=== PATIENT | male | born 1945 | race Caucasian/White ===

== ENCOUNTER → 2016-04-23 | Outpatient (CLI) | payer MEDICARE, BC | END | disposition home or self-care (01) | LOC: LABWHC1 08:52 | PROVIDERS: ATTEND Internal Medicine | DX: N40.1 Benign prostatic hyperplasia with lower urinary tract symptoms (principal) | CPT/HCPCS: 36415; 84153 ==

== ENCOUNTER 2016-05-01 11:22 | Day surgery (SDC) | payer MEDICARE, BC ==
[2016-04-30 10:16] VITALS: BMI 32.3
[~2016-05-01 11:22] MED LIST: LACTATED RINGERS 1,000 ML IV SCH
[2016-05-01 12:32] VITALS: TEMP 98
[2016-05-01] MEDS ORDERED: LIDOCAINE 1% 20 ML VIAL (10MG/ML) FOR IV START INTRADERMA ONE (12:32)
[2016-05-01] MEDS ORDERED: LACTATED RINGERS 1,000 ML IV ONE (12:32)
[2016-05-01 12:38] LABS: Glucose,Whole Blood 140 mg/dL (75-99)
[2016-05-01] MEDS ORDERED: MIDAZOLAM 2 MG/2 ML VIAL ONE (13:20)
[2016-05-01] MEDS ORDERED: fentaNYL (PF) 50 MCG/ML 2 ML AMP ONE (13:20)
[2016-05-01] MEDS ORDERED: TRIAMCINOLONE ACETONIDE 40 MG/ML 1 ML VIAL ONE (13:20)
--- NOTE | 2016-05-01 13:35 | P.PCN ---
Date of Procedure: 05/01/16 Procedure(s) Performed: PREOPERATIVE DIAGNOSIS : 1- Lumbar spondylosis with Facet Arthropathy without myelopathy . 2- Lumber degenerative disc disease POSTOPERATIVE DIAGNOSIS: 1- Lumbar spondylosis with Facet Arthropathy without myelopathy . 2- Lumber degenerative disc disease PROCEDURE: Diagnostic Right L3 -4 , L4 -5 , and L5-S1 medial branch block under fluoroscopy #1 ANESTHESIA: Local with 1% lidocaine; IV sedation with Versed 2 mg and Fentanyl 50 mcg. EBL: Minimal COMPLICATION: None. IV FLUIDS: 100 mL of normal saline. PROCEDURE INDICATION: Chronic low back pain secondary to Facet arthropathy unresponsive to conservative treatment. PROCEDURE DESCRIPTION: the patient was seen and identified in the preop holding area , risks and benefits and possible complications of the procedure and alternative were discussed with the patient, and the patient agreed to proceed with the procedure and signed the consent IV was started and vital signs monitored during the procedure and fluoroscopy was used to maximize the benefit and accuracy of the needle placement, and sedation was given to decrease patient anxiety, patient was taken to the procedure room and placed in prone position vital signs monitored in the back prepped with chlorhexidine X3 then under strict sterile technique using a right oblique fluoroscopy ,the junction of the transverse process and the superior articulating process of the right L3- 4 , L4- 5, and L5-S1 vertebra which corresponding to the fluoroscopy image of the eye of the Donavon dog on the block side for the medial branches and subsequently , after local infiltration of skin and subcu tissuies with lidocaine 1% one mL at each level ,then 22- gauge Quincke-type needles , 3 needle was used , each one of them placed at the junction of the base of the transverse process and the superior articular process at the appropriate level, and the needle was advanced until the periosteum contacted, needle placement confirmed with AP oblique and lateral view and after appropriate needle placement confirmed, and after negative aspiration for heme and CSF and there was no paresthesia 1-1/2 mL of Marcaine 0.5% mixed with 40 mg Kenalog , then half mL injected at each level after negative aspiration, the needle subsequently removed . At the end of the procedure and the needles removed and a bandage applied after the skin was cleaned the cleaning solution patient taken to recovery room in stable condition and monitors in the recovery room for 20-30 minutes and discharged home in stable condition after discharge criteria met and patient will follow up with the pain clinic in 2-4 weeks
[2016-05-01] MEDS ORDERED: IV FLUID CONTINUATION 1,000 ML IV ONE (13:44)
[2016-05-01 13:47] VITALS: RESP 16
[2016-05-01 13:59] VITALS: BP 123/75; PULSE 57
[2016-05-01 14:08] LABS: Glucose,Whole Blood 133 mg/dL (75-99)
--- NOTE | 2016-05-01 14:12 | FL ---
EXAMINATION TYPE: FL guided pain mgmt statistic DATE OF EXAM: 05/01/2016 1:38 PM COMPARISON: NONE HISTORY: Back pain Fluoroscopy support supplied to the referring clinician. See dictated report from anesthesia, 3 seco nds fluoroscopy time, 2 intraoperative C-arm images document the procedure
== END 2016-05-01 14:25 | disposition home or self-care (01) ==
LOC: ORPAIN 11:22
PROVIDERS: ATTEND Specialist
DX: G89.29 Other chronic pain (principal); M46.86 Other specified inflammatory spondylopathies, lumbar region; M47.816 Spondylosis without myelopathy or radiculopathy, lumbar region; M51.36 Other intervertebral disc degeneration, lumbar region
CPT/HCPCS: 64493; 64494; 64495; J2250; J3301; J3010

== ENCOUNTER → 2016-05-07 | Outpatient (CLI) | payer MEDICARE, BC ==
[2016-05-07 08:57] LABS: ALT 39 U/L (21-72); AST 19 U/L (17-59); Alkaline Phosphatase 66 U/L (38-126); Anion Gap 12 mmol/L; Blood Urea Nitrogen 21 mg/dL (9-20); Calcium 9.5 mg/dL (8.4-10.2); Carbon Dioxide 27 mmol/L (22-30); Chloride 102 mmol/L (98-107); Cholesterol 147 mg/dL (<200); Creatine Kinase 97 U/L (55-170); Glucose 140 mg/dL (74-99); HDL Cholesterol 49 mg/dL (40-60); Non-African American GFR(MDRD) >60 (>60 ml/min/1.73 sqM); Potassium 4.8 mmol/L (3.5-5.1); Sodium 141 mmol/L (137-145); Total Bilirubin 1.1 mg/dL (0.2-1.3); Total Protein 7.4 g/dL (6.3-8.2); Triglycerides 161 mg/dL (<150)
[2016-05-07 09:28] LABS: Hepatitis B Core IgM Index 0.04
[2016-05-07 09:40] LABS: Hepatitis C Virus IgG Index 0.01
[2016-05-07 09:43] LABS: Basophils % (A) 0 %; CH 30.7; Eosinophils % (A) 0 %; HCT 50.3 % (39.0-53.0); HGB 16.1 gm/dL (13.0-17.5); Luc # (Auto) 0.15; Luc % (Auto) 2; Lymphocytes # (A) 2.6 k/uL (1.0-4.8); Lymphocytes % (A) 26 %; MCHC 32.1 g/dL (31.0-37.0); MCV 93.5 fL (80.0-100.0); Mean Platelet Volume 9.9; Monocytes # (A) 0.7 k/uL (0-1.0); Monocytes % (A) 7 %; Neutrophils # (A) 6.5 k/uL (1.3-7.7); Neutrophils % (A) 65 %; RBC 5.38 m/uL (4.30-5.90); RDW 13.8 % (11.5-15.5); WBC (Perox) 10.43
[2016-05-07 09:51] LABS: Hepatitis B Surface Antibody Negative (Negative); Hepatitis C Virus IgG Ab Negative (Negative)
[2016-05-07 10:08] LABS: Manual Review Performed; RBC Morphology Normal
[2016-05-07 10:56] LABS: Hemoglobin A1C 7.1 % (4.2-6.1)
[2016-05-08 17:15] LABS: LOG HIV Copies/mL <1.60 (<1.60)
== END | disposition home or self-care (01) ==
LOC: LABWHC1 07:31
PROVIDERS: ATTEND Internal Medicine
DX: I10 Essential (primary) hypertension (principal); E78.00 Pure hypercholesterolemia, unspecified; E11.9 Type 2 diabetes mellitus without complications; K75.9 Inflammatory liver disease, unspecified
CPT/HCPCS: 36415; 80053; 80061; 82550; 83036; 84443; 85025; 86704; 86705; 86706; 86708; 86803; 87536

== ENCOUNTER → 2016-05-14 | Outpatient (CLI) | payer MEDICARE, BC ==
[2016-05-14 10:07] LABS: Blood Urea Nitrogen 31 mg/dL (9-20); Non-African American GFR(MDRD) >60 (>60 ml/min/1.73 sqM)
--- NOTE | 2016-05-14 12:20 | CT ---
EXAMINATION TYPE: CT pelvis w con DATE OF EXAM: 05/14/2016 12:01 PM COMPARISON: CT right hip 11/14/2012 HISTORY: Patient complains of elevated PSA. CT DLP: 1044.5 mGycm Automated exposure control for dose reduction was used. CONTRAST: Performed with IV Contrast, patient injected with 100 mL of Omnipaque 300. FINDINGS: There is a mesenteric fat containing periumbilical hernia present. No loops of bowel are involved. Co rtical renal cysts are in the mid portions of the bilateral kidneys. This cannot be well evaluated on the left and a simple cyst cannot be confirmed. On the right this measures 1.7 cm and 11 Hounsfield units. Vascular calcifications within the aorta. Inferior vena cava is normal. External iliac common femoral arteries appear normal. Vascular calcification is present. Fat-containing inguinal hernias are prese nt, larger on the right. Small lymph nodes in the right inguinal region. There is diverticular change within the sigmoid colon. Small bowel loops distended with oral contrast appear normal. The appendix is not clearly identified. Urinary bladder is unremarkable. Prostate is prominent and contains scattered calcification. This may have enlarged from the right hip CT of 11/14/2012. Tiny bone island may be within the posterior left acetabulum. Tiny bone islands in the lateral right shoulder ramus there is a 1.0 cm sclerotic area within the medial right ischial ramus. Facet degenera tive changes are present. IMPRESSION: 1. ENLARGED PROSTATE WITH SCATTERED CALCIFICATION. 2. A FEW SMALL BONE ISLANDS. SCLEROTIC METASTASIS WITHIN THE RIGHT ILIUM AT SACROILIAC JOINT IS NOT E XCLUDED
--- NOTE | 2016-05-14 14:57 | NM ---
EXAMINATION TYPE: NM bone scan whole body DATE OF EXAM: 05/14/2016 2:32 PM COMPARISON: CT pelvis same date, MR lumbar spine 23 January 2016 HISTORY: Prostate carcinoma Delayed whole-body scanning was performed following the injection of 27.49 mCi Tc 99m MDP. Images ac quired 4.5 hours post injection. FINDINGS: There is uptake present in the cervical spine, bilateral shoulders, lumbar spine, ankles, feet, knees , wrists, hands, right hip and elbows which is likely degenerative. Soft tissue uptake is normal. Pos terior rib uptake at the 8th through 10th ribs on the left is likely due to old fractures, correlate. There is a spinal curvature as noted on the patient's lumbar MRI. IMPRESSION: Degenerative changes. Old trauma.
== END | disposition home or self-care (01) ==
LOC: RADCTMAIN 09:18
PROVIDERS: ATTEND Urology
DX: C61 Malignant neoplasm of prostate (principal); M89.8X9 Other specified disorders of bone, unspecified site
CPT/HCPCS: 82565; 84520; 72193; 36415; 78306; A9503; Q9967

== ENCOUNTER 2016-05-21 06:55 | Day surgery (SDC) | payer MEDICARE, BC ==
[2016-05-20 12:07] VITALS: BMI 30.9
[2016-05-21] MEDS ORDERED: LACTATED RINGERS 1,000 ML IV SCH (07:00)
[2016-05-21 07:32] VITALS: RESP 18; TEMP 98.4
[2016-05-21 07:43] LABS: Glucose,Whole Blood 128 mg/dL (75-99)
[2016-05-21] MEDS ORDERED: MIDAZOLAM 2 MG/2 ML VIAL ONE (08:03)
[2016-05-21] MEDS ORDERED: TRIAMCINOLONE ACETONIDE 40 MG/ML 1 ML VIAL ONE (08:03)
[2016-05-21] MEDS ORDERED: BUPIVACAINE (PF) 0.5% 30 ML VIAL ONE (08:03)
--- NOTE | 2016-05-21 08:23 | P.PCN ---
Date of Procedure: 05/21/16 Procedure(s) Performed: PREOPERATIVE DIAGNOSIS : 1- Lumbar spondylosis with Facet Arthropathy without myelopathy . 2- Lumber degenerative disc disease POSTOPERATIVE DIAGNOSIS: 1- Lumbar spondylosis with Facet Arthropathy without myelopathy . 2- Lumber degenerative disc disease PROCEDURE: Diagnostic right side L3 -4 , L4 -5 , and L5-S1 medial branch block under fluoroscopy ANESTHESIA: Local with 1% lidocaine; IV sedation with Versed 2 mg and Fentanyl 50 mcg. EBL: Minimal COMPLICATION: None. IV FLUIDS: 100 mL of normal saline. PROCEDURE INDICATION: Chronic low back pain secondary to Facet arthropathy unresponsive to conservative treatment. PROCEDURE DESCRIPTION: the patient was seen and identified in the preop holding area , risks and benefits and possible complications of the procedure and alternative were discussed with the patient, and the patient agreed to proceed with the procedure and signed the consent IV was started and vital signs monitored during the procedure and fluoroscopy was used to maximize the benefit and accuracy of the needle placement, and sedation was given to decrease patient anxiety, patient was taken to the procedure room and placed in prone position vital signs monitored in the back prepped with chlorhexidine X3 then under strict sterile technique using a right oblique fluoroscopy ,the junction of the transverse process and the superior articulating process of the right L3- 4 , L4- 5, and L5-S1 vertebra which corresponding to the fluoroscopy image of the eye of the Donavon dog on the block side for the medial branches and subsequently , after local infiltration of skin and subcu tissuies with lidocaine 1% one mL at each level ,then 22- gauge Quincke-type needles , 3 needle was used , each one of them placed at the junction of the base of the transverse process and the superior articular process at the appropriate level, and the needle was advanced until the periosteum contacted, needle placement confirmed with AP oblique and lateral view and after appropriate needle placement confirmed, and after negative aspiration for heme and CSF and there was no paresthesia 1-1/2 mL of Marcaine 0.5% mixed with 40 mg Kenalog , then half mL injected at each level after negative aspiration the needle subsequently removed intact At the end of the procedure and the needles removed and a bandage applied after the skin was cleaned the cleaning solution patient taken to recovery room in stable condition and monitors in the recovery room for 20-30 minutes and discharged home in stable condition after discharge criteria met and patient will follow up with the pain clinic in 2-4 weeks
[2016-05-21] MEDS ORDERED: IV FLUID CONTINUATION 1,000 ML IV ONE (08:28)
[2016-05-21 08:46] VITALS: BP 118/75; PULSE 60
--- NOTE | 2016-05-21 08:47 | FL ---
EXAMINATION TYPE: FL guided pain mgmt statistic DATE OF EXAM: 05/21/2016 8:35 AM HISTORY: Flouroscopy time 3 seconds of fluoroscopy provided. IMPRESSION: 1. Fluoroscopy time.
== END 2016-05-21 09:10 | disposition home or self-care (01) ==
LOC: ORPAIN 06:55
PROVIDERS: ATTEND Specialist
DX: M47.816 Spondylosis without myelopathy or radiculopathy, lumbar region (principal); M46.96 Unspecified inflammatory spondylopathy, lumbar region; M51.36 Other intervertebral disc degeneration, lumbar region; G89.29 Other chronic pain
CPT/HCPCS: 64493; 64494; 64495; J2250; J3301

== ENCOUNTER 2016-06-15 08:01 | Day surgery (SDC) | payer MEDICARE, BC ==
[2016-06-12 10:40] VITALS: BMI 29.7
[2016-06-15 09:24] VITALS: RESP 16; TEMP 97.9
[2016-06-15 09:35] LABS: Glucose,Whole Blood 115 mg/dL (75-99)
[2016-06-15] MEDS ORDERED: LIDOCAINE 1% 20 ML VIAL (10MG/ML) FOR IV START INTRADERMA ONE (09:36)
[2016-06-15] MEDS ORDERED: fentaNYL (PF) 50 MCG/ML 2 ML AMP ONE (09:41)
[2016-06-15] MEDS ORDERED: TRIAMCINOLONE ACETONIDE 40 MG/ML 1 ML VIAL ONE (09:41)
[2016-06-15] MEDS ORDERED: MIDAZOLAM 2 MG/2 ML VIAL ONE (09:41)
--- NOTE | 2016-06-15 10:09 | P.PCN ---
Date of Procedure: 06/15/16 Surgeon: Chris Pavon Pathology: none sent Condition: stable Disposition: PACU Description of Procedure: PREOPERATIVE DIAGNOSIS: Lumbar spondylosis without myelopathy and facet arthropathy POSTOPERATIVE DIAGNOSIS: Lumbar spondylosis without myelopathy and facet arthropathy PROCEDURES: Right Radiofrequency thermocoagulation, L3, L4, and L5 medial branch , with fluoroscopic guidance. ANESTHESIA: 1% lidocaine plain; Conscious sedation with versed/fentanyl EBL: Minimal PROCEDURE INDICATION: The patient with low back pain secondary to lumbar arthropathy who had more than 50% relief of pain with previous diagnostic lumbar medial branch block with bupivacaine. Patient presents for RFA today; no use of blood thinners. PROCEDURE DESCRIPTION / TECHNIQUE: The patient was seen and identified in the preoperative area. Risks, benefits, complications, and alternatives were discussed with the patient (including but not limited to incomplete pain relief , bleeding, infection, nerve damage, and allergies to medications), the patient agreed to proceed with the procedure and signed the consent after all questions were answered. Patient was taken to the OR and time out was completed to verify proper patient , position, laterality of pain, and allergies. Pt was placed in the prone position. IV was started. Vital signs remained stable throughout the procedure. A pillow was placed under the patients chest to decrease lordosis. The lumbosacral area was prepped and draped in the usual sterile fashion. Vital signs were closely monitored during the procedure. Conscious sedation was used during the procedure to decrease patients anxiety. Using AP and then oblique fluoroscopy, the eye of the Donavon dog corresponding to the connection between the superior and transverse articular processes of right L4, L5 and top of the sacrum were identified, marked, and localized with 1% lidocaine. Subsequently, a 20 gauge, 100-mm radiofrequency cannula with a 10-mm active tip was advanced guided by fluoroscopy to each of the eyes of the Donavon dog at right L3, L4, and L5 medial branches. Each site then underwent sensory testing at 50 Hz and 0 to 1 volt and motor testing at 2 Hz and 0 to 3 volt with local stimulation, but no radicular symptoms down the legs. Thereafter the right L3, L4, and L5 medial branch sites underwent radiofrequency thermocoagulation at 80 degrees Celsius for 90 seconds after injecting 0.5 ml of PF lidocaine 1%. After thermocoagulation, 1 ml of the block solution containing Kenalog 40 mg and 2 mL of preservative-free normal saline was injected at the right L3, L4, and L5 medial branch levels after negative aspiration of CSF and blood and with no paresthesias. Cannulas were retracted while injecting lidocaine 1% until the needles were removed. At the end of the procedure, the skin was cleansed and bandages were applied. COMPLICATIONS: No acute complications. DISPOSITION / PLANS: The patient was placed in a supine position and transferred to the recovery area in a stable condition for observation and was discharged from the recovery room after meeting discharge criteria. Home discharge instructions given to the patient by the staff. The patient was reexamined prior to discharge. The patient will schedule a follow up in the clinic in 2-4 weeks.
[2016-06-15] MEDS ORDERED: IV FLUID CONTINUATION 1,000 ML IV ONE (10:11)
[2016-06-15 10:33] VITALS: BP 118/72; PULSE 61
--- NOTE | 2016-06-15 12:00 | FL ---
Fluoroscopy HISTORY: Pain 23 seconds fluoroscopy time supplied to the referring clinician. 4 intraoperative C-arm images docum ent the procedure. See dictated report from anesthesia.
== END 2016-06-15 10:44 | disposition home or self-care (01) ==
LOC: ORPAIN 08:01
PROVIDERS: ATTEND Anesthesiology
DX: M47.816 Spondylosis without myelopathy or radiculopathy, lumbar region (principal); M46.96 Unspecified inflammatory spondylopathy, lumbar region
CPT/HCPCS: 64635; 64636; 99152; J2250; J3301; J3010

== ENCOUNTER 2016-07-05 09:47 | Emergency (ER) | payer MEDICARE, BC ==
[2016-07-05] MEDS ORDERED: ONDANSETRON 4 MG/2 ML VIAL IVP STA (10:20)
[2016-07-05] MEDS ORDERED: MORPHINE SULFATE 2 MG/ML SYRINGE IVP ONE (10:20)
[2016-07-05] MEDS ORDERED: RX INFO: IV CONTRAST WAS GIVEN 1 EACH MISC MISCELLANE PRN (10:20)
[2016-07-05] MEDS ORDERED: DIPH,PERTUS(ACELL)TETVAC-LF 0.5 ML VIAL IM ONE (10:20)
--- NOTE | 2016-07-05 10:28 | ED ---
Trauma HPI - General Chief Complaint: Extremity Injury, Upper Stated Complaint: RT SIDE RIB PAIN FROM FALL HITTING TV STAND Source: patient Mode of arrival: ambulatory Limitations: no limitations - History of Present Illness Initial Comments: Patient is a pleasant 70-year-old male who presents for evaluation after a fall from a 2 foot stepladder. Past medical history as below. Patient stated that he was replacing a light fixture. He walked up a step stool with a leg fracture in his hand he looked up he became dizzy and fell backwards striking a TV table and landing on a carpeted surface. There is a small abrasion to the right face next to his eye. There was no loss of consciousness. After the fall he had pain to his right chest. He is able to get up after resting briefly and was ambulatory after. He states that it is hard to breathe secondary to the pain to the right chest. He is not on an aspirin or blood thinner. He denies fever, chills, headaches, changes in vision, URI symptoms, cough, nausea, vomiting, diarrhea, abdominal pain, pain or burning with urination. - Related Data Home Medications Medication Instructions Recorded Confirmed HYDROcodone/APAP 10-325MG [[place] 10 mg PO Q6H PRN 08/28/13 07/05/16 10-325] Multivitamin/Iron/Folic Acid 1 tab PO DAILY 08/28/13 07/05/16 [Centrum Complete Multivit Tab] Atorvastatin Calcium [Lipitor] 40 mg PO QAM 11/01/14 07/05/16 Naproxen Sodium [Aleve] 220 mg PO BID PRN 08/12/15 07/05/16 amLODIPine BESYLATE/BENAZEPRIL 1 tab PO DAILY 10/29/15 07/05/16 [Lotrel 5-20 mg Capsule] Bisoprolol Fumarate 10 mg PO DAILY 11/26/15 07/05/16 sitaGLIPtin PHOS/metFORMIN HCL 1 tab PO DAILY 11/26/15 07/05/16 [Janumet 50-500 mg Tablet] Previous Rx's Medication Instructions Recorded Cephalexin [Keflex] 500 mg PO Q12HR 7 Days 07/05/16 Docusate [Colace] 100 mg PO DAILY 10 Days 07/05/16 HYDROcodone/APAP 5-325MG [[place] 1 - 2 tab PO Q6HR PRN #20 tab 07/05/16 5-325] Allergies Allergy/AdvReac Type Severity Reaction Status Date / Time No Known Allergies Allergy Verified 07/05/16 11:34 Review of Systems ROS Statement: Those systems with pertinent positive or pertinent negative responses have been documented in the HPI. ROS Other: All systems not noted in ROS Statement are negative. Past Medical History Past Medical History: Coronary Artery Disease (CAD), Diabetes Mellitus, GERD/ Reflux, Hyperlipidemia, Hypertension, Osteoarthritis (OA), Prostate Disorder Additional Past Medical History / Comment(s): 5 Herniated disc in neck causing headaches & numbness in arm- NOW LOWER BACK PAIN- NUMBNESS FROM LT ANKLE DOWN. hx 4 fx ribs History of Any Multi-Drug Resistant Organisms: None Reported Past Surgical History: Heart Catheterization With Stent, Orthopedic Surgery, Prostate Surgery Additional Past Surgical History / Comment(s): PROSTATE BX., LT. KNEE ARTHROSCOPY X 2, CERVICAL FUSION, COLONOSCOPY. ÁNGEL. CATARTACTS, Past Anesthesia/Blood Transfusion Reactions: No Reported Reaction Date of Last Stent Placement:: 1999 Past Psychological History: Anxiety, Depression Smoking Status: Former smoker Past Alcohol Use History: None Reported Additional Past Alcohol Use History / Comment(s): QUIT SMOKING 1984, "light smoker" Past Drug Use History: None Reported - Past Family History Mother Family Medical History: Cancer Additional Family Medical History / Comment(s): UTERINE General Exam Limitations: no limitations General appearance: alert, in no apparent distress, other (No acute distress.) Head exam: Present: normocephalic, other (Abrasion to the lateral right eye.) Eye exam: Present: normal appearance, PERRL, EOMI. Absent: scleral icterus, conjunctival injection, periorbital swelling ENT exam: Present: normal exam, mucous membranes moist Neck exam: Present: normal inspection, other (No midline tenderness. Cleared C- spine clinically. Removed from c-collar.). Absent: tenderness, meningismus, lymphadenopathy Respiratory exam: Present: normal lung sounds bilaterally, other (Clear breath sounds bilaterally. He has pain with palpation on the right rib cage. No conversational dyspnea. No hypoxia.). Absent: respiratory distress, wheezes, rales, rhonchi, stridor Cardiovascular Exam: Present: regular rate, normal rhythm, normal heart sounds, other (Normal S1 and S2. Distal pulses intact.). Absent: systolic murmur, diastolic murmur, rubs, gallop, clicks GI/Abdominal exam: Present: soft, tenderness, normal bowel sounds, other ( Patient has some generalized tenderness to palpation of his abdomen. He states that it is not painful and he refers to his right chest when I palpate his abdomen. There is no peritoneal signs.). Absent: distended, guarding, rebound , rigid Extremities exam: Present: normal inspection, full ROM, normal capillary refill. Absent: tenderness, pedal edema, joint swelling, calf tenderness Back exam: Present: normal inspection, tenderness, other (There is pain with palpation T4 to T11. No significant pain with palpation of the cervical spine of the lumbar spine.) Neurological exam: Present: alert, oriented X3, CN II-XII intact, other ( Cranial nerves II through XII grossly intact without focal neurological deficits. Mentation is appropriate. Alert and oriented 3. GCS 15. Moves all 4 extremities.) Psychiatric exam: Present: normal affect, normal mood Skin exam: Present: warm, dry, intact, normal color, other (There is a linear laceration to his right upper back. Roughly 4-5 cm in length.). Absent: rash Course Vital Signs 07/05/16 07/05/16 07/05/16 09:54 12:25 13:14 Temperature 97.4 F L 97.4 F L 97.9 F Pulse Rate 77 64 65 Respiratory 24 16 18 Rate Blood Pressure 164/95 127/74 128/76 O2 Sat by Pulse 95 95 97 Oximetry 07/05/16 15:35 Temperature 97.3 F L Pulse Rate 73 Respiratory 18 Rate Blood Pressure 141/75 O2 Sat by Pulse 96 Oximetry Medical Decision Making - Medical Decision Making Patient resents for evaluation after mechanical fall from a 2 foot stepladder. No aspirins or thinners. No loss of consciousness or neurological deficits at this time. Concern for trauma to the chest. We'll order CT brain and cervical spine. We'll also order CT chest abdomen and pelvis with recon to the thoracic spine. Trauma labs with EKG and urinalysis. Morphine. Zofran. Tdap. 1038: Reviewed EKG. Normal sinus rhythm without ST changes. Heart rate 70. OR 170. QRS 82. QTc 425. No ST changes. 1108: Reviewed initial labs. Within normal limits. No elevated liver enzymes. Awaiting CT imaging. 1321: Delay in getting images sent. Reviewed images myself. Awaiting final reading by radiologist. 1402: Radiologist reviewed CT cervical spine and CT brain. No acute fracture dislocation of the cervical spine. No bleed in the brain. 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 Awaiting for CT reads of the chest abdomen and pelvis with recon's of the thoracic spine. 1445: Reviewed rest of CT imaging. There appears to be a questionable nondisplaced right 11th rib fracture. No other acute injury noted. Discussed all findings with the patient. Thoroughly irrigated his superficial laceration/ skin abrasion. Repaired with Steri-Strips and Dermabond as it was not deep. Tolerated well. Discussed that he has a single rib fracture on the right in the area of trauma. Stable for discharge home with pain medications. We'll alternate [place] and Motrin. We'll also provide an incentive spirometer with teaching prior to discharge. Will use 10 times an hour. We'll also provide a stool softener. We'll also discharge with a short course of Keflex for the laceration. Patient has follow-up with his primary care physician tomorrow. Because of which, feel comfortable letting the patient go home as he has close reevaluation within 24 hours. Discussed signs and symptoms of cellulitis and severe infection. Will return immediately if he develops any. Also discussed rest at length rib fracture care and the importance of preventing atelectasis/ pneumonia with incentive spirometry. Patient voiced understanding. 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 It was noted on previous CT imaging as well. Encouraged to discuss with his primary care physician tomorrow with possible outpatient evaluation by neurosurgery if they feel it is appropriate. Patient was able to repeat the plan. Comfortable with discharge home and will go see his primary care physician at his regular scheduled appointment tomorrow. All questions answered. - Lab Data Result diagrams: 07/05/16 10:30 07/05/16 10:30 Lab Results 07/05/16 07/05/16 07/05/16 Range/Units 10:30 10:30 10:30 WBC 7.9 (3.8-10.6) k/uL RBC 5.35 (4.30-5.90) m/uL Hgb 16.2 (13.0-17.5) gm/dL Hct 49.2 (39.0-53.0) % MCV 92.0 (80.0-100.0) fL MCH 30.3 (25.0-35.0) pg MCHC 32.9 (31.0-37.0) g/dL RDW 14.2 (11.5-15.5) % Plt Count 280 D (150-450) k/uL Neutrophils % 68 % Lymphocytes % 24 % Monocytes % 6 % Eosinophils % 0 % Basophils % 0 % Neutrophils # 5.4 (1.3-7.7) k/uL Lymphocytes # 1.9 (1.0-4.8) k/uL Monocytes # 0.4 (0-1.0) k/uL Eosinophils # 0.0 (0-0.7) k/uL Basophils # 0.0 (0-0.2) k/uL Sodium 141 (137-145) mmol/L Potassium 4.7 (3.5-5.1) mmol/L Chloride 102 (98-107) mmol/L Carbon Dioxide 25 (22-30) mmol/L Anion Gap 14 mmol/L BUN 19 (9-20) mg/dL Creatinine 0.93 (0.66-1.25) mg/dL Est GFR (MDRD) Af Amer >60 (>60 ml/min/1.73 sqM) Est GFR (MDRD) Non-Af >60 (>60 ml/min/1.73 sqM) Glucose 200 H (74-99) mg/dL Calcium 9.8 (8.4-10.2) mg/dL Total Bilirubin 0.9 (0.2-1.3) mg/dL AST 23 (17-59) U/L ALT 48 (21-72) U/L Alkaline Phosphatase 72 (38-126) U/L Troponin I <0.012 (0.000-0.034) ng/mL Total Protein 7.5 (6.3-8.2) g/dL Albumin 4.4 (3.5-5.0) g/dL Urine Color Urine Appearance (Clear) Urine pH (5.0-8.0) Ur Specific [place] (1.001-1.035) Urine Protein (Negative) Urine Glucose (UA) (Negative) Urine Ketones (Negative) Urine Blood (Negative) Urine Nitrite (Negative) Urine Bilirubin (Negative) Urine Urobilinogen (<2.0) mg/dL Ur Leukocyte Esterase (Negative) Urine RBC (0-5) /hpf Urine WBC (0-5) /hpf Ur Squamous Epith Cells (0-4) /hpf Urine Bacteria (None) /hpf Hyaline Casts (0-2) /lpf Urine Mucus (None) /hpf 07/05/16 Range/Units 11:52 WBC (3.8-10.6) k/uL RBC (4.30-5.90) m/uL Hgb (13.0-17.5) gm/dL Hct (39.0-53.0) % MCV (80.0-100.0) fL MCH (25.0-35.0) pg MCHC (31.0-37.0) g/dL RDW (11.5-15.5) % Plt Count (150-450) k/uL Neutrophils % % Lymphocytes % % Monocytes % % Eosinophils % % Basophils % % Neutrophils # (1.3-7.7) k/uL Lymphocytes # (1.0-4.8) k/uL Monocytes # (0-1.0) k/uL Eosinophils # (0-0.7) k/uL Basophils # (0-0.2) k/uL Sodium (137-145) mmol/L Potassium (3.5-5.1) mmol/L Chloride (98-107) mmol/L Carbon Dioxide (22-30) mmol/L Anion Gap mmol/L BUN (9-20) mg/dL Creatinine (0.66-1.25) mg/dL Est GFR (MDRD) Af Amer (>60 ml/min/1.73 sqM) Est GFR (MDRD) Non-Af (>60 ml/min/1.73 sqM) Glucose (74-99) mg/dL Calcium (8.4-10.2) mg/dL Total Bilirubin (0.2-1.3) mg/dL AST (17-59) U/L ALT (21-72) U/L Alkaline Phosphatase (38-126) U/L Troponin I (0.000-0.034) ng/mL Total Protein (6.3-8.2) g/dL Albumin (3.5-5.0) g/dL Urine Color Yellow Urine Appearance Cloudy (Clear) Urine pH 5.0 (5.0-8.0) Ur Specific [place] 1.022 (1.001-1.035) Urine Protein 1+ H (Negative) Urine Glucose (UA) Trace H (Negative) Urine Ketones Negative (Negative) Urine Blood Negative (Negative) Urine Nitrite Negative (Negative) Urine Bilirubin Negative (Negative) Urine Urobilinogen <2.0 (<2.0) mg/dL Ur Leukocyte Esterase Negative (Negative) Urine RBC 1 (0-5) /hpf Urine WBC 4 (0-5) /hpf Ur Squamous Epith Cells <1 (0-4) /hpf Urine Bacteria Rare H (None) /hpf Hyaline Casts 29 H (0-2) /lpf Urine Mucus Few H (None) /hpf Disposition Clinical Impression: Rib fracture, Fall, Laceration, Abrasion Disposition: HOME SELF-CARE Condition: Good Instructions: Abrasion (ED), Skin Adhesive Care (ED), Rib Fracture (ED) Prescriptions: Cephalexin [Keflex] 500 mg PO Q12HR 7 Days Docusate [Colace] 100 mg PO DAILY 10 Days HYDROcodone/APAP 5-325MG [[place] 5-325] 1 - 2 tab PO Q6HR PRN #20 tab PRN Reason: Pain Referrals: German Astudillo MD [Primary Care Provider] - 1-2 days
[2016-07-05 10:49] LABS: Basophils % (A) 0 %; CH 31.1; Eosinophils % (A) 0 %; HCT 49.2 % (39.0-53.0); HGB 16.2 gm/dL (13.0-17.5); Luc # (Auto) 0.11; Luc % (Auto) 1; Lymphocytes # (A) 1.9 k/uL (1.0-4.8); Lymphocytes % (A) 24 %; MCH 30.3 pg (25.0-35.0); MCHC 32.9 g/dL (31.0-37.0); Mean Platelet Volume 7.2; Monocytes # (A) 0.4 k/uL (0-1.0); Monocytes % (A) 6 %; Neutrophils # (A) 5.4 k/uL (1.3-7.7); Neutrophils % (A) 68 %; RBC 5.35 m/uL (4.30-5.90); RDW 14.2 % (11.5-15.5); WBC 7.9 k/uL (3.8-10.6); WBC (Perox) 7.73
[2016-07-05 10:59] LABS: ALT 48 U/L (21-72); AST 23 U/L (17-59); Alkaline Phosphatase 72 U/L (38-126); Anion Gap 14 mmol/L; Blood Urea Nitrogen 19 mg/dL (9-20); Calcium 9.8 mg/dL (8.4-10.2); Carbon Dioxide 25 mmol/L (22-30); Chloride 102 mmol/L (98-107); Glucose 200 mg/dL (74-99); Non-African American GFR(MDRD) >60 (>60 ml/min/1.73 sqM); Potassium 4.7 mmol/L (3.5-5.1); Sodium 141 mmol/L (137-145); Total Bilirubin 0.9 mg/dL (0.2-1.3); Total Protein 7.5 g/dL (6.3-8.2)
--- NOTE | 2016-07-05 11:22 | XR ---
EXAMINATION TYPE: XR chest 1V portable DATE OF EXAM: 07/05/2016 10:48 AM COMPARISON: Prior chest x-ray 19 September 2013 HISTORY: Pain, trauma TECHNIQUE: Single frontal view of the chest is obtained. FINDINGS: Lung volumes are low. Patchy basilar density is present. No evident pneumothorax. Heart si ze may be accentuated by technique. IMPRESSION: Exam is limited technically. Expiratory rotated exam. Probable basilar atelectasis, foll ow-up PA and lateral chest x-ray as indicated.
[2016-07-05 12:20] LABS: Appearance,Urine Cloudy (Clear); Bacteria,Urine Rare /hpf; Bilirubin,Urine Negative (Negative); Glucose,Urine (UA) Trace (Negative); Ketones,Urine Negative (Negative); Leukocyte Esterase,Urine Negative (Negative); Mucus,Urine Few /hpf; Nitrite,Urine Negative (Negative); Particle Count 10451; Protein,Urine 1+ (Negative); RBC,Urine 1 /hpf (0-5); Specific Gravity,Urine 1.022 (1.001-1.035); Squamous Epithelial Cell,Urine <1 /hpf (0-4); UA Billing (MACRO vs. MICRO) MICRO; Urobilinogen,Urine <2.0 mg/dL (<2.0); WBC,Urine 4 /hpf (0-5)
[2016-07-05] MEDS ORDERED: MORPHINE SULFATE 4 MG/ML SYRINGE IVP STA (12:41)
[2016-07-05 13:16] VITALS: RESP 18
--- NOTE | 2016-07-05 13:44 | CT ---
EXAMINATION TYPE: CT brain cspine wo con DATE OF EXAM: 07/05/2016 1:18 PM COMPARISON: Prior head CT 26 July 2014 and prior MR cervical spine 31 Aug 2014 HISTORY: Fall from 2 feet. right sided rib pain CT DLP: 4518 mGycm Automated exposure control for dose reduction was used. TECHNIQUE: CT scan of the head and cervical spine are performed without contrast. FINDINGS: There is no acute intracranial hemorrhage, mass effect, or midline shift identified. The ventricles and sulci are within normal limits in size. Cerebral vascular calcifications are present. Some hyperintensity along the right frontal deep white matter may represent vascular malformation, similar appearance on prior exam. The globes are intact and the visualized sinuses are clear. Cervical spine is visualized in its entirety from C1 through upper thoracic levels and demonstrates s table alignment without evidence of acute fracture or dislocation. Status post fusion of the C5 and C 6 vertebral bodies are again noted. Prevertebral soft tissue appears within normal limits. Spondylos is is present at multiple levels, there is associated loss of disc height especially C3-4, C6-7 and C 7-T1 The C1-C2 articulation is unremarkable. Multilevel foraminal encroachment. No significant centra l canal stenosis. IMPRESSION: 1. There is no acute fracture or dislocation evident in the cervical spine. 2. No acute intracranial hemorrhage, mass effect, or midline shift is seen. Possible vascular malform ation right frontal lobe.
--- NOTE | 2016-07-05 13:58 | CT ---
EXAMINATION TYPE: CT ChestAbdPelvis w con DATE OF EXAM: 07/05/2016 1:19 PM COMPARISON: Prior CT pelvis 14 May 2016 HISTORY: Fall from 2 feet. Right sided rib pain CT DLP: 4518 mGycm Automated exposure control for dose reduction was used. CONTRAST: CT scan of the chest, abdomen and pelvis is performed without Oral Contrast and with IV Contrast, pat ient injected with 100 ml mL of Omnipaque 300. FINDINGS: LUNGS: The lungs are grossly clear, there is no concerning parenchymal mass or nodule identified. T here is no pleural effusion or pneumothorax seen. The tracheobronchial tree is patent. MEDIASTINUM: There are no greater than 1 cm hilar or mediastinal lymph nodes. No pericardial effusi on is seen. There are coronary artery calcifications. AORTA: No significant abnormality is seen. OTHER: No additional significant abnormality is seen. LIVER/GB: Liver shows low attenuation likely due to fatty infiltration. Gallbladder is absent. PANCREAS: No significant abnormality is seen. SPLEEN: No significant abnormality is seen. ADRENALS: No significant abnormality is seen. KIDNEYS: Cortical cysts are present bilaterally with no hydronephrosis. REPRODUCTIVE ORGANS: Prostate is enlarged and shows associated calcification. BOWEL: No significant abnormality is seen. FREE AIR: No Free Air visible. ASCITES: None seen. RETROPERITONEAL ADENOPATHY: No retroperitoneal adenopathy is seen. LYMPH NODES: No greater than 1 cm abdominal or pelvic lymph nodes are appreciated. URINARY BLADDER: Wall thickening is likely due to chronic outlet obstruction. PELVIC ADENOPATHY: None visualized. OSSEOUS STRUCTURES: No significant abnormality is seen. Old left-sided rib fractures seen posteriorl y on the left, at the 11th rib posteriorly on the left, there may be a small focus of cortical disrup tion. IMPRESSION: Suspect the fractures on the left posteriorly are old, correlate for point tenderness pos terior left 11th rib, no abnormal fluid collection, or evidence of solid organ injury in the thorax, abdomen, or pelvis.
--- NOTE | 2016-07-05 14:08 | CT ---
EXAMINATION TYPE: CT thoracic spine wo con DATE OF EXAM: 07/05/2016 1:25 PM COMPARISON: CT chest abdomen pelvis same date HISTORY: Fall from 2 feet. Right sided rib pain CT DLP: 4518 mGycm Automated exposure control for dose reduction was used. Helical acquisition obtained through the thoracic spine. Coronal and sagittal reconstructions FINDINGS: Thoracic vertebral bodies show preserved height and alignment. There is multilevel spondylosis. Disc spaces are maintained. Multilevel facet arthropathy changes present. Cortical irregularity at the pos terior 11 rib on the left is thought to be well-corticated, difficult to exclude a nondisplaced fract ure however, old rib fractures present in the ninth 10th and eighth ribs posteriorly on the left. IMPRESSION: DEGENERATIVE DISC DISEASE. DIFFICULT TO EXCLUDE A POSTERIOR LEFT 11TH RIB FRACTURE
[2016-07-05] MEDS ORDERED: TOPICAL SKIN ADHESIVE 1 EACH AMP TOPICAL ONE (14:20)
[2016-07-05] MEDS ORDERED: HYDROcodone/APAP 5-325MG 1 EACH TAB PO STA (14:43)
[2016-07-05 15:37] VITALS: BP 141/75; PULSE 73; TEMP 97.3
== END 2016-07-05 15:37 | disposition home or self-care (01) ==
LOC: EC 09:47
DX: S22.31XA Fracture of one rib, right side, initial encounter for closed fracture (principal); S21.211A Laceration without foreign body of right back wall of thorax without penetration into thoracic cavity, initial encounter; E78.5 Hyperlipidemia, unspecified; I25.10 Atherosclerotic heart disease of native coronary artery without angina pectoris; E11.9 Type 2 diabetes mellitus without complications; I10 Essential (primary) hypertension; M19.90 Unspecified osteoarthritis, unspecified site; Z23 Encounter for immunization; Z87.891 Personal history of nicotine dependence; Z79.899 Other long term (current) drug therapy; Z79.84 Long term (current) use of oral hypoglycemic drugs; Z95.5 Presence of coronary angioplasty implant and graft; W11.XXXA Fall on and from ladder, initial encounter; Y93.89 Activity, other specified
CPT/HCPCS: 99284 ×2; 12002 ×2; 96374 ×2; 96375 ×2; 96376 ×2; 90471 ×2; 36415; 93005; 80053; 84484; 85025; 81001; 71010; 72128; 72125; 70450; 71260; 74177; 90715; J2270 ×2; J2405; Q9967

== ENCOUNTER → 2016-07-20 | Outpatient (CLI) | payer MEDICARE, BC ==
[2016-07-20 14:45] VITALS: BP 125/75; PULSE 74; RESP 16; TEMP 98
--- NOTE | 2016-07-20 20:00 | P.PN ---
Subjective This is follow-up visit for this patient with a history of severe and chronic low back pain secondary to lumbar degenerative disc disease lumbar facet arthropathy, we have done radiofrequency ablation of the median branch lumbar area, in May 2016 Patient reported that in 07/05/2016, he fell at home and he had rib fracture, and currently is complaining of severe chest wall pain The pain mostly on the right side(mid back area), is not detected to the upper or lower extremity, he denies any motor or sensory deficit The pain increases with any torso movement, and he is currently on pain medication Lindsay 10/325 every 6 hours, and naproxen 220 BID Patient denies any side effects of the medication, denies excessive drowsiness or sleepiness, denies suicidal ideation, and reports that the current pain medication is NOT helping To control the pain and improve activity of daily living Physical Examinations : 1-Constitutiona : Cooperative , not in acute distress . 2-HEENT : nech ; supple , no Lymphadenopathy , no Thyromegaly , normal thyroid size . eyes : no ptosis , no icterus, no photophobia . ENT : normal of hearing , normal oropharynx , no Thrush . 3- Respiratory : Chest clear to auscultations Bilaterally , no wheezing , no Rhonchi . 4- Cardiovascular : regular rate and rhythem , S1 , S2 , no S3 , no S4. 5- Gastrointestinal : abdomen soft no tenderness , bowel sounds positive all four quadrents , no organomegally . 6- Genitourinary : Defferred . 7- neurologic : Cranial nerve II to XII intact , no focal neurological deffecit . 8-psychatric : alert , oriented X 3 , appropriate affect , intact judgment and insight . 9-Lymphatic : no Lymphadenopathy . 10- musculoskeltal : exams of the cervical spine = motor strength normal bilateral upper extremities facet loading test cervical area positive. Exam of the thoracic spine and the chest wall = mid back right side skin laceration, and the healing process Mild erythema of the skin laceration area , no discharge , and there is severe tenderness in the posterior aspect of the thoracic spine On the right rib cage , exams of the Lumber spine = motor strength lower extremities ,thigh and legs .5/5 deep tendon reflexes : normal Knee Jerk , normal ankle Jerk . lumber facet Loading Test positive Assessment and plan = - Chronic low back pain secondary to lumbar degenerative disc disease , lumbar spondylosis with facet arthropathy without myelopathy , Status post radiofrequency ablation of the medial branch lumbar area ( RIGHT ) Currently is complaining of mid back pain which is musculoskeletal in nature, secondary to rib fracture, patient had CT Scan , and CT Of the chest, and it showed RIB fracture, and thoracic spine degeneration Recommend, discontinue naproxen, start patient on Mobic 7.5 mg twice a day, continue Lindsay 10/325 every 6 hours Start patient on lidocaine cream 4% 30 g to be applied twice a day to the mid back area (location of the rib fracture) The patient will follow up with the pain clinic in 4 weeks Objective - Vital Signs Vital signs: Vital Signs Temp 98.0 F 07/20/16 14:35 Pulse 74 07/20/16 14:35 Resp 16 07/20/16 14:35 BP 125/75 07/20/16 14:35 Pulse Ox 94 L 07/20/16 14:35 Intake & Output 07/20/16 07/20/16 07/21/16 06:59 18:59 06:59 Weight 105.233 kg
== END | disposition home or self-care (01) ==
LOC: PNWHC3 13:29
PROVIDERS: ATTEND Specialist
DX: M51.36 Other intervertebral disc degeneration, lumbar region (principal); M47.816 Spondylosis without myelopathy or radiculopathy, lumbar region; M46.96 Unspecified inflammatory spondylopathy, lumbar region; S22.39XA Fracture of one rib, unspecified side, initial encounter for closed fracture; W18.30XA Fall on same level, unspecified, initial encounter; Y93.9 Activity, unspecified; Y92.009 Unspecified place in unspecified non-institutional (private) residence as the place of occurrence of the external cause; Z79.899 Other long term (current) drug therapy
CPT/HCPCS: 99211

== ENCOUNTER → 2016-09-22 | Outpatient (CLI) | payer MEDICARE, BC ==
[2016-09-22 14:27] VITALS: BP 124/77; PULSE 63; RESP 16; TEMP 98.1
--- NOTE | 2016-09-22 14:51 | P.PN ---
Subjective This is all visit for this 71 years old male with a chronic history of severe low back pain secondary to lumbar degenerative disc disease and lumbar spondylosis, she used to have severe low back pain mainly on the right side, and we did diagnostic medial branch block lumbar area L3 to S1, and it was positive then later on we did radiofrequency ablation of the medial branch lumbar area, double floss ago he fell on his back, and he fractured one of his right ribs, and he reported that since that time he started complaining of severe low back pain on the left side, he denies any fever or night sweats he denies any motor or sensory deficit in his currently taking pain medication Union 10/325 every 6 hours, he denies any side effect of the medication he denies and excessive drowsiness or sleepiness, he denies any motor or sensory deficits and no change in the bowel movement or urination Objective - Vital Signs Vital signs: Vital Signs Temp 98.1 F 09/22/16 14:19 Pulse 63 09/22/16 14:19 Resp 16 09/22/16 14:19 BP 124/77 09/22/16 14:19 Pulse Ox 94 L 09/22/16 14:19 Intake & Output 09/21/16 09/22/16 09/22/16 18:59 06:59 18:59 Weight 108.862 kg - Exam Physical Examinations : 1-Constitutiona : Cooperative , not in acute distress . 2-HEENT : nech ; supple , no Lymphadenopathy , normal thyroid size . eyes : no ptosis , no icterus, no photophobia . ENT : normal of hearing , normal oropharynx , no Thrush . 3- Respiratory : Chest clear to auscultations Bilaterally , no wheezing , no Rhonchi . 4- Cardiovascular : regular rate and rhythem , S1 , S2 , no S3 , no S4. 5- Gastrointestinal : abdomen soft no tenderness , bowel sounds positive all four quadrents , no organomegally . 6- Genitourinary : Defferred . 7- neurologic : Cranial nerve II to XII intact , no focal neurological deffecit . 8-psychatric : alert , oriented X 3 , appropriate affect , intact judgment and insight . 9-Lymphatic : no Lymphadenopathy . 10- musculoskeltal : , Lumber spine = normal moter stegnth lower extremities ,thigh and legs .5/5 deep tendon reflexes : normal Knee Jerk , normal ankle Jerk . positive lumber facet Loading Test strait leg raising test positive at 30 degree , RT ,LT , Fabere test positive RT and positive LT . Assessment and Plan Plan: Assessment and plan = - Chronic low back pain secondary to lumbar degenerative disc disease , lumbar spondylosis with facet arthropathy without myelopathy , With done diagnostic medial branch block right side lumbar area and it was positive we did radiofrequency ablation of the medial branch lumbar area right side - diagnoses, prognosis, and treatment options including but not limited to physical therapy, surgical interventions, interventional therapies and medication management including narcotics and adjuvant medication were discussed with the patient and all questions answered to the patient's satisfaction. -medication refile = Union [id number] prescription from his primary care -procedure= scheduled patient to have diagnostic medial branch block lumbar area at L3-4/L4 5/L5-S1 on the left side x2 benefits possibly do the radiofrequency ablation medial branch lumbar area left side Time with Patient: Less than 30
== END ==
LOC: PNWHC3 13:35
PROVIDERS: ATTEND Specialist
DX: M51.36 Other intervertebral disc degeneration, lumbar region (principal); M47.816 Spondylosis without myelopathy or radiculopathy, lumbar region; M46.86 Other specified inflammatory spondylopathies, lumbar region; G89.29 Other chronic pain; Z79.891 Long term (current) use of opiate analgesic
CPT/HCPCS: 99211

== ENCOUNTER → 2016-10-13 | Outpatient (CLI) | payer MEDICARE, BC ==
[2016-10-13 13:31] VITALS: BP 143/86; PULSE 63; RESP 18; TEMP 98
--- NOTE | 2016-10-13 13:48 | P.PN ---
Progress Note - Text Patient returns for followup for chronic back pain with radiation to bilateral hips. Dr. Boudreaux recommended that the patient undergo left sided medial branch blocks but his insurance will not cover these procedures to be done until May 2017. Patient continues on [place] and Aleve medications from PCP for pain with good relief. Patient denies adverse drug effects from medications. Today, pt denies new-onset weakness, bowel/bladder incontinence, or any other signs or symptoms of cauda equina syndrome. There are no signs of acute intoxication, and no indications of medication diversion or overuse. In addition to above, 13-point review of systems is also negative for chest pain , shortness of breath, changes in vision, changes in hearing, new onset weakness , abdominal pain, diarrhea, extreme fatigue, malaise, fever, skin changes, homicidal or suicidal ideation, or bowel or bladder incontinence. Vital Signs: Reviewed in EMR Gen: WDWN, AAOx3, NAD HEENT: NCAT, EOMI, hearing grossly normal Pulm: resp unlabored Abd: soft, NT, ND Neck: supple, trachea midline ROM in flexion lumbar spine: reduced ROM in extension lumbar spine: reduced Lumbar paravertebral tenderness: + Facet loading: ++ bilateral SI joint tenderness: + L > R Shilo's test: + L > R side Straight leg raise: neg bilateral Neuro: CN II-XII grossly intact, muscle strength lower extremities PRESERVED Imaging: Reviewed in EMR Assessment: 1. lumbar spondylosis without myelopathy 2. sacroiliitis 3. chronic pain syndrome Plan: 1. Explanation: Opioid and psychological risk scores were reviewed. Diagnoses , prognoses, and multiple treatment options including but not limited to physical therapy, interventional therapies, adjuvant medical therapies, narcotic medication therapies, and surgery were discussed with the patient and all questions were answered to the patient's satisfaction. 2. Opioid agreement: no narcotics prescribed today 3. Counseling: The patient was counseled extensively on SMOKING CESSATION, BODY MASS INDEX, EXERCISE. Specifically, the patient was instructed regarding the importance of smoking cessation, obesity, and exercise in the context of both chronic pain and overall health. 4. Procedures: bilateral SIJ injection 5. Consultations: None 6. Investigations: None 7. Medications: none prescribed 8. Disposition: f/u for procedure as scheduled PQRS measures: 1-Patient's medications are documented in the chart. 2-Tobacco use is negative, counseling given 3-Patient has not had a pneumococcal vaccine. 4-Advanced care planning discussed, patient unable to give. 5-Opioid contract signed with the patient. 6-Pain positive, follow-up visit or procedure scheduled 7-Patient's blood pressure measured and documented, and patient will follow up with the primary care due to hypertension. 8-Patient's weight was measured, and body mass index ABOVE the normal limits, and counseling was done. Patient instructed to follow up with PCP. 9-Patient WAS NOT identified as an unhealthy alcohol user.
== END ==
LOC: PNWHC3 13:14
PROVIDERS: ATTEND Anesthesiology
DX: M47.816 Spondylosis without myelopathy or radiculopathy, lumbar region (principal); M46.1 Sacroiliitis, not elsewhere classified; G89.4 Chronic pain syndrome; Z79.891 Long term (current) use of opiate analgesic
CPT/HCPCS: 99211

== ENCOUNTER 2016-10-26 08:30 | Day surgery (SDC) | payer MEDICARE, BC ==
[2016-10-22 11:04] VITALS: BMI 30.9
[2016-10-26] MEDS ORDERED: LIDOCAINE 1% 20 ML VIAL (10MG/ML) FOR IV START INTRADERMA ONE (09:29)
[2016-10-26 09:30] LABS: Glucose,Whole Blood 139 mg/dL (75-99)
[2016-10-26] MEDS ORDERED: LACTATED RINGERS 1,000 ML IV ONE (09:31)
[2016-10-26 09:34] VITALS: RESP 16; TEMP 98.1
[2016-10-26] MEDS ORDERED: fentaNYL (PF) 50 MCG/ML 2 ML AMP ONE (09:40)
[2016-10-26] MEDS ORDERED: MIDAZOLAM 2 MG/2 ML VIAL ONE (09:40)
[2016-10-26] MEDS ORDERED: IOHEXOL 180 MG/ML 1 ML ML ONE (09:40)
[2016-10-26] MEDS ORDERED: BUPIVACAINE (PF) 0.5% 30 ML VIAL ONE (09:40)
[2016-10-26] MEDS ORDERED: TRIAMCINOLONE ACETONIDE 40 MG/ML 1 ML VIAL ONE (09:40)
[2016-10-26] MEDS ORDERED: IV FLUID CONTINUATION 1,000 ML IV ONE (10:00)
[2016-10-26 10:17] VITALS: BP 124/78; PULSE 56
--- NOTE | 2016-10-26 10:46 | FL ---
Fluoroscopy HISTORY: Pain 9 seconds fluoroscopy time supplied to the referring clinician. 4 intraoperative C-arm images docume nt the procedure. See dictated report from anesthesia.
--- NOTE | 2016-10-27 09:49 | P.PCN ---
Date of Procedure: 10/26/16 Preoperative Diagnosis: Postoperative Diagnosis: Procedure(s) Performed: Implants: Surgeon: Chris Pavon Pathology: none sent Condition: stable Disposition: PACU Indications for Procedure: Operative Findings: Description of Procedure: PREOPERATIVE DIAGNOSIS: 1-Bilateral sacroiliitis. 2 Lumbar DDD POSTOPERATIVE DIAGNOSIS:. 1-Bilateral sacroiliitis. 2 Lumbar DDD PROCEDURES: Bilateral Sacroiliac joint steroid injection with fluoroscopic guidance ANESTHESIA: Local with 1% lidocaine; conscious sedation EBL: Minimal. PROCEDURE INDICATIONS: This patient with a history of low back pain secondary to sacroiliitis and lumbar DDD unresponsive to conservative management. PROCEDURE DESCRIPTION: The patient was seen and identified in the preoperative area. Risks, benefits, complications, and alternatives were discussed with the patient (including but not limited to incomplete pain relief, bleeding, infection, nerve damage, and allergies to medications), the patient agreed to proceed with the procedure and signed the consent after all questions were answered. Patient was taken to the OR and time out was completed to verify proper patient , position, laterality of pain, and allergies. Pt was placed in the prone position and a pillow was placed under the abdomen to reduce lumbar lordosis. The lumbosacral area was prepped and draped in the usual sterile fashion. Critical pause was taken. Vital signs were closely monitored during the procedure. The fluoroscopic camera was placed in contralateral oblique view and right sacroiliiac joint lower pole was identified. After local infiltration with 1% lidocaine 2 ml, Subsequently, a 22-gauge 3.5 inch spinal needle was introduced into the posteroinferior aspect of the right sacroiliac joint under direct fluoroscopic visualization. Subsequently, 3 ml of a solution of a total of 6 ml solution containing total 4 mL of 0.5% preservative-free bupivacaine mixed with 40 mg of Kenalog was injected after negative aspiration for CSF, blood, and air and negative for paresthesia. The entire procedure was repeated on the left side as above. Needle was withdrawn intact. Skin was cleansed, and bandages were applied. COMPLICATIONS: None. COMMENTS: DISPOSITION / PLANS: The patient was placed in a supine position and transferred to the recovery area in a stable condition for observation and was discharged from the recovery room after meeting discharge criteria. Home discharge instructions given to the patient by the staff. The patient was reexamined prior to discharge and there were no issues. The patient will schedule a follow up procedure in 2-4 weeks.
== END 2016-10-26 10:31 | disposition home or self-care (01) ==
LOC: ORPAIN 08:30
PROVIDERS: ATTEND Anesthesiology
DX: G89.4 Chronic pain syndrome (principal); M51.36 Other intervertebral disc degeneration, lumbar region; M46.1 Sacroiliitis, not elsewhere classified
CPT/HCPCS: J2250; J3301; Q9965; J3010; G0260; 99152

== ENCOUNTER 2016-11-17 07:19 | Day surgery (SDC) | payer MEDICARE, BC ==
[2016-11-12 08:42] VITALS: BMI 30.3
[~2016-11-17 07:19] MED LIST changes: +LACTATED RINGERS 1,000 ML IV ONE; -LACTATED RINGERS 1,000 ML IV SCH
[2016-11-17 07:58] VITALS: TEMP 98.2
[2016-11-17] MEDS ORDERED: LIDOCAINE 1% 20 ML VIAL (10MG/ML) FOR IV START SQ ONE (08:09)
[2016-11-17 08:32] LABS: Glucose,Whole Blood 170 mg/dL (75-99)
--- NOTE | 2016-11-17 08:43 | P.PCN ---
Date of Procedure: 11/17/16 Preoperative Diagnosis: Bilateral sacroiliitis Postoperative Diagnosis: Same as above Procedure(s) Performed: Bilateral sacroiliac joint steroid injection under fluoroscopic guidance Implants: Anesthesia: other (Moderate conscious sedation with IV fentanyl and Versed) Surgeon: Brenda Washington Pathology: none sent Condition: stable Disposition: PACU Indications for Procedure: Operative Findings: Description of Procedure: The patient was seen in the preop holding area consent was obtained and was brought into the procedure room and placed in prone position. Skin was prepped with ChloraPrep Prep and draped in a sterile manner. Lidocaine 1% was used to numb the skin up at the target points that were chosen as follows: The right sacroiliac joint was done first, the AP view of fluoroscopy was used to identify the sacroiliac joint and then the C-arm was tilted to the left oblique position to superimpose the anterior and posterior joint lines on each other and the target point was at the inferior one third of this unified joint line. I used 22-gauge 3-1/2 inch Quincke spinal needle for this procedure and after getting into the sacroiliac joint then injected 20 mg of Kenalog plus 2.5 MLS of Marcaine 0.5%. The left side was done in the same manner and the total dose of steroids given during this procedure was 40 mg of Kenalog.
--- NOTE | 2016-11-17 08:54 | FL ---
Fluoroscopy HISTORY: Pain 9 seconds fluoroscopy time supplied to the referring clinician. 2 intraoperative C-arm images docume nt the procedure. See dictated report from anesthesia.
[2016-11-17 08:57] VITALS: RESP 18
[2016-11-17 09:18] VITALS: BP 134/80; PULSE 67
[2016-11-17] MEDS ORDERED: IV FLUID CONTINUATION 1,000 ML IV ONE (09:19)
== END 2016-11-17 09:30 | disposition home or self-care (01) ==
LOC: ORPAIN 07:19
PROVIDERS: ATTEND Anesthesiology
DX: M46.1 Sacroiliitis, not elsewhere classified (principal); I25.10 Atherosclerotic heart disease of native coronary artery without angina pectoris; I10 Essential (primary) hypertension; E11.9 Type 2 diabetes mellitus without complications
CPT/HCPCS: J2250; J3010; G0260; 99152; 99153

== ENCOUNTER → 2016-11-27 | Outpatient (CLI) | payer MEDICARE, BC ==
[2016-11-27 10:55] LABS: Basophils % (A) 0 %; CH 31.6; CHCM 33.9; Eosinophils % (A) 0 %; HCT 48.9 % (39.0-53.0); HDW 2.61; HGB 15.8 gm/dL (13.0-17.5); Luc % (Auto) 1; Lymphocytes # (A) 2.1 k/uL (1.0-4.8); Lymphocytes % (A) 26 %; MCH 30.2 pg (25.0-35.0); MCHC 32.3 g/dL (31.0-37.0); MCV 93.5 fL (80.0-100.0); Mean Platelet Volume 7.1; Monocytes # (A) 0.5 k/uL (0-1.0); Monocytes % (A) 6 %; Neutrophils # (A) 5.3 k/uL (1.3-7.7); Neutrophils % (A) 66 %; RBC 5.23 m/uL (4.30-5.90); RDW 14.2 % (11.5-15.5); WBC (Perox) 7.95
[2016-11-27 11:04] LABS: ALT 58 U/L (21-72); AST 21 U/L (17-59); Alkaline Phosphatase 66 U/L (38-126); Anion Gap 9 mmol/L; Blood Urea Nitrogen 19 mg/dL (9-20); Calcium 9.6 mg/dL (8.4-10.2); Carbon Dioxide 27 mmol/L (22-30); Chloride 103 mmol/L (98-107); Glucose 124 mg/dL (74-99); Non-African American GFR(MDRD) >60 (>60 ml/min/1.73 sqM); Potassium 4.8 mmol/L (3.5-5.1); Sodium 139 mmol/L (137-145); Total Bilirubin 0.8 mg/dL (0.2-1.3); Total Protein 6.7 g/dL (6.3-8.2)
--- NOTE | 2016-11-27 13:13 | CT ---
EXAMINATION TYPE: CT abdomen pelvis w con DATE OF EXAM: 11/27/2016 COMPARISON: 07/05/2016 and 11/14/2012 lumbar spine HISTORY: 71-year-old male prostate CA TECHNIQUE: Contiguous axial scanning of the abdomen and pelvis following administration of 100 ml Omn ipaque 300 IV contrast. Delayed images through the kidneys and coronal/sagittal reconstructions perf ormed. CT DLP: 1925.6 mGycm Automated exposure control for dose reduction was used. FINDINGS: The heart is upper limits of normal in size without pericardial effusion. Coronary vessel calcificati ons are present and are marker for coronary disease. Lung bases are clear without pleural effusion. No focal liver lesion or biliary ductal dilatation. Portal venous system is patent. Cystic area along the gallbladder fossa could represent a collapsed gallbladder. Adrenal glands, spleen, and pancreas show no gross abnormality. 1.6 cm cyst lateral upper pole right kidney. Subcentimeter hypodensity lateral lower pole right kidne y too small for CT characterization but stable most likely a cyst. 1.8 cm cyst anterior upper pole left kidney. Moderate atherosclerotic calcifications within the abdominal aorta without aneurysm. No dilated small bowel, free fluid, or free air. Small fatty umbilical hernia. There is mild overall stool burden without pericolonic inflammatory change. No mesenteric or retroperitoneal lymphadenopathy. Prostate gland mildly enlarged at 4.6 cm with some central calcifications. There is a 1 cm nodular fo cus of enhancement in the left paramedian peripheral zone which may represent the patient's prostate cancer. Mild circumferential bladder wall thickening could reflect cystitis or chronic bladder wall h ypertrophy. No abnormal fluid collection in the pelvis or pelvic lymphadenopathy. Fat-containing right inguinal hernia. Bones: Mild degenerative changes at the hips. A sclerotic focus within the medial right iliac bone is unchanged from 11/14/2012 compatible with a benign bone island. Hypertrophic facet arthropathy in the lumbar spine with Baastrup's disease and multilevel degenerative disc disease. There is a subacute t o chronic fracture deformity of the right posterior 11th rib additional old posterior left-sided rib fractures. No osseous destructive process. IMPRESSION: 1. MILD PROSTATOMEGALY (4.6 CM WIDE). A 1 CM NODULAR FOCUS OF ENHANCEMENT IN THE LEFT PARAMEDIAN SAM PHERAL ZONE MAY REPRESENT THE PATIENT'S PROSTATE CANCER. 2. NO SUSPICIOUS LYMPHADENOPATHY OR OTHER TARGET LESIONS IDENTIFIED FOR PURPOSES OF RECIST CRITERIA. 3. SCLEROTIC FOCUS IN THE MEDIAL RIGHT ILIAC BONE WAS PRESENT ON 2012 COMPATIBLE WITH A BENIGN BONE I SLAND. 4. MILD CIRCUMFERENTIAL BLADDER WALL THICKENING COULD REPRESENT CYSTITIS OR CHRONIC BLADDER WALL HYPE RTROPHY. FAT-CONTAINING RIGHT INGUINAL HERNIA.
--- NOTE | 2016-11-27 15:54 | NM ---
EXAMINATION TYPE: NM bone scan whole body DATE OF EXAM: 11/27/2016 COMPARISON: CT 07/05/2016, 11/27/2016 and bone scan 05/14/2016 HISTORY: Prostate carcinoma Delayed whole-body scanning was performed following the injection of 27.3 mCi Tc 99m MDP. Images acq uired 3.25 hours post injection. FINDINGS: Focal uptake in the posterior right 11th rib corresponds to rib fracture. Uptake at the costovertebra l angle of the 10th rib corresponds to osteoarthritic change possibly secondary to prior trauma. [place] lar changes at the costovertebral angle on the ninth rib on the right to lesser extent. Soft tissue u ptake is normal. Uptake at the sternoclavicular joint greater on the left likely is degenerative. Upt shivam in the lumbar spine may be due to degenerative disc disease, scoliosis. Uptake at the acetabulum on the right may be due to osteoarthritic change. Sternoclavicular joint on the left shows uptake and is likely due to osteoarthritic change. Bilateral shoulder uptake is likely degenerative. Cervical s pine uptake may be due to degenerative change as is the uptake in the left knee. Old left-sided poste rior rib fractures are also noted. IMPRESSION: No convincing evidence of metastatic disease. Interval rib fracture posteriorly in the right 11th rib , additional findings above
== END | disposition home or self-care (01) ==
LOC: RADNMMAIN 10:19
PROVIDERS: ATTEND Radiology Radiation Oncology
DX: N40.2 Nodular prostate without lower urinary tract symptoms (principal); N40.0 Benign prostatic hyperplasia without lower urinary tract symptoms; K40.90 Unilateral inguinal hernia, without obstruction or gangrene, not specified as recurrent; N32.89 Other specified disorders of bladder; S22.31XA Fracture of one rib, right side, initial encounter for closed fracture
CPT/HCPCS: 84153; 80053; 85025; 74177; 36415; 78306; A9503; Q9967

== ENCOUNTER 2016-12-16 09:04 | Day surgery (SDC) | payer MEDICARE, BC ==
[2016-12-07 11:33] VITALS: BMI 29.7
[~2016-12-16 09:04] MED LIST changes: -LACTATED RINGERS 1,000 ML IV ONE; +LACTATED RINGERS 1,000 ML IV SCH
[2016-12-16 09:20] VITALS: TEMP 98.5
[2016-12-16] MEDS ORDERED: LIDOCAINE 1% 20 ML VIAL (10MG/ML) FOR IV START INTRADERMA ONE (09:26)
[2016-12-16 09:41] LABS: Glucose,Whole Blood 133 mg/dL (75-99)
--- NOTE | 2016-12-16 10:51 | P.PCN ---
Date of Procedure: 12/16/16 Preoperative Diagnosis: Postoperative Diagnosis: Procedure(s) Performed: Implants: Indications for Procedure: Operative Findings: Description of Procedure: Preoperative Diagnosis: Left sacroiliac joint dysfunction Postoperative Diagnosis: Same as above Procedure(s) Performed: Left L5 the dorsal ramus RF and S1 S2 and S3 lateral branch RF under fluoroscopic guidance Implants: Anesthesia: other (IV conscious sedation with Versed and fentanyl) Surgeon: Brenda Washington Pathology: none sent Condition: stable Disposition: PACU Description of Procedure: The patient had more pain relief on the left side after bilateral sacroiliac joint steroid injection that's why I'm doing the RF on the left side today he does complain of pain that goes to the right groin and to the knee level on the right side and that's why I'm going to reevaluate him in the office in a few weeks because he might need another lumbar epidural steroid injection in the right paramedian approach for his right leg pain and I'm going to hold off on the right sacroiliac RFA for now. The patient was seen and identified in the preoperative area. Risks, benefits, complications, and alternatives were discussed with the patient. The patient agreed to proceed with the procedure and signed the consent. Vital signs were checked before and after the procedure and they remained stable. The patient was placed in the prone position on the procedure table and a pillow was placed under the abdomen to reduce lumbar lordosis. The lumbosacral area was prepped and draped in the usual sterile fashion. Critical pause was taken. L5 Dorsal Ramus RF: Using left oblique fluoroscopy, the junction of the transverse process and the superior articular process of the left S1 vertebra, which correspond to the fluoroscopic image of the "eye of the [place] dog" was identified. Subsequently, a 10-cm 18-gauge radiofrequency cannula with a 10-mm active tip was advanced under fluoroscopic guidance until contact was made with periosteum. At this level, the Sensory testing of the L5 dorsal ramus was performed at 50 Hz and 0 to 1 volt with production of concordant pain starting at 0.5 volt. Motor stimulation was done at 2 Hz with stimulation of mulitifidus muscle contration at 1.5 volts. No radicular symptoms or paresthesias were produced during the testing. Subsequently, the L5 dorsal ramus was subjected to a radiofrequency ablation at a mode of 90 seconds at 80 degrees Celsius after negative motor and sensory testing and after injecting 0.5 ml of preservative free Bupivacaine.. S1, S2, and S3 Lateral Branch RF: The lateral margins of the left S1, S2, and S3 foramina were identified using AP fluoroscopy. Under fluoroscopic guidance, three 10-cm 18-gauge radiofrequency cannula with a 10-mm active tip were inserted at 8-10 mm peripheral to the posterior S1 foramen, at various locations using clock-face coordinates. The center of the clock was registered at the lateral margin of the foramen. The 6:30, 9:00, and 11:30 oclock positions were used. At this level, the sensory testing of the S1 lateral branch was performed at 50 Hz and 0 to 1 volt at the three levels with production of concordant pain starting at 0.5 volt. Motor stimulation was done at 2 Hz. No radicular symptoms or paresthesias were produced during the testing. Subsequently, the S1 lateral branch was subjected to a radiofrequency ablation at a mode of 90 seconds at 80 degrees Celsius at the 3 levels after negative motor and sensory testing and after injecting 0.5 ml of preservative free Bupivacaine 0.5%. The same procedure was performed at the level of the S2 foramen. For the S3 foramen, only the 6:30 and 9:00 oclock positions were used. Sensory and motor testing followed by radiofrequency ablation were performed as described for the S1 and S2 foramina. Patient tolerated procedure well.
--- NOTE | 2016-12-16 10:59 | FL ---
EXAMINATION TYPE: FL guided pain mgmt statistic DATE OF EXAM: 12/16/2016 HISTORY: Flouroscopy time 17 seconds of fluoroscopy provided. IMPRESSION: 1. Fluoroscopy time.
[2016-12-16] MEDS ORDERED: IV FLUID CONTINUATION 1,000 ML IV ONE (11:01)
[2016-12-16 11:03] VITALS: BP 121/74
[2016-12-16 11:27] VITALS: PULSE 69; RESP 16
== END 2016-12-16 11:31 | disposition home or self-care (01) ==
LOC: ORPAIN 09:04
PROVIDERS: ATTEND Anesthesiology
DX: M53.3 Sacrococcygeal disorders, not elsewhere classified (principal); E11.9 Type 2 diabetes mellitus without complications
CPT/HCPCS: 99152; 99153; 64640 ×3; 64635; J2250; J3010

== ENCOUNTER 2016-12-17 10:29 | Inpatient (IN) | payer MEDICARE, BC ==
--- NOTE | 2016-12-17 11:18 | ED ---
General Adult HPI - General Chief complaint: Psychiatric Symptoms Stated complaint: mental health Time Seen by Provider: 12/17/16 10:56 Source: patient, family, RN notes reviewed, old records reviewed Mode of arrival: ambulatory Limitations: no limitations - History of Present Illness Initial comments: This is a 71-year-old middle ear fibrillation psychiatric disease, suicidal thoughts. Patient apparently told friend allegedly told her that he wanted to kill himself. Patient's friend did make patient to docile, patient here in Hospital denies wanted to counseled, the states he is not need to be here. Patient denies drug or alcohol abuse. No prior medical admissions for psychiatric evaluation here - Related Data Home Medications Medication Instructions Recorded Confirmed HYDROcodone/APAP 10-325MG [[place] 1 tab PO Q6H PRN 08/28/13 12/17/16 10-325] Multivitamin/Iron/Folic Acid 1 tab PO DAILY 08/28/13 12/17/16 [Centrum Complete Multivit Tab] Atorvastatin Calcium [Lipitor] 40 mg PO QAM 11/01/14 12/17/16 amLODIPine BESYLATE/BENAZEPRIL 1 tab PO QAM 10/29/15 12/17/16 [Lotrel 5-20 mg Capsule] Bisoprolol Fumarate [Zebeta] 10 mg PO DAILY 11/26/15 12/17/16 Bicalutamide [Casodex] 50 mg PO DAILY 12/07/16 12/17/16 sitaGLIPtin PHOS/metFORMIN HCL 1 tab PO DAILY 12/07/16 12/17/16 [Janumet 50-1,000 mg Tablet] Allergies Allergy/AdvReac Type Severity Reaction Status Date / Time No Known Allergies Allergy Verified 12/17/16 11:02 Review of Systems ROS Statement: Those systems with pertinent positive or pertinent negative responses have been documented in the HPI. ROS Other: All systems not noted in ROS Statement are negative. Past Medical History Past Medical History: Coronary Artery Disease (CAD), Cancer, Diabetes Mellitus, GERD/Reflux, Hyperlipidemia, Hypertension, Osteoarthritis (OA), Prostate Disorder Additional Past Medical History / Comment(s): 5 Herniated discs in neck causing headaches & numbness in arm and right lower back pain and right leg pain. Hx 4 fx ribs, current Prostate Cancer, no treatment yet. History of Any Multi-Drug Resistant Organisms: None Reported Past Surgical History: Heart Catheterization With Stent, Orthopedic Surgery, Prostate Surgery Additional Past Surgical History / Comment(s): PROSTATE BX., LT. KNEE ARTHROSCOPY X 2, CERVICAL FUSIONS, COLONOSCOPY, ÁNGEL. CATARTACTS.Pain Procedures Past Anesthesia/Blood Transfusion Reactions: No Reported Reaction Date of Last Stent Placement:: 1999 Past Psychological History: Anxiety, Depression Smoking Status: Former smoker Past Alcohol Use History: None Reported Past Drug Use History: None Reported - Past Family History Mother Family Medical History: Cancer Additional Family Medical History / Comment(s): UTERINE General Exam Limitations: no limitations General appearance: alert, in no apparent distress Head exam: Present: atraumatic, normocephalic, normal inspection Eye exam: Present: normal appearance, PERRL, EOMI. Absent: scleral icterus, conjunctival injection, periorbital swelling ENT exam: Present: normal exam, mucous membranes moist Neck exam: Present: normal inspection. Absent: tenderness, meningismus, lymphadenopathy Respiratory exam: Present: normal lung sounds bilaterally. Absent: respiratory distress, wheezes, rales, rhonchi, stridor Cardiovascular Exam: Present: regular rate, normal rhythm, normal heart sounds. Absent: systolic murmur, diastolic murmur, rubs, gallop, clicks GI/Abdominal exam: Present: soft, normal bowel sounds. Absent: distended, tenderness, guarding, rebound, rigid Extremities exam: Present: normal inspection, full ROM, normal capillary refill. Absent: tenderness, pedal edema, joint swelling, calf tenderness Back exam: Present: normal inspection Neurological exam: Present: alert, oriented X3, CN II-XII intact Psychiatric exam: Present: normal affect, normal mood Skin exam: Present: warm, dry, intact, normal color. Absent: rash Course Vital Signs 12/17/16 12/17/16 10:37 12:59 Temperature 98.3 F 97.0 F L Pulse Rate 66 63 Respiratory 18 20 Rate Blood Pressure 141/83 136/78 O2 Sat by Pulse 97 95 Oximetry - Reevaluation(s) Reevaluation #1: 12/17/16 13:09 Medically clear for psychiatric evaluation Medical Decision Making - Medical Decision Making 71 male seen and evaluated by mental health, patient will be admitted for psychiatric evaluation and treatment - Lab Data Result diagrams: 12/17/16 12:50 12/17/16 12:50 Lab Results 08/12/17/16 12/17/16 Range/Units 12:50 12:50 13:45 WBC 7.0 (3.8-10.6) k/uL RBC 4.74 (4.30-5.90) m/uL Hgb 14.4 (13.0-17.5) gm/dL Hct 42.9 (39.0-53.0) % MCV 90.6 (80.0-100.0) fL MCH 30.4 (25.0-35.0) pg MCHC 33.6 (31.0-37.0) g/dL RDW 14.0 (11.5-15.5) % Plt Count 237 (150-450) k/uL Neutrophils % 68 % Lymphocytes % 25 % Monocytes % 5 % Eosinophils % 0 % Basophils % 0 % Neutrophils # 4.8 (1.3-7.7) k/uL Lymphocytes # 1.8 (1.0-4.8) k/uL Monocytes # 0.4 (0-1.0) k/uL Eosinophils # 0.0 (0-0.7) k/uL Basophils # 0.0 (0-0.2) k/uL Sodium 137 (137-145) mmol/L Potassium 4.6 (3.5-5.1) mmol/L Chloride 101 (98-107) mmol/L Carbon Dioxide 26 (22-30) mmol/L Anion Gap 10 mmol/L BUN 17 (9-20) mg/dL Creatinine 0.90 (0.66-1.25) mg/dL Est GFR (MDRD) Af Amer >60 (>60 ml/min/1.73 sqM) Est GFR (MDRD) Non-Af >60 (>60 ml/min/1.73 sqM) Glucose 195 H (74-99) mg/dL Calcium 8.9 (8.4-10.2) mg/dL Phosphorus 3.6 (2.5-4.5) mg/dL Magnesium 1.5 L (1.6-2.3) mg/dL Total Bilirubin 1.2 (0.2-1.3) mg/dL AST 26 (17-59) U/L ALT 44 (21-72) U/L Alkaline Phosphatase 68 (38-126) U/L Total Protein 6.5 (6.3-8.2) g/dL Albumin 3.9 (3.5-5.0) g/dL Urine Color Yellow Urine Appearance Clear (Clear) Urine pH 5.5 (5.0-8.0) Ur Specific [place] 1.019 (1.001-1.035) Urine Protein Trace H (Negative) Urine Glucose (UA) 1+ H (Negative) Urine Ketones Negative (Negative) Urine Blood Negative (Negative) Urine Nitrite Negative (Negative) Urine Bilirubin Negative (Negative) Urine Urobilinogen <2.0 (<2.0) mg/dL Ur Leukocyte Esterase Negative (Negative) Salicylates <1.0 mg/dL Urine Opiates Screen Detected H (NotDetected) Ur Oxycodone Screen Not Detected (NotDetected) Urine Methadone Screen Not Detected (NotDetected) Ur Propoxyphene Screen Not Detected (NotDetected) Acetaminophen <10.0 ug/mL Ur Barbiturates Screen Not Detected (NotDetected) U Tricyclic Antidepress Not Detected (NotDetected) Ur Phencyclidine Scrn Not Detected (NotDetected) Ur Amphetamines Screen Not Detected (NotDetected) U Methamphetamines Scrn Not Detected (NotDetected) U Benzodiazepines Scrn Not Detected (NotDetected) Urine Cocaine Screen Not Detected (NotDetected) U Marijuana (THC) Screen Not Detected (NotDetected) Serum Alcohol <10 mg/dL Disposition Clinical Impression: Acute anxiety, Depression, Suicidal ideation Disposition: TRANSFER TO PSYCH HOSP/UNIT Condition: Fair Referrals: German Astudillo MD [Primary Care Provider] - 1-2 days
[2016-12-17 13:08] LABS: Basophils % (A) 0 %; CHCM 35.5; Eosinophils % (A) 0 %; HCT 42.9 % (39.0-53.0); HDW 2.67; HGB 14.4 gm/dL (13.0-17.5); Luc # (Auto) 0.09; Luc % (Auto) 1; Lymphocytes # (A) 1.8 k/uL (1.0-4.8); Lymphocytes % (A) 25 %; MCH 30.4 pg (25.0-35.0); MCHC 33.6 g/dL (31.0-37.0); MCV 90.6 fL (80.0-100.0); Mean Platelet Volume 7.2; Monocytes # (A) 0.4 k/uL (0-1.0); Monocytes % (A) 5 %; Neutrophils # (A) 4.8 k/uL (1.3-7.7); Neutrophils % (A) 68 %; RBC 4.74 m/uL (4.30-5.90); WBC (Perox) 6.55
[2016-12-17 13:22] LABS: ALT 44 U/L (21-72); AST 26 U/L (17-59); Acetaminophen <10.0 ug/mL; Alcohol <10 mg/dL; Alkaline Phosphatase 68 U/L (38-126); Anion Gap 10 mmol/L; Blood Urea Nitrogen 17 mg/dL (9-20); Calcium 8.9 mg/dL (8.4-10.2); Carbon Dioxide 26 mmol/L (22-30); Chloride 101 mmol/L (98-107); Glucose 195 mg/dL (74-99); Magnesium 1.5 mg/dL (1.6-2.3); Non-African American GFR(MDRD) >60 (>60 ml/min/1.73 sqM); Phosphorous 3.6 mg/dL (2.5-4.5); Potassium 4.6 mmol/L (3.5-5.1); Salicylate <1.0 mg/dL; Sodium 137 mmol/L (137-145); Total Bilirubin 1.2 mg/dL (0.2-1.3); Total Protein 6.5 g/dL (6.3-8.2)
[2016-12-17 14:19] LABS: Appearance,Urine Clear (Clear); Bilirubin,Urine Negative (Negative); Glucose,Urine (UA) 1+ (Negative); Ketones,Urine Negative (Negative); Leukocyte Esterase,Urine Negative (Negative); Nitrite,Urine Negative (Negative); PH, Urine 5.5 (5.0-8.0); Protein,Urine Trace (Negative); Specific Gravity,Urine 1.019 (1.001-1.035); UA Billing (MACRO vs. MICRO) CHEM; Urobilinogen,Urine <2.0 mg/dL (<2.0)
[2016-12-17] MEDS ORDERED: MAGNESIUM HYDROXIDE 2,400 MG/10 ML CUP PO PRN (15:15)
[2016-12-17] MEDS ORDERED: MAG HYDROX/AL HYDROX/SIMETH 30 ML CUP PO PRN (15:15)
[2016-12-17] MEDS ORDERED: ACETAMINOPHEN TAB 325 MG TAB PO PRN (15:15)
[2016-12-17] MEDS ORDERED: HYDROcodone/APAP 5-325MG 1 EACH TAB PO PRN (15:17)
[2016-12-17 19:09] LABS: Glucose,Whole Blood 192 mg/dL (75-99)
[2016-12-18 06:22] LABS: Glucose,Whole Blood 104 mg/dL (75-99)
[2016-12-18 07:05] VITALS: TEMP 97.9
[2016-12-18] MEDS ORDERED: LISINOPRIL 20 MG TAB PO SCH (09:00)
[2016-12-18] MEDS ORDERED: amLODIPine 5 MG TAB PO SCH (09:00)
[2016-12-18] MEDS ORDERED: ATORVASTATIN 40 MG TAB PO SCH (09:00)
[2016-12-18] MEDS ORDERED: metFORMIN 500 MG TAB PO SCH (09:00)
[2016-12-18] MEDS ORDERED: BICALUTAMIDE 50 MG TAB PO SCH (09:00)
[2016-12-18] MEDS ORDERED: BISOPROLOL 5 MG TAB PO SCH (09:00)
[2016-12-18] MEDS ORDERED: LINAGLIPTIN 5 MG TABLET PO SCH (09:00)
[2016-12-18 09:24] VITALS: BMI 29.7
[2016-12-18 10:15] VITALS: BP 165/89; PULSE 91; RESP 18
--- NOTE | 2016-12-18 10:59 | XR ---
EXAMINATION TYPE: XR shoulder complete LT DATE OF EXAM: 12/18/2016 COMPARISON: NONE HISTORY: Pain TECHNIQUE: Three views are submitted. FINDINGS: The osseous structures are intact. There is no acute fracture or dislocation. AC joint is narrowed w ith hypertrophic change. IMPRESSION: 1. AC joint arthropathy correlate for chronic rotator cuff disease.
[2016-12-18] MEDS ORDERED: MULTIVITAMINS, THERA 1 EACH TAB PO SCH (12:00)
[2016-12-18 12:20] LABS: Glucose,Whole Blood 106 mg/dL (75-99)
--- NOTE | 2016-12-18 12:29 | P.HP ---
Psychiatric H&P - . H&P Date: 12/18/16 History & Physical: Allergies Allergy/AdvReac Type Severity Reaction Status Date / Time No Known Allergies Allergy Verified 12/18/16 05:18 Vital Signs Temp 97.9 F 12/18/16 07:05 Pulse 91 12/18/16 10:14 Resp 18 12/18/16 10:14 BP 165/89 12/18/16 10:14 Pulse Ox 98 12/17/16 15:49 Intake & Output 12/17/16 12/18/16 12/18/16 18:59 06:59 18:59 Weight 102.058 kg 102.058 kg Laboratory Last Values WBC 7.0 k/uL (3.8-10.6) 12/17/16 12:50 RBC 4.74 m/uL (4.30-5.90) 12/17/16 12:50 Hgb 14.4 gm/dL (13.0-17.5) 12/17/16 12:50 Hct 42.9 % (39.0-53.0) 12/17/16 12:50 MCV 90.6 fL (80.0-100.0) 12/17/16 12:50 MCH 30.4 pg (25.0-35.0) 12/17/16 12:50 MCHC 33.6 g/dL (31.0-37.0) 12/17/16 12:50 RDW 14.0 % (11.5-15.5) 12/17/16 12:50 Plt Count 237 k/uL (150-450) 12/17/16 12:50 Neutrophils % 68 % 12/17/16 12:50 Lymphocytes % 25 % 12/17/16 12:50 Monocytes % 5 % 12/17/16 12:50 Eosinophils % 0 % 12/17/16 12:50 Basophils % 0 % 12/17/16 12:50 Neutrophils # 4.8 k/uL (1.3-7.7) 12/17/16 12:50 Lymphocytes # 1.8 k/uL (1.0-4.8) 12/17/16 12:50 Monocytes # 0.4 k/uL (0-1.0) 12/17/16 12:50 Eosinophils # 0.0 k/uL (0-0.7) 12/17/16 12:50 Basophils # 0.0 k/uL (0-0.2) 12/17/16 12:50 Sodium 137 mmol/L (137-145) 12/17/16 12:50 Potassium 4.6 mmol/L (3.5-5.1) 12/17/16 12:50 Chloride 101 mmol/L (98-107) 12/17/16 12:50 Carbon Dioxide 26 mmol/L (22-30) 12/17/16 12:50 Anion Gap 10 mmol/L 12/17/16 12:50 BUN 17 mg/dL (9-20) 12/17/16 12:50 Creatinine 0.90 mg/dL (0.66-1.25) 12/17/16 12:50 Est GFR (MDRD) Af Amer >60 (>60 ml/min/1.73 sqM) 12/17/16 12:50 Est GFR (MDRD) Non-Af >60 (>60 ml/min/1.73 sqM) 12/17/16 12:50 Glucose 195 mg/dL (74-99) H 12/17/16 12:50 POC Glucose (mg/dL) 104 mg/dL (75-99) H 12/18/16 06:21 POC Glu District Manager ID Jennifer Awad 12/18/16 06:21 Calcium 8.9 mg/dL (8.4-10.2) 12/17/16 12:50 Phosphorus 3.6 mg/dL (2.5-4.5) 12/17/16 12:50 Magnesium 1.5 mg/dL (1.6-2.3) L 12/17/16 12:50 Total Bilirubin 1.2 mg/dL (0.2-1.3) 12/17/16 12:50 AST 26 U/L (17-59) 12/17/16 12:50 ALT 44 U/L (21-72) 12/17/16 12:50 Alkaline Phosphatase 68 U/L (38-126) 12/17/16 12:50 Total Protein 6.5 g/dL (6.3-8.2) 12/17/16 12:50 Albumin 3.9 g/dL (3.5-5.0) 12/17/16 12:50 Urine Color Yellow 12/17/16 13:45 Urine Appearance Clear (Clear) 12/17/16 13:45 Urine pH 5.5 (5.0-8.0) 12/17/16 13:45 Ur Specific [place] 1.019 (1.001-1.035) 12/17/16 13:45 Urine Protein Trace (Negative) H 12/17/16 13:45 Urine Glucose (UA) 1+ (Negative) H 12/17/16 13:45 Urine Ketones Negative (Negative) 12/17/16 13:45 Urine Blood Negative (Negative) 12/17/16 13:45 Urine Nitrite Negative (Negative) 12/17/16 13:45 Urine Bilirubin Negative (Negative) 12/17/16 13:45 Urine Urobilinogen <2.0 mg/dL (<2.0) 12/17/16 13:45 Ur Leukocyte Esterase Negative (Negative) 12/17/16 13:45 Salicylates <1.0 mg/dL 12/17/16 12:50 Urine Opiates Screen Detected (NotDetected) H 12/17/16 13:45 Ur Oxycodone Screen Not Detected (NotDetected) 12/17/16 13:45 Urine Methadone Screen Not Detected (NotDetected) 12/17/16 13:45 Ur Propoxyphene Screen Not Detected (NotDetected) 12/17/16 13:45 Acetaminophen <10.0 ug/mL 12/17/16 12:50 Ur Barbiturates Screen Not Detected (NotDetected) 12/17/16 13:45 U Tricyclic Antidepress Not Detected (NotDetected) 12/17/16 13:45 Ur Phencyclidine Scrn Not Detected (NotDetected) 12/17/16 13:45 Ur Amphetamines Screen Not Detected (NotDetected) 12/17/16 13:45 U Methamphetamines Scrn Not Detected (NotDetected) 12/17/16 13:45 U Benzodiazepines Scrn Not Detected (NotDetected) 12/17/16 13:45 Urine Cocaine Screen Not Detected (NotDetected) 12/17/16 13:45 U Marijuana (THC) Screen Not Detected (NotDetected) 12/17/16 13:45 Serum Alcohol <10 mg/dL 12/17/16 12:50 12/18/16 12:14 Identification: Patient is a 71-year-old male who was brought to the hospital on a petition from a friend who had been living with the patient for the last 2 years. This friend said that she was moving out and the patient made a suicidal threat. History of Present Illness: Patient states the last 2 years he has had a 29-year -old female living with him and she is now moving out and he threatened to kill himself because he wanted to see if she would stay. Patient states that over the last 4 years he has had different young women living with him because he is lonely, he reports this is not a sexual relationship. He states that he was closest to this young woman who is been with him for 2 years. 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 He did agree that he had been sending texts to her that were mean , that he did threaten to kill himself, stating he would use drugs or turn on his car in the garage. He states he had no intention to act on these threats and was doing them to get her attention and make her feel sorry for him and then stay with him. Patient states that he has never made any suicide attempts in the past and has never had any suicidal ideation in the past with intent to act. Patient states that since his divorce in 1997 he has been living alone and has not been happy. He states that his daughter 4 years ago and over the last 4 years he has been increasingly lonely. He states he finds women who are depressed and have no place to live and they stay with him and states that he is no longer going to get so attached anyone in the future. He is unable to tell me how he found the first woman that lived with him but states that they' ll knew each other and made referrals to him. He states most of them were in long term and had been released and had no place to live have lost their children. Patient is not able to endorse any symptoms of mateusz currently or in the future and no current or prior symptoms of psychosis. Patient states that he is not feeling depressed, denies any difficulty with his sleep, denies a decrease in motivation or interest to do things, no crying spells and he is not feeling hopeless or helpless. Patient states that he has not been as active recently due to having back problems which he described as herniated disks and is receiving injections of steroids his last was to do an ablation however he said he is having some other difficulties after that most recent injection. Patient is also to start radiation therapy on the of this month for prostate cancer. Past Psychiatric History:Patient states that he has never been admitted to an inpatient psychiatric unit before, has no prior outpatient psychiatric treatment and has never been placed on psychotropic medications for any reason in the past. Patient denies any prior history of suicide attempts.] Past Medical/Surgical History:Patient has a history of prostate cancer that was for suspected in 2011 but was not biopsied until 2014. Patient has high blood pressure, hyperlipidemia, diabetes mellitus and in 1999 a cardiac stent was placed rated patient states that he has fractured his ribs on 2 occasions and is status post left knee arthroscope and has a history of herniated disks.] Home Medications Medication Instructions Recorded Confirmed HYDROcodone/APAP 10-325MG [[place] 1 tab PO Q6H PRN 08/28/13 12/18/16 10-325] Multivitamin/Iron/Folic Acid 1 tab PO DAILY 08/28/13 12/18/16 [Centrum Complete Multivit Tab] Atorvastatin Calcium [Lipitor] 40 mg PO QAM 11/01/14 12/18/16 amLODIPine BESYLATE/BENAZEPRIL 1 tab PO QAM 10/29/15 12/18/16 [Lotrel 5-20 mg Capsule] Bisoprolol Fumarate [Zebeta] 10 mg PO DAILY 11/26/15 12/18/16 Bicalutamide [Casodex] 50 mg PO DAILY 12/07/16 12/18/16 sitaGLIPtin PHOS/metFORMIN HCL 1 tab PO DAILY 12/07/16 12/18/16 [Janumet 50-1,000 mg Tablet] Family History: Patient denies any family history of psychiatric disorders, states his mother abused alcohol and reports no completed suicides in the family. Social History: Patient states he was born and raised in [place] and his father at the age of 49 and his mother at the age of 81. He has one brother. 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 He was the first time for 16 years and has a son and daughter from that marriage and was , that ex- is . He was the second time for 8 years and he has one daughter from that marriage. Patient's daughter from his first marriage at the age of 39 after being treated for pneumonia and a collapsed lung, her is also from an overdose on drugs. He is to younger grandsons are in the care of his granddaughter who is 21 years of age. Patient states he has little contact with them. He has a 24-year-old daughter from his second marriage who he has also little contact with. Patient reports he has no social contacts from work and only has one male friend. Patient states he used to exercise quite frequently but really currently due to back pain has just been sitting at home watching television all day. 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 He denies any prior abuse. Substance Use History: Patient states that he has not used any alcohol since 1984 and prior to that was using. Patient denies any current or prior drug use history and states that he has not smoked cigarettes since 1984 Legal History: Patient denies any legal problems. Mental Status:Appearance/Attitude: Patient is appropriately dressed, makes good eye contact and is cooperative. Behavior: Patient does not display any psychomotor agitation or retardation. Speech/Language: Patient's speech is spontaneous and of normal volume and rhythm and he is coherent. Thought Process: Patient is goal-directed and there is no evidence of any circumstantial or tangential thought and no loose associations or flight of ideas. Thought Content: Patient does not report any auditory or visual hallucinations no delusions or paranoid ideation were elicited. Patient states that he is lonely and dislikes living alone and was upset when his roommate of 2 years reported she was leaving. Patient reports no sleep or appetite disturbance. Suicidal/Homicidal Ideation: Patient denies any current suicidal or homicidal ideation and states that he made the threats to commit suicide because he wanted his postal supervisor to stay with him. Sensorium/Cognition: Patient is alert and oriented to person, place, and time and his memory is grossly intact. Mood/Affect: Patient's mood is euthymic and his affect is appropriate. Insight/Judgement: Patient's insight and judgment are fair. Intellectual Functioning: Patient's intellectual functioning appears average. Strength/Weaknesses: Patient has financial stability, place to live/poor coping skills Assessment: Patient is a 71-year-old male who dislikes living alone and has for the last 4 years had different young women living with him who had no place to live and were trying to get their lives together. His most recent roommate has been there for 2 years and when she reported that she was moving out the patient became upset and threatened suicide to see if she would stay with him. He now reports that that was selfish and stupid idea and he had no intent to act on his threats. Patient has no prior history of any psychiatric treatment and does not endorse any symptoms of depression, mateusz, psychosis in the past. Admission Diagnoses: Adjustment disorder, unspecified Plan: Patient signed a voluntary admission, there is no evidence of a major depressive disorder, psychotic process or manic symptoms and the patient is reporting no suicidal ideation and that states that he had no intent to act on the threats that he made was only making them to have his roommate stay with him. Patient does not require inpatient psychiatric treatment and so will be discharged today but will be referred for outpatient counseling to improve his coping skills. Patient and I had a long discussion regarding his taking young women into live with him, and I recommended that he discontinue this and if he needs to keep himself occupied to look at volunteer positions in the community.
--- NOTE | 2016-12-18 12:35 | P.DS ---
Providers Date of admission: 12/17/16 15:09 Expected date of discharge: 12/18/16 Attending physician: Violeta Parsons MD Consults: 12/17/16 15:15 Consult Physician Routine Consulting Provider: German Astudillo Consult Reason/Comments: follow up H & P Do you want consulting provider notified?: Yes Primary care physician: German Astudillo Hospital Course: Discharge Diagnoses: Adjustment disorder, unspecified. Hospital Course: Patient is a 71y/o male who was brought to the hospital on a petition that stated he had made suicidal threats. Patient states the last 2 years he has had a 29-year-old female living with him and she is now moving out and he threatened to kill himself because he wanted to see if she would stay. Patient states that over the last 4 years he has had different young women living with him because he is lonely, he reports this is not a sexual relationship. He states that he was closest to this young woman who is been with him for 2 years. He states that he has to have a resource protection specialist in the home someone that he can go out to eat with and talk to. He did agree that he had been sending texts to her that were mean, that he did threaten to kill himself, stating he would use drugs or turn on his car in the garage. He states he had no intention to act on these threats and was doing them to get her attention and make her feel sorry for him and then stay with him. Patient states that he has never made any suicide attempts in the past and has never had any suicidal ideation in the past with intent to act. Patient states that since his divorce in 1997 he has been living alone and has not been happy. He states that his daughter 4 years ago and over the last 4 years he has been increasingly lonely. He states he finds women who are depressed and have no place to live and they stay with him and states that he is no longer going to get so attached anyone in the future. He is unable to tell me how he found the first woman that lived with him but states that they'll knew each other and made referrals to him. He states most of them were in nursing home and had been released and had no place to live have lost their children. Patient is not able to endorse any symptoms of mateusz currently or in the future and no current or prior symptoms of psychosis. Patient states that he is not feeling depressed, denies any difficulty with his sleep, denies a decrease in motivation or interest to do things, no crying spells and he is not feeling hopeless or helpless. Patient states that he has not been as active recently due to having back problems which he described as herniated disks and is receiving injections of steroids his last was to do an ablation however he said he is having some other difficulties after that most recent injection. Patient is also to start radiation therapy on the of this month for prostate cancer. Discharge Mental Status:Appearance/Attitude: Patient is appropriately dressed, makes good eye contact and is cooperative. Behavior: Patient does not display any psychomotor agitation or retardation. Speech/Language: Patient's speech is spontaneous and of normal volume and rhythm and he is coherent. Thought Process: Patient is goal-directed and there is no evidence of any circumstantial or tangential thought and no loose associations or flight of ideas. Thought Content: Patient does not report any auditory or visual hallucinations no delusions or paranoid ideation were elicited. Patient states that he is lonely and dislikes living alone and was upset when his roommate of 2 years reported she was leaving. Patient reports no sleep or appetite disturbance. Suicidal/Homicidal Ideation: Patient denies any current suicidal or homicidal ideation and states that he made the threats to commit suicide because he wanted his resource protection specialist to stay with him. Sensorium/Cognition: Patient is alert and oriented to person, place, and time and his memory is grossly intact. Mood/Affect: Patient's mood is euthymic and his affect is appropriate. Insight/Judgement: Patient's insight and judgment are fair. Laboratory Last Values WBC 7.0 k/uL (3.8-10.6) 12/17/16 12:50 RBC 4.74 m/uL (4.30-5.90) 12/17/16 12:50 Hgb 14.4 gm/dL (13.0-17.5) 12/17/16 12:50 Hct 42.9 % (39.0-53.0) 12/17/16 12:50 MCV 90.6 fL (80.0-100.0) 12/17/16 12:50 MCH 30.4 pg (25.0-35.0) 12/17/16 12:50 MCHC 33.6 g/dL (31.0-37.0) 12/17/16 12:50 RDW 14.0 % (11.5-15.5) 12/17/16 12:50 Plt Count 237 k/uL (150-450) 12/17/16 12:50 Neutrophils % 68 % 12/17/16 12:50 Lymphocytes % 25 % 12/17/16 12:50 Monocytes % 5 % 12/17/16 12:50 Eosinophils % 0 % 12/17/16 12:50 Basophils % 0 % 12/17/16 12:50 Neutrophils # 4.8 k/uL (1.3-7.7) 12/17/16 12:50 Lymphocytes # 1.8 k/uL (1.0-4.8) 12/17/16 12:50 Monocytes # 0.4 k/uL (0-1.0) 12/17/16 12:50 Eosinophils # 0.0 k/uL (0-0.7) 12/17/16 12:50 Basophils # 0.0 k/uL (0-0.2) 12/17/16 12:50 Sodium 137 mmol/L (137-145) 12/17/16 12:50 Potassium 4.6 mmol/L (3.5-5.1) 12/17/16 12:50 Chloride 101 mmol/L (98-107) 12/17/16 12:50 Carbon Dioxide 26 mmol/L (22-30) 12/17/16 12:50 Anion Gap 10 mmol/L 12/17/16 12:50 BUN 17 mg/dL (9-20) 12/17/16 12:50 Creatinine 0.90 mg/dL (0.66-1.25) 12/17/16 12:50 Est GFR (MDRD) Af Amer >60 (>60 ml/min/1.73 sqM) 12/17/16 12:50 Est GFR (MDRD) Non-Af >60 (>60 ml/min/1.73 sqM) 12/17/16 12:50 Glucose 195 mg/dL (74-99) H 12/17/16 12:50 POC Glucose (mg/dL) 106 mg/dL (75-99) H 12/18/16 12:17 POC Glu [place] Nurse Rosina Lubin 12/18/16 12:17 Calcium 8.9 mg/dL (8.4-10.2) 12/17/16 12:50 Phosphorus 3.6 mg/dL (2.5-4.5) 12/17/16 12:50 Magnesium 1.5 mg/dL (1.6-2.3) L 12/17/16 12:50 Total Bilirubin 1.2 mg/dL (0.2-1.3) 12/17/16 12:50 AST 26 U/L (17-59) 12/17/16 12:50 ALT 44 U/L (21-72) 12/17/16 12:50 Alkaline Phosphatase 68 U/L (38-126) 12/17/16 12:50 Total Protein 6.5 g/dL (6.3-8.2) 12/17/16 12:50 Albumin 3.9 g/dL (3.5-5.0) 12/17/16 12:50 Urine Color Yellow 12/17/16 13:45 Urine Appearance Clear (Clear) 12/17/16 13:45 Urine pH 5.5 (5.0-8.0) 12/17/16 13:45 Ur Specific [place] 1.019 (1.001-1.035) 12/17/16 13:45 Urine Protein Trace (Negative) H 12/17/16 13:45 Urine Glucose (UA) 1+ (Negative) H 12/17/16 13:45 Urine Ketones Negative (Negative) 12/17/16 13:45 Urine Blood Negative (Negative) 12/17/16 13:45 Urine Nitrite Negative (Negative) 12/17/16 13:45 Urine Bilirubin Negative (Negative) 12/17/16 13:45 Urine Urobilinogen <2.0 mg/dL (<2.0) 12/17/16 13:45 Ur Leukocyte Esterase Negative (Negative) 12/17/16 13:45 Salicylates <1.0 mg/dL 12/17/16 12:50 Urine Opiates Screen Detected (NotDetected) H 12/17/16 13:45 Ur Oxycodone Screen Not Detected (NotDetected) 12/17/16 13:45 Urine Methadone Screen Not Detected (NotDetected) 12/17/16 13:45 Ur Propoxyphene Screen Not Detected (NotDetected) 12/17/16 13:45 Acetaminophen <10.0 ug/mL 12/17/16 12:50 Ur Barbiturates Screen Not Detected (NotDetected) 12/17/16 13:45 U Tricyclic Antidepress Not Detected (NotDetected) 12/17/16 13:45 Ur Phencyclidine Scrn Not Detected (NotDetected) 12/17/16 13:45 Ur Amphetamines Screen Not Detected (NotDetected) 12/17/16 13:45 U Methamphetamines Scrn Not Detected (NotDetected) 12/17/16 13:45 U Benzodiazepines Scrn Not Detected (NotDetected) 12/17/16 13:45 Urine Cocaine Screen Not Detected (NotDetected) 12/17/16 13:45 U Marijuana (THC) Screen Not Detected (NotDetected) 12/17/16 13:45 Serum Alcohol <10 mg/dL 12/17/16 12:50 Risk Assessment: Patient's risk for suicide is low due to no past history of suicidal ideation, attempts, no prior psychiatric history and no drug or alcohol use Discharge Plan: Patient will be discharged today and return to live at his home. Patient was not begun on any psychotropic medication and he will continue on his medications for his medical problems. Patient was referred for outpatient counseling to improve his coping skills. I advised the patient against continuing to have young women living with him, recommended he consider volunteer work to occupy his time and he voiced looking for a part-time job. Patient Condition at Discharge: Stable Plan - Discharge Summary New Discharge Prescriptions: Continue Multivitamin/Iron/Folic Acid [Centrum Complete Multivit Tab] 1 tab PO DAILY HYDROcodone/APAP 10-325MG [[place] 10-325] 1 tab PO Q6H PRN PRN Reason: Pain Atorvastatin Calcium [Lipitor] 40 mg PO QAM amLODIPine BESYLATE/BENAZEPRIL [Lotrel 5-20 mg Capsule] 1 tab PO QAM Bisoprolol Fumarate [Zebeta] 10 mg PO DAILY Bicalutamide [Casodex] 50 mg PO DAILY sitaGLIPtin PHOS/metFORMIN HCL [Janumet 50-1,000 mg Tablet] 1 tab PO DAILY Discharge Medication List HYDROcodone/APAP 10-325MG [[place] 10-325] 1 tab PO Q6H PRN 08/28/13 [History] Multivitamin/Iron/Folic Acid [Centrum Complete Multivit Tab] 1 tab PO DAILY 04/01 [History] Atorvastatin Calcium [Lipitor] 40 mg PO QAM 11/01/14 [History] amLODIPine BESYLATE/BENAZEPRIL [Lotrel 5-20 mg Capsule] 1 tab PO QAM 10/29/15 [ History] Bisoprolol Fumarate [Zebeta] 10 mg PO DAILY 11/26/15 [History] Bicalutamide [Casodex] 50 mg PO DAILY 12/07/16 [History] sitaGLIPtin PHOS/metFORMIN HCL [Janumet 50-1,000 mg Tablet] 1 tab PO DAILY 12/07 [History] Follow up Appointment(s)/Referral(s): [facility] [Outside] - 12/25/16 10:00 am (w/ Rigo Galvan. Patient needs to arrive at 9:45am for paperwork) German Astudillo MD [Primary Care Provider] - 1 Week Discharge Disposition: HOME SELF-CARE
[2016-12-18 14:21] LABS: Hemoglobin A1C 7.8 % (4.2-6.1)
--- NOTE | 2016-12-18 14:29 | P.MDCNMH ---
History of Present Illness H&P Date: 12/18/16 This is a 71-year-old male patient of Dr. Astudillo with past medical history of coronary artery disease status post cardiac stent and CABG, diabetes mellitus type 2, hyperlipidemia, hypertension, osteoarthritis, prostate cancer status post biopsy with plan to start radiation treatment, chronic pain in the cervical spine and lumbar spine status post multiple procedures. Patient states that his oldest daughter 4 years ago with history of muscular dystrophy and from pneumonia and he has not gotten over her . He states he has had a 29-year-old girl living with him as a relocation specialist for the past 2 years which she thinks of her acid daughter. She told him yesterday that she was going to move out to move in with her girlfriend. He states he told her that he was going to hurt himself so that she would never leave. She then brought him into [facility] emergency center for evaluation and was subsequently admitted to the psychiatric unit. Patient has been evaluated by psychiatry with plan for discharge later today and follow up with outpatient counseling. Patient is complaining of left shoulder pain since he had his last pain procedure done. X-ray revealed before meals joint arthropathy correlate for chronic rotator cuff disease. Review of Systems All systems: negative Constitutional: Denies chills, Denies fatigue, Denies fever, Denies malaise, Denies sweats, Denies weight loss Eyes: denies blurred vision, denies pain Ears, nose, mouth and throat: Denies dental pain, Denies headache, Denies mouth pain, Denies sore throat, Denies vertigo Cardiovascular: Denies chest pain, Denies decreased exercise tolerance, Denies dyspnea on exertion, Denies edema, Denies leg edema, Denies lightheadedness, Denies shortness of breath, Denies syncope Respiratory: Denies cough, Denies cough with sputum, Denies dyspnea, Denies excessive sputum, Denies hemoptysis, Denies home oxygen Gastrointestinal: Denies abdominal pain, Denies diarrhea, Denies nausea, Denies vomiting Musculoskeletal: Denies myalgias Integumentary: Denies pruritus, Denies rash, Denies wounds Neurological: Denies balance difficulties, Denies change in mentation, Denies confusion, Denies gait dysfunction, Denies head injury, Denies lack of coordination, Denies loss of vision, Denies memory loss, Denies numbness, Denies weakness Psychiatric: Reports depression, Denies anxiety, Denies confusion, Denies hopelessness, Denies irritability, Denies suicidal ideation Endocrine: Denies fatigue, Denies weight change Past Medical History Past Medical History: Coronary Artery Disease (CAD), Cancer, Diabetes Mellitus, GERD/Reflux, Hyperlipidemia, Hypertension, Osteoarthritis (OA), Prostate Disorder Additional Past Medical History / Comment(s): 5 Herniated discs in neck causing headaches & numbness in arm and right lower back pain and right leg pain. Hx 4 fx ribs, current Prostate Cancer, no treatment yet-due to start radiation tx on 01-07-17 History of Any Multi-Drug Resistant Organisms: None Reported Past Surgical History: Heart Catheterization With Stent, Orthopedic Surgery, Prostate Surgery Additional Past Surgical History / Comment(s): PROSTATE BX., LT. KNEE ARTHROSCOPY X 2, CERVICAL FUSIONS, COLONOSCOPY/polypectomy-benign, ÁNGEL. CATARTACTS.Pain Procedures, rt radio frequency procedures. Past Anesthesia/Blood Transfusion Reactions: No Reported Reaction Additional Past Anesthesia/Blood Transfusion Reaction / Comment(s): does'nt like enclosed tight spaces Date of Last Stent Placement:: 1999 Smoking Status: Former smoker Additional Past Alcohol Use History / Comment(s): Patient smoked minimally and quit in 1984. He does have history of alcohol abuse and quit in 1984. No marijuana or street drug use. - Past Family History Mother Family Medical History: Cancer Additional Family Medical History / Comment(s): Mother at age 81 from uterine cancer with metastatic disease. Father Additional Family Medical History / Comment(s): Father at age 49 from coronary artery disease. Brother(s) Additional Family Medical History / Comment(s): Patient has one brother with history of smoking and no other major medical problems. Patient does not have any sisters. Daughter(s) Additional Family Medical History / Comment(s): Patient has one daughter with history of muscular dystrophy and of pneumonia. He has 1 adult daughter with no major medical problems. Patient has one son with no major medical problems. Medications and Allergies Home Medications Medication Instructions Recorded Confirmed Type HYDROcodone/APAP 10-325MG [[place] 1 tab PO Q6H PRN 08/28/13 12/18/16 History 10-325] Multivitamin/Iron/Folic Acid 1 tab PO DAILY 08/28/13 12/18/16 History [Centrum Complete Multivit Tab] Atorvastatin Calcium [Lipitor] 40 mg PO QAM 11/01/14 12/18/16 History amLODIPine BESYLATE/BENAZEPRIL 1 tab PO QAM 10/29/15 12/18/16 History [Lotrel 5-20 mg Capsule] Bisoprolol Fumarate [Zebeta] 10 mg PO DAILY 11/26/15 12/18/16 History Bicalutamide [Casodex] 50 mg PO DAILY 12/07/16 12/18/16 History sitaGLIPtin PHOS/metFORMIN HCL 1 tab PO DAILY 12/07/16 12/18/16 History [Janumet 50-1,000 mg Tablet] Allergies Allergy/AdvReac Type Severity Reaction Status Date / Time No Known Allergies Allergy Verified 12/18/16 05:18 Physical Exam Vitals: Vital Signs Temp Pulse Pulse Resp BP BP Pulse Ox 12/18/16 07:05 97.9 F 61 16 155/79 12/17/16 15:49 97 F L 72 15 165/84 98 12/17/16 12:59 97.0 F L 63 20 136/78 95 12/17/16 10:37 98.3 F 66 18 141/83 97 Intake and Output 12/17/16 12/18/16 12/18/16 22:59 06:59 14:59 Other: Weight 102.058 kg Patient Weight 12/19/16 06:59 Weight 102.058 kg Gen: This is a 71-year-old male. He is cooperative and appears to be in no acute distress. HEENT: Head is atraumatic, normocephalic. Pupils equal, round. Sclerae is anicteric. NECK: Supple. No JVD. No lymphadenopathy. No thyromegaly. LUNGS: Clear to auscultation. No wheezes or rhonchi. No intercostal retractions. HEART: Regular rate and rhythm. No murmur. ABDOMEN: Soft. Bowel sounds are present. No masses. No tenderness. EXTREMITIES: No pedal edema. No calf tenderness. NEUROLOGICAL: Patient is awake, alert and oriented x3. Cranial nerves 2 through 12 are grossly intact. Cranial Nerve Examination - Cranial Nerves Cranial Nerve II- Optic: Intact Cranial Nerve III- Oculomotor: Intact Cranial Nerve IV- Trochlear: Intact Cranial Nerve V- Trigeminal: Intact Cranial Nerve - Abducens: Intact Cranial Nerve VII- Facial: Intact Cranial Nerve VIII- Auditory: Intact Cranial Nerve IX- Glossopharyngeal: Intact Cranial Nerve X- Vagus: Intact Cranial Nerve XI- Accessory: Intact Cranial Nerve XII- Hypoglossal: Intact Results CBC & Chem 7: 12/17/16 12:50 12/17/16 12:50 Labs: Abnormal Lab Results - Last 24 Hours (Table) 12/17/16 12/17/16 12/17/16 Range/Units 12:50 13:45 19:08 Glucose 195 H (74-99) mg/dL POC Glucose (mg/dL) 192 H (75-99) mg/dL Magnesium 1.5 L (1.6-2.3) mg/dL Urine Protein Trace H (Negative) Urine Glucose (UA) 1+ H (Negative) Urine Opiates Screen Detected H (NotDetected) 12/18/16 Range/Units 06:21 Glucose (74-99) mg/dL POC Glucose (mg/dL) 104 H (75-99) mg/dL Magnesium (1.6-2.3) mg/dL Urine Protein (Negative) Urine Glucose (UA) (Negative) Urine Opiates Screen (NotDetected) Assessment and Plan Plan: 1. Depression recurrent. Patient admitted to the mental health unit. Continue current plan per psychiatrist. 2. Diabetes mellitus type 2. Continue Janumet [id number] milligrams 1 daily. 3. Hyperlipidemia. Continue Lipitor. 4. Hypertension. Continue Lotrel 5-20 milligrams daily and [place] 10 mg daily. 5. Prostate cancer. Continue Casodex 50 mg daily 6. Shoulder pain secondary to chronic rotator cuff disease. Impression and plan of care have been directed as dictated by the signing physician. Padma Monsalve nurse practitioner acting as scribe for signing physician.
== END 2016-12-18 13:47 | disposition home or self-care (01) | DRG 882 ==
LOC: EC 10:29 → 3MHU 15:09
PROVIDERS: ADMIT Psychiatry & Neurology Psychiatry; ATTEND Psychiatry & Neurology Psychiatry
DX: F43.22 Adjustment disorder with anxiety (principal); C61 Malignant neoplasm of prostate; R45.851 Suicidal ideations; I10 Essential (primary) hypertension; E11.9 Type 2 diabetes mellitus without complications; E78.5 Hyperlipidemia, unspecified; I25.10 Atherosclerotic heart disease of native coronary artery without angina pectoris; K21.9 Gastro-esophageal reflux disease without esophagitis; Z79.899 Other long term (current) drug therapy; Z87.891 Personal history of nicotine dependence; Z95.5 Presence of coronary angioplasty implant and graft
CPT/HCPCS: 36415; 80053; 80306; 80320; 81003; 83036; 83520; 83735; 84100; 85025; 99285

== ENCOUNTER → 2017-01-08 | Outpatient (CLI) | payer MEDICARE, BC ==
[2017-01-08 08:51] LABS: Basophils % (A) 0 %; CH 30.8; Eosinophils % (A) 0 %; HCT 44.5 % (39.0-53.0); HDW 2.68; HGB 14.5 gm/dL (13.0-17.5); Luc # (Auto) 0.13; Luc % (Auto) 2; Lymphocytes # (A) 2.5 k/uL (1.0-4.8); Lymphocytes % (A) 31 %; MCH 30.6 pg (25.0-35.0); MCHC 32.6 g/dL (31.0-37.0); MCV 93.8 fL (80.0-100.0); Mean Platelet Volume 7.4; Monocytes # (A) 0.6 k/uL (0-1.0); Monocytes % (A) 7 %; Neutrophils # (A) 5.1 k/uL (1.3-7.7); Neutrophils % (A) 61 %; RBC 4.74 m/uL (4.30-5.90); RDW 13.4 % (11.5-15.5); WBC 8.3 k/uL (3.8-10.6); WBC (Perox) 8.67
[2017-01-08 13:07] LABS: ALT 39 U/L (21-72); AST 22 U/L (17-59); Alkaline Phosphatase 77 U/L (38-126); Anion Gap 12 mmol/L; Blood Urea Nitrogen 17 mg/dL (9-20); Calcium 9.2 mg/dL (8.4-10.2); Carbon Dioxide 24 mmol/L (22-30); Chloride 103 mmol/L (98-107); Glucose 123 mg/dL (74-99); Non-African American GFR(MDRD) >60 (>60 ml/min/1.73 sqM); Potassium 4.4 mmol/L (3.5-5.1); Sodium 139 mmol/L (137-145); Total Bilirubin 0.9 mg/dL (0.2-1.3); Total Protein 6.9 g/dL (6.3-8.2)
[2017-01-08 18:05] LABS: Prostate Specific Antigen 0.13 ng/mL (0.00-4.00)
== END | disposition home or self-care (01) ==
LOC: LABWHC1 07:58
PROVIDERS: ATTEND Radiology Radiation Oncology
DX: C61 Malignant neoplasm of prostate (principal)
CPT/HCPCS: 36415; 80053; 84153; 85025

== ENCOUNTER → 2017-01-14 | Outpatient (CLI) | payer MEDICARE, BC ==
[2017-01-14 12:54] VITALS: BP 122/72; PULSE 69; RESP 18
--- NOTE | 2017-01-14 15:39 | P.PN ---
Subjective This is follow-up visit for this patient with a history of severe and chronic low back pain secondary to lumbar degenerative disc diseases , lumbar spondylosis with facet arthropathy, and sacroiliitis , we have done interventional pain management injection,,electroencephalogram demonstrating injection patient get good pain relief and recently we have done radiofrequency ablation of the left side sacroiliac joint, he reported that his left side improved significantly, currently is complaining of severe low back pain on the right side 1-[place] 10/325 every 6 hours and he is getting prescription from his primary care Patient denies any side effects of the medication, denies excessive drowsiness or sleepiness, denies suicidal ideation, and reports that the current pain medication is NOT helping To control the pain and improve activity of daily living Patient denies any motor or sensory deficit , patient denies any fever or night sweats, denies any change in the bowel movements or urination Physical Examinations : 1-Constitutiona : Cooperative , not in acute distress . 2-HEENT : nech ; supple , no Lymphadenopathy , no Thyromegaly , normal thyroid size . eyes : no ptosis , no icterus, no photophobia . ENT : normal of hearing , normal oropharynx , no Thrush . 3- Respiratory : Chest clear to auscultations Bilaterally , no wheezing , no Rhonchi . 4- Cardiovascular : regular rate and rhythem , S1 , S2 , no S3 , no S4. 5- Gastrointestinal : abdomen soft no tenderness , bowel sounds positive all four quadrents , no organomegally . 6- Genitourinary : Defferred . 7- neurologic : Cranial nerve II to XII intact , no focal neurological deffecit . 8-psychatric : alert , oriented X 3 , appropriate affect , intact judgment and insight . 9-Lymphatic : no Lymphadenopathy . 10- musculoskeltal : . exams of the Lumber spine = motor strength lower extremities ,thigh and legs .5/5 deep tendon reflexes : normal Knee Jerk , normal ankle Jerk . lumber facet Loading Test positive strait leg raising test positive at 30 degree , RT ,LT , Fabere test positive RT and positive LT . Range of motion: Range of motion in flexion of the lumbar spine 30 degrees Range of motion range of motion of extension of the lumbar spine 10 Sever tenderness over the Sacroiliac joint on the Right Assessment and plan = Chronic low back pain secondary to lumbar degenerative disc disease , lumbar spondylosis with facet arthropathy without myelopathy ,and sacroiliitis status post radiofrequency ablation of the sacroiliac joint on the left side - diagnoses, prognosis, and treatment options including but not limited to physical therapy, surgical interventions, interventional therapies , and medication management including narcotics and adjuvant medication were discussed with the patient and all the questions answered patient will be scheduled around the radiofrequency ablation of the sacroiliac joint on the right side Objective - Vital Signs Vital signs: Vital Signs Temp Pulse 69 01/14/17 12:46 Resp 18 01/14/17 12:46 BP 122/72 01/14/17 12:46 Pulse Ox 96 01/14/17 12:46 Intake & Output 01/13/17 01/14/17 01/14/17 18:59 06:59 18:59 Weight 99.337 kg
== END | disposition home or self-care (01) ==
LOC: PNWHC3 12:26
PROVIDERS: ATTEND Specialist
DX: M51.36 Other intervertebral disc degeneration, lumbar region (principal); M47.816 Spondylosis without myelopathy or radiculopathy, lumbar region; M46.86 Other specified inflammatory spondylopathies, lumbar region; M46.1 Sacroiliitis, not elsewhere classified
CPT/HCPCS: 99211

== ENCOUNTER 2017-01-20 18:26 | Inpatient (IN) | payer MEDICARE, BC ==
[2017-01-20] MEDS ORDERED: SODIUM CHLORIDE 0.9% 1,000 ML IV STA (19:00)
[2017-01-20] MEDS ORDERED: SODIUM CHLORIDE 0.9% 500 ML IV STA (19:00)
[2017-01-20 19:10] LABS: Basophils % (A) 0 %; CHCM 33.8; Eosinophils % (A) 1 %; HCT 39.7 % (39.0-53.0); HDW 2.71; HGB 13.6 gm/dL (13.0-17.5); Luc # (Auto) 0.07; Luc % (Auto) 1; Lymphocytes # (A) 1.3 k/uL (1.0-4.8); Lymphocytes % (A) 24 %; MCH 31.6 pg (25.0-35.0); MCHC 34.4 g/dL (31.0-37.0); Monocytes # (A) 0.3 k/uL (0-1.0); Monocytes % (A) 6 %; Neutrophils # (A) 3.8 k/uL (1.3-7.7); Neutrophils % (A) 69 %; RBC 4.32 m/uL (4.30-5.90); RDW 13.4 % (11.5-15.5); WBC 5.5 k/uL (3.8-10.6); WBC (Perox) 5.51
[2017-01-20] MEDS ORDERED: DILTIAZEM 125 MG in SODIUM CHLORIDE 0.9% 100 ML IV ONE (19:14)
[2017-01-20 19:19] LABS: AST 23 U/L (17-59); Alkaline Phosphatase 63 U/L (38-126); Anion Gap 10 mmol/L; Blood Urea Nitrogen 15 mg/dL (9-20); Calcium 9.1 mg/dL (8.4-10.2); Carbon Dioxide 22 mmol/L (22-30); Chloride 102 mmol/L (98-107); Glucose 276 mg/dL (74-99); Magnesium 1.4 mg/dL (1.6-2.3); Non-African American GFR(MDRD) >60 (>60 ml/min/1.73 sqM); Potassium 4.4 mmol/L (3.5-5.1); Sodium 134 mmol/L (137-145); Total Bilirubin 0.5 mg/dL (0.2-1.3); Total Protein 6.3 g/dL (6.3-8.2)
[2017-01-20 19:24] LABS: ALT 36 U/L (21-72)
[2017-01-20 19:30] LABS: Creatine Kinase 76 U/L (55-170)
--- NOTE | 2017-01-20 19:35 | XR ---
EXAMINATION TYPE: XR chest 2V DATE OF EXAM: 01/20/2017 COMPARISON: 07/05/2016 HISTORY: Shortness of breath TECHNIQUE: Frontal and lateral views of the chest are obtained. FINDINGS: Scattered senescent parenchymal changes noted. Hyperinflation compatible with COPD. No evidence for infiltrate. No evidence for atelectasis. Heart size is stable. Mediastinal structures are stable and grossly unremarkable. No evidence for hilar prominence. Degenerative changes dorsal spine. IMPRESSION: 1. No evidence for acute pulmonary disease.
[2017-01-20 19:39] LABS: Partial Thromboplastin Time 23.5 sec (22.0-30.0); Prothrombin Time 10.2 sec (9.0-12.0)
--- NOTE | 2017-01-20 19:42 | ED ---
General Adult HPI - General Chief complaint: Arrhythmia/Palpitations Stated complaint: Elevated Heart beat Source: patient, RN notes reviewed, old records reviewed Mode of arrival: EMS Limitations: no limitations - History of Present Illness Initial comments: 71-year-old male presents for evaluation of palpitations, lightheadedness, and shortness of breath. Patient has past medical history of hypertension, diabetes , CAD. According to the patient he does not have a past medical history of atrial fibrillation. Patient denies chest pain. Patient states he checked his blood pressure and heart rate at home, and found a elevated heart rate 140-150. This was associated with his symptoms of palpitations and shortness of breath. Patient is currently being treated for prostate cancer, receives radiation therapy. No nausea vomiting or diarrhea. No fever. Patient does state he has been eating well over the past 24-48 hours. - Related Data Home Medications Medication Instructions Recorded Confirmed HYDROcodone/APAP 10-325MG [[place] 1 tab PO TID PRN 08/28/13 01/20/17 10-325] Multivitamin/Iron/Folic Acid 1 tab PO DAILY 08/28/13 01/20/17 [Centrum Complete Multivit Tab] Atorvastatin Calcium [Lipitor] 40 mg PO QAM 11/01/14 01/20/17 amLODIPine BESYLATE/BENAZEPRIL 1 tab PO QAM 10/29/15 01/20/17 [Lotrel 5-20 mg Capsule] Bisoprolol Fumarate [Zebeta] 10 mg PO DAILY 11/26/15 01/20/17 Bicalutamide [Casodex] 50 mg PO DAILY 12/07/16 01/20/17 Allergies Allergy/AdvReac Type Severity Reaction Status Date / Time No Known Allergies Allergy Verified 01/20/17 19:21 Review of Systems ROS Statement: Those systems with pertinent positive or pertinent negative responses have been documented in the HPI. ROS Other: All systems not noted in ROS Statement are negative. Past Medical History Past Medical History: Coronary Artery Disease (CAD), Cancer, Diabetes Mellitus, GERD/Reflux, Hyperlipidemia, Hypertension, Osteoarthritis (OA), Prostate Disorder Additional Past Medical History / Comment(s): 5 Herniated discs in neck causing headaches & numbness in arm and right lower back pain and right leg pain. Hx 4 fx ribs, current Prostate Cancer, no treatment yet-due to start radiation tx on 9-21-17 History of Any Multi-Drug Resistant Organisms: None Reported Past Surgical History: Heart Catheterization With Stent, Orthopedic Surgery, Prostate Surgery Additional Past Surgical History / Comment(s): PROSTATE BX., LT. KNEE ARTHROSCOPY X 2, CERVICAL FUSIONS, COLONOSCOPY/polypectomy-benign, ÁNGEL. CATARTACTS.Pain Procedures, rt radio frequency procedures. Past Anesthesia/Blood Transfusion Reactions: No Reported Reaction Additional Past Anesthesia/Blood Transfusion Reaction / Comment(s): does'nt like enclosed tight spaces Date of Last Stent Placement:: 1999 Past Psychological History: Anxiety, Depression Smoking Status: Former smoker Past Alcohol Use History: None Reported Past Drug Use History: None Reported - Past Family History Father Additional Family Medical History / Comment(s): Father at age 49 from coronary artery disease. Brother(s) Additional Family Medical History / Comment(s): Patient has one brother with history of smoking and no other major medical problems. Patient does not have any sisters. Daughter(s) Additional Family Medical History / Comment(s): Patient has one daughter with history of muscular dystrophy and of pneumonia. He has 1 adult daughter with no major medical problems. Patient has one son with no major medical problems. Mother Family Medical History: Cancer Additional Family Medical History / Comment(s): Mother at age 81 from uterine cancer with metastatic disease. General Exam Limitations: no limitations General appearance: alert, in no apparent distress Head exam: Present: atraumatic, normocephalic Eye exam: Present: normal appearance, PERRL ENT exam: Present: normal exam, mucous membranes dry Neck exam: Present: normal inspection. Absent: tenderness, meningismus Respiratory exam: Present: normal lung sounds bilaterally. Absent: respiratory distress Cardiovascular Exam: Present: tachycardia, irregular rhythm GI/Abdominal exam: Present: soft. Absent: distended, tenderness Rectal exam: Present: normal inspection, normal rectal tone. Absent: black stool, bloody stool Extremities exam: Present: normal inspection, normal capillary refill. Absent: pedal edema Back exam: Present: normal inspection Neurological exam: Present: alert, oriented X3, CN II-XII intact. Absent: motor sensory deficit Psychiatric exam: Present: normal affect, normal mood Skin exam: Present: warm, dry, intact. Absent: cyanosis, diaphoretic Course Vital Signs 01/20/17 01/20/17 01/20/17 18:28 19:14 19:20 Temperature 98 F Pulse Rate 139 H 120 H Pulse Rate [ 131 H Crystallographer ] Respiratory 20 17 Rate Blood Pressure 144/86 141/70 O2 Sat by Pulse 97 94 L Oximetry 01/20/17 01/20/17 20:06 21:01 Temperature 98.4 F Pulse Rate 132 H 88 Pulse Rate [ Crystallographer ] Respiratory 18 16 Rate Blood Pressure 136/81 130/77 O2 Sat by Pulse 98 98 Oximetry EKG Findings - EKG Comments: EKG Findings:: EKG obtained at 1842, A. fib with RVR, rate of 135, QRS duration 86, QTC 468, no ST segment elevation. EKG obtained at 8 normal sinus rhythm , ventricular rate 89, VT interval 186, QRS duration 70, QTC 435, there is no ST segment elevation or depression Medical Decision Making - Medical Decision Making 71-year-old male presenting with palpitations shortness breath and lightheadedness. Patient is found to be in A. fib with a heart rate 135-150. Laboratory studies are obtained, stable hemoglobin, magnesium is low at 1.4 and is replaced per troponin is negative. Hemoccult and rectal exam is negative for blood. Patient is started on Cardizem and heparin infusion. He will be admitted for telemetry and cardiology evaluation. On reevaluation patient is symptom-free. Diagnosis: Atrial fibrillation with RVR, hypomagnesemia - Lab Data Result diagrams: 01/20/17 18:55 01/20/17 18:55 Lab Results 01/20/17 01/20/17 01/20/17 Range/Units 18:55 18:55 18:55 WBC 5.5 (3.8-10.6) k/uL RBC 4.32 (4.30-5.90) m/uL Hgb 13.6 (13.0-17.5) gm/dL Hct 39.7 (39.0-53.0) % MCV 92.0 (80.0-100.0) fL MCH 31.6 (25.0-35.0) pg MCHC 34.4 (31.0-37.0) g/dL RDW 13.4 (11.5-15.5) % Plt Count 261 (150-450) k/uL Neutrophils % 69 % Lymphocytes % 24 % Monocytes % 6 % Eosinophils % 1 % Basophils % 0 % Neutrophils # 3.8 (1.3-7.7) k/uL Lymphocytes # 1.3 (1.0-4.8) k/uL Monocytes # 0.3 (0-1.0) k/uL Eosinophils # 0.0 (0-0.7) k/uL Basophils # 0.0 (0-0.2) k/uL PT (9.0-12.0) sec INR (<1.2) APTT (22.0-30.0) sec Sodium 134 L (137-145) mmol/L Potassium 4.4 (3.5-5.1) mmol/L Chloride 102 (98-107) mmol/L Carbon Dioxide 22 (22-30) mmol/L Anion Gap 10 mmol/L BUN 15 (9-20) mg/dL Creatinine 0.84 (0.66-1.25) mg/dL Est GFR (MDRD) Af Amer >60 (>60 ml/min/1.73 sqM) Est GFR (MDRD) Non-Af >60 (>60 ml/min/1.73 sqM) Glucose 276 H (74-99) mg/dL Calcium 9.1 (8.4-10.2) mg/dL Magnesium 1.4 L (1.6-2.3) mg/dL Total Bilirubin 0.5 (0.2-1.3) mg/dL AST 23 (17-59) U/L ALT 36 (21-72) U/L Alkaline Phosphatase 63 (38-126) U/L Total Creatine Kinase 76 (55-170) U/L CK-MB (CK-2) 0.9 (0.0-2.4) ng/mL CK-MB (CK-2) Rel Index 1.2 Troponin I <0.012 (0.000-0.034) ng/mL Total Protein 6.3 (6.3-8.2) g/dL Albumin 3.7 (3.5-5.0) g/dL TSH 0.678 (0.465-4.680) mIU/L Stool Occult Blood (Negative) 01/20/17 01/20/17 Range/Units 18:55 20:00 WBC (3.8-10.6) k/uL RBC (4.30-5.90) m/uL Hgb (13.0-17.5) gm/dL Hct (39.0-53.0) % MCV (80.0-100.0) fL MCH (25.0-35.0) pg MCHC (31.0-37.0) g/dL RDW (11.5-15.5) % Plt Count (150-450) k/uL Neutrophils % % Lymphocytes % % Monocytes % % Eosinophils % % Basophils % % Neutrophils # (1.3-7.7) k/uL Lymphocytes # (1.0-4.8) k/uL Monocytes # (0-1.0) k/uL Eosinophils # (0-0.7) k/uL Basophils # (0-0.2) k/uL PT 10.2 (9.0-12.0) sec INR 1.0 (<1.2) APTT 23.5 (22.0-30.0) sec Sodium (137-145) mmol/L Potassium (3.5-5.1) mmol/L Chloride (98-107) mmol/L Carbon Dioxide (22-30) mmol/L Anion Gap mmol/L BUN (9-20) mg/dL Creatinine (0.66-1.25) mg/dL Est GFR (MDRD) Af Amer (>60 ml/min/1.73 sqM) Est GFR (MDRD) Non-Af (>60 ml/min/1.73 sqM) Glucose (74-99) mg/dL Calcium (8.4-10.2) mg/dL Magnesium (1.6-2.3) mg/dL Total Bilirubin (0.2-1.3) mg/dL AST (17-59) U/L ALT (21-72) U/L Alkaline Phosphatase (38-126) U/L Total Creatine Kinase (55-170) U/L CK-MB (CK-2) (0.0-2.4) ng/mL CK-MB (CK-2) Rel Index Troponin I (0.000-0.034) ng/mL Total Protein (6.3-8.2) g/dL Albumin (3.5-5.0) g/dL TSH (0.465-4.680) mIU/L Stool Occult Blood Negative (Negative) Critical Care Time Critical Care Time: Yes Total Critical Care Time: 35 Disposition Clinical Impression: Atrial fibrillation, Atrial fibrillation with RVR Disposition: ADMITTED IP TO THIS [facility] Condition: Stable Referrals: German Astudillo MD [Primary Care Provider] - 1-2 days Decision to Admit Reason: Admit from EC Decision Date: 01/20/17 Decision Time: 21:15
[2017-01-20 19:43] LABS: Creatine Kinase MB 0.9 ng/mL (0.0-2.4); Troponin I <0.012 ng/mL (0.000-0.034)
[2017-01-20] MEDS ORDERED: HEPARIN SODIUM,PORCINE 5,000 UNIT/ML 1 ML VIAL IV ONE (20:58)
[2017-01-20] MEDS ORDERED: HEPARIN SODIUM,PORCINE 5,000 UNIT/ML 1 ML VIAL IV PRN (20:58)
[2017-01-20] MEDS ORDERED: HEPARIN SODIUM,PORCINE/D5W PMX 25,000 UNIT in DEXTROSE/WATER 1 500ML.BAG IV SCH (21:00)
[2017-01-20] MEDS ORDERED: ONDANSETRON 4 MG/2 ML VIAL IVP PRN (21:39)
[2017-01-20] MEDS ORDERED: NALOXONE 0.4 MG/ML 1 ML VIAL IV PRN (21:39)
[2017-01-20] MEDS ORDERED: ACETAMINOPHEN TAB 325 MG TAB PO PRN (21:39)
[2017-01-20] MEDS ORDERED: MAGNESIUM SULFATE-D5W PMX 1 GM in DEXTROSE/WATER 1 100ML.BAG IVPB ONE (22:00)
[2017-01-20] MEDS ORDERED: HYDROcodone/APAP 10-325MG 1 EACH TAB PO PRN (22:00)
[2017-01-20 23:13] VITALS: BMI 29.7
[2017-01-21 01:18] LABS: Creatine Kinase 66 U/L (55-170)
[2017-01-21 01:31] LABS: Creatine Kinase MB 0.9 ng/mL (0.0-2.4); Troponin I <0.012 ng/mL (0.000-0.034)
[2017-01-21 06:28] LABS: Glucose,Whole Blood 130 mg/dL (75-99)
[2017-01-21 06:46] LABS: Basophils % (A) 0 %; CH 30.8; CHCM 33.2; Eosinophils % (A) 0 %; HCT 39.1 % (39.0-53.0); HDW 2.65; Luc # (Auto) 0.08; Luc % (Auto) 1; Lymphocytes # (A) 1.4 k/uL (1.0-4.8); Lymphocytes % (A) 23 %; MCH 31.1 pg (25.0-35.0); MCHC 33.3 g/dL (31.0-37.0); MCV 93.4 fL (80.0-100.0); Mean Platelet Volume 7.6; Monocytes # (A) 0.4 k/uL (0-1.0); Monocytes % (A) 6 %; Neutrophils # (A) 4.4 k/uL (1.3-7.7); Neutrophils % (A) 69 %; RBC 4.19 m/uL (4.30-5.90); RDW 13.4 % (11.5-15.5); WBC 6.4 k/uL (3.8-10.6); WBC (Perox) 6.74
[2017-01-21 06:53] LABS: ALT 44 U/L (21-72); AST 22 U/L (17-59); Alkaline Phosphatase 64 U/L (38-126); Anion Gap 9 mmol/L; Blood Urea Nitrogen 13 mg/dL (9-20); Calcium 9.3 mg/dL (8.4-10.2); Carbon Dioxide 24 mmol/L (22-30); Chloride 103 mmol/L (98-107); Glucose 128 mg/dL (74-99); Magnesium 1.5 mg/dL (1.6-2.3); Non-African American GFR(MDRD) >60 (>60 ml/min/1.73 sqM); Potassium 4.2 mmol/L (3.5-5.1); Sodium 136 mmol/L (137-145); Total Bilirubin 0.7 mg/dL (0.2-1.3); Total Protein 5.8 g/dL (6.3-8.2)
[2017-01-21 07:21] LABS: Creatine Kinase 64 U/L (55-170)
[2017-01-21 07:33] LABS: Troponin I <0.012 ng/mL (0.000-0.034)
[2017-01-21] MEDS ORDERED: ATORVASTATIN 40 MG TAB PO SCH (09:00)
[2017-01-21] MEDS ORDERED: LISINOPRIL 20 MG TAB PO SCH (09:00)
[2017-01-21] MEDS ORDERED: BISOPROLOL 5 MG TAB PO SCH (09:00)
[2017-01-21] MEDS ORDERED: ASPIRIN 81 MG PO SCH (09:00)
[2017-01-21] MEDS ORDERED: amLODIPine 5 MG TAB PO SCH (09:00)
--- NOTE | 2017-01-21 09:35 | CONS ---
CONSULTATION Mr. Berkowitz is a 71-year-old male with a known history of coronary artery disease, history of hypertension, hyperlipidemia and diabetes mellitus, who presented with symptoms of palpitation who was noted to be in atrial fibrillation on presentation. The patient has a known history of CAD, has underwent stenting of his mid right coronary artery in 2000, has underwent repeat cardiac catheterization the same year subsequent to the procedure and there was no significant progression of disease. He was last seen in our office over a year ago. He has not been compliant with his followup on a regular basis. Recently, he has been undergoing radiation therapy for his prostate cancer and yesterday was feeling tired, went home and he felt palpitation in the chest. Because of that, he came into the emergency room and was noted to be in atrial fibrillation. He denies any significant chest pain. His breathing was stable. He has no dizziness or syncope. No clear PND, orthopnea, or peripheral edema. According to him, he has been active without significant symptoms and he has lost weight. His coronary risk factors are remarkable for hypertension, hyperlipidemia, diabetes mellitus and a family history of premature coronary disease. He is a non smoker. MEDICATION: His medications at home included amlodipine benazepril 5/20 mg daily, Zebeta 10 mg daily, Casodex and Lipitor 40 mg daily. REVIEW OF SYSTEMS: RESPIRATORY SYSTEM: He has no recent wheezing. No cough. No history of documented obstructive lung disease. GI SYSTEM: No recent GI bleeding. No peptic ulcer disease. SYSTEM: He has prostate cancer, but no recent hematuria. NERVOUS SYSTEM: No history of stroke or seizure. PHYSICAL EXAMINATION: A 71-year-old male, alert, oriented, in no apparent distress. Blood pressure 133/70 with the heart rate in the 80s. HEAD: Normocephalic. EYES: Sclerae anicteric. NECK: Good upstroke. No bruit. No jugular venous distention. LUNGS: Clear to auscultation. HEART: Regular rate and rhythm. S1, S2. No S3. No rub or gallop appreciated. ABDOMEN: Soft, nontender. Positive bowel sounds. No organomegaly. EXTREMITIES: No edema. Intact distal pulses. LAB DATA: Lab data revealed a troponin less than 0.012 for 2 samples. BUN and creatinine 13 and 0.7. Potassium 4.2. Hemoglobin of 13. The initial EKG revealed atrial fibrillation with rapid ventricular response. Subsequently he converted to sinus mechanism with no acute ST-segment changes. Chest x-ray shows no acute infiltrate. IMPRESSION: 1. Paroxysmal atrial fibrillation of new onset. The patient has no prior documented history of atrial fibrillation. There is no evidence of associated ischemic event. 2. History of coronary artery disease. 3. History of hypertension. 4. History of hyperlipidemia. 5. Diet-controlled diabetes mellitus. 6. History of prostate cancer. RECOMMENDATION: From the cardiac standpoint, I will stop his IV heparin, IV Cardizem. Will resume his oral beta ted. I will add to his regimen, Xarelto, I will check his thyroid function test and an echocardiogram. If he remains stable, then he should be able to be discharged home and followed as an outpatient. Thank you for this consult. We will follow with you. ALEXSANDRA / IJN: [id number] /
--- NOTE | 2017-01-21 10:15 | ECHOF ---
Referral Reason:cad MEASUREMENTS -------- HEIGHT: 180.3 cm WEIGHT: 102.1 kg BP: 133/70 IVSd: 1.2 cm (0.6 - 1.1) LVIDd: 3.6 cm (3.9 - 5.3) LVPWd: 1.4 cm (0.6 - 1.1) IVSs: 1.5 cm LVIDs: 1.0 cm LVPWs: 1.9 cm Ao Diam: 3.5 cm (2.0 - 3.7) AV Cusp: 2.6 cm (1.5 - 2.6) LA Diam: 4.0 cm (2.7 - 3.8) MV EXCURSION: 17.354 mm (> 18.000) MV EF SLOPE: 71 mm/s (70 - 150) EPSS: 0.3 cm MV E Tobias: 0.64 m/s MV DecT: 211 ms MV A Tobias: 0.90 m/s MV E/A Ratio: 0.71 RAP: 5.00 mmHg RVSP: 26.27 mmHg FINDINGS -------- Sinus rhythm. This was a technically good study. The left ventricular size is normal. There is mild concentric left ventricular hypertrophy. Overall left ventricular systolic function is normal with, an EF between 55 - 60 %. The right ventricle is normal in size and function. The left atrium is normal in size. The right atrium is normal in size. The aortic valve is trileaflet, and appears structurally normal. No aortic stenosis or regurgitation. There is trace mitral regurgitation. Trace tricuspid regurgitation present. The right ventricular systolic pressure, as measured by Doppler, is 26.27mmHg. Pulmonic valve appears structurally normal. The aortic root size is normal. The pericardium is normal. CONCLUSIONS -------- 1. Sinus rhythm. 2. There is trace mitral regurgitation. 3. Trace tricuspid regurgitation present. 4. The right ventricular systolic pressure, as measured by Doppler, is 26.27mmHg. 5. Pulmonic valve appears structurally normal. 6. The aortic root size is normal. 7. The pericardium is normal. 8. This was a technically good study. 9. The left ventricular size is normal. 10. There is mild concentric left ventricular hypertrophy. 11. Overall left ventricular systolic function is normal with, an EF between 55 - 60 %. 12. The right ventricle is normal in size and function. 13. The left atrium is normal in size. 14. The right atrium is normal in size. 15. The aortic valve is trileaflet, and appears structurally normal. No aortic stenosis or regurgitation. [employer]: Rachel Blount RDCS
[2017-01-21 11:33] LABS: Glucose,Whole Blood 209 mg/dL (75-99)
--- NOTE | 2017-01-21 12:02 | P.HPIM ---
History of Present Illness H&P Date: 01/21/17 (this document was also both as an H&P and discharge summary) Chief Complaint: palpitations This document was also both has H&P and discharge summary as patient was discharged on evaluation This is a 71-year-old male patient of Dr. Astudillo with past medical history of coronary artery disease status post cardiac stent and CABG, diabetes mellitus type 2, hyperlipidemia, hypertension, osteoarthritis, prostate cancer status post biopsy on chemo/ radiation completed treatment , chronic pain in the cervical spine and lumbar spine status post multiple procedures who was last admitted in 12/18 for depression. Patient lost his oldest daughter 4 years ago with history of muscular dystrophy and from pneumonia and he has not gotten over her . 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 Patient was brought in yesterday with complaints of shortness of breath associated with palpitations that started right after his radiation treatment. Patient has underwent 3 days of radiation and feels dizzy and fatigued after the treatment. At 12 PM yesterday he felt dizzy, fatigued but also had shortness of breath associated with palpitation which got worse. Patient checked his heart rate at home which was between 135-150 and stated that his blood pressure was low. He called his nurse at the radiation office who asked patient to call EMS. In the ED patient had a heart rate of 139, with blood pressure 144/86 saturating well on room air. EKG was obtained which suggested A. fib with RVR with no ST or T-wave changes. Later in the evening, patient was out of atrial fibrillation and was back in sinus rhythm. Labs obtained including CBC, troponin, BNP was unremarkable except for sodium of 134 and a glucose of 276. Patient was admitted for evaluation by cardiology. On my evaluation this morning, patient was symptom-free was sitting at the bedside, comfortable. Patient was started back on his home medication and IV heparin and IV Cardizem was discontinued. Patient would be started on xarelto - 20 mg daily for anticoagulation for atrial fibrillation. Thyroid function test was done which was normal. Patient underwent echocardiogram which was normal with no valvular or wall abnormality with EF 55-60%. Patient would be discharged to home today. Review of Systems Constitutional: Denies chills, Denies fever, endorses lethargy, endorses poor appetite, Denies weakness, endorses weight loss 30 pound since start of the chemo and radiation Eyes: denies decreased vision, denies diplopia, denies discharge, denies pain Ears: deny: decreased hearing Ears, nose, mouth and throat: Denies dental pain, Denies headache, Denies nasal discharge, Denies nose pain Cardiovascular: Denies chest pain, Denies decreased exercise tolerance, Denies edema, Denies high blood pressure, Denies irregular heart beat, Denies palpitations, Denies paroxysmal nocturnal dyspnea, Denies rapid heart beat, Denies shortness of breath Respiratory: Denies congestion, Denies cough, Denies cough with sputum, Denies dyspnea, Denies home oxygen, Denies wheezing Gastrointestinal: Denies abdominal pain, Denies change in bowel habits, Denies coffee ground emesis, Denies early satiety, Denies excessive gas, Denies heartburn, Denies hematemesis, Denies hematochezia, Denies loss of appetite, Denies nausea, Denies vomiting Genitourinary: Denies dysuria, Denies flank pain, Denies kidney stones, Denies menorrhagia, Denies urgency, Denies urinary frequency Musculoskeletal: Denies gait dysfunction, Denies limitation of motion, Denies morning stiffness, Denies muscle cramps Integumentary: Denies rash, Denies wounds, Denies brittle nails, Denies change in hair/nails, Denies darkening of skin Neurological: Denies balance difficulties, Denies change in speech, Denies double vision, Denies gait dysfunction, Denies loss of vision, Denies motor disturbance, Denies numbness, Denies paralysis, Denies paresthesias, Denies seizures Psychiatric: Denies anxiety, Denies depression Endocrine: Denies excessive sweating, Denies excessive thirst, Denies high blood sugars, Denies palpitations Hematologic/Lymphatic: Denies easy bruising, Denies lymphadenopathy Past Medical History Past Medical History: Coronary Artery Disease (CAD), Cancer, Diabetes Mellitus, GERD/Reflux, Hyperlipidemia, Hypertension, Osteoarthritis (OA), Prostate Disorder Additional Past Medical History / Comment(s): 5 Herniated discs in neck causing headaches & numbness in arm and right lower back pain and right leg pain. Hx 4 fx ribs, current Prostate Cancer- radiation. 01/20/17 was third treatment. Goes 5 days a week (wednesday-wednesday) for radiation. Will need a total of [address] Moraes. History of Any Multi-Drug Resistant Organisms: None Reported Past Surgical History: Heart Catheterization With Stent, Orthopedic Surgery, Prostate Surgery Additional Past Surgical History / Comment(s): PROSTATE BX., LT. KNEE ARTHROSCOPY X 2, CERVICAL FUSIONS, COLONOSCOPY/polypectomy-benign, ÁNGEL. CATARTACTS.Pain Procedures ( sees Dr. Langley for pain management), rt radio frequency procedures. Past Anesthesia/Blood Transfusion Reactions: No Reported Reaction Additional Past Anesthesia/Blood Transfusion Reaction / Comment(s): does'nt like enclosed tight spaces Date of Last Stent Placement:: 1999 Past Psychological History: Anxiety, Depression Additional Psychological History / Comment(s): at time of this admit pt denies feeling depressed or wanting to harm self. pt's 29 year old room mate moved out. he stated "he told her that he wanted to kill himself". pt stated i only said that to get her not to leave" ( On december 18 was admitted to mental health) Smoking Status: Former smoker Past Alcohol Use History: None Reported Additional Past Alcohol Use History / Comment(s): Patient smoked minimally and quit in 1984. He does have history of alcohol abuse and quit in 1984. No marijuana or street drug use. Past Drug Use History: None Reported - Past Family History Father Additional Family Medical History / Comment(s): Father at age 49 from coronary artery disease. Brother(s) Additional Family Medical History / Comment(s): Patient has one brother with history of smoking and no other major medical problems. Patient does not have any sisters. Daughter(s) Additional Family Medical History / Comment(s): Patient has one daughter with history of muscular dystrophy and of pneumonia. He has 1 adult daughter with no major medical problems. Patient has one son with no major medical problems. Mother Family Medical History: Cancer Additional Family Medical History / Comment(s): Mother at age 81 from uterine cancer with metastatic disease. Medications and Allergies Home Medications Medication Instructions Recorded Confirmed Type HYDROcodone/APAP 10-325MG [[place] 1 tab PO TID PRN 08/28/13 01/20/17 History 10-325] Multivitamin/Iron/Folic Acid 1 tab PO DAILY 08/28/13 01/20/17 History [Centrum Complete Multivit Tab] Atorvastatin Calcium [Lipitor] 40 mg PO QAM 11/01/14 01/20/17 History amLODIPine BESYLATE/BENAZEPRIL 1 tab PO QAM 10/29/15 01/20/17 History [Lotrel 5-20 mg Capsule] Bisoprolol Fumarate [Zebeta] 10 mg PO DAILY 11/26/15 01/20/17 History Bicalutamide [Casodex] 50 mg PO DAILY 12/07/16 01/20/17 History Rivaroxaban [Xarelto] 20 mg PO DAILY #30 tab 01/21/17 Rx Allergies Allergy/AdvReac Type Severity Reaction Status Date / Time No Known Allergies Allergy Verified 01/20/17 19:21 Physical Exam Vitals: Vital Signs Temp Pulse Pulse Resp BP BP Pulse Ox 01/21/17 08:00 97.1 F L 81 16 133/70 96 01/21/17 04:00 97.0 F L 80 16 140/80 96 01/21/17 00:00 97.2 F L 96 18 150/74 98 01/20/17 21:54 97.2 F L 96 18 150/74 98 01/20/17 21:49 90 16 139/95 96 01/20/17 21:01 98.4 F 88 16 130/77 98 01/20/17 20:06 132 H 18 136/81 98 01/20/17 19:20 131 H 01/20/17 19:14 120 H 17 141/70 94 L 01/20/17 18:28 98 F 139 H 20 144/86 97 Intake and Output 01/20/17 01/21/17 01/21/17 22:59 06:59 14:59 Intake Total 599.95 893.282 Balance 599.95 893.282 Intake: Amount of Fluid Infused ( 500 ml) Intake, IV Titration 99.95 893.282 Amount Diltiazem 125 mg In 5 40 Sodium Chloride 0.9% 100 ml @ 5 MG/HR 5 mls/hr IV .Q24H ONE Rx#:[id number] Heparin Sodium,Porcine/ 19.95 153.282 D5w Pmx 25,000 unit In Dextrose/Water 1 500ml. bag @ 10 UNITS/KG/HR 19. 95 mls/hr IV .Q24H [facility] Rx #:[id number] Magnesium Sulfate-D5w Pmx 100 1 gm In Dextrose/Water 1 100ml.bag @ 100 mls/hr IVPB ONCE ONE Rx#: [id number] Sodium Chloride 0.9% 1, 75 600 000 ml @ 75 mls/hr IV . [id number] STA Rx#:[id number] Other: Voiding Method Toilet Weight 102.4 kg 102.4 kg - Constitutional General appearance: cooperative, no acute distress, obese - EENT Eyes: anicteric sclerae, PERRLA, normal appearance ENT: hearing grossly normal - Neck Neck: no lymphadenopathy, normal ROM, no other, no rigidity, no stridor, no thyromegaly - Respiratory Respiratory: bilateral: CTA, negative: diminished, dullness, rales, rhonchi - Cardiovascular Rhythm: regular Heart sounds: normal: S1, S2 Abnormal Heart Sounds: no systolic murmur, no diastolic murmur, no rub, no S3 Gallop, no S4 Gallop, no click, no other - Gastrointestinal General gastrointestinal: normal bowel sounds, soft - Integumentary Integumentary: no rash - Neurologic Neurologic: CNII-XII intact - Musculoskeletal Musculoskeletal: gait normal, strength equal bilaterally - Psychiatric Psychiatric: A&O x's 3, appropriate affect Results CBC & Chem 7: 01/21/17 06:14 01/21/17 06:14 Labs: Abnormal Lab Results - Last 24 Hours (Table) 01/20/17 01/21/17 01/21/17 Range/Units 18:55 06:14 06:14 RBC 4.19 L (4.30-5.90) m/uL Sodium 134 L 136 L (137-145) mmol/L Glucose 276 H 128 H (74-99) mg/dL POC Glucose (mg/dL) (75-99) mg/dL Magnesium 1.4 L 1.5 L (1.6-2.3) mg/dL Total Protein 5.8 L (6.3-8.2) g/dL Albumin 3.3 L (3.5-5.0) g/dL 01/21/17 Range/Units 06:27 RBC (4.30-5.90) m/uL Sodium (137-145) mmol/L Glucose (74-99) mg/dL POC Glucose (mg/dL) 130 H (75-99) mg/dL Magnesium (1.6-2.3) mg/dL Total Protein (6.3-8.2) g/dL Albumin (3.5-5.0) g/dL Thrombosis Risk Factor Assmnt - DVT/VTE Prophylaxis DVT/VTE Prophylaxis: Pharmacologic Prophylaxis ordered - Choose All That Apply Any of the Below Risk Factors Present?: Yes Each Factor Represents 1 point: Obesity (BMI >25) Other Risk Factors: Yes Each Risk Factor Represents 2 Points: Age 61-74 years Thrombosis Risk Factor Assessment Total Risk Factor Score: 3 Thrombosis Risk Factor Assessment Level: Moderate Risk Assessment and Plan Plan: 1. Paroxysmal Atrial fibrillation with RVR-Gordon Vasc 3. Continue home Lotrel 5/20 mg daily and Patel 10 mg for rate control. Currently in sinus rhythm. Xarelto for anticoagulation. Echo ordered within normal limits, normal valvular or wall abnormality seen. Cardiology follow-up as outpatient 2. Diabetes mellitus type 2. Continue Janumet 50- 1000 milligrams 1 daily. 3. Hyperlipidemia. Continue Lipitor. 4. Hypertension. Continue Lotrel 5-20 milligrams daily and Patel 10 mg daily. 5. Prostate cancer on radiation. Continue Casodex 50 mg daily 6. Shoulder pain secondary to chronic rotator cuff disease. 7. Hypomagnesemia - repleted per protocol 8. Dizziness - likely secondary to dehydration, patient advised to increase oral intake 9. DVT prophylaxis- on Xarelto, aspirin discontinued 10. Discharge home today
[2017-01-21 13:33] VITALS: BP 135/78; PULSE 74; RESP 18; TEMP 97
[2017-01-21] MEDS ORDERED: RIVAROXABAN 10 MG TAB PO SCH (17:30)
== END 2017-01-21 14:01 | disposition home or self-care (01) | DRG 310 ==
LOC: EC 18:26 → 6SEL 21:42
PROVIDERS: ADMIT Internal Medicine Geriatric Medicine; ATTEND Internal Medicine Geriatric Medicine
DX: I48.0 Paroxysmal atrial fibrillation (principal); C61 Malignant neoplasm of prostate; E11.9 Type 2 diabetes mellitus without complications; E83.42 Hypomagnesemia; E86.0 Dehydration; F32.9 Major depressive disorder, single episode, unspecified; I10 Essential (primary) hypertension; E78.5 Hyperlipidemia, unspecified; F41.9 Anxiety disorder, unspecified; I25.10 Atherosclerotic heart disease of native coronary artery without angina pectoris; K21.9 Gastro-esophageal reflux disease without esophagitis; G89.29 Other chronic pain; M19.90 Unspecified osteoarthritis, unspecified site; R42 Dizziness and giddiness; M25.519 Pain in unspecified shoulder; Z79.899 Other long term (current) drug therapy; Z95.5 Presence of coronary angioplasty implant and graft; Z91.19 Patient's noncompliance with other medical treatment and regimen; Z87.891 Personal history of nicotine dependence; Z98.1 Arthrodesis status; Z82.49 Family history of ischemic heart disease and other diseases of the circulatory system
CPT/HCPCS: 36415; 71020; 77385; 80053; 82272; 82550; 82553; 83735; 84443; 84484; 85025; 85610; 85730; 93005; 93306; 96365; 96366; 96376; 99291

== ENCOUNTER 2017-01-27 21:52 | Emergency (ER) | payer MEDICARE, BC ==
[2017-01-27] MEDS ORDERED: SODIUM CHLORIDE 0.9% 1,000 ML IV STA (22:23)
[2017-01-27] MEDS ORDERED: DILTIAZEM 5 MG/ML 5 ML VIAL IVP STA (22:23)
[2017-01-27] MEDS ORDERED: DILTIAZEM 125 MG in SODIUM CHLORIDE 0.9% 100 ML IV ONE (22:23)
[2017-01-27 22:39] LABS: Basophils % (A) 0 %; CH 32.6; CHCM 35.4; Eosinophils % (A) 0 %; HCT 39.8 % (39.0-53.0); HDW 2.59; HGB 13.4 gm/dL (13.0-17.5); Luc % (Auto) 2; Lymphocytes # (A) 1.3 k/uL (1.0-4.8); Lymphocytes % (A) 27 %; MCH 31.1 pg (25.0-35.0); MCHC 33.7 g/dL (31.0-37.0); MCV 92.4 fL (80.0-100.0); Mean Platelet Volume 7.7; Monocytes # (A) 0.4 k/uL (0-1.0); Monocytes % (A) 9 %; Neutrophils % (A) 62 %; RDW 14.4 % (11.5-15.5); WBC 4.8 k/uL (3.8-10.6); WBC (Perox) 4.98
[2017-01-27 22:47] LABS: INR 1.1 (<1.2); Partial Thromboplastin Time 27.6 sec (22.0-30.0); Prothrombin Time 11.2 sec (9.0-12.0)
--- NOTE | 2017-01-27 22:50 | XR ---
EXAMINATION TYPE: XR chest 2V DATE OF EXAM: 01/27/2017 COMPARISON: 01/20/2017 HISTORY: Weakness TECHNIQUE: Frontal and lateral views of the chest are obtained. FINDINGS: Heart and mediastinum are normal. Lungs are clear. Diaphragm is normal. Bony thorax is int act. There are chest leads. IMPRESSION: Normal chest. No change.
[2017-01-27 22:52] LABS: ALT 36 U/L (21-72); AST 23 U/L (17-59); Alkaline Phosphatase 69 U/L (38-126); Anion Gap 12 mmol/L; Blood Urea Nitrogen 22 mg/dL (9-20); Calcium 8.9 mg/dL (8.4-10.2); Carbon Dioxide 20 mmol/L (22-30); Chloride 102 mmol/L (98-107); Glucose 180 mg/dL (74-99); Magnesium 1.4 mg/dL (1.6-2.3); Non-African American GFR(MDRD) >60 (>60 ml/min/1.73 sqM); Phosphorus 3.9 mg/dL (2.5-4.5); Potassium 4.5 mmol/L (3.5-5.1); Sodium 134 mmol/L (137-145); Total Bilirubin 0.5 mg/dL (0.2-1.3); Total Protein 6.8 g/dL (6.3-8.2)
[2017-01-27 23:02] LABS: Creatine Kinase 66 U/L (55-170)
[2017-01-27 23:14] LABS: Creatine Kinase MB 0.8 ng/mL (0.0-2.4); Troponin I <0.012 ng/mL (0.000-0.034)
--- NOTE | 2017-01-27 23:58 | ED ---
General Adult HPI - General Chief complaint: Shortness of Breath Stated complaint: Chest Pain Time Seen by Provider: 01/27/17 22:23 Source: patient, family, RN notes reviewed, old records reviewed Mode of arrival: ambulatory Limitations: no limitations - History of Present Illness Initial comments: This is a 71-year-old male to the ER for evaluation. This patient presents for evaluation regarding elevated heart rate shortness of breath. Patient has significant medical history for heart disease and stents, recent diagnosis of atrial for ablation with RVR. He is taking Xarelto as directed. Patient denies being started on any new rate control medications but is unsure of any other medication changes that were made. Patient states he has occasional chest pain but is without definite this time no fevers or cough congestion or recent change in diet. No nausea vomiting or diarrhea. No fevers. - Related Data Home Medications Medication Instructions Recorded Confirmed HYDROcodone/APAP 10-325MG [[place] 1 tab PO TID PRN 08/28/13 01/27/17 10-325] Atorvastatin Calcium [Lipitor] 40 mg PO QAM 11/01/14 01/27/17 amLODIPine BESYLATE/BENAZEPRIL 1 tab PO QAM 10/29/15 01/27/17 [Lotrel 5-20 mg Capsule] Bisoprolol Fumarate [Zebeta] 10 mg PO QAM 11/26/15 01/27/17 Bicalutamide [Casodex] 50 mg PO QAM 12/07/16 01/27/17 Multivitamins, Thera [Multivitamin 1 tab PO QAM 01/27/17 01/27/17 (formulary)] Rivaroxaban [Xarelto] 20 mg PO QAM 01/27/17 01/27/17 Allergies Allergy/AdvReac Type Severity Reaction Status Date / Time No Known Allergies Allergy Verified 01/27/17 22:22 Review of Systems ROS Statement: Those systems with pertinent positive or pertinent negative responses have been documented in the HPI. ROS Other: All systems not noted in ROS Statement are negative. Past Medical History Past Medical History: Coronary Artery Disease (CAD), Cancer, Diabetes Mellitus, GERD/Reflux, Hyperlipidemia, Hypertension, Osteoarthritis (OA), Prostate Disorder Additional Past Medical History / Comment(s): 5 Herniated discs in neck causing headaches & numbness in arm and right lower back pain and right leg pain. Hx 4 fx ribs, current Prostate Cancer- radiation. 01/20/17 was third treatment. Goes 5 days a week (wednesday-wednesday) for radiation. Will need a total of [address] Moraes. History of Any Multi-Drug Resistant Organisms: None Reported Past Surgical History: Heart Catheterization With Stent, Orthopedic Surgery, Prostate Surgery Additional Past Surgical History / Comment(s): PROSTATE BX., LT. KNEE ARTHROSCOPY X 2, CERVICAL FUSIONS, COLONOSCOPY/polypectomy-benign, ÁNGEL. CATARTACTS.Pain Procedures ( sees Dr. Langley for pain management), rt radio frequency procedures. Past Anesthesia/Blood Transfusion Reactions: No Reported Reaction Additional Past Anesthesia/Blood Transfusion Reaction / Comment(s): does'nt like enclosed tight spaces Date of Last Stent Placement:: 1999 Past Psychological History: Anxiety, Depression Smoking Status: Former smoker Past Alcohol Use History: None Reported Past Drug Use History: None Reported - Past Family History Father Additional Family Medical History / Comment(s): Father at age 49 from coronary artery disease. Brother(s) Additional Family Medical History / Comment(s): Patient has one brother with history of smoking and no other major medical problems. Patient does not have any sisters. Daughter(s) Additional Family Medical History / Comment(s): Patient has one daughter with history of muscular dystrophy and of pneumonia. He has 1 adult daughter with no major medical problems. Patient has one son with no major medical problems. Mother Family Medical History: Cancer Additional Family Medical History / Comment(s): Mother at age 81 from uterine cancer with metastatic disease. General Exam Limitations: no limitations General appearance: alert, in no apparent distress Head exam: Present: atraumatic, normocephalic, normal inspection Eye exam: Present: normal appearance, PERRL, EOMI. Absent: scleral icterus, conjunctival injection, periorbital swelling ENT exam: Present: normal exam, mucous membranes moist Neck exam: Present: normal inspection. Absent: tenderness, meningismus, lymphadenopathy Respiratory exam: Present: normal lung sounds bilaterally. Absent: respiratory distress, wheezes, rales, rhonchi, stridor Cardiovascular Exam: Present: tachycardia, irregular rhythm, normal heart sounds. Absent: systolic murmur, diastolic murmur, rubs, gallop, clicks GI/Abdominal exam: Present: soft, normal bowel sounds. Absent: distended, tenderness, guarding, rebound, rigid Extremities exam: Present: normal inspection, full ROM, normal capillary refill. Absent: tenderness, pedal edema, joint swelling, calf tenderness Back exam: Present: normal inspection Neurological exam: Present: alert, oriented X3, CN II-XII intact Psychiatric exam: Present: normal affect, normal mood Skin exam: Present: warm, dry, intact, normal color. Absent: rash Course Vital Signs 01/27/17 01/27/17 01/27/17 21:58 22:24 22:33 Temperature 98.9 F Pulse Rate 145 H 141 H 127 H Respiratory 18 16 Rate Blood Pressure 133/79 126/82 O2 Sat by Pulse 97 98 97 Oximetry 01/27/17 01/27/17 01/27/17 22:35 22:36 22:59 Temperature Pulse Rate 117 H 104 H 97 Respiratory 18 18 16 Rate Blood Pressure 108/73 126/84 O2 Sat by Pulse 96 95 98 Oximetry 01/27/17 01/28/17 01/28/17 23:52 00:18 00:20 Temperature Pulse Rate 89 86 85 Respiratory 18 18 17 Rate Blood Pressure 107/72 136/82 130/80 O2 Sat by Pulse 97 98 99 Oximetry 01/28/17 00:22 Temperature Pulse Rate 79 Respiratory Rate Blood Pressure 124/79 O2 Sat by Pulse 98 Oximetry - Reevaluation(s) Reevaluation #1: 01/28/17 00:10 Patient has adequate heart rate control after given Cardizem EKG Findings - EKG Comments: EKG Findings:: EKG shows A. fib with RVR rate 133, QRS 86, QTC 482 Medical Decision Making - Medical Decision Making 71 male ER for evaluation regarding elevated heart rate shortness of breath and found to be in atrial fibrillation with RVR, patient has created an adequate heart rate control at this time. No shortness of breath, patient is taking anticoagulation - Lab Data Result diagrams: 01/27/17 22:28 01/27/17 22:28 Lab Results 01/27/17 01/27/17 01/27/17 Range/Units 22:28 22:28 22:28 WBC 4.8 (3.8-10.6) k/uL RBC 4.30 (4.30-5.90) m/uL Hgb 13.4 (13.0-17.5) gm/dL Hct 39.8 (39.0-53.0) % MCV 92.4 (80.0-100.0) fL MCH 31.1 (25.0-35.0) pg MCHC 33.7 (31.0-37.0) g/dL RDW 14.4 (11.5-15.5) % Plt Count 240 (150-450) k/uL Neutrophils % 62 % Lymphocytes % 27 % Monocytes % 9 % Eosinophils % 0 % Basophils % 0 % Neutrophils # 3.0 (1.3-7.7) k/uL Lymphocytes # 1.3 (1.0-4.8) k/uL Monocytes # 0.4 (0-1.0) k/uL Eosinophils # 0.0 (0-0.7) k/uL Basophils # 0.0 (0-0.2) k/uL PT (9.0-12.0) sec INR (<1.2) APTT (22.0-30.0) sec Sodium 134 L (137-145) mmol/L Potassium 4.5 (3.5-5.1) mmol/L Chloride 102 (98-107) mmol/L Carbon Dioxide 20 L (22-30) mmol/L Anion Gap 12 mmol/L BUN 22 H (9-20) mg/dL Creatinine 0.84 (0.66-1.25) mg/dL Est GFR (MDRD) Af Amer >60 (>60 ml/min/1.73 sqM) Est GFR (MDRD) Non-Af >60 (>60 ml/min/1.73 sqM) Glucose 180 H (74-99) mg/dL Calcium 8.9 (8.4-10.2) mg/dL Phosphorus 3.9 (2.5-4.5) mg/dL Magnesium 1.4 L (1.6-2.3) mg/dL Total Bilirubin 0.5 (0.2-1.3) mg/dL AST 23 (17-59) U/L ALT 36 (21-72) U/L Alkaline Phosphatase 69 (38-126) U/L Total Creatine Kinase 66 (55-170) U/L CK-MB (CK-2) 0.8 (0.0-2.4) ng/mL CK-MB (CK-2) Rel Index 1.2 Troponin I <0.012 (0.000-0.034) ng/mL NT-Pro-B Natriuret Pep pg/mL Total Protein 6.8 (6.3-8.2) g/dL Albumin 4.1 (3.5-5.0) g/dL 01/27/17 01/27/17 Range/Units 22:28 22:28 WBC (3.8-10.6) k/uL RBC (4.30-5.90) m/uL Hgb (13.0-17.5) gm/dL Hct (39.0-53.0) % MCV (80.0-100.0) fL MCH (25.0-35.0) pg MCHC (31.0-37.0) g/dL RDW (11.5-15.5) % Plt Count (150-450) k/uL Neutrophils % % Lymphocytes % % Monocytes % % Eosinophils % % Basophils % % Neutrophils # (1.3-7.7) k/uL Lymphocytes # (1.0-4.8) k/uL Monocytes # (0-1.0) k/uL Eosinophils # (0-0.7) k/uL Basophils # (0-0.2) k/uL PT 11.2 (9.0-12.0) sec INR 1.1 (<1.2) APTT 27.6 (22.0-30.0) sec Sodium (137-145) mmol/L Potassium (3.5-5.1) mmol/L Chloride (98-107) mmol/L Carbon Dioxide (22-30) mmol/L Anion Gap mmol/L BUN (9-20) mg/dL Creatinine (0.66-1.25) mg/dL Est GFR (MDRD) Af Amer (>60 ml/min/1.73 sqM) Est GFR (MDRD) Non-Af (>60 ml/min/1.73 sqM) Glucose (74-99) mg/dL Calcium (8.4-10.2) mg/dL Phosphorus (2.5-4.5) mg/dL Magnesium (1.6-2.3) mg/dL Total Bilirubin (0.2-1.3) mg/dL AST (17-59) U/L ALT (21-72) U/L Alkaline Phosphatase (38-126) U/L Total Creatine Kinase (55-170) U/L CK-MB (CK-2) (0.0-2.4) ng/mL CK-MB (CK-2) Rel Index Troponin I (0.000-0.034) ng/mL NT-Pro-B Natriuret Pep 94 pg/mL Total Protein (6.3-8.2) g/dL Albumin (3.5-5.0) g/dL - Radiology Data Radiology results: report reviewed (Chest x-ray is negative for acute disease), image reviewed Disposition Clinical Impression: Atrial fibrillation, Atrial fibrillation with RVR Disposition: HOME SELF-CARE Instructions: Atrial Fibrillation (ED) Referrals: German Astudillo MD [Primary Care Provider] - 1-2 days
[2017-01-28] MEDS ORDERED: METOPROLOL TARTRATE 5 MG/5 ML VIAL IVP STA (00:11)
[2017-01-28 00:22] VITALS: PULSE 79
[2017-01-28] MEDS ORDERED: MAGNESIUM OXIDE 400 MG TAB PO STA (00:33)
[2017-01-28 00:57] VITALS: BP 108/77; RESP 18; TEMP 97.2
== END 2017-01-28 00:56 | disposition home or self-care (01) ==
LOC: EC 21:52
DX: I48.91 Unspecified atrial fibrillation (principal); R07.9 Chest pain, unspecified; R06.02 Shortness of breath; I25.10 Atherosclerotic heart disease of native coronary artery without angina pectoris; E11.9 Type 2 diabetes mellitus without complications; K21.9 Gastro-esophageal reflux disease without esophagitis; E78.5 Hyperlipidemia, unspecified; I10 Essential (primary) hypertension; M19.90 Unspecified osteoarthritis, unspecified site; F32.9 Major depressive disorder, single episode, unspecified; F41.9 Anxiety disorder, unspecified; Z87.891 Personal history of nicotine dependence; Z79.01 Long term (current) use of anticoagulants; Z79.899 Other long term (current) drug therapy; Z85.46 Personal history of malignant neoplasm of prostate; Z95.818 Presence of other cardiac implants and grafts
CPT/HCPCS: 36415; 71020; 80053; 82550; 82553; 83735; 83880; 84100; 84484; 85025; 85610; 85730; 93005; 96365; 96366; 96375; 96376; 99285

== ENCOUNTER → 2017-02-18 | Outpatient (CLI) | payer MEDICARE, BC ==
[2017-02-18 11:51] VITALS: BP 168/83; PULSE 75; RESP 18
--- NOTE | 2017-02-18 13:10 | P.PN ---
Subjective Progress Note Date: 02/18/17 This is a follow-up visit for this 71 years old male with a history of chronic severe low back pain diagnosed with lumbar spondylosis and sacroiliitis, we have done sacroiliac joint steroid injection in the past patient gets good pain relief and we have done radiofrequency ablation of the left sacroiliac joint, and he is scheduled to have the radiofrequency on the right sacroiliac joint, recently patient developed atrial fibrillation and he is currently on XARALTO , and his kids taking the [place] 10/325 every 6 hours for pain, given the prescription from his primary care he denies any side effects of the medication he denies any excessive drowsiness or sleepiness, denies any change in the bowel movement or urination he denies any fever or night sweats. Objective - Vital Signs Vital signs: Vital Signs Temp Pulse 75 02/18/17 11:45 Resp 18 02/18/17 11:45 BP 168/83 02/18/17 11:45 Pulse Ox 98 02/18/17 11:45 Intake & Output 02/17/17 02/18/17 02/18/17 18:59 06:59 18:59 Weight 99.79 kg - Exam Physical Examinations : 1-Constitutiona : Cooperative , not in acute distress . 2-HEENT : nech ; supple , no Lymphadenopathy , normal thyroid size . eyes : no ptosis , no icterus, no photophobia . ENT : normal of hearing , normal oropharynx , no Thrush . 3- Respiratory : Chest clear to auscultations Bilaterally , no wheezing , no Rhonchi . 4- Cardiovascular : irregular rate and rhythem , S1 , S2 , no S3 , no S4. 5- Gastrointestinal : abdomen soft no tenderness , bowel sounds positive all four quadrents , no organomegally . 6- Genitourinary : Defferred . 7- neurologic : Cranial nerve II to XII intact , no focal neurological deffecit . 8-psychatric : alert , oriented X 3 , appropriate affect , intact judgment and insight . 9-Lymphatic : no Lymphadenopathy . 10- musculoskeltal : , Lumber spine = normal moter stegnth lower extremities ,thigh and legs .5/5 deep tendon reflexes : normal Knee Jerk , normal ankle Jerk . positive lumber facet Loading Test strait leg raising test positive at 30 degree , RT ,LT , Fabere test positive RT and positive LT . Sever tenderness over the Sacroiliac joint on the Right , Assessment and Plan Plan: Assessment and plan= chronic low back pain secondary to lumbar degenerative disc disease , lumbar spondylosis with lumbar facet arthropathy and sacroiliitis Patient had good result after the radiofrequency ablation of the left sacroiliac joint, and he will be good candidate to have the radiofrequency ablation of the right sacroiliac joint He has to stop his visit for 3 days before the procedure, Medication managements= patient getting prescription refills from his primary care Interventional pain management= radiofrequency ablation of the right sacroiliac joint (radiofrequency ablation of the right side and the result from his L5-S1 and the radiofrequency , Time with Patient: Less than 30
== END | disposition home or self-care (01) ==
LOC: PNWHC3 10:42
PROVIDERS: ATTEND Specialist
DX: M51.36 Other intervertebral disc degeneration, lumbar region (principal); M47.816 Spondylosis without myelopathy or radiculopathy, lumbar region; M46.1 Sacroiliitis, not elsewhere classified
CPT/HCPCS: 99211

== ENCOUNTER 2017-04-13 10:34 | Emergency (ER) | payer MEDICARE, BC ==
--- NOTE | 2017-04-13 10:59 | ED ---
General Adult HPI - General Chief complaint: Back Pain/Injury Stated complaint: Back pain Time Seen by Provider: 04/13/17 10:49 Source: patient, RN notes reviewed Mode of arrival: ambulatory Limitations: no limitations - History of Present Illness Initial comments: 71-year-old male presents to the emergency Department chief complaint of right- sided back pain that radiates on the right leg. Patient has a history of this back pain in the past. He states he has an MRI but many years ago. He used to get injections in his back but due to the fact that he is on blood thinners they would like to these before. Patient states he sees pediatric he has not bled for the pain. He states that he just wants to know what's causing the pain doesn't want to have to take pain medications every day. Patient denies any new falls traumas or injuries. Patient has a loss by bladder function with this or any saddle anesthesia. Patient was concerned due to his continued pain and discomforts so he thought that he should be seen.Patient denies any recent fever, chills, shortness of breath, chest pain, abdominal pain, nausea vomiting , numbness or tingling, dysuria or hematuria, constipation or diarrhea, headaches or visual changes, or any other current symptoms. - Related Data Home Medications Medication Instructions Recorded Confirmed HYDROcodone/APAP 10-325MG [[place] 1 tab PO TID PRN 08/28/13 04/13/17 10-325] Atorvastatin Calcium [Lipitor] 40 mg PO QAM 11/01/14 04/13/17 Bisoprolol Fumarate [Zebeta] 10 mg PO DAILY 11/26/15 04/13/17 Bicalutamide [Casodex] 50 mg PO HS 12/07/16 04/13/17 Rivaroxaban [Xarelto] 20 mg PO DAILY 01/27/17 04/13/17 Losartan [Cozaar] 50 mg PO HS 03/21/17 04/13/17 Tamsulosin HCl [Flomax] 0.4 mg PO DAILY 03/21/17 04/13/17 Allergies Allergy/AdvReac Type Severity Reaction Status Date / Time No Known Allergies Allergy Verified 04/13/17 10:50 Review of Systems ROS Statement: Those systems with pertinent positive or pertinent negative responses have been documented in the HPI. ROS Other: All systems not noted in ROS Statement are negative. Past Medical History Past Medical History: Coronary Artery Disease (CAD), Cancer, Diabetes Mellitus, GERD/Reflux, Hyperlipidemia, Hypertension, Osteoarthritis (OA), Prostate Disorder Additional Past Medical History / Comment(s): 5 Herniated discs in neck causing headaches & numbness in arm and right lower back pain and right leg pain. Hx 4 fx ribs, current Prostate Cancer- radiation. 01/20/17 was third treatment. Goes 5 days a week (wednesday-wednesday) for radiation. Will need a total of [address] Moraes. History of Any Multi-Drug Resistant Organisms: None Reported Past Surgical History: Heart Catheterization With Stent, Orthopedic Surgery, Prostate Surgery Additional Past Surgical History / Comment(s): PROSTATE BX., LT. KNEE ARTHROSCOPY X 2, CERVICAL FUSIONS, COLONOSCOPY/polypectomy-benign, ÁNGEL. CATARTACTS.Pain Procedures ( sees Dr. Langley for pain management), rt radio frequency procedures. Past Anesthesia/Blood Transfusion Reactions: No Reported Reaction Additional Past Anesthesia/Blood Transfusion Reaction / Comment(s): does'nt like enclosed tight spaces Date of Last Stent Placement:: 1999 Past Psychological History: Anxiety, Depression Smoking Status: Former smoker Past Alcohol Use History: None Reported Past Drug Use History: None Reported - Past Family History Father Additional Family Medical History / Comment(s): Father at age 49 from coronary artery disease. Brother(s) Additional Family Medical History / Comment(s): Patient has one brother with history of smoking and no other major medical problems. Patient does not have any sisters. Daughter(s) Additional Family Medical History / Comment(s): Patient has one daughter with history of muscular dystrophy and of pneumonia. He has 1 adult daughter with no major medical problems. Patient has one son with no major medical problems. Mother Family Medical History: Cancer Additional Family Medical History / Comment(s): Mother at age 81 from uterine cancer with metastatic disease. General Exam - General Exam Comments Initial Comments: General: The patient is awake and alert, in no distress, and does not appear acutely ill. Eye: Pupils are equal, round and reactive to light, extra-ocular movements are intact; there is normal conjunctiva bilaterally. No signs of icterus. Ears, nose, mouth and throat: There are moist mucous membranes and no oral lesions. Neck: The neck is supple, there is no tenderness. Cardiovascular: There is a regular rate and rhythm. No murmur, rub or gallop is appreciated. Respiratory: Lungs are clear to auscultation, respirations are non-labored, breath sounds are equal. No wheezes, stridor, rales, or rhonchi. Gastrointestinal: Soft, non-distended, non-tender abdomen without masses or organomegaly noted. There is no rebound or guarding present. No CVA tenderness. Bowel sounds are unremarkable. Back: There is no tenderness to palpation in the midline. There is no obvious deformity. No rashes noted. Positive straight leg raise on the right Musculoskeletal: Normal ROM, no tenderness, There is no pedal edema. There is no calf tenderness or swelling. Sensation intact. Pulses equal bilaterally 2+. Neurological: CN II-XII intact, There are no obvious motor or sensory deficits. Coordination appears grossly intact. Speech is normal. Skin: Skin is warm and dry and no rashes or lesions are noted. Psychiatric: Cooperative, appropriate mood & affect, normal judgment. Limitations: no limitations Course Vital Signs 04/13/17 10:41 Temperature 98.5 F Pulse Rate 84 Respiratory 20 Rate Blood Pressure 109/78 O2 Sat by Pulse 98 Oximetry Medical Decision Making - Medical Decision Making 71-year-old male presents for back pain. Patient does suffer from chronic back pain he states is just flared up at this time. At this time patient's CAT scan is reviewed. Patient does appear to have an extensive arthritis extensive chronic changes in the back. We discussed this is most likely contributing to his back pain. We discussed following up with a neurosurgeon we will give him neurology on-call. We discussed also following up with his back doctor and using his pain medications as prescribed. At this time the patient will be discharged home. All his questions have been answered. He is in agreement plan. - Radiology Data Radiology results: report reviewed, image reviewed Disposition Clinical Impression: Acute exacerbation of chronic low back pain Disposition: HOME SELF-CARE Condition: Stable Instructions: Chronic Back Pain (ED) Additional Instructions: Please use medication as discussed. Please follow up with family doctor if symptoms have not improved over the next two days. Please return to the emergency room if your symptoms increase or worsen or for any other concerns. Referrals: German Astudillo MD [Primary Care Provider] - 1-2 days Jadiel Wolff MD [STAFF PHYSICIAN] - 1-2 days Time of Disposition: 12:15
--- NOTE | 2017-04-13 12:00 | CT ---
EXAMINATION TYPE: CT lumbar spine wo con DATE OF EXAM: 04/13/2017 COMPARISON: MRI 01/23/2016 HISTORY: 71-year-old male complains of low back pain with radiation down the right leg TECHNIQUE: Contiguous axial scanning of the lumbar spine without IV contrast. Coronal and sagittal re constructions performed. CT DLP: 975 mGycm Automated exposure control for dose reduction was used. FINDINGS: There is a degenerated levoconvex curvature of the lumbar spine. Moderate multilevel degenerative dis c disease with disc space narrowing and altered discs. Vacuum phenomenon is present from T10 down thr ough L2 levels. There is vascular disease with degenerative thinning of the intraspinous ligaments and abutment of th e spinous process with sclerosis and cystic change. Hypertrophic facet arthropathy especially in the mid to lower lumbar spine. Vertebral body heights are preserved. There is grade 1 retrolisthesis at L2-L3. At T12-L1, no significant canal or foraminal stenosis. At L1-L2, is disc bulge without significant canal or foraminal stenosis seen. At L2-L3, trace grade 1 retrolisthesis with diffuse disc bulge and facet degenerative change. Changes result in mild bilateral neuroforaminal stenosis. No significant spinal canal stenosis CT. At L3-L4, there is disc bulge with ligamentum flavum thickening and facet arthropathy. There may be i mpingement of the traversing right L4 nerve root. Changes also result in moderate to severe right and mild left neural foraminal stenosis. Relatively similar, possibly minimally worsened from 01/23/2016. At L4-L5, there is diffuse disc bulge with facet arthropathy. Changes result in moderate to severe le ft and mild right neural foraminal stenosis. No significant spinal canal stenosis seen. At L5-S1, there is disc bulge with left intraforaminal disc osteophyte complex causing at least moder ate left neuroforaminal stenosis. Mild narrowing of the right neuroforamen, relatively similar. No prevertebral or paravertebral soft tissue abnormality seen. IMPRESSION: 1. MODERATE MULTILEVEL DEGENERATIVE DISC DISEASE. ADDITIONAL HYPERTROPHIC FACET ARTHROPATHY MID TO LO WER LUMBAR SPINE. TRACE GRADE 1 RETROLISTHESIS AT L2-L3 AND A DEGENERATED LEVOCONVEX CURVATURE. 2. NO VERTEBRAL COMPRESSION COLLAPSE. 3. AT L3-L4, THERE MAY BE IMPINGEMENT OF THE TRAVERSING RIGHT L4 NERVE ROOT ALONG WITH CHANGES CAUSIN G MODERATE TO SEVERE RIGHT NEURAL FORAMINAL STENOSIS. RELATIVELY SIMILAR, POSSIBLY MINIMALLY WORSENED FROM 01/23/2016. 4. AT L4-L5, THERE IS SIMILAR MODERATE TO SEVERE LEFT NEUROFORAMINAL STENOSIS. 5. AT L5-S1, AN INTRAFORAMINAL DISC OSTEOPHYTE COMPLEX CAUSES AT LEAST MODERATE LEFT NEURAL FORAMINAL STENOSIS, RELATIVELY SIMILAR. 6.BAASTRUP'S DISEASE.
[2017-04-13] MEDS ORDERED: HYDROmorphone 1 MG/ML 1 ML SYRINGE IM STA (12:15)
[2017-04-13 12:33] VITALS: BP 117/89; PULSE 80; RESP 16; TEMP 98.1
== END 2017-04-13 12:31 | disposition home or self-care (01) ==
LOC: EC 10:34
DX: G89.29 Other chronic pain (principal); M54.5 Low back pain; M79.604 Pain in right leg; E78.5 Hyperlipidemia, unspecified; I10 Essential (primary) hypertension; I25.10 Atherosclerotic heart disease of native coronary artery without angina pectoris; Z87.891 Personal history of nicotine dependence; Z79.01 Long term (current) use of anticoagulants; Z79.899 Other long term (current) drug therapy; Z85.46 Personal history of malignant neoplasm of prostate; Z92.3 Personal history of irradiation; Z98.890 Other specified postprocedural states; Z82.69 Family history of other diseases of the musculoskeletal system and connective tissue
CPT/HCPCS: 72131; 99283; 96372; J1170

== ENCOUNTER → 2017-04-20 | Outpatient (CLI) | payer MEDICARE, BC ==
[2017-04-20 09:39] LABS: Basophils % (A) 0 %; Eosinophils % (A) 0 %; HCT 42.4 % (39.0-53.0); HGB 13.9 gm/dL (13.0-17.5); Lymphocytes # (A) 0.6 k/uL (1.0-4.8); Lymphocytes % (A) 15 %; MCH 30.9 pg (25.0-35.0); MCHC 32.8 g/dL (31.0-37.0); MCV 94.4 fL (80.0-100.0); Mean Platelet Volume 7.4; Monocytes # (A) 0.2 k/uL (0-1.0); Monocytes % (A) 5 %; Neutrophils # (A) 3.2 k/uL (1.3-7.7); Neutrophils % (A) 78 %; Platelet Count 196 k/uL (150-450); RBC 4.49 m/uL (4.30-5.90); RDW 14.2 % (11.5-15.5)
[2017-04-20 09:56] LABS: ALT 37 U/L (21-72); AST 20 U/L (17-59); Alkaline Phosphatase 61 U/L (38-126); Anion Gap 11 mmol/L; Blood Urea Nitrogen 15 mg/dL (9-20); Calcium 9.6 mg/dL (8.4-10.2); Carbon Dioxide 30 mmol/L (22-30); Chloride 98 mmol/L (98-107); Cholesterol 146 mg/dL (<200); Creatine Kinase 70 U/L (55-170); Glucose 157 mg/dL (74-99); HDL Cholesterol 53 mg/dL (40-60); LDL Cholesterol,Calculated 63 mg/dL (0-99); Magnesium 1.5 mg/dL (1.6-2.3); Potassium 4.3 mmol/L (3.5-5.1); Sodium 139 mmol/L (137-145); Total Bilirubin 0.8 mg/dL (0.2-1.3); Total Protein 6.7 g/dL (6.3-8.2); Triglycerides 149 mg/dL (<150); Uric Acid 5.2 mg/dL (3.5-8.5)
[2017-04-20 10:08] LABS: Appearance,Urine Clear (Clear); Bilirubin,Urine Negative (Negative); Blood,Urine Negative (Negative); Color,Urine Yellow; Glucose,Urine (UA) Negative (Negative); Ketones,Urine Negative (Negative); Leukocyte Esterase,Urine Negative (Negative); Mucus,Urine Few /hpf; Nitrite,Urine Negative (Negative); Protein,Urine 1+ (Negative); Specific Gravity,Urine 1.021 (1.001-1.035); Squamous Epithelial Cell,Urine 1 /hpf (0-4); Urobilinogen,Urine <2.0 mg/dL (<2.0); WBC,Urine 2 /hpf (0-5)
[2017-04-20 10:12] LABS: T4, Free (Free Thyroxine) 1.59 ng/dL (0.78-2.19)
[2017-04-20 18:48] LABS: Hemoglobin A1C 6.5 % (4.0-6.0)
== END | disposition home or self-care (01) ==
LOC: LABWHC1 08:53
PROVIDERS: ATTEND Radiology Radiation Oncology
DX: Z00.00 Encounter for general adult medical examination without abnormal findings (principal); E78.00 Pure hypercholesterolemia, unspecified; E11.9 Type 2 diabetes mellitus without complications; C61 Malignant neoplasm of prostate; I10 Essential (primary) hypertension; M47.812 Spondylosis without myelopathy or radiculopathy, cervical region
CPT/HCPCS: 36415; 80053; 80061; 81001; 82043; 82306; 82550; 82570; 83036; 83735; 84153; 84439; 84443; 84550; 85025

== ENCOUNTER 2017-04-22 10:08 | Inpatient (IN) | payer MEDICARE, BC ==
--- NOTE | 2017-04-22 10:51 | ED ---
General Adult HPI - General Chief complaint: Chest Pain Stated complaint: Chest pressure Time Seen by Provider: 04/22/17 10:20 Source: patient, RN notes reviewed, old records reviewed Mode of arrival: ambulatory Limitations: no limitations - History of Present Illness Initial comments: 71-year-old male presents for evaluation of chest pain shortness of breath. Patient was seen by his oncologist today and encouraged to present to the emergency department for evaluation. He has history of prostate cancer, has completed radiation with last treatment approximately one month ago. Also has past medical history of hypertension and coronary artery disease status post stent in 1999. Pain has been present over the last 1 week, left anterior chest pressure. No associated diaphoresis. There was associated shortness of breath and worsening pain with exertion. Patient denies any radiation. Describes the pain as a pressure. No cough, no shortness of breath at rest. No fever. No abdominal pain nausea vomiting. Patient has history of atrial fibrillation status post ablation, currently on xarelto. - Related Data Home Medications Medication Instructions Recorded Confirmed Atorvastatin Calcium [Lipitor] 40 mg PO QA 11/01/14 04/22/17 Bisoprolol Fumarate [Zebeta] 10 mg PO DAILY 11/26/15 04/22/17 Bicalutamide [Casodex] 50 mg PO DAILY 12/07/16 04/22/17 Rivaroxaban [Xarelto] 20 mg PO HS 01/27/17 04/22/17 Losartan [Cozaar] 50 mg PO HS 03/21/17 04/22/17 Tamsulosin HCl [Flomax] 0.4 mg PO DAILY 03/21/17 04/22/17 Allergies Allergy/AdvReac Type Severity Reaction Status Date / Time No Known Allergies Allergy Verified 04/22/17 10:36 Review of Systems ROS Statement: Those systems with pertinent positive or pertinent negative responses have been documented in the HPI. ROS Other: All systems not noted in ROS Statement are negative. Past Medical History Past Medical History: Coronary Artery Disease (CAD), Cancer, Diabetes Mellitus, GERD/Reflux, Hyperlipidemia, Hypertension, Osteoarthritis (OA), Prostate Disorder Additional Past Medical History / Comment(s): 5 Herniated discs in neck causing headaches & numbness in arm and right lower back pain and right leg pain. Hx 4 fx ribs, current Prostate Cancer- radiation. 01/20/17 was third treatment. Goes 5 days a week (wednesday-wednesday) for radiation. Will need a total of [address] Moraes. History of Any Multi-Drug Resistant Organisms: None Reported Past Surgical History: Heart Catheterization With Stent, Orthopedic Surgery, Prostate Surgery Additional Past Surgical History / Comment(s): PROSTATE BX., LT. KNEE ARTHROSCOPY X 2, CERVICAL FUSIONS, COLONOSCOPY/polypectomy-benign, ÁNGEL. CATARTACTS.Pain Procedures ( sees Dr. Langley for pain management), rt radio frequency procedures. Past Anesthesia/Blood Transfusion Reactions: No Reported Reaction Additional Past Anesthesia/Blood Transfusion Reaction / Comment(s): does'nt like enclosed tight spaces Date of Last Stent Placement:: 1999 Past Psychological History: Anxiety, Depression Smoking Status: Former smoker Past Alcohol Use History: None Reported Past Drug Use History: None Reported - Past Family History Father Additional Family Medical History / Comment(s): Father at age 49 from coronary artery disease. Brother(s) Additional Family Medical History / Comment(s): Patient has one brother with history of smoking and no other major medical problems. Patient does not have any sisters. Daughter(s) Additional Family Medical History / Comment(s): Patient has one daughter with history of muscular dystrophy and of pneumonia. He has 1 adult daughter with no major medical problems. Patient has one son with no major medical problems. Mother Family Medical History: Cancer Additional Family Medical History / Comment(s): Mother at age 81 from uterine cancer with metastatic disease. General Exam Limitations: no limitations General appearance: alert, in no apparent distress Head exam: Present: atraumatic, normocephalic Eye exam: Present: normal appearance, PERRL ENT exam: Present: normal exam Neck exam: Present: normal inspection. Absent: tenderness, meningismus Respiratory exam: Present: normal lung sounds bilaterally. Absent: respiratory distress, wheezes, rales Cardiovascular Exam: Present: regular rate, normal rhythm GI/Abdominal exam: Present: soft. Absent: distended, tenderness Extremities exam: Present: normal inspection, normal capillary refill. Absent: pedal edema Back exam: Present: normal inspection, full ROM. Absent: tenderness Neurological exam: Present: alert, oriented X3, CN II-XII intact. Absent: motor sensory deficit Psychiatric exam: Present: normal affect, normal mood Skin exam: Present: warm, dry, intact. Absent: cyanosis, diaphoretic Course Vital Signs 04/22/17 10:11 Temperature 97.2 F L Pulse Rate 80 Respiratory 17 Rate Blood Pressure 140/81 O2 Sat by Pulse 99 Oximetry EKG Findings - EKG Comments: EKG Findings:: EKG shows normal sinus rhythm, Q wave and T wave inversion in leads 3 and aVF, no ST segment elevation, ventricular rate 80, HI interval 206, QRS duration 86, QTC 454 Medical Decision Making - Medical Decision Making 71-year-old male presented for evaluation of left-sided chest pain which is associated with shortness of breath and worse with exertion. Patient has history of CAD status post stenting in 1999. Laboratory studies reveal normal white blood cell count, stable hemoglobin 15.2, d-dimer is elevated at 0.[address] angiography is obtained, this is negative for pulmonary embolism. There is marked CAD with calcification on CT angiography. Potassium mildly elevated 5.2 , creatinine normal troponin 0.0-1. Patient's symptoms have been ongoing for one week. He does have EKG changes including T-wave inversions in the inferior leads as well as Q waves. T-wave abnormality appears new compared to EKG in January 2017. Given the risk factors and symptoms as well as EKG changes patient will be initiated on heparin, will be admitted for serial cardiac enzymes and cardiology evaluation. Diagnosis: Unstable angina - Lab Data Result diagrams: 04/22/17 10:25 04/22/17 10:25 Lab Results 04/22/17 04/22/17 04/22/17 Range/Units 10:25 10:25 10:25 WBC (3.8-10.6) k/uL RBC (4.30-5.90) m/uL Hgb (13.0-17.5) gm/dL Hct (39.0-53.0) % MCV (80.0-100.0) fL MCH (25.0-35.0) pg MCHC (31.0-37.0) g/dL RDW (11.5-15.5) % Plt Count (150-450) k/uL Neutrophils % % Lymphocytes % % Monocytes % % Eosinophils % % Basophils % % Neutrophils # (1.3-7.7) k/uL Lymphocytes # (1.0-4.8) k/uL Monocytes # (0-1.0) k/uL Eosinophils # (0-0.7) k/uL Basophils # (0-0.2) k/uL PT 10.4 (9.0-12.0) sec INR 1.1 (<1.2) APTT 23.9 (22.0-30.0) sec D-Dimer 0.65 H (<0.60) mg/L FEU Sodium 138 (137-145) mmol/L Potassium 5.2 H (3.5-5.1) mmol/L Chloride 98 (98-107) mmol/L Carbon Dioxide 24 (22-30) mmol/L Anion Gap 16 mmol/L BUN 21 H (9-20) mg/dL Creatinine 0.90 (0.66-1.25) mg/dL Est GFR (MDRD) Af Amer >60 (>60 ml/min/1.73 sqM) Est GFR (MDRD) Non-Af >60 (>60 ml/min/1.73 sqM) Glucose 182 H (74-99) mg/dL Calcium 10.2 (8.4-10.2) mg/dL Magnesium 1.7 (1.6-2.3) mg/dL Total Bilirubin 1.0 (0.2-1.3) mg/dL AST 36 (17-59) U/L ALT 39 (21-72) U/L Alkaline Phosphatase 63 (38-126) U/L Total Creatine Kinase 77 (55-170) U/L CK-MB (CK-2) 1.2 (0.0-2.4) ng/mL CK-MB (CK-2) Rel Index 1.6 Troponin I 0.021 (0.000-0.034) ng/mL NT-Pro-B Natriuret Pep pg/mL Total Protein 7.7 (6.3-8.2) g/dL Albumin 4.7 (3.5-5.0) g/dL Lipase 220 (23-300) U/L 04/22/17 04/22/17 Range/Units 10:25 10:25 WBC 4.8 (3.8-10.6) k/uL RBC 4.82 (4.30-5.90) m/uL Hgb 15.2 (13.0-17.5) gm/dL Hct 45.4 (39.0-53.0) % MCV 94.2 (80.0-100.0) fL MCH 31.6 (25.0-35.0) pg MCHC 33.5 (31.0-37.0) g/dL RDW 12.9 (11.5-15.5) % Plt Count 228 (150-450) k/uL Neutrophils % 78 % Lymphocytes % 13 % Monocytes % 7 % Eosinophils % 1 % Basophils % 0 % Neutrophils # 3.8 (1.3-7.7) k/uL Lymphocytes # 0.6 L (1.0-4.8) k/uL Monocytes # 0.3 (0-1.0) k/uL Eosinophils # 0.0 (0-0.7) k/uL Basophils # 0.0 (0-0.2) k/uL PT (9.0-12.0) sec INR (<1.2) APTT (22.0-30.0) sec D-Dimer (<0.60) mg/L FEU Sodium (137-145) mmol/L Potassium (3.5-5.1) mmol/L Chloride (98-107) mmol/L Carbon Dioxide (22-30) mmol/L Anion Gap mmol/L BUN (9-20) mg/dL Creatinine (0.66-1.25) mg/dL Est GFR (MDRD) Af Amer (>60 ml/min/1.73 sqM) Est GFR (MDRD) Non-Af (>60 ml/min/1.73 sqM) Glucose (74-99) mg/dL Calcium (8.4-10.2) mg/dL Magnesium (1.6-2.3) mg/dL Total Bilirubin (0.2-1.3) mg/dL AST (17-59) U/L ALT (21-72) U/L Alkaline Phosphatase (38-126) U/L Total Creatine Kinase (55-170) U/L CK-MB (CK-2) (0.0-2.4) ng/mL CK-MB (CK-2) Rel Index Troponin I (0.000-0.034) ng/mL NT-Pro-B Natriuret Pep 540 pg/mL Total Protein (6.3-8.2) g/dL Albumin (3.5-5.0) g/dL Lipase (23-300) U/L Disposition Clinical Impression: Unstable angina pectoris Disposition: ADMITTED IP TO THIS [facility] Condition: Stable Referrals: German Astudillo MD [Primary Care Provider] - 1-2 days Decision to Admit Reason: Admit from EC Decision Date: 04/22/17 Decision Time: 13:15
--- NOTE | 2017-04-22 11:08 | XR ---
EXAMINATION TYPE: XR chest 2V DATE OF EXAM: 04/22/2017 COMPARISON: 01/27/2017 HISTORY: Left-sided chest pain and shortness of breath TECHNIQUE: Frontal and lateral views of the chest are obtained. FINDINGS: There are low lung volumes accentuating the pulmonary vasculature. No focal consolidation, pleural effusion or pneumothorax is seen. Multilevel moderate degenerative changes of the thoracic s pine are present. Cardiomediastinal silhouette is within normal limits. Mild degenerative changes of the acromio clavicular joints are also seen, right greater than left. IMPRESSION: Low lung volumes with no acute cardiopulmonary process, unchanged from the prior of 01/17.
[2017-04-22 11:12] LABS: Basophils % (A) 0 %; Eosinophils % (A) 1 %; HCT 45.4 % (39.0-53.0); HGB 15.2 gm/dL (13.0-17.5); Lymphocytes # (A) 0.6 k/uL (1.0-4.8); Lymphocytes % (A) 13 %; MCH 31.6 pg (25.0-35.0); MCHC 33.5 g/dL (31.0-37.0); MCV 94.2 fL (80.0-100.0); Monocytes # (A) 0.3 k/uL (0-1.0); Monocytes % (A) 7 %; Neutrophils # (A) 3.8 k/uL (1.3-7.7); Neutrophils % (A) 78 %; Platelet Count 228 k/uL (150-450); RBC 4.82 m/uL (4.30-5.90); RDW 12.9 % (11.5-15.5); WBC 4.8 k/uL (3.8-10.6)
[2017-04-22 11:26] LABS: INR 1.1 (<1.2); Partial Thromboplastin Time 23.9 sec (22.0-30.0); Prothrombin Time 10.4 sec (9.0-12.0)
[2017-04-22 11:30] LABS: Anion Gap 16 mmol/L; Calcium 10.2 mg/dL (8.4-10.2); Carbon Dioxide 24 mmol/L (22-30); Chloride 98 mmol/L (98-107); D-Dimer 0.65 mg/L FEU (<0.60); Glucose 182 mg/dL (74-99); Lipase 220 U/L (23-300); Sodium 138 mmol/L (137-145)
[2017-04-22 11:31] LABS: Albumin 4.7 g/dL (3.5-5.0); Blood Urea Nitrogen 21 mg/dL (9-20); Magnesium 1.7 mg/dL (1.6-2.3); Potassium 5.2 mmol/L (3.5-5.1); Total Protein 7.7 g/dL (6.3-8.2)
[2017-04-22 11:32] LABS: ALT 39 U/L (21-72); AST 36 U/L (17-59); Alkaline Phosphatase 63 U/L (38-126)
[2017-04-22 11:45] LABS: Creatine Kinase MB 1.2 ng/mL (0.0-2.4); Troponin I 0.021 ng/mL (0.000-0.034)
[2017-04-22] MEDS ORDERED: RX INFO: IV CONTRAST WAS GIVEN 1 EACH MISC MISCELLANE PRN (11:54)
--- NOTE | 2017-04-22 13:03 | CT ---
EXAMINATION TYPE: CT angio chest DATE OF EXAM: 04/22/2017 COMPARISON: 11/27/2016. HISTORY: Patient complains of chest tightness and difficulty breathing. CT DLP: 499 mGycm. Automated Exposure Control for Dose Reduction was Utilized. CONTRAST: CTA scan of the thorax is performed with IV Contrast, patient injected with 100 mL of Omnipaque 350, pulmonary embolism protocol. MIP Images are created on CT scanner and reviewed. FINDINGS: LUNGS: The lungs are grossly clear with only minimal bibasilar subsegmental atelectasis. There is no concerning parenchymal mass or nodule identified. There is no pleural effusion or pneumothorax seen . The tracheobronchial tree is patent. MEDIASTINUM: There is satisfactory enhancement of the pulmonary artery and its branches, there is no CT evidence for pulmonary embolism. There are no greater than 1 cm hilar or mediastinal lymph nodes. No cardiomegaly or pericardial effusion is seen. Moderate three-vessel coronary artery calcificati ons are noted, marker for coronary artery disease. OTHER: Again there is a rounded peripherally calcified area in the gallbladder fossa that could repre sent a cystic duct remnant of the gallbladder is surgically absent or could represent a contracted ga llbladder. This finding is similar to the exam of 11/27/2016. Multilevel moderate degenerative changes of the thoracic spine are noted. IMPRESSION: 1. No evidence of pulmonary neoplasm. 2. No focal consolidation, pleural effusion or pneumothorax. 3. Moderate coronary artery calcifications, marker for coronary artery disease.
[2017-04-22] MEDS ORDERED: HEPARIN SODIUM,PORCINE 5,000 UNIT/ML 1 ML VIAL IV PRN (13:06)
[2017-04-22] MEDS ORDERED: HEPARIN SODIUM,PORCINE 5,000 UNIT/ML 1 ML VIAL IV ONE (13:06)
[2017-04-22] MEDS ORDERED: ASPIRIN 325 MG TAB PO STA (13:16)
[2017-04-22] MEDS ORDERED: ONDANSETRON 4 MG/2 ML VIAL IVP PRN (13:20)
[2017-04-22] MEDS ORDERED: NALOXONE 0.4 MG/ML 1 ML VIAL IV PRN (13:20)
[2017-04-22] MEDS ORDERED: HYDROmorphone 1 MG/ML 1 ML SYRINGE IVP STA (13:24)
[2017-04-22 13:41] LABS: Basophils % (A) 0 %; Eosinophils % (A) 0 %; HCT 43.4 % (39.0-53.0); HGB 14.2 gm/dL (13.0-17.5); Lymphocytes # (A) 0.6 k/uL (1.0-4.8); Lymphocytes % (A) 14 %; MCH 31.4 pg (25.0-35.0); MCHC 32.6 g/dL (31.0-37.0); MCV 96.3 fL (80.0-100.0); Mean Platelet Volume 7.6; Monocytes # (A) 0.4 k/uL (0-1.0); Monocytes % (A) 8 %; Neutrophils # (A) 3.2 k/uL (1.3-7.7); Neutrophils % (A) 75 %; Platelet Count 214 k/uL (150-450); RBC 4.51 m/uL (4.30-5.90); RDW 14.3 % (11.5-15.5); WBC 4.2 k/uL (3.8-10.6)
[2017-04-22 13:47] LABS: INR 1.1 (<1.2); Partial Thromboplastin Time 24.6 sec (22.0-30.0); Prothrombin Time 10.6 sec (9.0-12.0)
[2017-04-22] MEDS: SODIUM CHLORIDE 0.9% 1,000 ML IV SCH (14:03)
[2017-04-22] MEDS: HEPARIN SOD,PORK IN 0.45% NACL 25,000 UNIT in 0.45% NACL 1 500ML.BAG IV SCH (14:15)
[2017-04-22] MEDS: HYDROmorphone 1 MG/ML 1 ML SYRINGE IVP PRN (18:22)
--- NOTE | 2017-04-22 19:35 | P.HPIM ---
History of Present Illness H&P Date: 04/22/17 Chief Complaint: chest pain This is a 71-year-old male patient of Dr. Astudillo with past medical history of coronary artery disease status post cardiac stent, diabetes mellitus type 2, hyperlipidemia, hypertension, osteoarthritis, prostate cancer status post biopsy on chemo/ radiation completed in March, chronic pain in the cervical spine and lumbar spine status post multiple procedures who was last admitted in 12/18 for depression. Patient lost his oldest daughter 4 years ago with history of muscular dystrophy and from pneumonia and he has not gotten over her . 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 He was last seen in January for atrial fibrillation was started on xarelto Patient went for his regular visit to the cancer Center where he complained of left anterior chest pressure for the past 1 week associated with shortness of breath. He described it comes when he is in the grocery store or while he stressed stays for a few minutes and goes away by itself. Vitals in the ED were stable. First set of troponin was negative. GC, BMP was unremarkable. Number was elevated, CTA was negative for any clots stop slight T-wave inversions are seen in leads 3 which is new patient initiated on heparin drip and is admitted for cardiology evaluation. Review of Systems Constitutional: Denies chills, Denies fever, Denies lethargy, Denies malaise, Denies poor appetite, Denies weakness, Denies weight loss Eyes: denies decreased vision, denies diplopia, denies discharge, denies pain Ears: deny: decreased hearing Ears, nose, mouth and throat: Denies dental pain, Denies headache, Denies nasal discharge, Denies nose pain Cardiovascular: chest pain, Denies decreased exercise tolerance, Denies edema, Denies high blood pressure, Denies irregular heart beat, Denies palpitations, Denies paroxysmal nocturnal dyspnea, Denies rapid heart beat, Denies shortness of breath Respiratory: Denies congestion, Denies cough, Denies cough with sputum, Denies dyspnea, Denies home oxygen, Denies wheezing Gastrointestinal: Denies abdominal pain, Denies change in bowel habits, Denies coffee ground emesis, Denies early satiety, Denies excessive gas, Denies heartburn, Denies hematemesis, Denies hematochezia, Denies loss of appetite, Denies nausea, Denies vomiting Genitourinary: Denies dysuria, Denies flank pain, Denies kidney stones, Denies menorrhagia, Denies urgency, Denies urinary frequency Musculoskeletal: gait dysfunction, Denies limitation of motion, Denies morning stiffness, Denies muscle cramps , positive for back pain Integumentary: Denies rash, Denies wounds, Denies brittle nails, Denies change in hair/nails, Denies darkening of skin Neurological: Denies balance difficulties, Denies change in speech, Denies double vision, Denies gait dysfunction, Denies loss of vision, Denies motor disturbance, Denies numbness, Denies paralysis, Denies paresthesias, Denies seizures Psychiatric: Denies anxiety, Denies depression Endocrine: Denies excessive sweating, Denies excessive thirst, Denies high blood sugars, Denies palpitations Hematologic/Lymphatic: Denies easy bruising, Denies lymphadenopathy Past Medical History Past Medical History: Coronary Artery Disease (CAD), Cancer, Diabetes Mellitus, GERD/Reflux, Hyperlipidemia, Hypertension, Osteoarthritis (OA), Prostate Disorder Additional Past Medical History / Comment(s): 5 Herniated discs in neck causing headaches & numbness in arm and right lower back pain and right leg pain. Hx 4 fx ribs, current Prostate Cancer- last radiation tx mar 25-2016 had total of 44 tx.occ constipation History of Any Multi-Drug Resistant Organisms: None Reported Past Surgical History: Heart Catheterization With Stent, Orthopedic Surgery, Prostate Surgery Additional Past Surgical History / Comment(s): PROSTATE BX., LT. KNEE ARTHROSCOPY X 2, CERVICAL FUSIONS, COLONOSCOPY/polypectomy-benign, ÁNGEL. CATARTACTS.Pain Procedures ( sees Dr. Langley for pain management), rt radio frequency procedures. Past Anesthesia/Blood Transfusion Reactions: No Reported Reaction Additional Past Anesthesia/Blood Transfusion Reaction / Comment(s): does'nt like enclosed tight spaces Date of Last Stent Placement:: 1999 Smoking Status: Former smoker - Past Family History Father Additional Family Medical History / Comment(s): Father at age 49 from coronary artery disease. Brother(s) Additional Family Medical History / Comment(s): Patient has one brother with history of smoking and no other major medical problems. Patient does not have any sisters. Daughter(s) Additional Family Medical History / Comment(s): Patient has one daughter with history of muscular dystrophy and of pneumonia. He has 1 adult daughter with no major medical problems. Patient has one son with no major medical problems. Mother Family Medical History: Cancer Additional Family Medical History / Comment(s): Mother at age 81 from uterine cancer with metastatic disease. Medications and Allergies Home Medications Medication Instructions Recorded Confirmed Type Atorvastatin Calcium [Lipitor] 40 mg PO QAM 11/01/14 04/22/17 History Bisoprolol Fumarate [Zebeta] 10 mg PO DAILY 11/26/15 04/22/17 History Bicalutamide [Casodex] 50 mg PO DAILY 12/07/16 04/22/17 History Rivaroxaban [Xarelto] 20 mg PO HS 01/27/17 04/22/17 History Losartan [Cozaar] 50 mg PO HS 03/21/17 04/22/17 History Tamsulosin HCl [Flomax] 0.4 mg PO DAILY 03/21/17 04/22/17 History Allergies Allergy/AdvReac Type Severity Reaction Status Date / Time No Known Allergies Allergy Verified 04/22/17 10:36 Physical Exam Vitals: Vital Signs Temp Pulse Pulse Resp BP BP Pulse Ox 04/22/17 18:05 98.2 F 89 16 124/81 98 04/22/17 17:18 98.1 F 85 18 114/75 95 04/22/17 16:00 88 18 117/75 98 04/22/17 15:00 88 18 101/61 98 04/22/17 14:00 78 18 118/84 98 04/22/17 13:14 66 18 131/86 100 04/22/17 12:14 97.4 F L 85 124/88 100 04/22/17 10:11 97.2 F L 80 17 140/81 99 Intake and Output 04/22/17 04/22/17 04/22/17 06:59 14:59 22:59 Intake Total 360 Balance 360 Intake: Oral 360 Other: # Voids 0 Weight 102.058 kg Patient Weight 04/23/17 06:59 Weight 102.058 kg - Constitutional General appearance: cooperative, no acute distress, obese - EENT Eyes: anicteric sclerae, PERRLA, normal appearance ENT: hearing grossly normal - Neck Neck: no lymphadenopathy, normal ROM, no other, no rigidity, no stridor, no thyromegaly - Respiratory Respiratory: bilateral: CTA, negative: diminished, dullness, rales, rhonchi - Cardiovascular Rhythm: Irregularly regular Heart sounds: normal: S1, S2 Abnormal Heart Sounds: no systolic murmur, no diastolic murmur, no rub, no S3 Gallop, no S4 Gallop, no click, no other - Gastrointestinal General gastrointestinal: normal bowel sounds, soft - Integumentary Integumentary: no rash - Neurologic Neurologic: CNII-XII intact - Musculoskeletal Musculoskeletal: gait normal, strength equal bilaterally - Psychiatric Psychiatric: A&O x's 3, appropriate affect Results CBC & Chem 7: 04/23/17 03:31 04/23/17 03:31 Labs: Abnormal Lab Results - Last 24 Hours (Table) 04/22/17 04/22/17 04/22/17 Range/Units 10:25 10:25 10:25 Lymphocytes # 0.6 L (1.0-4.8) k/uL D-Dimer 0.65 H (<0.60) mg/L FEU Potassium 5.2 H (3.5-5.1) mmol/L BUN 21 H (9-20) mg/dL Glucose 182 H (74-99) mg/dL 04/22/17 Range/Units 13:17 Lymphocytes # 0.6 L (1.0-4.8) k/uL D-Dimer (<0.60) mg/L FEU Potassium (3.5-5.1) mmol/L BUN (9-20) mg/dL Glucose (74-99) mg/dL Thrombosis Risk Factor Assmnt - DVT/VTE Prophylaxis DVT/VTE Prophylaxis: Mechanical Prophylaxis ordered Assessment and Plan Plan: 1. Chest pain typical with history of coronary artery disease status post stenting in 1999. Patient has significant risk factors to have coronary artery disease. EKG with no significant ST changes but some T-wave inversions in postop troponin 1 negative. Repeat troponin. Continue heparin drip. Continue bisoprolol, Lipitor 2. Paroxysmal Atrial fibrillation with RVR-Gordon Vasc 3. Continue losartan daily and Patel 10 mg for rate control. Currently in sinus rhythm. Xarelto for anticoagulation, hold onheparin . Echo within normal limits, normal valvular or wall abnormality seen. 3. Diabetes mellitus type 2. Hold Janumet 50- 1000 milligrams 1 daily. ISS 4. Hyperlipidemia. Continue Lipitor. 5. Hypertension. Continue losartan 50 daily and Patel 10 mg daily. 6. Prostate cancer, completed radiation. Continue Casodex 50 mg daily 7. Shoulder pain secondary to chronic rotator cuff disease. 9. DVT prophylaxis- on heparin drip 10. Patient need 1-2 inpatient nights for cardiac evaluation and possible intervention
[2017-04-22 20:46] LABS: Creatine Kinase MB 0.8 ng/mL (0.0-2.4); Troponin I 0.016 ng/mL (0.000-0.034)
[2017-04-22] MEDS: LOSARTAN 50 MG TAB PO SCH (23:23)
[2017-04-22 23:35] LABS: Creatine Kinase MB 0.9 ng/mL (0.0-2.4); Troponin I 0.016 ng/mL (0.000-0.034)
[2017-04-23] MEDS: HYDROmorphone 1 MG/ML 1 ML SYRINGE IVP PRN ×2 (00:08→05:06)
[2017-04-23 03:57] LABS: Basophils % (A) 0 %; Eosinophils % (A) 0 %; HCT 41.8 % (39.0-53.0); HGB 13.4 gm/dL (13.0-17.5); Lymphocytes # (A) 0.8 k/uL (1.0-4.8); Lymphocytes % (A) 21 %; MCH 30.7 pg (25.0-35.0); MCHC 32.1 g/dL (31.0-37.0); MCV 95.5 fL (80.0-100.0); Mean Platelet Volume 7.4; Monocytes # (A) 0.3 k/uL (0-1.0); Monocytes % (A) 8 %; Neutrophils # (A) 2.5 k/uL (1.3-7.7); Neutrophils % (A) 68 %; Platelet Count 193 k/uL (150-450); RBC 4.38 m/uL (4.30-5.90); RDW 14.5 % (11.5-15.5); WBC 3.6 k/uL (3.8-10.6)
[2017-04-23 04:19] LABS: ALT 45 U/L (21-72); AST 25 U/L (17-59); Albumin 3.6 g/dL (3.5-5.0); Alkaline Phosphatase 56 U/L (38-126); Anion Gap 10 mmol/L; Blood Urea Nitrogen 27 mg/dL (9-20); Calcium 9.5 mg/dL (8.4-10.2); Carbon Dioxide 28 mmol/L (22-30); Chloride 99 mmol/L (98-107); Glucose 123 mg/dL (74-99); Magnesium 1.7 mg/dL (1.6-2.3); Sodium 137 mmol/L (137-145); Total Bilirubin 0.7 mg/dL (0.2-1.3)
[2017-04-23 04:23] LABS: Potassium 4.4 mmol/L (3.5-5.1)
[2017-04-23] MEDS ORDERED: HYDROmorphone 2 MG/ML 1 ML SYRINGE IVP PRN (09:05)
--- NOTE | 2017-04-23 09:08 | P.CRDCN ---
History of Present Illness Consult date: 04/23/17 Requesting physician: Cari Harper Consult reason: chest pain Chief complaint: Chest pain History of present illness: This is a pleasant 71-year-old gentleman who follows with Dr. Valencia in the office. He has a known history of coronary artery disease, underwent stenting of the right coronary artery in 2000, history of paroxysmal atrial fibrillation, on xarelto for anticoagulation, history of hypertension, hyperlipidemia, diabetes, prostate cancer for which she underwent radiation, he states that he had his final course of radiation therapy and was at the oncology center yesterday, patient states he was experiencing tightness in his chest and was referred to go to the emergency room for further evaluation. Patient states that over the past one week he has been experiencing intermittent chest tightness, mostly with exertion. He states that since he is retired he's become quite sedentary. Chest x-ray on admission revealed low lung volumes with no acute cardiopulmonary process. CTA of the chest was performed, revealed no evidence of pulmonary neoplasm, we did call radiology to confirm there is no evidence of a PE, they stated the CTA was negative for pulmonary embolism. At pressure on admission 140/80 with a heart rate in the 80s, 99% on room air. EKG on arrival here showed a normal sinus rhythm with inferior ST-T wave changes. Blood pressure this morning 154/70 with a heart rate in the 80s. White blood cell count 3.6, hemoglobin 13.4, d-dimer 0.6. Sodium 137, potassium 4.4, BUN 27, creatinine 1.1. Troponins 0.021, 0.016, 0.016. BNP level 540. Patient is currently on IV heparin, his last dose of Xarelto was Wednesday evening area he is also on aspirin, Lipitor, bisoprolol, losartan. At the time of my examination this morning he is currently chest pain -free. Past Medical History Past Medical History: Coronary Artery Disease (CAD), Cancer, Diabetes Mellitus, GERD/Reflux, Hyperlipidemia, Hypertension, Osteoarthritis (OA), Prostate Disorder Additional Past Medical History / Comment(s): 5 Herniated discs in neck causing headaches & numbness in arm and right lower back pain and right leg pain. Hx 4 fx ribs, current Prostate Cancer- last radiation tx mar 25 had total of 44 tx.occ constipation History of Any Multi-Drug Resistant Organisms: None Reported Past Surgical History: Heart Catheterization With Stent, Orthopedic Surgery, Prostate Surgery Additional Past Surgical History / Comment(s): PROSTATE BX., LT. KNEE ARTHROSCOPY X 2, CERVICAL FUSIONS, COLONOSCOPY/polypectomy-benign, ÁNGEL. CATARTACTS.Pain Procedures ( sees Dr. Langley for pain management), rt radio frequency procedures. Past Anesthesia/Blood Transfusion Reactions: No Reported Reaction Additional Past Anesthesia/Blood Transfusion Reaction / Comment(s): does'nt like enclosed tight spaces Date of Last Stent Placement:: 1999 Smoking Status: Former smoker - Past Family History Father Additional Family Medical History / Comment(s): Father at age 49 from coronary artery disease. Brother(s) Additional Family Medical History / Comment(s): Patient has one brother with history of smoking and no other major medical problems. Patient does not have any sisters. Daughter(s) Additional Family Medical History / Comment(s): Patient has one daughter with history of muscular dystrophy and of pneumonia. He has 1 adult daughter with no major medical problems. Patient has one son with no major medical problems. Mother Family Medical History: Cancer Additional Family Medical History / Comment(s): Mother at age 81 from uterine cancer with metastatic disease. Medications and Allergies Home Medications Medication Instructions Recorded Confirmed Type Atorvastatin Calcium [Lipitor] 40 mg PO QA 11/01/14 04/22/17 History Bisoprolol Fumarate [Zebeta] 10 mg PO DAILY 11/26/15 04/22/17 History Bicalutamide [Casodex] 50 mg PO DAILY 12/07/16 04/22/17 History Rivaroxaban [Xarelto] 20 mg PO HS 01/27/17 04/22/17 History Losartan [Cozaar] 50 mg PO HS 03/21/17 04/22/17 History Tamsulosin HCl [Flomax] 0.4 mg PO DAILY 03/21/17 04/22/17 History Allergies Allergy/AdvReac Type Severity Reaction Status Date / Time No Known Allergies Allergy Verified 04/22/17 10:36 Physical Exam Vitals: Vital Signs Temp Pulse Pulse Resp BP BP Pulse Ox 04/23/17 08:04 97.7 F 82 16 154/70 97 04/23/17 04:00 96.7 F L 70 16 119/69 98 04/23/17 00:00 97.1 F L 83 16 103/64 95 04/22/17 20:00 97.4 F L 63 16 97/55 96 04/22/17 18:05 98.2 F 89 16 124/81 98 04/22/17 17:18 98.1 F 85 18 114/75 95 04/22/17 16:00 88 18 117/75 98 04/22/17 15:00 88 18 101/61 98 04/22/17 14:00 78 18 118/84 98 04/22/17 13:14 66 18 131/86 100 04/22/17 12:14 97.4 F L 85 124/88 100 04/22/17 10:11 97.2 F L 80 17 140/81 99 Intake and Output 04/22/17 04/23/17 04/23/17 22:59 06:59 14:59 Intake Total 498.667 320 Output Total 400 Balance 498.667 -80 Intake: IV 320 Heparin Sod,Pork in 0.45% 160 NaCl 25,000 unit In 0.45 % NaCl 1 500ml.bag @ 20 mls/hr IV .Q24H [facility] Rx#: [id number] Sodium Chloride 0.9% 1, 160 000 ml @ 20 mls/hr IV . Q24H [facility] Rx#:[id number] Intake, IV Titration 138.667 Amount Heparin Sod,Pork in 0.45% 138.667 NaCl 25,000 unit In 0.45 % NaCl 1 500ml.bag @ 20 mls/hr IV .Q24H [facility] Rx#: [id number] Oral 360 Output: Urine 400 Other: Voiding Method Toilet Toilet Toilet # Voids 0 2 Weight 102.8 kg PHYSICAL EXAMINATION: HEENT: Head is atraumatic, normocephalic. Pupils equal, round. Neck is supple. There is no elevated jugular venous pressure. HEART EXAMINATION: Heart S1, S2 normal. No murmur or gallop heard. CHEST EXAMINATION: Lungs are clear to auscultation and precussion. No chest wall tenderness is noted on palpation or with deep breathing. ABDOMEN: Soft, nontender. Bowel sounds are heard. No organomegaly noted. EXTREMITIES: 2+ peripheral pulses with no evidence of peripheral edema and no calf tenderness noted. NEUROLOGIC patient is awake, alert and oriented -3. . Results 04/23/17 03:31 04/23/17 03:31 Cardiac Enzymes 04/22/17 04/22/17 04/22/17 Range/Units 10:25 10:25 19:47 AST 36 (17-59) U/L CK-MB (CK-2) 1.2 0.8 (0.0-2.4) ng/mL Troponin I 0.021 0.016 (0.000-0.034) ng/mL 04/22/17 04/23/17 Range/Units 22:17 03:31 AST 25 (17-59) U/L CK-MB (CK-2) 0.9 (0.0-2.4) ng/mL Troponin I 0.016 (0.000-0.034) ng/mL Coagulation 04/22/17 04/22/17 04/22/17 Range/Units 10:25 13:17 19:47 PT 10.4 10.6 (9.0-12.0) sec APTT 23.9 24.6 32.6 H (22.0-30.0) sec 04/23/17 Range/Units 03:31 PT (9.0-12.0) sec APTT 54.4 H (22.0-30.0) sec CBC 04/22/17 04/22/17 04/23/17 Range/Units 10:25 13:17 03:31 WBC 4.8 4.2 3.6 L (3.8-10.6) k/uL RBC 4.82 4.51 4.38 (4.30-5.90) m/uL Hgb 15.2 14.2 13.4 (13.0-17.5) gm/dL Hct 45.4 43.4 41.8 (39.0-53.0) % Plt Count 228 214 193 (150-450) k/uL Comprehensive Metabolic Panel 04/22/17 04/23/17 Range/Units 10:25 03:31 Sodium 138 137 (137-145) mmol/L Potassium 5.2 H 4.4 (3.5-5.1) mmol/L Chloride 98 99 (98-107) mmol/L Carbon Dioxide 24 28 (22-30) mmol/L BUN 21 H 27 H (9-20) mg/dL Creatinine 0.90 1.10 (0.66-1.25) mg/dL Glucose 182 H 123 H (74-99) mg/dL Calcium 10.2 9.5 (8.4-10.2) mg/dL AST 36 25 (17-59) U/L ALT 39 45 (21-72) U/L Alkaline Phosphatase 63 56 (38-126) U/L Total Protein 7.7 6.0 L (6.3-8.2) g/dL Albumin 4.7 3.6 (3.5-5.0) g/dL Current Medications Generic Name Dose Route Start Last Admin Trade Name Freq PRN Reason Stop Dose Admin Atorvastatin Calcium 40 mg 04/23/17 09:00 Lipitor PO QAM [facility] Bicalutamide 50 mg 04/23/17 09:00 Casodex PO DAILY [facility] Bisoprolol Fumarate 10 mg 04/23/17 09:00 Zebeta PO DAILY [facility] Heparin Sodium (Porcine) 0 unit 04/22/17 13:06 04/22/17 21:10 Heparin IV 4,000 unit PER PROTOCOL PRN Administration Low PTT Protocol Hydromorphone HCl 0.5 mg 04/22/17 13:20 04/23/17 05:06 Dilaudid IVP 0.5 mg Q3HR PRN Administration Moderate Pain Heparin Sodium/Sodium Chloride 500 mls @ 20 mls/hr 04/22/17 13:15 04/22/17 21 :11 25,000 unit/ Sodium Chloride IV 12.79 units/kg/hr .Q24H [facility] 26.09 mls/hr Protocol Titration Sodium Chloride 1,000 mls @ 20 mls/hr 04/22/17 13:30 04/22/17 14:03 Saline 0.9% IV 20 mls/hr .Q24H [facility] Administration Losartan Potassium 50 mg 04/22/17 21:00 04/22/17 23:23 Cozaar PO Not Given HS [facility] Miscellaneous Information 1 each 04/22/17 11:54 Rx Info: Iv Contrast Was Given MISCELLANE 04/24/17 11:54 DAILY PRN Per Protocol Naloxone HCl 0.2 mg 04/22/17 13:20 Narcan IV Q2M PRN Opioid Reversal Ondansetron HCl 4 mg 04/22/17 13:20 Zofran IVP Q8HR PRN Nausea And Vomiting Tamsulosin HCl 0.4 mg 04/23/17 09:00 Flomax PO DAILY [facility] Intake and Output 04/22/17 04/23/17 04/23/17 22:59 06:59 14:59 Intake Total 498.667 320 Output Total 400 Balance 498.667 -80 Intake: IV 320 Heparin Sod,Pork in 0.45% 160 NaCl 25,000 unit In 0.45 % NaCl 1 500ml.bag @ 20 mls/hr IV .Q24H [facility] Rx#: [id number] Sodium Chloride 0.9% 1, 160 000 ml @ 20 mls/hr IV . Q24H [facility] Rx#:[id number] Intake, IV Titration 138.667 Amount Heparin Sod,Pork in 0.45% 138.667 NaCl 25,000 unit In 0.45 % NaCl 1 500ml.bag @ 20 mls/hr IV .Q24H [facility] Rx#: [id number] Oral 360 Output: Urine 400 Other: Voiding Method Toilet Toilet Toilet # Voids 0 2 Weight 102.8 kg 04/23/17 03:31 04/23/17 03:31 EKG Interpretations (text) EKG shows normal sinus rhythm with inferior ST-T wave changes Assessment and Plan Plan: Assessment and plan #1 Symptoms of exertional chest tightness, suggestive of acute coronary syndrome. EKG shows normal sinus rhythm with inferior ST-T wave changes area troponin's 0.021,.016,.016. #2 known history of coronary artery disease with prior stenting of the mid right coronary artery in 2000. #3 diabetes #4 hypertension #5 hyperlipidemia #6 paroxysmal atrial fibrillation, on Xarelto for anticoagulation #7 prostate cancer status post radiation Plan Patient did have an echocardiogram with Doppler study performed in January which revealed normal left ventricular systolic function. We will repeat an echocardiogram with Doppler study this admission. Continue current medications including heparin, Xarelto is currently on hold. Patient has been advised to undergo cardiac catheterization for more definitive diagnosis. The risks and the benefits were explained to the patient in detail and he is willing to proceed. Further recommendations will be based on these findings and patient's clinical course. DNP note has been reviewed, I agree with a documented findings and plan of care. Patient was seen and examined.
[2017-04-23] MEDS ORDERED: SODIUM CHLORIDE 0.9% 1,000 ML in EMPTY BAG 1 BAG IV ONE (09:23)
[2017-04-23] MEDS ORDERED: ALPRAZolam 0.25 MG TAB PO PRN (09:23)
[2017-04-23] MEDS ORDERED: ATORVASTATIN 80 MG TAB PO STA (09:23)
[2017-04-23] MEDS ORDERED: ALPRAZolam 0.5 MG TAB PO PRN (09:23)
[2017-04-23] MEDS ORDERED: NITROGLYCERIN SL TABS 0.4 MG TAB SUBLINGUAL PRN ×2 (09:23→14:17)
[2017-04-23] MEDS ORDERED: ASPIRIN 325 MG TAB PO STA (09:23)
[2017-04-23] MEDS: ATORVASTATIN 40 MG TAB PO SCH (09:34)
[2017-04-23] MEDS: BICALUTAMIDE 50 MG TAB PO SCH (09:47)
[2017-04-23] MEDS: BISOPROLOL 5 MG TAB PO SCH (09:47)
[2017-04-23] MEDS: TAMSULOSIN 0.4 MG CAP.ER.24H PO SCH (09:47)
[2017-04-23 11:55] VITALS: BMI 29.9
[2017-04-23] MEDS ORDERED: IV FLUID CONTINUATION 1,000 ML IV ONE (11:56)
[2017-04-23] MEDS ORDERED: diphenhydrAMINE 50 MG/ML 1 ML VIAL IVP ONE (11:59)
[2017-04-23] MEDS ORDERED: fentaNYL (PF) 50 MCG/ML 2 ML AMP IV ONE (12:00)
[2017-04-23] MEDS ORDERED: LIDOCAINE 2% (PF) 20 MG/ML 2 ML AMP SQ ONE (12:11)
[2017-04-23] MEDS ORDERED: VERAPAMIL SYRINGE (5 MG/10 ML) INTRAARTER ONE ×2 (12:15→12:29)
[2017-04-23] MEDS ORDERED: MIDAZOLAM 2 MG/2 ML VIAL IV ONE (12:16)
--- NOTE | 2017-04-23 12:19 | ECHOF ---
Referral Reason:assess lvf MEASUREMENTS -------- HEIGHT: 185.4 cm WEIGHT: 102.5 kg BP: 154/70 RVIDd: 3.3 cm (< 3.3) IVSd: 1.4 cm (0.6 - 1.1) LVIDd: 4.3 cm (3.9 - 5.3) LVPWd: 1.4 cm (0.6 - 1.1) IVSs: 1.9 cm LVIDs: 3.0 cm LVPWs: 1.9 cm LA Diam: 3.9 cm (2.7 - 3.8) LAESV Index (A-L): 25.07 ml/m Ao Diam: 3.5 cm (2.0 - 3.7) AV Cusp: 2.3 cm (1.5 - 2.6) MV EXCURSION: 13.536 mm (> 18.000) MV EF SLOPE: 28 mm/s (70 - 150) EPSS: 0.9 cm MV E Tobias: 0.56 m/s MV DecT: 236 ms MV A Tobias: 0.93 m/s MV E/A Ratio: 0.61 RAP: 5.00 mmHg RVSP: 23.72 mmHg FINDINGS -------- Sinus rhythm. This was a technically good study. The left ventricular size is normal. There is mild concentric left ventricular hypertrophy. Overa ll left ventricular systolic function is normal with, an EF between 60 - 65 %. The right ventricle is mildly enlarged. Normal LA size by volume 22+/-6 ml/m2. The right atrium is normal in size. The aortic valve is trileaflet and appears structurally normal. There is trace mitral regurgitation. Mild tricuspid regurgitation present. Right ventricular systolic pressure is normal at < 35 mmHg. The pulmonic valve was not well visualized. The aortic root size is normal. IVC Not well visulized. There is no pericardial effusion. CONCLUSIONS -------- 1. Sinus rhythm. 2. This was a technically good study. 3. The left ventricular size is normal. 4. There is mild concentric left ventricular hypertrophy. 5. Overall left ventricular systolic function is normal with, an EF between 60 - 65 %. 6. The right ventricle is mildly enlarged. 7. Normal LA size by volume 22+/-6 ml/m2. 8. The right atrium is normal in size. 9. The aortic valve is trileaflet and appears structurally normal. 10. There is trace mitral regurgitation. 11. Mild tricuspid regurgitation present. 12. Right ventricular systolic pressure is normal at < 35 mmHg. 13. The pulmonic valve was not well visualized. 14. The aortic root size is normal. 15. IVC Not well visulized. 16. There is no pericardial effusion. CONSTRUCTION PROJECT ENGINEER: Nishi Olsen RDCS
[2017-04-23] MEDS: HYDROmorphone 2 MG/ML 1 ML SYRINGE IV ONE ×3 (12:20→13:22)
[2017-04-23] MEDS ORDERED: BIVALIRUDIN BOLUS 250 MG/50 ML IV ONE (12:30)
[2017-04-23] MEDS ORDERED: CLOPIDOGREL 75 MG TAB PO ONE (12:33)
[2017-04-23] MEDS ORDERED: BIVALIRUDIN 250 MG in SODIUM CHLORIDE 0.9% 50 ML IV ONE ×2 (12:33→13:17)
[2017-04-23] MEDS ORDERED: NITROGLYCERIN 1000MCG/10ML SYRINGE INTRACORON ONE (12:37)
[2017-04-23] MEDS ORDERED: SODIUM CHLORIDE 0.9% 1,000 ML IV ONE (13:18)
[2017-04-23] MEDS ORDERED: IOHEXOL 350 MG/ML 125ML BOTTLE INJ ONE (14:11)
[2017-04-23] MEDS ORDERED: RX INFO: IV CONTRAST WAS GIVEN 1 EACH MISC MISCELLANE PRN (14:17)
[2017-04-23] MEDS ORDERED: MAG HYDROX/AL HYDROX/SIMETH 30 ML CUP PO PRN (14:17)
[2017-04-23] MEDS ORDERED: ZOLPIDEM 5 MG TAB PO PRN (14:17)
[2017-04-23] MEDS ORDERED: ATROPINE SULFATE 0.1 MG/ML 10ML SYRINGE IV PRN (14:17)
[2017-04-23] MEDS ORDERED: SODIUM CHLORIDE 0.9% 1,000 ML IV SCH (14:30)
--- NOTE | 2017-04-23 15:47 | P.PN ---
Subjective Progress Note Date: 04/23/17 This is a 71-year-old male patient of Dr. Astudillo with past medical history of coronary artery disease status post cardiac stent, diabetes mellitus type 2, hyperlipidemia, hypertension, osteoarthritis, prostate cancer status post biopsy on chemo/ radiation completed in March, chronic pain in the cervical spine and lumbar spine status post multiple procedures who was last admitted in 12/18 for depression. Patient lost his oldest daughter 4 years ago with history of muscular dystrophy and from pneumonia and he has not gotten over her . 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 He was last seen in January for atrial fibrillation was started on xarelto Patient went for his regular visit to the cancer Center where he complained of left anterior chest pressure for the past 1 week associated with shortness of breath. He described it comes when he is in the grocery store or while he stressed stays for a few minutes and goes away by itself. Vitals in the ED were stable. First set of troponin was negative. GC, BMP was unremarkable. Number was elevated, CTA was negative for any clots stop slight T-wave inversions are seen in leads 3 which is new patient initiated on heparin drip and is admitted for cardiology evaluation. 04/23: Repeat troponins were 0.0162. Cardiology is planning on heart catheterization today. Echocardiogram reveals EF of 60-65%, trace mitral regurgitation, mild tricuspid regurgitation. Objective - Vital Signs Vital signs: Vital Signs Temp 97.7 F 04/23/17 08:04 Pulse 82 04/23/17 08:04 Resp 16 04/23/17 08:04 BP 154/70 04/23/17 08:04 Pulse Ox 97 04/23/17 08:04 Intake & Output 04/22/17 04/23/17 04/23/17 18:59 06:59 18:59 Intake Total 818.667 Output Total 400 Balance 418.667 Weight 102.058 kg 102.8 kg Intake: IV 320 Heparin Sod,Pork in 0.45% 160 NaCl 25,000 unit In 0.45 % NaCl 1 500ml.bag @ 20 mls/hr IV .Q24H [facility]URA Rx#: [id number] Sodium Chloride 0.9% 1, 160 000 ml @ 20 mls/hr IV . Q24H [facility] Rx#:[id number] Intake, IV Titration 138.667 Amount Heparin Sod,Pork in 0.45% 138.667 NaCl 25,000 unit In 0.45 % NaCl 1 500ml.bag @ 20 mls/hr IV .Q24H [facility] Rx#: [id number] Oral 360 Output: Urine 400 Other: Voiding Method Toilet Toilet # Voids 0 2 - Exam General appearance: cooperative, no acute distress, obese - EENT Eyes: anicteric sclerae, PERRLA, normal appearance ENT: hearing grossly normal - Neck Neck: no lymphadenopathy, normal ROM, no other, no rigidity, no stridor, no thyromegaly - Respiratory Respiratory: bilateral: CTA, negative: diminished, dullness, rales, rhonchi - Cardiovascular Rhythm: Irregularly regular Heart sounds: normal: S1, S2 Abnormal Heart Sounds: no systolic murmur, no diastolic murmur, no rub, no S3 Gallop, no S4 Gallop, no click, no other - Gastrointestinal General gastrointestinal: normal bowel sounds, soft - Integumentary Integumentary: no rash - Neurologic Neurologic: CNII-XII intact - Musculoskeletal Musculoskeletal: gait normal, strength equal bilaterally - Psychiatric Psychiatric: A&O x's 3, appropriate affect - Labs CBC & Chem 7: 04/23/17 03:31 04/23/17 03:31 Labs: Abnormal Lab Results - Last 24 Hours (Table) 04/22/17 04/22/17 04/22/17 Range/Units 10:25 10:25 10:25 WBC (3.8-10.6) k/uL Lymphocytes # 0.6 L (1.0-4.8) k/uL APTT (22.0-30.0) sec D-Dimer 0.65 H (<0.60) mg/L FEU Potassium 5.2 H (3.5-5.1) mmol/L BUN 21 H (9-20) mg/dL Glucose 182 H (74-99) mg/dL Total Creatine Kinase (55-170) U/L Total Protein (6.3-8.2) g/dL 04/22/17 04/22/17 04/22/17 Range/Units 13:17 19:47 19:47 WBC (3.8-10.6) k/uL Lymphocytes # 0.6 L (1.0-4.8) k/uL APTT 32.6 H (22.0-30.0) sec D-Dimer (<0.60) mg/L FEU Potassium (3.5-5.1) mmol/L BUN (9-20) mg/dL Glucose (74-99) mg/dL Total Creatine Kinase 54 L (55-170) U/L Total Protein (6.3-8.2) g/dL 04/23/17 04/23/17 04/23/17 Range/Units 03:31 03:31 03:31 WBC 3.6 L (3.8-10.6) k/uL Lymphocytes # 0.8 L (1.0-4.8) k/uL APTT 54.4 H (22.0-30.0) sec D-Dimer (<0.60) mg/L FEU Potassium (3.5-5.1) mmol/L BUN 27 H (9-20) mg/dL Glucose 123 H (74-99) mg/dL Total Creatine Kinase (55-170) U/L Total Protein 6.0 L (6.3-8.2) g/dL Assessment and Plan Plan: 1. Chest pain typical with history of coronary artery disease status post stenting in 1999. Patient has significant risk factors to have coronary artery disease. EKG with no significant ST changes but some T-wave inversions in postop troponin 1 negative. Repeat troponin. Continue heparin drip. Continue bisoprolol, Lipitor. Heart catheterization today. 2. Paroxysmal Atrial fibrillation with RVR-Gordon Vasc 3. Continue losartan daily and Patel 10 mg for rate control. Currently in sinus rhythm. Xarelto for anticoagulation, hold onheparin . Echo within normal limits, normal valvular or wall abnormality seen. 3. Diabetes mellitus type 2. Hold Janumet 50- 1000 milligrams 1 daily. ISS 4. Hyperlipidemia. Continue Lipitor. 5. Hypertension. Continue losartan 50 daily and Patel 10 mg daily. 6. Prostate cancer, completed radiation. Continue Casodex 50 mg daily 7. Shoulder pain secondary to chronic rotator cuff disease. Impression and plan of care have been directed as dictated by the signing physician. Padma Monsalve nurse practitioner acting as scribe for signing physician. 8. DVT prophylaxis- on heparin drip Impression and plan of care have been directed as dictated by the signing physician. Padma Monsalve nurse practitioner acting as scribe for signing physician.
--- NOTE | 2017-04-23 16:34 | PTCA ---
PERCUTANEOUSTRANS CORORONARY ANGIOGRAPHY Mr. Berkowitz is a 71-year-old male known history of hypertension, hyperlipidemia, diabetes mellitus, who presented with symptoms of chest discomfort and EKG changes, underwent cardiac catheterization, was found to have significant stenosis involving the mid distal and distal right coronary artery in a heavily calcified segment. In view of that, recommendation regarding angioplasty and stenting. The procedure, risks and complications were discussed with the patient who is in full understanding and agreement. PROCEDURE: A 6-Sinhala FR4 guiding catheter in the system. After cannulating the right coronary ostium, attempt to advance a 0.014 advanced medium weight J-wire were unsuccessful. The balloon was removed and a Whisper J-wire was advanced, positioned distally. Following that, a 2.5 x 12 mm Trek balloon was advanced and multiple inflations maximum at 14 atmospheres were done. Following that the balloon was removed and attempt to advance a stent into a 2.5 x 23 mm Xience Alpine stent were unsuccessful. The stent was removed and a guidewire was advanced and positioned into the vessel. The stent was advanced in the mid distal segment, deployed and post dilated at 14 atmospheres. Following that, the balloon was removed. Subsequent to that attempt to advance a 2.5 x 15 mm Xience Alpine and a 2.5 x 8 mm Xience Alpine into the distal vessel were unsuccessful. The balloons were removed and a 2.5 x 15 mm Trek balloon was advanced and inflations were done. Subsequently, a 2.75 x 12 mm Trek balloon was advanced and inflation was done distally up to 10 atmospheres. Following that, the balloon was removed and attempt to advance the stents of the 2.5 x 8 and 2.5 x 15 Xience were unsuccessful. At that point, the stents were removed and a 2.5 x 12 mm PROMUS stent was advanced but could not cross the very calcified distal segment. That stent was removed as well. The guideline was removed. Another 0.014 balanced medium weight J- wire was advanced and positioned distally in a noel fashion. Attempt again to advance the 2.5 x 12 mm Xience and a 2.5 x 8 mm Xience stent were unsuccessful. Those stents were removed and a 2.5 x 8 mm vision stent was advanced but could not cross the calcified segment. At that point, the guidewire, and the balloon were withdrawn back in the guiding catheter. Images were obtained and repeated. Those images reveal stable successful stenting. At that point, the guiding catheter, the balloon and the guidewire were removed. The sheath was removed. Hemostasis was obtained with deployment of a TR band. There was no immediate complication. Patient is returned to his room in stable condition. Of note, the patient received Angiomax per protocol as well as oral loading dose of clopidogrel. RESULTS: 1. Successful stenting of the mid distal right coronary artery with reduction of stenosis from 70% to 0%. 2. Successful angioplasty of the distal right coronary artery in a heavily calcified vessel with reduction in stenosis from 70% to less than 30%. RECOMMENDATIONS: Patient will be continued on aspirin, Plavix, beta blockers, pankaj inhibitors and statin. Those findings and recommendations were discussed with the patient who is in full understanding and agreement. DURATION OF PROCEDURE: 23 minutes. ALEXSANDRA / WILFREDO: [id number] /
--- NOTE | 2017-04-23 16:40 | LTR ---
DATE OF SERVICE: 04/23/[address] Astudillo: I had the pleasure of performing cardiac catheterization and coronary angioplasty and stenting on Mr. Berkowitz at [facility] on April 23. A fully copy of procedure note will be forwarded to you. In brief, he underwent successful stenting of his mid distal right coronary artery in a heavily calcified vessel and angioplasty of the distal segment. I am hopeful that the procedure will stabilize his status. Thank you again for allowing me to participate in his care. Please feel free to call for any questions. Sincerely, ALEXSANDRA / PRAVINN: [id number] /
--- NOTE | 2017-04-23 16:58 | CC ---
CARDIAC CATHETERIZATION REPORT Mr. Berkowitz 71-year-old male with known history of hypertension, hyperlipidemia, history of paroxysmal atrial fibrillation, and prior history of coronary artery disease, who presented with symptoms of chest discomfort and EKG changes with no enzymatic changes. In view of his symptoms, recommendation made regarding cardiac catheterization. The procedures, risks and complication were discussed with the patient who is in full understanding and agreement. PROCEDURE: Patient was brought to the skilled labor in a fasting semisedated state after receiving fentanyl and Benadryl and achieving moderate conscious sedated state. Using Xylocaine anesthesia and Seldinger technique, a 6-Citizen [place] sheath was introduced in the right radial artery. Selective right and left angiography was performed using 5-[place] 3-1/2 bend right and left Ellen catheter. Multiple views of the coronary artery including hemiaxial views obtained. Following that catheter removed. Images were reviewed. FINDINGS: 1. FLUOROSCOPY: There was severe calcification involving all the coronary arteries and predominantly the right coronary artery. 2. LEFT MAIN: This is a large-sized vessel bifurcating left circumflex and left anterior descending artery. Left main coronary artery has 10 to 20% plaquing proximally. 3. LEFT ANTERIOR DESCENDING: This is a large vessel reaching to the apex, tapers down to distal third, giving rise to 2 diagonal branches of small to moderate caliber. The left anterior descending artery is heavily calcified. The proximal LAD has 20% to 30% and there is a plaque involving the takeoff of the first diagonal branch. 4. LEFT CIRCUMFLEX: This is a nondominant vessel, large in caliber giving rise to 3 obtuse marginal branches. The first obtuse marginal branch has a 70% plaque at the takeoff. 5. RIGHT CORONARY ARTERY: This is a large dominant vessel bifurcating distally PDA posterior lateral segment and branches, heavily calcified. The mid right coronary artery is stented and patent. The distal segment has 2 area of stenosis ranging between 70 and 80%. The flow into the PDA is slow. 6. COLLATERALS: There are collaterals from the LAD toward the distal PDA. 7. LEFT VENTRICULOGRAM: Left ventriculogram is ventriculogram was not performed. CONCLUSIONS: 1. Severely calcified coronary arteries. 2. Significant stenosis involving the distal and mid right coronary artery in a heavily calcified segment. 3. Mild disease in the proximal LAD. 4. Moderate disease in the ostium of the first obtuse marginal branch and moderate disease in the ostium of the first diagonal branch. RECOMMENDATION: In view of finding anatomy, I recommend proceeding with attempted angioplasty and stenting of the right coronary artery. The procedures, risks and complication were discussed with the patient who is in full understanding and agreement. MMODL / IJN: [id number] /
[2017-04-23 17:09] LABS: Glucose,Whole Blood 152 mg/dL (75-99)
[2017-04-23] MEDS: SODIUM CHLORIDE 0.9% 1,000 ML IV SCH (17:15)
[2017-04-23] MEDS: LOSARTAN 50 MG TAB PO SCH (20:53)
[2017-04-23 21:43] LABS: Glucose,Whole Blood 170 mg/dL (75-99)
[2017-04-24 06:33] LABS: Glucose,Whole Blood 133 mg/dL (75-99)
[2017-04-24 07:29] LABS: Basophils % (A) 0 %; Eosinophils % (A) 1 %; HCT 36.7 % (39.0-53.0); HGB 12.1 gm/dL (13.0-17.5); Lymphocytes # (A) 0.4 k/uL (1.0-4.8); Lymphocytes % (A) 9 %; MCH 31.1 pg (25.0-35.0); MCHC 33.1 g/dL (31.0-37.0); MCV 94.1 fL (80.0-100.0); Mean Platelet Volume 7.4; Monocytes # (A) 0.3 k/uL (0-1.0); Monocytes % (A) 7 %; Neutrophils # (A) 4.1 k/uL (1.3-7.7); Neutrophils % (A) 82 %; Platelet Count 180 k/uL (150-450); RDW 14.1 % (11.5-15.5)
[2017-04-24 07:59] LABS: Anion Gap 9 mmol/L; Blood Urea Nitrogen 19 mg/dL (9-20); Carbon Dioxide 26 mmol/L (22-30); Chloride 99 mmol/L (98-107); Glucose 140 mg/dL (74-99); Sodium 134 mmol/L (137-145)
[2017-04-24 08:07] LABS: Potassium 4.2 mmol/L (3.5-5.1)
[2017-04-24] MEDS: BISOPROLOL 5 MG TAB PO SCH (08:29)
[2017-04-24] MEDS: HYDROcodone/APAP 10-325MG 1 EACH TAB PO PRN ×2 (08:29→16:28)
[2017-04-24] MEDS: ATORVASTATIN 40 MG TAB PO SCH (08:29)
[2017-04-24] MEDS: TAMSULOSIN 0.4 MG CAP.ER.24H PO SCH (08:30)
[2017-04-24] MEDS: CLOPIDOGREL 75 MG TAB PO SCH (08:31)
[2017-04-24] MEDS: ASPIRIN 81 MG PO SCH (08:31)
[2017-04-24] MEDS: BICALUTAMIDE 50 MG TAB PO SCH (08:31)
[2017-04-24] MEDS: HEPARIN SOD,PORK IN 0.45% NACL 25,000 UNIT in 0.45% NACL 1 500ML.BAG IV SCH (09:00)
--- NOTE | 2017-04-24 10:49 | P.PN ---
Subjective Progress Note Date: 04/24/17 Principal diagnosis: unstable angina patient is complaining of right upper extremity pain would've the catheter was inserted yesterday family at the bedside asking if patient's can be discharged home. Patient is denying chest pain, shortness breath, nausea, vomiting, abdominal pain, dizziness or lightheadedness Objective - Vital Signs Vital signs: Vital Signs Temp 97.9 F 04/24/17 08:28 Pulse 102 H 04/24/17 08:28 Resp 17 04/24/17 08:28 BP 128/65 04/24/17 08:28 Pulse Ox 93 L 04/24/17 08:28 Intake & Output 04/23/17 04/24/17 04/24/17 18:59 06:59 18:59 Intake Total 514.5 160 100 Output Total 750 Balance -235.5 160 100 Weight 102.8 kg 102.4 kg Intake: IV 514.5 160 Sodium Chloride 0.9% 1, 160 000 ml @ 20 mls/hr IV . Q24H ALURA Rx#:[id number] Oral 100 Output: Urine 750 Other: Voiding Method Toilet Toilet Toilet # Voids 3 1 - Exam physical exam. Lungs clear to auscultation bilaterally Heart normal S1-S2 Abdomen soft nontender [facility] Right upper extremity with normal feeding catheter insertion site. Skin no new rash Alert and oriented 3 - Labs CBC & Chem 7: 04/24/17 07:19 04/24/17 07:19 Labs: Abnormal Lab Results - Last 24 Hours (Table) 04/23/17 04/23/17 04/24/17 Range/Units 17:06 21:41 06:29 RBC (4.30-5.90) m/uL Hgb (13.0-17.5) gm/dL Hct (39.0-53.0) % Lymphocytes # (1.0-4.8) k/uL Sodium (137-145) mmol/L Glucose (74-99) mg/dL POC Glucose (mg/dL) 152 H 170 H 133 H (75-99) mg/dL 04/24/17 04/24/17 Range/Units 07:19 07:19 RBC 3.90 L (4.30-5.90) m/uL Hgb 12.1 L (13.0-17.5) gm/dL Hct 36.7 L (39.0-53.0) % Lymphocytes # 0.4 L (1.0-4.8) k/uL Sodium 134 L (137-145) mmol/L Glucose 140 H (74-99) mg/dL POC Glucose (mg/dL) (75-99) mg/dL Assessment and Plan Assessment: 1. Unstable angina status post cardiac catheterization with drug-eluting stent to RCA. We'll continue cardioprotective medication follow-up with cardiology recommendation regarding discharge planning pending discussed with the patient and her family at the bedside. 2. Diabetes mellitus. Continue insulin sliding scale seems to be in the fifth control. 3. Hyperlipidemia. Continue statin. 4. Paroxysmal atrial fibrillation. Continue medication per cardiology recommendation. 5.hypertension. Controlled we will continue with current regimen
[2017-04-24] MEDS ORDERED: PNEUMOCOCCAL VACC-PNEUMOVAX 23 25 MCG/0.5 ML VIAL IM ONE (11:45)
[2017-04-24] MEDS ORDERED: INFLUENZA VACCINE (6 MOS+) 60 MCG/0.5 ML SYRINGE IM ONE (11:45)
--- NOTE | 2017-04-24 12:04 | PN ---
PROGRESS NOTE Mr. Berkowitz is a 71-year-old male with a known history of heart disease, who presented with symptoms of unstable angina. He underwent cardiac catheterization, was found to have a heavily calcified right coronary artery, underwent stenting of that vessel. There was an area that was quite calcified and could not be crossed with a stent and underwent angioplasty balloon angioplasty of that vessel. He is doing well this morning. He has no chest pain. His breathing has been stable. He has no dizziness or palpitation. He has no nausea. He continues to be at this time on aspirin once a day, Plavix 75 mg daily, Lipitor 40 mg daily, Bisoprolol 10 mg daily, losartan 50 mg daily. PHYSICAL EXAMINATION: Blood pressure 128/60 with a heart rate in the 80s. LUNGS: Clear. Heart regular rate and rhythm S1, S2. No S3. No rub. ABDOMEN: Soft, nontender, obese. EXTREMITIES: No edema. Right radial pulse is intact. LAB DATA: BUN and creatinine 19 and 0.83, potassium 4.2. IMPRESSION: 1. Status post stenting of the right coronary artery in a heavily calcified segment. 2. History of hypertension. 3. Hyperlipidemia. 4. Prior history of paroxysmal atrial fibrillation, remains sinus mechanism. RECOMMENDATIONS: We will continue present therapy. Increase his level of activity. If he remains stable, I would expect he will be discharged home tomorrow and he will be evaluated at that time down the road in regard to restarting the anticoagulation. MMCARAL / PRAVINN: [id number] /
[2017-04-24 12:35] LABS: Glucose,Whole Blood 119 mg/dL (75-99)
[2017-04-24 17:02] LABS: Glucose,Whole Blood 147 mg/dL (75-99)
[2017-04-24] MEDS: LOSARTAN 50 MG TAB PO SCH (20:20)
[2017-04-24 21:46] LABS: Glucose,Whole Blood 172 mg/dL (75-99)
[2017-04-25 06:09] LABS: Glucose,Whole Blood 154 mg/dL (75-99)
[2017-04-25 07:08] LABS: Basophils % (A) 0 %; Eosinophils % (A) 0 %; HCT 35.6 % (39.0-53.0); HGB 11.7 gm/dL (13.0-17.5); Lymphocytes # (A) 0.5 k/uL (1.0-4.8); Lymphocytes % (A) 11 %; MCH 30.5 pg (25.0-35.0); MCHC 32.8 g/dL (31.0-37.0); MCV 92.9 fL (80.0-100.0); Mean Platelet Volume 7.2; Monocytes # (A) 0.3 k/uL (0-1.0); Monocytes % (A) 7 %; Neutrophils # (A) 3.4 k/uL (1.3-7.7); Neutrophils % (A) 80 %; Platelet Count 169 k/uL (150-450); RBC 3.84 m/uL (4.30-5.90); RDW 13.7 % (11.5-15.5); WBC 4.3 k/uL (3.8-10.6)
[2017-04-25] MEDS: TAMSULOSIN 0.4 MG CAP.ER.24H PO SCH (08:23)
[2017-04-25] MEDS: BISOPROLOL 5 MG TAB PO SCH (08:24)
[2017-04-25] MEDS: CLOPIDOGREL 75 MG TAB PO SCH (08:24)
[2017-04-25] MEDS: ATORVASTATIN 40 MG TAB PO SCH (08:24)
[2017-04-25] MEDS: BICALUTAMIDE 50 MG TAB PO SCH (08:24)
[2017-04-25] MEDS: ASPIRIN 81 MG PO SCH (08:24)
--- NOTE | 2017-04-25 11:00 | PN ---
PROGRESS NOTE Mr. Berkowitz is a 71-year-old male who presented with symptoms of angina pectoris. He underwent cardiac catheterization and stenting of his right coronary artery. He is feeling well this morning. His only complaint is his back pain. He denies any chest pain. His breathing is stable. No dizziness or palpitation. He continued on aspirin once a day, Plavix 75 mg daily, Lipitor 40 mg daily, bisoprolol 10 mg daily, losartan 50 mg daily and Flomax 0.4 mg daily. PHYSICAL EXAMINATION: Blood pressure 128/60 with a heart in 80s. LUNGS: Clear. HEART: Regular rate and rhythm. S1, S2. No S3. No rub. ABDOMEN: Soft, nontender. EXTREMITIES: No edema. IMPRESSION: 1. Status post stenting of the right coronary artery. 2. Hypertension. 3. Hyperlipidemia. 4. Prior episode of paroxysmal fibrillation remain in sinus mechanism. RECOMMENDATION: From the cardiac standpoint, he should be able to be discharged home today and follow as an outpatient. MMODL / IJN: [id number] /
[2017-04-25 11:38] VITALS: BP 147/73; PULSE 83; RESP 18; TEMP 97.6
[2017-04-25 11:49] LABS: Glucose,Whole Blood 157 mg/dL (75-99)
--- NOTE | 2017-04-25 14:58 | P.DS ---
Providers Date of admission: 04/22/17 13:20 Attending physician: Cari Harper MD Consults: 04/22/17 13:21 Consult Physician Urgent Consulting Provider: Krishna Vora Consult Reason/Comments: Unstable angina Do you want consulting provider notified?: Yes 04/23/17 14:17 Consult Physician Routine Consulting Provider: [facility] Consult Reason/Comments: Post Interventional patient Do you want consulting provider notified?: Already Contacted Primary care physician: German Astudillo Hospital Course: This is 71 years old male with past medical history significant for diabetes presents to the hospital with chest pain. Patient was diagnosed with unstable angina was taken to the [facility] and drug-eluting stent was inserted to his RCA. Patient was seen by cardiology after procedure who recommended continuation of aspirin and statin and Plavix and discontinue Xarelto for the time being until seen in the office to determine about the need for Xarelto patient plan was discussed with Dr. luis eduardo kramer recommended the above changes patient counseled regarding adherence to medication and need to take Plavix daily for the next 365 days without interruption patient understands treatment plan and was discharged in stable condition Patient Condition at Discharge: Stable Plan - Discharge Summary Discharge Rx Participant: No New Discharge Prescriptions: No Action Atorvastatin Calcium [Lipitor] 40 mg PO QAM Bisoprolol Fumarate [Zebeta] 10 mg PO DAILY Bicalutamide [Casodex] 50 mg PO DAILY Tamsulosin HCl [Flomax] 0.4 mg PO DAILY Losartan [Cozaar] 50 mg PO HS Clopidogrel [Plavix] 1 tab PO DAILY Aspirin 1 tab PO DAILY Discharge Medication List Atorvastatin Calcium [Lipitor] 40 mg PO QAM 11/01/14 [History] Bisoprolol Fumarate [Zebeta] 10 mg PO DAILY 11/26/15 [History] Bicalutamide [Casodex] 50 mg PO DAILY 12/07/16 [History] Losartan [Cozaar] 50 mg PO HS 03/21/17 [History] Tamsulosin HCl [Flomax] 0.4 mg PO DAILY 03/21/17 [History] Aspirin 1 tab PO DAILY 04/25/17 [History] Clopidogrel [Plavix] 1 tab PO DAILY 04/25/17 [History] Follow up Appointment(s)/Referral(s): Ambrosio Valencia MD [STAFF PHYSICIAN] - 04/30/17 4:00 pm German Astudillo MD [Primary Care Provider] - 1-2 days (Office closed, patient to make own appointment. ) Patient Instructions/Handouts: *Surgery [facility] - After Heart Catheterization - [employer] Education Teacher Instructions, Chest Pain (DC), Left Heart Catheterization (DC)
== END 2017-04-25 15:48 | disposition home or self-care (01) | DRG 247 ==
LOC: EC 10:08 → 6SEL 13:20
PROVIDERS: ADMIT Internal Medicine; ATTEND Internal Medicine
PROC: B2111ZZ Fluoroscopy of Multiple Coronary Arteries using Low Osmolar Contrast (ICD-10-PCS; 2017-04-23)
PROC: 4A023N7 Measurement of Cardiac Sampling and Pressure, Left Heart, Percutaneous Approach (ICD-10-PCS; principal; 2017-04-23 11:40)
PROC: 027034Z Dilation of Coronary Artery, One Artery with Drug-eluting Intraluminal Device, Percutaneous Approach (ICD-10-PCS; 2017-04-23 11:40)
DX: I25.110 Atherosclerotic heart disease of native coronary artery with unstable angina pectoris (principal); I48.0 Paroxysmal atrial fibrillation; C61 Malignant neoplasm of prostate; E11.9 Type 2 diabetes mellitus without complications; E78.5 Hyperlipidemia, unspecified; I10 Essential (primary) hypertension; M75.100 Unspecified rotator cuff tear or rupture of unspecified shoulder, not specified as traumatic; M50.30 Other cervical disc degeneration, unspecified cervical region; K21.9 Gastro-esophageal reflux disease without esophagitis; M19.90 Unspecified osteoarthritis, unspecified site; Z92.3 Personal history of irradiation; Z85.46 Personal history of malignant neoplasm of prostate; Z79.02 Long term (current) use of antithrombotics/antiplatelets; Z98.1 Arthrodesis status; Z79.899 Other long term (current) drug therapy; Z79.01 Long term (current) use of anticoagulants; Z80.49 Family history of malignant neoplasm of other genital organs; Z87.891 Personal history of nicotine dependence; Z82.49 Family history of ischemic heart disease and other diseases of the circulatory system; Z86.010 Personal history of colon polyps; Z98.41 Cataract extraction status, right eye; Z98.42 Cataract extraction status, left eye; Z79.4 Long term (current) use of insulin; Z86.79 Personal history of other diseases of the circulatory system; Z86.59 Personal history of other mental and behavioral disorders
CPT/HCPCS: 36415; 71046; 71275; 80048; 80053; 80061; 81001; 82043; 82306; 82550; 82553; 82570; 83036; 83690; 83735; 83880; 84153; 84439; 84443; 84484; 84550; 85025; 85379; 85610; 85730; 90686; 90732; 93306; 93454; 96365; 96366; 96376; 99285

== ENCOUNTER 2017-05-03 02:35 | Emergency (ER) | payer MEDICARE, BC ==
[2017-05-03 02:50] VITALS: RESP 18; TEMP 97.3
--- NOTE | 2017-05-03 03:22 | ED ---
General Adult HPI - General Chief complaint: Extremity Injury, Lower Stated complaint: FOOT PAIN Time Seen by Provider: 05/03/17 02:55 Source: patient, RN notes reviewed Mode of arrival: ambulatory Limitations: no limitations - History of Present Illness Initial comments: This is a 71-year-old male who presents to the emergency department with chief complaint of left great toe pain. Patient states the pain began this evening at 10 PM and he has been unable to sleep because of it. He describes the pain as pulsating and sharp. He states that his toe feels "numb." He currently rates his pain as 8/10 when the pain does come on. It occurs every few seconds. Patient denies any injuries. He does state that he has been dealing with some low back pain and wonders if this might be a nerve issue. He denies any history of gout. He denies any chest pain or shortness of breath. Denies abdominal pain, nausea, vomiting, diarrhea or constipation. - Related Data Home Medications Medication Instructions Recorded Confirmed Atorvastatin Calcium [Lipitor] 40 mg PO QAM 11/01/14 04/22/17 Bisoprolol Fumarate [Zebeta] 10 mg PO DAILY 11/26/15 04/22/17 Bicalutamide [Casodex] 50 mg PO DAILY 12/07/16 04/22/17 Losartan [Cozaar] 50 mg PO HS 03/21/17 04/22/17 Tamsulosin HCl [Flomax] 0.4 mg PO DAILY 03/21/17 04/22/17 Aspirin 1 tab PO DAILY 04/25/17 04/25/17 Clopidogrel [Plavix] 1 tab PO DAILY 04/25/17 04/25/17 Previous Rx's Medication Instructions Recorded Clopidogrel [Plavix] 75 mg PO DAILY #30 tablet 04/25/17 HYDROcodone/APAP 5-325MG [[place] 5] 1 each PO Q6HR PRN #2 tab 05/03/17 predniSONE 20 mg PO DAILY #4 tab 05/03/17 Allergies Allergy/AdvReac Type Severity Reaction Status Date / Time No Known Allergies Allergy Verified 05/03/17 02:50 Review of Systems ROS Statement: Those systems with pertinent positive or pertinent negative responses have been documented in the HPI. ROS Other: All systems not noted in ROS Statement are negative. Past Medical History Past Medical History: Coronary Artery Disease (CAD), Cancer, Diabetes Mellitus, GERD/Reflux, Hyperlipidemia, Hypertension, Myocardial Infarction (IN), Osteoarthritis (OA), Prostate Disorder Additional Past Medical History / Comment(s): 5 Herniated discs in neck causing headaches & numbness in arm and right lower back pain and right leg pain. Hx 4 fx ribs, current Prostate Cancer- last radiation tx mar 25 had total of 44 tx.occ constipation History of Any Multi-Drug Resistant Organisms: None Reported Past Surgical History: Heart Catheterization With Stent, Orthopedic Surgery, Prostate Surgery Additional Past Surgical History / Comment(s): PROSTATE BX., LT. KNEE ARTHROSCOPY X 2, CERVICAL FUSIONS, COLONOSCOPY/polypectomy-benign, ÁNGEL. CATARTACTS.Pain Procedures ( sees Dr. Langley for pain management), rt radio frequency procedures. , heart cath with one stent 04/23/2017 Past Anesthesia/Blood Transfusion Reactions: No Reported Reaction Additional Past Anesthesia/Blood Transfusion Reaction / Comment(s): does'nt like enclosed tight spaces Date of Last Stent Placement:: 1999 Past Psychological History: Anxiety, Depression Smoking Status: Former smoker Past Alcohol Use History: None Reported Past Drug Use History: None Reported - Past Family History Father Additional Family Medical History / Comment(s): Father at age 49 from coronary artery disease. Brother(s) Additional Family Medical History / Comment(s): Patient has one brother with history of smoking and no other major medical problems. Patient does not have any sisters. Daughter(s) Additional Family Medical History / Comment(s): Patient has one daughter with history of muscular dystrophy and of pneumonia. He has 1 adult daughter with no major medical problems. Patient has one son with no major medical problems. Mother Family Medical History: Cancer Additional Family Medical History / Comment(s): Mother at age 81 from uterine cancer with metastatic disease. General Exam - General Exam Comments Initial Comments: General: Awake and alert, well-developed; in no apparent distress. HEENT: Head atraumatic, normocephalic. Pupils are equal, round and reactive to light. Extraocular movements intact. Neck: Supple. Normal ROM. Cardiovascular: Regular rate and rhythm. No murmurs, rubs or gallops. Chest symmetrical. Respiratory: Lungs clear to auscultation bilaterally. No wheezes, rales or rhonchi. Normal respiratory effort with no use of accessory muscles. Musculoskeletal: Normal range of motion of left foot joints. There is no swelling, erythema or warmth of the great toe. No pallor noted. No evidence of injury. There is no tenderness on palpation. Pedal and posterior tibial pulses are 2+ equal and palpable bilaterally. Skin: [place], warm and dry without rashes or lesions. Neurological: Alert and oriented x3. CN II-XII grossly intact. Speech is fluent and answers are appropriate. No focal neuro deficits. Psychiatric: Normal mood and affect. No overt signs of depression or anxiety noted. Limitations: no limitations Course Vital Signs 05/03/17 02:45 Temperature 97.3 F L Pulse Rate 91 Respiratory 18 Rate Blood Pressure 114/68 O2 Sat by Pulse 99 Oximetry Medical Decision Making - Medical Decision Making This is a 71-year-old male who presents to the emergency department with chief complaint of left great toe pain. Patient denies any injury or trauma. On physical examination, no pallor, erythema, warmth, tenderness or swelling noted. No evidence of injury. This case was discussed with attending physician , Dr. Hall who also evaluated the patient. Patient will be discharged home with probable diagnosis of neuralgia. He'll be given steroids and some pain medication. I educated patient that steroids can cause an increase in his glucose so he is to closely monitor it over the next couple of days. He is to follow-up with his primary care provider. Patient is in agreement with plan and voices understanding. All questions were answered. Disposition Clinical Impression: Peripheral neuralgia Disposition: HOME SELF-CARE Condition: Good Instructions: Paresthesia (ED), Peripheral Neuropathy (ED) Additional Instructions: Please take medications as prescribed. Please closely monitor your glucose while taking these medications. Please follow up with primary care provider within 1-2 days. Return to emergency department if symptoms should worsen or any concerns arise. Prescriptions: HYDROcodone/APAP 5-325MG [[place] 5] 1 each PO Q6HR PRN #2 tab PRN Reason: Pain predniSONE 20 mg PO DAILY #4 tab Referrals: German Astudillo MD [Primary Care Provider] - 1-2 days Time of Disposition: 04:04
[2017-05-03] MEDS ORDERED: predniSONE 50 MG TAB PO STA (03:29)
[2017-05-03] MEDS ORDERED: IBUPROFEN 200 MG TAB PO STA (03:29)
[2017-05-03 04:47] VITALS: BP 115/80; PULSE 85
== END 2017-05-03 04:48 | disposition home or self-care (01) ==
LOC: EC 02:35
DX: G58.8 Other specified mononeuropathies (principal); I25.10 Atherosclerotic heart disease of native coronary artery without angina pectoris; E78.5 Hyperlipidemia, unspecified; I10 Essential (primary) hypertension; I25.2 Old myocardial infarction; M19.90 Unspecified osteoarthritis, unspecified site; Z85.46 Personal history of malignant neoplasm of prostate; Z98.1 Arthrodesis status; Z87.891 Personal history of nicotine dependence; Z79.02 Long term (current) use of antithrombotics/antiplatelets; Z79.82 Long term (current) use of aspirin; Z79.899 Other long term (current) drug therapy
CPT/HCPCS: 99283; J7512

== ENCOUNTER → 2017-05-13 | Outpatient (CLI) | payer MEDICARE, BC ==
[2017-05-13 12:48] VITALS: BP 149/72; PULSE 68; RESP 16
--- NOTE | 2017-05-13 13:04 | P.PN ---
Progress Note - Text Progress Note Date: 05/13/17 Patient returns for followup for chronic back pain with radiation to bilateral hips. Dr. Boudreaux recommended that the patient undergo SI RFA, which will not be covered by his insurance until June. Patient recently had a new cardiac stent put in during the month of April and is now on Plavix for the next several months (likely). Patient continues on [place] and Aleve medications from PCP for pain with good relief. Patient denies adverse drug effects from medications. Today, pt denies new-onset weakness, bowel/bladder incontinence, or any other signs or symptoms of cauda equina syndrome. There are no signs of acute intoxication, and no indications of medication diversion or overuse. In addition to above, 13-point review of systems is also negative for chest pain , shortness of breath, changes in vision, changes in hearing, new onset weakness , abdominal pain, diarrhea, extreme fatigue, malaise, fever, skin changes, homicidal or suicidal ideation, or bowel or bladder incontinence. Vital Signs: Reviewed in EMR Gen: WDWN, AAOx3, NAD HEENT: NCAT, EOMI, hearing grossly normal Pulm: resp unlabored Abd: soft, NT, ND Neck: supple, trachea midline ROM in flexion lumbar spine: reduced ROM in extension lumbar spine: reduced Lumbar paravertebral tenderness: + Facet loading: ++ bilateral SI joint tenderness: + R > L Shilo's test: + R > L Straight leg raise: neg bilateral Neuro: CN II-XII grossly intact, muscle strength lower extremities PRESERVED Imaging: Reviewed in EMR Assessment: 1. lumbar spondylosis without myelopathy 2. sacroiliitis 3. chronic pain syndrome Plan: 1. Explanation: Opioid and psychological risk scores were reviewed. Diagnoses , prognoses, and multiple treatment options including but not limited to physical therapy, interventional therapies, adjuvant medical therapies, narcotic medication therapies, and surgery were discussed with the patient and all questions were answered to the patient's satisfaction. 2. Opioid agreement: no narcotics prescribed today 3. Counseling: The patient was counseled extensively on SMOKING CESSATION, BODY MASS INDEX, EXERCISE. Specifically, the patient was instructed regarding the importance of smoking cessation, obesity, and exercise in the context of both chronic pain and overall health. 4. Procedures: bilateral SIJ injection unless patient can come off Plavix 5. Consultations: None 6. Investigations: None 7. Medications: none prescribed 8. Disposition: f/u for procedure as scheduled PQRS measures: 1-Patient's medications are documented in the chart. 2-Tobacco use is negative, counseling given 3-Patient has not had a pneumococcal vaccine. 4-Advanced care planning discussed, patient unable to give. 5-Opioid contract signed with the patient. 6-Pain positive, follow-up visit or procedure scheduled 7-Patient's blood pressure measured and documented, and patient will follow up with the primary care due to hypertension. 8-Patient's weight was measured, and body mass index ABOVE the normal limits, and counseling was done. Patient instructed to follow up with PCP. 9-Patient WAS NOT identified as an unhealthy alcohol user.
== END | disposition home or self-care (01) ==
LOC: PNWHC3 11:49
PROVIDERS: ATTEND Anesthesiology
DX: G89.4 Chronic pain syndrome (principal); M47.816 Spondylosis without myelopathy or radiculopathy, lumbar region; M46.1 Sacroiliitis, not elsewhere classified; Z79.891 Long term (current) use of opiate analgesic; Z79.1 Long term (current) use of non-steroidal anti-inflammatories (NSAID)
CPT/HCPCS: 99211

== ENCOUNTER 2017-06-09 07:43 | Day surgery (SDC) | payer MEDICARE, BC ==
[2017-06-08 10:06] VITALS: BMI 29.7
[2017-06-09 08:20] VITALS: RESP 16; TEMP 97.1
[2017-06-09] MEDS ORDERED: LIDOCAINE 1% 20 ML VIAL (10MG/ML) FOR IV START INTRADERMA ONE (08:33)
[2017-06-09 08:38] LABS: Glucose,Whole Blood 156 mg/dL (75-99)
[2017-06-09] MEDS ORDERED: LACTATED RINGERS 1,000 ML IV SCH (08:45)
[2017-06-09] MEDS ORDERED: IV FLUID CONTINUATION 1,000 ML IV ONE ×3 (08:50)
--- NOTE | 2017-06-09 08:55 | P.PCN ---
Date of Procedure: 06/09/17 Surgeon: Chris Pavon Pathology: none sent Condition: stable Disposition: PACU Description of Procedure: PREOPERATIVE DIAGNOSIS: 1-Bilateral sacroiliitis. 2 Lumbar DDD POSTOPERATIVE DIAGNOSIS:. 1-Bilateral sacroiliitis. 2 Lumbar DDD PROCEDURES: Bilateral Sacroiliac joint steroid injection with fluoroscopic guidance ANESTHESIA: Local with 1% lidocaine; conscious sedation EBL: Minimal. PROCEDURE INDICATIONS: This patient with a history of low back pain secondary to sacroiliitis and lumbar DDD unresponsive to conservative management. Patient on Plavix, last used yesterday. Patient also has NIDDM. PROCEDURE DESCRIPTION: The patient was seen and identified in the preoperative area. Risks, benefits, complications, and alternatives were discussed with the patient (including but not limited to incomplete pain relief, bleeding, infection, nerve damage, and allergies to medications), the patient agreed to proceed with the procedure and signed the consent after all questions were answered. Patient was taken to the OR and time out was completed to verify proper patient , position, laterality of pain, and allergies. Pt was placed in the prone position and a pillow was placed under the abdomen to reduce lumbar lordosis. The lumbosacral area was prepped and draped in the usual sterile fashion. Critical pause was taken. Vital signs were closely monitored during the procedure. The fluoroscopic camera was placed in contralateral oblique view and right sacroiliiac joint lower pole was identified. After local infiltration with 1% lidocaine 2 ml, Subsequently, a 22-gauge 3.5 inch spinal needle was introduced into the posteroinferior aspect of the right sacroiliac joint under direct fluoroscopic visualization. Subsequently, 3 ml of a solution of a total of 6 ml solution containing total 5 mL of 0.5% preservative-free bupivacaine mixed with 40 mg of Kenalog was injected after negative aspiration for CSF, blood, and air and negative for paresthesia. The entire procedure was repeated on the left side as above. Needle was withdrawn intact. Skin was cleansed, and bandages were applied. COMPLICATIONS: None. COMMENTS: DISPOSITION / PLANS: The patient was placed in a supine position and transferred to the recovery area in a stable condition for observation and was discharged from the recovery room after meeting discharge criteria. Home discharge instructions given to the patient by the staff. The patient was reexamined prior to discharge and there were no issues. The patient will schedule a follow-up in clinic as he may need to be on further anticoagulation in addition to the Plavix and this will preclude interventions.
[2017-06-09 09:18] VITALS: BP 142/79; PULSE 77
--- NOTE | 2017-06-09 10:47 | FL ---
Fluoroscopy HISTORY: Pain 5 seconds fluoroscopy time supplied to the referring clinician. 4 intraoperative C-arm images docume nt the procedure. See dictated report from anesthesia.
== END 2017-06-09 09:31 | disposition home or self-care (01) ==
LOC: ORPAIN 07:43
PROVIDERS: ATTEND Anesthesiology
DX: G89.4 Chronic pain syndrome (principal); M46.1 Sacroiliitis, not elsewhere classified; M51.16 Intervertebral disc disorders with radiculopathy, lumbar region; E11.9 Type 2 diabetes mellitus without complications; Z95.5 Presence of coronary angioplasty implant and graft; Z79.1 Long term (current) use of non-steroidal anti-inflammatories (NSAID); Z79.891 Long term (current) use of opiate analgesic; Z79.02 Long term (current) use of antithrombotics/antiplatelets
CPT/HCPCS: J2250; J3301; Q9965; J3010; G0260

== ENCOUNTER → 2017-07-13 | Outpatient (CLI) | payer MEDICARE, BC ==
[2017-07-13 14:25] VITALS: BP 152/93; PULSE 92; RESP 18; TEMP 97.8
--- NOTE | 2017-07-13 14:37 | P.PN ---
Progress Note - Text Progress Note Date: 07/13/17 Patient returns for followup for chronic back pain with radiation to bilateral hips. Patient recently had a new cardiac stent put in during the month of April and is now on Plavix for the next several months and thus cannot have SI RFA; he did have bilateral SIJ injection with good relief on the left side but pain has returned on the right. Patient continues on [place] and Aleve medications from PCP for pain with good relief. Patient denies adverse drug effects from medications. Today, pt denies new-onset weakness, bowel/bladder incontinence, or any other signs or symptoms of cauda equina syndrome. There are no signs of acute intoxication, and no indications of medication diversion or overuse. In addition to above, 13-point review of systems is also negative for chest pain , shortness of breath, changes in vision, changes in hearing, new onset weakness , abdominal pain, diarrhea, extreme fatigue, malaise, fever, skin changes, homicidal or suicidal ideation, or bowel or bladder incontinence. Vital Signs: Reviewed in EMR Gen: WDWN, AAOx3, NAD HEENT: NCAT, EOMI, hearing grossly normal Pulm: resp unlabored Abd: soft, NT, ND Neck: supple, trachea midline ROM in flexion lumbar spine: reduced ROM in extension lumbar spine: reduced Lumbar paravertebral tenderness: + Facet loading: ++ bilateral SI joint tenderness: + R > L Shilo's test: + R > L Straight leg raise: neg bilateral Neuro: CN II-XII grossly intact, muscle strength lower extremities PRESERVED Imaging: Reviewed in EMR Assessment: 1. lumbar spondylosis without myelopathy 2. sacroiliitis 3. chronic pain syndrome Plan: 1. Explanation: Opioid and psychological risk scores were reviewed. Diagnoses , prognoses, and multiple treatment options including but not limited to physical therapy, interventional therapies, adjuvant medical therapies, narcotic medication therapies, and surgery were discussed with the patient and all questions were answered to the patient's satisfaction. 2. Opioid agreement: no narcotics prescribed today 3. Counseling: The patient was counseled extensively on SMOKING CESSATION, BODY MASS INDEX, EXERCISE. Specifically, the patient was instructed regarding the importance of smoking cessation, obesity, and exercise in the context of both chronic pain and overall health. 4. Procedures: R SIJ injection (patient can stay on Plavix) 5. Consultations: None 6. Investigations: None 7. Medications: none prescribed 8. Disposition: f/u for procedure as scheduled; patient will likely not be able to come off Plavix until the summer to have R SI RFA PQRS measures: 1-Patient's medications are documented in the chart. 2-Tobacco use is negative, counseling given 3-Patient has not had a pneumococcal vaccine. 4-Advanced care planning discussed, patient unable to give. 5-Opioid contract signed with the patient. 6-Pain positive, follow-up visit or procedure scheduled 7-Patient's blood pressure measured and documented, and patient will follow up with the primary care due to hypertension. 8-Patient's weight was measured, and body mass index ABOVE the normal limits, and counseling was done. Patient instructed to follow up with PCP. 9-Patient WAS NOT identified as an unhealthy alcohol user.
== END | disposition home or self-care (01) ==
LOC: PNWHC3 13:55
PROVIDERS: ATTEND Anesthesiology
DX: G89.4 Chronic pain syndrome (principal); M47.816 Spondylosis without myelopathy or radiculopathy, lumbar region; M46.1 Sacroiliitis, not elsewhere classified; Z79.891 Long term (current) use of opiate analgesic; Z79.1 Long term (current) use of non-steroidal anti-inflammatories (NSAID)
CPT/HCPCS: 99211

== ENCOUNTER → 2017-07-22 | Outpatient (CLI) | payer MEDICARE, BC ==
[2017-07-22 10:14] LABS: Basophils % (A) 0 %; Eosinophils % (A) 0 %; HCT 40.7 % (39.0-53.0); HGB 13.7 gm/dL (13.0-17.5); Lymphocytes # (A) 0.4 k/uL (1.0-4.8); Lymphocytes % (A) 11 %; MCH 30.4 pg (25.0-35.0); MCHC 33.6 g/dL (31.0-37.0); MCV 90.5 fL (80.0-100.0); Mean Platelet Volume 6.6; Monocytes # (A) 0.3 k/uL (0-1.0); Monocytes % (A) 8 %; Neutrophils # (A) 3.1 k/uL (1.3-7.7); Neutrophils % (A) 79 %; Platelet Count 229 k/uL (150-450); RBC 4.49 m/uL (4.30-5.90); RDW 13.5 % (11.5-15.5); WBC 3.9 k/uL (3.8-10.6)
[2017-07-22 10:46] LABS: ALT 36 U/L (21-72); AST 24 U/L (17-59); Albumin 3.9 g/dL (3.5-5.0); Alkaline Phosphatase 66 U/L (38-126); Anion Gap 12 mmol/L; Blood Urea Nitrogen 17 mg/dL (9-20); Calcium 9.7 mg/dL (8.4-10.2); Carbon Dioxide 29 mmol/L (22-30); Chloride 99 mmol/L (98-107); Glucose 158 mg/dL (74-99); Potassium 4.5 mmol/L (3.5-5.1); Sodium 140 mmol/L (137-145); Total Bilirubin 0.7 mg/dL (0.2-1.3); Total Protein 6.7 g/dL (6.3-8.2)
[2017-07-22 11:18] LABS: Prostate Specific Antigen <0.10 ng/mL (0.00-4.00)
== END | disposition home or self-care (01) ==
LOC: LABWHC1 09:13
PROVIDERS: ATTEND Radiology Radiation Oncology
DX: C61 Malignant neoplasm of prostate (principal)
CPT/HCPCS: 36415; 80053; 84153; 85025

== ENCOUNTER 2017-08-12 07:59 | Day surgery (SDC) | payer MEDICARE, BC ==
[2017-08-10 14:40] VITALS: BMI 30.3
[2017-08-12 08:37] VITALS: RESP 16; TEMP 97.4
[2017-08-12] MEDS ORDERED: LACTATED RINGERS 1,000 ML IV ONE (08:37)
[2017-08-12 08:43] LABS: Glucose,Whole Blood 113 mg/dL (75-99)
[2017-08-12] MEDS ORDERED: LACTATED RINGERS 1,000 ML IV SCH (08:45)
--- NOTE | 2017-08-12 09:08 | P.PCN ---
Date of Procedure: 08/12/17 Surgeon: Brenda Washington Description of Procedure: Preoperative diagnoses= Right sacroiliitis. Postoperative diagnoses= same as preoperative diagnosis. Procedure= Right sacroiliac joint steroid injection under fluoroscopic guidance. Anesthesia= conscious sedation with Versed mg and fentanyl micrograms and local infiltration with lidocaine 1% 4 ml Estimated blood loss=minimal. Procedure indication= the patient had a history of severe chronic low back pain , diagnosed with sacroiliitis and lumbar sacral facet arthropathy unresponsive to conservative treatment. Procedure description= the patient was seen and identified in the preoperative holding area, risks and benefits and alternative of the procedure and possible complications discussed with the patient, patient signed the consent. an IV was started, and vital signs were monitored and were stable throughout the procedure , patient was placed in the prone position or table and the lumbosacral area was prepped and draped with a sterile fashion, vital signs were closely monitored during the procedure.The right sacroiliac joint was identified on the AP view of fluoroscopy then the C-arm was tilted to the left oblique position to superimpose the anterior and posterior joint lines on each other and to have a unified joint line with the target point at the inferior one third of this line. I used 22-gauge 3-1/2 inch Qu[place]ke spinal needle for this procedure and after getting into the sacroiliac joint I injected 40 mg of Kenalog +2 MLS of Marcaine 0.5%. Patient tolerated the procedure well without any complication, Because the patient is on Plavix I held pressure on the injection site for 3 minutes after taking the needle out. The patient returned to supine position after the back was cleaned and a Band- Aid applied, the patient transported to recovery room in stable condition and he was monitored for 30 minutes before he was discharged home and then patient was reexamined before going home and patient was discharged in stable condition and patient will follow up with the pain clinic in a few weeks
[2017-08-12] MEDS ORDERED: IV FLUID CONTINUATION 1,000 ML IV ONE (09:20)
[2017-08-12 09:31] VITALS: BP 122/77; PULSE 76
--- NOTE | 2017-08-12 10:52 | FL ---
Fluoroscopy HISTORY: Pain 4 seconds fluoroscopy time supplied to the referring clinician. 1 intraoperative C-arm images docume nt the procedure. See dictated report from anesthesia.
== END 2017-08-12 09:46 | disposition home or self-care (01) ==
LOC: ORPAIN 07:59
PROVIDERS: ATTEND Anesthesiology
DX: G89.29 Other chronic pain (principal); M46.1 Sacroiliitis, not elsewhere classified; M46.97 Unspecified inflammatory spondylopathy, lumbosacral region; I25.10 Atherosclerotic heart disease of native coronary artery without angina pectoris; Z79.02 Long term (current) use of antithrombotics/antiplatelets
CPT/HCPCS: J2250; J3301; J3010; G0260; 27096

== ENCOUNTER → 2017-08-23 | Outpatient (CLI) | payer MEDICARE, BC ==
[2017-08-23 12:02] VITALS: BP 130/80; RESP 20
--- NOTE | 2017-08-23 12:27 | P.PN ---
Progress Note - Text Progress Note Date: 08/23/17 Patient returns for followup for chronic back pain with radiation to bilateral hips. Patient recently had a new cardiac stent put in during the month of April and is now on Plavix for the next several months and thus cannot have SI RFA; he did have bilateral SIJ injection done in June with only 3-4 days' relief. Patient continues on [place] and Aleve medications from PCP for pain with good relief. Patient denies adverse drug effects from medications. Today , pt denies new-onset weakness, bowel/bladder incontinence, or any other signs or symptoms of cauda equina syndrome. There are no signs of acute intoxication, and no indications of medication diversion or overuse. In addition to above, 13-point review of systems is also negative for chest pain , shortness of breath, changes in vision, changes in hearing, new onset weakness , abdominal pain, diarrhea, extreme fatigue, malaise, fever, skin changes, homicidal or suicidal ideation, or bowel or bladder incontinence. Vital Signs: Reviewed in EMR Gen: WDWN, AAOx3, NAD HEENT: NCAT, EOMI, hearing grossly normal Pulm: resp unlabored Abd: soft, NT, ND Neck: supple, trachea midline ROM in flexion lumbar spine: reduced ROM in extension lumbar spine: reduced Lumbar paravertebral tenderness: + Facet loading: ++ bilateral SI joint tenderness: + R > L Shilo's test: + R > L Straight leg raise: neg bilateral Neuro: CN II-XII grossly intact, muscle strength lower extremities PRESERVED Imaging: Reviewed in EMR Assessment: 1. lumbar spondylosis without myelopathy 2. sacroiliitis 3. chronic pain syndrome Plan: 1. Explanation: Opioid and psychological risk scores were reviewed. Diagnoses , prognoses, and multiple treatment options including but not limited to physical therapy, interventional therapies, adjuvant medical therapies, narcotic medication therapies, and surgery were discussed with the patient and all questions were answered to the patient's satisfaction. 2. Opioid agreement: no narcotics prescribed today 3. Counseling: The patient was counseled extensively on SMOKING CESSATION, BODY MASS INDEX, EXERCISE. Specifically, the patient was instructed regarding the importance of smoking cessation, obesity, and exercise in the context of both chronic pain and overall health. 4. Procedures: none for now, consider SI RFA if patient can come off Plavix 5. Consultations: None 6. Investigations: None 7. Medications: TENS unit prescribed 8. Disposition: f/u for re-eval in 8 weeks, patient to have repeat cardiac cath this week, will likely need anticoagulation longer PQRS measures: 1-Patient's medications are documented in the chart. 2-Tobacco use is negative, counseling given 3-Patient has not had a pneumococcal vaccine. 4-Advanced care planning discussed, patient unable to give. 5-Opioid contract signed with the patient. 6-Pain positive, follow-up visit or procedure scheduled 7-Patient's blood pressure measured and documented, and patient will follow up with the primary care due to hypertension. 8-Patient's weight was measured, and body mass index ABOVE the normal limits, and counseling was done. Patient instructed to follow up with PCP. 9-Patient WAS NOT identified as an unhealthy alcohol user.
== END | disposition home or self-care (01) ==
LOC: PNWHC3 11:35
PROVIDERS: ATTEND Anesthesiology
DX: G89.4 Chronic pain syndrome (principal); M54.9 Dorsalgia, unspecified; M46.1 Sacroiliitis, not elsewhere classified; M47.816 Spondylosis without myelopathy or radiculopathy, lumbar region; Z79.891 Long term (current) use of opiate analgesic; Z95.5 Presence of coronary angioplasty implant and graft; Z79.02 Long term (current) use of antithrombotics/antiplatelets
CPT/HCPCS: 99211

== ENCOUNTER → 2017-08-24 | Outpatient (CLI) | payer MEDICARE, BC ==
[2017-08-24 08:40] LABS: HCT 40.6 % (39.0-53.0); HGB 13.6 gm/dL (13.0-17.5); MCH 30.3 pg (25.0-35.0); MCHC 33.6 g/dL (31.0-37.0); MCV 90.4 fL (80.0-100.0); Mean Platelet Volume 6.5; Platelet Count 258 k/uL (150-450); RBC 4.49 m/uL (4.30-5.90); RDW 13.4 % (11.5-15.5); WBC 5.5 k/uL (3.8-10.6)
[2017-08-24 09:03] LABS: ALT 30 U/L (21-72); AST 15 U/L (17-59); Albumin 3.8 g/dL (3.5-5.0); Alkaline Phosphatase 67 U/L (38-126); Anion Gap 11 mmol/L; Blood Urea Nitrogen 24 mg/dL (9-20); Calcium 9.3 mg/dL (8.4-10.2); Carbon Dioxide 26 mmol/L (22-30); Chloride 101 mmol/L (98-107); Cholesterol 162 mg/dL (<200); Glucose 147 mg/dL (74-99); HDL Cholesterol 49 mg/dL (40-60); LDL Cholesterol,Calculated 82 mg/dL (0-99); Potassium 4.4 mmol/L (3.5-5.1); Sodium 138 mmol/L (137-145); Total Bilirubin 0.9 mg/dL (0.2-1.3); Total Protein 6.3 g/dL (6.3-8.2); Triglycerides 156 mg/dL (<150)
== END | disposition home or self-care (01) ==
LOC: LABWHC1 07:49
PROVIDERS: ATTEND Internal Medicine Interventional Cardiology
DX: E78.2 Mixed hyperlipidemia (principal)
CPT/HCPCS: 36415; 80053; 80061; 85027

== ENCOUNTER 2017-08-25 22:00 | Emergency (ER) | payer MEDICARE, BC ==
[2017-08-25 22:08] VITALS: BP 132/72; PULSE 115; RESP 20; TEMP 98.5
[2017-08-25] MEDS ORDERED: DIPH,PERTUS(ACELL)TETVAC-LF 0.5 ML VIAL IM ONE (22:32)
--- NOTE | 2017-08-25 22:34 | ED ---
Wound/Laceration HPI - General Chief Complaint: Wound/Laceration Stated Complaint: lt arm injury Time Seen by Provider: 08/25/17 22:27 Source: patient, RN notes reviewed Mode of arrival: ambulatory Limitations: no limitations - History of Present Illness Initial Comments: This is a 72-year-old male who presents to being emergency department with chief complaint of left arm injury. Patient states that this afternoon he was out on his deck. He states that he went into the house and caught his left forearm on a metal piece on the door. He states that his skin is very fragile and tore. He states that he is currently taking Plavix. He states he was unable to get the bleeding under control and applied his own dressing. Denies any other injuries or trauma. Denies recent fevers or chills, shortness of breath or chest pain, abdominal pain, nausea or vomiting. - Related Data Home Medications Medication Instructions Recorded Confirmed Atorvastatin Calcium [Lipitor] 40 mg PO QAM 11/01/14 08/23/17 Bisoprolol Fumarate [Zebeta] 10 mg PO DAILY 11/26/15 08/23/17 Losartan [Cozaar] 50 mg PO BID 03/21/17 08/23/17 Aspirin 81 mg PO DAILY 04/25/17 08/23/17 sitaGLIPtin PHOS/metFORMIN HCL 50 - 1,000 mg PO DAILY 06/08/17 08/23/17 [Janumet 50-1,000 mg Tablet] HYDROcodone/APAP 10-325MG [[place] 1 tab PO BID PRN 08/10/17 08/23/17 10-325] Isosorbide Mononitrate [Ismo] 1 tab PO DAILY 08/23/17 08/23/17 Previous Rx's Medication Instructions Recorded Clopidogrel [Plavix] 75 mg PO DAILY #30 tablet 04/25/17 Allergies Allergy/AdvReac Type Severity Reaction Status Date / Time No Known Allergies Allergy Verified 08/25/17 22:08 Review of Systems ROS Statement: Those systems with pertinent positive or pertinent negative responses have been documented in the HPI. ROS Other: All systems not noted in ROS Statement are negative. Past Medical History Past Medical History: Coronary Artery Disease (CAD), Cancer, Diabetes Mellitus, GERD/Reflux, Hyperlipidemia, Hypertension, Myocardial Infarction (DE), Osteoarthritis (OA), Prostate Disorder Additional Past Medical History / Comment(s): 5 Herniated discs in neck causing headaches & numbness in arm and right lower back pain and right leg pain. Hx 4 fx ribs, current Prostate Cancer- last radiation tx mar 25 had total of 44 tx.occ constipation Last Myocardial Infarction Date:: UNKOWN History of Any Multi-Drug Resistant Organisms: None Reported Past Surgical History: Heart Catheterization With Stent, Orthopedic Surgery, Prostate Surgery Additional Past Surgical History / Comment(s): PROSTATE BX., LT. KNEE ARTHROSCOPY X 2, CERVICAL FUSIONS, COLONOSCOPY/polypectomy-benign, ÁNGEL. CATARTACTS.Pain Procedures , rt radio frequency procedures. , heart cath with one stent 04/23/2017, States has 2 stents in his heart as of now. Past Anesthesia/Blood Transfusion Reactions: No Reported Reaction Additional Past Anesthesia/Blood Transfusion Reaction / Comment(s): does'nt like enclosed tight spaces Date of Last Stent Placement:: 2017 Past Psychological History: Anxiety, Depression Smoking Status: Former smoker Past Alcohol Use History: None Reported Past Drug Use History: None Reported - Past Family History Father Additional Family Medical History / Comment(s): Father at age 49 from coronary artery disease. Brother(s) Additional Family Medical History / Comment(s): Patient has one brother with history of smoking and no other major medical problems. Patient does not have any sisters. Daughter(s) Additional Family Medical History / Comment(s): Patient has one daughter with history of muscular dystrophy and of pneumonia. Mother Family Medical History: Cancer Additional Family Medical History / Comment(s): Mother at age 81 from uterine cancer with metastatic disease. General Exam - General Exam Comments Initial Comments: General: Awake and alert, well-developed; in no apparent distress. HEENT: Head atraumatic, normocephalic. Pupils are equal, round and reactive to light. Extraocular movements intact. Oropharynx moist without erythema or exudate. Neck: Supple. Normal ROM. Cardiovascular: Regular rate and rhythm. No murmurs, rubs or gallops. Chest symmetrical. Respiratory: Lungs clear to auscultation bilaterally. No wheezes, rales or rhonchi. Normal respiratory effort with no use of accessory muscles. Musculoskeletal: Normal ROM, no tenderness bilateral upper and lower extremities. Ambulating normally. Sensation is intact. Radial pulses are 2+ equal and palpable bilaterally. Skin: Home, warm and dry without rashes. Superficial skin tear to the dorsal aspect of the proximal left forearm. Bleeding is controlled. Neurological: Alert and oriented x3. CN II-XII grossly intact. Speech is fluent and answers are appropriate. No focal neuro deficits. Psychiatric: Normal mood and affect. No overt signs of depression or anxiety noted. Limitations: no limitations Course Vital Signs 08/25/17 22:05 Temperature 98.5 F Pulse Rate 115 H Respiratory 20 Rate Blood Pressure 132/72 O2 Sat by Pulse 97 Oximetry Medical Decision Making - Medical Decision Making This is a 72-year-old male who presents to the emergency department with chief complaint of left arm injury. Patient sustained a skin tear to his left forearm. On presentation, a dressing was in place. This was removed and the wound was examined. It was cleaned and steri-strips and new dressing was placed. Patient's vital signs are stable and he is in no acute distress. He will be discharged home at this time. Recommended daily wound dressing changes. Patient is in agreement voices understanding. All questions were answered. Disposition Clinical Impression: Skin tear Disposition: HOME SELF-CARE Condition: Good Instructions: Skin Tear (ED), Steristrips (ED) Additional Instructions: Please leave Steri-Strips on until they fall off on their own. Please follow up with primary care provider within 1-2 days. Return to emergency department if symptoms should worsen or any concerns arise. Is patient prescribed a controlled substance at d/c from ED?: No Referrals: German Astudillo MD [Primary Care Provider] - 1-2 days Time of Disposition: 23:02
== END 2017-08-25 23:18 | disposition home or self-care (01) ==
LOC: EC 22:00
DX: S51.812A Laceration without foreign body of left forearm, initial encounter (principal); E78.5 Hyperlipidemia, unspecified; I10 Essential (primary) hypertension; I25.10 Atherosclerotic heart disease of native coronary artery without angina pectoris; E11.9 Type 2 diabetes mellitus without complications; M19.90 Unspecified osteoarthritis, unspecified site; I25.2 Old myocardial infarction; Z87.891 Personal history of nicotine dependence; Z79.02 Long term (current) use of antithrombotics/antiplatelets; Z79.82 Long term (current) use of aspirin; Z79.84 Long term (current) use of oral hypoglycemic drugs; Z79.899 Other long term (current) drug therapy; Z85.46 Personal history of malignant neoplasm of prostate; Z92.3 Personal history of irradiation; Z98.890 Other specified postprocedural states; Z95.5 Presence of coronary angioplasty implant and graft; Z23 Encounter for immunization; W22.8XXA Striking against or struck by other objects, initial encounter; Y93.89 Activity, other specified
CPT/HCPCS: 90471; 90715; 99283

== ENCOUNTER → 2017-08-27 | Day surgery (SDC) | payer MEDICARE, BC ==
[2017-08-26 11:17] VITALS: BMI 30.3
[~2017-08-27] MED LIST changes: +ALPRAZolam 0.25 MG TAB PO PRN; +ALPRAZolam 0.5 MG TAB PO PRN; +ASPIRIN 325 MG TAB PO STA; +ASPIRIN 81 MG ONE; +ASPIRIN 81 MG PO SCH; +ATORVASTATIN 40 MG TAB PO SCH; +ATORVASTATIN 80 MG TAB PO STA; +BISOPROLOL FUMARATE 10 MG PO SCH; +CLOPIDOGREL 75 MG TAB PO SCH; +IOPAMIDOL-370 125ML BTL INJ ONE; +IOPAMIDOL-370 50ML BTL INJ ONE; +ISOSORBIDE MONONITRATE ER 30 MG TAB.ER.24H PO SCH; -LACTATED RINGERS 1,000 ML IV SCH; +LIDOCAINE 2% INJ 20 MG/ML (20 ML MDV) ONE; +LIDOCAINE 2% INJ 20 MG/ML SQ ONE; +LOSARTAN 50 MG TAB PO SCH; +NITROGLYCERIN SL TABS 0.4 MG TAB SUBLINGUAL PRN; +RX INFO: IV CONTRAST WAS GIVEN 1 EACH MISC MISCELLANE PRN; +SODIUM CHLORIDE 0.9% 1,000 ML IV SCH; +SODIUM CHLORIDE 0.9% 1,000 ML in EMPTY BAG 1 BAG IV ONE; +VERAPAMIL 2.5 MG/ML 2 ML AMP ONE; +fentaNYL (PF) 50 MCG/ML 2 ML AMP IV ONE; +fentaNYL (PF) 50 MCG/ML 2 ML AMP ONE
[2017-08-27 06:54] VITALS: RESP 18
[2017-08-27 07:16] LABS: Glucose,Whole Blood 142 mg/dL (75-99)
[2017-08-27 08:20] VITALS: TEMP 98
[2017-08-27] MEDS: HYDROcodone/APAP 10-325MG 1 EACH TAB PO PRN ×2 (08:37→13:04)
--- NOTE | 2017-08-27 08:42 | CC ---
CARDIAC CATHETERIZATION REPORT Mr. Berkowitz is a 72-year-old male with a known history of coronary artery disease, status post percutaneous revascularization of his RCA in 2000 and subsequently in April of 2017, who presented with symptoms of chest discomfort, increasing in frequency and related to physical activity. He was initiated on isosorbide mononitrate with improvement in his symptoms, but because of his presentation recommendation was made regarding cardiac catheterization. The procedure as well as the risks and the complications were discussed with the patient who is in full understanding and agreement. 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 Using Xylocaine anesthesia and Seldinger technique, a 6-[place] sheath was introduced in the right femoral artery. Selective right and left coronary angiography performed using 6-[place] 4 bend right and left Ellen catheter. Multiple views of the coronary artery including hemiaxial views were obtained. Following that 5-[place]ian tight pigtail catheter introduced in the left ventricle and a 30-degree GALLAGHER view of the left ventricle was obtained. Following that, catheter and sheaths were removed. Hemostasis was obtained with compression of the right groin. There were no immediate complications. Patient was returned to his room in stable condition. FINDINGS: LEFT MAIN: This is a large-sized vessel bifurcating in left circumflex and left anterior descending artery. Left main coronary artery has a 10% to 20% plaque distally without any evidence of high-grade stenosis. LEFT ANTERIOR DESCENDING ARTERY: This is a large-sized vessel reaching toward the apex tapers down in the distal third. Calcified throughout its course, giving rise to a small to moderately sized diagonal branch proximally. The left anterior descending artery has intimal disease in the proximal mid segment of 20% to 30%. LEFT CIRCUMFLEX: This is a nondominant vessel giving rise to 3 obtuse marginal branch. The left circumflex is calcified. The first obtuse marginal branch has an 80% to 90% stenosis at the ostium. The rest of the vessel has diffuse intimal disease without any evidence of high-grade stenosis. RIGHT CORONARY ARTERY: This is a dominant vessel, moderate in caliber, heavily calcified giving rise to right PDA. The right coronary artery stented segment in the mid and distal are patent. There is a plaque distally of about 30% without any evidence of high-grade stenosis. LEFT VENTRICULOGRAM: Left ventriculogram was performed in 30-degree GALLAGHER view and revealed normal left ventricular size and systolic function. Ejection fraction 60%. There was no significant mitral regurgitation. HEMODYNAMICS: There was no gradient across the aortic valve. The left ventricle end- diastolic pressure was 10 to 12 mmHg. CONCLUSION: 1. Significant stenosis in the first obtuse marginal branch with minimal progression compared with the images of April 2017. 2. Mild to moderate triple-vessel coronary artery disease with patent stent in the right coronary artery. 3. Normal left ventricular size and systolic function. RECOMMENDATION: In view of finding anatomy and improvement in symptoms with medical therapy, I will continue medical therapy and depending on his progress, further recommendation will be made. If he has further symptoms, then I will proceed with percutaneous revascularization of the obtuse marginal branch. Those findings and recommendation were discussed with the patient and his family and are in full understanding and agreement. DURATION OF PROCEDURE: 25 minutes. ALEXSANDRA / WILFREDO: [id number] /
--- NOTE | 2017-08-27 08:48 | LTR ---
August 27, 2017 Re: [place] Dear Dr. Astudillo: I had the opportunity to perform cardiac catheterization on Mr. Berkowitz at [facility] 27 of August and a full copy of the procedure note will be forwarded to you. In brief, he was found to have no evidence of restenosis in the stented segment of the right coronary artery with mild to moderate disease in the LAD and right coronary artery and significant disease in the ostium of the first obtuse marginal branch with mild progression compared with April of 2017. At this time, I will maximize his medical therapy and if he persists in having symptoms, then angioplasty and stenting of the obtuse marginal branch will be done. I will keep you updated on his progress and thank you again for allowing me the opportunity to participate in his care. Please feel free to call for any questions. Sincerely yours, MD ALEXSANDRA Acevedo / WILFREDO: [id number] /
[2017-08-27 15:44] VITALS: BP 131/84; PULSE 64
== END | disposition home or self-care (01) ==
LOC: CATHCVL 06:16
PROVIDERS: ATTEND Internal Medicine Interventional Cardiology
DX: I25.110 Atherosclerotic heart disease of native coronary artery with unstable angina pectoris (principal); I48.0 Paroxysmal atrial fibrillation; I10 Essential (primary) hypertension; E78.2 Mixed hyperlipidemia; E11.9 Type 2 diabetes mellitus without complications; Z82.49 Family history of ischemic heart disease and other diseases of the circulatory system; Z95.5 Presence of coronary angioplasty implant and graft; Z79.82 Long term (current) use of aspirin; Z79.02 Long term (current) use of antithrombotics/antiplatelets; Z79.899 Other long term (current) drug therapy; Z79.84 Long term (current) use of oral hypoglycemic drugs
CPT/HCPCS: 93458; C1894 ×2; C1769; J2001; J3010; Q9967 ×2

== ENCOUNTER → 2017-09-27 | Outpatient (CLI) | payer MEDICARE, BC ==
[2017-09-27 14:52] VITALS: BP 146/84; PULSE 88; RESP 18
--- NOTE | 2017-09-27 15:32 | P.PN ---
Progress Note - Text Progress Note Date: 09/27/17 Patient returns for followup for chronic back pain with radiation to bilateral hips. Patient recently had a new cardiac stent put in during the month of April and is now on Plavix for the next several months and thus cannot have SI RFA; he did have bilateral SIJ injection done in June with only 3-4 days' relief. Patient continues on [place] and Aleve medications from PCP for pain with good relief. The patient could not afford to buy TENS unit that was prescribed to him on his last visit .Patient denies adverse drug effects from medications. Today, pt denies new-onset weakness, bowel/bladder incontinence, or any other signs or symptoms of cauda equina syndrome. There are no signs of acute intoxication, and no indications of medication diversion or overuse. In addition to above, 13-point review of systems is also negative for chest pain , shortness of breath, changes in vision, changes in hearing, new onset weakness , abdominal pain, diarrhea, extreme fatigue, malaise, fever, skin changes, homicidal or suicidal ideation, or bowel or bladder incontinence. Vital Signs: Reviewed in EMR Gen: WDWN, AAOx3, NAD HEENT: NCAT, EOMI, hearing grossly normal Pulm: resp unlabored Neck: supple, trachea midline ROM in flexion lumbar spine: reduced ROM in extension lumbar spine: reduced Lumbar paravertebral tenderness: + Facet loading: ++ bilateral Neuro: CN II-XII grossly intact, muscle strength lower extremities PRESERVED Imaging: Reviewed in EMR Assessment: 1. lumbar spondylosis without myelopathy 2. sacroiliitis 3. chronic pain syndrome 4. Myofascial pain in the lumbar paravertebral area on the right side Plan: 1. Explanation: Opioid and psychological risk scores were reviewed. Diagnoses , prognoses, and multiple treatment options including but not limited to physical therapy, interventional therapies, adjuvant medical therapies, narcotic medication therapies, and surgery were discussed with the patient and all questions were answered to the patient's satisfaction. 2. Opioid agreement: no narcotics prescribed today 3. Counseling: The patient was counseled extensively on SMOKING CESSATION, BODY MASS INDEX, EXERCISE. Specifically, the patient was instructed regarding the importance of smoking cessation, obesity, and exercise in the context of both chronic pain and overall health. 4. Procedures: Trigger point injection on the right paravertebral lumbar musculature with no sedation. We will hold pressure on the injected area for a few minutes after the injection to avoid any hematomas due to his treatment with Plavix. 5. Consultations: None 6. Investigations: None 7. Medications: None 8. Disposition: f/u for the above-mentioned procedure PQRS measures: 1-Patient's medications are documented in the chart. 2-Tobacco use is negative, counseling given 3-Patient has not had a pneumococcal vaccine. 4-Advanced care planning discussed, patient unable to give. 5-Opioid contract signed with the patient. 6-Pain positive, follow-up visit or procedure scheduled 7-Patient's blood pressure measured and documented, and patient will follow up with the primary care due to hypertension. 8-Patient's weight was measured, and body mass index ABOVE the normal limits, and counseling was done. Patient instructed to follow up with PCP. 9-Patient WAS NOT identified as an unhealthy alcohol user.
== END | disposition home or self-care (01) ==
LOC: PNWHC3 13:55
PROVIDERS: ATTEND Anesthesiology
DX: G89.4 Chronic pain syndrome (principal); M54.9 Dorsalgia, unspecified; M47.816 Spondylosis without myelopathy or radiculopathy, lumbar region; M46.1 Sacroiliitis, not elsewhere classified; M79.1 Myalgia; Z95.5 Presence of coronary angioplasty implant and graft; Z79.02 Long term (current) use of antithrombotics/antiplatelets; Z79.891 Long term (current) use of opiate analgesic
CPT/HCPCS: 99211

== ENCOUNTER → 2017-10-13 | Day surgery (SDC) | payer MEDICARE, BC ==
[2017-10-07 10:51] VITALS: BMI 30.3
[2017-10-13 11:13] VITALS: BP 151/88; PULSE 71; RESP 18; TEMP 97.6
--- NOTE | 2017-10-13 11:53 | P.PCN ---
Date of Procedure: 10/13/17 Procedure(s) Performed: Preoperative diagnoses= 1- sacroiliitis. 2-myofascial pain syndrome right side lumbar paravertebral muscles. 3-lumbar spondylosis Postoperative diagnoses= same as preoperative diagnosis. Procedure= trigger point injection right side lower lumbar area, total of 2 trigger points injected Anesthesia = none. Estimated blood loss=none. Procedure indication= the patient had a history of severe chronic low back pain , diagnosed with sacroiliitis and myofascial pain syndrome right-sided lumbar paravertebral muscles Procedure description= the patient was seen and identified in the preoperative holding area, risks and benefits and alternative of the procedure and possible complications discussed with the patient, and he agreed with the preceding, patient signed the consent , and vital signs were monitored and were stable throughout the procedure, patient was placed in the sitting position or table and the lumbosacral area was prepped with chlorhexidine 3, then using 25-gauge needle each of the trigger point that the most marked in the preop holding area total of 2 trigger points each one of them injected with 3 ML of the mixture of ropivacaine 6 ML and 40 mg of Kenalog, 3 mL injected at each trigger point after negative aspiration, and there was no paresthesia during the injection The patients back was cleaned and a Band-Aid applied, the patient transported to recovery room in stable condition and he was monitored for 30 minutes before he was discharged home and then patient was reexamined before going home and patient was discharged in stable condition and patient will follow up with the pain clinic in a few weeks
[2017-10-13 12:00] LABS: Glucose,Whole Blood 129 mg/dL (75-99)
== END ==
LOC: ORPAIN 08:33
PROVIDERS: ATTEND Specialist
DX: M46.1 Sacroiliitis, not elsewhere classified (principal); G89.29 Other chronic pain; M79.1 Myalgia; M47.816 Spondylosis without myelopathy or radiculopathy, lumbar region; I25.10 Atherosclerotic heart disease of native coronary artery without angina pectoris
CPT/HCPCS: 20552; J3301; 20553

== ENCOUNTER → 2017-11-15 | Outpatient (CLI) | payer MEDICARE, BC ==
[2017-11-15 12:12] VITALS: BP 143/83; PULSE 84; RESP 18
--- NOTE | 2017-11-15 12:50 | P.PN ---
Subjective Progress Note Date: 11/15/17 This is a 72-year-old gentleman with history of chronic lower back pain and being treated with anticoagulants due to history of coronary artery disease. The patient responded very well to previous RFA on the lumbar spine. He still complains of pain on the right side of his lower back that starts when he ambulates. He takes Orma from his primary care physician and on top of that he uses Tylenol [id number] as he states. He denies any bowel or bladder dysfunction or any weakness in the lower extremities. In addition to above, 13-point review of systems is also negative for chest pain , shortness of breath, changes in vision, changes in hearing, new onset weakness , abdominal pain, diarrhea, extreme fatigue, malaise, fever, skin changes, homicidal or suicidal ideation, or bowel or bladder incontinence. Vital Signs: Reviewed in EMR Gen: WDWN, AAOx3, NAD HEENT: NCAT, EOMI, hearing grossly normal Pulm: resp unlabored Neck: supple, trachea midline Normal muscle strength in the lower extremities He has tenderness on the right side of his lumbar spine in the paravertebral area. Neuro: CN II-XII grossly intact, muscle strength lower extremities PRESERVED Imaging: Reviewed in EMR Assessment: 1. lumbar spondylosis without myelopathy 2. sacroiliitis 3. chronic pain syndrome 4. Myofascial pain in the lumbar paravertebral area on the right side Plan: 1. Explanation: Opioid and psychological risk scores were reviewed. Diagnoses , prognoses, and multiple treatment options including but not limited to physical therapy, interventional therapies, adjuvant medical therapies, narcotic medication therapies, and surgery were discussed with the patient and all questions were answered to the patient's satisfaction. 2. Opioid agreement: no narcotics prescribed today 3. Counseling: The patient was counseled extensively on SMOKING CESSATION, BODY MASS INDEX, EXERCISE. Specifically, the patient was instructed regarding the importance of smoking cessation, obesity, and exercise in the context of both chronic pain and overall health. 4. Procedures: Trigger point injection on the right paravertebral lumbar musculature with no sedation. We will hold pressure on the injected area for a few minutes after the injection to avoid any hematomas due to his treatment with Plavix. 5. Consultations: None 6. Investigations: None 7. Medications: None, the patient is warned about taking more than 2 pills of Tylenol [id number] because he also takes Orma. 8. Disposition: We will see Mr. Og on an as-needed basis and when it is safe to hold his anticoagulants for a few days then we can plan on doing a right lumbar medial branch RFA Objective - Vital Signs Vital signs: Vital Signs Temp Pulse 84 11/15/17 12:04 Resp 18 11/15/17 12:04 BP 143/83 11/15/17 12:04 Pulse Ox Intake & Output 11/14/17 11/15/17 11/15/17 18:59 06:59 18:59 Weight 106.594 kg
== END | disposition home or self-care (01) ==
LOC: PNWHC3 11:40
PROVIDERS: ATTEND Anesthesiology
DX: G89.4 Chronic pain syndrome (principal); M54.5 Low back pain; M47.816 Spondylosis without myelopathy or radiculopathy, lumbar region; M46.1 Sacroiliitis, not elsewhere classified; M79.1 Myalgia; Z79.01 Long term (current) use of anticoagulants; I25.10 Atherosclerotic heart disease of native coronary artery without angina pectoris; Z79.891 Long term (current) use of opiate analgesic
CPT/HCPCS: 99211

== ENCOUNTER → 2017-11-29 | Outpatient (CLI) | payer MEDICARE, BC ==
[2017-11-29 09:23] LABS: ALT 39 U/L (21-72); AST 21 U/L (17-59); Albumin 3.9 g/dL (3.5-5.0); Alkaline Phosphatase 65 U/L (38-126); Anion Gap 8 mmol/L; Blood Urea Nitrogen 15 mg/dL (9-20); Calcium 9.1 mg/dL (8.4-10.2); Carbon Dioxide 29 mmol/L (22-30); Chloride 101 mmol/L (98-107); Cholesterol 176 mg/dL (<200); Creatine Kinase 46 U/L (55-170); Glucose 136 mg/dL (74-99); HDL Cholesterol 54 mg/dL (40-60); LDL Cholesterol,Calculated 77 mg/dL (0-99); Magnesium 1.4 mg/dL (1.6-2.3); Potassium 4.6 mmol/L (3.5-5.1); Sodium 138 mmol/L (137-145); Total Bilirubin 0.7 mg/dL (0.2-1.3); Total Protein 6.4 g/dL (6.3-8.2); Triglycerides 227 mg/dL (<150); Uric Acid 5.2 mg/dL (3.5-8.5)
[2017-11-29 10:28] LABS: Prostate Specific Antigen <0.10 ng/mL (0.00-4.00)
[2017-11-29 10:32] LABS: Basophils % (A) 0 %; Eosinophils % (A) 0 %; HCT 43.1 % (39.0-53.0); HGB 13.9 gm/dL (13.0-17.5); Lymphocytes # (A) 0.5 k/uL (1.0-4.8); Lymphocytes % (A) 10 %; MCHC 32.4 g/dL (31.0-37.0); MCV 92.8 fL (80.0-100.0); Mean Platelet Volume 6.6; Monocytes # (A) 0.3 k/uL (0-1.0); Monocytes % (A) 7 %; Neutrophils # (A) 3.6 k/uL (1.3-7.7); Neutrophils % (A) 81 %; Platelet Count 176 k/uL (150-450); RBC 4.64 m/uL (4.30-5.90); RDW 14.7 % (11.5-15.5); WBC 4.5 k/uL (3.8-10.6)
== END | disposition home or self-care (01) ==
LOC: LABWHC1 08:27
PROVIDERS: ATTEND Radiology Radiation Oncology
DX: E78.00 Pure hypercholesterolemia, unspecified (principal); I10 Essential (primary) hypertension; E11.9 Type 2 diabetes mellitus without complications; C61 Malignant neoplasm of prostate
CPT/HCPCS: 36415; 80053; 80061; 82550; 83036; 83735; 84153; 84443; 84550; 85025

== ENCOUNTER 2017-12-12 11:11 | Emergency (ER) | payer MEDICARE, BC ==
[2017-12-12] MEDS ORDERED: MORPHINE SULFATE 4 MG/ML SYRINGE IM STA (11:26)
[2017-12-12] MEDS ORDERED: ONDANSETRON ODT 4 MG TAB PO STA (11:29)
[2017-12-12] MEDS ORDERED: DEXAMETHASONE 4 MG TAB PO STA (11:29)
--- NOTE | 2017-12-12 11:46 | ED ---
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 Raji trujillo off and had a shot of steroid shot in his left shoulder about a month ago he was told earlier that left knee is positive bowel has pain on now [place] 10 3 times a day for a long time he called his primary care on Wednesday, he was unable to get his prescription filled. He also has history of back pain he has a stated that the nerve was burned off on the one side on his lumbar spine. He denies any recent injury to his lower back or left knee but since yesterday afternoon this is about the time when he took his last [place] he has not been able to walk he is to and he said he didn't make it from park into the ER today. No headaches no chest pain or shortness of breath no abdominal pain all the review of system is unremarkable except the above. - Related Data Home Medications Medication Instructions Recorded Confirmed Atorvastatin Calcium [Lipitor] 40 mg PO QAM 11/01/14 11/15/17 Bisoprolol Fumarate [Zebeta] 10 mg PO DAILY 11/26/15 11/15/17 Losartan [Cozaar] 100 mg PO DAILY 03/21/17 11/15/17 Aspirin 81 mg PO DAILY 04/25/17 11/15/17 sitaGLIPtin PHOS/metFORMIN HCL 1 tab PO 1200 06/08/17 11/15/17 [Janumet 50-1,000 mg Tablet] HYDROcodone/APAP 10-325MG [[place] 1 tab PO BID PRN 08/10/17 11/15/17 10-325] Isosorbide Mononitrate [Isosorbide 30 mg PO DAILY 08/26/17 11/15/17 Mononitrate ER] Previous Rx's Medication Instructions Recorded Clopidogrel [Plavix] 75 mg PO DAILY #30 tablet 04/25/17 HYDROcodone/APAP 5-325MG [[place] 5] 1 - 2 each PO Q6HR PRN #12 tab 12/12/17 predniSONE [Deltasone] 20 mg PO DAILY #5 tablet 12/12/17 Allergies Allergy/AdvReac Type Severity Reaction Status Date / Time No Known Allergies Allergy Verified 12/12/17 11:16 Review of Systems ROS Statement: Those systems with pertinent positive or pertinent negative responses have been documented in the HPI. ROS Other: All systems not noted in ROS Statement are negative. Past Medical History Past Medical History: Coronary Artery Disease (CAD), Cancer, Chest Pain / Angina , Diabetes Mellitus, GERD/Reflux, Hyperlipidemia, Hypertension, Osteoarthritis ( OA), Prostate Disorder Additional Past Medical History / Comment(s): 5 Herniated discs in neck causing headaches & numbness in arm and right lower back and pain and right leg pain. Hx 4 fx ribs, current Prostate Cancer- last radiation tx Mar 25-2016 had total of 44 tx. occ constipation, skin tear/peeling of skin on left arm-has sutures and dressing on Last Myocardial Infarction Date:: UNKOWN History of Any Multi-Drug Resistant Organisms: None Reported Past Surgical History: Adenoidectomy, Heart Catheterization, Heart Catheterization With Stent, Orthopedic Surgery, Prostate Surgery, Tonsillectomy Additional Past Surgical History / Comment(s): PROSTATE BX., LT. KNEE ARTHROSCOPY X 2, CERVICAL FUSIONS, COLONOSCOPY, ÁNGEL. CATARTACTS.Pain Procedures , rt radio frequency procedures. , total 2 heart stents, hemmorhoidectomy,heart cath August 2017 Past Anesthesia/Blood Transfusion Reactions: No Reported Reaction Additional Past Anesthesia/Blood Transfusion Reaction / Comment(s): doesn't like enclosed tight spaces Date of Last Stent Placement:: 04/24/17 Past Psychological History: No Psychological Hx Reported Smoking Status: Former smoker Past Alcohol Use History: None Reported Past Drug Use History: None Reported - Past Family History Father Additional Family Medical History / Comment(s): Father at age 49 from coronary artery disease. Brother(s) Additional Family Medical History / Comment(s): Patient has one brother with history of smoking and no other major medical problems. Patient does not have any sisters. Daughter(s) Additional Family Medical History / Comment(s): Patient has one daughter with history of muscular dystrophy and of pneumonia. Mother Family Medical History: Cancer Additional Family Medical History / Comment(s): Mother at age 81 from uterine cancer with metastatic disease. General Exam - General Exam Comments Initial Comments: General: The patient is awake and alert, in no distress, and does not appear acutely ill. Skin: Skin is warm and dry and no rashes or lesions are noted. Eye: Pupils are equal, round and reactive to light, extra-ocular movements are intact; there is normal conjunctiva bilaterally. Ears, nose, mouth and throat: There are moist mucous membranes and no oral lesions. Neck: The neck is supple, there is no tenderness or JVD. Cardiovascular: There is a regular rate and rhythm. No murmur, rub or gallop is appreciated. Respiratory: To auscultation bilateral, no wheezing no rhonchi no distress respiratory stoddard noticed Gastrointestinal: Soft, non-distended, non-tender abdomen without masses or organomegaly noted. There is no rebound or guarding present. Bowel sounds are unremarkable. Back: There is no tenderness to palpation in the midline. There is no obvious deformity. Musculoskeletal: Left knee exam reveals mild inflammation over the suprapatellar and infrapatellar area comparing to his right knee also mildly tender over the medial collateral ligament, range of motion is quite compromised because of the pain is not able to flex beyond 30 palpation of the calf muscles was unremarkablepatient of a high index of suspicion for the DVT at this point no neurovascular compromise noticed of the left lower extremity, knee seems stable with no major ligament injury leg anterior cruciate injury is suspected at this point no obvious history to support that either Neurological: CN II-XII intact, Cranial nerves III through XII are intact. There are no obvious motor or sensory deficits. Coordination appears grossly intact. Speech is normal. Psychiatric: Cooperative, appropriate mood & affect, normal judgment. Limitations: no limitations Course Vital Signs 12/12/17 11:12 Temperature 98.8 F Pulse Rate 95 Respiratory 16 Rate Blood Pressure 133/86 O2 Sat by Pulse 96 Oximetry Medical Decision Making - Medical Decision Making Reviewed his x-ray data findings are discussed with the patient also discussed some other options which included seeing Dr. Raji trujillo off again getting a steroid shot or some neck show no getting evaluated for an internal knee replacement and he agreed to see Dr. Choi in the meantime we'll give him prednisone for next 5 days and few norcos Disposition Clinical Impression: Left knee pain, Osteoarthritis Disposition: HOME SELF-CARE Condition: Good Instructions: Knee Pain (ED) Prescriptions: HYDROcodone/APAP 5-325MG [[place] 5] 1 - 2 each PO Q6HR PRN #12 tab PRN Reason: Pain predniSONE [Deltasone] 20 mg PO DAILY #5 tablet Is patient prescribed a controlled substance at d/c from ED?: Yes When asked, does pt state using other controlled substances?: Yes If prescribed controlled substance>3 days was MAPS reviewed?: Prescribed <3 Days (<three days) If opioid is for acute pain is fill amount 7 days or less?: Yes Referrals: German Astudillo MD [Primary Care Provider] - 1-2 days Raji Choi DO [Doctor of Osteopathic Medicine] - 1-2 days
--- NOTE | 2017-12-12 12:19 | XR ---
EXAMINATION TYPE: XR knee complete LT , 3 VIEWS DATE OF EXAM ORDERED: 12/12/2017 HISTORY: Pain. COMPARISON: None. FINDINGS: There is medial joint space loss. No fracture or dislocation is seen. No joint effusion is seen. There is vascular calcification. IMPRESSION: OSTEOARTHRITIS.
[2017-12-12 13:11] VITALS: BP 128/77; PULSE 89; RESP 20; TEMP 97.8
== END 2017-12-12 13:11 | disposition home or self-care (01) ==
LOC: EC 11:11
DX: M17.12 Unilateral primary osteoarthritis, left knee (principal); I25.10 Atherosclerotic heart disease of native coronary artery without angina pectoris; E11.9 Type 2 diabetes mellitus without complications; E78.5 Hyperlipidemia, unspecified; I10 Essential (primary) hypertension; Z85.46 Personal history of malignant neoplasm of prostate; Z92.21 Personal history of antineoplastic chemotherapy; Z95.818 Presence of other cardiac implants and grafts; Z95.5 Presence of coronary angioplasty implant and graft; Z98.1 Arthrodesis status; Z87.891 Personal history of nicotine dependence; Z79.82 Long term (current) use of aspirin; Z79.84 Long term (current) use of oral hypoglycemic drugs; Z79.899 Other long term (current) drug therapy
CPT/HCPCS: 73562; 99283; 96372; J8540; J2270

== ENCOUNTER → 2018-03-04 | Outpatient (CLI) | payer MEDICARE, BC ==
[2018-03-04 12:43] LABS: HCT 39.7 % (39.0-53.0); HGB 13.3 gm/dL (13.0-17.5); MCH 30.7 pg (25.0-35.0); MCHC 33.4 g/dL (31.0-37.0); Platelet Count 250 k/uL (150-450); RBC 4.32 m/uL (4.30-5.90); RDW 13.4 % (11.5-15.5); WBC 4.9 k/uL (3.8-10.6)
[2018-03-04 12:52] LABS: Calcium 8.9 mg/dL (8.4-10.2); Potassium 4.5 mmol/L (3.5-5.1); Total Bilirubin 0.7 mg/dL (0.2-1.3); Total Protein 6.7 g/dL (6.3-8.2)
[2018-03-04 13:29] LABS: Appearance,Urine Clear (Clear); Bilirubin,Urine Negative (Negative); Blood,Urine Negative (Negative); Color,Urine Yellow; Glucose,Urine (UA) Trace (Negative); Ketones,Urine Negative (Negative); Leukocyte Esterase,Urine Negative (Negative); Nitrite,Urine Negative (Negative); Protein,Urine Trace (Negative); Specific Gravity,Urine 1.018 (1.001-1.035); Urobilinogen,Urine <2.0 mg/dL (<2.0)
[2018-03-04 13:35] LABS: Partial Thromboplastin Time 23.4 sec (22.0-30.0)
== END | disposition home or self-care (01) ==
LOC: LABPAT 11:56
PROVIDERS: ATTEND Orthopaedic Surgery
DX: Z01.818 Encounter for other preprocedural examination (principal); Z01.812 Encounter for preprocedural laboratory examination; Z79.01 Long term (current) use of anticoagulants
CPT/HCPCS: 36415; 80053; 81003; 85027; 85610; 85730; 87070

== ENCOUNTER 2018-03-22 09:20 | Inpatient (IN) | payer MEDICARE, BC ==
[2018-03-17 08:28] VITALS: BMI 30.9
[~2018-03-22 09:20] MED LIST changes: +ACETAMINOPHEN TAB 500 MG TAB PO ONE; -ALPRAZolam 0.25 MG TAB PO PRN; -ALPRAZolam 0.5 MG TAB PO PRN; -ASPIRIN 325 MG TAB PO STA; -ASPIRIN 81 MG ONE; -ASPIRIN 81 MG PO SCH; -ATORVASTATIN 40 MG TAB PO SCH; -ATORVASTATIN 80 MG TAB PO STA; -BISOPROLOL FUMARATE 10 MG PO SCH; -CLOPIDOGREL 75 MG TAB PO SCH; +DEXAMETHASONE SOD PHOSPHATE 10 MG/ML 1 ML VIAL IV ONE; +HYDROmorphone 0.5 MG/0.5 ML SYRINGE IVP PRN; -IOPAMIDOL-370 125ML BTL INJ ONE; -IOPAMIDOL-370 50ML BTL INJ ONE; -ISOSORBIDE MONONITRATE ER 30 MG TAB.ER.24H PO SCH; +LIDOCAINE 1% 20 ML VIAL (10MG/ML) FOR IV START INTRADERMA PRN; -LIDOCAINE 2% INJ 20 MG/ML (20 ML MDV) ONE; -LIDOCAINE 2% INJ 20 MG/ML SQ ONE; -LOSARTAN 50 MG TAB PO SCH; +MELOXICAM 7.5 MG TAB PO ONE; -NITROGLYCERIN SL TABS 0.4 MG TAB SUBLINGUAL PRN; +ONDANSETRON 4 MG/2 ML VIAL IVP ONE; +ROPIVACAINE 246.25 MG, EPINEPHrine 0.5 MG, KETOROLAC 30 MG, cloNIDine HCL/PF 80 MCG, WA... MISCELLANE ONE; -RX INFO: IV CONTRAST WAS GIVEN 1 EACH MISC MISCELLANE PRN; +SCOPOLAMINE 1.5MG/72HR PATCH TRANSDERM ONE; -SODIUM CHLORIDE 0.9% 1,000 ML IV SCH; -SODIUM CHLORIDE 0.9% 1,000 ML in EMPTY BAG 1 BAG IV ONE; +TRANEXAMIC ACID 1,000 MG in SODIUM CHLORIDE 0.9% 50 ML IVPB ONE; -VERAPAMIL 2.5 MG/ML 2 ML AMP ONE; +ceFAZolin IN SWFI 2 GM/20 ML SYRINGE IVP ONE; -fentaNYL (PF) 50 MCG/ML 2 ML AMP IV ONE; -fentaNYL (PF) 50 MCG/ML 2 ML AMP ONE
[2018-03-22] MEDS: LACTATED RINGERS 1,000 ML IV SCH (12:22)
[2018-03-22 12:25] LABS: Glucose,Whole Blood 175 mg/dL (75-99)
[2018-03-22] MEDS ORDERED: fentaNYL (PF) 50 MCG/ML 2 ML AMP IV ONE (12:35)
[2018-03-22] MEDS ORDERED: MIDAZOLAM 2 MG/2 ML VIAL IV ONE (12:35)
[2018-03-22] MEDS ORDERED: ROPIVACAINE 1,100 MG, SODIUM CHLORIDE 0.9% 500 ML 330 ML MISCELLANE PRN ×2 (13:27)
--- NOTE | 2018-03-22 13:29 | P.ONQ ---
Anesthesiology Proc Note - PNB - Peripheral Nerve Block Performed Left Adductor Canal Infusion Time Out Performed: Yes Procedure Start Time: 12:34 Indication: Acute Post-Operative Pain, Analgesia Specifically requested for management of pain by DrCatarino: Raji Choi Sedation Type: Sedate with meaningful contact maintained Preparation: Sterile Prep Position: Supine Catheter Depth at Skin (cm): 8 Catheter: Indwelling Needle Types: Other (see comment) (Pajunk) Needle Size: 100mm (4") Needle Gauge: 18 Technique: Ultrasound Injectate: 0.5% Ropivacaine (see comment for volume) (20cc) Blood Aspirated: No Pain Paresthesia on Injection Noted: No Resistance on Injection: Normal Events: Uneventful and Well Tolerated
[2018-03-22] MEDS ORDERED: fentaNYL (PF) 50 MCG/ML 2 ML AMP ONE (13:54)
[2018-03-22] MEDS ORDERED: PROPOFOL 10 MG/ML 20 ML VIAL IV ONE (13:54)
[2018-03-22] MEDS ORDERED: SODIUM CHLORIDE 0.9% 100 ML BAG ONE (13:54)
[2018-03-22] MEDS ORDERED: MIDAZOLAM 2 MG/2 ML VIAL ONE (13:54)
[2018-03-22] MEDS ORDERED: TRANEXAMIC ACID 1,000 MG/10 ML VIAL ONE (13:54)
[2018-03-22] MEDS ORDERED: ePHEDrine SULFATE/0.9% NACL/PF 50 MG/5 ML SYRINGE IV ONE (13:54)
[2018-03-22] MEDS ORDERED: ceFAZolin 3,000 MG in SODIUM CHLORIDE 0.9% IRRIGATIO 3,000 ML IRRIGATION ONE (13:59)
[2018-03-22] MEDS ORDERED: MAGNESIUM HYDROXIDE 2,400 MG/10 ML CUP PO PRN (14:05)
[2018-03-22] MEDS ORDERED: BISACODYL 10 MG SUPP RECTAL PRN (14:05)
[2018-03-22] MEDS ORDERED: hydrOXYzine PAMOATE 25 MG CAP PO PRN (14:05)
[2018-03-22] MEDS ORDERED: HYDROmorphone 1 MG/ML 1 ML SYRINGE IVP PRN ×3 (14:05)
[2018-03-22] MEDS ORDERED: NALOXONE 0.4 MG/ML 1 ML VIAL IV PRN (14:05)
[2018-03-22] MEDS ORDERED: ONDANSETRON 4 MG/2 ML VIAL IVP PRN (14:05)
[2018-03-22] MEDS ORDERED: NA PHOS,M-B/NA PHOS,DI-BA 133 ML ENEMA RECTAL PRN (14:05)
[2018-03-22] MEDS ORDERED: DIAZEPAM 5 MG TAB PO PRN (14:05)
--- NOTE | 2018-03-22 15:13 | P.OP ---
Date of Procedure: 03/22/18 Preoperative Diagnosis: Severe osteoarthritis left knee Postoperative Diagnosis: Severe osteoarthritis left knee Procedure(s) Performed: Left total knee arthroplasty Implants: [employer] Journey II CR Oxinium cruciate retaining femoral component size 8, left [employer] left nonporous tibial baseplate size 6 [employer] Journey II, XLPE CR articular insert, size 9 mm, Size 5-6 left [employer] BCS resurfacing oval patellar component, 35 mm All components were cemented using Palacos R bone cement.. The articulation is Oxinium on polyethylene. Anesthesia: spinal Surgeon: Raji Choi Technician'S Helper #1: Paola Xiao Estimated Blood Loss (ml): 50 Pathology: other (Bone and cartilage) Condition: stable Disposition: PACU Indications for Procedure: After failure of conservative treatment we discussed the surgical and nonsurgical treatment options at length. Patient wishes to proceed with a total knee arthroplasty. Complications specific to this procedure were discussed at length, including but not limited to infection, bleeding, stiffness , and nerve injury. Patient is aware of all these complications and informed consent was obtained Operative Findings: The operative findings are consistent with severe osteoarthritis of the left knee Description of Procedure: Patient was seen in the preoperative area consent was reviewed and operative site was marked with a skin marker. An adductor canal pain catheter was placed by anesthesia in the preoperative area. Patient was then brought to the operating room and given preoperative antibiotics intravenously. A spinal anesthetic was administered by the anesthesia department. A tourniquet was placed on the upper thigh and the lower extremity was prepped and draped in usual sterile fashion. A gram of transexamic acid was given. A universal timeout was then performed which confirmed the patient's name, surgical site, ALLERGIES, and consent. The lower extremity was then exsanguinated and tourniquet was inflated to 250 mmHg. A standard and anterior midline approach to the knee was performed. The skin and subcutaneous tissue was dissected down to the patellar tendon. A medial parapatellar arthrotomy was then performed. The knee was then extended, the patellar was everted, and the knee was again flexed. Anterior horns of both menisci were excised, and a release was performed to the posterior medial aspect of the knee. On gross visual inspection, there was complete loss of articular cartilage in the medial and patellofemoral joint spaces. There was also significant cartilage damage in the lateral compartment. There were multiple periarticular osteophytes which were then removed with a Ronguer. The femoral canal was then opened with the appropriate drill, and the intramedullary femoral cutting guide was then placed and set for 5 of valgus. The distal femoral cutting block was then pinned in place, and the distal femur was then cut. The cutting block was then removed and the cut was checked for flatness. Next, the sizing guide was then placed and set for 3 external rotation based off of the epicondylar axis and [place]itesides line. After the femur was sized, the appropriate 4-in-1 cutting block was then pinned in place. The anterior condyles were cut without notching. The posterior and chamfer cuts were performed while protecting the collateral ligaments. The cutting block was then removed, and the femoral canal was plugged with autologous bone. Attention was then directed to the tibia. The remaining ACL was removed with a Ronguer, and the tibia was then gently subluxed forward with a large bent knee retractor. Any remaining menisci was excised. The posterior lateral corner was cauterized in order to cauterize the lateral geniculate artery. The extra medullary tibial cutting guide was then placed, set for the appropriate rotation , slope, and depth of resection. The proximal tibia cutting guide was then pinned in place. Proximal tibia was then cut and sized. Next trials were then placed with the appropriate-sized insert. The knee was able to fully extend and flex to 130 and was stable throughout all range of motion. The knee was then extended, patella everted. Patella was then measured, and then using an osteotomy guide, the patella was cut at the appropriate level. The patella was then measured and drilled and the patella trial was then placed. The knee was then taken through range of motion with the patella trial and the patella tracked normally. The knee was then extended patella trial was then removed and the patella was everted. Knee was then flexed and lug holes were drilled through the femoral trial and the femoral trial was then removed. The tibial was then exposed, and the tibial broach guide was then pinned in place after it was set for the appropriate rotation to allow for the most coverage without overhang. The tibia was then reamed and broached. The cut surfaces of bone were then irrigated with pulsatile lavage. The posterior structures were injected with the ropivacaine solution. The knee was also irrigated with Irrisept solution. The components were then opened, the cement was mixed, and the components were then cemented in place. The cement was allowed to harden with the knee in full extension. While the cement was hardening, the remaining soft tissues were then injected with a ropivacaine solution, which consisted of 246.25 mg of ropivacaine, 0.5 mg of epinephrine, 30 mg of Toradol, 80 g of clonidine, and 48.45 mL of sterile water, for a total of 100 mL of fluid injected. After the cemented hardened. The tourniquet was released, and hemostasis was obtained. A second gram of transexamic acid was given. The knee was again irrigated. The knee was again taken through range of motion and found to be stable throughout all range of motion of 0-130 , and the patella tracked normally. The fascia was then closed with #2 strata fix suture. The subcutaneous tissue was closed with 3-0 Vicryl and 3-0 strata fix. Dermabond glue was used for the skin and placed with the knee in flexion. The patient was placed in a sterile silver dressing. Patient was then transferred to recovery room in stable condition. The lab assistant TANA Emerson was required due the complexity surgery and the need for a skilled teachers' assistant. She assisted in positioning, draping, retraction, and closure of the wound.
[2018-03-22] MEDS ORDERED: LACTATED RINGERS 1,000 ML IV ONE (15:30)
[2018-03-22 16:14] LABS: Glucose,Whole Blood 214 mg/dL (75-99)
--- NOTE | 2018-03-22 16:23 | XR ---
EXAMINATION TYPE: XR knee limited LT DATE OF EXAM: 03/22/2018 CLINICAL HISTORY: Postoperative evaluation Two views of the left knee are submitted. Identified are changes of total knee arthroplasty with fem oral and tibial components appearing well seated. Postsurgical soft tissue changes are noted. Align ment is anatomic.
[2018-03-22] MEDS ORDERED: INSULIN ASPART 100 UNIT/ML 1 ML 10 ML VIAL SQ ONE ×2 (16:31)
[2018-03-22] MEDS: SODIUM CHLORIDE 0.9% 1,000 ML IV SCH (17:26)
[2018-03-22 23:41] LABS: Glucose,Whole Blood 296 mg/dL (75-99)
[2018-03-22] MEDS: SENNOSIDES-DOCUSATE SODIUM 1 EACH TAB PO SCH (23:50)
[2018-03-22] MEDS: INSULIN ASPART 100 UNIT/ML 1 ML 10 ML VIAL SQ SCH (23:51)
[2018-03-22] MEDS: ceFAZolin IN SWFI 2 GM/20 ML SYRINGE IVP SCH (23:51)
[2018-03-23] MEDS: HYDROcodone/APAP 7.5-325MG 1 EACH TAB PO PRN ×4 (00:48→23:17)
[2018-03-23] MEDS: SODIUM CHLORIDE 0.9% 1,000 ML IV SCH ×2 (04:55→20:28)
[2018-03-23 06:57] LABS: Glucose,Whole Blood 176 mg/dL (75-99)
[2018-03-23] MEDS: ceFAZolin IN SWFI 2 GM/20 ML SYRINGE IVP SCH (07:10)
[2018-03-23] MEDS: LACTATED RINGERS 1,000 ML IV SCH (07:10)
[2018-03-23 07:38] LABS: Glucose,Whole Blood 283 mg/dL (75-99)
[2018-03-23 07:38] LABS: Glucose,Whole Blood 295 mg/dL (75-99)
[2018-03-23] MEDS: INSULIN ASPART 100 UNIT/ML 1 ML 10 ML VIAL SQ SCH ×4 (08:24→22:17)
[2018-03-23] MEDS: ISOSORBIDE MONONITRATE ER 60 MG TAB.ER.24H PO SCH (08:24)
[2018-03-23] MEDS: CLOPIDOGREL 75 MG TAB PO SCH (08:24)
[2018-03-23] MEDS: ASPIRIN 81 MG PO SCH (08:24)
[2018-03-23] MEDS: ATORVASTATIN 40 MG TAB PO SCH (08:24)
[2018-03-23] MEDS: BISOPROLOL 5 MG TAB PO SCH (08:29)
[2018-03-23 08:49] LABS: Basophils % (A) 0 %; Eosinophils % (A) 0 %; HCT 33.3 % (39.0-53.0); HGB 10.9 gm/dL (13.0-17.5); Lymphocytes # (A) 0.4 k/uL (1.0-4.8); Lymphocytes % (A) 4 %; MCH 29.9 pg (25.0-35.0); MCHC 32.7 g/dL (31.0-37.0); MCV 91.5 fL (80.0-100.0); Mean Platelet Volume 7.6; Monocytes # (A) 0.4 k/uL (0-1.0); Monocytes % (A) 4 %; Neutrophils # (A) 8.2 k/uL (1.3-7.7); Neutrophils % (A) 91 %; Platelet Count 181 k/uL (150-450); RBC 3.64 m/uL (4.30-5.90); RDW 13.3 % (11.5-15.5); WBC 9.1 k/uL (3.8-10.6)
--- NOTE | 2018-03-23 09:00 | P.PN ---
Subjective Progress Note Date: 03/23/18 This is a 72-year-old male who is status post left total knee arthroplasty. This is postoperative day #1. Patient is seen and evaluated at bedside with Dr. Raji Choi. Patient states that his pain is well controlled. Patient denies any fever/chills, numbness, weakness, tingling, abdominal pain, shortness of breath or chest pain. Objective - Vital Signs Vital signs: Vital Signs Temp 98.2 F 03/23/18 07:21 Pulse 76 03/23/18 07:21 Resp 19 03/23/18 07:21 BP 182/96 03/23/18 07:21 Pulse Ox 95 03/23/18 07:21 Intake & Output 03/22/18 03/23/18 03/23/18 18:59 06:59 18:59 Intake Total 1201 1770 Output Total 50 25 Balance 1151 1745 Weight 106.594 kg Intake: IV 1201 Intake, IV Titration 690 Amount Sodium Chloride 0.9% 1, 690 000 ml @ 70 mls/hr IV . [id number] [facility] Rx#:[id number] Oral 1080 Output: Urine 25 Estimated Blood Loss 50 Other: Voiding Method Urinal # Voids 1 - Exam Vital signs are stable. Patient is in no acute distress and is alert and oriented 3. Calf is soft and nontender to palpation. Dressing is clean, dry, and intact. Patient has full foot and ankle motion without pain or difficulty. Neurovascular status and circulatory status are intact. - Labs Labs: Abnormal Lab Results - Last 24 Hours (Table) 03/22/18 03/22/18 03/22/18 Range/Units 12:20 15:49 20:47 POC Glucose (mg/dL) 175 H 214 H 283 H (75-99) mg/dL 03/22/18 03/22/18 03/23/18 Range/Units 20:49 23:30 06:54 POC Glucose (mg/dL) 295 H 296 H 176 H (75-99) mg/dL Assessment and Plan Assessment: Coronary artery disease Type 2 diabetes mellitus Hyperlipidemia Hypertension Atrial fibrillation Spondylosis History of prostate cancer (1) Primary osteoarthritis of left knee Current Visit: Yes Status: Acute Code(s): M17.12 - UNILATERAL PRIMARY OSTEOARTHRITIS, LEFT KNEE SNOMED Code(s): 819908147819082 (2) S/P total knee arthroplasty Current Visit: Yes Status: Acute Code(s): Z96.659 - PRESENCE OF UNSPECIFIED ARTIFICIAL KNEE JOINT SNOMED Code(s): 3761300248542 Plan: #1 Continue with routine postoperative care, leave dressing in place for ten days. #2 Anticoagulation with Plavix and aspirin. #3 Physical therapy and CPM today. #4 Appreciate input from medicine. #5 Anticipate discharge home with home care likely tomorrow.
--- NOTE | 2018-03-23 09:45 | P.PN ---
Progress Note - Text 03/23 712am 72-year-old male status post total knee replacement. Patient has an On-Q pump for postop pain control with the solution running at 8 mL an hour with a pain score of 2. Doing very well ambulating well. Plan to be continue On-Q pump infusion.
[2018-03-23 11:41] LABS: Glucose,Whole Blood 203 mg/dL (75-99)
--- NOTE | 2018-03-23 12:40 | P.CONS ---
History of Present Illness - Reason for Consult Consult date: 03/23/18 Medical management - History of Present Illness This is a 71-year-old male patient of Dr. Astudillo with past medical history of coronary artery disease status post cardiac stent, diabetes mellitus type 2, hyperlipidemia, hypertension, osteoarthritis, prostate cancer status post biopsy on chemo/ radiation completed last radiation treatment in February, chronic pain in the cervical spine and lumbar spine status post multiple procedures, recurrent depression secondary to the of his oldest daughter 5 years ago as she had history of muscular dystrophy and from pneumonia. His most recent heart catheterization was in August [address] Valencia that showed significant stenosis of the first obtuse marginal branch with minimal progression, mild to moderate triple vessel disease with patent stent in the right coronary artery. Recommendations at that time were for medical management. Patient has been admitted under the care of Dr. Choi and is status post left knee arthroplasty. Patient has had no postop complications. He states that he is going home tomorrow and his daughter from [place] will be staying with him for a month. Anticoagulation is planned for Plavix and aspirin. Review of Systems All systems: negative Constitutional: Denies anorexia, Denies chills, Denies fatigue, Denies fever, Denies lethargy, Denies malaise, Denies poor appetite, Denies sweats, Denies weakness, Denies weight loss Eyes: denies blurred vision, denies pain Ears, nose, mouth and throat: Denies dental pain, Denies dysphagia, Denies headache, Denies hoarseness, Denies mouth pain, Denies sore throat Cardiovascular: Denies chest pain, Denies decreased exercise tolerance, Denies dyspnea on exertion, Denies edema, Denies high blood pressure, Denies irregular heart beat, Denies leg edema, Denies lightheadedness, Denies palpitations, Denies shortness of breath, Denies syncope Respiratory: Denies cough, Denies cough with sputum, Denies dyspnea, Denies excessive sputum, Denies hemoptysis, Denies home oxygen, Denies wheezing Gastrointestinal: Denies abdominal pain, Denies bloating, Denies constipation, Denies diarrhea, Denies loss of appetite, Denies melena, Denies nausea, Denies vomiting Genitourinary: Denies dysuria, Denies hematuria, Denies urinary frequency, Denies urinary hesitancy, Denies urinary retention Musculoskeletal: Reports low back pain, Denies frequent falls, Denies gait dysfunction, Denies myalgias Musculoskeletal: left: knee pain Integumentary: Reports wounds, Denies pruritus, Denies rash Neurological: Denies aphasia, Denies change in mentation, Denies change in speech, Denies confusion, Denies convulsions, Denies numbness, Denies seizures, Denies syncope, Denies weakness Psychiatric: Denies anxiety, Denies depression Endocrine: Denies fatigue, Denies weight change Past Medical History Past Medical History: Coronary Artery Disease (CAD), Cancer, Chest Pain / Angina , Diabetes Mellitus, GERD/Reflux, Hyperlipidemia, Hypertension, Osteoarthritis ( OA), Prostate Disorder, Skin Disorder Additional Past Medical History / Comment(s): C5 Herniated disc in neck, lower back pain. Hx 4 fx ribs, hx. Prostate Cancer- last radiation tx Mar 25 had total of 44 tx., intermittent itchy rash on arms Last Myocardial Infarction Date:: UNKOWN History of Any Multi-Drug Resistant Organisms: None Reported Past Surgical History: Adenoidectomy, Heart Catheterization, Heart Catheterization With Stent, Orthopedic Surgery, Prostate Surgery, Tonsillectomy Additional Past Surgical History / Comment(s): PROSTATE BX., LT. KNEE ARTHROSCOPY X 2, CERVICAL FUSIONS, COLONOSCOPY, ÁNGEL. CATARTACTS, Pain Procedures , hemorrhoidectomy, right foot fascia surg. Past Anesthesia/Blood Transfusion Reactions: No Reported Reaction Additional Past Anesthesia/Blood Transfusion Reaction / Comm: doesn't like enclosed tight spaces Date of Last Stent Placement:: 04/24/17 Past Psychological History: No Psychological Hx Reported Additional Psychological History / Comment(s): denies Smoking Status: Former smoker Past Alcohol Use History: None Reported Additional Past Alcohol Use History / Comment(s): started smoking age 1982 smoked for 2 yrs. smoked 1/2 ppd he denies any marijuana or illicit drug use. 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 He has been twice currently has a young girl that lives with him on and off. She is likely daughter to him. Past Drug Use History: None Reported - Past Family History Father Additional Family Medical History / Comment(s): Father at age 49 from coronary artery disease. Brother(s) Additional Family Medical History / Comment(s): Patient has one brother with history of smoking and no other major medical problems. Patient does not have any sisters. Daughter(s) Additional Family Medical History / Comment(s): He has one daughter alive in [place] with no major medical problems. Patient has one daughter with history of muscular dystrophy and of pneumonia. Mother Family Medical History: Cancer Additional Family Medical History / Comment(s): Mother at age 81 from uterine cancer with metastatic disease. Son(s) Additional Family Medical History / Comment(s): Patient has one son with no major medical problems. Medications and Allergies Home Medications Medication Instructions Recorded Confirmed Type Atorvastatin Calcium [Lipitor] 40 mg PO QAM 11/01/14 03/22/18 History Bisoprolol Fumarate [Zebeta] 10 mg PO DAILY 11/26/15 03/22/18 History Losartan [Cozaar] 100 mg PO HS@1800 03/21/17 03/22/18 History Aspirin 81 mg PO DAILY 04/25/17 03/22/18 History Clopidogrel [Plavix] 75 mg PO DAILY #30 tablet 04/25/17 03/22/18 Rx sitaGLIPtin PHOS/metFORMIN HCL 1 tab PO DAILY@1200 06/08/17 03/22/18 History [Janumet 50-1,000 mg Tablet] Isosorbide Mononitrate [Isosorbide 60 mg PO DAILY 08/26/17 03/22/18 History Mononitrate ER] Allergies Allergy/AdvReac Type Severity Reaction Status Date / Time No Known Allergies Allergy Verified 03/22/18 15:48 Physical Exam Vitals: Vital Signs Temp Pulse Pulse Pulse Resp BP BP 03/23/18 07:21 98.2 F 76 19 182/96 03/23/18 01:20 16 03/23/18 01:05 98.3 F 78 16 154/81 03/22/18 21:59 16 03/22/18 20:30 69 137/81 03/22/18 20:15 72 142/79 03/22/18 20:00 73 158/92 03/22/18 19:30 81 161/94 03/22/18 19:15 81 165/86 03/22/18 19:00 85 176/99 03/22/18 18:45 78 170/98 03/22/18 18:30 78 161/109 03/22/18 18:15 70 171/100 03/22/18 18:00 75 174/107 03/22/18 17:45 74 178/94 03/22/18 17:30 97.4 F L 74 173/94 03/22/18 17:15 97.9 F 76 18 158/90 03/22/18 16:56 68 16 169/92 03/22/18 16:40 72 16 154/88 03/22/18 16:25 73 16 155/84 03/22/18 16:10 75 16 158/80 03/22/18 15:58 73 16 157/79 03/22/18 15:43 97.5 F L 77 18 167/82 03/22/18 12:45 72 16 117/72 03/22/18 12:22 97.0 F L 77 16 151/88 Pulse Ox 03/23/18 07:21 95 03/23/18 01:20 03/23/18 01:05 94 L 03/22/18 21:59 03/22/18 20:30 03/22/18 20:15 03/22/18 20:00 03/22/18 19:30 03/22/18 19:15 03/22/18 19:00 03/22/18 18:45 03/22/18 18:30 03/22/18 18:15 03/22/18 18:00 03/22/18 17:45 03/22/18 17:30 03/22/18 17:15 98 03/22/18 16:56 96 03/22/18 16:40 97 03/22/18 16:25 98 03/22/18 16:10 97 03/22/18 15:58 96 03/22/18 15:43 96 03/22/18 12:45 98 03/22/18 12:22 96 Intake and Output 03/22/18 03/23/18 03/23/18 22:59 06:59 14:59 Intake Total 950 1020 Output Total 75 Balance 875 1020 Intake: IV 200 Intake, IV Titration 210 480 Amount Sodium Chloride 0.9% 1, 210 480 000 ml @ 70 mls/hr IV . [id number] [facility] Rx#:[id number] Oral 540 540 Output: Urine 25 Estimated Blood Loss 50 Other: Voiding Method Urinal # Voids 1 1 Weight 106.594 kg Gen: This is a 72-year-old male. He is sitting up in bed and appears to be comfortable and in no acute distress. HEENT: Head is atraumatic, normocephalic. Pupils equal, round. Sclerae is anicteric. NECK: Supple. No JVD. No lymphadenopathy. No thyromegaly. LUNGS: Clear to auscultation. No wheezes or rhonchi. No intercostal retractions. HEART: Regular rate and rhythm. No murmur. ABDOMEN: Soft. Bowel sounds are present. No masses. No tenderness. EXTREMITIES: No pedal edema. No calf tenderness. Small dressing in place to the left knee with no breakthrough bleeding or drainage. NEUROLOGICAL: Patient is awake, alert and oriented x3. Cranial nerves 2 through 12 are grossly intact. Results CBC & Chem 7: 03/23/18 07:01 Labs: Abnormal Lab Results - Last 24 Hours (Table) 03/22/18 03/22/18 03/22/18 Range/Units 12:20 15:49 20:47 POC Glucose (mg/dL) 175 H 214 H 283 H (75-99) mg/dL 03/22/18 03/22/18 03/23/18 Range/Units 20:49 23:30 06:54 POC Glucose (mg/dL) 295 H 296 H 176 H (75-99) mg/dL Assessment and Plan Plan: 1. Osteoarthritis status post left knee arthroplasty on the care of Dr. trujillo. Continue current pain management, incentive spirometry to reduce incidence of atelectasis and hospital-acquired pneumonia. Patient is to be on baby aspirin and Plavix for DVT prophylaxis. 2. Diabetes mellitus type 2. Continue Tradjenta, metformin and NovoLog scale. 3. Hyperlipidemia. Continue Lipitor. 4. Hypertension. Continue Losartan 100mg daily, Zebeta 10mg daily. 5. Prostate cancer, stable. 6. Coronary artery disease. Continue aspirin 81 mg, lipitor, plavix. 7. Recurrent depression, stable. Shoulder pain secondary to chronic rotator cuff disease. Impression and plan of care have been directed as dictated by the signing physician. Padma Monsalve nurse practitioner acting as scribe for signing physician.
[2018-03-23] MEDS: metFORMIN 500 MG TAB PO SCH (13:38)
[2018-03-23] MEDS: LINAGLIPTIN 5 MG TABLET PO SCH (13:38)
[2018-03-23 17:59] LABS: Glucose,Whole Blood 141 mg/dL (75-99)
[2018-03-23 18:24] LABS: Hemoglobin A1C 7.3 % (4.0-6.0)
[2018-03-23] MEDS: LOSARTAN 50 MG TAB PO SCH (20:28)
[2018-03-23 20:44] LABS: Glucose,Whole Blood 142 mg/dL (75-99)
[2018-03-23] MEDS: SENNOSIDES-DOCUSATE SODIUM 1 EACH TAB PO SCH (22:21)
[2018-03-24 07:12] LABS: Glucose,Whole Blood 152 mg/dL (75-99)
[2018-03-24] MEDS: INSULIN ASPART 100 UNIT/ML 1 ML 10 ML VIAL SQ SCH ×4 (07:50→20:06)
[2018-03-24] MEDS: SODIUM CHLORIDE 0.9% 1,000 ML IV SCH ×2 (08:09→20:53)
[2018-03-24] MEDS: HYDROcodone/APAP 7.5-325MG 1 EACH TAB PO PRN ×3 (08:20→20:49)
[2018-03-24] MEDS: LINAGLIPTIN 5 MG TABLET PO SCH (08:20)
[2018-03-24] MEDS: ASPIRIN 81 MG PO SCH (08:20)
[2018-03-24] MEDS: CLOPIDOGREL 75 MG TAB PO SCH (08:20)
[2018-03-24] MEDS: ATORVASTATIN 40 MG TAB PO SCH (08:20)
[2018-03-24] MEDS: ISOSORBIDE MONONITRATE ER 60 MG TAB.ER.24H PO SCH (08:20)
[2018-03-24] MEDS: BISOPROLOL 5 MG TAB PO SCH (08:24)
[2018-03-24] MEDS ORDERED: HYDROcodone/APAP 7.5-325MG 1 EACH TAB PO PRN (08:57)
--- NOTE | 2018-03-24 09:02 | P.DS ---
Providers Date of admission: 03/22/18 11:24 Expected date of discharge: 03/24/18 Attending physician: Raji Choi Consults: 03/22/18 14:05 Consult Physician Routine Consulting Provider: German Astudillo Consult Reason/Comments: medical management and anticoagulation Do you want consulting provider notified?: Yes Primary care physician: German Saabher - Discharge Diagnosis(es) (1) Primary osteoarthritis of left knee Current Visit: Yes Status: Acute (2) S/P total knee arthroplasty Current Visit: Yes Status: Acute Hospital Course: This is a 72-year-old male with known history of degenerative arthritis of the left knee. The patient presents for evaluation. After discussion and consideration patient elects to proceed with total knee arthroplasty. The patient is seen preoperatively by Dr. Choi and medically cleared for surgery by their primary care physician. Patient is [facility] on 03/22/2018 for total knee arthroplasty. The procedures performed without complication or sequelae. The patient is doing well postoperatively. Labs and vital signs are stable on day of discharge. On day of discharge patient's knee incision is healing well. There is minimal erythema. There is no drainage noted at this time. There is minimal soft tissue swelling to the knee. Patient has full foot and ankle motion without difficulty or pain. Neurovascular status to the left lower extremity is intact. Patient is discharged home in good condition. Please see med rec for accurate list of home medications. Plan - Discharge Summary Discharge Rx Participant: Yes New Discharge Prescriptions: New HYDROcodone/APAP 7.5-325MG [[place] 7.5-325] 1 - 2 tab PO Q4-6H PRN #84 tab PRN Reason: Pain Sennosides [Senokot] 1 tab PO BID #60 tablet No Action Atorvastatin Calcium [Lipitor] 40 mg PO QAM Bisoprolol Fumarate [Zebeta] 10 mg PO DAILY Losartan [Cozaar] 100 mg PO HS@1800 Aspirin 81 mg PO DAILY Clopidogrel [Plavix] 75 mg PO DAILY #30 tablet sitaGLIPtin PHOS/metFORMIN HCL [Janumet 50-1,000 mg Tablet] 1 tab PO DAILY@ 1200 Isosorbide Mononitrate [Isosorbide Mononitrate ER] 60 mg PO DAILY Discharge Medication List Atorvastatin Calcium [Lipitor] 40 mg PO QAM 11/01/14 [History] Bisoprolol Fumarate [Zebeta] 10 mg PO DAILY 11/26/15 [History] Losartan [Cozaar] 100 mg PO HS@1800 03/21/17 [History] Aspirin 81 mg PO DAILY 04/25/17 [History] Clopidogrel [Plavix] 75 mg PO DAILY #30 tablet 04/25/17 [Rx] sitaGLIPtin PHOS/metFORMIN HCL [Janumet 50-1,000 mg Tablet] 1 tab PO DAILY@1200 06/08/17 [History] Isosorbide Mononitrate [Isosorbide Mononitrate ER] 60 mg PO DAILY 08/26/17 [ History] HYDROcodone/APAP 7.5-325MG [[place] 7.5-325] 1 - 2 tab PO Q4-6H PRN #84 tab [Rx] Sennosides [Senokot] 1 tab PO BID #60 tablet 03/24/18 [Rx] Follow up Appointment(s)/Referral(s): [facility], [NON-STAFF] - As Needed Raji Choi DO [Doctor of Osteopathic Medicine] - 2 Weeks Activity/Diet/Wound Care/Special Instructions: Weightbearing as tolerated with a walker. Leave dressing intact. May be removed by home care nurse in 10 days. May shower with dressing on. Please follow up with [facility] and call with any questions or concerns, . Discharge Disposition: HOME WITH HOME HEALTH SERVICES
--- NOTE | 2018-03-24 09:39 | P.PN ---
Subjective Progress Note Date: 03/24/18 This is a 71-year-old male patient of Dr. Astudillo with past medical history of coronary artery disease status post cardiac stent, diabetes mellitus type 2, hyperlipidemia, hypertension, osteoarthritis, prostate cancer status post biopsy on chemo/ radiation completed last radiation treatment in February, chronic pain in the cervical spine and lumbar spine status post multiple procedures, recurrent depression secondary to the of his oldest daughter 5 years ago as she had history of muscular dystrophy and from pneumonia. His most recent heart catheterization was in August [address] Valencia that showed significant stenosis of the first obtuse marginal branch with minimal progression, mild to moderate triple vessel disease with patent stent in the right coronary artery. Recommendations at that time were for medical management. Patient has been admitted under the care of Dr. hCoi and is status post left knee arthroplasty. Patient has had no postop complications. He states that he is going home tomorrow and his daughter from [place] will be staying with him for a month. Anticoagulation is planned for Plavix and aspirin. 03/24: Patient states he had a bad night and is having severe pain above surgical site and unable to bear weight on his left leg. He is concerned that he will not be able to manage at home even with his daughter staying with him. We have asked case managers to reassess discharge plan. Patient is cleared for discharge from medicine. Review of Systems Constitutional: Denies anorexia, Denies chills, Denies fatigue, Denies fever, Denies lethargy, Denies malaise, Denies poor appetite, Denies sweats, Denies weakness, Denies weight loss Eyes: denies blurred vision, denies pain Ears, nose, mouth and throat: Denies dental pain, Denies dysphagia, Denies headache, Denies hoarseness, Denies mouth pain, Denies sore throat Cardiovascular: Denies chest pain, Denies decreased exercise tolerance, Denies dyspnea on exertion, Denies edema, Denies high blood pressure, Denies irregular heart beat, Denies leg edema, Denies lightheadedness, Denies palpitations, Denies shortness of breath, Denies syncope Respiratory: Denies cough, Denies cough with sputum, Denies dyspnea, Denies excessive sputum, Denies hemoptysis, Denies home oxygen, Denies wheezing Gastrointestinal: Denies abdominal pain, Denies bloating, Denies constipation, Denies diarrhea, Denies loss of appetite, Denies melena, Denies nausea, Denies vomiting Genitourinary: Denies dysuria, Denies hematuria, Denies urinary frequency, Denies urinary hesitancy, Denies urinary retention Musculoskeletal: Reports low back pain, Denies frequent falls, complains of gait dysfunction, Denies myalgias Musculoskeletal: left: knee pain Integumentary: Reports wounds, Denies pruritus, Denies rash Neurological: Denies aphasia, Denies change in mentation, Denies change in speech, Denies confusion, Denies convulsions, Denies numbness, Denies seizures, Denies syncope, Denies weakness Psychiatric: Denies anxiety, Denies depression Endocrine: Denies fatigue, Denies weight change Objective - Vital Signs Vital signs: Vital Signs Temp 97.7 F 03/24/18 07:45 Pulse 88 03/24/18 07:45 Resp 16 03/24/18 07:45 BP 177/98 03/24/18 07:45 Pulse Ox 96 03/24/18 07:45 Intake & Output 03/23/18 03/24/18 03/24/18 18:59 06:59 18:59 Intake Total 1080 Output Total 100 Balance 980 Intake: Oral 1080 Output: Urine 100 Other: # Voids 3 2 - Exam Gen: This is a 72-year-old male. He is in bed and complaining of pain in the left knee. HEENT: Head is atraumatic, normocephalic. Pupils equal, round. Sclerae is anicteric. NECK: Supple. No JVD. No lymphadenopathy. No thyromegaly. LUNGS: Clear to auscultation. No wheezes or rhonchi. No intercostal retractions. HEART: Regular rate and rhythm. No murmur. ABDOMEN: Soft. Bowel sounds are present. No masses. No tenderness. EXTREMITIES: No pedal edema. No calf tenderness. Small dressing in place to the left knee with no breakthrough bleeding or drainage. NEUROLOGICAL: Patient is awake, alert and oriented x3. Cranial nerves 2 through 12 are grossly intact. - Labs CBC & Chem 7: 03/23/18 07:01 Labs: Abnormal Lab Results - Last 24 Hours (Table) 03/23/18 03/23/18 03/23/18 Range/Units 07:01 07:01 11:39 RBC 3.64 L (4.30-5.90) m/uL Hgb 10.9 L (13.0-17.5) gm/dL Hct 33.3 L (39.0-53.0) % Neutrophils # 8.2 H (1.3-7.7) k/uL Lymphocytes # 0.4 L (1.0-4.8) k/uL POC Glucose (mg/dL) 203 H (75-99) mg/dL Hemoglobin A1c 7.3 H (4.0-6.0) % 03/23/18 03/23/18 03/24/18 Range/Units 17:46 20:32 07:00 RBC (4.30-5.90) m/uL Hgb (13.0-17.5) gm/dL Hct (39.0-53.0) % Neutrophils # (1.3-7.7) k/uL Lymphocytes # (1.0-4.8) k/uL POC Glucose (mg/dL) 141 H 142 H 152 H (75-99) mg/dL Hemoglobin A1c (4.0-6.0) % Assessment and Plan Plan: 1. Osteoarthritis status post left knee arthroplasty on the care of Dr. trujillo. Continue current pain management, incentive spirometry to reduce incidence of atelectasis and hospital-acquired pneumonia. Patient is to be on baby aspirin and Plavix for DVT prophylaxis. 2. Diabetes mellitus type 2. Continue Tradjenta, metformin and NovoLog scale. 3. Hyperlipidemia. Continue Lipitor. 4. Hypertension. Continue Losartan 100mg daily, Zebeta 10mg daily. 5. Prostate cancer, stable. 6. Coronary artery disease. Continue aspirin 81 mg, lipitor, plavix. 7. Recurrent depression, stable. 8. Shoulder pain secondary to chronic rotator cuff disease. Discharge plan: most likely home with home care Impression and plan of care have been directed as dictated by the signing physician. Padma Monsalve nurse practitioner acting as scribe for signing physician.
[2018-03-24 12:03] LABS: Glucose,Whole Blood 135 mg/dL (75-99)
[2018-03-24] MEDS: metFORMIN 500 MG TAB PO SCH (13:25)
[2018-03-24 17:29] LABS: Glucose,Whole Blood 158 mg/dL (75-99)
[2018-03-24] MEDS: LOSARTAN 50 MG TAB PO SCH (17:40)
[2018-03-24 20:16] LABS: Glucose,Whole Blood 135 mg/dL (75-99)
[2018-03-24] MEDS: SENNOSIDES-DOCUSATE SODIUM 1 EACH TAB PO SCH (20:49)
[2018-03-25 07:07] LABS: Glucose,Whole Blood 150 mg/dL (75-99)
[2018-03-25 07:13] VITALS: BP 134/86; PULSE 108; RESP 16; TEMP 98.9
[2018-03-25] MEDS: ATORVASTATIN 40 MG TAB PO SCH (08:17)
[2018-03-25] MEDS: CLOPIDOGREL 75 MG TAB PO SCH (08:17)
[2018-03-25] MEDS: ISOSORBIDE MONONITRATE ER 60 MG TAB.ER.24H PO SCH (08:17)
[2018-03-25] MEDS: BISOPROLOL 5 MG TAB PO SCH (08:18)
[2018-03-25] MEDS: ASPIRIN 81 MG PO SCH (08:18)
[2018-03-25] MEDS: INSULIN ASPART 100 UNIT/ML 1 ML 10 ML VIAL SQ SCH (08:18)
[2018-03-25] MEDS: LINAGLIPTIN 5 MG TABLET PO SCH (08:18)
[2018-03-25 08:42] LABS: Basophils % (A) 0 %; Eosinophils % (A) 0 %; HCT 33.4 % (39.0-53.0); HGB 11.2 gm/dL (13.0-17.5); Lymphocytes # (A) 0.5 k/uL (1.0-4.8); Lymphocytes % (A) 9 %; MCHC 33.4 g/dL (31.0-37.0); MCV 92.8 fL (80.0-100.0); Mean Platelet Volume 7.1; Monocytes # (A) 0.4 k/uL (0-1.0); Monocytes % (A) 7 %; Neutrophils # (A) 4.6 k/uL (1.3-7.7); Neutrophils % (A) 82 %; Platelet Count 170 k/uL (150-450); RDW 13.6 % (11.5-15.5); WBC 5.6 k/uL (3.8-10.6)
--- NOTE | 2018-03-25 10:55 | US ---
EXAMINATION TYPE: US venous doppler duplex LE LT DATE OF EXAM: 03/25/2018 10:10 AM COMPARISON: NONE CLINICAL HISTORY: edema, s/p knee arthropasty. Swelling, pain left leg, S/P left total knee 3 days ag o SIDE PERFORMED: Left TECHNIQUE: The lower extremity deep venous system is examined utilizing real time linear array sonog daina with graded compression, doppler sonography and color-flow sonography. VESSELS IMAGED: External Iliac Vein (EIV) Common Femoral Vein Deep Femoral Vein Greater Saphenous Vein * Femoral Vein Popliteal Vein Small Saphenous Vein * Proximal Calf Veins (* superficial vessels) Left Leg: Negative for DVT, pt unable to tolerate compressions distal fem V, probable Ahmadi's cyst l eft pop fossa= 5.7 x 1.1 x 4.0 cm IMPRESSION: 1. No diagnostic evidence of DVT. Could not tolerate compressions deep femoral vein. 2. Popliteal fossa cyst measuring 5.7 cm.
[2018-03-25 11:12] LABS: Glucose,Whole Blood 137 mg/dL (75-99)
--- NOTE | 2018-03-25 14:33 | P.PN ---
Subjective Progress Note Date: 03/25/18 This is a 71-year-old male patient of Dr. Astudillo with past medical history of coronary artery disease status post cardiac stent, diabetes mellitus type 2, hyperlipidemia, hypertension, osteoarthritis, prostate cancer status post biopsy on chemo/ radiation completed last radiation treatment in February, chronic pain in the cervical spine and lumbar spine status post multiple procedures, recurrent depression secondary to the of his oldest daughter 5 years ago as she had history of muscular dystrophy and from pneumonia. His most recent heart catheterization was in August [address] Valencia that showed significant stenosis of the first obtuse marginal branch with minimal progression, mild to moderate triple vessel disease with patent stent in the right coronary artery. Recommendations at that time were for medical management. Patient has been admitted under the care of Dr. Choi and is status post left knee arthroplasty. Patient has had no postop complications. He states that he is going home tomorrow and his daughter from [place] will be staying with him for a month. Anticoagulation is planned for Plavix and aspirin. 03/24: Patient states he had a bad night and is having severe pain above surgical site and unable to bear weight on his left leg. He is concerned that he will not be able to manage at home even with his daughter staying with him. We have asked social work case manager to reassess discharge plan. Patient is cleared for discharge from medicine. 03/25: Patient states his pain is improved. He states he was up frequently during the night to urinate. He is concerned about edema in the left leg. Doppler US will be ordered for the left leg. If this is negative for DVT, he can be discharged home. Daughter is at the bedside and will be helping at home. the patient is cleared for discharge from medicine. Left lower extremity duplex was negative for DVT. Review of Systems Constitutional: Denies anorexia, Denies chills, Denies fatigue, Denies fever, Denies lethargy, Denies malaise, Denies poor appetite, Denies sweats, Denies weakness, Denies weight loss Eyes: denies blurred vision, denies pain Ears, nose, mouth and throat: Denies dental pain, Denies dysphagia, Denies headache, Denies hoarseness, Denies mouth pain, Denies sore throat Cardiovascular: Denies chest pain, Denies decreased exercise tolerance, Denies dyspnea on exertion, Denies edema, Denies high blood pressure, Denies irregular heart beat, Denies leg edema, Denies lightheadedness, Denies palpitations, Denies shortness of breath, Denies syncope Respiratory: Denies cough, Denies cough with sputum, Denies dyspnea, Denies excessive sputum, Denies hemoptysis, Denies home oxygen, Denies wheezing Gastrointestinal: Denies abdominal pain, Denies bloating, Denies constipation, Denies diarrhea, Denies loss of appetite, Denies melena, Denies nausea, Denies vomiting Genitourinary: Denies dysuria, Denies hematuria, Denies urinary frequency, Denies urinary hesitancy, Denies urinary retention Musculoskeletal: Reports low back pain, Denies frequent falls, complains of gait dysfunction, Denies myalgias Musculoskeletal: left: knee pain-improved, edema Integumentary: Reports wounds, Denies pruritus, Denies rash Neurological: Denies aphasia, Denies change in mentation, Denies change in speech, Denies confusion, Denies convulsions, Denies numbness, Denies seizures, Denies syncope, Denies weakness Psychiatric: Denies anxiety, Denies depression Endocrine: Denies fatigue, Denies weight change Objective - Vital Signs Vital signs: Vital Signs Temp 98.9 F 03/25/18 07:08 Pulse 108 H 03/25/18 07:08 Resp 16 03/25/18 07:08 BP 134/86 03/25/18 07:08 Pulse Ox 95 03/25/18 07:08 Intake & Output 03/24/18 03/25/18 03/25/18 18:59 06:59 18:59 Intake Total 500 1080 Output Total 200 Balance 500 880 Intake: Oral 500 1080 Output: Urine 200 Other: Voiding Method Toilet Toilet Urinal Urinal # Voids 3 2 - Exam Gen: This is a 72-year-old male. He is in bed and appears to be comfortable. daughter is at bedside. HEENT: Head is atraumatic, normocephalic. Pupils equal, round. Sclerae is anicteric. NECK: Supple. No JVD. No lymphadenopathy. No thyromegaly. LUNGS: Clear to auscultation. No wheezes or rhonchi. No intercostal retractions. HEART: Regular rate and rhythm. No murmur. ABDOMEN: Soft. Bowel sounds are present. No masses. No tenderness. EXTREMITIES: mild edema to the left knee. No calf tenderness. Small dressing in place to the left knee with no breakthrough bleeding or drainage. NEUROLOGICAL: Patient is awake, alert and oriented x3. Cranial nerves 2 through 12 are grossly intact. - Labs CBC & Chem 7: 03/25/18 08:06 Labs: Abnormal Lab Results - Last 24 Hours (Table) 03/24/18 03/24/18 03/24/18 Range/Units 11:52 17:17 20:04 POC Glucose (mg/dL) 135 H 158 H 135 H (75-99) mg/dL 03/25/18 Range/Units 06:55 POC Glucose (mg/dL) 150 H (75-99) mg/dL Assessment and Plan Plan: 1. Osteoarthritis status post left knee arthroplasty on the care of Dr. trujillo. Continue current pain management, incentive spirometry to reduce incidence of atelectasis and hospital-acquired pneumonia. Patient is to be on baby aspirin and Plavix for DVT prophylaxis. 2. Diabetes mellitus type 2. Continue Tradjenta, metformin and NovoLog scale. 3. Hyperlipidemia. Continue Lipitor. 4. Hypertension. Continue Losartan 100mg daily, Zebeta 10mg daily. 5. Prostate cancer, stable. 6. Coronary artery disease. Continue aspirin 81 mg, lipitor, plavix. 7. Recurrent depression, stable. 8. Shoulder pain secondary to chronic rotator cuff disease. Discharge plan: home with [facility] today Impression and plan of care have been directed as dictated by the signing physician. Padma Monsalve nurse practitioner acting as scribe for signing physician.
== END 2018-03-25 11:59 | disposition home health service (06) | DRG 470 ==
LOC: 2ORMAIN 11:24 → 4SSUR 16:50
PROVIDERS: ADMIT Orthopaedic Surgery; ATTEND Orthopaedic Surgery
PROC: 0SRD069 Replacement of Left Knee Joint with Oxidized Zirconium on Polyethylene Synthetic Substitute, Cemented, Open Approach (ICD-10-PCS; principal; 2018-03-22 13:45)
DX: M17.12 Unilateral primary osteoarthritis, left knee (principal); F33.9 Major depressive disorder, recurrent, unspecified; E11.9 Type 2 diabetes mellitus without complications; E78.5 Hyperlipidemia, unspecified; I10 Essential (primary) hypertension; I25.10 Atherosclerotic heart disease of native coronary artery without angina pectoris; I25.2 Old myocardial infarction; I48.91 Unspecified atrial fibrillation; K21.9 Gastro-esophageal reflux disease without esophagitis; M47.9 Spondylosis, unspecified; M75.100 Unspecified rotator cuff tear or rupture of unspecified shoulder, not specified as traumatic; Z79.02 Long term (current) use of antithrombotics/antiplatelets; Z79.82 Long term (current) use of aspirin; Z82.49 Family history of ischemic heart disease and other diseases of the circulatory system; Z85.46 Personal history of malignant neoplasm of prostate; Z87.891 Personal history of nicotine dependence; Z92.3 Personal history of irradiation; Z95.5 Presence of coronary angioplasty implant and graft; Z79.891 Long term (current) use of opiate analgesic; Z79.899 Other long term (current) drug therapy; Z98.1 Arthrodesis status; Z98.42 Cataract extraction status, left eye; Z98.41 Cataract extraction status, right eye; Z79.84 Long term (current) use of oral hypoglycemic drugs
CPT/HCPCS: 83036; 85025; 88300

== ENCOUNTER → 2018-05-25 | Outpatient (CLI) | payer MEDICARE, BC ==
[2018-05-25 11:40] VITALS: BP 134/75; PULSE 85; RESP 18
--- NOTE | 2018-05-25 11:59 | P.PN ---
Subjective Progress Note Date: 05/25/18 Principal diagnosis: Lumbar spondylosis without myelopathy This is a 72-year-old gentleman with history of coronary artery disease and diabetes. The patient has been on Plavix since his last coronary stent placement that was about one year ago. The patient underwent left total knee replacement 2 months ago. His lower back pain has been getting worse with occasional radiation to the right thigh anteriorly and muscle spasm on the right side. The patient states that he is going to see Dr. Zamudio to continue his prescription for [place] 10 mg which she takes usually 2-3 times a day. He is going to see Dr. Burnham 12 days from now. Today, pt denies new-onset weakness, bowel/bladder incontinence, or any other signs or symptoms of cauda equina syndrome. There are no signs of acute intoxication, and no indications of medication diversion or overuse. In addition to above, 13-point review of systems is also negative for chest pain , shortness of breath, changes in vision, changes in hearing, new onset weakness , abdominal pain, diarrhea, extreme fatigue, malaise, fever, skin changes, homicidal or suicidal ideation, or bowel or bladder incontinence. Vital Signs: Reviewed in EMR Gen: AAOx3, NAD HEENT: PERRLA,hearing grossly normal Pulm: resp unlabored,CTA Heart:S1,S2, No Mur Neck: supple, trachea midline Neuro exam of the lower extremities: Decreased but symmetrical muscle strength to 4 out of 5 bilaterally. Normal right knee reflex and absent left knee reflex and absent bilaterally ankle reflexes. Facet loading test: Positive Tenderness in the paravertebral musculature: Positive on the right side of the lumbar spine Neuro: CN II-XII grossly intact, Imaging: Reviewed in EMR/chart Assessment: Lumbar spondylosis without myelopathy Coronary artery disease Chronic anticoagulants with Plavix Diabetes mellitus Recent left total knee replacement Plan: 1. Explanation: Opioid and psychological risk scores were reviewed. Diagnoses , prognoses, and multiple treatment options including but not limited to physical therapy, interventional therapies, adjuvant medical therapies, narcotic medication therapies, and surgery were discussed with the patient and all questions were answered to the patient's satisfaction. 2. Opioid agreement: Signed with the patient and the patient is warned not to use opioids while driving or before driving and not to combine opioids with benzodiazepines or alcohol. 3. Counseling: The patient was counseled extensively on SMOKING CESSATION, BODY MASS INDEX, EXERCISE. Specifically, the patient was instructed regarding the importance of smoking cessation, obesity, and exercise in the context of both chronic pain and overall health. 4. Procedures: Scheduled for right lumbar medial branch RFA if it is okay with the patient's informatics manager to hold his Plavix for 7 days before the procedure 5. Consultations: None 6. Investigations: None 7. Medications: I'll give the patient a prescription for [place] 10 mg #24 pills that should last him until he sees Dr. Burnham. This will be only 1 time prescription. 8. Disposition: Return to the above-mentioned procedure as soon as possible. 9. Maps were reviewed and were appropriate. PQRS measures: 1-Patient's medications are documented in the chart. 2-Tobacco use is negative, counseling given 3-Patient has had a pneumococcal vaccine. 4-Advanced care planning discussed, patient unable to give 5-Opioid contract not signed with the patient because we don't plan on giving him prescriptions for opioids on a regular basis. 6-Pain positive, follow-up visit or procedure scheduled 7-Patient's blood pressure measured and documented within normal limits. 8-Patient's weight was measured, and body mass index ABOVE the normal limits, and counseling was done. Patient instructed to follow up with PCP. 9-Patient WAS NOT identified as an unhealthy alcohol user. Controlled Substance Measures Is patient prescribed a controlled substance at discharge?: Yes When asked, does pt state using other controlled substances?: No If prescribed controlled substance>3 days was MAPS reviewed?: Yes If Rx opioid, was Start Talking consent form obtained?: Yes If opioid is for acute pain is fill amount 7 days or less?: No Was information provided regarding opioid addiction?: Yes Objective - Vital Signs Vital signs: Vital Signs Temp Pulse 85 05/25/18 11:33 Resp 18 05/25/18 11:33 BP 134/75 05/25/18 11:33 Pulse Ox 97 05/25/18 11:33 Intake & Output 05/24/18 05/25/18 05/25/18 18:59 06:59 18:59 Weight 101.151 kg
== END | disposition home or self-care (01) ==
LOC: PNWHC3 11:20
PROVIDERS: ATTEND Anesthesiology
DX: M47.816 Spondylosis without myelopathy or radiculopathy, lumbar region (principal); I25.10 Atherosclerotic heart disease of native coronary artery without angina pectoris; E11.9 Type 2 diabetes mellitus without complications; Z96.652 Presence of left artificial knee joint; Z95.5 Presence of coronary angioplasty implant and graft; Z79.02 Long term (current) use of antithrombotics/antiplatelets
CPT/HCPCS: 99211

== ENCOUNTER → 2018-05-26 | Outpatient (CLI) | payer MEDICARE, BC | LOC: LABWHC1 08:49 | PROVIDERS: ATTEND Radiology Radiation Oncology | DX: C61 Malignant neoplasm of prostate (principal) | CPT/HCPCS: 36415; 84153 ==

== ENCOUNTER 2018-06-08 08:30 | Day surgery (SDC) | payer MEDICARE, BC ==
[2018-06-07 08:36] VITALS: BMI 29.4
[2018-06-08] MEDS ORDERED: IV FLUID CONTINUATION 1,000 ML IV ONE ×3 (09:11→10:19)
[2018-06-08 09:21] VITALS: TEMP 97
[2018-06-08 09:31] LABS: Glucose,Whole Blood 150 mg/dL (75-99)
--- NOTE | 2018-06-08 09:54 | P.PCN ---
Date of Procedure: 06/08/18 Surgeon: Lc Driver Description of Procedure: Procedure(s) Performed: PREOPERATIVE DIAGNOSIS: Lumbar Spondylosis POSTOPERATIVE DIAGNOSIS: Same PROCEDURES: Radiofrequency ablation right L4 5, L5-S1, sacral ala with fluoroscopic guidance SURGEON: Lc Driver MD. ANESTHESIA: Moderate sedation with intravenous 2 mg of medazepam and 100 mg of fentanyl EBL: Minimal PROCEDURE INDICATION: The patient with low back pain secondary to lumbar facet arthropathy who had more than 50% relief of pain with previous diagnostic lumbar medial branch block with bupivacaine. He has undergone previous radiofrequency ablations and reports good response clinically to these procedures. PROCEDURE DESCRIPTION / TECHNIQUE: The patient was seen and identified in the preoperative area. Risks, benefits, complications, including but not limited to risk of infection ,bleeding , allergic reactions to the medications and incomplete pain relief , and alternatives were discussed with the patient, the patient agreed to proceed with the procedure and signed the consent. IV was started. The operative site was marked. Patient was taken to the OR and time out was completed. The patient was placed in the prone position on the procedure table. The lumber area was prepped and draped in the usual sterile fashion. . Vital signs were closely monitored during the procedure .IV sedation was used during the procedure to decrease patients anxiety. Using AP and then oblique fluoroscopy, the ``eye of the Donavon dog corresponding to the connection between the superior and transverse articular processes of the above-mentioned levels were identified, marked, and localized with 1% lidocaine. Subsequently, a 20 [id number] radiofrequency cannula with a 10-mm active tip was advanced guided by fluoroscopy to each of the ``eyes of the Donavon dog at each site then underwent sensory testing at 50 Hz and 0 to 1 volt and motor testing at 2.5 Hz and 0 to 3 volt with local stimulation, but no radicular symptoms down the legs. Then the sites underwent radiofrequency thermocoagulation at 80 degrees celsius for 90 seconds after injecting 0.5 ml of PF lidocaine 1%. then After the thermocoagulation done , 1 ml of the block solution containing depomedrol 40 mg and 4 ml of marcaine 0.5% was injected in divided doses at each levels after negative aspiration of CSF and blood and with no paresthesias. Sterile dressings were applied. COMPLICATIONS: No acute complications. DISPOSITION / PLANS: The patient was placed in a supine position and transferred to the recovery area in a stable condition for observation and was discharged from the recovery room after meeting discharge criteria. Home discharge instructions given to the patient by the staff. The patient was reexamined prior to discharge.
[2018-06-08 10:24] VITALS: PULSE 72
[2018-06-08 10:39] VITALS: BP 114/69; RESP 18
--- NOTE | 2018-06-08 11:51 | FL ---
EXAMINATION TYPE: FL guided pain mgmt statistic DATE OF EXAM: 06/08/2018 HISTORY: Flouroscopy time 6 seconds of fluoroscopy provided. IMPRESSION: 1. Fluoroscopy time.
== END 2018-06-08 10:16 | disposition home or self-care (01) ==
LOC: ORPAIN 08:30
PROVIDERS: ATTEND Pain Medicine Pain Medicine
DX: M47.816 Spondylosis without myelopathy or radiculopathy, lumbar region (principal); I25.10 Atherosclerotic heart disease of native coronary artery without angina pectoris; E11.9 Type 2 diabetes mellitus without complications; Z95.5 Presence of coronary angioplasty implant and graft; Z79.02 Long term (current) use of antithrombotics/antiplatelets; Z96.652 Presence of left artificial knee joint; Z79.891 Long term (current) use of opiate analgesic; Z79.01 Long term (current) use of anticoagulants
CPT/HCPCS: 64635; 64636; 64640; J2250; J1030; J2001; J3010; 99152

== ENCOUNTER → 2018-06-21 | Outpatient (CLI) | payer MEDICARE, BC ==
[2018-06-21 11:46] VITALS: BP 123/81; PULSE 83; RESP 16
--- NOTE | 2018-06-22 09:33 | P.PAINPG ---
Subjective Progress Note Date: 06/21/18 This is follow-up visit for this patient with a history of severe and chronic low back pain secondary to lumbar degenerative disc disease, lumbar spondylosis with facet arthropathy, We have done an interventional pain procedure radiofrequency ablation of the medial branch on the right side, he continued to have severe low back pain The patient currently on Morris 7.5 cm to 25 when necessary Patient denies any side effect of the medication , patient denies any excessive drowsiness or sleepiness, patient denies any suicidal ideation, Patient reported that the current medication is helping to control the pain and improve the activity of daily livings, Patient denies any motor or sensory deficit, denies any change in the bowel movement or urination, patient denies any fever or night sweat Objective - Vital Signs Vital signs: Vital Signs Temp Pulse 83 06/21/18 11:39 Resp 16 06/21/18 11:39 BP 123/81 06/21/18 11:39 Pulse Ox 100 06/21/18 11:39 Intake & Output 06/21/18 06/22/18 06/22/18 18:59 06:59 18:59 Weight 99.79 kg - Exam Physical Examinations : -Constitutiona : Cooperative , not in acute distress . -HEENT : nech ; supple , no Lymphadenopathy , normal thyroid size . eyes : no ptosis , no icterus, no photophobia . - neurologic : Cranial nerve II to XII intact , no focal neurological deffecit . -psychatric : alert , oriented X 3 , appropriate affect , intact judgment and insight . -Lymphatic : no Lymphadenopathy . - musculoskeltal : Lumber spine moter stegnth lower extremities ,thigh and legs 5/5 Right side , 5/5 Left side deep tendon reflexes : normal Knee Jerk , normal ankle Jerk positive lumber facet Loading Test Range of motion of the lumbar spine Flexion 30 degrees, extension 10 degrees strait leg raising test , positive at degree Fabere test positive RT and positive LT . Sever tenderness over the Sacroiliac joint on the R and L sides Gaenslen test positive bilaterally. Seated flexion test positive bilaterally. Assessment and Plan Plan: Assessment and plan= chronic low back pain secondary to lumbar degenerative disc disease , lumbar spondylosis with lumbar facet arthropathy . Patient continued to have severe low back pain after the radiofrequency ablation of the medial branch lumbar area on the right side We'll order MRI of the lumbar spine to evaluate him that is any new etiology causing the low back pain Time with Patient: Less than 30 PQRS Measure Charge Sheet Measure #130: Documentation of Current Meds in Medical Chart: Patient's medications documented in chart Measure #226: Tobacco Use: Screen & Cessation Intervention: Pt not a tobacco user Measure #111: Pneumonia Vaccination: Pneumococcal vaccine administered or previously received Measure #412: Opioid Treatment Agreement: No documentation of signed opioid treatment agreement Measure #408: Opioid Therapy Follow-up Evaluation: Patient had NO f/u eval minimum every 3 months during opioid therapy Measure #317: Preventitive Care & Scrn High Bld Press & F/U: Normal blood pressure, f/u not required Measure #128: Body Mass Index (BMI) Screening & Follow-up: BMI documented ABOVE normal parameters - f/u documented Measure #131: Pain Assessment & Follow-up: Pain positive & plan documented, Follow-up scheduled Measure #431: Unhealthy Alcohol Use Preventative Care & Scrn: Patient not identified as an unhealthy alcohol user PQRS Narrative: Smoking Status Former smoker Blood Pressure 123/81 Pain Intensity [Lower Back] 6 Scale Used Numeric (1 - 10) Hx Alcohol Use (MH) Yes: last 1983 Home Medications: Ambulatory Orders Atorvastatin Calcium [Lipitor] 40 mg PO QAM 11/01/14 Losartan [Cozaar] 100 mg PO HS@1800 03/21/17 sitaGLIPtin PHOS/metFORMIN HCL [Janumet 50-1,000 mg Tablet] 1 tab PO DAILY@1200 06/08/17 Isosorbide Mononitrate [Isosorbide Mononitrate ER] 60 mg PO DAILY 08/26/17 HYDROcodone/APAP 7.5-325MG [Morris 7.5-325] 1 - 2 tab PO Q4-6H PRN #84 tab Aspirin EC [Ecotrin Low Dose] 81 mg PO DAILY #30 tablet. 03/25/18 Atenolol 50 mg PO DAILY 05/25/18 Controlled Substance Measures - Controlled Substance Measures Is patient prescribed a controlled substance at discharge?: No
== END | disposition home or self-care (01) ==
LOC: PNWHC3 11:29
PROVIDERS: ATTEND Specialist
DX: G89.29 Other chronic pain (principal); M51.36 Other intervertebral disc degeneration, lumbar region; M47.816 Spondylosis without myelopathy or radiculopathy, lumbar region; M46.86 Other specified inflammatory spondylopathies, lumbar region; Z98.890 Other specified postprocedural states; Z79.891 Long term (current) use of opiate analgesic; Z87.891 Personal history of nicotine dependence; Z79.82 Long term (current) use of aspirin
CPT/HCPCS: 99211

== ENCOUNTER → 2018-06-27 | Outpatient (CLI) | payer MEDICARE, BC ==
--- NOTE | 2018-06-27 13:44 | MR ---
EXAMINATION TYPE: MR lumbar spine wo/w con DATE OF EXAM: 06/27/2018 COMPARISON: MRI lumbar spine January 23, 2016. CT lumbar spine April 13, 2017 HISTORY: Back pain TECHNIQUE: Multiplanar, multisequence images of the lumbar spine is performed without and with IV contrast, util izing 10 mL intravenous Gadavist FINDINGS: There is persistent levoconvex scoliosis centered L3 level on survey images. Sagittal image s of the lumbar spine show vertebral body heights and alignment to appear satisfactory. Multilevel di sc desiccation and mild to moderate disc space narrowing is redemonstrated.. The conus medullaris re keegan stable in position ending L1-L2 disc space level without abnormal signal. There is moderate mul tilevel anterior spurring with heterogeneous endplate changes redemonstrated. No suspicious enhanceme nt is seen. Axial images at the T12-L1 level redemonstrate mild broad disc bulge and mild facet degenerative luis ges bilaterally. There is mild effacement anterior thecal sac. Bilateral neural foramina are patent. No significant change from prior. Axial images at the L1-L2 level shows mild/moderate broad disc bulge mildly effacing anterior thecal sac with mild facet degenerative changes bilaterally, there is redemonstration of left foraminal disc protrusion component causing mild to moderate left-sided anterior inferior neural foraminal narrowin g. No significant change from prior. Axial images at L2-L3 level show moderate broad disc bulge effacing anterior thecal sac with mild fac et degenerative changes bilaterally. There is persistent [id number] anterior inferior bilateral neural foraminal narrowing. No significant change from prior. Axial images at L3-L4 level show mild/moderate broad disc bulge and mild/moderate facet degenerative changes and ligament flavum hypertrophy bilaterally. There is advanced right and moderate left-sided neural foraminal narrowing. Encroachment on right L3 nerve is redemonstrated sagittal image 10 more p rominent versus prior study. Axial images at L4-L5 level show moderate facet degenerative changes bilaterally with ligamentum flav um hypertrophy effacing posterior lateral thecal sac. There is mild broad disc bulge mildly effacing anterior thecal sac. There is moderate to advanced left-sided neural foraminal narrowing encroaching on left L4 nerve sagittal image 3 redemonstrated. There is mild right-sided anterior inferior neural foraminal narrowing noted. Axial images at L5-S1 level show moderate facet degenerative changes bilaterally. There is tiny centr al disc protrusion seen. Spinal canal is preserved. Left-sided neural foramina shows mild to moderate inferior narrowing. Right-sided neural foramen is patent. IMPRESSION: Levoconvex scoliosis with multilevel degenerative changes, most prominent findings are r edemonstrated L3-L4 and L4-L5 levels as detailed above. Overall fairly stable findings from 2016 MRI
== END | disposition home or self-care (01) ==
LOC: RADMRIMAIN 08:30
PROVIDERS: ATTEND Specialist
DX: M47.816 Spondylosis without myelopathy or radiculopathy, lumbar region (principal); M41.86 Other forms of scoliosis, lumbar region
CPT/HCPCS: 82565; 72158; 36415; A9585

== ENCOUNTER → 2018-07-04 | Outpatient (CLI) | payer MEDICARE, BC ==
[2018-07-04 13:35] VITALS: BP 129/76; PULSE 81; RESP 16
--- NOTE | 2018-07-04 14:20 | P.PN ---
Progress Note - Text Progress Note Date: 07/04/18 Patient returns for followup for chronic back pain. He status post a left total knee arthroplasty. He is doing well from that surgery. He most recently had a right lumbar radio fluency ablation of L4-L5, L5-S1. He states that pain in his groin on the right has resolved since RFA however he still having significant amounts low back pain. VAS today is a 6 out of 10 in severity. He describes as a sharp, aching, throbbing pain in his right back and his hip on the right. Pain is relieved with rest and worst with movement. His overall function is significantly decreased to the pain in the right back and right leg. In addition to above, 13-point review of systems is also negative for chest pain, shortness of breath, changes in vision, changes in hearing, new onset weakness, abdominal pain, diarrhea, extreme fatigue, malaise, fever, skin changes, homicidal or suicidal ideation, or bowel or bladder incontinence. Vital Signs: Reviewed in EMR Gen: WDWN, AAOx3, NAD HEENT: NCAT, EOMI, hearing grossly normal Pulm: resp unlabored Abd: soft, NT, ND Neck: supple, trachea midline ROM in flexion lumbar spine: reduced ROM in extension lumbar spine: reduced Lumbar paravertebral tenderness: + Facet loading: ++ bilateral R>>L SI joint tenderness: + R > L Shilo's test: + R > L Straight leg raise: neg bilateral Right hip exam: + Pain with hip flexion + Pain with hip flexion and internal rotation ++ Greater trochanteric bursitis on the right. Neuro: CN II-XII grossly intact, muscle strength lower extremities appropriately. Imaging: Reviewed in EMR Assessment: 1. lumbar spondylosis without myelopathy 2. Lumbosacral spondylosis 3. chronic pain syndrome 4. Lumbar radiculopathy 5. Right hip osteoarthritis Plan: 1. Explanation: Opioid and psychological risk scores were reviewed. Diagnoses, prognoses, and multiple treatment options including but not limited to physical therapy, interventional therapies, adjuvant medical therapies, narcotic medication therapies, and surgery were discussed with the patient and all questions were answered to the patient's satisfaction. 2. Opioid agreement: no narcotics prescribed today 3. Counseling: The patient was counseled extensively on SMOKING CESSATION, BODY MASS INDEX, EXERCISE. Specifically, the patient was instructed regarding the importance of smoking cessation, obesity, and exercise in the context of both chronic pain and overall health. 4. Procedures: None for now 5. Consultations: None 6. Investigations: Right hip x-ray 7. Medications: None 8. Disposition: Follow up once right x-ray is complete. He had an MRI repeated 06/27/2018. Showed some significant worsening of facet arthropathy at L3-L4, L4-L5, L5-S1. He also has an L2-L3 bulging disc that's effacing the thecal sac that could be causing some degree of his hip pain. As well as encroachment of L3 nerve root at L3-L4 level. We discussed first getting a hip x-ray on the right to assess for also arthritis that could be causing his painful symptoms. PQRS measures: 1-Patient's medications are documented in the chart. 2-Tobacco use is negative, counseling given 3-Patient has not had a pneumococcal vaccine. 4-Advanced care planning discussed, patient unable to give. 5-Opioid contract signed with the patient. 6-Pain positive, follow-up visit or procedure scheduled 7-Patient's blood pressure measured and documented, and patient will follow up with the primary care due to hypertension. 8-Patient's weight was measured, and body mass index ABOVE the normal limits, and counseling was done. Patient instructed to follow up with PCP. 9-Patient WAS NOT identified as an unhealthy alcohol user.
== END ==
LOC: PNWHC3 13:14
PROVIDERS: ATTEND Anesthesiology
DX: G89.4 Chronic pain syndrome (principal); M47.27 Other spondylosis with radiculopathy, lumbosacral region; M47.26 Other spondylosis with radiculopathy, lumbar region; M16.11 Unilateral primary osteoarthritis, right hip
CPT/HCPCS: 99211

== ENCOUNTER → 2018-07-08 | Outpatient (CLI) | payer MEDICARE, BC ==
--- NOTE | 2018-07-08 13:02 | XR ---
Right hip HISTORY: Osteoarthritis 2 views of the right hip Joint space loss and marginal spurring is present with subchondral sclerosis, possible geode formatio n. Bone mineralization and alignment are maintained. There are vascular calcifications present. IMPRESSION: Osteoarthritis.
== END | disposition home or self-care (01) ==
LOC: RADXRMAIN 11:12
PROVIDERS: ATTEND Anesthesiology
DX: M16.11 Unilateral primary osteoarthritis, right hip (principal)
CPT/HCPCS: 73502

== ENCOUNTER → 2018-07-18 | Outpatient (CLI) | payer MEDICARE, BC ==
[2018-07-18 11:06] VITALS: BP 158/92; PULSE 79; RESP 16
--- NOTE | 2018-07-18 11:24 | P.PN ---
Subjective Progress Note Date: 07/18/18 Mr. Berkowitz is 73-year-old gentleman who presents today for a follow-up. He continues to complain of pain along his right side of his back and right leg. He complains of pain over the buttock and in the groin along the anterior thigh. He reports that his pain is usually worse in the morning is better throughout the day. He has trouble holding heavy objects secondary to pain on the right side. He reports he had the radiofrequency ablation which did help but he had higher hopes for it. He has had a knee replacement on his left side. He continues use a cane for ambulation secondary to his back pain. He uses pain medication as prescribed by his primary care doctor. He did have an x-ray done of his right hip which showed that he had advanced arthritis in the right hip. Objective - Vital Signs Vital signs: Vital Signs Temp Pulse 79 07/18/18 11:00 Resp 16 07/18/18 11:00 BP 158/92 07/18/18 11:00 Pulse Ox Intake & Output 07/17/18 07/18/18 07/18/18 18:59 06:59 18:59 Weight 102.058 kg - Exam General: Awake and alert oriented 3 no distress Respiratory exam: No audible wheezing no accessory muscle usage Cardiovascular exam: regular rate, palpable bilateral pulses, no lower extremity edema Abdominal exam: No distention nontender to palpation Cervical spine: Normal alignment, Spurling's negative, facet loading negative Lumbar spine: Loss of lumbar lordosis, normal alignment, tender to palpation over bilateral paraspinal muscles, facet loading is positive bilaterally. Straight leg raise is negative. Right hip: Pain with internal and external rotation as well as extension of the hip joint. There is limited range of motion with internal rotation of the hip. Sacroiliac joints: Tender to palpation on the right. Nikunj is positive on the right. Neuro exam: Normal sensation in bilateral upper extremities, deep tendon reflexes are 2+ bilateral upper extremities. Normal sensation in bilateral lower extremities. Deep tendon reflexes are 2+ in lower extremities sensory left patellar reflex as patient is status post TKR Psych exam: Cooperative, appropriate mood Assessment and Plan Assessment: #1 lumbar spondylosis without myelopathy #2 right hip osteoarthritis Plan: After discussion with the patient I believe that some of this pain may be coming from his right hip. I did discuss with him potentially doing a right hip joint injection for diagnostic and therapeutic intervention. He is in agreement and is very interested. We will schedule him for a hip joint injection without sedation. If he does have good relief he may need a referral to see a surgeon for potential joint replacement. No pain medications were prescribed on today's visit.
== END ==
LOC: PNWHC3 10:35
PROVIDERS: ATTEND Hospitalist
DX: M47.816 Spondylosis without myelopathy or radiculopathy, lumbar region (principal); M16.11 Unilateral primary osteoarthritis, right hip
CPT/HCPCS: 99211

== ENCOUNTER 2018-07-28 09:23 | Day surgery (SDC) | payer MEDICARE, BC ==
[2018-07-26 10:30] VITALS: BMI 30.3
[~2018-07-28 09:23] MED LIST changes: -ACETAMINOPHEN TAB 500 MG TAB PO ONE; -DEXAMETHASONE SOD PHOSPHATE 10 MG/ML 1 ML VIAL IV ONE; -HYDROmorphone 0.5 MG/0.5 ML SYRINGE IVP PRN; +LACTATED RINGERS 1,000 ML IV SCH; -LIDOCAINE 1% 20 ML VIAL (10MG/ML) FOR IV START INTRADERMA PRN; -MELOXICAM 7.5 MG TAB PO ONE; -ONDANSETRON 4 MG/2 ML VIAL IVP ONE; -ROPIVACAINE 246.25 MG, EPINEPHrine 0.5 MG, KETOROLAC 30 MG, cloNIDine HCL/PF 80 MCG, WA... MISCELLANE ONE; -SCOPOLAMINE 1.5MG/72HR PATCH TRANSDERM ONE; -TRANEXAMIC ACID 1,000 MG in SODIUM CHLORIDE 0.9% 50 ML IVPB ONE; -ceFAZolin IN SWFI 2 GM/20 ML SYRINGE IVP ONE
[2018-07-28 10:39] VITALS: TEMP 97.8
[2018-07-28 10:44] LABS: Glucose,Whole Blood 139 mg/dL (75-99)
--- NOTE | 2018-07-28 11:32 | P.PCN ---
Date of Procedure: 07/28/18 Procedure(s) Performed: Description of Procedure: PREOPERATIVE DIAGNOSIS: Right hip osteoarthritis POSTOPERATIVE DIAGNOSIS: same PROCEDURES: Right intra-articular hip injection with fluoroscopy ANESTHESIA: 1% lidocaine plain 5 ml only EBL: Minimal PROCEDURE INDICATION: The patient with right hip pain secondary to osteoarthritis who has been unresponsive to conservative therapy. No use of blood thinners. PROCEDURE DESCRIPTION / TECHNIQUE: The patient was seen and identified in the preoperative area. Risks, benefits, complications, and alternatives were discussed with the patient (including but not limited to incomplete pain relief, bleeding, infection, nerve damage, and allergies to medications), the patient agreed to proceed with the procedure and signed the consent after all questions were answered. Patient was taken to the OR and time out was completed to verify proper patient, position, laterality of pain, and allergies. Pt was placed in the supine position. Vital signs remained stable throughout the procedure. The lumbosacral area was prepped and draped in the usual sterile fashion. Vital signs were closely monitored during the procedure. Using AP fluoroscopy, the femoral neck was identified, marked, and localized with 1% lidocaine. Subsequently, a 22 gauge 3.5-inch spinal needle was advanced guided by fluoroscopy to the 8 o'clock position on the femoral neck until the needle was felt entering the hip capsule. Needle placement confirmed with the injection of Isovue-200 3 mL injected showing appropriate needle placement,. After negative aspiration for CSF or heme and in the absence of paresthesias, the full 6 ml ml of the block solution containing Depo-Medrol 40 mg and 5 mL of preservative-free 0.5% Ropivacaine was injected. At the end of the procedure, the skin was cleansed and bandages were applied. COMPLICATIONS: No acute complications.
[2018-07-28 11:37] VITALS: RESP 18
[2018-07-28 11:52] VITALS: BP 160/79; PULSE 67
--- NOTE | 2018-07-28 14:55 | FL ---
Fluoroscopy HISTORY: Pain 9 seconds fluoroscopy time supplied to the referring clinician. 1 intraoperative C-arm images docume nt the procedure. See dictated report from anesthesia.
== END 2018-07-28 12:00 | disposition home or self-care (01) ==
LOC: ORPAIN 09:23
PROVIDERS: ATTEND Specialist
DX: M16.11 Unilateral primary osteoarthritis, right hip (principal); M51.36 Other intervertebral disc degeneration, lumbar region; M47.816 Spondylosis without myelopathy or radiculopathy, lumbar region; E11.9 Type 2 diabetes mellitus without complications
CPT/HCPCS: 20610; J1030; Q9966

== ENCOUNTER → 2018-08-16 | Outpatient (CLI) | payer MEDICARE, BC ==
[2018-08-16 12:55] VITALS: BP 130/71; PULSE 70; RESP 16
--- NOTE | 2018-08-16 13:44 | P.PAINPG ---
Subjective Progress Note Date: 08/16/18 This is follow-up visit for this patient with a history of severe and chronic low back pain secondary to lumbar degenerative disc disease, lumbar spondylosis with facet arthropathy, and right hip arthralgia,We have done an interventional pain procedure radiofrequency ablation of the medial branch on the right side, he continued to have severe low back pain, and recently we have done a right hip steroid injection, he reported that he had no benefit from it, he continued to have severe low back pain mainly on the right side, interfere with the quality of life The patient currently on [place] 7.5 cm to 25 when necessary Patient denies any side effect of the medication , patient denies any excessive drowsiness or sleepiness, patient denies any suicidal ideations ,Patient reported that the current medication is helping to control the pain, and improve the activity of daily livings,Patient denies any motor or sensory deficit, denies any change in the bowel movement or urination, patient denies any fever or night sweat Physical Examinations : -Constitutiona : Cooperative , not in acute distress . -HEENT : nech ; supple , no Lymphadenopathy , normal thyroid size . eyes : no ptosis , no icterus, no photophobia . - neurologic : Cranial nerve II to XII intact , no focal neurological deffecit . -psychatric : alert , oriented X 3 , appropriate affect , intact judgment and insight . -Lymphatic : no Lymphadenopathy . - musculoskeltal : Lumber spine moter stegnth lower extremities ,thigh and legs 5/5 Right side , 5/5 Left side deep tendon reflexes : normal Knee Jerk , normal ankle Jerk positive lumber facet Loading Test Range of motion of the lumbar spine Flexion 60 degrees, extension 30 degrees strait leg raising test , positive at 60 degree Fabere test positive RT. Sever tenderness over the Sacroiliac joint on the Right side. Gaenslen test positive on the right side Seated flexion test positive on the right side Flexion ,and external ,and internal rotation of the right hip associated with pain Assessment and plan= chronic low back pain secondary to lumbar degenerative disc disease , lumbar spondylosis with lumbar facet arthropathy , right hip osteo arthritis , right sacroiliitis. Patient had no benefit from right hip steroid injection Patient could benefit from a right sacroiliac steroid injection Objective - Vital Signs Vital signs: Vital Signs Temp Pulse 70 08/16/18 12:46 Resp 16 08/16/18 12:46 BP 130/71 08/16/18 12:46 Pulse Ox 96 08/16/18 12:46 Intake & Output 08/15/18 08/16/18 08/16/18 18:59 06:59 18:59 Weight 104.326 kg PQRS Measure Charge Sheet Measure #130: Documentation of Current Meds in Medical Chart: Patient's medications documented in chart Measure #226: Tobacco Use: Screen & Cessation Intervention: Pt not a tobacco user Measure #111: Pneumonia Vaccination: Pneumococcal vaccine administered or previously received Measure #47: Advance Care Plan: Advance care planning discussed & documented, pt chose/unable to give Measure #412: Opioid Treatment Agreement: No documentation of signed opioid treatment agreement Measure #408: Opioid Therapy Follow-up Evaluation: Patient had NO f/u eval minimum every 3 months during opioid therapy Measure #317: Preventitive Care & Scrn High Bld Press & F/U: Normal blood pressure, f/u not required Measure #128: Body Mass Index (BMI) Screening & Follow-up: BMI documented ABOVE normal parameters - f/u documented Measure #131: Pain Assessment & Follow-up: Pain positive & plan documented, Follow-up scheduled Measure #431: Unhealthy Alcohol Use Preventative Care & Scrn: Patient not identified as an unhealthy alcohol user PQRS Narrative: Smoking Status Former smoker Do You Want the Pneumonia Vaccine Up to Date Vaccine AT THIS TIME? Blood Pressure 130/71 Pain Intensity [Bilateral 6 Lower Back] Scale Used Numeric (1 - 10) Hx Alcohol Use (MH) Yes: last 1983 Home Medications: Ambulatory Orders Atorvastatin Calcium [Lipitor] 40 mg PO QAM 11/01/14 Losartan [Cozaar] 100 mg PO HS@1800 03/21/17 sitaGLIPtin PHOS/metFORMIN HCL [Janumet 50-1,000 mg Tablet] 1 tab PO DAILY@1200 06/08/17 Isosorbide Mononitrate [Isosorbide Mononitrate ER] 60 mg PO DAILY 08/26/17 HYDROcodone/APAP 7.5-325MG [[place] 7.5-325] 1 - 2 tab PO Q4-6H PRN #84 tab 03/24/18 Aspirin EC [Ecotrin Low Dose] 81 mg PO DAILY #30 tablet. 03/25/18 Atenolol 50 mg PO DAILY 05/25/18 Controlled Substance Measures - Controlled Substance Measures Is patient prescribed a controlled substance at discharge?: No
== END ==
LOC: PNWHC3 11:54
PROVIDERS: ATTEND Specialist
DX: G89.29 Other chronic pain (principal); M51.36 Other intervertebral disc degeneration, lumbar region; M47.816 Spondylosis without myelopathy or radiculopathy, lumbar region; M46.96 Unspecified inflammatory spondylopathy, lumbar region; M16.11 Unilateral primary osteoarthritis, right hip; M46.1 Sacroiliitis, not elsewhere classified; Z87.891 Personal history of nicotine dependence; Z79.899 Other long term (current) drug therapy; Z79.891 Long term (current) use of opiate analgesic; Z79.82 Long term (current) use of aspirin
CPT/HCPCS: 99211

== ENCOUNTER → 2018-08-29 | Day surgery (SDC) | payer MEDICARE, BC ==
[2018-08-25 10:45] VITALS: BMI 30.3
[2018-08-29 07:48] VITALS: TEMP 97.2
[2018-08-29 07:55] LABS: Glucose,Whole Blood 117 mg/dL (75-99)
--- NOTE | 2018-08-29 07:58 | P.PCN ---
Date of Procedure: 08/29/18 Description of Procedure: PREOPERATIVE DIAGNOSIS: 1. Right Sacroiliac Joint dysfunction 2. Lumbosacral spondylosis POSTOPERATIVE DIAGNOSIS:. 1. Right Sacroiliac Joint dysfunction 2. Lumbosacral spondylosis PROCEDURES: Right Sacroiliac Joint Injection Surgeon: Christopher Vela MD Anesthesia: Local The patient was seen and examined in the [facility]. Procedure risks and benefits were fully reviewed with the patient. Informed consent for procedure was obtained. The patient was taken into the office fluoroscopy procedure room and placed prone on the table. A pillow was placed under the abdomen to reduce lumbar lordosis. Vital signs were closely monitored during the procedure. AP and oblique views of the sacral spine and pelvis were obtained under fluoroscopy and entry site(s) over the sacroiliac joint(s) were marked. Skin was prepped with ChloraPrep and draped in usual sterile manner. Sterile technique was observed throughout the procedure. Fluoroscopy was used to visualize the right S.I. joint(s). 2 ML's of 1% lidocaine was used to infiltrate the skin. A 25 gauge spinal needle was introduced into the inferior one-third of the sacroiliac joint under fluoroscopic guidance. Omnipaque 0.5ml was instilled in the joint. Dye was seen free flowing into the joint space. A mixture of 40 mg Kenalog in 2 ML 2% lidocaine was injected after negative aspiration. The needle was then withdrawn intact. The patient tolerated the procedure well. The patient was placed in supine position and transferred to the recovery room for observation and remained in stable condition until discharged home. Home discharge instructions were given to the patient by the staff. The patient will schedule a follow up as directed.
[2018-08-29 08:15] VITALS: BP 161/90; PULSE 71; RESP 18
--- NOTE | 2018-08-29 09:16 | FL ---
EXAMINATION TYPE: FL guided pain mgmt statistic DATE OF EXAM: 08/29/2018 HISTORY: Flouroscopy time 4 seconds of fluoroscopy provided. IMPRESSION: 1. Fluoroscopy time.
== END ==
LOC: ORPAIN 07:31
PROVIDERS: ATTEND Anesthesiology
DX: M53.3 Sacrococcygeal disorders, not elsewhere classified (principal); M47.9 Spondylosis, unspecified
CPT/HCPCS: J3301; Q9966; G0260; 27096

== ENCOUNTER → 2018-10-03 | Outpatient (CLI) | payer MEDICARE, BC ==
[2018-10-03 12:02] VITALS: BP 99/65; PULSE 89; RESP 16
--- NOTE | 2018-10-03 12:23 | P.PN ---
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 Most of the patient's pain is on the right side of his spine and mostly at the lumbar sacral junction point and I well. The patient failed to respond to multiple medial branch RFA previously and to physical therapy. He had a few hours of pain relief after the last sacroiliac joint injection on the right side however his pain got worse 3 days after the injection. He does have history of cardiac stent placement, but he is not on any anticoagulants anymore. Today, pt denies new-onset weakness, bowel/bladder incontinence, or any other signs or symptoms of cauda equina syndrome. There are no signs of acute intoxication, and no indications of medication diversion or overuse. In addition to above, 13-point review of systems is also negative for chest pain, shortness of breath, changes in vision, changes in hearing, new onset weakness, abdominal pain, diarrhea, extreme fatigue, malaise, fever, skin changes, homicidal or suicidal ideation, or bowel or bladder incontinence. Vital Signs: Reviewed in EMR Gen: AAOx3, NAD HEENT: PERRLA,hearing grossly normal Pulm: resp unlabored Heart: Regular Neck: supple, trachea midline Neuro exam of the lower extremities: Straight leg raising test: Negative Range of motion of the lumbar spine: Decreased Tenderness in the paravertebral musculature: Positive on the lumbar paravertebral area on the right side of the spine and also around the right sacroiliac joint. Neuro: CN II-XII grossly intact, Imaging: Reviewed in EMR/chart Assessment: Lumbar spondylosis without myelopathy Right sacroiliitis Lumbar DDD Plan: 1. Explanation: Opioid and psychological risk scores were reviewed. Diagnoses, prognoses, and multiple treatment options including but not limited to physical therapy, interventional therapies, adjuvant medical therapies, narcotic medication therapies, and surgery were discussed with the patient and all questions were answered to the patient's satisfaction. 2. Opioid agreement: Signed with the patient and the patient is warned not to use opioids while driving or before driving and not to combine opioids with benzodiazepines or alcohol. 3. Counseling: The patient was counseled extensively on SMOKING CESSATION, BODY MASS INDEX, EXERCISE. Specifically, the patient was instructed regarding the importance of smoking cessation, obesity, and exercise in the context of both chronic pain and overall health. 4. Procedures: Scheduled for a second right sacroiliac joint steroid injection. If it does help the pain clinic for only a few hours after the procedure then we can plan on doing RFA on the joint lateral on. 5. Consultations: None 6. Investigations: None 7. Medications: The patient takes [place] from Dr. Zamudio 8. Disposition: Return to the above-mentioned procedure 9. Maps were reviewed and were appropriate. PQRS measures: 1-Patient's medications are documented in the chart. 2-Tobacco use is negative, counseling given 3-Patient has had a pneumococcal vaccine. 4-Advanced care planning discussed, patient unable to give 5-Opioid contract signed with the patient. 6-Pain positive, follow-up visit or procedure scheduled 7-Patient's blood pressure measured and documented above/ normal limits. The patient will follow up with his primary care physician. 8-Patient's weight was measured, and body mass index ABOVE the normal limits, and counseling was done. Patient instructed to follow up with PCP. 9-Patient WAS NOT identified as an unhealthy alcohol user. Objective - Vital Signs Vital signs: Vital Signs Temp Pulse 89 10/03/18 11:53 Resp 16 10/03/18 11:53 BP 99/65 10/03/18 11:53 Pulse Ox 95 10/03/18 11:53 Intake & Output 10/02/18 10/03/18 10/03/18 18:59 06:59 18:59 Weight 104.326 kg
== END | disposition home or self-care (01) ==
LOC: PNWHC3 11:32
PROVIDERS: ATTEND Anesthesiology
DX: M51.36 Other intervertebral disc degeneration, lumbar region (principal); M47.816 Spondylosis without myelopathy or radiculopathy, lumbar region; M46.1 Sacroiliitis, not elsewhere classified
CPT/HCPCS: 99211

== ENCOUNTER → 2018-10-25 | Outpatient (CLI) | payer MEDICARE, BC ==
[2018-10-25 13:24] VITALS: BP 116/68; PULSE 98; RESP 18
--- NOTE | 2018-10-26 09:05 | P.PAINPG ---
Subjective Progress Note Date: 10/25/18 This is follow-up visit for this 73 years old patient with a history of severe and chronic low back pain secondary to lumbar degenerative disc disease, lumbar spondylosis facet arthropathy, and sacroiliitis , recently we have done a right sacroiliac joint steroid injections 2 , he gets excellent pain relief The patient currently on [place] 7.5/325 twice a day, his getting prescription refills from his primary care Patient denies any side effect of the medication , patient denies any excessive drowsiness or sleepiness, patient denies any suicidal ideation, Patient reported that the current medication is helping to control the pain and improve the activity of daily livings, Patient denies any motor or sensory deficit, denies any change in the bowel movement or urination, patient denies any fever or night sweats. Physical Examinations : -Constitutiona : Cooperative , not in acute distress . -HEENT : nech : supple , no Lymphadenopathy , normal thyroid size . eyes : no ptosis , no icterus, no photophobia . - neurologic : Cranial nerve II to XII intact , no focal neurological deffecit . -psychatric : alert , oriented X 3 , appropriate affect , intact judgment and insight . -Lymphatic : no Lymphadenopathy . - musculoskeltal : Lumber spine moter stegnth lower extremities ,thigh and legs 5/5 Right side , 5/5 Left side deep tendon reflexes : normal Knee Jerk , normal ankle Jerk positive lumber facet Loading Test Range of motion of the lumbar spine Flexion 30 degrees, extension 10 degrees strait leg raising test , positive at 45 degree Fabere test positive RT and positive LT . Sever tenderness over the Sacroiliac joint on the R and L sides Gaenslen test positive bilaterally. Seated flexion test positive bilaterally.. Assessment and plan= chronic low back pain secondary to lumbar degenerative disc disease , lumbar spondylosis with lumbar facet arthropathy . Sacroiliitis Status post right side sacroiliac joint steroid injection patient gets excellent pain relief Patient was making good candidate to have right side sacroiliac joint radiofrequency ablation (radiofrequency ablation on the L5-S1 dorsal Ramus, and RFA of the lateral branches of S1- S2 ,S3 Objective - Vital Signs Vital signs: Vital Signs Temp Pulse 98 10/25/18 13:15 Resp 18 10/25/18 13:15 BP 116/68 10/25/18 13:15 Pulse Ox 95 10/25/18 13:15 Intake & Output 10/25/18 10/26/18 10/26/18 18:59 06:59 18:59 Weight 106.594 kg PQRS Measure Charge Sheet Measure #130: Documentation of Current Meds in Medical Chart: Patient's medications documented in chart Measure #226: Tobacco Use: Screen & Cessation Intervention: Pt not a tobacco user Measure #111: Pneumonia Vaccination: Pneumococcal vaccine administered or previously received Measure #47: Advance Care Plan: Advance care planning discussed & documented, pt chose/unable to give Measure #412: Opioid Treatment Agreement: No documentation of signed opioid treatment agreement Measure #408: Opioid Therapy Follow-up Evaluation: Patient had NO f/u eval minimum every 3 months during opioid therapy Measure #317: Preventitive Care & Scrn High Bld Press & F/U: Normal blood pressure, f/u not required Measure #128: Body Mass Index (BMI) Screening & Follow-up: BMI documented ABOVE normal parameters - f/u documented Measure #131: Pain Assessment & Follow-up: Pain positive & plan documented, Follow-up scheduled Measure #431: Unhealthy Alcohol Use Preventative Care & Scrn: Patient not identified as an unhealthy alcohol user PQRS Narrative: Smoking Status Former smoker Blood Pressure 116/68 Pain Intensity [Right Buttock] 6 Scale Used Numeric (1 - 10) Hx Alcohol Use (MH) Yes: last 1983 Home Medications: Ambulatory Orders Atorvastatin Calcium [Lipitor] 40 mg PO QAM 11/01/14 Losartan [Cozaar] 100 mg PO HS@1800 03/21/17 sitaGLIPtin PHOS/metFORMIN HCL [Janumet 50-1,000 mg Tablet] 1 tab PO DAILY@1200 06/08/17 Isosorbide Mononitrate [Isosorbide Mononitrate ER] 60 mg PO DAILY 08/26/17 HYDROcodone/APAP 7.5-325MG [[place] 7.5-325] 1 - 2 tab PO Q4-6H PRN #84 tab 03/24/18 Aspirin EC [Ecotrin Low Dose] 81 mg PO DAILY #30 tablet. 03/25/18 Atenolol 50 mg PO DAILY 05/25/18 Controlled Substance Measures - Controlled Substance Measures Is patient prescribed a controlled substance at discharge?: No
== END | disposition home or self-care (01) ==
LOC: PNWHC3 13:06
PROVIDERS: ATTEND Specialist
DX: G89.29 Other chronic pain (principal); M51.36 Other intervertebral disc degeneration, lumbar region; M47.816 Spondylosis without myelopathy or radiculopathy, lumbar region; M46.96 Unspecified inflammatory spondylopathy, lumbar region; M46.1 Sacroiliitis, not elsewhere classified; Z79.891 Long term (current) use of opiate analgesic; Z79.82 Long term (current) use of aspirin; Z87.891 Personal history of nicotine dependence; Z79.899 Other long term (current) drug therapy
CPT/HCPCS: 99211

== ENCOUNTER → 2018-11-18 | Outpatient (CLI) | payer MEDICARE, BC | END | disposition home or self-care (01) | LOC: LABWHC1 10:37 | PROVIDERS: ATTEND Radiology Radiation Oncology | DX: C61 Malignant neoplasm of prostate (principal); Z92.3 Personal history of irradiation; Z87.891 Personal history of nicotine dependence | CPT/HCPCS: 36415; 84153 ==

== ENCOUNTER 2018-11-29 07:14 | Day surgery (SDC) | payer MEDICARE, BC ==
[2018-11-23 15:44] VITALS: BMI 30.3
[2018-11-29 07:34] VITALS: TEMP 97.8
[2018-11-29] MEDS ORDERED: LACTATED RINGERS 1,000 ML IV ONE ×2 (07:34→09:35)
[2018-11-29] MEDS ORDERED: LIDOCAINE 1% 20 ML VIAL (10MG/ML) FOR IV START INTRADERMA ONE (07:35)
[2018-11-29 07:41] LABS: Glucose,Whole Blood 152 mg/dL (75-99)
[2018-11-29 09:38] VITALS: RESP 16
[2018-11-29 09:53] VITALS: BP 124/68; PULSE 68
--- NOTE | 2018-11-29 09:56 | FL ---
Fluoroscopy HISTORY: Pain 21 seconds fluoroscopy time supplied to the referring clinician. 7 intraoperative C-arm images docum ent the procedure. See dictated report from anesthesia.
--- NOTE | 2018-11-30 09:41 | P.PCN ---
Date of Procedure: 11/30/18 Procedure(s) Performed: PREOPERATIVE DIAGNOSIS: 1-Lumbosacral spondylosis with facet arthropathy without myelopathy. 2- sacroiliit. post operative Diagnosis: . 1-Lumbosacral spondylosis with facet arthropathy without myelopathy. 2- sacroiliit. PROCEDURES: 1- Right radiofrequency thermocoagulation/ablation of the L5 dorsal ramus. 2- Right multi-site radiofrequency thermocoagulation/ablation of the S1, S2, and S3 lateral branchs. The procedure was performed using fluoroscopic guidance during needle placement to assure proper position and maximize safety (fluoroscopy images available in radiology department) . ANESTHESIA: LOCAL ANESTHESIA = moderate sedation with intravenous versed and Fentanyle. EBL: NONE INDICATION/MEDICAL NECESSITY: History of low back pain secondary to right sacroiliitis and lumbosacral arthropathy unresponsive to more conservative treatments. The patient reported more than 50% relief of pain symptoms following 2 previous diagnostic blocks with Bupivacaine. PROCEDURE DESCRIPTION: The patient was seen and identified in the preoperative area. Risks, benefits, complications, and alternatives were discussed with the patient. The patient agr eed to proceed with the procedure and signed the consent. Vital signs were checked before and after the procedure and they remained stable. Patient ambulated to the procedure room and time out was completed. The patient was placed in the prone position on the procedure table and a pillow was placed under the abdomen to reduce lumbar lordosis. The lumbosacral area was prepped and draped in the usual sterile fashion. Critical pause was taken. L5 Dorsal Ramus RF: Using right oblique fluoroscopy, the junction of the transverse process and the superior articular process of the right S1 vertebra, which correspond to the fluoroscopic image of the "eye of the [place] dog" was identified. Subsequently, a 10-cm 20 -gauge radiofrequency cannula with a 10-mm active tip was advanced under fluoroscopic guidance until contact was made with periosteum. At this level, the Sensory testing of the L5 dorsal ramus was performed at 50 Hz and 0 to 1 volt with production of concordant pain starting at 0.5 volt. Motor stimulation was done at 2.5 Hz with stimulation of mulitifidus muscle contration . No radicular symptoms or paresthesias were produced during the testing. Subsequently, the L5 dorsal ramus was subjected to a radiofrequency ablation at 80 degree celsius for 90 seconds . after 0.5% Bupivacaine 1 ml injected at each level after negative aspirations . S1, S3, and S3 Lateral Branch RF: The lateral margins of the Right S1, S2, and S3 foramina were identified using AP fluoroscopy. Under fluoroscopic guidance, total of six 10-cm 20 -gauge ra diofrequency cannula with a 10-mm active tip were inserted at the medial edge of the right sacroiliac joint, starting from the inferior border of the joint going superiorly total of 6 needle was placed. then , the sensory testing was performed at 50 Hz and 0 to 1 volt at the three levels with production of concordant pain starting at 0.5 volt. Motor stimulation was done at 2.5 Hz. No radicular symptoms or paresthesias were produced during the testing. Subsequently,the lateral branch was subjected to a radiofrequency ablation at a mode of 90 seconds at 80 degrees Celsius at the all levels a The needle was withdrawn intact after each injection. Before the needles removed mixture of ropivacaine 0.5% 6 ML and 40 mg of Depomedrol mixed together and ML of a mixture injected at each level and before the needles removed COMPLICATIONS: The patient tolerated the procedure well without any acute complications. DISPOSTION/PLAN: The patient ambulated to the recovery area after the procedure in a stable condition for observation. Patient was reexamined prior to discharge. Patient was observed for 30 minutes in the recovery area and was discharged home, accompanied by an adult, after meeting discharged criteria. Discharge instructions were give to the patient by the staff. Patient was specifically instructed not to drive today and to rest for the rest of the day. The patient will schedule a follow up visit in the clinic in weeks or earlier if needed.
== END 2018-11-29 10:03 | disposition home or self-care (01) ==
LOC: ORPAIN 07:14
PROVIDERS: ATTEND Specialist
DX: M47.817 Spondylosis without myelopathy or radiculopathy, lumbosacral region (principal); M46.1 Sacroiliitis, not elsewhere classified; I10 Essential (primary) hypertension
CPT/HCPCS: 64640 ×3; 64635; J2250; J1030; J3010; 99152; 99153

== ENCOUNTER → 2018-12-29 | Outpatient (CLI) | payer MEDICARE, BC ==
[2018-12-29 12:15] VITALS: BP 126/78; PULSE 93; RESP 16
--- NOTE | 2018-12-29 12:43 | P.PAINPG ---
Subjective Progress Note Date: 12/29/18 This is follow-up visit for this 73 years old patient with a history of severe and chronic low back pain secondary to lumbar degenerative disc disease, lumbar spondylosis facet arthropathy, and sacroiliitis , a few weeks ago we did RFA of the right sacroiliac joint, patient reported that he get 2 weeks of excellent pain relief then the pain came back The patient currently on [place] 10/325 twice a day, his getting prescription refills from his primary care Patient denies any side effect of the medication , patient denies any excessive drowsiness or sleepiness, patient denies any suicidal ideation, Patient reported that the current medication is helping to control the pain and improve the activity of daily livings, Patient denies any motor or sensory deficit, denies any change in the bowel movement or urination, patient denies any fever or night sweats. Objective - Exam Physical Examinations : -Constitutiona : Cooperative , not in acute distress . -HEENT : nech : supple , no Lymphadenopathy , normal thyroid size . eyes : no ptosis , no icterus, no photophobia . - musculoskeltal : Lumber spine moter stegnth lower extremities ,thigh and legs 5/5 Right side , 5/5 Left side deep tendon reflexes : normal Knee Jerk , normal ankle Jerk positive lumber facet Loading Test Range of motion of the lumbar spine Flexion 30 degrees, extension tenderness over the Sacroiliac joint on the Right side Gaenslen test positive right Seated flexion test positive right . Assessment and Plan Plan: Assessment and plan= lumbar spondylosis with lumbar facet arthropathy without myelopathy, right sacroiliitis Patient continues to have right side and right low back pain after RFA of the right sacroiliac joint Patient currently on [place] 10/325 every 6 hours when necessary. Discussed with the patient the option of referring to orthopedic spine surgeon for evaluation for possible fusion of the right sacroiliac joint Patient preferred not to have surgical inter ventions. Patient will follow up with the pain clinic when necessary PQRS Measure Charge Sheet Measure #130: Documentation of Current Meds in Medical Chart: Patient's medications documented in chart Measure #226: Tobacco Use: Screen & Cessation Intervention: Pt not a tobacco user Measure #111: Pneumonia Vaccination: Pneumococcal vaccine administered or previously received Measure #47: Advance Care Plan: Advance care planning discussed & documented, pt chose/unable to give Measure #412: Opioid Treatment Agreement: No documentation of signed opioid treatment agreement Measure #408: Opioid Therapy Follow-up Evaluation: Patient had NO f/u eval minimum every 3 months during opioid therapy Measure #317: Preventitive Care & Scrn High Bld Press & F/U: Normal blood pressure, f/u not required Measure #128: Body Mass Index (BMI) Screening & Follow-up: BMI documented ABOVE normal parameters - f/u documented Measure #131: Pain Assessment & Follow-up: Pain positive & plan documented, Follow-up PRN Measure #431: Unhealthy Alcohol Use Preventative Care & Scrn: Patient not identified as an unhealthy alcohol user PQRS Narrative: Smoking Status Former smoker Hx Alcohol Use (MH) Yes: last 1983 Home Medications: Ambulatory Orders Atorvastatin Calcium [Lipitor] 40 mg PO QAM 11/01/14 sitaGLIPtin PHOS/metFORMIN HCL [Janumet 50-1,000 mg Tablet] 1 tab PO DAILY@1200 06/08/17 Isosorbide Mononitrate [Isosorbide Mononitrate ER] 60 mg PO DAILY 08/26/17 Aspirin EC [Ecotrin Low Dose] 81 mg PO DAILY #30 tablet. 03/25/18 Atenolol 50 mg PO DAILY 05/25/18 Hydrocodone/Acetaminophen [Hydrocodone-Acetamin 10-300 mg] 1 tab PO Q6HR PRN 11/23/18 Controlled Substance Measures - Controlled Substance Measures Is patient prescribed a controlled substance at discharge?: No
== END | disposition home or self-care (01) ==
LOC: PNWHC3 11:36
PROVIDERS: ATTEND Specialist
DX: G89.29 Other chronic pain (principal); M47.816 Spondylosis without myelopathy or radiculopathy, lumbar region; M46.96 Unspecified inflammatory spondylopathy, lumbar region; M46.1 Sacroiliitis, not elsewhere classified; Z87.891 Personal history of nicotine dependence; Z98.890 Other specified postprocedural states; Z79.82 Long term (current) use of aspirin; Z79.899 Other long term (current) drug therapy
CPT/HCPCS: 99211

== ENCOUNTER → 2019-01-03 | Outpatient (CLI) | payer MEDICARE, BC ==
--- NOTE | 2019-01-03 08:03 | US ---
EXAMINATION TYPE: US liver DATE OF EXAM: 01/03/2019 COMPARISON: CT abdomen and pelvis November 27, 2016 CLINICAL HISTORY: R94.5 Abnormal results of liver function studies. Abnormal liver function test. Exa m limitations due to body habitus. EXAM MEASUREMENTS: Liver Length: 18.3 cm Gallbladder Wall: Unable to visualize due to body habitus. CBD: .5 cm Right Kidney: 10.9 x 5.2 x 4.2 cm Pancreas: Obscured by bowel gas Liver: Limited Gallbladder: Not visualized Evidence for sonographic Henderson's sign: No CBD: Limited Right Kidney: Cystic area upper pole 1.7 x 1.8 x 1.7cm. Pancreas suboptimally seen on images saved. Visualized portions of liver is heterogeneously hyperecho ic. Evaluation for focal masses is suboptimal due to the heterogeneity. Some cortical thinning right kidney is seen. No gross hydronephrosis. Gallbladder not well seen on images saved. Common bile duct is not dilated. Small gallbladder remnant felt present on CT. IMPRESSION: Suboptimal study with fatty infiltration of liver redemonstrated.
== END | disposition home or self-care (01) ==
LOC: RADUSWWP 07:26
PROVIDERS: ATTEND Internal Medicine
DX: K76.0 Fatty (change of) liver, not elsewhere classified (principal)
CPT/HCPCS: 76705

== ENCOUNTER → 2019-03-03 | Outpatient (CLI) | payer MEDICARE, BC ==
[2019-03-03 16:04] LABS: African American GFR (CKD) 76.2 (60.0-200.0); Albumin 4.6 g/dL (3.80-4.90); Albumin/Globulin Ratio 2.56 (1.60-3.17); Anion Gap 8.6 mmol/L (4.00-12.00); BUN/Creat Ratio 24.55 Ratio (12.00-20.00); Calcium 9.5 mg/dL (8.7-10.3); Carbon Dioxide 29.4 mmol/L (21.6-31.8); Chol/HDL Ratio 3.88; Globulin 1.8 g/dL (1.6-3.3); LDL Cholesterol,Calculated 43.4 mg/dL (0.0-131.0); Total Bilirubin 1.1 mg/dL (0.3-1.2); Total Protein 6.4 g/dL (6.2-8.2); VLDL Calculation 74.6 mg/dL (5.00-40.00)
== END | disposition home or self-care (01) ==
LOC: LABWHC1 09:06
PROVIDERS: ATTEND Nurse Practitioner Adult Health
DX: I10 Essential (primary) hypertension (principal); E78.2 Mixed hyperlipidemia
CPT/HCPCS: 36415; 80053; 80061

== ENCOUNTER → 2019-05-25 | Outpatient (CLI) | payer MEDICARE, BC | END | disposition home or self-care (01) | LOC: LABWHC1 08:13 | PROVIDERS: ATTEND Radiology Radiation Oncology | DX: C61 Malignant neoplasm of prostate (principal); Z87.891 Personal history of nicotine dependence; Z92.3 Personal history of irradiation | CPT/HCPCS: 36415; 84153 ==

== ENCOUNTER → 2019-06-09 | Outpatient (CLI) | payer MEDICARE, BC ==
[2019-06-09 12:54] LABS: Basophils % (A) 0 %; Eosinophils % (A) 1 %; HGB 14.5 gm/dL (13.0-17.5); Lymphocytes # (A) 0.7 k/uL (1.0-4.8); Lymphocytes % (A) 22 %; MCH 32.2 pg (25.0-35.0); MCHC 34.5 g/dL (31.0-37.0); MCV 93.3 fL (80.0-100.0); Mean Platelet Volume 7.8; Monocytes # (A) 0.3 k/uL (0-1.0); Monocytes % (A) 9 %; Neutrophils # (A) 2.1 k/uL (1.3-7.7); Neutrophils % (A) 65 %; Platelet Count 186 k/uL (150-450); RDW 12.6 % (11.5-15.5); WBC 3.2 k/uL (3.8-10.6)
[2019-06-09 18:04] LABS: Hemoglobin A1C 7.1 % (4.0-6.0)
[2019-06-09 19:24] LABS: Chol/HDL Ratio 4.11
== END | disposition home or self-care (01) ==
LOC: LABWHC1 11:54
PROVIDERS: ATTEND Internal Medicine
DX: I10 Essential (primary) hypertension (principal); E11.9 Type 2 diabetes mellitus without complications; E78.2 Mixed hyperlipidemia
CPT/HCPCS: 36415; 80061; 83036; 83721; 84443; 85025

== ENCOUNTER → 2019-06-09 | Outpatient (CLI) | payer MEDICARE, BC ==
[2019-06-09 12:56] LABS: Partial Thromboplastin Time 22.3 sec (22.0-30.0); Prothrombin Time 10.6 sec (9.0-12.0)
[2019-06-09 12:59] LABS: Albumin 4.6 g/dL (3.5-5.0); Calcium 9.3 mg/dL (8.4-10.2); Potassium 4.8 mmol/L (3.5-5.1); Total Bilirubin 2.1 mg/dL (0.2-1.3); Total Protein 7.1 g/dL (6.3-8.2)
[2019-06-09 13:25] LABS: Appearance,Urine Cloudy (Clear); Bilirubin,Urine Negative (Negative); Blood,Urine Negative (Negative); Color,Urine Yellow; Glucose,Urine (UA) Negative (Negative); Ketones,Urine Negative (Negative); Leukocyte Esterase,Urine Trace (Negative); Mucus,Urine Rare /hpf; Nitrite,Urine Negative (Negative); Protein,Urine Negative (Negative); Squamous Epithelial Cell,Urine 4 /hpf (0-4); Urobilinogen,Urine <2.0 mg/dL (<2.0); WBC,Urine 4 /hpf (0-5)
== END | disposition home or self-care (01) ==
LOC: LABPAT 11:48
PROVIDERS: ATTEND Orthopaedic Surgery
DX: Z01.812 Encounter for preprocedural laboratory examination (principal); Z51.81 Encounter for therapeutic drug level monitoring
CPT/HCPCS: 80053; 81001; 85610; 85730; 87070

== ENCOUNTER 2019-06-20 05:45 | Day surgery (SDC) | payer MEDICARE, BC ==
[2019-06-19 09:18] VITALS: BMI 31.6
[~2019-06-20 05:45] MED LIST changes: +ACETAMINOPHEN TAB 500 MG TAB PO ONE; +DEXAMETHASONE SOD PHOSPHATE 10 MG/ML 1 ML VIAL IV ONE; +GABAPENTIN 300 MG CAP PO ONE; +HYDROmorphone 0.5 MG/0.5 ML SYRINGE IVP PRN; +LIDOCAINE 1% (10MG/ML) FOR IV START INTRADERMA PRN; +MELOXICAM 7.5 MG TAB PO ONE; +MIDAZOLAM 2 MG/2 ML VIAL IV PRN; +ONDANSETRON 4 MG/2 ML VIAL IVP ONE; +SCOPOLAMINE 1.5MG/72HR PATCH TRANSDERM ONE; +TRANEXAMIC ACID 1,000 MG in SODIUM CHLORIDE 0.9% 100 ML IVPB ONE
[2019-06-20] MEDS: LACTATED RINGERS 1,000 ML IV SCH ×2 (06:11→14:42)
[2019-06-20 06:19] LABS: Glucose,Whole Blood 165 mg/dL (75-99)
[2019-06-20] MEDS ORDERED: HEPARIN SODIUM,PORCINE 10,000 UNIT/ML 1 ML VIAL ONE (06:54)
[2019-06-20] MEDS ORDERED: LACTATED RINGERS 1,000 ML BAG IV ONE (06:54)
[2019-06-20] MEDS ORDERED: fentaNYL (PF) 50 MCG/ML 2 ML AMP ONE (06:54)
[2019-06-20] MEDS ORDERED: TRANEXAMIC ACID 1,000 MG/10 ML VIAL ONE (06:54)
[2019-06-20] MEDS ORDERED: MIDAZOLAM 2 MG/2 ML VIAL ONE (06:54)
[2019-06-20] MEDS ORDERED: SODIUM CHLORIDE 0.9% 100 ML BAG ONE (06:54)
[2019-06-20] MEDS ORDERED: diphenhydrAMINE 50 MG/ML 1 ML VIAL ONE (06:54)
[2019-06-20] MEDS ORDERED: PROPOFOL 10 MG/ML 20 ML VIAL IV ONE (06:54)
[2019-06-20] MEDS ORDERED: ceFAZolin 3,000 MG in SODIUM CHLORIDE 0.9% IRRIGATIO 3,000 ML IRRIGATION ONE (07:00)
[2019-06-20] MEDS: ROPIVACAINE 246.25 MG, EPINEPHrine 0.5 MG, KETOROLAC 30 MG, cloNIDine HCL/PF 80 MCG, WA... MISCELLANE ONE ×10 (07:36→08:18)
[2019-06-20] MEDS ORDERED: LACTATED RINGERS 1,000 ML IV ONE ×2 (07:55→08:42)
--- NOTE | 2019-06-20 08:46 | P.OP ---
Date of Procedure: 06/20/19 Preoperative Diagnosis: Severe osteoarthritis right hip Postoperative Diagnosis: Severe osteoarthritis right hip Procedure(s) Performed: Right total hip arthroplasty with a direct anterior approach Implants: Hu[employer] nephew Polarstem size 8 standard [employer]hew R3, 3 hole acetabular shell, 54 mm [employer]hew reflection 6.5 mm cancellus screw, 20 mm 2 [employer] R3, XLPE 20 acetabular liner [employer]hew Oxinium femoral head 36 m, +8 All components were press-fit. The articulation is Oxinium on polyethylene. Anesthesia: spinal Surgeon: Raji Choi Station Installation Supervisor #1: Malena Rodriguez Estimated Blood Loss (ml): 200 (61 mL returned with Cell Saver) Pathology: other (Femoral head) Condition: stable Disposition: PACU Indications for Procedure: After failure of conservative treatment we discussed the surgical and nonsurgical treatment options at length. Patient wishes to proceed with a total hip arthroplasty with a direct anterior approach. Complications specific to this procedure were discussed at length, including but not limited to infection, leg length discrepancy, dislocation, and nerve injury. Patient is aware of all these complications and informed consent was obtained Operative Findings: The operative findings are consistent with severe osteoarthritis of the right hip Description of Procedure: Patient was seen and evaluated in the preoperative area, consent was reviewed, and the surgical site was marked with a skin marker. Patient was then brought to the operating room and given prophylactic antibiotics intravenously. 1 g of Tranexamic acid was also given. A spinal anesthetic was administered by the anesthesia department. The patient was then placed on the [place] table with the bony prominences well-padded. The hip area was then prepped and draped in usual sterile fashion. A universal timeout was then performed, which confirmed the patient's name, surgical site, ALLERGIES, and procedure being performed. Next the incision site was located at 1 cm distal and 1 cm lateral to the anterior superior iliac spine. The skin and subcutaneous tissues were sharply incised. Incision was carefully dissected down to the fascia overlying the tensor fascia johanna muscle. This fascia was then incised in line with the incision. Next, using blunt finger dissection, the tensor fascia johanna muscle was dissected off its investing fascia. The muscle was then carefully retracted laterally with a cobra retractor over the lateral neck of the femur. Next, the circumflex vessels were identified and cauterized using the AquaMantis device. The anterior hip capsule was then exposed. The capsule was then opened and an inverted T fashion. Cobra retractors were then placed intracapsularly. The proximal femur was then visualized. The femoral neck was then osteotomized appropriate level above the lesser trochanter. Small amount of traction was placed with the [place] table. A small wedge of bone was then removed from the remaining femoral head. Next, using a corkscrew femoral head was easily removed from the acetabulum. On gross visual inspection, the femoral head had complete loss of articular cartilage in mu ltiple periarticular osteophytes. Attention was then turned to the acetabulum. the acetabulum was exposed and any remaining labrum was excised. Sequential reaming of the acetabulum was performed using fluoroscopic guidance. When the appropriate size was reached, a trial was then placed. The position and fit of the trial was checked with fluoroscopy. The trial was then removed. Then, using fluoroscopic guidance, the final implant was impacted at 20 of anteversion and 40 of abduction, and fully seated in the acetabulum. 2 screws were then placed in the acetabulum. Again fluoroscopy was used to check position of the screws. Next, the liner was then impacted, with a 20 elevated liner located in the anterior superior quadrant. Component locking was confirmed. Attention was then directed to the femur. With the aid of the [place] table, the femur was externally rotated to approximately 130, extended, and abducted under the opposite leg. A side hook was then placed under the proximal femur, and the side hook elevator was used to elevate the proximal femur. Retractors were then placed. A capsular release was performed, as well as a release of the conjoined tendon, which afforded excellent visualization of the proximal femur. Next, a box osteotome was used to lateralize the proximal femur. A supervisor cigar making hand was then used to locate the femoral canal. Sequential broaching was then performed with appropriate size which afforded excellent fixation in the proximal femur. A trial was then placed with appropriate head and neck, and the hip was gently reduced with the aid of the [place] table. Fluoroscopy was then used to check position of the components, as well as to ensure equal leg lengths. The hip was then gently dislocated and the trials were then removed. Final implants were then impacted and the hip was again reduced. Final fluoroscopic x-rays confirmed that the components were in anatomic position, as well as equal leg lengths. The hip was also taken through range of motion, and found to be stable. The hip was then copiously irrigated with antibiotic solution with pulsatile lavage. The hip was then irrigated with Irrisept solution. The soft tissues were then injected with a ropivacaine solution, which consisted of 246.25 mg of ropivacaine, 0.5 mg of epinephrine, 30 mg of Toradol, 80 g of clonidine, and 48.45 mL of sterile water, for a total of 100 mL of fluid injected. A second dose of 1 g of Tranexamic acid was also given. the fascia was then closed with 2-0 strata fix suture. The subcutaneous tissue was closed with 3-0 Vicryl. The subcuticular tissue was closed with 3-0 strata fix suture. The skin was then closed with Dermabond glue and a sterile silver dressing. The patient was then transferred to the recovery room in stable co ndition. The sales office assistant TANA Torres was required due to the complexity of surgery, and the need for skilled instructor adjunct surgical technician for positioning, draping, exposure, retraction, and closure of the wound.
[2019-06-20] MEDS ORDERED: ONDANSETRON 4 MG/2 ML VIAL IVP PRN (09:14)
[2019-06-20] MEDS ORDERED: HYDROcodone/APAP 5-325MG 1 EACH TAB PO PRN (09:14)
[2019-06-20] MEDS ORDERED: NALOXONE 0.4 MG/ML 1 ML VIAL IV PRN (09:14)
[2019-06-20] MEDS ORDERED: HYDROmorphone 0.5 MG/0.5 ML SYRINGE IVP PRN ×2 (09:14)
--- NOTE | 2019-06-20 09:14 | XR ---
EXAMINATION TYPE: XR Hip Limited RT DATE OF EXAM: 06/20/2019 COMPARISON: NONE HISTORY: Postop TECHNIQUE: One view submitted. FINDINGS: There is postsurgical change in near anatomic alignment. There is soft tissue edema and emphysema. IMPRESSION: 1. Postoperative change. Appears in near-anatomic alignment.
--- NOTE | 2019-06-20 09:15 | FL ---
EXAMINATION TYPE: FL guidance operating room DATE OF EXAM: 06/20/2019 HISTORY: Fluoroscopy time 1 minute and 12 seconds of fluoroscopy provided. IMPRESSION: 1. Fluoroscopy time.
[2019-06-20] MEDS: HYDROmorphone 0.5 MG/0.5 ML SYRINGE IVP PRN ×3 (10:22→21:59)
[2019-06-20] MEDS: HYDROmorphone 1 MG/ML 1 ML SYRINGE IVP ONE ×2 (10:44→10:51)
[2019-06-20 11:56] LABS: Glucose,Whole Blood 214 mg/dL (75-99)
--- NOTE | 2019-06-20 12:10 | P.CONS ---
History of Present Illness - Reason for Consult Consult date: 06/20/19 Medical management Requesting physician: Raji Choi - Chief Complaint Right total hip arthroplasty. - History of Present Illness This is a 73-year-old male one of my patient with a previous medical history significant for CAD post-PCI with the hypertension and hypertensive cardiovascular disease with left ventricular hypertrophy, diabetes mellitus type 2, hyperlipidemia, history of prostate cancer status post radiation therapy his PSA was negative, history of osteoarthritis GERD and erectile dysfunction, patient underwent right total hip arthroplasty that was done today and he was seen prior to the surgery and he underwent cardiac evaluation with a nuclear stress testing that was negative for stress-induced ischemia, echocardiogram was normal. Patient sitting up in bed in no apparent distress he denies any chest pain at this time he has no shortness breath, he has no abdominal pain nausea or vomiting he discontinued pain in the hip was described as 6 out of 10 in intensity he did receive some pain medicine he feels the mouth is very dry otherwise he feels fine. Review of Systems Constitutional: Denies anorexia, Denies chronic headaches, Denies lethargy, Denies malaise, Denies weakness, Denies weight gain, Denies weight loss Eyes: denies blurred vision, denies bulging eye, denies decreased vision Ears: deny: decreased hearing Ears, nose, mouth and throat: Denies dysphagia, Denies neck lump, Denies swelling in throat, Denies sore throat Cardiovascular: Denies chest pain, Denies decreased exercise tolerance, Denies dyspnea on exertion, Denies lightheadedness, Denies rapid heart beat, Denies sh ortness of breath, Denies syncope Respiratory: Denies congestion, Denies cough with sputum, Denies home oxygen, Denies sleep apnea, Denies snoring, Denies wheezing Gastrointestinal: Denies abdominal pain, Denies bloating, Denies BRBPR, Denies heartburn, Denies nausea, Denies vomiting Genitourinary: Reports nocturia, Denies dysuria Musculoskeletal: Denies myalgias Musculoskeletal: right: hip pain, absent: ankle pain, ankle stiffness, ankle swelling, elbow pain, elbow stiffness, elbow swelling, foot pain, foot stiffness, foot swelling, hand pain, hand stiffness, hand swelling, hip stiffness, hip swelling, knee pain, knee stiffness, knee swelling, shoulder pain, shoulder stiffness, shoulder swelling, wrist pain, wrist stiffness, wrist swelling Integumentary: Denies pruritus, Denies rash Neurological: Denies numbness, Denies weakness Psychiatric: Denies anxiety, Denies depression Endocrine: Denies fatigue, Denies weight change Past Medical History Past Medical History: Coronary Artery Disease (CAD), Cancer, Chest Pain / Angina, Diabetes Mellitus, GERD/Reflux, Hyperlipidemia, Hypertension, Osteoarthritis (OA), Prostate Disorder Additional Past Medical History / Comment(s): 5 Herniated discs in neck causing headaches & numbness in arm and right lower back and pain and right leg pain. Hx 4 fx ribs, current Prostate Cancer- last radiation tx Mar 25 had total of 44 tx. occ constipation, Last Myocardial Infarction Date:: UNKOWN History of Any Multi-Drug Resistant Organisms: None Reported Past Surgical History: Adenoidectomy, Heart Catheterization, Heart Catheterization With Stent, Joint Replacement, Orthopedic Surgery, Prostate Surgery, Tonsillectomy Additional Past Surgical History / Comment(s): PROSTATE BX., LT. KNEE ARTHROSCOPY X 2, CERVICAL FUSIONS, COLONOSCOPY, ÁNGEL. CATARTACTS.Pain Procedures , rt radio frequency procedures. 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 Brother(s) Additional Family Medical History / Comment(s): Patient has one brother with history of smoking and no other major medical problems. Patient does not have any sisters. Daughter(s) Additional Family Medical History / Comment(s): He has one daughter alive in [place] with no major medical problems. Patient has one daughter with history of muscular dystrophy and of pneumonia. Son(s) Family Medical History: No Reported History Additional Family Medical History / Comment(s): Patient has one son with no major medical problems. Mother Family Medical History: Cancer Additional Family Medical History / Comment(s): Mother at age 81 from uteri ne cancer with metastatic disease. Medications and Allergies Home Medications Medication Instructions Recorded Confirmed Type Atorvastatin Calcium [Lipitor] 40 mg PO QAM 11/01/14 06/20/19 History sitaGLIPtin PHOS/metFORMIN HCL 1 tab PO DAILY@1200 06/08/17 06/20/19 History [Janumet 50-1,000 mg Tablet] Aspirin EC [Ecotrin Low Dose] 81 mg PO DAILY #30 tablet. 03/25/18 06/20/19 Rx Atenolol 50 mg PO DAILY 05/25/18 06/20/19 History Hydrocodone/Acetaminophen 1 tab PO Q6HR PRN 11/23/18 06/20/19 History [Hydrocodone-Acetamin 10-300 mg] Allergies Allergy/AdvReac Type Severity Reaction Status Date / Time No Known Allergies Allergy Verified 06/20/19 05:50 Physical Exam Vitals: Vital Signs Temp Pulse Pulse Resp BP BP Pulse Ox 06/20/19 11:00 62 16 151/90 100 06/20/19 10:45 69 16 148/85 98 06/20/19 10:30 78 16 142/90 98 06/20/19 10:15 81 16 138/90 98 06/20/19 10:00 78 16 119/72 98 06/20/19 09:45 78 16 119/67 98 06/20/19 09:30 83 16 119/72 98 06/20/19 09:15 75 16 116/71 95 06/20/19 09:06 97.8 F 82 14 120/74 95 06/20/19 06:09 97.9 F 89 16 139/82 96 Intake and Output 06/19/19 06/20/19 06/20/19 22:59 06:59 14:59 Intake Total 400 1301 Output Total 200 Balance 400 1101 Intake: IV 400 1301 Output: Estimated Blood Loss 200 Other: Weight 112 kg HEENT: Head is atraumatic, normocephalic, pupils were equal round reactive to light and accommodation, extraocular muscle movement were intact, mucous membranes of the mouth are somewhat dry. Neck: Supple, no JVP, decreased carotid upstroke bilaterally. Chest: Decreased breath sounds at the bases, few rhonchi, no expiratory wheezes, no chest wall tenderness, no intercostal retractions. Heart: First heart sound is depressed, second heart sound is normal, there is systolic ejection murmur 2/6 located in the left sternal border. Abdomen: Soft, nontender, nondistended, positive bowel sounds. Extremities: There is no edema, no calf tenderness, dorsalis pedis +2 bilaterally. Right hip is covered with a dressing, there is no drainage. Neurologic examination: Patient is awake alert and oriented 3, creatinine ner ves III-12 appear grossly intact, muscle power 4 out of 5 upper and lower extremities bilaterally. Results Labs: Abnormal Lab Results - Last 24 Hours (Table) 06/20/19 06/20/19 Range/Units 06:05 11:55 POC Glucose (mg/dL) 165 H 214 H (75-99) mg/dL Assessment and Plan Assessment: Assessment and plan: 1. Postoperative day #0 status post right total hip arthroplasty anterior approach. Patient was instructed to use the incentive spirometer to reduce the incidence of atelectasis and healthcare associated pneumonia, continue DVT prophylaxis as outlined by orthopedic surgery, continue current pain management as outlined, physical therapy evaluation, patient likely will do fine at home as he has some help at the patient on his pain control prior to his discharge. 2. Hypertension and hypertensive cardiovascular disease. Continue patient on atenolol 50 mg orally once every day as well as valsartan 160/12.5 mg orally once every day. 3. CAD post-PCI. Continue patient on aspirin 81 mg once every day, Lipitor 40 mg orally once every day, and the atenolol 50 mg orally once every day. 4. Hyperlipidemia. Continue patient on Lipitor 40 mg orally once every day. 5. Diabetes mellitus type 2. Continue patient on consistent Carbohydrate diet, continue patient on Janumet, along with a sliding scale insulin as needed. 6. History of prostate cancer postradiation therapy currently in remission. 7. GERD. Continue PPI. 8. Thanks for the consult we will follow with you.
[2019-06-20] MEDS: VALSARTAN 160 MG TAB PO SCH (12:42)
[2019-06-20] MEDS: HYDROCHLOROTHIAZIDE 12.5 MG CAP PO SCH (12:42)
[2019-06-20 17:04] LABS: Glucose,Whole Blood 241 mg/dL (75-99)
[2019-06-20] MEDS: ASPIRIN 325 MG TAB PO SCH (19:01)
[2019-06-20] MEDS: HYDROcodone/APAP 5-325MG 1 EACH TAB PO PRN (19:01)
[2019-06-20] MEDS: SENNOSIDES-DOCUSATE SODIUM 1 EACH TAB PO SCH (19:02)
[2019-06-20 23:30] LABS: Glucose,Whole Blood 153 mg/dL (75-99)
[2019-06-21] MEDS: HYDROcodone/APAP 5-325MG 1 EACH TAB PO PRN ×2 (00:57→06:09)
[2019-06-21] MEDS: HYDROmorphone 0.5 MG/0.5 ML SYRINGE IVP PRN ×2 (04:45→19:43)
[2019-06-21] MEDS: hydrOXYzine PAMOATE 25 MG CAP PO PRN (06:10)
[2019-06-21 07:18] LABS: Glucose,Whole Blood 154 mg/dL (75-99)
[2019-06-21 07:53] LABS: Basophils % (A) 0 %; Eosinophils % (A) 0 %; HCT 33.9 % (39.0-53.0); Lymphocytes # (A) 0.5 k/uL (1.0-4.8); Lymphocytes % (A) 6 %; MCH 31.7 pg (25.0-35.0); MCHC 33.6 g/dL (31.0-37.0); MCV 94.4 fL (80.0-100.0); Mean Platelet Volume 8.9; Monocytes # (A) 0.5 k/uL (0-1.0); Monocytes % (A) 7 %; Neutrophils # (A) 6.9 k/uL (1.3-7.7); Neutrophils % (A) 86 %; Platelet Count 152 k/uL (150-450); RBC 3.59 m/uL (4.30-5.90); RDW 12.7 % (11.5-15.5)
[2019-06-21 08:04] LABS: HGB 11.4 gm/dL (13.0-17.5)
--- NOTE | 2019-06-21 08:14 | P.PN ---
Subjective Progress Note Date: 06/21/19 Principal diagnosis: Status post right anterior total hip arthroplasty This is a 73 year-old male post right anterior total hip arthroplasty. This is post-op day 1. The patient was evaluated at the bedside today. The patient denies nausea, vomiting, abdominal pain, shortness of breath, and chest pain this morning. He states his pain is controlled at this time. The patient has not been up with physical therapy but has ambulated to the bathroom. Objective - Vital Signs Vital signs: Vital Signs Temp 98.9 F 06/21/19 07:00 Pulse 77 06/21/19 07:00 Resp 17 06/21/19 07:00 BP 129/79 06/21/19 07:00 Pulse Ox 98 06/21/19 07:00 Intake & Output 06/20/19 06/21/19 06/21/19 18:59 06:59 18:59 Intake Total 2301 Output Total 900 Balance 1401 Weight 112 kg Intake: IV 1301 Oral 1000 Output: Urine 700 Estimated Blood Loss 200 Other: Voiding Method Toilet # Voids 1 1 - Exam The patient does not appear in acute distress. Alert and orientated x3. Dressing is clean dry and intact. Incision appears fine with no active drainage. Calf is soft and nontender. Good foot and ankle motion without difficulty. Sensation and circulatory status is intact. - Labs CBC & Chem 7: 06/21/19 06:56 Labs: Abnormal Lab Results - Last 24 Hours (Table) 06/20/19 06/20/19 06/20/19 Range/Units 11:55 17:01 23:28 RBC (4.30-5.90) m/uL Hgb (13.0-17.5) gm/dL Hct (39.0-53.0) % Lymphocytes # (1.0-4.8) k/uL POC Glucose (mg/dL) 214 H 241 H 153 H (75-99) mg/dL 06/21/19 06/21/19 Range/Units 06:56 07:18 RBC 3.59 L (4.30-5.90) m/uL Hgb 11.4 L D (13.0-17.5) gm/dL Hct 33.9 L (39.0-53.0) % Lymphocytes # 0.5 L (1.0-4.8) k/uL POC Glucose (mg/dL) 154 H (75-99) mg/dL Assessment and Plan (1) Primary localized osteoarthritis of right hip Current Visit: Yes Status: Acute Code(s): M16.11 - UNILATERAL PRIMARY OSTEOARTHRITIS, RIGHT HIP SNOMED Code(s): 192062408 (2) Status post right hip replacement Current Visit: Yes Status: Acute Code(s): Z96.641 - PRESENCE OF RIGHT ARTIFICIAL HIP JOINT SNOMED Code(s): 614759322 Plan: 1. Continue pain control 2. Anticoagulation with Aspirin 325 mg BID 3. Continue physical therapy and ambulation 4. Anticipate discharge home with homecare either later today or tomorrow.
[2019-06-21] MEDS: ATENOLOL 50 MG TAB PO SCH (08:53)
[2019-06-21] MEDS: ASPIRIN 325 MG TAB PO SCH ×2 (08:53→21:55)
[2019-06-21] MEDS: VALSARTAN 160 MG TAB PO SCH (08:53)
[2019-06-21] MEDS: ATORVASTATIN 40 MG TAB PO SCH (08:53)
[2019-06-21] MEDS: HYDROCHLOROTHIAZIDE 12.5 MG CAP PO SCH (08:53)
[2019-06-21] MEDS ORDERED: BENZOCAINE/MENTHOL LOZENG 1 EACH LOZENGE MUCOUS MEM PRN (11:02)
[2019-06-21 11:52] LABS: Glucose,Whole Blood 155 mg/dL (75-99)
[2019-06-21] MEDS: metFORMIN 500 MG TAB PO SCH (12:08)
[2019-06-21] MEDS: LINAGLIPTIN 5 MG TABLET PO SCH (12:08)
[2019-06-21] MEDS: HYDROcodone/APAP 10-325MG 1 EACH TAB PO PRN ×2 (15:11→21:54)
--- NOTE | 2019-06-21 15:34 | P.PN ---
Subjective Progress Note Date: 06/21/19 This is a 73-year-old male one of my patient with a previous medical history significant for CAD post-PCI with the hypertension and hypertensive cardiovascular disease with left ventricular hypertrophy, diabetes mellitus type 2, hyperlipidemia, history of prostate cancer status post radiation therapy his PSA was negative, history of osteoarthritis GERD and erectile dysfunction, patient underwent right total hip arthroplasty that was done today and he was seen prior to the surgery and he underwent cardiac evaluation with a nuclear stress testing that was negative for stress-induced ischemia, echocardiogram was normal. Patient sitting up in bed in no apparent distress he denies any chest pain at this time he has no shortness breath, he has no abdominal pain nausea or vomiting he discontinued pain in the hip was described as 6 out of 10 in intensity he did receive some pain medicine he feels the mouth is very dry otherwise he feels fine. 06/20: Patient is postop day #1. He states he did not sleep very well last night. He states that once the numbness wore off he started have significant pain to the right hip. Patient has been afebrile, heart rate 77, blood pressure 129/79, pulse ox 90% on room air. Hemoglobin 11.4, blood sugars now running in the 150s. Patient states that he is no longer on losartan/hydrochlorothiazide and only on straight valsartan. Hydrochlorothiazide will be discontinued. Discharge plan is home with the [facility] care. Patient is tentatively s cheduled for discharge tomorrow. He is working with physical therapy and occupational therapy. He is on aspirin 325 mg twice daily for DVT prophylaxis. Objective - Vital Signs Vital signs: Vital Signs Temp 98.9 F 06/21/19 07:00 Pulse 77 06/21/19 07:00 Resp 17 06/21/19 07:00 BP 129/79 06/21/19 07:00 Pulse Ox 98 06/21/19 07:00 Intake & Output 06/20/19 06/21/19 06/21/19 18:59 06:59 18:59 Intake Total 2301 200 Output Total 900 Balance 1401 200 Weight 112 kg Intake: IV 1301 Oral 1000 200 Output: Urine 700 Estimated Blood Loss 200 Other: Voiding Method Toilet # Voids 1 1 - Exam Review of Systems Constitutional: Denies anorexia, Denies chronic headaches, Denies lethargy, Denies malaise, Denies weakness, Denies weight gain, Denies weight loss Eyes: denies blurred vision, denies bulging eye, denies decreased vision Ears: deny: decreased hearing Ears, nose, mouth and throat: Denies dysphagia, Denies neck lump, Denies swelling in throat, Denies sore throat Cardiovascular: Denies chest pain, Denies decreased exercise tolerance, Denies dyspnea on exertion, Denies lightheadedness, Denies rapid heart beat, Denies shortness of breath, Denies syncope Respiratory: Denies congestion, Denies cough with sputum, Denies home oxygen, Denies sleep apnea, Denies snoring, Denies wheezing Gastrointestinal: Denies abdominal pain, Denies bloating, Denies BRBPR, Denies heartburn, Denies nausea, Denies vomiting Genitourinary: Reports nocturia, Denies dysuria Musculoskeletal: Denies myalgias Musculoskeletal: right: hip pain Integumentary: Denies pruritus, Denies rash Neurological: Denies numbness, Denies weakness Psychiatric: Denies anxiety, Denies depression Endocrine: Denies fatigue, Denies weight change Physical examination HEENT: Head is atraumatic, normocephalic, pupils were equal round reactive to li ght and accommodation, extraocular muscle movement were intact, mucous membranes of the mouth are somewhat dry. Neck: Supple, no JVP, decreased carotid upstroke bilaterally. Chest: Decreased breath sounds at the bases, few rhonchi, no expiratory wheezes, no chest wall tenderness, no intercostal retractions. Heart: First heart sound is depressed, second heart sound is normal, there is systolic ejection murmur 2/6 located in the left sternal border. Abdomen: Soft, nontender, nondistended, positive bowel sounds. Extremities: There is no edema, no calf tenderness, dorsalis pedis +2 bilaterall y. Right hip is covered with a dressing, there is no drainage or break through bleeding. Neurologic examination: Patient is awake alert and oriented 3, creatinine nerves III-12 appear grossly intact, muscle power 4 out of 5 upper and lower extremities bilaterally. - Labs CBC & Chem 7: 06/21/19 06:56 Labs: Abnormal Lab Results - Last 24 Hours (Table) 06/20/19 06/20/19 06/20/19 Range/Units 11:55 17:01 23:28 RBC (4.30-5.90) m/uL Hgb (13.0-17.5) gm/dL Hct (39.0-53.0) % Lymphocytes # (1.0-4.8) k/uL POC Glucose (mg/dL) 214 H 241 H 153 H (75-99) mg/dL 06/21/19 06/21/19 Range/Units 06:56 07:18 RBC 3.59 L (4.30-5.90) m/uL Hgb 11.4 L D (13.0-17.5) gm/dL Hct 33.9 L (39.0-53.0) % Lymphocytes # 0.5 L (1.0-4.8) k/uL POC Glucose (mg/dL) 154 H (75-99) mg/dL Assessment and Plan Plan: 1. Postoperative day #1 status post right total hip arthroplasty anterior approach. Continue incentive spirometer to reduce the incidence of atelectasis and healthcare associated pneumonia, continue DVT prophylaxis with aspirin 325 mg twice daily, continue current pain management as outlined, physical therapy and occupational therapy. 2. Hypertension and hypertensive cardiovascular disease. Continue patient on atenolol 50 mg orally once every day as well as valsartan 160 mg orally once every day. 3. CAD post-PCI. Continue patient on aspirin 81 mg once every day, Lipitor 40 mg orally once every day, and the atenolol 50 mg orally once every day. 4. Hyperlipidemia. Continue patient on Lipitor 40 mg orally once every day. 5. Diabetes mellitus type 2. Continue patient on consistent Carbohydrate diet, continue patient on Janumet, along with a sliding scale insulin as needed. 6. History of prostate cancer postradiation therapy currently in remission. 7. GERD. Continue PPI. Discharge plan: Home with [facility] Impression and plan of care have been directed as dictated by the signing p charan. Padma Monsalve nurse practitioner acting as scribe for signing physician.
[2019-06-21 16:49] LABS: Glucose,Whole Blood 175 mg/dL (75-99)
[2019-06-21] MEDS: LACTATED RINGERS 1,000 ML IV SCH (18:23)
[2019-06-21 19:40] VITALS: RESP 16
[2019-06-21 21:33] LABS: Glucose,Whole Blood 207 mg/dL (75-99)
[2019-06-21] MEDS: SENNOSIDES-DOCUSATE SODIUM 1 EACH TAB PO SCH (21:54)
[2019-06-22] MEDS: HYDROcodone/APAP 10-325MG 1 EACH TAB PO PRN ×2 (01:54→08:20)
[2019-06-22] MEDS: hydrOXYzine PAMOATE 25 MG CAP PO PRN (01:54)
[2019-06-22] MEDS ORDERED: VALSARTAN 160 MG TAB PO SCH (06:00)
[2019-06-22 07:02] LABS: Glucose,Whole Blood 145 mg/dL (75-99)
[2019-06-22] MEDS: ATORVASTATIN 40 MG TAB PO SCH (08:20)
[2019-06-22] MEDS: ATENOLOL 50 MG TAB PO SCH (08:20)
[2019-06-22] MEDS: ASPIRIN 325 MG TAB PO SCH (08:20)
--- NOTE | 2019-06-22 08:27 | P.DS ---
Providers Date of admission: 06/20/19 05:30 Expected date of discharge: 06/22/19 Attending physician: Raji Choi Consults: 06/20/19 09:14 Consult Physician Routine Consulting Provider: German Astudillo Consult Reason/Comments: Medical management Do you want consulting provider notified?: Yes Primary care physician: German Astudillo - Discharge Diagnosis(es) (1) Primary localized osteoarthritis of right hip Current Visit: Yes Status: Acute (2) Status post right hip replacement Current Visit: Yes Status: Acute (3) Diabetes mellitus type II, controlled Current Visit: Yes Status: Acute Hospital Course: This is a 73-year-old male with known history of degenerative arthritis of the right hip. The patient presents for evaluation. After discussion and consideration patient elects to proceed with total hip arthroplasty. The patient is seen preoperatively by his primary care physician and cleared for surgery. Patient is admitted to [facility] on 06/20/2019 for right anterior total hip arthroplasty. The procedures performed without complication or sequelae. The patient is doing well postoperatively. Labs and vital signs are stable on day of discharge. On day of discharge patient's hip incision is healing well. There is minimal erythema. There is no drainage noted at this time. There is minimal soft tissue swelling to the hip and thigh. Patient has full foot and ankle motion without difficulty or pain. Neurovascular status to the right lower extremity is intact. Patient is discharged to home in stable condition. Pertinent Studies: Laboratory Tests 06/21/19 06/22/19 06:56 07:00 WBC 8.0 RBC 3.59 L Hgb 11.4 L D Hct 33.9 L POC Glucose (mg/dL) 145 H Patient Condition at Discharge: Stable Plan - Discharge Summary Discharge Rx Participant: Yes New Discharge Prescriptions: New Aspirin 325 mg PO BID #60 tab Sennosides-Docusate Sodium [Senokot-S] 2 tab PO DAILY #30 tablet No Action Atorvastatin Calcium [Lipitor] 40 mg PO QAM sitaGLIPtin PHOS/metFORMIN HCL [Janumet 50-1,000 mg Tablet] 1 tab PO DAILY@1200 Aspirin EC [Ecotrin Low Dose] 81 mg PO DAILY #30 tablet. Atenolol 50 mg PO DAILY Hydrocodone/Acetaminophen [Hydrocodone-Acetamin 10-300 mg] 1 tab PO Q6HR PRN PRN Reason: Pain Discharge Medication List Atorvastatin Calcium [Lipitor] 40 mg PO QAM 11/01/14 [History] sitaGLIPtin PHOS/metFORMIN HCL [Janumet 50-1,000 mg Tablet] 1 tab PO DAILY@1200 06/08/17 [History] Aspirin EC [Ecotrin Low Dose] 81 mg PO DAILY #30 tablet. 03/25/18 [Rx] Atenolol 50 mg PO DAILY 05/25/18 [History] Hydrocodone/Acetaminophen [Hydrocodone-Acetamin 10-300 mg] 1 tab PO Q6HR PRN 11/23/18 [History] Aspirin 325 mg PO BID #60 tab 06/21/19 [Rx] Sennosides-Docusate Sodium [Senokot-S] 2 tab PO DAILY #30 tablet 06/21/19 [Rx] Follow up Appointment(s)/Referral(s): German Astudillo MD [Primary Care Provider] - 1 Week [facility], [NON-STAFF] - As Needed Raji Choi DO [Doctor of Osteopathic Medicine] - 07/05/19 2:00 pm Activity/Diet/Wound Care/Special Instructions: Weightbearing as tolerated with walker Keep dressing in place for 10 days unless saturated Aspirin 325 mg twice a day. Resume baby aspirin one daily after completing 4 week course of aspirin 325 mg twice daily. May shower over dressing Pain medication per Dr. Freeman Follow up with Dr. Raji Choi in 2 weeks. Call [facility] with questions or concerns, Discharge Disposition: HOME WITH HOME HEALTH SERVICES
[2019-06-22 08:31] LABS: Albumin 3.3 g/dL (3.5-5.0); Calcium 8.1 mg/dL (8.4-10.2); Potassium 4.4 mmol/L (3.5-5.1); Total Bilirubin 0.8 mg/dL (0.2-1.3); Total Protein 5.4 g/dL (6.3-8.2)
[2019-06-22 08:39] VITALS: BP 138/77; PULSE 83; TEMP 98.4
[2019-06-22] MEDS ORDERED: MAGNESIUM HYDROXIDE 2,400 MG/10 ML CUP PO ONE (09:26)
[2019-06-22 12:20] LABS: Glucose,Whole Blood 153 mg/dL (75-99)
[2019-06-22] MEDS: metFORMIN 500 MG TAB PO SCH (12:27)
[2019-06-22] MEDS: LINAGLIPTIN 5 MG TABLET PO SCH (12:27)
--- NOTE | 2019-06-22 13:46 | P.PN ---
Subjective Progress Note Date: 06/22/19 This is a 73-year-old male one of my patient with a previous medical history significant for CAD post-PCI with the hypertension and hypertensive cardiovascular disease with left ventricular hypertrophy, diabetes mellitus type 2, hyperlipidemia, history of prostate cancer status post radiation therapy his PSA was negative, history of osteoarthritis GERD and erectile dysfunction, patient underwent right total hip arthroplasty that was done today and he was seen prior to the surgery and he underwent cardiac evaluation with a nuclear stress testing that was negative for stress-induced ischemia, echocardiogram was normal. Patient sitting up in bed in no apparent distress he denies any chest pain at this time he has no shortness breath, he has no abdominal pain nausea or vomiting he discontinued pain in the hip was described as 6 out of 10 in intensity he did receive some pain medicine he feels the mouth is very dry otherwise he feels fine. 06/20: Patient is postop day #1. He states he did not sleep very well last night. He states that once the numbness wore off he started have significant pain to the right hip. Patient has been afebrile, heart rate 77, blood pressure 129/79, pulse ox 90% on room air. Hemoglobin 11.4, blood sugars now running in the 150s. Patient states that he is no longer on losartan/hydrochlorothiazide and only on straight valsartan. Hydrochlorothiazide will be discontinued. Discharge plan is home with the [facility] care. Patient is tentatively s cheduled for discharge tomorrow. He is working with physical therapy and occupational therapy. He is on aspirin 325 mg twice daily for DVT prophylaxis. 06/21: Patient states he could not sleep last night he was having pain to the right hip. Pain is improved at this time. Patient states he is actually moving to go home and thinks he will be able to sleep better at home. He does have some bruising and edema the right hip thigh area. He states he is walking well with physical therapy. Patient is scheduled for discharge home today. Medication reconciliation has been reviewed. Objective - Vital Signs Vital signs: Vital Signs Temp 98.4 F 06/22/19 07:00 Pulse 83 06/22/19 07:00 Resp 16 06/22/19 07:00 BP 138/77 06/22/19 07:00 Pulse Ox 98 06/22/19 07:00 Intake & Output 06/21/19 06/22/19 06/22/19 18:59 06:59 18:59 Intake Total 700 400 296 Balance 700 400 296 Intake: Oral 700 400 296 Other: Voiding Method Toilet # Voids 2 1 - Exam Review of Systems Constitutional: Denies anorexia, Denies chronic headaches, Denies lethargy, Denies malaise, Denies weakness, Denies weight gain, Denies weight loss Eyes: denies blurred vision, denies bulging eye, denies decreased vision Ears: deny: decreased hearing Ears, nose, mouth and throat: Denies dysphagia, Denies neck lump, Denies swelling in throat, Denies sore throat Cardiovascular: Denies chest pain, Denies decreased exercise tolerance, Denies dyspnea on exertion, Denies lightheadedness, Denies rapid heart beat, Denies shortness of breath, Denies syncope Respiratory: Denies congestion, Denies cough with sputum, Denies home oxygen, Denies sleep apnea, Denies snoring, Denies wheezing Gastrointestinal: Denies abdominal pain, Denies bloating, Denies BRBPR, Denies heartburn, Denies nausea, Denies vomiting Genitourinary: Reports nocturia, Denies dysuria Musculoskeletal: Denies myalgias Musculoskeletal: right: hip pain Integumentary: Denies pruritus, Denies rash Neurological: Denies numbness, Denies weakness Psychiatric: Denies anxiety, Denies depression, reports insomnia Endocrine: Denies fatigue, Denies weight change Physical examination HEENT: Head is atraumatic, normocephalic, pupils were equal round reactive to light and accommodation, extraocular muscle movement were intact, mucous membranes of the mouth are somewhat dry. Neck: Supple, no JVP, decreased carotid upstroke bilaterally. Chest: Decreased breath sounds at the bases, few rhonchi, no expiratory wheezes, no chest wall tenderness, no intercostal retractions. Heart: First heart sound is depressed, second heart sound is normal, there is systolic ejection murmur 2/6 located in the left sternal border. Abdomen: Soft, nontender, nondistended, positive bowel sounds. Extremities: There is no edema, no calf tenderness, dorsalis pedis +2 bilaterally. Right hip is covered with a dressing, there is no drainage or break through bleeding. Neurologic examination: Patient is awake alert and oriented 3, cranial nerves III-12 appear grossly intact, muscle power 4 out of 5 upper and lower extremities bilaterally. - Labs CBC & Chem 7: 06/21/19 06:56 06/22/19 07:14 Labs: Abnormal Lab Results - Last 24 Hours (Table) 06/21/19 06/21/19 06/21/19 Range/Units 11:51 16:48 21:31 Sodium (137-145) mmol/L BUN (9-20) mg/dL Glucose (74-99) mg/dL POC Glucose (mg/dL) 155 H 175 H 207 H (75-99) mg/dL Calcium (8.4-10.2) mg/dL Alkaline Phosphatase (38-126) U/L Total Protein (6.3-8.2) g/dL Albumin (3.5-5.0) g/dL 06/22/19 06/22/19 Range/Units 07:00 07:14 Sodium 134 L (137-145) mmol/L BUN 27 H (9-20) mg/dL Glucose 131 H (74-99) mg/dL POC Glucose (mg/dL) 145 H (75-99) mg/dL Calcium 8.1 L (8.4-10.2) mg/dL Alkaline Phosphatase 27 L (38-126) U/L Total Protein 5.4 L (6.3-8.2) g/dL Albumin 3.3 L (3.5-5.0) g/dL Assessment and Plan Plan: 1. Postoperative day #2 status post right total hip arthroplasty anterior approach. Continue incentive spirometer to reduce the incidence of atelectasis and healthcare associated pneumonia, continue DVT prophylaxis with aspirin 325 mg twice daily, continue current pain management as outlined, physical therapy and occupational therapy. 2. Hypertension and hypertensive cardiovascular disease. Continue patient on atenolol 50 mg orally once every day as well as valsartan 160 mg orally once every day. 3. CAD post-PCI. Continue patient on aspirin 81 mg once every day, Lipitor 40 mg orally once every day, and the atenolol 50 mg orally once every day. 4. Hyperlipidemia. Continue patient on Lipitor 40 mg orally once every day. 5. Diabetes mellitus type 2. Continue patient on consistent Carbohydrate diet, continue patient on Janumet, along with a sliding scale insulin as needed. 6. History of prostate cancer postradiation therapy currently in remission. 7. GERD. Continue PPI. Discharge plan: Home with [facility] today. Medication reconciliation reviewed. Impression and plan of care have been directed as dictated by the signing physician. Padma Monsalve nurse practitioner acting as scribe for signing physician.
== END 2019-06-22 13:58 | disposition home health service (06) ==
LOC: OR 05:45 → EDSTATUS 07:00 → 4SSUR 11:04 → 2ORMAIN 11:04 → OR 06-21 14:59 → UNDODISIN 06-22 13:58
PROVIDERS: ATTEND Orthopaedic Surgery
DX: M16.11 Unilateral primary osteoarthritis, right hip (principal); E11.9 Type 2 diabetes mellitus without complications; E78.2 Mixed hyperlipidemia; I25.10 Atherosclerotic heart disease of native coronary artery without angina pectoris; I48.0 Paroxysmal atrial fibrillation; R06.09 Other forms of dyspnea; N52.9 Male erectile dysfunction, unspecified; R01.1 Cardiac murmur, unspecified; M47.16 Other spondylosis with myelopathy, lumbar region; R21 Rash and other nonspecific skin eruption; G47.00 Insomnia, unspecified; E78.00 Pure hypercholesterolemia, unspecified; R60.9 Edema, unspecified; M23.309 Other meniscus derangements, unspecified meniscus, unspecified knee; F32.9 Major depressive disorder, single episode, unspecified; I11.9 Hypertensive heart disease without heart failure; K21.9 Gastro-esophageal reflux disease without esophagitis; N40.0 Benign prostatic hyperplasia without lower urinary tract symptoms; K08.89 Other specified disorders of teeth and supporting structures; E66.9 Obesity, unspecified; Z68.32 Body mass index [BMI] 32.0-32.9, adult; Z79.899 Other long term (current) drug therapy; Z79.82 Long term (current) use of aspirin; Z79.891 Long term (current) use of opiate analgesic; Z79.84 Long term (current) use of oral hypoglycemic drugs; Z97.3 Presence of spectacles and contact lenses; Z85.46 Personal history of malignant neoplasm of prostate; Z87.891 Personal history of nicotine dependence; Z79.1 Long term (current) use of non-steroidal anti-inflammatories (NSAID); Z95.5 Presence of coronary angioplasty implant and graft; Z86.010 Personal history of colon polyps; Z87.19 Personal history of other diseases of the digestive system; Z87.81 Personal history of (healed) traumatic fracture; Z90.89 Acquired absence of other organs; Z98.890 Other specified postprocedural states; Z98.1 Arthrodesis status; Z87.39 Personal history of other diseases of the musculoskeletal system and connective tissue; Z98.41 Cataract extraction status, right eye; Z98.42 Cataract extraction status, left eye; Z96.652 Presence of left artificial knee joint; Z82.49 Family history of ischemic heart disease and other diseases of the circulatory system; Z81.2 Family history of tobacco abuse and dependence; Z82.69 Family history of other diseases of the musculoskeletal system and connective tissue; Z82.5 Family history of asthma and other chronic lower respiratory diseases; Z80.49 Family history of malignant neoplasm of other genital organs
CPT/HCPCS: 27130; 97116 ×2; 97161; 97165; 86891; 80053; 85025; 88300; 73501; C1776; J2250; J0171; J1200; J1644; J1100; J0690 ×2; J2405; J3010; J1885; J1170 ×3; J2795; J2704; J0735; 86850; 86900; 86901

== ENCOUNTER 2019-07-06 08:55 | Inpatient (IN) | payer MEDICARE, BC ==
[2019-07-06] MEDS ORDERED: ACETAMINOPHEN TAB 500 MG TAB PO STA (09:27)
--- NOTE | 2019-07-06 09:31 | ED ---
General Adult HPI - General Chief complaint: Fall Stated complaint: RT hip pain-post op Time Seen by Provider: 07/06/19 08:57 Source: patient, RN notes reviewed Mode of arrival: EMS Limitations: no limitations - History of Present Illness Initial comments: Patient is a pleasant 73-year-old male presenting to the emergency department complaints of right hip pain. Patient is approximately a couple of weeks post right hip surgery with Dr. Choi. Patient has had increased pain since that time. Patient has had fever the past couple of days. Patient did have a fall today with even further increase of pain of the right hip. No cough. No chest pain. No abdominal pain. No upper a story symptoms. No urinary symptoms. - Related Data Home Medications Medication Instructions Recorded Confirmed Atorvastatin Calcium [Lipitor] 40 mg PO QAM 11/01/14 07/06/19 sitaGLIPtin PHOS/metFORMIN HCL 1 tab PO DAILY@1200 06/08/17 07/06/19 [Janumet 50-1,000 mg Tablet] Atenolol 50 mg PO DAILY 05/25/18 07/06/19 Hydrocodone/Acetaminophen 1 tab PO TID PRN 11/23/18 07/06/19 [Hydrocodone-Acetamin 10-300 mg] Previous Rx's Medication Instructions Recorded Aspirin 325 mg PO BID #60 tab 06/21/19 Sennosides-Docusate Sodium 2 tab PO DAILY #30 tablet 06/21/19 [Senokot-S] Valsartan [Diovan] 160 mg PO DAILY@0600 tab 06/22/19 Allergies Allergy/AdvReac Type Severity Reaction Status Date / Time No Known Allergies Allergy Verified 07/06/19 11:47 Review of Systems ROS Statement: Those systems with pertinent positive or pertinent negative responses have been documented in the HPI. ROS Other: All systems not noted in ROS Statement are negative. Constitutional: Reports: fever, chills Eyes: Denies: eye pain ENT: Denies: ear pain Respiratory: Denies: cough, dyspnea Cardiovascular: Denies: chest pain Gastrointestinal: Denies: abdominal pain, nausea, vomiting Genitourinary: Denies: dysuria Musculoskeletal: Reports: arthralgia Skin: Reports: rash Neurological: Denies: weakness Past Medical History Past Medical History: Coronary Artery Disease (CAD), Cancer, Chest Pain / Angin a, Diabetes Mellitus, GERD/Reflux, Hyperlipidemia, Hypertension, Osteoarthritis (OA), Prostate Disorder Additional Past Medical History / Comment(s): 5 Herniated discs in neck causing headaches & numbness in arm and right lower back and pain and right leg pain. Hx 4 fx ribs, current Prostate Cancer- last radiation tx Mar 25-2016 had total of 44 tx. occ constipation, Last Myocardial Infarction Date:: UNKOWN History of Any Multi-Drug Resistant Organisms: None Reported Past Surgical History: Adenoidectomy, Heart Catheterization, Heart Catheterization With Stent, Joint Replacement, Orthopedic Surgery, Prostate Surgery, Tonsillectomy Additional Past Surgical History / Comment(s): PROSTATE BX., LT. KNEE ARTHROSCOPY X 2, CERVICAL FUSIONS, COLONOSCOPY, ÁNGEL. CATARTACTS.Pain Procedures , rt radio frequency procedures. , total 2 heart stents, hemorrhoidectomy,heart cath August 2017-lt knee replacement Past Anesthesia/Blood Transfusion Reactions: No Reported Reaction Additional Past Anesthesia/Blood Transfusion Reaction / Comment(s): doesn't like enclosed tight spaces Date of Last Stent Placement:: 04/24/17 Past Psychological History: No Psychological Hx Reported Smoking Status: Former smoker Past Alcohol Use History: None Reported Past Drug Use History: None Reported - Past Family History Father Additional Family Medical History / Comment(s): Father at age 49 from coronary artery disease. Brother(s) Additional Family Medical History / Comment(s): Patient has one brother with history of smoking and no other major medical problems. Patient does not have any sisters. Daughter(s) Additional Family Medical History / Comment(s): He has one daughter alive in [place] with no major medical problems. Patient has one daughter with history of muscular dystrophy and of pneumonia. Son(s) Family Medical History: No Reported History Additional Family Medical History / Comment(s): Patient has one son with no yanira r medical problems. Mother Family Medical History: Cancer Additional Family Medical History / Comment(s): Mother at age 81 from uterine cancer with metastatic disease. General Exam Limitations: no limitations General appearance: alert, in no apparent distress Head exam: Present: normocephalic Eye exam: Present: normal appearance, PERRL ENT exam: Present: normal oropharynx Neck exam: Present: normal inspection Respiratory exam: Present: normal lung sounds bilaterally Cardiovascular Exam: Present: regular rate, normal rhythm Expanded Peripheral pulses: 2+: Dorsalis Pedis (R), Dorsalis Pedis (L) GI/Abdominal exam: Present: soft. Absent: tenderness Extremities exam: Present: full ROM (Pain with straightening of the right leg.), tenderness (Right lateral hip), other (Right anterior hip incision with warmth and erythema.) Neurological exam: Present: alert. Absent: motor sensory deficit Psychiatric exam: Present: normal affect, normal mood Skin exam: Present: erythema (Right anterior hip) Course Vital Signs 07/06/19 07/06/19 07/06/19 09:02 10:40 11:10 Temperature 101.9 F H 99.9 F H Pulse Rate 120 H 91 Respiratory 20 18 Rate Blood Pressure 99/66 95/56 101/47 O2 Sat by Pulse 94 L 96 96 Oximetry 07/06/19 11:42 Temperature Pulse Rate 96 Respiratory 18 Rate Blood Pressure 99/66 O2 Sat by Pulse 95 Oximetry - Reevaluation(s) Reevaluation #1: 07/06/19 11:07 ideal body weight calculated at 83.5 kg. Fluid bolus is 2500 ml 07/06/19 11:08 Patient does meet sepsis criteria diagnosed at 11:00 AM. Blood culture and lactic acid and fluid bolus and IV antibiotics have all been ordered. EKG Findings - EKG Comments: EKG Findings:: Sinus tachycardia 110. DC 206. QRS 80. QT 320. QTc 433. Normal axis. Normal QRS. Non specific T waves. Procedures - Sepsis Sepsis Focused Exam #1 Time Sepsis Criteria Met: 11:00 Sepsis Focused Exam Date: 07/06/19 Sepsis Focused Exam Time: 12:00 Sepsis Focused Exam Complete: Yes Vital Signs & RN Notes Reviewed: Yes Capillary Refill: < 2 Seconds: Fingers, Toes Peripheral Pulses: Normal: Dorsalis Pedis (R), Dorsalis Pedis (L) Skin Color: Normal for Patient Respiratory Exam: normal lung sounds Cardiovascular Exam: tachycardia Medical Decision Making - Medical Decision Making Patient reevaluated and updated. Case was discussed with practitioner Phyllis with Dr. Choi who will admit however does prefer medical admission. Case was also discussed with Dr. Obrien, who will admit coming for Dr. Astudillo. - Lab Data Result diagrams: 07/06/19 09:32 07/06/19 09:32 Lab Results 07/06/19 07/06/19 07/06/19 Range/Units 09:28 09:32 09:32 WBC 9.7 (3.8-10.6) k/uL RBC 3.63 L (4.30-5.90) m/uL Hgb 12.0 L (13.0-17.5) gm/dL Hct 34.8 L (39.0-53.0) % MCV 95.9 (80.0-100.0) fL MCH 33.1 (25.0-35.0) pg MCHC 34.5 (31.0-37.0) g/dL RDW 13.5 (11.5-15.5) % Plt Count 118 L (150-450) k/uL Neutrophils % 88 % Lymphocytes % 4 % Monocytes % 5 % Eosinophils % 0 % Basophils % 0 % Neutrophils # 8.5 H (1.3-7.7) k/uL Lymphocytes # 0.4 L (1.0-4.8) k/uL Monocytes # 0.5 (0-1.0) k/uL Eosinophils # 0.0 (0-0.7) k/uL Basophils # 0.0 (0-0.2) k/uL PT 11.4 (9.0-12.0) sec INR 1.1 (<1.2) APTT 23.2 (22.0-30.0) sec Sodium 133 L (137-145) mmol/L Potassium 4.2 (3.5-5.1) mmol/L Chloride 98 (98-107) mmol/L Carbon Dioxide 22 (22-30) mmol/L Anion Gap 13 mmol/L BUN 42 H (9-20) mg/dL Creatinine 1.52 H (0.66-1.25) mg/dL Est GFR (CKD-EPI)AfAm 52 (>60 ml/min/1.73 sqM) Est GFR (CKD-EPI)NonAf 45 (>60 ml/min/1.73 sqM) Glucose 207 H (74-99) mg/dL Plasma Lactic Acid Rob (0.7-2.0) mmol/L Calcium 7.9 L (8.4-10.2) mg/dL Total Bilirubin 3.3 H (0.2-1.3) mg/dL AST 30 (17-59) U/L ALT 30 (4-49) U/L Alkaline Phosphatase 39 (38-126) U/L Total Protein 5.7 L (6.3-8.2) g/dL Albumin 3.4 L (3.5-5.0) g/dL Influenza Type A RNA (Not Detectd) Influenza Type B (PCR) (Not Detectd) 07/06/19 07/06/19 Range/Units 09:32 09:32 WBC (3.8-10.6) k/uL RBC (4.30-5.90) m/uL Hgb (13.0-17.5) gm/dL Hct (39.0-53.0) % MCV (80.0-100.0) fL MCH (25.0-35.0) pg MCHC (31.0-37.0) g/dL RDW (11.5-15.5) % Plt Count (150-450) k/uL Neutrophils % % Lymphocytes % % Monocytes % % Eosinophils % % Basophils % % Neutrophils # (1.3-7.7) k/uL Lymphocytes # (1.0-4.8) k/uL Monocytes # (0-1.0) k/uL Eosinophils # (0-0.7) k/uL Basophils # (0-0.2) k/uL PT (9.0-12.0) sec INR (<1.2) APTT (22.0-30.0) sec Sodium (137-145) mmol/L Potassium (3.5-5.1) mmol/L Chloride (98-107) mmol/L Carbon Dioxide (22-30) mmol/L Anion Gap mmol/L BUN (9-20) mg/dL Creatinine (0.66-1.25) mg/dL Est GFR (CKD-EPI)AfAm (>60 ml/min/1.73 sqM) Est GFR (CKD-EPI)NonAf (>60 ml/min/1.73 sqM) Glucose (74-99) mg/dL Plasma Lactic Acid Rob 4.0 H* (0.7-2.0) mmol/L Calcium (8.4-10.2) mg/dL Total Bilirubin (0.2-1.3) mg/dL AST (17-59) U/L ALT (4-49) U/L Alkaline Phosphatase (38-126) U/L Total Protein (6.3-8.2) g/dL Albumin (3.5-5.0) g/dL Influenza Type A RNA Not Detected (Not Detectd) Influenza Type B (PCR) Not Detected (Not Detectd) - Radiology Data Radiology results: image reviewed (X-ray of the right hip and pelvis shows no acute process postoperative changes. Chest x-ray: Cannot rule out changes left costophrenic angle. Suspect atelectasis.) Critical Care Time Critical Care Time: Yes Total Critical Care Time: 34 Disposition Clinical Impression: Right hip pain, Septic shock Disposition: ADMITTED IP TO THIS [facility] Condition: Serious Is patient prescribed a controlled substance at d/c from ED?: No Referrals: German Astudillo MD [Primary Care Provider] - 1-2 days Decision Time: 11:10
[2019-07-06 09:45] LABS: Basophils % (A) 0 %; Eosinophils % (A) 0 %; HCT 34.8 % (39.0-53.0); Lymphocytes # (A) 0.4 k/uL (1.0-4.8); Lymphocytes % (A) 4 %; MCH 33.1 pg (25.0-35.0); MCHC 34.5 g/dL (31.0-37.0); MCV 95.9 fL (80.0-100.0); Mean Platelet Volume 7.8; Monocytes # (A) 0.5 k/uL (0-1.0); Monocytes % (A) 5 %; Neutrophils # (A) 8.5 k/uL (1.3-7.7); Neutrophils % (A) 88 %; Platelet Count 118 k/uL (150-450); RBC 3.63 m/uL (4.30-5.90); RDW 13.5 % (11.5-15.5); WBC 9.7 k/uL (3.8-10.6)
[2019-07-06] MEDS: SODIUM CHLORIDE 0.9% 1,000 ML IV SCH ×2 (09:53→11:54)
[2019-07-06 09:56] LABS: Albumin 3.4 g/dL (3.5-5.0); Calcium 7.9 mg/dL (8.4-10.2); Potassium 4.2 mmol/L (3.5-5.1); Total Bilirubin 3.3 mg/dL (0.2-1.3); Total Protein 5.7 g/dL (6.3-8.2)
[2019-07-06 10:06] LABS: INR 1.1 (<1.2); Partial Thromboplastin Time 23.2 sec (22.0-30.0); Prothrombin Time 11.4 sec (9.0-12.0)
--- NOTE | 2019-07-06 11:02 | XR ---
EXAMINATION TYPE: XR Hip RT and AP Pelvis DATE OF EXAM: 07/06/2019 COMPARISON: Plain film 06/20/2019 HISTORY: Trauma and pain TECHNIQUE: A single AP view of the pelvis is obtained. Two views of the right hip are obtained. FINDINGS: There is no acute fracture/dislocation evident in the pelvis. The hip and sacroiliac join ts appear symmetric and unremarkable. The overlying soft tissue appears unremarkable. Two views of right hip show no acute fracture or dislocation. No focal lytic or sclerotic lesion see n in the proximal right femur. The overlying soft tissue is unremarkable. Patient is status post ri ght hip arthroplasty. There are vascular calcifications. Ossific densities noted lateral to the joint are well-corticated and not felt likely to be acute. Degenerative disc changes are present lumbar sp ine. Vascular calcifications present pelvis. IMPRESSION: There is no acute fracture or dislocation in the pelvis or right hip.
--- NOTE | 2019-07-06 11:04 | XR ---
EXAMINATION TYPE: XR chest 2V DATE OF EXAM: 07/06/2019 COMPARISON: Prior chest x-ray 04/22/2017 HISTORY: Fever TECHNIQUE: Frontal and lateral views of the chest are obtained. FINDINGS: There is no focal air space opacity, pleural effusion, or pneumothorax seen. The cardiac silhouette size is within normal limits. The osseous structures are intact. There are overlying car diac leads. Lung volumes are low. There is blunting the left costophrenic angle. Suspect some minimal subsegmental basilar atelectatic change. Right hemidiaphragm is elevated. IMPRESSION: Difficult to exclude lower lobe airspace disease in the basis of this exam. Patient rota tion may account for abnormal appearance of the left costophrenic angle. Follow-up as indicated.
[2019-07-06] MEDS ORDERED: SODIUM CHLORIDE 0.9% 500 ML 500 ML IV STA (11:08)
[2019-07-06] MEDS ORDERED: AMPICILLIN-SULBACTAM 3 GM in SODIUM CHLORIDE 0.9% 100 ML IVPB STA (11:08)
[2019-07-06] MEDS ORDERED: SODIUM CHLORIDE 0.9% 1,000 ML IV STA ×2 (11:08)
[2019-07-06] MEDS ORDERED: NALOXONE 0.4 MG/ML 1 ML VIAL IV PRN (12:01)
[2019-07-06] MEDS ORDERED: MORPHINE SULFATE 2 MG/ML SYRINGE IV PRN (12:01)
[2019-07-06] MEDS ORDERED: MORPHINE SULFATE 4 MG/ML SYRINGE IV PRN ×2 (12:01)
[2019-07-06] MEDS ORDERED: ACETAMINOPHEN TAB 325 MG TAB PO PRN (12:01)
[2019-07-06] MEDS ORDERED: VANCOMYCIN IV PER PHARMACY 1 EACH MISC MISCELLANE PRN (12:39)
[2019-07-06] MEDS ORDERED: VANCOMYCIN 1,250 MG in SODIUM CHLORIDE 0.9% 250 ML IVPB SCH (12:45)
--- NOTE | 2019-07-06 12:51 | P.HPIM ---
History of Present Illness H&P Date: 07/06/19 Chief Complaint: hip pain with fever 73-year-old male with past medical history of coronary artery disease with the previous history of RCA stenting and PCI involving the obtuse marginal, history of hypertension and hypertensive cardiovascular disease with LVH, type 2 diabetes, hyperlipidemia, history of prostate cancer status post radiation, history of osteoarthritis who was admitted on the 06/20/2019 for a right hip arthroplasty, minimal erythema and swelling was noted on the day of discharge on 06/21. Patient comes in today after he had a fall at home when he was trying to get up to go to the bathroom. Patient is using his walker to walk around the house and is having difficulty with mobility with short distances. Patient in extreme pain and was unable to come out of his bed yesterday. He had nothing by mouth for 2 days due to weakness and unable to come out of that. Patient was found to have a temp of 101.9 in the ER with a heart rate of 120 sinus tachycardia blood pressure is 99/66 on admission. Lactic acid 4. Patient is admitted with sepsis likely secondary to a septic joint. 3 L of IV fluids that with the vancomycin and Unasyn . Infectious disease consulted. ESR CRP, CBC, repeat lactic acid, CMP tomorrow. Continue IV fluids at 75 mL per hour Review of Systems Constitutional: Endorses chills, endorses fever, endorses lethargy, endorses malaise, endorses poor appetite Eyes: denies decreased vision, denies diplopia, denies discharge, denies pain Ears: deny: decreased hearing Ears, nose, mouth and throat: Denies dental pain, Denies headache, Denies nasal discharge, Denies nose pain Cardiovascular: Denies chest pain, Denies decreased exercise tolerance, Denies edema, Denies high blood pressure, Denies irregular heart beat, Denies palpitations, Denies paroxysmal nocturnal dyspnea, Denies rapid heart beat, Denies shortness of breath Respiratory: Denies congestion, Denies cough, Denies cough with sputum, Denies dyspnea, Denies home oxygen, Denies wheezing Gastrointestinal: Denies abdominal pain, Denies change in bowel habits, Denies coffee ground emesis, Denies early satiety, Denies excessive gas, Denies heartburn, Denies hematemesis, Denies hematochezia, Denies loss of appetite, Denies nausea, Denies vomiting Genitourinary: Denies dysuria, Denies flank pain, Denies kidney stones, Denies menorrhagia, Denies urgency, Denies urinary frequency Musculoskeletal: Endorses endorses gait dysfunction, Denies limitation of motion right lower extremity, Denies morning stiffness, Denies muscle cramps Integumentary: Denies rash, Denies wounds, Denies brittle nails, Denies change in hair/nails, Denies darkening of skin Neurological: Denies balance difficulties, Denies change in speech, Denies double vision, Denies gait dysfunction, Denies loss of vision, Denies motor disturbance, Denies numbness, Denies paralysis, Denies paresthesias, Denies s eizures Psychiatric: Denies anxiety, Denies depression Endocrine: Denies excessive sweating, Denies excessive thirst, Denies high blood sugars, Denies palpitations Hematologic/Lymphatic: Denies easy bruising, Denies lymphadenopathy Past Medical History Past Medical History: Coronary Artery Disease (CAD), Cancer, Chest Pain / Angina, Diabetes Mellitus, GERD/Reflux, Hyperlipidemia, Hypertension, Osteoarthritis (OA), Prostate Disorder Additional Past Medical History / Comment(s): 5 Herniated discs in neck causing headaches & numbness in arm and right lower back and pain and right leg pain. Hx 4 fx ribs, current Prostate Cancer- last radiation tx Mar 25-2016 had total of 44 tx. occ constipation, Last Myocardial Infarction Date:: UNKOWN History of Any Multi-Drug Resistant Organisms: None Reported Past Surgical History: Adenoidectomy, Heart Catheterization, Heart Catheterization With Stent, Joint Replacement, Orthopedic Surgery, Prostate Surgery, Tonsillectomy Additional Past Surgical History / Comment(s): PROSTATE BX., LT. KNEE ARTHROSCOPY X 2, CERVICAL FUSIONS, COLONOSCOPY, ÁNGEL. CATARTACTS.Pain Procedures , rt radio frequency procedures. , total 2 heart stents, hemorrhoidectomy,heart cath August 2017-lt knee replacement Past Anesthesia/Blood Transfusion Reactions: No Reported Reaction Additional Past Anesthesia/Blood Transfusion Reaction / Comment(s): doesn't like enclosed tight spaces Date of Last Stent Placement:: 04/24/17 Past Psychological History: No Psychological Hx Reported Smoking Status: Former smoker Past Alcohol Use History: None Reported Past Drug Use History: None Reported - Past Family History Father Additional Family Medical History / Comment(s): Father at age 49 from coronary artery disease. Brother(s) Additional Family Medical History / Comment(s): Patient has one brother with history of smoking and no other major medical problems. Patient does not have any sisters. Daughter(s) Additional Family Medical History / Comment(s): He has one daughter alive in [place] with no major medical problems. Patient has one daughter with history of muscular dystrophy and of pneumonia. Son(s) Family Medical History: No Reported History Additional Family Medical History / Comment(s): Patient has one son with no major medical problems. Mother Family Medical History: Cancer Additional Family Medical History / Comment(s): Mother at age 81 from uterine cancer with metastatic disease. Medications and Allergies Home Medications Medication Instructions Recorded Confirmed Type Atorvastatin Calcium [Lipitor] 40 mg PO QAM 11/01/14 07/06/19 History sitaGLIPtin PHOS/metFORMIN HCL 1 tab PO DAILY@1200 06/08/17 07/06/19 History [Janumet 50-1,000 mg Tablet] Atenolol 50 mg PO DAILY 05/25/18 07/06/19 History Hydrocodone/Acetaminophen 1 tab PO TID PRN 11/23/18 07/06/19 History [Hydrocodone-Acetamin 10-300 mg] Aspirin 325 mg PO BID #60 tab 06/21/19 07/06/19 Rx Sennosides-Docusate Sodium 2 tab PO DAILY #30 tablet 06/21/19 07/06/19 Rx [Senokot-S] Valsartan [Diovan] 160 mg PO DAILY@0600 tab 06/22/19 07/06/19 Rx Allergies Allergy/AdvReac Type Severity Reaction Status Date / Time No Known Allergies Allergy Verified 07/06/19 11:47 Physical Exam Vitals: Vital Signs Temp Pulse Resp BP Pulse Ox 07/06/19 12:02 99.4 F 91 16 115/74 96 07/06/19 11:42 96 18 99/66 95 07/06/19 11:10 91 18 101/47 96 07/06/19 10:40 99.9 F H 95/56 96 07/06/19 09:02 101.9 F H 120 H 20 99/66 94 L Intake and Output 07/05/19 07/06/19 07/06/19 22:59 06:59 14:59 Other: Weight 108.862 kg - Constitutional General appearance: cooperative, no acute distress, obese - EENT Eyes: anicteric sclerae, PERRLA, normal appearance ENT: hearing grossly normal - Neck Neck: no lymphadenopathy, normal ROM, no other, no rigidity, no stridor, no thyromegaly - Respiratory Respiratory: bilateral: CTA, negative: diminished, dullness, rales, rhonchi - Cardiovascular Rhythm: regular Heart sounds: normal: S1, S2 Abnormal Heart Sounds: no systolic murmur, no diastolic murmur, no rub, no S3 Gallop, no S4 Gallop, no click, no other - Gastrointestinal General gastrointestinal: normal bowel sounds, soft - Integumentary Integumentary: no rash - Neurologic Neurologic: CNII-XII intact - Musculoskeletal Musculoskeletal: Limited movement in the right lower extremity hip in flexion with pain on extending the knee, redness and swelling noted in the right upper thigh with scabbed wound no drainage noted, mild tenderness to touch Limited - Psychiatric Psychiatric: A&O x's 3, appropriate affect Results CBC & Chem 7: 07/06/19 09:32 07/06/19 09:32 Labs: Abnormal Lab Results - Last 24 Hours (Table) 07/06/19 07/06/19 07/06/19 Range/Units 09:32 09:32 09:32 RBC 3.63 L (4.30-5.90) m/uL Hgb 12.0 L (13.0-17.5) gm/dL Hct 34.8 L (39.0-53.0) % Plt Count 118 L (150-450) k/uL Neutrophils # 8.5 H (1.3-7.7) k/uL Lymphocytes # 0.4 L (1.0-4.8) k/uL Sodium 133 L (137-145) mmol/L BUN 42 H (9-20) mg/dL Creatinine 1.52 H (0.66-1.25) mg/dL Glucose 207 H (74-99) mg/dL Plasma Lactic Acid Rob 4.0 H* (0.7-2.0) mmol/L Calcium 7.9 L (8.4-10.2) mg/dL Total Bilirubin 3.3 H (0.2-1.3) mg/dL Total Protein 5.7 L (6.3-8.2) g/dL Albumin 3.4 L (3.5-5.0) g/dL Thrombosis Risk Factor Assmnt - DVT/VTE Prophylaxis DVT/VTE Prophylaxis: Pharmacologic Prophylaxis ordered Assessment and Plan Plan: #1 sepsis likely secondary to soft tissue infection versus septic joint. ESR, CRP ordered. Lactic acid for repeat lactic acid in 6 hours. Status post 3 L IV fluid continue fluid at 75 mL per hour. Vancomycin and Unasyn. Infectious disease consulted. Orthopedics consulted #2 hypertension and hypertensive cardiovascular disease. Blood pressure low we will hold patient's atenolol and valsartan #3 coronary artery disease status poor RCA stenting in 2000 and PCI of the obtuse Marginal in 2018. Aspirin 81 mg by mouth daily continue Lipitor 40 mg oral daily. #4 diabetes type 2. Hold metformin and Januvia. Insulin sliding scale. #5 hyperlipidemia continue Lipitor at 40 mg oral daily #6 history of prostate cancer status post radiation therapy currently in remission #7 GERD continue PPI #8 disposition patient would need 1-2 inpatient nights for stabilization and probably would need discharge to a rehab as outpatient. PTOT consult #9 CODE STATUS full code #10 DVT prophylaxis with heparin every 12
--- NOTE | 2019-07-06 13:01 | P.CNOR ---
History of Present Illness - [facility] Consult date: 07/06/19 Consult reason: other (Recent right total hip arthroplasty with increased pain and fever. Fall this morning. ) History of present illness: The patient is a 73 y/o male with a history of CAD, hypertension, diabetes type II, hyperlipidemia, and prostate cancer, who presented to the emergency department today after sustaining a fall at home this morning. He is status post right anterior total hip arthroplasty with Dr. Raji Choi on 06/20/2019. The patient was discharged home on 06/22/2019 and he was doing well at home until he developed a fever a couple days ago. He states he hasn't eaten in 2 days and took a sip of water with his medications this morning. He has been very weak as well. The patient is able to bear weight onto his right leg but it is painful and he is unable to straighten the hip due to severe pain. Upon exam in the ER, x-rays were taken of the hip and pelvis that are negative for fracture. WBC is 9.7 and lactic acid is 4.0. He also had a fever, elevated heart rate, and low blood pressure. IV fluids and antibiotics were given. Influenza testing is negative. CRP and Sed rate are pending. The patient was admitted to internal medicine with consults to orthopedics, critical care, and infectious disease. Review of Systems Constitutional: Reports chills, Reports fatigue, Reports fever, Reports malaise Cardiovascular: Denies chest pain, Denies shortness of breath Respiratory: Denies cough Gastrointestinal: Denies diarrhea, Denies nausea, Denies vomiting Musculoskeletal: right: hip pain, hip stiffness, hip swelling Past Medical History Past Medical History: Coronary Artery Disease (CAD), Cancer, Chest Pain / Angina, Diabetes Mellitus, GERD/Reflux, Hyperlipidemia, Hypertension, Osteoar thritis (OA), Prostate Disorder Additional Past Medical History / Comment(s): 5 Herniated discs in neck causing headaches & numbness in arm and right lower back and pain and right leg pain. Hx 4 fx ribs, current Prostate Cancer- last radiation tx Mar 25 had total of 44 tx. occ constipation, Last Myocardial Infarction Date:: UNKOWN History of Any Multi-Drug Resistant Organisms: None Reported Past Surgical History: Adenoidectomy, Heart Catheterization, Heart Catheterization With Stent, Joint Replacement, Orthopedic Surgery, Prostate Surgery, Tonsillectomy Additional Past Surgical History / Comment(s): PROSTATE BX., LT. KNEE ARTHROSCOPY X 2, CERVICAL FUSIONS, COLONOSCOPY, ÁNGEL. CATARTACTS.Pain Procedures , rt radio frequency procedures. , total 2 heart stents, hemorrhoidectomy,heart cath August 2017-lt knee replacement Past Anesthesia/Blood Transfusion Reactions: No Reported Reaction Additional Past Anesthesia/Blood Transfusion Reaction / Comm: doesn't like enclosed tight spaces Date of Last Stent Placement:: 04/24/17 Past Psychological History: No Psychological Hx Reported Smoking Status: Former smoker Past Alcohol Use History: None Reported Past Drug Use History: None Reported - Past Family History Father Additional Family Medical History / Comment(s): Father at age 49 from coronary artery disease. Brother(s) Additional Family Medical History / Comment(s): Patient has one brother with h istory of smoking and no other major medical problems. Patient does not have any sisters. Daughter(s) Additional Family Medical History / Comment(s): He has one daughter alive in [place] with no major medical problems. Patient has one daughter with history of muscular dystrophy and of pneumonia. Son(s) Family Medical History: No Reported History Additional Family Medical History / Comment(s): Patient has one son with no major medical problems. Mother Family Medical History: Cancer Additional Family Medical History / Comment(s): Mother at age 81 from uterine cancer with metastatic disease. Medications and Allergies Home Medications Medication Instructions Recorded Confirmed Type Atorvastatin Calcium [Lipitor] 40 mg PO QAM 11/01/14 07/06/19 History sitaGLIPtin PHOS/metFORMIN HCL 1 tab PO DAILY@1200 06/08/17 07/06/19 History [Janumet 50-1,000 mg Tablet] Atenolol 50 mg PO DAILY 05/25/18 07/06/19 History Hydrocodone/Acetaminophen 1 tab PO TID PRN 11/23/18 07/06/19 History [Hydrocodone-Acetamin 10-300 mg] Aspirin 325 mg PO BID #60 tab 06/21/19 07/06/19 Rx Sennosides-Docusate Sodium 2 tab PO DAILY #30 tablet 06/21/19 07/06/19 Rx [Senokot-S] Valsartan [Diovan] 160 mg PO DAILY@0600 tab 06/22/19 07/06/19 Rx Allergies Allergy/AdvReac Type Severity Reaction Status Date / Time No Known Allergies Allergy Verified 07/06/19 11:47 Physical Examination The patient appears to be no acute distress but is grimacing in pain at times. Alert and orientated x3. Incision appears scabbed with surrounding erythema and swelling to the anterior thigh. No active drainage at this time. There is pain to palpation of the thigh but the upper leg is soft. There is severe pain to any range of motion of the right passively and actively. Calf is soft and nontender. Good foot and ankle motion without difficulty. Sensation and circulatory status is intact. Results - Labs Labs: Abnormal Lab Results - Last 24 Hours (Table) 07/06/19 07/06/19 07/06/19 Range/Units 09:32 09:32 09:32 RBC 3.63 L (4.30-5.90) m/uL Hgb 12.0 L (13.0-17.5) gm/dL Hct 34.8 L (39.0-53.0) % Plt Count 118 L (150-450) k/uL Neutrophils # 8.5 H (1.3-7.7) k/uL Lymphocytes # 0.4 L (1.0-4.8) k/uL Sodium 133 L (137-145) mmol/L BUN 42 H (9-20) mg/dL Creatinine 1.52 H (0.66-1.25) mg/dL Glucose 207 H (74-99) mg/dL Plasma Lactic Acid Rob 4.0 H* (0.7-2.0) mmol/L Calcium 7.9 L (8.4-10.2) mg/dL Total Bilirubin 3.3 H (0.2-1.3) mg/dL Total Protein 5.7 L (6.3-8.2) g/dL Albumin 3.4 L (3.5-5.0) g/dL H & H 07/06/19 Range/Units 09:32 Hgb 12.0 L (13.0-17.5) gm/dL Hct 34.8 L (39.0-53.0) % Coagulation 07/06/19 Range/Units 09:28 INR 1.1 (<1.2) Result Diagrams: 07/06/19 09:32 07/06/19 09:32 - Diagnostic results Hip x-ray: image reviewed (X-rays of the right hip and pelvis reveal no acute fractures seen. Components in good position and alignment. ) Assessment and Plan (1) Septic shock Current Visit: Yes Status: Acute Code(s): A41.9 - SEPSIS, UNSPECIFIED ORGA NISM; R65.21 - SEVERE SEPSIS WITH SEPTIC SHOCK SNOMED Code(s): 76524949 (2) Diabetes mellitus type II, controlled Current Visit: No Status: Acute Code(s): E11.9 - TYPE 2 DIABETES MELLITUS WITHOUT COMPLICATIONS SNOMED Code(s): 91130844 (3) Status post right hip replacement Current Visit: No Status: Acute Code(s): Z96.641 - PRESENCE OF RIGHT ARTIFICIAL HIP JOINT SNOMED Code(s): 061202935 Plan: The clinical and x-ray findings were discussed with the patient. The case was discussed with Dr. Raji Choi. The hip may be infected and needs to be opened as soon as possible to improve the patient's sepsis. The patient will remain NPO. He will undergo an I&D of the right hip this afternoon by Dr. Raji Choi. Await infectious disease consult for further antibiotic recommendations. He is currently on Unasyn and vancomycin. We will continue to follow the patient closely and make further recommendations as needed.
[2019-07-06 13:39] LABS: Glucose,Whole Blood 145 mg/dL (75-99)
[2019-07-06] MEDS ORDERED: VANCOMYCIN 1,750 MG in SODIUM CHLORIDE 0.9% 500 ML 500 ML IVPB SCH (14:00)
--- NOTE | 2019-07-06 15:47 | P.CNPUL ---
History of Present Illness Consult date: 07/06/19 Reason for consult: other (Septic hip joint and sepsis) Chief complaint: Hip pain and fever. History of present illness: This is a 73-year-old white male with history of multiple medical problems including coronary artery disease, previous stenting of RCA, and PCI involving the obtuse marginal. History of type 2 diabetes, hypertension, dyslipidemia, prostate cancer treated with radiation, and history of degenerative joint disease. On 06/20/19, patient underwent the right hip arthroplasty. Yesterday, the patient fell while he was going to the bathroom, and has been noticing severe pain and redness in the right hip area and the right groin. Brought into the ER, noted to have a temp of 101.9. He was also tachycardic, and had a marginal blood pressure. Lactic acid was 4. Patient was given fluid boluses, did not require any pressors, he was placed on vancomycin and Unasyn, and he was seen by orthopedic surgery on consultation, the plan is to take the patient to surgery today. Patient will undergo incision and drainage of right hip this afternoon. In the meantime the patient remains hemodynamically stable, and started on antibiotics as above. Patient denies any shortness of breath denies any cough no wheezing he does have fever and chills, denies any chest pain hemoptysis no nausea vomiting or abdominal pain. Denies any dysuria frequency or urgency. Review of Systems Constitutional: Fever, chills, no weight loss. HEENT: Denies any sore throat, earache, denies any headache. Pulmonary: Denies any shortness of breath cough or wheezing Cardiac: Denies any chest pain orthopnea PND or palpitations. GI: Denies any nausea vomiting abdominal pain. Genitourinary: Denies any dysuria frequency urgency hematuria Musculoskeletal as noted in HPI mostly right hip pain Skin: Denies any rashes although he has been noticing redness in the area of the right groin. Psychiatric: Denies any symptoms of active depression Hematologic: Denies any clotting bleeding or bruising Endocrine denies any heat or cold intolerance Lymphatics: Denies any lymphadenopathy. Past Medical History Past Medical History: Coronary Artery Disease (CAD), Cancer, Chest Pain / Angina, Diabetes Mellitus, GERD/Reflux, Hyperlipidemia, Hypertension, Osteoarthritis (OA), Prostate Disorder Additional Past Medical History / Comment(s): 5 Herniated discs in neck causing headaches & numbness in arm and right lower back and pain and right leg pain. Hx 4 fx ribs, current Prostate Cancer- last radiation tx Mar 25-2016 had total of 44 tx. occ constipation, Last Myocardial Infarction Date:: UNKOWN History of Any Multi-Drug Resistant Organisms: None Reported Past Surgical History: Adenoidectomy, Heart Catheterization, Heart Catheterization With Stent, Joint Replacement, Orthopedic Surgery, Prostate Surgery, Tonsillectomy Additional Past Surgical History / Comment(s): PROSTATE BX., LT. KNEE ARTHROSCOPY X 2, CERVICAL FUSIONS, COLONOSCOPY, ÁNGEL. CATARTACTS.Pain Procedures , rt radio frequency procedures. , total 2 heart stents, hemorrhoidectomy,heart cath August 2017-lt knee replacement Past Anesthesia/Blood Transfusion Reactions: No Reported Reaction Additional Past Anesthesia/Blood Transfusion Reaction / Comment(s): doesn't like enclosed tight spaces Date of Last Stent Placement:: 04/24/17 Past Psychological History: No Psychological Hx Reported Smoking Status: Former smoker Past Alcohol Use History: None Reported Past Drug Use History: None Reported - Past Family History Father Additional Family Medical History / Comment(s): Father at age 49 from coronary artery disease. Brother(s) Additional Family Medical History / Comment(s): Patient has one brother with history of smoking and no other major medical problems. Patient does not have any sisters. Daughter(s) Additional Family Medical History / Comment(s): He has one daughter alive in [place] with no major medical problems. Patient has one daughter with history of muscular dystrophy and of pneumonia. Son(s) Family Medical History: No Reported History Additional Family Medical History / Comment(s): Patient has one son with no major medical problems. Mother Family Medical History: Cancer Additional Family Medical History / Comment(s): Mother at age 81 from uterine cancer with metastatic disease. Medications and Allergies Home Medications Medication Instructions Recorded Confirmed Type Atorvastatin Calcium [Lipitor] 40 mg PO QAM 11/01/14 07/06/19 History sitaGLIPtin PHOS/metFORMIN HCL 1 tab PO DAILY@1200 06/08/17 07/06/19 History [Janumet 50-1,000 mg Tablet] Atenolol 50 mg PO DAILY 05/25/18 07/06/19 History Hydrocodone/Acetaminophen 1 tab PO TID PRN 11/23/18 07/06/19 History [Hydrocodone-Acetamin 10-300 mg] Aspirin 325 mg PO BID #60 tab 06/21/19 07/06/19 Rx Sennosides-Docusate Sodium 2 tab PO DAILY #30 tablet 06/21/19 07/06/19 Rx [Senokot-S] Valsartan [Diovan] 160 mg PO DAILY@0600 tab 06/22/19 07/06/19 Rx Allergies Allergy/AdvReac Type Severity Reaction Status Date / Time No Known Allergies Allergy Verified 07/06/19 11:47 Physical Exam Vitals: Vital Signs Temp Pulse Resp BP Pulse Ox 07/06/19 14:10 106 H 18 125/77 96 07/06/19 13:50 101 H 25 H 101/67 98 07/06/19 12:54 99.4 F 109 H 18 120/69 96 07/06/19 12:50 109 H 18 120/69 96 07/06/19 12:02 99.4 F 91 16 115/74 96 07/06/19 11:42 96 18 99/66 95 07/06/19 11:10 91 18 101/47 96 07/06/19 10:40 99.9 F H 95/56 96 07/06/19 09:02 101.9 F H 120 H 20 99/66 94 L Intake and Output 07/06/19 07/06/19 07/06/19 06:59 14:59 22:59 Intake Total 2675 Balance 2675 Intake: Intake, IV Titration 2675 Amount Ampicillin-Sulbactam 3 gm 100 In Sodium Chloride 0.9% 100 ml @ 200 mls/hr IVPB Q8H [facility] Rx#:[id number] Sodium Chloride 0.9% 1, 75 000 ml @ 75 mls/hr IV . [id number] [facility] Rx#:[id number] Sodium Chloride 0.9% 1, 1000 000 ml @ 999 mls/hr IV . Q1H1M STA Rx#:[id number] Sodium Chloride 0.9% 1, 1000 000 ml @ 999 mls/hr IV . Q1H1M STA Rx#:[id number] Vancomycin 1,750 mg In 500 Sodium Chloride 0.9% 500 ml 500 ml @ 167 mls/hr IVPB Q24H [facility] Rx#: [id number] Other: Weight 108.862 kg Physical Exam: Revealed a 73-year-old white male very pleasant in no distress. Head: Atraumatic, normocephalic. HEENT:[Neck is supple.] [No neck masses.] [No thyromegaly.] [No JVD.] PERRLA, EOMI, no icterus. Chest: [Clear throughout, no crackles, no rhonchi, no wheezes.] Cardiac Exam: [Normal S1 and S2, no S3 gallop, no murmur.] Abdomen: [Soft, nontender, no megaly, no rebound, no guarding, normal bowel sounds.] Extremities: [No clubbing, no edema, no cyanosis.] Neurological Exam: [No focal neurologic deficit.] Alert and oriented 3. Musculoskeletal: Limited movement in the right lower extremity over the hip area, there is evidence of swelling and redness and extremely warm area in the right groin. Psychiatric: Normal mood, affect and normal mental status examination. Skin: Evidence of redness and swelling noted in the right groin area. Results - Laboratory Findings CBC and BMP: 07/06/19 09:32 07/06/19 09:32 PT/INR, D-dimer PT 11.4 sec (9.0-12.0) 07/06/19 09:28 INR 1.1 (<1.2) 07/06/19 09:28 Abnormal lab findings: Abnormal Labs 07/06/19 07/06/19 07/06/19 09:32 09:32 09:32 RBC 3.63 L Hgb 12.0 L Hct 34.8 L Plt Count 118 L Neutrophils # 8.5 H Lymphocytes # 0.4 L Sodium 133 L BUN 42 H Creatinine 1.52 H Glucose 207 H POC Glucose (mg/dL) Plasma Lactic Acid Rob 4.0 H* Calcium 7.9 L Total Bilirubin 3.3 H C-Reactive Protein Total Protein 5.7 L Albumin 3.4 L 07/06/19 07/06/19 09:32 13:37 RBC Hgb Hct Plt Count Neutrophils # Lymphocytes # Sodium BUN Creatinine Glucose POC Glucose (mg/dL) 145 H Plasma Lactic Acid Rob Calcium Total Bilirubin C-Reactive Protein 417.3 H Total Protein Albumin - Diagnostic Findings Chest x-ray: image reviewed (Chest x-ray showed mostly atelectasis of the left lower lobe in the retrocardiac area and right hemidiaphragm elevation) Assessment and Plan Assessment: Impression: Sepsis secondary to septic arthritis of the right hip. Acute septic right hip joint, patient had recent replacement of the right hip. History of benign essential hypertension History of underlying coronary artery disease History of dyslipidemia. History of prostate cancer and previous radiation treatment History of GERD without esophagitis. Type 2 diabetes. Recommendation: Agree with antibiotics Agree with IV fluids Agree with surgical intervention scheduled to be done in the next hour Will monitor the patient in the intensive care unit, We'll continue to follow. Resume home meds. Prognosis is guarded at this point. Time with Patient: Greater than 30
[2019-07-06] MEDS ORDERED: NEOSTIGMINE 1 MG/ML 10 ML VIAL ONE (16:00)
[2019-07-06] MEDS ORDERED: ONDANSETRON 4 MG/2 ML VIAL ONE (16:00)
[2019-07-06] MEDS ORDERED: ROCURONIUM BROMIDE 10 MG/ML 5 ML VIAL IV ONE (16:00)
[2019-07-06] MEDS ORDERED: PROPOFOL 10 MG/ML 20 ML VIAL IV ONE (16:00)
[2019-07-06] MEDS ORDERED: LIDOCAINE 1% INJ 10MG/ML (20 ML MDV) ONE (16:00)
[2019-07-06] MEDS ORDERED: GLYCOPYRROLATE 0.2 MG/ML 2 ML VIAL ONE (16:00)
[2019-07-06] MEDS ORDERED: SUCCINYLCHOLINE CHLORIDE 100 MG/5 ML SYR IV ONE (16:00)
[2019-07-06] MEDS ORDERED: fentaNYL (PF) 50 MCG/ML 2 ML AMP ONE (16:00)
[2019-07-06] MEDS ORDERED: PHENYLEPHRINE-0.9% NACL SYG 1 MG/10 ML SYRINGE ONE (16:00)
[2019-07-06] MEDS ORDERED: IV FLUID CONTINUATION 1,000 ML IV ONE (16:05)
[2019-07-06] MEDS ORDERED: ceFAZolin 3,000 MG in SODIUM CHLORIDE 0.9% IRRIGATIO 3,000 ML IRRIGATION ONE (16:28)
--- NOTE | 2019-07-06 17:03 | P.OP ---
Date of Procedure: 07/06/19 Preoperative Diagnosis: Infection right total hip arthroplasty Postoperative Diagnosis: Infection right total hip arthroplasty Procedure(s) Performed: Incision and drainage right total hip arthroplasty with drain placement Anesthesia: GAURANG Surgeon: Raji Choi Estimated Blood Loss (ml): 100 Pathology: other (Cultures 2) Condition: stable Disposition: ICU Indications for Procedure: This is a 73-year-old gentleman that had a right total arthroplasty performed 2 weeks ago. He was doing well initially that sustained a fall yesterday began experiencing more pain in his right hip. He was also having fevers and presented to the emergency room. There is found to have fever, tachycardia, and hip pain. His incision was mildly erythematous. Due to his fever hip pain and recent total hip arthroplasty, I recommended incision and drainage of his hip to rule out any deep infection. Informed consent was obtained. Operative Findings: The operative findings are consistent with an infection of the right total hip arthroplasty purulent material was encountered both superficially and deep at the level of the prosthesis. Description of Procedure: The patient was brought from the intensive care unit to the operating room. A general anesthetic was administered by the anesthesia department. His right hip was then prepped and draped in usual sterile fashion. [place] timeout was then performed confirming the patient's name, surgical site, ALLERGIES, and consent. His prior surgical incision site was utilized with a skin subcu tissue sharply incised. There was a large amount of purulent material which was trochlea brown in color encountered just below the skin. This was cultured. The area was then copiously irrigated with pulsatile lavage. The fascia was then opened overlying the hip joint. Again a large amount of chocolate appearing brown purulent fluid was encountered. This Area was cultured as well. There area was copiously irrigated with 3000 L of antibiotic solution. Prior to irrigation, 2 sets of cultures were obtained. A medium suction drain was placed. The fascia was then closed with 0 Vicryl, followed by 2-0 Vicryl for subcutaneous tissues. [place] were used for the skin. A sterile dressing was applied and patient was transferred back to the intensive care unit in stable condition.
[2019-07-06 19:17] LABS: Amorphous Sediment,Urine Occasional /hpf; Appearance,Urine Cloudy (Clear); Bacteria,Urine Rare /hpf; Bilirubin,Urine Negative (Negative); Blood,Urine Negative (Negative); Color,Urine Yellow; Glucose,Urine (UA) Negative (Negative); Hyaline Casts,Urine 8 /lpf (0-2); Ketones,Urine Negative (Negative); Leukocyte Esterase,Urine Negative (Negative); Mucus,Urine Rare /hpf; Nitrite,Urine Negative (Negative); Protein,Urine Trace (Negative); RBC,Urine 1 /hpf (0-5); Specific Gravity,Urine 1.018 (1.001-1.035); Squamous Epithelial Cell,Urine <1 /hpf (0-4); Urobilinogen,Urine <2.0 mg/dL (<2.0); WBC,Urine 1 /hpf (0-5)
[2019-07-06] MEDS ORDERED: AMPICILLIN-SULBACTAM 3 GM in SODIUM CHLORIDE 0.9% 100 ML IVPB SCH (20:00)
[2019-07-06] MEDS: HEPARIN SODIUM,PORCINE 5,000 UNIT/ML 1 ML VIAL SQ SCH (20:09)
[2019-07-06] MEDS: MORPHINE SULFATE 2 MG/ML SYRINGE IV PRN (20:09)
[2019-07-06] MEDS ORDERED: ASPIRIN 325 MG TAB PO SCH (21:00)
--- NOTE | 2019-07-06 23:37 | P.CONS ---
History of Present Illness - Reason for Consult Consult date: 07/06/19 sepsis /right hip septic arthritis Requesting physician: Cari Harper - Chief Complaint Fever and right hip pain worse x 2 days - History of Present Illness Patient is a 73-year male who recently did have a right hip arthroplasty on June 20, 2019 patient was discharged in stable condition home on 06/22/2019 patient is presenting back to the hospital early this morning with chief complaints of fever and chills that apparently has been getting worse for the last 2 days have the patient be complaining of significant pain to the right hip area pain describing to be throbbing to sharp almost 10/10 and worse with movement of his right hip or bearing any weight no significant radiation of the pain, the patient denies having any URI symptoms no chest pain or shortness of breath no cough no nausea normal no bowel pain or any diarrhea patient on arrival to the ER noticed to have a fever of 101.9 F patient was tachycardic normal white count sed rate of 28 urine has been negative influenza PCR was negative patient did have a chest x-ray with concern for lower lobe airspace disease patient also have x-rays of the hip and pelvis no acute fracture or dislocation patient was evaluated by orthopedic service and subsequent was taken to the OR patient was noticed to have right hip septic arthritis patient is status post I&D of the right total hip arthroplasty and drain placement cultures have been obtained patient was started on Unasyn and vancomycin infectious disease was consulted for further recommendation about antibiotic therapy. Review of Systems Positive point has been mentioned in HPI rest of the systems are negative Past Medical History Past Medical History: Coronary Artery Disease (CAD), Cancer, Chest Pain / Angina, Diabetes Mellitus, GERD/Reflux, Hyperlipidemia, Hypertension, Osteoarthritis (OA), Prostate Disorder Additional Past Medical History / Comment(s): 5 Herniated discs in neck causing headaches & numbness in arm and right lower back and pain and right leg pain. Hx 4 fx ribs, current Prostate Cancer- last radiation tx Mar 25 had total of 44 tx. occ constipation, Last Myocardial Infarction Date:: UNKOWN History of Any Multi-Drug Resistant Organisms: None Reported Past Surgical History: Adenoidectomy, Heart Catheterization, Heart Catheterization With Stent, Joint Replacement, Orthopedic Surgery, Prostate Surgery, Tonsillectomy Additional Past Surgical History / Comment(s): PROSTATE BX., LT. KNEE ARTHROSCOPY X 2, CERVICAL FUSIONS, COLONOSCOPY, ÁNGEL. CATARTACTS.Pain Procedures , rt radio frequency procedures. , total 2 heart stents, hemorrhoidectomy,heart cath August 2017-lt knee replacement Past Anesthesia/Blood Transfusion Reactions: No Reported Reaction Additional Past Anesthesia/Blood Transfusion Reaction / Comm: doesn't like enclosed tight spaces Date of Last Stent Placement:: 04/24/17 Past Psychological History: No Psychological Hx Reported Smoking Status: Former smoker Past Alcohol Use History: None Reported Past Drug Use History: None Reported - Past Family History Father Additional Family Medical History / Comment(s): Father at age 49 from coronary artery disease. Brother(s) Additional Family Medical History / Comment(s): Patient has one brother with history of smoking and no other major medical problems. Patient does not have any sisters. Daughter(s) Additional Family Medical History / Comment(s): He has one daughter alive in [place] with no major medical problems. Patient has one daughter with history of muscular dystrophy and of pneumonia. Son(s) Family Medical History: No Reported History Additional Family Medical History / Comment(s): Patient has one son with no major medical problems. Mother Family Medical History: Cancer Additional Family Medical History / Comment(s): Mother at age 81 from uterine cancer with metastatic disease. Medications and Allergies Home Medications Medication Instructions Recorded Confirmed Type Atorvastatin Calcium [Lipitor] 40 mg PO QAM 11/01/14 07/06/19 History sitaGLIPtin PHOS/metFORMIN HCL 1 tab PO DAILY@1200 06/08/17 07/06/19 History [Janumet 50-1,000 mg Tablet] Atenolol 50 mg PO DAILY 05/25/18 07/06/19 History Hydrocodone/Acetaminophen 1 tab PO TID PRN 11/23/18 07/06/19 History [Hydrocodone-Acetamin 10-300 mg] Aspirin 325 mg PO BID #60 tab 06/21/19 07/06/19 Rx Sennosides-Docusate Sodium 2 tab PO DAILY #30 tablet 06/21/19 07/06/19 Rx [Senokot-S] Valsartan [Diovan] 160 mg PO DAILY@0600 tab 06/22/19 07/06/19 Rx Allergies Allergy/AdvReac Type Severity Reaction Status Date / Time No Known Allergies Allergy Verified 07/06/19 11:47 Physical Exam Vitals: Vital Signs Temp Pulse Resp BP Pulse Ox 07/06/19 20:00 99.6 F 101 H 22 111/66 91 L 07/06/19 19:30 92 L 07/06/19 19:00 89 25 H 123/66 91 L 07/06/19 18:00 96 21 110/60 92 L 07/06/19 17:00 143/77 07/06/19 16:00 90 36 H 127/84 98 07/06/19 15:00 98 19 125/77 95 07/06/19 14:10 106 H 18 125/77 96 07/06/19 13:50 101 H 25 H 101/67 98 07/06/19 12:54 99.4 F 109 H 18 120/69 96 07/06/19 12:50 109 H 18 120/69 96 07/06/19 12:02 99.4 F 91 16 115/74 96 07/06/19 11:42 96 18 99/66 95 07/06/19 11:10 91 18 101/47 96 07/06/19 10:40 99.9 F H 95/56 96 07/06/19 09:02 101.9 F H 120 H 20 99/66 94 L Intake and Output 07/06/19 07/06/19 07/06/19 06:59 14:59 22:59 Intake Total 2675 301 Output Total 825 Balance 2675 -524 Intake: IV 1 Intake, IV Titration 2675 300 Amount Ampicillin-Sulbactam 3 gm 100 In Sodium Chloride 0.9% 100 ml @ 200 mls/hr IVPB Q8H [facility] Rx#:[id number] Sodium Chloride 0.9% 1, 75 300 000 ml @ 75 mls/hr IV . [id number] [facility] Rx#:[id number] Sodium Chloride 0.9% 1, 1000 000 ml @ 999 mls/hr IV . Q1H1M STA Rx#:[id number] Sodium Chloride 0.9% 1, 1000 000 ml @ 999 mls/hr IV . Q1H1M STA Rx#:[id number] Vancomycin 1,750 mg In 500 Sodium Chloride 0.9% 500 ml 500 ml @ 167 mls/hr IVPB Q24H [facility] Rx#: [id number] Output: Urine 725 Estimated Blood Loss 100 Other: Voiding Method Indwelling Catheter Weight 108.862 kg GENERAL DESCRIPTION: Elderly male lying in bed, no distress. No tachypnea or accessory muscle of respiration use. HEENT: Shows Pallor , no scleral icterus. Oral mucous membrane is dry. NECK: Trachea central, no thyromegaly. LUNGS: Unlabored breathing. Decreased breath sounds at bases. No wheeze or crackle. HEART: S1, S2, regular rate and rhythm. ABDOMEN: Soft, no tenderness , guarding or rigidity EXTREMITIES: No edema of feet. SKIN: No rash, no masses palpable. NEUROLOGICAL: The patient is awake, alert, oriented x3, mood and affect normal. Results CBC & Chem 7: 07/06/19 09:32 07/06/19 09:32 Labs: Abnormal Lab Results - Last 24 Hours (Table) 07/06/19 07/06/19 07/06/19 Range/Units 09:32 09:32 09:32 RBC 3.63 L (4.30-5.90) m/uL Hgb 12.0 L (13.0-17.5) gm/dL Hct 34.8 L (39.0-53.0) % Plt Count 118 L (150-450) k/uL Neutrophils # 8.5 H (1.3-7.7) k/uL Lymphocytes # 0.4 L (1.0-4.8) k/uL ESR (0-15) mm/hr Sodium 133 L (137-145) mmol/L BUN 42 H (9-20) mg/dL Creatinine 1.52 H (0.66-1.25) mg/dL Glucose 207 H (74-99) mg/dL POC Glucose (mg/dL) (75-99) mg/dL Plasma Lactic Acid Rob 4.0 H* (0.7-2.0) mmol/L Calcium 7.9 L (8.4-10.2) mg/dL Total Bilirubin 3.3 H (0.2-1.3) mg/dL C-Reactive Protein (<10.0) mg/L Total Protein 5.7 L (6.3-8.2) g/dL Albumin 3.4 L (3.5-5.0) g/dL Urine Protein (Negative) Amorphous Sediment (None) /hpf Urine Bacteria (None) /hpf Hyaline Casts (0-2) /lpf Urine Mucus (None) /hpf 07/06/19 07/06/19 07/06/19 Range/Units 09:32 09:32 13:37 RBC (4.30-5.90) m/uL Hgb (13.0-17.5) gm/dL Hct (39.0-53.0) % Plt Count (150-450) k/uL Neutrophils # (1.3-7.7) k/uL Lymphocytes # (1.0-4.8) k/uL ESR 28 H (0-15) mm/hr Sodium (137-145) mmol/L BUN (9-20) mg/dL Creatinine (0.66-1.25) mg/dL Glucose (74-99) mg/dL POC Glucose (mg/dL) 145 H (75-99) mg/dL Plasma Lactic Acid Rob (0.7-2.0) mmol/L Calcium (8.4-10.2) mg/dL Total Bilirubin (0.2-1.3) mg/dL C-Reactive Protein 417.3 H (<10.0) mg/L Total Protein (6.3-8.2) g/dL Albumin (3.5-5.0) g/dL Urine Protein (Negative) Amorphous Sediment (None) /hpf Urine Bacteria (None) /hpf Hyaline Casts (0-2) /lpf Urine Mucus (None) /hpf 07/06/19 Range/Units 19:00 RBC (4.30-5.90) m/uL Hgb (13.0-17.5) gm/dL Hct (39.0-53.0) % Plt Count (150-450) k/uL Neutrophils # (1.3-7.7) k/uL Lymphocytes # (1.0-4.8) k/uL ESR (0-15) mm/hr Sodium (137-145) mmol/L BUN (9-20) mg/dL Creatinine (0.66-1.25) mg/dL Glucose (74-99) mg/dL POC Glucose (mg/dL) (75-99) mg/dL Plasma Lactic Acid Rob (0.7-2.0) mmol/L Calcium (8.4-10.2) mg/dL Total Bilirubin (0.2-1.3) mg/dL C-Reactive Protein (<10.0) mg/L Total Protein (6.3-8.2) g/dL Albumin (3.5-5.0) g/dL Urine Protein Trace H (Negative) Amorphous Sediment Occasional H (None) /hpf Urine Bacteria Rare H (None) /hpf Hyaline Casts 8 H (0-2) /lpf Urine Mucus Rare H (None) /hpf Assessment and Plan Assessment: 1-patient presented hospital with sepsis in this patient who did have a fever ta chycardia source is her right hip septic arthritis in this patient did have right hip arthroplasty on June 19 patient was noted to have significant purulent secretion extending onto the joint and is status post I&D and drain placement will need to call for gram-positive skin fold with likely pathogen underlying gram-negative bacillus like bilateral excluded however with our removal of the hardware I am not sure we will be able to clear of this infection 2-patient with lower lobe atelectasis clinically not behaving as pneumonia or COVID-19 infection (1) Sepsis Current Visit: Yes Status: Acute Code(s): A41.9 - SEPSIS, UNSPECIFIED ORGANISM SNOMED Code(s): 57094199 (2) Septic arthritis of hip Current Visit: Yes Status: Acute Code(s): M00.9 - PYOGENIC ARTHRITIS, UNSPECIFIED SNOMED Code(s): 986160673 Plan: 1-vancomycin pharmacy to dose her with a target trough of 15 while watching her kidney function and Vanco trough closely. 2-discontinue Rocephin and start the patient cefepime 2 g every 12 hours We will follow on clinical condition and cultures to further adjust medication if needed Thank you for this consultation we will follow the patient along with you Time with Patient: Greater than 30
[2019-07-07] MEDS: MORPHINE SULFATE 2 MG/ML SYRINGE IV PRN (00:42)
[2019-07-07] MEDS: ONDANSETRON 4 MG/2 ML VIAL IVP PRN ×2 (01:14→07:20)
[2019-07-07] MEDS: SODIUM CHLORIDE 0.9% 1,000 ML IV SCH ×2 (03:55→15:14)
[2019-07-07 05:46] LABS: Basophils % (A) 0 %; Eosinophils % (A) 0 %; HGB 10.5 gm/dL (13.0-17.5); Lymphocytes # (A) 0.4 k/uL (1.0-4.8); Lymphocytes % (A) 4 %; MCH 32.2 pg (25.0-35.0); MCHC 32.9 g/dL (31.0-37.0); MCV 97.7 fL (80.0-100.0); Mean Platelet Volume 8.3; Monocytes # (A) 0.4 k/uL (0-1.0); Monocytes % (A) 5 %; Neutrophils # (A) 7.1 k/uL (1.3-7.7); Neutrophils % (A) 88 %; Platelet Count 111 k/uL (150-450); RBC 3.27 m/uL (4.30-5.90); RDW 13.5 % (11.5-15.5); WBC 8.1 k/uL (3.8-10.6)
[2019-07-07 05:50] LABS: Albumin 2.7 g/dL (3.5-5.0); Calcium 7.1 mg/dL (8.4-10.2); Potassium 3.7 mmol/L (3.5-5.1); Total Bilirubin 2.6 mg/dL (0.2-1.3); Total Protein 4.9 g/dL (6.3-8.2)
[2019-07-07 06:17] LABS: Glucose,Whole Blood 193 mg/dL (75-99)
[2019-07-07] MEDS: ASPIRIN 81 MG PO SCH (08:55)
[2019-07-07] MEDS: SENNOSIDES-DOCUSATE SODIUM 1 EACH TAB PO SCH (08:55)
[2019-07-07] MEDS: ATORVASTATIN 40 MG TAB PO SCH (08:55)
[2019-07-07] MEDS ORDERED: DIAZEPAM 5 MG TAB PO PRN (09:13)
[2019-07-07] MEDS ORDERED: traMADol 50 MG TAB PO PRN (09:13)
[2019-07-07] MEDS ORDERED: HYDROmorphone 0.5 MG/0.5 ML SYRINGE IVP PRN ×2 (09:13)
[2019-07-07] MEDS ORDERED: MAGNESIUM HYDROXIDE 2,400 MG/10 ML CUP PO PRN (09:13)
[2019-07-07] MEDS ORDERED: TEMAZEPAM 15 MG CAP PO PRN (09:13)
[2019-07-07] MEDS ORDERED: PROMETHAZINE INJ 25 MG/ML 1 ML VIAL IM PRN (09:18)
[2019-07-07] MEDS: INSULIN ASPART (NovoLOG) 100 UNIT/ML VIAL SQ SCH ×4 (09:58→20:26)
[2019-07-07] MEDS: HEPARIN SODIUM,PORCINE 5,000 UNIT/ML 1 ML VIAL SQ SCH ×2 (10:03→20:36)
[2019-07-07] MEDS: CEFEPIME 2 GM in SODIUM CHLORIDE 0.9% 100 ML IVPB SCH ×2 (10:03→20:36)
--- NOTE | 2019-07-07 10:16 | P.PN ---
Subjective Progress Note Date: 07/07/19 Principal diagnosis: S/P I and D of right hip arthroplasty Patient is seen at bedside this morning. He is postop day #1 from I and D of total right hip arthroplasty performed 06/20/2019. He has pain at the surgical site as expected but denies any new complaints. He denies numbness, tingling or calf pain. Review of systems is negative for fever, chills, chest pain, shortness of breath or other Objective - Vital Signs Vital signs: Vital Signs Temp 99.5 F 07/07/19 04:00 Pulse 101 H 07/07/19 07:00 Resp 21 07/07/19 07:00 BP 135/80 07/07/19 07:00 Pulse Ox 92 L 07/07/19 07:00 Intake & Output 07/06/19 07/07/19 07/07/19 18:59 06:59 18:59 Intake Total 2826 1000 75 Output Total 500 1470 50 Balance 2326 -470 25 Weight 108.862 kg Intake: IV 1 Intake, IV Titration 2825 1000 75 Amount Ampicillin-Sulbactam 3 gm 100 100 In Sodium Chloride 0.9% 100 ml @ 200 mls/hr IVPB Q8H LA[facility]A Rx#:[id number] Sodium Chloride 0.9% 1, 225 900 75 000 ml @ 75 mls/hr IV . [id number] LAURA Rx#:[id number] Sodium Chloride 0.9% 1, 1000 000 ml @ 999 mls/hr IV . Q1H1M STA Rx#:[id number] Sodium Chloride 0.9% 1, 1000 000 ml @ 999 mls/hr IV . Q1H1M STA Rx#:[id number] Vancomycin 1,750 mg In 500 Sodium Chloride 0.9% 500 ml 500 ml @ 167 mls/hr IVPB Q24H LAURA Rx#: [id number] Output: Drainage 150 Right Hip 150 Urine 400 1320 50 Estimated Blood Loss 100 Other: Voiding Method Bedpan Indwelling Catheter Urinal - Exam Inspection reveals a benign surgical wound. There is a hemovac in place. There is no active bleeding or drainage. Neurovascular status is intact throughout th e lower extremity with motor and sensation fully intact. Calf is soft and nontender. 2+ dorsalis pedis pulse and less than 2 second cap refill is present. - Constitutional General appearance: Present: no acute distress - Labs CBC & Chem 7: 07/07/19 05:03 07/07/19 05:03 Labs: Abnormal Lab Results - Last 24 Hours (Table) 07/06/19 07/06/19 07/06/19 Range/Units 09:32 09:32 13:37 RBC (4.30-5.90) m/uL Hgb (13.0-17.5) gm/dL Hct (39.0-53.0) % Plt Count (150-450) k/uL Lymphocytes # (1.0-4.8) k/uL ESR 28 H (0-15) mm/hr Sodium (137-145) mmol/L BUN (9-20) mg/dL Glucose (74-99) mg/dL POC Glucose (mg/dL) 145 H (75-99) mg/dL Calcium (8.4-10.2) mg/dL Total Bilirubin (0.2-1.3) mg/dL C-Reactive Protein 417.3 H (<10.0) mg/L Total Protein (6.3-8.2) g/dL Albumin (3.5-5.0) g/dL Urine Protein (Negative) Amorphous Sediment (None) /hpf Urine Bacteria (None) /hpf Hyaline Casts (0-2) /lpf Urine Mucus (None) /hpf 07/06/19 07/07/19 07/07/19 Range/Units 19:00 05:03 05:03 RBC 3.27 L (4.30-5.90) m/uL Hgb 10.5 L (13.0-17.5) gm/dL Hct 32.0 L (39.0-53.0) % Plt Count 111 L (150-450) k/uL Lymphocytes # 0.4 L (1.0-4.8) k/uL ESR (0-15) mm/hr Sodium 134 L (137-145) mmol/L BUN 31 H (9-20) mg/dL Glucose 183 H (74-99) mg/dL POC Glucose (mg/dL) (75-99) mg/dL Calcium 7.1 L (8.4-10.2) mg/dL Total Bilirubin 2.6 H (0.2-1.3) mg/dL C-Reactive Protein (<10.0) mg/L Total Protein 4.9 L (6.3-8.2) g/dL Albumin 2.7 L (3.5-5.0) g/dL Urine Protein Trace H (Negative) Amorphous Sediment Occasional H (None) /hpf Urine Bacteria Rare H (None) /hpf Hyaline Casts 8 H (0-2) /lpf Urine Mucus Rare H (None) /hpf 07/07/19 Range/Units 06:15 RBC (4.30-5.90) m/uL Hgb (13.0-17.5) gm/dL Hct (39.0-53.0) % Plt Count (150-450) k/uL Lymphocytes # (1.0-4.8) k/uL ESR (0-15) mm/hr Sodium (137-145) mmol/L BUN (9-20) mg/dL Glucose (74-99) mg/dL POC Glucose (mg/dL) 193 H (75-99) mg/dL Calcium (8.4-10.2) mg/dL Total Bilirubin (0.2-1.3) mg/dL C-Reactive Protein (<10.0) mg/L Total Protein (6.3-8.2) g/dL Albumin (3.5-5.0) g/dL Urine Protein (Negative) Amorphous Sediment (None) /hpf Urine Bacteria (None) /hpf Hyaline Casts (0-2) /lpf Urine Mucus (None) /hpf Microbiology - Last 24 Hours (Table) 07/06/19 09:20 Blood Culture Gram Stain - Preliminary Blood 07/06/19 09:20 Blood Culture - Final Blood 07/06/19 16:30 Gram Stain - Preliminary Hip - Right Wound Culture - Preliminary 07/06/19 16:30 Gram Stain - Preliminary Hip - Right Wound Culture - Preliminary 07/06/19 16:30 Anaerobic Culture - Preliminary Hip - Right 07/06/19 16:30 Anaerobic Culture - Preliminary Hip - Right Assessment and Plan (1) Septic arthritis of hip Narrative/Plan: He will continue with routine postop orthopedic protocol including pain management, wound care, drain management, PT, DVT prophylaxis and medical management. He is currently afebrile and WBC is normal. Cultures have shown gram positive cocci. Appreciate infectious disease recommendations and is following. Will continue to monitor and make further recommendations as appropriate. Current Visit: Yes Status: Acute Priority: Medium Code(s): M00.9 - PYOGENIC ARTHRITIS, UNSPECIFIED SNOMED Code(s): 489162255 Time with Patient: Less than 30
[2019-07-07] MEDS: VANCOMYCIN 1,750 MG in SODIUM CHLORIDE 0.9% 500 ML 500 ML IVPB SCH ×2 (10:26→22:00)
--- NOTE | 2019-07-07 10:43 | P.GSCN ---
History of Present Illness Consult date: 07/07/19 Reason for Consult: Inability to insert urethral catheter History of present illness: The patient is a 73-year-old male who originally underwent right total hip arthroplasty on 06/21/2019. He was admitted yesterday with sepsis secondary to a hip abscess which was drained in the operating room. Attempts were made to pass a catheter in the operating room but this proved unsuccessful. I was contacted by the intensive care unit later in the day after they were also unable to insert a catheter. I suggested they try a 12-English coud which was successfully passed into the bladder. The patient has no previous history of urinary retention. He described a good urinary flow prior to being admitted. He says he usually voids every 2-3 hours during the day and 3 times at night. This pattern of voiding has not changed recently. He has a history of prostate cancer which was diagnosed 3 years ago. He has been treated with radiation therapy and has been followed by . He was last seen in 05/2019 and his PSA was undetectable. Review of Systems All systems: negative (minimal discomfort from the Shelley catheter) Past Medical History Past Medical History: Coronary Artery Disease (CAD), Cancer, Chest Pain / Angina, Diabetes Mellitus, GERD/Reflux, Hyperlipidemia, Hypertension, Osteoarthritis (OA), Prostate Disorder Additional Past Medical History / Comment(s): 5 Herniated discs in neck causing headaches & numbness in arm and right lower back and pain and right leg pain. Hx 4 fx ribs, current Prostate Cancer- last radiation tx Mar 25 had total of 44 tx. occ constipation, Last Myocardial Infarction Date:: UNKOWN History of Any Multi-Drug Resistant Organisms: None Reported Past Surgical History: Adenoidectomy, Heart Catheterization, Heart Ca theterization With Stent, Joint Replacement, Orthopedic Surgery, Tonsillectomy Additional Past Surgical History / Comment(s): PROSTATE BX., LT. KNEE ARTHROSCOPY X 2, CERVICAL FUSIONS, COLONOSCOPY, ÁNGEL. CATARTACTS.Pain Procedures , rt radio frequency procedures. , total 2 heart stents, hemorrhoidectomy,heart cath August 2017-lt knee replacement Past Anesthesia/Blood Transfusion Reactions: No Reported Reaction Additional Past Anesthesia/Blood Transfusion Reaction / Comm: doesn't like enclosed tight spaces Date of Last Stent Placement:: 04/24/17 Past Psychological History: No Psychological Hx Reported Smoking Status: Former smoker Past Alcohol Use History: None Reported Past Drug Use History: None Reported - Past Family History Father Additional Family Medical History / Comment(s): Father at age 49 from coronary artery disease. Brother(s) Additional Family Medical History / Comment(s): Patient has one brother with history of smoking and no other major medical problems. Patient does not have any sisters. Daughter(s) Additional Family Medical History / Comment(s): He has one daughter alive in [place] with no major medical problems. Patient has one daughter with history of muscular dystrophy and of pneumonia. Son(s) Family Medical History: No Reported History Additional Family Medical History / Comment(s): Patient has one son with no major medical problems. Mother Family Medical History: Cancer Additional Family Medical History / Comment(s): Mother at age 81 from uterine cancer with metastatic disease. Medications and Allergies Home Medications Medication Instructions Recorded Confirmed Type Atorvastatin Calcium [Lipitor] 40 mg PO QAM 11/01/14 07/06/19 History sitaGLIPtin PHOS/metFORMIN HCL 1 tab PO DAILY@1200 06/08/17 07/06/19 History [Janumet 50-1,000 mg Tablet] Atenolol 50 mg PO DAILY 05/25/18 07/06/19 History Hydrocodone/Acetaminophen 1 tab PO TID PRN 11/23/18 07/06/19 History [Hydrocodone-Acetamin 10-300 mg] Aspirin 325 mg PO BID #60 tab 06/21/19 07/06/19 Rx Sennosides-Docusate Sodium 2 tab PO DAILY #30 tablet 06/21/19 07/06/19 Rx [Senokot-S] Valsartan [Diovan] 160 mg PO DAILY@0600 tab 06/22/19 07/06/19 Rx Allergies Allergy/AdvReac Type Severity Reaction Status Date / Time No Known Allergies Allergy Verified 07/06/19 11:47 Surgical - Exam Vital Signs Temp Pulse Resp BP Pulse Ox 101.9 F H 120 H 20 99/66 94 L 07/06/19 09:02 07/06/19 09:02 07/06/19 09:02 07/06/19 09:02 07/06/19 09:02 - General well developed, well nourished, no distress - Respiratory normal respiratory effort - Abdomen Abdomen: soft Hernia: none - Genitourinary normal penis with no external lesions, testicles non-tender, other (Urethral meatus appears normal) Results - Labs 07/07/19 05:03 07/07/19 05:03 Abnormal Lab Results - Last 24 Hours (Table) 07/06/19 07/06/19 07/06/19 Range/Units 09:32 09:32 13:37 RBC (4.30-5.90) m/uL Hgb (13.0-17.5) gm/dL Hct (39.0-53.0) % Plt Count (150-450) k/uL Lymphocytes # (1.0-4.8) k/uL ESR 28 H (0-15) mm/hr Sodium (137-145) mmol/L BUN (9-20) mg/dL Glucose (74-99) mg/dL POC Glucose (mg/dL) 145 H (75-99) mg/dL Calcium (8.4-10.2) mg/dL Total Bilirubin (0.2-1.3) mg/dL C-Reactive Protein 417.3 H (<10.0) mg/L Total Protein (6.3-8.2) g/dL Albumin (3.5-5.0) g/dL Urine Protein (Negative) Amorphous Sediment (None) /hpf Urine Bacteria (None) /hpf Hyaline Casts (0-2) /lpf Urine Mucus (None) /hpf 07/06/19 07/07/19 07/07/19 Range/Units 19:00 05:03 05:03 RBC 3.27 L (4.30-5.90) m/uL Hgb 10.5 L (13.0-17.5) gm/dL Hct 32.0 L (39.0-53.0) % Plt Count 111 L (150-450) k/uL Lymphocytes # 0.4 L (1.0-4.8) k/uL ESR (0-15) mm/hr Sodium 134 L (137-145) mmol/L BUN 31 H (9-20) mg/dL Glucose 183 H (74-99) mg/dL POC Glucose (mg/dL) (75-99) mg/dL Calcium 7.1 L (8.4-10.2) mg/dL Total Bilirubin 2.6 H (0.2-1.3) mg/dL C-Reactive Protein (<10.0) mg/L Total Protein 4.9 L (6.3-8.2) g/dL Albumin 2.7 L (3.5-5.0) g/dL Urine Protein Trace H (Negative) Amorphous Sediment Occasional H (None) /hpf Urine Bacteria Rare H (None) /hpf Hyaline Casts 8 H (0-2) /lpf Urine Mucus Rare H (None) /hpf 07/07/19 Range/Units 06:15 RBC (4.30-5.90) m/uL Hgb (13.0-17.5) gm/dL Hct (39.0-53.0) % Plt Count (150-450) k/uL Lymphocytes # (1.0-4.8) k/uL ESR (0-15) mm/hr Sodium (137-145) mmol/L BUN (9-20) mg/dL Glucose (74-99) mg/dL POC Glucose (mg/dL) 193 H (75-99) mg/dL Calcium (8.4-10.2) mg/dL Total Bilirubin (0.2-1.3) mg/dL C-Reactive Protein (<10.0) mg/L Total Protein (6.3-8.2) g/dL Albumin (3.5-5.0) g/dL Urine Protein (Negative) Amorphous Sediment (None) /hpf Urine Bacteria (None) /hpf Hyaline Casts (0-2) /lpf Urine Mucus (None) /hpf Microbiology - Last 24 Hours (Table) 07/06/19 09:20 Blood Culture Gram Stain - Preliminary Blood 07/06/19 09:20 Blood Culture - Final Blood 07/06/19 16:30 Gram Stain - Preliminary Hip - Right Wound Culture - Preliminary 07/06/19 16:30 Gram Stain - Preliminary Hip - Right Wound Culture - Preliminary 07/06/19 16:30 Anaerobic Culture - Preliminary Hip - Right 07/06/19 16:30 Anaerobic Culture - Preliminary Hip - Right Diabetes panel 07/07/19 Range/Units 05:03 Sodium 134 L (137-145) mmol/L Potassium 3.7 (3.5-5.1) mmol/L Chloride 101 (98-107) mmol/L Carbon Dioxide 25 (22-30) mmol/L BUN 31 H (9-20) mg/dL Creatinine 1.02 (0.66-1.25) mg/dL Glucose 183 H (74-99) mg/dL Calcium 7.1 L (8.4-10.2) mg/dL AST 23 (17-59) U/L ALT 22 (4-49) U/L Alkaline Phosphatase 46 (38-126) U/L Total Protein 4.9 L (6.3-8.2) g/dL Albumin 2.7 L (3.5-5.0) g/dL Calcium panel 07/07/19 Range/Units 05:03 Calcium 7.1 L (8.4-10.2) mg/dL Albumin 2.7 L (3.5-5.0) g/dL Pituitary panel 07/07/19 Range/Units 05:03 Sodium 134 L (137-145) mmol/L Potassium 3.7 (3.5-5.1) mmol/L Chloride 101 (98-107) mmol/L Carbon Dioxide 25 (22-30) mmol/L BUN 31 H (9-20) mg/dL Creatinine 1.02 (0.66-1.25) mg/dL Glucose 183 H (74-99) mg/dL Calcium 7.1 L (8.4-10.2) mg/dL Adrenal panel 07/07/19 Range/Units 05:03 Sodium 134 L (137-145) mmol/L Potassium 3.7 (3.5-5.1) mmol/L Chloride 101 (98-107) mmol/L Carbon Dioxide 25 (22-30) mmol/L BUN 31 H (9-20) mg/dL Creatinine 1.02 (0.66-1.25) mg/dL Glucose 183 H (74-99) mg/dL Calcium 7.1 L (8.4-10.2) mg/dL Total Bilirubin 2.6 H (0.2-1.3) mg/dL AST 23 (17-59) U/L ALT 22 (4-49) U/L Alkaline Phosphatase 46 (38-126) U/L Total Protein 4.9 L (6.3-8.2) g/dL Albumin 2.7 L (3.5-5.0) g/dL Assessment and Plan (1) Urethral meatal stenosis Narrative/Plan: Difficulty passing the Shelley catheter yesterday may be related to mild meatal stenosis. The patient had a Shelley catheter earlier in the month when he had his original hip surgery and there was apparently no difficulty in insertion of the catheter at that time and the patient denied any difficulty voiding following the surgery. Patient's catheter can be removed when the need for close monitoring of his urine output has ended. As long as he returns to his normal pattern of voiding no further urologic evaluation will be necessary. Current Visit: Yes Status: Acute Code(s): N35.919 - UNSPECIFIED URETHRAL STRICTURE, MALE, UNSPECIFIED SITE SNOMED Code(s): 93540773
--- NOTE | 2019-07-07 11:05 | CDI ---
Documentation Clarification Form Date: 07/07/2019 10:51:51 AM From: Zhane Galo RN, CCDS Admit Date: 07/06/2019 12:02:00 PM Patient Name: Burt Berkowitz Visit Number: [id number] ATTENTION: The Clinical Documentation Specialists (CDI) and [facility] Coding Staff appreciate your assistance in clarifying documentation. Please respond to the clarification below the line at the bottom and electronically sign. The CDI & [facility] Coding staff will review the response and follow-up if needed. Please note: Queries are made part of the Legal Health Record. If you have any questions, please contact the author of this message via ITS. Dr. Cari Harper An elevated BUN and Creatinine with a decreased GFR were noted on admission and improving after IV Fluids. Can you please provide clinical significance? History/Risk Factors: CAD, DM2, HTN, Prostate cancer 06/09/19 Patients baseline BUN/CR/GFR: 35/1.53/44 Clinical Indicators: 07/05 ID Consult: "vancomycin pharmacy to dose her with a target trough of 15 while watching her kidney function and Vanco trough closely." 07/05-07/06 Current BUN: 42/31 Cr: 1.52/1.02 GFR: 45/72 Treatment: 07/05 2.5 L 0.9%NS IVF Bolus followed by 75 cc/hr In order to capture the severity of condition, please clarify if the condition signifies: Acute renal failure, Please specify etiology (if known): Cortical Necrosis Medullary Necrosis Tubular Necrosis Acute kidney injury Acute on chronic renal failure CKD Stage 1 GFR >90 CKD Stage 2 GFR 60-89 CKD Stage 3 GFR 30-59 CKD Stage 4 GFR 15-29 Chronic renal failure/Chronic Kidney disease (CKD) please stage (if known): CKD Stage 1 GFR >90 CKD Stage 2 GFR 60-89 CKD Stage 3 GFR 30-59 CKD Stage 4 GFR 15-29 Other, please specify Unable to determine (Last Revision: July 2017) Acute tubular necrosis MTDD
--- NOTE | 2019-07-07 11:12 | CDI ---
Documentation Clarification Form Date: 07/07/2019 11:06:42 AM From: Zhane Galo RN, CCDS Admit Date: 07/06/2019 12:02:00 PM Patient Name: Burt Berkowitz Visit Number: [id number] ATTENTION: The Clinical Documentation Specialists (CDI) and [facility] Coding Staff appreciate your assistance in clarifying documentation. Please respond to the clarification below the line at the bottom and electronically sign. The CDI & [facility] Coding staff will review the response and follow-up if needed. Please note: Queries are made part of the Legal Health Record. If you have any questions, please contact the author of this message via ITS. Dr. Cari Gutierrez declining Hgb and Hct have been noted and lacks specificity to accurately reflect your patients severity of condition and clarification is needed. History/Risk Factors: Prostate cancer with radiation, DM2, CAD Clinical indicators: 07/05-07/06 Hemoglobin: 12/10.5 07/05-07/06 Hematocrit: 34.8/32 Treatment: Monitoring labs 07/05 2.5L IVF Bolus In order to capture the severity of condition, please clarify the type of anemia and etiology if known: Acute on chronic blood loss anemia Chronic blood loss anemia Iron deficiency anemia Drug induced anemia Anemia due to malignancy Nutritional anemia Anemia of chronic disease Unable to determine Other, please specify (Last Revision: January 2017) Anemia of chronic disease MTDD
--- NOTE | 2019-07-07 11:29 | P.PN ---
Subjective Progress Note Date: 07/07/19 Principal diagnosis: Sepsis, bacteremia, right hip septic joint This is a 73-year-old white male with history of multiple medical problems including coronary artery disease, previous stenting of RCA, and PCI involving the obtuse marginal. History of type 2 diabetes, hypertension, dyslipidemia, prostate cancer treated with radiation, and history of degenerative joint disease. On 06/20/19, patient underwent the right hip arthroplasty. Yesterday, the patient fell while he was going to the bathroom, and has been noticing severe pain and redness in the right hip area and the right groin. Brought into the ER, noted to have a temp of 101.9. He was also tachycardic, and had a marginal blood pressure. Lactic acid was 4. Patient was given fluid boluses, did not require any pressors, he was placed on vancomycin and Unasyn, and he was seen by orthopedic surgery on consultation, the plan is to take the patient to surgery today. Patient will undergo incision and drainage of right hip this afternoon. In the meantime the patient remains hemodynamically stable, and started on antibiotics as above. Patient denies any shortness of breath denies any cough no wheezing he does have fever and chills, denies any chest pain hemoptysis no nausea vomiting or abdominal pain. Denies any dysuria frequency or urgency. Reevaluated today in the ICU on 07/07/19, patient is status post incision and drainage of right total hip arthroplasty. Patient clearly had infection of the right total hip arthroplasty. Drain was placed. Patient remains on antibiotics, being followed by orthopedics and by infectious disease. Blood cultures are positive for gram-positive cocci, it will likely be either Streptococcus or staph aureus. Patient is still on vancomycin and Unasyn. No hemodynamic instability overnight. No issues overnight, patient remains hemodynamically stable, not requiring any pressors. CBC is relatively normal basic metabolic profile is normal renal profile showed significant improvement with creatinine of 1.02. Considering the stability of this patient at this point, I plan to continue antibiotics and I plan to transfer the patient out of the ICU to a regular medical floor. Objective - Vital Signs Vital signs: Vital Signs Temp 97.9 F 07/07/19 08:00 Pulse 113 H 07/07/19 11:00 Resp 23 07/07/19 11:00 BP 145/84 07/07/19 11:00 Pulse Ox 95 03/20/20 11:00 Intake & Output 07/06/19 07/07/19 07/07/19 18:59 06:59 18:59 Intake Total 2826 1000 975 Output Total 500 1470 325 Balance 2326 -470 650 Weight 108.862 kg 108.862 kg Intake: IV 1 900 Cefepime 2 gm In Sodium 100 Chloride 0.9% 100 ml @ 200 mls/hr IVPB Q12HR [facility] Rx#:[id number] Sodium Chloride 0.9% 1, 300 000 ml @ 75 mls/hr IV . [id number] [facility] Rx#:[id number] Vancomycin 1,750 mg In 500 Sodium Chloride 0.9% 500 ml 500 ml @ 167 mls/hr IVPB Q12H [facility] Rx#: [id number] Intake, IV Titration 2825 1000 75 Amount Ampicillin-Sulbactam 3 gm 100 100 In Sodium Chloride 0.9% 100 ml @ 200 mls/hr IVPB Q8H [facility] Rx#:[id number] Sodium Chloride 0.9% 1, 225 900 75 000 ml @ 75 mls/hr IV . [id number] [facility] Rx#:[id number] Sodium Chloride 0.9% 1, 1000 000 ml @ 999 mls/hr IV . Q1H1M [facility] Rx#:[id number] Sodium Chloride 0.9% 1, 1000 000 ml @ 999 mls/hr IV . Q1H1M [facility] Rx#:[id number] Vancomycin 1,750 mg In 500 Sodium Chloride 0.9% 500 ml 500 ml @ 167 mls/hr IVPB Q24H [facility] Rx#: [id number] Output: Drainage 150 Right Hip 150 Urine 400 1320 325 Estimated Blood Loss 100 Other: Voiding Method Bedpan Indwelling Catheter Indwelling Catheter Urinal - Exam Physical Exam: Revealed a 73-year-old white male very pleasant in no distress. Head: Atraumatic, normocephalic. HEENT:[Neck is supple.] [No neck masses.] [No thyromegaly.] [No JVD.] PERRLA, EOMI, no icterus. Chest: [Clear throughout, no crackles, no rhonchi, no wheezes.] Cardiac Exam: [Normal S1 and S2, no S3 gallop, no murmur.] Abdomen: [Soft, nontender, no megaly, no rebound, no guarding, normal bowel sounds.] Extremities: [No clubbing, no edema, no cyanosis.] Neurological Exam: [No focal neurologic deficit.] Alert and oriented 3. Musculoskeletal: Limited movement in the right lower extremity over the hip area, right hip MARY drain is noted. Draining mostly serosanguineous material Psychiatric: Normal mood, affect and normal mental status examination. Skin: Minimal redness in the right groin area and a drain noted - Labs CBC & Chem 7: 07/07/19 05:03 07/07/19 05:03 Labs: Abnormal Lab Results - Last 24 Hours (Table) 07/06/19 07/06/19 07/06/19 Range/Units 09:32 09:32 13:37 RBC (4.30-5.90) m/uL Hgb (13.0-17.5) gm/dL Hct (39.0-53.0) % Plt Count (150-450) k/uL Lymphocytes # (1.0-4.8) k/uL ESR 28 H (0-15) mm/hr Sodium (137-145) mmol/L BUN (9-20) mg/dL Glucose (74-99) mg/dL POC Glucose (mg/dL) 145 H (75-99) mg/dL Calcium (8.4-10.2) mg/dL Total Bilirubin (0.2-1.3) mg/dL C-Reactive Protein 417.3 H (<10.0) mg/L Total Protein (6.3-8.2) g/dL Albumin (3.5-5.0) g/dL Urine Protein (Negative) Amorphous Sediment (None) /hpf Urine Bacteria (None) /hpf Hyaline Casts (0-2) /lpf Urine Mucus (None) /hpf 07/06/19 07/07/19 07/07/19 Range/Units 19:00 05:03 05:03 RBC 3.27 L (4.30-5.90) m/uL Hgb 10.5 L (13.0-17.5) gm/dL Hct 32.0 L (39.0-53.0) % Plt Count 111 L (150-450) k/uL Lymphocytes # 0.4 L (1.0-4.8) k/uL ESR (0-15) mm/hr Sodium 134 L (137-145) mmol/L BUN 31 H (9-20) mg/dL Glucose 183 H (74-99) mg/dL POC Glucose (mg/dL) (75-99) mg/dL Calcium 7.1 L (8.4-10.2) mg/dL Total Bilirubin 2.6 H (0.2-1.3) mg/dL C-Reactive Protein (<10.0) mg/L Total Protein 4.9 L (6.3-8.2) g/dL Albumin 2.7 L (3.5-5.0) g/dL Urine Protein Trace H (Negative) Amorphous Sediment Occasional H (None) /hpf Urine Bacteria Rare H (None) /hpf Hyaline Casts 8 H (0-2) /lpf Urine Mucus Rare H (None) /hpf 07/07/19 Range/Units 06:15 RBC (4.30-5.90) m/uL Hgb (13.0-17.5) gm/dL Hct (39.0-53.0) % Plt Count (150-450) k/uL Lymphocytes # (1.0-4.8) k/uL ESR (0-15) mm/hr Sodium (137-145) mmol/L BUN (9-20) mg/dL Glucose (74-99) mg/dL POC Glucose (mg/dL) 193 H (75-99) mg/dL Calcium (8.4-10.2) mg/dL Total Bilirubin (0.2-1.3) mg/dL C-Reactive Protein (<10.0) mg/L Total Protein (6.3-8.2) g/dL Albumin (3.5-5.0) g/dL Urine Protein (Negative) Amorphous Sediment (None) /hpf Urine Bacteria (None) /hpf Hyaline Casts (0-2) /lpf Urine Mucus (None) /hpf Microbiology - Last 24 Hours (Table) 07/06/19 09:20 Blood Culture Gram Stain - Preliminary Blood 07/06/19 09:20 Blood Culture - Final Blood 07/06/19 16:30 Gram Stain - Preliminary Hip - Right Wound Culture - Preliminary 07/06/19 16:30 Gram Stain - Preliminary Hip - Right Wound Culture - Preliminary 07/06/19 16:30 Anaerobic Culture - Preliminary Hip - Right 07/06/19 16:30 Anaerobic Culture - Preliminary Hip - Right Assessment and Plan Assessment: Impression: Sepsis secondary to septic arthritis of the right hip. Acute septic right hip joint, patient had recent right hip arthroplasty History of benign essential hypertension History of underlying coronary artery disease History of dyslipidemia. History of prostate cancer and previous radiation treatment History of GERD without esophagitis. Type 2 diabetes. Gram-positive bacteremia secondary to septic joint Recommendation: Continue antibiotics Continue IV fluids Patient could be transferred to a regular medical floor Incentive spirometry Early ambulation. We'll continue to follow. Time with Patient: Less than 30
[2019-07-07 11:40] LABS: Glucose,Whole Blood 194 mg/dL (75-99)
--- NOTE | 2019-07-07 14:29 | P.PN ---
Subjective Progress Note Date: 07/07/19 73-year-old male with past medical history of coronary artery disease with the previous history of RCA stenting and PCI involving the obtuse marginal, history of hypertension and hypertensive cardiovascular disease with LVH, type 2 diabetes, hyperlipidemia, history of prostate cancer status post radiation, history of osteoarthritis who was admitted on the 06/20/2019 for a right hip arthroplasty, minimal erythema and swelling was noted on the day of discharge on 06/21. Patient comes in today after he had a fall at home when he was trying to get up to go to the bathroom. Patient is using his walker to walk around the house and is having difficulty with mobility with short distances. Patient in extreme pain and was unable to come out of his bed yesterday. He had nothing by mouth for 2 days due to weakness and unable to come out of that. Patient was found to have a temp of 101.9 in the ER with a heart rate of 120 sinus tachycardia blood pressure is 99/66 on admission. Lactic acid 4. Patient is admitted with sepsis likely secondary to a septic joint. 3 L of IV fluids that with the vancomycin and Unasyn . Infectious disease consulted. ESR CRP, CBC, repeat lactic acid, CMP tomorrow. Continue IV fluids at 75 mL per hour 07/06: The patient was seen by orthopedics and yesterday afternoon went for incision and drainage of the right total hip arthroplasty. Drain was placed. Patient is currently on IV antibiotics and followed by Dr. Strickland. Blood cultures positive for gram-positive cocci. Patient is currently on vancomycin and Unasyn. Patient was stable overnight. He is in isolation until COVID-19 results are completed. Patient is cleared from the intensive care unit to go to regular medical floor but due to isolation needs, patient may stay in the intensive care unit. Patient was seen by Dr. Gordon yesterday as nurse was unable to pass Shelley catheter. He does have definitely catheter in place at this time which can be removed. Objective - Vital Signs Vital signs: Vital Signs Temp 97.9 F 07/07/19 08:00 Pulse 113 H 07/07/19 11:00 Resp 23 07/07/19 11:00 BP 145/84 07/07/19 11:00 Pulse Ox 95 07/07/19 11:00 Intake & Output 03/19/20 03/20/20 03/20/20 18:59 06:59 18:59 Intake Total 2826 1000 975 Output Total 500 1470 325 Balance 2326 -470 650 Weight 108.862 kg 108.862 kg Intake: IV 1 900 Cefepime 2 gm In Sodium 100 Chloride 0.9% 100 ml @ 200 mls/hr IVPB Q12HR [facility] Rx#:[id number] Sodium Chloride 0.9% 1, 300 000 ml @ 75 mls/hr IV . [id number] [facility] Rx#:[id number] Vancomycin 1,750 mg In 500 Sodium Chloride 0.9% 500 ml 500 ml @ 167 mls/hr IVPB Q12H [facility] Rx#: [id number] Intake, IV Titration 2825 1000 75 Amount Ampicillin-Sulbactam 3 gm 100 100 In Sodium Chloride 0.9% 100 ml @ 200 mls/hr IVPB Q8H [facility] Rx#:[id number] Sodium Chloride 0.9% 1, 225 900 75 000 ml @ 75 mls/hr IV . [id number] [facility] Rx#:[id number] Sodium Chloride 0.9% 1, 1000 000 ml @ 999 mls/hr IV . Q1H1M [facility] Rx#:[id number] Sodium Chloride 0.9% 1, 1000 000 ml @ 999 mls/hr IV . Q1H1M [facility] Rx#:[id number] Vancomycin 1,750 mg In 500 Sodium Chloride 0.9% 500 ml 500 ml @ 167 mls/hr IVPB Q24H [facility] Rx#: [id number] Output: Drainage 150 Right Hip 150 Urine 400 1320 325 Estimated Blood Loss 100 Other: Voiding Method Bedpan Indwelling Catheter Urinal - Exam Review of Systems Constitutional: Endorses chills, endorses fever, endorses lethargy, endorses malaise, endorses poor appetite Eyes: denies decreased vision, denies diplopia, denies discharge, denies pain Ears, nose, mouth and throat: Denies dental pain, Denies headache, Denies nasal discharge, Denies nose pain Cardiovascular: Denies chest pain, Denies decreased exercise tolerance, Denies edema, Denies high blood pressure, Denies irregular heart beat, Denies palpita tions, Denies paroxysmal nocturnal dyspnea, Denies rapid heart beat, Denies shortness of breath Respiratory: Denies congestion, Denies cough, Denies cough with sputum, Denies dyspnea, Denies home oxygen, Denies wheezing Gastrointestinal: Denies abdominal pain, Denies change in bowel habits, Denies c offee ground emesis, Denies early satiety, Denies excessive gas, Denies heartburn, Denies hematemesis, Denies hematochezia, Denies loss of appetite, Denies nausea, Denies vomiting Genitourinary: Denies dysuria, Denies flank pain, Denies kidney stones, Denies menorrhagia, Denies urgency, Denies urinary frequency Musculoskeletal: Endorses endorses gait dysfunction, Denies limitation of motion right lower extremity, Denies morning stiffness, Denies muscle cramps Integumentary: Denies rash, Denies wounds, Denies brittle nails, Denies change in hair/nails, Denies darkening of skin Neurological: Denies balance difficulties, Denies change in speech, Denies double vision, Denies gait dysfunction, Denies loss of vision, Denies motor disturbance, Denies numbness, Denies paralysis, Denies paresthesias, Denies seizures Psychiatric: Denies anxiety, Denies depression Endocrine: Denies excessive sweating, Denies excessive thirst, Denies high blood sugars, Denies palpitations Hematologic/Lymphatic: Denies easy bruising, Denies lymphadenopathy Physical examination - Constitutional General appearance: cooperative, no acute distress, obese, patient of breast pain and chair at the bedside. - EENT Eyes: anicteric sclerae, PERRLA, normal appearance ENT: hearing grossly normal - Neck Neck: no lymphadenopathy, normal ROM, no other, no rigidity, no stridor, no thyromegaly - Respiratory Respiratory: bilateral: CTA, negative: diminished, dullness, rales, rhonchi - Cardiovascular Rhythm: regular Heart sounds: normal: S1, S2 Abnormal Heart Sounds: no systolic murmur, no diastolic murmur, no rub, no S3 Gallop, no S4 Gallop, no click, no other - Gastrointestinal General gastrointestinal: normal bowel sounds, soft - Integumentary Integumentary: no rash - Neurologic Neurologic: CNII-XII intact - Musculoskeletal Musculoskeletal: Dressing and drain in place to the right hip - Psychiatric Psychiatric: A&O x's 3, appropriate affect - Labs CBC & Chem 7: 07/07/19 05:03 07/07/19 05:03 Labs: Abnormal Lab Results - Last 24 Hours (Table) 03/19/20 03/19/20 03/19/20 Range/Units 09:32 09:32 13:37 RBC (4.30-5.90) m/uL Hgb (13.0-17.5) gm/dL Hct (39.0-53.0) % Plt Count (150-450) k/uL Lymphocytes # (1.0-4.8) k/uL ESR 28 H (0-15) mm/hr Sodium (137-145) mmol/L BUN (9-20) mg/dL Glucose (74-99) mg/dL POC Glucose (mg/dL) 145 H (75-99) mg/dL Calcium (8.4-10.2) mg/dL Total Bilirubin (0.2-1.3) mg/dL C-Reactive Protein 417.3 H (<10.0) mg/L Total Protein (6.3-8.2) g/dL Albumin (3.5-5.0) g/dL Urine Protein (Negative) Amorphous Sediment (None) /hpf Urine Bacteria (None) /hpf Hyaline Casts (0-2) /lpf Urine Mucus (None) /hpf 07/06/19 07/07/19 07/07/19 Range/Units 19:00 05:03 05:03 RBC 3.27 L (4.30-5.90) m/uL Hgb 10.5 L (13.0-17.5) gm/dL Hct 32.0 L (39.0-53.0) % Plt Count 111 L (150-450) k/uL Lymphocytes # 0.4 L (1.0-4.8) k/uL ESR (0-15) mm/hr Sodium 134 L (137-145) mmol/L BUN 31 H (9-20) mg/dL Glucose 183 H (74-99) mg/dL POC Glucose (mg/dL) (75-99) mg/dL Calcium 7.1 L (8.4-10.2) mg/dL Total Bilirubin 2.6 H (0.2-1.3) mg/dL C-Reactive Protein (<10.0) mg/L Total Protein 4.9 L (6.3-8.2) g/dL Albumin 2.7 L (3.5-5.0) g/dL Urine Protein Trace H (Negative) Amorphous Sediment Occasional H (None) /hpf Urine Bacteria Rare H (None) /hpf Hyaline Casts 8 H (0-2) /lpf Urine Mucus Rare H (None) /hpf 07/07/19 Range/Units 06:15 RBC (4.30-5.90) m/uL Hgb (13.0-17.5) gm/dL Hct (39.0-53.0) % Plt Count (150-450) k/uL Lymphocytes # (1.0-4.8) k/uL ESR (0-15) mm/hr Sodium (137-145) mmol/L BUN (9-20) mg/dL Glucose (74-99) mg/dL POC Glucose (mg/dL) 193 H (75-99) mg/dL Calcium (8.4-10.2) mg/dL Total Bilirubin (0.2-1.3) mg/dL C-Reactive Protein (<10.0) mg/L Total Protein (6.3-8.2) g/dL Albumin (3.5-5.0) g/dL Urine Protein (Negative) Amorphous Sediment (None) /hpf Urine Bacteria (None) /hpf Hyaline Casts (0-2) /lpf Urine Mucus (None) /hpf Microbiology - Last 24 Hours (Table) 07/06/19 09:20 Blood Culture Gram Stain - Preliminary Blood 07/06/19 09:20 Blood Culture - Final Blood 07/06/19 16:30 Gram Stain - Preliminary Hip - Right Wound Culture - Preliminary 07/06/19 16:30 Gram Stain - Preliminary Hip - Right Wound Culture - Preliminary 07/06/19 16:30 Anaerobic Culture - Preliminary Hip - Right 07/06/19 16:30 Anaerobic Culture - Preliminary Hip - Right Assessment and Plan Plan: #1 sepsis likely secondary to septic right hip arthroplasty status post incision and drainage. Patient is currently on cefepime and vancomycin. Blood culture initially positive. Await final report. Plan is for IV antibiotics as an outpatient. #2 hypertension and hypertensive cardiovascular disease. Blood pressure low we will hold patient's atenolol and valsartan #3 coronary artery disease status poor RCA stenting in 2000 and PCI of the obtuse Marginal in 2018. Aspirin 81 mg by mouth daily continue Lipitor 40 mg oral daily. #4 diabetes type 2. Hold metformin and Januvia. Insulin sliding scale. #5 hyperlipidemia continue Lipitor at 40 mg oral daily #6 history of prostate cancer status post radiation therapy currently in remission #7 GERD continue PPI 8. DVT prophylaxis. Heparin subcu. CODE STATUS full code [facility]charge plan: [facility] Impression and plan of care have been directed as dictated by the signing physician. Padma Monsalve nurse practitioner acting as scribe for signing physician.
[2019-07-07] MEDS: HYDROmorphone 0.5 MG/0.5 ML SYRINGE IVP PRN ×2 (15:13→20:36)
[2019-07-07 16:40] LABS: Glucose,Whole Blood 135 mg/dL (75-99)
[2019-07-07 20:25] LABS: Glucose,Whole Blood 146 mg/dL (75-99)
--- NOTE | 2019-07-07 20:35 | PN ---
PROGRESS NOTE DATE OF SERVICE: 07/07/2019. REASON FOR FOLLOWUP: Right hip septic arthritis. INTERVAL HISTORY: The patient's clinical course complicated by development of bacteremia in this patient blood culture grew this morning with gram-positive cocci. The patient currently slightly lethargic from my evaluation, though denies any chest pain, shortness of breath or cough. No abdominal pain. Pain to the right leg is currently controlled. PHYSICAL EXAMINATION: Blood pressure is 130/54 with a pulse of 84, temperature 99. He is 94% on room air. General description: The patient is an elderly male lying in bed in no distress. Respiratory system: Unlabored breathing. Clear to auscultation anteriorly. Heart S1, S2. Regular rate and rhythm. Abdomen soft, no tenderness. LABS: Hemoglobin is 10.5, white count 8.1, creatinine 1.02. Blood culture with presumptive staph aureus. DIAGNOSTIC IMPRESSION AND PLAN: Patient with Staph aureus bacteremia, source is right hip septic arthritis in this patient status post washout right hip. The patient is covered with Vancomycin, to continue. Blood culture repeat, document clearance of bacteremia and monitor clinical course closely. MMODL / IJN: [id number] / [facility]
[2019-07-08] MEDS: HYDROmorphone 0.5 MG/0.5 ML SYRINGE IVP PRN (00:39)
[2019-07-08] MEDS: MORPHINE SULFATE 2 MG/ML SYRINGE IV PRN (05:14)
[2019-07-08] MEDS: SODIUM CHLORIDE 0.9% 1,000 ML IV SCH ×2 (05:23→17:29)
[2019-07-08 05:42] LABS: Basophils % (A) 0 %; Eosinophils % (A) 0 %; HGB 9.7 gm/dL (13.0-17.5); Lymphocytes # (A) 0.3 k/uL (1.0-4.8); Lymphocytes % (A) 7 %; MCH 31.9 pg (25.0-35.0); MCHC 32.5 g/dL (31.0-37.0); MCV 98.3 fL (80.0-100.0); Mean Platelet Volume 7.9; Monocytes # (A) 0.3 k/uL (0-1.0); Monocytes % (A) 7 %; Neutrophils # (A) 3.6 k/uL (1.3-7.7); Neutrophils % (A) 83 %; Platelet Count 114 k/uL (150-450); RBC 3.05 m/uL (4.30-5.90); RDW 13.4 % (11.5-15.5); WBC 4.4 k/uL (3.8-10.6)
[2019-07-08 05:51] LABS: ALT 18 U/L (4-49); AST 21 U/L (17-59); African American GFR (CKD) >90 (>60 ml/min/1.73 sqM); Albumin 2.5 g/dL (3.5-5.0); Alkaline Phosphatase 45 U/L (38-126); Anion Gap 5 mmol/L; Blood Urea Nitrogen 24 mg/dL (9-20); Carbon Dioxide 28 mmol/L (22-30); Chloride 102 mmol/L (98-107); Glucose 119 mg/dL (74-99); Non-African American GFR(CKD) 85 (>60 ml/min/1.73 sqM); Potassium 3.4 mmol/L (3.5-5.1); Sodium 135 mmol/L (137-145); Total Bilirubin 1.3 mg/dL (0.2-1.3); Total Protein 4.8 g/dL (6.3-8.2)
[2019-07-08] MEDS ORDERED: Potassium Replacement Protocol 1 EACH MISC MISCELLANE PRN (05:54)
[2019-07-08 06:37] LABS: Glucose,Whole Blood 118 mg/dL (75-99)
[2019-07-08] MEDS: INSULIN ASPART (NovoLOG) 100 UNIT/ML VIAL SQ SCH ×4 (06:42→21:29)
[2019-07-08] MEDS: POTASSIUM CHLORIDE ER 20 MEQ TAB.ER PO SCH ×2 (07:10→08:21)
[2019-07-08] MEDS: CEFEPIME 2 GM in SODIUM CHLORIDE 0.9% 100 ML IVPB SCH ×2 (08:19→21:29)
[2019-07-08] MEDS: HYDROcodone/APAP 10-325MG 1 EACH TAB PO PRN ×3 (08:19→23:28)
[2019-07-08] MEDS: HEPARIN SODIUM,PORCINE 5,000 UNIT/ML 1 ML VIAL SQ SCH ×2 (08:20→21:29)
[2019-07-08] MEDS: ASPIRIN 81 MG PO SCH (08:20)
[2019-07-08] MEDS: SENNOSIDES-DOCUSATE SODIUM 1 EACH TAB PO SCH (08:20)
[2019-07-08] MEDS: ATORVASTATIN 40 MG TAB PO SCH (08:20)
[2019-07-08] MEDS ORDERED: VANCOMYCIN TROUGH DUE 1 EACH MISC MISCELLANE ONE (09:00)
--- NOTE | 2019-07-08 09:46 | P.PN ---
Subjective Progress Note Date: 07/08/19 Principal diagnosis: Sepsis, right septic hip, atherosclerotic heart disease, type 2 diabetes, hyperlipidemia, history of prostate cancer. 73-year-old male with past medical history of coronary artery disease with the previous history of RCA stenting and PCI involving the obtuse marginal, history of hypertension and hypertensive cardiovascular disease with LVH, type 2 diabetes, hyperlipidemia, history of prostate cancer status post radiation, history of osteoarthritis who was admitted on the 06/20/2019 for a right hip arthroplasty, minimal erythema and swelling was noted on the day of discharge on 06/21. Patient comes in today after he had a fall at home when he was trying to get up to go to the bathroom. Patient is using his walker to walk around the house and is having difficulty with mobility with short distances. Patient in extreme pain and was unable to come out of his bed yesterday. He had nothing by mouth for 2 days due to weakness and unable to come out of that. Patient was found to have a temp of 101.9 in the ER with a heart rate of 120 sinus tachycardia blood pressure is 99/66 on admission. Lactic acid 4. Patient is admitted with sepsis likely secondary to a septic joint. 3 L of IV fluids that with the vancomycin and Unasyn . Infectious disease consulted. ESR CRP, CBC, repeat lactic acid, CMP tomorrow. Continue IV fluids at 75 mL per hour 07/06: The patient was seen by orthopedics and yesterday afternoon went for incision and drainage of the right total hip arthroplasty. Drain was placed. Patient is currently on IV antibiotics and followed by Dr. Strickland. Blood cultures positive for gram-positive cocci. Patient is currently on vancomycin and Unasyn. Patient was stable overnight. He is in isolation until COVID-19 results are completed. Patient is cleared from the intensive care unit to go to regular medical floor but due to isolation needs, patient may stay in the intensive care unit. Patient was seen by Dr. Gordon yesterday as nurse was unable to pass Shelley catheter. He does have definitely catheter in place at this time which can be removed. 07/07: Patient still in isolation currently, COVID-19 result is not back At this point. Patient is doing slightly but better since his surgery with the hip posh, remain on antibiotic for covering gram-positive cocci with vancomycin and Unasyn. Patient will be going for PICC line on Wednesday for possible longer term IV antibiotics when he is ready to be discharged from the hospital. He had bowel movement this morning, pain is under control. Objective - Vital Signs Vital signs: Vital Signs Temp 97.3 F L 07/07/19 22:34 Pulse 106 H 07/07/19 22:34 Resp 12 07/07/19 22:34 BP 138/95 07/07/19 22:34 Pulse Ox 95 07/07/19 22:34 Intake & Output 07/07/19 07/08/19 07/08/19 18:59 06:59 18:59 Intake Total 975 1800 Output Total 1245 865 Balance -270 935 Weight 108.862 kg Intake: IV 900 1800 Cefepime 2 gm In Sodium 100 100 Chloride 0.9% 100 ml @ 200 mls/hr IVPB Q12HR [facility] Rx#:[id number] Sodium Chloride 0.9% 1, 300 1200 000 ml @ 75 mls/hr IV . [id number] [facility] Rx#:[id number] Vancomycin 1,750 mg In 500 500 Sodium Chloride 0.9% 500 ml 500 ml @ 167 mls/hr IVPB Q12H [facility] Rx#: [id number] Intake, IV Titration 75 Amount Sodium Chloride 0.9% 1, 75 000 ml @ 75 mls/hr IV . [id number] [facility] Rx#:[id number] Output: Drainage 120 90 Right Hip 120 90 Urine 1125 775 Other: Voiding Method Indwelling Catheter Indwelling Catheter - Exam Review of systems: CONSTITUTIONAL: Well-developed no acute respiratory distress. EYES: No icterus sclerae, no conjunctivitis. EARS, NOSE, MOUTH, THROAT, and FACE: No sore throat, lymphadenopathy, carotid bruits or deformity. RESPIRATORY: No SOB cough or wheezes. CARDIOVASCULAR: No CP, Palpitation, PND, Orthopnea, or angina. GASTROINTESTINAL: No Abd pain, Nausea or vomiting, positive diarrhea this morning no GI bleed. GENITOURINARY: Negative for Hematuria or UTI, no kidney stones. INTEGUMENT/BREAST: Negative for any muscular injury with mild osteoarthritis.. HEMATOLOGIC/LYMPHATIC: Negative for bleed or purpura. MUSCULOSKELTAL: Still have mild pain and discomfort right hip area with no drainage. NEURLOGICAL: No LOC, Sz or syncope, blurred vision dizziness or abnormality.. BEHAVIORAL/PSYCH: Negative. ENDOCRINE: Negative. Physical examinations: General Appearance: Alert, cooperative, no distress, appears stated age. Mildly overweight. Neck HEENT: Supple, no lymphadenopathy, no thyroid enlargement, no carotid bruits. Lungs: Clear to auscultation without crackles or wheezes no rhonchi, no deformity. Chest Wall: Chest wall normal expansion with deep inspiration no tenderness and no deformity was found on exam, no costochondral pain or discomfort. Heart: Regular rate and rhythm, S1, S2 normal, no murmur, rub or gallop. Back: Symmetric, no curvature, ROM normal, no CVA tenderness. Abdomen: Soft, non-tender, bowel sounds active all four quadrants, no masses, no organomegaly. Extremities: Incision in the right hip looks fine with no major drainage at this point. Slight swelling and induration with trace edema only. Pulses: 2+ and symmetric. Skin: Skin color, texture, tugor normal, no rashes or lesions. Neurologic: Alert oriented x3 cranial nerves II through XII intact, no motor deficit, no abnormal balance or gait. - Labs CBC & Chem 7: 07/08/19 04:54 07/08/19 04:54 Labs: Abnormal Lab Results - Last 24 Hours (Table) 07/07/19 07/07/19 07/07/19 Range/Units 11:38 16:39 20:24 RBC (4.30-5.90) m/uL Hgb (13.0-17.5) gm/dL Hct (39.0-53.0) % Plt Count (150-450) k/uL Lymphocytes # (1.0-4.8) k/uL Sodium (137-145) mmol/L Potassium (3.5-5.1) mmol/L BUN (9-20) mg/dL Glucose (74-99) mg/dL POC Glucose (mg/dL) 194 H 135 H 146 H (75-99) mg/dL Calcium (8.4-10.2) mg/dL Total Protein (6.3-8.2) g/dL Albumin (3.5-5.0) g/dL 07/08/19 07/08/19 07/08/19 Range/Units 04:54 04:54 06:35 RBC 3.05 L (4.30-5.90) m/uL Hgb 9.7 L (13.0-17.5) gm/dL Hct 30.0 L (39.0-53.0) % Plt Count 114 L (150-450) k/uL Lymphocytes # 0.3 L (1.0-4.8) k/uL Sodium 135 L (137-145) mmol/L Potassium 3.4 L (3.5-5.1) mmol/L BUN 24 H (9-20) mg/dL Glucose 119 H (74-99) mg/dL POC Glucose (mg/dL) 118 H (75-99) mg/dL Calcium 7.0 L (8.4-10.2) mg/dL Total Protein 4.8 L (6.3-8.2) g/dL Albumin 2.5 L (3.5-5.0) g/dL Microbiology - Last 24 Hours (Table) 07/07/19 05:59 Blood Culture - Preliminary Blood No Growth after 24 hours 07/06/19 09:20 Blood Culture Gram Stain - Preliminary Blood Blood Culture - Preliminary Staphylococcus aureus 07/06/19 16:30 Gram Stain - Preliminary Hip - Right Wound Culture - Preliminary Presumptive Staph aureus 07/06/19 16:30 Gram Stain - Preliminary Hip - Right Wound Culture - Preliminary Presumptive Staph aureus Assessment and Plan Plan: 1 sepsis: Continue vancomycin and Unasyn at this point awaiting for the final culture, patient had septic hip with infected hip prosthesis post surgery continue to follow recommendation with infectious disease and orthopedic this p oint. Ex 2 pending COVID-19: Continue current precaution especially with patient temperature even his an extremely low risk this point waiting for the final test results before isolation is off. 3 right septic hip: Post I and D with wash continue to treat patient with cefepime and vancomycin. 4 atherosclerotic heart disease post PCI and stent placement of the RCA from 2000 remain on secondary prevention back on atorvastatin and aspirin. 5 type 2 diabetes: Holding metformin and Januvia for now continue patient on sliding scale. 6 history of prostate cancer: Post radiation therapy his in remission. 7 hyperlipidemia: Continue atorvastatin at 40 mg daily. GI and DVT prophylaxis: Continue PPI and heparin subcutaneous for now. Discharge planning: Patient be going home on home infusion by [facility] most likely on Wednesday.
--- NOTE | 2019-07-08 11:04 | P.PN ---
Subjective Progress Note Date: 07/08/19 Principal diagnosis: S/P I and D of right hip arthroplasty Patient is seen at bedside this morning. He is postop day #2 from I and D of total right hip arthroplasty performed 06/20/2019. He has pain at the surgical site as expected but denies any new complaints. He denies numbness, tingling or calf pain. Review of systems is negative for fever, chills, chest pain, shortness of breath or other Objective - Vital Signs Vital signs: Vital Signs Temp 97.7 F 07/08/19 07:00 Pulse 113 H 07/08/19 07:00 Resp 16 07/08/19 07:00 BP 135/74 07/08/19 07:00 Pulse Ox 97 07/08/19 07:00 Intake & Output 07/07/19 07/08/19 07/08/19 18:59 06:59 18:59 Intake Total 975 1800 Output Total 1245 865 Balance -270 935 Weight 108.862 kg Intake: IV 900 1800 Cefepime 2 gm In Sodium 100 100 Chloride 0.9% 100 ml @ 200 mls/hr IVPB Q12HR [facility] Rx#:[id number] Sodium Chloride 0.9% 1, 300 1200 000 ml @ 75 mls/hr IV . [id number] [facility] Rx#:[id number] Vancomycin 1,750 mg In 500 500 Sodium Chloride 0.9% 500 ml 500 ml @ 167 mls/hr IVPB Q12H [facility] Rx#: [id number] Intake, IV Titration 75 Amount Sodium Chloride 0.9% 1, 75 000 ml @ 75 mls/hr IV . [id number] [facility] Rx#:[id number] Output: Drainage 120 90 Right Hip 120 90 Urine 1125 775 Other: Voiding Method Indwelling Catheter Indwelling Catheter - Exam Inspection reveals a benign surgical wound. There is a hemovac in place. There is no active bleeding or drainage. Neurovascular status is intact throughout the lower extremity with motor and sensation fully intact. Calf is soft and nontender. 2+ dorsalis pedis pulse and less than 2 second cap refill is p resent. - Constitutional General appearance: Present: no acute distress - Labs CBC & Chem 7: 07/08/19 04:54 07/08/19 04:54 Labs: Abnormal Lab Results - Last 24 Hours (Table) 07/07/19 07/07/19 07/07/19 Range/Units 11:38 16:39 20:24 RBC (4.30-5.90) m/uL Hgb (13.0-17.5) gm/dL Hct (39.0-53.0) % Plt Count (150-450) k/uL Lymphocytes # (1.0-4.8) k/uL Sodium (137-145) mmol/L Potassium (3.5-5.1) mmol/L BUN (9-20) mg/dL Glucose (74-99) mg/dL POC Glucose (mg/dL) 194 H 135 H 146 H (75-99) mg/dL Calcium (8.4-10.2) mg/dL Total Protein (6.3-8.2) g/dL Albumin (3.5-5.0) g/dL 07/08/19 07/08/19 07/08/19 Range/Units 04:54 04:54 06:35 RBC 3.05 L (4.30-5.90) m/uL Hgb 9.7 L (13.0-17.5) gm/dL Hct 30.0 L (39.0-53.0) % Plt Count 114 L (150-450) k/uL Lymphocytes # 0.3 L (1.0-4.8) k/uL Sodium 135 L (137-145) mmol/L Potassium 3.4 L (3.5-5.1) mmol/L BUN 24 H (9-20) mg/dL Glucose 119 H (74-99) mg/dL POC Glucose (mg/dL) 118 H (75-99) mg/dL Calcium 7.0 L (8.4-10.2) mg/dL Total Protein 4.8 L (6.3-8.2) g/dL Albumin 2.5 L (3.5-5.0) g/dL Microbiology - Last 24 Hours (Table) 07/07/19 05:59 Blood Culture - Preliminary Blood No Growth after 24 hours 07/06/19 09:20 Blood Culture Gram Stain - Preliminary Blood Blood Culture - Preliminary Staphylococcus aureus 07/06/19 16:30 Gram Stain - Preliminary Hip - Right Wound Culture - Preliminary Presumptive Staph aureus 07/06/19 16:30 Gram Stain - Preliminary Hip - Right Wound Culture - Preliminary Presumptive Staph aureus Assessment and Plan (1) Septic arthritis of hip Narrative/Plan: He will continue with routine postop orthopedic protocol including pain management, wound care, drain management, PT, DVT prophylaxis and medical management. He continues to be afebrile and WBC is normal. Will D/C thornton today. D/C Hvac tomorrow likely. Cultures have shown gram positive cocci. Appreciate infectious disease recommendations and is following. Will continue to monitor and make further recommendations as appropriate. Current Visit: Yes Status: Acute Priority: Medium Code(s): M00.9 - PYOGENIC ARTHRITIS, UNSPECIFIED SNOMED Code(s): 611012001 Time with Patient: Less than 30
[2019-07-08 11:38] LABS: Glucose,Whole Blood 159 mg/dL (75-99)
[2019-07-08] MEDS: VANCOMYCIN 1,750 MG in SODIUM CHLORIDE 0.9% 500 ML 500 ML IVPB SCH ×2 (12:47→22:26)
[2019-07-08] MEDS: MULTIVITAMINS, THERA 1 EACH TAB PO SCH (12:48)
[2019-07-08 16:34] LABS: Glucose,Whole Blood 119 mg/dL (75-99)
--- NOTE | 2019-07-08 17:39 | PN ---
PROGRESS NOTE DATE OF SERVICE: 07/08/2019 REASON FOR FOLLOW UP: Staph aureus bacteremia, source is infected right hip. INTERVAL HISTORY: The patient is currently afebrile. Patient has been breathing comfortably. Denies any chest pain, shortness of breath or cough. No abdominal pain. The patient right hip pain is currently controlled. PHYSICAL EXAMINATION: Blood pressure 135/74 with a pulse of 130. Temperature 98.7. He is 97% on room air. General description is an elderly male lying in bed in no distress. Respiratory system: Unlabored breathing. Clear to auscultation anteriorly. Heart S1, S2. Regular rate and rhythm. Abdomen soft, no tenderness. LABS: Hemoglobin 9.7, white count 4.4, BUN of 34, creatinine 0.89. Blood culture with Staph aureus and CT is currently pending. Blood cultures 07/06 has been negative so far. DIAGNOSTIC IMPRESSION AND PLAN: Patient with Staph aureus bacteremia, which looks like MSSA secondary to right hip septic arthritis. Currently waiting for the final ID sensitivity. Blood culture repeat has been negative so far. The patient is covered with Cefepime and vanco, will continue, adjusting antibiotic further once the culture is finalized. Continue supportive care. MMODL / IJN: [id number] /
[2019-07-08 17:55] LABS: Hemoglobin A1C 6.1 % (4.0-6.0)
[2019-07-08 21:16] LABS: Glucose,Whole Blood 177 mg/dL (75-99)
[2019-07-09] MEDS: HYDROcodone/APAP 10-325MG 1 EACH TAB PO PRN ×3 (05:54→19:45)
[2019-07-09] MEDS: VALSARTAN 160 MG TAB PO SCH (06:02)
[2019-07-09] MEDS: SODIUM CHLORIDE 0.9% 1,000 ML IV SCH (06:32)
[2019-07-09] MEDS: INSULIN ASPART (NovoLOG) 100 UNIT/ML VIAL SQ SCH ×4 (06:32→20:49)
[2019-07-09 06:37] LABS: Glucose,Whole Blood 133 mg/dL (75-99)
[2019-07-09] MEDS: ASPIRIN 81 MG PO SCH (08:49)
[2019-07-09] MEDS: ATORVASTATIN 40 MG TAB PO SCH (08:49)
[2019-07-09] MEDS: ATENOLOL 50 MG TAB PO SCH (08:49)
[2019-07-09] MEDS: CEFEPIME 2 GM in SODIUM CHLORIDE 0.9% 100 ML IVPB SCH (08:49)
[2019-07-09] MEDS: HEPARIN SODIUM,PORCINE 5,000 UNIT/ML 1 ML VIAL SQ SCH ×2 (08:50→20:49)
[2019-07-09] MEDS: SENNOSIDES-DOCUSATE SODIUM 1 EACH TAB PO SCH (08:50)
[2019-07-09 08:59] LABS: Basophils % (A) 0 %; Eosinophils % (A) 0 %; HCT 29.7 % (39.0-53.0); Lymphocytes # (A) 0.3 k/uL (1.0-4.8); Lymphocytes % (A) 8 %; MCH 32.5 pg (25.0-35.0); MCHC 33.6 g/dL (31.0-37.0); MCV 96.8 fL (80.0-100.0); Mean Platelet Volume 7.7; Monocytes # (A) 0.2 k/uL (0-1.0); Monocytes % (A) 7 %; Neutrophils # (A) 2.6 k/uL (1.3-7.7); Neutrophils % (A) 82 %; Platelet Count 145 k/uL (150-450); RBC 3.07 m/uL (4.30-5.90); RDW 13.2 % (11.5-15.5); WBC 3.2 k/uL (3.8-10.6)
[2019-07-09] MEDS ORDERED: VANCOMYCIN TROUGH DUE 1 EACH MISC MISCELLANE ONE (09:00)
--- NOTE | 2019-07-09 10:20 | P.PN ---
Subjective Progress Note Date: 07/09/19 Principal diagnosis: S/P I and D of right hip arthroplasty Patient is seen at bedside this morning. He is postop day #3 from I and D of total right hip arthroplasty performed 06/20/2019. He has pain at the surgical site as expected but controlled. He is having some swelling throughout his right leg. He denies numbness, tingling or calf pain. Review of systems is negative for fever, chills, chest pain, shortness of breath or other Objective - Vital Signs Vital signs: Vital Signs Temp 97.9 F 07/09/19 08:44 Pulse 86 07/09/19 08:44 Resp 14 07/09/19 08:44 BP 148/85 07/09/19 08:44 Pulse Ox 95 07/09/19 08:44 Intake & Output 07/08/19 07/09/19 07/09/19 18:59 06:59 18:59 Intake Total 480 Output Total 1290 551 Balance -1290 -71 Weight 112.5 kg Intake: Oral 480 Output: Drainage 90 100 Right Hip 90 100 Urine 1200 450 Stool 1 Other: Voiding Method Indwelling Catheter Indwelling Catheter # Voids 1 - Exam Inspection reveals a benign surgical wound. There is a hemovac in place. There is no active bleeding or drainage. There is diffuse edema throughout the right lower extremity. Neurovascular status is intact throughout the lower extremity with motor and sensation fully intact. Calf is soft and nontender. 2+ dorsalis pedis pulse and less than 2 second cap refill is present. - Constitutional General appearance: Present: no acute distress - Labs CBC & Chem 7: 07/09/19 08:35 07/08/19 04:54 Labs: Abnormal Lab Results - Last 24 Hours (Table) 07/08/19 07/08/19 07/08/19 Range/Units 04:54 11:37 16:32 WBC (3.8-10.6) k/uL RBC (4.30-5.90) m/uL Hgb (13.0-17.5) gm/dL Hct (39.0-53.0) % Plt Count (150-450) k/uL Lymphocytes # (1.0-4.8) k/uL POC Glucose (mg/dL) 159 H 119 H (75-99) mg/dL Hemoglobin A1c 6.1 H (4.0-6.0) % 07/08/19 07/09/19 07/09/19 Range/Units 21:14 06:25 08:35 WBC 3.2 L (3.8-10.6) k/uL RBC 3.07 L (4.30-5.90) m/uL Hgb 10.0 L (13.0-17.5) gm/dL Hct 29.7 L (39.0-53.0) % Plt Count 145 L (150-450) k/uL Lymphocytes # 0.3 L (1.0-4.8) k/uL POC Glucose (mg/dL) 177 H 133 H (75-99) mg/dL Hemoglobin A1c (4.0-6.0) % Microbiology - Last 24 Hours (Table) 07/07/19 05:59 Blood Culture - Preliminary Blood No Growth after 48 hours 07/08/19 04:54 Blood Culture - Preliminary Blood No Growth after 24 hours 07/06/19 09:20 Blood Culture Gram Stain - Final Blood Blood Culture - Final Staphylococcus aureus 07/06/19 16:30 Anaerobic Culture - Preliminary Hip - Right 07/06/19 16:30 Anaerobic Culture - Preliminary Hip - Right 07/06/19 16:30 Gram Stain - Final Hip - Right Wound Culture - Final Staphylococcus aureus 07/06/19 16:30 Gram Stain - Final Hip - Right Wound Culture - Final Staphylococcus aureus Assessment and Plan (1) Septic arthritis of hip Narrative/Plan: I instructed to keep right lower extremity elevated. We will also have him wear ADAIR hose. I have added ASA 325 BID. I have requested Hvac be discontinued today. He will continue with routine postop orthopedic protocol including pain management, wound care, PT, DVT prophylaxis and medical management. Appreciate infectious disease recommendations and following. Expect he will be able to D/C in next 1-2 days based on clinical course and ID recommendations. Will continue to monitor and make further recommendations as appropriate. Current Visit: Yes Status: Acute Priority: Medium Code(s): M00.9 - PYOGENIC ARTHRITIS, UNSPECIFIED SNOMED Code(s): 527839720 Time with Patient: Less than 30
--- NOTE | 2019-07-09 11:07 | P.PN ---
Subjective Progress Note Date: 07/09/19 Principal diagnosis: Sepsis, right septic hip, atherosclerotic heart disease, type 2 diabetes, hyperlipidemia, history of prostate cancer. 73-year-old male with past medical history of coronary artery disease with the previous history of RCA stenting and PCI involving the obtuse marginal, history of hypertension and hypertensive cardiovascular disease with LVH, type 2 diabetes, hyperlipidemia, history of prostate cancer status post radiation, history of osteoarthritis who was admitted on the 06/20/2019 for a right hip arthroplasty, minimal erythema and swelling was noted on the day of discharge on 06/21. Patient comes in today after he had a fall at home when he was trying to get up to go to the bathroom. Patient is using his walker to walk around the house and is having difficulty with mobility with short distances. Patient in extreme pain and was unable to come out of his bed yesterday. He had nothing by mouth for 2 days due to weakness and unable to come out of that. Patient was found to have a temp of 101.9 in the ER with a heart rate of 120 sinus tachycardia blood pressure is 99/66 on admission. Lactic acid 4. Patient is admitted with sepsis likely secondary to a septic joint. 3 L of IV fluids that with the vancomycin and Unasyn . Infectious disease consulted. ESR CRP, CBC, repeat lactic acid, CMP tomorrow. Continue IV fluids at 75 mL per hour 07/06: The patient was seen by orthopedics and yesterday afternoon went for incision and drainage of the right total hip arthroplasty. Drain was placed. Patient is currently on IV antibiotics and followed by Dr. Strickland. Blood cultures positive for gram-positive cocci. Patient is currently on vancomycin and Unasyn. Patient was stable overnight. He is in isolation until COVID-19 results are completed. Patient is cleared from the intensive care unit to go to regular medical floor but due to isolation needs, patient may stay in the intensive care unit. Patient was seen by Dr. Gordon yesterday as nurse was unable to pass Shelley catheter. He does have definitely catheter in place at this time which can be removed. 07/07: Patient still in isolation currently, COVID-19 result is not back At this point. Patient is doing slightly but better since his surgery with the hip posh, remain on antibiotic for covering gram-positive cocci with vancomycin and Unasyn. Patient will be going for PICC line on Wednesday for possible longer term IV antibiotics when he is ready to be discharged from the hospital. He had bowel movement this morning, pain is under control. 07/08: Patient is doing well his test results are not back yet his hemodynamically more stable he was up in the chair today, has been having slight increased swelling in the right leg and the right upper extremity. IV will be switch the left side we will Hep-Lock his IV for now prepare for ROM [place] tomorrow possible IV home antibiotics for the next few weeks. We'll continue PTOT Objective - Vital Signs Vital signs: Vital Signs Temp 97.9 F 07/09/19 08:44 Pulse 86 07/09/19 08:44 Resp 14 07/09/19 08:44 BP 148/85 07/09/19 08:44 Pulse Ox 95 07/09/19 08:44 Intake & Output 07/08/19 07/09/19 07/09/19 18:59 06:59 18:59 Intake Total 480 Output Total 1290 551 Balance -1290 -71 Weight 112.5 kg Intake: Oral 480 Output: Drainage 90 100 Right Hip 90 100 Urine 1200 450 Stool 1 Other: Voiding Method Indwelling Catheter Indwelling Catheter # Voids 1 - Exam Review of systems: CONSTITUTIONAL: Well-developed no acute respiratory distress. EYES: No icterus sclerae, no conjunctivitis. EARS, NOSE, MOUTH, THROAT, and FACE: No sore throat, lymphadenopathy, carotid bruits or deformity. RESPIRATORY: No SOB cough or wheezes. CARDIOVASCULAR: No CP, Palpitation, PND, Orthopnea, or angina. GASTROINTESTINAL: No Abd pain, Nausea or vomiting, positive diarrhea this morning no GI bleed. GENITOURINARY: Negative for Hematuria or UTI, no kidney stones. INTEGUMENT/BREAST: Negative for any muscular injury with mild osteoarthritis.. HEMATOLOGIC/LYMPHATIC: Negative for bleed or purpura. MUSCULOSKELTAL: Still have mild pain and discomfort right hip area with no drainage. NEURLOGICAL: No LOC, Sz or syncope, blurred vision dizziness or abnormality.. BEHAVIORAL/PSYCH: Negative. ENDOCRINE: Negative. Physical examinations: General Appearance: Alert, cooperative, no distress, appears stated age. Mildly overweight. Neck HEENT: Supple, no lymphadenopathy, no thyroid enlargement, no carotid bruits. Lungs: Clear to auscultation without crackles or wheezes no rhonchi, no deformity. Chest Wall: Chest wall normal expansion with deep inspiration no tenderness and no deformity was found on exam, no costochondral pain or discomfort. Heart: Regular rate and rhythm, S1, S2 normal, no murmur, rub or gallop. Back: Symmetric, no curvature, ROM normal, no CVA tenderness. Abdomen: Soft, non-tender, bowel sounds active all four quadrants, no masses, no organomegaly. Extremities: Incision in the right hip looks fine with no major drainage at this point. Slight swelling and induration with trace edema only. Pulses: 2+ and symmetric. Skin: Skin color, texture, tugor normal, no rashes or lesions. Neurologic: Alert oriented x3 cranial nerves II through XII intact, no motor deficit, no abnormal balance or gait. - Labs CBC & Chem 7: 07/09/19 08:35 07/08/19 04:54 Labs: Abnormal Lab Results - Last 24 Hours (Table) 07/08/19 07/08/19 07/08/19 Range/Units 04:54 11:37 16:32 WBC (3.8-10.6) k/uL RBC (4.30-5.90) m/uL Hgb (13.0-17.5) gm/dL Hct (39.0-53.0) % Plt Count (150-450) k/uL Lymphocytes # (1.0-4.8) k/uL POC Glucose (mg/dL) 159 H 119 H (75-99) mg/dL Hemoglobin A1c 6.1 H (4.0-6.0) % 07/08/19 07/09/19 07/09/19 Range/Units 21:14 06:25 08:35 WBC 3.2 L (3.8-10.6) k/uL RBC 3.07 L (4.30-5.90) m/uL Hgb 10.0 L (13.0-17.5) gm/dL Hct 29.7 L (39.0-53.0) % Plt Count 145 L (150-450) k/uL Lymphocytes # 0.3 L (1.0-4.8) k/uL POC Glucose (mg/dL) 177 H 133 H (75-99) mg/dL Hemoglobin A1c (4.0-6.0) % Microbiology - Last 24 Hours (Table) 07/07/19 05:59 Blood Culture - Preliminary Blood No Growth after 48 hours 07/08/19 04:54 Blood Culture - Preliminary Blood No Growth after 24 hours 07/06/19 09:20 Blood Culture Gram Stain - Final Blood Blood Culture - Final Staphylococcus aureus 07/06/19 16:30 Anaerobic Culture - Preliminary Hip - Right 07/06/19 16:30 Anaerobic Culture - Preliminary Hip - Right 07/06/19 16:30 Gram Stain - Final Hip - Right Wound Culture - Final Staphylococcus aureus 07/06/19 16:30 Gram Stain - Final Hip - Right Wound Culture - Final Staphylococcus aureus Assessment and Plan Plan: 1 sepsis: Continue vancomycin and Unasyn at this point awaiting for the final culture, patient had septic hip with infected hip prosthesis post surgery continue to follow recommendation with infectious disease and orthopedic this point. 2 pending COVID-19: Continue current precaution especially with patient temp erature even his an extremely low risk this point waiting for the final test results before isolation is off. 3 right septic hip: Post I and D with wash continue to treat patient with cefepime and vancomycin. 4 increased edema and swelling: Mostly secondary to stasis on the right side where his surgical site was done and not doing any mobility currently watch for any sign and symptom blood clot otherwise diuretics can be use if needed. 5 atherosclerotic heart disease post PCI and stent placement of the RCA from 2000 remain on secondary prevention back on atorvastatin and aspirin. 6 type 2 diabetes: Holding metformin and Januvia for now continue patient on sliding scale. 7 history of prostate cancer: Post radiation therapy his in remission. 8 hyperlipidemia: Continue atorvastatin at 40 mg daily. GI and DVT prophylaxis: Continue PPI and heparin subcutaneous for now. Discharge planning: Patient be going home on home infusion by [facility] most likely on Wednesday.
[2019-07-09] MEDS: VANCOMYCIN 1,750 MG in SODIUM CHLORIDE 0.9% 500 ML 500 ML IVPB SCH (11:26)
[2019-07-09 11:40] LABS: Glucose,Whole Blood 135 mg/dL (75-99)
[2019-07-09] MEDS: MULTIVITAMINS, THERA 1 EACH TAB PO SCH (12:45)
[2019-07-09 16:36] LABS: Glucose,Whole Blood 180 mg/dL (75-99)
--- NOTE | 2019-07-09 19:41 | PN ---
PROGRESS NOTE DATE OF SERVICE: 07/09/2019 REASON FOR FOLLOWUP: Right hip septic arthritis with MSSA bacteremia. INTERVAL HISTORY: The patient is currently afebrile. Patient has been breathing comfortably. The patient denies any chest pain or shortness of breath. No cough. Pain to the right hip is currently controlled. No nausea, vomiting. No abdominal pain. No diarrhea. PHYSICAL EXAMINATION: Blood pressure 142/85 with a pulse of 86. Temperature 97.9. He is 95% on room air. General description is an elderly male lying in bed in no distress. Respiratory system: Unlabored breathing. Clear to auscultation anteriorly. Heart S1, S2. Regular rate and rhythm. ABDOMEN: Soft. No tenderness. LABS: Hemoglobin is 10, white count 3.0, Vanco trough is 20.2. Blood culture repeat 07/06 and 07/07 has been negative. Local culture as the results are finalized with MSSA. DIAGNOSTIC IMPRESSION AND PLAN: Patient with MSSA bacteremia, source is right hip septic arthritis in this patient who is status post I and D and drain placement. We will discuss further with Ortho, more definitive surgical procedure as with infection going down septic joint, trying to eradicate infection without removal of the infected prosthesis will be hard. Antibiotic will be adjusted to cefazolin 2 g q.8 hours and monitor clinical course closely. MMODL / IJN: [id number] / CHASITY
[2019-07-09 20:44] LABS: Glucose,Whole Blood 147 mg/dL (75-99)
[2019-07-09] MEDS: ASPIRIN 325 MG TAB PO SCH (20:49)
[2019-07-10] MEDS: HYDROcodone/APAP 10-325MG 1 EACH TAB PO PRN ×2 (01:01→06:28)
[2019-07-10 05:43] LABS: Basophils % (A) 0 %; Eosinophils % (A) 0 %; HGB 11.6 gm/dL (13.0-17.5); Lymphocytes # (A) 0.4 k/uL (1.0-4.8); Lymphocytes % (A) 10 %; MCH 32.9 pg (25.0-35.0); MCV 99.7 fL (80.0-100.0); Mean Platelet Volume 7.7; Monocytes # (A) 0.2 k/uL (0-1.0); Monocytes % (A) 5 %; Neutrophils # (A) 3.4 k/uL (1.3-7.7); Neutrophils % (A) 82 %; Platelet Count 127 k/uL (150-450); RBC 3.52 m/uL (4.30-5.90); RDW 13.5 % (11.5-15.5); WBC 4.2 k/uL (3.8-10.6)
[2019-07-10 06:22] LABS: Glucose,Whole Blood 137 mg/dL (75-99)
[2019-07-10] MEDS: VALSARTAN 160 MG TAB PO SCH (06:29)
[2019-07-10] MEDS: INSULIN ASPART (NovoLOG) 100 UNIT/ML VIAL SQ SCH ×2 (06:29→13:26)
[2019-07-10] MEDS: ASPIRIN 81 MG PO SCH (09:50)
[2019-07-10] MEDS: ATORVASTATIN 40 MG TAB PO SCH (09:50)
[2019-07-10] MEDS: ASPIRIN 325 MG TAB PO SCH (09:50)
[2019-07-10] MEDS: SENNOSIDES-DOCUSATE SODIUM 1 EACH TAB PO SCH (09:51)
[2019-07-10] MEDS: ATENOLOL 50 MG TAB PO SCH (09:51)
[2019-07-10] MEDS: HEPARIN SODIUM,PORCINE 5,000 UNIT/ML 1 ML VIAL SQ SCH (09:51)
[2019-07-10] MEDS: MULTIVITAMINS, THERA 1 EACH TAB PO SCH (09:51)
[2019-07-10] MEDS ORDERED: hydrALAZINE HCL 25 MG TAB PO PRN (09:57)
--- NOTE | 2019-07-10 10:20 | P.PN ---
Subjective Progress Note Date: 07/10/19 Principal diagnosis: S/P I and D of right hip arthroplasty Patient is seen at bedside this morning. He is postop day #4 from I and D of total right hip arthroplasty performed 06/20/2019. He has pain at the surgical site as expected but controlled. He continues to have some swelling throughout his right leg. I had advised to wear adiar hose and elevate. He has no new complaints today. He denies numbness, tingling or calf pain. Review of systems is negative for fever, chills, chest pain, shortness of breath or other Objective - Vital Signs Vital signs: Vital Signs Temp 97.8 F 07/10/19 06:32 Pulse 76 07/10/19 06:32 Resp 20 07/10/19 06:32 BP 171/87 07/10/19 06:32 Pulse Ox 96 07/10/19 06:32 Intake & Output 07/09/19 07/10/19 07/10/19 18:59 06:59 18:59 Intake Total 520 137 Output Total 600 250 Balance -80 -113 Intake: IV 520 137 Sodium Chloride 0.9% 1, 20 000 ml @ 75 mls/hr IV . [id number] LAURA Rx#:[id number] Vancomycin 1,750 mg In 500 137 Sodium Chloride 0.9% 500 ml 500 ml @ 167 mls/hr IVPB Q12H LAURA Rx#: [id number] Output: Urine 600 250 - Exam Inspection reveals a benign surgical wound. There is a hemovac has been discontinued. There is no active bleeding or drainage. There is diffuse edema throughout the right lower extremity which is stable or improved. Neurovascular status is intact throughout the lower extremity with motor and sensation fully intact. Calf is soft and nontender. 2+ dorsalis pedis pulse and less than 2 second cap refill is present. - Constitutional General appearance: Present: no acute distress - Labs CBC & Chem 7: 07/10/19 05:01 07/08/19 04:54 Labs: Abnormal Lab Results - Last 24 Hours (Table) 07/09/19 07/09/19 07/09/19 Range/Units 11:39 16:35 20:42 RBC (4.30-5.90) m/uL Hgb (13.0-17.5) gm/dL Hct (39.0-53.0) % Plt Count (150-450) k/uL Lymphocytes # (1.0-4.8) k/uL POC Glucose (mg/dL) 135 H 180 H 147 H (75-99) mg/dL 07/10/19 07/10/19 Range/Units 05:01 06:20 RBC 3.52 L (4.30-5.90) m/uL Hgb 11.6 L (13.0-17.5) gm/dL Hct 35.0 L (39.0-53.0) % Plt Count 127 L (150-450) k/uL Lymphocytes # 0.4 L (1.0-4.8) k/uL POC Glucose (mg/dL) 137 H (75-99) mg/dL Microbiology - Last 24 Hours (Table) 07/07/19 05:59 Blood Culture - Preliminary Blood No Growth after 72 hours 07/08/19 04:54 Blood Culture - Preliminary Blood No Growth after 48 hours Assessment and Plan (1) Septic arthritis of hip Narrative/Plan: I advised to continue to elevate right lower extremity.Continue ADAIR hose. There are no further plans for immediate surgical intervention. He will continue with routine postop orthopedic protocol including pain management, wound care, PT, DVT prophylaxis and medical management. Continue IV antibiotics per ID. He may discharge when ok with infectious disease and medicine. Current Visit: Yes Status: Acute Priority: Medium Code(s): M00.9 - PYOGENIC ARTHRITIS, UNSPECIFIED SNOMED Code(s): 878383288 Time with Patient: Less than 30
[2019-07-10 11:58] LABS: Glucose,Whole Blood 167 mg/dL (75-99)
[2019-07-10] MEDS ORDERED: LIDOCAINE 1% INJ 10MG/ML (20 ML MDV) SQ ONE (12:34)
[2019-07-10 12:57] VITALS: BMI 32.7
--- NOTE | 2019-07-10 12:57 | XR ---
EXAMINATION TYPE: XR chest 1V confirm line [facility] DATE OF EXAM: 07/10/2019 COMPARISON: 07/06/2019 HISTORY: PICC placement TECHNIQUE: Single frontal view of the chest is obtained. FINDINGS: Left sided PICC appears deep within the right atrium and could be retracted 4-5 cm for opt imal placement. Low lung volumes exaggerating the pulmonary vasculature, particularly on the left als o secondary to rotation. Rotation the mediastinum is also seen secondary to patient positioning. Blun ting the costophrenic angles likely attributable to trace pleural effusions. No acute osseous patholo gy. IMPRESSION: Left PICC terminates within the right atrium and could be retracted 4 to 5 cm for optima l placement. There are likely trace pleural effusions however findings may be exaggerated by low lung volumes.
--- NOTE | 2019-07-10 13:17 | IR ---
EXAMINATION TYPE: IR cvc insert >=5 years DATE OF EXAM: 07/10/2019 COMPARISON: NONE HISTORY: Infection, sepsis, needs long-term intravenous access for antibiotics FINDINGS: Maximal barrier technique was utilized. Hand hygiene obtained with soap and water. The ski n overlying the left basilic vein was localized with ultrasound and noted to be compressible and bradshaw nt by ultrasound. An ultrasound image was obtained and submitted on patient's chart. Sterile techniq ue utilized with the ultrasound machine. The skin overlying was prepped and draped and Lidocaine used for local anesthesia. A skin miah was made with a scalpel. Access was gained to the vein under dir ect ultrasound guidance with a 21-gauge needle and a 0.018 inch wire was advanced. Access site was d ilated with a peel-away sheath and the catheter tailored to length. Catheter advanced centrally and a post procedure chest x-ray verified placement within the right atrium, the catheter was retracted 2 cm. Catheter was fixed to the skin and a sterile dressing placed. Hemostasis achieved and the cath eter was aspirated and flushed with sterile saline. The patient remained in stable condition. IMPRESSION: STATUS POST ULTRASOUND GUIDED PICC LINE PLACEMENT, READY FOR USE. THIS PROCEDURE WAS PER FORMED BY THE UNDERSIGNED.
--- NOTE | 2019-07-10 14:48 | P.DS ---
Providers Date of admission: 07/06/19 12:02 Expected date of discharge: 07/10/19 Attending physician: Cari Harper MD Consults: 07/06/19 12:01 Consult Physician Urgent Consulting Provider: Raji Choi Consult Reason/Comments: hip pain, sepsis Do you want consulting provider notified?: Already Contacted 07/06/19 12:02 Consult Physician Stat Consulting Provider: Eliezer Lyons Consult Reason/Comments: critical care Do you want consulting provider notified?: Already Contacted 07/06/19 12:40 Consult Physician Routine Consulting Provider: Yessy Strickland Consult Reason/Comments: sepsis, possible septic hip Do you want consulting provider notified?: Yes 07/06/19 14:24 Consult Physician Stat Consulting Provider: Amandeep Wiggins Consult Reason/Comments: urinary retention, OR at 3 Do you want consulting provider notified?: Yes Primary care physician: German Astudillo [facility] Course: 73-year-old male with past medical history of coronary artery disease with the previous history of RCA stenting and PCI involving the obtuse marginal, history of hypertension and hypertensive cardiovascular disease with LVH, type 2 diabetes, hyperlipidemia, history of prostate cancer status post radiation, history of osteoarthritis who was admitted on the 06/20/2019 for a right hip arthroplasty, minimal erythema and swelling was noted on the day of discharge on 06/21. Patient comes in today after he had a fall at home when he was trying to get up to go to the bathroom. Patient is using his walker to walk around the house and is having difficulty with mobility with short distances. Patient in extreme pain and was unable to come out of his bed yesterday. He had nothing by mouth for 2 days due to weakness and unable to come out of that. Patient was found to have a temp of 101.9 in the ER with a heart rate of 120 sinus tachycardia blood pressure is 99/66 on admission. Lactic acid 4. Patient is admitted with sepsis likely secondary to a septic joint. 3 L of IV fluids that with the vancomycin and Unasyn . Infectious disease consulted. ESR CRP, CBC, repeat lactic acid, CMP tomorrow. Continue IV fluids at 75 mL per hour 07/06: The patient was seen by orthopedics and yesterday afternoon went for incision and drainage of the right total hip arthroplasty. Drain was placed. Patient is currently on IV antibiotics and followed by Dr. Strickland. Blood culture s positive for gram-positive cocci. Patient is currently on vancomycin and Unasyn. Patient was stable overnight. He is in isolation until COVID-19 results are completed. Patient is cleared from the intensive care unit to go to regular medical floor but due to isolation needs, patient may stay in the intensive care unit. Patient was seen by Dr. Gordon yesterday as nurse was unable to pass Shelley catheter. He does have definitely catheter in place at this time which can be removed. 07/07: Patient still in isolation currently, COVID-19 result is not back At this point. Patient is doing slightly but better since his surgery with the hip posh, remain on antibiotic for covering gram-positive cocci with vancomycin and Unasyn. Patient will be going for PICC line on Wednesday for possible longer term IV antibiotics when he is ready to be discharged from the hospital. He had bowel movement this morning, pain is under control. 07/08: Patient is doing well his test results are not back yet his hemodynamically more stable he was up in the chair today, has been having slight increased swelling in the right leg and the right upper extremity. IV will be switch the left side we will Hep-Lock his IV for now prepare for ROM [place] tomorrow possible IV home antibiotics for the next few weeks. We'll continue PTOT 07/09: Patient remains in the intensive care unit. Dr. Strickland has changed an tibiotics to cefazolin 2 g every 8 hours. Case management is working on setting this up as an outpatient. We will order a PICC line insertion. Orthopedics has recommended continuing elevation of the right lower extremity, ADAIR escalera. Orthopedics has cleared the patient for discharge once discharge was been arranged. Patient has been afebrile, heart rate 89, blood pressure 171/87, pulse ox 94% on room air. Hydralazine added 25 mg every 6 hours as needed for blood pressure greater than 160. Repeat blood work reveals WBC 4.2, hemoglobin 11.6, platelet count 127. Blood sugars running between 147 and 167. Blood and hip culture positive for MSSA. Repeat blood cultures are no growth at 72 hours. COVID-19 is pending. Discharge diagnoses: 1. Sepsis secondary to septic right hip arthroplasty status post incision and drainage. 2. Hypertension hypertensive cardiovascular disease. 3. Coronary artery disease status post RCA stenting in 2000 and PCI of the obtuse marginal in 2018. 4. Diabetes mellitus type 2. 5. Hyperlipidemia. 6. History of prostate cancer status post radiation therapy currently in remission. 7. GERD. 8. Hyperlipidemia. Discharge plan: [facility] home care with [facility] infusion Impression and plan of care have been directed as dictated by the signing physician. Padma Monsalve nurse practitioner acting as scribe for signing physician. Patient Condition at Discharge: Serious Plan - Discharge Summary Discharge Rx Participant: No New Discharge Prescriptions: New ceFAZolin [Kefzol] 2,000 mg IVPB Q8HR #126 vial Acetaminophen Tab [Tylenol] 650 mg PO Q4HR PRN tab PRN Reason: Fever And/Or Mild Pain hydrALAZINE HCL [Apresoline] 25 mg PO TID #90 tab Continue Atorvastatin Calcium [Lipitor] 40 mg PO QAM sitaGLIPtin PHOS/metFORMIN HCL [Janumet 50-1,000 mg Tablet] 1 tab PO DAILY@1200 Atenolol 50 mg PO DAILY Hydrocodone/Acetaminophen [Hydrocodone-Acetamin 10-300 mg] 1 tab PO TID PRN PRN Reason: Pain Aspirin 325 mg PO BID #60 tab Sennosides-Docusate Sodium [Senokot-S] 2 tab PO DAILY #30 tablet Valsartan [Diovan] 160 mg PO DAILY@0600 tab Discharge Medication List Atorvastatin Calcium [Lipitor] 40 mg PO QAM 11/01/14 [History] sitaGLIPtin PHOS/metFORMIN HCL [Janumet 50-1,000 mg Tablet] 1 tab PO DAILY@1200 06/08/17 [History] Atenolol 50 mg PO DAILY 05/25/18 [History] Hydrocodone/Acetaminophen [Hydrocodone-Acetamin 10-300 mg] 1 tab PO TID PRN 0811/04 [History] Aspirin 325 mg PO BID #60 tab 06/21/19 [Rx] Sennosides-Docusate Sodium [Senokot-S] 2 tab PO DAILY #30 tablet 06/21/19 [Rx] Valsartan [Diovan] 160 mg PO DAILY@0600 tab 06/22/19 [Rx] Acetaminophen Tab [Tylenol] 650 mg PO Q4HR PRN tab 07/10/19 [Rx] ceFAZolin [Kefzol] 2,000 mg IVPB Q8HR #126 vial 07/10/19 [Rx] hydrALAZINE HCL [Apresoline] 25 mg PO TID #90 tab 07/10/19 [Rx] Follow up Appointment(s)/Referral(s): German Astudillo MD [Primary Care Provider] - 1 Week [facility], [NON-STAFF] - [facility], [REFERRING] - Raji Choi DO [Doctor of Osteopathic Medicine] - 10 Days Yessy Strickland MD [STAFF PHYSICIAN] - 3 Weeks Ambulatory/Diagnostic Orders: C Reactive Protein [LAB.AMB] Location: None Selected Complete Blood Count w/diff [LAB.AMB] Location: None Selected Comprehensive Metabolic Panel [LAB.AMB] Location: None Selected Erythrocyte Sedimentation Rate [LAB.AMB] Location: None Selected Activity/Diet/Wound Care/Special Instructions: Keep wound clean and dry Take meds as directed Follow-up with Dr. Choi in office Weight bear as tolerated May shower in 3 days if no bleeding Discharge Disposition: HOME WITH HOME HEALTH SERVICES
[2019-07-10 16:00] VITALS: BP 141/82; PULSE 81; RESP 15; TEMP 97.7
--- NOTE | 2019-07-10 17:29 | PN ---
PROGRESS NOTE DATE OF SERVICE: 07/10/2019 REASON FOR FOLLOWUP: MSSA bacteremia secondary to right hip septic arthritis. INTERVAL HISTORY: The patient is currently afebrile. The patient has been breathing comfortably. The patient denies having any chest pain or shortness of breath or cough. No nausea or vomiting. Pain to the right hip is currently controlled. PHYSICAL EXAMINATION: Blood pressure is 171/87 with a pulse of 89, temperature 97.9. He is 94% on room air. General description is an elderly male lying in bed in no distress. RESPIRATORY SYSTEM: Unlabored breathing. Clear to auscultation anteriorly. HEART: S1, S2. Regular rate and rhythm. ABDOMEN: Soft. No tenderness. LABS: White count 4.2. Blood culture repeat on 07/08/19 has been negative. DIAGNOSTIC IMPRESSION AND PLAN: Patient with methicillin-susceptible Staphylococcus aeruginosa bacteremia. Source is likely right hip septic arthritis in this patient who is status post I&D with the infected prosthesis not removed. Healing of this infection completely will not be possible. This has been discussed in detail with the ortho team. The PA will be discussing it further with the surgeon. For now, cefazolin 2 grams q.8 hours for 6 weeks with weekly monitoring of CBC, BMP and sed rate. CRP was 417 and a sed rate of 28. MMODL / IJN: [id number] /
--- NOTE | 2019-07-19 14:43 | CDI ---
Documentation Clarification Form Date: From: Angelia Mcgill Admit Date: 07/06/2019 12:02:00 PM Patient Name: Burt Berkowitz Visit Number: [id number] Discharge Date: 07/10/2019 04:20:00 PM ATTENTION: The Clinical Documentation Specialists (CDI) and [facility] Coding Staff appreciate your assistance in clarifying documentation. Please respond to the clarification below the line at the bottom and electronically sign. The CDI & [facility] Coding staff will review the response and follow-up if needed. Please note: Queries are made part of the Legal Health Record. If you have any questions, please contact the author of this message via ITS. Dr. Cari Harper Coronavirus detected is documented in the Coronavirus (PCR) lab findings. Pt presented for sepsis secondary to a septic joint. Patient history/risk factors: 73 yo with a h/o CAD, HTN, DM type 2, HLD Clinical Indicators: In ER, temp 101.9, tachycardia. Per IM consult on 07/05, decreased breath sounds CXR 07/05: atelectasis of the left lower lobe Labs 07/05: Coronavirus PCR - detected Treatment: monitoring, isolation protovol In order to capture the severity of condition, please clarify if the above treatment/clinical indicators signify: COVID-19 Suspected COVID-19 ruled out COVID-19 confirmed Other, please specify Unable to determine (Last Form Revision: June 2019) COVID 19 confirmed MTDD
== END 2019-07-10 16:20 | disposition home health service (06) | DRG 480 ==
LOC: EC 08:55 → 2SICU 12:02
PROVIDERS: ADMIT Internal Medicine; ATTEND Internal Medicine
PROC: 0S9900Z Drainage of Right Hip Joint with Drainage Device, Open Approach (ICD-10-PCS; principal; 2019-07-06 15:30)
PROC: 02H633Z Insertion of Infusion Device into Right Atrium, Percutaneous Approach (ICD-10-PCS; 2019-07-10)
DX: T84.51XA Infection and inflammatory reaction due to internal right hip prosthesis, initial encounter (principal); A41.01 Sepsis due to Methicillin susceptible Staphylococcus aureus; R65.21 Severe sepsis with septic shock; N17.0 Acute kidney failure with tubular necrosis; M00.051 Staphylococcal arthritis, right hip; J98.11 Atelectasis; M50.20 Other cervical disc displacement, unspecified cervical region; D63.8 Anemia in other chronic diseases classified elsewhere; I11.9 Hypertensive heart disease without heart failure; B97.29 Other coronavirus as the cause of diseases classified elsewhere; B95.61 Methicillin susceptible Staphylococcus aureus infection as the cause of diseases classified elsewhere; R33.9 Retention of urine, unspecified; E11.9 Type 2 diabetes mellitus without complications; E78.5 Hyperlipidemia, unspecified; N35.911 Unspecified urethral stricture, male, meatal; I25.10 Atherosclerotic heart disease of native coronary artery without angina pectoris; K21.9 Gastro-esophageal reflux disease without esophagitis; M19.90 Unspecified osteoarthritis, unspecified site; R26.9 Unspecified abnormalities of gait and mobility; E66.9 Obesity, unspecified; Z68.32 Body mass index [BMI] 32.0-32.9, adult; Z79.82 Long term (current) use of aspirin; Z79.84 Long term (current) use of oral hypoglycemic drugs; Z79.899 Other long term (current) drug therapy; Z85.46 Personal history of malignant neoplasm of prostate; Z87.891 Personal history of nicotine dependence; Z92.3 Personal history of irradiation; Z95.5 Presence of coronary angioplasty implant and graft; Z96.652 Presence of left artificial knee joint; Z82.49 Family history of ischemic heart disease and other diseases of the circulatory system; Z98.42 Cataract extraction status, left eye; Z98.41 Cataract extraction status, right eye; Z96.1 Presence of intraocular lens; Z80.49 Family history of malignant neoplasm of other genital organs; Z80.9 Family history of malignant neoplasm, unspecified; Z84.89 Family history of other specified conditions; W19.XXXA Unspecified fall, initial encounter; Y92.009 Unspecified place in unspecified non-institutional (private) residence as the place of occurrence of the external cause; Y79.2 Prosthetic and other implants, materials and accessory orthopedic devices associated with adverse incidents
CPT/HCPCS: 36415; 36573; 71046; 73502; 80053; 80202; 81001; 83036; 83605; 83880; 85025; 85610; 85652; 85730; 86140; 87040; 87070; 87075; 87077; 87186; 87205; 87502; 93005; 96365; 99284

== ENCOUNTER → 2019-08-16 | Outpatient (CLI) | payer MEDICARE, BC ==
--- NOTE | 2019-08-16 09:30 | US ---
EXAMINATION TYPE: US venous doppler duplex LE RT DATE OF EXAM: 08/16/2019 8:42 AM COMPARISON: NONE CLINICAL HISTORY: I80.9 Phlebitis/thrombophlebitis. Redness right lower leg, edema right foot, right hip replacement 07/06/19 SIDE PERFORMED: Right TECHNIQUE: The lower extremity deep venous system is examined utilizing real time linear array sonog daina with graded compression, doppler sonography and color-flow sonography. VESSELS IMAGED: External Iliac Vein (EIV) Common Femoral Vein Deep Femoral Vein Greater Saphenous Vein * Femoral Vein Popliteal Vein Small Saphenous Vein * Proximal Calf Veins (* superficial vessels) Right Leg: No evidence of DVT IMPRESSION: 1. Right lower extremity ultrasound negative for deep venous thrombosis
== END | disposition home or self-care (01) ==
LOC: RADUSWWP 08:12
PROVIDERS: ATTEND Orthopaedic Surgery
DX: I80.9 Phlebitis and thrombophlebitis of unspecified site (principal); M79.661 Pain in right lower leg

== ENCOUNTER 2019-09-07 02:08 | Emergency (ER) | payer MEDICARE, BC ==
[2019-09-07 02:24] VITALS: RESP 18
[2019-09-07] MEDS ORDERED: KETOROLAC 30 MG/ML 1 ML VIAL IM STA (02:37)
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
[2019-09-07] MEDS ORDERED: HYDROcodone/APAP 7.5-325MG 1 EACH TAB PO ONE (02:43)
[2019-09-07 03:02] VITALS: BP 114/79; PULSE 91
== END 2019-09-07 03:00 | disposition home or self-care (01) ==
LOC: EC 02:08
DX: Z76.0 Encounter for issue of repeat prescription (principal); M25.551 Pain in right hip; E78.5 Hyperlipidemia, unspecified; I25.10 Atherosclerotic heart disease of native coronary artery without angina pectoris; E11.9 Type 2 diabetes mellitus without complications; I10 Essential (primary) hypertension; M19.90 Unspecified osteoarthritis, unspecified site; I25.2 Old myocardial infarction; Z96.641 Presence of right artificial hip joint; Z96.652 Presence of left artificial knee joint; Z85.46 Personal history of malignant neoplasm of prostate; Z95.818 Presence of other cardiac implants and grafts; Z95.5 Presence of coronary angioplasty implant and graft; Z87.891 Personal history of nicotine dependence; Z79.891 Long term (current) use of opiate analgesic; Z79.84 Long term (current) use of oral hypoglycemic drugs; Z79.899 Other long term (current) drug therapy
CPT/HCPCS: 99284; 96372; J1885

== ENCOUNTER 2019-12-13 14:34 | Inpatient (IN) | payer MEDICARE, BC ==
[2019-12-13] MEDS ORDERED: ASPIRIN 81 MG PO STA (14:56)
--- NOTE | 2019-12-13 15:02 | ED ---
General Adult HPI - General Chief complaint: Chest Pain Stated complaint: Chest Pain, High BP Time Seen by Provider: 12/13/19 14:44 Source: patient Mode of arrival: wheelchair Limitations: no limitations - History of Present Illness Initial comments: Dictation was produced using [employer] dictation software. please excuse any grammatical, word or spelling errors. This patient was cared for during a federal and state declared state of emergency secondary to Covid 19 Chief Complaint: 74-year-old male past medical history coronary artery disease presents with chest pain. History of Present Illness: 74-year-old male presents with exertional chest pain. Patient states over the last week he noted that he would have onset of chest pain whenever he exerts himself. For example he provides is that whenever he moves or does any sort of cleaning around the house he would develop left anterior chest pressure. He describes the pain as stabbing. There is some radiation to his left shoulder. He saw Dr. Astudillo last week and was told to follow-up with cardiology. Patient called cardiology and was told by executive secretary social welfare to wait for his appointment in December. Patient then called his primary care doctor and told to come to the emergency department right away. Patient states that he is currently asymptomatic. He states he feels well. He does have history of coronary artery disease. During patient's most recent cardiac catheterization and found that patient did have some stenosis however was not severe enough for stent placement.. Denies any cough. No association of some breath. No radiation of symptoms back. Denies any abdominal pain. The ROS documented in this emergency department record has been reviewed and confirmed by me. Those systems with pertinent positive or negative responses have been documented in the HPI. All other systems are other negative and/or noncontributory. PHYSICAL EXAM: General Impression: Alert and oriented x3, not in acute distress HEENT: Normocephalic atraumatic, extra-ocular movements intact, pupils equal and reactive to light bilaterally, mucous membranes moist. Cardiovascular: Heart regular rate and rhythm Chest: Able to complete full sentences, no retractions, no tachypnea Abdomen: abdomen soft, non-tender, non-distended, no organomegaly Musculoskeletal: Pulses present and equal in all extremities, no peripheral edema Motor: no focal deficits noted Neurological: CN II-XII grossly intact, no focal motor or sensory deficits noted Skin: Intact with no visualized rashes Psych: Normal affect and mood ED course: 74-year-old male with past medical history of coronary artery disease, stent placement presents with exertional chest pain. He is currently asymptomatic at this time. Vital signs upon arrival are within acceptable limits. EKG does not show myocardial infarction. Patient given aspirin. Chart review was performed. Cardiac catheterization note was performed on 08/27/2017. According to that procedure there was significant stenosis in the first obtuse marginal branch with minimal progression compared to April 2017. There is also mild to moderate triple-vessel coronary artery disease. Recommendations at that time were to improve symptoms with medical therapy. Laboratory evaluation obtained. CBC is unremarkable. Coag panel is unremarkable. Metabolic panel is negative. Troponin is negative. All his labs appear to be around baseline at this time. Chest x-ray is nonacute. Patient reevaluated at bedside. He is continuing to be asymptomatic. However, given his medical history patient be admitted for serial troponins and cardiology cons ultation. Case was discussed with Dr. Astudillo, patient's PCP who is willing to accept patients care. EKG interpretation: Ventricular rate Lasix, sinus rhythm, ID interval 212, QRS 80, QTc 438. No ID prolongation, no QTC prolongation, no ST or T-wave changes noted. EKG compared to 07/06/2019 showing no changes. Overall, this EKG is unremarkable - Related Data Home Medications Medication Instructions Recorded Confirmed Atorvastatin Calcium [Lipitor] 40 mg PO QAM 11/01/14 12/13/19 atenoloL [Atenolol] 50 mg PO DAILY 05/25/18 12/13/19 Aspirin EC [Ecotrin Low Dose] 81 mg PO DAILY 12/13/19 12/13/19 HYDROcodone/APAP 10-325MG [[place] 1 tab PO QID PRN 12/13/19 12/13/19 10-325] Valsartan/Hydrochlorothiazide 1 tab PO HS 12/13/19 12/13/19 [Valsartan-Hctz 320-12.5 mg Tab] sitaGLIPtin PHOS/metFORMIN HCL 1 tab PO DAILY 12/13/19 12/13/19 [Janumet Xr 100-1,000 mg Tablet] Previous Rx's Medication Instructions Recorded Acetaminophen Tab [Tylenol] 650 mg PO Q4HR PRN tab 07/10/19 Allergies Allergy/AdvReac Type Severity Reaction Status Date / Time No Known Allergies Allergy Verified 12/13/19 15:22 Review of Systems ROS Statement: Those systems with pertinent positive or pertinent negative responses have been documented in the HPI. ROS Other: All systems not noted in ROS Statement are negative. Past Medical History Past Medical History: Coronary Artery Disease (CAD), Cancer, Chest Pain / Angina, Diabetes Mellitus, GERD/Reflux, Hyperlipidemia, Hypertension, Osteoarthritis (OA), Prostate Disorder Additional Past Medical History / Comment(s): 5 Herniated discs in neck causing headaches & numbness in arm and right lower back and pain and right leg pain. Hx 4 fx ribs, current Prostate Cancer- last radiation tx Mar 25-2016 had total of 44 tx. occ constipation, Last Myocardial Infarction Date:: UNKOWN History of Any Multi-Drug Resistant Organisms: None Reported Past Surgical History: Adenoidectomy, Heart Catheterization, Heart Catheterization With Stent, Joint Replacement, Orthopedic Surgery, Tonsillectomy Additional Past Surgical History / Comment(s): PROSTATE BX., LT. KNEE ARTHROSCOPY X 2, CERVICAL FUSIONS, COLONOSCOPY, ÁNGEL. CATARTACTS.Pain Procedures , rt radio frequency procedures. , total 2 heart stents, hemorrhoidectomy,heart cath August 2017-lt knee replacement Past Anesthesia/Blood Transfusion Reactions: No Reported Reaction Additional Past Anesthesia/Blood Transfusion Reaction / Comment(s): doesn't like enclosed tight spaces Date of Last Stent Placement:: 04/24/17 Past Psychological History: No Psychological Hx Reported Smoking Status: Former smoker Past Alcohol Use History: None Reported Past Drug Use History: None Reported - Past Family History Father Additional Family Medical History / Comment(s): Father at age 49 from coronary artery disease. Brother(s) Additional Family Medical History / Comment(s): Patient has one brother with history of smoking and no other major medical problems. Patient does not have any sisters. Daughter(s) Additional Family Medical History / Comment(s): He has one daughter alive in [place] with no major medical problems. Patient has one daughter with history of muscular dystrophy and of pneumonia. Son(s) Family Medical History: No Reported History Additional Family Medical History / Comment(s): Patient has one son with no major medical problems. Mother Family Medical History: Cancer Additional Family Medical History / Comment(s): Mother at age 81 from uterine cancer with metastatic disease. General Exam Limitations: no limitations Course Vital Signs 12/13/19 12/13/19 14:35 15:23 Temperature 97.9 F Pulse Rate 86 72 Respiratory 18 16 Rate Blood Pressure 168/48 126/79 O2 Sat by Pulse 98 96 Oximetry Medical Decision Making - Lab Data Result diagrams: 12/13/19 15:04 12/13/19 15:30 Lab Results 12/13/19 12/13/19 12/13/19 Range/Units 15:04 15:04 15:04 WBC 3.5 L (3.8-10.6) k/uL RBC 4.20 L (4.30-5.90) m/uL Hgb 13.3 (13.0-17.5) gm/dL Hct 38.5 L (39.0-53.0) % MCV 91.8 D (80.0-100.0) fL MCH 31.7 (25.0-35.0) pg MCHC 34.5 (31.0-37.0) g/dL RDW 12.7 (11.5-15.5) % Plt Count 172 (150-450) k/uL Neutrophils % 62 % Lymphocytes % 24 % Monocytes % 10 % Eosinophils % 2 % Basophils % 0 % Neutrophils # 2.1 (1.3-7.7) k/uL Lymphocytes # 0.8 L (1.0-4.8) k/uL Monocytes # 0.4 (0-1.0) k/uL Eosinophils # 0.1 (0-0.7) k/uL Basophils # 0.0 (0-0.2) k/uL PT 10.6 (9.0-12.0) sec INR 1.0 (<1.2) APTT 22.1 (22.0-30.0) sec Sodium (137-145) mmol/L Potassium (3.5-5.1) mmol/L Chloride (98-107) mmol/L Carbon Dioxide (22-30) mmol/L Anion Gap mmol/L BUN (9-20) mg/dL Creatinine (0.66-1.25) mg/dL Est GFR (CKD-EPI)AfAm (>60 ml/min/1.73 sqM) Est GFR (CKD-EPI)NonAf (>60 ml/min/1.73 sqM) Glucose (74-99) mg/dL Calcium (8.4-10.2) mg/dL Magnesium (1.6-2.3) mg/dL Total Bilirubin (0.2-1.3) mg/dL AST (17-59) U/L ALT (4-49) U/L Alkaline Phosphatase (38-126) U/L Troponin I <0.012 (0.000-0.034) ng/mL Total Protein (6.3-8.2) g/dL Albumin (3.5-5.0) g/dL 12/13/19 Range/Units 15:30 WBC (3.8-10.6) k/uL RBC (4.30-5.90) m/uL Hgb (13.0-17.5) gm/dL Hct (39.0-53.0) % MCV (80.0-100.0) fL MCH (25.0-35.0) pg MCHC (31.0-37.0) g/dL RDW (11.5-15.5) % Plt Count (150-450) k/uL Neutrophils % % Lymphocytes % % Monocytes % % Eosinophils % % Basophils % % Neutrophils # (1.3-7.7) k/uL Lymphocytes # (1.0-4.8) k/uL Monocytes # (0-1.0) k/uL Eosinophils # (0-0.7) k/uL Basophils # (0-0.2) k/uL PT (9.0-12.0) sec INR (<1.2) APTT (22.0-30.0) sec Sodium 136 L (137-145) mmol/L Potassium 4.6 (3.5-5.1) mmol/L Chloride 103 (98-107) mmol/L Carbon Dioxide 21 L (22-30) mmol/L Anion Gap 12 mmol/L BUN 36 H (9-20) mg/dL Creatinine 1.04 (0.66-1.25) mg/dL Est GFR (CKD-EPI)AfAm 81 (>60 ml/min/1.73 sqM) Est GFR (CKD-EPI)NonAf 70 (>60 ml/min/1.73 sqM) Glucose 152 H (74-99) mg/dL Calcium 9.1 (8.4-10.2) mg/dL Magnesium 1.6 (1.6-2.3) mg/dL Total Bilirubin 1.2 (0.2-1.3) mg/dL AST 46 (17-59) U/L ALT 58 H (4-49) U/L Alkaline Phosphatase 41 (38-126) U/L Troponin I (0.000-0.034) ng/mL Total Protein 7.0 (6.3-8.2) g/dL Albumin 4.6 (3.5-5.0) g/dL Disposition Clinical Impression: Chest pain Disposition: ADMITTED IP TO THIS HOSP Condition: Fair Referrals: German Astudillo MD [Primary Care Provider] - 1-2 days Decision Time: 16:47
[2019-12-13 15:35] LABS: Basophils % (A) 0 %; Eosinophils # (A) 0.1 k/uL (0-0.7); Eosinophils % (A) 2 %; HCT 38.5 % (39.0-53.0); HGB 13.3 gm/dL (13.0-17.5); Lymphocytes # (A) 0.8 k/uL (1.0-4.8); Lymphocytes % (A) 24 %; MCH 31.7 pg (25.0-35.0); MCHC 34.5 g/dL (31.0-37.0); Mean Platelet Volume 7.8; Monocytes # (A) 0.4 k/uL (0-1.0); Monocytes % (A) 10 %; Neutrophils # (A) 2.1 k/uL (1.3-7.7); Neutrophils % (A) 62 %; Platelet Count 172 k/uL (150-450); RDW 12.7 % (11.5-15.5); WBC 3.5 k/uL (3.8-10.6)
[2019-12-13 15:45] LABS: MCV 91.8 fL (80.0-100.0)
[2019-12-13 15:52] LABS: Albumin 4.6 g/dL (3.5-5.0); Calcium 9.1 mg/dL (8.4-10.2); Magnesium 1.6 mg/dL (1.6-2.3); Potassium 4.6 mmol/L (3.5-5.1); Total Bilirubin 1.2 mg/dL (0.2-1.3)
--- NOTE | 2019-12-13 15:53 | XR ---
EXAMINATION TYPE: XR chest 2V DATE OF EXAM: 12/13/2019 COMPARISON: 07/10/2019 HISTORY: Shortness of breath TECHNIQUE: Frontal and lateral views of the chest are obtained. FINDINGS: Scattered senescent parenchymal changes noted. No evidence for infiltrate. No evidence for atelectasis. Heart size is stable. Mediastinal structures are stable and grossly unremarkable. No evidence for hilar prominence. Degenerative changes dorsal spine. IMPRESSION: 1. No evidence for acute pulmonary disease.
[2019-12-13 15:54] LABS: Partial Thromboplastin Time 22.1 sec (22.0-30.0); Prothrombin Time 10.6 sec (9.0-12.0)
[2019-12-13] MEDS ORDERED: NITROGLYCERIN SL TABS 0.4 MG TAB SUBLINGUAL PRN (16:44)
[2019-12-13] MEDS ORDERED: HEPARIN SODIUM,PORCINE 5,000 UNIT/ML 1 ML VIAL IV PRN (17:17)
[2019-12-13] MEDS ORDERED: HEPARIN SODIUM,PORCINE 5,000 UNIT/ML 1 ML VIAL IV ONE (17:17)
[2019-12-13] MEDS ORDERED: HEPARIN SOD,PORK IN 0.45% NACL 25,000 UNIT in 0.45% NACL 1 250ML.BAG IV SCH (17:30)
--- NOTE | 2019-12-13 20:26 | P.HPIM ---
History of Present Illness H&P Date: 12/13/19 Chief Complaint: chest pain This is a 73-year-old male with past medical history of coronary artery disease with the previous history of RCA stenting and PCI involving the obtuse marginal, history of hypertension and hypertensive cardiovascular disease with LVH, type 2 diabetes, hyperlipidemia, history of prostate cancer status post radiation, patient was seen in my office last week with effort angina that has been going on for the past few weeks, patient had an appointment with his ror engineer at the beginning of next month, last week he had an 1 2 lead EKG that did not show any evidence of acute changes but his BP was elevated and his Diovan dose was increased to 320/12.5 mg orally daily with better control of his hypertension, today he went to pay few bills and he developed to have more effort angina so his daughter brought him to the ER for evaluation, again his EKG failed to show any acute changes and his initial Troponin was negative, but because of the presentation he was admitted for unstable angina. Review of Systems Constitutional: Reports chronic pain, Reports weakness, Denies anorexia, Denies chronic headaches, Denies fatigue, Denies lethargy Eyes: denies blurred vision, denies bulging eye, denies decreased vision Ears, nose, mouth and throat: Denies dysphagia, Denies neck lump, Denies sore throat Cardiovascular: Reports chest pain, Reports decreased exercise tolerance, Reports dyspnea on exertion, Denies lightheadedness, Denies rapid heart beat, Denies shortness of breath, Denies syncope Respiratory: Denies congestion, Denies cough, Denies cough with sputum, Denies home oxygen, Denies sleep apnea, Denies snoring, Denies wheezing Gastrointestinal: Denies abdominal pain, Denies bloating, Denies BRBPR, Denies heartburn, Denies loss of appetite, Denies melena, Denies nausea, Denies vomiting Genitourinary: Denies dysuria, Denies nocturia Musculoskeletal: Denies myalgias Musculoskeletal: absent: ankle pain, ankle stiffness, ankle swelling, elbow pain, elbow stiffness, elbow swelling, foot pain, foot stiffness, foot swelling, hand pain, hand stiffness, hand swelling, hip pain, hip stiffness, hip swelling, knee pain, knee stiffness, knee swelling, shoulder pain, shoulder stiffness, shoulder swelling, wrist pain, wrist stiffness, wrist swelling Integumentary: Denies pruritus, Denies rash Neurological: Denies numbness, Denies weakness Psychiatric: Denies anxiety, Denies depression Endocrine: Denies fatigue, Denies weight change Past Medical History Past Medical History: Atrial Fibrillation, Coronary Artery Disease (CAD), Can cer, Chest Pain / Angina, Diabetes Mellitus, GERD/Reflux, Hyperlipidemia, Hypertension, Osteoarthritis (OA), Prostate Disorder Additional Past Medical History / Comment(s): 5 Herniated discs in neck causing headaches & numbness in arm and right lower back and pain and right leg pain. Hx 4 fx ribs, current Prostate Cancer- last radiation tx Mar 25-2016 had total of 44 tx. occ constipation, Last Myocardial Infarction Date:: UNKOWN History of Any Multi-Drug Resistant Organisms: None Reported Past Surgical History: Adenoidectomy, Heart Catheterization, Heart Catheterization With Stent, Joint Replacement, Orthopedic Surgery, Tonsillectomy Additional Past Surgical History / Comment(s): PROSTATE BX., LT. KNEE ARTHROSCOPY X 2, CERVICAL FUSIONS, COLONOSCOPY, ÁNGEL. CATARTACTS.Pain Procedures , rt radio frequency procedures. , total 2 heart stents, hemorrhoidectomy,heart cath August 2017-lt knee replacement Past Anesthesia/Blood Transfusion Reactions: No Reported Reaction Additional Past Anesthesia/Blood Transfusion Reaction / Comment(s): doesn't like enclosed tight spaces Date of Last Stent Placement:: 04/24/17 Smoking Status: Former smoker - Past Family History Father Additional Family Medical History / Comment(s): Father at age 49 from coronary artery disease. Brother(s) Additional Family Medical History / Comment(s): Patient has one brother with history of smoking and no other major medical problems. Patient does not have any sisters. Daughter(s) Additional Family Medical History / Comment(s): He has one daughter alive in [place] with no major medical problems. Patient has one daughter with history of muscular dystrophy and of pneumonia. Son(s) Family Medical History: No Reported History Additional Family Medical History / Comment(s): Patient has one son with no major medical problems. Mother Family Medical History: Cancer Additional Family Medical History / Comment(s): Mother at age 81 from uterine cancer with metastatic disease. Medications and Allergies Home Medications Medication Instructions Recorded Confirmed Type Atorvastatin Calcium [Lipitor] 40 mg PO QAM 11/01/14 12/13/19 History atenoloL [Atenolol] 50 mg PO DAILY 05/25/18 12/13/19 History Acetaminophen Tab [Tylenol] 650 mg PO Q4HR PRN tab 07/10/19 12/13/19 Rx Aspirin EC [Ecotrin Low Dose] 81 mg PO DAILY 12/13/19 12/13/19 History HYDROcodone/APAP 10-325MG [[place] 1 tab PO QID PRN 12/13/19 12/13/19 History 10-325] Valsartan/Hydrochlorothiazide 1 tab PO HS 12/13/19 12/13/19 History [Valsartan-Hctz 320-12.5 mg Tab] sitaGLIPtin PHOS/metFORMIN HCL 1 tab PO DAILY 12/13/19 12/13/19 History [Janumet Xr 100-1,000 mg Tablet] Allergies Allergy/AdvReac Type Severity Reaction Status Date / Time No Known Allergies Allergy Verified 12/13/19 15:22 Physical Exam Vitals: Vital Signs Temp Pulse Pulse Resp BP BP Pulse Ox 12/13/19 18:16 98.1 F 79 18 167/89 99 12/13/19 17:30 75 16 135/85 99 12/13/19 17:00 65 17 125/86 99 12/13/19 16:30 79 18 129/88 97 12/13/19 16:00 75 19 126/79 96 12/13/19 15:30 69 17 126/79 95 12/13/19 15:23 72 16 126/79 96 12/13/19 15:00 78 18 128/82 12/13/19 14:48 72 15 12/13/19 14:35 97.9 F 86 18 168/48 98 Intake and Output 12/13/19 12/13/19 12/13/19 06:59 14:59 22:59 Intake Total 240 Balance 240 Intake: Oral 240 Other: Weight 108.862 kg 108.862 kg Physical examination: HEENT: head is atraumatic normocephalic pupils were equal round reative to light and accommodations extra ocular muscle movements were intact. Neck: supple, no JVP. Chest: decrease breath sounds at the bases with few ronchi no expiratory wheezes no chest wall tenderness or intercostal retraction. Heart: first heart sound is depressed, second heart sound is normal there is CONCEPCIÓN 2/6 located at the left sternal border. Abdomen: soft non tender non distended positive bowel sounds. Extremities: there is no edema no calf tenderness DP +1 bilaterally. Neurologic examination: patient is awake alert and oriented X3 CN II-XII are grossly intact muscle power 4/5 in upper and lower extremities bilaterally. Results CBC & Chem 7: 12/13/19 15:04 12/13/19 15:30 Labs: Abnormal Lab Results - Last 24 Hours (Table) 12/13/19 12/13/19 Range/Units 15:04 15:30 WBC 3.5 L (3.8-10.6) k/uL RBC 4.20 L (4.30-5.90) m/uL Hct 38.5 L (39.0-53.0) % Lymphocytes # 0.8 L (1.0-4.8) k/uL Sodium 136 L (137-145) mmol/L Carbon Dioxide 21 L (22-30) mmol/L BUN 36 H (9-20) mg/dL Glucose 152 H (74-99) mg/dL ALT 58 H (4-49) U/L Thrombosis Risk Factor Assmnt - DVT/VTE Prophylaxis DVT/VTE Prophylaxis: Pharmacologic Prophylaxis ordered, Mechanical Prophylaxis ordered - Choose All That Apply Each Risk Factor Represents 3 Points: Age 75 years or older Thrombosis Risk Factor Assessment Total Risk Factor Score: 3 Thrombosis Risk Factor Assessment Level: Moderate Risk Assessment and Plan Assessment: Assessment and plan: 1. Unstable angina with recurrent effort angina. we will start heparin drip, ASA 81 mg orally daily, Lipitor 40 mg orally daily, Atenolol 25 mg orally daily and we will check cardiac biomarkers, and cardiology consult for heart catherization. 2. Coronary artery disease post PCI of the RCA and OM1. we will continue with treatment as in paragraph #1. 3. Hypertension and hypertensive cardiovascular disease. we will continue with Atenolol 25 mg orally daily and Diovan 320/12.5 mg orally daily. 4. Hyperlipidemia. we will continue with Lipitor 40mg orally daily. 5. Diabetes Mellitus type 2. we will continue with Janumet XR mg po qhs, we will continue with SSI and BGM bid. 6. History of prostate cancer post radiation therapy. 7. History of Paroxysmal atrial fibrillation. stopped Xarelto abut a year ago. 8. 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 we will continue with current pain management. 9. DVT prophylaxis. we will continue with heparin drip. 10. GI prophylaxis. we will continue with PPI. 11. admitted as observation. 12. full code.
[2019-12-13] MEDS: hydroCHLOROthiazide 12.5 MG CAP PO SCH (20:39)
[2019-12-13] MEDS: VALSARTAN 160 MG TAB PO SCH (20:39)
[2019-12-13] MEDS ORDERED: HYDROCHLOROTHIAZIDE PO SCH (21:00)
[2019-12-13] MEDS ORDERED: [UNRECOGNIZED DRUG - OTHER] PO SCH (21:00)
[2019-12-13] MEDS ORDERED: VALSARTAN PO SCH (21:00)
[2019-12-13] MEDS: HYDROcodone/APAP 10-325MG 1 EACH TAB PO PRN (23:15)
[2019-12-14 06:19] LABS: Glucose,Whole Blood 129 mg/dL (75-99)
[2019-12-14 06:41] LABS: Cholesterol 144 mg/dL (<200); HDL Cholesterol 41 mg/dL (40-60); LDL Cholesterol,Calculated 34 mg/dL (0-99); Triglycerides 346 mg/dL (<150)
[2019-12-14] MEDS ORDERED: ATORVASTATIN 80 MG TAB PO STA (08:06)
[2019-12-14] MEDS ORDERED: ALPRAZolam 0.25 MG TAB PO PRN (08:06)
[2019-12-14] MEDS ORDERED: NITROGLYCERIN SL TABS 0.4 MG TAB SUBLINGUAL PRN ×2 (08:06→13:35)
[2019-12-14] MEDS ORDERED: ALPRAZolam 0.5 MG TAB PO PRN (08:06)
[2019-12-14] MEDS ORDERED: ASPIRIN 325 MG TAB PO STA (08:06)
[2019-12-14] MEDS ORDERED: SODIUM CHLORIDE 0.9% 1,000 ML in EMPTY BAG 1 BAG IV ONE (08:06)
[2019-12-14] MEDS: atenoloL 50 MG TAB PO SCH (08:25)
[2019-12-14] MEDS: ASPIRIN 81 MG PO SCH (08:31)
[2019-12-14] MEDS: ATORVASTATIN 40 MG TAB PO SCH (08:31)
[2019-12-14] MEDS: LINAGLIPTIN 5 MG TABLET PO SCH (08:32)
--- NOTE | 2019-12-14 08:41 | P.PN ---
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 12/13: feeling better today, no chest pain or shortness of breath, no coughing , he is scheduled for [facility] today for evaluation of his coronary artery disease. Objective - Vital Signs Vital signs: Vital Signs Temp 97.7 F 12/14/19 03:00 Pulse 70 12/14/19 03:00 Resp 16 12/14/19 03:00 BP 113/70 12/14/19 03:00 Pulse Ox 98 12/14/19 03:00 Intake & Output 12/13/19 12/13/19 12/14/19 06:59 18:59 06:59 Intake Total 240 69 Balance 240 69 Weight 108.862 kg Intake: Intake, IV Titration 69 Amount Heparin Sod,Pork in 0.45% 69 NaCl 25,000 unit In 0.45 % NaCl 1 250ml.bag @ 9. 186 UNITS/KG/HR 10 mls/hr IV .Q24H [facility] Rx#: [id number] Oral 240 Other: Voiding Method Toilet # Voids 1 - Exam Review of Systems Constitutional: Reports chronic pain, Reports weakness, Denies anorexia, Denies chronic headaches, Denies fatigue, Denies lethargy Eyes: denies blurred vision, denies bulging eye, denies decreased vision Ears, nose, mouth and throat: Denies dysphagia, Denies neck lump, Denies sore throat Cardiovascular: Reports chest pain, Reports decreased exercise tolerance, Reports dyspnea on exertion, Denies lightheadedness, Denies rapid heart beat, Denies shortness of breath, Denies syncope Respiratory: Denies congestion, Denies cough, Denies cough with sputum, Denies home oxygen, Denies sleep apnea, Denies snoring, Denies wheezing Gastrointestinal: Denies abdominal pain, Denies bloating, Denies BRBPR, Denies heartburn, Denies loss of appetite, Denies melena, Denies nausea, Denies vomiting Genitourinary: Denies dysuria, Denies nocturia Musculoskeletal: Denies myalgias Musculoskeletal: absent: ankle pain, ankle stiffness, ankle swelling, elbow pain, elbow stiffness, elbow swelling, foot pain, foot stiffness, foot swelling, hand pain, hand stiffness, hand swelling, hip pain, hip stiffness, hip swelling, knee pain, knee stiffness, knee swelling, shoulder pain, shoulder stiffness, shoulder swelling, wrist pain, wrist stiffness, wrist swelling Integumentary: Denies pruritus, Denies rash Neurological: Denies numbness, Denies weakness Psychiatric: Denies anxiety, Denies depression Endocrine: Denies fatigue, Denies weight change Physical examination: HEENT: head is atraumatic normocephalic pupils were equal round reative to light and accommodations extra ocular muscle movements were intact. Neck: supple, no JVP. Chest: decrease breath sounds at the bases with few ronchi no expiratory wheezes no chest wall tenderness or intercostal retraction. Heart: first heart sound is depressed, second heart sound is normal there is CONCEPCIÓN 2/6 located at the left sternal border. Abdomen: soft non tender non distended positive bowel sounds. Extremities: there is no edema no calf tenderness DP +1 bilaterally. Neurologic examination: patient is awake alert and oriented X3 CN II-XII are grossly intact muscle power 4/5 in upper and lower extremities bilaterally. - Labs CBC & Chem 7: 12/13/19 15:04 12/13/19 15:30 Labs: Abnormal Lab Results - Last 24 Hours (Table) 12/13/19 12/13/19 12/13/19 Range/Units 15:04 15:30 23:46 WBC 3.5 L (3.8-10.6) k/uL RBC 4.20 L (4.30-5.90) m/uL Hct 38.5 L (39.0-53.0) % Lymphocytes # 0.8 L (1.0-4.8) k/uL APTT 43.6 H (22.0-30.0) sec Sodium 136 L (137-145) mmol/L Carbon Dioxide 21 L (22-30) mmol/L BUN 36 H (9-20) mg/dL Glucose 152 H (74-99) mg/dL ALT 58 H (4-49) U/L Assessment and Plan Assessment: Assessment and plan: 1. Unstable angina with recurrent effort angina. we will start heparin drip, ASA 81 mg orally daily, Lipitor 40 mg orally daily, Atenolol 25 mg orally daily and we will check cardiac biomarkers, left heart catherization today. 2. Coronary artery disease post PCI of the RCA and OM1. we will continue with treatment as in paragraph #1. 3. Hypertension and hypertensive cardiovascular disease. we will continue with Atenolol 25 mg orally daily and Diovan 320/12.5 mg orally daily. 4. Hyperlipidemia. we will continue with Lipitor 40mg orally daily. 5. Diabetes Mellitus type 2. we will continue with Janumet XR mg po qhs, we will continue with SSI and BGM bid. 6. History of prostate cancer post radiation therapy. 7. History of Paroxysmal atrial fibrillation. stopped Xarelto abut a year ago. 8. 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 we will continue with current pain management. 9. DVT prophylaxis. we will continue with heparin drip. 10. GI prophylaxis. we will continue with PPI. 11. [facility] today
[2019-12-14] MEDS ORDERED: ASPIRIN 325 MG TAB PO SCH (09:00)
[2019-12-14] MEDS ORDERED: SITAGLIPTIN PHOS PO SCH (09:00)
[2019-12-14] MEDS ORDERED: metFORMIN 500 MG TAB PO SCH (09:00)
[2019-12-14] MEDS ORDERED: [UNRECOGNIZED DRUG - OTHER] PO SCH (09:00)
[2019-12-14] MEDS ORDERED: METFORMIN HCL PO SCH (09:00)
--- NOTE | 2019-12-14 11:03 | ECHOF ---
Referral Reason:CP MEASUREMENTS -------- HEIGHT: 180.3 cm WEIGHT: 108.9 kg BP: RVIDd: 2.6 cm (< 3.3) IVSd: 1.6 cm (0.6 - 1.1) LVIDd: 3.4 cm (3.9 - 5.3) LVPWd: 1.4 cm (0.6 - 1.1) IVSs: 1.8 cm LVIDs: 1.7 cm LVPWs: 2.2 cm LAESV Index (A-L): 22.47 ml/m Ao Diam: 3.2 cm (2.0 - 3.7) AV Cusp: 2.3 cm (1.5 - 2.6) LA Diam: 4.2 cm (2.7 - 3.8) MV EXCURSION: 14.056 mm (> 18.000) MV EF SLOPE: 59 mm/s (70 - 150) EPSS: 0.6 cm MV E Tobias: 0.54 m/s MV DecT: 256 ms MV A Tobias: 0.72 m/s MV E/A Ratio: 0.74 AR PHT: 521 ms RAP: 5.00 mmHg RVSP: 22.30 mmHg FINDINGS -------- Sinus rhythm. This was a technically difficult study with suboptimal views. The left ventricular size is normal. There is moderate concentric left ventricular hypertrophy. O verall left ventricular systolic function is normal with, an EF between 55 - 60 %. The diastolic fi lling pattern is normal for the age of the patient 6.41. The right ventricle is normal in size. Normal LA size by volume 22+/-6 ml/m2. The right atrial size is normal. 5.0mg of Lumason was utilized for enhancement of images The aortic valve is trileaflet, and appears structurally normal. No aortic stenosis or regurgitation. The mitral valve is normal. There is trace mitral regurgitation. The tricuspid valve appears structurally normal. Mild tricuspid regurgitation present. Right vent ricular systolic pressure is normal at < 35 mmHg. There is no pulmonic regurgitation present. The aortic root size is normal. IVC Not well visulized. There is no pericardial effusion. CONCLUSIONS -------- 1. There is moderate concentric left ventricular hypertrophy. 2. Overall left ventricular systolic function is normal with, an EF between 55 - 60 %. 3. The diastolic filling pattern is normal for the age of the patient 6.41 4. Normal LA size by volume 22+/-6 ml/m2. 5. 5.0mg of Lumason was utilized for enhancement of images 6. The aortic valve is trileaflet, and appears structurally normal. No aortic stenosis or regurgitati on. 7. There is trace mitral regurgitation. 8. Mild tricuspid regurgitation present. DRY END TESTER: Rachel Blount RDCS
[2019-12-14] MEDS ORDERED: IV FLUID CONTINUATION 1,000 ML IV ONE (12:00)
[2019-12-14] MEDS ORDERED: fentaNYL (PF) 50 MCG/ML 2 ML AMP ONE (12:03)
[2019-12-14] MEDS ORDERED: LIDOCAINE 1% INJ 10MG/ML (20 ML MDV) ONE (12:03)
[2019-12-14] MEDS ORDERED: fentaNYL (PF) 50 MCG/ML 2 ML AMP IV ONE (12:18)
[2019-12-14] MEDS ORDERED: LIDOCAINE 1% INJ 10MG/ML (20 ML MDV) SQ ONE (12:19)
[2019-12-14] MEDS ORDERED: CLOPIDOGREL 75 MG TAB ONE (12:30)
[2019-12-14] MEDS ORDERED: BIVALIRUDIN BOLUS 250 MG/50 ML IV ONE (12:33)
[2019-12-14] MEDS ORDERED: BIVALIRUDIN 250 MG in SODIUM CHLORIDE 0.9% 50 ML IV ONE ×2 (12:34→13:06)
[2019-12-14] MEDS ORDERED: CLOPIDOGREL 75 MG TAB PO ONE (12:35)
[2019-12-14] MEDS ORDERED: IOPAMIDOL-370 125ML BTL INJ ONE (12:43)
[2019-12-14] MEDS ORDERED: MAG HYDROX/AL HYDROX/SIMETH 30 ML CUP PO PRN (13:35)
[2019-12-14] MEDS ORDERED: ZOLPIDEM 5 MG TAB PO PRN (13:35)
[2019-12-14] MEDS ORDERED: ATROPINE SULFATE 0.1 MG/ML 10ML SYRINGE IV PRN (13:35)
[2019-12-14] MEDS ORDERED: RX INFO: IV CONTRAST WAS GIVEN 1 EACH MISC MISCELLANE PRN (13:35)
[2019-12-14] MEDS ORDERED: SODIUM CHLORIDE 0.9% 1,000 ML IV SCH (13:45)
--- NOTE | 2019-12-14 14:11 | CONS ---
CONSULTATION Mr. Berkowitz is a 74-year-old male with a known history of coronary artery disease who presented with symptoms of chest discomfort. He has underwent prior stenting of the RCA mostly recently in 2018 for the last 2 weeks. He has been having exertional chest discomfort. The discomfort was worse with physical activity. Relief with rest. He has not used any nitroglycerin. He denies any dizziness or palpitation. No peripheral edema. No PND. No orthopnea. Because of his progressive symptoms, he came into the emergency room and subsequently admitted. At the time of my evaluation, he is pain- free at this point. The patient has prior history of paroxysmal atrial fibrillation, history of hypertension, hyperlipidemia, and diabetes. He is a nonsmoker at this time. He is diabetic. MEDICATION: At home include Janumet, atenolol 50 mg daily, valsartan HCT 320-12.5 mg daily, Lipitor 40 mg daily, aspirin once a day. REVIEW OF SYSTEMS: RESPIRATORY SYSTEM: He has no recent wheezing or cough. He has occasional dyspnea on exertion. GI SYSTEM: No recent GI bleeding, no peptic ulcer disease. SYSTEM: No dysuria or hematuria. NERVOUS SYSTEM: No history of stroke or seizure. PHYSICAL EXAMINATION: A 74-year-old male, alert, oriented, in no apparent distress. Blood pressure 113/70 with a heart in the 70s. HEAD: Normocephalic. EYES: Sclerae nonicteric. NECK: Good upstroke, no bruit, no jugular venous distention. LUNGS: Clear to auscultation. HEART: Regular rate and rhythm, S1, S2. No S3 with systolic ejection murmur, no diastolic murmur, no rub. ABDOMEN: Soft, nontender, positive bowel sounds, no organomegaly. EXTREMITIES: Trace edema, intact pulses. LAB DATA: Revealed cholesterol 144, LDL of 34, BUN and creatinine of 36 and 1.04, potassium 4.6. EKG revealed a sinus mechanism, normal axis, T-wave inversion in lead 3, first-degree AV block, no acute ST-segment changes. Chest x-ray shows no acute infiltrate. IMPRESSION: 1. Chest discomfort consistent with angina pectoris, exertional pattern in a patient with known history of coronary artery disease. 2. History of hypertension. 3. Hyperlipidemia. 4. Diabetes mellitus. RECOMMENDATION: I recommend proceeding with coronary angiography to assess his status and guide his treatment. The findings as well as recommendations were discussed with the patient who is under full understanding and agreement. Thank you for this consult. Will follow with you. ALEXSANDRA / WILFREDO: [id number] /
[2019-12-14 14:36] VITALS: BMI 31.6
[2019-12-14] MEDS: ISOSORBIDE MONONITRATE ER 30 MG TAB.ER.24H PO SCH (16:36)
--- NOTE | 2019-12-14 16:53 | CC ---
CARDIAC CATHETERIZATION REPORT Mr. Berkowitz is a 74-year-old male with a known history of coronary artery disease, prior percutaneous revascularization, history of diabetes, hypertension and hyperlipidemia who presented with symptoms of exertional chest discomfort going on for the last 2 weeks. His cardiac enzymes were unremarkable. In view of that, recommendation was made regarding cardiac catheterization. The procedure, its risks and complications were discussed with the patient, who was in full understanding and agreement. PROCEDURE DESCRIPTION: Patient was brought to the clinical lab assistant in a fasting semi-sedated state after receiving fentanyl and Benadryl and achieving a moderate conscious sedated state. Using Xylocaine anesthesia and Seldinger technique, a 6-[place] sheath was introduced in the right femoral artery. Selective right and left coronary angiography was performed using 6-[place] 4 bend right and left Ellen catheters. Multiple views were taken of the arteries, including hemiaxial views. Following that, angioplasty and stenting was performed. Following that, a 6-[place] tight pigtail catheter was introduced into the left ventricle and pressures were calculated. Following that, catheter was removed. Sheath was sutured in place. The patient was returned to his room in stable condition. There was no immediate complication. FINDINGS: FLUOROSCOPY: There was severe calcification involving all the coronary arteries. LEFT MAIN: This is a large-sized vessel bifurcating into left circumflex and left anterior descending coronary artery. Left main coronary artery has a 20% plaque. LEFT ANTERIOR DESCENDING ARTERY: This is a large-sized vessel reaching toward the apex. Tapers down in the distal third, giving rise to a large diagonal branch. The left anterior descending artery is heavily calcified proximally and has mild intimal disease of 10% to 20% without any evidence of high-grade stenosis. LEFT CIRCUMFLEX: This is a large nondominant vessel, heavily calcified. The first obtuse marginal branch is totally occluded with minimal antegrade flow. The second obtuse marginal branch is patent, has intimal disease of 20% to 30% without any evidence of high-grade stenosis. RIGHT CORONARY ARTERY: This is a large dominant vessel bifurcating distally into a PDA. The right coronary artery is heavily calcified. The stented segment is patent. Distal to the stented segment there is a 99% stenosis. There is also a plaque distally of 60% to 70%. The rest of the vessel has diffuse disease without any evidence of high-grade stenosis. LEFT VENTRICULOGRAM: Left ventriculogram was not performed. HEMODYNAMICS: There was no gradient across the aortic valve. The left ventricular end- diastolic pressure was 12-14 mmHg. CONCLUSION: 1. Severely calcified coronary artery disease. 2. Critical stenosis in the mid right coronary artery. 3. Totally occluded first obtuse marginal branch. 4. Collaterals from the left system toward the right PDA. 5. Mild disease in the LAD. RECOMMENDATIONS: In view of findings and anatomy, I have recommended proceeding with angioplasty and stenting of the RCA. The procedure, its risks and complication were discussed with the patient, who is in full understanding and agreement. MMODL / IJN: [id number] /
--- NOTE | 2019-12-14 17:02 | PTCA ---
PERCUTANEOUSTRANS CORORONARY ANGIOGRAPHY Mr. Berkowitz is a 74-year-old male with a known history of coronary artery disease who presented with symptoms of unstable angina, was found to have critical stenosis involving the mid right coronary artery. Recommendation was made regarding angioplasty and stenting. The procedure, its risks and complication were discussed with the patient, who was in full understanding and agreement. PROCEDURE DESCRIPTION: A 6-Icelandic FR4 guiding catheter was introduced into the system. After cannulating the right coronary ostium, attempts to advance a 0.014 balanced medium weight J-wire across the lesion were unsuccessful. That wire was positioned in the acute marginal branch. Subsequently a Whisper J-wire was advanced with the help of a Fine Cross catheter. The lesion was crossed and the Super Cross catheter was advanced distally. Subsequently a 0.014 balanced medium weight J-wire was advanced and the Super Cross was removed. After that, a 2.0 x 12 mm NC Trek balloon was advanced and inflations up to 14 atmospheres were done. After removing the balloon, a 2.5 x 12 mm NC Emerge balloon was advanced and inflations up to 14 atmospheres were done. Following that the balloon was removed and a 3.0 x 15 mm NC Emerge balloon was advanced and inflation up to 14 atmospheres were done. Following that the balloon was removed, and attempts to advance a 3.25 x 12 mm Xience Raiza stent were unsuccessful. That stent was removed and the wire in the acute marginal was removed and a Guidezilla catheter was advanced. With the help of the Guidezilla catheter, the stent was advanced, deployed and post-dilated at 16 atmospheres. After the last inflation, after appropriate wait, the balloon and the guidewire were withdrawn back into the guiding catheter. Images were obtained and repeated. Those images revealed stable successful stenting. At that point, the guiding catheter, the balloon and the guidewire were removed. Left ventricular end-diastolic pressure was calculated. Following that, catheter was removed. Sheath was sutured in place. The patient was returned to his room in stable condition. There was no immediate complication. RESULTS: Successful stenting of the mid right coronary artery with reduction of stenosis from 99% to 0%. RECOMMENDATIONS: Patient be continued on aspirin, Plavix, beta ted, OBI inhibitor and statin. The importance of dual antiplatelet treatment was discussed with the patient, who is in full understanding and agreement. Duration of procedure was 64 minutes. MMODL / IJN: [id number] /
[2019-12-14 17:07] LABS: Glucose,Whole Blood 129 mg/dL (75-99)
[2019-12-14] MEDS: HYDROcodone/APAP 10-325MG 1 EACH TAB PO PRN (20:20)
[2019-12-14 21:01] LABS: Glucose,Whole Blood 228 mg/dL (75-99)
[2019-12-14] MEDS: hydroCHLOROthiazide 12.5 MG CAP PO SCH (21:49)
[2019-12-14] MEDS: VALSARTAN 160 MG TAB PO SCH (22:34)
[2019-12-15 06:13] LABS: Glucose,Whole Blood 142 mg/dL (75-99)
[2019-12-15 06:33] LABS: Calcium 8.1 mg/dL (8.4-10.2); Potassium 4.2 mmol/L (3.5-5.1)
[2019-12-15] MEDS: ISOSORBIDE MONONITRATE ER 30 MG TAB.ER.24H PO SCH (08:29)
[2019-12-15] MEDS: ASPIRIN 81 MG PO SCH (08:29)
[2019-12-15] MEDS: LINAGLIPTIN 5 MG TABLET PO SCH (08:29)
[2019-12-15] MEDS: atenoloL 50 MG TAB PO SCH (08:29)
[2019-12-15] MEDS: ATORVASTATIN 40 MG TAB PO SCH (08:29)
[2019-12-15] MEDS ORDERED: ASPIRIN 81 MG PO SCH (09:00)
--- NOTE | 2019-12-15 09:48 | PN ---
PROGRESS NOTE Mr. Berkowitz is a 74-year-old male with a known history of coronary artery disease, who presented with symptoms of chest discomfort and angina pectoris, underwent cardiac catheterization, was found to have critical stenosis involving the mid right coronary artery, underwent stenting of that vessel. He is doing well this morning. He has no chest pain. He has been ambulating without difficulty. Continues on aspirin once a day, Tenormin 50 mg daily, Lipitor 40 mg daily, Plavix 75 mg daily, hydrochlorothiazide 23.5 mg daily, isosorbide mononitrate 30 mg daily, valsartan 320 mg daily. PHYSICAL EXAMINATION: Blood pressure 104/50 with a heart rate in the 70s. LUNGS: Clear. HEART: Regular rate and rhythm, S1, S2. No S3. No rub with a systolic murmur. ABDOMEN: Soft, nontender. EXTREMITIES: No edema, right groin hematoma. LAB DATA: BUN and creatinine of 31 and 1.12, potassium 4.2. IMPRESSION: 1. Status post stenting of the mid right coronary artery. 2. Hypertension. 3. Hyperlipidemia. 4. Diabetes mellitus. RECOMMENDATION: Patient will be discharged home today and followed as an outpatient. MMODL / IJN: [id number] /
[2019-12-15 11:51] LABS: Glucose,Whole Blood 151 mg/dL (75-99)
[2019-12-15 12:44] VITALS: PULSE 77; RESP 16
[2019-12-15] MEDS ORDERED: CLOPIDOGREL 75 MG TAB PO SCH (13:36)
--- NOTE | 2019-12-15 16:31 | P.DS ---
Providers Date of admission: 12/13/19 16:44 Expected date of discharge: 12/15/19 Attending physician: German Astudillo Consults: 12/13/19 16:44 Consult Physician Urgent Consulting Provider: Ambrosio Valencia Consult Reason/Comments: exertional chest pain Do you want consulting provider notified?: Yes 12/14/19 13:35 Consult Physician Routine Consulting Provider: [facility] Consult Reason/Comments: Post Interventional patient Do you want consulting provider notified?: Already Contacted Primary care physician: German Astudillo Hospital Course: This is a 73-year-old male with past medical history of coronary artery disease with the previous history of RCA stenting and PCI involving the obtuse marginal, history of hypertension and hypertensive cardiovascular disease with LVH, type 2 diabetes, hyperlipidemia, history of prostate cancer status post radiation, patient was seen in my office last week with effort angina that has been going on for the past few weeks, patient had an appointment with 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 patient underwent left heart catherization that showed critical stenosis in the mid RCA with totally occluded OM1 of the LCX with collateral through the PDA, mild disease of the LAD, then PCI was performed and patient tolerated the procedure well, and he did ok, he will discharged home today. Discharge diagnoses: 1. Unstable angina post LHC and PCI of the mid RCA. 2. Totally occluded OM1. 3. Hypertension and hypertensive cardiovascular disease. 4. Hyperlipidemia. 5. Diabetes Mellitus type 2. 6. History of prostate cancer post radiation therapy. 7. History of Paroxysmal atrial fibrillation. 8. Spondylosis of the lumbar spine Patient Condition at Discharge: Fair Plan - Discharge Summary Discharge Rx Participant: No New Discharge Prescriptions: New Isosorbide Mononitrate ER [Imdur] 30 mg PO DAILY #90 tab.er.24h Nitroglycerin Sl Tabs [Nitrostat] 0.4 mg SUBLINGUAL Q5M PRN #25 tab PRN Reason: Chest Pain Clopidogrel [Plavix] 75 mg PO DAILY #90 tab Continue Atorvastatin Calcium [Lipitor] 40 mg PO QAM atenoloL [Atenolol] 50 mg PO DAILY Aspirin EC [Ecotrin Low Dose] 81 mg PO DAILY Valsartan/Hydrochlorothiazide [Valsartan-Hctz 320-12.5 mg Tab] 1 tab PO HS No Action Acetaminophen Tab [Tylenol] 650 mg PO Q4HR PRN tab PRN Reason: Fever And/Or Mild Pain sitaGLIPtin PHOS/metFORMIN HCL [Janumet Xr 100-1,000 mg Tablet] 1 tab PO DAILY HYDROcodone/APAP 10-325MG [[place] 10-325] 1 tab PO QID PRN PRN Reason: Pain Discharge Medication List Atorvastatin Calcium [Lipitor] 40 mg PO QAM 11/01/14 [History] atenoloL [Atenolol] 50 mg PO DAILY 05/25/18 [History] Acetaminophen Tab [Tylenol] 650 mg PO Q4HR PRN tab 07/10/19 [Rx] Aspirin EC [Ecotrin Low Dose] 81 mg PO DAILY 12/13/19 [History] HYDROcodone/APAP 10-325MG [[place] 10-325] 1 tab PO QID PRN 12/13/19 [History] Valsartan/Hydrochlorothiazide [Valsartan-Hctz 320-12.5 mg Tab] 1 tab PO HS 12/13/19 [History] sitaGLIPtin PHOS/metFORMIN HCL [Janumet Xr 100-1,000 mg Tablet] 1 tab PO DAILY 12/13/19 [History] Clopidogrel [Plavix] 75 mg PO DAILY #90 tab 12/15/19 [Rx] Isosorbide Mononitrate ER [Imdur] 30 mg PO DAILY #90 tab.er.24h 12/15/19 [Rx] Nitroglycerin Sl Tabs [Nitrostat] 0.4 mg SUBLINGUAL Q5M PRN #25 tab 12/15/19 [Rx] Follow up Appointment(s)/Referral(s): Ambrosio Valencia MD [STAFF PHYSICIAN] - 12/21/19 10:15 am (Cancel 12/19/19 appointment.) German Astudillo MD [Primary Care Provider] - 12/19/19 11:00 am Patient Instructions/Handouts: *[facility] - After Heart Catheterization - Corporate Ethics Officer Instructions Activity/Diet/Wound Care/Special Instructions: Resume Metformin 48 hours. Discharge Disposition: HOME SELF-CARE
[2019-12-15 16:58] VITALS: BP 121/78; TEMP 97.4
== END 2019-12-15 17:44 | disposition home or self-care (01) | DRG 247 ==
LOC: EC 14:34 → 3NCARDOBS 16:44 → 3SCARD 12-14 13:27 → OBSVTOIN 12-15 07:28
PROVIDERS: ADMIT Internal Medicine; ATTEND Internal Medicine
PROC: 027034Z Dilation of Coronary Artery, One Artery with Drug-eluting Intraluminal Device, Percutaneous Approach (ICD-10-PCS; principal; 2019-12-14 13:40)
PROC: B2111ZZ Fluoroscopy of Multiple Coronary Arteries using Low Osmolar Contrast (ICD-10-PCS; principal; 2019-12-14 13:40)
PROC: 4A023N7 Measurement of Cardiac Sampling and Pressure, Left Heart, Percutaneous Approach (ICD-10-PCS; principal; 2019-12-14 13:40)
DX: I25.110 Atherosclerotic heart disease of native coronary artery with unstable angina pectoris (principal); I25.82 Chronic total occlusion of coronary artery; I48.0 Paroxysmal atrial fibrillation; M47.816 Spondylosis without myelopathy or radiculopathy, lumbar region; E11.9 Type 2 diabetes mellitus without complications; E78.5 Hyperlipidemia, unspecified; I11.9 Hypertensive heart disease without heart failure; I25.2 Old myocardial infarction; K21.9 Gastro-esophageal reflux disease without esophagitis; M19.90 Unspecified osteoarthritis, unspecified site; Z98.1 Arthrodesis status; Z98.42 Cataract extraction status, left eye; Z98.41 Cataract extraction status, right eye; Z79.82 Long term (current) use of aspirin; Z79.84 Long term (current) use of oral hypoglycemic drugs; Z79.899 Other long term (current) drug therapy; Z82.49 Family history of ischemic heart disease and other diseases of the circulatory system; Z85.46 Personal history of malignant neoplasm of prostate; Z87.891 Personal history of nicotine dependence; Z92.3 Personal history of irradiation; Z95.5 Presence of coronary angioplasty implant and graft; Z96.652 Presence of left artificial knee joint; Z80.49 Family history of malignant neoplasm of other genital organs
CPT/HCPCS: 36415; 71046; 80048; 80053; 80061; 83735; 84484; 85025; 85347; 85610; 85730; 93005; 93306; 93458; 96365; 96376; 99285

== ENCOUNTER → 2020-05-30 | Outpatient (CLI) | payer MEDICARE, BC | END | disposition home or self-care (01) | LOC: LABWHC1 12:19 | PROVIDERS: ATTEND Radiology Radiation Oncology | DX: C61 Malignant neoplasm of prostate (principal); Z92.3 Personal history of irradiation; Z87.891 Personal history of nicotine dependence | CPT/HCPCS: 36415; 84153 ==

== ENCOUNTER 2020-07-27 20:57 | Inpatient (IN) | payer MEDICARE, BC ==
[2020-07-27 21:04] LABS: Glucose,Whole Blood 441 mg/dL (75-99)
[2020-07-27] MEDS ORDERED: HEPARIN SODIUM 1,000 UN/ML (10ML VL) IV ONE ×4 (21:04→23:45)
[2020-07-27] MEDS ORDERED: NITROGLYCERIN SL TABS 0.4 MG TAB SUBLINGUAL STA (21:06)
--- NOTE | 2020-07-27 21:09 | ED ---
General Adult HPI - General Chief complaint: Chest Pain Stated complaint: Possible STEMI Time Seen by Provider: 07/27/20 20:59 Source: patient, EMS Mode of arrival: EMS Limitations: no limitations - History of Present Illness Initial comments: Patient presents to the ED by ambulance for evaluation. Patient states that he developed left-sided chest pain with associated dyspnea and diaphoresis about 2 hours ago while cleaning out his oven. Patient states that he has a history of cardiac stents. Patient states that he is supposed be taking Plavix, but he has not been doing so. Patient denies radiation of his pain, fever or chills, headache, focal neuro deficit, neck/arm/jaw pain, back pain, pleuritic pain, cough or cold symptoms, palpitations, dizziness, abdominal pain, nausea or vomiting, dysuria or urinary symptoms, leg or calf swelling or pain, or any other symptoms or complaints. Per EMS, the patient was given aspirin and 2 doses of nitroglycerin with improvement of his chest pain. Code STEMI was called after EKG was obtained on patient's arrival to the ED (EMS EKG was very limited secondary to motion). - Related Data Home Medications Medication Instructions Recorded Confirmed Atorvastatin Calcium [Lipitor] 40 mg PO DAILY 11/01/14 07/27/20 atenoloL [Atenolol] 50 mg PO DAILY 05/25/18 07/27/20 HYDROcodone/APAP 10-325MG [[place] 1 tab PO BID PRN 12/13/19 07/27/20 10-325] Valsartan/Hydrochlorothiazide 1 tab PO DAILY 12/13/19 07/27/20 [Valsartan-Hctz 320-12.5 mg Tab] Previous Rx's Medication Instructions Recorded Isosorbide Mononitrate ER [Imdur] 30 mg PO DAILY #90 tab.er.24h 12/15/19 Allergies Allergy/AdvReac Type Severity Reaction Status Date / Time No Known Allergies Allergy Verified 07/27/20 21:17 Review of Systems ROS Statement: Those systems with pertinent positive or pertinent negative responses have been documented in the HPI. ROS Other: All systems not noted in ROS Statement are negative. Past Medical History Past Medical History: Atrial Fibrillation, Coronary Artery Disease (CAD), Cancer, Chest Pain / Angina, Diabetes Mellitus, GERD/Reflux, Hyperlipidemia, Hypertension, Osteoarthritis (OA), Prostate Disorder Additional Past Medical History / Comment(s): 5 Herniated discs in neck causing headaches & numbness in arm and right lower back and pain and right leg pain. Hx 4 fx ribs, current Prostate Cancer- last radiation tx Mar 25-2016 had total of 44 tx. occ constipation, Last Myocardial Infarction Date:: UNKOWN History of Any Multi-Drug Resistant Organisms: None Reported Past Surgical History: Adenoidectomy, Heart Catheterization, Heart Catheterization With Stent, Joint Replacement, Orthopedic Surgery, Tonsillectomy Additional Past Surgical History / Comment(s): PROSTATE BX., LT. KNEE ARTHROSCOPY X 2, CERVICAL FUSIONS, COLONOSCOPY, ÁNGEL. CATARTACTS.Pain Procedures , rt radio frequency procedures. , total 3 heart stents, hemorrhoidectomy,heart cath August 2017-lt knee replacement Past Anesthesia/Blood Transfusion Reactions: No Reported Reaction Additional Past Anesthesia/Blood Transfusion Reaction / Comment(s): doesn't like enclosed tight spaces Date of Last Stent Placement:: 04/24/17 Past Psychological History: No Psychological Hx Reported Smoking Status: Former smoker Past Alcohol Use History: None Reported Past Drug Use History: None Reported - Past Family History Father Additional Family Medical History / Comment(s): Father at age 49 from coronary artery disease. Brother(s) Additional Family Medical History / Comment(s): Patient has one brother with history of smoking and no other major medical problems. Patient does not have any sisters. Daughter(s) Additional Family Medical History / Comment(s): He has one daughter alive in [place] with no major medical problems. Patient has one daughter with history of muscular dystrophy and of pneumonia. Son(s) Family Medical History: No Reported History Additional Family Medical History / Comment(s): Patient has one son with no major medical problems. Mother Family Medical History: Cancer Additional Family Medical History / Comment(s): Mother at age 81 from uterine cancer with metastatic disease. General Exam Limitations: no limitations General appearance: alert Head exam: Present: atraumatic, normocephalic Eye exam: Present: normal appearance, EOMI ENT exam: Present: mucous membranes moist Neck exam: Present: other (Trachea is in midline) Respiratory exam: Present: normal lung sounds bilaterally. Absent: respiratory distress, wheezes, rales, rhonchi, stridor, chest wall tenderness Cardiovascular Exam: Present: regular rate, normal rhythm, normal heart sounds, other (Normal radial pulses bilaterally) GI/Abdominal exam: Present: soft. Absent: tenderness, guarding Extremities exam: Present: other (Negative Homans sign bilaterally). Absent: tenderness, pedal edema, calf tenderness Neurological exam: Present: alert, oriented X3. Absent: motor sensory deficit Psychiatric exam: Present: normal affect, normal mood Skin exam: Present: warm, dry, intact, normal color Course Vital Signs 07/27/20 07/27/20 07/27/20 21:00 21:05 21:10 Temperature 98.0 F 98.0 F Pulse Rate 84 85 84 Respiratory 18 16 16 Rate Blood Pressure 160/89 164/100 129/79 O2 Sat by Pulse 94 L 97 97 Oximetry 07/27/20 21:15 Temperature 98.0 F Pulse Rate 80 Respiratory 16 Rate Blood Pressure 145/93 O2 Sat by Pulse 97 Oximetry - Reevaluation(s) Reevaluation #1: 07/27/20 21:06 Case, H&P, EKG findings and EMS management were discussed with Dr. Vora (craps dealer). He agrees with heparin IV bolus administration. He states that he will be in to the hospital shortly to take the patient to the laborer syrup machine. He has no further recommendations at this time. 07/27/20 21:12 Case, H&P, test results, EMS management and my discussion with Dr. Vora as above were discussed with Dr. Astudillo. He accepts hospital admission. He has no further recommendations at this time. EKG Findings - EKG Comments: EKG Findings:: Normal sinus rhythm, single premature supraventricular contraction, ventricular rate of 86 bpm, normal [place] and QRS intervals, normal QT interval, normal axis, inferior lead ST elevations with lateral limb lead recipr ocal changes consistent with STEMI Medical Decision Making - Medical Decision Making ED EKG shows what appears to be an inferior wall STEMI. Code STEMI was activated in the ED. Dr. Vora (craps dealer) was contacted by telephone and will be taking the patient to the laborer syrup machine. Patient was given IV heparin bolus in the ED, and he was given aspirin by EMS. Dr. Astudillo has accepted hospital admission. Patient has been hemodynamically stable while in the ED. - Lab Data Result diagrams: 07/27/20 21:00 07/27/20 21:00 Lab Results 07/27/20 07/27/20 07/27/20 Range/Units 21:00 21:00 21:02 WBC 2.6 L (3.8-10.6) k/uL RBC 4.17 L (4.30-5.90) m/uL Hgb 13.9 (13.0-17.5) gm/dL Hct 38.6 L (39.0-53.0) % MCV 92.4 (80.0-100.0) fL MCH 33.3 (25.0-35.0) pg MCHC 36.1 (31.0-37.0) g/dL RDW 12.1 (11.5-15.5) % Plt Count 133 L (150-450) k/uL MPV 7.8 Neutrophils % 46 % Lymphocytes % 38 % Monocytes % 12 % Eosinophils % 1 % Basophils % 0 % Neutrophils # 1.2 L (1.3-7.7) k/uL Lymphocytes # 1.0 (1.0-4.8) k/uL Monocytes # 0.3 (0-1.0) k/uL Eosinophils # 0.0 (0-0.7) k/uL Basophils # 0.0 (0-0.2) k/uL Sodium 133 L (137-145) mmol/L Potassium 4.3 (3.5-5.1) mmol/L Chloride 98 (98-107) mmol/L Carbon Dioxide 25 (22-30) mmol/L Anion Gap 10 mmol/L BUN 33 H (9-20) mg/dL Creatinine 1.14 (0.66-1.25) mg/dL Est GFR (CKD-EPI)AfAm 72 (>60 ml/min/1.73 sqM) Est GFR (CKD-EPI)NonAf 63 (>60 ml/min/1.73 sqM) Glucose 452 H (74-99) mg/dL POC Glucose (mg/dL) 441 H (75-99) mg/dL POC Glu [employer] ID Elder Oseguera Calcium 8.7 (8.4-10.2) mg/dL Magnesium 1.5 L (1.6-2.3) mg/dL Total Bilirubin 0.9 (0.2-1.3) mg/dL AST 51 (17-59) U/L ALT 50 H (4-49) U/L Alkaline Phosphatase 48 (38-126) U/L Total Protein 6.1 L (6.3-8.2) g/dL Albumin 4.0 (3.5-5.0) g/dL Critical Care Time Critical Care Time: Yes Total Critical Care Time: 30 (ST elevation myocardial infarction) Disposition Clinical Impression: ST elevation (STEMI) myocardial infarction Disposition: ADMITTED IP TO THIS HOSP Condition: Stable Is patient prescribed a controlled substance at d/c from ED?: No Referrals: German Astudillo MD [Primary Care Provider] - 1-2 days Time of Disposition: 21:12
[2020-07-27 21:15] LABS: Basophils % (A) 0 %; Eosinophils % (A) 1 %; HCT 38.6 % (39.0-53.0); HGB 13.9 gm/dL (13.0-17.5); Lymphocytes % (A) 38 %; MCH 33.3 pg (25.0-35.0); MCHC 36.1 g/dL (31.0-37.0); MCV 92.4 fL (80.0-100.0); Mean Platelet Volume 7.8; Monocytes # (A) 0.3 k/uL (0-1.0); Monocytes % (A) 12 %; Neutrophils # (A) 1.2 k/uL (1.3-7.7); Neutrophils % (A) 46 %; Platelet Count 133 k/uL (150-450); RBC 4.17 m/uL (4.30-5.90); RDW 12.1 % (11.5-15.5); WBC 2.6 k/uL (3.8-10.6)
[2020-07-27 21:26] LABS: Calcium 8.7 mg/dL (8.4-10.2); Magnesium 1.5 mg/dL (1.6-2.3); Potassium 4.3 mmol/L (3.5-5.1); Total Bilirubin 0.9 mg/dL (0.2-1.3); Total Protein 6.1 g/dL (6.3-8.2)
[2020-07-27 21:29] LABS: Prothrombin Time 10.4 sec (9.0-12.0)
[2020-07-27 21:30] LABS: Partial Thromboplastin Time 20.2 sec (22.0-30.0)
[2020-07-27] MEDS ORDERED: MIDAZOLAM 2 MG/2 ML VIAL IVP ONE ×2 (21:51→22:16)
[2020-07-27] MEDS ORDERED: LIDOCAINE 1% INJ 10MG/ML (20 ML MDV) SQ ONE (21:52)
[2020-07-27] MEDS ORDERED: METOPROLOL TARTRATE 5 MG/5 ML VIAL IVP ONE ×2 (21:55→21:57)
[2020-07-27] MEDS ORDERED: HEPARIN SODIUM 1,000 UN/ML (10ML VL) ONE (22:00)
[2020-07-27] MEDS ORDERED: IV FLUID CONTINUATION 1,000 ML IV ONE (22:02)
[2020-07-27] MEDS ORDERED: HYDROmorphone 1 MG/ML 1 ML SYRINGE ONE ×2 (22:10→22:54)
[2020-07-27] MEDS ORDERED: HYDROmorphone 1 MG/ML 1 ML SYRINGE IVP ONE ×2 (22:13→22:56)
--- NOTE | 2020-07-27 22:20 | XR ---
EXAMINATION TYPE: XR chest 1V portable DATE OF EXAM: 07/27/2020 COMPARISON: 12/13/2019. HISTORY: Chest pain. TECHNIQUE: Single frontal view of the chest is obtained. FINDINGS: There is mild left greater than right bibasilar opacities pleural effusion, or pneumothora x seen. The cardiac silhouette size is within normal limits. The osseous structures are intact. IMPRESSION: Left greater than right bibasilar opacities may represent atelectasis or infiltrates.
[2020-07-27] MEDS ORDERED: fentaNYL (PF) 50 MCG/ML 2 ML AMP ONE (22:25)
[2020-07-27] MEDS ORDERED: fentaNYL (PF) 50 MCG/ML 2 ML AMP IVP ONE ×3 (22:26→23:45)
[2020-07-27] MEDS ORDERED: IOPAMIDOL-370 125ML BTL INJ ONE (23:57)
[2020-07-28] MEDS ORDERED: niCARdipine 25 MG/10 ML VIAL ONE (00:01)
[2020-07-28] MEDS ORDERED: IOPAMIDOL-370 100ML BTL INJ ONE (00:04)
[2020-07-28] MEDS ORDERED: CLOPIDOGREL 75 MG TAB ONE (00:11)
[2020-07-28] MEDS ORDERED: HYDROcodone/APAP 10-325MG 1 EACH TAB PO PRN (00:15)
[2020-07-28] MEDS ORDERED: NITROGLYCERIN SL TABS 0.4 MG TAB SUBLINGUAL PRN (00:17)
[2020-07-28] MEDS ORDERED: RX INFO: IV CONTRAST WAS GIVEN 1 EACH MISC MISCELLANE PRN (00:17)
[2020-07-28] MEDS ORDERED: MAG HYDROX/AL HYDROX/SIMETH 30 ML CUP PO PRN (00:17)
[2020-07-28] MEDS ORDERED: ATROPINE SULFATE 0.1 MG/ML 10ML SYRINGE IV PRN (00:17)
[2020-07-28] MEDS ORDERED: ZOLPIDEM 5 MG TAB PO PRN (00:17)
--- NOTE | 2020-07-28 00:24 | P.CRDCN ---
History of Present Illness Consult date: 07/28/20 Chief complaint: Chest pain History of present illness: This is a 75-year-old gentleman with a past medical history significant for coronary artery disease and prior stenting of the RCA as well as hypertension and dyslipidemia presented to the emergency department complaining of chest discomfort. The patient stated that he was in his usual state of health until about 2 hours ago when he was at home and developed chest a pressure associated with diaphoresis as well as symptoms of nausea. No loss of consciousness and no syncope. The chest discomfort did radiate to his left elbow. No radiation to the back or shoulders or neck. The EKG in the emergency department revealed acute inferior ST patient myocardial infarction in the light of that an emergent heart catheterization was advised. The patient underwent heart catheterization from right groin approach and that revealed extremely calcified left and right coronary system with occluded RCA in the distal portion. The RCA was extremely calcified. I had very hard time crossing the right coronary artery with a wire and after crossing it I had hard time advancing any balloon including 1.0 mm balloon. Because of that atherectomy was performed on the right coronary artery but the atherectomy device did not cross the lesion. By the end and because the chest discomfort has resolved as well as in view of the significant amount of IV contrast to use as well as radiation exposure we decided to stop. The patient was chest pain-free by the end of the procedure. He will be admitted to the intensive care unit. He will be on dual antiplatelet therapy. I would increase the dose of Lipitor to 80 mg by mouth daily and also increase the dose of isosorbide mononitrate to 60 mg by mouth daily. Past Medical History Past Medical History: Atrial Fibrillation, Coronary Artery Disease (CAD), Cancer, Chest Pain / Angina, Diabetes Mellitus, GERD/Reflux, Hyperlipidemia, Hypertension, Osteoarthritis (OA), Prostate Disorder Additional Past Medical History / Comment(s): 5 Herniated discs in neck causing headaches & numbness in arm and right lower back and pain and right leg pain. Hx 4 fx ribs, current Prostate Cancer- last radiation tx Mar 25 had total of 44 tx. occ constipation, Last Myocardial Infarction Date:: UNKOWN History of Any Multi-Drug Resistant Organisms: None Reported Past Surgical History: Adenoidectomy, Heart Catheterization, Heart Catheterization With Stent, Joint Replacement, Orthopedic Surgery, Tonsillectomy Additional Past Surgical History / Comment(s): PROSTATE BX., LT. KNEE ARTHROSCOP Y X 2, CERVICAL FUSIONS, COLONOSCOPY, ÁNGEL. CATARTACTS.Pain Procedures , rt radio frequency procedures. , total 3 heart stents, hemorrhoidectomy,heart cath August 2017-lt knee replacement Past Anesthesia/Blood Transfusion Reactions: No Reported Reaction Additional Past Anesthesia/Blood Transfusion Reaction / Comment(s): doesn't like enclosed tight spaces Date of Last Stent Placement:: 04/24/17 Past Psychological History: No Psychological Hx Reported Smoking Status: Former smoker Past Alcohol Use History: None Reported Past Drug Use History: None Reported - Past Family History Father Additional Family Medical History / Comment(s): Father at age 49 from coronary artery disease. Brother(s) Additional Family Medical History / Comment(s): Patient has one brother with history of smoking and no other major medical problems. Patient does not have any sisters. Daughter(s) Additional Family Medical History / Comment(s): He has one daughter alive in [place] with no major medical problems. Patient has one daughter with history of muscular dystrophy and of pneumonia. Son(s) Family Medical History: No Reported History Additional Family Medical History / Comment(s): Patient has one son with no major medical problems. Mother Family Medical History: Cancer Additional Family Medical History / Comment(s): Mother at age 81 from uterine cancer with metastatic disease. Medications and Allergies Home Medications Medication Instructions Recorded Confirmed Type Atorvastatin Calcium [Lipitor] 40 mg PO DAILY 11/01/14 07/27/20 History atenoloL [Atenolol] 50 mg PO DAILY 05/25/18 07/27/20 History HYDROcodone/APAP 10-325MG [[place] 1 tab PO BID PRN 12/13/19 07/27/20 History 10-325] Valsartan/Hydrochlorothiazide 1 tab PO DAILY 12/13/19 07/27/20 History [Valsartan-Hctz 320-12.5 mg Tab] Isosorbide Mononitrate ER [Imdur] 30 mg PO DAILY #90 tab.er.24h 12/15/19 07/27/20 Rx Allergies Allergy/AdvReac Type Severity Reaction Status Date / Time No Known Allergies Allergy Verified 07/27/20 21:17 Physical Exam Vitals: Vital Signs Temp Pulse Resp BP Pulse Ox 07/27/20 21:25 98.0 F 84 16 145/87 97 07/27/20 21:20 98.0 F 82 16 140/91 97 07/27/20 21:15 98.0 F 80 16 145/93 97 07/27/20 21:10 98.0 F 84 16 129/79 97 07/27/20 21:05 98.0 F 85 16 164/100 97 07/27/20 21:00 84 18 160/89 94 L Intake and Output 07/27/20 07/27/20 07/28/20 14:59 22:59 06:59 Other: Weight 108.862 kg - Constitutional General appearance: no acute distress - Respiratory Respiratory: bilateral: CTA - Cardiovascular Rhythm: regular Heart sounds: normal: S1, S2 Results 07/27/20 21:00 07/27/20 21:00 Cardiac Enzymes 07/27/20 07/27/20 Range/Units 21:00 21:00 AST 51 (17-59) U/L Troponin I <0.012 (0.000-0.034) ng/mL Coagulation 07/27/20 Range/Units 21:00 PT 10.4 (9.0-12.0) sec APTT 20.2 L (22.0-30.0) sec CBC 07/27/20 Range/Units 21:00 WBC 2.6 L (3.8-10.6) k/uL RBC 4.17 L (4.30-5.90) m/uL Hgb 13.9 (13.0-17.5) gm/dL Hct 38.6 L (39.0-53.0) % Plt Count 133 L (150-450) k/uL Comprehensive Metabolic Panel 07/27/20 Range/Units 21:00 Sodium 133 L (137-145) mmol/L Potassium 4.3 (3.5-5.1) mmol/L Chloride 98 (98-107) mmol/L Carbon Dioxide 25 (22-30) mmol/L BUN 33 H (9-20) mg/dL Creatinine 1.14 (0.66-1.25) mg/dL Glucose 452 H (74-99) mg/dL Calcium 8.7 (8.4-10.2) mg/dL AST 51 (17-59) U/L ALT 50 H (4-49) U/L Alkaline Phosphatase 48 (38-126) U/L Total Protein 6.1 L (6.3-8.2) g/dL Albumin 4.0 (3.5-5.0) g/dL Intake and Output 07/27/20 07/27/20 07/28/20 14:59 22:59 06:59 Other: Weight 108.862 kg Patient Weight 07/28/20 06:59 Weight 108.862 kg 07/27/20 21:00 07/27/20 21:00 Assessment and Plan Assessment: Assessment #[address] patient myocardial infarction #2 coronary artery disease and prior stenting of the mid RCA #3 hypertension #4 dyslipidemia Plan #1 dual antiplatelet therapy #2 aggressive cholesterol control #3 risk factors modifications #4 an echocardiogram was Doppler #5 follow-up with the patient
[2020-07-28] MEDS ORDERED: SODIUM CHLORIDE 0.9% 1,000 ML IV SCH (00:30)
[2020-07-28] MEDS ORDERED: ONDANSETRON 4 MG/2 ML VIAL ONE (00:39)
[2020-07-28] MEDS ORDERED: ONDANSETRON 4 MG/2 ML VIAL IVP ONE (00:41)
[2020-07-28] MEDS ORDERED: CLOPIDOGREL 75 MG TAB PO ONE (00:41)
[2020-07-28 00:54] LABS: Glucose,Whole Blood 389 mg/dL (75-99)
[2020-07-28 05:41] LABS: Cholesterol 147 mg/dL (<200); HDL Cholesterol 36 mg/dL (40-60); Triglycerides 432 mg/dL (<150)
--- NOTE | 2020-07-28 07:25 | CC ---
CARDIAC CATHETERIZATION REPORT PERFORMING PHYSICIAN: Krishna Vora MD. PROCEDURES PERFORMED: 1. Selective left and right coronary angiogram. 2. Atherectomy of the right coronary artery using the orbital atherectomy device. 3. Attempted balloon angioplasty of the right coronary artery. 4. Successful placement of transvenous temporary pacemaker in the right ventricle. 5. Selective right common femoral artery angiogram. INDICATION: This is a 75-year-old gentleman with coronary artery disease and prior stenting of the RCA which was performed in 2019, as well as hypertension and dyslipidemia. He presented to the emergency department with acute inferior ST-elevation myocardial infarction. In light of that and in the light of ongoing chest discomfort, an emergent heart catheterization was advised. APPROACH: Right common femoral artery. COMPLICATION: None. LEVEL OF SEDATION: Moderate with sedation length of 136 minutes. Door to balloon was 102 minutes. PROCEDURE DESCRIPTION: After obtaining informed consent, the patient was brought to the cardiac medical laboratory technician. The right common femoral artery was cannulated using micropuncture technique, the micropuncture wire passed easily then I placed an 11 cm 6-Romansh sheath at the right common femoral artery. I did selective left and right coronary angiogram. Selective left coronary angiogram was performed using JL4 catheter and selective right coronary angiogram was performed using JR4 guide. After that, an angioplasty of the right coronary artery was performed. Please see a separate paragraph for that. SELECTIVE CORONARY ANGIOGRAM: 1. The left main coronary artery is a large caliber vessel and it is a dominant vessel. It is calcified with mild disease only. It bifurcates into LCX and LAD. 2. The LCX is a large caliber vessel. It is a codominant vessel. The proximal left circumflex appeared to have mild disease only and gives rise into subtotally occluded first obtuse marginal branch which is known to be subtotally occluded from before. The mid left circumflex has mild disease only as well and gives rise into a second obtuse marginal branch which is a large caliber vessel, appeared to be angiographically normal and in the midportion bifurcates into 2 subbranches. The circumflex distally appeared to be angiographically normal and bifurcates into PDA and PLV branches. 3. The LAD: The proximal LAD appeared to be extremely calcified with mild disease only. The mid and distal LAD appeared to be angiographically normal. The LAD does not reach the apex. The LAD gives rise into the first and second diagonal branches, both appeared to have mild diffuse disease. 4. The RCA is a large caliber vessel. It is extremely calcified. The mid RCA appeared to be stented with intermediate to severe in-stent restenosis. The distal RCA appeared to be occluded and seems to be extremely calcified. PCI OF THE RCA: Anticoagulation was achieved with heparin because the patient was given heparin in the emergency department so we just continue anticoagulation with heparin. Please note that continuous ACT monitoring was performed throughout the procedure. The RCA was engaged using JR4 guide. Attempting ballooning in the RCA using a Whisper wire was unsuccessful. I attempted wiring the RCA using a Whisper wire also with the backup support of 2.0 mm balloon and that was unsuccessful. After that I attempted crossing the lesion in the distal right coronary artery using the Fielder XT wire and also that was unsuccessful. By the end I was able to cross the lesion in the distal right coronary artery using Fielder XT wire with the backup support of 45 angled Super Cross catheter. The Fielder XT wire was advanced all the way to the distal right coronary artery. At that point, I attempted ballooning the RCA using a 1 mm x 8 mm balloon and I was unable to cross the lesion with this balloon. I attempted using the GuideLiner to give me support and cross the lesion in the distal right coronary artery and also that was unsuccessful. At that point, I decided to wire the right coronary artery using a noel wire so attempting advancing a Whisper wire and the Choice PT wire as a noel to the Fielder XT wire was also unsuccessful. Finally with the Fielder ST wire left in place, I was able to get a noel wire with another Fielder XT wire using again the 45 angle Super Cross catheter. Please note that initially I tried to use the Corsair catheter, but that did not help. With 2 wires in the RCA distal to the lesion in the distal right coronary artery, I attempted again advancing the 1 mm balloon, but that was unsuccessful and the nose of the balloon was unable to cross the lesion in the right coronary artery over the initial Fielder XT wire and also the noel XT wire. I did balloon angioplasty just proximal to the lesion in an attempt to get the balloon crossing the lesion. After I realized that there was no way to fix the right coronary artery unless we do atherectomy, I attempted exchanging my Fielder XT wire into ViperWire using Corsair catheter and using turn by catheter and also using Super Cross catheter and all of that was unsuccessful because none of the above catheters were able to cross the lesion in the RCA over the filter XT wire and the noel wire At that point, I used the Super Cross catheter, which was a straight one this time and I advanced the catheter all the way to the lesion where the catheter was burred inside the lesion of the right coronary artery and then I pulled the Fielder XT wire and I was luckily able to advance the ViperWire all the way to the distal right coronary artery. At that point, I stop and I placed transcutaneous temporary pacemaker from right groin approach where I accessed the right common femoral vein using micropuncture technique and then I placed a 6-Romansh sheath at the right common femoral vein. At that point, I was able under fluoroscopic guidance to advanced a temporary pacemaker to the right ventricle where the pacer was placed at the apex of the right ventricle and was put under 5 of amp and 60 beats per minute as a backup. After that I was able to get the orbital atherectomy device over the ViperWire all the way to the mid right coronary artery. Unfortunately, I was unable to cross the lesion in the mid right coronary artery with the atherectomy device in spite of using a [place] assist. Finally I had to do atherectomy of the right coronary artery in the midportion. Then I was able to cross that lesion to the distal right coronary artery. I did 4 runs of low speed of the atherectomy device and I had a hard time crossing the lesion in the distal right coronary artery over the ViperWire. I did 2 runs of medium speed and I was unable to cross the lesion. Finally, the device and the wire bounced back from the right coronary artery. At that point and in view of the radiation as well as in view of the contrast use, we decided to stop. I took a picture of the RCA and that showed JEANIE-3 flow in the right coronary artery. The patient was chest pain free. No EKG changes noted. CONCLUSION: 1. Acute inferior ST-elevation myocardial infarction in this 75-year-old gentleman with known coronary artery disease. 2. Extremely calcified left and right coronary system. 3. Mild disease involving the left main coronary artery. 4. Mild disease involving the left anterior descending and diagonal system. 5. Subtotally occluded first obtuse marginal branch of the left circumflex which is a known finding from before. 6. Occluded right coronary artery in the distal portion. 7. Attempted balloon angioplasty of the right coronary artery was performed and also attempted atherectomy was performed. POSTPROCEDURE MANAGEMENT: 1. Dual anti-platelet therapy. 2. Aggressive cholesterol control. 3. Risk factor modifications. 4. Consider either medical treatment or atherectomy of the right coronary artery with extra backup support guide to be performed either locally here or for the patient to be sent out. MMODL / IJN: [id number] /
[2020-07-28] MEDS: INSULIN ASPART (NovoLOG) 100 UNIT/ML VIAL SQ SCH ×4 (08:45→20:44)
[2020-07-28] MEDS ORDERED: atenoloL 50 MG TAB PO SCH (09:00)
[2020-07-28] MEDS ORDERED: LIDOCAINE 1% INJ 10MG/ML (20 ML MDV) ONE (09:23)
[2020-07-28] MEDS ORDERED: VERAPAMIL 2.5 MG/ML 2 ML AMP ONE (09:23)
[2020-07-28] MEDS: ATORVASTATIN 80 MG TAB PO SCH (09:44)
[2020-07-28] MEDS: hydroCHLOROthiazide 12.5 MG CAP PO SCH (09:45)
[2020-07-28] MEDS: ISOSORBIDE MONONITRATE ER 60 MG TAB.ER.24H PO SCH (09:45)
[2020-07-28 10:21] LABS: Glucose,Whole Blood 314 mg/dL (75-99)
[2020-07-28] MEDS ORDERED: INSULIN ASPART (NovoLOG) 100 UNIT/ML VIAL SQ ONE (10:21)
--- NOTE | 2020-07-28 10:31 | P.PN ---
Subjective Progress Note Date: 07/28/20 Principal diagnosis: Acute coronary syndrome This is a 75-year-old gentleman with coronary artery disease and prior stenting of the RCA who presented to the hospital yesterday with a chest discomfort and was diagnosed with acute inferior ST elevation myocardial infarction with e mergent heart catheterization was performed and revealed acute total occlusion of the distal right coronary artery which was extremely calcified/fibrotic. Attempted balloon angioplasty was performed even with adjunctive use with atherectomy. By the end we achieved a JEANIE-3 flow but the lesion continues to be very tight. The patient was seen this morning. He is asymptomatic. No chest pain or chest discomfort. He is in with an increased stable but slightly tachycardic and hypertensive. I'm going to increase the dose of atenolol 200 mg by mouth daily and add lisinopril to the current medical regimen. He is on dual antiplatelet therapy along with high intensity statin. An echocardiogram was performed and we will follow-up on that. Objective - Vital Signs Vital signs: Vital Signs Temp 98.1 F 07/28/20 09:00 Pulse 98 07/28/20 09:00 Resp 16 07/28/20 09:00 BP 153/85 07/28/20 09:00 Pulse Ox 93 L 07/28/20 09:00 Intake & Output 07/27/20 07/28/20 07/28/20 18:59 06:59 18:59 Intake Total 875 225 Output Total 1095 535 Balance -220 -310 Weight 108.862 kg Intake: IV 500 150 Sodium Chloride 0.9% 1, 150 000 ml @ 75 mls/hr IV . [id number] [facility] Rx#:[id number] Intake, IV Titration 375 75 Amount Sodium Chloride 0.9% 1, 375 75 000 ml @ 75 mls/hr IV . [id number] [facility]URA Rx#:[id number] Output: Urine 1095 535 Other: Voiding Method Indwelling Catheter Indwelling Catheter ABP, PAP, CO, CI - Last Documented Arterial Blood Pressure 166/78 - Constitutional General appearance: Present: no acute distress - Respiratory Respiratory: bilateral: CTA - Cardiovascular Rhythm: regular Heart sounds: normal: S1, S2 - Labs CBC & Chem 7: 07/27/20 21:00 07/27/20 21:00 Labs: Abnormal Lab Results - Last 24 Hours (Table) 07/27/20 07/27/2021 Range/Units 21:00 21:00 21:00 WBC 2.6 L (3.8-10.6) k/uL RBC 4.17 L (4.30-5.90) m/uL Hct 38.6 L (39.0-53.0) % Plt Count 133 L (150-450) k/uL Neutrophils # 1.2 L (1.3-7.7) k/uL APTT 20.2 L (22.0-30.0) sec Sodium 133 L (137-145) mmol/L BUN 33 H (9-20) mg/dL Glucose 452 H (74-99) mg/dL POC Glucose (mg/dL) (75-99) mg/dL Magnesium 1.5 L (1.6-2.3) mg/dL ALT 50 H (4-49) U/L Troponin I (0.000-0.034) ng/mL Total Protein 6.1 L (6.3-8.2) g/dL Triglycerides (<150) mg/dL HDL Cholesterol (40-60) mg/dL 07/27/20 07/28/20 07/28/20 Range/Units 21:02 00:53 01:14 WBC (3.8-10.6) k/uL RBC (4.30-5.90) m/uL Hct (39.0-53.0) % Plt Count (150-450) k/uL Neutrophils # (1.3-7.7) k/uL APTT (22.0-30.0) sec Sodium (137-145) mmol/L BUN (9-20) mg/dL Glucose (74-99) mg/dL POC Glucose (mg/dL) 441 H 389 H (75-99) mg/dL Magnesium (1.6-2.3) mg/dL ALT (4-49) U/L Troponin I 0.538 H* (0.000-0.034) ng/mL Total Protein (6.3-8.2) g/dL Triglycerides (<150) mg/dL HDL Cholesterol (40-60) mg/dL 07/28/20 07/28/20 07/28/20 Range/Units 04:20 04:20 10:19 WBC (3.8-10.6) k/uL RBC (4.30-5.90) m/uL Hct (39.0-53.0) % Plt Count (150-450) k/uL Neutrophils # (1.3-7.7) k/uL APTT (22.0-30.0) sec Sodium (137-145) mmol/L BUN (9-20) mg/dL Glucose (74-99) mg/dL POC Glucose (mg/dL) 314 H (75-99) mg/dL Magnesium (1.6-2.3) mg/dL ALT (4-49) U/L Troponin I 1.420 H* (0.000-0.034) ng/mL Total Protein (6.3-8.2) g/dL Triglycerides 432 H (<150) mg/dL HDL Cholesterol 36 L (40-60) mg/dL Assessment and Plan Assessment: Assessment #[address] patient myocardial infarction #2 coronary artery disease and prior stenting of the mid RCA #3 hypertension #4 dyslipidemia Plan #1 increase the dose of atenolol #2 continue dual antiplatelet therapy #3 high intensity statin #4 an echocardiogram
--- NOTE | 2020-07-28 10:41 | P.HPIM ---
History of Present Illness H&P Date: 07/28/20 Chief Complaint: STEMI HISTORY OF PRESENT ILLNESS This is a 75-year-old male one of my patient with previous medical history significant for coronary artery disease status post percutaneous coronary intervention and stent placement last one was in 12/13/2019 in the mid RCA at that time he was found to have a totally occluded obtuse marginal one of the LCx, with collaterals from the PDA, hypertension and hypertensive cardio vascular disease, hyperlipidemia, diabetes mellitus type 2, diabetic polyneuropathy, 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 as well as radio frequency ablation, prostate cancer status post radiation therapy, patient took himself off the Plavix due to significant bruising and bleeding against his 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 Vora underwent left heart catheterization through the right groin area showed significant calcified left and right system with heavily calcified thyroid cor onary artery is totally occluded the distal part, apparently Dr. Vora did have a heart causing the wire and inserting even a small balloon and he tried it the atherotomy procedure that did not cross the lesion eventually for seizure was halted due to the amount of contrast as well as the radiation and the patient has no chest or that time he was admitted to the intensive care unit in a fairly stable condition. REVIEW OF SYSTEMS Constitutional: No documented fever, no chills, no night sweats. No weight change. No weakness, fatigue or lethargy. No daytime sleepiness. EENT: No headache. No blurred vision or double vision, no loss of vision. No loss of Hearing, no ringing in the ears, no dizziness. No nasal drainage or congestion. No epistaxis. No sore throat. Lungs: Positive for shortness of breath, no cough, no sputum production. No wheezing. Reports dyspnea with activity. Cardiovascular: positive forchest pain, no lower extremity edema. No palpitations. No paroxysmal nocturnal dyspnea. No orthopnea. No lightheadedness or dizziness. No syncopal episodes. Abdominal: no abdominal pain. positive for nausea, no vomiting. No diarrhea. No constipation. No bloody or tarry stools reports loss of appetite. Genitourinary: No dysuria, increased frequency, urgency. No urinary retention. Musculoskeletal: No myalgias. No muscle weakness, positive for gait dysfunct ion, no frequent falls. positive for back pain. positive for neck pain. Integumentary: No wounds, no lesions. No rash or pruritus. No unusual bruising. No change in hair or nails. Neurologic: No aphasia. No facial droop. No change in mentation. No head injury. No headache. No paralysis, positive for neuropathy in both feet. Psychiatric: No depression. No anxiety. No mood swings. Endocrine: No abnormal blood sugars. No weight change. SOCIAL HISTORY Patient is a smoker a pack every day smoked for many years and quit many years ago, he denies any alcohol ingestion, patient used to work for the [employer]. FAMILY HISTORY father at age of 49 from myocardial infarction, mother at age of 81 from uterine cancer with metastatic disease, patient has one brother with ch ronic tobacco use and dependence, patient has no sisters, patient has one son no major medical problems, he had 2 daughters one of them from dishing muscular dystrophy the other one is alive and lives in [place]. PHYSICAL EXAMINATION General: 75-year-old male who is laying down in bed in no apparent respiratory distress at the time of evaluation. HEENT: Head is atraumatic, normocephalic, pupils were equal round reactive to light and recommendation, extraocular muscle movement were intact, sclera nonicteric, conjunctivae were pale, mucous membranes of the mouth are somewhat d ry. Neck: Supple, no JVP, normal carotid upstroke bilaterally, no lymphadenopathy. Chest: Decreased breath sounds at the bases, few rhonchi, no extremity wheezes, no chest wall tenderness, no intercostal retractions. Heart: First heart sound is normal, second heart sounds normal there is systolic ejection murmur 2/6. Sternal border. Abdomen: Soft, nontender, nondistended, positive bowel sounds. Extremities: There is no edema no calf tenderness DP +1 bilaterally, bilateral lower extremity neuropathy with Hammer toes. Neurologic examination: Patient is awake alert and oriented X3, cranial nerves II-12 appear grossly intact, muscle power were 5 out of 5 in upper extremities and 5 out of 5 in bilateral lower extremities, deep tendon reflexes normal bilaterally. ASSESSMENT AND PLAN 1. Inferior wall ST elevation myocardial infarctions status post left heart catheterization with attempted PCI of the occluded RCA without success. Continue patient on aspirin 81 mg once every day, Plavix 75 mg once every day, continue patient on Lipitor 80 mg once every day, continue atenolol 50 mg orally once every day as well as isosorbide mononitrate 60 minute gram orally once every day, forest pathology teacher following. 2. Hypertension and hypertensive cardiovascular disease. Continue Diovan 320 mg once every day, hydrochlorothiazide 12.5 mg orally once every day, continue with atenolol 50 mg orally once every day, monitor the patient blood pressure very closely. 3. Hyperlipidemia. Continue patient on Lipitor 80 mg once every day, keep LDL cholesterol 55-70. 4. Diabetes mellitus type 2 with diabetic polyneuropathy. Patient was taken off due to we will start Levemir 18 units subcu at bedtime, Tradjenta 5 mg orally once every day, continue with a sliding scale insulin. 5. Prostate cancer status post the radiation therapy. 6. 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 Chronic pain management we will continue with Mont[place] 10/325 mg one tablet orally twice every day as needed. 7. DVT prophylaxis. Heparin 5000 units subcutaneously every 12 hours. 8. GI prophylaxis. Continue Pepcid 20 mg orally once every day. 9. Admit to inpatient. Estimate a length of stay 2 midnights. 10. Patient is full code Past Medical History Past Medical History: Atrial Fibrillation, Coronary Artery Disease (CAD), Cancer, Chest Pain / Angina, Diabetes Mellitus, GERD/Reflux, Hyperlipidemia, Hypertension, Osteoarthritis (OA), Prostate Disorder Additional Past Medical History / Comment(s): 5 Herniated discs in neck causing headaches & numbness in arm and right lower back and pain and right leg pain. Hx 4 fx ribs, current Prostate Cancer- last radiation tx Mar 25 had total of 44 tx. occ constipation, Last Myocardial Infarction Date:: UNKOWN History of Any Multi-Drug Resistant Organisms: None Reported Past Surgical History: Adenoidectomy, Heart Catheterization, Heart Catheterization With Stent, Joint Replacement, Orthopedic Surgery, Tonsillectomy Additional Past Surgical History / Comment(s): PROSTATE BX., LT. KNEE ARTHROSCOPY X 2, CERVICAL FUSIONS, COLONOSCOPY, ÁNGEL. CATARTACTS.Pain Procedures , rt radio frequency procedures. , total 3 heart stents, hemorrhoidectomy,heart cath August 2017-lt knee replacement Past Anesthesia/Blood Transfusion Reactions: No Reported Reaction Additional Past Anesthesia/Blood Transfusion Reaction / Comment(s): doesn't like enclosed tight spaces Date of Last Stent Placement:: 04/24/17 Past Psychological History: No Psychological Hx Reported Smoking Status: Former smoker Past Alcohol Use History: None Reported Past Drug Use History: None Reported - Past Family History Father Additional Family Medical History / Comment(s): Father at age 49 from coronary artery disease. Brother(s) Additional Family Medical History / Comment(s): Patient has one brother with history of smoking and no other major medical problems. Patient does not have any sisters. Daughter(s) Additional Family Medical History / Comment(s): He has one daughter alive in [place] with no major medical problems. Patient has one daughter with history of muscular dystrophy and of pneumonia. Son(s) Family Medical History: No Reported History Additional Family Medical History / Comment(s): Patient has one son with no major medical problems. Mother Family Medical History: Cancer Additional Family Medical History / Comment(s): Mother at age 81 from uterine cancer with metastatic disease. Medications and Allergies Home Medications Medication Instructions Recorded Confirmed Type Atorvastatin Calcium [Lipitor] 40 mg PO DAILY 11/01/14 07/27/20 History atenoloL [Atenolol] 50 mg PO DAILY 05/25/18 07/27/20 History HYDROcodone/APAP 10-325MG [Montello 1 tab PO BID PRN 12/13/19 07/27/20 History 10-325] Valsartan/Hydrochlorothiazide 1 tab PO DAILY 12/13/19 07/27/20 History [Valsartan-Hctz 320-12.5 mg Tab] Isosorbide Mononitrate ER [Imdur] 30 mg PO DAILY #90 tab.er.24h 12/15/19 07/27/20 Rx Allergies Allergy/AdvReac Type Severity Reaction Status Date / Time No Known Allergies Allergy Verified 07/27/20 21:17 Physical Exam Vitals: Vital Signs Temp Pulse Pulse Pulse Resp BP BP 07/28/20 07:05 93 14 144/89 07/28/20 05:30 89 12 137/86 07/28/20 05:00 97.6 F 91 13 137/104 07/28/20 04:30 85 6 L 156/116 07/28/20 04:00 89 12 132/102 07/28/20 03:30 85 15 132/102 07/28/20 03:00 83 13 132/102 07/28/20 02:30 75 14 132/102 07/28/20 02:20 76 14 132/102 07/28/20 02:10 77 15 132/102 07/28/20 02:00 88 16 154/91 07/28/20 01:50 87 15 154/91 07/28/20 01:40 87 10 L 154/91 07/28/20 01:30 84 13 07/28/20 01:20 75 13 154/91 07/28/20 01:10 89 12 154/91 07/28/20 01:00 97.5 F L 89 7 L 157/85 07/27/20 21:25 98.0 F 84 16 145/87 07/27/20 21:20 98.0 F 82 16 140/91 07/27/20 21:15 98.0 F 80 16 145/93 07/27/20 21:10 98.0 F 84 16 129/79 07/27/20 21:05 98.0 F 85 85 16 164/100 07/27/20 21:00 84 18 160/89 Pulse Ox 07/28/20 07:05 91 L 07/28/20 05:30 96 07/28/20 05:00 95 07/28/20 04:30 96 07/28/20 04:00 96 07/28/20 03:30 96 07/28/20 03:00 96 07/28/20 02:30 95 07/28/20 02:20 94 L 07/28/20 02:10 94 L 07/28/20 02:00 94 L 07/28/20 01:50 94 L 07/28/20 01:40 94 L 07/28/20 01:30 94 L 07/28/20 01:20 95 07/28/20 01:10 94 L 07/28/20 01:00 95 07/27/20 21:25 97 07/27/20 21:20 97 07/27/20 21:15 97 07/27/20 21:10 97 07/27/20 21:05 97 07/27/20 21:00 94 L Intake and Output 07/27/20 07/28/20 07/28/20 22:59 06:59 14:59 Intake Total 500 375 75 Output Total 1095 160 Balance 500 -720 -85 Intake: IV 500 Intake, IV Titration 375 75 Amount Sodium Chloride 0.9% 1, 375 75 000 ml @ 75 mls/hr IV . [id number] [facility] Rx#:[id number] Output: Urine 1095 160 Other: Voiding Method Indwelling Catheter Weight 108.862 kg ABP, PAP, CO, CI - Last 8 Hours Arterial Blood Pressure 166/78 Arterial Blood Pressure 155/73 Arterial Blood Pressure 152/69 Arterial Blood Pressure 137/63 Arterial Blood Pressure 154/68 Arterial Blood Pressure 147/65 Arterial Blood Pressure 155/73 Arterial Blood Pressure 158/72 Arterial Blood Pressure 166/73 Results CBC & Chem 7: 07/27/20 21:00 07/27/20 21:00 Labs: Abnormal Lab Results - Last 24 Hours (Table) 07/27/20 07/27/20 07/27/20 Range/Units 21:00 21:00 21:00 WBC 2.6 L (3.8-10.6) k/uL RBC 4.17 L (4.30-5.90) m/uL Hct 38.6 L (39.0-53.0) % Plt Count 133 L (150-450) k/uL Neutrophils # 1.2 L (1.3-7.7) k/uL APTT 20.2 L (22.0-30.0) sec Sodium 133 L (137-145) mmol/L BUN 33 H (9-20) mg/dL Glucose 452 H (74-99) mg/dL POC Glucose (mg/dL) (75-99) mg/dL Magnesium 1.5 L (1.6-2.3) mg/dL ALT 50 H (4-49) U/L Troponin I (0.000-0.034) ng/mL Total Protein 6.1 L (6.3-8.2) g/dL Triglycerides (<150) mg/dL HDL Cholesterol (40-60) mg/dL 07/27/20 07/28/20 07/28/20 Range/Units 21:02 00:53 01:14 WBC (3.8-10.6) k/uL RBC (4.30-5.90) m/uL Hct (39.0-53.0) % Plt Count (150-450) k/uL Neutrophils # (1.3-7.7) k/uL APTT (22.0-30.0) sec Sodium (137-145) mmol/L BUN (9-20) mg/dL Glucose (74-99) mg/dL POC Glucose (mg/dL) 441 H 389 H (75-99) mg/dL Magnesium (1.6-2.3) mg/dL ALT (4-49) U/L Troponin I 0.538 H* (0.000-0.034) ng/mL Total Protein (6.3-8.2) g/dL Triglycerides (<150) mg/dL HDL Cholesterol (40-60) mg/dL 07/28/20 07/28/20 Range/Units 04:20 04:20 WBC (3.8-10.6) k/uL RBC (4.30-5.90) m/uL Hct (39.0-53.0) % Plt Count (150-450) k/uL Neutrophils # (1.3-7.7) k/uL APTT (22.0-30.0) sec Sodium (137-145) mmol/L BUN (9-20) mg/dL Glucose (74-99) mg/dL POC Glucose (mg/dL) (75-99) mg/dL Magnesium (1.6-2.3) mg/dL ALT (4-49) U/L Troponin I 1.420 H* (0.000-0.034) ng/mL Total Protein (6.3-8.2) g/dL Triglycerides 432 H (<150) mg/dL HDL Cholesterol 36 L (40-60) mg/dL
[2020-07-28] MEDS: VALSARTAN 160 MG TAB PO SCH ×3 (10:57→18:43)
[2020-07-28] MEDS: FAMOTIDINE 20 MG TAB PO SCH (11:01)
[2020-07-28 11:28] LABS: Basophils % (A) 0 %; Eosinophils % (A) 1 %; HCT 41.3 % (39.0-53.0); HGB 14.7 gm/dL (13.0-17.5); Lymphocytes # (A) 0.4 k/uL (1.0-4.8); Lymphocytes % (A) 10 %; MCH 32.7 pg (25.0-35.0); MCHC 35.5 g/dL (31.0-37.0); MCV 92.1 fL (80.0-100.0); Mean Platelet Volume 7.2; Monocytes # (A) 0.2 k/uL (0-1.0); Monocytes % (A) 5 %; Neutrophils # (A) 3.9 k/uL (1.3-7.7); Neutrophils % (A) 84 %; Platelet Count 155 k/uL (150-450); RBC 4.49 m/uL (4.30-5.90); RDW 12.2 % (11.5-15.5); WBC 4.6 k/uL (3.8-10.6)
[2020-07-28] MEDS: LINAGLIPTIN 5 MG TABLET PO SCH (11:40)
[2020-07-28 11:42] LABS: Calcium 8.8 mg/dL (8.4-10.2); Potassium 4.4 mmol/L (3.5-5.1)
[2020-07-28 12:19] LABS: Glucose,Whole Blood 411 mg/dL (75-99)
[2020-07-28 13:23] LABS: Glucose,Whole Blood 379 mg/dL (75-99)
[2020-07-28] MEDS: MAGNESIUM SULFATE-D5W PMX 1 GM in DEXTROSE/WATER 1 100ML.BAG IVPB SCH ×2 (16:35→17:59)
[2020-07-28 16:51] LABS: Glucose,Whole Blood 284 mg/dL (75-99)
[2020-07-28] MEDS: ACETAMINOPHEN TAB 325 MG TAB PO PRN (18:48)
[2020-07-28 19:58] LABS: Glucose,Whole Blood 260 mg/dL (75-99)
[2020-07-28] MEDS ORDERED: INSULIN DETEMIR (LEVEMIR) 100 UNIT/ML SYR SQ SCH (21:00)
[2020-07-29] MEDS: CLOPIDOGREL 75 MG TAB PO SCH ×2 (00:22→20:51)
[2020-07-29] MEDS: ACETAMINOPHEN TAB 325 MG TAB PO PRN (03:25)
[2020-07-29 06:09] LABS: Glucose,Whole Blood 238 mg/dL (75-99)
[2020-07-29] MEDS: INSULIN ASPART (NovoLOG) 100 UNIT/ML VIAL SQ SCH ×4 (06:58→20:51)
[2020-07-29 07:54] LABS: Basophils % (A) 0 %; Eosinophils % (A) 0 %; HCT 38.2 % (39.0-53.0); HGB 12.8 gm/dL (13.0-17.5); Lymphocytes # (A) 0.5 k/uL (1.0-4.8); Lymphocytes % (A) 17 %; MCH 31.5 pg (25.0-35.0); MCHC 33.4 g/dL (31.0-37.0); MCV 94.4 fL (80.0-100.0); Mean Platelet Volume 7.3; Monocytes # (A) 0.3 k/uL (0-1.0); Monocytes % (A) 10 %; Neutrophils # (A) 1.9 k/uL (1.3-7.7); Neutrophils % (A) 69 %; Platelet Count 126 k/uL (150-450); RBC 4.04 m/uL (4.30-5.90); WBC 2.7 k/uL (3.8-10.6)
[2020-07-29 08:16] LABS: Albumin 3.4 g/dL (3.5-5.0); Calcium 8.9 mg/dL (8.4-10.2); Potassium 4.3 mmol/L (3.5-5.1); Total Bilirubin 1.1 mg/dL (0.2-1.3); Total Protein 5.5 g/dL (6.3-8.2)
[2020-07-29] MEDS ORDERED: atenoloL 50 MG TAB PO SCH (09:00)
[2020-07-29] MEDS: ISOSORBIDE MONONITRATE ER 60 MG TAB.ER.24H PO SCH (09:24)
[2020-07-29] MEDS: LINAGLIPTIN 5 MG TABLET PO SCH (09:24)
[2020-07-29] MEDS: ATORVASTATIN 80 MG TAB PO SCH (09:24)
[2020-07-29] MEDS: hydroCHLOROthiazide 12.5 MG CAP PO SCH (09:24)
[2020-07-29] MEDS: FAMOTIDINE 20 MG TAB PO SCH (09:24)
[2020-07-29] MEDS ORDERED: ASPIRIN 81 MG PO SCH (10:30)
[2020-07-29] MEDS ORDERED: HEPARIN SODIUM 1,000 UN/ML (10ML VL) IV ONE (10:33)
[2020-07-29] MEDS ORDERED: HEPARIN SODIUM 1,000 UN/ML (10ML VL) IV PRN (10:33)
[2020-07-29] MEDS ORDERED: HEPARIN SOD,PORK IN 0.45% NACL 25,000 UNIT in 0.45% NACL 1 250ML.BAG IV SCH (10:45)
--- NOTE | 2020-07-29 10:56 | PN ---
PROGRESS NOTE Mr. Berkowitz 75-year-old male with known history of coronary artery disease, prior percutaneous revascularization of the RCA, history of hypertension, hyperlipidemia, who presented to the emergency room with an episode of chest discomfort and ST-segment elevation consistent with myocardial infarction involving the right coronary artery territory. He underwent cardiac catheterization by Dr. Vora and was found to have a totally occluded distal right coronary artery and a heavily calcified segment. The stented segment in the mid RCA that was done in November of last year was patent but has some in-stent restenosis. Multiple attempts to advance a balloon or do atherectomy on the lesion apparently was unsuccessful. At that point, the of the procedure was aborted. The patient was pain-free. He continues to be pain-free today, but he has not been active physically. He has been having the pain recently over the last few days with physical activity. He denies any dizziness or palpitation. He denies any nausea. He continued to be on Plavix once a day, atenolol 100 mg daily, Lipitor 80 mg daily, hydrochlorothiazide 12.5 mg daily, Diovan 320 mg daily, Tradjenta, insulin. PHYSICAL EXAMINATION: Blood pressure running in the 140s with the heart rate in the 80s. LUNGS: Clear. HEART: Regular rate and rhythm. S1, S2. No S3. No rub with systolic murmur. ABDOMEN: Soft, obese, nontender. EXTREMITIES: No edema. LAB DATA: Lab data revealed BUN and creatinine 21 and 1.14, 131, hemoglobin 12.8. His white blood cells 2.7, which has been on the lower side in the past. His troponin peaked at 1.420. IMPRESSION: 1. Status post acute ST-segment elevation myocardial infarction with inability to dilate the lesion in the distal RCA in a heavily calcified vessel. 2. History of coronary artery disease and multiple procedure on the RCA. 3. History of hypertension. 4. Hyperlipidemia. 5. Diabetes mellitus. 6. Obesity. RECOMMENDATION: I have discussed with the patient the findings. I recommend to proceed with transfer to [facility] to see if complex angioplasty on the RCA can be performed. I have discussed with him those findings and recommendations. I will start him on IV heparin. I will contact the team at [facility] and hopefully he will be able to be transferred. MMODL / IJN: [id number] /
[2020-07-29 10:59] LABS: Basophils % (A) 0 %; Eosinophils % (A) 1 %; HCT 38.7 % (39.0-53.0); HGB 13.9 gm/dL (13.0-17.5); Lymphocytes # (A) 0.5 k/uL (1.0-4.8); Lymphocytes % (A) 15 %; MCH 32.6 pg (25.0-35.0); MCHC 35.8 g/dL (31.0-37.0); MCV 91.2 fL (80.0-100.0); Mean Platelet Volume 7.2; Monocytes # (A) 0.3 k/uL (0-1.0); Monocytes % (A) 10 %; Neutrophils # (A) 2.5 k/uL (1.3-7.7); Neutrophils % (A) 72 %; Platelet Count 125 k/uL (150-450); RBC 4.25 m/uL (4.30-5.90); RDW 12.1 % (11.5-15.5); WBC 3.4 k/uL (3.8-10.6)
[2020-07-29 11:27] LABS: Prothrombin Time 10.6 sec (9.0-12.0)
--- NOTE | 2020-07-29 11:47 | ECHOF ---
Referral Reason:STEMI MEASUREMENTS -------- HEIGHT: 180.3 cm WEIGHT: 110.2 kg BP: 145/82 IVSd: 0.9 cm (0.6 - 1.1) LVIDd: 4.7 cm (3.9 - 5.3) LVPWd: 1.0 cm (0.6 - 1.1) IVSs: 1.5 cm LVIDs: 2.1 cm LVPWs: 1.3 cm Ao Diam: 3.4 cm (2.0 - 3.7) AV Cusp: 2.1 cm (1.5 - 2.6) LA Diam: 3.8 cm (2.7 - 3.8) MV EXCURSION: 21.692 mm (> 18.000) MV EF SLOPE: 80 mm/s (70 - 150) EPSS: 2.8 cm MV E Tobias: 0.52 m/s MV DecT: 166 ms MV A Tobias: 0.82 m/s MV E/A Ratio: 0.63 RAP: 5.00 mmHg RVSP: 11.07 mmHg FINDINGS -------- This was a technically difficult study with suboptimal views. The left ventricular size is normal. Left ventricular wall thickness is normal. Overall left vent ricular systolic function is severely impaired with, an EF between 25 - 30 %. Mid anterior LV wall motion is hypokinetic. Mid lateral LV wall motion is hypokinetic. Mid inferior LV wall motion i s hypokinetic. Mid inferoseptal LV wall motion is hypokinetic. Apical anterior LV wall motion i s hypokinetic. Apical lateral LV wall motion is hypokinetic. Apical inferior LV wall motion is hypokinetic. Apical septum LV wall motion is hypokinetic. The right ventricle is normal in size. The left atrial size is normal. The right atrial size is normal. Lumason used The aortic valve is trileaflet and appears structurally normal. The mitral valve is normal. Mild mitral regurgitation is present. The tricuspid valve appears structurally normal. Mild tricuspid regurgitation present. Right vent ricular systolic pressure is normal at < 35 mmHg. Trace/mild (physiologic) pulmonic regurgitation. The aortic root size is normal. IVC Not well visulized. There is a trivial pericardial effusion present. CONCLUSIONS -------- 1. The left ventricular size is normal. 2. Left ventricular wall thickness is normal. 3. Overall left ventricular systolic function is severely impaired with, an EF between 25 - 30 %. 4. Mid anterior LV wall motion is hypokinetic. 5. Mid lateral LV wall motion is hypokinetic. 6. Mid inferior LV wall motion is hypokinetic. 7. Mid inferoseptal LV wall motion is hypokinetic. 8. Apical anterior LV wall motion is hypokinetic. 9. Apical lateral LV wall motion is hypokinetic. 10. Apical inferior LV wall motion is hypokinetic. 11. Apical septum LV wall motion is hypokinetic. 12. Mild mitral regurgitation is present. 13. Mild tricuspid regurgitation present. 14. Trace/mild (physiologic) pulmonic regurgitation. 15. There is a trivial pericardial effusion present. MOBILE DESIGNER: Rachel Blount RDCS
--- NOTE | 2020-07-29 11:49 | P.TRANS ---
Providers Date of admission: 07/27/20 21:12 Expected date of discharge: 07/29/20 Attending physician: German Astudillo Consults: 07/27/20 21:12 Consult Physician Urgent Consulting Provider: Krishna Vora Consult Reason/Comments: STEMI Do you want consulting provider notified?: Already Contacted 07/28/20 00:17 Consult Physician Routine Consulting Provider: [facility] Consult Reason/Comments: Post Interventional patient Do you want consulting provider notified?: Already Contacted 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 Vora underwent left heart catheterization through the right groin area showed significant calcified left and right system with heavily calcified thyroid coronary artery is totally occluded the distal part, apparently Dr. Vora had difficulty advancing the wire and inserting even a small balloon and he tried it the atherotomy procedure that did not cross the lesion eventually for seizure was halted due to the amount of contrast as well as the radiation and the patient has no chest or that time he was admitted to the intensive care unit in a fairly stable condition. 07/29: She had an episode of chest pain at 3 AM and required nitroglycerin. He denies any chest pain at the time of evaluation. Patient states that he declined moving forward for repeat cath/angioplasty. Dr. Valencia discussed with the patient in detail and he recommends proceeding before transfer to [facility] for complex angioplasty on the RCA. Patient to be started on IV heparin. Patient has been afebrile, heart rate 88, blood pressure 145/82, pulse ox 97% on room air. Repeat blood work reveals WBC 3.4, hemoglobin 13.9, platelet count 125. Sodium 131, potassium 4.3, chloride 97, CO2 29, BUN 21 and creatinine 1.14. Blood sugars running between 211 inches 184. We are increasing his Levemir to 21 units at bedtime. Patient will be transferred to [facility] once arrangements are completed. REVIEW OF SYSTEMS Constitutional: No documented fever, no chills, no night sweats. No weight change. No weakness, fatigue or lethargy. No daytime sleepiness. EENT: No headache. No blurred vision or double vision, no loss of vision. No loss of Hearing. No nasal drainage or congestion. No epistaxis. No sore thro at. Lungs: Positive for shortness of breath, no cough, no sputum production. No wheezing. Reports dyspnea with activity. Cardiovascular: positive for intermittent episodes of chest pain, no lower extremity edema. No palpitations. No paroxysmal nocturnal dyspnea. No orthopnea. No lightheadedness or dizziness. No syncopal episodes. Abdominal: no abdominal pain. positive for nausea, no vomiting. No diarrhea. No constipation. No bloody or tarry stools reports loss of appetite. Genitourinary: No dysuria, increased frequency, urgency. No urinary retention. Musculoskeletal: No myalgias. No muscle weakness, positive for gait dysfunction, no frequent falls. positive for back pain. positive for neck pain. Integumentary: No wounds, no lesions. No rash or pruritus. No unusual bruising. No change in hair or nails. Neurologic: No aphasia. No facial droop. No change in mentation. No head injury. No headache. No paralysis, positive for neuropathy in both feet. Psychiatric: No depression. No anxiety. Endocrine: No abnormal blood sugars. No weight change. PHYSICAL EXAMINATION General: 75-year-old male who is laying down in bed in no apparent respiratory distress at the time of evaluation. HEENT: Head is atraumatic, normocephalic, pupils were equal round reactive to light and recommendation, extraocular muscle movement were intact, sclera nonicteric, conjunctivae were pale, mucous membranes of the mouth are somewhat dry. Neck: Supple, no JVP, normal carotid upstroke bilaterally, no lymphadenopathy. Chest: Decreased breath sounds at the bases, few rhonchi, no extremity wheezes, no chest wall tenderness, no intercostal retractions. Heart: First heart sound is normal, second heart sounds normal there is systolic ejection murmur 2/6. Sternal border. Abdomen: Soft, nontender, nondistended, positive bowel sounds. Extremities: There is no edema no calf tenderness DP +1 bilaterally, bilateral lower extremity neuropathy with Hammer toes. Neurologic examination: Patient is awake alert and oriented X3, cranial nerves II-12 appear grossly intact, muscle power were 5 out of 5 in upper extremities and 5 out of 5 in bilateral lower extremities, deep tendon reflexes normal bilaterally. ASSESSMENT AND PLAN 1. Inferior wall ST elevation myocardial infarctions status post left heart catheterization with attempted PCI of the occluded RCA without success. Continue patient on aspirin 81 mg once every day, Plavix 75 mg once every day, continue patient on Lipitor 80 mg once every day, continue atenolol increased to 100 mg daily as well as isosorbide mononitrate 60 mg orally once every day. Cardiology consult appreciated.. 2. Hypertension and hypertensive cardiovascular disease. Continue Diovan 320 mg once every day, hydrochlorothiazide 12.5 mg orally once every day, continue with atenolol 100 mg orally once every day, monitor the patient blood pressure very closely. 3. Hyperlipidemia. Continue patient on Lipitor 80 mg once every day, keep LDL cholesterol 55-70. 4. Diabetes mellitus type 2 with diabetic polyneuropathy. Blood sugars uncontrolled with hyperglycemia. Patient was taken off Janumet and patient started on Levemir which will be increased to 21 units subcu at bedtime, Tradjenta 5 mg orally once every day, continue with a sliding scale insulin. 5. Prostate cancer status post the radiation therapy. 6. 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 Chronic pain management we will continue with Warren 10/325 mg one tablet orally twice every day as needed. 7. DVT prophylaxis. Heparin 5000 units subcutaneously every 12 hours. 8. GI prophylaxis. Continue Pepcid 20 mg orally once every day. Patient is full code Transfer to [facility] once arrangements are completed. Impression and plan of care have been directed as dictated by the signing physician. Padma Monsalve nurse practitioner acting as scribe for signing physician. Patient Condition at Discharge: Stable Plan - Transfer Summary Transfer Medications: Active Medications Generic Name Dose Route Start Last Admin Trade Name Freq PRN Reason Stop Dose Admin Acetaminophen 650 mg 07/28/20 18:45 07/29/20 03:25 Acetaminophen Tab 325 Mg Tab PO 650 mg Q6HR PRN Administration Fever and/ or Mild Pain Hydrocodone Bitart/Acetaminophen 1 each 07/28/20 00:15 Hydrocodone/Apap 10-325mg 1 Each Tab PO BID PRN Pain Al Hydroxide/Mg Hydroxide 30 ml 07/28/20 00:17 07/28/20 09:56 Mag Hydrox/Al Hydrox/Simeth 30 Ml Cup PO 30 ml Q4HR PRN Administration Heartburn Aspirin 81 mg 07/29/20 10:30 Aspirin 81 Mg PO DAILY [facility] Atenolol 100 mg 07/29/20 09:00 07/29/20 09:24 Atenolol 50 Mg Tab PO 100 mg DAILY [facility] Administration Atorvastatin Calcium 80 mg 07/28/20 09:00 07/29/20 09:24 Atorvastatin 80 Mg Tab PO 80 mg DAILY [facility] Administration Atropine Sulfate 0.5 mg 07/28/20 00:17 Atropine Sulfate 0.1 Mg/Ml 10ml Syringe IV ONCE PRN Symptomatic Bradycardia Clopidogrel Bisulfate 75 mg 07/29/20 00:17 07/29/20 00:22 Clopidogrel 75 Mg Tab PO 75 mg DAILY@2100 [facility] Administration Famotidine 20 mg 07/28/20 10:15 07/29/20 09:24 Famotidine 20 Mg Tab PO 20 mg DAILY [facility] Administration Heparin Sodium (Porcine) 0 unit 07/29/20 10:33 Heparin Sodium 1,000 Un/Ml (10ml Vl) IV PER PROTOCOL PRN Low PTT Protocol Hydrochlorothiazide 12.5 mg 07/28/20 09:00 07/29/20 09:24 Hydrochlorothiazide 12.5 Mg Cap PO 12.5 mg DAILY [facility] Administration Heparin Sodium/Sodium Chloride 250 mls @ 10 mls/hr 07/29/20 10:45 25,000 unit/ Sodium Chloride IV .Q24H [facility] Protocol 9.066 UNITS/KG/HR Insulin Aspart 0 unit 07/28/20 07:30 07/29/20 06:58 Insulin Aspart (Novolog) 100 Unit/Ml Vial SQ 5 unit ACHS [facility] Administration Protocol Insulin Detemir 21 unit 07/29/20 21:00 Insulin Detemir (Levemir) 100 Unit/Ml Syr SQ HS [facility] Isosorbide Mononitrate 60 mg 07/28/20 09:00 07/29/20 09:24 Isosorbide Mononitrate Er 60 Mg Tab.Er.24h PO 60 mg DAILY [facility] Administration Linagliptin 5 mg 07/28/20 10:45 07/29/20 09:24 Linagliptin 5 Mg Tablet PO 5 mg DAILY [facility] Administration Miscellaneous Information 1 each 07/28/20 00:17 Rx Info: Iv Contrast Was Given 1 Each Misc MISCELLANE 07/30/20 00:17 DAILY PRN Per Protocol Nitroglycerin 0.4 mg 07/28/20 00:17 07/29/20 03:38 Nitroglycerin Sl Tabs 0.4 Mg Tab SUBLINGUAL 0.4 mg Q5M PRN Administration Chest Pain Valsartan 320 mg 07/28/20 18:00 07/28/20 18:43 Valsartan 160 Mg Tab PO 320 mg DAILY@1800 [facility] Administration Zolpidem Tartrate 5 mg 07/28/20 00:17 Zolpidem 5 Mg Tab PO HS PRN Insomnia Follow up Appointment(s)/Referral(s): German Astudillo MD [Primary Care Provider] - 1-2 days
[2020-07-29 11:50] LABS: Partial Thromboplastin Time 20.4 sec (22.0-30.0)
[2020-07-29 12:05] LABS: Glucose,Whole Blood 257 mg/dL (75-99)
[2020-07-29 13:09] VITALS: BMI 32.1
[2020-07-29 16:48] LABS: Glucose,Whole Blood 243 mg/dL (75-99)
[2020-07-29] MEDS: VALSARTAN 160 MG TAB PO SCH (17:23)
[2020-07-29 20:43] LABS: Glucose,Whole Blood 241 mg/dL (75-99)
[2020-07-29] MEDS ORDERED: INSULIN DETEMIR (LEVEMIR) 100 UNIT/ML SYR SQ SCH (21:00)
[2020-07-30 01:18] VITALS: BP 96/61; PULSE 67; RESP 18; TEMP 98.3
== END 2020-07-30 01:30 | disposition short-term general hospital, planned readmission (82) | DRG 251 ==
LOC: EC 20:57 → 3SCARD 21:12 → 2SICU 22:36 → 3SCARD 07-28 14:04
PROVIDERS: ADMIT Internal Medicine; ATTEND Internal Medicine
PROC: 02C03ZZ Extirpation of Matter from Coronary Artery, One Artery, Percutaneous Approach (ICD-10-PCS; principal; 2020-07-28)
PROC: 02703ZZ Dilation of Coronary Artery, One Artery, Percutaneous Approach (ICD-10-PCS; 2020-07-28)
PROC: B2111ZZ Fluoroscopy of Multiple Coronary Arteries using Low Osmolar Contrast (ICD-10-PCS; 2020-07-28)
PROC: 5A1223Z Performance of Cardiac Pacing, Continuous (ICD-10-PCS; 2020-07-28)
PROC: 02HK3JZ Insertion of Pacemaker Lead into Right Ventricle, Percutaneous Approach (ICD-10-PCS; 2020-07-28)
DX: I21.19 ST elevation (STEMI) myocardial infarction involving other coronary artery of inferior wall (principal); T82.855A Stenosis of coronary artery stent, initial encounter; Z95.5 Presence of coronary angioplasty implant and graft; I25.10 Atherosclerotic heart disease of native coronary artery without angina pectoris; I48.91 Unspecified atrial fibrillation; E11.42 Type 2 diabetes mellitus with diabetic polyneuropathy; C61 Malignant neoplasm of prostate; I25.2 Old myocardial infarction; I11.9 Hypertensive heart disease without heart failure; Z20.822 Contact with and (suspected) exposure to COVID-19; Z92.3 Personal history of irradiation; Z79.82 Long term (current) use of aspirin; Z79.02 Long term (current) use of antithrombotics/antiplatelets; E78.5 Hyperlipidemia, unspecified; Z79.4 Long term (current) use of insulin; M47.816 Spondylosis without myelopathy or radiculopathy, lumbar region; Y83.8 Other surgical procedures as the cause of abnormal reaction of the patient, or of later complication, without mention of misadventure at the time of the procedure; E66.9 Obesity, unspecified; Z68.32 Body mass index [BMI] 32.0-32.9, adult; Z87.891 Personal history of nicotine dependence; Z53.9 Procedure and treatment not carried out, unspecified reason; Z82.49 Family history of ischemic heart disease and other diseases of the circulatory system; Z85.46 Personal history of malignant neoplasm of prostate; Z96.652 Presence of left artificial knee joint
CPT/HCPCS: 36415; 71045; 80048; 80053; 80061; 83735; 83880; 84484; 85025; 85347; 85610; 85730; 87635; 92924; 93005; 93306; 93454; 96374; 99285

== ENCOUNTER 2020-08-05 14:42 | Inpatient (IN) | payer MEDICARE, BC ==
[2020-08-05] MEDS ORDERED: ALBUTEROL HFA INHALER INHALATION PRN (15:18)
[2020-08-05] MEDS ORDERED: ALBUTEROL HFA INHALER INHALATION STA (15:18)
[2020-08-05] MEDS ORDERED: ACETAMINOPHEN TAB 500 MG TAB PO STA (15:18)
[2020-08-05] MEDS ORDERED: LIDOCAINE 1% INJ 10MG/ML (20 ML MDV) SQ ONE (15:19)
--- NOTE | 2020-08-05 15:23 | ED ---
General Adult HPI - General Chief complaint: Chest Pain Stated complaint: chest pain Time Seen by Provider: 08/05/20 15:05 Source: patient, EMS, RN notes reviewed Mode of arrival: EMS Limitations: no limitations - History of Present Illness Initial comments: Patient is a pleasant 75-year-old male presenting to the emergency Department with chest discomfort. Patient has not been feeling well for a couple of days. Onset of symptoms was over 2 days ago. Patient does have some cough, nonproductive. Patient is having some chest pressure, that started today and is mild at this time. Patient does have some discomfort of his left knee as well as diffuse myalgias. Patient did have knee surgery a couple of years ago, replacement. Patient does have chills and fatigue. - Related Data Home Medications Medication Instructions Recorded Confirmed Atorvastatin Calcium [Lipitor] 80 mg PO DAILY@0900 11/01/14 08/05/20 Valsartan/Hydrochlorothiazide 1 tab PO DAILY@1800 12/13/19 08/05/20 [Valsartan-Hctz 320-12.5 mg Tab] Aspirin [Taylor Aspirin EC] 81 mg PO DAILY@0900 08/05/20 08/05/20 Atenolol [Tenormin] 50 mg PO DAILY@0900 08/05/20 08/05/20 Isosorbide Mononitrate ER [Imdur] 60 mg PO DAILY@0908/05/20 08/05/20 Allergies Allergy/AdvReac Type Severity Reaction Status Date / Time No Known Allergies Allergy Verified 08/05/20 17:38 Review of Systems ROS Statement: Those systems with pertinent positive or pertinent negative responses have been documented in the HPI. ROS Other: All systems not noted in ROS Statement are negative. Constitutional: Reports: fever, chills Eyes: Denies: eye pain ENT: Denies: ear pain Respiratory: Reports: cough, dyspnea Cardiovascular: Reports: chest pain Endocrine: Reports: fatigue Gastrointestinal: Denies: abdominal pain Genitourinary: Denies: urgency Musculoskeletal: Denies: back pain Skin: Denies: rash Neurological: Denies: weakness Past Medical History Past Medical History: Atrial Fibrillation, Coronary Artery Disease (CAD), Cancer, Chest Pain / Angina, Diabetes Mellitus, GERD/Reflux, Hyperlipidemia, Hypertension, Osteoarthritis (OA), Prostate Disorder Additional Past Medical History / Comment(s): 5 Herniated discs in neck causing headaches & numbness in arm and right lower back and pain and right leg pain. Hx 4 fx ribs, current Prostate Cancer- last radiation tx Mar 25 had total of 44 tx. occ constipation, Last Myocardial Infarction Date:: UNKOWN History of Any Multi-Drug Resistant Organisms: None Reported Past Surgical History: Adenoidectomy, Heart Catheterization, Heart Catheterization With Stent, Joint Replacement, Orthopedic Surgery, Tonsillectomy Additional Past Surgical History / Comment(s): PROSTATE BX., LT. KNEE ARTHROSCOPY X 2, CERVICAL FUSIONS, COLONOSCOPY, ÁNGEL. CATARTACTS.Pain Procedures , rt radio frequency procedures. , total 3 heart stents, hemorrhoidectomy,heart cath August 2017-lt knee replacement. Stent replacement Past Anesthesia/Blood Transfusion Reactions: No Reported Reaction Additional Past Anesthesia/Blood Transfusion Reaction / Comment(s): doesn't like enclosed tight spaces Date of Last Stent Placement:: 04/24/17 Past Psychological History: No Psychological Hx Reported Smoking Status: Former smoker Past Alcohol Use History: None Reported Past Drug Use History: None Reported - Past Family History Father Additional Family Medical History / Comment(s): Father at age 49 from coronary artery disease. Brother(s) Additional Family Medical History / Comment(s): Patient has one brother with history of smoking and no other major medical problems. Patient does not have any sisters. Daughter(s) Additional Family Medical History / Comment(s): He has one daughter alive in [place] with no major medical problems. Patient has one daughter with history of muscular dystrophy and of pneumonia. Son(s) Family Medical History: No Reported History Additional Family Medical History / Comment(s): Patient has one son with no major medical problems. Mother Family Medical History: Cancer Additional Family Medical History / Comment(s): Mother at age 81 from uterine cancer with metastatic disease. General Exam Limitations: no limitations General appearance: alert, in no apparent distress Head exam: Present: normocephalic Eye exam: Present: normal appearance Neck exam: Present: normal inspection. Absent: tenderness Respiratory exam: Present: normal lung sounds bilaterally Cardiovascular Exam: Present: normal rhythm, tachycardia Expanded Peripheral pulses: 2+: Radial (R), Radial (L), Dorsalis Pedis (R), Dorsalis Pe dis (L) GI/Abdominal exam: Present: soft. Absent: tenderness Extremities exam: Present: pedal edema, other (Mild left knee effusion) Neurological exam: Present: alert Psychiatric exam: Present: normal affect, normal mood Skin exam: Present: normal color. Absent: rash, erythema Course Vital Signs 08/05/20 08/05/20 08/05/20 14:44 16:57 18:19 Temperature 101.9 F H 98.3 F Pulse Rate 106 H 97 95 Respiratory 18 18 18 Rate Blood Pressure 121/61 100/66 106/61 O2 Sat by Pulse 94 L 94 L Oximetry 08/05/20 18:48 Temperature Pulse Rate Respiratory 18 Rate Blood Pressure O2 Sat by Pulse Oximetry - Reevaluation(s) Reevaluation #1: 08/05/20 19:45 Case was discussed with Dr. Choi who will also consult and agrees with antibiotic choice. He request patient remain nothing by mouth for possible washout 08/05/20 20:01 There is concern for sepsis diagnosed at 1945. Blood culture and lactic acid was ordered. IV antibiotics have been ordered. 08/05/20 20:08 Patient was reevaluated and updated. EKG Findings - EKG Comments: EKG Findings:: Sinus tachycardia 107. SD 184. QRS 86. QT 408. QTC 544. Normal axis. Inferior Q waves. T-wave inversion in V2 through V6. Procedures - Joint Aspiration/Injection Consent Obtained: verbal consent Indications: R/O septic arthritis Side of Body: left Joint Aspirated: knee Skin Prep: Povidone-Iodine1% Local Anesthesia Used: Lidocaine 1% Amount of Anesthesia Used (mLs): 2 Needle Size Used: 18G Syringe Size Used: 20cc Fluid Obtained: turbid Patient Tolerated Procedure: well, no complications Complications: none Medical Decision Making - Medical Decision Making Case was discussed in detail with Dr. Astudillo who will admit his patient. He states patient was recently in the hospital and transfer to [facility]. Patient states he did have [address] at [facility]. Astudillo will admit. Patient is updated. - Lab Data Result diagrams: 08/05/20 15:47 08/05/20 15:46 Lab Results 08/05/20 08/05/20 08/05/20 Range/Units 15:46 15:46 15:46 WBC (3.8-10.6) k/uL RBC (4.30-5.90) m/uL Hgb (13.0-17.5) gm/dL Hct (39.0-53.0) % MCV (80.0-100.0) fL MCH (25.0-35.0) pg MCHC (31.0-37.0) g/dL RDW (11.5-15.5) % Plt Count (150-450) k/uL MPV Neutrophils % (Manual) % Band Neuts % (Manual) % Lymphocytes % (Manual) % Monocytes % (Manual) % Neutrophils # (Manual) (1.3-7.7) k/uL Lymphocytes # (Manual) (1.0-4.8) k/uL Monocytes # (Manual) (0-1.0) k/uL Nucleated RBCs (0-0) /100 WBC Manual Slide Review Polychromasia PT 11.6 (9.0-12.0) sec INR 1.1 (<1.2) APTT 23.3 (22.0-30.0) sec D-Dimer 3.65 H (<0.60) mg/L FEU Sodium 125 L (137-145) mmol/L Potassium 3.8 (3.5-5.1) mmol/L Chloride 95 L (98-107) mmol/L Carbon Dioxide 18 L (22-30) mmol/L Anion Gap 12 mmol/L BUN 19 (9-20) mg/dL Creatinine 1.45 H (0.66-1.25) mg/dL Est GFR (CKD-EPI)AfAm 54 (>60 ml/min/1.73 sqM) Est GFR (CKD-EPI)NonAf 46 (>60 ml/min/1.73 sqM) Glucose 327 H (74-99) mg/dL Lactic Ac Sepsis Rflx Plasma Lactic Acid Rob 2.5 H* (0.7-2.0) mmol/L Calcium 7.9 L (8.4-10.2) mg/dL Magnesium 1.1 L (1.6-2.3) mg/dL Total Bilirubin 2.8 H (0.2-1.3) mg/dL AST 81 H (17-59) U/L ALT 61 H (4-49) U/L Alkaline Phosphatase 35 L (38-126) U/L Lactate Dehydrogenase 1301 H (313-618) U/L Troponin I (0.000-0.034) ng/mL C-Reactive Protein 16.5 H (<1.0) mg/dL Total Protein 5.4 L (6.3-8.2) g/dL Albumin 3.2 L (3.5-5.0) g/dL Fluid Source Fluid Color Fluid Appearance Fluid RBC /uL Fluid Nucleated Cells /uL Fluid Polynuclear WBCs % Fluid Mononuclear WBCs % Fluid Comment Coronavirus (PCR) (Not Detectd) 08/05/20 08/05/20 08/05/20 Range/Units 15:46 15:47 16:06 WBC 7.3 (3.8-10.6) k/uL RBC 3.26 L (4.30-5.90) m/uL Hgb 10.5 L D (13.0-17.5) gm/dL Hct 30.8 L (39.0-53.0) % MCV 94.4 (80.0-100.0) fL MCH 32.2 (25.0-35.0) pg MCHC 34.1 (31.0-37.0) g/dL RDW 14.1 (11.5-15.5) % Plt Count 62 L D (150-450) k/uL MPV 9.0 Neutrophils % (Manual) 79 % Band Neuts % (Manual) 7 % Lymphocytes % (Manual) 8 % Monocytes % (Manual) 6 % Neutrophils # (Manual) 6.20 (1.3-7.7) k/uL Lymphocytes # (Manual) 0.58 L (1.0-4.8) k/uL Monocytes # (Manual) 0.44 (0-1.0) k/uL Nucleated RBCs 0 (0-0) /100 WBC Manual Slide Review Performed Polychromasia Present PT (9.0-12.0) sec INR (<1.2) APTT (22.0-30.0) sec D-Dimer (<0.60) mg/L FEU Sodium (137-145) mmol/L Potassium (3.5-5.1) mmol/L Chloride (98-107) mmol/L Carbon Dioxide (22-30) mmol/L Anion Gap mmol/L BUN (9-20) mg/dL Creatinine (0.66-1.25) mg/dL Est GFR (CKD-EPI)AfAm (>60 ml/min/1.73 sqM) Est GFR (CKD-EPI)NonAf (>60 ml/min/1.73 sqM) Glucose (74-99) mg/dL Lactic Ac Sepsis Rflx Y Plasma Lactic Acid Rob (0.7-2.0) mmol/L Calcium (8.4-10.2) mg/dL Magnesium (1.6-2.3) mg/dL Total Bilirubin (0.2-1.3) mg/dL AST (17-59) U/L ALT (4-49) U/L Alkaline Phosphatase (38-126) U/L Lactate Dehydrogenase (313-618) U/L Troponin I 1.200 H* (0.000-0.034) ng/mL C-Reactive Protein (<1.0) mg/dL Total Protein (6.3-8.2) g/dL Albumin (3.5-5.0) g/dL Fluid Source Fluid Color Fluid Appearance Fluid RBC /uL Fluid Nucleated Cells /uL Fluid Polynuclear WBCs % Fluid Mononuclear WBCs % Fluid Comment Coronavirus (PCR) (Not Detectd) 08/05/20 08/05/20 Range/Units 16:47 16:47 WBC (3.8-10.6) k/uL RBC (4.30-5.90) m/uL Hgb (13.0-17.5) gm/dL Hct (39.0-53.0) % MCV (80.0-100.0) fL MCH (25.0-35.0) pg MCHC (31.0-37.0) g/dL RDW (11.5-15.5) % Plt Count (150-450) k/uL MPV Neutrophils % (Manual) % Band Neuts % (Manual) % Lymphocytes % (Manual) % Monocytes % (Manual) % Neutrophils # (Manual) (1.3-7.7) k/uL Lymphocytes # (Manual) (1.0-4.8) k/uL Monocytes # (Manual) (0-1.0) k/uL Nucleated RBCs (0-0) /100 WBC Manual Slide Review Polychromasia PT (9.0-12.0) sec INR (<1.2) APTT (22.0-30.0) sec D-Dimer (<0.60) mg/L FEU Sodium (137-145) mmol/L Potassium (3.5-5.1) mmol/L Chloride (98-107) mmol/L Carbon Dioxide (22-30) mmol/L Anion Gap mmol/L BUN (9-20) mg/dL Creatinine (0.66-1.25) mg/dL Est GFR (CKD-EPI)AfAm (>60 ml/min/1.73 sqM) Est GFR (CKD-EPI)NonAf (>60 ml/min/1.73 sqM) Glucose (74-99) mg/dL Lactic Ac Sepsis Rflx Plasma Lactic Acid Rob (0.7-2.0) mmol/L Calcium (8.4-10.2) mg/dL Magnesium (1.6-2.3) mg/dL Total Bilirubin (0.2-1.3) mg/dL AST (17-59) U/L ALT (4-49) U/L Alkaline Phosphatase (38-126) U/L Lactate Dehydrogenase (313-618) U/L Troponin I (0.000-0.034) ng/mL C-Reactive Protein (<1.0) mg/dL Total Protein (6.3-8.2) g/dL Albumin (3.5-5.0) g/dL Fluid Source Synovial Fluid Color Yellow Fluid Appearance Cloudy Fluid RBC 3600 /uL Fluid Nucleated Cells 29484 /uL Fluid Polynuclear WBCs 85 % Fluid Mononuclear WBCs 15 % Fluid Comment Coronavirus (PCR) Not Detected (Not Detectd) - Radiology Data Radiology results: report reviewed (CT angios chest shows no large central pulmonary embolism. Motion artifact without focal airspace disease.), image reviewed (Chest x-ray shows low lung volumes.) Critical Care Time Critical Care Time: Yes Total Critical Care Time: 34 Disposition Clinical Impression: Severe sepsis, Septic arthritis, Hyponatremia, Hypomagnesemia Disposition[facility] Condition: Serious Is patient prescribed a controlled substance at d/c from ED?: No Referrals: German Astudillo MD [Primary Care Provider] - 1-2 days Decision Time: 20:02
[2020-08-05 16:02] LABS: Albumin 3.2 g/dL (3.5-5.0); Calcium 7.9 mg/dL (8.4-10.2); Magnesium 1.1 mg/dL (1.6-2.3); Potassium 3.8 mmol/L (3.5-5.1); Total Bilirubin 2.8 mg/dL (0.2-1.3); Total Protein 5.4 g/dL (6.3-8.2)
[2020-08-05 16:08] LABS: INR 1.1 (<1.2); Partial Thromboplastin Time 23.3 sec (22.0-30.0); Prothrombin Time 11.6 sec (9.0-12.0)
--- NOTE | 2020-08-05 16:10 | XR ---
EXAMINATION TYPE: XR chest 1V portable DATE OF EXAM: 08/05/2020 COMPARISON: Chest x-ray 07/27/2020 HISTORY: Suspected Covid 19 pneumonia, shortness of breath TECHNIQUE: Single frontal view of the chest is obtained. FINDINGS: There is no focal air space opacity, pleural effusion, or pneumothorax seen. The cardiac silhouette size is stable accounting for differences in technique. Patient is rotated in technique is apical lordotic. The osseous structures are intact. IMPRESSION: Suspect some improvement in aeration. Lung volumes are low and the patient is rotated.
[2020-08-05 16:12] LABS: HCT 30.8 % (39.0-53.0); MCH 32.2 pg (25.0-35.0); MCHC 34.1 g/dL (31.0-37.0); MCV 94.4 fL (80.0-100.0); RBC 3.26 m/uL (4.30-5.90); RDW 14.1 % (11.5-15.5); WBC 7.3 k/uL (3.8-10.6)
[2020-08-05 16:14] LABS: HGB 10.5 gm/dL (13.0-17.5)
[2020-08-05 16:16] LABS: C Reactive Protein 16.5 mg/dL (<1.0)
[2020-08-05] MEDS ORDERED: MAGNESIUM OXIDE 400 MG TAB PO STA (16:20)
[2020-08-05] MEDS ORDERED: SODIUM CHLORIDE 0.9% 1,000 ML IV STA (16:20)
[2020-08-05] MEDS ORDERED: SODIUM CHLORIDE 0.9% 500 ML 500 ML IV STA (16:20)
[2020-08-05 16:54] LABS: D-Dimer 3.65 mg/L FEU (<0.60)
[2020-08-05 17:37] LABS: Platelet Count 62 k/uL (150-450)
[2020-08-05 17:39] LABS: Band Neutrophils % 7 %; Lymphocytes # (M) 0.58 k/uL (1.0-4.8); Monocytes # (M) 0.44 k/uL (0-1.0); Neutrophils % (M) 79 %; Nucleated Red Blood Cells 0 /100 WBC (0-0); Total Cells Counted 100
[2020-08-05 17:40] LABS: Polychromasia Present
[2020-08-05] MEDS: MAGNESIUM SULFATE-D5W PMX 1 GM in DEXTROSE/WATER 1 100ML.BAG IVPB SCH ×2 (18:11→19:36)
[2020-08-05 18:49] LABS: Appearance,BF Cloudy; Color,BF Yellow; Nucleated Cells, Body Fluid 62000 /uL; RBC, Body Fluid 3600 /uL
[2020-08-05 18:52] LABS: Mononuclear WBC,Body Fluid 15 %; Polynuclear WBC,Body Fluid 85 %; Total Cells Counted,Body Fluid 100
[2020-08-05] MEDS ORDERED: VANCOMYCIN IV PER PHARMACY 1 EACH MISC MISCELLANE PRN (19:07)
[2020-08-05] MEDS ORDERED: PIPERACILLIN-TAZOBACTAM 3.375 GM in SODIUM CHLORIDE 0.9% 100 ML IVPB STA (19:07)
--- NOTE | 2020-08-05 19:48 | CT ---
EXAMINATION TYPE: CT angio chest DATE OF EXAM: 08/05/2020 6:45 PM COMPARISON: Same day chest radiograph HISTORY: elevated d-dimer, SOB CT DLP: 660.9 mGycm Automated exposure control for dose reduction was used. CONTRAST: CTA scan of the thorax is performed with IV Contrast, patient injected with 80cc mL of Isovue 370, pu lmonary embolism protocol. . FINDINGS: LUNGS: There is respiratory motion artifact. There is no pleural effusion or pneumothorax seen. The t racheobronchial tree is patent. MEDIASTINUM: There is satisfactory enhancement of the main and segmental pulmonary arteries. There is no CT evidence for large central pulmonary embolism. There are no greater than 1 cm hilar or medias tinal lymph nodes. Calcified coronary artery disease. No pericardial effusion. OTHER: Fatty liver. IMPRESSION: 1. NO LARGE CENTRAL PULMONARY EMBOLI. 2. MOTION ARTIFACT OF THE BILATERAL LUNGS WITHOUT FOCAL AIRSPACE OPACITY. 3. FATTY LIVER.
[2020-08-05] MEDS ORDERED: NALOXONE 0.4 MG/ML 1 ML VIAL IV PRN (20:02)
--- NOTE | 2020-08-05 20:09 | US ---
EXAMINATION TYPE: US gallbladder DATE OF EXAM: 08/05/2020 COMPARISON: Same day CTA chest CLINICAL HISTORY: Elevated liver enzymes, fever. Elevated liver enzymes. Limited history. EXAM MEASUREMENTS: Liver Length: 18.1 cm Gallbladder Wall: Gallbladder not seen at this time. CBD: Not seen Right Kidney: 11.6 x 5.8 x 6.7 cm Limited due to gas and patient body habitus. Pancreas: Obscured by overlying bowel gas. Liver: Enlarged with increased echogenicity. There is poor posterior beam penetration. Gallbladder: Not seen. Boil Off Machine Operator Cloth reports negative sonographic Henderson sign. CBD: Obscured by fatty liver. Right Kidney: Suboptimal visualization. No hydronephrosis. IMPRESSION: 1. Fatty liver. There is poor posterior beam penetration and limited visualization of the liver. 2. Common bile duct and pancreas are not visualized. 3. Patient is status post cholecystectomy based on same day CTA chest comparison.
--- NOTE | 2020-08-05 20:14 | US ---
EXAMINATION TYPE: US venous doppler duplex LE LT DATE OF EXAM: 08/05/2020 7:37 PM COMPARISON: US CLINICAL HISTORY: swelling. Swelling per order. Limited history. SIDE PERFORMED: Left TECHNIQUE: The lower extremity deep venous system is examined utilizing real time linear array sonog daina with graded compression, doppler sonography and color-flow sonography. VESSELS IMAGED: Common Femoral Vein Deep Femoral Vein Greater Saphenous Vein * Femoral Vein Popliteal Vein Small Saphenous Vein * Proximal Calf Veins (* superficial vessels) Left Leg: Limited due to edema. There is positive color Doppler and spectral Doppler flow of the le ft lower extremity. The veins demonstrate normal compressibility. No evidence of DVT in veins imaged at this time from prox calf veins to CFV/GSV. There is patency of the right CFV. IMPRESSION: No evidence of DVT of the left lower extremity.
[2020-08-05] MEDS ORDERED: VANCOMYCIN 1,750 MG in SODIUM CHLORIDE 0.9% 500 ML 500 ML IVPB SCH (22:00)
[2020-08-05] MEDS: SODIUM CHLORIDE 0.9% 1,000 ML IV SCH (23:32)
[2020-08-05] MEDS: PANTOPRAZOLE 40 MG/10 ML VIAL IV SCH (23:34)
[2020-08-05] MEDS: MAGNESIUM OXIDE 400 MG TAB PO SCH (23:34)
[2020-08-06] MEDS: ALBUTEROL HFA INHALER INHALATION SCH ×5 (00:23→21:14)
[2020-08-06] MEDS ORDERED: SODIUM CHLORIDE 0.9% 500 ML 500 ML IV ONE (00:36)
[2020-08-06 01:57] LABS: Ferritin 437.8 ng/mL (22.0-322.0)
[2020-08-06] MEDS: ACETAMINOPHEN TAB 500 MG TAB PO PRN ×2 (02:54→09:15)
[2020-08-06] MEDS ORDERED: PIPERACILLIN-TAZOBACTAM 3.375 GM in SODIUM CHLORIDE 0.9% 100 ML IVPB SCH (04:00)
[2020-08-06 04:54] LABS: Albumin 2.9 g/dL (3.5-5.0); Calcium 7.6 mg/dL (8.4-10.2); Magnesium 1.8 mg/dL (1.6-2.3); Potassium 3.5 mmol/L (3.5-5.1); Total Bilirubin 3.1 mg/dL (0.2-1.3)
[2020-08-06 05:31] LABS: Total Protein, Body Fluid 3330 mg/dL
[2020-08-06 05:58] LABS: HCT 29.4 % (39.0-53.0); HGB 10.6 gm/dL (13.0-17.5); MCH 33.8 pg (25.0-35.0); MCHC 35.8 g/dL (31.0-37.0); MCV 94.2 fL (80.0-100.0); Mean Platelet Volume 9.9; RBC 3.13 m/uL (4.30-5.90); RDW 13.5 % (11.5-15.5); WBC 7.7 k/uL (3.8-10.6)
[2020-08-06 06:02] LABS: Glucose, BF Source Body Fluid; Glucose, Body Fluid 104 mg/dL
[2020-08-06 06:16] LABS: Glucose,Whole Blood 304 mg/dL (75-99)
[2020-08-06] MEDS: SODIUM CHLORIDE 0.9% 1,000 ML IV SCH (06:23)
[2020-08-06] MEDS: HYDROmorphone 1 MG/ML 1 ML SYRINGE IVP PRN (06:26)
[2020-08-06] MEDS: INSULIN ASPART (NovoLOG) 100 UNIT/ML VIAL SQ SCH ×4 (06:26→21:48)
[2020-08-06 06:40] LABS: Platelet Count 62 k/uL (150-450)
[2020-08-06] MEDS: PANTOPRAZOLE 40 MG/10 ML VIAL IV SCH (09:14)
[2020-08-06] MEDS: ASPIRIN 81 MG PO SCH (09:14)
[2020-08-06] MEDS: ISOSORBIDE MONONITRATE ER 60 MG TAB.ER.24H PO SCH (09:14)
[2020-08-06] MEDS: atenoloL 50 MG TAB PO SCH (09:15)
[2020-08-06] MEDS: MAGNESIUM OXIDE 400 MG TAB PO SCH ×2 (09:15→21:49)
[2020-08-06] MEDS: ATORVASTATIN 80 MG TAB PO SCH (09:15)
[2020-08-06] MEDS: LINAGLIPTIN 5 MG TABLET PO SCH (09:15)
[2020-08-06] MEDS: CLOPIDOGREL 75 MG TAB PO SCH ×2 (09:21→09:55)
--- NOTE | 2020-08-06 11:15 | P.HPIM ---
History of Present Illness H&P Date: 08/05/20 Chief Complaint: Left knee septic arthritis HISTORY OF PRESENT ILLNESS: his is a 75-year-old male one of my patient with previous medical history significant for coronary artery disease status post percutaneous coronary intervention and stent placement last one was in 12/13/2019 in the mid RCA at that time he was found to have a totally occluded obtuse marginal one of the LCx, with collaterals from the PDA, hypertension and hypertensive cardio vascular disease, hyperlipidemia, diabetes mellitus type 2, diabetic polyneuropathy, 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 as well as radio frequency ablation, prostate cancer status post radiation the rapy, patient took himself off the Plavix due to significant bruising and bleeding against his housing case manager recommendation and he was taken a baby aspirin alone, patient presented to the emergency department at [facility] on 07/28/2020 with what appears to be an inferior wall ST elevation myocardial infarction patient was taken to the environmental laboratory technician and an attempted angioplasty of a computed occluded RCA had failed and the patient was transferred to [facility] for complex angioplasty of the occluded RCA, apparently patient did have 2 stents placement in the RCA and he was discharged from [facility] and patient has been getting more at all with poor appetite and his having some issues with his left knee not able to walk on the knee associated with knee buckling and locking patient had lost his appetite, he ended up coming to the emergency department at [facility] today after his daughter contacted by staff and they directed her to go to the emergency department for evaluation of possible septic knee, patient was seen and evaluated in the ER he had temperature and his white count were normal, her d- dimer was elevated his troponin was slightly elevated as well, patient was started on IV antibiotic in the form of vancomycin as well as Zosyn, blood cultures will be obtained, aspiration of the left knee showed cloudy fluid the result of which still pending at the time of dictation orthopedic surgery consultation was obtained from Dr. Choi, patient will be admitted to hospital for further evaluation, his platelet count were down to 62,000 and his lactic acid was elevated suggestive of sepsis. REVIEW OF SYSTEMS: Constitutional: Positive for fever, positive for chills, no night sweats, fatigue , lethargy and sleeping and weight loss. HEENT: No headache. No blurred vision or double vision, no loss of vision. No loss of Hearing, no ringing in the ears, no dizziness. No nasal drainage or congestion. No epistaxis. No sore throat. Respiratory: No shortness of breath, no cough, no sputum production. No wheezing. Reports dyspnea with activity. Cardiovascular: No chest pain, no lower extremity edema. No palpitations. No paroxysmal nocturnal dyspnea. No orthopnea. No lightheadedness or dizziness. No syncopal episodes. Gastrointestinal: Reports no abdominal pain. No nausea, vomiting. No diarrhea. No constipation. No bloody or tarry stools reports loss of appetite. Genitourinary: No dysuria, increased frequency, urgency. No urinary retention. Musculoskeletal: Positive for myalgias. positive for muscle weakness, Positive for gait dysfunction, no frequent falls, positive for left knee pain, locking, positive for low back pain . Integumentary: No wounds, no lesions. No rash or pruritus. brpositive for bru ising. No change in hair or nails. Neurologic: No aphasia. No facial droop. No change in mentation. No head injury. No headache. No paralysis. No paresthesia. Psychiatric: No depression. No anxiety. No mood swings. Endocrine: No abnormal blood sugars. No weight change. PAST MEDICAL HISTORY: 1. CAD post-PCI of the RCA. 2. Hypertension and hypertensive cardiovascular disease. 3. Hyperlipidemia. 4. Diabetes mellitus type 2 5. Diabetic polyneuropathy. 6. PAD. 7. Prostate cancer. 8. Erectile dysfunction. 9. Spondylosis of the lumbar spine. 10. Osteoarthritis. 11. Spondylosis of the cervical spine. 12. Constipation. 13. PAST SURGICAL HISTORY: 1. Left knee arthroscopic surgery x2. 2. Left total knee arthroplasty. 3. Right total hip replacement with revision due to infection 4. Prostate biopsy. 5. Bilateral cataract surgery. 6. Left heart catheterization in August 2017 with a stent placement of the RCA. 7. Left heart catheterization 07/28/2020 with attempted PCI of the RCA. 8. Left heart catheterization 07/30/2020 with 2 stents placement of the RCA 9. Adenoidectomy with tonsillectomy. 10. Colonoscopy. 11. Epidural injection of the lumbar spine with radiofrequency ablation. SOCIAL HISTORY: Patient is a smoker a pack every day smoked for many years and quit many years ago, he denies any alcohol ingestion, patient used to work for the [employer]. FAMILY HISTORY: father at age of 49 from myocardial infarction, mother at age of 81 from uterine cancer with metastatic disease, patient has one brother with chronic tobacco use and dependence, patient has no sisters, patient has one son no major medical problems, he had 2 daughters one of them from dishing muscular dystrophy the other one is alive and lives in [place]. PHYSICAL EXAMINATION: General: This is 75-year-old male who appears to be moderately ill laying down in bed in no distress. HEENT: Head is atraumatic, normocephalic, pupils were equal round reactive to light and recommendation, extraocular muscle movement were intact, sclera nonicteric, conjunctivae were pale, mucous membranes of the mouth are somewhat dry. Neck: Supple, no JVP, normal carotid upstroke bilaterally, no lymphadenopathy. Chest: Decreased breath sounds at the bases, few rhonchi, no extremity wheezes, no chest wall tenderness, no intercostal retractions. Heart: First heart sound is normal, second heart sound is normal there is systolic ejection murmur 2/6 left sternal border. Abdomen: Soft, nontender, nondistended, positive bowel sounds, no hepatosplenomegaly Extremities: There is no edema no calf tenderness DP + 1 bilaterally, left knee mildly tender to palpation with slightly swollen. Neurologic examination: Patient is awake alert and oriented X3, cranial nerves II-12 appear grossly intact, muscle power were 5 out of 5 in upper extremities and 5 out of 5 in bilateral lower extremities, deep tendon reflexes normal bilaterally. ASSESSMENT AND PLAN: 1. Septic arthritis of the left knee. Obtain fluid Gram stain and culture, cell count, crystals, so the patient on IV antibiotic in the form of vancomycin pharmacy to dose its peak and trough, Zosyn 3.375 g IV piggyback every 6 hours, blood culture, orthopedic surgery consultation Dr. Choi, she may need to go to the OR for washout, infectious disease consultation Dr. Strickland. 2. Lactic acidosis due to sepsis. Continue IV fluid resuscitation the form of normal saline, repeat lactic acid 6 hours. 3. Thrombocytopenia area and likely related to sepsis hold heparin, continue to monitor the patient very closely, repeat the CBC in the next 24 hours. 4. Recent left heart catheterization with PCI of the RCA on 07/30/2020 Continue patient on aspirin 81 g once every day, Plavix 75 mg orally once every day, atenolol 50 mg once every day, atorvastatin 80 mg once every day, Imdur 60 g orally once every day. 5. Slightly elevated troponin on the down slope from the last hospitalization. Likely related to a prior intervention. 6. Recent inferior wall ST elevation NC. Continue treatment as in paragraph #4. 7. Hypertension and hypertensive cardiovascular disease. Continue the patient on Diovan 320/12.5 mg once every day, continue atenolol 50 mg orally once every day, continue to monitor the patient blood pressure very closely. 8. Hyperlipidemia. Continue patient on atorvastatin 80 mg orally once every day. 9. Diabetes mellitus type 2. Start the patient on sliding scale insulin along with Lantus 22 units at bedtime, continue Tradjenta 5 mg orally once every day. 10. History of prostate cance status post rotation. Stable at this time. 11. 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 Continue current pain management. 12. DVT prophylaxis. Bilateral knee-high ADAIR hose. Avoid heparin for now. 13. GI prophylaxis. Protonix 40 mg orally once every day. r 14. Admit to inpatient. Estimate a length of stay 2 midnights. 15. Patient is full code. Past Medical History Past Medical History: Atrial Fibrillation, Coronary Artery Disease (CAD), Cancer, Chest Pain / Angina, Diabetes Mellitus, GERD/Reflux, Hyperlipidemia, Hypertension, Osteoarthritis (OA), Prostate Disorder Additional Past Medical History / Comment(s): 5 Herniated discs in neck causing headaches & numbness in arm and right lower back and pain and right leg pain. Hx 4 fx ribs, current Prostate Cancer- last radiation tx Mar 25 had total of 44 tx. occ constipation, Last Myocardial Infarction Date:: UNKOWN History of Any Multi-Drug Resistant Organisms: None Reported Past Surgical History: Adenoidectomy, Heart Catheterization, Heart Catheterizati on With Stent, Joint Replacement, Orthopedic Surgery, Tonsillectomy Additional Past Surgical History / Comment(s): PROSTATE BX., LT. KNEE ARTHROSCOPY X 2, CERVICAL FUSIONS, COLONOSCOPY, ÁNGEL. CATARTACTS.Pain Procedures , rt radio frequency procedures. , total 3 heart stents, hemorrhoidectomy,heart cath August 2017-lt knee replacement. Stent replacement \2020 Past Anesthesia/Blood Transfusion Reactions: No Reported Reaction Additional Past Anesthesia/Blood Transfusion Reaction / Comment(s): doesn't like enclosed tight spaces Date of Last Stent Placement:: 04/24/17 Past Psychological History: No Psychological Hx Reported Smoking Status: Former smoker Past Alcohol Use History: None Reported Past Drug Use History: None Reported - Past Family History Father Additional Family Medical History / Comment(s): Father at age 49 from coronary artery disease. Brother(s) Additional Family Medical History / Comment(s): Patient has one brother with history of smoking and no other major medical problems. Patient does not have any sisters. Daughter(s) Additional Family Medical History / Comment(s): He has one daughter alive in [place] with no major medical problems. Patient has one daughter with history of muscular dystrophy and of pneumonia. Son(s) Family Medical History: No Reported History Additional Family Medical History / Comment(s): Patient has one son with no major medical problems. Mother Family Medical History: Cancer Additional Family Medical History / Comment(s): Mother at age 81 from uterine cancer with metastatic disease. Medications and Allergies Home Medications Medication Instructions Recorded Confirmed Type Atorvastatin Calcium [Lipitor] 80 mg PO DAILY@0900 11/01/14 08/05/20 History Valsartan/Hydrochlorothiazide 1 tab PO DAILY@1800 12/13/19 08/05/20 History [Valsartan-Hctz 320-12.5 mg Tab] Aspirin [[place] Aspirin EC] 81 mg PO DAILY@0900 08/05/20 08/05/20 History Atenolol [Tenormin] 50 mg PO DAILY@0900 08/05/20 08/05/20 History Isosorbide Mononitrate ER [Imdur] 60 mg PO DAILY@0900 08/05/20 08/05/20 History Allergies Allergy/AdvReac Type Severity Reaction Status Date / Time No Known Allergies Allergy Verified 08/05/20 17:38 Physical Exam Vitals: Vital Signs Temp Pulse Resp BP Pulse Ox 08/05/20 18:19 98.3 F 95 18 106/61 08/05/20 16:57 97 18 100/66 94 L 08/05/20 14:44 101.9 F H 106 H 18 121/61 94 L Intake and Output 08/05/20 08/05/20 08/05/20 06:59 14:59 22:59 Other: Weight 113.398 kg Results CBC & Chem 7: 08/05/20 15:47 08/05/20 15:46 Labs: Abnormal Lab Results - Last 24 Hours (Table) 08/05/20 08/05/20 08/05/20 Range/Units 15:46 15:46 15:46 RBC (4.30-5.90) m/uL Hgb (13.0-17.5) gm/dL Hct (39.0-53.0) % Plt Count (150-450) k/uL Lymphocytes # (Manual) (1.0-4.8) k/uL D-Dimer 3.65 H (<0.60) mg/L FEU Sodium 125 L (137-145) mmol/L Chloride 95 L (98-107) mmol/L Carbon Dioxide 18 L (22-30) mmol/L Creatinine 1.45 H (0.66-1.25) mg/dL Glucose 327 H (74-99) mg/dL Plasma Lactic Acid Rob 2.5 H* (0.7-2.0) mmol/L Calcium 7.9 L (8.4-10.2) mg/dL Magnesium 1.1 L (1.6-2.3) mg/dL Total Bilirubin 2.8 H (0.2-1.3) mg/dL AST 81 H (17-59) U/L ALT 61 H (4-49) U/L Alkaline Phosphatase 35 L (38-126) U/L Lactate Dehydrogenase 1301 H (313-618) U/L Troponin I (0.000-0.034) ng/mL C-Reactive Protein 16.5 H (<1.0) mg/dL Total Protein 5.4 L (6.3-8.2) g/dL Albumin 3.2 L (3.5-5.0) g/dL 08/05/20 08/05/20 Range/Units 15:46 15:47 RBC 3.26 L (4.30-5.90) m/uL Hgb 10.5 L D (13.0-17.5) gm/dL Hct 30.8 L (39.0-53.0) % Plt Count 62 L D (150-450) k/uL Lymphocytes # (Manual) 0.58 L (1.0-4.8) k/uL D-Dimer (<0.60) mg/L FEU Sodium (137-145) mmol/L Chloride (98-107) mmol/L Carbon Dioxide (22-30) mmol/L Creatinine (0.66-1.25) mg/dL Glucose (74-99) mg/dL Plasma Lactic Acid Rob (0.7-2.0) mmol/L Calcium (8.4-10.2) mg/dL Magnesium (1.6-2.3) mg/dL Total Bilirubin (0.2-1.3) mg/dL AST (17-59) U/L ALT (4-49) U/L Alkaline Phosphatase (38-126) U/L Lactate Dehydrogenase (313-618) U/L Troponin I 1.200 H* (0.000-0.034) ng/mL C-Reactive Protein (<1.0) mg/dL Total Protein (6.3-8.2) g/dL Albumin (3.5-5.0) g/dL
--- NOTE | 2020-08-06 11:25 | P.PN ---
Subjective Progress Note Date: 08/06/20 HISTORY OF PRESENT ILLNESS: his is a 75-year-old male one of my patient with previous medical history si gnificant for coronary artery disease status post percutaneous coronary intervention and stent placement last one was in 12/13/2019 in the mid RCA at that time he was found to have a totally occluded obtuse marginal one of the LCx, with collaterals from the PDA, hypertension and hypertensive cardio vascular disease, hyperlipidemia, diabetes mellitus type 2, diabetic polyneuropathy, 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 as well as radio frequency ablation, prostate cancer status post radiation therapy, patient took himself off the Plavix due to significant bruising and 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 and he was taken a baby aspirin alone, patient presented to the emergency department at [facility] on 07/28/2020 with what appears to be an inferior wall ST elevation myocardial infarction patient was taken to the label maker and an attempted angioplasty of a computed occluded RCA had failed and the patient was transferred to [facility] for complex angioplasty of the occluded RCA, apparently patient did have 2 stents placement in the RCA and he was discharged from [facility] and patient has been getting more at all with poor appetite and his having some issues with his left knee not able to walk on the knee ass ociated with knee buckling and locking patient had lost his appetite, he ended up coming to the emergency department at [facility] today after his daughter contacted by staff and they directed her to go to the emergency department for evaluation of possible septic knee, patient was seen and evaluated in the ER he had temperature and his white count were normal, her d- dimer was elevated his troponin was slightly elevated as well, patient was started on IV antibiotic in the form of vancomycin as well as Zosyn, blood cultures will be obtained, aspiration of the left knee showed cloudy fluid the result of which still pending at the time of dictation orthopedic surgery consultation was obtained from Dr. Choi, patient will be admitted to hospital for further evaluation, his platelet count were down to 62,000 and his lactic acid was elevated suggestive of sepsis. 08/06: Patient is seen today in follow-up. COVID-[address] angios the chest showed no large central pulmonary emboli. Motion artifact of the bilateral lungs without focal airspace opacities. Fatty liver. Venous ultrasound was negative for DVT of the left lower extremity. Patient's home medication list needs to be updated. Will add and Lantus 18 units at bedtime, Plavix 75 mg daily, Januvia. Patient's nurse was updated that the patient's medication list needs to be confirmed. He has been seen by Dr. Choi and plan for I&D of the left knee today. Patient is currently on vancomycin IV and Zosyn. Patient has been afebrile, heart rate 104, respiratory rate 26, blood pressure 125/65, pulse ox 96% on room air. Repeat lactic acid is 8.3. Repeat troponin 3.790. WBC 7.7, hemoglobin 10.6. Sodium 128, potassium 3.5, chloride 98, CO2 18, BUN 25 and creatinine 1.62. Blood sugar 317. Calcium 7.6. Magnesium 1.8. Total bilirubin 3.1, AST 85, ALT 55, alkaline phosphatase 37. Fluid studies reveal RBC 3600, nucleated cells 62,000, polynuclear WBCs 85, and mononuclear WBCs 15, glucose 104, total protein 3330. Crystals pending. Consult also in place with cardiology and Dr. Strickland. REVIEW OF SYSTEMS: Constitutional: Positive for fever, positive for chills, no night sweats, fati roger , lethargy and sleeping and weight loss. HEENT: No headache. No blurred vision or double vision, no loss of vision. No loss of Hearing, no ringing in the ears, no dizziness. No nasal drainage or congestion. No epistaxis. No sore throat. Respiratory: No shortness of breath, no cough, no sputum production. No wheezing. Reports dyspnea with activity. Cardiovascular: No chest pain, no lower extremity edema. No palpitations. No paroxysmal nocturnal dyspnea. No orthopnea. No lightheadedness or dizziness. No syncopal episodes. Gastrointestinal: Reports no abdominal pain. No nausea, vomiting. No diarrhea. No constipation. No bloody or tarry stools reports loss of appetite. Genitourinary: No dysuria, increased frequency, urgency. No urinary retention. Musculoskeletal: Positive for myalgias. positive for muscle weakness, Positive for gait dysfunction, no frequent falls, positive for left knee pain, locking, positive for low back pain . Integumentary: No wounds, no lesions. No rash or pruritus. brpositive for bruising. No change in hair or nails. Neurologic: No aphasia. No facial droop. No change in mentation. No head injury. No headache. No paralysis. No paresthesia. Psychiatric: No depression. No anxiety. No mood swings. Endocrine: No abnormal blood sugars. No weight change. PHYSICAL EXAMINATION: General: This is 75-year-old male who appears to be moderately ill laying down in bed in no distress. HEENT: Head is atraumatic, normocephalic, pupils were equal round reactive to light and recommendation, extraocular muscle movement were intact, sclera nonicteric, conjunctivae were pale, mucous membranes of the mouth are somewhat dry. Neck: Supple, no JVP, normal carotid upstroke bilaterally, no lymphadenopathy. Chest: Decreased breath sounds at the bases, few rhonchi, no extremity wheezes, no chest wall tenderness, no intercostal retractions. Heart: First heart sound is normal, second heart sound is normal there is systolic ejection murmur 2/6 left sternal border. Abdomen: Soft, nontender, nondistended, positive bowel sounds, no hepa tosplenomegaly Extremities: There is no edema no calf tenderness DP + 1 bilaterally, left knee mildly tender to palpation with slightly swollen. Neurologic examination: Patient is awake alert and oriented X3, cranial nerves II-12 appear grossly intact, muscle power were 5 out of 5 in upper extremities and 5 out of 5 in bilateral lower extremities, deep tendon reflexes normal bilaterally. ASSESSMENT AND PLAN: 1. Septic arthritis of the left knee. Obtain fluid Gram stain and culture, crystals, continue IV antibiotic in the form of vancomycin pharmacy to dose its peak and trough, Zosyn 3.375 g IV piggyback every 6 hours, blood culture, orthopedic surgery consultation Dr. Choi, patient scheduled for I&D, infectious disease consultation Dr. Strickland. Cardiology consult has been added by anesthesiology for clearance. 2. Lactic acidosis due to sepsis. Continue IV fluid resuscitation the form of normal saline, repeat lactic acid 6 hours. 3. Thrombocytopenia area and likely related to sepsis hold heparin, continue to monitor the patient very closely, repeat the CBC in the next 24 hours. 4. Recent left heart catheterization with PCI of the RCA on 07/30/2020 Continue patient on aspirin 81 g once every day, Plavix 75 mg orally once every day, atenolol 50 mg once every day, atorvastatin 80 mg once every day, Imdur 60 g orally once every day. 5. Slightly elevated troponin on the down slope from the last hospitalization. Likely related to a prior intervention. 6. Recent inferior wall ST elevation MA. Continue treatment as in paragraph #4. 7. Hypertension and hypertensive cardiovascular disease. Continue the patient on Diovan 320/12.5 mg once every day, continue atenolol 50 mg orally once every day, continue to monitor the patient blood pressure very closely. 8. Hyperlipidemia. Continue patient on atorvastatin 80 mg orally once every day. 9. Diabetes mellitus type 2. Start the patient on sliding scale insulin along with Lantus 22 units at bedtime, continue Tradjenta 5 mg orally once every day. 10. History of prostate cance status post rotation. Stable at this time. 11. 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 Continue current pain management. 12. DVT prophylaxis. Bilateral knee-high ADAIR hose. Avoid heparin for now. 13. GI prophylaxis. Protonix 40 mg orally once every day. r 14. Patient is full code. DISCHARGE PLAN Home Impression and plan of care have been directed as dictated by the signing physician. Padma Monsalve nurse practitioner acting as scribe for signing physician. Objective - Vital Signs Vital signs: Vital Signs Temp 98.6 F 08/06/20 06:48 Pulse 98 08/06/20 06:48 Resp 18 08/06/20 06:48 BP 117/59 08/06/20 06:48 Pulse Ox 94 L 08/06/20 06:48 Intake & Output 08/05/20 08/06/20 08/06/20 18:59 06:59 18:59 Weight 113.398 kg 113.398 kg - Labs CBC & Chem 7: 08/06/20 03:48 08/06/20 03:48 Labs: Abnormal Lab Results - Last 24 Hours (Table) 08/05/20 08/05/20 08/05/20 Range/Units 15:46 15:46 15:46 RBC (4.30-5.90) m/uL Hgb (13.0-17.5) gm/dL Hct (39.0-53.0) % Plt Count (150-450) k/uL Lymphocytes # (Manual) (1.0-4.8) k/uL D-Dimer 3.65 H (<0.60) mg/L FEU Sodium 125 L (137-145) mmol/L Chloride 95 L (98-107) mmol/L Carbon Dioxide 18 L (22-30) mmol/L BUN (9-20) mg/dL Creatinine 1.45 H (0.66-1.25) mg/dL Glucose 327 H (74-99) mg/dL POC Glucose (mg/dL) (75-99) mg/dL Plasma Lactic Acid Rob 2.5 H* (0.7-2.0) mmol/L Calcium 7.9 L (8.4-10.2) mg/dL Magnesium 1.1 L (1.6-2.3) mg/dL Ferritin 437.8 H (22.0-322.0) ng/mL Total Bilirubin 2.8 H (0.2-1.3) mg/dL AST 81 H (17-59) U/L ALT 61 H (4-49) U/L Alkaline Phosphatase 35 L (38-126) U/L Lactate Dehydrogenase 1301 H (313-618) U/L Troponin I (0.000-0.034) ng/mL C-Reactive Protein 16.5 H (<1.0) mg/dL Total Protein 5.4 L (6.3-8.2) g/dL Albumin 3.2 L (3.5-5.0) g/dL Procalcitonin (0.02-0.09) ng/mL 08/05/20 08/05/20 08/05/20 Range/Units 15:46 15:46 15:47 RBC 3.26 L (4.30-5.90) m/uL Hgb 10.5 L D (13.0-17.5) gm/dL Hct 30.8 L (39.0-53.0) % Plt Count 62 L D (150-450) k/uL Lymphocytes # (Manual) 0.58 L (1.0-4.8) k/uL D-Dimer (<0.60) mg/L FEU Sodium (137-145) mmol/L Chloride (98-107) mmol/L Carbon Dioxide (22-30) mmol/L BUN (9-20) mg/dL Creatinine (0.66-1.25) mg/dL Glucose (74-99) mg/dL POC Glucose (mg/dL) (75-99) mg/dL Plasma Lactic Acid Rob (0.7-2.0) mmol/L Calcium (8.4-10.2) mg/dL Magnesium (1.6-2.3) mg/dL Ferritin (22.0-322.0) ng/mL Total Bilirubin (0.2-1.3) mg/dL AST (17-59) U/L ALT (4-49) U/L Alkaline Phosphatase (38-126) U/L Lactate Dehydrogenase (313-618) U/L Troponin I 1.200 H* (0.000-0.034) ng/mL C-Reactive Protein (<1.0) mg/dL Total Protein (6.3-8.2) g/dL Albumin (3.5-5.0) g/dL Procalcitonin 24.96 H (0.02-0.09) ng/mL 08/05/20 08/05/20 08/06/20 Range/Units 20:29 23:41 03:48 RBC 3.13 L (4.30-5.90) m/uL Hgb 10.6 L (13.0-17.5) gm/dL Hct 29.4 L (39.0-53.0) % Plt Count (150-450) k/uL Lymphocytes # (Manual) (1.0-4.8) k/uL D-Dimer (<0.60) mg/L FEU Sodium (137-145) mmol/L Chloride (98-107) mmol/L Carbon Dioxide (22-30) mmol/L BUN (9-20) mg/dL Creatinine (0.66-1.25) mg/dL Glucose (74-99) mg/dL POC Glucose (mg/dL) (75-99) mg/dL Plasma Lactic Acid Rob 4.5 H* 7.3 H* (0.7-2.0) mmol/L Calcium (8.4-10.2) mg/dL Magnesium (1.6-2.3) mg/dL Ferritin (22.0-322.0) ng/mL Total Bilirubin (0.2-1.3) mg/dL AST (17-59) U/L ALT (4-49) U/L Alkaline Phosphatase (38-126) U/L Lactate Dehydrogenase (313-618) U/L Troponin I (0.000-0.034) ng/mL C-Reactive Protein (<1.0) mg/dL Total Protein (6.3-8.2) g/dL Albumin (3.5-5.0) g/dL Procalcitonin (0.02-0.09) ng/mL 08/06/20 08/06/20 08/06/20 Range/Units 03:48 03:48 06:13 RBC (4.30-5.90) m/uL Hgb (13.0-17.5) gm/dL Hct (39.0-53.0) % Plt Count (150-450) k/uL Lymphocytes # (Manual) (1.0-4.8) k/uL D-Dimer (<0.60) mg/L FEU Sodium 128 L (137-145) mmol/L Chloride (98-107) mmol/L Carbon Dioxide 18 L (22-30) mmol/L BUN 25 H (9-20) mg/dL Creatinine 1.62 H (0.66-1.25) mg/dL Glucose 317 H (74-99) mg/dL POC Glucose (mg/dL) 304 H (75-99) mg/dL Plasma Lactic Acid Rob 4.1 H* (0.7-2.0) mmol/L Calcium 7.6 L (8.4-10.2) mg/dL Magnesium (1.6-2.3) mg/dL Ferritin (22.0-322.0) ng/mL Total Bilirubin 3.1 H (0.2-1.3) mg/dL AST 85 H (17-59) U/L ALT 55 H (4-49) U/L Alkaline Phosphatase 37 L (38-126) U/L Lactate Dehydrogenase (313-618) U/L Troponin I (0.000-0.034) ng/mL C-Reactive Protein (<1.0) mg/dL Total Protein 5.0 L (6.3-8.2) g/dL Albumin 2.9 L (3.5-5.0) g/dL Procalcitonin (0.02-0.09) ng/mL Microbiology - Last 24 Hours (Table) 08/05/20 15:25 Blood Culture - Final Blood 08/05/20 15:46 Blood Culture - Final Blood 08/05/20 16:47 Gram Stain - Preliminary Knee - Left Body Fluid Culture - Preliminary
[2020-08-06 11:44] LABS: Glucose,Whole Blood 248 mg/dL (75-99)
--- NOTE | 2020-08-06 12:15 | P.CNOR ---
History of Present Illness - HPI Consult date: 08/06/20 History of present illness: This is a 75-year-old male who is admitted for sepsis. Orthopedics is consulted due to suspected infection of the left knee. Patient is seen and evaluated at bedside today with Dr. Raji Choi. The left knee was aspirated emergency room revealing elevated white cell count. Patient has a history of left total knee arthroplasty in 2018. Patient states that he started to notice soreness in the left knee 2 weeks ago around the time he was hospitalized for myocardial infarction and cardiac stenting at [facility]. Patient reports soreness in the left knee and also his neck today. Patient's past medical history is significant for atrial fibrillation, coronary artery disease, chest pain, diabetes mellitus, GERD, hyperlipidemia, hypertension, osteoarthritis, and prostate cancer. Patient denies any abdominal pain, shortness of breath, chest pain, numbness, weakness or tingling. Review of Systems See HPI. Past Medical History Past Medical History: Atrial Fibrillation, Coronary Artery Disease (CAD), Cancer, Chest Pain / Angina, Diabetes Mellitus, GERD/Reflux, Hyperlipidemia, Hypertension, Osteoarthritis (OA), Prostate Disorder Additional Past Medical History / Comment(s): 5 Herniated discs in neck causing headaches & numbness in arm and right lower back and pain and right leg pain. Hx 4 fx ribs, current Prostate Cancer- last radiation tx Mar 25-2016 had total of 44 tx. occ constipation, Last Myocardial Infarction Date:: UNKOWN History of Any Multi-Drug Resistant Organisms: None Reported Past Surgical History: Adenoidectomy, Heart Catheterization, Heart Catheterization With Stent, Joint Replacement, Orthopedic Surgery, Tonsillectomy Additional Past Surgical History / Comment(s): PROSTATE BX., LT. KNEE ARTHROSCOPY X 2, CERVICAL FUSIONS, COLONOSCOPY, ÁNGEL. CATARTACTS.Pain Procedures , rt radio frequency procedures. , total 3 heart stents, hemorrhoidectomy,heart cath August 2017-lt knee replacement. Stent replacement Past Anesthesia/Blood Transfusion Reactions: No Reported Reaction Additional Past Anesthesia/Blood Transfusion Reaction / Comm: doesn't like enclosed tight spaces Date of Last Stent Placement:: 04/24/17 Past Psychological History: No Psychological Hx Reported Smoking Status: Former smoker Past Alcohol Use History: None Reported Past Drug Use History: None Reported - Past Family History Father Additional Family Medical History / Comment(s): Father at age 49 from coronary artery disease. Brother(s) Additional Family Medical History / Comment(s): Patient has one brother with history of smoking and no other major medical problems. Patient does not have any sisters. Daughter(s) Additional Family Medical History / Comment(s): He has one daughter alive in [place] with no major medical problems. Patient has one daughter with history of muscular dystrophy and of pneumonia. Son(s) Family Medical History: No Reported History Additional Family Medical History / Comment(s): Patient has one son with no major medical problems. Mother Family Medical History: Cancer Additional Family Medical History / Comment(s): Mother at age 81 from uterine cancer with metastatic disease. Medications and Allergies Home Medications Medication Instructions Recorded Confirmed Type Atorvastatin Calcium [Lipitor] 80 mg PO DAILY@0900 11/01/14 08/05/20 History Valsartan/Hydrochlorothiazide 1 tab PO DAILY@1800 12/13/19 08/05/20 History [Valsartan-Hctz 320-12.5 mg Tab] Aspirin [Satanta Aspirin EC] 81 mg PO DAILY@0908/05/20 08/05/20 History Atenolol [Tenormin] 50 mg PO DAILY@0908/05/20 08/05/20 History Isosorbide Mononitrate ER [Imdur] 60 mg PO DAILY@0908/05/20 08/05/20 History Allergies Allergy/AdvReac Type Severity Reaction Status Date / Time No Known Allergies Allergy Verified 08/05/20 17:38 Physical Examination On exam patient is resting in bed in no acute distress. Patient is alert and oriented 3. There is mild swelling of the left lower extremity and knee. There is tenderness to palpation over the left knee. Patient has pain with any attempted range of motion of the left knee. There is no erythema and skin is intact. Calf is soft and nontender to palpation. Sensation intact. Neurovascular status and circulatory status are intact. Results Venous Doppler of the left lower extremity is negative for DVT. - Labs Labs: Abnormal Lab Results - Last 24 Hours (Table) 08/05/20 08/05/20 08/05/20 Range/Units 15:46 15:46 15:46 RBC (4.30-5.90) m/uL Hgb (13.0-17.5) gm/dL Hct (39.0-53.0) % Plt Count (150-450) k/uL Lymphocytes # (Manual) (1.0-4.8) k/uL D-Dimer 3.65 H (<0.60) mg/L FEU Sodium 125 L (137-145) mmol/L Chloride 95 L (98-107) mmol/L Carbon Dioxide 18 L (22-30) mmol/L BUN (9-20) mg/dL Creatinine 1.45 H (0.66-1.25) mg/dL Glucose 327 H (74-99) mg/dL POC Glucose (mg/dL) (75-99) mg/dL Plasma Lactic Acid Rob 2.5 H* (0.7-2.0) mmol/L Calcium 7.9 L (8.4-10.2) mg/dL Magnesium 1.1 L (1.6-2.3) mg/dL Ferritin 437.8 H (22.0-322.0) ng/mL Total Bilirubin 2.8 H (0.2-1.3) mg/dL AST 81 H (17-59) U/L ALT 61 H (4-49) U/L Alkaline Phosphatase 35 L (38-126) U/L Lactate Dehydrogenase 1301 H (313-618) U/L Troponin I (0.000-0.034) ng/mL C-Reactive Protein 16.5 H (<1.0) mg/dL Total Protein 5.4 L (6.3-8.2) g/dL Albumin 3.2 L (3.5-5.0) g/dL Procalcitonin (0.02-0.09) ng/mL 08/05/20 08/05/20 08/05/20 Range/Units 15:46 15:46 15:47 RBC 3.26 L (4.30-5.90) m/uL Hgb 10.5 L D (13.0-17.5) gm/dL Hct 30.8 L (39.0-53.0) % Plt Count 62 L D (150-450) k/uL Lymphocytes # (Manual) 0.58 L (1.0-4.8) k/uL D-Dimer (<0.60) mg/L FEU Sodium (137-145) mmol/L Chloride (98-107) mmol/L Carbon Dioxide (22-30) mmol/L BUN (9-20) mg/dL Creatinine (0.66-1.25) mg/dL Glucose (74-99) mg/dL POC Glucose (mg/dL) (75-99) mg/dL Plasma Lactic Acid Rob (0.7-2.0) mmol/L Calcium (8.4-10.2) mg/dL Magnesium (1.6-2.3) mg/dL Ferritin (22.0-322.0) ng/mL Total Bilirubin (0.2-1.3) mg/dL AST (17-59) U/L ALT (4-49) U/L Alkaline Phosphatase (38-126) U/L Lactate Dehydrogenase (313-618) U/L Troponin I 1.200 H* (0.000-0.034) ng/mL C-Reactive Protein (<1.0) mg/dL Total Protein (6.3-8.2) g/dL Albumin (3.5-5.0) g/dL Procalcitonin 24.96 H (0.02-0.09) ng/mL 08/05/20 08/05/20 08/06/20 Range/Units 20:29 23:41 03:48 RBC 3.13 L (4.30-5.90) m/uL Hgb 10.6 L (13.0-17.5) gm/dL Hct 29.4 L (39.0-53.0) % Plt Count (150-450) k/uL Lymphocytes # (Manual) (1.0-4.8) k/uL D-Dimer (<0.60) mg/L FEU Sodium (137-145) mmol/L Chloride (98-107) mmol/L Carbon Dioxide (22-30) mmol/L BUN (9-20) mg/dL Creatinine (0.66-1.25) mg/dL Glucose (74-99) mg/dL POC Glucose (mg/dL) (75-99) mg/dL Plasma Lactic Acid Rob 4.5 H* 7.3 H* (0.7-2.0) mmol/L Calcium (8.4-10.2) mg/dL Magnesium (1.6-2.3) mg/dL Ferritin (22.0-322.0) ng/mL Total Bilirubin (0.2-1.3) mg/dL AST (17-59) U/L ALT (4-49) U/L Alkaline Phosphatase (38-126) U/L Lactate Dehydrogenase (313-618) U/L Troponin I (0.000-0.034) ng/mL C-Reactive Protein (<1.0) mg/dL Total Protein (6.3-8.2) g/dL Albumin (3.5-5.0) g/dL Procalcitonin (0.02-0.09) ng/mL 08/06/20 08/06/20 08/06/20 Range/Units 03:48 03:48 06:13 RBC (4.30-5.90) m/uL Hgb (13.0-17.5) gm/dL Hct (39.0-53.0) % Plt Count (150-450) k/uL Lymphocytes # (Manual) (1.0-4.8) k/uL D-Dimer (<0.60) mg/L FEU Sodium 128 L (137-145) mmol/L Chloride (98-107) mmol/L Carbon Dioxide 18 L (22-30) mmol/L BUN 25 H (9-20) mg/dL Creatinine 1.62 H (0.66-1.25) mg/dL Glucose 317 H (74-99) mg/dL POC Glucose (mg/dL) 304 H (75-99) mg/dL Plasma Lactic Acid Rob 4.1 H* (0.7-2.0) mmol/L Calcium 7.6 L (8.4-10.2) mg/dL Magnesium (1.6-2.3) mg/dL Ferritin (22.0-322.0) ng/mL Total Bilirubin 3.1 H (0.2-1.3) mg/dL AST 85 H (17-59) U/L ALT 55 H (4-49) U/L Alkaline Phosphatase 37 L (38-126) U/L Lactate Dehydrogenase (313-618) U/L Troponin I (0.000-0.034) ng/mL C-Reactive Protein (<1.0) mg/dL Total Protein 5.0 L (6.3-8.2) g/dL Albumin 2.9 L (3.5-5.0) g/dL Procalcitonin (0.02-0.09) ng/mL 08/06/20 08/06/20 08/06/20 Range/Units 08:13 08:13 11:40 RBC (4.30-5.90) m/uL Hgb (13.0-17.5) gm/dL Hct (39.0-53.0) % Plt Count (150-450) k/uL Lymphocytes # (Manual) (1.0-4.8) k/uL D-Dimer (<0.60) mg/L FEU Sodium (137-145) mmol/L Chloride (98-107) mmol/L Carbon Dioxide (22-30) mmol/L BUN (9-20) mg/dL Creatinine (0.66-1.25) mg/dL Glucose (74-99) mg/dL POC Glucose (mg/dL) 248 H (75-99) mg/dL Plasma Lactic Acid Rob 4.3 H* (0.7-2.0) mmol/L Calcium (8.4-10.2) mg/dL Magnesium (1.6-2.3) mg/dL Ferritin (22.0-322.0) ng/mL Total Bilirubin (0.2-1.3) mg/dL AST (17-59) U/L ALT (4-49) U/L Alkaline Phosphatase (38-126) U/L Lactate Dehydrogenase (313-618) U/L Troponin I 3.790 H* (0.000-0.034) ng/mL C-Reactive Protein (<1.0) mg/dL Total Protein (6.3-8.2) g/dL Albumin (3.5-5.0) g/dL Procalcitonin (0.02-0.09) ng/mL Microbiology - Last 24 Hours (Table) 08/05/20 15:46 Blood Culture Gram Stain - Preliminary Blood Blood Culture - Preliminary Staphylococcus aureus 08/05/20 15:25 Blood Culture Gram Stain - Preliminary Blood 08/05/20 15:25 Blood Culture - Final Blood 08/05/20 15:46 Blood Culture - Final Blood 08/05/20 16:47 Gram Stain - Preliminary Knee - Left Body Fluid Culture - Preliminary H & H 08/05/20 08/06/20 Range/Units 15:47 03:48 Hgb 10.5 L D 10.6 L (13.0-17.5) gm/dL Hct 30.8 L 29.4 L (39.0-53.0) % Coagulation 08/05/20 Range/Units 15:46 INR 1.1 (<1.2) Result Diagrams: 08/06/20 03:48 08/06/20 03:48 Assessment and Plan (1) Left knee pain Current Visit: Yes Status: Acute Code(s): M25.562 - PAIN IN LEFT KNEE SNOMED Code(s): 7292014130 (2) Infection of total left knee replacement Current Visit: Yes Status: Acute Code(s): T84.54XA - INFECT/INFLM REACTION DUE TO INTERNAL LEFT KNEE PROSTH, INIT SNOMED Code(s): 509254579 Plan: 1. Blood cultures are positive for staph aureus. Cultures of left knee aspirate are pending. 2. Left knee aspirate is reviewed showing elevated white cell count. 3. Appreciate input from internal medicine, cardiology and infectious disease. 4. Planning for I&D of the left knee later today pending medical clearance and patient consent.
[2020-08-06] MEDS: HYDROmorphone 0.5 MG/0.5 ML SYRINGE IVP PRN ×2 (12:24→21:49)
--- NOTE | 2020-08-06 12:29 | P.CRDCN ---
<Luci Ahmadi - Last Filed: 08/06/20 12:22> History of Present Illness Consult date: 08/06/20 History of present illness: HISTORY OF PRESENT ILLNESS: This is a 75-year-old male with a past medical history significant for hypertension, hyperlipidemia, diabetes mellitus, osteoarthritis, GERD, and coronary artery disease. Patient follows in the office with Dr. Valencia. We have been asked to see the patient in consultation for cardiac clearance. Patient is scheduled to undergo I&D of left knee this afternoon with orthopedics. Patient was recently hospitalized earlier this month secondary to inferior STEMI. He was taken to the entry level lab technician but Dr. Vora was unsuccessful at advancing balloon or artherectomy after multiple attempts per his cath report. Echocardiogram co mpleted at that time revealed ejection fraction of 25-30%. Patient was transferred to [facility] where he states he had two stents placed. He was placed on aspirin and plavix. Patient examined at the bedside this morning. He states his left knee started hurting shortly after he was discharged from [facility]. Patient denies any chest pain or pressure. He denies shortness of breath. Patient states he is able to lay flat in bed without any dyspnea. EKG reveals sinus tachycardia with T-wave inversions in anterolateral leads Chest xray suspect some improvement in aeration. Lung volumes are low. Chest CTA: No large central pulmonary embolism. Laboratory data: WBC 7.7. Hemoglobin 10.6. Platelet count 62. Sodium 128. Potassium 3.5. BUN 25. Creatinine 1.62. Lactic acid 7.3. Repeat 4.3. Troponin 1.200. 3.790. Current home cardiac medications include Imdur 60 mg daily, Lipitor 80 mg daily, atenolol 50 mg daily, aspirin 81 mg daily, Plavix 75 mg daily, and valsartan-hctz 320-12.5mg daily Most recent echocardiogram obtained on 07/29/2020 revealed LV wall hypokinesis with an ejection fraction of 25-30% Most recent cardiac catheterization performed on 07/28/2020 revealed extremely calcified left and right coronary system. Mild disease involving the left main coronary artery. Mild disease involving the left anterior descending and diagonal system. Subtotally occluded first obtuse marginal branch of the left circumflex which is a known finding from before. Occluded right coronary artery in the distal portion. Attempted balloon angioplasty of the right coronary artery and also attempted arthrectomy. REVIEW OF SYSTEMS: At the time of my exam: CONSTITUTIONAL: Denies fever or chills. HEENT: Denies blurred vision, vision changes, or eye pain. Denies hemoptysis CARDIOVASCULAR: Denies chest pain. Denies orthopnea. Denies PND. Denies palpitations RESPIRATORY: Denies shortness of breath. GASTROINTESTINAL: Denies abdominal pain. Denies nausea or vomiting. HEMATOLOGIC: Denies bleeding disorders. GENITOURINARY: Denies any blood in urine. SKIN: Denies pruitis. Denies rash. PHYSICAL EXAM: VITAL SIGNS: Reviewed. GENERAL: Well-developed in no acute distress. HEENT: Head is normocephalic. Pupils are equal, round. Sclerae anicteric. Mucous membranes of the mouth are moist. Neck supple. No JVD or thyromegaly LUNGS: Respirations even and unlabored. Lungs essentially clear to auscultation bilaterally. HEART: Regular rate and rhythm. S1 and S2 heard. ABDOMEN: Soft. Nondistended. Nontender. EXTREMITIES: No clubbing or cyanosis. Peripheral pulses intact. Left knee tender with palpation. Left knee swollen with slightly decreased range of motion due to pain. NEUROLOGIC: Awake and alert. Oriented x 3. ASSESSMENT: Septic arthritis of left knee Recent inferior STEMI Coronary artery disease with PCI to RCA Abnormal troponins, no evidence of ACS Ischemic cardiomyopathy, EF 25-30% Hypertension Hyperlipidemia Diabetes mellitus PLAN: Continue dual antiplatelet therapy with aspirin and plavix. Do not hold due to recent stenting. Continue additional cardiac medications Continue to trend troponin levels Patient is high risk to undergo surgical intervention. However, there is no absolute contraindication from a cardiac standpoint. Further recommendations pending patient course Nurse practitioner note has been reviewed by physician. Signing provider agrees with the documented findings, assessment, and plan of care. Past Medical History Past Medical History: Atrial Fibrillation, Coronary Artery Disease (CAD), Cancer, Chest Pain / Angina, Diabetes Mellitus, GERD/Reflux, Hyperlipidemia, Hypertension, Osteoarthritis (OA), Prostate Disorder Additional Past Medical History / Comment(s): 5 Herniated discs in neck causing headaches & numbness in arm and right lower back and pain and right leg pain. Hx 4 fx ribs, current Prostate Cancer- last radiation tx Mar 25 had total of 44 tx. occ constipation, Last Myocardial Infarction Date:: UNKOWN History of Any Multi-Drug Resistant Organisms: None Reported Past Surgical History: Adenoidectomy, Heart Catheterization, Heart Kasandra terization With Stent, Joint Replacement, Orthopedic Surgery, Tonsillectomy Additional Past Surgical History / Comment(s): PROSTATE BX., LT. KNEE ARTHROSCOPY X 2, CERVICAL FUSIONS, COLONOSCOPY, ÁNGEL. CATARTACTS.Pain Procedures , rt radio frequency procedures. , total 3 heart stents, hemorrhoidectomy,heart cath August 2017-lt knee replacement. Stent replacement Past Anesthesia/Blood Transfusion Reactions: No Reported Reaction Additional Past Anesthesia/Blood Transfusion Reaction / Comment(s): doesn't like enclosed tight spaces Date of Last Stent Placement:: 04/24/17 Past Psychological History: No Psychological Hx Reported Smoking Status: Former smoker Past Alcohol Use History: None Reported Past Drug Use History: None Reported - Past Family History Father Additional Family Medical History / Comment(s): Father at age 49 from coronary artery disease. Brother(s) Additional Family Medical History / Comment(s): Patient has one brother with history of smoking and no other major medical problems. Patient does not have any sisters. Daughter(s) Additional Family Medical History / Comment(s): He has one daughter alive in [place] with no major medical problems. Patient has one daughter with history of muscular dystrophy and of pneumonia. Son(s) Family Medical History: No Reported History Additional Family Medical History / Comment(s): Patient has one son with no major medical problems. Mother Family Medical History: Cancer Additional Family Medical History / Comment(s): Mother at age 81 from uterine cancer with metastatic disease. Medications and Allergies Home Medications Medication Instructions Recorded Confirmed Type Atorvastatin Calcium [Lipitor] 80 mg PO DAILY@0900 11/01/14 08/05/20 History Valsartan/Hydrochlorothiazide 1 tab PO DAILY@1800 12/13/19 08/05/20 History [Valsartan-Hctz 320-12.5 mg Tab] Aspirin [Camilla Aspirin EC] 81 mg PO DAILY@89908/05/20 08/05/20 History Atenolol [Tenormin] 50 mg PO DAILY@89908/05/20 08/05/20 History Isosorbide Mononitrate ER [Imdur] 60 mg PO DAILY@0900 08/05/20 08/05/20 History Allergies Allergy/AdvReac Type Severity Reaction Status Date / Time No Known Allergies Allergy Verified 08/05/20 17:38 Physical Exam Vitals: Vital Signs Temp Pulse Pulse Resp BP BP Pulse Ox 08/06/20 08:00 99.5 F 104 H 26 H 125/65 96 08/06/20 06:48 98.6 F 98 18 117/59 94 L 08/06/20 04:59 98.6 F 106 H 24 101/74 98 08/06/20 04:00 102 H 08/06/20 02:55 101.3 F H 08/06/20 00:35 102 H 24 111/60 98 08/05/20 18:48 18 08/05/20 18:19 98.3 F 95 18 106/61 08/05/20 16:57 97 18 100/66 94 L 08/05/20 14:44 101.9 F H 106 H 18 121/61 94 L Intake and Output 08/05/20 08/06/20 08/06/20 22:59 06:59 14:59 Other: Weight 113.398 kg Results 08/06/20 03:48 08/06/20 03:48 Cardiac Enzymes 08/05/20 08/05/20 08/06/20 Range/Units 15:46 15:46 03:48 AST 81 H 85 H (17-59) U/L Lactate Dehydrogenase 1301 H (313-618) U/L Troponin I 1.200 H* (0.000-0.034) ng/mL 08/06/20 Range/Units 08:13 AST (17-59) U/L Lactate Dehydrogenase (313-618) U/L Troponin I 3.790 H* (0.000-0.034) ng/mL Coagulation 08/05/20 Range/Units 15:46 PT 11.6 (9.0-12.0) sec APTT 23.3 (22.0-30.0) sec CBC 08/05/20 08/06/20 Range/Units 15:47 03:48 WBC 7.3 7.7 (3.8-10.6) k/uL RBC 3.26 L 3.13 L (4.30-5.90) m/uL Hgb 10.5 L D 10.6 L (13.0-17.5) gm/dL Hct 30.8 L 29.4 L (39.0-53.0) % Plt Count 62 L D (150-450) k/uL Comprehensive Metabolic Panel 08/05/20 08/06/20 Range/Units 15:46 03:48 Sodium 125 L 128 L (137-145) mmol/L Potassium 3.8 3.5 (3.5-5.1) mmol/L Chloride 95 L 98 (98-107) mmol/L Carbon Dioxide 18 L 18 L (22-30) mmol/L BUN 19 25 H (9-20) mg/dL Creatinine 1.45 H 1.62 H (0.66-1.25) mg/dL Glucose 327 H 317 H (74-99) mg/dL Calcium 7.9 L 7.6 L (8.4-10.2) mg/dL AST 81 H 85 H (17-59) U/L ALT 61 H 55 H (4-49) U/L Alkaline Phosphatase 35 L 37 L (38-126) U/L Total Protein 5.4 L 5.0 L (6.3-8.2) g/dL Albumin 3.2 L 2.9 L (3.5-5.0) g/dL Current Medications Generic Name Dose Route Start Last Admin Trade Name Freq PRN Reason Stop Dose Admin Acetaminophen 1,000 mg 08/05/20 15:18 08/06/20 09:15 Acetaminophen Tab 500 Mg Tab PO 1,000 mg Q6HR PRN Administration Fever>101 Albuterol Sulfate 2 puff 08/05/20 20:00 08/06/20 08:27 Albuterol Hfa Inhaler INHALATION Not Given RT-Q6H [facility] Albuterol Sulfate 2 puff 08/05/20 15:18 Albuterol Hfa Inhaler INHALATION RT-Q6H PRN Shortness Of Breath Or Wheezing Aspirin 81 mg 08/06/20 09:00 08/06/20 09:14 Aspirin 81 Mg PO 81 mg DAILY@0900 [facility] Administration Atenolol 50 mg 08/06/20 09:00 08/06/20 09:15 Atenolol 50 Mg Tab PO 50 mg DAILY@0900 [facility] Administration Atorvastatin Calcium 80 mg 08/06/20 09:00 08/06/20 09:15 Atorvastatin 80 Mg Tab PO 80 mg DAILY@0900 [facility] Administration Clopidogrel Bisulfate 75 mg 08/06/20 09:00 08/06/20 09:55 Clopidogrel 75 Mg Tab PO 75 mg DAILY [facility] Administration Hydrochlorothiazide 12.5 mg 08/06/20 18:00 Hydrochlorothiazide 12.5 Mg Cap PO DAILY@1800 [facility] Hydromorphone HCl 1 mg 08/05/20 20:02 08/06/20 06:26 Hydromorphone 1 Mg/Ml 1 Ml Syringe IVP 1 mg Q3HR PRN Administration Severe Pain Hydromorphone HCl 0.5 mg 08/05/20 20:02 Hydromorphone 0.5 Mg/0.5 Ml Syringe IVP Q3HR PRN Moderate Pain Sodium Chloride 1,000 mls @ 20 mls/hr 08/05/20 20:15 08/06/20 06:23 Saline 0.9% IV 130 mls/hr .Q24H [facility] Administration Vancomycin HCl 2,000 mg/ 500 mls @ 167 mls/hr 08/06/20 18:00 Sodium Chloride IVPB Q24H [facility] Insulin Aspart 0 unit 08/06/20 07:30 08/06/20 06:26 Insulin Aspart (Novolog) 100 Unit/Ml Vial SQ 8 unit ACHS [facility] Administration Protocol Insulin Detemir 18 unit 08/06/20 21:00 Insulin Detemir (Levemir) 100 Unit/Ml Syr SQ HS [facility] Isosorbide Mononitrate 60 mg 08/06/20 09:00 08/06/20 09:14 Isosorbide Mononitrate Er 60 Mg Tab.Er.24h PO 60 mg DAILY@0900 [facility] Administration Linagliptin 5 mg 08/06/20 09:00 08/06/20 09:15 Linagliptin 5 Mg Tablet PO 5 mg DAILY [facility] Administration Magnesium Oxide 400 mg 08/05/20 21:00 08/06/20 09:15 Magnesium Oxide 400 Mg Tab PO 400 mg BID [facility] Administration Naloxone HCl 0.2 mg 08/05/20 20:02 Naloxone 0.4 Mg/Ml 1 Ml Vial IV Q2M PRN Opioid Reversal Pantoprazole Sodium 40 mg 08/05/20 20:15 08/06/20 09:14 Pantoprazole 40 Mg/10 Ml Vial IV 40 mg DAILY [facility] Administration Valsartan 320 mg 08/06/20 18:00 Valsartan 160 Mg Tab PO DAILY@1800 [facility] Intake and Output 08/05/20 08/06/20 08/06/20 22:59 06:59 14:59 Other: Weight 113.398 kg 08/06/20 03:48 08/06/20 03:48 <Jarrell Hong - Last Filed: 08/06/20 13:43> Physical Exam Vitals: Vital Signs Temp Pulse Pulse Resp BP BP Pulse Ox 08/06/20 12:30 99.1 F 102 H 18 94/53 96 08/06/20 08:00 99.5 F 104 H 26 H 125/65 96 08/06/20 06:48 98.6 F 98 18 117/59 94 L 08/06/20 04:59 98.6 F 106 H 24 101/74 98 08/06/20 04:00 102 H 08/06/20 02:55 101.3 F H 08/06/20 00:35 102 H 24 111/60 98 08/05/20 18:48 18 08/05/20 18:19 98.3 F 95 18 106/61 08/05/20 16:57 97 18 100/66 94 L 08/05/20 14:44 101.9 F H 106 H 18 121/61 94 L Intake and Output 08/05/20 08/06/20 08/06/20 22:59 06:59 14:59 Other: Weight 113.398 kg Results 08/06/20 03:48 08/06/20 03:48 Cardiac Enzymes 08/05/20 08/05/20 08/06/20 Range/Units 15:46 15:46 03:48 AST 81 H 85 H (17-59) U/L Lactate Dehydrogenase 1301 H (313-618) U/L Troponin I 1.200 H* (0.000-0.034) ng/mL 08/06/20 08/06/20 Range/Units 08:13 12:23 AST (17-59) U/L Lactate Dehydrogenase (313-618) U/L Troponin I 3.790 H* 4.390 H* (0.000-0.034) ng/mL Coagulation 08/05/20 Range/Units 15:46 PT 11.6 (9.0-12.0) sec APTT 23.3 (22.0-30.0) sec CBC 08/05/20 08/06/20 Range/Units 15:47 03:48 WBC 7.3 7.7 (3.8-10.6) k/uL RBC 3.26 L 3.13 L (4.30-5.90) m/uL Hgb 10.5 L D 10.6 L (13.0-17.5) gm/dL Hct 30.8 L 29.4 L (39.0-53.0) % Plt Count 62 L D (150-450) k/uL Comprehensive Metabolic Panel 08/05/20 08/06/20 Range/Units 15:46 03:48 Sodium 125 L 128 L (137-145) mmol/L Potassium 3.8 3.5 (3.5-5.1) mmol/L Chloride 95 L 98 (98-107) mmol/L Carbon Dioxide 18 L 18 L (22-30) mmol/L BUN 19 25 H (9-20) mg/dL Creatinine 1.45 H 1.62 H (0.66-1.25) mg/dL Glucose 327 H 317 H (74-99) mg/dL Calcium 7.9 L 7.6 L (8.4-10.2) mg/dL AST 81 H 85 H (17-59) U/L ALT 61 H 55 H (4-49) U/L Alkaline Phosphatase 35 L 37 L (38-126) U/L Total Protein 5.4 L 5.0 L (6.3-8.2) g/dL Albumin 3.2 L 2.9 L (3.5-5.0) g/dL Current Medications Generic Name Dose Route Start Last Admin Trade Name Freq PRN Reason Stop Dose Admin Acetaminophen 1,000 mg 08/05/20 15:18 08/06/20 09:15 Acetaminophen Tab 500 Mg Tab PO 1,000 mg Q6HR PRN Administration Fever>101 Albuterol Sulfate 2 puff 08/05/20 20:00 08/06/20 12:33 Albuterol Hfa Inhaler INHALATION 2 puff RT-Q6H [facility] Administration Albuterol Sulfate 2 puff 08/05/20 15:18 Albuterol Hfa Inhaler INHALATION RT-Q6H PRN Shortness Of Breath Or Wheezing Aspirin 81 mg 08/06/20 09:00 08/06/20 09:14 Aspirin 81 Mg PO 81 mg DAILY@0900 [facility] Administration Atenolol 50 mg 08/06/20 09:00 08/06/20 09:15 Atenolol 50 Mg Tab PO 50 mg DAILY@0900 [facility] Administration Atorvastatin Calcium 80 mg 08/06/20 09:00 08/06/20 09:15 Atorvastatin 80 Mg Tab PO 80 mg DAILY@0900 [facility] Administration Clopidogrel Bisulfate 75 mg 08/06/20 09:00 08/06/20 09:55 Clopidogrel 75 Mg Tab PO 75 mg DAILY [facility] Administration Hydrochlorothiazide 12.5 mg 08/06/20 18:00 Hydrochlorothiazide 12.5 Mg Cap PO DAILY@1800 [facility] Hydromorphone HCl 1 mg 08/05/20 20:02 08/06/20 06:26 Hydromorphone 1 Mg/Ml 1 Ml Syringe IVP 1 mg Q3HR PRN Administration Severe Pain Hydromorphone HCl 0.5 mg 08/05/20 20:02 08/06/20 12:24 Hydromorphone 0.5 Mg/0.5 Ml Syringe IVP 0.5 mg Q3HR PRN Administration Moderate Pain Sodium Chloride 1,000 mls @ 20 mls/hr 08/05/20 20:15 08/06/20 06:23 Saline 0.9% IV 130 mls/hr .Q24H [facility] Administration Vancomycin HCl 2,000 mg/ 500 mls @ 167 mls/hr 08/06/20 18:00 Sodium Chloride IVPB Q24H [facility] Insulin Aspart 0 unit 08/06/20 07:30 08/06/20 12:23 Insulin Aspart (Novolog) 100 Unit/Ml Vial SQ 5 unit ACHS [facility] Administration Protocol Insulin Detemir 18 unit 08/06/20 21:00 Insulin Detemir (Levemir) 100 Unit/Ml Syr SQ HS [facility] Isosorbide Mononitrate 60 mg 08/06/20 09:00 08/06/20 09:14 Isosorbide Mononitrate Er 60 Mg Tab.Er.24h PO 60 mg DAILY@0900 [facility] Administration Linagliptin 5 mg 08/06/20 09:00 08/06/20 09:15 Linagliptin 5 Mg Tablet PO 5 mg DAILY [facility] Administration Magnesium Oxide 400 mg 08/05/20 21:00 08/06/20 09:15 Magnesium Oxide 400 Mg Tab PO 400 mg BID [facility] Administration Naloxone HCl 0.2 mg 08/05/20 20:02 Naloxone 0.4 Mg/Ml 1 Ml Vial IV Q2M PRN Opioid Reversal Pantoprazole Sodium 40 mg 08/05/20 20:15 08/06/20 09:14 Pantoprazole 40 Mg/10 Ml Vial IV 40 mg DAILY [facility] Administration Valsartan 320 mg 08/06/20 18:00 Valsartan 160 Mg Tab PO DAILY@1800 [facility] Intake and Output 08/05/20 08/06/20 08/06/20 22:59 06:59 14:59 Other: Weight 113.398 kg 08/06/20 03:48 08/06/20 03:48
[2020-08-06 14:52] LABS: Band Neutrophils % 23 %; Lymphocytes # (M) 0.15 k/uL (1.0-4.8); Metamyelocytes # (M) 0.08 k/uL (0); Metamyelocytes % 1 %; Monocytes # (M) 0.31 k/uL (0-1.0); Myelocytes # (M) 0.08 k/uL (0); Myelocytes % 1 %; Neutrophils % (M) 70 %; Nucleated Red Blood Cells 0 /100 WBC (0-0); Total Cells Counted 200
[2020-08-06 14:53] LABS: Toxic Granulation Present
[2020-08-06 14:55] LABS: Polychromasia Present
[2020-08-06 14:58] LABS: Anisocytosis (M) Present
[2020-08-06] MEDS ORDERED: IV FLUID CONTINUATION 1,000 ML IV ONE (16:00)
[2020-08-06 16:07] LABS: Glucose,Whole Blood 190 mg/dL (75-99)
[2020-08-06] MEDS ORDERED: ONDANSETRON 4 MG/2 ML VIAL ONE (16:19)
[2020-08-06] MEDS ORDERED: ONDANSETRON 4 MG/2 ML VIAL IVP ONE ×2 (16:30→19:09)
[2020-08-06] MEDS ORDERED: IPRATROPIUM-ALBUTEROL 3 ML NEB INHALATION ONE (16:33)
[2020-08-06] MEDS ORDERED: PHENYLEPHRINE-0.9% NACL SYG 1,000 MCG/10 ML SYRINGE ONE (17:17)
[2020-08-06] MEDS ORDERED: NEOSTIGMINE 1 MG/ML 10 ML VIAL ONE (17:17)
[2020-08-06] MEDS ORDERED: fentaNYL (PF) 50 MCG/ML 2 ML AMP ONE (17:17)
[2020-08-06] MEDS ORDERED: ETOMIDATE 2 MG/ML 10 ML VIAL ONE (17:17)
[2020-08-06] MEDS ORDERED: ROCURONIUM 10 MG/ML (5 ML VIAL) IV ONE (17:17)
[2020-08-06] MEDS ORDERED: LIDOCAINE 1% INJ 10MG/ML (20 ML MDV) ONE (17:17)
[2020-08-06] MEDS ORDERED: VASOPRESSIN 20 UNIT/ML 1 ML VIAL ONE (17:17)
[2020-08-06] MEDS ORDERED: GLYCOPYRROLATE 0.2 MG/ML 2 ML VIAL ONE (17:17)
[2020-08-06] MEDS ORDERED: ePHEDrine SULFATE/0.9% NACL/PF 50 MG/5 ML SYRINGE IV ONE (17:17)
[2020-08-06] MEDS ORDERED: SUCCINYLCHOLINE CHLORIDE 100 MG/5 ML SYR IV ONE (17:17)
[2020-08-06] MEDS ORDERED: ceFAZolin 3,000 MG in SODIUM CHLORIDE 0.9% IRRIGATIO 3,000 ML IRRIGATION ONE (17:47)
[2020-08-06] MEDS ORDERED: VALSARTAN 160 MG TAB PO SCH (18:00)
[2020-08-06] MEDS ORDERED: VANCOMYCIN 2,000 MG in SODIUM CHLORIDE 0.9% 500 ML 500 ML IVPB SCH (18:00)
[2020-08-06] MEDS ORDERED: hydroCHLOROthiazide 12.5 MG CAP PO SCH (18:00)
--- NOTE | 2020-08-06 18:06 | P.OP ---
Date of Procedure: 08/06/20 Preoperative Diagnosis: Septic arthritis left total knee Postoperative Diagnosis: Septic arthritis left total knee Procedure(s) Performed: Incision and drainage of the left total knee Anesthesia: GAURANG Surgeon: Raji Choi Cryptologic Technician Operator/Analyst #1: Paola Xiao Estimated Blood Loss (ml): 100 Pathology: other (Cultures 2) Condition: stable Disposition: PACU Indications for Procedure: This is a 75-year-old gentleman that presented to emergency room yesterday with new onset left knee pain. The pain has become worse over the past week or so since he's had a recent cardiac catheterization. The knee was aspirated by the emergency room department and purulent fluid was removed with high nucleated cell count in the fluid. Patient also has positive blood cultures. After discussing the surgical and nonsurgical treatment options with him at length, I recommended an incision and drainage of the knee with retention of the implants. I explained this is no guarantee this will eradicate the infection and if it does not, we will have to proceed with a stage I resection arthroplasty with placement of antibiotic spacer. He is aware this informed consent was obtained. Operative Findings: The operative lines are consistent with septic arthritis of the left total knee. Description of Procedure: Patient was seen in the preoperative area, consent was reviewed, and the operative site was marked with a skin marker. Patient was then brought to the operating room and given a general anesthetic by the anesthesia department. Left lower extremities and prepped and draped in usual sterile fashion. A unive rsal timeout was then performed confirming the patient's name, surgical site, ALLERGIES, and consent. The prior midline anterior knee incision was then used with a skin so obtained tissue sharply incised. A medial parapatellar throughout and was performed with a large amount of purulent material expressed. This was cultured 2. The knee was then fully opened and all the purulent material was evacuated. Next, using a pulsatile lavage with antibiotic solution the knee was copiously irrigated. After thorough irrigation components were inspected and found to be well fixed. Antibiotic beads were then placed within the knee and was closed over medium suction drain. Arthrotomy was closed with #1 strata fix followed by 2-0 Vicryl and jose david for the skin. A sterile dressing was applied and patient was transferred recovery room stable condition. Asst. Paola Xiao was required due the complexity surgery and the need for skilled certified surgical tech/first assistant.
[2020-08-06 20:30] LABS: Glucose,Whole Blood 178 mg/dL (75-99)
[2020-08-06] MEDS ORDERED: INSULIN DETEMIR (LEVEMIR) 100 UNIT/ML SYR SQ SCH (21:00)
[2020-08-07] MEDS: HYDROmorphone 0.5 MG/0.5 ML SYRINGE IVP PRN (03:35)
[2020-08-07] MEDS: SODIUM CHLORIDE 0.9% 1,000 ML IV SCH ×3 (03:36→17:05)
[2020-08-07 06:20] LABS: Glucose,Whole Blood 222 mg/dL (75-99)
[2020-08-07] MEDS: INSULIN ASPART (NovoLOG) 100 UNIT/ML VIAL SQ SCH ×4 (06:47→21:02)
--- NOTE | 2020-08-07 08:08 | P.PN ---
Subjective Progress Note Date: 08/07/20 Principal diagnosis: Septic arthritis left knee. History of total left knee arthroplasty. Status post cardiac catheterization. This is a 75-year-old gentleman that presented to emergency room on 08/05/2020 with new onset left knee pain. The pain had become worse over the past week or so since he's had a recent cardiac catheterization. The knee was aspirated by the emergency room department and purulent fluid was removed with high nucleated cell count in the fluid. Patient also has positive blood cultures. After discussing the surgical and nonsurgical treatment options with him at length, it was recommended an incision and drainage of the knee with retention of the imp lants. The patient was taken to the operating room on 08/06/2020 for I&D of the left knee. Today is postoperative day #1. The patient has no new complaints or concerns regarding the knee. He does complain of neck pain. Vital signs and labs are stable. Intraoperative cultures the left knee are pending. Blood cultures are showing presumptive staph aureus. Objective - Vital Signs Vital signs: Vital Signs Temp 98.6 F 08/07/20 04:00 Pulse 103 H 08/07/20 04:00 Resp 20 08/07/20 04:00 BP 116/61 08/07/20 04:00 Pulse Ox 96 08/07/20 04:00 Intake & Output 08/06/20 08/07/20 08/07/20 18:59 06:59 18:59 Intake Total 601 0 Output Total 100 350 Balance 501 -350 Weight 113.398 kg 115 kg Intake: IV 601 0 Output: Drainage 40 Left Knee 40 Urine 310 Estimated Blood Loss 100 Other: Voiding Method Urinal # Voids 1 - Exam This is a pleasant 75-year-old male in no acute distress. He is alert and oriented 3. He is seen at the edge of the bed eating breakfast. Exam of his left lower extremity reveals that his postoperative dressing and Hemovac are intact. He has full foot and ankle motion without difficulty or pain. Neurovascular status to the lower extremity is intact. - Labs CBC & Chem 7: 08/06/20 03:48 08/06/20 03:48 Labs: Abnormal Lab Results - Last 24 Hours (Table) 08/05/20 08/06/20 08/06/20 Range/Units 16:47 03:48 08:13 Plt Count 62 L (150-450) k/uL Lymphocytes # (Manual) 0.15 L (1.0-4.8) k/uL Metamyelocytes # (Man) 0.08 H (0) k/uL Myelocytes # (Manual) 0.08 H (0) k/uL POC Glucose (mg/dL) (75-99) mg/dL Plasma Lactic Acid Rob 4.3 H* (0.7-2.0) mmol/L Troponin I (0.000-0.034) ng/mL Synovial Crystals Seen A (None Seen) 08/06/20 08/06/20 08/06/20 Range/Units 08:13 11:40 12:23 Plt Count (150-450) k/uL Lymphocytes # (Manual) (1.0-4.8) k/uL Metamyelocytes # (Man) (0) k/uL Myelocytes # (Manual) (0) k/uL POC Glucose (mg/dL) 248 H (75-99) mg/dL Plasma Lactic Acid Rob (0.7-2.0) mmol/L Troponin I 3.790 H* 4.390 H* (0.000-0.034) ng/mL Synovial Crystals (None Seen) 08/06/20 08/06/20 08/06/20 Range/Units 15:20 16:05 20:28 Plt Count (150-450) k/uL Lymphocytes # (Manual) (1.0-4.8) k/uL Metamyelocytes # (Man) (0) k/uL Myelocytes # (Manual) (0) k/uL POC Glucose (mg/dL) 190 H 178 H (75-99) mg/dL Plasma Lactic Acid Rob (0.7-2.0) mmol/L Troponin I 5.600 H* (0.000-0.034) ng/mL Synovial Crystals (None Seen) 08/07/20 Range/Units 06:19 Plt Count (150-450) k/uL Lymphocytes # (Manual) (1.0-4.8) k/uL Metamyelocytes # (Man) (0) k/uL Myelocytes # (Manual) (0) k/uL POC Glucose (mg/dL) 222 H (75-99) mg/dL Plasma Lactic Acid Rob (0.7-2.0) mmol/L Troponin I (0.000-0.034) ng/mL Synovial Crystals (None Seen) Microbiology - Last 24 Hours (Table) 08/06/20 18:00 Anaerobic Culture - Preliminary Knee - Left 08/06/20 18:00 Anaerobic Culture - Preliminary Knee - Left 08/06/20 18:00 Wound Culture - Preliminary Knee - Left 08/06/20 18:00 Wound Culture - Preliminary Knee - Left 08/05/20 15:25 Blood Culture Gram Stain - Preliminary Blood Blood Culture - Preliminary Presumptive Staph aureus 08/05/20 16:47 Gram Stain - Preliminary Knee - Left Body Fluid Culture - Preliminary Presumptive Staph aureus 08/05/20 15:46 Blood Culture Gram Stain - Preliminary Blood Blood Culture - Preliminary Staphylococcus aureus 08/05/20 15:25 Blood Culture - Final Blood 08/05/20 15:46 Blood Culture - Final Blood Assessment and Plan (1) Infection of total left knee replacement Current Visit: Yes Status: Acute Code(s): T84.54XA - INFECT/INFLM REACTION DUE TO INTERNAL LEFT KNEE PROSTH, INIT SNOMED Code(s): 325864941 (2) Left knee pain Current Visit: Yes Status: Acute Code(s): M25.562 - PAIN IN LEFT KNEE SNOMED Code(s): 8258364799 (3) Septic arthritis Current Visit: Yes Status: Acute Code(s): M00.9 - PYOGENIC ARTHRITIS, UNSPECIFIED SNOMED Code(s): 286907071 (4) S/P total knee arthroplasty Current Visit: No Status: Acute Code(s): Z96.659 - PRESENCE OF UNSPECIFIED ARTIFICIAL KNEE JOINT SNOMED Code(s): 7979309080085 Plan: The clinical findings are discussed with the patient. We will wait culture results. We will leave his dressing and Hemovac intact today. He may be weightbearing as tolerated. We will continue to observe his neck pain. We'll continue to follow.
[2020-08-07] MEDS: ASPIRIN 81 MG PO SCH (08:10)
[2020-08-07] MEDS: ATORVASTATIN 80 MG TAB PO SCH (08:11)
[2020-08-07] MEDS: PANTOPRAZOLE 40 MG/10 ML VIAL IV SCH (08:11)
[2020-08-07] MEDS: ISOSORBIDE MONONITRATE ER 60 MG TAB.ER.24H PO SCH (08:11)
[2020-08-07] MEDS: ACETAMINOPHEN TAB 500 MG TAB PO PRN ×2 (08:11→16:06)
[2020-08-07] MEDS: atenoloL 50 MG TAB PO SCH (08:11)
[2020-08-07] MEDS: LINAGLIPTIN 5 MG TABLET PO SCH (08:11)
[2020-08-07] MEDS: MAGNESIUM OXIDE 400 MG TAB PO SCH ×2 (08:11→21:01)
[2020-08-07] MEDS: CLOPIDOGREL 75 MG TAB PO SCH (08:11)
[2020-08-07] MEDS: HYDROmorphone 1 MG/ML 1 ML SYRINGE IVP PRN ×3 (08:13→16:06)
--- NOTE | 2020-08-07 08:32 | CONS ---
CONSULTATION DATE OF SERVICE: 08/06/2020 REASON FOR CONSULTATION: Septic arthritis and bacteremia. HISTORY OF PRESENT ILLNESS: The patient is a 75-year-old male with a past medical history significant for coronary artery disease in this patient apparently was recently admitted at this facility for an inferior wall ST elevated NM. The patient did have attempted angioplasty which was not completed. Subsequently the patient was transferred to [facility] for a complex of the occluded RCA and the patient did receive 2 stents. The patient mentioned while at [facility], he started noticing having pain to the left knee area and after discharge from hospital, the patient was not able to walk on any distance, he had buckling. Patient describing the pain to be more of sharp in nature, intensity almost 7 to 8/10 and no radiation with some associated swelling but no redness. With worsening of his pain, the patient presented to the [facility] ER. On arrival to the ER yesterday, the patient did have fever of 101 degrees Fahrenheit. The patient did have a normal white count, some lymphopenia. D-dimer was elevated. Creatinine was mildly elevated 1.45. Cox PCR was negative. The patient did have left knee aspirated, it was cloudy, 62,000 nucleated cells. The patient did have blood cultures drawn, which came back positive with presumptive Staph aureus and the aspirate from the left knee now showing Staph aureus. The patient was started on vancomycin and Zosyn infection was consulted for further management for antibiotic therapy. Patient has been evaluated by Orthopedics and the patient is status post I and D of the left total knee and placement of antibiotic spacer. REVIEW OF SYSTEMS: Positive points have been mentioned in HPI. Rest of systems are negative. PAST MEDICAL HISTORY: Atrial fibrillation, coronary artery disease, diabetes mellitus, gastroesophageal reflux disease, hyperlipidemia, hypertension, osteoarthritis, prostate disorder, herniated discs. PAST SURGICAL HISTORY: Adenoidectomy, PTCA with stent, left knee replacement, prostate biopsy. SOCIAL HISTORY: Remote history of smoking. No drinking or drug use. FAMILY HISTORY: Father at age of 49 from coronary artery disease. Mother had history of uterine cancer. ALLERGIES: No known drug allergies. MEDICATIONS: Medications include the patient is currently on vancomycin, Pharmacy to dose, Zosyn, Tylenol, aspirin, Tenormin, Lipitor, Plavix, hydrochlorothiazide, Dilaudid, NovoLog, Levemir, Imdur, Tradjenta, Mag oxide, Narcan, Protonix, Diovan. PHYSICAL EXAMINATION: Blood pressure is 101/55, pulse of 97, temperature 98.5, T-max 101.3. He is 95% on room air. General description is an elderly male lying in bed in no distress. No tachypnea or accessory muscles of respiration use. HEENT: Examination shows slight pallor. No scleral icterus. Oral mucous membrane is dry. NECK: Trachea central. No thyromegaly. LUNGS: Unlabored breathing, clear to auscultation anteriorly. HEART: S1, S2. Regular rate and rhythm. ABDOMEN: Soft, no tenderness. No guarding or rigidity. EXTREMITIES: No edema of feet. Left knee was slightly swollen. No significant redness, was slightly warm to touch and tender. NEUROLOGICALLY: The patient is awake, alert, oriented x3. Mood and affect normal. LABS: Left knee aspirate, blood culture positive for Staph aureus, MSSA. Hemoglobin is 10.6, white count 7.7. Troponins are elevated. BUN of 25, creatinine 1.62. DIAGNOSTIC IMPRESSION AND PLAN: 1. Patient admitted to the hospital with sepsis in this patient who did have a fever, tachycardia source is left knee septic arthritis with secondary bacteremia secondary to MSSA. 2. Patient with borderline kidney function, high risk of nephrotoxicity. PLAN: 1. Discontinue vancomycin and Zosyn. 2. Start the patient on cefazolin 2 grams q.8 hours. 3. Daily blood cultures to document clearance of his bacteremia. 4. We will follow on clinical condition and culture to further adjust medication if needed. Thank you for this consultation. Will follow this patient along with you. MMODL / IJN: [id number] /
[2020-08-07] MEDS: ALBUTEROL HFA INHALER INHALATION SCH ×5 (08:41→19:52)
[2020-08-07] MEDS ORDERED: HYDROcodone/APAP 5-325MG 1 EACH TAB PO PRN (09:36)
--- NOTE | 2020-08-07 09:58 | P.PN ---
Subjective HISTORY OF PRESENT ILLNESS: This is a 75-year-old male with a past medical history significant for hypertension, hyperlipidemia, diabetes mellitus, osteoarthritis, GERD, and coronary artery disease. Patient follows in the office with Dr. Valencia. We have been asked to see the patient in consultation for cardiac clearance. Patient is scheduled to undergo I&D of left knee this afternoon with orthopedics. Patient was recently hospitalized earlier this month secondary to inferior STEMI. He was taken to the technical laboratory asst but Dr. Vora was unsuccessful at advancing balloon or artherectomy after multiple attempts per his cath report. Echocardiogram completed at that time revealed ejection fraction of 25-30%. Patient was transfe rred to [facility] where he states he had two stents placed. He was placed on aspirin and plavix. Patient examined at the bedside this morning. He states his left knee started hurting shortly after he was discharged from [facility]. Patient denies any chest pain or pressure. He denies shortness of breath. Patient states he is able to lay flat in bed without any dyspnea. 08/07 Patient seen and examined. Per nursing patient has been having extreme neck and back pain as well knee pain and therefore received narcotics. Currently somewhat lethargic and slow to answer questions with recent Dilaudid given, however he denies any chest pain or pressure which he had previously with his ND. Troponins were mildly increasing yesterday, repeat this morning pending. Platelets also have been decreasing. Blood cultures and knee cultures positive for staph aureus. REVIEW OF SYSTEMS: At the time of my exam: CONSTITUTIONAL: Denies fever or chills. HEENT: Denies blurred vision, vision changes, or eye pain. Denies hemoptysis CARDIOVASCULAR: Denies chest pain. Denies orthopnea. Denies PND. Denies palpitations RESPIRATORY: Denies shortness of breath. GASTROINTESTINAL: Denies abdominal pain. Denies nausea or vomiting. HEMATOLOGIC: Denies bleeding disorders. GENITOURINARY: Denies any blood in urine. SKIN: Denies pruitis. Denies rash. PHYSICAL EXAM: VITAL SIGNS: Reviewed. GENERAL: Well-developed in no acute distress. HEENT: Head is normocephalic. Pupils are equal, round. Sclerae anicteric. Mucous membranes of the mouth are moist. Neck supple. No JVD or thyromegaly LUNGS: Respirations even and unlabored. Lungs essentially clear to auscultation bilaterally. HEART: Regular rate and rhythm. S1 and S2 heard. ABDOMEN: Soft. Nondistended. Nontender. EXTREMITIES: No clubbing or cyanosis. Peripheral pulses intact. Left knee tender with palpation. Left knee swollen with slightly decreased range of motion due to pain. NEUROLOGIC: Awake and alert. Oriented x 3. ASSESSMENT: Septic arthritis of left knee Recent inferior STEMI Coronary artery disease with PCI to RCA Abnormal troponins, no evidence of ACS Ischemic cardiomyopathy, EF 25-30% Hypertension Hyperlipidemia Diabetes mellitus Staph aureus bacteremia Thrombocytopenia. NSTEMI likely type 2 mechanism from sepsis PLAN: Continue dual antiplatelet therapy with aspirin and plavix. Monitor platelets closely and any signs of bleeding Continue additional cardiac medications Check repeat troponin this AM. Patient without anginal symptoms such as chest pain which he had with his prior ND. Suspect Type 2 NSTEMI from sepsis. Check repeat 2D echo to evaluate for LV function (however was previously 25-30%) as well as to evaluate for any regurgitation or signs of endocarditis however main source appears to be septic knee. Further recommendations pending patient course. Prognosis guarded. Objective - Vital Signs Vital signs: Vital Signs Temp 98.6 F 08/07/20 04:00 Pulse 103 H 08/07/20 04:00 Resp 20 08/07/20 04:00 BP 116/61 08/07/20 04:00 Pulse Ox 96 08/07/20 04:00 Intake & Output 08/06/20 08/07/20 08/07/20 18:59 06:59 18:59 Intake Total 601 0 Output Total 100 350 Balance 501 -350 Weight 113.398 kg 115 kg Intake: IV 601 0 Output: Drainage 40 Left Knee 40 Urine 310 Estimated Blood Loss 100 Other: Voiding Method Urinal # Voids 1 - Labs CBC & Chem 7: 08/06/20 03:48 08/06/20 03:48 Labs: Abnormal Lab Results - Last 24 Hours (Table) 08/05/20 08/06/20 08/06/20 Range/Units 16:47 03:48 08:13 Plt Count 62 L (150-450) k/uL Lymphocytes # (Manual) 0.15 L (1.0-4.8) k/uL Metamyelocytes # (Man) 0.08 H (0) k/uL Myelocytes # (Manual) 0.08 H (0) k/uL POC Glucose (mg/dL) (75-99) mg/dL Troponin I 3.790 H* (0.000-0.034) ng/mL Synovial Crystals Seen A (None Seen) 08/06/20 08/06/20 08/06/20 Range/Units 11:40 12:23 15:20 Plt Count (150-450) k/uL Lymphocytes # (Manual) (1.0-4.8) k/uL Metamyelocytes # (Man) (0) k/uL Myelocytes # (Manual) (0) k/uL POC Glucose (mg/dL) 248 H (75-99) mg/dL Troponin I 4.390 H* 5.600 H* (0.000-0.034) ng/mL Synovial Crystals (None Seen) 08/06/20 08/06/20 08/07/20 Range/Units 16:05 20:28 06:19 Plt Count (150-450) k/uL Lymphocytes # (Manual) (1.0-4.8) k/uL Metamyelocytes # (Man) (0) k/uL Myelocytes # (Manual) (0) k/uL POC Glucose (mg/dL) 190 H 178 H 222 H (75-99) mg/dL Troponin I (0.000-0.034) ng/mL Synovial Crystals (None Seen) Microbiology - Last 24 Hours (Table) 08/06/20 18:00 Gram Stain - Preliminary Knee - Left Wound Culture - Preliminary 08/06/20 18:00 Gram Stain - Preliminary Knee - Left Wound Culture - Preliminary 08/06/20 18:00 Anaerobic Culture - Preliminary Knee - Left 08/06/20 18:00 Anaerobic Culture - Preliminary Knee - Left 08/05/20 15:25 Blood Culture Gram Stain - Preliminary Blood Blood Culture - Preliminary Presumptive Staph aureus 08/05/20 16:47 Gram Stain - Preliminary Knee - Left Body Fluid Culture - Preliminary Presumptive Staph aureus 08/05/20 15:46 Blood Culture Gram Stain - Preliminary Blood Blood Culture - Preliminary Staphylococcus aureus
[2020-08-07 10:11] LABS: HCT 30.1 % (39.0-53.0); HGB 9.8 gm/dL (13.0-17.5); MCH 32.1 pg (25.0-35.0); MCHC 32.7 g/dL (31.0-37.0); MCV 98.2 fL (80.0-100.0); Mean Platelet Volume 10.7; RBC 3.06 m/uL (4.30-5.90); RDW 14.4 % (11.5-15.5); WBC 8.4 k/uL (3.8-10.6)
[2020-08-07 10:24] LABS: Albumin 2.8 g/dL (3.5-5.0); Calcium 7.8 mg/dL (8.4-10.2); Potassium 3.9 mmol/L (3.5-5.1); Total Bilirubin 1.7 mg/dL (0.2-1.3); Total Protein 5.1 g/dL (6.3-8.2)
[2020-08-07 10:46] LABS: Platelet Count 75 k/uL (150-450)
[2020-08-07 11:44] LABS: Glucose,Whole Blood 219 mg/dL (75-99)
--- NOTE | 2020-08-07 14:55 | P.PN ---
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 on 07/28/2020 with what appears to be an inferior wall ST elevation myocardial infarction patient was taken to the catholic priest and an attempted angioplasty of a computed occluded RCA had failed and the patient was transferred to [facility] for complex angioplasty of the occluded RCA, apparently patient did have 2 stents placement in the RCA and he was discharged from [facility] and patient has been getting more at all with poor appetite and his having some issues with his left knee not able to walk on the knee associated with knee buckling and locking patient had lost his appetite, he ended up coming to the emergency department at [facility] today after his daughter contacted by staff and they directed her to go to the emergency department for evaluation of possible septic knee, patient was seen and evaluated in the ER he had temperature and his white count were normal, her d-dimer was elevated his troponin was slightly elevated as well, patient was started on IV antibiotic in the form of vancomycin as well as Zosyn, blood cultures will be obtained, aspiration of the left knee showed cloudy fluid the result of which still pending at the time of dictation orthopedic surgery consultation was obtained from Dr. Choi, patient will be admitted to hospital for further evaluation, his platelet count were down to 62,000 and his lactic acid was elevated suggestive of sepsis. 08/06: Patient is seen today in follow-up. COVID-[address] angios the chest showed no large central pulmonary emboli. Motion artifact of the bilateral lungs without focal airspace opacities. Fatty liver. Venous ultrasound was negative for DVT of the left lower extremity. Patient's home medication list needs to be updated. Will add and Lantus 18 units at bedtime, Plavix 75 mg daily, Januvia. Patient's nurse was updated that the patient's medication list needs to be confirmed. He has been seen by Dr. Choi and plan for I&D of the left knee today. Patient is currently on vancomycin IV and Zosyn. Patient has been afebrile, heart rate 104, respiratory rate 26, blood pressure 125/65, pulse ox 96% on room air. Repeat lactic acid is 8.3. Repeat troponin 3.790. WBC 7.7, hemoglobin 10.6. Sodium 128, potassium 3.5, chloride 98, CO2 18, BUN 25 and creatinine 1.62. Blood sugar 317. Calcium 7.6. Magnesium 1.8. Total bilirubin 3.1, AST 85, ALT 55, alkaline phosphatase 37. Fluid studies reveal RBC 3600, nucleated cells 62,000, polynuclear WBCs 85, and mononuclear WBCs 15, glucose 104, total protein 3330. Crystals pending. Consult also in place with cardiology and Dr. Strickland. 08/07: Has been afebrile, heart rate 103, blood pressure 116/61, pulse ox 96% on 2 L nasal cannula. Repeat troponins were 4.390 and 5.6. Blood sugars are running between 178 and 222. Blood culture is presumptive staph aureus on 2 specimens and fluid culture from the knee is also presumptive staph aureus. Repeat blood culture will be ordered today. Fluid analysis showed no crystals. Patient has been seen by cardiology and cleared for surgery. Patient subsequently underwent incision and drainage of the left total knee. The patient has also been followed by Dr. Chacon 8 and covered with antibiotics on Kefzol 2 g IV piggyback every 8 hours. Repeat blood work reveals WBC of 8.4, hemoglobin 9.8, platelet count 75. Sodium 131, potassium 3.9, chloride 99, CO2 19, BUN 43 and creatinine 3.02. Blood sugars are running between 178 and 222. Total bilirubin 1.7, AST 152, ALT 59. Troponin is 7.420. Radiology continues to follow. Diovan will be discontinued and consult placed with nephrology. REVIEW OF SYSTEMS: Constitutional: Denies fever, denies chills, no night sweats, fatigue , lethargy and sleeping and weight loss. HEENT: No headache. No blurred vision or double vision, no loss of vision. No loss of Hearing, no ringing in the ears, no dizziness. No nasal drainage or congestion. No epistaxis. No sore throat. Respiratory: No shortness of breath, no cough, no sputum production. No wheezing. Reports dyspnea with activity. Cardiovascular: No chest pain, no lower extremity edema. No palpitations. No paroxysmal nocturnal dyspnea. No orthopnea. No lightheadedness or dizziness. No syncopal episodes. Gastrointestinal: Reports no abdominal pain. No nausea, vomiting. No diarrhea. No constipation. No bloody or tarry stools reports loss of appetite. Genitourinary: No dysuria, increased frequency, urgency. No urinary retention. Musculoskeletal: Positive for myalgias. positive for muscle weakness, Positive for gait dysfunction, no frequent falls, positive for left knee pain, locking, positive for low back pain . Integumentary: No wounds, no lesions. No rash or pruritus. Positive for bruising. No change in hair or nails. Neurologic: No aphasia. No facial droop. No change in mentation. No head injury. No headache. No paralysis. No paresthesia. Psychiatric: No depression. No anxiety. No mood swings. Endocrine: No abnormal blood sugars. No weight change. PHYSICAL EXAMINATION: General: This is 75-year-old male who appears to be moderately ill laying down in bed in no distress. HEENT: Head is atraumatic, normocephalic, pupils were equal round reactive to light and recommendation, extraocular muscle movement were intact, sclera nonicteric, conjunctivae were pale, mucous membranes of the mouth are somewhat dry. Neck: Supple, no JVP, normal carotid upstroke bilaterally, no lymphadenopathy. Chest: Decreased breath sounds at the bases, few rhonchi, no extremity wheezes, no chest wall tenderness, no intercostal retractions. Heart: First heart sound is normal, second heart sound is normal there is systolic ejection murmur 2/6 left sternal border. Abdomen: Soft, nontender, nondistended, positive bowel sounds, no hepatosplenomegaly Extremities: There is no edema no calf tenderness DP + 1 bilaterally, left knee mildly tender to palpation with slightly swollen. Neurologic examination: Patient is awake alert and oriented X3, cranial nerves II-12 appear grossly intact, muscle power were 5 out of 5 in upper extremities and 5 out of 5 in bilateral lower extremities, deep tendon reflexes normal bilaterally. ASSESSMENT AND PLAN: 1. Septic arthritis of the left knee. Initial blood culture and fluid culture positive for staph aureus. Repeat blood culture ordered. Continue IV antibiotic in the form of kefzol per Dr. Strickland, orthopedic surgery consultation with Dr. Choi appreciated, status post I&D. 2. Lactic acidosis due to sepsis. Continue IV fluid resuscitation the form of normal saline. 3. Thrombocytopenia area and likely related to sepsis hold heparin, continue to monitor the patient very closely, repeat the CBC in the next 24 hours. 4. Recent left heart catheterization with PCI of the RCA on 07/30/2020 Continue patient on aspirin 81 g once every day, Plavix 75 mg orally once every day, atenolol 50 mg once every day, atorvastatin 80 mg once every day, Imdur 60 g orally once every day. Cardiology consult appreciated. 5. Elevated troponin. Likely related to a prior intervention. Cardiology is following. Continue aspirin 81 mg daily, atorvastatin 80 mg at bedtime, Plavix 75 mg daily 6. Recent inferior wall ST elevation [place]. Continue treatment as in paragraph #4. 7. Acute kidney injury. Diovan discontinued. Nephrology consult. 8. Hypertension and hypertensive cardiovascular disease. Discontinue Diovan 320/12.5 mg once every day, continue atenolol 50 mg orally once every day, continue to monitor the patient blood pressure very closely. 9. Hyperlipidemia. Continue patient on atorvastatin 80 mg orally once every day. 10. Diabetes mellitus type 2. Start the patient on sliding scale insulin along with Lantus 22 units at bedtime, continue Tradjenta 5 mg orally once every day. 11. History of prostate cance status post rotation. Stable at this time. 12. 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 Continue current pain management. 13. DVT prophylaxis. Bilateral knee-high ADAIR hose. Avoid heparin for now. 14. GI prophylaxis. Protonix 40 mg orally once every day. r 15. Patient is full code. DISCHARGE PLAN: Home Impression and plan of care have been directed as dictated by the signing physician. Padma Monsalve nurse practitioner acting as scribe for signing physician. Objective - Vital Signs Vital signs: Vital Signs Temp 98.6 F 08/07/20 04:00 Pulse 103 H 08/07/20 04:00 Resp 20 08/07/20 04:00 BP 116/61 08/07/20 04:00 Pulse Ox 96 08/07/20 04:00 Intake & Output 08/06/20 08/07/20 08/07/20 18:59 06:59 18:59 Intake Total 601 0 Output Total 100 350 Balance 501 -350 Weight 113.398 kg 115 kg Intake: IV 601 0 Output: Drainage 40 Left Knee 40 Urine 310 Estimated Blood Loss 100 Other: Voiding Method Urinal # Voids 1 - Labs CBC & Chem 7: 08/07/20 08:42 08/07/20 08:42 Labs: Abnormal Lab Results - Last 24 Hours (Table) 08/05/20 08/06/20 08/06/20 Range/Units 16:47 03:48 08:13 Plt Count 62 L (150-450) k/uL Lymphocytes # (Manual) 0.15 L (1.0-4.8) k/uL Metamyelocytes # (Man) 0.08 H (0) k/uL Myelocytes # (Manual) 0.08 H (0) k/uL POC Glucose (mg/dL) (75-99) mg/dL Plasma Lactic Acid Rob 4.3 H* (0.7-2.0) mmol/L Troponin I (0.000-0.034) ng/mL Synovial Crystals Seen A (None Seen) 08/06/20 08/06/20 08/06/20 Range/Units 08:13 11:40 12:23 Plt Count (150-450) k/uL Lymphocytes # (Manual) (1.0-4.8) k/uL Metamyelocytes # (Man) (0) k/uL Myelocytes # (Manual) (0) k/uL POC Glucose (mg/dL) 248 H (75-99) mg/dL Plasma Lactic Acid Rob (0.7-2.0) mmol/L Troponin I 3.790 H* 4.390 H* (0.000-0.034) ng/mL Synovial Crystals (None Seen) 08/06/20 08/06/20 08/06/20 Range/Units 15:20 16:05 20:28 Plt Count (150-450) k/uL Lymphocytes # (Manual) (1.0-4.8) k/uL Metamyelocytes # (Man) (0) k/uL Myelocytes # (Manual) (0) k/uL POC Glucose (mg/dL) 190 H 178 H (75-99) mg/dL Plasma Lactic Acid Rob (0.7-2.0) mmol/L Troponin I 5.600 H* (0.000-0.034) ng/mL Synovial Crystals (None Seen) 08/07/20 Range/Units 06:19 Plt Count (150-450) k/uL Lymphocytes # (Manual) (1.0-4.8) k/uL Metamyelocytes # (Man) (0) k/uL Myelocytes # (Manual) (0) k/uL POC Glucose (mg/dL) 222 H (75-99) mg/dL Plasma Lactic Acid Rob (0.7-2.0) mmol/L Troponin I (0.000-0.034) ng/mL Synovial Crystals (None Seen) Microbiology - Last 24 Hours (Table) 08/06/20 18:00 Anaerobic Culture - Preliminary Knee - Left 08/06/20 18:00 Anaerobic Culture - Preliminary Knee - Left 08/06/20 18:00 Wound Culture - Preliminary Knee - Left 08/06/20 18:00 Wound Culture - Preliminary Knee - Left 08/05/20 15:25 Blood Culture Gram Stain - Preliminary Blood Blood Culture - Preliminary Presumptive Staph aureus 08/05/20 16:47 Gram Stain - Preliminary Knee - Left Body Fluid Culture - Preliminary Presumptive Staph aureus 08/05/20 15:46 Blood Culture Gram Stain - Preliminary Blood Blood Culture - Preliminary Staphylococcus aureus 08/05/20 15:25 Blood Culture - Final Blood 08/05/20 15:46 Blood Culture - Final Blood
[2020-08-07 16:41] LABS: Glucose,Whole Blood 201 mg/dL (75-99)
[2020-08-07 20:34] LABS: Glucose,Whole Blood 165 mg/dL (75-99)
[2020-08-07] MEDS: INSULIN DETEMIR (LEVEMIR) 100 UNIT/ML SYR SQ SCH (21:02)
--- NOTE | 2020-08-07 23:58 | PN ---
PROGRESS NOTE DATE OF SERVICE: 08/07/2020 REASON FOR FOLLOWUP: MSSA bacteremia secondary to left knee septic arthritis. INTERVAL HISTORY: Patient did spike another fever this evening of 101 Fahrenheit. He patient did mention he was feeling slightly better when he was seen on rounds this afternoon. Denies any headache. No chest pain, shortness of breath or cough. No abdominal pain. No diarrhea. PHYSICAL EXAMINATION: Blood pressure is 111/67, pulse of 90, temperature 98.5. He is 93% on room air. General description is an elderly male lying in bed in no distress. Respiratory system: Unlabored breathing, clear to auscultation anteriorly. Heart S1, S2. Regular rate and rhythm. ABDOMEN: Soft, no tenderness. EXTREMITIES: No edema of the feet. LABS: Hemoglobin is 9.1, white count 8.4. Troponins are elevated. Creatinine 3.02. DIAGNOSTIC IMPRESSION AND PLAN: Patient with MSSA bacteremia secondary to left knee septic arthritis status post cough and antibiotic spacer placement. Patient is covered with cefazolin. Continue blood culture to document clearance of his bacteremia and we will monitor clinical course closely. Continue supportive care. MMODL / IJN: [id number] /
[2020-08-08] MEDS: SODIUM CHLORIDE 0.9% 1,000 ML IV SCH ×3 (00:52→15:37)
[2020-08-08] MEDS: HYDROmorphone 0.5 MG/0.5 ML SYRINGE IVP PRN ×5 (00:53→22:38)
[2020-08-08 06:02] LABS: Glucose,Whole Blood 145 mg/dL (75-99)
[2020-08-08] MEDS: PANTOPRAZOLE 40 MG TABLET PO SCH (06:29)
[2020-08-08] MEDS: INSULIN ASPART (NovoLOG) 100 UNIT/ML VIAL SQ SCH ×4 (06:29→20:54)
[2020-08-08] MEDS: ISOSORBIDE MONONITRATE ER 60 MG TAB.ER.24H PO SCH (08:23)
[2020-08-08] MEDS: ATORVASTATIN 80 MG TAB PO SCH (08:24)
[2020-08-08] MEDS: ASPIRIN 81 MG PO SCH (08:24)
[2020-08-08] MEDS: CLOPIDOGREL 75 MG TAB PO SCH (08:24)
[2020-08-08] MEDS: atenoloL 50 MG TAB PO SCH (08:24)
[2020-08-08] MEDS: LINAGLIPTIN 5 MG TABLET PO SCH (08:25)
[2020-08-08] MEDS: MAGNESIUM OXIDE 400 MG TAB PO SCH (08:25)
--- NOTE | 2020-08-08 09:03 | P.PN ---
Subjective Progress Note Date: 08/08/20 Principal diagnosis: Septic arthritis left knee. Bacteremia. Neck pain. Bilateral upper extremity weakness. History of total left knee arthroplasty. Status post cardiac catheterization. This is a 75-year-old gentleman that presented to emergency room on 08/05/2020 with new onset left knee pain. The pain had become worse over the past week or so since he's had a recent cardiac catheterization. The knee was aspirated by the emergency room department and purulent fluid was removed with high nucleated cell count in the fluid. Patient also has positive blood cultures. After discussing the surgical and nonsurgical treatment options with him at length, it was recommended an incision and drainage of the knee with retention of the implants. The patient was taken to the operating room on 08/06/2020 for I&D of the left knee. Today is postoperative day #2. The patient has no new complaints or concerns regarding the knee. He does complain of neck pain which is getting p rogressively worse. Nursing is unable to get him sitting up or up in a chair today. He is also having some mild mental status changes. Intraoperative cultures the left knee are showing presumptive staph aureus. Repeat blood cultures are positive. He continues to have significant amount of drainage in the Hemovac. Objective - Vital Signs Vital signs: Vital Signs Temp 97.4 F L 08/08/20 07:38 Pulse 72 08/08/20 07:38 Resp 20 08/08/20 07:38 BP 115/72 08/08/20 07:38 Pulse Ox 100 08/08/20 07:38 Intake & Output 08/07/20 08/08/20 08/08/20 18:59 06:59 18:59 Intake Total 590 20 Output Total 1350 460 Balance -760 -440 Weight 114 kg Intake: IV 310 20 Invasive Line 1 20 Invasive Line 3 20 20 Sodium Chloride 0.9% 1, 220 000 ml @ 20 mls/hr IV . Q24H LAURA Rx#:[id number] ceFAZolin 2 gm In Sodium 50 Chloride 0.9% 50 ml @ 100 mls/hr IVPB Q8H LAURA Rx#: [id number] Oral 280 Output: Drainage 50 60 Left Knee 50 60 Urine 1300 400 Uretheral (Shelley) 600 400 Other: Voiding Method Indwelling Catheter Indwelling Catheter - Exam This is a pleasant 75-year-old male in no acute distress. He is alert with some confusion. His daughter is present at bedside. He is having difficulty completing sentences. He did just receive a dose of Dilaudid. He is lying in bed with a cervical collar in place. Exam of his upper extremities reveals weakness to bilateral arms. 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 Exam of his left lower extremity reveals that his postoperative dressing and Hemovac are intact. He has full foot and ankle motion without difficulty or pain. Neurovascular status to the lower extremity is intact. - Labs CBC & Chem 7: 08/07/20 08:42 08/07/20 08:42 Labs: Abnormal Lab Results - Last 24 Hours (Table) 08/07/20 08/07/20 08/07/20 Range/Units 08:42 08:42 08:42 RBC 3.06 L (4.30-5.90) m/uL Hgb 9.8 L (13.0-17.5) gm/dL Hct 30.1 L (39.0-53.0) % Plt Count 75 L (150-450) k/uL Sodium 131 L (137-145) mmol/L Carbon Dioxide 19 L (22-30) mmol/L BUN 43 H (9-20) mg/dL Creatinine 3.02 H (0.66-1.25) mg/dL Glucose 228 H (74-99) mg/dL POC Glucose (mg/dL) (75-99) mg/dL Calcium 7.8 L (8.4-10.2) mg/dL Total Bilirubin 1.7 H (0.2-1.3) mg/dL AST 152 H (17-59) U/L ALT 59 H (4-49) U/L Troponin I 7.420 H* (0.000-0.034) ng/mL Total Protein 5.1 L (6.3-8.2) g/dL Albumin 2.8 L (3.5-5.0) g/dL 08/07/20 08/07/20 08/07/20 Range/Units 11:42 12:26 16:40 RBC (4.30-5.90) m/uL Hgb (13.0-17.5) gm/dL Hct (39.0-53.0) % Plt Count (150-450) k/uL Sodium (137-145) mmol/L Carbon Dioxide (22-30) mmol/L BUN (9-20) mg/dL Creatinine (0.66-1.25) mg/dL Glucose (74-99) mg/dL POC Glucose (mg/dL) 219 H 201 H (75-99) mg/dL Calcium (8.4-10.2) mg/dL Total Bilirubin (0.2-1.3) mg/dL AST (17-59) U/L ALT (4-49) U/L Troponin I 6.160 H* (0.000-0.034) ng/mL Total Protein (6.3-8.2) g/dL Albumin (3.5-5.0) g/dL 08/07/20 08/07/20 08/08/20 Range/Units 17:35 20:32 06:01 RBC (4.30-5.90) m/uL Hgb (13.0-17.5) gm/dL Hct (39.0-53.0) % Plt Count (150-450) k/uL Sodium (137-145) mmol/L Carbon Dioxide (22-30) mmol/L BUN (9-20) mg/dL Creatinine (0.66-1.25) mg/dL Glucose (74-99) mg/dL POC Glucose (mg/dL) 165 H 145 H (75-99) mg/dL Calcium (8.4-10.2) mg/dL Total Bilirubin (0.2-1.3) mg/dL AST (17-59) U/L ALT (4-49) U/L Troponin I 6.280 H* (0.000-0.034) ng/mL Total Protein (6.3-8.2) g/dL Albumin (3.5-5.0) g/dL Microbiology - Last 24 Hours (Table) 08/07/20 08:42 Blood Culture - Final Blood 08/05/20 15:25 Blood Culture Gram Stain - Final Blood Blood Culture - Final Staphylococcus aureus 08/05/20 15:46 Blood Culture Gram Stain - Final Blood Blood Culture - Final Staphylococcus aureus 08/06/20 18:00 Gram Stain - Preliminary Knee - Left Wound Culture - Preliminary Presumptive Staph aureus 08/06/20 18:00 Gram Stain - Preliminary Knee - Left Wound Culture - Preliminary Presumptive Staph aureus 08/05/20 16:47 Gram Stain - Preliminary Knee - Left Body Fluid Culture - Preliminary Staphylococcus aureus Assessment and Plan (1) Infection of total left knee replacement Current Visit: Yes Status: Acute Code(s): T84.54XA - INFECT/INFLM REACTION DUE TO INTERNAL LEFT KNEE PROSTH, INIT SNOMED Code(s): 850960082 (2) Left knee pain Current Visit: Yes Status: Acute Code(s): M25.562 - PAIN IN LEFT KNEE SNOMED Code(s): 6190096778 (3) Septic arthritis Current Visit: Yes Status: Acute Code(s): M00.9 - PYOGENIC ARTHRITIS, UNSPECIFIED SNOMED Code(s): 828252945 (4) S/P total knee arthroplasty Current Visit: No Status: Acute Code(s): Z96.659 - PRESENCE OF UNSPECIFIED A RTIFICIAL KNEE JOINT SNOMED Code(s): 9546200949114 (5) Neck pain Current Visit: Yes Status: Acute Code(s): M54.2 - CERVICALGIA SNOMED Code(s): 12185432 (6) Weakness of both upper extremities Current Visit: Yes Status: Acute Code(s): R29.898 - OTH SYMPTOMS AND SIGNS INVOLVING THE MUSCULOSKELETAL SYSTEM SNOMED Code(s): 64289238743057881 Plan: The clinical findings are discussed with the patient. We will leave his dressing and Hemovac intact today. He may be weightbearing as tolerated. I benavides ve discussed the case with Dr. Royoff would like to consult neurology and orthosis spine surgery for evaluation. I will order MRI of the cervical spine with contrast today. We'll continue to follow and await further recommendations. Plan dressing change of the left knee tomorrow with possible r emoval of Hemovac.
[2020-08-08 09:06] LABS: Basophils % (A) 0 %; Eosinophils % (A) 0 %; HCT 27.5 % (39.0-53.0); HGB 9.2 gm/dL (13.0-17.5); Lymphocytes # (A) 0.5 k/uL (1.0-4.8); Lymphocytes % (A) 6 %; MCH 32.4 pg (25.0-35.0); MCHC 33.6 g/dL (31.0-37.0); MCV 96.4 fL (80.0-100.0); Mean Platelet Volume 9.2; Monocytes # (A) 0.3 k/uL (0-1.0); Monocytes % (A) 4 %; Neutrophils % (A) 88 %; Platelet Count 103 k/uL (150-450); RBC 2.85 m/uL (4.30-5.90)
[2020-08-08 09:22] LABS: Albumin 2.7 g/dL (3.5-5.0); Calcium 7.7 mg/dL (8.4-10.2); Magnesium 2.6 mg/dL (1.6-2.3); Potassium 3.9 mmol/L (3.5-5.1); Total Bilirubin 0.9 mg/dL (0.2-1.3); Total Protein 5.2 g/dL (6.3-8.2)
[2020-08-08] MEDS: ALBUTEROL HFA INHALER INHALATION SCH (09:40)
--- NOTE | 2020-08-08 10:26 | P.CNOR ---
History of Present Illness - [facility] Consult date: 08/08/20 Consult reason: neck pain History of present illness: Patient is a 75-year-old male who is seen and examined today at bedside. Patient is currently admitted to the hospital due to septic arthritis at his left knee and bacteremia and sepsis. The patient has history of total knee replacement on the left in 2018. That had gone fairly well for him. He also has a history of low back pain. He has cardiac issues and was evaluated with cardiology about 2 weeks ago and underwent cardiac catheterization on July 27 here in [place]. He required further attention and was transferred to [facility] and underwent further cardiac catheterization with placement of stents. A couple of days later he developed pain and swelling in his left knee and presented here. His found have septic arthritis at his left knee and underwent irrigation and debridement and excisional debridement of left septic knee with Dr. Choi 2 days ago. The patient has been having some increasing pain at his neck and back yesterday. He has a global feeling of weakness in his upper extremities and lower extremities. He feels he is not making significant progress and was having some concerns regards to his neck pain. According to staff the pain was extending down to the middle of his back and his lower back as well. The patient denies any focal neurologic change or loss but he says that he feels weak all over. He feels most weak at his upper extremities and his left knee. He says that he has chronic history of pain in his lower back and has been seen in the past and had treatment for his lower back in the past but denies any specific treatment at his neck or upper extremities. Review of Systems As stated per HPI. He currently denies any shortness of breath. He has global malaise. He denies any focal weakness in his upper extremity is but feels globally weak in his upper and lower extremities. His primary pain is at his left knee. Though he also says he has pain at his neck when he tries to move. Past Medical History Past Medical History: Atrial Fibrillation, Coronary Artery Disease (CAD), Cancer, Chest Pain / Angina, Diabetes Mellitus, GERD/Reflux, Hyperlipidemia, Hypertension, Osteoarthritis (OA), Prostate Disorder Additional Past Medical History / Comment(s): 5 Herniated discs in neck causing headaches & numbness in arm and right lower back and pain and right leg pain. Hx 4 fx ribs, current Prostate Cancer- last radiation tx Dec 7-2017 had total of 44 tx. occ constipation, Last Myocardial Infarction Date:: UNKOWN History of Any Multi-Drug Resistant Organisms: None Reported Past Surgical History: Adenoidectomy, Heart Catheterization, Heart Catheterization With Stent, Joint Replacement, Orthopedic Surgery, Tonsillectomy Additional Past Surgical History / Comment(s): PROSTATE BX., LT. KNEE ARTHROSCOPY X 2, CERVICAL FUSIONS, COLONOSCOPY, ÁNGEL. CATARTACTS.Pain Procedures , rt radio frequency procedures. , total 3 heart stents, hemorrhoidectomy,heart cath August 2017-lt knee replacement. Stent replacement Past Anesthesia/Blood Transfusion Reactions: No Reported Reaction Additional Past Anesthesia/Blood Transfusion Reaction / Comm: doesn't like enclosed tight spaces Date of Last Stent Placement:: 04/24/17 Past Psychological History: No Psychological Hx Reported Smoking Status: Former smoker Past Alcohol Use History: None Reported Past Drug Use History: None Reported - Past Family History Father Additional Family Medical History / Comment(s): Father at age 49 from coronary artery disease. Brother(s) Additional Family Medical History / Comment(s): Patient has one brother with history of smoking and no other major medical problems. Patient does not have any sisters. Daughter(s) Additional Family Medical History / Comment(s): He has one daughter alive in [place] with no major medical problems. Patient has one daughter with history of muscular dystrophy and of pneumonia. Son(s) Family Medical History: No Reported History Additional Family Medical History / Comment(s): Patient has one son with no major medical problems. Mother Family Medical History: Cancer Additional Family Medical History / Comment(s): Mother at age 81 from uterine cancer with metastatic disease. Medications and Allergies Home Medications Medication Instructions Recorded Confirmed Type Atorvastatin Calcium [Lipitor] 80 mg PO DAILY@0900 11/01/14 08/05/20 History Valsartan/Hydrochlorothiazide 1 tab PO DAILY@1800 12/13/19 08/05/20 History [Valsartan-Hctz 320-12.5 mg Tab] Aspirin [[place] Aspirin EC] 81 mg PO DAILY@0900 08/05/20 08/05/20 History Atenolol [Tenormin] 50 mg PO DAILY@89908/05/20 08/05/20 History Isosorbide Mononitrate ER [Imdur] 60 mg PO DAILY@0900 08/05/20 08/05/20 History Allergies Allergy/AdvReac Type Severity Reaction Status Date / Time No Known Allergies Allergy Verified 08/05/20 17:38 Physical Examination Osteopathic Statement: *. No significant issues noted on an osteopathic structural exam other than those noted in the History and Physical/Consult. - C Spine: dermatomal strength & reflexes bilateral Shoulder strength: flexion: 5/5 (His bilateral upper extremities there is no obvious focal deficit. His negative Tai's. No clonus. Globally he has able to move his shoulders elbows wrists and fingers with adequate strength. His neck is somewhat tender posteriorly and has significant paravertebral spasm.) Shoulder strength: extension: 5/5 (His neck has some paravertebral spasm and strain with pain with rotation and flexion and extension and axial loading) Results There is a computed tomography scan of his chest where his thoracic spine is partially visualized. There is some ankylosis and degenerative changes without evidence of fracture or instability - Labs Labs: Abnormal Lab Results - Last 24 Hours (Table) 08/07/20 08/07/20 08/07/20 Range/Units 08:42 08:42 08:42 RBC 3.06 L (4.30-5.90) m/uL Hgb 9.8 L (13.0-17.5) gm/dL Hct 30.1 L (39.0-53.0) % Plt Count 75 L (150-450) k/uL Lymphocytes # (1.0-4.8) k/uL Sodium 131 L (137-145) mmol/L Carbon Dioxide 19 L (22-30) mmol/L BUN 43 H (9-20) mg/dL Creatinine 3.02 H (0.66-1.25) mg/dL Glucose 228 H (74-99) mg/dL POC Glucose (mg/dL) (75-99) mg/dL Calcium 7.8 L (8.4-10.2) mg/dL Magnesium (1.6-2.3) mg/dL Total Bilirubin 1.7 H (0.2-1.3) mg/dL AST 152 H (17-59) U/L ALT 59 H (4-49) U/L Troponin I 7.420 H* (0.000-0.034) ng/mL Total Protein 5.1 L (6.3-8.2) g/dL Albumin 2.8 L (3.5-5.0) g/dL 08/07/20 08/07/20 08/07/20 Range/Units 11:42 12:26 16:40 RBC (4.30-5.90) m/uL Hgb (13.0-17.5) gm/dL Hct (39.0-53.0) % Plt Count (150-450) k/uL Lymphocytes # (1.0-4.8) k/uL Sodium (137-145) mmol/L Carbon Dioxide (22-30) mmol/L BUN (9-20) mg/dL Creatinine (0.66-1.25) mg/dL Glucose (74-99) mg/dL POC Glucose (mg/dL) 219 H 201 H (75-99) mg/dL Calcium (8.4-10.2) mg/dL Magnesium (1.6-2.3) mg/dL Total Bilirubin (0.2-1.3) mg/dL AST (17-59) U/L ALT (4-49) U/L Troponin I 6.160 H* (0.000-0.034) ng/mL Total Protein (6.3-8.2) g/dL Albumin (3.5-5.0) g/dL 08/07/20 08/07/20 08/08/20 Range/Units 17:35 20:32 06:01 RBC (4.30-5.90) m/uL Hgb (13.0-17.5) gm/dL Hct (39.0-53.0) % Plt Count (150-450) k/uL Lymphocytes # (1.0-4.8) k/uL Sodium (137-145) mmol/L Carbon Dioxide (22-30) mmol/L BUN (9-20) mg/dL Creatinine (0.66-1.25) mg/dL Glucose (74-99) mg/dL POC Glucose (mg/dL) 165 H 145 H (75-99) mg/dL Calcium (8.4-10.2) mg/dL Magnesium (1.6-2.3) mg/dL Total Bilirubin (0.2-1.3) mg/dL AST (17-59) U/L ALT (4-49) U/L Troponin I 6.280 H* (0.000-0.034) ng/mL Total Protein (6.3-8.2) g/dL Albumin (3.5-5.0) g/dL 08/08/20 08/08/20 Range/Units 08: 08:21 RBC 2.85 L (4.30-5.90) m/uL Hgb 9.2 L (13.0-17.5) gm/dL Hct 27.5 L (39.0-53.0) % Plt Count 103 L (150-450) k/uL Lymphocytes # 0.5 L (1.0-4.8) k/uL Sodium 132 L (137-145) mmol/L Carbon Dioxide 17 L (22-30) mmol/L BUN 57 H (9-20) mg/dL Creatinine 3.21 H (0.66-1.25) mg/dL Glucose 127 H (74-99) mg/dL POC Glucose (mg/dL) (75-99) mg/dL Calcium 7.7 L (8.4-10.2) mg/dL Magnesium 2.6 H (1.6-2.3) mg/dL Total Bilirubin (0.2-1.3) mg/dL AST 178 H (17-59) U/L ALT (4-49) U/L Troponin I (0.000-0.034) ng/mL Total Protein 5.2 L (6.3-8.2) g/dL Albumin 2.7 L (3.5-5.0) g/dL Microbiology - Last 24 Hours (Table) 08/07/20 08:42 Blood Culture Gram Stain - Preliminary Blood 08/07/20 08:42 Blood Culture - Final Blood 08/05/20 15:25 Blood Culture Gram Stain - Final Blood Blood Culture - Final Staphylococcus aureus 08/05/20 15:46 Blood Culture Gram Stain - Final Blood Blood Culture - Final Staphylococcus aureus 08/06/20 18:00 Gram Stain - Preliminary Knee - Left Wound Culture - Preliminary Presumptive Staph aureus 08/06/20 18:00 Gram Stain - Preliminary Knee - Left Wound Culture - Preliminary Presumptive Staph aureus 08/05/20 16:47 Gram Stain - Preliminary Knee - Left Body Fluid Culture - Preliminary Staphylococcus aureus H & H 08/05/20 08/06/20 08/07/20 Range/Units 15:47 03:48 08:42 Hgb 10.5 L D 10.6 L 9.8 L (13.0-17.5) gm/dL Hct 30.8 L 29.4 L 30.1 L (39.0-53.0) % 08/08/20 Range/Units 08:21 Hgb 9.2 L (13.0-17.5) gm/dL Hct 27.5 L (39.0-53.0) % Coagulation 08/05/20 Range/Units 15:46 INR 1.1 (<1.2) Result Diagrams: 08/08/20 08:21 08/08/20 08:21 Assessment and Plan Assessment: Left knee septic arthritis Bacteremia and sepsis Recent cardiac catheterization with stenting Cervical and thoracic and lumbar spondylosis Neck pain Chronic low back pain Global weakness at the upper extremities without discrete focal deficit Plan: Left knee septic arthritis Bacteremia and sepsis Recent cardiac catheterization with stenting Cervical and thoracic and lumbar spondylosis Neck pain Chronic low back pain Global weakness at the upper extremities without discrete focal deficit The patient has global weakness with significant neck pain without discrete focal deficit. Physical to determine the exact nature of his overall weakness as he appears to be bacteremia with sepsis. He has had appropriate irrigation a nd debridement of his left knee. With his neck pain and upper extremity sensations I think that it is useful to get an stat MRI of his cervical spine to further evaluate possibility of infectious process at his spine. That has been ordered. I don't see any obvious instability in his thoracic spine is okay for him to try to sit up and mobilized if he is comfortable to do so. We'll follow closely in regards to his imaging studies.
--- NOTE | 2020-08-08 11:27 | MR ---
EXAMINATION TYPE: MR cervical spine wo/w con DATE OF EXAM: 08/08/2020 COMPARISON: Prior exam dated 08/31/2014 HISTORY: [place] pain in neck, upper arms and lower body. Upper extremity weakness, sepsis. CA histo ry TECHNIQUE: Multiplanar, multisequence images of the cervical spine were acquired utilizing 5.5 mL intravenous Ga davist gadolinium contrast. Diffusion weighted imaging was performed. There is extensive motion on the exam. Prior fusion is present C5-6. There is multilevel spondylosi s. Loss of disc height signal is present at intervertebral levels especially C6-7, C7-T1 greater than C3-4, C4-5. Endplate discogenic marrow signal changes are present. No significant interval change in the spinal stenosis seen on prior exam, greatest at C3-4. Suspect a spinal curvature may be present in the thoracic spine C2-C3: Left-sided foraminal encroachment is present due to uncovertebral joint hypertrophy and facet arthropathy. No definite disc herniation. C3-C4: There is a posterior disc herniation present at C3-4 causing anterior mass effect on the theca l sac, possibly contact with the cervical work. Facet arthropathy changes are present, suspect there is some mild foraminal encroachment due to uncovertebral joint hypertrophy. C4-C5: Right-sided foraminal encroachment is present due to extension of endplate disc complex toward s the right neural foramen, there is anterolateral mass effect on the thecal sac. C5-C6: Disc space is obliterated due to effusion. Suspect there is bilateral foraminal encroachment. C6-C7: Posterior extension endplate disc complex causes mild anterior mass effect on the thecal sac. Bilateral foraminal encroachment is present due to uncovertebral joint hypertrophy and facet arthropa thy. C7-T1: Bilateral foraminal encroachment is present due to facet arthropathy, uncovertebral joint hype rtrophy. Posterior extension endplate disc complex causes mild anterior mass effect on the thecal sac . Cervical segments are preserved height. There is normal alignment. Difficult to exclude spinal cord signal changes. Craniovertebral junction relationships are within normal limits. IMPRESSION: Exam is limited. There is multilevel foraminal encroachment, facet arthropathy, degenerative disc dis ease, postop changes. Limitations as described.
[2020-08-08 11:47] LABS: Glucose,Whole Blood 145 mg/dL (75-99)
--- NOTE | 2020-08-08 11:50 | XR ---
EXAMINATION TYPE: XR chest 1V DATE OF EXAM: 08/08/2020 COMPARISON: Chest x-ray and CT dated 08/05/2020 HISTORY: Dyspnea TECHNIQUE: Single frontal view of the chest is obtained. FINDINGS: Lung volumes are low and the patient is rotated. Widened mediastinum may be technical, the heart again appears enlarged. There is no evident pneumothorax or pleural effusion. Patchy basilar d ensity is present. IMPRESSION: Hypoventilatory exam, difficult to exclude pneumonia versus atelectasis.
--- NOTE | 2020-08-08 11:52 | XR ---
Multiple view abdomen HISTORY: Abdominal distention and dyspnea 3 views the abdomen submitted. Correlation to chest x-ray same date at same time. There is a gas-distended stomach noted. No evident pneumoperitoneum or bowel obstruction. Air-filled loops of bowel are present without distention. There is a spinal curvature, degenerative disc changes are present in the visualized spine. Postop change noted to the right hip. Probable vascular calcifi cations present within the pelvis, difficult to exclude a distal ureteral calcification. IMPRESSION: Correlate for possible partial gastric outlet obstruction, gas-distended stomach is indet erminate. A [place] level critical message alert has been initiated for German Astudillo MD via the [facility] Results System on 08/08/2020 11:50 AM. This message alert has been sent to German Astudillo MD vi a the preferences provided by the clinician for the receipt of Radiology Critical Findings. Message I D [id number].
[2020-08-08] MEDS: IPRATROPIUM-ALBUTEROL 3 ML NEB INHALATION SCH ×3 (12:14→20:11)
--- NOTE | 2020-08-08 13:06 | US ---
EXAMINATION TYPE: US kidneys/renal and bladder DATE OF EXAM: 08/08/2020 COMPARISON: US, CT lumbar CLINICAL HISTORY: NIMCO.. Sepsis EXAM MEASUREMENTS: Right Kidney: 12.7 x 6.5 x 7.2 cm Left Kidney: 12.6 x 6.3 x 7.6 cm Post Void Residual Volume: Not assessed on inpatient with indwelling bladder catheter Right Kidney: superior cortical cyst = 1.6 x1.3 x 1.5cm; mid cortical cyst seen = 1.8x 18 x 1.6cm Left Kidney: superior cortical cyst seen = 1.7 x 1.5 x 1.6cm Bladder: not seen There is no evidence for hydronephrosis at this point in time. No nephrolithiasis is seen. Cortical medullary differentiation is maintained. No ascites is seen in large abdomen. IMPRESSION: There are some limitations to the exam. Simple cysts within the kidneys.
--- NOTE | 2020-08-08 15:06 | P.PN ---
Subjective HISTORY OF PRESENT ILLNESS: This is a 75-year-old male with a past medical history significant for hypertension, hyperlipidemia, diabetes mellitus, osteoarthritis, GERD, and coronary artery disease. Patient follows in the office with Dr. Valencia. We have been asked to see the patient in consultation for cardiac clearance. Patient is scheduled to undergo I&D of left knee this afternoon with orthopedics. Patient was recently hospitalized earlier this month secondary to inferior STEMI. He was taken to the catheter builder but Dr. Vora was unsuccessful at advancing balloon or artherectomy after multiple attempts per his cath report. Echocardiogram completed at that time revealed ejection fraction of 25-30%. Patient was transfe rred to [facility] where he states he had two stents placed. He was placed on aspirin and plavix. Patient examined at the bedside this morning. He states his left knee started hurting shortly after he was discharged from [facility]. Patient denies any chest pain or pressure. He denies shortness of breath. Patient states he is able to lay flat in bed without any dyspnea. 08/07 Patient seen and examined. Per nursing patient has been having extreme neck and back pain as well knee pain and therefore received narcotics. Currently somewhat lethargic and slow to answer questions with recent Dilaudid given, however he denies any chest pain or pressure which he had previously with his CO. Troponins were mildly increasing yesterday, repeat this morning pending. Platelets also have been decreasing. Blood cultures and knee cultures positive for staph aureus. 08/08 Patient seen and examined. Patient has been having increased abdominal fullness with concern of bowel obstruction and therefore NG tube was placed, currently to suction. Patient's troponins peaked and are now on the way down. He denies any chest pain. Has continued back and knee pain. Echo taken and awaiting read. REVIEW OF SYSTEMS: At the time of my exam: CONSTITUTIONAL: Denies fever or chills. HEENT: Denies blurred vision, vision changes, or eye pain. Denies hemoptysis CARDIOVASCULAR: Denies chest pain. Denies orthopnea. Denies PND. Denies palpitations RESPIRATORY: Denies shortness of breath. GASTROINTESTINAL: Denies abdominal pain. Denies nausea or vomiting. HEMATOLOGIC: Denies bleeding disorders. GENITOURINARY: Denies any blood in urine. SKIN: Denies pruitis. Denies rash. PHYSICAL EXAM: VITAL SIGNS: Reviewed. GENERAL: Well-developed in no acute distress. ill appearing HEENT: Head is normocephalic. Pupils are equal, round. Sclerae anicteric. Mucous membranes of the mouth are moist. Neck supple. No JVD or thyromegaly LUNGS: Respirations even and unlabored. Lungs essentially clear to auscultation bilaterally. HEART: Regular rate and rhythm. S1 and S2 heard. ABDOMEN: Soft. Nondistended. Nontender. EXTREMITIES: No clubbing or cyanosis. Peripheral pulses intact. Left knee tender with palpation. Left knee swollen with slightly decreased range of motion due to pain. NEUROLOGIC: Awake and appears mildly confused ASSESSMENT: Septic arthritis of left knee Recent inferior STEMI Coronary artery disease with PCI to RCA Abnormal troponins, no evidence of ACS Ischemic cardiomyopathy, EF 25-30% Hypertension Hyperlipidemia Diabetes mellitus Staph aureus bacteremia Thrombocytopenia. NSTEMI likely type 2 mechanism from sepsis Possible bowel obstruction, patient currently NPO PLAN: Continue dual antiplatelet therapy with aspirin and plavix. He is NPO currently with NG tube placed to suction. He received his morning aspirin and plavix. We will start heparin drip and readdress meds in morning, if not able to take oral meds, likely rectal aspirin tomorrow. Await limited 2D echo read. Patient without anginal symptoms such as chest pain which he had with his prior CO. Suspect Type 2 NSTEMI from sepsis. Further recommendations pending patient course. Prognosis guarded. Objective - Vital Signs Vital signs: Vital Signs Temp 97.7 F 08/08/20 11:55 Pulse 72 08/08/20 12:28 Resp 20 08/08/20 11:55 BP 118/70 08/08/20 11:55 Pulse Ox 99 08/08/20 11:55 Intake & Output 08/07/20 08/08/20 08/08/20 18:59 06:59 18:59 Intake Total 590 20 100 Output Total 1350 460 195 Balance -760 -440 -95 Weight 114 kg Intake: IV 310 20 Invasive Line 1 20 Invasive Line 3 20 20 Sodium Chloride 0.9% 1, 220 000 ml @ 20 mls/hr IV . Q24H LAURA Rx#:[id number] ceFAZolin 2 gm In Sodium 50 Chloride 0.9% 50 ml @ 100 mls/hr IVPB Q8H LAURA Rx#: [id number] Oral 280 100 Output: Drainage 50 60 5 Left Knee 50 60 5 Urine 1300 400 190 Uretheral (Shelley) 600 400 190 Other: Voiding Method Indwelling Catheter Indwelling Catheter Indwelling Catheter - Labs CBC & Chem 7: 08/08/20 08:21 08/08/20 08:21 Labs: Abnormal Lab Results - Last 24 Hours (Table) 08/07/20 08/07/20 08/07/20 Range/Units 16:40 17:35 20:32 RBC (4.30-5.90) m/uL Hgb (13.0-17.5) gm/dL Hct (39.0-53.0) % Plt Count (150-450) k/uL Lymphocytes # (1.0-4.8) k/uL Sodium (137-145) mmol/L Carbon Dioxide (22-30) mmol/L BUN (9-20) mg/dL Creatinine (0.66-1.25) mg/dL Glucose (74-99) mg/dL POC Glucose (mg/dL) 201 H 165 H (75-99) mg/dL Calcium (8.4-10.2) mg/dL Magnesium (1.6-2.3) mg/dL AST (17-59) U/L Troponin I 6.280 H* (0.000-0.034) ng/mL Total Protein (6.3-8.2) g/dL Albumin (3.5-5.0) g/dL 08/08/20 08/08/20 08/08/20 Range/Units 06:01 08:21 08:21 RBC 2.85 L (4.30-5.90) m/uL Hgb 9.2 L (13.0-17.5) gm/dL Hct 27.5 L (39.0-53.0) % Plt Count 103 L (150-450) k/uL Lymphocytes # 0.5 L (1.0-4.8) k/uL Sodium 132 L (137-145) mmol/L Carbon Dioxide 17 L (22-30) mmol/L BUN 57 H (9-20) mg/dL Creatinine 3.21 H (0.66-1.25) mg/dL Glucose 127 H (74-99) mg/dL POC Glucose (mg/dL) 145 H (75-99) mg/dL Calcium 7.7 L (8.4-10.2) mg/dL Magnesium 2.6 H (1.6-2.3) mg/dL AST 178 H (17-59) U/L Troponin I (0.000-0.034) ng/mL Total Protein 5.2 L (6.3-8.2) g/dL Albumin 2.7 L (3.5-5.0) g/dL 08/08/20 08/08/20 Range/Units 08: 11:44 RBC (4.30-5.90) m/uL Hgb (13.0-17.5) gm/dL Hct (39.0-53.0) % Plt Count (150-450) k/uL Lymphocytes # (1.0-4.8) k/uL Sodium (137-145) mmol/L Carbon Dioxide (22-30) mmol/L BUN (9-20) mg/dL Creatinine (0.66-1.25) mg/dL Glucose (74-99) mg/dL POC Glucose (mg/dL) 145 H (75-99) mg/dL Calcium (8.4-10.2) mg/dL Magnesium (1.6-2.3) mg/dL AST (17-59) U/L Troponin I 3.940 H* (0.000-0.034) ng/mL Total Protein (6.3-8.2) g/dL Albumin (3.5-5.0) g/dL Microbiology - Last 24 Hours (Table) 08/07/20 08:42 Blood Culture Gram Stain - Preliminary Blood 08/07/20 08:42 Blood Culture - Final Blood 08/05/20 15:25 Blood Culture Gram Stain - Final Blood Blood Culture - Final Staphylococcus aureus 08/05/20 15:46 Blood Culture Gram Stain - Final Blood Blood Culture - Final Staphylococcus aureus 08/06/20 18:00 Gram Stain - Preliminary Knee - Left Wound Culture - Preliminary Presumptive Staph aureus 08/06/20 18:00 Gram Stain - Preliminary Knee - Left Wound Culture - Preliminary Presumptive Staph aureus 08/05/20 16:47 Gram Stain - Preliminary Knee - Left Body Fluid Culture - Preliminary Staphylococcus aureus
--- NOTE | 2020-08-08 15:07 | XR ---
EXAMINATION TYPE: XR chest 1V portable DATE OF EXAM: 08/08/2020 HISTORY: Shortness of breath. COMPARISON: 08/08/2020 TECHNIQUE: Single view of the chest is submitted. FINDINGS: Demonstrated are scattered senescent parenchymal change. NG tube is seen coursing into the stomach. Diminished lung volumes. Increased basilar densities may reflect atelectasis or infiltrate. The heart is stable. Hilar and mediastinal structures are within normal limits. Degenerative changes are seen of the dorsal spine. IMPRESSION: 1. Diminished lung volumes. Increased basilar densities may reflect atelectasis or infiltrate.
[2020-08-08] MEDS: HEPARIN SOD,PORK IN 0.45% NACL 25,000 UNIT in 0.45% NACL 1 250ML.BAG IV SCH (15:36)
[2020-08-08 16:09] LABS: INR 0.8 (<1.2); Partial Thromboplastin Time 22.7 sec (22.0-30.0); Prothrombin Time 9.3 sec (9.0-12.0)
--- NOTE | 2020-08-08 16:09 | P.GSCN ---
History of Present Illness Consult date: 08/08/20 Reason for Consult: Gastric distention, ileus History of present illness: 75-year-old male hospitalized with fevers and knee pain. Patient was found to have septic arthritis of his knee. He underwent washout white orthopedics. He is also having issues with back and neck pain. Underwent MRI this morning for evaluation of that. Patient has been very immobile because of the orthopedic and spine issues. Denies abdominal pain. He was noted to have abdominal distention and frequent belching and burping as well. Abdominal x-rays were pe rformed showing a fairly impressively distended stomach. Nasogastric tube was placed with 500 mL of output immediately. Repeat abdominal x-ray shows decrease gastric distention. Patient without history of ulcers. Never had a scope previously. No rectal bleeding or melena. Patient with intermittent fevers and leukocytosis during this hospital stay. Review of Systems The patient denies any acute changes in vision or hearing, no dysphagia or odynophagia, no chest pain or shortness of breath, no dysuria or hematuria, no headache, no runny nose, no rectal bleeding or melena, no unexplained weight loss Past Medical History Past Medical History: Atrial Fibrillation, Coronary Artery Disease (CAD), Cancer, Chest Pain / Angina, Diabetes Mellitus, GERD/Reflux, Hyperlipidemia, Hypertension, Osteoarthritis (OA), Prostate Disorder Additional Past Medical History / Comment(s): 5 Herniated discs in neck causing headaches & numbness in arm and right lower back and pain and right leg pain. Hx 4 fx ribs, current Prostate Cancer- last radiation tx Mar 25 had total of 44 tx. occ constipation, Last Myocardial Infarction Date:: UNKOWN History of Any Multi-Drug Resistant Organisms: None Reported Past Surgical History: Adenoidectomy, Heart Catheterization, Heart Catheterization With Stent, Joint Replacement, Orthopedic Surgery, Tonsillectomy Additional Past Surgical History / Comment(s): PROSTATE BX., LT. KNEE ARTHROSCOPY X 2, CERVICAL FUSIONS, COLONOSCOPY, ÁNGEL. CATARTACTS.Pain Procedures , rt radio frequency procedures. , total 3 heart stents, hemorrhoidectomy,heart cath August 2017-lt knee replacement. Stent replacement \\2020 Past Anesthesia/Blood Transfusion Reactions: No Reported Reaction Additional Past Anesthesia/Blood Transfusion Reaction / Comm: doesn't like enclosed tight spaces Date of Last Stent Placement:: 04/24/17 Past Psychological History: No Psychological Hx Reported Smoking Status: Former smoker Past Alcohol Use History: None Reported Past Drug Use History: None Reported - Past Family History Father Additional Family Medical History / Comment(s): Father at age 49 from coronary artery disease. Brother(s) Additional Family Medical History / Comment(s): Patient has one brother with history of smoking and no other major medical problems. Patient does not have any sisters. Daughter(s) Additional Family Medical History / Comment(s): He has one daughter alive in [place] with no major medical problems. Patient has one daughter with history of muscular dystrophy and of pneumonia. Son(s) Family Medical History: No Reported History Additional Family Medical History / Comment(s): Patient has one son with no major medical problems. Mother Family Medical History: Cancer Additional Family Medical History / Comment(s): Mother at age 81 from uterine cancer with metastatic disease. Medications and Allergies Home Medications Medication Instructions Recorded Confirmed Type Atorvastatin Calcium [Lipitor] 80 mg PO DAILY@0900 11/01/14 08/05/20 History Valsartan/Hydrochlorothiazide 1 tab PO DAILY@1800 12/13/19 08/05/20 History [Valsartan-Hctz 320-12.5 mg Tab] Aspirin [[place] Aspirin EC] 81 mg PO DAILY@0900 08/05/20 08/05/20 History Atenolol [Tenormin] 50 mg PO DAILY@0900 08/05/20 08/05/20 History Isosorbide Mononitrate ER [Imdur] 60 mg PO DAILY@0900 08/05/20 08/05/20 History Allergies Allergy/AdvReac Type Severity Reaction Status Date / Time No Known Allergies Allergy Verified 08/05/20 17:38 Surgical - Exam Vital Signs Temp Pulse Resp BP Pulse Ox 101.9 F H 106 H 18 121/61 94 L 08/05/20 14:44 08/05/20 14:44 08/05/20 14:44 08/05/20 14:44 08/05/20 14:44 Physical exam: General: Well-developed, well-nourished HEENT: Normocephalic, sclerae nonicteric Abdomen: Minimal upper abdominal tenderness, distended with tympany Extremities: Knee dressing in place, mild edema Neuro: Alert and oriented Results - Labs 08/08/20 08:21 08/08/20 08:21 Abnormal Lab Results - Last 24 Hours (Table) 08/07/20 08/07/20 08/07/20 Range/Units 16:40 17:35 20:32 RBC (4.30-5.90) m/uL Hgb (13.0-17.5) gm/dL Hct (39.0-53.0) % Plt Count (150-450) k/uL Lymphocytes # (1.0-4.8) k/uL Sodium (137-145) mmol/L Carbon Dioxide (22-30) mmol/L BUN (9-20) mg/dL Creatinine (0.66-1.25) mg/dL Glucose (74-99) mg/dL POC Glucose (mg/dL) 201 H 165 H (75-99) mg/dL Calcium (8.4-10.2) mg/dL Magnesium (1.6-2.3) mg/dL AST (17-59) U/L Troponin I 6.280 H* (0.000-0.034) ng/mL Total Protein (6.3-8.2) g/dL Albumin (3.5-5.0) g/dL 08/08/20 08/08/20 08/08/20 Range/Units 06:01 08:21 08:21 RBC 2.85 L (4.30-5.90) m/uL Hgb 9.2 L (13.0-17.5) gm/dL Hct 27.5 L (39.0-53.0) % Plt Count 103 L (150-450) k/uL Lymphocytes # 0.5 L (1.0-4.8) k/uL Sodium 132 L (137-145) mmol/L Carbon Dioxide 17 L (22-30) mmol/L BUN 57 H (9-20) mg/dL Creatinine 3.21 H (0.66-1.25) mg/dL Glucose 127 H (74-99) mg/dL POC Glucose (mg/dL) 145 H (75-99) mg/dL Calcium 7.7 L (8.4-10.2) mg/dL Magnesium 2.6 H (1.6-2.3) mg/dL AST 178 H (17-59) U/L Troponin I (0.000-0.034) ng/mL Total Protein 5.2 L (6.3-8.2) g/dL Albumin 2.7 L (3.5-5.0) g/dL 08/08/20 08/08/20 Range/Units 08:21 11:44 RBC (4.30-5.90) m/uL Hgb (13.0-17.5) gm/dL Hct (39.0-53.0) % Plt Count (150-450) k/uL Lymphocytes # (1.0-4.8) k/uL Sodium (137-145) mmol/L Carbon Dioxide (22-30) mmol/L BUN (9-20) mg/dL Creatinine (0.66-1.25) mg/dL Glucose (74-99) mg/dL POC Glucose (mg/dL) 145 H (75-99) mg/dL Calcium (8.4-10.2) mg/dL Magnesium (1.6-2.3) mg/dL AST (17-59) U/L Troponin I 3.940 H* (0.000-0.034) ng/mL Total Protein (6.3-8.2) g/dL Albumin (3.5-5.0) g/dL Microbiology - Last 24 Hours (Table) 08/07/20 08:42 Blood Culture Gram Stain - Preliminary Blood 08/07/20 08:42 Blood Culture - Final Blood 08/05/20 15:25 Blood Culture Gram Stain - Final Blood Blood Culture - Final Staphylococcus aureus 08/05/20 15:46 Blood Culture Gram Stain - Final Blood Blood Culture - Final Staphylococcus aureus 08/06/20 18:00 Gram Stain - Preliminary Knee - Left Wound Culture - Preliminary Presumptive Staph aureus 08/06/20 18:00 Gram Stain - Preliminary Knee - Left Wound Culture - Preliminary Presumptive Staph aureus 08/05/20 16:47 Gram Stain - Preliminary Knee - Left Body Fluid Culture - Preliminary Staphylococcus aureus Diabetes panel 08/08/20 Range/Units 08:21 Sodium 132 L (137-145) mmol/L Potassium 3.9 (3.5-5.1) mmol/L Chloride 102 (98-107) mmol/L Carbon Dioxide 17 L (22-30) mmol/L BUN 57 H (9-20) mg/dL Creatinine 3.21 H (0.66-1.25) mg/dL Glucose 127 H (74-99) mg/dL Calcium 7.7 L (8.4-10.2) mg/dL AST 178 H (17-59) U/L ALT 30 (4-49) U/L Alkaline Phosphatase 56 (38-126) U/L Total Protein 5.2 L (6.3-8.2) g/dL Albumin 2.7 L (3.5-5.0) g/dL Calcium panel 08/08/20 Range/Units 08:21 Calcium 7.7 L (8.4-10.2) mg/dL Albumin 2.7 L (3.5-5.0) g/dL Pituitary panel 08/08/20 Range/Units 08:21 Sodium 132 L (137-145) mmol/L Potassium 3.9 (3.5-5.1) mmol/L Chloride 102 (98-107) mmol/L Carbon Dioxide 17 L (22-30) mmol/L BUN 57 H (9-20) mg/dL Creatinine 3.21 H (0.66-1.25) mg/dL Glucose 127 H (74-99) mg/dL Calcium 7.7 L (8.4-10.2) mg/dL Adrenal panel 08/08/20 Range/Units 08:21 Sodium 132 L (137-145) mmol/L Potassium 3.9 (3.5-5.1) mmol/L Chloride 102 (98-107) mmol/L Carbon Dioxide 17 L (22-30) mmol/L BUN 57 H (9-20) mg/dL Creatinine 3.21 H (0.66-1.25) mg/dL Glucose 127 H (74-99) mg/dL Calcium 7.7 L (8.4-10.2) mg/dL Total Bilirubin 0.9 (0.2-1.3) mg/dL AST 178 H (17-59) U/L ALT 30 (4-49) U/L Alkaline Phosphatase 56 (38-126) U/L Total Protein 5.2 L (6.3-8.2) g/dL Albumin 2.7 L (3.5-5.0) g/dL Assessment and Plan (1) Gastric distention Narrative/Plan: 75-year-old male with significant gastric distention on x-rays. Will obtain repeat abdominal x-rays tomorrow. I would like to perform a upper GI however patient has such significant pain with movement because of his back pain and knee pain that I'm not sure he would be able to comply with that study at present. Once patient is more mobile will order upper GI to evaluate for gastric outlet obstruction. We'll follow closely with you Current Visit: Yes Status: Acute Code(s): K31.89 - OTHER DISEASES OF STOMACH AND DUODENUM SNOMED Code(s): 153347904
[2020-08-08 16:41] LABS: Glucose,Whole Blood 141 mg/dL (75-99)
--- NOTE | 2020-08-08 18:18 | CONS ---
CONSULTATION REASON FOR CONSULT: Renal failure. HISTORY OF PRESENT ILLNESS: The patient is a 75-year-old male, initially admitted on 08/04/2020 with complaints of weakness not feeling well and septic arthritis off the left knee. The patient has an extensive coronary artery disease history with recent cardiac catheterization on 07/30/2020 and recent inferior wall [place]. He is noted to have a serum creatinine of 1.45 mg/dL on initial admission and it increased to about 3.2 today. The patient's blood pressure has been borderline with occasional low blood pressures as low as 88 and 86 mmHg systolic on 08/06/2020. The patient was also maintained on angiotensin receptor blockers and he had urine retention. A Shelley catheter was placed yesterday. Currently patient has good urine output. His Cozaar is currently on hold and he is maintained on IV fluids at 125 mL an hour. The diuretics are on hold as well. PAST MEDICAL HISTORY: Significant for coronary artery disease, hypertension, hyperlipidemia, type 2 diabetes, diabetic neuropathy, peripheral vascular disease, prostate cancer, erectile dysfunction, osteoarthritis, spondylosis. PAST SURGICAL HISTORY: Left knee arthroscopic surgery, left knee arthroplasty, right total hip replacement with revision due to infection, prostate biopsies, bilateral cataract surgery, cardiac catheterization on 07/28/2020 with attempted PCI of RCA and repeat cardiac catheterization on 07/30/2020 with 2 stent placements, history of adenoidectomy, tonsillectomy, colonoscopy, epidural injections. SOCIAL HISTORY: Patient is a former smoker. No history of drug abuse or alcohol abuse. FAMILY HISTORY: Noncontributory. REVIEW OF SYSTEMS: As per HPI. Other systems negative. PHYSICAL EXAMINATION: Comfortable, awake, not in any acute distress. Blood pressure this morning was 115/72, heart rate 72 per minute. He is afebrile. Examination of the heart S1, S2. Examination of the lungs, bilateral breath sounds are heard. Abdomen is soft, nontender. Examination of lower extremities shows no significant edema. HELMET BINDER exam grossly intact. LAB: Show sodium 132, potassium 3.9, BUN 57. Serum creatinine 3.2, hemoglobin 9.2 g/dL. Troponin 6.2. ASSESSMENT: 1. Acute kidney injury secondary to hypotension, hypoperfusion as well as urine retention currently with a Shelley catheter with good urine output. Angiotensin receptor blockers have been discontinued. I will add midodrine to help with the blood pressure. Continue with the IV fluids as well. Check urinalysis. 2. Septic arthritis, left knee, maintained on antibiotics. 3. Lactic acidosis secondary to sepsis. 4. Acute kidney injury associated with recent cardiac catheterization and contrast administration on 07/28 and 07/30. However, creatinine started to go up again post hospitalization with the onset of hypotension. Patient's previous creatinine had been 1 or less than 1 prior to the July labs. 5. Recent inferior wall ST elevation myocardial infarction status post cardiac catheterization, two coronary stent placement to RCA. 6. Spondylosis of the cervical spine. 7. History of prostate cancer status post radiation. 8. Urine retention currently with Shelley catheter. PLAN: Continue with the Shelley catheter. Continue IV fluids. Repeat labs in a.m. MMODL / IJN: [id number] /
[2020-08-08 20:17] LABS: Glucose,Whole Blood 144 mg/dL (75-99)
[2020-08-08] MEDS: INSULIN DETEMIR (LEVEMIR) 100 UNIT/ML SYR SQ SCH (20:54)
[2020-08-09] MEDS: IPRATROPIUM-ALBUTEROL 3 ML NEB INHALATION SCH ×7 (00:13→23:24)
[2020-08-09] MEDS: SODIUM CHLORIDE 0.9% 1,000 ML IV SCH ×3 (00:30→16:16)
--- NOTE | 2020-08-09 00:58 | P.CNNES ---
History of Present Illness Consult date: 08/08/20 Requesting physician: Rachel Melchor Reason for Consult: Neck pain, bilateral upper extremity weakness History of Present Illness: Patient is a 75-year-old male, came to the hospital on 08/05/2020 by ambulance with chest discomfort, not feeling well for a couple of days. He did have a nonproductive cough. Also had some chest pressure. Patient recently was admitted to [facility] where he had undergone stenting 2. Patient admitted at this time for septic arthritis involving the left knee, severe sepsis, hyponatremia and hypomagnesemia. Patient had undergone washout of the right knee with orthopedics. Patient has positive blood cultures with staph aureus. patient has severely elevated cardiac enzymes, cardiology on board. AST 178, ALT 30. Patient has history of total knee replacement on the left in 2018. Patient at present complains of pain in the left knee 6/10. He complains of neck pain 8/10, but then changed to 10/10. He denies headache. He complains of low back pain 10/10. Patient complains of whole back hurts. Patient has history of atrial fibrillation, CAD, diabetes for the last 10 years, angina, hyperlipidemia, hypertension. Patient has history of 5 herniated disks in the neck. He has history of prostate cancer. MRI of the cervical spine with and without contrast was limited study. There is multilevel foraminal encroachment, facet arthropathy and degenerative disc dis ease. Postoperative changes. Study limited. Patient's blood test shows that normal WBC, hemoglobin 10.5 and platelets 62. PT/PTT is normal. Sodium 125 potassium 3.8, BUN 19, creatinine 1.45. AST is 81, ALT 61. Troponin is elevated. Cox virus PCR negative. Patient's sodium has improved to 132, BUN is 57, creatinine 3.21. Troponins are very high at 3.9. Last hemoglobin A1c 6.7 on 11/07/2019 Chest x-ray showed diminished lung volumes. Increase basilar densities may reflect atelectasis or infiltrate. 2-D echo from 07/29/2020 showed EF 25-30%, mid anterior, mid lateral, mid inferior, mid inferior septal, apical anterior, apical lateral, apical inferior and apical septum and lateral wall motion is hypokinetic. Blood cultures were positive for staph aureus. Patient's previous MRI of the lumbar spine from 06/27/2018 showed levoconvex scoliosis with multilevel degenerative changes, most prominent findings are redemonstrated L3 4 and L4 5 levels. Review of Systems Patient denies headache. Complains of pain as mentioned above. Denies any chest pain at this time. Denies double vision problem with the vision. ROS unobtainable: due to mental status Past Medical History Past Medical History: Atrial Fibrillation, Coronary Artery Disease (CAD), Cancer, Chest Pain / Angina, Diabetes Mellitus, GERD/Reflux, Hyperlipidemia, Hypertension, Osteoarthritis (OA), Prostate Disorder Additional Past Medical History / Comment(s): 5 Herniated discs in neck causing headaches & numbness in arm and right lower back and pain and right leg pain. Hx 4 fx ribs, current Prostate Cancer- last radiation tx Mar 25-2016 had total of 44 tx. occ constipation, Last Myocardial Infarction Date:: UNKOWN History of Any Multi-Drug Resistant Organisms: None Reported Past Surgical History: Adenoidectomy, Heart Catheterization, Heart Catheterization With Stent, Joint Replacement, Orthopedic Surgery, Tonsillectomy Additional Past Surgical History / Comment(s): PROSTATE BX., LT. KNEE ARTHROSCOPY X 2, CERVICAL FUSIONS, COLONOSCOPY, ÁNGEL. CATARTACTS.Pain Procedures , rt radio frequency procedures. , total 3 heart stents, hemorrhoidectomy,heart cath August 2017-lt knee replacement. Stent replacement Past Anesthesia/Blood Transfusion Reactions: No Reported Reaction Additional Past Anesthesia/Blood Transfusion Reaction / Comment(s): doesn't like enclosed tight spaces Date of Last Stent Placement:: 04/24/17 Past Psychological History: No Psychological Hx Reported Smoking Status: Former smoker Past Alcohol Use History: None Reported Past Drug Use History: None Reported - Past Family History Father Additional Family Medical History / Comment(s): Father at age 49 from coronary artery disease. Brother(s) Additional Family Medical History / Comment(s): Patient has one brother with history of smoking and no other major medical problems. Patient does not have any sisters. Daughter(s) Additional Family Medical History / Comment(s): He has one daughter alive in [place] with no major medical problems. Patient has one daughter with history of muscular dystrophy and of pneumonia. Son(s) Family Medical History: No Reported History Additional Family Medical History / Comment(s): Patient has one son with no major medical problems. Mother Family Medical History: Cancer Additional Family Medical History / Comment(s): Mother at age 81 from uterine cancer with metastatic disease. Medications and Allergies Home Medications Medication Instructions Recorded Confirmed Type Atorvastatin Calcium [Lipitor] 80 mg PO DAILY@0900 07/08/05/20 History Valsartan/Hydrochlorothiazide 1 tab PO DAILY@1800 12/13/19 08/05/20 History [Valsartan-Hctz 320-12.5 mg Tab] Aspirin [[place] Aspirin EC] 81 mg PO DAILY@0908/05/20 08/05/20 History Atenolol [Tenormin] 50 mg PO DAILY@89908/05/20 08/05/20 History Isosorbide Mononitrate ER [Imdur] 60 mg PO DAILY@0908/05/20 08/05/20 History Allergies Allergy/AdvReac Type Severity Reaction Status Date / Time No Known Allergies Allergy Verified 08/05/20 17:38 Physical Examination - Vital Signs Vital Signs: Vital Signs Temp Pulse Pulse Resp BP Pulse Ox 08/08/20 07:38 97.4 F L 72 20 115/72 100 08/08/20 04:00 97.6 F 72 20 114/74 99 08/08/20 02:30 85 110/67 94 L 08/08/20 00:00 98.2 F 87 18 110/70 98 08/07/20 22:48 99 100/64 93 L 08/07/20 21:00 98.5 F 98 111/67 93 L 08/07/20 20:00 99.1 F 94 18 94/68 95 08/07/20 18:13 20 96 08/07/20 17:59 99.9 F H 99 20 94/58 89 L 08/07/20 17:15 101.1 F H 08/07/20 16:06 100.8 F H 96 22 100/57 94 L 08/07/20 12:00 98.3 F 108 H 22 106/63 94 L Intake and Output 08/07/20 08/08/20 08/08/20 22:59 06:59 14:59 Intake Total 250 100 Output Total 850 340 Balance -600 -340 100 Intake: IV 100 Invasive Line 3 40 Sodium Chloride 0.9% 1, 60 000 ml @ 20 mls/hr IV . Q24H [facility] Rx#:[id number] Oral 150 100 Output: Drainage 50 40 Left Knee 50 40 Urine 800 300 Uretheral (Shelley) 100 300 Other: Voiding Method Indwelling Catheter Indwelling Catheter Weight 114 kg On examination patient is an elderly male, who appears very sick. Patient is delirious, fluctuating mental status. Sometimes he is more alert, sometimes is more slow, with prolonged latency time to answer questions. Speech and language functions are normal. Patient states it's February and the year is 2020. He states he is in [facility] in [facility] and knows name of the current president. Attention span, concentration and fund of knowledge is limited. On cranial nerve exam showed pupils are round and reactive to light, visual adames are full on confrontation, extraocular muscles are intact with no nystagmus. Face is symmetric, tongue protrudes to the midline. Palatal elevation and sensation normal, hearing and shoulder shrug normal. Facial sensation normal on muscle strength testing there is no pronator drift and the strength is normal in both arms and the right leg distally and proximally. Left ankle appears normal. Detail testing deferred. Deep tendon reflexes are absent. Plantars are downgoing. Brudzinski's sign negative. Patient's neck does appear slightly stiff. Peripheral pulses are present. Abdomen is protuberant, distended. Has partial gastric outlet obstruction. Results - Laboratory Findings CBC and BMP: 08/08/20 08:21 08/08/20 08:21 Abnormal Lab Findings: Abnormal Labs 08/05/20 08/05/20 08/05/20 15:46 15:46 15:46 RBC Hgb Hct Plt Count Lymphocytes # Lymphocytes # (Manual) Metamyelocytes # (Man) Myelocytes # (Manual) D-Dimer 3.65 H Sodium 125 L Chloride 95 L Carbon Dioxide 18 L BUN Creatinine 1.45 H Glucose 327 H POC Glucose (mg/dL) Plasma Lactic Acid Rob 2.5 H* Calcium 7.9 L Magnesium 1.1 L Ferritin 437.8 H Total Bilirubin 2.8 H AST 81 H ALT 61 H Alkaline Phosphatase 35 L Lactate Dehydrogenase 1301 H Troponin I C-Reactive Protein 16.5 H Total Protein 5.4 L Albumin 3.2 L Procalcitonin Synovial Crystals 04/19/21 04/19/21 04/19/21 15:46 15:46 15:47 RBC 3.26 L Hgb 10.5 L D Hct 30.8 L Plt Count 62 L D Lymphocytes # Lymphocytes # (Manual) 0.58 L Metamyelocytes # (Man) Myelocytes # (Manual) D-Dimer Sodium Chloride Carbon Dioxide BUN Creatinine Glucose POC Glucose (mg/dL) Plasma Lactic Acid Rob Calcium Magnesium Ferritin Total Bilirubin AST ALT Alkaline Phosphatase Lactate Dehydrogenase Troponin I 1.200 H* C-Reactive Protein Total Protein Albumin Procalcitonin 24.96 H Synovial Crystals 08/05/20 08/05/20 08/05/20 16:47 20:29 23:41 RBC Hgb Hct Plt Count Lymphocytes # Lymphocytes # (Manual) Metamyelocytes # (Man) Myelocytes # (Manual) D-Dimer Sodium Chloride Carbon Dioxide BUN Creatinine Glucose POC Glucose (mg/dL) Plasma Lactic Acid Rob 4.5 H* 7.3 H* Calcium Magnesium Ferritin Total Bilirubin AST ALT Alkaline Phosphatase Lactate Dehydrogenase Troponin I C-Reactive Protein Total Protein Albumin Procalcitonin Synovial Crystals Seen A 08/06/20 08/06/20 08/06/20 03:48 03:48 03:48 RBC 3.13 L Hgb 10.6 L Hct 29.4 L Plt Count 62 L Lymphocytes # Lymphocytes # (Manual) 0.15 L Metamyelocytes # (Man) 0.08 H Myelocytes # (Manual) 0.08 H D-Dimer Sodium 128 L Chloride Carbon Dioxide 18 L BUN 25 H Creatinine 1.62 H Glucose 317 H POC Glucose (mg/dL) Plasma Lactic Acid Rob 4.1 H* Calcium 7.6 L Magnesium Ferritin Total Bilirubin 3.1 H AST 85 H ALT 55 H Alkaline Phosphatase 37 L Lactate Dehydrogenase Troponin I C-Reactive Protein Total Protein 5.0 L Albumin 2.9 L Procalcitonin Synovial Crystals 08/06/20 08/06/20 08/06/20 06:13 08:13 08:13 RBC Hgb Hct Plt Count Lymphocytes # Lymphocytes # (Manual) Metamyelocytes # (Man) Myelocytes # (Manual) D-Dimer Sodium Chloride Carbon Dioxide BUN Creatinine Glucose POC Glucose (mg/dL) 304 H Plasma Lactic Acid Rob 4.3 H* Calcium Magnesium Ferritin Total Bilirubin AST ALT Alkaline Phosphatase Lactate Dehydrogenase Troponin I 3.790 H* C-Reactive Protein Total Protein Albumin Procalcitonin Synovial Crystals 08/06/20 08/06/20 08/06/20 11:40 12:23 15:20 RBC Hgb Hct Plt Count Lymphocytes # Lymphocytes # (Manual) Metamyelocytes # (Man) Myelocytes # (Manual) D-Dimer Sodium Chloride Carbon Dioxide BUN Creatinine Glucose POC Glucose (mg/dL) 248 H Plasma Lactic Acid Rob Calcium Magnesium Ferritin Total Bilirubin AST ALT Alkaline Phosphatase Lactate Dehydrogenase Troponin I 4.390 H* 5.600 H* C-Reactive Protein Total Protein Albumin Procalcitonin Synovial Crystals 08/06/20 08/06/20 08/07/20 16:05 20:28 06:19 RBC Hgb Hct Plt Count Lymphocytes # Lymphocytes # (Manual) Metamyelocytes # (Man) Myelocytes # (Manual) D-Dimer Sodium Chloride Carbon Dioxide BUN Creatinine Glucose POC Glucose (mg/dL) 190 H 178 H 222 H Plasma Lactic Acid Rob Calcium Magnesium Ferritin Total Bilirubin AST ALT Alkaline Phosphatase Lactate Dehydrogenase Troponin I C-Reactive Protein Total Protein Albumin Procalcitonin Synovial Crystals 08/07/20 08/07/20 08/07/20 08:42 08:42 08:42 RBC 3.06 L Hgb 9.8 L Hct 30.1 L Plt Count 75 L Lymphocytes # Lymphocytes # (Manual) Metamyelocytes # (Man) Myelocytes # (Manual) D-Dimer Sodium 131 L Chloride Carbon Dioxide 19 L BUN 43 H Creatinine 3.02 H Glucose 228 H POC Glucose (mg/dL) Plasma Lactic Acid Rob Calcium 7.8 L Magnesium Ferritin Total Bilirubin 1.7 H AST 152 H ALT 59 H Alkaline Phosphatase Lactate Dehydrogenase Troponin I 7.420 H* C-Reactive Protein Total Protein 5.1 L Albumin 2.8 L Procalcitonin Synovial Crystals 08/07/20 08/07/20 08/07/20 11:42 12:26 16:40 RBC Hgb Hct Plt Count Lymphocytes # Lymphocytes # (Manual) Metamyelocytes # (Man) Myelocytes # (Manual) D-Dimer Sodium Chloride Carbon Dioxide BUN Creatinine Glucose POC Glucose (mg/dL) 219 H 201 H Plasma Lactic Acid Rob Calcium Magnesium Ferritin Total Bilirubin AST ALT Alkaline Phosphatase Lactate Dehydrogenase Troponin I 6.160 H* C-Reactive Protein Total Protein Albumin Procalcitonin Synovial Crystals 08/07/20 08/07/20 08/08/20 17:35 20:32 06:01 RBC Hgb Hct Plt Count Lymphocytes # Lymphocytes # (Manual) Metamyelocytes # (Man) Myelocytes # (Manual) D-Dimer Sodium Chloride Carbon Dioxide BUN Creatinine Glucose POC Glucose (mg/dL) 165 H 145 H Plasma Lactic Acid Rob Calcium Magnesium Ferritin Total Bilirubin AST ALT Alkaline Phosphatase Lactate Dehydrogenase Troponin I 6.280 H* C-Reactive Protein Total Protein Albumin Procalcitonin Synovial Crystals 08/08/20 08/08/20 08:21 08:21 RBC 2.85 L Hgb 9.2 L Hct 27.5 L Plt Count 103 L Lymphocytes # 0.5 L Lymphocytes # (Manual) Metamyelocytes # (Man) Myelocytes # (Manual) D-Dimer Sodium 132 L Chloride Carbon Dioxide 17 L BUN 57 H Creatinine 3.21 H Glucose 127 H POC Glucose (mg/dL) Plasma Lactic Acid Rob Calcium 7.7 L Magnesium 2.6 H Ferritin Total Bilirubin AST 178 H ALT Alkaline Phosphatase Lactate Dehydrogenase Troponin I C-Reactive Protein Total Protein 5.2 L Albumin 2.7 L Procalcitonin Synovial Crystals Assessment and Plan Assessment: * Altered mental status with fluctuating mental status, likely delirium, possi ble toxic metabolic encephalopathy. * Neck stiffness unclear cause. MRI of the cervical spine showed no definitive epidural collection. Meningitis is a possibility, but patient has no headache. * Septicemia with staph aureus * Septic arthritis left knee. * Elevated cardiac enzymes, with recent inferior STEMI * Ischemic cardiomyopathy * Partial gastric outlet obstruction * Acute renal failure * Elevated cardiac enzymes * Diabetes Plan: * Patient has septicemia with staph aureus. Patient complaining of severe neck and low back pain. Patient's muscle strength of bilateral upper and lower extremities appears normal. MRI of the cervical spine with IV contrast showed no definitive epidural collection. However meningitis is also a possibility. Infectious disease on board. Consider lumbar puncture if cleared from septicemia standpoint. Patient currently on cefazolin. * Patient also on aspirin 81 mg and Plavix 75 mg for coronary artery disease. * Other medical management as per IM, and other specialties. * Check computed tomography scan of the head. * We will follow.
[2020-08-09] MEDS: HYDROmorphone 0.5 MG/0.5 ML SYRINGE IVP PRN ×3 (04:02→20:01)
[2020-08-09] MEDS: INSULIN ASPART (NovoLOG) 100 UNIT/ML VIAL SQ SCH ×4 (04:03→22:08)
[2020-08-09] MEDS: PANTOPRAZOLE 40 MG TABLET PO SCH (04:03)
[2020-08-09 05:48] LABS: Glucose,Whole Blood 152 mg/dL (75-99)
[2020-08-09 05:58] LABS: Basophils % (A) 0 %; Eosinophils % (A) 0 %; HCT 24.7 % (39.0-53.0); HGB 8.5 gm/dL (13.0-17.5); Lymphocytes # (A) 0.3 k/uL (1.0-4.8); Lymphocytes % (A) 5 %; MCH 33.2 pg (25.0-35.0); MCHC 34.6 g/dL (31.0-37.0); MCV 96.1 fL (80.0-100.0); Mean Platelet Volume 8.9; Monocytes # (A) 0.2 k/uL (0-1.0); Monocytes % (A) 3 %; Neutrophils % (A) 90 %; Platelet Count 110 k/uL (150-450); RBC 2.57 m/uL (4.30-5.90); RDW 14.1 % (11.5-15.5); WBC 5.5 k/uL (3.8-10.6)
[2020-08-09 06:11] LABS: INR 0.8 (<1.2); Partial Thromboplastin Time 27.8 sec (22.0-30.0); Prothrombin Time 9.3 sec (9.0-12.0)
[2020-08-09] MEDS: ASPIRIN 81 MG PO SCH (07:51)
[2020-08-09] MEDS: ATORVASTATIN 80 MG TAB PO SCH (07:52)
[2020-08-09] MEDS: CLOPIDOGREL 75 MG TAB PO SCH (07:52)
[2020-08-09] MEDS: atenoloL 50 MG TAB PO SCH (07:52)
[2020-08-09] MEDS: ISOSORBIDE MONONITRATE ER 60 MG TAB.ER.24H PO SCH (07:53)
--- NOTE | 2020-08-09 08:23 | P.PN ---
Subjective Progress Note Date: 08/08/20 HISTORY OF PRESENT ILLNESS: This is a 75-year-old male one of my patient with previous medical history significant for coronary artery disease status post percutaneous coronary int ervention and stent placement last one was in 12/13/2019 in the mid RCA at that time he was found to have a totally occluded obtuse marginal one of the LCx, with collaterals from the PDA, hypertension and hypertensive cardio vascular disease, hyperlipidemia, diabetes mellitus type 2, diabetic polyneuropathy, 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 as well as radio frequency ablation, prostate cancer status post radiation therapy, patient took himself off the Plavix due to significant bruising and 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 and he was taken a baby aspirin alone, patient presented to the emergency department at [facility] on 07/28/2020 with what appears to be an inferior wall ST elevation myocardial infarction patient was taken to the laboratory animal care veterinarian and an attempted angioplasty of a computed occluded RCA had failed and the patient was transferred to [facility] for complex angioplasty of the occluded RCA, apparently patient did have 2 stents placement in the RCA and he was discharged from [facility] and patient has been getting more at all with poor appetite and his having some issues with his left knee not able to walk on the knee associated with knee buckling and locking patient had lost his appetite, he ended up coming to the emergency department at [facility] today after his daughter contacted by staff and they directed her to go to the emergency department for evaluation of possible septic knee, patient was seen and evaluated in the ER he had temperature and his white count were normal, her d-dimer was elevated his troponin was slightly elevated as well, patient was started on IV antibiotic in the form of vancomycin as well as Zosyn, blood cultures will be obtained, aspiration of the left knee showed cloudy fluid the result of which still pending at the time of dictation orthopedic surgery consultation was obtained from Dr. Choi, patient will be admitted to hospital for further evaluation, his platelet count were down to 62,000 and his lactic acid was elevated suggestive of sepsis. 08/06: Patient is seen today in follow-up. COVID-[address] angios the chest showed no large central pulmonary emboli. Motion artifact of the bilateral lungs without focal airspace opacities. Fatty liver. Venous ultrasound was negative for DVT of the left lower extremity. Patient's home medication list needs to be updated. Will add and Lantus 18 units at bedtime, Plavix 75 mg daily, Januvia. Patient's nurse was updated that the patient's medication list needs to be confirmed. He has been seen by Dr. Choi and plan for I&D of the left knee today. Patient is currently on vancomycin IV and Zosyn. Patient has been afebrile, heart rate 104, respiratory rate 26, blood pressure 125/65, pulse ox 96% on room air. Repeat lactic acid is 8.3. Repeat troponin 3.790. WBC 7.7, hemoglobin 10.6. Sodium 128, potassium 3.5, chloride 98, CO2 18, BUN 25 and creatinine 1.62. Blood sugar 317. Calcium 7.6. Magnesium 1.8. Total bilirubin 3.1, AST 85, ALT 55, alkaline phosphatase 37. Fluid studies reveal RBC 3600, nucleated cells 62,000, polynuclear WBCs 85, and mononuclear WBCs 15, glucose 104, total protein 3330. Crystals pending. Consult also in place with cardiology and Dr. Strickland. 08/07: Has been afebrile, heart rate 103, blood pressure 116/61, pulse ox 96% on 2 L nasal cannula. Repeat troponins were 4.390 and 5.6. Blood sugars are running between 178 and 222. Blood culture is presumptive staph aureus on 2 specimens and fluid culture from the knee is also presumptive staph aureus. Repeat blood culture will be ordered today. Fluid analysis showed no crystals. Patient has been seen by cardiology and cleared for surgery. Patient subsequently underwent incision and drainage of the left total knee. The patient has also been followed by Dr. Chacon 8 and covered with antibiotics on Kefzol 2 g IV piggyback every 8 hours. Repeat blood work reveals WBC of 8.4, hemoglobin 9.8, platelet count 75. Sodium 131, potassium 3.9, chloride 99, CO2 19, BUN 43 and creatinine 3.02. Blood sugars are running between 178 and 222. Total bilirubin 1.7, AST 152, ALT 59. Troponin is 7.420. Radiology continues to follow. Diovan will be discontinued and consult placed with nephrology. 08/08: Patient is feeling more sick today with increased abdominal distention and increased hiccups, he is having very poor appetite is not able to tolerate his diet, he is requiring oxygen, chest x-ray and abdominal x-ray showed a gastric outlet obstruction, NG tube was placed and surgical consultation was obtained, continue IV fluid, patient will be seen in consultation by ICU for possible transfer to the intensive care unit due to his multiple medical issues. REVIEW OF SYSTEMS: Constitutional: Denies fever, denies chills, no night sweats, fatigue , lethargy and sleeping and weight loss. HEENT: No headache. No blurred vision or double vision, no loss of vision. No loss of Hearing, no ringing in the ears, no dizziness. No nasal drainage or congestion. No epistaxis. No sore throat. Respiratory: No shortness of breath, no cough, no sputum production. No wheezing. Reports dyspnea with activity. Cardiovascular: No chest pain, no lower extremity edema. No palpitations. No paroxysmal nocturnal dyspnea. No orthopnea. No lightheadedness or dizziness. No syncopal episodes. Gastrointestinal: Reports no abdominal pain. No nausea, vomiting. No diarrhea. No constipation. No bloody or tarry stools reports loss of appetite. Genitourinary: No dysuria, increased frequency, urgency. No urinary retention. Musculoskeletal: Positive for myalgias. positive for muscle weakness, Positive for gait dysfunction, no frequent falls, positive for left knee pain, locking, positive for low back pain . Integumentary: No wounds, no lesions. No rash or pruritus. Positive for bruising. No change in hair or nails. Neurologic: No aphasia. No facial droop. No change in mentation. No head injury. No headache. No paralysis. No paresthesia. Psychiatric: No depression. No anxiety. No mood swings. Endocrine: No abnormal blood sugars. No weight change. PHYSICAL EXAMINATION: General: This is 75-year-old male who appears to be moderately ill laying down in bed in no distress. HEENT: Head is atraumatic, normocephalic, pupils were equal round reactive to light and recommendation, extraocular muscle movement were intact, sclera nonicteric, conjunctivae were pale, mucous membranes of the mouth are somewhat dry. Neck: Supple, no JVP, normal carotid upstroke bilaterally, no lymphadenopathy. Chest: Decreased breath sounds at the bases, few rhonchi, no extremity wheezes, no chest wall tenderness, no intercostal retractions. Heart: First heart sound is normal, second heart sound is normal there is systolic ejection murmur 2/6 left sternal border. Abdomen: Soft, nontender, nondistended, positive bowel sounds, no hepatosplenomegaly Extremities: There is no edema no calf tenderness DP + 1 bilaterally, left knee mildly tender to palpation with slightly swollen. Neurologic examination: Patient is awake alert and oriented X3, cranial nerves II-12 appear grossly intact, muscle power were 5 out of 5 in upper extremities and 5 out of 5 in bilateral lower extremities, deep tendon reflexes normal bilaterally. ASSESSMENT AND PLAN: 1. Septic arthritis of the left knee. Initial blood culture and fluid culture positive for staph aureus. Repeat blood culture ordered. Continue IV antibiotic in the form of kefzol per Dr. Strickland, orthopedic surgery consultation with Dr. Choi appreciated, status post I&D. 2. Lactic acidosis due to sepsis. Continue IV fluid resuscitation the form of normal saline at 25 mL an hour. 3. Thrombocytopenia area and likely related to sepsis hold heparin, continue to monitor the patient very closely, repeat the CBC in the next 24 hours. 4. Recent left heart catheterization with PCI of the RCA on 07/30/2020 Continue patient on aspirin 81 g once every day, Plavix 75 mg orally once every day, atenolol 50 mg once every day, atorvastatin 80 mg once every day, Imdur 60 g orally once every day. Cardiology consult appreciated. 5. Elevated troponin. Likely related to a prior intervention. Cardiology is following. Continue aspirin 81 mg daily, atorvastatin 80 mg at bedtime, Plavix 75 mg daily 6. Recent inferior wall ST elevation SC. Continue treatment as in paragraph #4. 7. Acute kidney injury 8. acute kidney injury secondary to acute n tubular necrosis and possible Contrast-induced nephropathy. Continue IV fluid resuscitation the form of normal saline at 1 25 mL an hour ultrasound of the kidneys, nephrology is following. 9. Hypertension and hypertensive cardiovascular disease. Discontinue Diovan 320/12.5 mg once every day, continue atenolol 50 mg orally once every day, continue to monitor the patient blood pressure very closely. 10. Hyperlipidemia. Continue patient on atorvastatin 80 mg orally once every day. 11. Diabetes mellitus type 2. Start the patient on sliding scale insulin along with Lantus 22 units at bedtime, discontinue Tradjenta 11. History of prostate cancer status post rotation. Stable at this time. 12. 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 Continue current pain management. 13. DVT prophylaxis. Bilateral knee-high ADAIR hose. Avoid heparin for now. 14. GI prophylaxis. Protonix 40 mg orally once every day. 15. Patient is full code. DISCHARGE PLAN: Home Objective - Vital Signs Vital signs: Vital Signs Temp 97.6 F 08/08/20 04:00 Pulse 72 08/08/20 04:00 Resp 20 08/08/20 04:00 BP 114/74 08/08/20 04:00 Pulse Ox 99 08/08/20 04:00 Intake & Output 08/07/20 08/08/20 08/08/20 18:59 06:59 18:59 Intake Total 590 20 Output Total 1350 460 Balance -760 -440 Weight 114 kg Intake: IV 310 20 Invasive Line 1 20 Invasive Line 3 20 20 Sodium Chloride 0.9% 1, 220 000 ml @ 20 mls/hr IV . Q24H LAURA Rx#:[id number] ceFAZolin 2 gm In Sodium 50 Chloride 0.9% 50 ml @ 100 mls/hr IVPB Q8H LAURA Rx#: [id number] Oral 280 Output: Drainage 50 60 Left Knee 50 60 Urine 1300 400 Uretheral (Shelley) 600 400 Other: Voiding Method Indwelling Catheter Indwelling Catheter - Labs CBC & Chem 7: 08/09/20 05:22 08/08/20 08:21 Labs: Abnormal Lab Results - Last 24 Hours (Table) 08/07/20 08/07/20 08/07/20 Range/Units 08:42 08:42 08:42 RBC 3.06 L (4.30-5.90) m/uL Hgb 9.8 L (13.0-17.5) gm/dL Hct 30.1 L (39.0-53.0) % Plt Count 75 L (150-450) k/uL Sodium 131 L (137-145) mmol/L Carbon Dioxide 19 L (22-30) mmol/L BUN 43 H (9-20) mg/dL Creatinine 3.02 H (0.66-1.25) mg/dL Glucose 228 H (74-99) mg/dL POC Glucose (mg/dL) (75-99) mg/dL Calcium 7.8 L (8.4-10.2) mg/dL Total Bilirubin 1.7 H (0.2-1.3) mg/dL AST 152 H (17-59) U/L ALT 59 H (4-49) U/L Troponin I 7.420 H* (0.000-0.034) ng/mL Total Protein 5.1 L (6.3-8.2) g/dL Albumin 2.8 L (3.5-5.0) g/dL 08/07/20 08/07/20 08/07/20 Range/Units 11:42 12:26 16:40 RBC (4.30-5.90) m/uL Hgb (13.0-17.5) gm/dL Hct (39.0-53.0) % Plt Count (150-450) k/uL Sodium (137-145) mmol/L Carbon Dioxide (22-30) mmol/L BUN (9-20) mg/dL Creatinine (0.66-1.25) mg/dL Glucose (74-99) mg/dL POC Glucose (mg/dL) 219 H 201 H (75-99) mg/dL Calcium (8.4-10.2) mg/dL Total Bilirubin (0.2-1.3) mg/dL AST (17-59) U/L ALT (4-49) U/L Troponin I 6.160 H* (0.000-0.034) ng/mL Total Protein (6.3-8.2) g/dL Albumin (3.5-5.0) g/dL 08/07/20 08/07/20 08/08/20 Range/Units 17:35 20:32 06:01 RBC (4.30-5.90) m/uL Hgb (13.0-17.5) gm/dL Hct (39.0-53.0) % Plt Count (150-450) k/uL Sodium (137-145) mmol/L Carbon Dioxide (22-30) mmol/L BUN (9-20) mg/dL Creatinine (0.66-1.25) mg/dL Glucose (74-99) mg/dL POC Glucose (mg/dL) 165 H 145 H (75-99) mg/dL Calcium (8.4-10.2) mg/dL Total Bilirubin (0.2-1.3) mg/dL AST (17-59) U/L ALT (4-49) U/L Troponin I 6.280 H* (0.000-0.034) ng/mL Total Protein (6.3-8.2) g/dL Albumin (3.5-5.0) g/dL Microbiology - Last 24 Hours (Table) 08/07/20 08:42 Blood Culture - Final Blood 08/05/20 15:25 Blood Culture Gram Stain - Final Blood Blood Culture - Final Staphylococcus aureus 08/05/20 15:46 Blood Culture Gram Stain - Final Blood Blood Culture - Final Staphylococcus aureus 08/06/20 18:00 Gram Stain - Preliminary Knee - Left Wound Culture - Preliminary Presumptive Staph aureus 08/06/20 18:00 Gram Stain - Preliminary Knee - Left Wound Culture - Preliminary Presumptive Staph aureus 08/05/20 16:47 Gram Stain - Preliminary Knee - Left Body Fluid Culture - Preliminary Staphylococcus aureus
[2020-08-09] MEDS ORDERED: METOPROLOL TARTRATE 5 MG/5 ML VIAL IVP PRN (08:52)
[2020-08-09] MEDS: HEPARIN SODIUM 1,000 UN/ML (10ML VL) IV PRN ×2 (08:59→16:20)
--- NOTE | 2020-08-09 09:17 | P.PN ---
Progress Note - Text Progress Note Date: 08/09/20 Orthopedic spine: History of present illness: Patient is a pleasant 75-year-old male who was seen and examined at bedside for follow-up evaluation for his ongoing cervical pain. He states his cervical pain has been ongoing prior to his admittance to the hospital. He'll see his pain is severe over the posterior cervical spine and of the posterior cervical spine to the occiput. He has pain over the trapezius bilaterally as well. He states today his symptoms of same as they were yesterday. He is able to perform some active range of motion bilateral upper extremities. Biceps and triceps against resistance and active range of motion the deltoids exacerbates his cervical pain. He has good active range of motion of the hands and wrists without difficulty today and without exacerbation of cervical pain. He did have a cervical MRI performed yesterday. He does admit to significant difficulty lying still for the MRI. He continues to be seen and examined by multiple medical providers including general surgery, neurology, cardiology, and medicine. General surgery may be planning to perform an upper GI scope. Care planning further evaluation for gastric outlet obstruction. He currently has an NG tube intact. Patient is also being seen and examined by orthopedics in regards to septic arthritis of his left knee. He does have a history of a left total knee replacement. Patient does have a history of previous cervical fusion at C5-6. Patient's other past medical history includes atrial fibrillation, coronary artery disease, diabetes mellitus, hyperlipidemia, and hypertension. Patient was previously found have significant elevated cardiac enzymes during initial evaluation. Blood cultures have been positive for Staphylococcus aureus. Physical exam: Patient is awake, alert, and oriented 3 Vital signs stable Good chest excursion with deep inspiration and expiration Some abdominal distention; NG tube intact Examination of the cervical spine reveals skin is intact with no abrasions, lacerations, or bruises; no erythema, purulence or signs of infection Pain with palpation over the trapezius bilaterally and posterior cervical spine up to the occiput Reduced range of motion of the cervical spine with adequate flexion, extension, and bilateral rotation Increased cervical pain with rotation bilaterally Contract Design Agent strength, thumb strength, interosseous strength, biceps strength, triceps strength, and shoulder strength positive sustained bilaterally Increased posterior cervical pain and trapezius pain with biceps and triceps against resistance Increased posterior cervical pain and trapezius pain with independent active range of motion of the deltoids bilaterally Generalized upper extremity weakness but patient is able to perform active range of motion independently of the bilateral upper extremities No upper extremity hyperreflexia bilaterally Hoffmans sign negative upper extremity bilaterally Pertinent studies: MRI of the cervical spine taken on 08/08/2020: No evidence of tumor; no epidural abscess; evidence of previous fusion at C5-6; no obvious sign of cord signal change; imaging significantly limited due to motion artifact; multilevel spondylosis; C3-4 posterior disc protrusion and facet arthropathy with uncovertebral joint hypertrophy resulting in some mass effect to the thecal sac; C4-5 disc osteophyte complex with some right neural foraminal encroachment; C6-7 degenerative disc disease, posterior extension disc osteophyte complex, facet arthropathy, and uncovertebral joint hypertrophy resulting in mild anterior mass effect of the thecal sac with bilateral neural foraminal encroachment Assessment: Cervical pain History cervical fusion C5-6 Cervical degenerative disc disease Cervical spondylosis Cervical neural foraminal narrowing Generalized weakness bilateral upper extremities Septicemia with staph aureus History left total knee arthroplasty Left knee pain Septic arthritis of the left knee Coronary artery disease Atrial fibrillation Diabetes mellitus Hyperlipidemia Hypertension Abdominal distention; NG tube currently in place Plan: 1. Patient has been discussed in detail with Dr. Brian Adkins. Imaging has been reviewed by myself and Dr. Brian Adkins. Patient does continue to have cervical pain and stiffness. He is not currently complaining of any upper extremity radiculopathy bilaterally. He has generalized weakness to bilateral upper extremities but is able to perform active range of motion of the bilateral upper extremities. He has no pain with interosseous, thumb extension, or inside sales associate bilaterally. He is able to perform active range of motion biceps and triceps into resistance but doing so exacerbates his cervical pain. He does have increased cervical pain with active range of motion independently of the deltoids. Reviewing cervical MRI imaging does show evidence of previous cervical fusion at C5-6. There was no evidence of epidural abscess. No evidence of tumor. We do not see any obvious sign of cord signal change. He does not have severe stenosis at his cervical spine. Although his cervical pain is significant for him, we do not currently feel the patient needs any acute surgical intervention in regards to his cervical spine. He should continue conservative treatment. Patient is currently being treated for multiple other medical diagnoses including septicemia with staph aureus, septic arthritis of the left knee, possible gastric outlet obstruction. He also has significant medical history which includes coronary artery disease, atrial fibrillation, diabetes mellitus, hyperlipidemia, and hypertension. At this time, we have not currently planned for any invasive treatment or further imaging regards to his cervical spine. It was discussed with the patient he could work through formal physical therapy during his admittance to the hospital if he was able to tolerate therapy. We will plan to follow him peripherally. If the patient has a change in his symptoms or fails to improve, we may be contacted for further follow-up evaluation. We will currently plan to have the patient follow up in the outpatient setting on an as-needed basis in regards to his cervical spine. He will need another extensive follow-up following discharge from orthopedics in regards to his left knee septic arthritis. 2. Patient will continue to be seen and examined by multiple other medical providers including medicine, cardiology, neurology, and orthopedics.
--- NOTE | 2020-08-09 09:56 | XR ---
2 view abdomen HISTORY: Gastric distention 2 views the abdomen submitted on 4 images Correlation prior exam 08/08/2020 This been interval placement of an orogastric tube which is looped overlying the upper abdomen. The g as distended stomach has resolved. No other significant interval change. IMPRESSION: Interval improvement in patient's gastric distention, placement of orogastric tube.
--- NOTE | 2020-08-09 10:05 | CT ---
EXAMINATION TYPE: CT brain wo con DATE OF EXAM: 08/09/2020 COMPARISON: 07/05/16 HISTORY: AMS CT DLP: 1137.[address] of the brain was performed. The ventricles, basal cisterns and sulci overlying the cerebral convexities demonstrate mild enlargem ent. A few scattered Focal calcifications seen. There is no evidence for intracranial hemorrhage or sulcal effacement. There is decreased attenuation about the periventricular white matter and deep white matter of both c erebral hemispheres, compatible with chronic small vessel ischemia. Differential diagnosis does inclu de demyelination. No mass effects are seen.No midline shift. Osseous calvarium is intact. If symptoms persist consider MRI. IMPRESSION: 1. Age related atrophic and chronic small vessel ischemic change without acute intracranial process s een at this time.
--- NOTE | 2020-08-09 10:17 | P.PN ---
Subjective Progress Note Date: 08/09/20 Principal diagnosis: Septic arthritis left knee. Bacteremia. Neck pain. Bilateral upper extremity weakness. History of total left knee arthroplasty. Status-post cardiac catheterization. This patient is a 75-year-old gentleman with a past medical history of diabetes, hypertension hyperlipidemia, prostates cancer, and recent cardiac catheterization that presented to emergency room on 08/05/2020 with new onset left knee pain. The pain had become worse over the past week or so since he's had a recent cardiac catheterization. The knee was aspirated by the emergency room department and purulent fluid was removed with high nucleated cell count in the fluid. Patient also has positive blood cultures. After discussing the surgical and nonsurgical treatment options with him at length, it was recommended an incision and drainage of the knee with retention of the implants. The patient was taken to the operating room on 08/06/2020 for I&D of the left knee with Dr. Raji Choi. Today is postoperative day #3. The patient is seen and examined bedside this morning. Nursing is bedside. Patient states he feels overall better compared to yesterday. Patient continues to experience pain in the left knee and the posterior neck, along with bilateral upper extremity weakness. Patient was seen and evaluated by Dr. Adkins and Dr. Damian with neurology. MRI of the cervical spine revealed no areas concerning for epidural abscess. Patient was also seen and examined by Dr. Hartman for possible gastric outlet obstruction. Patient is currently NPO with NG tube placed, the plan is for endoscopy on Wednesday08/12/20 per nursing. In regards to the left knee, patient complains of mild pain, he states this pain is slightly better than yesterday. He has not been able to sit up in bed or in the chair. Patient continues to have significant amount of drainage in the Hemovac. Per nursing, 75 mLs of drainage was obtained from the hemovac yesterday, and 45 mLs have been obtained from the hemovac drain today, since midnight. Intraoperative cultures taken of the left knee final result stap h aureus. Repeat blood cultures obtained 08/08/20 are positive. He has no new complaints at bedside this morning. His vitals signs are currently stable. Patient continues to be evaluated by multiple medical specialities including IM, cardiology, neurology, surgery, nephrology, infectious disease, orthopedic spine surgery. Objective - Vital Signs Vital signs: Vital Signs Temp 96.9 F L 08/09/20 07:55 Pulse 73 08/09/20 07:55 Resp 16 08/09/20 07:55 BP 110/62 08/09/20 07:55 Pulse Ox 97 08/09/20 07:55 Intake & Output 08/08/20 08/09/20 08/09/20 18:59 06:59 18:59 Intake Total 100 67.667 72.163 Output Total 425 700 Balance -325 -632.333 72.163 Weight 132.5 kg Intake: Intake, IV Titration 67.667 72.163 Amount Heparin Sod,Pork in 0.45% 67.667 72.163 NaCl 25,000 unit In 0.45 % NaCl 1 250ml.bag @ 8. 7719 UNITS/KG/HR 10 mls/ hr IV .Q24H [facility] Rx#: [id number] Oral 100 Output: Drainage 35 25 Left Knee 35 25 Urine 390 675 Uretheral (Shelley) 390 150 Other: Voiding Method Indwelling Catheter Indwelling Catheter - Exam On examination, the patient is lying in bed in no apparent distress. He is alert, appears mildly confused, but he is able to answer questions appropriately. On examination of the left lower extremity, there is a postoperative dressing in place with no saturation. No bleeding or drainage to the dressing. Hemovac is intact. Patient has full range of motion of the foot and ankle without difficulty or pain. Dorsalis pedis pulse is easily palpable. Motor and sensory function is intact of the left lower extremity. The calf is soft and nontender to palpation. - Labs CBC & Chem 7: 08/09/20 05:22 08/08/20 08:21 Labs: Abnormal Lab Results - Last 24 Hours (Table) 08/08/20 08/08/20 08/08/20 Range/Units 08:21 11:44 16:39 RBC (4.30-5.90) m/uL Hgb (13.0-17.5) gm/dL Hct (39.0-53.0) % Plt Count (150-450) k/uL Lymphocytes # (1.0-4.8) k/uL APTT (22.0-30.0) sec POC Glucose (mg/dL) 145 H 141 H (75-99) mg/dL Phosphorus (2.5-4.5) mg/dL Troponin I 3.940 H* (0.000-0.034) ng/mL 08/08/20 08/08/20 08/09/20 Range/Units 20:14 21:04 05:22 RBC 2.57 L (4.30-5.90) m/uL Hgb 8.5 L (13.0-17.5) gm/dL Hct 24.7 L (39.0-53.0) % Plt Count 110 L (150-450) k/uL Lymphocytes # 0.3 L (1.0-4.8) k/uL APTT 78.9 H (22.0-30.0) sec POC Glucose (mg/dL) 144 H (75-99) mg/dL Phosphorus (2.5-4.5) mg/dL Troponin I (0.000-0.034) ng/mL 08/09/20 08/09/20 Range/Units 05:22 05:46 RBC (4.30-5.90) m/uL Hgb (13.0-17.5) gm/dL Hct (39.0-53.0) % Plt Count (150-450) k/uL Lymphocytes # (1.0-4.8) k/uL APTT (22.0-30.0) sec POC Glucose (mg/dL) 152 H (75-99) mg/dL Phosphorus 4.7 H (2.5-4.5) mg/dL Troponin I (0.000-0.034) ng/mL Microbiology - Last 24 Hours (Table) 08/08/20 08:21 Blood Culture Gram Stain - Preliminary Blood 08/08/20 08:21 Blood Culture - Final Blood 08/07/20 08:42 Blood Culture Gram Stain - Preliminary Blood Blood Culture - Preliminary Presumptive Staph aureus 08/06/20 18:00 Anaerobic Culture - Preliminary Knee - Left 08/06/20 18:00 Anaerobic Culture - Preliminary Knee - Left 08/07/20 17:45 Blood Culture - Preliminary Blood No Growth after 24 hours 08/06/20 18:00 Gram Stain - Final Knee - Left Wound Culture - Final Staphylococcus aureus 08/06/20 18:00 Gram Stain - Final Knee - Left Wound Culture - Final Staphylococcus aureus 08/05/20 16:47 Gram Stain - Final Knee - Left Body Fluid Culture - Final Staphylococcus aureus Assessment and Plan Assessment: Septic arthritis left knee status-post I&D 08/06/20. Bacteremia with staph aureus. Neck pain. Bilateral upper extremity weakness. History of total left knee arthroplasty in 2018. Status-post cardiac catheterization. Plan: - The patient was discussed with Dr. Raji Choi. Due to the amount of output from the Hemovac drain, we will plan to leave in until tomorrow Wednesday08/10/20. We will also plan to perform the first post-operative dressing change tomorrow. - Medical management per multiple medical specialities following including IM, cardiology, neurology, surgery, nephrology, infectious disease, orthopedic spine surgery. - We will follow patient closely and make recommendations as needed.
[2020-08-09] MEDS: ASPIRIN 300 MG SUPP RECTAL SCH (11:00)
[2020-08-09 11:46] LABS: Calcium 7.7 mg/dL (8.4-10.2); Potassium 3.9 mmol/L (3.5-5.1)
[2020-08-09 12:06] LABS: Glucose,Whole Blood 154 mg/dL (75-99)
--- NOTE | 2020-08-09 12:29 | P.PN ---
<Glenna Melton - Last Filed: 08/09/20 12:13> Subjective Progress Note Date: 08/09/20 CHIEF COMPLAINT: Fever and knee pain HISTORY OF PRESENT ILLNESS: Surgical service is following in regards to patient's gastric distention and ileus. Patient hospitalized with fevers and knee pain and evidence of septic arthritis. Patient also having neck and back pain evaluated by spinal service. Case discussed with spinal service the review the MRI and they saw no evidence of any epidural abscess or tumor to contribute to patient's symptoms. And recommended just conservative treatment. Patient lying in bed. He has limited mobility. He has NG tube in place with 1 L output this morning. He does report abdominal pain. Nursing staff has just given pain medication. Also patient just had returned back from x-rays and CAT scan of brain. and did require to be moved a lot for imaging. Patient denies any bowel movements or passing gas. Patient had computed tomography scan of brain that showed age-related atrophic and chronic small vessel ischemic changes without acute intracranial process. Abdominal x-ray shows interval improvement in patient's gastric distention. Afebrile WBC 5.5 hemoglobin 8.5 platelets 110 c reatinine 2.11 PHYSICAL EXAM: VITAL SIGNS: Reviewed. GENERAL: Well-developed in no acute distress. HEENT: No sclera icterus. Extraocular movements grossly intact. Moist buccal mucosa. Head is atraumatic, normocephalic. ABDOMEN: Soft. Distended. Diffuse tenderness NEUROLOGIC: Alert and oriented. Cranial nerves II through XII grossly intact. ASSESSMENT: 1. Gastric distention: Repeat abdominal x-ray showing interval improvement to patient's gastric distention PLAN: -We'll plan for EGD on 08/12/[address] Hartman to evaluate for gastric outlet obstruction -Continue NG tube for decompression -Continue IV fluids -Continue pain medications as needed -Continue supportive care Physician Bean Roaster note has been reviewed by physician. Signing provider agrees with the documented findings, assessment, and plan of care. Objective - Vital Signs Vital signs: Vital Signs Temp 96.9 F L 08/09/20 07:55 Pulse 74 08/09/20 10:14 Resp 16 08/09/20 07:55 BP 110/62 08/09/20 07:55 Pulse Ox 97 08/09/20 07:55 Intake & Output 08/08/20 08/09/2021 18:59 06:59 18:59 Intake Total 100 67.667 72.163 Output Total 425 700 Balance -325 -632.333 72.163 Weight 132.5 kg Intake: Intake, IV Titration 67.667 72.163 Amount Heparin Sod,Pork in 0.45% 67.667 72.163 NaCl 25,000 unit In 0.45 % NaCl 1 250ml.bag @ 8. 7719 UNITS/KG/HR 10 mls/ hr IV .Q24H [facility] Rx#: [id number] Oral 100 Output: Drainage 35 25 Left Knee 35 25 Urine 390 675 Uretheral (Shelley) 390 150 Other: Voiding Method Indwelling Catheter Indwelling Catheter Indwelling Catheter - Labs CBC & Chem 7: 08/09/20 05:22 08/09/20 10:36 Labs: Abnormal Lab Results - Last 24 Hours (Table) 08/08/20 08/08/20 08/08/20 Range/Units 08:21 16:39 20:14 RBC (4.30-5.90) m/uL Hgb (13.0-17.5) gm/dL Hct (39.0-53.0) % Plt Count (150-450) k/uL Lymphocytes # (1.0-4.8) k/uL APTT (22.0-30.0) sec Sodium (137-145) mmol/L Carbon Dioxide (22-30) mmol/L BUN (9-20) mg/dL Creatinine (0.66-1.25) mg/dL Glucose (74-99) mg/dL POC Glucose (mg/dL) 141 H 144 H (75-99) mg/dL Calcium (8.4-10.2) mg/dL Phosphorus (2.5-4.5) mg/dL Troponin I 3.940 H* (0.000-0.034) ng/mL 08/08/20 08/09/20 08/09/20 Range/Units 21:04 05:22 05:22 RBC 2.57 L (4.30-5.90) m/uL Hgb 8.5 L (13.0-17.5) gm/dL Hct 24.7 L (39.0-53.0) % Plt Count 110 L (150-450) k/uL Lymphocytes # 0.3 L (1.0-4.8) k/uL APTT 78.9 H (22.0-30.0) sec Sodium (137-145) mmol/L Carbon Dioxide (22-30) mmol/L BUN (9-20) mg/dL Creatinine (0.66-1.25) mg/dL Glucose (74-99) mg/dL POC Glucose (mg/dL) (75-99) mg/dL Calcium (8.4-10.2) mg/dL Phosphorus 4.7 H (2.5-4.5) mg/dL Troponin I (0.000-0.034) ng/mL 08/09/20 08/09/20 08/09/20 Range/Units 05:46 10:36 12:04 RBC (4.30-5.90) m/uL Hgb (13.0-17.5) gm/dL Hct (39.0-53.0) % Plt Count (150-450) k/uL Lymphocytes # (1.0-4.8) k/uL APTT (22.0-30.0) sec Sodium 135 L (137-145) mmol/L Carbon Dioxide 16 L (22-30) mmol/L BUN 58 H (9-20) mg/dL Creatinine 2.11 H (0.66-1.25) mg/dL Glucose 150 H (74-99) mg/dL POC Glucose (mg/dL) 152 H 154 H (75-99) mg/dL Calcium 7.7 L (8.4-10.2) mg/dL Phosphorus (2.5-4.5) mg/dL Troponin I (0.000-0.034) ng/mL Microbiology - Last 24 Hours (Table) 08/08/20 08:21 Blood Culture Gram Stain - Preliminary Blood 08/08/20 08:21 Blood Culture - Final Blood 08/07/20 08:42 Blood Culture Gram Stain - Preliminary Blood Blood Culture - Preliminary Presumptive Staph aureus 08/06/20 18:00 Anaerobic Culture - Preliminary Knee - Left 08/06/20 18:00 Anaerobic Culture - Preliminary Knee - Left 08/07/20 17:45 Blood Culture - Preliminary Blood No Growth after 24 hours 08/06/20 18:00 Gram Stain - Final Knee - Left Wound Culture - Final Staphylococcus aureus 08/06/20 18:00 Gram Stain - Final Knee - Left Wound Culture - Final Staphylococcus aureus 08/05/20 16:47 Gram Stain - Final Knee - Left Body Fluid Culture - Final Staphylococcus aureus <PrestonAzalea [email or web address] - Last Filed: 08/09/20 16:48> Subjective As above. Patient's pain much improved after nasogastric tube placement. Output as described above. Minimal tenderness on exam. We'll plan EGD on Wednesday. Keep nasogastric tube in place for now. Objective - Vital Signs Vital signs: Vital Signs Temp 96.6 F L 08/09/20 16:04 Pulse 76 08/09/20 15:34 Resp 16 08/09/20 15:34 BP 136/74 08/09/20 15:34 Pulse Ox 100 08/09/20 15:34 Intake & Output 08/08/20 08/09/20 08/09/20 18:59 06:59 18:59 Intake Total 100 67.667 1257.764 Output Total 425 700 500 Balance -325 -632.333 757.764 Weight 132.5 kg 132.5 kg Intake: IV 1090 Invasive Line 3 10 Invasive Line 4 30 Sodium Chloride 0.9% 1, 1000 000 ml @ 125 mls/hr IV . Q8H [facility] Rx#:[id number] ceFAZolin 1,000 mg In 50 Sodium Chloride 0.9% 50 ml @ 100 mls/hr IVPB Q12HR [facility] Rx#:[id number] Intake, IV Titration 67.667 167.764 Amount Heparin Sod,Pork in 0.45% 67.667 167.764 NaCl 25,000 unit In 0.45 % NaCl 1 250ml.bag @ 8. 7719 UNITS/KG/HR 10 mls/ hr IV .Q24H [facility] Rx#: [id number] Oral 100 Output: Drainage 35 25 15 Left Knee 35 25 15 Urine 390 675 485 Uretheral (Shelley) 390 150 485 Other: Voiding Method Indwelling Catheter Indwelling Catheter Indwelling Catheter - Labs CBC & Chem 7: 08/09/20 05:22 08/09/20 10:36 Labs: Abnormal Lab Results - Last 24 Hours (Table) 08/08/20 08/08/20 08/09/20 Range/Units 20:14 21:04 05:22 RBC 2.57 L (4.30-5.90) m/uL Hgb 8.5 L (13.0-17.5) gm/dL Hct 24.7 L (39.0-53.0) % Plt Count 110 L (150-450) k/uL Lymphocytes # 0.3 L (1.0-4.8) k/uL APTT 78.9 H (22.0-30.0) sec Sodium (137-145) mmol/L Carbon Dioxide (22-30) mmol/L BUN (9-20) mg/dL Creatinine (0.66-1.25) mg/dL Glucose (74-99) mg/dL POC Glucose (mg/dL) 144 H (75-99) mg/dL Calcium (8.4-10.2) mg/dL Phosphorus (2.5-4.5) mg/dL 08/09/20 08/09/20 08/09/20 Range/Units 05:22 05:46 10:36 RBC (4.30-5.90) m/uL Hgb (13.0-17.5) gm/dL Hct (39.0-53.0) % Plt Count (150-450) k/uL Lymphocytes # (1.0-4.8) k/uL APTT (22.0-30.0) sec Sodium 135 L (137-145) mmol/L Carbon Dioxide 16 L (22-30) mmol/L BUN 58 H (9-20) mg/dL Creatinine 2.11 H (0.66-1.25) mg/dL Glucose 150 H (74-99) mg/dL POC Glucose (mg/dL) 152 H (75-99) mg/dL Calcium 7.7 L (8.4-10.2) mg/dL Phosphorus 4.7 H (2.5-4.5) mg/dL 08/09/20 08/09/20 Range/Units 12:04 15:59 RBC (4.30-5.90) m/uL Hgb (13.0-17.5) gm/dL Hct (39.0-53.0) % Plt Count (150-450) k/uL Lymphocytes # (1.0-4.8) k/uL APTT 34.9 H (22.0-30.0) sec Sodium (137-145) mmol/L Carbon Dioxide (22-30) mmol/L BUN (9-20) mg/dL Creatinine (0.66-1.25) mg/dL Glucose (74-99) mg/dL POC Glucose (mg/dL) 154 H (75-99) mg/dL Calcium (8.4-10.2) mg/dL Phosphorus (2.5-4.5) mg/dL Microbiology - Last 24 Hours (Table) 08/08/20 08:21 Blood Culture Gram Stain - Preliminary Blood 08/08/20 08:21 Blood Culture - Final Blood 08/07/20 08:42 Blood Culture Gram Stain - Preliminary Blood Blood Culture - Preliminary Presumptive Staph aureus 08/06/20 18:00 Anaerobic Culture - Preliminary Knee - Left 08/06/20 18:00 Anaerobic Culture - Preliminary Knee - Left 08/07/20 17:45 Blood Culture - Preliminary Blood No Growth after 24 hours 08/06/20 18:00 Gram Stain - Final Knee - Left Wound Culture - Final Staphylococcus aureus 08/06/20 18:00 Gram Stain - Final Knee - Left Wound Culture - Final Staphylococcus aureus 08/05/20 16:47 Gram Stain - Final Knee - Left Body Fluid Culture - Final Staphylococcus aureus Assessment and Plan (1) Gastric distention Current Visit: Yes Status: Acute Code(s): K31.89 - OTHER DISEASES OF STOMACH AND DUODENUM SNOMED Code(s): 414348414
[2020-08-09] MEDS: METOPROLOL TARTRATE 5 MG/5 ML VIAL IVP SCH ×2 (12:42→17:27)
--- NOTE | 2020-08-09 13:20 | P.PN ---
Subjective HISTORY OF PRESENT ILLNESS: This is a 75-year-old male with a past medical history significant for hypertension, hyperlipidemia, diabetes mellitus, osteoarthritis, GERD, and coronary artery disease. Patient follows in the office with Dr. Valencia. We have been asked to see the patient in consultation for cardiac clearance. Patient is scheduled to undergo I&D of left knee this afternoon with orthopedics. Patient was recently hospitalized earlier this month secondary to inferior STEMI. He was taken to the veterinary laboratory diagnostician but Dr. Vora was unsuccessful at advancing balloon or artherectomy after multiple attempts per his cath report. Echocardiogram completed at that time revealed ejection fraction of 25-30%. Patient was transfe rred to [facility] where he states he had two stents placed. He was placed on aspirin and plavix. Patient examined at the bedside this morning. He states his left knee started hurting shortly after he was discharged from [facility]. Patient denies any chest pain or pressure. He denies shortness of breath. Patient states he is able to lay flat in bed without any dyspnea. 08/07 Patient seen and examined. Per nursing patient has been having extreme neck and back pain as well knee pain and therefore received narcotics. Currently somewhat lethargic and slow to answer questions with recent Dilaudid given, however he denies any chest pain or pressure which he had previously with his MO. Troponins were mildly increasing yesterday, repeat this morning pending. Platelets also have been decreasing. Blood cultures and knee cultures positive for staph aureus. 08/08 Patient seen and examined. Patient has been having increased abdominal fullness with concern of bowel obstruction and therefore NG tube was placed, currently to suction. Patient's troponins peaked and are now on the way down. He denies any chest pain. Has continued back and knee pain. Echo taken and awaiting read. 08/09 Patient seen and examined. Patient resting more comfortably today. Still somewhat confused however denies any chest pain, pressure, shortness breath. Patient still has NG tube in place. Patient placed on a heparin drip yesterday. Cr mildly improved to 2.1 today. REVIEW OF SYSTEMS: At the time of my exam: CONSTITUTIONAL: Denies fever or chills. HEENT: Denies blurred vision, vision changes, or eye pain. Denies hemoptysis CARDIOVASCULAR: Denies chest pain. Denies orthopnea. Denies PND. Denies palpitations RESPIRATORY: Denies shortness of breath. GASTROINTESTINAL: Denies abdominal pain. Denies nausea or vomiting. HEMATOLOGIC: Denies bleeding disorders. GENITOURINARY: Denies any blood in urine. SKIN: Denies pruitis. Denies rash. PHYSICAL EXAM: VITAL SIGNS: Reviewed. GENERAL: Well-developed in no acute distress. ill appearing HEENT: Head is normocephalic. Pupils are equal, round. Sclerae anicteric. Mucous membranes of the mouth are moist. Neck supple. No JVD or thyromegaly LUNGS: Respirations even and unlabored. Lungs essentially clear to auscultation bilaterally. HEART: Regular rate and rhythm. S1 and S2 heard. ABDOMEN: Soft. Nondistended. Nontender. EXTREMITIES: No clubbing or cyanosis. Peripheral pulses intact. Left knee tender with palpation. Left knee swollen with slightly decreased range of motio n due to pain. NEUROLOGIC: Awake and appears mildly confused ASSESSMENT: Septic arthritis of left knee Recent inferior STEMI Coronary artery disease with PCI to RCA Abnormal troponins, no evidence of ACS Ischemic cardiomyopathy, EF 25-30% Hypertension Hyperlipidemia Diabetes mellitus Staph aureus bacteremia Thrombocytopenia. NSTEMI likely type 2 mechanism from sepsis Possible bowel obstruction, NG tube in place [facility] PLAN: Continue dual antiplatelet therapy with aspirin and plavix. Continue heparin drip. 2D echo performed on 08/07 and will review and locate final read. Patient without anginal symptoms such as chest pain which he had with his prior MO. Suspect Type 2 NSTEMI from sepsis. Further recommendations pending patient course. Prognosis guarded. Objective - Vital Signs Vital signs: Vital Signs Temp 96.9 F L 08/09/20 07:55 Pulse 74 08/09/20 10:14 Resp 16 08/09/20 07:55 BP 110/62 08/09/20 07:55 Pulse Ox 97 08/09/20 07:55 Intake & Output 08/08/20 08/09/20 08/09/20 18:59 06:59 18:59 Intake Total 100 67.667 1122.163 Output Total 425 700 275 Balance -325 -632.333 847.163 Weight 132.5 kg Intake: IV 1050 Sodium Chloride 0.9% 1, 1000 000 ml @ 125 mls/hr IV . Q8H [facility] Rx#:[id number] ceFAZolin 1,000 mg In 50 Sodium Chloride 0.9% 50 ml @ 100 mls/hr IVPB Q12HR [facility] Rx#:[id number] Intake, IV Titration 67.667 72.163 Amount Heparin Sod,Pork in 0.45% 67.667 72.163 NaCl 25,000 unit In 0.45 % NaCl 1 250ml.bag @ 8. 7719 UNITS/KG/HR 10 mls/ hr IV .Q24H [facility] Rx#: [id number] Oral 100 Output: Drainage 35 25 15 Left Knee 35 25 15 Urine 390 675 260 Uretheral (Shelley) 390 150 260 Other: Voiding Method Indwelling Catheter Indwelling Catheter Indwelling Catheter - Labs CBC & Chem 7: 08/09/20 05:22 08/09/20 10:36 Labs: Abnormal Lab Results - Last 24 Hours (Table) 08/08/20 08/08/20 08/08/20 Range/Units 08:21 16:39 20:14 RBC (4.30-5.90) m/uL Hgb (13.0-17.5) gm/dL Hct (39.0-53.0) % Plt Count (150-450) k/uL Lymphocytes # (1.0-4.8) k/uL APTT (22.0-30.0) sec Sodium (137-145) mmol/L Carbon Dioxide (22-30) mmol/L BUN (9-20) mg/dL Creatinine (0.66-1.25) mg/dL Glucose (74-99) mg/dL POC Glucose (mg/dL) 141 H 144 H (75-99) mg/dL Calcium (8.4-10.2) mg/dL Phosphorus (2.5-4.5) mg/dL Troponin I 3.940 H* (0.000-0.034) ng/mL 08/08/20 08/09/20 08/09/20 Range/Units 21:04 05:22 05:22 RBC 2.57 L (4.30-5.90) m/uL Hgb 8.5 L (13.0-17.5) gm/dL Hct 24.7 L (39.0-53.0) % Plt Count 110 L (150-450) k/uL Lymphocytes # 0.3 L (1.0-4.8) k/uL APTT 78.9 H (22.0-30.0) sec Sodium (137-145) mmol/L Carbon Dioxide (22-30) mmol/L BUN (9-20) mg/dL Creatinine (0.66-1.25) mg/dL Glucose (74-99) mg/dL POC Glucose (mg/dL) (75-99) mg/dL Calcium (8.4-10.2) mg/dL Phosphorus 4.7 H (2.5-4.5) mg/dL Troponin I (0.000-0.034) ng/mL 08/09/20 08/09/20 08/09/20 Range/Units 05:46 10:36 12:04 RBC (4.30-5.90) m/uL Hgb (13.0-17.5) gm/dL Hct (39.0-53.0) % Plt Count (150-450) k/uL Lymphocytes # (1.0-4.8) k/uL APTT (22.0-30.0) sec Sodium 135 L (137-145) mmol/L Carbon Dioxide 16 L (22-30) mmol/L BUN 58 H (9-20) mg/dL Creatinine 2.11 H (0.66-1.25) mg/dL Glucose 150 H (74-99) mg/dL POC Glucose (mg/dL) 152 H 154 H (75-99) mg/dL Calcium 7.7 L (8.4-10.2) mg/dL Phosphorus (2.5-4.5) mg/dL Troponin I (0.000-0.034) ng/mL Microbiology - Last 24 Hours (Table) 08/08/20 08:21 Blood Culture Gram Stain - Preliminary Blood 08/08/20 08:21 Blood Culture - Final Blood 08/07/20 08:42 Blood Culture Gram Stain - Preliminary Blood Blood Culture - Preliminary Presumptive Staph aureus 08/06/20 18:00 Anaerobic Culture - Preliminary Knee - Left 08/06/20 18:00 Anaerobic Culture - Preliminary Knee - Left 08/07/20 17:45 Blood Culture - Preliminary Blood No Growth after 24 hours 08/06/20 18:00 Gram Stain - Final Knee - Left Wound Culture - Final Staphylococcus aureus 08/06/20 18:00 Gram Stain - Final Knee - Left Wound Culture - Final Staphylococcus aureus 08/05/20 16:47 Gram Stain - Final Knee - Left Body Fluid Culture - Final Staphylococcus aureus
--- NOTE | 2020-08-09 15:00 | ECHOF ---
Referral Reason:LV function and rule out endocarditis MEASUREMENTS -------- HEIGHT: 0.0 cm WEIGHT: 0.0 kg BP: RVIDd: 4.3 cm (< 3.3) RAP: 5.00 mmHg RVSP: 22.55 mmHg FINDINGS -------- Sinus rhythm. Echo Done 07/27/20: Limited Study tp r/o vegetation. Overall left ventricular systolic function is low-normal with, an EF between 50 - 55 %. CONCLUSIONS -------- 1. Echo Done 07/27/20: Limited Study tp r/o vegetation. 2. Overall left ventricular systolic function is low-normal with, an EF between 50 - 55 %. COMPLIANCE TESTER: Briseyda Juares RDCS
--- NOTE | 2020-08-09 15:18 | P.PN ---
Subjective Progress Note Date: 08/09/20 HISTORY OF PRESENT ILLNESS: This is a 75-year-old male one of my patient with previous medical history significant for coronary artery disease status post percutaneous coronary int ervention and stent placement last one was in 12/13/2019 in the mid RCA at that time he was found to have a totally occluded obtuse marginal one of the LCx, with collaterals from the PDA, hypertension and hypertensive cardio vascular disease, hyperlipidemia, diabetes mellitus type 2, diabetic polyneuropathy, 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 as well as radio frequency ablation, prostate cancer status post radiation therapy, patient took himself off the Plavix due to significant bruising and bleeding against his body builder recommendation and he was taken a baby aspirin alone, patient presented to the emergency department at [facility] on 07/28/2020 with what appears to be an inferior wall ST elevation myocardial infarction patient was taken to the pathology laboratory technologist and an attempted angioplasty of a computed occluded RCA had failed and the patient was transferred to [facility] for complex angioplasty of the occluded RCA, apparently patient did have 2 stents placement in the RCA and he was discharged from [facility] and patient has been getting more at all with poor appetite and his having some issues with his left knee not able to walk on the knee associated with knee buckling and locking patient had lost his appetite, he ended up coming to the emergency department at [facility] today after his daughter contacted by staff and they directed her to go to the emergency department for evaluation of possible septic knee, patient was seen and evaluated in the ER he had temperature and his white count were normal, her d-dimer was elevated his troponin was slightly elevated as well, patient was started on IV antibiotic in the form of vancomycin as well as Zosyn, blood cultures will be obtained, aspiration of the left knee showed cloudy fluid the result of which still pending at the time of dictation orthopedic surgery consultation was obtained from Dr. Choi, patient will be admitted to hospital for further evaluation, his platelet count were down to 62,000 and his lactic acid was elevated suggestive of sepsis. 08/06: Patient is seen today in follow-up. COVID-[address] angios the chest showed no large central pulmonary emboli. Motion artifact of the bilateral lungs without focal airspace opacities. Fatty liver. Venous ultrasound was negative for DVT of the left lower extremity. Patient's home medication list needs to be updated. Will add and Lantus 18 units at bedtime, Plavix 75 mg daily, Januvia. Patient's nurse was updated that the patient's medication list needs to be confirmed. He has been seen by Dr. Choi and plan for I&D of the left knee today. Patient is currently on vancomycin IV and Zosyn. Patient has been afebrile, heart rate 104, respiratory rate 26, blood pressure 125/65, pulse ox 96% on room air. Repeat lactic acid is 8.3. Repeat troponin 3.790. WBC 7.7, hemoglobin 10.6. Sodium 128, potassium 3.5, chloride 98, CO2 18, BUN 25 and creatinine 1.62. Blood sugar 317. Calcium 7.6. Magnesium 1.8. Total bilirubin 3.1, AST 85, ALT 55, alkaline phosphatase 37. Fluid studies reveal RBC 3600, nucleated cells 62,000, polynuclear WBCs 85, and mononuclear WBCs 15, glucose 104, total protein 3330. Crystals pending. Consult also in place with cardiology and Dr. Strickland. 08/07: Has been afebrile, heart rate 103, blood pressure 116/61, pulse ox 96% on 2 L nasal cannula. Repeat troponins were 4.390 and 5.6. Blood sugars are running between 178 and 222. Blood culture is presumptive staph aureus on 2 specimens and fluid culture from the knee is also presumptive staph aureus. Repeat blood culture will be ordered today. Fluid analysis showed no crystals. Patient has been seen by cardiology and cleared for surgery. Patient subsequently underwent incision and drainage of the left total knee. The patient has also been followed by Dr. Chacon 8 and covered with antibiotics on Kefzol 2 g IV piggyback every 8 hours. Repeat blood work reveals WBC of 8.4, hemoglobin 9.8, platelet count 75. Sodium 131, potassium 3.9, chloride 99, CO2 19, BUN 43 and creatinine 3.02. Blood sugars are running between 178 and 222. Total bilirubin 1.7, AST 152, ALT 59. Troponin is 7.420. Radiology continues to follow. Diovan will be discontinued and consult placed with nephrology. 08/08: Patient is feeling more sick today with increased abdominal distention and increased hiccups, he is having very poor appetite is not able to tolerate his diet, he is requiring oxygen, chest x-ray and abdominal x-ray showed a gastric outlet obstruction, NG tube was placed and surgical consultation was obtained, continue IV fluid, patient will be seen in consultation by ICU for possible transfer to the intensive care unit due to his multiple medical issues. 08/09: Patient is laying down in bed he is feeling a bit better today he continues to have his NG tube in place, his stomach is less distended, less and she output, patient was started on heparin drip, he would be started on aspirin 300 mg per rectum, since is nothing by mouth we will start the patient on Lopressor 2.5 mg IV push every 6 hours around the clock hold for systolic blood pressure less than 100 or heart rate less than 55, patient has been followed by infectious disease, cardiology, pulmonary, as well as general surgery, we will maintain the patient on current treatment plan, we'll continue to follow very closely. REVIEW OF SYSTEMS: Constitutional: Denies fever, denies chills, no night sweats, fatigue , lethargy and sleeping and weight loss. HEENT: No headache. No blurred vision or double vision, no loss of vision. No loss of Hearing, no ringing in the ears, no dizziness. No nasal drainage or congestion. No epistaxis. No sore throat. Respiratory: No shortness of breath, no cough, no sputum production. No wheezing. Reports dyspnea with activity. Cardiovascular: No chest pain, no lower extremity edema. No palpitations. No paroxysmal nocturnal dyspnea. No orthopnea. No lightheadedness or dizziness. No syncopal episodes. Gastrointestinal: Reports no abdominal pain. No nausea, vomiting. No diarrhea. No constipation. No bloody or tarry stools reports loss of appetite. Genitourinary: No dysuria, increased frequency, urgency. No urinary retention. Musculoskeletal: Positive for myalgias. positive for muscle weakness, Positive for gait dysfunction, no frequent falls, positive for left knee pain, locking, positive for low back pain . Integumentary: No wounds, no lesions. No rash or pruritus. Positive for bruising. No change in hair or nails. Neurologic: No aphasia. No facial droop. No change in mentation. No head injury. No headache. No paralysis. No paresthesia. Psychiatric: No depression. No anxiety. No mood swings. Endocrine: No abnormal blood sugars. No weight change. PHYSICAL EXAMINATION: General: This is 75-year-old male who appears to be moderately ill does not appear to be in acute distress. HEENT: Head is atraumatic, normocephalic, pupils were equal round reactive to light and recommendation, extraocular muscle movement were intact, sclera nonicteric, conjunctivae were pale, mucous membranes of the mouth are somewhat dry, NG tube in place. Neck: Supple, no JVP, normal carotid upstroke bilaterally, no lymphadenopathy. Chest: Decreased breath sounds at the bases, few rhonchi, no extremity wheezes, no chest wall tenderness, no intercostal retractions. Heart: First heart sound is normal, second heart sound is normal there is systolic ejection murmur 2/6 left sternal border. Abdomen: Soft, , nondi mild tenderness to the epigastric area distended, positiv e bowel sounds, no hepatosplenomegaly Extremities: There is no edema no calf tenderness DP + 1 bilaterally, left knee mildly tender to palpation with slightly swollen. Neurologic examination: Patient is awake alert and oriented X3, cranial nerves II-12 appear grossly intact, muscle power were 5 out of 5 in upper extremities and 5 out of 5 in bilateral lower extremities, deep tendon reflexes normal bilaterally. ASSESSMENT AND PLAN: 1. Septic arthritis of the left knee. Initial blood culture and fluid culture positive for staph aureus. Repeat blood culture ordered. Continue IV antibiotic in the form of kefzol per Dr. Strickland, orthopedic surgery consultation with Dr. Choi appreciated, status post I&D. 2. Lactic acidosis due to sepsis. Continue IV fluid resuscitation the form of normal saline at 125 mL an hour. 3. Thrombocytopenia area and likely related to sepsis hold heparin, continue to monitor the patient very closely, repeat the CBC in the next 24 hours. 4. Recent left heart catheterization with PCI of the RCA on 07/30/2020 Continue patient on aspirin 300 mg per rectum, Lopressor 2.5 mg IV push every 6 hours, and heparin drip. 5. Elevated troponin possibly due to prior intervention possibly non-ST elevation IA . Cardiology is following, continue heparin drip, keep PTT therapeutic, start aspirin 300 mg per rectum once every day, start Lopressor 2.5 mg IV push every 6 hours around the clock. 6. Recent inferior wall ST elevation IA. Continue treatment as in paragraph #4. 7. Acute kidney injury secondary to acute tubular necrosis and hypotension with possible sepsis induced and contrast-induced nephropathy. Monitor the patient very closely continue IV fluid monitor CBC CMP magnesium or phosphorus per 8. acute kidney injury secondary to acute n tubular necrosis and possible Contrast-induced nephropathy. Continue IV fluid resuscitation the form of normal saline at 1 25 mL an hour ultrasound of the kidneys, nephrology is following. 9. Hypertension and hypertensive cardiovascular disease. Discontinue Diovan 320/12.5 mg once every day, continue Lopressor 2.5 minute gram IV push every 6 hours. 10. Hyperlipidemia. hold off Lipitor due to nothing by mouth status. 11. Diabetes mellitus type 2. Start the patient on sliding scale insulin along with Lantus 22 units at bedtime, discontinue Tradjenta 11. History of prostate cancer status post rotation. Stable at this time. 12. 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 Continue current pain management. 13. DVT prophylaxis. Bilateral knee-high ADAIR hose currently on heparin drip. 14. GI prophylaxis. Protonix 40 mg orally once every day. 15. Patient is full code. 16. Overall prognosis is very guarded. DISCHARGE PLAN: Home Objective - Vital Signs Vital signs: Vital Signs Temp 96.9 F L 08/09/20 07:55 Pulse 73 08/09/20 07:55 Resp 16 08/09/20 07:55 BP 110/62 08/09/20 07:55 Pulse Ox 97 08/09/20 07:55 Intake & Output 08/08/20 08/09/20 08/09/20 18:59 06:59 18:59 Intake Total 100 67.667 72.163 Output Total 425 700 Balance -325 -632.333 72.163 Weight 132.5 kg Intake: Intake, IV Titration 67.667 72.163 Amount Heparin Sod,Pork in 0.45% 67.667 72.163 NaCl 25,000 unit In 0.45 % NaCl 1 250ml.bag @ 8. 7719 UNITS/KG/HR 10 mls/ hr IV .Q24H [facility] Rx#: [id number] Oral 100 Output: Drainage 35 25 Left Knee 35 25 Urine 390 675 Uretheral (Shelley) 390 150 Other: Voiding Method Indwelling Catheter Indwelling Catheter - Labs CBC & Chem 7: 08/09/20 05:22 08/09/20 10:36 Labs: Abnormal Lab Results - Last 24 Hours (Table) 08/08/20 08/08/20 08/08/20 Range/Units 08:21 08:21 08:21 RBC 2.85 L (4.30-5.90) m/uL Hgb 9.2 L (13.0-17.5) gm/dL Hct 27.5 L (39.0-53.0) % Plt Count 103 L (150-450) k/uL Lymphocytes # 0.5 L (1.0-4.8) k/uL APTT (22.0-30.0) sec Sodium 132 L (137-145) mmol/L Carbon Dioxide 17 L (22-30) mmol/L BUN 57 H (9-20) mg/dL Creatinine 3.21 H (0.66-1.25) mg/dL Glucose 127 H (74-99) mg/dL POC Glucose (mg/dL) (75-99) mg/dL Calcium 7.7 L (8.4-10.2) mg/dL Phosphorus (2.5-4.5) mg/dL Magnesium 2.6 H (1.6-2.3) mg/dL AST 178 H (17-59) U/L Troponin I 3.940 H* (0.000-0.034) ng/mL Total Protein 5.2 L (6.3-8.2) g/dL Albumin 2.7 L (3.5-5.0) g/dL 08/08/20 08/08/20 08/08/20 Range/Units 11:44 16:39 20:14 RBC (4.30-5.90) m/uL Hgb (13.0-17.5) gm/dL Hct (39.0-53.0) % Plt Count (150-450) k/uL Lymphocytes # (1.0-4.8) k/uL APTT (22.0-30.0) sec Sodium (137-145) mmol/L Carbon Dioxide (22-30) mmol/L BUN (9-20) mg/dL Creatinine (0.66-1.25) mg/dL Glucose (74-99) mg/dL POC Glucose (mg/dL) 145 H 141 H 144 H (75-99) mg/dL Calcium (8.4-10.2) mg/dL Phosphorus (2.5-4.5) mg/dL Magnesium (1.6-2.3) mg/dL AST (17-59) U/L Troponin I (0.000-0.034) ng/mL Total Protein (6.3-8.2) g/dL Albumin (3.5-5.0) g/dL 08/08/20 08/09/20 08/09/20 Range/Units 21:04 05:22 05:22 RBC 2.57 L (4.30-5.90) m/uL Hgb 8.5 L (13.0-17.5) gm/dL Hct 24.7 L (39.0-53.0) % Plt Count 110 L (150-450) k/uL Lymphocytes # 0.3 L (1.0-4.8) k/uL APTT 78.9 H (22.0-30.0) sec Sodium (137-145) mmol/L Carbon Dioxide (22-30) mmol/L BUN (9-20) mg/dL Creatinine (0.66-1.25) mg/dL Glucose (74-99) mg/dL POC Glucose (mg/dL) (75-99) mg/dL Calcium (8.4-10.2) mg/dL Phosphorus 4.7 H (2.5-4.5) mg/dL Magnesium (1.6-2.3) mg/dL AST (17-59) U/L Troponin I (0.000-0.034) ng/mL Total Protein (6.3-8.2) g/dL Albumin (3.5-5.0) g/dL 08/09/20 Range/Units 05:46 RBC (4.30-5.90) m/uL Hgb (13.0-17.5) gm/dL Hct (39.0-53.0) % Plt Count (150-450) k/uL Lymphocytes # (1.0-4.8) k/uL APTT (22.0-30.0) sec Sodium (137-145) mmol/L Carbon Dioxide (22-30) mmol/L BUN (9-20) mg/dL Creatinine (0.66-1.25) mg/dL Glucose (74-99) mg/dL POC Glucose (mg/dL) 152 H (75-99) mg/dL Calcium (8.4-10.2) mg/dL Phosphorus (2.5-4.5) mg/dL Magnesium (1.6-2.3) mg/dL AST (17-59) U/L Troponin I (0.000-0.034) ng/mL Total Protein (6.3-8.2) g/dL Albumin (3.5-5.0) g/dL Microbiology - Last 24 Hours (Table) 08/07/20 08:42 Blood Culture Gram Stain - Preliminary Blood Blood Culture - Preliminary Presumptive Staph aureus 08/06/20 18:00 Anaerobic Culture - Preliminary Knee - Left 08/06/20 18:00 Anaerobic Culture - Preliminary Knee - Left 08/07/20 17:45 Blood Culture - Preliminary Blood No Growth after 24 hours 08/06/20 18:00 Gram Stain - Final Knee - Left Wound Culture - Final Staphylococcus aureus 08/06/20 18:00 Gram Stain - Final Knee - Left Wound Culture - Final Staphylococcus aureus 08/05/20 16:47 Gram Stain - Final Knee - Left Body Fluid Culture - Final Staphylococcus aureus 08/07/20 08:42 Blood Culture - Final Blood
[2020-08-09] MEDS: HEPARIN SOD,PORK IN 0.45% NACL 25,000 UNIT in 0.45% NACL 1 250ML.BAG IV SCH (16:13)
[2020-08-09 17:04] LABS: Glucose,Whole Blood 154 mg/dL (75-99)
[2020-08-09] MEDS: DIAZEPAM 5 MG/ML 2 ML INJ IVP PRN (18:38)
--- NOTE | 2020-08-09 18:59 | PN ---
PROGRESS NOTE Patient is seen for followup for acute kidney injury, mostly associated with hypotension in the setting of use of angiotensin receptor blockers. Renal function is currently improving. Serum creatinine is down from about 3.2 to 2.1 today. Patient is maintained on IV fluids. He has been confused and is scheduled for a CT of the head. Patient has MSSA bacteremia from septic left knee arthritis. Wound culture from the left knee is also growing Staphylococcus aureus. Patient had been on vancomycin. Currently that is discontinued. I do not see a vancomycin level. Patient has had good urine output; 24-hour output noted to be 1.1 L. He has an indwelling Shelley catheter. Patient did have urine retention as well. On examination today, patient is comfortable, awake, not in any acute distress. Blood pressure 118/64, heart rate 72 per minute. He is afebrile. EXAMINATION OF THE HEART: S1 and S2. EXAMINATION OF LUNGS: Bilateral breath sounds are heard. ABDOMEN: Soft, non-tender. Examination of lower extremities shows no significant edema. CLERICAL CLERK exam is grossly intact. Labs show sodium 135, potassium 3.9, chloride 106. CO2 is 16, BUN 58, creatinine 2.1, calcium 7.7, hemoglobin 8.5 g/dL. ASSESSMENT: 1. Acute kidney injury associated with hypotension in the setting of use of angiotensin receptor blockers and secondary to urine retention, currently with indwelling Shelley catheter, maintained on IV fluids with improving renal function and improved blood pressures, currently off of valsartan. 2. Left knee septic arthritis with wound cultures growing MSSA. 3. MSSA bacteremia from left knee septic arthritis. 4. Recent inferior ST-elevation myocardial infarction with cardiac catheterization on 07/28/2020 and 07/30/2020 with right coronary stent placement. 5. Spondylosis of cervical spine. 6. History of prostate cancer, status post radiation. 7. Lactic acidosis secondary to sepsis, currently improved. PLAN: Continue with IV fluids. Continue Shelley catheter. Repeat labs in a.m. Avoid nephrotoxic agents. Check iron profile for workup of anemia. MMODL / IJN: [id number] /
[2020-08-09] MEDS: INSULIN DETEMIR (LEVEMIR) 100 UNIT/ML SYR SQ SCH (19:51)
[2020-08-09 20:14] LABS: Glucose,Whole Blood 135 mg/dL (75-99)
--- NOTE | 2020-08-09 23:42 | P.PN ---
Subjective Progress Note Date: 08/09/20 Patient was seen for a follow-up. Patient's daughter was also present today. Patient is doing slightly better. Abdominal distention has improved. Patient continues to be confused, encephalopathic. Denies headache however. Objective - Vital Signs Vital signs: Vital Signs Temp 97.7 F 08/09/20 17:26 Pulse 76 08/09/20 15:34 Resp 16 08/09/20 15:34 BP 136/74 08/09/20 15:34 Pulse Ox 100 08/09/20 15:34 Intake & Output 08/09/20 08/09/20 08/10/20 06:59 18:59 06:59 Intake Total 67.667 1257.764 Output Total 700 500 Balance -632.333 757.764 Weight 132.5 kg 132.5 kg Intake: IV 1090 Invasive Line 3 10 Invasive Line 4 30 Sodium Chloride 0.9% 1, 1000 000 ml @ 125 mls/hr IV . Q8H [facility] Rx#:[id number] ceFAZolin 1,000 mg In 50 Sodium Chloride 0.9% 50 ml @ 100 mls/hr IVPB Q12HR [facility] Rx#:[id number] Intake, IV Titration 67.667 167.764 Amount Heparin Sod,Pork in 0.45% 67.667 167.764 NaCl 25,000 unit In 0.45 % NaCl 1 250ml.bag @ 8. 7719 UNITS/KG/HR 10 mls/ hr IV .Q24H [facility] Rx#: [id number] Output: Drainage 25 15 Left Knee 25 15 Urine 675 485 Uretheral (Shelley) 150 485 Other: Voiding Method Indwelling Catheter Indwelling Catheter - Exam Patient is encephalopathic. He is slightly groggy. Patient's neck is still very stiff. Patient cannot turn his head to the left. He has some torticollis, it appears. 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 Wiggles his feet. Patient still has drains in the left knee. - Labs CBC & Chem 7: 08/09/20 05:22 08/09/20 10:36 Labs: Abnormal Lab Results - Last 24 Hours (Table) 08/08/20 08/08/20 08/09/20 Range/Units 20:14 21:04 05:22 RBC 2.57 L (4.30-5.90) m/uL Hgb 8.5 L (13.0-17.5) gm/dL Hct 24.7 L (39.0-53.0) % Plt Count 110 L (150-450) k/uL Lymphocytes # 0.3 L (1.0-4.8) k/uL APTT 78.9 H (22.0-30.0) sec Sodium (137-145) mmol/L Carbon Dioxide (22-30) mmol/L BUN (9-20) mg/dL Creatinine (0.66-1.25) mg/dL Glucose (74-99) mg/dL POC Glucose (mg/dL) 144 H (75-99) mg/dL Calcium (8.4-10.2) mg/dL Phosphorus (2.5-4.5) mg/dL 08/09/20 08/09/20 08/09/20 Range/Units 05:22 05:46 10:36 RBC (4.30-5.90) m/uL Hgb (13.0-17.5) gm/dL Hct (39.0-53.0) % Plt Count (150-450) k/uL Lymphocytes # (1.0-4.8) k/uL APTT (22.0-30.0) sec Sodium 135 L (137-145) mmol/L Carbon Dioxide 16 L (22-30) mmol/L BUN 58 H (9-20) mg/dL Creatinine 2.11 H (0.66-1.25) mg/dL Glucose 150 H (74-99) mg/dL POC Glucose (mg/dL) 152 H (75-99) mg/dL Calcium 7.7 L (8.4-10.2) mg/dL Phosphorus 4.7 H (2.5-4.5) mg/dL 08/09/20 08/09/20 08/09/20 Range/Units 12:04 15:59 17:01 RBC (4.30-5.90) m/uL Hgb (13.0-17.5) gm/dL Hct (39.0-53.0) % Plt Count (150-450) k/uL Lymphocytes # (1.0-4.8) k/uL APTT 34.9 H (22.0-30.0) sec Sodium (137-145) mmol/L Carbon Dioxide (22-30) mmol/L BUN (9-20) mg/dL Creatinine (0.66-1.25) mg/dL Glucose (74-99) mg/dL POC Glucose (mg/dL) 154 H 154 H (75-99) mg/dL Calcium (8.4-10.2) mg/dL Phosphorus (2.5-4.5) mg/dL Microbiology - Last 24 Hours (Table) 08/08/20 08:21 Blood Culture Gram Stain - Preliminary Blood 08/08/20 08:21 Blood Culture - Final Blood 08/07/20 08:42 Blood Culture Gram Stain - Preliminary Blood Blood Culture - Preliminary Presumptive Staph aureus 08/06/20 18:00 Anaerobic Culture - Preliminary Knee - Left 08/06/20 18:00 Anaerobic Culture - Preliminary Knee - Left 08/07/20 17:45 Blood Culture - Preliminary Blood No Growth after 24 hours 08/06/20 18:00 Gram Stain - Final Knee - Left Wound Culture - Final Staphylococcus aureus 08/06/20 18:00 Gram Stain - Final Knee - Left Wound Culture - Final Staphylococcus aureus 08/05/20 16:47 Gram Stain - Final Knee - Left Body Fluid Culture - Final Staphylococcus aureus Assessment and Plan Assessment: * Altered mental status with fluctuating mental status, likely delirium, possible toxic metabolic encephalopathy. * Neck stiffness unclear cause. MRI of the cervical spine showed no definitive epidural collection. Meningitis less likely, as patient has no headache. * Septicemia with staph aureus * Septic arthritis left knee. * Elevated cardiac enzymes, with recent inferior STEMI * Ischemic cardiomyopathy * Partial gastric outlet obstruction * Acute renal failure, improving. * Elevated cardiac enzymes * Diabetes Plan: * Patient has septicemia with staph aureus. Patient complaining of severe neck and low back pain. Patient's muscle strength of bilateral upper and lower extremities appears normal. MRI of the cervical spine with IV contrast showed no definitive epidural collection. Patient has degenerative disc disease, which may be contributing to neck spasms. Discussed with ID, no evidence of meningitis. Patient cannot take any muscle relaxer. He tried Valium 2 mg every 8 hours when necessary for 24 hours. Suggested to the nurse to back off on the Valium, if he becomes too groggy. Continue if it helps. * Patient is nothing by mouth, therefore on aspirin 300 mg rectally. (Previously on aspirin 81 mg and Plavix 75 mg for coronary artery disease). * Other medical management as per IM, and other specialties. * CT head showed no acute process.
[2020-08-10] MEDS: METOPROLOL TARTRATE 5 MG/5 ML VIAL IVP SCH ×5 (00:48→23:20)
[2020-08-10] MEDS: NAFCILLIN 2 GM in DEXTROSE 5% IN WATER 100 ML IVPB SCH ×14 (00:48→23:19)
[2020-08-10] MEDS: IPRATROPIUM-ALBUTEROL 3 ML NEB INHALATION SCH ×5 (03:04→20:17)
[2020-08-10] MEDS: DIAZEPAM 5 MG/ML 2 ML INJ IVP PRN (04:41)
[2020-08-10] MEDS: SODIUM CHLORIDE 0.9% 1,000 ML IV SCH ×3 (04:42→17:02)
[2020-08-10 06:02] LABS: Basophils % (A) 0 %; Eosinophils % (A) 0 %; HCT 25.8 % (39.0-53.0); HGB 8.8 gm/dL (13.0-17.5); Lymphocytes # (A) 0.2 k/uL (1.0-4.8); Lymphocytes % (A) 5 %; MCH 32.8 pg (25.0-35.0); MCHC 34.1 g/dL (31.0-37.0); MCV 96.2 fL (80.0-100.0); Mean Platelet Volume 8.5; Monocytes # (A) 0.2 k/uL (0-1.0); Monocytes % (A) 4 %; Neutrophils # (A) 4.7 k/uL (1.3-7.7); Neutrophils % (A) 90 %; Platelet Count 144 k/uL (150-450); RBC 2.68 m/uL (4.30-5.90); RDW 14.1 % (11.5-15.5); WBC 5.2 k/uL (3.8-10.6)
[2020-08-10 06:18] LABS: Glucose,Whole Blood 163 mg/dL (75-99)
[2020-08-10] MEDS: INSULIN ASPART (NovoLOG) 100 UNIT/ML VIAL SQ SCH ×4 (06:20→21:19)
--- NOTE | 2020-08-10 06:29 | PN ---
PROGRESS NOTE DATE OF SERVICE: 08/09/2020 REASON FOR FOLLOWUP: MSSA bacteremia with left knee septic arthritis. INTERVAL HISTORY: The patient is currently afebrile. Patient noted to be slightly lethargic today though denies having any chest pain. No shortness of breath or cough. No abdominal pain, no diarrhea. PHYSICAL EXAMINATION: Blood pressure is 129/70 with a pulse of 82, temperature 98.5, he is 99% on room air. General description is an elderly male lying in bed in no distress. RESPIRATORY SYSTEM: Unlabored breathing. Clear to auscultation anteriorly. HEART: S1, S2. Regular rate and rhythm. ABDOMEN: Soft, no tenderness. EXTREMITIES: No edema of the feet. LABS: Blood culture remains to be positive. DIAGNOSTIC IMPRESSION AND PLAN: Patient with MSSA bacteremia, persistent. This patient did have left knee septic arthritis, excision of arthroplasty and antibiotic spacer placement. In view of the persistent bacteremia antibiotic adjusted to nafcillin. Daily blood cultures to document clearance of bacteremia. Will need an echocardiogram to make sure no evidence of any and endovascular seeding. We will monitor clinical course closely. Continue supportive care. MMODL / IJN: [id number] /
[2020-08-10 06:50] LABS: Albumin 2.4 g/dL (3.5-5.0); Calcium 7.8 mg/dL (8.4-10.2); Potassium 3.6 mmol/L (3.5-5.1); Total Bilirubin 1.2 mg/dL (0.2-1.3); Total Protein 4.9 g/dL (6.3-8.2)
--- NOTE | 2020-08-10 08:13 | P.PN ---
Subjective Progress Note Date: 08/10/20 HISTORY OF PRESENT ILLNESS: This is a 75-year-old male one of my patient with previous medical history significant for coronary artery disease status post percutaneous coronary int ervention and stent placement last one was in 12/13/2019 in the mid RCA at that time he was found to have a totally occluded obtuse marginal one of the LCx, with collaterals from the PDA, hypertension and hypertensive cardio vascular disease, hyperlipidemia, diabetes mellitus type 2, diabetic polyneuropathy, 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 as well as radio frequency ablation, prostate cancer status post radiation therapy, patient took himself off the Plavix due to significant bruising and bleeding 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 and he was taken a baby aspirin alone, patient presented to the emergency department at [facility] on 07/28/2020 with what appears to be an inferior wall ST elevation myocardial infarction patient was taken to the director of laboratory operations and an attempted angioplasty of a computed occluded RCA had failed and the patient was transferred to [facility] for complex angioplasty of the occluded RCA, apparently patient did have 2 stents placement in the RCA and he was discharged from [facility] and patient has been getting more at all with poor appetite and his having some issues with his left knee not able to walk on the knee associated with knee buckling and locking patient had lost his appetite, he ended up coming to the emergency department at [facility] today after his daughter contacted by staff and they directed her to go to the emergency department for evaluation of possible septic knee, patient was seen and evaluated in the ER he had temperature and his white count were normal, her d-dimer was elevated his troponin was slightly elevated as well, patient was started on IV antibiotic in the form of vancomycin as well as Zosyn, blood cultures will be obtained, aspiration of the left knee showed cloudy fluid the result of which still pending at the time of dictation orthopedic surgery consultation was obtained from Dr. Choi, patient will be admitted to hospital for further evaluation, his platelet count were down to 62,000 and his lactic acid was elevated suggestive of sepsis. 08/06: Patient is seen today in follow-up. COVID-[address] angios the chest showed no large central pulmonary emboli. Motion artifact of the bilateral lungs without focal airspace opacities. Fatty liver. Venous ultrasound was negative for DVT of the left lower extremity. Patient's home medication list needs to be updated. Will add and Lantus 18 units at bedtime, Plavix 75 mg daily, Januvia. Patient's nurse was updated that the patient's medication list needs to be confirmed. He has been seen by Dr. Choi and plan for I&D of the left knee today. Patient is currently on vancomycin IV and Zosyn. Patient has been afebrile, heart rate 104, respiratory rate 26, blood pressure 125/65, pulse ox 96% on room air. Repeat lactic acid is 8.3. Repeat troponin 3.790. WBC 7.7, hemoglobin 10.6. Sodium 128, potassium 3.5, chloride 98, CO2 18, BUN 25 and creatinine 1.62. Blood sugar 317. Calcium 7.6. Magnesium 1.8. Total bilirubin 3.1, AST 85, ALT 55, alkaline phosphatase 37. Fluid studies reveal RBC 3600, nucleated cells 62,000, polynuclear WBCs 85, and mononuclear WBCs 15, glucose 104, total protein 3330. Crystals pending. Consult also in place with cardiology and Dr. Strickland. 08/07: Has been afebrile, heart rate 103, blood pressure 116/61, pulse ox 96% on 2 L nasal cannula. Repeat troponins were 4.390 and 5.6. Blood sugars are running between 178 and 222. Blood culture is presumptive staph aureus on 2 specimens and fluid culture from the knee is also presumptive staph aureus. Repeat blood culture will be ordered today. Fluid analysis showed no crystals. Patient has been seen by cardiology and cleared for surgery. Patient subsequently underwent incision and drainage of the left total knee. The patient has also been followed by Dr. Chacon 8 and covered with antibiotics on Kefzol 2 g IV piggyback every 8 hours. Repeat blood work reveals WBC of 8.4, hemoglobin 9.8, platelet count 75. Sodium 131, potassium 3.9, chloride 99, CO2 19, BUN 43 and creatinine 3.02. Blood sugars are running between 178 and 222. Total bilirubin 1.7, AST 152, ALT 59. Troponin is 7.420. Radiology continues to follow. Diovan will be discontinued and consult placed with nephrology. 08/08: Patient is feeling more sick today with increased abdominal distention and increased hiccups, he is having very poor appetite is not able to tolerate his diet, he is requiring oxygen, chest x-ray and abdominal x-ray showed a gastric outlet obstruction, NG tube was placed and surgical consultation was obtained, continue IV fluid, patient will be seen in consultation by ICU for possible transfer to the intensive care unit due to his multiple medical issues. 08/09: Patient is laying down in bed he is feeling a bit better today he continues to have his NG tube in place, his stomach is less distended, less and she output, patient was started on heparin drip, he would be started on aspirin 300 mg per rectum, since is nothing by mouth we will start the patient on Lopressor 2.5 mg IV push every 6 hours around the clock hold for systolic blood pressure less than 100 or heart rate less than 55, patient has been followed by infectious disease, cardiology, pulmonary, as well as general surgery, we will maintain the patient on current treatment plan, we'll continue to follow very closely. 08/10: Patient is laying down but he continues to have significant pain in the cervical spine as well as lumbar spine is not able to move around much, he continues to have a lot of muscle spasm, no fever or chills, he was switched to nafcillin every 4 hours due to the fact that he has Staphylococcus aureus, his Drano out of the left knee is not having much drainage hopefully would be pulled today, patient's pain is not controlled very well, his NG tube was removed, his nothing per mouth, continue with heparin drip, continue with aspirin per rectum, he has no chest pain or shortness breath at this time he has no abdominal pain, he has no nausea or vomiting, we will start the patient on fentanyl patch 12 MCG once every 72 hours, monitor the patient very closely, continue with physical therapy evaluation. REVIEW OF SYSTEMS: Constitutional: Denies fever, denies chills, no night sweats, fatigue , lethargy and sleeping and weight loss. HEENT: No headache. No blurred vision or double vision, no loss of vision. No loss of Hearing, no ringing in the ears, no dizziness. No nasal drainage or congestion. No epistaxis. No sore throat. Respiratory: No shortness of breath, no cough, no sputum production. No wheezing. Reports dyspnea with activity. Cardiovascular: No chest pain, no lower extremity edema. No palpitations. No paroxysmal nocturnal dyspnea. No orthopnea. No lightheadedness or dizziness. No syncopal episodes. Gastrointestinal: Reports no abdominal pain. No nausea, vomiting. No diarrhea. No constipation. No bloody or tarry stools reports loss of appetite. Genitourinary: No dysuria, increased frequency, urgency. No urinary retention. Musculoskeletal: Positive for myalgias. positive for muscle weakness, Positive for gait dysfunction, no frequent falls, positive for left knee pain, locking, positive for low back pain . Integumentary: No wounds, no lesions. No rash or pruritus. Positive for bru ising. No change in hair or nails. Neurologic: No aphasia. No facial droop. No change in mentation. No head injury. No headache. No paralysis. No paresthesia. Psychiatric: No depression. No anxiety. No mood swings. Endocrine: No abnormal blood sugars. No weight change. PHYSICAL EXAMINATION: General: This is 75-year-old male who appears to be moderately ill does not appear to be in acute distress. HEENT: Head is atraumatic, normocephalic, pupils were equal round reactive to light and recommendation, extraocular muscle movement were intact, sclera nonict bea, conjunctivae were pale, mucous membranes of the mouth are somewhat dry, NG tube in place. Neck: Supple, no JVP, normal carotid upstroke bilaterally, no lymphadenopathy. Chest: Decreased breath sounds at the bases, few rhonchi, no extremity wheezes, no chest wall tenderness, no intercostal retractions. Heart: First heart sound is normal, second heart sound is normal there is systolic ejection murmur 2/6 left sternal border. Abdomen: Soft, , nondi mild tenderness to the epigastric area distended, positive bowel sounds, no hepatosplenomegaly Extremities: There is no edema no calf tenderness DP + 1 bilaterally, left knee mildly tender to palpation with slightly swollen. Neurologic examination: Patient is awake alert and oriented X3, cranial nerves II-12 appear grossly intact, muscle power were 5 out of 5 in upper extremities and 5 out of 5 in bilateral lower extremities, deep tendon reflexes normal bilaterally. ASSESSMENT AND PLAN: 1. Septic arthritis of the left knee. Initial blood culture and fluid culture positive for staph aureus. Repeat blood culture ordered. Continue IV antibiotic in the form of nafcillin 2 g IV piggyback every 4 hours, hopefully the drain will be pulled out of the left knee today, continue current pain management. 2. Lactic acidosis due to sepsis. Resolved. Continue IV fluid resuscitation the form of normal saline at 125 mL an hour. 3. Thrombocytopenia area and likely related to sepsis . Resolved. 4. Recent left heart catheterization with PCI of the RCA on 07/30/2020 Continue patient on aspirin 300 mg per rectum, Lopressor 2.5 mg IV push every 6 hours, and heparin drip. 5. Elevated troponin possibly due to prior intervention possibly non-ST elevation [place] . Cardiology is following, continue heparin drip, keep PTT therapeutic, start aspirin 300 mg per rectum once every day, start Lopressor 2.5 mg IV push every 6 hours around the clock. 6. Recent inferior wall ST elevation MN. Continue treatment as in paragraph #4. 7. Acute kidney injury secondary to acute tubular necrosis and hypotension with possible sepsis induced and contrast-induced nephropathy. Monitor the patient very closely continue IV fluid monitor CBC CMP magnesium or phosphorus per 8. acute kidney injury secondary to acute n tubular necrosis and possible Contrast-induced nephropathy. Continue IV fluid resuscitation the form of normal saline at 1 25 mL an hour ultrasound of the kidneys, nephrology is following. 9. Hypertension and hypertensive cardiovascular disease. continue Lopressor 2.5 minute gram IV push every 6 hours. 10. Hyperlipidemia. hold off Lipitor due to nothing by mouth status. 11. Diabetes mellitus type 2. Start the patient on sliding scale insulin along with Lantus 22 units at bedtime, discontinue Tradjenta 11. History of prostate cancer status post rotation. Stable at this time. 12. 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 Spine surgery is following, patient may need to have an MRI of the cervical spine and lumbar spine to rule out infective discitis. 13. DVT prophylaxis. Bilateral knee-high ADAIR hose currently on heparin drip. 14. GI prophylaxis. Protonix 40 mg orally once every day. 15. Patient is full code. 16. Overall prognosis is very guarded. 17. Medical debility. Physical therapy evaluation DISCHARGE PLAN: Patient may require subacute versus inpatient rehab . Objective - Vital Signs Vital signs: Vital Signs Temp 98.7 F 08/10/20 03:30 Pulse 80 08/10/20 03:30 Resp 16 08/10/20 03:30 BP 119/54 08/10/20 03:30 Pulse Ox 96 08/10/20 03:30 Intake & Output 08/09/20 08/10/20 08/10/20 18:59 06:59 18:59 Intake Total 1257.764 94.142 Output Total 700 710 225 Balance 557.764 -615.858 -225 Weight 132.5 kg 124.05 kg Intake: IV 1090 Invasive Line 3 10 Invasive Line 4 30 Sodium Chloride 0.9% 1, 1000 000 ml @ 125 mls/hr IV . Q8H LA[facility]A Rx#:[id number] ceFAZolin 1,000 mg In 50 Sodium Chloride 0.9% 50 ml @ 100 mls/hr IVPB Q12HR LAURA Rx#:[id number] Intake, IV Titration 167.764 94.142 Amount Heparin Sod,Pork in 0.45% 167.764 94.142 NaCl 25,000 unit In 0.45 % NaCl 1 250ml.bag @ 8. 7719 UNITS/KG/HR 10 mls/ hr IV .Q24H LAURA Rx#: [id number] Output: Drainage 15 10 Left Knee 15 10 Urine 685 700 225 Uretheral (Shelley) 685 450 Other: Voiding Method Indwelling Catheter Indwelling Catheter - Labs CBC & Chem 7: 08/10/20 05:43 08/10/20 05:43 Labs: Abnormal Lab Results - Last 24 Hours (Table) 08/09/20 08/09/20 08/09/20 Range/Units 10:36 12:04 15:59 RBC (4.30-5.90) m/uL Hgb (13.0-17.5) gm/dL Hct (39.0-53.0) % Plt Count (150-450) k/uL Lymphocytes # (1.0-4.8) k/uL APTT 34.9 H (22.0-30.0) sec Sodium 135 L (137-145) mmol/L Chloride (98-107) mmol/L Carbon Dioxide 16 L (22-30) mmol/L BUN 58 H (9-20) mg/dL Creatinine 2.11 H (0.66-1.25) mg/dL Glucose 150 H (74-99) mg/dL POC Glucose (mg/dL) 154 H (75-99) mg/dL Calcium 7.7 L (8.4-10.2) mg/dL AST (17-59) U/L Total Protein (6.3-8.2) g/dL Albumin (3.5-5.0) g/dL 08/09/20 08/09/20 08/09/20 Range/Units 17:01 20:12 21:51 RBC (4.30-5.90) m/uL Hgb (13.0-17.5) gm/dL Hct (39.0-53.0) % Plt Count (150-450) k/uL Lymphocytes # (1.0-4.8) k/uL APTT 43.5 H (22.0-30.0) sec Sodium (137-145) mmol/L Chloride (98-107) mmol/L Carbon Dioxide (22-30) mmol/L BUN (9-20) mg/dL Creatinine (0.66-1.25) mg/dL Glucose (74-99) mg/dL POC Glucose (mg/dL) 154 H 135 H (75-99) mg/dL Calcium (8.4-10.2) mg/dL AST (17-59) U/L Total Protein (6.3-8.2) g/dL Albumin (3.5-5.0) g/dL 08/10/20 08/10/20 08/10/20 Range/Units 05:43 05:43 05:43 RBC 2.68 L (4.30-5.90) m/uL Hgb 8.8 L (13.0-17.5) gm/dL Hct 25.8 L (39.0-53.0) % Plt Count 144 L (150-450) k/uL Lymphocytes # 0.2 L (1.0-4.8) k/uL APTT 49.3 H (22.0-30.0) sec Sodium (137-145) mmol/L Chloride 110 H (98-107) mmol/L Carbon Dioxide 16 L (22-30) mmol/L BUN 50 H (9-20) mg/dL Creatinine 1.59 H (0.66-1.25) mg/dL Glucose 153 H (74-99) mg/dL POC Glucose (mg/dL) (75-99) mg/dL Calcium 7.8 L (8.4-10.2) mg/dL AST 102 H (17-59) U/L Total Protein 4.9 L (6.3-8.2) g/dL Albumin 2.4 L (3.5-5.0) g/dL 08/10/20 Range/Units 06:16 RBC (4.30-5.90) m/uL Hgb (13.0-17.5) gm/dL Hct (39.0-53.0) % Plt Count (150-450) k/uL Lymphocytes # (1.0-4.8) k/uL APTT (22.0-30.0) sec Sodium (137-145) mmol/L Chloride (98-107) mmol/L Carbon Dioxide (22-30) mmol/L BUN (9-20) mg/dL Creatinine (0.66-1.25) mg/dL Glucose (74-99) mg/dL POC Glucose (mg/dL) 163 H (75-99) mg/dL Calcium (8.4-10.2) mg/dL AST (17-59) U/L Total Protein (6.3-8.2) g/dL Albumin (3.5-5.0) g/dL Microbiology - Last 24 Hours (Table) 08/09/20 05:22 Blood Culture - Preliminary Blood No Growth after 24 hours 08/07/20 08:42 Blood Culture Gram Stain - Final Blood Blood Culture - Final Staphylococcus aureus 08/08/20 08:21 Blood Culture Gram Stain - Preliminary Blood Blood Culture - Preliminary Presumptive Staph aureus 08/07/20 17:45 Blood Culture - Preliminary Blood No Growth after 48 hours 08/08/20 08:21 Blood Culture - Final Blood
[2020-08-10] MEDS: HEPARIN SOD,PORK IN 0.45% NACL 25,000 UNIT in 0.45% NACL 1 250ML.BAG IV SCH (08:26)
[2020-08-10] MEDS: ASPIRIN 300 MG SUPP RECTAL SCH (08:27)
[2020-08-10] MEDS: HYDROmorphone 0.5 MG/0.5 ML SYRINGE IVP PRN ×2 (08:53→21:43)
--- NOTE | 2020-08-10 10:13 | P.PN ---
Subjective Progress Note Date: 08/10/20 Principal diagnosis: Septic arthritis left knee. Bacteremia. Neck pain. Bilateral upper extremity weakness. History of total left knee arthroplasty. Status-post cardiac catheterization. This patient is a 75-year-old gentleman with a past medical history of diabetes, hypertension hyperlipidemia, prostates cancer, and recent cardiac catheterization that presented to emergency room on 08/05/2020 with new onset left knee pain. The pain had become worse over the past week or so since he's had a recent cardiac catheterization. The knee was aspirated by the emergency room department and purulent fluid was removed with high nucleated cell count in the fluid. Patient also has positive blood cultures. After discussing the surgical and nonsurgical treatment options with him at length, it was recommended an incision and drainage of the knee with retention of the implants. The patient was taken to the operating room on 08/06/2020 for I&D of the left knee with Dr. Raji Choi. 08/09/20: Postoperative day #4. The patient is seen and examined bedside this morning. Nursing is bedside. Patient states he feels overall better compared to yesterday. Patient continues to experience pain in the left knee and the posterior neck, along with bilateral upper extremity weakness. Patient was seen and evaluated by Dr. Adkins and Dr. Damian with neurology. MRI of the cervical spine revealed no areas concerning for epidural abscess. Patient was also seen and examined by Dr. Hartman for possible gastric outlet obstruction. Patient is currently NPO with NG tube placed, the plan is for endoscopy on Wednesday08/12/20 per nursing. In regards to the left knee, patient complains of mild pain, he states this pain is slightly better than yesterday. He has not been able to sit up in bed or in the chair. Patient continues to have significant amount of drainage in the Hemovac. Per nursing, 75 mLs of drainage was obtained from the hemovac yesterday, and 45 mLs have been obtained from the hemovac drain today, since midnight. Intraoperative cultures taken of the left knee final result stap h aureus. Repeat blood cultures obtained 08/08/20 are positive. He has no new complaints at bedside this morning. His vitals signs are currently stable. Patient continues to be evaluated by multiple medical specialities including IM, cardiology, neurology, surgery, nephrology, infectious disease, orthopedic spine surgery. 08/10/20: Patient is seen and examined bedside this morning. Per nursing, the Hemovac drain from the left knee had an output of about 15-20 mLs yesterday and has not put out any output last shift. Patient continues to be slightly confused and sleepy. He states he is not having any pain in the left knee today, he continues to have pain in the back and neck. Per nursing patient pulled out his NG tube, the plan is an endoscopy on Wednesday. Antibiotic was changed to Nafcil pe r Dr. Strickland. Repeat blood cultures showing no growth at 24 hours. Patient has not been out of bed. He denies chest pain or shortness of breath at bedside this morning. Vital signs stable. Objective - Vital Signs Vital signs: Vital Signs Temp 98.7 F 08/10/20 03:30 Pulse 80 08/10/20 03:30 Resp 16 08/10/20 03:30 BP 119/54 08/10/20 03:30 Pulse Ox 96 08/10/20 03:30 Intake & Output 08/09/20 08/10/20 08/10/20 18:59 06:59 18:59 Intake Total 1257.764 94.142 154.93 Output Total 700 710 225 Balance 557.764 -615.858 -70.07 Weight 132.5 kg 124.05 kg Intake: IV 1090 Invasive Line 3 10 Invasive Line 4 30 Sodium Chloride 0.9% 1, 1000 000 ml @ 125 mls/hr IV . Q8H [facility] Rx#:[id number] ceFAZolin 1,000 mg In 50 Sodium Chloride 0.9% 50 ml @ 100 mls/hr IVPB Q12HR [facility] Rx#:[id number] Intake, IV Titration 167.764 94.142 154.93 Amount Heparin Sod,Pork in 0.45% 167.764 94.142 154.93 NaCl 25,000 unit In 0.45 % NaCl 1 250ml.bag @ 8. 7719 UNITS/KG/HR 10 mls/ hr IV .Q24H [facility]A Rx#: [id number] Output: Drainage 15 10 Left Knee 15 10 Urine 685 700 225 Uretheral (Shelley) 685 450 Other: Voiding Method Indwelling Catheter Indwelling Catheter - Exam On examination, the patient is lying in bed in no apparent distress. He is alert, appears mildly confused, but he is able to answer questions appropriately. On examination of the left lower extremity, there is a postoperative dressing in place with no saturation. Dressing is taken down and reveals a benign surgical incision of the anterior knee with jose david intact, no surrounding erythema. No fluctuance. Hemovac drain in place, which was pulled during this dressing change. Patient has full range of motion of the left foot and ankle without difficulty or pain. Dorsalis pedis pulse is easily palpable. Motor and sensory function is intact of the left lower extremity. The calf is soft and nontender to palpation. - Labs CBC & Chem 7: 08/10/20 05:43 08/10/20 05:43 Labs: Abnormal Lab Results - Last 24 Hours (Table) 08/09/20 08/09/20 08/09/20 Range/Units 10:36 12:04 15:59 RBC (4.30-5.90) m/uL Hgb (13.0-17.5) gm/dL Hct (39.0-53.0) % Plt Count (150-450) k/uL Lymphocytes # (1.0-4.8) k/uL APTT 34.9 H (22.0-30.0) sec Sodium 135 L (137-145) mmol/L Chloride (98-107) mmol/L Carbon Dioxide 16 L (22-30) mmol/L BUN 58 H (9-20) mg/dL Creatinine 2.11 H (0.66-1.25) mg/dL Glucose 150 H (74-99) mg/dL POC Glucose (mg/dL) 154 H (75-99) mg/dL Calcium 7.7 L (8.4-10.2) mg/dL AST (17-59) U/L Total Protein (6.3-8.2) g/dL Albumin (3.5-5.0) g/dL 08/09/20 08/09/20 08/09/20 Range/Units 17:01 20:12 21:51 RBC (4.30-5.90) m/uL Hgb (13.0-17.5) gm/dL Hct (39.0-53.0) % Plt Count (150-450) k/uL Lymphocytes # (1.0-4.8) k/uL APTT 43.5 H (22.0-30.0) sec Sodium (137-145) mmol/L Chloride (98-107) mmol/L Carbon Dioxide (22-30) mmol/L BUN (9-20) mg/dL Creatinine (0.66-1.25) mg/dL Glucose (74-99) mg/dL POC Glucose (mg/dL) 154 H 135 H (75-99) mg/dL Calcium (8.4-10.2) mg/dL AST (17-59) U/L Total Protein (6.3-8.2) g/dL Albumin (3.5-5.0) g/dL 08/10/20 08/10/20 08/10/20 Range/Units 05:43 05:43 05:43 RBC 2.68 L (4.30-5.90) m/uL Hgb 8.8 L (13.0-17.5) gm/dL Hct 25.8 L (39.0-53.0) % Plt Count 144 L (150-450) k/uL Lymphocytes # 0.2 L (1.0-4.8) k/uL APTT 49.3 H (22.0-30.0) sec Sodium (137-145) mmol/L Chloride 110 H (98-107) mmol/L Carbon Dioxide 16 L (22-30) mmol/L BUN 50 H (9-20) mg/dL Creatinine 1.59 H (0.66-1.25) mg/dL Glucose 153 H (74-99) mg/dL POC Glucose (mg/dL) (75-99) mg/dL Calcium 7.8 L (8.4-10.2) mg/dL AST 102 H (17-59) U/L Total Protein 4.9 L (6.3-8.2) g/dL Albumin 2.4 L (3.5-5.0) g/dL 08/10/20 Range/Units 06:16 RBC (4.30-5.90) m/uL Hgb (13.0-17.5) gm/dL Hct (39.0-53.0) % Plt Count (150-450) k/uL Lymphocytes # (1.0-4.8) k/uL APTT (22.0-30.0) sec Sodium (137-145) mmol/L Chloride (98-107) mmol/L Carbon Dioxide (22-30) mmol/L BUN (9-20) mg/dL Creatinine (0.66-1.25) mg/dL Glucose (74-99) mg/dL POC Glucose (mg/dL) 163 H (75-99) mg/dL Calcium (8.4-10.2) mg/dL AST (17-59) U/L Total Protein (6.3-8.2) g/dL Albumin (3.5-5.0) g/dL Microbiology - Last 24 Hours (Table) 08/09/20 05:22 Blood Culture - Preliminary Blood No Growth after 24 hours 08/07/20 08:42 Blood Culture Gram Stain - Final Blood Blood Culture - Final Staphylococcus aureus 08/08/20 08:21 Blood Culture Gram Stain - Preliminary Blood Blood Culture - Preliminary Presumptive Staph aureus 08/07/20 17:45 Blood Culture - Preliminary Blood No Growth after 48 hours 08/08/20 08:21 Blood Culture - Final Blood Assessment and Plan Assessment: Septic arthritis left knee status-post I&D 08/06/20. Bacteremia with staph aureus. Neck pain. Bilateral upper extremity weakness. History of total left knee arthroplasty in 2018. Status-post cardiac catheterization. Plan: - The hemovac drain was pulled today bedside. The surgical incision appears benign. A new dressing was applied. - Medical management per multiple medical specialities following including IM, cardiology, neurology, surgery, nephrology, infectious disease, orthopedic spine surgery. - We will follow patient closely and make recommendations as needed.
[2020-08-10 10:48] LABS: % Iron Saturation 11.59 (15.00-50.00)
--- NOTE | 2020-08-10 10:56 | P.PN ---
Subjective Progress Note Date: 08/10/20 Principal diagnosis: 75-year-old male seen in consultation because of acute kidney injury from hypotension likely related to OBI inhibitor's but subsequently after admission he was found to have additionally left knee septic arthritis and bacteremia with staph aureus and sepsis. This morning is awake and alert but has generalized weakness. He says he wants to eat but has not been given any food. Denies any chest pain shortness of breath. Does complain of neck stiffness and has difficulty moving his neck. No nausea vomiting diarrhea. No abdominal pain. The pain in his left knee is better. Vital signs are stable is afebrile Urine output is 1410 this morning and 1475 yesterday. Objective - Vital Signs Vital signs: Vital Signs Temp 98.7 F 08/10/20 03:30 Pulse 80 08/10/20 03:30 Resp 16 08/10/20 03:30 BP 119/54 08/10/20 03:30 Pulse Ox 96 08/10/20 03:30 Intake & Output 08/09/20 08/10/20 08/10/20 18:59 06:59 18:59 Intake Total 1257.764 94.142 154.93 Output Total 700 710 225 Balance 557.764 -615.858 -70.07 Weight 132.5 kg 124.05 kg Intake: IV 1090 Invasive Line 3 10 Invasive Line 4 30 Sodium Chloride 0.9% 1, 1000 000 ml @ 125 mls/hr IV . Q8H [facility] Rx#:[id number] ceFAZolin 1,000 mg In 50 Sodium Chloride 0.9% 50 ml @ 100 mls/hr IVPB Q12HR [facility] Rx#:[id number] Intake, IV Titration 167.764 94.142 154.93 Amount Heparin Sod,Pork in 0.45% 167.764 94.142 154.93 NaCl 25,000 unit In 0.45 % NaCl 1 250ml.bag @ 8. 7719 UNITS/KG/HR 10 mls/ hr IV .Q24H [facility] Rx#: [id number] Output: Drainage 15 10 Left Knee 15 10 Urine 685 700 225 Uretheral (Shelley) 685 450 Other: Voiding Method Indwelling Catheter Indwelling Catheter On examination awake alert oriented comfortable neck is stiff though. Lungs are clear to auscultation good air entry bilaterally Heart sounds unremarkable for any murmur rub gallop Abdomen soft nontender Extremity exam trace edema Neurologically awake alert but profoundly weakness and neck stiffness. Able to move all his extremities - Labs CBC & Chem 7: 08/10/20 05:43 08/10/20 05:43 Labs: Abnormal Lab Results - Last 24 Hours (Table) 08/09/20 08/09/20 08/09/20 Range/Units 05:22 10:36 12:04 RBC (4.30-5.90) m/uL Hgb (13.0-17.5) gm/dL Hct (39.0-53.0) % Plt Count (150-450) k/uL Lymphocytes # (1.0-4.8) k/uL APTT (22.0-30.0) sec Sodium 135 L (137-145) mmol/L Chloride (98-107) mmol/L Carbon Dioxide 16 L (22-30) mmol/L BUN 58 H (9-20) mg/dL Creatinine 2.11 H (0.66-1.25) mg/dL Glucose 150 H (74-99) mg/dL POC Glucose (mg/dL) 154 H (75-99) mg/dL Calcium 7.7 L (8.4-10.2) mg/dL Iron 27 L (65-175) ug/dL % Saturation 11.59 L (15.00-50.00) AST (17-59) U/L Total Protein (6.3-8.2) g/dL Albumin (3.5-5.0) g/dL 08/09/20 08/09/20 08/09/20 Range/Units 15:59 17:01 20:12 RBC (4.30-5.90) m/uL Hgb (13.0-17.5) gm/dL Hct (39.0-53.0) % Plt Count (150-450) k/uL Lymphocytes # (1.0-4.8) k/uL APTT 34.9 H (22.0-30.0) sec Sodium (137-145) mmol/L Chloride (98-107) mmol/L Carbon Dioxide (22-30) mmol/L BUN (9-20) mg/dL Creatinine (0.66-1.25) mg/dL Glucose (74-99) mg/dL POC Glucose (mg/dL) 154 H 135 H (75-99) mg/dL Calcium (8.4-10.2) mg/dL Iron (65-175) ug/dL % Saturation (15.00-50.00) AST (17-59) U/L Total Protein (6.3-8.2) g/dL Albumin (3.5-5.0) g/dL 08/09/20 08/10/20 08/10/20 Range/Units 21:51 05:43 05:43 RBC 2.68 L (4.30-5.90) m/uL Hgb 8.8 L (13.0-17.5) gm/dL Hct 25.8 L (39.0-53.0) % Plt Count 144 L (150-450) k/uL Lymphocytes # 0.2 L (1.0-4.8) k/uL APTT 43.5 H (22.0-30.0) sec Sodium (137-145) mmol/L Chloride 110 H (98-107) mmol/L Carbon Dioxide 16 L (22-30) mmol/L BUN 50 H (9-20) mg/dL Creatinine 1.59 H (0.66-1.25) mg/dL Glucose 153 H (74-99) mg/dL POC Glucose (mg/dL) (75-99) mg/dL Calcium 7.8 L (8.4-10.2) mg/dL Iron (65-175) ug/dL % Saturation (15.00-50.00) AST 102 H (17-59) U/L Total Protein 4.9 L (6.3-8.2) g/dL Albumin 2.4 L (3.5-5.0) g/dL 08/10/20 08/10/20 Range/Units 05:43 06:16 RBC (4.30-5.90) m/uL Hgb (13.0-17.5) gm/dL Hct (39.0-53.0) % Plt Count (150-450) k/uL Lymphocytes # (1.0-4.8) k/uL APTT 49.3 H (22.0-30.0) sec Sodium (137-145) mmol/L Chloride (98-107) mmol/L Carbon Dioxide (22-30) mmol/L BUN (9-20) mg/dL Creatinine (0.66-1.25) mg/dL Glucose (74-99) mg/dL POC Glucose (mg/dL) 163 H (75-99) mg/dL Calcium (8.4-10.2) mg/dL Iron (65-175) ug/dL % Saturation (15.00-50.00) AST (17-59) U/L Total Protein (6.3-8.2) g/dL Albumin (3.5-5.0) g/dL Microbiology - Last 24 Hours (Table) 08/09/20 05:22 Blood Culture - Preliminary Blood No Growth after 24 hours 08/07/20 08:42 Blood Culture Gram Stain - Final Blood Blood Culture - Final Staphylococcus aureus 08/08/20 08:21 Blood Culture Gram Stain - Preliminary Blood Blood Culture - Preliminary Presumptive Staph aureus 08/07/20 17:45 Blood Culture - Preliminary Blood No Growth after 48 hours 08/08/20 08:21 Blood Culture - Final Blood Assessment and Plan Assessment: Impression 1. Acute kidney injury from combination OBI inhibitor's on admission. On adm ission his creatinine was 1.45 on 08/05/2020 and was baseline of 1.14 on 07/29/2020. 2. Creatinine peaked at 3.21 on 08/08/2020 and is now down to 1.59 with good urine output. 3 left septic arthritis with bacteremia with staph aureus. 4. Mild degree of non-gap acidosis from acute kidney injury. Bicarb is 16 anion gap is 11 5. Anemia hemoglobin 8.8 6. Staph bacteremia blood cultures are positive last time on 08/08/2020 Recommendation 1. Start sodium bicarb 650 4 times a day 2. Watch urine output and labs. We will continue to follow
[2020-08-10 11:38] LABS: Glucose,Whole Blood 178 mg/dL (75-99)
--- NOTE | 2020-08-10 12:45 | P.PN ---
Progress Note - Text Progress Note Date: 08/10/20 Patient has complaints of abdominal distention. On exam vital signs are stable. Abdomen soft. There is minimal tenderness the epigastric area. The abdomen is slightly distended. Ileus. Patient will be sent for EGD on Wednesday.
[2020-08-10] MEDS ORDERED: SODIUM BICARBONATE TAB 650 MG TAB PO SCH (13:00)
[2020-08-10 16:39] LABS: Glucose,Whole Blood 171 mg/dL (75-99)
[2020-08-10] MEDS ORDERED: CLOPIDOGREL 75 MG TAB PO STA (17:29)
--- NOTE | 2020-08-10 17:35 | P.PN ---
Subjective HISTORY OF PRESENT ILLNESS: This is a 75-year-old male with a past medical history significant for hypertension, hyperlipidemia, diabetes mellitus, osteoarthritis, GERD, and coronary artery disease. Patient follows in the office with Dr. Valencia. We have been asked to see the patient in consultation for cardiac clearance. Patient is scheduled to undergo I&D of left knee this afternoon with orthopedics. Patient was recently hospitalized earlier this month secondary to inferior STEMI. 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 Vora was unsuccessful at advancing balloon or artherectomy after multiple attempts per his cath report. Echocardiogram completed at that time revealed ejection fraction of 25-30%. Patient was transfe rred to [facility] where he states he had two stents placed. He was placed on aspirin and plavix. Patient examined at the bedside this morning. He states his left knee started hurting shortly after he was discharged from [facility]. Patient denies any chest pain or pressure. He denies shortness of breath. Patient states he is able to lay flat in bed without any dyspnea. 08/07 Patient seen and examined. Per nursing patient has been having extreme neck and back pain as well knee pain and therefore received narcotics. Currently somewhat lethargic and slow to answer questions with recent Dilaudid given, however he denies any chest pain or pressure which he had previously with his WV. Troponins were mildly increasing yesterday, repeat this morning pending. Platelets also have been decreasing. Blood cultures and knee cultures positive for staph aureus. 08/08 Patient seen and examined. Patient has been having increased abdominal fullness with concern of bowel obstruction and therefore NG tube was placed, currently to suction. Patient's troponins peaked and are now on the way down. He denies any chest pain. Has continued back and knee pain. Echo taken and awaiting read. 08/09 Patient seen and examined. Patient resting more comfortably today. Still somewhat confused however denies any chest pain, pressure, shortness breath. Patient still has NG tube in place. Patient placed on a heparin drip yesterday. Cr mildly improved to 2.1 today. 08/10 Patient seen and examined. Patient appears more comfortable today and states he feels somewhat better. He did pull his NG tube out however denies any abdominal pain, no chest pain or pressure. He has been receiving rectal aspirin however has not been receiving Plavix and is on heparin drip. REVIEW OF SYSTEMS: At the time of my exam: CONSTITUTIONAL: Denies fever or chills. HEENT: Denies blurred vision, vision changes, or eye pain. Denies hemoptysis CARDIOVASCULAR: Denies chest pain. Denies orthopnea. Denies PND. Denies palpitations RESPIRATORY: Denies shortness of breath. GASTROINTESTINAL: Denies abdominal pain. Denies nausea or vomiting. HEMATOLOGIC: Denies bleeding disorders. GENITOURINARY: Denies any blood in urine. SKIN: Denies pruitis. Denies rash. PHYSICAL EXAM: VITAL SIGNS: Reviewed. GENERAL: Well-developed in no acute distress. ill appearing HEENT: Head is normocephalic. Pupils are equal, round. Sclerae anicteric. Mucous membranes of the mouth are moist. Neck supple. No JVD or thyromegaly LUNGS: Respirations even and unlabored. Lungs essentially clear to auscultation bilaterally. HEART: Regular rate and rhythm. S1 and S2 heard. ABDOMEN: Soft. Nondistended. Nontender. EXTREMITIES: No clubbing or cyanosis. Peripheral pulses intact. Left knee tender with palpation. Left knee swollen with slightly decreased range of mark on due to pain. NEUROLOGIC: Awake and appears mildly confused ASSESSMENT: Septic arthritis of left knee Recent inferior STEMI Coronary artery disease with PCI to RCA Abnormal troponins, no evidence of ACS Ischemic cardiomyopathy, EF 25-30% Hypertension Hyperlipidemia Diabetes mellitus Staph aureus bacteremia Thrombocytopenia. NSTEMI likely type 2 mechanism from sepsis Possible bowel obstruction, NG tube in place NIMCO PLAN: Echocardiogram performed 08/07 shows ejection fraction 50-55% and no mention of significant vegetation noted. Patient without anginal symptoms such as chest pain which he had with his prior WV. Suspect Type 2 NSTEMI from sepsis. Given recent stent placement, discussed with general surgery recommendations to continue aspirin and Plavix. Okay to receive aspirin and Plavix by oral route. Patient would be at higher risk given recent stent placement, non-STEMI, cardiomyopathy and sepsis for proposed EGD however no absolute contraindications. Objective - Vital Signs Vital signs: Vital Signs Temp 98.5 F 08/10/20 07:30 Pulse 80 08/10/20 07:30 Resp 16 08/10/20 07:30 BP 156/73 08/10/20 07:30 Pulse Ox 97 08/10/20 07:30 Intake & Output 0408/10/20 08/10/20 18:59 06:59 18:59 Intake Total 1257.764 94.142 154.93 Output Total 042 383 1421 Balance 557.764 -615.858 -845.07 Weight 132.5 kg 124.05 kg Intake: IV 1090 Invasive Line 3 10 Invasive Line 4 30 Sodium Chloride 0.9% 1, 1000 000 ml @ 125 mls/hr IV . Q8H [facility] Rx#:[id number] ceFAZolin 1,000 mg In 50 Sodium Chloride 0.9% 50 ml @ 100 mls/hr IVPB Q12HR [facility] Rx#:[id number] Intake, IV Titration 167.764 94.142 154.93 Amount Heparin Sod,Pork in 0.45% 167.764 94.142 154.93 NaCl 25,000 unit In 0.45 % NaCl 1 250ml.bag @ 8. 7719 UNITS/KG/HR 10 mls/ hr IV .Q24H [facility] Rx#: [id number] Output: Drainage 15 10 Left Knee 15 10 Urine 526 295 7269 Uretheral (Shelley) 685 450 775 Other: Voiding Method Indwelling Catheter Indwelling Catheter Indwelling Catheter - Labs CBC & Chem 7: 08/10/20 05:43 08/10/20 05:43 Labs: Abnormal Lab Results - Last 24 Hours (Table) 08/09/20 08/09/20 08/09/20 Range/Units 05:22 20:12 21:51 RBC (4.30-5.90) m/uL Hgb (13.0-17.5) gm/dL Hct (39.0-53.0) % Plt Count (150-450) k/uL Lymphocytes # (1.0-4.8) k/uL APTT 43.5 H (22.0-30.0) sec Chloride (98-107) mmol/L Carbon Dioxide (22-30) mmol/L BUN (9-20) mg/dL Creatinine (0.66-1.25) mg/dL Glucose (74-99) mg/dL POC Glucose (mg/dL) 135 H (75-99) mg/dL Calcium (8.4-10.2) mg/dL Iron 27 L (65-175) ug/dL % Saturation 11.59 L (15.00-50.00) AST (17-59) U/L Total Protein (6.3-8.2) g/dL Albumin (3.5-5.0) g/dL 08/10/20 08/10/20 08/10/20 Range/Units 05:43 05:43 05:43 RBC 2.68 L (4.30-5.90) m/uL Hgb 8.8 L (13.0-17.5) gm/dL Hct 25.8 L (39.0-53.0) % Plt Count 144 L (150-450) k/uL Lymphocytes # 0.2 L (1.0-4.8) k/uL APTT 49.3 H (22.0-30.0) sec Chloride 110 H (98-107) mmol/L Carbon Dioxide 16 L (22-30) mmol/L BUN 50 H (9-20) mg/dL Creatinine 1.59 H (0.66-1.25) mg/dL Glucose 153 H (74-99) mg/dL POC Glucose (mg/dL) (75-99) mg/dL Calcium 7.8 L (8.4-10.2) mg/dL Iron (65-175) ug/dL % Saturation (15.00-50.00) AST 102 H (17-59) U/L Total Protein 4.9 L (6.3-8.2) g/dL Albumin 2.4 L (3.5-5.0) g/dL 08/10/20 08/10/20 08/10/20 Range/Units 06:16 11:36 16:30 RBC (4.30-5.90) m/uL Hgb (13.0-17.5) gm/dL Hct (39.0-53.0) % Plt Count (150-450) k/uL Lymphocytes # (1.0-4.8) k/uL APTT (22.0-30.0) sec Chloride (98-107) mmol/L Carbon Dioxide (22-30) mmol/L BUN (9-20) mg/dL Creatinine (0.66-1.25) mg/dL Glucose (74-99) mg/dL POC Glucose (mg/dL) 163 H 178 H 171 H (75-99) mg/dL Calcium (8.4-10.2) mg/dL Iron (65-175) ug/dL % Saturation (15.00-50.00) AST (17-59) U/L Total Protein (6.3-8.2) g/dL Albumin (3.5-5.0) g/dL Microbiology - Last 24 Hours (Table) 08/09/20 05:22 Blood Culture - Preliminary Blood No Growth after 24 hours 08/07/20 08:42 Blood Culture Gram Stain - Final Blood Blood Culture - Final Staphylococcus aureus 08/08/20 08:21 Blood Culture Gram Stain - Preliminary Blood Blood Culture - Preliminary Presumptive Staph aureus 08/07/20 17:45 Blood Culture - Preliminary Blood No Growth after 48 hours
--- NOTE | 2020-08-10 18:50 | PN ---
PROGRESS NOTE DATE OF SERVICE: 08/10/2020 REASON FOR FOLLOWUP: MSSA bacteremia secondary to left knee septic arthritis. INTERVAL HISTORY: Patient is currently afebrile. The patient is breathing comfortably. Denies having any chest pain, shortness of breath or cough. No abdominal pain ( ) to the left knee wound. Wanted a cold glass of water. PHYSICAL EXAMINATION: Blood pressure 156/73, pulse of 80, temperature 98.5. He is 97% on room air. General description is an elderly male lying in bed in no distress. Respiratory system: Unlabored breathing, clear to auscultation anteriorly. Heart S1, S2. Regular rate and rhythm. Abdomen soft, no tenderness. LABS: Hemoglobin 8.8, white count 5.2, BUN of 15, creatinine is 1.59. His blood culture 08/09 so far negative. DIAGNOSTIC IMPRESSION AND PLAN: Patient with MSSA bacteremia with left knee septic arthritis status post excision arthroplasty, antibiotic spacer placement. Patient is currently covered with Levaquin, to continue. Blood cultures ( ) bacteremia. Place a PICC line for outpatient IV antibiotic. MMODL / IJN: [id number] /
--- NOTE | 2020-08-10 18:57 | P.PN ---
Subjective Progress Note Date: 08/10/20 Patient was seen via tele-neurology for a follow-up. Patient's daughter Paola was also present today. Apparently the lady who was present yesterday was not her daughter as per Paola statement, who had claimed to be his daughter. Patient is doing slightly better. Abdominal distention has improved. Patient continues to be confused, encephalopathic. Patient has slow mentation. Denies headache however. Still with neck pain, which he rates severe. Also admits to low back pain, severe. He could not relate it on 1-10 scale. Patient states that he has had similar pain and neck spasms in the past as well. He states that this neck spasm is not new" for him. Objective - Vital Signs Vital signs: Vital Signs Temp 97.8 F 08/10/20 16:00 Pulse 84 08/10/20 16:00 Resp 16 08/10/20 16:00 BP 149/72 08/10/20 16:00 Pulse Ox 96 08/10/20 16:00 Intake & Output 08/09/20 08/10/20 08/10/20 18:59 06:59 18:59 Intake Total 1257.764 94.142 1354.93 Output Total 680 698 9978 Balance 557.764 -615.858 354.93 Weight 132.5 kg 124.05 kg Intake: IV 1090 1200 Invasive Line 3 10 Invasive Line 4 30 Nafcillin 2 gm In 200 Dextrose 5% in Water 100 ml @ 50 mls/hr IVPB Q4HR [facility] Rx#:[id number] Sodium Chloride 0.9% 1, 1000 1000 000 ml @ 125 mls/hr IV . Q8H [facility] Rx#:[id number] ceFAZolin 1,000 mg In 50 Sodium Chloride 0.9% 50 ml @ 100 mls/hr IVPB Q12HR [facility] Rx#:[id number] Intake, IV Titration 167.764 94.142 154.93 Amount Heparin Sod,Pork in 0.45% 167.764 94.142 154.93 NaCl 25,000 unit In 0.45 % NaCl 1 250ml.bag @ 8. 7719 UNITS/KG/HR 10 mls/ hr IV .Q24H [facility] Rx#: [id number] Output: Drainage 15 10 Left Knee 15 10 Urine [phone] Uretheral (Shelley) 685 450 775 Other: Voiding Method Indwelling Catheter Indwelling Catheter Indwelling Catheter - Exam Patient is encephalopathic. He is slightly groggy, but more alert. Patient's neck is still very stiff. He has had deviated to the right side. Patient cannot bring his head past the midline to the left. Patient states the neck pain is "severe" even without any movement, which gets further worse with movement. Patient states it's February and the year is 1999. He speaks clearly. He has very slow mentation. Patient states that he is in [place] in [place]. Denies headache. He has some torticollis, it appears. 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 Wiggles his feet. - Labs CBC & Chem 7: 08/10/20 05:43 08/10/20 05:43 Labs: Abnormal Lab Results - Last 24 Hours (Table) 08/09/20 08/09/20 08/09/20 Range/Units 05:22 20:12 21:51 RBC (4.30-5.90) m/uL Hgb (13.0-17.5) gm/dL Hct (39.0-53.0) % Plt Count (150-450) k/uL Lymphocytes # (1.0-4.8) k/uL APTT 43.5 H (22.0-30.0) sec Chloride (98-107) mmol/L Carbon Dioxide (22-30) mmol/L BUN (9-20) mg/dL Creatinine (0.66-1.25) mg/dL Glucose (74-99) mg/dL POC Glucose (mg/dL) 135 H (75-99) mg/dL Calcium (8.4-10.2) mg/dL Iron 27 L (65-175) ug/dL % Saturation 11.59 L (15.00-50.00) AST (17-59) U/L Total Protein (6.3-8.2) g/dL Albumin (3.5-5.0) g/dL 08/10/20 08/10/20 08/10/20 Range/Units 05:43 05:43 05:43 RBC 2.68 L (4.30-5.90) m/uL Hgb 8.8 L (13.0-17.5) gm/dL Hct 25.8 L (39.0-53.0) % Plt Count 144 L (150-450) k/uL Lymphocytes # 0.2 L (1.0-4.8) k/uL APTT 49.3 H (22.0-30.0) sec Chloride 110 H (98-107) mmol/L Carbon Dioxide 16 L (22-30) mmol/L BUN 50 H (9-20) mg/dL Creatinine 1.59 H (0.66-1.25) mg/dL Glucose 153 H (74-99) mg/dL POC Glucose (mg/dL) (75-99) mg/dL Calcium 7.8 L (8.4-10.2) mg/dL Iron (65-175) ug/dL % Saturation (15.00-50.00) AST 102 H (17-59) U/L Total Protein 4.9 L (6.3-8.2) g/dL Albumin 2.4 L (3.5-5.0) g/dL 08/10/20 08/10/20 08/10/20 Range/Units 06:16 11:36 16:30 RBC (4.30-5.90) m/uL Hgb (13.0-17.5) gm/dL Hct (39.0-53.0) % Plt Count (150-450) k/uL Lymphocytes # (1.0-4.8) k/uL APTT (22.0-30.0) sec Chloride (98-107) mmol/L Carbon Dioxide (22-30) mmol/L BUN (9-20) mg/dL Creatinine (0.66-1.25) mg/dL Glucose (74-99) mg/dL POC Glucose (mg/dL) 163 H 178 H 171 H (75-99) mg/dL Calcium (8.4-10.2) mg/dL Iron (65-175) ug/dL % Saturation (15.00-50.00) AST (17-59) U/L Total Protein (6.3-8.2) g/dL Albumin (3.5-5.0) g/dL Microbiology - Last 24 Hours (Table) 08/06/20 18:00 Anaerobic Culture - Final Knee - Left 08/06/20 18:00 Anaerobic Culture - Final Knee - Left 08/09/20 05:22 Blood Culture - Preliminary Blood No Growth after 24 hours 08/07/20 08:42 Blood Culture Gram Stain - Final Blood Blood Culture - Final Staphylococcus aureus 08/08/20 08:21 Blood Culture Gram Stain - Preliminary Blood Blood Culture - Preliminary Presumptive Staph aureus 08/07/20 17:45 Blood Culture - Preliminary Blood No Growth after 48 hours Assessment and Plan Assessment: * Altered mental status with fluctuating mental status, likely delirium, possible toxic metabolic encephalopathy. * Neck stiffness unclear cause. MRI of the cervical spine showed no definitive epidural collection. Meningitis less likely, as patient has no headache. * Septicemia with staph aureus * Septic arthritis left knee. * Elevated cardiac enzymes, with recent inferior STEMI * Ischemic cardiomyopathy * Partial gastric outlet obstruction * Acute renal failure, improving. * Elevated cardiac enzymes * Diabetes Plan: * Patient has septicemia with staph aureus. Patient complaining of severe neck and low back pain. Patient's muscle strength of bilateral upper and lower extremities appears normal. MRI of the cervical spine with IV contrast showed no definitive epidural collection. Patient has degenerative disc disease, which may be contributing to neck spasms, though unusual to effect like this. Discussed with ID, no evidence of meningitis. With his altered mental status, and neck stiffness, lumbar puncture may be considered if no contraindications. * Valium has not helped. We will stop Valium. Patient would need Flexeril 10 mg twice a day * Will check computed tomography scan of the neck and Cervical spine without contrast to evaluate for any ?abscess producing neck spasm. * Patient's renal functions are improving. BUN 50, creatinine 1.59. * Patient is on aspirin 81 mg and Plavix 75 mg for coronary artery disease and previous cardiac stents. * Other medical management as per IM, and other specialties.
[2020-08-10] MEDS: ACETAMINOPHEN TAB 500 MG TAB PO PRN (20:01)
[2020-08-10] MEDS: CYCLOBENZAPRINE 10 MG TAB PO PRN (20:01)
[2020-08-10] MEDS ORDERED: IPRATROPIUM-ALBUTEROL 3 ML NEB INHALATION PRN (20:18)
[2020-08-10 20:19] LABS: Glucose,Whole Blood 172 mg/dL (75-99)
[2020-08-10] MEDS: INSULIN DETEMIR (LEVEMIR) 100 UNIT/ML SYR SQ SCH (21:18)
--- NOTE | 2020-08-10 21:49 | CT ---
EXAMINATION TYPE: CT neck chest without con DATE OF EXAM: 08/10/2020 COMPARISON: CT chest 08/05/2020 HISTORY: Neck spasms, pain, torticollis. CT DLP: 1136.8 mGycm Automated exposure control for dose reduction was used. Images obtained from the level of the maxillary sinuses to the diaphragm with no contrast. Exam limited by lack of any contrast. There is normal aeration of the visualized paranasal sinuses. Parotid glands are symmetric. There is fatty infiltration. Submandibular salivary glands are symmetric. Epiglottis is normal. Tonsils and ad enoids appear intact. There is multilevel mild cervical spondylotic changes. There is apparent old an terior fusion surgery at C5-6. There is C6-7 and C7-T1 degenerative spur formation. Prevertebral soft tissues are intact. The tongue appears normal. Subglottic trachea appears normal. I see no significa nt adenopathy. Superior mediastinum is intact. There is no adenopathy. Ascending aorta measures 3.8 cm. Heart size i s fairly normal. There is no pericardial effusion. There is small left pleural effusion. There is alida e mild atelectasis at the lung bases. There are no hilar masses. There is no evidence of a pulmonary mass. There is degenerative spurring in the thoracic spine. There is no compression fracture. IMPRESSION: There is some mild atelectasis at the lung bases. Small left pleural effusion. No suspicious pulmonar y mass. No significant abnormality of the neck. Left pleural effusion increased compared to recent exam. Atel ectasis at the lung bases increased compared to recent exam.
[2020-08-11] MEDS: CYCLOBENZAPRINE 10 MG TAB PO PRN (03:06)
[2020-08-11] MEDS: HYDROmorphone 0.5 MG/0.5 ML SYRINGE IVP PRN ×4 (03:06→22:21)
[2020-08-11] MEDS: SODIUM CHLORIDE 0.9% 1,000 ML IV SCH ×3 (03:07→16:43)
[2020-08-11] MEDS: METOPROLOL TARTRATE 5 MG/5 ML VIAL IVP SCH ×4 (05:28→23:15)
[2020-08-11] MEDS: NAFCILLIN 2 GM in DEXTROSE 5% IN WATER 100 ML IVPB SCH ×12 (05:28→23:14)
[2020-08-11 06:22] LABS: Glucose,Whole Blood 186 mg/dL (75-99)
[2020-08-11] MEDS: INSULIN ASPART (NovoLOG) 100 UNIT/ML VIAL SQ SCH ×4 (07:46→20:23)
[2020-08-11 07:56] LABS: Basophils % (A) 0 %; Eosinophils % (A) 0 %; HCT 26.7 % (39.0-53.0); HGB 8.8 gm/dL (13.0-17.5); Hypochromasia Slight; Lymphocytes # (A) 0.3 k/uL (1.0-4.8); Lymphocytes % (A) 7 %; MCH 31.6 pg (25.0-35.0); MCV 95.9 fL (80.0-100.0); Mean Platelet Volume 8.3; Monocytes # (A) 0.2 k/uL (0-1.0); Monocytes % (A) 4 %; Neutrophils # (A) 4.5 k/uL (1.3-7.7); Neutrophils % (A) 88 %; Platelet Count 201 k/uL (150-450); Poikilocytosis Slight; RBC 2.79 m/uL (4.30-5.90); RDW 14.9 % (11.5-15.5); WBC 5.1 k/uL (3.8-10.6)
[2020-08-11] MEDS: IPRATROPIUM-ALBUTEROL 3 ML NEB INHALATION SCH ×4 (07:57→19:50)
[2020-08-11 08:10] LABS: Albumin 2.4 g/dL (3.5-5.0); Calcium 8.1 mg/dL (8.4-10.2); Total Bilirubin 1.4 mg/dL (0.2-1.3); Total Protein 4.9 g/dL (6.3-8.2)
[2020-08-11] MEDS: ASPIRIN 81 MG PO SCH (08:52)
[2020-08-11] MEDS: CLOPIDOGREL 75 MG TAB PO SCH (08:52)
--- NOTE | 2020-08-11 09:46 | P.PN ---
Subjective Progress Note Date: 08/11/20 HISTORY OF PRESENT ILLNESS: This is a 75-year-old male one of my patient with previous medical history significant for coronary artery disease status post percutaneous coronary int ervention and stent placement last one was in 12/13/2019 in the mid RCA at that time he was found to have a totally occluded obtuse marginal one of the LCx, with collaterals from the PDA, hypertension and hypertensive cardio vascular disease, hyperlipidemia, diabetes mellitus type 2, diabetic polyneuropathy, 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 as well as radio frequency ablation, prostate cancer status post radiation therapy, patient took himself off the Plavix due to significant 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 and 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 and he was taken a baby aspirin alone, patient presented to the emergency department at [facility] on 07/28/2020 with what appears to be an inferior wall ST elevation myocardial infarction patient was taken to the hoisting laborer and an attempted angioplasty of a computed occluded RCA had failed and the patient was transferred to [facility] for complex angioplasty of the occluded RCA, apparently patient did have 2 stents placement in the RCA and he was discharged from [facility] and patient has been getting more at all with poor appetite and his having some issues with his left knee not able to walk on the knee associated with knee buckling and locking patient had lost his appetite, he ended up coming to the emergency department at [facility] today after his daughter contacted by staff and they directed her to go to the emergency department for evaluation of possible septic knee, patient was seen and evaluated in the ER he had temperature and his white count were normal, her d-dimer was elevated his troponin was slightly elevated as well, patient was started on IV antibiotic in the form of vancomycin as well as Zosyn, blood cultures will be obtained, aspiration of the left knee showed cloudy fluid the result of which still pending at the time of dictation orthopedic surgery consultation was obtained from Dr. Choi, patient will be admitted to hospital for further evaluation, his platelet count were down to 62,000 and his lactic acid was elevated suggestive of sepsis. 08/06: Patient is seen today in follow-up. COVID-[address] angios the chest showed no large central pulmonary emboli. Motion artifact of the bilateral lungs without focal airspace opacities. Fatty liver. Venous ultrasound was negative for DVT of the left lower extremity. Patient's home medication list needs to be updated. Will add and Lantus 18 units at bedtime, Plavix 75 mg daily, Januvia. Patient's nurse was updated that the patient's medication list needs to be confirmed. He has been seen by Dr. Choi and plan for I&D of the left knee today. Patient is currently on vancomycin IV and Zosyn. Patient has been afebrile, heart rate 104, respiratory rate 26, blood pressure 125/65, pulse ox 96% on room air. Repeat lactic acid is 8.3. Repeat troponin 3.790. WBC 7.7, hemoglobin 10.6. Sodium 128, potassium 3.5, chloride 98, CO2 18, BUN 25 and creatinine 1.62. Blood sugar 317. Calcium 7.6. Magnesium 1.8. Total bilirubin 3.1, AST 85, ALT 55, alkaline phosphatase 37. Fluid studies reveal RBC 3600, nucleated cells 62,000, polynuclear WBCs 85, and mononuclear WBCs 15, glucose 104, total protein 3330. Crystals pending. Consult also in place with cardiology and Dr. Strickland. 08/07: Has been afebrile, heart rate 103, blood pressure 116/61, pulse ox 96% on 2 L nasal cannula. Repeat troponins were 4.390 and 5.6. Blood sugars are running between 178 and 222. Blood culture is presumptive staph aureus on 2 specimens and fluid culture from the knee is also presumptive staph aureus. Repeat blood culture will be ordered today. Fluid analysis showed no crystals. Patient has been seen by cardiology and cleared for surgery. Patient subsequently underwent incision and drainage of the left total knee. The patient has also been followed by Dr. Chacon 8 and covered with antibiotics on Kefzol 2 g IV piggyback every 8 hours. Repeat blood work reveals WBC of 8.4, hemoglobin 9.8, platelet count 75. Sodium 131, potassium 3.9, chloride 99, CO2 19, BUN 43 and creatinine 3.02. Blood sugars are running between 178 and 222. Total bilirubin 1.7, AST 152, ALT 59. Troponin is 7.420. Radiology continues to follow. Diovan will be discontinued and consult placed with nephrology. 08/08: Patient is feeling more sick today with increased abdominal distention and increased hiccups, he is having very poor appetite is not able to tolerate his diet, he is requiring oxygen, chest x-ray and abdominal x-ray showed a gastric outlet obstruction, NG tube was placed and surgical consultation was obtained, continue IV fluid, patient will be seen in consultation by ICU for possible transfer to the intensive care unit due to his multiple medical issues. 08/09: Patient is laying down in bed he is feeling a bit better today he continues to have his NG tube in place, his stomach is less distended, less and she output, patient was started on heparin drip, he would be started on aspirin 300 mg per rectum, since is nothing by mouth we will start the patient on Lopressor 2.5 mg IV push every 6 hours around the clock hold for systolic blood pressure less than 100 or heart rate less than 55, patient has been followed by infectious disease, cardiology, pulmonary, as well as general surgery, we will maintain the patient on current treatment plan, we'll continue to follow very closely. 08/10: Patient is laying down but he continues to have significant pain in the cervical spine as well as lumbar spine is not able to move around much, he continues to have a lot of muscle spasm, no fever or chills, he was switched to nafcillin every 4 hours due to the fact that he has Staphylococcus aureus, his Drano out of the left knee is not having much drainage hopefully would be pulled today, patient's pain is not controlled very well, his NG tube was removed, his nothing per mouth, continue with heparin drip, continue with aspirin per rectum, he has no chest pain or shortness breath at this time he has no abdominal pain, he has no nausea or vomiting, we will start the patient on fentanyl patch 12 MCG once every 72 hours, monitor the patient very closely, continue with physical therapy evaluation. 08/11: Patient is sitting up in a recliner chair his in a lot of pain continue to have a significant neck spasm, he did receive Flexeril without any benefit, we will start the patient on Robaxin 750 mg orally 3 times every day continue fentanyl patch, continue with current pain management, there is no evidence of any discitis at this point in time continue IV antibiotic in the form of nafcillin, patient is scheduled to go for EGD tomorrow morning. Patient is nothing per mouth at this point except medication. REVIEW OF SYSTEMS: Constitutional: Denies fever, denies chills, no night sweats, positive for fatigue , positive for lethargy and sleeping and weight loss. HEENT: Positive for headache. No blurred vision or double vision, no loss of vision. No loss of Hearing, no ringing in the ears, no dizziness. No nasal d rainage or congestion. No epistaxis. No sore throat. Respiratory: No shortness of breath, no cough, no sputum production. No wheezing. Reports dyspnea with activity. Cardiovascular: No chest pain, no lower extremity edema. No palpitations. No paroxysmal nocturnal dyspnea. No orthopnea. No lightheadedness or dizziness. No syncopal episodes. Gastrointestinal: abdom positive forinal pain. No nausea, vomiting. No diarrhea. No constipation. No bloody or tarry stools positive for passing gas. Genitourinary: Shelley catheter in place for urinary retention. Musculoskeletal: Positive for myalgias. positive for muscle weakness, Positive for gait dysfunction, no frequent falls, positive for left knee pain, locking, positive for low back pain, positive for severe neck pain with spasm. Integumentary: No wounds, no lesions. No rash or pruritus. Positive for bruising. No change in hair or nails. Neurologic: No aphasia. No facial droop. No change in mentation. No head injury. No headache. No paralysis, positive for paresthesia in the left upper extremity. Psychiatric: No depression. No anxiety. No mood swings. Endocrine: hyperglycemia . PHYSICAL EXAMINATION: General: This is 75-year-old male who appears to be moderately ill does not appear to be in acute respiratory distress. HEENT: Head is atraumatic, normocephalic, pupils were equal round reactive to light and recommendation, extraocular muscle movement were intact, sclera non icteric, conjunctivae were pale, mucous membranes of the mouth are somewhat dry, Neck: Spastic was severe limitation in range of motion, no JVP, normal carotid upstroke bilaterally, no lymphadenopathy. Chest: Decreased breath sounds at the bases, few rhonchi, no extremity wheezes, no chest wall tenderness, no intercostal retractions, decreased tactile fremitus at the lower two thirds of the left lung field. Heart: First heart sound is normal, second heart sound is normal there is systolic ejection murmur 2/6 left sternal border. Abdomen: Soft, , mild tenderness to the epigastric area distended, positive bowel sounds, no hepatosplenomegaly Extremities: There is mild edema no calf tenderness DP + 1 bilaterally, left knee mildly tender to palpation with slightly swollen, drain was removed. Neurologic examination: Patient is awake alert and oriented X3, cranial nerves II-12 appear grossly intact, muscle power were 3 out of 5 in upper extremities and 3 out of 5 in bilateral lower extremities. ASSESSMENT AND PLAN: 1. Septic arthritis of the left knee. Initial blood culture and fluid culture positive for staph aureus. Repeat blood culture ordered. Continue IV antibiotic in the form of nafcillin 2 g IV piggyback every 4 hours, or so and ID are following. 2. Lactic acidosis due to sepsis. Resolved. decrease IV fluid to 75 mL an hour. 3. Thrombocytopenia area and likely related to sepsis . Resolved. 4. Recent left heart catheterization with PCI of the RCA on 07/30/2020 Continue patient on aspirin 300 mg per rectum, Lopressor 2.5 mg IV push every 6 hours, and heparin drip. 5. Elevated troponin possibly due to prior intervention possibly non-ST elevation ND . Cardiology is following, patient did receive a loading dose of Plavix 300 mg orally once followed by Plavix 75 mg once every day, continue aspirin 81 mg once every day, continue with the Lopressor 2.5 mg IV push every 6 hours, we will restart the patient on atorvastatin 80 mg at bedtime. 6. Recent inferior wall ST elevation ND. Continue treatment as in paragraph #5 . 7. Acute kidney injury secondary to acute tubular necrosis and hypotension with possible sepsis induced and contrast-induced nephropathy. Monitor the patient very closely continue IV fluid monitor cmp. 8. acute kidney injury secondary to acute n tubular necrosis and possible Contrast-induced nephropathy. Continue IV fluid resuscitation the form of normal saline at 75 mL an hour nephrology is following. 9. Hypertension and hypertensive cardiovascular disease. continue Lopressor 2.5 mg IV push every 6 hours. 10. Hyperlipidemia. Restart atorvastatin 80 mg orally once every day. 11. Diabetes mellitus type 2. Start the patient on sliding scale insulin along with Lantus 22 units at bedtime, discontinue Tradjenta 11. History of prostate cancer status post rotation. Stable at this time. 12. 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 Spine surgery is following, patient underwent an MRI the cervical spine that showed significant disc disease without evidence of discitis. 13. DVT prophylaxis. Bilateral knee-high ADAIR katharinee, restart the patient on Lovenox 30 mg subcutaneously every 24 hours. 14. GI prophylaxis. Protonix 40 mg orally once every day. 15. Patient is full code. 16. Overall prognosis is very guarded. 17. Medical debility. Physical therapy evaluation 12. Hypokalemia. Patient will be given potassium chloride 40 mEq IV piggyback 1. DISCHARGE PLAN: Patient may require subacute versus inpatient rehab . Objective - Vital Signs Vital signs: Vital Signs Temp 97.7 F 08/11/20 03:46 Pulse 95 08/11/20 08:05 Resp 16 08/11/20 03:46 BP 148/72 08/11/20 03:46 Pulse Ox 95 08/11/20 07:58 Intake & Output 08/10/20 08/11/20 08/11/20 18:59 06:59 18:59 Intake Total 1354.93 100 Output Total 1000 1025 125 Balance 354.93 -925 -125 Weight 121.5 kg Intake: IV 1200 100 Nafcillin 2 gm In 200 100 Dextrose 5% in Water 100 ml @ 50 mls/hr IVPB Q4HR LAURA Rx#:[id number] Sodium Chloride 0.9% 1, 1000 000 ml @ 125 mls/hr IV . Q8H LAURA Rx#:[id number] Intake, IV Titration 154.93 Amount Heparin Sod,Pork in 0.45% 154.93 NaCl 25,000 unit In 0.45 % NaCl 1 250ml.bag @ 8. 7719 UNITS/KG/HR 10 mls/ hr IV .Q24H LAURA Rx#: [id number] Output: Urine 1000 1025 125 Uretheral (Shelley) 775 Other: Voiding Method Indwelling Catheter Indwelling Catheter - Labs CBC & Chem 7: 08/11/20 07:45 08/11/20 07:45 Labs: Abnormal Lab Results - Last 24 Hours (Table) 08/09/20 08/10/20 08/10/20 Range/Units 05:22 11:36 16:30 RBC (4.30-5.90) m/uL Hgb (13.0-17.5) gm/dL Hct (39.0-53.0) % Lymphocytes # (1.0-4.8) k/uL APTT (22.0-30.0) sec Potassium (3.5-5.1) mmol/L Chloride (98-107) mmol/L Carbon Dioxide (22-30) mmol/L BUN (9-20) mg/dL Creatinine (0.66-1.25) mg/dL Glucose (74-99) mg/dL POC Glucose (mg/dL) 178 H 171 H (75-99) mg/dL Calcium (8.4-10.2) mg/dL Iron 27 L (65-175) ug/dL % Saturation 11.59 L (15.00-50.00) Total Bilirubin (0.2-1.3) mg/dL Total Protein (6.3-8.2) g/dL Albumin (3.5-5.0) g/dL 08/10/20 08/11/20 08/11/20 Range/Units 20:17 06:20 07:45 RBC 2.79 L (4.30-5.90) m/uL Hgb 8.8 L (13.0-17.5) gm/dL Hct 26.7 L (39.0-53.0) % Lymphocytes # 0.3 L (1.0-4.8) k/uL APTT (22.0-30.0) sec Potassium (3.5-5.1) mmol/L Chloride (98-107) mmol/L Carbon Dioxide (22-30) mmol/L BUN (9-20) mg/dL Creatinine (0.66-1.25) mg/dL Glucose (74-99) mg/dL POC Glucose (mg/dL) 172 H 186 H (75-99) mg/dL Calcium (8.4-10.2) mg/dL Iron (65-175) ug/dL % Saturation (15.00-50.00) Total Bilirubin (0.2-1.3) mg/dL Total Protein (6.3-8.2) g/dL Albumin (3.5-5.0) g/dL 08/11/20 08/11/20 Range/Units 07:45 07:45 RBC (4.30-5.90) m/uL Hgb (13.0-17.5) gm/dL Hct (39.0-53.0) % Lymphocytes # (1.0-4.8) k/uL APTT 20.4 L (22.0-30.0) sec Potassium 3.0 L (3.5-5.1) mmol/L Chloride 111 H (98-107) mmol/L Carbon Dioxide 20 L (22-30) mmol/L BUN 40 H (9-20) mg/dL Creatinine 1.27 H (0.66-1.25) mg/dL Glucose 181 H (74-99) mg/dL POC Glucose (mg/dL) (75-99) mg/dL Calcium 8.1 L (8.4-10.2) mg/dL Iron (65-175) ug/dL % Saturation (15.00-50.00) Total Bilirubin 1.4 H (0.2-1.3) mg/dL Total Protein 4.9 L (6.3-8.2) g/dL Albumin 2.4 L (3.5-5.0) g/dL Microbiology - Last 24 Hours (Table) 08/10/20 05:43 Blood Culture Gram Stain - Preliminary Blood 08/10/20 05:43 Blood Culture - Final Blood 08/09/20 05:22 Blood Culture - Preliminary Blood No Growth after 48 hours 08/08/20 08:21 Blood Culture Gram Stain - Final Blood Blood Culture - Final Staphylococcus aureus 08/07/20 17:45 Blood Culture - Preliminary Blood No Growth after 72 hours 08/06/20 18:00 Anaerobic Culture - Final Knee - Left 08/06/20 18:00 Anaerobic Culture - Final Knee - Left
[2020-08-11 10:14] LABS: Erythrocyte Sedimentation Rate 102 mm/hr (0-15)
[2020-08-11] MEDS: POTASSIUM CHLORIDE 20 MEQ in WATER FOR INJECTION 1 100ML.BAG IVPB SCH ×2 (10:27→13:02)
[2020-08-11] MEDS: methocarbamoL 750 MG TAB PO PRN (10:40)
--- NOTE | 2020-08-11 10:48 | P.PN ---
Subjective Progress Note Date: 08/11/20 Principal diagnosis: 75-year-old male seen in consultation because of acute kidney injury from hypotension likely related to OBI inhibitor's but subsequently after admission he was found to have additionally left knee septic arthritis and bacteremia with staph aureus and sepsis. This morning is awake and alert but has generalized weakness. He was nothing by mouth because of failing swallow test. This morning is allowed to take pills. He remains profoundly weak. The pain in his left knee is better. Also complains of neck stiffness. He is hardly able to move, and he is on a lot of pain medications as well His creatinine continues to improve. His urine output is documented at 14 10 mL, 20 25 mL last 2 days. He continues to have fair amount of edema Objective - Vital Signs Vital signs: Vital Signs Temp 97.7 F 08/11/20 03:46 Pulse 95 08/11/20 08:05 Resp 16 08/11/20 03:46 BP 148/72 08/11/20 03:46 Pulse Ox 95 08/11/20 07:58 Intake & Output 08/10/20 08/11/20 08/11/20 18:59 06:59 18:59 Intake Total 1354.93 100 0 Output Total 1000 1025 125 Balance 354.93 -925 -125 Weight 121.5 kg Intake: IV 1200 100 Nafcillin 2 gm In 200 100 Dextrose 5% in Water 100 ml @ 50 mls/hr IVPB Q4HR LAURA Rx#:[id number] Sodium Chloride 0.9% 1, 1000 000 ml @ 125 mls/hr IV . Q8H LAURA Rx#:[id number] Intake, IV Titration 154.93 Amount Heparin Sod,Pork in 0.45% 154.93 NaCl 25,000 unit In 0.45 % NaCl 1 250ml.bag @ 8. 7719 UNITS/KG/HR 10 mls/ hr IV .Q24H LAURA Rx#: [id number] Oral 0 Output: Urine 1000 1025 125 Uretheral (Shelley) 775 Other: Voiding Method Indwelling Catheter Indwelling Catheter Awake alert but profoundly weak HEENT exam no JVP neck is supple no facial asymmetry Lungs are clear to auscultation fair air entry bilaterally Heart sounds unremarkable for any murmur rub gallop Abdomen soft nontender Extremity exam reveals mild edema Neurologically awake alert but profoundly weak - Labs CBC & Chem 7: 08/11/20 07:45 08/11/20 07:45 Labs: Abnormal Lab Results - Last 24 Hours (Table) 08/09/20 08/10/20 08/10/20 Range/Units 05:22 11:36 16:30 RBC (4.30-5.90) m/uL Hgb (13.0-17.5) gm/dL Hct (39.0-53.0) % Lymphocytes # (1.0-4.8) k/uL ESR (0-15) mm/hr APTT (22.0-30.0) sec Potassium (3.5-5.1) mmol/L Chloride (98-107) mmol/L Carbon Dioxide (22-30) mmol/L BUN (9-20) mg/dL Creatinine (0.66-1.25) mg/dL Glucose (74-99) mg/dL POC Glucose (mg/dL) 178 H 171 H (75-99) mg/dL Calcium (8.4-10.2) mg/dL Iron 27 L (65-175) ug/dL % Saturation 11.59 L (15.00-50.00) Total Bilirubin (0.2-1.3) mg/dL Total Protein (6.3-8.2) g/dL Albumin (3.5-5.0) g/dL 08/10/20 08/11/20 08/11/20 Range/Units 20:17 06:20 07:45 RBC 2.79 L (4.30-5.90) m/uL Hgb 8.8 L (13.0-17.5) gm/dL Hct 26.7 L (39.0-53.0) % Lymphocytes # 0.3 L (1.0-4.8) k/uL ESR 102 H (0-15) mm/hr APTT (22.0-30.0) sec Potassium (3.5-5.1) mmol/L Chloride (98-107) mmol/L Carbon Dioxide (22-30) mmol/L BUN (9-20) mg/dL Creatinine (0.66-1.25) mg/dL Glucose (74-99) mg/dL POC Glucose (mg/dL) 172 H 186 H (75-99) mg/dL Calcium (8.4-10.2) mg/dL Iron (65-175) ug/dL % Saturation (15.00-50.00) Total Bilirubin (0.2-1.3) mg/dL Total Protein (6.3-8.2) g/dL Albumin (3.5-5.0) g/dL 08/11/20 08/11/20 Range/Units 07:45 07:45 RBC (4.30-5.90) m/uL Hgb (13.0-17.5) gm/dL Hct (39.0-53.0) % Lymphocytes # (1.0-4.8) k/uL ESR (0-15) mm/hr APTT 20.4 L (22.0-30.0) sec Potassium 3.0 L (3.5-5.1) mmol/L Chloride 111 H (98-107) mmol/L Carbon Dioxide 20 L (22-30) mmol/L BUN 40 H (9-20) mg/dL Creatinine 1.27 H (0.66-1.25) mg/dL Glucose 181 H (74-99) mg/dL POC Glucose (mg/dL) (75-99) mg/dL Calcium 8.1 L (8.4-10.2) mg/dL Iron (65-175) ug/dL % Saturation (15.00-50.00) Total Bilirubin 1.4 H (0.2-1.3) mg/dL Total Protein 4.9 L (6.3-8.2) g/dL Albumin 2.4 L (3.5-5.0) g/dL Microbiology - Last 24 Hours (Table) 08/10/20 05:43 Blood Culture Gram Stain - Preliminary Blood 08/10/20 05:43 Blood Culture - Final Blood 08/09/20 05:22 Blood Culture - Preliminary Blood No Growth after 48 hours 08/08/20 08:21 Blood Culture Gram Stain - Final Blood Blood Culture - Final Staphylococcus aureus 08/07/20 17:45 Blood Culture - Preliminary Blood No Growth after 72 hours 08/06/20 18:00 Anaerobic Culture - Final Knee - Left 08/06/20 18:00 Anaerobic Culture - Final Knee - Left Assessment and Plan Assessment: Impression 1. Acute kidney injury from combination OBI inhibitor's on admission. On admi ssion his creatinine was 1.45 on 08/05/2020 and was baseline of 1.14 on 07/29/2020. Creatinine peaked at 3.21 on 08/08/2020 and is now down to 1.27. He has fair amount of urine output. 2. left septic arthritis with bacteremia with staph aureus bacteremia. 3. Hypokalemia secondary to poor intake, rule out magnesium deficiency. An element of IV normal saline induce potassium loss 4. Mild degree of non-gap acidosis from acute kidney injury. Bicarb improved to 20 with a gap of 9 5. Anemia hemoglobin 8.8 6. Staph bacteremia blood cultures are positive last time on 08/08/2020, subsequent blood cultures as of 08/09/2020 is negative. 7. Swallow difficulties improving Recommendation 1. Currently on KCl IV. If necessary can be given by mouth now that he is allowed to take by mouth medications. 2. Will hold off sodium bicarbonate because of the difficulty of his swallowing and as his acidosis improving. 3. Check magnesium, if potassium continues to be low. Last magnesium was 2.6 dated 08/08/2020
--- NOTE | 2020-08-11 10:52 | P.PN ---
Subjective Progress Note Date: 08/11/20 Principal diagnosis: Septic arthritis left knee. Bacteremia. Neck pain. Bilateral upper extremity weakness. History of total left knee arthroplasty. Status-post cardiac catheterization. This patient is a 75-year-old gentleman with a past medical history of diabetes, hypertension hyperlipidemia, prostates cancer, and recent cardiac catheterization that presented to emergency room on 08/05/2020 with new onset left knee pain. The pain had become worse over the past week or so since he's had a recent cardiac catheterization. The knee was aspirated by the emergency room department and purulent fluid was removed with high nucleated cell count in the fluid. Patient also has positive blood cultures. After discussing the surgical and nonsurgical treatment options with him at length, it was recommended an incision and drainage of the knee with retention of the implants. The patient was taken to the operating room on 08/06/2020 for I&D of the left knee with Dr. Raji Choi. 08/11/20: Patient is seen and examined bedside today. He is up in the bedside recliner. Patient states he is overall feeling better today, although he continues to complain of neck pain. Patient denies any left knee pain. Hemovac drain from the left knee was pulled yesterday. Patient is currently NPO and plan is to undergo an endoscopy tomorrow. CT neck/chest was ordered per neurology due to patient's ongoing neck pain. Repeat blood cultures are positive. Patient currently on Nafcil per Dr. Strickland, which was started early Wednesday morning. Patient has no new complaints today. He denies chest pain, shortness of breath, nausea, vomiting. Vital signs stable. Objective - Vital Signs Vital signs: Vital Signs Temp 97.7 F 08/11/20 03:46 Pulse 95 08/11/20 08:05 Resp 16 08/11/20 03:46 BP 148/72 08/11/20 03:46 Pulse Ox 95 08/11/20 07:58 Intake & Output 08/10/20 08/11/20 08/11/20 18:59 06:59 18:59 Intake Total 1354.93 100 0 Output Total 1000 1025 125 Balance 354.93 -925 -125 Weight 121.5 kg Intake: IV 1200 100 Nafcillin 2 gm In 200 100 Dextrose 5% in Water 100 ml @ 50 mls/hr IVPB Q4HR [facility] Rx#:[id number] Sodium Chloride 0.9% 1, 1000 000 ml @ 125 mls/hr IV . Q8H [facility] Rx#:[id number] Intake, IV Titration 154.93 Amount Heparin Sod,Pork in 0.45% 154.93 NaCl 25,000 unit In 0.45 % NaCl 1 250ml.bag @ 8. 7719 UNITS/KG/HR 10 mls/ hr IV .Q24H [facility] Rx#: [id number] Oral 0 Output: Urine 1000 1025 125 Uretheral (Shelley) 775 Other: Voiding Method Indwelling Catheter Indwelling Catheter - Exam On examination, the patient is up in the bedside recliner in no apparent distress. He is alert, appears mildly confused, but he is able to answer questions appropriately. On examination of the left lower extremity, there is a a dressing in place with no saturation. Overlying OBI wrap is taken down and reveals to saturation to the ABD pads. Overlying OBI wrap is re-applied. No significant pain with palpation of the left knee. Patient has full range of motion of the left foot and ankle without difficulty or pain. Dorsalis pedis pulse is easily palpable. Motor and sensory function is intact of the left lower extremity. The calf is soft and nontender to palpation. No pain with palpation or PROM of the bilateral shoulders, bilateral elbows, bilateral wrists. No pain with palpation or PROM of bilateral hips, bilateral ankles. No pain with palpation or PROM of right knee. - Labs CBC & Chem 7: 08/11/20 07:45 08/11/20 07:45 Labs: Abnormal Lab Results - Last 24 Hours (Table) 08/09/20 08/10/20 08/10/20 Range/Units 05:22 11:36 16:30 RBC (4.30-5.90) m/uL Hgb (13.0-17.5) gm/dL Hct (39.0-53.0) % Lymphocytes # (1.0-4.8) k/uL ESR (0-15) mm/hr APTT (22.0-30.0) sec Potassium (3.5-5.1) mmol/L Chloride (98-107) mmol/L Carbon Dioxide (22-30) mmol/L BUN (9-20) mg/dL Creatinine (0.66-1.25) mg/dL Glucose (74-99) mg/dL POC Glucose (mg/dL) 178 H 171 H (75-99) mg/dL Calcium (8.4-10.2) mg/dL Iron 27 L (65-175) ug/dL % Saturation 11.59 L (15.00-50.00) Total Bilirubin (0.2-1.3) mg/dL Total Protein (6.3-8.2) g/dL Albumin (3.5-5.0) g/dL 08/10/20 08/11/20 08/11/20 Range/Units 20:17 06:20 07:45 RBC 2.79 L (4.30-5.90) m/uL Hgb 8.8 L (13.0-17.5) gm/dL Hct 26.7 L (39.0-53.0) % Lymphocytes # 0.3 L (1.0-4.8) k/uL ESR 102 H (0-15) mm/hr APTT (22.0-30.0) sec Potassium (3.5-5.1) mmol/L Chloride (98-107) mmol/L Carbon Dioxide (22-30) mmol/L BUN (9-20) mg/dL Creatinine (0.66-1.25) mg/dL Glucose (74-99) mg/dL POC Glucose (mg/dL) 172 H 186 H (75-99) mg/dL Calcium (8.4-10.2) mg/dL Iron (65-175) ug/dL % Saturation (15.00-50.00) Total Bilirubin (0.2-1.3) mg/dL Total Protein (6.3-8.2) g/dL Albumin (3.5-5.0) g/dL 08/11/20 08/11/20 Range/Units 07:45 07:45 RBC (4.30-5.90) m/uL Hgb (13.0-17.5) gm/dL Hct (39.0-53.0) % Lymphocytes # (1.0-4.8) k/uL ESR (0-15) mm/hr APTT 20.4 L (22.0-30.0) sec Potassium 3.0 L (3.5-5.1) mmol/L Chloride 111 H (98-107) mmol/L Carbon Dioxide 20 L (22-30) mmol/L BUN 40 H (9-20) mg/dL Creatinine 1.27 H (0.66-1.25) mg/dL Glucose 181 H (74-99) mg/dL POC Glucose (mg/dL) (75-99) mg/dL Calcium 8.1 L (8.4-10.2) mg/dL Iron (65-175) ug/dL % Saturation (15.00-50.00) Total Bilirubin 1.4 H (0.2-1.3) mg/dL Total Protein 4.9 L (6.3-8.2) g/dL Albumin 2.4 L (3.5-5.0) g/dL Microbiology - Last 24 Hours (Table) 08/10/20 05:43 Blood Culture Gram Stain - Preliminary Blood 08/10/20 05:43 Blood Culture - Final Blood 08/09/20 05:22 Blood Culture - Preliminary Blood No Growth after 48 hours 08/08/20 08:21 Blood Culture Gram Stain - Final Blood Blood Culture - Final Staphylococcus aureus 08/07/20 17:45 Blood Culture - Preliminary Blood No Growth after 72 hours 08/06/20 18:00 Anaerobic Culture - Final Knee - Left 08/06/20 18:00 Anaerobic Culture - Final Knee - Left Assessment and Plan Assessment: Septic arthritis left knee status-post I&D 08/06/20. Bacteremia with staph aureus. Neck pain. Bilateral upper extremity weakness. History of total left knee arthroplasty in 2018. Status-post cardiac catheterization. Plan: - Daily dressing changes to left knee. Dressing has no saturation today and appears clean. Will plan to change tomorrow. - Patient may bear weight as tolerated on the left knee. Up with assistance. - Antibiotics per Dr. Strickland. - Medical management per multiple medical specialities following including IM, cardiology, neurology, surgery, nephrology, infectious disease, orthopedic spine surgery. - We will follow patient closely and make recommendations as needed.
[2020-08-11 11:40] LABS: Glucose,Whole Blood 206 mg/dL (75-99)
--- NOTE | 2020-08-11 15:28 | P.PN ---
Progress Note - Text Progress Note Date: 08/11/20 Patient remains unchanged. He has had no significant flatus or bowel movement. On exam her lesser stable. Abdomen soft. Ileus. Patient will undergo EGD with Dr. Bear tomorrow.
--- NOTE | 2020-08-11 16:11 | PN ---
PROGRESS NOTE DATE OF SERVICE: 08/11/2020 REASON FOR FOLLOWUP: MSSA bacteremia secondary to left knee septic arthritis. INTERVAL HISTORY: The patient is currently afebrile. Patient is slightly weak and lethargic. Denies any chest pain, cough or abdominal pain or pain to the left lower extremity. PHYSICAL EXAMINATION: Blood pressure 154/76, pulse of 90, temperature 98.2. He is 98% on room air. General description is an elderly male lying in bed in no distress. Respiratory system: Unlabored breathing, clear to auscultation anteriorly. Heart S1, S2. Regular rate and rhythm. Abdomen soft, no tenderness. LABS: Hemoglobin 8.1, white count of 5.1. BUN of 40, creatinine 1.27. DIAGNOSTIC IMPRESSION AND PLAN: Patient with MSSA bacteremia secondary to left knee septic arthritis status post excision of bursa and antibiotic spacer placement. The patient did have positive blood culture. Will request to make sure no evidence of any vegetation. Continue with nafcillin and daily blood cultures. Monitor clinical course closely. [facility] / IJN: [id number] /
[2020-08-11 16:51] LABS: Glucose,Whole Blood 181 mg/dL (75-99)
--- NOTE | 2020-08-11 17:14 | P.PN ---
Subjective HISTORY OF PRESENT ILLNESS: This is a 75-year-old male with a past medical history significant for hypertension, hyperlipidemia, diabetes mellitus, osteoarthritis, GERD, and coronary artery disease. Patient follows in the office with Dr. Valencia. We have been asked to see the patient in consultation for cardiac clearance. Patient is scheduled to undergo I&D of left knee this afternoon with orthopedics. Patient was recently hospitalized earlier this month secondary to inferior STEMI. He was taken to the collaborative physician but Dr. Vora was unsuccessful at advancing balloon or artherectomy after multiple attempts per his cath report. Echocardiogram completed at that time revealed ejection fraction of 25-30%. Patient was transfe rred to [facility] where he states he had two stents placed. He was placed on aspirin and plavix. Patient examined at the bedside this morning. He states his left knee started hurting shortly after he was discharged from [facility]. Patient denies any chest pain or pressure. He denies shortness of breath. Patient states he is able to lay flat in bed without any dyspnea. 08/07 Patient seen and examined. Per nursing patient has been having extreme neck and back pain as well knee pain and therefore received narcotics. Currently somewhat lethargic and slow to answer questions with recent Dilaudid given, however he denies any chest pain or pressure which he had previously with his TN. Troponins were mildly increasing yesterday, repeat this morning pending. Platelets also have been decreasing. Blood cultures and knee cultures positive for staph aureus. 08/08 Patient seen and examined. Patient has been having increased abdominal fullness with concern of bowel obstruction and therefore NG tube was placed, currently to suction. Patient's troponins peaked and are now on the way down. He denies any chest pain. Has continued back and knee pain. Echo taken and awaiting read. 08/09 Patient seen and examined. Patient resting more comfortably today. Still somewhat confused however denies any chest pain, pressure, shortness breath. Patient still has NG tube in place. Patient placed on a heparin drip yesterday. Cr mildly improved to 2.1 today. 08/10 Patient seen and examined. Patient appears more comfortable today and states he feels somewhat better. He did pull his NG tube out however denies any abdominal pain, no chest pain or pressure. He has been receiving rectal aspirin however has not been receiving Plavix and is on heparin drip. 08/11 Patient seen and examined. Patient states he feels better. He did have a blood culture 1 of 2 drawn yesterday 08/10 which is still resulting is positive for staph aureus. Denies any chest pain or pressure. His creatinine continues to improve. REVIEW OF SYSTEMS: At the time of my exam: CONSTITUTIONAL: Denies fever or chills. HEENT: Denies blurred vision, vision changes, or eye pain. Denies hemoptysis CARDIOVASCULAR: Denies chest pain. Denies orthopnea. Denies PND. Denies palpitations RESPIRATORY: Denies shortness of breath. GASTROINTESTINAL: Denies abdominal pain. Denies nausea or vomiting. HEMATOLOGIC: Denies bleeding disorders. GENITOURINARY: Denies any blood in urine. SKIN: Denies pruitis. Denies rash. PHYSICAL EXAM: VITAL SIGNS: Reviewed. GENERAL: Well-developed in no acute distress. ill appearing HEENT: Head is normocephalic. Pupils are equal, round. Sclerae anicteric. Mucous membranes of the mouth are moist. Neck supple. No JVD or thyromegaly LUNGS: Respirations even and unlabored. Lungs essentially clear to auscultation bilaterally. HEART: Regular rate and rhythm. S1 and S2 heard. ABDOMEN: Soft. Nondistended. Nontender. EXTREMITIES: No clubbing or cyanosis. Peripheral pulses intact. Left knee tender with palpation. Left knee swollen with slightly decreased range of motion due to pain. NEUROLOGIC: Awake and appears mildly confused ASSESSMENT: Septic arthritis of left knee Recent inferior STEMI Coronary artery disease with PCI to RCA Abnormal troponins, no evidence of ACS Ischemic cardiomyopathy, EF 25-30% Hypertension Hyperlipidemia Diabetes mellitus Staph aureus bacteremia Thrombocytopenia. NSTEMI likely type 2 mechanism from sepsis Possible bowel obstruction, NG tube in place NIMCO PLAN: Echocardiogram performed 08/07 shows ejection fraction 50-55% and no mention of significant vegetation noted. Patient without anginal symptoms such as chest pain which he had with his prior TN. Suspect Type 2 NSTEMI from sepsis. Given recent stent placement, continue aspirin and Plavix. Patient with persistent staph for his bacteremia. No significant murmur on exam . If blood cultures are still not clearing with suspicion of septic knee being clear, may consider LISA in the future. ID recommendations appreciated. Objective - Vital Signs Vital signs: Vital Signs Temp 97.6 F 08/11/20 15:11 Pulse 89 08/11/20 15:11 Resp 16 08/11/20 15:11 BP 163/80 08/11/20 15:11 Pulse Ox 97 08/11/20 15:11 Intake & Output 08/10/20 08/11/20 08/11/20 18:59 06:59 18:59 Intake Total 1354.93 100 20 Output Total 1000 1025 1100 Balance 354.93 -925 -1080 Weight 121.5 kg Intake: IV 1200 100 20 Invasive Line 5 20 Nafcillin 2 gm In 200 100 Dextrose 5% in Water 100 ml @ 50 mls/hr IVPB Q4HR [facility] Rx#:[id number] Sodium Chloride 0.9% 1, 1000 000 ml @ 75 mls/hr IV . [id number] [facility] Rx#:[id number] Intake, IV Titration 154.93 Amount Heparin Sod,Pork in 0.45% 154.93 NaCl 25,000 unit In 0.45 % NaCl 1 250ml.bag @ 8. 7719 UNITS/KG/HR 10 mls/ hr IV .Q24H [facility] Rx#: [id number] Oral 0 Output: Urine 1000 1025 1100 Uretheral (Shelley) 775 Other: Voiding Method Indwelling Catheter Indwelling Catheter Indwelling Catheter - Labs CBC & Chem 7: 08/11/20 07:45 08/11/20 07:45 Labs: Abnormal Lab Results - Last 24 Hours (Table) 08/10/20 08/11/20 08/11/20 Range/Units 20:17 06:20 07:45 RBC 2.79 L (4.30-5.90) m/uL Hgb 8.8 L (13.0-17.5) gm/dL Hct 26.7 L (39.0-53.0) % Lymphocytes # 0.3 L (1.0-4.8) k/uL ESR 102 H (0-15) mm/hr APTT (22.0-30.0) sec Potassium (3.5-5.1) mmol/L Chloride (98-107) mmol/L Carbon Dioxide (22-30) mmol/L BUN (9-20) mg/dL Creatinine (0.66-1.25) mg/dL Glucose (74-99) mg/dL POC Glucose (mg/dL) 172 H 186 H (75-99) mg/dL Calcium (8.4-10.2) mg/dL Total Bilirubin (0.2-1.3) mg/dL Total Protein (6.3-8.2) g/dL Albumin (3.5-5.0) g/dL 08/11/20 08/11/20 08/11/20 Range/Units 07:45 07:45 11:39 RBC (4.30-5.90) m/uL Hgb (13.0-17.5) gm/dL Hct (39.0-53.0) % Lymphocytes # (1.0-4.8) k/uL ESR (0-15) mm/hr APTT 20.4 L (22.0-30.0) sec Potassium 3.0 L (3.5-5.1) mmol/L Chloride 111 H (98-107) mmol/L Carbon Dioxide 20 L (22-30) mmol/L BUN 40 H (9-20) mg/dL Creatinine 1.27 H (0.66-1.25) mg/dL Glucose 181 H (74-99) mg/dL POC Glucose (mg/dL) 206 H (75-99) mg/dL Calcium 8.1 L (8.4-10.2) mg/dL Total Bilirubin 1.4 H (0.2-1.3) mg/dL Total Protein 4.9 L (6.3-8.2) g/dL Albumin 2.4 L (3.5-5.0) g/dL 08/11/20 Range/Units 16:49 RBC (4.30-5.90) m/uL Hgb (13.0-17.5) gm/dL Hct (39.0-53.0) % Lymphocytes # (1.0-4.8) k/uL ESR (0-15) mm/hr APTT (22.0-30.0) sec Potassium (3.5-5.1) mmol/L Chloride (98-107) mmol/L Carbon Dioxide (22-30) mmol/L BUN (9-20) mg/dL Creatinine (0.66-1.25) mg/dL Glucose (74-99) mg/dL POC Glucose (mg/dL) 181 H (75-99) mg/dL Calcium (8.4-10.2) mg/dL Total Bilirubin (0.2-1.3) mg/dL Total Protein (6.3-8.2) g/dL Albumin (3.5-5.0) g/dL Microbiology - Last 24 Hours (Table) 08/10/20 05:43 Blood Culture Gram Stain - Preliminary Blood Blood Culture - Preliminary Staphylococcus aureus 08/10/20 05:43 Blood Culture - Final Blood 08/09/20 05:22 Blood Culture - Preliminary Blood No Growth after 48 hours 08/08/20 08:21 Blood Culture Gram Stain - Final Blood Blood Culture - Final Staphylococcus aureus 08/07/20 17:45 Blood Culture - Preliminary Blood No Growth after 72 hours 08/06/20 18:00 Anaerobic Culture - Final Knee - Left 08/06/20 18:00 Anaerobic Culture - Final Knee - Left
[2020-08-11] MEDS: INSULIN DETEMIR (LEVEMIR) 100 UNIT/ML SYR SQ SCH (20:21)
[2020-08-11 20:28] LABS: Glucose,Whole Blood 148 mg/dL (75-99)
--- NOTE | 2020-08-11 23:54 | P.PN ---
Subjective Progress Note Date: 08/11/20 Patient was seen via tele-neurology for a follow-up. Patient continues to be confused. He is feeling very tired. Denies headache. Flexeril did not work. Patient started on Robaxin 750 mg. Still with neck pain, which he rates severe. Also admits to low back pain, severe. He could not relate it on 1-10 scale. Patient states that he has had similar pain and neck spasms in the past as well. He states that this neck spasm is not new" for him. Objective - Vital Signs Vital signs: Vital Signs Temp 98.1 F 08/11/20 20:30 Pulse 101 H 08/11/20 23:08 Resp 18 08/11/20 23:08 BP 161/86 08/11/20 23:08 Pulse Ox 98 08/11/20 23:08 Intake & Output 08/11/20 08/11/20 08/12/20 06:59 18:59 06:59 Intake Total 100 20 10 Output Total 1025 1350 850 Balance -925 -1330 -840 Weight 121.5 kg Intake: IV 100 20 10 Invasive Line 5 20 10 Nafcillin 2 gm In 100 Dextrose 5% in Water 100 ml @ 50 mls/hr IVPB Q4HR [facility] Rx#:[id number] Oral 0 Output: Urine 1025 1350 850 Uretheral (Shelley) 300 Other: Voiding Method Indwelling Catheter Indwelling Catheter Indwelling Catheter - Exam Patient is encephalopathic. He is slightly groggy, but more alert. Patient's neck is still very stiff. He has head deviated to the right side. Patient cannot bring his head past the midline to the left. Patient's pain get worse, when head is passively flexed or extended. Patient's neck is stiff for passive movement as well. Patient states the neck pain is "severe" even without any movement, which gets further worse with movement. Straight leg raising test was positive. He could not tell where the pain is although he did feel pain significantly. - Labs CBC & Chem 7: 08/11/20 07:45 08/11/20 07:45 Labs: Abnormal Lab Results - Last 24 Hours (Table) 08/11/20 08/11/20 08/11/20 Range/Units 06:20 07:45 07:45 RBC 2.79 L (4.30-5.90) m/uL Hgb 8.8 L (13.0-17.5) gm/dL Hct 26.7 L (39.0-53.0) % Lymphocytes # 0.3 L (1.0-4.8) k/uL ESR 102 H (0-15) mm/hr APTT (22.0-30.0) sec Potassium 3.0 L (3.5-5.1) mmol/L Chloride 111 H (98-107) mmol/L Carbon Dioxide 20 L (22-30) mmol/L BUN 40 H (9-20) mg/dL Creatinine 1.27 H (0.66-1.25) mg/dL Glucose 181 H (74-99) mg/dL POC Glucose (mg/dL) 186 H (75-99) mg/dL Calcium 8.1 L (8.4-10.2) mg/dL Total Bilirubin 1.4 H (0.2-1.3) mg/dL Total Protein 4.9 L (6.3-8.2) g/dL Albumin 2.4 L (3.5-5.0) g/dL 08/11/20 08/11/20 08/11/20 Range/Units 07:45 11:39 16:49 RBC (4.30-5.90) m/uL Hgb (13.0-17.5) gm/dL Hct (39.0-53.0) % Lymphocytes # (1.0-4.8) k/uL ESR (0-15) mm/hr APTT 20.4 L (22.0-30.0) sec Potassium (3.5-5.1) mmol/L Chloride (98-107) mmol/L Carbon Dioxide (22-30) mmol/L BUN (9-20) mg/dL Creatinine (0.66-1.25) mg/dL Glucose (74-99) mg/dL POC Glucose (mg/dL) 206 H 181 H (75-99) mg/dL Calcium (8.4-10.2) mg/dL Total Bilirubin (0.2-1.3) mg/dL Total Protein (6.3-8.2) g/dL Albumin (3.5-5.0) g/dL 08/11/20 Range/Units 20:23 RBC (4.30-5.90) m/uL Hgb (13.0-17.5) gm/dL Hct (39.0-53.0) % Lymphocytes # (1.0-4.8) k/uL ESR (0-15) mm/hr APTT (22.0-30.0) sec Potassium (3.5-5.1) mmol/L Chloride (98-107) mmol/L Carbon Dioxide (22-30) mmol/L BUN (9-20) mg/dL Creatinine (0.66-1.25) mg/dL Glucose (74-99) mg/dL POC Glucose (mg/dL) 148 H (75-99) mg/dL Calcium (8.4-10.2) mg/dL Total Bilirubin (0.2-1.3) mg/dL Total Protein (6.3-8.2) g/dL Albumin (3.5-5.0) g/dL Microbiology - Last 24 Hours (Table) 08/10/20 05:43 Blood Culture Gram Stain - Preliminary Blood Blood Culture - Preliminary Staphylococcus aureus 08/07/20 17:45 Blood Culture - Preliminary Blood No Growth after 96 hours 08/10/20 05:43 Blood Culture - Final Blood 08/09/20 05:22 Blood Culture - Preliminary Blood No Growth after 48 hours 08/08/20 08:21 Blood Culture Gram Stain - Final Blood Blood Culture - Final Staphylococcus aureus Assessment and Plan Assessment: * Altered mental status with fluctuating mental status, likely delirium, possible toxic metabolic encephalopathy. * Neck stiffness unclear cause. MRI of the cervical spine showed no definitive epidural collection. Meningitis less likely, as patient has no headache. CT of the head, neck and chest negative. * Septicemia with staph aureus * Septic arthritis left knee. * Elevated cardiac enzymes, with recent inferior STEMI * Ischemic cardiomyopathy * Partial gastric outlet obstruction * Acute renal failure, improving. * Elevated cardiac enzymes * Diabetes Plan: * Patient has septicemia with staph aureus. Patient complaining of severe neck and low back pain. Patient's muscle strength of bilateral upper and lower extremities appears normal. MRI of the cervical spine with IV contrast showed no definitive epidural collection. Patient has degenerative disc disease, which may be contributing to neck spasms, though unusual to effect like this. Discussed with ID, no evidence of meningitis. Consider lumbar puncture in the neck and back stiffness and soreness persists. * Patient has failed Valium, Flexeril and now started on Robaxin 750 mg every 8 hours as needed. * Computed tomography scan of the neck chest without contrast are negative. No abscess or mass. * Patient's renal functions are improving. BUN 40, creatinine 1.27. * Patient is on aspirin 81 mg and Plavix 75 mg for coronary artery disease and previous cardiac stents. * Other medical management as per IM, and other specialties.
[2020-08-12] MEDS: methocarbamoL 750 MG TAB PO PRN (03:03)
[2020-08-12] MEDS: HYDROmorphone 0.5 MG/0.5 ML SYRINGE IVP PRN ×3 (03:03→13:59)
[2020-08-12] MEDS: NAFCILLIN 2 GM in DEXTROSE 5% IN WATER 100 ML IVPB SCH ×10 (03:03→21:37)
[2020-08-12] MEDS: METOPROLOL TARTRATE 5 MG/5 ML VIAL IVP SCH ×3 (05:58→16:41)
[2020-08-12] MEDS: INSULIN ASPART (NovoLOG) 100 UNIT/ML VIAL SQ SCH ×4 (05:59→21:23)
[2020-08-12 06:56] LABS: Glucose,Whole Blood 183 mg/dL (75-99)
[2020-08-12] MEDS: IPRATROPIUM-ALBUTEROL 3 ML NEB INHALATION SCH ×4 (07:43→19:18)
[2020-08-12] MEDS ORDERED: ENOXAPARIN 30 MG/0.3 ML SYRINGE SQ SCH (09:00)
--- NOTE | 2020-08-12 09:05 | P.PN ---
Subjective Progress Note Date: 08/12/20 This is a 75-year-old male who is admitted with septicemia and blood cultures positive for staph aureus. Patient is status post incision and drainage of the left knee for septic arthritis. This is postoperative day #6. Patient is seen and evaluated at bedside today. Patient states he is doing well, but seems somewhat confused this morning. Patient denies any pain in the left knee and states that he has been able to transfer from the hospital bed to a chair. Patient is undergoing EGD today for ileus. Patient denies any new complaints today. Objective - Vital Signs Vital signs: Vital Signs Temp 98.2 F 08/12/20 03:17 Pulse 105 H 08/12/20 07:55 Resp 18 08/12/20 03:17 BP 162/73 08/12/20 03:17 Pulse Ox 95 08/12/20 07:43 Intake & Output 08/11/20 08/12/20 08/12/20 18:59 06:59 18:59 Intake Total 20 20 Output Total 1350 1250 Balance -1330 -1230 Weight 117.5 kg Intake: IV 20 20 Invasive Line 5 20 20 Oral 0 Output: Urine 1350 1250 Uretheral (Shelley) 300 Other: Voiding Method Indwelling Catheter Indwelling Catheter - Exam Vital signs are stable. Patient is in no acute distress. Patient is alert. Calf is soft and nontender to palpation. Dressing is clean, dry, and intact. No drainage present on the dressing. Incision is clean, dry and intact Patient has full foot and ankle motion without pain or difficulty. Neurovascular status and circulatory status are intact. - Labs CBC & Chem 7: 08/11/20 07:45 08/11/20 07:45 Labs: Abnormal Lab Results - Last 24 Hours (Table) 08/11/20 08/11/20 08/11/20 Range/Units 07:45 11:39 16:49 ESR 102 H (0-15) mm/hr POC Glucose (mg/dL) 206 H 181 H (75-99) mg/dL 08/11/20 08/12/20 Range/Units 20:23 06:50 ESR (0-15) mm/hr POC Glucose (mg/dL) 148 H 183 H (75-99) mg/dL Microbiology - Last 24 Hours (Table) 08/09/20 05:22 Blood Culture - Preliminary Blood No Growth after 72 hours 08/10/20 05:43 Blood Culture Gram Stain - Preliminary Blood Blood Culture - Preliminary Staphylococcus aureus 08/07/20 17:45 Blood Culture - Preliminary Blood No Growth after 96 hours 08/10/20 05:43 Blood Culture - Final Blood Assessment and Plan (1) Left knee pain Current Visit: Yes Status: Acute Code(s): M25.562 - PAIN IN LEFT KNEE SNOMED Code(s): 8847856716 (2) Infection of total left knee replacement Current Visit: Yes Status: Acute Code(s): T84.54XA - INFECT/INFLM REACTION DUE TO INTERNAL LEFT KNEE PROSTH, INIT SNOMED Code(s): 587402230 Plan: 1. Blood cultures are positive for staph aureus. 2. Continue daily dressing changes. IV antibiotics per infectious disease. 3. Appreciate input from internal medicine, cardiology, neurology and infectious disease. 4. Will continue to follow the patient closely.
[2020-08-12] MEDS: ASPIRIN 81 MG PO SCH (09:30)
[2020-08-12] MEDS: ATORVASTATIN 80 MG TAB PO SCH (09:30)
[2020-08-12] MEDS: CLOPIDOGREL 75 MG TAB PO SCH (09:30)
[2020-08-12] MEDS: SODIUM CHLORIDE 0.9% 1,000 ML IV SCH ×2 (09:31→21:38)
[2020-08-12 09:35] LABS: Basophils % (A) 0 %; Eosinophils % (A) 1 %; HCT 29.5 % (39.0-53.0); HGB 10.1 gm/dL (13.0-17.5); Hypochromasia Slight; Lymphocytes # (A) 0.3 k/uL (1.0-4.8); Lymphocytes % (A) 5 %; MCH 32.7 pg (25.0-35.0); MCHC 34.2 g/dL (31.0-37.0); MCV 95.4 fL (80.0-100.0); Mean Platelet Volume 7.9; Monocytes # (A) 0.2 k/uL (0-1.0); Monocytes % (A) 3 %; Neutrophils # (A) 5.7 k/uL (1.3-7.7); Neutrophils % (A) 91 %; Platelet Count 201 k/uL (150-450); Poikilocytosis Slight; RBC 3.09 m/uL (4.30-5.90); RDW 14.6 % (11.5-15.5); WBC 6.3 k/uL (3.8-10.6)
[2020-08-12 09:54] LABS: Albumin 2.5 g/dL (3.5-5.0); Calcium 8.8 mg/dL (8.4-10.2); Magnesium 1.8 mg/dL (1.6-2.3); Potassium 2.8 mmol/L (3.5-5.1); Total Bilirubin 1.4 mg/dL (0.2-1.3); Total Protein 5.2 g/dL (6.3-8.2)
[2020-08-12] MEDS ORDERED: POTASSIUM CHLORIDE ER 20 MEQ TAB.ER PO STA (11:07)
[2020-08-12] MEDS: POTASSIUM CHLORIDE 20 MEQ in WATER FOR INJECTION 1 100ML.BAG IVPB SCH ×2 (11:37→14:02)
[2020-08-12 11:38] LABS: Glucose,Whole Blood 206 mg/dL (75-99)
--- NOTE | 2020-08-12 12:04 | P.PN ---
Subjective Patient is seen in follow-up for acute kidney injury. Renal function continues to improve. Nothing by mouth. Blood pressure on the higher side. Has a Shelley catheter. Nonoliguric. Vital signs are stable. General: The patient appeared well nourished and normally developed. HEENT: Head exam is unremarkable. Neck is without jugular venous distension. LUNGS: Breath sounds decreased. HEART: Rate and Rhythm are regular. ABDOMEN: Soft, nontender. EXTREMITITES: Trace edema. Objective - Vital Signs Vital signs: Vital Signs Temp 98.6 F 08/12/20 08:30 Pulse 99 08/12/20 11:17 Resp 18 08/12/20 08:30 BP 172/78 08/12/20 08:30 Pulse Ox 95 08/12/20 08:30 Intake & Output 08/11/20 08/12/20 08/12/20 18:59 06:59 18:59 Intake Total 20 20 10 Output Total 1350 1250 Balance -1330 -1230 10 Weight 117.5 kg 117.5 kg Intake: IV 20 20 10 Invasive Line 5 20 20 10 Oral 0 0 Output: Urine 1350 1250 Uretheral (Shelley) 300 Other: Voiding Method Indwelling Catheter Indwelling Catheter Indwelling Catheter - Labs CBC & Chem 7: 08/12/20 09:19 08/12/20 09:19 Labs: Abnormal Lab Results - Last 24 Hours (Table) 08/11/20 08/11/20 08/12/20 Range/Units 16:49 20:23 06:50 RBC (4.30-5.90) m/uL Hgb (13.0-17.5) gm/dL Hct (39.0-53.0) % Lymphocytes # (1.0-4.8) k/uL Potassium (3.5-5.1) mmol/L Chloride (98-107) mmol/L Carbon Dioxide (22-30) mmol/L BUN (9-20) mg/dL Glucose (74-99) mg/dL POC Glucose (mg/dL) 181 H 148 H 183 H (75-99) mg/dL Total Bilirubin (0.2-1.3) mg/dL Total Protein (6.3-8.2) g/dL Albumin (3.5-5.0) g/dL 08/12/20 08/12/20 08/12/20 Range/Units 09:19 09:19 11:36 RBC 3.09 L (4.30-5.90) m/uL Hgb 10.1 L (13.0-17.5) gm/dL Hct 29.5 L (39.0-53.0) % Lymphocytes # 0.3 L (1.0-4.8) k/uL Potassium 2.8 L (3.5-5.1) mmol/L Chloride 112 H (98-107) mmol/L Carbon Dioxide 21 L (22-30) mmol/L BUN 28 H (9-20) mg/dL Glucose 177 H (74-99) mg/dL POC Glucose (mg/dL) 206 H (75-99) mg/dL Total Bilirubin 1.4 H (0.2-1.3) mg/dL Total Protein 5.2 L (6.3-8.2) g/dL Albumin 2.5 L (3.5-5.0) g/dL Microbiology - Last 24 Hours (Table) 08/11/20 07:45 Blood Culture - Preliminary Blood No Growth after 24 hours 08/09/20 05:22 Blood Culture - Preliminary Blood No Growth after 72 hours 08/10/20 05:43 Blood Culture Gram Stain - Preliminary Blood Blood Culture - Preliminary Staphylococcus aureus 08/07/20 17:45 Blood Culture - Preliminary Blood No Growth after 96 hours 08/10/20 05:43 Blood Culture - Final Blood Assessment and Plan Plan: Assessment: 1. Acute kidney injury mostly prerenal secondary to infection and lisinopril. Renal function improving. Creatinine 1.12 today. 2. Left knee septic arthritis with staph aureus bacteremia. On antibiotics. 3. Hypokalemia from poor intake. 4. Benign hypertension. Blood pressure on the higher side. 5. Difficulty swallowing. Currently nothing by mouth. 6. Metabolic acidosis secondary to acute kidney injury and IVFs. Better. 7. Diabetes mellitus. Plan: Decrease rate of normal saline to 50 mL an hour. Replace potassium. Avoid nephrotoxins. Continue to monitor renal function and urine output.
[2020-08-12] MEDS ORDERED: hydrALAZINE HCL 20 MG/ML 1 ML VIAL IVP PRN (12:07)
--- NOTE | 2020-08-12 14:29 | PN ---
PROGRESS NOTE DATE OF SERVICE: 08/12/2020 REASON FOR FOLLOWUP: MSSA bacteremia secondary to left knee septic arthritis. INTERVAL HISTORY: The patient is currently afebrile. The patient seemed to be more awake, alert. The patient denies having any headache. No chest pain, shortness of breath or cough. No abdominal pain. No pain to the left knee. PHYSICAL EXAMINATION: Blood pressure 172/78 with a pulse of 111. Temp 98.6. He is 95% on room air. General description is an elderly male up in the chair in no distress. Respiratory system: Unlabored breathing, clear to auscultation anteriorly. Heart S1, S2. Regular rate and rhythm. ABDOMEN: Soft, no tenderness. LABS: Hemoglobin is 10.3, white count 6.3, BUN of 28, creatinine 1.12. DIAGNOSTIC IMPRESSION AND PLAN: Patient with MSSA bacteremia, source likely left knee septic arthritis, status post external possible antibiotic spacer placement. Patient on nafcillin. Blood culture repeat did document clearance of bacteremia. Blood culture negative so far from yesterday. We will request LISA in view of the persistent bacteremia to be sure no evidence of any endovascular involvement. Continue supportive care. MMODL / IJN: [id number] /
[2020-08-12] MEDS ORDERED: fentaNYL (PF) 50 MCG/ML 2 ML AMP ONE (14:46)
[2020-08-12] MEDS ORDERED: MIDAZOLAM 2 MG/2 ML VIAL ONE (14:46)
[2020-08-12] MEDS ORDERED: PROPOFOL 10 MG/ML 20 ML VIAL IV ONE (14:46)
[2020-08-12] MEDS ORDERED: LIDOCAINE 1% INJ 10MG/ML (20 ML MDV) ONE (14:46)
[2020-08-12] MEDS ORDERED: IV FLUID CONTINUATION 1,000 ML IV ONE (14:54)
--- NOTE | 2020-08-12 14:56 | P.PN ---
Subjective Progress Note Date: 08/12/20 6 is a 75-year-old gentleman with history of cardiomyopathy, ischemic or disease with a recent stent placement who was admitted to the hospital with septic knee and positive blood cultures. Patient was treated with antibiotics. Finally his blood cultures came back negative. Patient is still weak and frail. Patient was seen by ID specialist. He recommends a LISA examination. In view of positive blood cultures. Transthoracic echo did not reveal any evidence of vegetations. Clinically patient doesn't have any systolic murmur. I will discuss with Dr. Valencia about possible LISA. Meanwhile, continue current medical therapy Objective - Vital Signs Vital signs: Vital Signs Temp 98.6 F 08/12/20 08:30 Pulse 99 08/12/20 11:17 Resp 18 08/12/20 08:30 BP 172/78 08/12/20 08:30 Pulse Ox 95 08/12/20 08:30 Intake & Output 08/11/20 08/12/20 08/12/20 18:59 06:59 18:59 Intake Total 20 20 10 Output Total 1350 1250 Balance -1330 -1230 10 Weight 117.5 kg 117.5 kg Intake: IV 20 20 10 Invasive Line 5 20 20 10 Oral 0 0 Output: Urine 1350 1250 Uretheral (Shelley) 300 Other: Voiding Method Indwelling Catheter Indwelling Catheter Indwelling Catheter - Exam GENERAL EXAM: Patient is alert and appears to frail and weak HEENT: Normocephalic. NECK: No masses, no nuchal rigidity. CHEST: No chest wall deformity. LUNGS: Equal air entry with no crackles or wheeze. HEART: S1 and S2 normal with no audible mumurs or gallops. Regular rhythm, femorals equal on both sides.. ABDOMEN: No hepatosplenomegaly, normal bowel sounds, no guarding or rigidity. SKIN: No rashes CENTRAL NERVOUS SYSTEM: No focal deficits. EXTREMITIES: No cyanosis, clubbing or edema. - Labs CBC & Chem 7: 08/12/20 09:19 08/12/20 09:19 Labs: Abnormal Lab Results - Last 24 Hours (Table) 08/11/20 08/11/20 08/12/20 Range/Units 16:49 20:23 06:50 RBC (4.30-5.90) m/uL Hgb (13.0-17.5) gm/dL Hct (39.0-53.0) % Lymphocytes # (1.0-4.8) k/uL Potassium (3.5-5.1) mmol/L Chloride (98-107) mmol/L Carbon Dioxide (22-30) mmol/L BUN (9-20) mg/dL Glucose (74-99) mg/dL POC Glucose (mg/dL) 181 H 148 H 183 H (75-99) mg/dL Total Bilirubin (0.2-1.3) mg/dL Total Protein (6.3-8.2) g/dL Albumin (3.5-5.0) g/dL 08/12/20 08/12/20 08/12/20 Range/Units 09:19 09:19 11:36 RBC 3.09 L (4.30-5.90) m/uL Hgb 10.1 L (13.0-17.5) gm/dL Hct 29.5 L (39.0-53.0) % Lymphocytes # 0.3 L (1.0-4.8) k/uL Potassium 2.8 L (3.5-5.1) mmol/L Chloride 112 H (98-107) mmol/L Carbon Dioxide 21 L (22-30) mmol/L BUN 28 H (9-20) mg/dL Glucose 177 H (74-99) mg/dL POC Glucose (mg/dL) 206 H (75-99) mg/dL Total Bilirubin 1.4 H (0.2-1.3) mg/dL Total Protein 5.2 L (6.3-8.2) g/dL Albumin 2.5 L (3.5-5.0) g/dL Microbiology - Last 24 Hours (Table) 08/11/20 07:45 Blood Culture - Preliminary Blood No Growth after 24 hours 08/09/20 05:22 Blood Culture - Preliminary Blood No Growth after 72 hours 08/10/20 05:43 Blood Culture Gram Stain - Preliminary Blood Blood Culture - Preliminary Staphylococcus aureus 08/07/20 17:45 Blood Culture - Preliminary Blood No Growth after 96 hours Assessment and Plan (1) CAD (coronary artery disease) Current Visit: Yes Status: Acute Code(s): I25.10 - ATHSCL HEART DISEASE OF [place] CORONARY ARTERY W/O ANG PCTRS SNOMED Code(s): 87371975 (2) Positive blood cultures Current Visit: Yes Status: Acute Code(s): R78.81 - BACTEREMIA SNOMED Code(s): 997692366 (3) Septic arthritis Current Visit: Yes Status: Acute Code(s): M00.9 - PYOGENIC ARTHRITIS, UNSPECIFIED SNOMED Code(s): 872601520 Plan: Blood culture finally negative. ID requests LISA examination. Will discuss with the Dr. Valencia regarding the procedure
--- NOTE | 2020-08-12 15:06 | P.PCN ---
Date of Procedure: 08/12/20 Procedure(s) Performed: Preoperative Dx: Epigastric pain, ileus Postoperative Dx: Duodenitis with erosions, gastritis with erosions, small hiatal hernia Procedure: EGD with Bx Anesthesia: Sedation Endoscopist: Dr. Hartman Specimens: Duodenum, antrum Endoscopic Procedure: The patient was on the endoscopy table in the left decubitus position. The Olympus gastroscope was inserted into the oropharynx and passed under direct visualization to the region of the third portion of the duodenum. From that point the scope was slowly withdrawn inspecting all surfaces carefully. There was duodenitis present with multiple small erosions. There did not appear to be any narrowing of the duodenum or evidence of s tricture. The pylorus itself was widely patent. The stomach was carefully inspected. The patient had evidence of gastritis with multiple erosions as well. Biopsies were taken of both the duodenum and the antrum. Retroflexion revealed a normal proximal stomach with the exception of a small sliding hiatal hernia. The patient's esophagus was examined and appeared normal. The patient was then taken to the recovery room in stable condition per anesthesia guidelines. Recommendations: Resume liquid diet. Increase antiacids to twice a day Protonix.
[2020-08-12] MEDS: POTASSIUM CHLORIDE 10 MEQ in WATER FOR INJECTION 1 100ML.BAG IVPB SCH ×2 (16:30→17:30)
[2020-08-12] MEDS ORDERED: Potassium Replacement Protocol 1 EACH MISC MISCELLANE PRN (16:47)
[2020-08-12 17:16] LABS: Glucose,Whole Blood 157 mg/dL (75-99)
[2020-08-12 21:22] LABS: Glucose,Whole Blood 156 mg/dL (75-99)
[2020-08-12] MEDS: PANTOPRAZOLE 40 MG/10 ML VIAL IVP SCH (21:37)
[2020-08-12] MEDS: INSULIN DETEMIR (LEVEMIR) 100 UNIT/ML SYR SQ SCH (21:37)
[2020-08-13] MEDS: METOPROLOL TARTRATE 5 MG/5 ML VIAL IVP SCH ×5 (00:25→23:59)
[2020-08-13] MEDS: NAFCILLIN 2 GM in DEXTROSE 5% IN WATER 100 ML IVPB SCH ×14 (00:26→23:58)
--- NOTE | 2020-08-13 01:34 | P.PN ---
Subjective Progress Note Date: 08/12/20 Patient was seen for a follow-up. Patient was sitting in the recliner, much more alert and awake. Patient denies headache. States the neck pain is "mild". However complains of severe low back pain. Patient now on Robaxin 750 mg. Objective - Vital Signs Vital signs: Vital Signs Temp 99.0 F 08/12/20 16:30 Pulse 105 H 08/12/20 16:30 Resp 18 08/12/20 16:30 BP 154/74 08/12/20 16:30 Pulse Ox 98 08/12/20 16:30 Intake & Output 08/12/20 08/12/20 08/13/20 06:59 18:59 06:59 Intake Total 20 210 1320 Output Total 1250 900 425 Balance -1230 -690 895 Weight 117.5 kg 117.5 kg Intake: IV 20 210 1320 Invasive Line 5 20 10 Nafcillin 2 gm In 200 Dextrose 5% in Water 100 ml @ 50 mls/hr IVPB Q4HR [facility] Rx#:[id number] Potassium Chloride 10 meq 200 In Water For Injection 1 100ml.bag @ 100 mls/hr IVPB Q1H [facility] Rx#: [id number] Potassium Chloride 20 meq 200 In Water For Injection 1 100ml.bag @ 50 mls/hr IVPB Q2H [facility] Rx#: [id number] Sodium Chloride 0.9% 1, 720 000 ml @ 50 mls/hr IV . Q20H [facility] Rx#:[id number] Oral 0 Output: Urine 1250 900 425 Uretheral (Shelley) 300 Other: Voiding Method Indwelling Catheter Indwelling Catheter - Exam Patient is sitting in the recliner. Patient is much more alert and awake. His neck is much more supple. Patient able to move his neck slightly past the midline to the left. He can flex and extend neck better. Speech and language functions are normal. Patient still has very slow mentation. Patient knows that he is in [facility]. Patient thinks it is year 2000. On muscle strength testing patient's shoulder is 5/4 (chronic issue with the shoulder). Biceps and triceps are normal. Ankle dorsiflexion 5 on the right, not checked on the left. - Labs CBC & Chem 7: 08/12/20 09:19 08/12/20 22:22 Labs: Abnormal Lab Results - Last 24 Hours (Table) 08/12/20 08/12/20 08/12/20 Range/Units 06:50 09:19 09:19 RBC 3.09 L (4.30-5.90) m/uL Hgb 10.1 L (13.0-17.5) gm/dL Hct 29.5 L (39.0-53.0) % Lymphocytes # 0.3 L (1.0-4.8) k/uL Potassium 2.8 L (3.5-5.1) mmol/L Chloride 112 H (98-107) mmol/L Carbon Dioxide 21 L (22-30) mmol/L BUN 28 H (9-20) mg/dL Glucose 177 H (74-99) mg/dL POC Glucose (mg/dL) 183 H (75-99) mg/dL Total Bilirubin 1.4 H (0.2-1.3) mg/dL Total Protein 5.2 L (6.3-8.2) g/dL Albumin 2.5 L (3.5-5.0) g/dL 08/12/20 08/12/20 08/12/20 Range/Units 11:36 17:10 21:21 RBC (4.30-5.90) m/uL Hgb (13.0-17.5) gm/dL Hct (39.0-53.0) % Lymphocytes # (1.0-4.8) k/uL Potassium (3.5-5.1) mmol/L Chloride (98-107) mmol/L Carbon Dioxide (22-30) mmol/L BUN (9-20) mg/dL Glucose (74-99) mg/dL POC Glucose (mg/dL) 206 H 157 H 156 H (75-99) mg/dL Total Bilirubin (0.2-1.3) mg/dL Total Protein (6.3-8.2) g/dL Albumin (3.5-5.0) g/dL Microbiology - Last 24 Hours (Table) 08/10/20 05:43 Blood Culture Gram Stain - Final Blood Blood Culture - Final Staphylococcus aureus 08/11/20 07:45 Blood Culture Gram Stain - Preliminary Blood 08/07/20 17:45 Blood Culture - Preliminary Blood No Growth after 120 hours 08/11/20 07:45 Blood Culture - Final Blood 08/09/20 05:22 Blood Culture - Preliminary Blood No Growth after 72 hours Assessment and Plan Assessment: * Altered mental status with fluctuating mental status, likely delirium, possible toxic metabolic encephalopathy. * Neck stiffness unclear cause. MRI of the cervical spine showed no definitive epidural collection. Meningitis less likely, as patient has no headache. CT of the head, neck and chest negative. * Septicemia with staph aureus * Septic arthritis left knee. * Elevated cardiac enzymes, with recent inferior STEMI * Ischemic cardiomyopathy * Partial gastric outlet obstruction, status post EGD * Acute renal failure, almost resolved. * Elevated cardiac enzymes * Diabetes Plan: * Discussed case with ID. Lumbar puncture was ordered due to severe neck stiffness and altered mental status. However when I saw the patient, he appears slightly improved, and neck was more supple today. Patient is on Robaxin. Patient denies headache. He is however still confused and disoriented. For lumbar puncture, patient has to stop Plavix for 5 days. With recent acute ND, the risks of holding off on Plavix appears quite high. Per ID, patient is already on meningeal doses of nafcillin. Therefore we held lumbar puncture for now. * Patient has septicemia with staph aureus. Patient undergoing LISA to rule out embolic source. * Patient has failed Valium, Flexeril and now started on Robaxin 750 mg every 8 hours as needed. * Computed tomography scan of the neck chest without contrast are negative. No abscess or mass. * Patient's renal functions are almost normalized, with BUN 28, creatinine 1.12. ESR 102. * Patient is on aspirin 81 mg and Plavix 75 mg for coronary artery disease and previous cardiac stents. * Other medical management as per IM, and other specialties. * Dr. Trevor Louis Will resume neurology service from morning.
[2020-08-13] MEDS: INSULIN ASPART (NovoLOG) 100 UNIT/ML VIAL SQ SCH ×4 (06:44→20:03)
[2020-08-13] MEDS: SODIUM CHLORIDE 0.9% 1,000 ML IV SCH (08:00)
[2020-08-13] MEDS: IPRATROPIUM-ALBUTEROL 3 ML NEB INHALATION SCH ×4 (08:03→19:57)
[2020-08-13] MEDS ORDERED: FUROSEMIDE 10 MG/ML 4 ML VIAL IV STA (08:04)
[2020-08-13 08:18] LABS: Glucose,Whole Blood 141 mg/dL (75-99)
[2020-08-13] MEDS: ENOXAPARIN 40 MG/0.4 ML SYRINGE SQ SCH (09:16)
[2020-08-13] MEDS: PANTOPRAZOLE 40 MG/10 ML VIAL IVP SCH ×2 (09:17→20:03)
[2020-08-13] MEDS: CLOPIDOGREL 75 MG TAB PO SCH (09:24)
[2020-08-13] MEDS: ATORVASTATIN 80 MG TAB PO SCH (09:24)
[2020-08-13] MEDS: ASPIRIN 81 MG PO SCH (09:25)
--- NOTE | 2020-08-13 09:28 | P.PN ---
Subjective Progress Note Date: 08/13/20 This is a 75-year-old male who is admitted with septicemia and blood cultures positive for staph aureus. Patient is status post incision and drainage of the left knee for septic arthritis. This is postoperative day #7. Patient is seen and evaluated at bedside today. Patient is alert, but somewhat confused this morning. Patient states that he has occasional discomfort in the left knee when he stands to transfer to a chair. Otherwise, patient states that he is doing well regarding the left knee. Patient is still complaining of neck pain. Patient is is NPO for possible LISA today. Patient denies any new complaints today. Objective - Vital Signs Vital signs: Vital Signs Temp 98.8 F 08/13/20 04:00 Pulse 91 08/13/20 04:00 Resp 20 08/13/20 04:00 BP 157/67 08/13/20 04:00 Pulse Ox 96 08/13/20 04:00 Intake & Output 08/12/20 08/13/20 08/13/20 18:59 06:59 18:59 Intake Total 210 1320 Output Total 900 1125 Balance -690 195 Weight 117.5 kg 120 kg Intake: IV 210 1320 Invasive Line 5 10 Nafcillin 2 gm In 200 Dextrose 5% in Water 100 ml @ 50 mls/hr IVPB Q4HR [facility] Rx#:[id number] Potassium Chloride 10 meq 200 In Water For Injection 1 100ml.bag @ 100 mls/hr IVPB Q1H [facility] Rx#: [id number] Potassium Chloride 20 meq 200 In Water For Injection 1 100ml.bag @ 50 mls/hr IVPB Q2H [facility] Rx#: [id number] Sodium Chloride 0.9% 1, 720 000 ml @ 50 mls/hr IV . Q20H [facility]A Rx#:[id number] Oral 0 Output: Urine 900 1125 Other: Voiding Method Indwelling Catheter Indwelling Catheter - Exam Vital signs are stable. Patient is in no acute distress. Patient is alert. Calf is soft and nontender to palpation. Dressing is clean, dry, and intact. Dressing is removed and incision is clean, dry and intact. Surgical clips are intact. There is no erythema or ecchymosis. Patient has full foot and ankle motion without pain or difficulty. Neurovascular status and circulatory status are intact. - Labs CBC & Chem 7: 08/12/20 09:19 08/12/20 22:22 Labs: Abnormal Lab Results - Last 24 Hours (Table) 08/12/20 08/12/20 08/12/20 Range/Units 09:19 09:19 11:36 RBC 3.09 L (4.30-5.90) m/uL Hgb 10.1 L (13.0-17.5) gm/dL Hct 29.5 L (39.0-53.0) % Lymphocytes # 0.3 L (1.0-4.8) k/uL Potassium 2.8 L (3.5-5.1) mmol/L Chloride 112 H (98-107) mmol/L Carbon Dioxide 21 L (22-30) mmol/L BUN 28 H (9-20) mg/dL Glucose 177 H (74-99) mg/dL POC Glucose (mg/dL) 206 H (75-99) mg/dL Total Bilirubin 1.4 H (0.2-1.3) mg/dL Total Protein 5.2 L (6.3-8.2) g/dL Albumin 2.5 L (3.5-5.0) g/dL 08/12/20 08/12/20 08/13/20 Range/Units 17:10 21:21 06:28 RBC (4.30-5.90) m/uL Hgb (13.0-17.5) gm/dL Hct (39.0-53.0) % Lymphocytes # (1.0-4.8) k/uL Potassium (3.5-5.1) mmol/L Chloride (98-107) mmol/L Carbon Dioxide (22-30) mmol/L BUN (9-20) mg/dL Glucose (74-99) mg/dL POC Glucose (mg/dL) 157 H 156 H 141 H (75-99) mg/dL Total Bilirubin (0.2-1.3) mg/dL Total Protein (6.3-8.2) g/dL Albumin (3.5-5.0) g/dL Microbiology - Last 24 Hours (Table) 08/11/20 07:45 Blood Culture Gram Stain - Preliminary Blood Blood Culture - Preliminary Presumptive Staph aureus 08/09/20 05:22 Blood Culture - Preliminary Blood No Growth after 96 hours 08/10/20 05:43 Blood Culture Gram Stain - Final Blood Blood Culture - Final Staphylococcus aureus 08/07/20 17:45 Blood Culture - Preliminary Blood No Growth after 120 hours 08/11/20 07:45 Blood Culture - Final Blood Assessment and Plan (1) Left knee pain Current Visit: Yes Status: Acute Code(s): M25.562 - PAIN IN LEFT KNEE S NOMED Code(s): 4325189248 (2) Infection of total left knee replacement Current Visit: Yes Status: Acute Code(s): T84.54XA - INFECT/INFLM REACTION DUE TO INTERNAL LEFT KNEE PROSTH, INIT SNOMED Code(s): 958964480 Plan: 1. Blood cultures are positive for staph aureus. 2. Continue daily dressing changes. New dressing is applied today. IV antibiotics per infectious disease. 3. Appreciate input from internal medicine, cardiology, neurology and infectious disease. 4. Will continue to follow the patient. Recommend follow-up in one week for staple removal.
[2020-08-13 10:35] LABS: Potassium 2.9 mmol/L (3.5-5.1)
[2020-08-13 10:37] LABS: Calcium 9.9 mg/dL (8.4-10.2); Magnesium 1.6 mg/dL (1.6-2.3)
[2020-08-13] MEDS ORDERED: POTASSIUM CHLORIDE ER 20 MEQ TAB.ER PO STA (10:58)
[2020-08-13] MEDS ORDERED: POTASSIUM CHLORIDE 20 MEQ in WATER FOR INJECTION 1 100ML.BAG IVPB SCH (11:00)
--- NOTE | 2020-08-13 11:01 | P.PN ---
Subjective Patient is seen in follow-up for acute kidney injury. Renal function stable. Hemodynamically stable. Nonoliguric. Received IV Lasix this morning. Vital signs are stable. General: The patient appeared well nourished and normally developed. HEENT: Head exam is unremarkable. Neck is without jugular venous distension. LUNGS: Breath sounds decreased. HEART: Rate and Rhythm are regular. ABDOMEN: Soft, nontender. EXTREMITITES: Trace edema. Objective - Vital Signs Vital signs: Vital Signs Temp 98.8 F 08/13/20 04:00 Pulse 91 08/13/20 04:00 Resp 20 08/13/20 04:00 BP 157/67 08/13/20 04:00 Pulse Ox 96 08/13/20 04:00 Intake & Output 08/12/20 08/13/20 08/13/20 18:59 06:59 18:59 Intake Total 210 1320 Output Total 900 1125 Balance -690 195 Weight 117.5 kg 120 kg Intake: IV 210 1320 Invasive Line 5 10 Nafcillin 2 gm In 200 Dextrose 5% in Water 100 ml @ 50 mls/hr IVPB Q4HR [facility] Rx#:[id number] Potassium Chloride 10 meq 200 In Water For Injection 1 100ml.bag @ 100 mls/hr IVPB Q1H [facility] Rx#: [id number] Potassium Chloride 20 meq 200 In Water For Injection 1 100ml.bag @ 50 mls/hr IVPB Q2H [facility] Rx#: [id number] Sodium Chloride 0.9% 1, 720 000 ml @ 50 mls/hr IV . Q20H [facility] Rx#:[id number] Oral 0 Output: Urine 900 1125 Other: Voiding Method Indwelling Catheter Indwelling Catheter - Labs CBC & Chem 7: 08/12/20 09:19 08/13/20 10:06 Labs: Abnormal Lab Results - Last 24 Hours (Table) 08/12/20 08/12/20 08/12/20 Range/Units 11:36 17:10 21:21 Potassium (3.5-5.1) mmol/L Chloride (98-107) mmol/L BUN (9-20) mg/dL Glucose (74-99) mg/dL POC Glucose (mg/dL) 206 H 157 H 156 H (75-99) mg/dL 08/13/20 08/13/20 Range/Units 06:28 10:06 Potassium 2.9 L (3.5-5.1) mmol/L Chloride 110 H (98-107) mmol/L BUN 22 H (9-20) mg/dL Glucose 142 H (74-99) mg/dL POC Glucose (mg/dL) 141 H (75-99) mg/dL Microbiology - Last 24 Hours (Table) 08/11/20 07:45 Blood Culture Gram Stain - Preliminary Blood Blood Culture - Preliminary Presumptive Staph aureus 08/09/20 05:22 Blood Culture - Preliminary Blood No Growth after 96 hours 08/10/20 05:43 Blood Culture Gram Stain - Final Blood Blood Culture - Final Staphylococcus aureus 08/07/20 17:45 Blood Culture - Preliminary Blood No Growth after 120 hours 08/11/20 07:45 Blood Culture - Final Blood Assessment and Plan Plan: Assessment: 1. Acute kidney injury mostly prerenal secondary to infection and lisinopril. Renal function improved. Creatinine 1.15 today. 2. Left knee septic arthritis with staph aureus bacteremia. On antibiotics. 3. Hypokalemia from poor intake and diuresis. 4. Benign hypertension. Stable. 5. Difficulty swallowing. Currently nothing by mouth. 6. Metabolic acidosis secondary to acute kidney injury and IVFs. Better. 7. Diabetes mellitus. Plan: Off IV fluids. Status post IV Lasix this morning. Replace potassium. Avoid nephrotoxins. Continue to monitor renal function and urine output. Replace magnesium as well
--- NOTE | 2020-08-13 11:22 | P.PN ---
<Glenna Melton - Last Filed: 08/13/20 11:11> Subjective Progress Note Date: 08/13/20 CHIEF COMPLAINT: Fever and knee pain HISTORY OF PRESENT ILLNESS: Surgical service is following in regards to patient's gastric distention. Patient is status post EGD with biopsy. Results showed duodenitis with erosions, gastritis with erosions and small hiatal hernia. Patient lying in bed comfortably. Denies any abdominal pain. He is tolerating clear liquid diet. Denies any nausea or vomiting. Denies any bowel movement. Afebrile. Potassium 2.9 creatinine 1.15 . Magnesium 1.6 potassium and magnesium being replaced by nephrology. Positive blood culture with MSSA and septic knee arthritis is the likely source. Followed by ID. PHYSICAL EXAM: VITAL SIGNS: Reviewed. GENERAL: Well-developed in no acute distress. HEENT: No sclera icterus. Extraocular movements grossly intact. Moist buccal mucosa. Head is atraumatic, normocephalic. ABDOMEN: Soft. Nontender nondistended NEUROLOGIC: Patient is sleepy. But is able to be awaken and answer questions ASSESSMENT: 1. Gastric distention: Repeat abdominal x-ray showing interval improvement to patient's gastric distention 2. Status post EGD with results showing duodenitis with erosions, gastritis with erosions and small hiatal hernia PLAN: -Continue clear liquid diet -Continue Protonix 40 mg IV twice a day -Continue supportive care Physician Development Editor note has been reviewed by physician. Signing provider agrees with the documented findings, assessment, and plan of care. Objective - Vital Signs Vital signs: Vital Signs Temp 98.8 F 08/13/20 04:00 Pulse 91 08/13/20 04:00 Resp 20 08/13/20 04:00 BP 157/67 08/13/20 04:00 Pulse Ox 96 08/13/20 04:00 Intake & Output 08/12/20 08/13/20 08/13/20 18:59 06:59 18:59 Intake Total 210 1320 Output Total 900 1125 Balance -690 195 Weight 117.5 kg 120 kg Intake: IV 210 1320 Invasive Line 5 10 Nafcillin 2 gm In 200 Dextrose 5% in Water 100 ml @ 50 mls/hr IVPB Q4HR [facility] Rx#:[id number] Potassium Chloride 10 meq 200 In Water For Injection 1 100ml.bag @ 100 mls/hr IVPB Q1H [facility] Rx#: [id number] Potassium Chloride 20 meq 200 In Water For Injection 1 100ml.bag @ 50 mls/hr IVPB Q2H [facility] Rx#: [id number] Sodium Chloride 0.9% 1, 720 000 ml @ 50 mls/hr IV . Q20H [facility] Rx#:[id number] Oral 0 Output: Urine 900 1125 Other: Voiding Method Indwelling Catheter Indwelling Catheter - Labs CBC & Chem 7: 08/12/20 09:19 08/13/20 10:06 Labs: Abnormal Lab Results - Last 24 Hours (Table) 08/12/20 08/12/20 08/12/20 Range/Units 11:36 17:10 21:21 Potassium (3.5-5.1) mmol/L Chloride (98-107) mmol/L BUN (9-20) mg/dL Glucose (74-99) mg/dL POC Glucose (mg/dL) 206 H 157 H 156 H (75-99) mg/dL 08/13/20 08/13/20 Range/Units 06:28 10:06 Potassium 2.9 L (3.5-5.1) mmol/L Chloride 110 H (98-107) mmol/L BUN 22 H (9-20) mg/dL Glucose 142 H (74-99) mg/dL POC Glucose (mg/dL) 141 H (75-99) mg/dL Microbiology - Last 24 Hours (Table) 08/11/20 07:45 Blood Culture Gram Stain - Preliminary Blood Blood Culture - Preliminary Presumptive Staph aureus 08/09/20 05:22 Blood Culture - Preliminary Blood No Growth after 96 hours 08/10/20 05:43 Blood Culture Gram Stain - Final Blood Blood Culture - Final Staphylococcus aureus 08/07/20 17:45 Blood Culture - Preliminary Blood No Growth after 120 hours 08/11/20 07:45 Blood Culture - Final Blood <Wisam Hartman - Last Filed: 08/13/20 15:42> Subjective As above. Patient denies pain. EGD with duodenal and gastric inflammation. C ontinue antiacids. Continue advancing diet. We'll sign off. Call if needed. Objective - Vital Signs Vital signs: Vital Signs Temp 98.8 F 08/13/20 04:00 Pulse 91 08/13/20 04:00 Resp 20 08/13/20 04:00 BP 157/67 08/13/20 04:00 Pulse Ox 96 08/13/20 04:00 Intake & Output 08/12/20 08/13/20 08/13/20 18:59 06:59 18:59 Intake Total 210 1320 240 Output Total 900 1125 Balance -690 195 240 Weight 117.5 kg 120 kg Intake: IV 210 1320 Invasive Line 5 10 Nafcillin 2 gm In 200 Dextrose 5% in Water 100 ml @ 50 mls/hr IVPB Q4HR [facility] Rx#:[id number] Potassium Chloride 10 meq 200 In Water For Injection 1 100ml.bag @ 100 mls/hr IVPB Q1H [facility] Rx#: [id number] Potassium Chloride 20 meq 200 In Water For Injection 1 100ml.bag @ 50 mls/hr IVPB Q2H [facility] Rx#: [id number] Sodium Chloride 0.9% 1, 720 000 ml @ 50 mls/hr IV . Q20H [facility] Rx#:[id number] Oral 0 240 Output: Urine 900 1125 Other: Voiding Method Indwelling Catheter Indwelling Catheter - Labs CBC & Chem 7: 08/12/20 09:19 08/13/20 10:06 Labs: Abnormal Lab Results - Last 24 Hours (Table) 08/12/20 08/12/20 08/13/20 Range/Units 17:10 21:21 06:28 Potassium (3.5-5.1) mmol/L Chloride (98-107) mmol/L BUN (9-20) mg/dL Glucose (74-99) mg/dL POC Glucose (mg/dL) 157 H 156 H 141 H (75-99) mg/dL 08/13/20 08/13/20 Range/Units 10:06 11:58 Potassium 2.9 L (3.5-5.1) mmol/L Chloride 110 H (98-107) mmol/L BUN 22 H (9-20) mg/dL Glucose 142 H (74-99) mg/dL POC Glucose (mg/dL) 142 H (75-99) mg/dL Microbiology - Last 24 Hours (Table) 08/11/20 07:45 Blood Culture Gram Stain - Preliminary Blood Blood Culture - Preliminary Presumptive Staph aureus 08/09/20 05:22 Blood Culture - Preliminary Blood No Growth after 96 hours 08/10/20 05:43 Blood Culture Gram Stain - Final Blood Blood Culture - Final Staphylococcus aureus 08/07/20 17:45 Blood Culture - Preliminary Blood No Growth after 120 hours 08/11/20 07:45 Blood Culture - Final Blood Assessment and Plan (1) Gastric distention Current Visit: Yes Status: Acute Code(s): K31.89 - OTHER DISEASES OF STOMACH AND DUODENUM SNOMED Code(s): 721738386
[2020-08-13 12:01] LABS: Glucose,Whole Blood 142 mg/dL (75-99)
[2020-08-13] MEDS: POTASSIUM CHLORIDE 10 MEQ in WATER FOR INJECTION 1 100ML.BAG IVPB SCH ×4 (13:02→19:54)
[2020-08-13] MEDS: MAGNESIUM SULFATE-D5W PMX 1 GM in DEXTROSE/WATER 1 100ML.BAG IVPB SCH ×2 (13:03→14:33)
--- NOTE | 2020-08-13 13:44 | PN ---
PROGRESS NOTE DATE OF SERVICE: 08/13/2020 REASON FOR FOLLOWUP: MSSA bacteremia with left knee septic arthritis. INTERVAL HISTORY: The patient is currently afebrile. The patient is breathing comfortably. Denies having any chest pain, shortness of breath or cough. No abdominal pain. No worsening pain in the left knee. The patient is scheduled for LISA today. PHYSICAL EXAMINATION: Blood pressure 157/67 with a pulse of 91, temperature 98.8. He is 96% on 2 L nasal cannula. General description is an elderly male lying in bed in no distress. RESPIRATORY SYSTEM: Unlabored breathing, clear to auscultation anteriorly. HEART: S1, S2. Regular rate and rhythm. ABDOMEN: Soft, no tenderness. LABS: BUN of 22 and creatinine 1.15. Blood cultures from the 25th came back positive as well. DIAGNOSTIC IMPRESSION AND PLAN: Patient with MSSA bacteremia, source likely with left knee septic arthritis status post antibiotic spacer placement. Now with persistent bacteremia concern for a new vascular source. Waiting for the LISA. The patient to continue with nafcillin. Daily blood cultures to document clearance of bacteremia before placing a PICC line. Continue with supportive care. MMODL / IJN: [id number] /
--- NOTE | 2020-08-13 14:02 | P.PN ---
Subjective Progress Note Date: 08/13/20 I'm seeing the patient for the first time and he was being evaluated by Dr. Damian for neurological workup. Please refer to Dr. Damian's note for detailed neurological history as well as workup. Per the patient's nurse and she stated that he is doing the better since his initial presentation. She stated that the he'll have the intermittent episode of confusion otherwise he is a better. Patient has a neck brace as well as has the left knee is wrapped. She denies of any headache, any nausea any vomiting. Denies of any numbness, any visual disturbance at. Objective - Vital Signs Vital signs: Vital Signs Temp 98.8 F 08/13/20 04:00 Pulse 91 08/13/20 04:00 Resp 20 08/13/20 04:00 BP 157/67 08/13/20 04:00 Pulse Ox 96 08/13/20 04:00 Intake & Output 08/12/20 08/13/20 08/13/20 18:59 06:59 18:59 Intake Total 210 1320 Output Total 900 1125 Balance -690 195 Weight 117.5 kg 120 kg Intake: IV 210 1320 Invasive Line 5 10 Nafcillin 2 gm In 200 Dextrose 5% in Water 100 ml @ 50 mls/hr IVPB Q4HR [facility] Rx#:[id number] Potassium Chloride 10 meq 200 In Water For Injection 1 100ml.bag @ 100 mls/hr IVPB Q1H [facility] Rx#: [id number] Potassium Chloride 20 meq 200 In Water For Injection 1 100ml.bag @ 50 mls/hr IVPB Q2H [facility] Rx#: [id number] Sodium Chloride 0.9% 1, 720 000 ml @ 50 mls/hr IV . Q20H [facility] Rx#:[id number] Oral 0 Output: Urine 900 1125 Other: Voiding Method Indwelling Catheter Indwelling Catheter - Exam GENERAL: The patient is lying in bed and is not in acute distress. HENT: Has neck brace. NEUROLOGICAL: Higher mental function: The patient is awake, alert, oriented to self and place. He stated the year was 2001 and month was February. Patient is able to name objects such as cup and pen. Patient is following commands. No aphasia and no neglect. Cranial nerves: The pupils are round, equal and reactive to light. Visual adames are full to confrontation throughout. Extraocular movement is intact no nystagmus is noted. Facial sensation is normal to touch throughout. The facial strength is normal throughout. Tongue is midline and moved [id number] without any difficulty. No dysarthria is noted. Shoulder shrug is normal bilaterally. Motor: Gait is deferred. The strength is 5 over 5 over bilateral upper extremities. While lower are 2-3/5 proximal while ankle plantarflexion are 4+ over the right while left is 3-4 and limited because of pain. His left knee is wrapped. Sensation: Sensation is normal to touch throughout. - Labs CBC & Chem 7: 08/12/20 09:19 08/13/20 10:06 Labs: Abnormal Lab Results - Last 24 Hours (Table) 08/12/20 08/12/20 08/13/20 Range/Units 17:10 21:21 06:28 Potassium (3.5-5.1) mmol/L Chloride (98-107) mmol/L BUN (9-20) mg/dL Glucose (74-99) mg/dL POC Glucose (mg/dL) 157 H 156 H 141 H (75-99) mg/dL 08/13/20 08/13/20 Range/Units 10:06 11:58 Potassium 2.9 L (3.5-5.1) mmol/L Chloride 110 H (98-107) mmol/L BUN 22 H (9-20) mg/dL Glucose 142 H (74-99) mg/dL POC Glucose (mg/dL) 142 H (75-99) mg/dL Microbiology - Last 24 Hours (Table) 08/11/20 07:45 Blood Culture Gram Stain - Preliminary Blood Blood Culture - Preliminary Presumptive Staph aureus 08/09/20 05:22 Blood Culture - Preliminary Blood No Growth after 96 hours 08/10/20 05:43 Blood Culture Gram Stain - Final Blood Blood Culture - Final Staphylococcus aureus 08/07/20 17:45 Blood Culture - Preliminary Blood No Growth after 120 hours 08/11/20 07:45 Blood Culture - Final Blood Assessment and Plan Assessment: * Altered mental status with fluctuating mental status, likely delirium. Also component possible toxic metabolic encephalopathy. * Neck stiffness unclear cause. MRI of the cervical spine showed no definitive epidural collection. Meningitis less likely, as patient has no headache. CT of the head, neck and chest negative. * Septicemia with staph aureus * Septic arthritis left knee. * Elevated cardiac enzymes, with recent inferior STEMI * Ischemic cardiomyopathy * Partial gastric outlet obstruction, status post EGD * Acute renal failure, almost resolved. * Elevated cardiac enzymes * Diabetes Plan: * From a neurological perspective I do not think lumbar puncture is warranted at this time. The patient is awake alert and following commands. Patient is a is on nafcillin and per ID team that is suffient for meningeal dose. * Patient has septicemia with staph aureus. Patient is undergoing LISA to rule out embolic source. * Patient has failed Valium, Flexeril and now started on Robaxin 750 mg every 8 hours as needed. * Computed tomography scan of the neck chest without contrast are negative. No abscess or mass. * Patient is on aspirin 81 mg and Plavix 75 mg for coronary artery disease and previous cardiac stents. * Other medical management as per IM, and other specialties. The plan is discussed with the patient and his nurse. Will follow-up with patient sporadically. Trevor Louis MD Neuro-Hospitalist Time with Patient: Less than 30
[2020-08-13] MEDS: HYDROmorphone 0.5 MG/0.5 ML SYRINGE IVP PRN (14:35)
--- NOTE | 2020-08-13 14:54 | P.PN ---
Subjective This is a 75-year-old male with a past medical history significant for hypertension, hyperlipidemia, diabetes mellitus, osteoarthritis, GERD, and cor onary artery disease. Patient follows in the office with Dr. Valencia. We have been asked to see the patient in consultation for cardiac clearance and LISA. Patient was recently hospitalized earlier this month secondary to inferior STEMI. He was taken to the [facility] but Dr. Vora was unsuccessful at advancing balloon or artherectomy after multiple attempts per his cath report. Echocardiogram completed at that time revealed ejection fraction of 25-30%. Patient was transferred to [facility] where he states he had two stents placed. He was placed on aspirin and plavix. Patient is status post incision and drainage of the left knee for septic arthritis. infectious disease, neurology is following patient 08/13/20: Patient seen and examined at bedside, no acute distress. Contniues to have neck pain. Positive blood cultures for staph aureus. Denies chest pain or chest discomfort, denies shortness of breath. Blood pressure 157/67, heart rate 91, afebrile, maintaining oxygen saturation 96% on 2 L nasal cannula. Laboratory data reviewed sodium 140, potassium 2.9, serum creatinine 1.15 GENERAL: Frail. no acute distress. NECK: Supple without JVD or thyromegaly. LUNGS: Breath sounds clear to auscultation bilaterally. Respiration equal and unlabored. No wheezes, rales or rhonchi. HEART: Regular rate and rhythm without murmurs, rubs or gallops. S1 and S2 heard. EXTREMITIES: Left knee is tender and swollen, slightly decreased ROM ASSESSMENT: Septic arthritis of left knee Acute kidney injury- improving Recent inferior STEMI Coronary artery disease with PCI to RCA Abnormal troponins, no evidence of ACS Ischemic cardiomyopathy, EF 25-30% Hypertension Hyperlipidemia Diabetes mellitus\ Hypokalemia- currently being replaced PLAN: Plan for LISA with Dr. Valencia tomorrow. NPO at midnight. I have discussed the risks, benefits and alternative therapies for the above- mentioned procedure and for both sedation/analgesia as well as necessary blood product administration, if indicated, as they pertain to this patient. The patient has indicated understanding and acceptance of the risks and procedures discussed. Questions have been answered appropriately and he is agreeable to move forward with the above-stated procedure. Objective - Vital Signs Vital signs: Vital Signs Temp 98.8 F 08/13/20 04:00 Pulse 91 04/27/21 04:00 Resp 20 08/13/20 04:00 BP 157/67 08/13/20 04:00 Pulse Ox 96 08/13/20 04:00 Intake & Output 08/12/20 08/13/20 08/13/20 18:59 06:59 18:59 Intake Total 210 1320 240 Output Total 900 1125 Balance -690 195 240 Weight 117.5 kg 120 kg Intake: IV 210 1320 Invasive Line 5 10 Nafcillin 2 gm In 200 Dextrose 5% in Water 100 ml @ 50 mls/hr IVPB Q4HR [facility] Rx#:[id number] Potassium Chloride 10 meq 200 In Water For Injection 1 100ml.bag @ 100 mls/hr IVPB Q1H [facility] Rx#: [id number] Potassium Chloride 20 meq 200 In Water For Injection 1 100ml.bag @ 50 mls/hr IVPB Q2H [facility] Rx#: [id number] Sodium Chloride 0.9% 1, 720 000 ml @ 50 mls/hr IV . Q20H [facility] Rx#:[id number] Oral 0 240 Output: Urine 900 1125 Other: Voiding Method Indwelling Catheter Indwelling Catheter - Labs CBC & Chem 7: 08/12/20 09:19 08/13/20 10:06 Labs: Abnormal Lab Results - Last 24 Hours (Table) 08/12/20 08/12/20 08/13/20 Range/Units 17:10 21:21 06:28 Potassium (3.5-5.1) mmol/L Chloride (98-107) mmol/L BUN (9-20) mg/dL Glucose (74-99) mg/dL POC Glucose (mg/dL) 157 H 156 H 141 H (75-99) mg/dL 08/13/20 08/13/20 Range/Units 10:06 11:58 Potassium 2.9 L (3.5-5.1) mmol/L Chloride 110 H (98-107) mmol/L BUN 22 H (9-20) mg/dL Glucose 142 H (74-99) mg/dL POC Glucose (mg/dL) 142 H (75-99) mg/dL Microbiology - Last 24 Hours (Table) 08/11/20 07:45 Blood Culture Gram Stain - Preliminary Blood Blood Culture - Preliminary Presumptive Staph aureus 08/09/20 05:22 Blood Culture - Preliminary Blood No Growth after 96 hours 08/10/20 05:43 Blood Culture Gram Stain - Final Blood Blood Culture - Final Staphylococcus aureus 08/07/20 17:45 Blood Culture - Preliminary Blood No Growth after 120 hours 08/11/20 07:45 Blood Culture - Final Blood
[2020-08-13 16:53] LABS: Glucose,Whole Blood 347 mg/dL (75-99)
--- NOTE | 2020-08-13 18:20 | P.PN ---
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 as well as radio frequency ablation, prostate cancer status post radiation therapy, patient took himself off the Plavix due to significant bruising and bleeding 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 and he was taken a baby aspirin alone, patient presented to the emergency department at [facility] on 07/28/2020 with what appears to be an inferior wall ST elevation myocardial infarction patient was taken to the carpenter/labor and an attempted angioplasty of a computed occluded RCA had failed and the patient was transferred to [facility] for complex angioplasty of the occluded RCA, apparently patient did have 2 stents placement in the RCA and he was discharged from [facility] and patient has been getting more at all with poor appetite and his having some issues with his left knee not able to walk on the knee associated with knee buckling and locking patient had lost his appetite, he ended up coming to the emergency department at [facility] today after his daughter contacted by staff and they directed her to go to the emergency department for evaluation of possible septic knee, patient was seen and evaluated in the ER he had temperature and his white count were normal, her d-dimer was elevated his troponin was slightly elevated as well, patient was started on IV antibiotic in the form of vancomycin as well as Zosyn, blood cultures will be obtained, aspiration of the left knee showed cloudy fluid the result of which still pending at the time of dictation orthopedic surgery consultation was obtained from Dr. Choi, patient will be admitted to hospital for further evaluation, his platelet count were down to 62,000 and his lactic acid was elevated suggestive of sepsis. 08/06: Patient is seen today in follow-up. COVID-[address] angios the chest showed no large central pulmonary emboli. Motion artifact of the bilateral lungs without focal airspace opacities. Fatty liver. Venous ultrasound was negative for DVT of the left lower extremity. Patient's home medication list needs to be updated. Will add and Lantus 18 units at bedtime, Plavix 75 mg daily, Januvia. Patient's nurse was updated that the patient's medication list needs to be confirmed. He has been seen by Dr. Choi and plan for I&D of the left knee today. Patient is currently on vancomycin IV and Zosyn. Patient has been afebrile, heart rate 104, respiratory rate 26, blood pressure 125/65, pulse ox 96% on room air. Repeat lactic acid is 8.3. Repeat troponin 3.790. WBC 7.7, hemoglobin 10.6. Sodium 128, potassium 3.5, chloride 98, CO2 18, BUN 25 and creatinine 1.62. Blood sugar 317. Calcium 7.6. Magnesium 1.8. Total bilirubin 3.1, AST 85, ALT 55, alkaline phosphatase 37. Fluid studies reveal RBC 3600, nucleated cells 62,000, polynuclear WBCs 85, and mononuclear WBCs 15, glucose 104, total protein 3330. Crystals pending. Consult also in place with cardiology and Dr. Strickland. 08/07: Has been afebrile, heart rate 103, blood pressure 116/61, pulse ox 96% on 2 L nasal cannula. Repeat troponins were 4.390 and 5.6. Blood sugars are running between 178 and 222. Blood culture is presumptive staph aureus on 2 specimens and fluid culture from the knee is also presumptive staph aureus. Repeat blood culture will be ordered today. Fluid analysis showed no crystals. Patient has been seen by cardiology and cleared for surgery. Patient subsequently underwent incision and drainage of the left total knee. The patient has also been followed by Dr. Chacon 8 and covered with antibiotics on Kefzol 2 g IV piggyback every 8 hours. Repeat blood work reveals WBC of 8.4, hemoglobin 9.8, platelet count 75. Sodium 131, potassium 3.9, chloride 99, CO2 19, BUN 43 and creatinine 3.02. Blood sugars are running between 178 and 222. Total bilirubin 1.7, AST 152, ALT 59. Troponin is 7.420. Radiology continues to follow. Diovan will be discontinued and consult placed with nephrology. 08/08: Patient is feeling more sick today with increased abdominal distention and increased hiccups, he is having very poor appetite is not able to tolerate his diet, he is requiring oxygen, chest x-ray and abdominal x-ray showed a gastric outlet obstruction, NG tube was placed and surgical consultation was obtained, continue IV fluid, patient will be seen in consultation by ICU for possible transfer to the intensive care unit due to his multiple medical issues. 08/09: Patient is laying down in bed he is feeling a bit better today he continues to have his NG tube in place, his stomach is less distended, less and she output, patient was started on heparin drip, he would be started on aspirin 300 mg per rectum, since is nothing by mouth we will start the patient on Lopressor 2.5 mg IV push every 6 hours around the clock hold for systolic blood pressure less than 100 or heart rate less than 55, patient has been followed by infectious disease, cardiology, pulmonary, as well as general surgery, we will maintain the patient on current treatment plan, we'll continue to follow very closely. 08/10: Patient is laying down but he continues to have significant pain in the cervical spine as well as lumbar spine is not able to move around much, he continues to have a lot of muscle spasm, no fever or chills, he was switched to nafcillin every 4 hours due to the fact that he has Staphylococcus aureus, his Drano out of the left knee is not having much drainage hopefully would be pulled today, patient's pain is not controlled very well, his NG tube was removed, his nothing per mouth, continue with heparin drip, continue with aspirin per rectum, he has no chest pain or shortness breath at this time he has no abdominal pain, he has no nausea or vomiting, we will start the patient on fentanyl patch 12 MCG once every 72 hours, monitor the patient very closely, continue with physical therapy evaluation. 08/11: Patient is sitting up in a recliner chair his in a lot of pain continue to have a significant neck spasm, he did receive Flexeril without any benefit, we will start the patient on Robaxin 750 mg orally 3 times every day continue fentanyl patch, continue with current pain management, there is no evidence of any discitis at this point in time continue IV antibiotic in the form of nafcillin, patient is scheduled to go for EGD tomorrow morning. Patient is nothing per mouth at this point except medication. 08/12: Patient is sitting up in bed, continues to be somewhat confused, he had no chest pain or shortness breath, he has no abdominal pain, he continues to be somewhat distended, his nothing per mouth so far his scheduled for EGD today, peng berrios will likely require subacute rehabilitation, he continues to have increased swelling in both lower extremities as well as scrotum, blood cultures was repeated still pending at the time of dictation we have to wait until the negative blood culture before he has a PICC line placement. REVIEW OF SYSTEMS: Constitutional: Denies fever, denies chills, no night sweats, positive for fatigue , positive for lethargy and sleeping and weight loss. HEENT: Positive for headache. No blurred vision or double vision, no loss of vision. No loss of Hearing, no ringing in the ears, no dizziness. No nasal drainage or congestion. No epistaxis. No sore throat. Respiratory: No shortness of breath, no cough, no sputum production. No wheezing. Reports dyspnea with activity. Cardiovascular: No chest pain, no lower extremity edema. No palpitations. No paroxysmal nocturnal dyspnea. No orthopnea. No lightheadedness or dizziness. No syncopal episodes. Gastrointestinal: abdom positive forinal pain. No nausea, vomiting. No diarrhea. No constipation. No bloody or tarry stools positive for passing gas. Genitourinary: Shelley catheter in place for urinary retention. Musculoskeletal: Positive for myalgias. positive for muscle weakness, Positive for gait dysfunction, no frequent falls, positive for left knee pain, locking, positive for low back pain, positive for severe neck pain with spasm. Integumentary: No wounds, no lesions. No rash or pruritus. Positive for bruising. No change in hair or nails. Neurologic: No aphasia. No facial droop. No change in mentation. No head injury. No headache. No paralysis, positive for paresthesia in the left upper extremity. Psychiatric: No depression. No anxiety. No mood swings. Endocrine: hyperglycemia . PHYSICAL EXAMINATION: General: This is 75-year-old male who appears to be moderately ill does not appear to be in acute respiratory distress. HEENT: Head is atraumatic, normocephalic, pupils were equal round reactive to light and recommendation, extraocular muscle movement were intact, sclera nonicteric, conjunctivae were pale, mucous membranes of the mouth are somewhat dry, Neck: Spastic was severe limitation in range of motion, no JVP, normal carotid upstroke bilaterally, no lymphadenopathy. Chest: Decreased breath sounds at the bases, few rhonchi, no extremity wheezes, no chest wall tenderness, no intercostal retractions, decreased tactile fremitus at the lower two thirds of the left lung field. Heart: First heart sound is normal, second heart sound is normal there is systolic ejection murmur 2/6 left sternal border. Abdomen: Soft, , mild tenderness to the epigastric area distended, positive bowel sounds, no hepatosplenomegaly Extremities: There is mild edema no calf tenderness DP + 1 bilaterally, left knee mildly tender to palpation with slightly swollen, drain was removed. Neurologic examination: Patient is awake alert and oriented X3, cranial nerves II-12 appear grossly intact, muscle power were 3 out of 5 in upper extremities and 3 out of 5 in bilateral lower extremities. ASSESSMENT AND PLAN: 1. Septic arthritis of the left knee. Initial blood culture and fluid culture positive for staph aureus. Repeat blood culture ordered. Continue IV antibiotic in the form of nafcillin 2 g IV piggyback every 4 hours, or so and ID are following. 2. Lactic acidosis due to sepsis. Resolved. decrease IV fluid to KVO. 3. Thrombocytopenia area and likely related to sepsis . Resolved. 4. Recent left heart catheterization with PCI of the RCA on 07/30/2020 Continue patient on aspirin 300 mg per rectum, Lopressor 2.5 mg IV push every 6 hours, and heparin drip. 5. Elevated troponin possibly due to prior intervention possibly non-ST elevation [place] . Cardiology is following, patient did receive a loading dose of Plavix 300 mg orally once followed by Plavix 75 mg once every day, continue aspirin 81 mg once every day, continue with the Lopressor 2.5 mg IV push every 6 hours, we will restart the patient on atorvastatin 80 mg at bedtime. 6. Recent inferior wall ST elevation [place]. Continue treatment as in paragraph #5. 7. Acute kidney injury secondary to acute tubular necrosis and hypotension with possible sepsis induced and contrast-induced nephropathy. Monitor the patient very closely continue IV fluid monitor cmp. 8. Abdominal distention with ileus ruled out for gastric outlet obstruction, NG tube was removed, patient is scheduled to go for EGD today. General surgery is following. 9. Hypertension and hypertensive cardiovascular disease. continue Lopressor 2.5 mg IV push every 6 hours. 10. Hyperlipidemia. continue atorvastatin 80 mg orally once every day. 11. Diabetes mellitus type 2. Start the patient on sliding scale insulin along with Lantus 22 units at bedtime, keep off Tradjenta. 11. History of prostate cancer status post rotation. Stable at this time. 12. 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 Spine surgery is following, patient underwent an MRI the cervical spine that showed significant disc disease without evidence of discitis, continue fentanyl patch 12 MCG once every 72 hours, continue Robaxin 750 mg orally 2 times every day . 13. DVT prophylaxis. Bilateral knee-high ADAIR hose, restart the patient on Lovenox 40 mg subcutaneously every 24 hours. 14. GI prophylaxis. Protonix 40 mg orally once every day. 15. Patient is full code. 16. Overall prognosis is very guarded. 17. Medical debility. Physical therapy evaluation 12. Hypokalemia. Patient will be given potassium chloride 40 mEq IV piggyback 1. DISCHARGE PLAN: Patient may require subacute versus inpatient rehab . Objective - Vital Signs Vital signs: Vital Signs Temp 98.2 F 08/12/20 03:17 Pulse 105 H 08/12/20 07:55 Resp 18 08/12/20 03:17 BP 162/73 08/12/20 03:17 Pulse Ox 95 08/12/20 07:43 Intake & Output 08/11/20 08/12/20 08/12/20 18:59 06:59 18:59 Intake Total 20 20 Output Total 1350 1250 Balance -1330 -1230 Weight 117.5 kg Intake: IV 20 20 Invasive Line 5 20 20 Oral 0 Output: Urine 1350 1250 Uretheral (Shelley) 300 Other: Voiding Method Indwelling Catheter Indwelling Catheter - Labs CBC & Chem 7: 08/12/20 09:19 08/13/20 10:06 Labs: Abnormal Lab Results - Last 24 Hours (Table) 08/11/20 08/11/20 08/11/20 Range/Units 07:45 07:45 11:39 ESR 102 H (0-15) mm/hr APTT 20.4 L (22.0-30.0) sec POC Glucose (mg/dL) 206 H (75-99) mg/dL 08/11/20 08/11/20 08/12/20 Range/Units 16:49 20:23 06:50 ESR (0-15) mm/hr APTT (22.0-30.0) sec POC Glucose (mg/dL) 181 H 148 H 183 H (75-99) mg/dL Microbiology - Last 24 Hours (Table) 08/09/20 05:22 Blood Culture - Preliminary Blood No Growth after 72 hours 08/10/20 05:43 Blood Culture Gram Stain - Preliminary Blood Blood Culture - Preliminary Staphylococcus aureus 08/07/20 17:45 Blood Culture - Preliminary Blood No Growth after 96 hours 08/10/20 05:43 Blood Culture - Final Blood
--- NOTE | 2020-08-13 18:24 | P.PN ---
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 as well as radio frequency ablation, prostate cancer status post radiation therapy, patient took himself off the Plavix due to significant bruising and bleeding against his field case manager recommendation and he was taken a baby aspirin alone, patient presented to the emergency department at [facility] on 07/28/2020 with what appears to be an inferior wall ST elevation myocardial infarction patient was taken to the slabber and an attempted angioplasty of a computed occluded RCA had failed and the patient was transferred to [facility] for complex angioplasty of the occluded RCA, apparently patient did have 2 stents placement in the RCA and he was discharged from [facility] and patient has been getting more at all with poor appetite and his having some issues with his left knee not able to walk on the knee associated with knee buckling and locking patient had lost his appetite, he ended up coming to the emergency department at [facility] today after his daughter contacted by staff and they directed her to go to the emergency department for evaluation of possible septic knee, patient was seen and evaluated in the ER he had temperature and his white count were normal, her d-dimer was elevated his troponin was slightly elevated as well, patient was started on IV antibiotic in the form of vancomycin as well as Zosyn, blood cultures will be obtained, aspiration of the left knee showed cloudy fluid the result of which still pending at the time of dictation orthopedic surgery consultation was obtained from Dr. Choi, patient will be admitted to hospital for further evaluation, his platelet count were down to 62,000 and his lactic acid was elevated suggestive of sepsis. 08/06: Patient is seen today in follow-up. COVID-[address] angios the chest showed no large central pulmonary emboli. Motion artifact of the bilateral lungs without focal airspace opacities. Fatty liver. Venous ultrasound was negative for DVT of the left lower extremity. Patient's home medication list needs to be updated. Will add and Lantus 18 units at bedtime, Plavix 75 mg daily, Januvia. Patient's nurse was updated that the patient's medication list needs to be confirmed. He has been seen by Dr. Choi and plan for I&D of the left knee today. Patient is currently on vancomycin IV and Zosyn. Patient has been afebrile, heart rate 104, respiratory rate 26, blood pressure 125/65, pulse ox 96% on room air. Repeat lactic acid is 8.3. Repeat troponin 3.790. WBC 7.7, hemoglobin 10.6. Sodium 128, potassium 3.5, chloride 98, CO2 18, BUN 25 and creatinine 1.62. Blood sugar 317. Calcium 7.6. Magnesium 1.8. Total bilirubin 3.1, AST 85, ALT 55, alkaline phosphatase 37. Fluid studies reveal RBC 3600, nucleated cells 62,000, polynuclear WBCs 85, and mononuclear WBCs 15, glucose 104, total protein 3330. Crystals pending. Consult also in place with cardiology and Dr. Strickland. 08/07: Has been afebrile, heart rate 103, blood pressure 116/61, pulse ox 96% on 2 L nasal cannula. Repeat troponins were 4.390 and 5.6. Blood sugars are running between 178 and 222. Blood culture is presumptive staph aureus on 2 specimens and fluid culture from the knee is also presumptive staph aureus. Repeat blood culture will be ordered today. Fluid analysis showed no crystals. Patient has been seen by cardiology and cleared for surgery. Patient subsequently underwent incision and drainage of the left total knee. The patient has also been followed by Dr. Chacon 8 and covered with antibiotics on Kefzol 2 g IV piggyback every 8 hours. Repeat blood work reveals WBC of 8.4, hemoglobin 9.8, platelet count 75. Sodium 131, potassium 3.9, chloride 99, CO2 19, BUN 43 and creatinine 3.02. Blood sugars are running between 178 and 222. Total bilirubin 1.7, AST 152, ALT 59. Troponin is 7.420. Radiology continues to follow. Diovan will be discontinued and consult placed with nephrology. 08/08: Patient is feeling more sick today with increased abdominal distention and increased hiccups, he is having very poor appetite is not able to tolerate his diet, he is requiring oxygen, chest x-ray and abdominal x-ray showed a gastric outlet obstruction, NG tube was placed and surgical consultation was obtained, continue IV fluid, patient will be seen in consultation by ICU for possible transfer to the intensive care unit due to his multiple medical issues. 08/09: Patient is laying down in bed he is feeling a bit better today he continues to have his NG tube in place, his stomach is less distended, less and she output, patient was started on heparin drip, he would be started on aspirin 300 mg per rectum, since is nothing by mouth we will start the patient on Lopressor 2.5 mg IV push every 6 hours around the clock hold for systolic blood pressure less than 100 or heart rate less than 55, patient has been followed by infectious disease, cardiology, pulmonary, as well as general surgery, we will maintain the patient on current treatment plan, we'll continue to follow very closely. 08/10: Patient is laying down but he continues to have significant pain in the cervical spine as well as lumbar spine is not able to move around much, he continues to have a lot of muscle spasm, no fever or chills, he was switched to nafcillin every 4 hours due to the fact that he has Staphylococcus aureus, his Drano out of the left knee is not having much drainage hopefully would be pulled today, patient's pain is not controlled very well, his NG tube was removed, his nothing per mouth, continue with heparin drip, continue with aspirin per rectum, he has no chest pain or shortness breath at this time he has no abdominal pain, he has no nausea or vomiting, we will start the patient on fentanyl patch 12 MCG once every 72 hours, monitor the patient very closely, continue with physical therapy evaluation. 08/11: Patient is sitting up in a recliner chair his in a lot of pain continue to have a significant neck spasm, he did receive Flexeril without any benefit, we will start the patient on Robaxin 750 mg orally 3 times every day continue fentanyl patch, continue with current pain management, there is no evidence of any discitis at this point in time continue IV antibiotic in the form of nafcillin, patient is scheduled to go for EGD tomorrow morning. Patient is nothing per mouth at this point except medication. 08/12: Patient is sitting up in bed, continues to be somewhat confused, he had no chest pain or shortness breath, he has no abdominal pain, he continues to be somewhat distended, his nothing per mouth so far his scheduled for EGD today, peng berrios will likely require subacute rehabilitation, he continues to have increased swelling in both lower extremities as well as scrotum, blood cultures was repeated still pending at the time of dictation we have to wait until the negative blood culture before he has a PICC line placement. 08/13: Patient is sitting up in bed in no significant distress today he continues to be somewhat short of breath, he continues to have increased swelling in both upper extremities and lower extremities along with a scrotum, he would be given Lasix 40 mg IV push 1, decrease IV fluid to KVO, monitor the patient very closely, patient underwent EGD yesterday that showed duodenitis and gastritis with minimal erosions and small hiatal hernia, he shouldn't has no chest pain today he denies any coughing or hemoptysis, he continues to have some abdominal distention, he did have a bowel movement, he appears a bit confused today the plan at is to have a transesophageal echo care gram for persistent bacteremia with Staphylococcus aureus . REVIEW OF SYSTEMS: Constitutional: Denies fever, denies chills, no night sweats, positive for fatigue , positive for lethargy and sleeping and weight loss. HEENT: Positive for headache. No blurred vision or double vision, no loss of vision. No loss of Hearing, no ringing in the ears, no dizziness. No nasal drainage or congestion. No epistaxis. No sore throat. Respiratory: No shortness of breath, no cough, no sputum production. No whe ezing. Reports dyspnea with activity. Cardiovascular: No chest pain, no lower extremity edema. No palpitations. No paroxysmal nocturnal dyspnea. No orthopnea. No lightheadedness or dizziness. No syncopal episodes. Gastrointestinal: abdom positive forinal pain. No nausea, vomiting. No diarr hea. No constipation. No bloody or tarry stools positive for passing gas. Genitourinary: Shelley catheter in place for urinary retention. Musculoskeletal: Positive for myalgias. positive for muscle weakness, Positive for gait dysfunction, no frequent falls, positive for left knee pain, locking, positive for low back pain, positive for severe neck pain with spasm. Integumentary: No wounds, no lesions. No rash or pruritus. Positive for bruising. No change in hair or nails. Neurologic: No aphasia. No facial droop. No change in mentation. No head injury. No headache. No paralysis, positive for paresthesia in the left upper extremity. Psychiatric: No depression. No anxiety. No mood swings. Endocrine: hyperglycemia . PHYSICAL EXAMINATION: General: This is 75-year-old male who appears to be moderately ill does not appear to be in acute respiratory distress. HEENT: Head is atraumatic, normocephalic, pupils were equal round reactive to light and recommendation, extraocular muscle movement were intact, sclera nonicteric, conjunctivae were pale, mucous membranes of the mouth are somewhat dry, Neck: Spastic was severe limitation in range of motion, no JVP, normal carotid upstroke bilaterally, no lymphadenopathy. Chest: Decreased breath sounds at the bases, few rhonchi, no extremity wheezes, no chest wall tenderness, no intercostal retractions, decreased tactile fremitus at the lower two thirds of the left lung field. Heart: First heart sound is normal, second heart sound is normal there is systolic ejection murmur 2/6 left sternal border. Abdomen: Soft, , mild tenderness to the epigastric area distended, positive bowel sounds, no hepatosplenomegaly Extremities: There is mild edema no calf tenderness DP + 1 bilaterally, left knee mildly tender to palpation with slightly swollen, drain was removed. Neurologic examination: Patient is awake alert and oriented X3, cranial nerves II-12 appear grossly intact, muscle power were 3 out of 5 in upper extremities and 3 out of 5 in bilateral lower extremities. ASSESSMENT AND PLAN: 1. Septic arthritis of the left knee. Initial blood culture and fluid culture positive for staph aureus. Repeat blood culture ordered. Continue IV antibiotic in the form of nafcillin 2 g IV piggyback every 4 hours, or so and ID are following. 2. Lactic acidosis due to sepsis. Resolved. decrease IV fluid to KVO. 3. Thrombocytopenia area and likely related to sepsis . Resolved. 4. Recent left heart catheterization with PCI of the RCA on 07/30/2020 Continue patient on aspirin 300 mg per rectum, Lopressor 2.5 mg IV push every 6 hours, and heparin drip. 5. Elevated troponin possibly due to prior intervention possibly non-ST elevation HI . Cardiology is following, patient did receive a loading dose of Plavix 300 mg orally once followed by Plavix 75 mg once every day, continue aspirin 81 mg once every day, continue with the Lopressor 2.5 mg IV push every 6 hours, we will restart the patient on atorvastatin 80 mg at bedtime. 6. Recent inferior wall ST elevation HI. Continue treatment as in paragraph #5. 7. Acute kidney injury secondary to acute tubular necrosis and hypotension with possible sepsis induced and contrast-induced nephropathy. Monitor the patient very closely continue IV fluid monitor cmp. 8. Abdominal distention with ileus ruled out for gastric outlet obstruction, NG tube was removed, patient is scheduled to go for EGD today. General surgery is following. 9. Hypertension and hypertensive cardiovascular disease. continue Lopressor 2.5 mg IV push every 6 hours. 10. Hyperlipidemia. continue atorvastatin 80 mg orally once every day. 11. Diabetes mellitus type 2. Start the patient on sliding scale insulin along with Lantus 22 units at bedtime, keep off Tradjenta. 11. History of prostate cancer status post rotation. Stable at this time. 12. 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 Spine surgery is following, patient underwent an MRI the cervical spine that showed significant d isc disease without evidence of discitis, continue fentanyl patch 12 MCG once every 72 hours, continue Robaxin 750 mg orally 2 times every day . 13. DVT prophylaxis. Bilateral knee-high ADAIR hose, restart the patient on Lovenox 40 mg subcutaneously every 24 hours. 14. GI prophylaxis. Protonix 40 mg orally once every day. 15. Patient is full code. 16. Overall prognosis is very guarded. 17. Medical debility. Physical therapy evaluation 12. Anasarca with fluid overload. Decrease IV fluid to KVO, start the patient on Lasix 40 mg IV push daily. DISCHARGE PLAN: Patient may require subacute versus inpatient rehab . Objective - Vital Signs Vital signs: Vital Signs Temp 98.8 F 08/13/20 04:00 Pulse 91 08/13/20 04:00 Resp 20 08/13/20 04:00 BP 157/67 08/13/20 04:00 Pulse Ox 96 08/13/20 04:00 Intake & Output 08/12/20 08/13/20 08/13/20 18:59 06:59 18:59 Intake Total 210 1320 Output Total 900 1125 Balance -690 195 Weight 117.5 kg 120 kg Intake: IV 210 1320 Invasive Line 5 10 Nafcillin 2 gm In 200 Dextrose 5% in Water 100 ml @ 50 mls/hr IVPB Q4HR [facility] Rx#:[id number] Potassium Chloride 10 meq 200 In Water For Injection 1 100ml.bag @ 100 mls/hr IVPB Q1H [facility] Rx#: [id number] Potassium Chloride 20 meq 200 In Water For Injection 1 100ml.bag @ 50 mls/hr IVPB Q2H [facility] Rx#: [id number] Sodium Chloride 0.9% 1, 720 000 ml @ 50 mls/hr IV . Q20H [facility] Rx#:[id number] Oral 0 Output: Urine 900 1125 Other: Voiding Method Indwelling Catheter Indwelling Catheter - Labs CBC & Chem 7: 08/12/20 09:19 08/13/20 10:06 Labs: Abnormal Lab Results - Last 24 Hours (Table) 08/12/20 08/12/20 08/12/20 Range/Units 09:19 09:19 11:36 RBC 3.09 L (4.30-5.90) m/uL Hgb 10.1 L (13.0-17.5) gm/dL Hct 29.5 L (39.0-53.0) % Lymphocytes # 0.3 L (1.0-4.8) k/uL Potassium 2.8 L (3.5-5.1) mmol/L Chloride 112 H (98-107) mmol/L Carbon Dioxide 21 L (22-30) mmol/L BUN 28 H (9-20) mg/dL Glucose 177 H (74-99) mg/dL POC Glucose (mg/dL) 206 H (75-99) mg/dL Total Bilirubin 1.4 H (0.2-1.3) mg/dL Total Protein 5.2 L (6.3-8.2) g/dL Albumin 2.5 L (3.5-5.0) g/dL 08/12/20 08/12/20 Range/Units 17:10 21:21 RBC (4.30-5.90) m/uL Hgb (13.0-17.5) gm/dL Hct (39.0-53.0) % Lymphocytes # (1.0-4.8) k/uL Potassium (3.5-5.1) mmol/L Chloride (98-107) mmol/L Carbon Dioxide (22-30) mmol/L BUN (9-20) mg/dL Glucose (74-99) mg/dL POC Glucose (mg/dL) 157 H 156 H (75-99) mg/dL Total Bilirubin (0.2-1.3) mg/dL Total Protein (6.3-8.2) g/dL Albumin (3.5-5.0) g/dL Microbiology - Last 24 Hours (Table) 08/09/20 05:22 Blood Culture - Preliminary Blood No Growth after 96 hours 08/10/20 05:43 Blood Culture Gram Stain - Final Blood Blood Culture - Final Staphylococcus aureus 08/11/20 07:45 Blood Culture Gram Stain - Preliminary Blood 08/07/20 17:45 Blood Culture - Preliminary Blood No Growth after 120 hours 08/11/20 07:45 Blood Culture - Final Blood
[2020-08-13 19:54] LABS: Glucose,Whole Blood 335 mg/dL (75-99)
[2020-08-13] MEDS: INSULIN DETEMIR (LEVEMIR) 100 UNIT/ML SYR SQ SCH (20:03)
[2020-08-13] MEDS ORDERED: Magnesium Replacement Protocol 1 EACH MISC MISCELLANE PRN (21:11)
[2020-08-14 00:59] LABS: Basophils % (A) 0 %; Eosinophils % (A) 0 %; HCT 26.4 % (39.0-53.0); HGB 9.2 gm/dL (13.0-17.5); Hypochromasia Slight; Lymphocytes # (A) 0.3 k/uL (1.0-4.8); Lymphocytes % (A) 5 %; MCH 32.8 pg (25.0-35.0); MCHC 34.6 g/dL (31.0-37.0); MCV 94.5 fL (80.0-100.0); Mean Platelet Volume 8.1; Monocytes # (A) 0.3 k/uL (0-1.0); Monocytes % (A) 5 %; Neutrophils # (A) 5.8 k/uL (1.3-7.7); Neutrophils % (A) 89 %; Platelet Count 208 k/uL (150-450); Poikilocytosis Slight; RDW 14.8 % (11.5-15.5); WBC 6.6 k/uL (3.8-10.6)
[2020-08-14 01:13] LABS: Calcium 10.1 mg/dL (8.4-10.2); Magnesium 1.7 mg/dL (1.6-2.3); Potassium 2.9 mmol/L (3.5-5.1)
[2020-08-14] MEDS: MAGNESIUM SULFATE-D5W PMX 1 GM in DEXTROSE/WATER 1 100ML.BAG IVPB SCH ×4 (02:01→20:54)
[2020-08-14] MEDS: POTASSIUM CHLORIDE 10 MEQ in WATER FOR INJECTION 1 100ML.BAG IVPB SCH ×6 (04:27→10:18)
[2020-08-14] MEDS: NAFCILLIN 2 GM in DEXTROSE 5% IN WATER 100 ML IVPB SCH ×12 (04:37→23:55)
[2020-08-14 06:32] LABS: Glucose,Whole Blood 128 mg/dL (75-99)
[2020-08-14] MEDS: METOPROLOL TARTRATE 5 MG/5 ML VIAL IVP SCH (06:39)
[2020-08-14] MEDS: INSULIN ASPART (NovoLOG) 100 UNIT/ML VIAL SQ SCH ×4 (06:44→20:54)
[2020-08-14] MEDS: IPRATROPIUM-ALBUTEROL 3 ML NEB INHALATION SCH ×4 (08:09→20:14)
[2020-08-14] MEDS: CLOPIDOGREL 75 MG TAB PO SCH (08:45)
[2020-08-14] MEDS: METOPROLOL TARTRATE 50 MG TAB PO SCH ×2 (08:45→21:11)
[2020-08-14] MEDS: ASPIRIN 81 MG PO SCH (08:45)
[2020-08-14] MEDS: ATORVASTATIN 80 MG TAB PO SCH (08:46)
[2020-08-14] MEDS: PANTOPRAZOLE 40 MG/10 ML VIAL IVP SCH (08:46)
[2020-08-14] MEDS: methocarbamoL 750 MG TAB PO PRN (08:46)
[2020-08-14] MEDS: ENOXAPARIN 40 MG/0.4 ML SYRINGE SQ SCH (08:46)
--- NOTE | 2020-08-14 09:09 | P.PN ---
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 for complex angioplasty of the occluded RCA, apparently patient did have 2 stents placement in the RCA and he was discharged from [facility] and patient has been getting more at all with poor appetite and his having some issues with his left knee not able to walk on the knee associated with knee buckling and locking patient had lost his appetite, he ended up coming to the emergency department at [facility] today after his daughter contacted by staff and they directed her to go to the emergency department for evaluation of possible septic knee, patient was seen and evaluated in the ER he had temperature and his white count were normal, her d-dimer was elevated his troponin was slightly elevated as well, patient was started on IV antibiotic in the form of vancomycin as well as Zosyn, blood cultures will be obtained, aspiration of the left knee showed cloudy fluid the result of which still pending at the time of dictation orthopedic surgery consultation was obtained from Dr. Choi, patient will be admitted to hospital for further evaluation, his platelet count were down to 62,000 and his lactic acid was elevated suggestive of sepsis. 08/06: Patient is seen today in follow-up. COVID-[address] angios the chest showed no large central pulmonary emboli. Motion artifact of the bilateral lungs without focal airspace opacities. Fatty liver. Venous ultrasound was negative for DVT of the left lower extremity. Patient's home medication list needs to be updated. Will add and Lantus 18 units at bedtime, Plavix 75 mg daily, Januvia. Patient's nurse was updated that the patient's medication list needs to be confirmed. He has been seen by Dr. Choi and plan for I&D of the left knee today. Patient is currently on vancomycin IV and Zosyn. Patient has been afebrile, heart rate 104, respiratory rate 26, blood pressure 125/65, pulse ox 96% on room air. Repeat lactic acid is 8.3. Repeat troponin 3.790. WBC 7.7, hemoglobin 10.6. Sodium 128, potassium 3.5, chloride 98, CO2 18, BUN 25 and creatinine 1.62. Blood sugar 317. Calcium 7.6. Magnesium 1.8. Total bilirubin 3.1, AST 85, ALT 55, alkaline phosphatase 37. Fluid studies reveal RBC 3600, nucleated cells 62,000, polynuclear WBCs 85, and mononuclear WBCs 15, glucose 104, total protein 3330. Crystals pending. Consult also in place with cardiology and Dr. Strickland. 08/07: Has been afebrile, heart rate 103, blood pressure 116/61, pulse ox 96% on 2 L nasal cannula. Repeat troponins were 4.390 and 5.6. Blood sugars are running between 178 and 222. Blood culture is presumptive staph aureus on 2 specimens and fluid culture from the knee is also presumptive staph aureus. Repeat blood culture will be ordered today. Fluid analysis showed no crystals. Patient has been seen by cardiology and cleared for surgery. Patient subsequently underwent incision and drainage of the left total knee. The patient has also been followed by Dr. Chacon 8 and covered with antibiotics on Kefzol 2 g IV piggyback every 8 hours. Repeat blood work reveals WBC of 8.4, hemoglobin 9.8, platelet count 75. Sodium 131, potassium 3.9, chloride 99, CO2 19, BUN 43 and creatinine 3.02. Blood sugars are running between 178 and 222. Total bilirubin 1.7, AST 152, ALT 59. Troponin is 7.420. Radiology continues to follow. Diovan will be discontinued and consult placed with nephrology. 08/08: Patient is feeling more sick today with increased abdominal distention and increased hiccups, he is having very poor appetite is not able to tolerate his diet, he is requiring oxygen, chest x-ray and abdominal x-ray showed a gastric outlet obstruction, NG tube was placed and surgical consultation was obtained, continue IV fluid, patient will be seen in consultation by ICU for possible transfer to the intensive care unit due to his multiple medical issues. 08/09: Patient is laying down in bed he is feeling a bit better today he continues to have his NG tube in place, his stomach is less distended, less and she output, patient was started on heparin drip, he would be started on aspirin 300 mg per rectum, since is nothing by mouth we will start the patient on Lopressor 2.5 mg IV push every 6 hours around the clock hold for systolic blood pressure less than 100 or heart rate less than 55, patient has been followed by infectious disease, cardiology, pulmonary, as well as general surgery, we will maintain the patient on current treatment plan, we'll continue to follow very closely. 08/10: Patient is laying down but he continues to have significant pain in the cervical spine as well as lumbar spine is not able to move around much, he continues to have a lot of muscle spasm, no fever or chills, he was switched to nafcillin every 4 hours due to the fact that he has Staphylococcus aureus, his Drano out of the left knee is not having much drainage hopefully would be pulled today, patient's pain is not controlled very well, his NG tube was removed, his nothing per mouth, continue with heparin drip, continue with aspirin per rectum, he has no chest pain or shortness breath at this time he has no abdominal pain, he has no nausea or vomiting, we will start the patient on fentanyl patch 12 MCG once every 72 hours, monitor the patient very closely, continue with physical therapy evaluation. 08/11: Patient is sitting up in a recliner chair his in a lot of pain continue to have a significant neck spasm, he did receive Flexeril without any benefit, we will start the patient on Robaxin 750 mg orally 3 times every day continue fentanyl patch, continue with current pain management, there is no evidence of any discitis at this point in time continue IV antibiotic in the form of nafcillin, patient is scheduled to go for EGD tomorrow morning. Patient is nothing per mouth at this point except medication. 08/12: Patient is sitting up in bed, continues to be somewhat confused, he had no chest pain or shortness breath, he has no abdominal pain, he continues to be somewhat distended, his nothing per mouth so far his scheduled for EGD today, peng berrios will likely require subacute rehabilitation, he continues to have increased swelling in both lower extremities as well as scrotum, blood cultures was repeated still pending at the time of dictation we have to wait until the negative blood culture before he has a PICC line placement. 08/13: Patient is sitting up in bed in no significant distress today he continues to be somewhat short of breath, he continues to have increased swelling in both upper extremities and lower extremities along with a scrotum, he would be given Lasix 40 mg IV push 1, decrease IV fluid to KVO, monitor the patient very closely, patient underwent EGD yesterday that showed duodenitis and gastritis with minimal erosions and small hiatal hernia, he shouldn't has no chest pain today he denies any coughing or hemoptysis, he continues to have some abdominal distention, he did have a bowel movement, he appears a bit confused today the plan at is to have a transesophageal echo care gram for persistent bacteremia w ith Staphylococcus aureus . 08/14: Patient is scheduled for LISA today with cardiology. Biopsy from EGD report is pending. Patient has Shelley catheter in place. He had a total of 1500 output yesterday after Lasix. He continues to have significant scrotal edema. Patient had 2 liquid bowel movements yesterday. His potassium at midnight was 2.9 and he received another 80 mEq of potassium and nephrology is managing. Repeat potassium is pending. CBC reveals WBC 6.6, hemoglobin 9.2, platelet count 208. All blood cultures are showing staph aureus and repeat blood culture obtained today. Patient is followed by infectious disease and continued on nafcillin. Patient continues to have increased weakness of the left leg and encouraged to be out of bed in the afternoon. Patient will require subacute rehab at the time of discharge. Patient has been afebrile, heart rate 74, blood pressure 141/66, pulse ox 95% on room air. REVIEW OF SYSTEMS: Constitutional: Denies fever, denies chills, no night sweats, positive for fatigue , positive for lethargy and sleeping and weight loss. HEENT: Positive for headache. No blurred vision or double vision, no loss of vision. No loss of Hearing, no ringing in the ears, no dizziness. No nasal drainage or congestion. No epistaxis. No sore throat. Respiratory: No shortness of breath, no cough, no sputum production. No wh eezing. Reports dyspnea with activity. Cardiovascular: No chest pain, no lower extremity edema. No palpitations. No paroxysmal nocturnal dyspnea. No orthopnea. No lightheadedness or dizziness. No syncopal episodes. Gastrointestinal: abdom positive forinal pain. No nausea, vomiting. No diar harika. No constipation. No bloody or tarry stools positive for passing gas. Genitourinary: Shelley catheter in place for urinary retention. Musculoskeletal: Positive for myalgias. positive for muscle weakness, Positive for gait dysfunction, no frequent falls, positive for left knee pain, locking left knee, positive for low back pain, positive for severe neck pain with spasm. Integumentary: No wounds, no lesions. No rash or pruritus. Positive for bruising. No change in hair or nails. Neurologic: No aphasia. No facial droop. No change in mentation. No head injury. No headache. No paralysis, positive for paresthesia in the left upper extremity. Psychiatric: No depression. No anxiety. No mood swings. Endocrine: hyperglycemia . PHYSICAL EXAMINATION: General: This is 75-year-old male who appears to be moderately ill does not appear to be in acute respiratory distress. HEENT: Head is atraumatic, normocephalic, pupils were equal round reactive to light and recommendation, extraocular muscle movement were intact, sclera nonicteric, conjunctivae were pale, mucous membranes of the mouth are somewhat dry, Neck: Spastic was severe limitation in range of motion, no JVP, normal carotid upstroke bilaterally, no lymphadenopathy. Chest: Decreased breath sounds at the bases, few rhonchi, no extremity wheezes, no chest wall tenderness, no intercostal retractions, decreased tactile fremitus at the lower two thirds of the left lung field. Heart: First heart sound is normal, second heart sound is normal there is systolic ejection murmur 2/6 left sternal border. Abdomen: Soft, , mild tenderness to the epigastric area distended, positive bowel sounds, no hepatosplenomegaly Extremities: There is mild edema no calf tenderness DP + 1 bilaterally, left knee mildly tender to palpation with slightly swollen, drain was removed. Neurologic examination: Patient is awake alert and oriented X3, cranial nerves II-12 appear grossly intact, muscle power were 3 out of 5 in upper extremities and 3 out of 5 in bilateral lower extremities. ASSESSMENT AND PLAN: 1. Septic arthritis of the left knee with persistent MSSA bacteremia. Repeat blood culture obtained on 08/14. Patient is scheduled for LISA today with cardiology. Initial blood culture and fluid culture positive for staph aureus. Continue IV antibiotic in the form of nafcillin 2 g IV piggyback every 4 hours, or so and ID are following. 2. Lactic acidosis due to sepsis. Resolved. decrease IV fluid to KVO. 3. Thrombocytopenia area and likely related to sepsis . Resolved. 4. Recent left heart catheterization with PCI of the RCA on 07/30/2020 Continue patient on aspirin 300 mg per rectum, Lopressor 2.5 mg IV push every 6 hours, and heparin drip. 5. Elevated troponin possibly due to prior intervention possibly non-ST elevation [place] . Cardiology is following, patient did receive a loading dose of Plavix 300 mg orally once followed by Plavix 75 mg once every day, continue aspirin 81 mg once every day, continue with the Lopressor 2.5 mg IV push every 6 hours, we will restart the patient on atorvastatin 80 mg at bedtime. 6. Recent inferior wall ST elevation NH. Continue treatment as in paragraph #5. 7. Acute kidney injury secondary to acute tubular necrosis and hypotension with possible sepsis induced and contrast-induced nephropathy. Monitor the patient very closely continue IV fluid monitor cmp. 8. Abdominal distention with ileus ruled out for gastric outlet obstruction, NG tube was removed, patient is scheduled to go for EGD today. General surgery is following. 9. Hypertension and hypertensive cardiovascular disease. continue Lopressor 2.5 mg IV push every 6 hours. 10. Hyperlipidemia. continue atorvastatin 80 mg orally once every day. 11. Diabetes mellitus type 2. Start the patient on sliding scale insulin along with Lantus 22 units at bedtime, keep off Tradjenta. 11. History of prostate cancer status post rotation. Stable at this time. 12. 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 Spine surgery is following, patient underwent an MRI the cervical spine that showed significant disc disease without evidence of discitis, continue fentanyl patch 12 MCG once every 72 hours, continue Robaxin 750 mg orally 2 times every day . 13. DVT prophylaxis. Bilateral knee-high ADAIR hose, restart the patient on Lovenox 40 mg subcutaneously every 24 hours. 14. GI prophylaxis. Protonix 40 mg orally once every day. 15. Patient is full code. 16. Overall prognosis is very guarded. 17. Medical debility. Physical therapy evaluation 12. Anasarca with fluid overload. Decrease IV fluid to KVO, start the patient on Lasix 40 mg IV push daily. DISCHARGE PLAN: Patient may require subacute versus inpatient rehab . Impression and plan of care have been directed as dictated by the signing physician. Padma Monsalve nurse practitioner acting as scribe for signing physician. Objective - Vital Signs Vital signs: Vital Signs Temp 99.6 F 08/14/20 04:40 Pulse 74 08/14/20 04:40 Resp 18 08/14/20 04:40 BP 141/66 08/14/20 04:40 Pulse Ox 95 08/14/20 04:40 Intake & Output 08/13/20 08/14/20 08/14/20 18:59 06:59 18:59 Intake Total 961 3360 Output Total 1900 2150 Balance -939 1210 Weight 120.5 kg Intake: IV 10 1960 Invasive Line 7 10 Magnesium Sulfate-D5w Pmx 400 1 gm In Dextrose/Water 1 100ml.bag @ 100 mls/hr IVPB Q1H [facility] Rx#: [id number] Nafcillin 2 gm In 600 Dextrose 5% in Water 100 ml @ 50 mls/hr IVPB Q4HR [facility] Rx#:[id number] Potassium Chloride 20 meq 700 In Water For Injection 1 100ml.bag @ 50 mls/hr IVPB Q2H [facility] Rx#: [id number] Sodium Chloride 0.9% 1, 260 000 ml @ 20 mls/hr IV . Q24H [facility] Rx#:[id number] Oral 951 1400 Output: Urine 1900 2150 Other: Voiding Method Indwelling Catheter Indwelling Catheter - Labs CBC & Chem 7: 08/14/20 00:44 08/14/20 00:44 Labs: Abnormal Lab Results - Last 24 Hours (Table) 08/13/20 08/13/20 08/13/20 Range/Units 06:28 10:06 11:58 RBC (4.30-5.90) m/uL Hgb (13.0-17.5) gm/dL Hct (39.0-53.0) % Lymphocytes # (1.0-4.8) k/uL Potassium 2.9 L (3.5-5.1) mmol/L Chloride 110 H (98-107) mmol/L BUN 22 H (9-20) mg/dL Glucose 142 H (74-99) mg/dL POC Glucose (mg/dL) 141 H 142 H (75-99) mg/dL 08/13/20 08/13/20 08/14/20 Range/Units 16:51 19:52 00:44 RBC (4.30-5.90) m/uL Hgb (13.0-17.5) gm/dL Hct (39.0-53.0) % Lymphocytes # (1.0-4.8) k/uL Potassium 2.9 L (3.5-5.1) mmol/L Chloride (98-107) mmol/L BUN 21 H (9-20) mg/dL Glucose 107 H (74-99) mg/dL POC Glucose (mg/dL) 347 H 335 H (75-99) mg/dL 08/14/20 08/14/20 Range/Units 00:44 06:31 RBC 2.80 L (4.30-5.90) m/uL Hgb 9.2 L (13.0-17.5) gm/dL Hct 26.4 L (39.0-53.0) % Lymphocytes # 0.3 L (1.0-4.8) k/uL Potassium (3.5-5.1) mmol/L Chloride (98-107) mmol/L BUN (9-20) mg/dL Glucose (74-99) mg/dL POC Glucose (mg/dL) 128 H (75-99) mg/dL Microbiology - Last 24 Hours (Table) 08/07/20 17:45 Blood Culture - Final Blood No Growth after 144 hours 08/11/20 07:45 Blood Culture Gram Stain - Preliminary Blood Blood Culture - Preliminary Presumptive Staph aureus 08/09/20 05:22 Blood Culture - Preliminary Blood No Growth after 96 hours
[2020-08-14] MEDS: SODIUM CHLORIDE 0.9% 1,000 ML IV SCH ×2 (10:25→12:15)
[2020-08-14] MEDS ORDERED: fentaNYL (PF) 50 MCG/ML 2 ML AMP ONE (10:27)
[2020-08-14] MEDS ORDERED: IV FLUID CONTINUATION 900 ML IV ONE (10:41)
[2020-08-14] MEDS: BENZOCAINE SPRAY 1 CAN TOPICAL ONE ×2 (10:42→10:50)
[2020-08-14] MEDS ORDERED: fentaNYL (PF) 50 MCG/ML 2 ML AMP IV ONE (11:07)
[2020-08-14] MEDS ORDERED: MIDAZOLAM 2 MG/2 ML VIAL IV ONE (11:07)
[2020-08-14 11:49] LABS: Glucose,Whole Blood 125 mg/dL (75-99)
--- NOTE | 2020-08-14 15:30 | ECHOT ---
TRANSESOPHAGEAL ECHOCARDIOGRAM INDICATION: Positive blood culture, rule out endocarditis. PROCEDURE: After explaining the procedure to the patient, its risks and the complications, his blood pressure, heart rate, O2 saturation were monitored. The throat was sprayed with Cetacaine. He received 2 mg intravenous Versed, 50 mcg intravenous fentanyl. The probe was introduced in the esophagus without difficulty. Images were obtained. Following that, the probe was removed. There was no immediate complication. FINDINGS: Left atrial size is mildly dilated. Left atrial appendage is normal. Left ventricular size and systolic function normal. The aortic valve revealed mild calcification. The aortic valve is a tricuspid valve with mild fibrocalcific changes with preserved opening. The tricuspid valve is normal. Pulmonic valve is normal. Descending thoracic aorta appears to be normal. Contrast bubble study revealed no shunting across the interatrial septum. There was no pericardial effusion. Doppler, pulse wave and color Doppler obtained and revealed a mild mitral, tricuspid and trace pulmonic regurgitation. There was no shunting across the interatrial septum. CONCLUSION: 1. Mildly dilated left atrium with normal appearance of left atrial appendage. 2. Normal left ventricular size and systolic function. 3. Mild mitral, tricuspid with trace pulmonic regurgitation. 4. No evidence of shunting across the interatrial septum. 5. No evidence of vegetations. MMODL / IJN: [id number] /
[2020-08-14 16:22] LABS: Glucose,Whole Blood 143 mg/dL (75-99)
--- NOTE | 2020-08-14 17:24 | PN ---
PROGRESS NOTE DATE OF SERVICE: 08/14/2020 REASON FOR FOLLOWUP: MSSA bacteremia, left knee septic arthritis. INTERVAL HISTORY: The patient is currently afebrile. The patient remains slightly sleepy, lethargic today and was not a very good historian. The patient was scheduled for LISA today and that did not show any evidence of vegetation. PHYSICAL EXAMINATION: Blood pressure 163/77 with a pulse of 77, temperature 98.6. He is 95% on room air. General description is an elderly male lying in bed in no distress. RESPIRATORY SYSTEM: Unlabored breathing. Clear to auscultation anteriorly. HEART: S1, S2. Regular rate and rhythm. ABDOMEN: Soft. No tenderness. LABS: Hemoglobin is 9.3, white count 6.6, BUN of 21, creatinine 1.22. Blood cultures from 08/13 are so far negative. DIAGNOSTIC IMPRESSION AND PLAN: Patient with methicillin-susceptible Staphylococcus aeruginosa bacteremia, persistent, in this patient who did have left knee septic arthritis, status post excision of pus and antibiotic spacer placement. The patient is covered with nafcillin. LISA was negative as well. Continue to monitor the patient closely. PICC line will be placed once his blood cultures have cleared. Continue with supportive care. MMODL / IJN: [id number] /
[2020-08-14 18:05] LABS: Magnesium 1.7 mg/dL (1.6-2.3); Potassium 3.5 mmol/L (3.5-5.1)
[2020-08-14] MEDS: POTASSIUM CHLORIDE ER 20 MEQ TAB.ER PO SCH ×2 (18:47→20:54)
[2020-08-14 20:09] LABS: Glucose,Whole Blood 228 mg/dL (75-99)
[2020-08-14] MEDS: PANTOPRAZOLE 40 MG TABLET PO SCH (20:53)
[2020-08-14] MEDS: HYDROmorphone 0.5 MG/0.5 ML SYRINGE IVP PRN (20:55)
[2020-08-14] MEDS: INSULIN DETEMIR (LEVEMIR) 100 UNIT/ML SYR SQ SCH (20:56)
[2020-08-15] MEDS: NAFCILLIN 2 GM in DEXTROSE 5% IN WATER 100 ML IVPB SCH ×12 (04:52→23:25)
[2020-08-15] MEDS: HYDROmorphone 0.5 MG/0.5 ML SYRINGE IVP PRN (04:52)
[2020-08-15 06:26] LABS: Glucose,Whole Blood 156 mg/dL (75-99)
[2020-08-15] MEDS: INSULIN ASPART (NovoLOG) 100 UNIT/ML VIAL SQ SCH ×4 (06:53→21:18)
[2020-08-15] MEDS: IPRATROPIUM-ALBUTEROL 3 ML NEB INHALATION SCH ×4 (08:15→21:01)
--- NOTE | 2020-08-15 09:00 | P.PN ---
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 as well as radio frequency ablation, prostate cancer status post radiation therapy, patient took himself off the Plavix due to significant bruising and bleeding against his time study statistician recommendation and he was taken a baby aspirin alone, patient presented to the emergency department at [facility] on 07/28/2020 with what appears to be an inferior wall ST elevation myocardial infarction 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 was 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 to the 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 lab 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 and an attempted angioplasty of a computed occluded RCA had failed and the patient was transferred to [facility] for complex angioplasty of the occluded RCA, apparently patient did have 2 stents placement in the RCA and he was discharged from [facility] and patient has been getting more at all with poor appetite and his having some issues with his left knee not able to walk on the knee associated with knee buckling and locking patient had lost his appetite, he ended up coming to the emergency department at [facility] today after his daughter contacted by staff and they directed her to go to the emergency department for evaluation of possible septic knee, patient was seen and evaluated in the ER he had temperature and his white count were normal, her d-dimer was elevated his troponin was slightly elevated as well, patient was started on IV antibiotic in the form of vancomycin as well as Zosyn, blood cultures will be obtained, aspiration of the left knee showed cloudy fluid the result of which still pending at the time of dictation orthopedic surgery consultation was obtained from Dr. Choi, patient will be admitted to hospital for further evaluation, his platelet count were down to 62,000 and his lactic acid was elevated suggestive of sepsis. 08/06: Patient is seen today in follow-up. COVID-[address] angios the chest showed no large central pulmonary emboli. Motion artifact of the bilateral lungs without focal airspace opacities. Fatty liver. Venous ultrasound was negative for DVT of the left lower extremity. Patient's home medication list needs to be updated. Will add and Lantus 18 units at bedtime, Plavix 75 mg daily, Januvia. Patient's nurse was updated that the patient's medication list needs to be confirmed. He has been seen by Dr. Choi and plan for I&D of the left knee today. Patient is currently on vancomycin IV and Zosyn. Patient has been afebrile, heart rate 104, respiratory rate 26, blood pressure 125/65, pulse ox 96% on room air. Repeat lactic acid is 8.3. Repeat troponin 3.790. WBC 7.7, hemoglobin 10.6. Sodium 128, potassium 3.5, chloride 98, CO2 18, BUN 25 and creatinine 1.62. Blood sugar 317. Calcium 7.6. Magnesium 1.8. Total bilirubin 3.1, AST 85, ALT 55, alkaline phosphatase 37. Fluid studies reveal RBC 3600, nucleated cells 62,000, polynuclear WBCs 85, and mononuclear WBCs 15, glucose 104, total protein 3330. Crystals pending. Consult also in place with cardiology and Dr. Strickland. 08/07: Has been afebrile, heart rate 103, blood pressure 116/61, pulse ox 96% on 2 L nasal cannula. Repeat troponins were 4.390 and 5.6. Blood sugars are running between 178 and 222. Blood culture is presumptive staph aureus on 2 specimens and fluid culture from the knee is also presumptive staph aureus. Repeat blood culture will be ordered today. Fluid analysis showed no crystals. Patient has been seen by cardiology and cleared for surgery. Patient subsequently underwent incision and drainage of the left total knee. The patient has also been followed by Dr. Chacon 8 and covered with antibiotics on Kefzol 2 g IV piggyback every 8 hours. Repeat blood work reveals WBC of 8.4, hemoglobin 9.8, platelet count 75. Sodium 131, potassium 3.9, chloride 99, CO2 19, BUN 43 and creatinine 3.02. Blood sugars are running between 178 and 222. Total bilirubin 1.7, AST 152, ALT 59. Troponin is 7.420. Radiology continues to follow. Diovan will be discontinued and consult placed with nephrology. 08/08: Patient is feeling more sick today with increased abdominal distention and increased hiccups, he is having very poor appetite is not able to tolerate his diet, he is requiring oxygen, chest x-ray and abdominal x-ray showed a gastric outlet obstruction, NG tube was placed and surgical consultation was obtained, continue IV fluid, patient will be seen in consultation by ICU for possible transfer to the intensive care unit due to his multiple medical issues. 08/09: Patient is laying down in bed he is feeling a bit better today he continues to have his NG tube in place, his stomach is less distended, less and she output, patient was started on heparin drip, he would be started on aspirin 300 mg per rectum, since is nothing by mouth we will start the patient on Lopressor 2.5 mg IV push every 6 hours around the clock hold for systolic blood pressure less than 100 or heart rate less than 55, patient has been followed by infectious disease, cardiology, pulmonary, as well as general surgery, we will maintain the patient on current treatment plan, we'll continue to follow very closely. 08/10: Patient is laying down but he continues to have significant pain in the cervical spine as well as lumbar spine is not able to move around much, he continues to have a lot of muscle spasm, no fever or chills, he was switched to nafcillin every 4 hours due to the fact that he has Staphylococcus aureus, his Drano out of the left knee is not having much drainage hopefully would be pulled today, patient's pain is not controlled very well, his NG tube was removed, his nothing per mouth, continue with heparin drip, continue with aspirin per rectum, he has no chest pain or shortness breath at this time he has no abdominal pain, he has no nausea or vomiting, we will start the patient on fentanyl patch 12 MCG once every 72 hours, monitor the patient very closely, continue with physical therapy evaluation. 08/11: Patient is sitting up in a recliner chair his in a lot of pain continue to have a significant neck spasm, he did receive Flexeril without any benefit, we will start the patient on Robaxin 750 mg orally 3 times every day continue fentanyl patch, continue with current pain management, there is no evidence of any discitis at this point in time continue IV antibiotic in the form of nafcillin, patient is scheduled to go for EGD tomorrow morning. Patient is nothing per mouth at this point except medication. 08/12: Patient is sitting up in bed, continues to be somewhat confused, he had no chest pain or shortness breath, he has no abdominal pain, he continues to be somewhat distended, his nothing per mouth so far his scheduled for EGD today, peng berrios will likely require subacute rehabilitation, he continues to have increased swelling in both lower extremities as well as scrotum, blood cultures was repeated still pending at the time of dictation we have to wait until the negative blood culture before he has a PICC line placement. 08/13: Patient is sitting up in bed in no significant distress today he continues to be somewhat short of breath, he continues to have increased swelling in both upper extremities and lower extremities along with a scrotum, he would be given Lasix 40 mg IV push 1, decrease IV fluid to KVO, monitor the patient very closely, patient underwent EGD yesterday that showed duodenitis and gastritis with minimal erosions and small hiatal hernia, he shouldn't has no chest pain today he denies any coughing or hemoptysis, he continues to have some abdominal distention, he did have a bowel movement, he appears a bit confused today the plan at is to have a transesophageal echo care gram for persistent bacteremia w ith Staphylococcus aureus . 08/14: Patient is scheduled for LISA today with cardiology. Biopsy from EGD report is pending. Patient has Shelley catheter in place. He had a total of 1500 output yesterday after Lasix. He continues to have significant scrotal edema. Patient had 2 liquid bowel movements yesterday. His potassium at midnight was 2.9 and he received another 80 mEq of potassium and nephrology is managing. Repeat potassium is pending. CBC reveals WBC 6.6, hemoglobin 9.2, platelet count 208. All blood cultures are showing staph aureus and repeat blood culture obtained today. Patient is followed by infectious disease and continued on nafcillin. Patient continues to have increased weakness of the left leg and encouraged to be out of bed in the afternoon. Patient will require subacute rehab at the time of discharge. Patient has been afebrile, heart rate 74, blood pressure 141/66, pulse ox 95% on room air. 08/15: LISA performed yesterday by Dr. Valencia showed no vegetation, no shunting. Repeat blood culture obtained on August 13 are showing no growth at 24 hours. Yesterday, a repeat blood culture was also obtained which is in process. Patient has been afebrile, heart rate 89, blood pressure 125/65, pulse ox 96% on room air. Blood sugars are running between 143 and 228. Repeat potassium yesterday afternoon was 3.5 and last night was 3.6. Repeat laboratory studies for this morning are still pending at 9 AM. Patient continues to have significant weakness. He is encouraged to get out of bed and sit in his chair several times a day. If blood culture remains without growth by tomorrow morning, PICC line will be ordered for tomorrow morning with anticipation of d ischarge to senior care in the next 24 hours. Discharge plan is to [facility] or [facility]. REVIEW OF SYSTEMS: Constitutional: Denies fever, denies chills, no night sweats, positive for fatigue , positive for lethargy and sleeping and weight loss. HEENT: Positive for headache. No blurred vision or double vision, no loss of vision. No loss of Hearing, no ringing in the ears, no dizziness. No nasal drainage or congestion. No epistaxis. No sore throat. Respiratory: No shortness of breath, no cough, no sputum production. No wheezing. Reports dyspnea with activity. Cardiovascular: No chest pain, no lower extremity edema. No palpitations. No paroxysmal nocturnal dyspnea. No orthopnea. No lightheadedness or dizziness. No syncopal episodes. Gastrointestinal: abdom positive forinal pain. No nausea, vomiting. No diarrhea. No constipation. No bloody or tarry stools positive for passing gas. Genitourinary: Shelley catheter in place for urinary retention. Musculoskeletal: Positive for myalgias. positive for significant muscle weakness, Positive for gait dysfunction, no frequent falls, positive for left knee pain, locking left knee, positive for low back pain, positive for severe neck pain with spasm. Integumentary: No wounds, no lesions. No rash or pruritus. Positive for bruising. No change in hair or nails. Neurologic: No aphasia. No facial droop. No change in mentation. No head injury. No headache. No paralysis, positive for paresthesia in the left upper extremity. Psychiatric: No depression. No anxiety. No mood swings. Endocrine: hyperglycemia . PHYSICAL EXAMINATION: General: This is 75-year-old male who appears to be moderately ill does not appear to be in acute respiratory distress. HEENT: Head is atraumatic, normocephalic, pupils were equal round reactive to light and recommendation, extraocular muscle movement were intact, sclera nonicteric, conjunctivae were pale, mucous membranes of the mouth are somewhat dry, Neck: Spastic was severe limitation in range of motion, no JVP, normal carotid upstroke bilaterally, no lymphadenopathy. Chest: Decreased breath sounds at the bases, few rhonchi, no extremity wheezes, no chest wall tenderness, no intercostal retractions, decreased tactile fremitus at the lower two thirds of the left lung field. Heart: First heart sound is normal, second heart sound is normal there is systolic ejection murmur 2/6 left sternal border. Abdomen: Soft, , mild tenderness to the epigastric area distended, positive bowel sounds, no hepatosplenomegaly Extremities: There is mild edema no calf tenderness DP + 1 bilaterally, left knee mildly tender to palpation with slightly swollen, drain was removed. Neurologic examination: Patient is awake alert and oriented X3, cranial nerves II-12 appear grossly intact. ASSESSMENT AND PLAN: 1. Septic arthritis of the left knee with persistent MSSA bacteremia. Repeat blood culture obtained on 08/14. LISA was negative for vegetation. Initial blood culture and fluid culture positive for staph aureus. Continue IV antibiotic in the form of nafcillin 2 g IV piggyback every 4 hours, or so and ID are following. Anticipate PICC line insertion in 24 hours. 2. Lactic acidosis due to sepsis. Resolved. 3. Thrombocytopenia area and likely related to sepsis Resolved. 4. Recent left heart catheterization with PCI of the RCA on 07/30/2020 Continue patient on aspirin 81 mg daily, atorvastatin 80 mg daily, Plavix 75 mg daily, lopressor 50 mg oral twice daily. 5. Elevated troponin, acute coronary syndrome ruled out by cardiology. 6. Recent inferior wall ST elevation MS. Continue treatment as in paragraph #4. 7. Acute kidney injury secondary to acute tubular necrosis and hypotension with possible sepsis induced and contrast-induced nephropathy. 8. Abdominal distention with ileus ruled out for gastric outlet obstruction. That is post EGD finding duodenitis with erosions, gastritis with erosions and small hiatal hernia. 9. Hypertension and hypertensive cardiovascular disease. In 10 year Lopressor 50 mg twice daily oral. 10. Hyperlipidemia. continue atorvastatin 80 mg orally once every day. 11. Diabetes mellitus type 2. Continue sliding scale insulin along with Lantus 22 units at bedtime, keep off Tradjenta. 11. History of prostate cancer status post rotation. Stable at this time. 12. 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 Spine surgery is following, patient underwent an MRI the cervical spine that showed significant disc disease without evidence of discitis, continue fentanyl patch 12 MCG once every 72 hours, continue Robaxin 750 mg orally 2 times every day as needed. 13. DVT prophylaxis. Bilateral knee-high ADAIR hose, Lovenox 40 mg subcutaneously every 24 hours. 14. GI prophylaxis. Protonix 40 mg orally twice day. 15. Patient is full code. 16. Overall prognosis is very guarded. 17. Medical debility. Physical therapy evaluation 12. Anasarca with fluid overload. Status post Lasix 40 mg IV push. DISCHARGE PLAN: Subacute rehab at [facility] or [facility]. Impression and plan of care have been directed as dictated by the signing physician. Padma Monsalve nurse practitioner acting as scribe for signing physician. Objective - Vital Signs Vital signs: Vital Signs Temp 99.4 F 08/15/20 08:11 Pulse 89 08/15/20 08:11 Resp 18 08/15/20 08:11 BP 125/65 08/15/20 08:11 Pulse Ox 96 08/15/20 08:11 Intake & Output 08/14/20 08/15/20 08/15/20 18:59 06:59 18:59 Intake Total 1957 Output Total 450 875 Balance 1507 -875 Weight 123 kg Intake: IV 1420 Magnesium Sulfate-D5w Pmx 100 1 gm In Dextrose/Water 1 100ml.bag @ 100 mls/hr IVPB Q1H [facility] Rx#: [id number] Nafcillin 2 gm In 300 Dextrose 5% in Water 100 ml @ 50 mls/hr IVPB Q4HR [facility] Rx#:[id number] Potassium Chloride 10 meq 600 In Water For Injection 1 100ml.bag @ 100 mls/hr IVPB Q1HR [facility] Rx#: [id number] Sodium Chloride 0.9% 1, 220 000 ml @ 20 mls/hr IV . Q24H [facility] Rx#:[id number] Oral 537 Output: Urine 450 875 Other: Voiding Method Indwelling Catheter Indwelling Catheter # Bowel Movements 1 - Labs CBC & Chem 7: 04/28/21 00:44 08/14/20 20:55 Labs: Abnormal Lab Results - Last 24 Hours (Table) 08/14/20 08/14/20 08/14/20 Range/Units 11:47 16:20 20:04 POC Glucose (mg/dL) 125 H 143 H 228 H (75-99) mg/dL 08/15/20 Range/Units 06:24 POC Glucose (mg/dL) 156 H (75-99) mg/dL Microbiology - Last 24 Hours (Table) 08/09/20 05:22 Blood Culture - Final Blood No Growth after 144 hours 08/13/20 10:06 Blood Culture - Preliminary Blood No Growth after 24 hours 08/11/20 07:45 Blood Culture Gram Stain - Final Blood Blood Culture - Final Staphylococcus aureus
[2020-08-15 09:10] LABS: HCT 25.7 % (39.0-53.0); HGB 8.8 gm/dL (13.0-17.5); Hypochromasia Slight; MCH 32.5 pg (25.0-35.0); MCHC 34.1 g/dL (31.0-37.0); MCV 95.3 fL (80.0-100.0); Mean Platelet Volume 7.8; Platelet Count 212 k/uL (150-450); Poikilocytosis Slight; RDW 14.7 % (11.5-15.5); WBC 7.7 k/uL (3.8-10.6)
[2020-08-15 09:25] LABS: Calcium 10.5 mg/dL (8.4-10.2); Potassium 3.3 mmol/L (3.5-5.1)
[2020-08-15] MEDS: ASPIRIN 81 MG PO SCH (09:36)
[2020-08-15] MEDS: CLOPIDOGREL 75 MG TAB PO SCH (09:37)
[2020-08-15] MEDS: METOPROLOL TARTRATE 50 MG TAB PO SCH ×2 (09:37→21:18)
[2020-08-15] MEDS: ENOXAPARIN 40 MG/0.4 ML SYRINGE SQ SCH (09:38)
[2020-08-15] MEDS: PANTOPRAZOLE 40 MG TABLET PO SCH ×2 (09:38→21:18)
[2020-08-15] MEDS: ATORVASTATIN 80 MG TAB PO SCH (09:38)
[2020-08-15 11:14] VITALS: BMI 35.7
[2020-08-15 11:18] LABS: Glucose,Whole Blood 128 mg/dL (75-99)
[2020-08-15] MEDS ORDERED: POTASSIUM CHLORIDE ER 20 MEQ TAB.ER PO STA (11:39)
--- NOTE | 2020-08-15 11:40 | P.PN ---
Subjective Patient is seen in follow-up for acute kidney injury. Renal function a little worse today. Hemodynamically stable. Nonoliguric. Received IV Lasix on August 13. No chest pain or shortness of breath. Vital signs are stable. General: The patient appeared well nourished and normally developed. HEENT: Head exam is unremarkable. Neck is without jugular venous distension. LUNGS: Breath sounds decreased. HEART: Rate and Rhythm are regular. ABDOMEN: Soft, nontender. EXTREMITITES: Trace edema. Objective - Vital Signs Vital signs: Vital Signs Temp 99.4 F 08/15/20 08:11 Pulse 89 08/15/20 10:45 Resp 18 08/15/20 10:45 BP 125/65 08/15/20 08:11 Pulse Ox 96 08/15/20 08:11 Intake & Output 08/14/20 08/15/20 08/15/20 18:59 06:59 18:59 Intake Total 1957 120 Output Total 450 875 Balance 1507 -875 120 Weight 123 kg 123 kg Intake: IV 1420 Magnesium Sulfate-D5w Pmx 100 1 gm In Dextrose/Water 1 100ml.bag @ 100 mls/hr IVPB Q1H [facility] Rx#: [id number] Nafcillin 2 gm In 300 Dextrose 5% in Water 100 ml @ 50 mls/hr IVPB Q4HR [facility] Rx#:[id number] Potassium Chloride 10 meq 600 In Water For Injection 1 100ml.bag @ 100 mls/hr IVPB Q1HR [facility] Rx#: [id number] Sodium Chloride 0.9% 1, 220 000 ml @ 20 mls/hr IV . Q24H [facility] Rx#:[id number] Oral 537 120 Output: Urine 450 875 Other: Voiding Method Indwelling Catheter Indwelling Catheter Indwelling Catheter # Bowel Movements 1 - Labs CBC & Chem 7: 08/15/20 08:44 08/15/20 08:44 Labs: Abnormal Lab Results - Last 24 Hours (Table) 08/14/20 08/14/20 08/14/20 Range/Units 11:47 16:20 20:04 RBC (4.30-5.90) m/uL Hgb (13.0-17.5) gm/dL Hct (39.0-53.0) % Sodium (137-145) mmol/L Potassium (3.5-5.1) mmol/L Creatinine (0.66-1.25) mg/dL Glucose (74-99) mg/dL POC Glucose (mg/dL) 125 H 143 H 228 H (75-99) mg/dL Calcium (8.4-10.2) mg/dL 08/15/20 08/15/20 08/15/20 Range/Units 06:24 08:44 08:44 RBC 2.70 L (4.30-5.90) m/uL Hgb 8.8 L (13.0-17.5) gm/dL Hct 25.7 L (39.0-53.0) % Sodium 134 L (137-145) mmol/L Potassium 3.3 L (3.5-5.1) mmol/L Creatinine 1.45 H (0.66-1.25) mg/dL Glucose 129 H (74-99) mg/dL POC Glucose (mg/dL) 156 H (75-99) mg/dL Calcium 10.5 H (8.4-10.2) mg/dL 08/15/20 Range/Units 11:17 RBC (4.30-5.90) m/uL Hgb (13.0-17.5) gm/dL Hct (39.0-53.0) % Sodium (137-145) mmol/L Potassium (3.5-5.1) mmol/L Creatinine (0.66-1.25) mg/dL Glucose (74-99) mg/dL POC Glucose (mg/dL) 128 H (75-99) mg/dL Calcium (8.4-10.2) mg/dL Microbiology - Last 24 Hours (Table) 08/14/20 08:41 Blood Culture - Preliminary Blood No Growth after 24 hours 08/11/20 07:45 Blood Culture Gram Stain - Final Blood Blood Culture - Final Staphylococcus aureus 08/09/20 05:22 Blood Culture - Final Blood No Growth after 144 hours 08/13/20 10:06 Blood Culture - Preliminary Blood No Growth after 24 hours Assessment and Plan Plan: Assessment: 1. Acute kidney injury mostly prerenal secondary to infection and lisinopril. Renal function a little worse likely from diuretics. Creatinine 1.45 today. 2. Left knee septic arthritis with staph aureus bacteremia. On antibiotics. No vegetation noted on LISA. 3. Hypokalemia from poor intake and diuresis. 4. Benign hypertension. Stable. 5. Difficulty swallowing. Currently nothing by mouth. 6. Metabolic acidosis secondary to acute kidney injury and IVFs. Better. 7. Diabetes mellitus. 8. Hypercalcemia. He's not on any vitamin D or calcium supplements. Plan: Start normal saline at 50 mL an hour. Replace potassium. Avoid nephrotoxins. Continue to monitor renal function and urine output. Check further workup for hypercalcemia.
[2020-08-15 11:53] LABS: Glucose,Whole Blood 127 mg/dL (75-99)
--- NOTE | 2020-08-15 12:52 | P.PN ---
Subjective Progress Note Date: 08/15/20 This is a 75-year-old male who is admitted with septicemia and blood cultures positive for staph aureus. Patient is status post incision and drainage of the left knee for septic arthritis. This is postoperative day #9. Patient is seen and evaluated at bedside today. Patient states that he is not having any pain in the left knee today. Patient denies any new complaints today. Patient is awaiting PICC line placement. Objective - Vital Signs Vital signs: Vital Signs Temp 99.4 F 08/15/20 08:11 Pulse 89 08/15/20 10:45 Resp 18 08/15/20 10:45 BP 125/65 08/15/20 08:11 Pulse Ox 96 08/15/20 08:11 Intake & Output 08/14/20 08/15/20 08/15/20 18:59 06:59 18:59 Intake Total 1957 120 Output Total 450 875 Balance 1507 -875 120 Weight 123 kg 123 kg Intake: IV 1420 Magnesium Sulfate-D5w Pmx 100 1 gm In Dextrose/Water 1 100ml.bag @ 100 mls/hr IVPB Q1H [facility] Rx#: [id number] Nafcillin 2 gm In 300 Dextrose 5% in Water 100 ml @ 50 mls/hr IVPB Q4HR [facility] Rx#:[id number] Potassium Chloride 10 meq 600 In Water For Injection 1 100ml.bag @ 100 mls/hr IVPB Q1HR [facility] Rx#: [id number] Sodium Chloride 0.9% 1, 220 000 ml @ 20 mls/hr IV . Q24H [facility] Rx#:[id number] Oral 537 120 Output: Urine 450 875 Other: Voiding Method Indwelling Catheter Indwelling Catheter Indwelling Catheter # Bowel Movements 1 - Exam Vital signs are stable. Patient is in no acute distress. Patient is alert. Calf is soft and nontender to palpation. Dressing is clean, dry, and intact. Surgical clips are intact. There is no erythema or ecchymosis. Patient has full foot and ankle motion without pain or difficulty. Neurovascular status and circulatory status are intact. - Labs CBC & Chem 7: 08/15/20 08:44 08/15/20 08:44 Labs: Abnormal Lab Results - Last 24 Hours (Table) 08/14/20 08/14/20 08/15/20 Range/Units 16:20 20:04 06:24 RBC (4.30-5.90) m/uL Hgb (13.0-17.5) gm/dL Hct (39.0-53.0) % Sodium (137-145) mmol/L Potassium (3.5-5.1) mmol/L Creatinine (0.66-1.25) mg/dL Glucose (74-99) mg/dL POC Glucose (mg/dL) 143 H 228 H 156 H (75-99) mg/dL Calcium (8.4-10.2) mg/dL 08/15/20 08/15/20 08/15/20 Range/Units 08:44 08:44 11:17 RBC 2.70 L (4.30-5.90) m/uL Hgb 8.8 L (13.0-17.5) gm/dL Hct 25.7 L (39.0-53.0) % Sodium 134 L (137-145) mmol/L Potassium 3.3 L (3.5-5.1) mmol/L Creatinine 1.45 H (0.66-1.25) mg/dL Glucose 129 H (74-99) mg/dL POC Glucose (mg/dL) 128 H (75-99) mg/dL Calcium 10.5 H (8.4-10.2) mg/dL 08/15/20 Range/Units 11:51 RBC (4.30-5.90) m/uL Hgb (13.0-17.5) gm/dL Hct (39.0-53.0) % Sodium (137-145) mmol/L Potassium (3.5-5.1) mmol/L Creatinine (0.66-1.25) mg/dL Glucose (74-99) mg/dL POC Glucose (mg/dL) 127 H (75-99) mg/dL Calcium (8.4-10.2) mg/dL Microbiology - Last 24 Hours (Table) 08/13/20 10:06 Blood Culture - Preliminary Blood No Growth after 48 hours 08/14/20 08:41 Blood Culture - Preliminary Blood No Growth after 24 hours 08/11/20 07:45 Blood Culture Gram Stain - Final Blood Blood Culture - Final Staphylococcus aureus 08/09/20 05:22 Blood Culture - Final Blood No Growth after 144 hours Assessment and Plan (1) Left knee pain Current Visit: Yes Status: Acute Code(s): M25.562 - PAIN IN LEFT KNEE SNOMED Code(s): 6893904449 (2) Infection of total left knee replacement Current Visit: Yes Status: Acute Code(s): T84.54XA - INFECT/INFLM REACTION DUE TO INTERNAL LEFT KNEE PROSTH, INIT SNOMED Code(s): 496095615 Plan: 1. Most recent blood cultures are showing no growth. 2. Continue daily dressing changes. Patient is awaiting PICC line placement. IV antibiotics per infectious disease. 3. Appreciate input from internal medicine, cardiology, neurology and in fectious disease. 4. Will continue to follow. Recommend follow-up next week for staple removal.
[2020-08-15] MEDS: SODIUM CHLORIDE 0.9% 1,000 ML IV SCH ×2 (12:57→13:00)
--- NOTE | 2020-08-15 13:56 | P.PN ---
Subjective This is a 75-year-old male with a past medical history significant for hypertension, hyperlipidemia, diabetes mellitus, osteoarthritis, GERD, and cor onary artery disease. Patient follows in the office with Dr. Valencia. We have been asked to see the patient in consultation for cardiac clearance and LISA. Patient was recently hospitalized earlier this month secondary to inferior STEMI. He was taken to the manager lab but Dr. Vora was unsuccessful at advancing balloon or artherectomy after multiple attempts per his cath report. Echocardiogram completed at that time revealed ejection fraction of 25-30%. Patient was transferred to [facility] where he states he had two stents placed. He was placed on aspirin and plavix. Patient is status post incision and drainage of the left knee for septic arthritis. infectious disease, neurology is following patient 08/13/20: Patient seen and examined at bedside, no acute distress. Contniues to have neck pain. Positive blood cultures for staph aureus. Denies chest pain or chest discomfort, denies shortness of breath. Blood pressure 157/67, heart rate 91, afebrile, maintaining oxygen saturation 96% on 2 L nasal cannula. Laboratory data reviewed sodium 140, potassium 2.9, serum creatinine 1.15 08/14/20: Patient underwent LISA with Dr. Valencia which revealed, mildly dilated left atrium with normal appearance left atrial appendage, normal left ventricular size and systolic function, no evidence of shunting, no evidence of vegetations. Mild mitral, tricuspid with trace pulmonic regurgitation. 08/15/20: Patient seen and examined at bedside, no acute distress. Blood pressure 131/61, heart rate 88, afebrile, maintaining oxygen saturation 97% on room air laboratory data reviewed sodium 134, potassium 3.3, serum creatinine 1.45, magnesium 2.0 GENERAL: Frail. no acute distress. NECK: Supple without JVD or thyromegaly. LUNGS: Breath sounds clear to auscultation bilaterally. Respiration equal and unlabored. No wheezes, rales or rhonchi. HEART: Regular rate and rhythm without murmurs, rubs or gallops. S1 and S2 heard. EXTREMITIES: Left knee is tender and swollen, slightly decreased ROM ASSESSMENT: Septic arthritis of left knee Acute kidney injury Recent inferior STEMI Coronary artery disease with PCI to RCA Abnormal troponins, no evidence of ACS Ischemic cardiomyopathy, EF 25-30% Hypertension Hyperlipidemia Diabetes mellitus Hypokalemia- currently being replaced PLAN: LISA performed yesterday with results as above. We will sign off at this time. Please reach out with any other questions or concerns. Thank you kindly for this consultation. Objective - Vital Signs Vital signs: Vital Signs Temp 98.4 F 08/15/20 12:55 Pulse 88 08/15/20 12:55 Resp 18 08/15/20 12:55 BP 131/61 08/15/20 12:55 Pulse Ox 97 08/15/20 12:55 Intake & Output 08/14/20 08/15/20 08/15/20 18:59 06:59 18:59 Intake Total 1957 120 Output Total 450 875 Balance 1507 -875 120 Weight 123 kg 123 kg Intake: IV 1420 Magnesium Sulfate-D5w Pmx 100 1 gm In Dextrose/Water 1 100ml.bag @ 100 mls/hr IVPB Q1H LAURA Rx#: [id number] Nafcillin 2 gm In 300 Dextrose 5% in Water 100 ml @ 50 mls/hr IVPB Q4HR LAURA Rx#:[id number] Potassium Chloride 10 meq 600 In Water For Injection 1 100ml.bag @ 100 mls/hr IVPB Q1HR LAURA Rx#: [id number] Sodium Chloride 0.9% 1, 220 000 ml @ 20 mls/hr IV . Q24H LAURA Rx#:[id number] Oral 537 120 Output: Urine 450 875 Other: Voiding Method Indwelling Catheter Indwelling Catheter Indwelling Catheter # Bowel Movements 1 - Labs CBC & Chem 7: 08/15/20 08:44 08/15/20 08:44 Labs: Abnormal Lab Results - Last 24 Hours (Table) 08/14/20 08/14/20 08/15/20 Range/Units 16:20 20:04 06:24 RBC (4.30-5.90) m/uL Hgb (13.0-17.5) gm/dL Hct (39.0-53.0) % Sodium (137-145) mmol/L Potassium (3.5-5.1) mmol/L Creatinine (0.66-1.25) mg/dL Glucose (74-99) mg/dL POC Glucose (mg/dL) 143 H 228 H 156 H (75-99) mg/dL Calcium (8.4-10.2) mg/dL 08/15/20 08/15/20 08/15/20 Range/Units 08:44 08:44 11:17 RBC 2.70 L (4.30-5.90) m/uL Hgb 8.8 L (13.0-17.5) gm/dL Hct 25.7 L (39.0-53.0) % Sodium 134 L (137-145) mmol/L Potassium 3.3 L (3.5-5.1) mmol/L Creatinine 1.45 H (0.66-1.25) mg/dL Glucose 129 H (74-99) mg/dL POC Glucose (mg/dL) 128 H (75-99) mg/dL Calcium 10.5 H (8.4-10.2) mg/dL 08/15/20 Range/Units 11:51 RBC (4.30-5.90) m/uL Hgb (13.0-17.5) gm/dL Hct (39.0-53.0) % Sodium (137-145) mmol/L Potassium (3.5-5.1) mmol/L Creatinine (0.66-1.25) mg/dL Glucose (74-99) mg/dL POC Glucose (mg/dL) 127 H (75-99) mg/dL Calcium (8.4-10.2) mg/dL Microbiology - Last 24 Hours (Table) 08/13/20 10:06 Blood Culture - Preliminary Blood No Growth after 48 hours 08/14/20 08:41 Blood Culture - Preliminary Blood No Growth after 24 hours 08/11/20 07:45 Blood Culture Gram Stain - Final Blood Blood Culture - Final Staphylococcus aureus 08/09/20 05:22 Blood Culture - Final Blood No Growth after 144 hours
[2020-08-15 16:46] LABS: Glucose,Whole Blood 169 mg/dL (75-99)
--- NOTE | 2020-08-15 18:27 | PN ---
PROGRESS NOTE DATE OF SERVICE: O08/15/2020 REASON FOR FOLLOWUP: MSSA bacteremia and left knee septic arthritis. INTERVAL HISTORY: The patient is currently afebrile. The patient is breathing comfortably. The patient denies having any chest pain, shortness of breath or cough. No abdominal pain or diarrhea. PHYSICAL EXAMINATION: Blood pressure 156/67, pulse of 91, temperature 97.5. He is 97% on room air. General description is an elderly male lying in bed in no distress. RESPIRATORY SYSTEM: Unlabored breathing. Clear to auscultation anteriorly. HEART: S1, S2. Regular rate and rhythm. ABDOMEN: Soft. No tenderness. LABS: Hemoglobin 8.9, white count 7.7, BUN of 20, creatinine 1.45. Blood cultures from 08/13 are so far negative. DIAGNOSTIC IMPRESSION AND PLAN: Patient with persistent MSSA bacteremia in this patient who seemed to have finally cleared his bacteremia with blood cultures on 08/13 negative. If they remain negative by tomorrow, I recommend getting a PICC line. Antibiotic will be transitioned to cefazolin 2 grams q.8 hours for another 6 weeks with close outpatient followup. MMODL / IJN: [id number] /
[2020-08-15 20:11] LABS: Glucose,Whole Blood 172 mg/dL (75-99)
[2020-08-15] MEDS: INSULIN DETEMIR (LEVEMIR) 100 UNIT/ML SYR SQ SCH (21:17)
[2020-08-16] MEDS: NAFCILLIN 2 GM in DEXTROSE 5% IN WATER 100 ML IVPB SCH ×6 (03:21→11:36)
[2020-08-16 04:16] LABS: Protein, Total 4.7 g/dL (6.2-8.2)
[2020-08-16 06:13] LABS: Glucose,Whole Blood 135 mg/dL (75-99)
[2020-08-16] MEDS: INSULIN ASPART (NovoLOG) 100 UNIT/ML VIAL SQ SCH ×2 (06:30→12:12)
[2020-08-16] MEDS: IPRATROPIUM-ALBUTEROL 3 ML NEB INHALATION SCH ×2 (07:02→10:50)
--- NOTE | 2020-08-16 07:55 | P.DS ---
Providers Date of admission: 08/05/20 20:02 Expected date of discharge: 08/16/20 Attending physician: German Astudillo Consults: 08/05/20 20:03 Consult Physician Urgent Consulting Provider: Raji Choi Consult Reason/Comments: Septic arthritis Do you want consulting provider notified?: Already Contacted Consult Physician Urgent Consulting Provider: Yessy Strickland Consult Reason/Comments: Septic arthritis Do you want consulting provider notified?: Yes 08/06/20 08:15 Consult Physician Stat Consulting Provider: [facility] Consult Reason/Comments: CARDIAC CLEARANCE Do you want consulting provider notified?: Yes 08/07/20 14:32 Consult Physician Routine Consulting Provider: Cait Edge Consult Reason/Comments: NIMCO Do you want consulting provider notified?: Yes 08/08/20 09:05 Consult Physician Urgent Consulting Provider: Carey Damian Consult Reason/Comments: Eval neck pain, BUE weakness Do you want consulting provider notified?: Yes 08/08/20 09:24 Consult Physician Urgent Consulting Provider: Doris Adkins Consult Reason/Comments: Eval neck pain Do you want consulting provider notified?: Yes 08/08/20 12:02 Consult Physician Urgent Consulting Provider: Wisam Hartman Consult Reason/Comments: gastric distension Do you want consulting provider notified?: Yes Primary care physician: German Astudillo [facility] 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 as well as radio frequency ablation, prostate cancer status post radiation therapy, patient took himself off the Plavix due to significant bruising and bleeding against his etymology professor recommendation and he was taken a baby aspirin alone, patient presented to the emergency department at [facility] on 07/28/2020 with what appears to be an inferior wall ST elevation myocardial infarction patient was taken to the laboratory helper and an attempted angioplasty of a computed occluded RCA had failed and the patient was transferred to [facility] for complex angioplasty of the occluded RCA, apparently patient did have 2 stents placement in the RCA and he was discharged from [facility] and patient has been getting more at all with poor appetite and his having some issues with his left knee not able to walk on the knee associated with knee buckling and locking patient had lost his appetite, he ended up coming to the emergency department at [facility] today after his daughter contacted by staff and they directed her to go to the emergency department for evaluation of possible septic knee, patient was seen and evaluated in the ER he had temperature and his white count were normal, her d- dimer was elevated his troponin was slightly elevated as well, patient was started on IV antibiotic in the form of vancomycin as well as Zosyn, blood cultures will be obtained, aspiration of the left knee showed cloudy fluid the result of which still pending at the time of dictation orthopedic surgery consultation was obtained from Dr. Choi, patient will be admitted to hospital for further evaluation, his platelet count were down to 62,000 and his lactic acid was elevated suggestive of sepsis. 08/06: Patient is seen today in follow-up. COVID-[address] angios the chest showed no large central pulmonary emboli. Motion artifact of the bilateral lungs without focal airspace opacities. Fatty liver. Venous ultrasound was negative for DVT of the left lower extremity. Patient's home m edication list needs to be updated. Will add and Lantus 18 units at bedtime, Plavix 75 mg daily, Januvia. Patient's nurse was updated that the patient's medication list needs to be confirmed. He has been seen by Dr. Choi and plan for I&D of the left knee today. Patient is currently on vancomycin IV and Zosyn. Patient has been afebrile, heart rate 104, respiratory rate 26, blood pressure 125/65, pulse ox 96% on room air. Repeat lactic acid is 8.3. Repeat troponin 3.790. WBC 7.7, hemoglobin 10.6. Sodium 128, potassium 3.5, chloride 98, CO2 18, BUN 25 and creatinine 1.62. Blood sugar 317. Calcium 7.6. Magnesium 1.8. Total bilirubin 3.1, AST 85, ALT 55, alkaline phosphatase 37. Fluid studies reveal RBC 3600, nucleated cells 62,000, polynuclear WBCs 85, and mononuclear WBCs 15, glucose 104, total protein 3330. Crystals pending. Consult also in place with cardiology and Dr. Strickland. 08/07: Has been afebrile, heart rate 103, blood pressure 116/61, pulse ox 96% on 2 L nasal cannula. Repeat troponins were 4.390 and 5.6. Blood sugars are running between 178 and 222. Blood culture is presumptive staph aureus on 2 specimens and fluid culture from the knee is also presumptive staph aureus. Repeat blood culture will be ordered today. Fluid analysis showed no crystals. Patient has been seen by cardiology and cleared for surgery. Patient subsequently underwent incision and drainage of the left total knee. The patient has also been followed by Dr. Chacon 8 and covered with antibiotics on Kefzol 2 g IV piggyback every 8 hours. Repeat blood work reveals WBC of 8.4, he moglobin 9.8, platelet count 75. Sodium 131, potassium 3.9, chloride 99, CO2 19, BUN 43 and creatinine 3.02. Blood sugars are running between 178 and 222. Total bilirubin 1.7, AST 152, ALT 59. Troponin is 7.420. Radiology continues to follow. Diovan will be discontinued and consult placed with nephrology. 08/08: Patient is feeling more sick today with increased abdominal distention and increased hiccups, he is having very poor appetite is not able to tolerate his diet, he is requiring oxygen, chest x-ray and abdominal x-ray showed a gastric outlet obstruction, NG tube was placed and surgical consultation was obtained, continue IV fluid, patient will be seen in consultation by ICU for possible transfer to the intensive care unit due to his multiple medical issues. 08/09: Patient is laying down in bed he is feeling a bit better today he continues to have his NG tube in place, his stomach is less distended, less and she output, patient was started on heparin drip, he would be started on aspirin 300 mg per rectum, since is nothing by mouth we will start the patient on Lopressor 2.5 mg IV push every 6 hours around the clock hold for systolic blood pressure less than 100 or heart rate less than 55, patient has been followed by infectious disease, cardiology, pulmonary, as well as general surgery, we will maintain the patient on current treatment plan, we'll continue to follow very closely. 08/10: Patient is laying down but he continues to have significant pain in the cervical spine as well as lumbar spine is not able to move around much, he continues to have a lot of muscle spasm, no fever or chills, he was switched to nafcillin every 4 hours due to the fact that he has Staphylococcus aureus, his Drano out of the left knee is not having much drainage hopefully would be pulled today, patient's pain is not controlled very well, his NG tube was removed, his nothing per mouth, continue with heparin drip, continue with aspirin per rectum, he has no chest pain or shortness breath at this time he has no abdominal pain, he has no nausea or vomiting, we will start the patient on fentanyl patch 12 MCG once every 72 hours, monitor the patient very closely, continue with physical therapy evaluation. 08/11: Patient is sitting up in a recliner chair his in a lot of pain continue to have a significant neck spasm, he did receive Flexeril without any benefit, we will start the patient on Robaxin 750 mg orally 3 times every day continue fentanyl patch, continue with current pain management, there is no evidence of any discitis at this point in time continue IV antibiotic in the form of nafcillin, patient is scheduled to go for EGD tomorrow morning. Patient is nothing per mouth at this point except medication. 08/12: Patient is sitting up in bed, continues to be somewhat confused, he had no chest pain or shortness breath, he has no abdominal pain, he continues to be somewhat distended, his nothing per mouth so far his scheduled for EGD today, patient will likely require subacute rehabilitation, he continues to have increased swelling in both lower extremities as well as scrotum, blood cultures was repeated still pending at the time of dictation we have to wait until the negative blood culture before he has a PICC line placement. 08/13: Patient is sitting up in bed in no significant distress today he continues to be somewhat short of breath, he continues to have increased swelling in both upper extremities and lower extremities along with a scrotum, he would be given Lasix 40 mg IV push 1, decrease IV fluid to KVO, monitor the patient very closely, patient underwent EGD yesterday that showed duodenitis and gastritis with minimal erosions and small hiatal hernia, he shouldn't has no chest pain today he denies any coughing or hemoptysis, he continues to have some abdominal distention, he did have a bowel movement, he appears a bit confused today the plan at is to have a transesophageal echo care gram for persistent bacteremia with Staphylococcus aureus . 08/14: Patient is scheduled for LISA today with cardiology. Biopsy from EGD report is pending. Patient has Shelley catheter in place. He had a total of 1500 output yesterday after Lasix. He continues to have significant scrotal edema. Patient had 2 liquid bowel movements yesterday. His potassium at midnight was 2.9 and he received another 80 mEq of potassium and nephrology is managing. Repeat potassium is pending. CBC reveals WBC 6.6, hemoglobin 9.2, platelet count 208. All blood cultures are showing staph aureus and repeat blood culture obtained today. Patient is followed by infectious disease and continued on nafcillin. Patient continues to have increased weakness of the left leg and encouraged to be out of bed in the afternoon. Patient will require subacute rehab at the time of discharge. Patient has been afebrile, heart rate 74, blood pressure 141/66, pulse ox 95% on room air. 08/15: LISA performed yesterday by Dr. Valencia showed no vegetation, no shunting. Repeat blood culture obtained on August 13 are showing no growth at 24 hours. Yesterday, a repeat blood culture was also obtained which is in process. Patient has been afebrile, heart rate 89, blood pressure 125/65, pulse ox 96% on room air. Blood sugars are running between 143 and 228. Repeat potassium yesterday afternoon was 3.5 and last night was 3.6. Repeat laboratory studies for this morning are still pending at 9 AM. Patient continues to have significant weakness. He is encouraged to get out of bed and sit in his chair several times a day. If blood culture remains without growth by tomorrow morning, PICC line will be ordered for tomorrow morning with anticipation of [facility] to [facility] in the next 24 hours. Discharge plan is to [facility] or [facility]. 08/16: Pathology report from EGD revealed stomach biopsy mild chronic erosive and focally active gastritis. Duodenal biopsy revealed reactive duodenitis the with foveolar metaplasia and grinder needle tip gland hyperplasia. Negative for celiac disease. Specimens negative for H. pylori. The differential diagnosis of the duodenal findings seen includes infectious etiology, medication effect and peptic duodenitis secondary to Helicobacter. Blood culture from August 13 continues to show no growth and PICC line insertion will be ordered if cleared by Dr. Strickland. Repeat blood culture from August 14 is also showing no growth at 24 hours. He has been afebrile, heart rate 80, blood pressure 143/82, pulse ox 90% on room air. Blood sugars are running between 135 and 172. Protein electrophoresis 4.7. Vitamin D 29.9. Parathyroid hormone intact 2.5. Blood work obtained yesterday revealed hemoglobin of 8.8. Sodium 134, potassium 3.3. Creatinine 1.45. Magnesium 2. Calcium 10.5. Dr. Strickland has recommended antibiotics the form of Kefzol 2 g IV piggyback every 8 hours for 6 weeks. Patient continues to have significant weakness and requires 2-3 person assist to get out of bed. Lasix IV 40 mg x1 ordered for lower extremity edema and will be continued on low dose at the [facility]. Patient will be discharged to subacute rehab today in stable condition. ASSESSMENT AND PLAN: 1. Septic arthritis of the left knee with persistent MSSA bacteremia status post incision and drainage of the left total knee. 2. Lactic acidosis due to sepsis. Resolved. 3. Thrombocytopenia area and likely related to sepsis Resolved. 4. Recent left heart catheterization with PCI of the RCA on 07/30/2020. 5. Elevated troponin, acute coronary syndrome ruled out by cardiology. 6. Recent inferior wall ST elevation AL. 7. Acute kidney injury secondary to acute tubular necrosis and hypotension with possible sepsis induced and contrast-induced nephropathy. 8. Abdominal distention with ileus ruled out post EGD finding duodenitis with erosions, gastritis with erosions and small hiatal hernia. 9. Hypertension and hypertensive cardiovascular disease. 10. Hyperlipidemia. 11. Diabetes mellitus type 2. 11. History of prostate cancer status post rotation. 12. 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 13. Medical debility. 12. Anasarca with fluid overload. DISCHARGE PLAN: Subacute rehab at [facility] or [facility]. Impression and plan of care have been directed as dictated by the signing physician. Padma Monsalve nurse practitioner acting as scribe for signing physician. Patient Condition at Discharge: Stable Plan - Discharge Summary New Discharge Prescriptions: New Ipratropium-Albuterol Nebulize [Duoneb 0.5 mg-3 mg/3 ml Soln] 3 ml INHALATION RT-QID PRN ml PRN Reason: Shortness Of Breath Or Wheezing fentaNYL 12MCG/HR PATCH [Duragesic 12MCG/HR] 1 patch TRANSDERM Q72H #1 patch Insulin Detemir (Levemir) [Levemir] 22 unit SQ HS syr INSULIN ASPART (NovoLOG) [NovoLOG (formulary)] 0 unit SQ ACHS vial Pantoprazole [Protonix] 40 mg PO BID tablet. methocarbamoL [Robaxin] 750 mg PO TID PRN tab PRN Reason: Muscle Spasm Acetaminophen Tab [Tylenol] 1,000 mg PO Q6HR PRN tab PRN Reason: Fever>101 HYDROcodone/APAP 10-325MG [[place] 10-325] 1 tab PO BID 3 Days #6 tab Metoprolol Tartrate [Lopressor] 50 mg PO BID tab Clopidogrel [Plavix] 75 mg PO DAILY tab ceFAZolin [Kefzol] 2,000 mg IVPB Q8HR #126 vial Furosemide [Lasix] 20 mg PO DAILY #30 tab Continue Atorvastatin Calcium [Lipitor] 80 mg PO DAILY@0900 Aspirin [Bruni Aspirin EC] 81 mg PO DAILY@0900 Discontinued Valsartan/Hydrochlorothiazide [Valsartan-Hctz 320-12.5 mg Tab] 1 tab PO DAILY@1800 Isosorbide Mononitrate ER [Imdur] 60 mg PO DAILY@0900 Atenolol [Tenormin] 50 mg PO DAILY@0900 Discharge Medication List Atorvastatin Calcium [Lipitor] 80 mg PO DAILY@0900 11/01/14 [History] Aspirin [Bruni Aspirin EC] 81 mg PO DAILY@0900 08/05/20 [History] Acetaminophen Tab [Tylenol] 1,000 mg PO Q6HR PRN tab 08/16/20 [Rx] Clopidogrel [Plavix] 75 mg PO DAILY tab 08/16/20 [Rx] Furosemide [Lasix] 20 mg PO DAILY #30 tab 08/16/20 [Rx] HYDROcodone/APAP 10-325MG [[place] 10-325] 1 tab PO BID 3 Days #6 tab 08/16/20 [Rx] INSULIN ASPART (NovoLOG) [NovoLOG (formulary)] 0 unit SQ ACHS vial 08/16/20 [Rx] Insulin Detemir (Levemir) [Levemir] 22 unit SQ HS syr 08/16/20 [Rx] Ipratropium-Albuterol Nebulize [Duoneb 0.5 mg-3 mg/3 ml Soln] 3 ml INHALATION RT-QID PRN ml 08/16/20 [Rx] Metoprolol Tartrate [Lopressor] 50 mg PO BID tab 08/16/20 [Rx] Pantoprazole [Protonix] 40 mg PO BID tablet. 08/16/20 [Rx] ceFAZolin [Kefzol] 2,000 mg IVPB Q8HR #126 vial 08/16/20 [Rx] fentaNYL 12MCG/HR PATCH [Duragesic 12MCG/HR] 1 patch TRANSDERM Q72H #1 patch 08/16/20 [Rx] methocarbamoL [Robaxin] 750 mg PO TID PRN tab 08/16/20 [Rx] Follow up Appointment(s)/Referral(s): Jesse Donald PAC [PHYSICIAN SUPERVISOR PIGMENT MAKING] - As Needed (Patient may follow-up with Jesse Donald PA-C or Dr. Brian Adkins at [facility] on an as-needed basis following discharge. ) Raji Choi DO [Doctor of Osteopathic Medicine] - 1 Week German Astudillo MD [Primary Care Provider] - 1 Week (at [facility]) Ambulatory/Diagnostic Orders: Basic Metabolic Panel [LAB.AMB] Location: None Selected C Reactive Protein [LAB.AMB] Location: None Selected Complete Blood Count w/diff [LAB.AMB] Location: None Selected Erythrocyte Sedimentation Rate [LAB.AMB] Location: None Selected Activity/Diet/Wound Care/Special Instructions: Maintain Shelley cath. Will be discontinued at [facility]. Please follow [facility] with [facility] in one week for staple removal and call with any questions or concerns, . Discharge Disposition: TRANSFER TO SNF/ECF
[2020-08-16 08:03] VITALS: BP 152/67; PULSE 86; RESP 22; TEMP 99.1
[2020-08-16] MEDS ORDERED: FUROSEMIDE 10 MG/ML 4 ML VIAL IV STA (08:09)
[2020-08-16 08:20] LABS: Angiotensin-1 Converting Enz. 21 U/L (8-52)
--- NOTE | 2020-08-16 08:23 | P.PN ---
Subjective Progress Note Date: 08/14/20 Principal diagnosis: Septic arthritis left knee. Bacteremia. Neck pain. Bilateral upper extremity weakness. History of total left knee arthroplasty. Status post cardiac catheterization. This is a 75-year-old gentleman that presented to emergency room on 08/05/2020 with new onset left knee pain. The pain had become worse over the past week or so since he's had a recent cardiac catheterization. The knee was aspirated by the emergency room department and purulent fluid was removed with high nucleated cell count in the fluid. Patient also has positive blood cultures. After discussing the surgical and nonsurgical treatment options with him at length, it was recommended an incision and drainage of the knee with retention of the implants. The patient was taken to the operating room on 08/06/2020 for I&D of the left knee. 08/14/2020: This is a 75-year-old male who is admitted with septicemia and blood cultures positive for staph aureus. Patient is status post incision and drainage of the left knee for septic arthritis. This is postoperative day #8. Patient is seen and evaluated at bedside today. Patient is alert, but somewhat confused this morning. Patient states that he has occasional discomfort in the left knee when he stands to transfer to a chair. Otherwise, patient states that he is doing well regarding the left knee. He states that his neck pain is improved. Patient is is NPO for a LISA today. Patient denies any new complaints today. Vital signs are stable. Objective - Vital Signs Vital signs: Vital Signs Temp 99.6 F 08/14/20 04:40 Pulse 74 08/14/20 04:40 Resp 18 08/14/20 04:40 BP 141/66 08/14/20 04:40 Pulse Ox 95 08/14/20 04:40 Intake & Output 08/13/20 08/14/20 08/14/20 18:59 06:59 18:59 Intake Total 961 3360 Output Total 1900 2150 Balance -939 1210 Weight 120.5 kg Intake: IV 10 1960 Invasive Line 7 10 Magnesium Sulfate-D5w Pmx 400 1 gm In Dextrose/Water 1 100ml.bag @ 100 mls/hr IVPB Q1H [facility] Rx#: [id number] Nafcillin 2 gm In 600 Dextrose 5% in Water 100 ml @ 50 mls/hr IVPB Q4HR [facility] Rx#:[id number] Potassium Chloride 20 meq 700 In Water For Injection 1 100ml.bag @ 50 mls/hr IVPB Q2H [facility] Rx#: [id number] Sodium Chloride 0.9% 1, 260 000 ml @ 20 mls/hr IV . Q24H [facility] Rx#:[id number] Oral 951 1400 Output: Urine 1900 2150 Other: Voiding Method Indwelling Catheter Indwelling Catheter - Exam This is a pleasant 75-year-old male in no acute distress. He is alert with some confusion. He is not wearing his cervical collar at this time. His cervical rotation is slightly improved with less pain. Exam of the lower extremities reveals that his incision is healing well. There is no erythema. There is minimal active drainage from the Hemovac drain site. He has full foot and ankle motion without difficulty or pain. Neurovascular status to the lower extremities is intact. - Labs CBC & Chem 7: 08/15/20 08:44 08/15/20 08:44 Labs: Abnormal Lab Results - Last 24 Hours (Table) 08/13/20 08/13/20 08/13/20 Range/Units 10:06 11:58 16:51 RBC (4.30-5.90) m/uL Hgb (13.0-17.5) gm/dL Hct (39.0-53.0) % Lymphocytes # (1.0-4.8) k/uL Potassium 2.9 L (3.5-5.1) mmol/L Chloride 110 H (98-107) mmol/L BUN 22 H (9-20) mg/dL Glucose 142 H (74-99) mg/dL POC Glucose (mg/dL) 142 H 347 H (75-99) mg/dL 08/13/20 08/14/20 08/14/20 Range/Units 19:52 00:44 00:44 RBC 2.80 L (4.30-5.90) m/uL Hgb 9.2 L (13.0-17.5) gm/dL Hct 26.4 L (39.0-53.0) % Lymphocytes # 0.3 L (1.0-4.8) k/uL Potassium 2.9 L (3.5-5.1) mmol/L Chloride (98-107) mmol/L BUN 21 H (9-20) mg/dL Glucose 107 H (74-99) mg/dL POC Glucose (mg/dL) 335 H (75-99) mg/dL 08/14/20 Range/Units 06:31 RBC (4.30-5.90) m/uL Hgb (13.0-17.5) gm/dL Hct (39.0-53.0) % Lymphocytes # (1.0-4.8) k/uL Potassium (3.5-5.1) mmol/L Chloride (98-107) mmol/L BUN (9-20) mg/dL Glucose (74-99) mg/dL POC Glucose (mg/dL) 128 H (75-99) mg/dL Microbiology - Last 24 Hours (Table) 08/09/20 05:22 Blood Culture - Preliminary Blood No Growth after 120 hours 08/07/20 17:45 Blood Culture - Final Blood No Growth after 144 hours 08/11/20 07:45 Blood Culture Gram Stain - Preliminary Blood Blood Culture - Preliminary Presumptive Staph aureus Assessment and Plan (1) Infection of total left knee replacement Current Visit: Yes Status: Acute Code(s): T84.54XA - INFECT/INFLM REACTION DUE TO INTERNAL LEFT KNEE PROSTH, INIT SNOMED Code(s): 719337286 (2) Left knee pain Current Visit: Yes Status: Acute Code(s): M25.562 - PAIN IN LEFT KNEE SNOMED Code(s): 0538213562 (3) Septic arthritis Current Visit: Yes Status: Acute Code(s): M00.9 - PYOGENIC ARTHRITIS, UNSPECIFIED SNOMED Code(s): 029621624 (4) S/P total knee arthroplasty Current Visit: No Status: Acute Code(s): Z96.659 - PRESENCE OF UNSPECIFIED ARTIFICIAL KNEE JOINT SNOMED Code(s): 4589975370686 (5) Neck pain Current Visit: Yes Status: Acute Code(s): M54.2 - CERVICALGIA SNOMED Code(s): 64453374 (6) Weakness of both upper extremities Current Visit: Yes Status: Acute Code(s): R29.898 - OTH SYMPTOMS AND SIGNS INVOLVING THE MUSCULOSKELETAL SYSTEM SNOMED Code(s): 15535197434099091 Plan: The clinical findings are discussed with the patient. Dressing is changed today. No immediate plans for surgical intervention of the left knee. Continue c urrent care and appreciate recommendations for multiple specialists on consult.
[2020-08-16] MEDS ORDERED: HYDROcodone/APAP 10-325MG 1 EACH TAB PO SCH (09:00)
[2020-08-16 09:04] LABS: Albumin 2.4 g/dL (3.5-5.0); Calcium 10.4 mg/dL (8.4-10.2); Magnesium 1.7 mg/dL (1.6-2.3); Potassium 3.8 mmol/L (3.5-5.1); Total Bilirubin 1.3 mg/dL (0.2-1.3); Total Protein 5.3 g/dL (6.3-8.2)
[2020-08-16] MEDS: ASPIRIN 81 MG PO SCH (09:10)
[2020-08-16] MEDS: CLOPIDOGREL 75 MG TAB PO SCH (09:10)
[2020-08-16] MEDS: ATORVASTATIN 80 MG TAB PO SCH (09:10)
[2020-08-16] MEDS: PANTOPRAZOLE 40 MG TABLET PO SCH (09:11)
[2020-08-16] MEDS: METOPROLOL TARTRATE 50 MG TAB PO SCH (09:11)
[2020-08-16] MEDS: ENOXAPARIN 40 MG/0.4 ML SYRINGE SQ SCH (09:12)
[2020-08-16] MEDS: SODIUM CHLORIDE 0.9% 1,000 ML IV SCH (09:23)
[2020-08-16] MEDS ORDERED: LIDOCAINE 1% INJ 10MG/ML (20 ML MDV) SQ ONE (09:57)
--- NOTE | 2020-08-16 10:51 | IR ---
EXAMINATION TYPE: IR cvc insert >=5 years DATE OF EXAM: 08/16/2020 COMPARISON: NONE CLINICAL HISTORY: Infection Needs long-term intravenous access for antibiotics. PROCEDURE: Hand hygiene obtained with soap and water and alcohol-based hand rub. After informed consent, the skin overlying the left basilic vein was localized with ultrasound and no angelita to be compressible and patent. An ultrasound image was obtained and submitted on the patient's c lilly. The overlying skin was prepped and draped and Lidocaine was used for local anesthesia. A skin miah was made with a scalpel. Access was gained to the vein under ultrasound guidance with a 21 gau ge needle and a 0.018 inch wire was advanced. Access site was dilated with Peel-Away sheath and cath eter tailored to the appropriate length and advanced such that the distal tip is at the cavoatrial ju nction. Spot image was obtained verifying placement. Catheter was fixed to the skin and a sterile d ressing was placed following hemostasis. Catheter was aspirated and flushed with saline. Patient wa s discharged in stable condition without complication. Maximal barrier technique is utilized. Ultras ound image is documented on the chart. Ultrasound used with sterile technique. Fluoro time and fluoroscopic images submitted to document procedure: Routine intraoperative C-arm daina ges, 0.1 minutes fluoroscopy time IMPRESSION: STATUS POST ULTRASOUND AND FLUOROSCOPIC GUIDED PICC LINE PLACEMENT, READY FOR USE. THIS PROCEDURE WAS PERFORMED BY THE UNDERSIGNED.
[2020-08-16] MEDS: methocarbamoL 750 MG TAB PO PRN (11:37)
[2020-08-16 12:16] LABS: Glucose,Whole Blood 157 mg/dL (75-99)
--- NOTE | 2020-08-16 12:36 | P.PN ---
Subjective Progress Note Date: 08/16/20 This is a 75-year-old male who is admitted with septicemia and blood cultures positive for staph aureus. Patient is status post incision and drainage of the left knee for septic arthritis. This is postoperative day #10. Patient is seen and evaluated at bedside today. Patient denies any new complaints today. Most recent blood cultures have been negative. Patient had a PICC line placed today and is being discharged to [facility]. Objective - Vital Signs Vital signs: Vital Signs Temp 99.1 F 08/16/20 08:02 Pulse 86 08/16/20 11:20 Resp 22 08/16/20 11:20 BP 152/67 08/16/20 08:02 Pulse Ox 100 08/16/20 08:02 Intake & Output 08/15/20 08/16/20 08/16/20 18:59 06:59 18:59 Intake Total 750 650 200 Output Total 400 1150 1300 Balance 350 -500 -1100 Weight 123 kg 123.5 kg Intake: IV 200 50 Nafcillin 2 gm In 200 50 Dextrose 5% in Water 100 ml @ 50 mls/hr IVPB Q4HR [facility] Rx#:[id number] Intake, IV Titration 450 150 Amount Sodium Chloride 0.9% 1, 450 150 000 ml @ 50 mls/hr IV . Q20H [facility] Rx#:[id number] Oral 750 Output: Urine 400 1150 1300 Other: Voiding Method Indwelling Catheter Indwelling Catheter Indwelling Catheter - Exam Vital signs are stable. Patient is in no acute distress. Patient is alert. Calf is soft and nontender to palpation. Dressing is clean, dry, and intact. Surgical clips are intact. There is no erythema or ecchymosis. Patient has full foot and ankle motion without pain or difficulty. Neurovascular status and circulatory status are intact. - Labs CBC & Chem 7: 08/15/20 08:44 08/16/20 07:39 Labs: Abnormal Lab Results - Last 24 Hours (Table) 08/15/20 08/15/20 08/15/20 Range/Units 11:45 11:45 11:45 Sodium (137-145) mmol/L Carbon Dioxide (22-30) mmol/L Creatinine (0.66-1.25) mg/dL Glucose (74-99) mg/dL POC Glucose (mg/dL) (75-99) mg/dL Calcium (8.4-10.2) mg/dL Total Protein (6.3-8.2) g/dL Total Protein (PEP) 4.7 L (6.2-8.2) g/dL Albumin (3.5-5.0) g/dL Vitamin D 25-Hydroxy 29.9 L (30.0-100.0) ng/mL PTH Intact 2.5 L (14.0-72.0) pg/mL 08/15/20 08/15/20 08/16/20 Range/Units 16:43 20:08 06:11 Sodium (137-145) mmol/L Carbon Dioxide (22-30) mmol/L Creatinine (0.66-1.25) mg/dL Glucose (74-99) mg/dL POC Glucose (mg/dL) 169 H 172 H 135 H (75-99) mg/dL Calcium (8.4-10.2) mg/dL Total Protein (6.3-8.2) g/dL Total Protein (PEP) (6.2-8.2) g/dL Albumin (3.5-5.0) g/dL Vitamin D 25-Hydroxy (30.0-100.0) ng/mL PTH Intact (14.0-72.0) pg/mL 08/16/20 08/16/20 Range/Units 07:39 12:03 Sodium 133 L (137-145) mmol/L Carbon Dioxide 20 L (22-30) mmol/L Creatinine 1.36 H (0.66-1.25) mg/dL Glucose 110 H (74-99) mg/dL POC Glucose (mg/dL) 157 H (75-99) mg/dL Calcium 10.4 H (8.4-10.2) mg/dL Total Protein 5.3 L (6.3-8.2) g/dL Total Protein (PEP) (6.2-8.2) g/dL Albumin 2.4 L (3.5-5.0) g/dL Vitamin D 25-Hydroxy (30.0-100.0) ng/mL PTH Intact (14.0-72.0) pg/mL Microbiology - Last 24 Hours (Table) 08/13/20 10:06 Blood Culture - Preliminary Blood No Growth after 72 hours 08/15/20 08:44 Blood Culture - Preliminary Blood No Growth after 24 hours 08/14/20 08:41 Blood Culture - Preliminary Blood No Growth after 48 hours 08/11/20 07:45 Blood Culture Gram Stain - Final Blood Blood Culture - Final Staphylococcus aureus Assessment and Plan (1) Left knee pain Current Visit: Yes Status: Acute Code(s): M25.562 - PAIN IN LEFT KNEE SNOMED Code(s): 6801741561 (2) Infection of total left knee replacement Current Visit: Yes Status: Acute Code(s): T84.54XA - INFECT/INFLM REACTION DUE TO INTERNAL LEFT KNEE PROSTH, INIT SNOMED Code(s): 213492584 Plan: 1. Blood cultures are negative. 2. Continue daily dressing changes. Patient had a PICC line placed. IV antibiotics per infectious disease. 3. Patient is being discharged to [facility] today. Recommend follow-up next week for staple removal.
--- NOTE | 2020-08-16 13:13 | P.PN ---
Subjective Patient is seen in follow-up for acute kidney injury. Renal function stable. Hemodynamically stable. Nonoliguric. Denies chest pain or shortness of breath. Potentially going to rehab today. Vital signs are stable. General: The patient appeared well nourished and normally developed. HEENT: Head exam is unremarkable. Neck is without jugular venous distension. LUNGS: Breath sounds decreased. HEART: Rate and Rhythm are regular. ABDOMEN: Soft, nontender. EXTREMITITES: Trace edema. Objective - Vital Signs Vital signs: Vital Signs Temp 99.1 F 08/16/20 08:02 Pulse 86 08/16/20 11:20 Resp 22 08/16/20 11:20 BP 152/67 08/16/20 08:02 Pulse Ox 100 08/16/20 08:02 Intake & Output 08/15/20 08/16/20 08/16/20 18:59 06:59 18:59 Intake Total 750 650 200 Output Total 400 1150 1300 Balance 350 -500 -1100 Weight 123 kg 123.5 kg Intake: IV 200 50 Nafcillin 2 gm In 200 50 Dextrose 5% in Water 100 ml @ 50 mls/hr IVPB Q4HR [facility] Rx#:[id number] Intake, IV Titration 450 150 Amount Sodium Chloride 0.9% 1, 450 150 000 ml @ 50 mls/hr IV . Q20H [facility] Rx#:[id number] Oral 750 Output: Urine 400 1150 1300 Other: Voiding Method Indwelling Catheter Indwelling Catheter Indwelling Catheter - Labs CBC & Chem 7: 08/15/20 08:44 08/16/20 07:39 Labs: Abnormal Lab Results - Last 24 Hours (Table) 08/15/20 08/15/20 08/15/20 Range/Units 11:45 11:45 11:45 Sodium (137-145) mmol/L Carbon Dioxide (22-30) mmol/L Creatinine (0.66-1.25) mg/dL Glucose (74-99) mg/dL POC Glucose (mg/dL) (75-99) mg/dL Calcium (8.4-10.2) mg/dL Total Protein (6.3-8.2) g/dL Total Protein (PEP) 4.7 L (6.2-8.2) g/dL Albumin (3.5-5.0) g/dL Vitamin D 25-Hydroxy 29.9 L (30.0-100.0) ng/mL PTH Intact 2.5 L (14.0-72.0) pg/mL 08/15/20 08/15/20 08/16/20 Range/Units 16:43 20:08 06:11 Sodium (137-145) mmol/L Carbon Dioxide (22-30) mmol/L Creatinine (0.66-1.25) mg/dL Glucose (74-99) mg/dL POC Glucose (mg/dL) 169 H 172 H 135 H (75-99) mg/dL Calcium (8.4-10.2) mg/dL Total Protein (6.3-8.2) g/dL Total Protein (PEP) (6.2-8.2) g/dL Albumin (3.5-5.0) g/dL Vitamin D 25-Hydroxy (30.0-100.0) ng/mL PTH Intact (14.0-72.0) pg/mL 08/16/20 08/16/20 Range/Units 07:39 12:03 Sodium 133 L (137-145) mmol/L Carbon Dioxide 20 L (22-30) mmol/L Creatinine 1.36 H (0.66-1.25) mg/dL Glucose 110 H (74-99) mg/dL POC Glucose (mg/dL) 157 H (75-99) mg/dL Calcium 10.4 H (8.4-10.2) mg/dL Total Protein 5.3 L (6.3-8.2) g/dL Total Protein (PEP) (6.2-8.2) g/dL Albumin 2.4 L (3.5-5.0) g/dL Vitamin D 25-Hydroxy (30.0-100.0) ng/mL PTH Intact (14.0-72.0) pg/mL Microbiology - Last 24 Hours (Table) 08/13/20 10:06 Blood Culture - Preliminary Blood No Growth after 72 hours 08/15/20 08:44 Blood Culture - Preliminary Blood No Growth after 24 hours 08/14/20 08:41 Blood Culture - Preliminary Blood No Growth after 48 hours 08/11/20 07:45 Blood Culture Gram Stain - Final Blood Blood Culture - Final Staphylococcus aureus Assessment and Plan Plan: Assessment: 1. Acute kidney injury mostly prerenal secondary to infection and lisinopril. Renal function a little better today. Creatinine 1.36. 2. Left knee septic arthritis with staph aureus bacteremia. On antibiotics. No vegetation noted on LISA. 3. Hypokalemia from poor intake and diuresis. Replace. Better. 4. Benign hypertension. Stable. 5. Difficulty swallowing. Improved. 6. Metabolic acidosis secondary to acute kidney injury and IVFs. 7. Diabetes mellitus. 8. Hypercalcemia. He's not on any vitamin D or calcium supplements. Calcium level 10.4 today. Vitamin D level 29.9. PTH appropriately suppressed. OBI normal. Plan: Resume Lasix 20 mg orally once daily. Avoid nephrotoxins. Continue to monitor renal function and urine output. Follow-up pending workup for hypercalcemia. Add oral bicarb. Follow up outpatient in 1 week. Repeat BMP and magnesium level 2-3 days postdischarge. Attention are going to subacute rehab today.
[2020-08-16] MEDS ORDERED: FUROSEMIDE 20 MG TAB PO SCH (13:15)
[2020-08-16 21:12] LABS: Vitamin D, 1, 25-Dihydroxy 12 pg/mL (20 - 79)
[2020-08-17] MEDS ORDERED: SODIUM BICARBONATE TAB 650 MG TAB PO SCH (09:00)
[2020-08-22 14:56] LABS: Albumin 2.08 g/dL (3.80-4.90); Gamma Globulin 0.78 g/dL (0.70-1.50)
== END 2020-08-16 13:09 | DRG 559 ==
LOC: EC 14:42 → 3SCARD 20:02
PROVIDERS: ADMIT Internal Medicine; ATTEND Internal Medicine
PROC: 0S9D3ZX Drainage of Left Knee Joint, Percutaneous Approach, Diagnostic (ICD-10-PCS; 2020-08-05)
PROC: 0S9D0ZX Drainage of Left Knee Joint, Open Approach, Diagnostic (ICD-10-PCS; principal; 2020-08-06 08:30)
PROC: 3E0U029 Introduction of Other Anti-infective into Joints, Open Approach (ICD-10-PCS; principal; 2020-08-06 08:30)
PROC: 0D9670Z Drainage of Stomach with Drainage Device, Via Natural or Artificial Opening (ICD-10-PCS; 2020-08-08)
PROC: 0DB98ZX Excision of Duodenum, Via Natural or Artificial Opening Endoscopic, Diagnostic (ICD-10-PCS; 2020-08-12)
PROC: 0DB78ZX Excision of Stomach, Pylorus, Via Natural or Artificial Opening Endoscopic, Diagnostic (ICD-10-PCS; 2020-08-12)
PROC: B246ZZ4 Ultrasonography of Right and Left Heart, Transesophageal (ICD-10-PCS; 2020-08-14)
PROC: 02HV33Z Insertion of Infusion Device into Superior Vena Cava, Percutaneous Approach (ICD-10-PCS; 2020-08-16)
DX: T84.54XA Infection and inflammatory reaction due to internal left knee prosthesis, initial encounter (principal); R65.20 Severe sepsis without septic shock; A41.01 Sepsis due to Methicillin susceptible Staphylococcus aureus; N17.0 Acute kidney failure with tubular necrosis; G92 Toxic encephalopathy; M00.062 Staphylococcal arthritis, left knee; E87.1 Hypo-osmolality and hyponatremia; E87.2 Acidosis; E11.42 Type 2 diabetes mellitus with diabetic polyneuropathy; E11.51 Type 2 diabetes mellitus with diabetic peripheral angiopathy without gangrene; D69.59 Other secondary thrombocytopenia; Z20.822 Contact with and (suspected) exposure to COVID-19; I11.9 Hypertensive heart disease without heart failure; I25.82 Chronic total occlusion of coronary artery; K76.0 Fatty (change of) liver, not elsewhere classified; I25.5 Ischemic cardiomyopathy; E83.42 Hypomagnesemia; K29.80 Duodenitis without bleeding; K29.70 Gastritis, unspecified, without bleeding; K31.7 Polyp of stomach and duodenum; K31.89 Other diseases of stomach and duodenum; K44.9 Diaphragmatic hernia without obstruction or gangrene; R33.9 Retention of urine, unspecified; M47.816 Spondylosis without myelopathy or radiculopathy, lumbar region; M47.812 Spondylosis without myelopathy or radiculopathy, cervical region; M47.814 Spondylosis without myelopathy or radiculopathy, thoracic region; M41.9 Scoliosis, unspecified; M50.30 Other cervical disc degeneration, unspecified cervical region; M43.6 Torticollis; I25.10 Atherosclerotic heart disease of native coronary artery without angina pectoris; K21.9 Gastro-esophageal reflux disease without esophagitis; N14.1 Nephropathy induced by other drugs, medicaments and biological substances; T50.8X5A Adverse effect of diagnostic agents, initial encounter; E78.5 Hyperlipidemia, unspecified; N42.9 Disorder of prostate, unspecified; G89.29 Other chronic pain; D72.810 Lymphocytopenia; E83.52 Hypercalcemia; E87.6 Hypokalemia; E87.70 Fluid overload, unspecified; N50.89 Other specified disorders of the male genital organs; R13.10 Dysphagia, unspecified; T46.4X5A Adverse effect of angiotensin-converting-enzyme inhibitors, initial encounter; D64.9 Anemia, unspecified; R06.6 Hiccough; M19.90 Unspecified osteoarthritis, unspecified site; K59.00 Constipation, unspecified; N52.9 Male erectile dysfunction, unspecified; I25.2 Old myocardial infarction; R77.8 Other specified abnormalities of plasma proteins; Z79.82 Long term (current) use of aspirin; Z79.899 Other long term (current) drug therapy; Z86.79 Personal history of other diseases of the circulatory system; Z85.46 Personal history of malignant neoplasm of prostate; Z87.39 Personal history of other diseases of the musculoskeletal system and connective tissue; Z87.81 Personal history of (healed) traumatic fracture; Z92.3 Personal history of irradiation; Z90.89 Acquired absence of other organs; Z95.5 Presence of coronary angioplasty implant and graft; Z98.1 Arthrodesis status; Z96.652 Presence of left artificial knee joint; Z96.641 Presence of right artificial hip joint; Z87.19 Personal history of other diseases of the digestive system; Z87.891 Personal history of nicotine dependence; Z98.42 Cataract extraction status, left eye; Z98.41 Cataract extraction status, right eye; Z98.890 Other specified postprocedural states; Z82.49 Family history of ischemic heart disease and other diseases of the circulatory system; Z82.69 Family history of other diseases of the musculoskeletal system and connective tissue; Z83.6 Family history of other diseases of the respiratory system; Z80.49 Family history of malignant neoplasm of other genital organs; Z81.2 Family history of tobacco abuse and dependence
CPT/HCPCS: 20610; 36415; 36573; 43239; 70450; 70490; 71045; 71250; 71275; 72156; 74018; 74019; 76705; 76770; 80048; 80053; 82164; 82306; 82652; 82728; 82945; 83540; 83550; 83605; 83615; 83735; 83970; 84100; 84132; 84145; 84157; 84165; 84484; 85025; 85027; 85379; 85610; 85652; 85730; 86140; 86334; 86335; 87040; 87070; 87075; 87077; 87186; 87205; 87635; 88305; 88342; 89050; 89060; 93005; 93308; 93312; 93325; 94640; 94760; 96361; 96365; 96366; 96368; 99291

== ENCOUNTER 2020-09-01 18:30 | Emergency (ER) | payer MEDICARE, BC ==
[2020-09-01 18:40] VITALS: RESP 18; TEMP 98
[2020-09-01 19:03] LABS: Basophils % (A) 0 %; Eosinophils % (A) 0 %; HGB 8.8 gm/dL (13.0-17.5); Hypochromasia Marked; Lymphocytes # (A) 0.7 k/uL (1.0-4.8); Lymphocytes % (A) 5 %; MCH 30.4 pg (25.0-35.0); MCHC 32.6 g/dL (31.0-37.0); MCV 93.4 fL (80.0-100.0); Mean Platelet Volume 7.9; Monocytes # (A) 0.4 k/uL (0-1.0); Monocytes % (A) 3 %; Neutrophils # (A) 13.1 k/uL (1.3-7.7); Neutrophils % (A) 91 %; Platelet Count 275 k/uL (150-450); Poikilocytosis Moderate; RDW 15.6 % (11.5-15.5); WBC 14.4 k/uL (3.8-10.6)
[2020-09-01 19:24] LABS: ALT <6 U/L (4-49); AST 29 U/L (17-59); African American GFR (CKD) 74 (>60 ml/min/1.73 sqM); Albumin 2.6 g/dL (3.5-5.0); Alkaline Phosphatase 81 U/L (38-126); Anion Gap 6 mmol/L; Blood Urea Nitrogen 24 mg/dL (9-20); Calcium 9.1 mg/dL (8.4-10.2); Carbon Dioxide 30 mmol/L (22-30); Chloride 109 mmol/L (98-107); Glucose 159 mg/dL (74-99); Magnesium 1.4 mg/dL (1.6-2.3); Non-African American GFR(CKD) 64 (>60 ml/min/1.73 sqM); Potassium 3.4 mmol/L (3.5-5.1); Sodium 145 mmol/L (137-145); Total Bilirubin 0.6 mg/dL (0.2-1.3)
[2020-09-01] MEDS ORDERED: POTASSIUM CHLORIDE ER 20 MEQ TAB.ER PO STA (19:51)
[2020-09-01] MEDS ORDERED: MAGNESIUM SULFATE-D5W PMX 1 GM in DEXTROSE/WATER 1 100ML.BAG IVPB ONE (19:51)
[2020-09-01] MEDS ORDERED: POTASSIUM BICARBONATE/CIT AC 20 MEQ TABLET.EFF PO ONE (20:07)
[2020-09-01 20:15] VITALS: BP 146/81; PULSE 110
--- NOTE | 2020-09-01 20:54 | ED ---
Recheck HPI - General Chief Complaint: Recheck/Abnormal Lab/Rx Stated Complaint: Abnormal labs Time Seen by Provider: 09/01/20 18:37 Source: patient, EMS Mode of arrival: EMS Limitations: no limitations - History of Present Illness Initial Comments: Burt is a 75-year-old man who is sent to the ER today for reevaluation of abnormal labs. Patient has recently been quite ill he had septic arthritis after orthopedic surgery, long-term antibiotics caused him to have C. diff diarrhea. Patient has recurrent anemia and has required transfusion in the past . Outpatient labs today showed a hemoglobin of 6.7 transported to the hospital. Upon arrival patient had no acute complaints aside from being picked up by the ambulance during dinner time. - Related Data Home Medications Medication Instructions Recorded Confirmed Aspirin [[place] Aspirin EC] 81 mg PO DAILY@0800 08/05/20 09/01/20 0.9 % Sodium Chloride [Sodium 1 applic IV TID@0600,1400,2200 09/01/20 09/01/20 Chloride Flush] Acetaminophen Tab [Tylenol] 1,000 mg PO Q6HR PRN 09/01/20 09/01/20 Atorvastatin [Lipitor] 80 mg PO HS@2100 09/01/20 09/01/20 Cholestyramine/Aspartame 4 gm PO BID@0800,1700 09/01/20 09/01/20 [Cholestyramine Light Packet] Clopidogrel [Plavix] 75 mg PO DAILY@0800 09/01/20 09/01/20 HYDROcodone/APAP 10-325MG [[place] 1 tab PO BID PRN 09/01/20 09/01/20 10-325] INSULIN ASPART (NovoLOG) [NovoLOG See Protocol SQ ACHS 09/01/20 09/01/20 (formulary)] Insulin Detemir (Levemir) [Levemir] 22 unit SQ HS@2100 09/01/20 09/01/20 Lactose-Reduced Food [Ensure Plus] 1 can PO TID@0800,1200,1700 09/01/20 09/01/20 Lidocaine Cream 5% 1 applic TOPICAL DAILY PRN 09/01/20 09/01/20 Liquacel 30 ml PO BID@0800,1700 09/01/20 09/01/20 Magnesium Hydroxide [Milk of 7,200 mg PO DAILY PRN 09/01/20 09/01/20 Magnesia Concentrate] Mirtazapine 7.5 mg PO HS@2100 09/01/20 09/01/20 Na Phos,M-B/Na Phos,Di-Ba [Fleet 133 ml RECTAL DAILY PRN 09/01/20 09/01/20 Adult] Pantoprazole [Protonix] 40 mg PO BID@0800,1700 09/01/20 09/01/20 Potassium Chloride ER [K-Dur 20] 20 meq PO DAILY@1700 09/01/20 09/01/20 Vancomycin HCl 250 mg PO Q6H 09/01/20 09/01/20 bisacodyL [Dulcolax] 10 mg RECTAL DAILY PRN 09/01/20 09/01/20 Previous Rx's Medication Instructions Recorded Ipratropium-Albuterol Nebulize 3 ml INHALATION RT-QID PRN ml 08/16/20 [Duoneb 0.5 mg-3 mg/3 ml Soln] ceFAZolin [Kefzol] 2,000 mg IVPB Q8HR #126 vial 08/16/20 methocarbamoL [Robaxin] 750 mg PO TID PRN tab 08/16/20 Allergies Allergy/AdvReac Type Severity Reaction Status Date / Time No Known Allergies Allergy Verified 09/01/20 19:20 Review of Systems ROS Statement: Those systems with pertinent positive or pertinent negative responses have been documented in the HPI. ROS Other: All systems not noted in ROS Statement are negative. Past Medical History Past Medical History: Atrial Fibrillation, Coronary Artery Disease (CAD), Cancer, Chest Pain / Angina, Diabetes Mellitus, GERD/Reflux, Hyperlipidemia, Hypertension, Osteoarthritis (OA), Prostate Disorder Additional Past Medical History / Comment(s): 5 Herniated discs in neck causing headaches & numbness in arm and right lower back and pain and right leg pain. Hx 4 fx ribs, current Prostate Cancer- last radiation tx Mar 25 had total of 44 tx. occ constipation, Last Myocardial Infarction Date:: UNKOWN History of Any Multi-Drug Resistant Organisms: None Reported Past Surgical History: Adenoidectomy, Heart Catheterization, Heart Catheterization With Stent, Joint Replacement, Orthopedic Surgery, Tonsillectomy Additional Past Surgical History / Comment(s): PROSTATE BX., LT. KNEE ARTHROSCOPY X 2, CERVICAL FUSIONS, COLONOSCOPY, ÁNGEL. CATARTACTS.Pain Procedures , rt radio frequency procedures. , total 3 heart stents, hemorrhoidectomy,heart cath August 2017-lt knee replacement. Stent replacement Past Anesthesia/Blood Transfusion Reactions: No Reported Reaction Additional Past Anesthesia/Blood Transfusion Reaction / Comment(s): doesn't like enclosed tight spaces Date of Last Stent Placement:: 04/24/17 Past Psychological History: No Psychological Hx Reported Smoking Status: Former smoker Past Alcohol Use History: None Reported Past Drug Use History: None Reported - Past Family History Father Additional Family Medical History / Comment(s): Father at age 49 from coronary artery disease. Brother(s) Additional Family Medical History / Comment(s): Patient has one brother with history of smoking and no other major medical problems. Patient does not have any sisters. Daughter(s) Additional Family Medical History / Comment(s): He has one daughter alive in [place] with no major medical problems. Patient has one daughter with history of muscular dystrophy and of pneumonia. Son(s) Family Medical History: No Reported History Additional Family Medical History / Comment(s): Patient has one son with no major medical problems. Mother Family Medical History: Cancer Additional Family Medical History / Comment(s): Mother at age 81 from uter ine cancer with metastatic disease. General Exam - General Exam Comments Initial Comments: Physical Exam GENERAL: Chronically ill appearing HENT: Normocephalic, Atraumatic. EYES: PERRL, EOMI PULMONARY: Unlabored respirations. No audible rales rhonchi or wheezing was noted. CARDIOVASCULAR: Tachycardic, regular ABDOMEN: Soft and nontender with normal bowel sounds. SKIN: Incision over knee : Deferred NEUROLOGIC: Patient is alert and oriented x3. Moving all extremities spontaneously MUSCULOSKELETAL: Decreased ROM of legs and hips secondary to pain PSYCHIATRIC: Normal psychiatric evaluation. Limitations: no limitations Course Vital Signs 09/01/20 09/01/20 18:31 20:14 Temperature 98.0 F Pulse Rate 125 H 110 H Respiratory 18 18 Rate Blood Pressure 141/69 146/81 O2 Sat by Pulse 96 95 Oximetry Medical Decision Making - Medical Decision Making The patient was seen and evaluated Outpatient labs were reviewed, repeat labs and blood were ordered Repeat Hgb 8.8 I suspect the outpatient lab was erroneous possibly due to being drawn off the patient's PICC line Patient's magnesium and potassium were repleted Patient is stable for discharge back to custodial for continued outpatient IV antibiotics and care - Lab Data Result diagrams: 09/01/20 18:41 09/01/20 18:41 Lab Results 09/01/20 09/01/20 09/01/20 Range/Units 18:41 18:41 18:41 WBC 14.4 H (3.8-10.6) k/uL RBC 2.90 L (4.30-5.90) m/uL Hgb 8.8 L (13.0-17.5) gm/dL Hct 27.0 L (39.0-53.0) % MCV 93.4 (80.0-100.0) fL MCH 30.4 (25.0-35.0) pg MCHC 32.6 (31.0-37.0) g/dL RDW 15.6 H (11.5-15.5) % Plt Count 275 (150-450) k/uL MPV 7.9 Neutrophils % 91 % Lymphocytes % 5 % Monocytes % 3 % Eosinophils % 0 % Basophils % 0 % Neutrophils # 13.1 H (1.3-7.7) k/uL Lymphocytes # 0.7 L (1.0-4.8) k/uL Monocytes # 0.4 (0-1.0) k/uL Eosinophils # 0.0 (0-0.7) k/uL Basophils # 0.0 (0-0.2) k/uL Hypochromasia Marked Poikilocytosis Moderate Sodium 145 (137-145) mmol/L Potassium 3.4 L (3.5-5.1) mmol/L Chloride 109 H (98-107) mmol/L Carbon Dioxide 30 (22-30) mmol/L Anion Gap 6 mmol/L BUN 24 H (9-20) mg/dL Creatinine 1.11 (0.66-1.25) mg/dL Est GFR (CKD-EPI)AfAm 74 (>60 ml/min/1.73 sqM) Est GFR (CKD-EPI)NonAf 64 (>60 ml/min/1.73 sqM) Glucose 159 H (74-99) mg/dL Plasma Lactic Acid Rob 1.4 (0.7-2.0) mmol/L Calcium 9.1 (8.4-10.2) mg/dL Magnesium 1.4 L (1.6-2.3) mg/dL Total Bilirubin 0.6 (0.2-1.3) mg/dL AST 29 (17-59) U/L ALT <6 (4-49) U/L Alkaline Phosphatase 81 (38-126) U/L Total Protein 6.0 L (6.3-8.2) g/dL Albumin 2.6 L (3.5-5.0) g/dL Blood Type Blood Type Recheck Bld Type Recheck Status Antibody Screen Crossmatch Spec Expiration Date 09/01/20 Range/Units 18:50 WBC (3.8-10.6) k/uL RBC (4.30-5.90) m/uL Hgb (13.0-17.5) gm/dL Hct (39.0-53.0) % MCV (80.0-100.0) fL MCH (25.0-35.0) pg MCHC (31.0-37.0) g/dL RDW (11.5-15.5) % Plt Count (150-450) k/uL MPV Neutrophils % % Lymphocytes % % Monocytes % % Eosinophils % % Basophils % % Neutrophils # (1.3-7.7) k/uL Lymphocytes # (1.0-4.8) k/uL Monocytes # (0-1.0) k/uL Eosinophils # (0-0.7) k/uL Basophils # (0-0.2) k/uL Hypochromasia Poikilocytosis Sodium (137-145) mmol/L Potassium (3.5-5.1) mmol/L Chloride (98-107) mmol/L Carbon Dioxide (22-30) mmol/L Anion Gap mmol/L BUN (9-20) mg/dL Creatinine (0.66-1.25) mg/dL Est GFR (CKD-EPI)AfAm (>60 ml/min/1.73 sqM) Est GFR (CKD-EPI)NonAf (>60 ml/min/1.73 sqM) Glucose (74-99) mg/dL Plasma Lactic Acid Rob (0.7-2.0) mmol/L Calcium (8.4-10.2) mg/dL Magnesium (1.6-2.3) mg/dL Total Bilirubin (0.2-1.3) mg/dL AST (17-59) U/L ALT (4-49) U/L Alkaline Phosphatase (38-126) U/L Total Protein (6.3-8.2) g/dL Albumin (3.5-5.0) g/dL Blood Type O Positive Blood Type Recheck O Pos Bld Type Recheck Status No Antibody Screen NEGATIVE Crossmatch See Detail Spec Expiration Date 09/04/2020 - 2340 Disposition Clinical Impression: Chronic anemia Disposition: HOME SELF-CARE Condition: Serious Is patient prescribed a controlled substance at d/c from ED?: No Referrals: German Astudillo MD [Primary Care Provider] - 1-2 days
== END 2020-09-01 21:33 | disposition home or self-care (01) ==
LOC: EC 18:30
DX: D64.9 Anemia, unspecified (principal); I25.10 Atherosclerotic heart disease of native coronary artery without angina pectoris; E78.5 Hyperlipidemia, unspecified; K21.9 Gastro-esophageal reflux disease without esophagitis; M19.90 Unspecified osteoarthritis, unspecified site; E11.9 Type 2 diabetes mellitus without complications; I10 Essential (primary) hypertension; I48.91 Unspecified atrial fibrillation; N40.0 Benign prostatic hyperplasia without lower urinary tract symptoms; I25.2 Old myocardial infarction; Z85.46 Personal history of malignant neoplasm of prostate; Z87.891 Personal history of nicotine dependence; Z79.899 Other long term (current) drug therapy; Z79.4 Long term (current) use of insulin; Z79.02 Long term (current) use of antithrombotics/antiplatelets; Z79.82 Long term (current) use of aspirin
CPT/HCPCS: 36415; 86900; 86901; 80053; 83605; 83735; 85025; 86850; 86920; 87040; 99284; 96365; J3475

== ENCOUNTER 2020-09-17 11:27 | Inpatient (IN) | payer MEDICARE, BC ==
[2020-09-17] MEDS ORDERED: MORPHINE SULFATE 4 MG/ML SYRINGE IVP STA (12:46)
--- NOTE | 2020-09-17 13:44 | ED ---
General Adult HPI <Charbel Bunn - Last Filed: 09/17/20 14:55> - General Source: patient, EMS Mode of arrival: EMS Limitations: altered mental status <Suman Gibbons - Last Filed: 09/17/20 15:24> - General Chief complaint: Skin/Abscess/Foreign Body Stated complaint: bed sore Time Seen by Provider: 09/17/20 12:19 - History of Present Illness Initial comments: 75-year-old male presents from [facility] for wound. Patient reports that ever since he has been in the [facility] he has had a wound on his buttock. States that today the doctor saw this and recommended he be transferred to the hospital. Patient states it is very painful. He states he has a foul odor. He denies fevers.Patient has no other complaints at this time including shortness of breath, chest pain, abdominal pain, nausea or vomiting, headache, or visual changes. (Suman Gibbons) - Related Data Home Medications Medication Instructions Recorded Confirmed Aspirin [Gibson Aspirin EC] 81 mg PO DAILY@0800 08/05/20 09/17/20 0.9 % Sodium Chloride [Sodium 1 applic IV TID@0600,1400,2200 09/01/20 09/17/20 Chloride Flush] Acetaminophen Tab [Tylenol] 1,000 mg PO Q6HR PRN 09/01/20 09/17/20 Atorvastatin [Lipitor] 80 mg PO HS@2100 09/01/20 09/17/20 Clopidogrel [Plavix] 75 mg PO DAILY@0800 09/01/20 09/17/20 HYDROcodone/APAP 10-325MG [[place] 1 tab PO BID PRN 09/01/20 09/17/20 10-325] INSULIN ASPART (NovoLOG) [NovoLOG See Protocol SQ ACHS 09/01/20 09/17/20 (formulary)] Insulin Detemir (Levemir) [Levemir] 22 unit SQ HS@2100 09/01/20 09/17/20 Lactose-Reduced Food [Ensure Plus] 1 can PO BID@0800,1700 09/01/20 09/17/20 Lidocaine Cream 5% 1 applic TOPICAL DAILY PRN 09/01/20 09/17/20 Magnesium Hydroxide [Milk of 7,200 mg PO DAILY PRN 09/01/20 09/17/20 Magnesia Concentrate] Mirtazapine 7.5 mg PO HS@2100 09/01/20 09/17/20 Na Phos,M-B/Na Phos,Di-Ba [Fleet 133 ml RECTAL DAILY PRN 09/01/20 09/17/20 Adult] Pantoprazole [Protonix] 40 mg PO BID@0800,1700 09/01/20 09/17/20 Potassium Chloride ER [K-Dur 20] 20 meq PO DAILY@1700 09/01/20 09/17/20 bisacodyL [Dulcolax] 10 mg RECTAL DAILY PRN 09/01/20 09/17/20 Ivan Packet 1 packet PO BID@1200,2000 09/17/20 09/17/20 Levofloxacin [Levaquin] 500 mg PO DAILY@0800 09/17/20 09/17/20 Metoprolol Tartrate [Lopressor] 50 mg PO BID@0800,1700 09/17/20 09/17/20 Nystatin 100,000Unit/gm Cream 1 applic TOPICAL QID 09/17/20 09/17/20 [Mycostatin Cream] ceFAZolin [Kefzol] 2,000 mg IV Q8HR 09/17/20 09/17/20 Previous Rx's Medication Instructions Recorded Ipratropium-Albuterol Nebulize 3 ml INHALATION RT-QID PRN ml 08/16/20 [Duoneb 0.5 mg-3 mg/3 ml Soln] methocarbamoL [Robaxin] 750 mg PO TID PRN tab 08/16/20 Allergies Allergy/AdvReac Type Severity Reaction Status Date / Time No Known Allergies Allergy Verified 09/17/20 13:04 Review of Systems ROS Other: All systems not noted in ROS Statement are negative. <Charbel Bunn - Last Filed: 09/17/20 14:55> ROS Other: All systems not noted in ROS Statement are negative. <Suman Gibbons - Last Filed: 09/17/20 15:24> ROS Statement: Those systems with pertinent positive or pertinent negative responses have been documented in the HPI. Past Medical History Past Medical History: Atrial Fibrillation, Coronary Artery Disease (CAD), Cancer, Chest Pain / Angina, Diabetes Mellitus, GERD/Reflux, Hyperlipidemia, Hypertension, Osteoarthritis (OA), Prostate Disorder Additional Past Medical History / Comment(s): 5 Herniated discs in neck causing headaches & numbness in arm and right lower back and pain and right leg pain. Hx 4 fx ribs, current Prostate Cancer- last radiation tx Mar 25-2016 had total of 44 tx. occ constipation, Last Myocardial Infarction Date:: UNKOWN History of Any Multi-Drug Resistant Organisms: None Reported Past Surgical History: Adenoidectomy, Heart Catheterization, Heart Catheterization With Stent, Joint Replacement, Orthopedic Surgery, Tonsillectomy Additional Past Surgical History / Comment(s): PROSTATE BX., LT. KNEE ARTHROSC OPY X 2, CERVICAL FUSIONS, COLONOSCOPY, ÁNGEL. CATARTACTS.Pain Procedures , rt radio frequency procedures. , total 3 heart stents, hemorrhoidectomy,heart cath August 2017-lt knee replacement. Stent replacement Past Anesthesia/Blood Transfusion Reactions: No Reported Reaction Additional Past Anesthesia/Blood Transfusion Reaction / Comment(s): doesn't like enclosed tight spaces Date of Last Stent Placement:: 04/24/17 Past Psychological History: No Psychological Hx Reported Smoking Status: Former smoker Past Alcohol Use History: None Reported Past Drug Use History: None Reported - Past Family History Father Additional Family Medical History / Comment(s): Father at age 49 from coronary artery disease. Brother(s) Additional Family Medical History / Comment(s): Patient has one brother with history of smoking and no other major medical problems. Patient does not have any sisters. Daughter(s) Additional Family Medical History / Comment(s): He has one daughter alive in [place] with no major medical problems. Patient has one daughter with history of muscular dystrophy and of pneumonia. Son(s) Family Medical History: No Reported History Additional Family Medical History / Comment(s): Patient has one son with no major medical problems. Mother Family Medical History: Cancer Additional Family Medical History / Comment(s): Mother at age 81 from uterine cancer with metastatic disease. <Suman Gibbons - Last Filed: 09/17/20 15:24> General Exam Limitations: altered mental status General appearance: alert, in no apparent distress Head exam: Present: atraumatic, normocephalic, normal inspection Eye exam: Present: normal appearance, PERRL, EOMI. Absent: scleral icterus, conjunctival injection, periorbital swelling ENT exam: Present: normal exam, mucous membranes moist Neck exam: Present: normal inspection. Absent: tenderness, meningismus, lymphadenopathy Respiratory exam: Present: normal lung sounds bilaterally. Absent: respiratory distress, wheezes, rales, rhonchi, stridor Cardiovascular Exam: Present: regular rate, normal rhythm, normal heart sounds. Absent: systolic murmur, diastolic murmur, rubs, gallop, clicks GI/Abdominal exam: Present: soft, normal bowel sounds. Absent: distended, tenderness, guarding, rebound, rigid Back exam: Present: other (Large stage IV decubitus ulcer noted) <Suman Gibbons - Last Filed: 09/17/20 15:24> Course <Charbel Bunn - Last Filed: 09/17/20 14:55> Vital Signs 09/17/20 09/17/20 09/17/20 11:41 12:32 13:23 Temperature 99 F 99.0 F 99.0 F Pulse Rate 115 H 100 Respiratory 18 18 Rate Blood Pressure 115/65 116/66 129/67 O2 Sat by Pulse 97 97 Oximetry - Reevaluation(s) Reevaluation #1: 09/17/20 14:55 PA supervision this case was evaluated by me the patient did present with complaints of a pressure sore he does have a late stage decubitus ulceration noted to the buttock area. He is also anemic. Patient will be admitted for inpatient evaluation and treatment I do agree with the assessment and plan. (Charbel Bunn) Medical Decision Making - Lab Data Result diagrams: 09/17/20 13:30 09/17/20 13:30 <Charbel Bunn - Last Filed: 09/17/20 14:55> - Lab Data Result diagrams: 09/17/20 13:30 09/17/20 13:30 <Suman Gibbons - Last Filed: 09/17/20 15:24> - Medical Decision Making Vitals are stable. Physical exam reveals a large stage IV decubitus ulcer. CBC shows mild brock with a white count of 2.9. Hemoglobin is stable at 7.8. This appears to be patient's baseline. CMP is unremarkable. CT pelvis was obtained which did show skin thickening and irregularity involving the posterior gluteal region with abnormal attenuation in the subcutaneous tissues extending to the musculature bilaterally suggestive of cellulitis decubitus ulcers. On patient's home meds it appears he is currently on Levaquin and Kefzol which we will continue. Case was discussed with Dr. Astudilol who is aware of patient and accepts admission. He does request specifically that Dr. Hartman be consulted for likely debridement. (Suman Gibbons) - Lab Data Lab Results 09/17/20 09/17/20 09/17/20 Range/Units 13:30 13:30 13:30 WBC 2.9 L (3.8-10.6) k/uL RBC 2.71 L (4.30-5.90) m/uL Hgb 7.8 L (13.0-17.5) gm/dL Hct 24.2 L (39.0-53.0) % MCV 89.2 (80.0-100.0) fL MCH 28.9 (25.0-35.0) pg MCHC 32.4 (31.0-37.0) g/dL RDW 16.5 H (11.5-15.5) % Plt Count 238 (150-450) k/uL MPV 7.1 Neutrophils % 74 % Lymphocytes % 14 % Monocytes % 9 % Eosinophils % 1 % Basophils % 1 % Neutrophils # 2.2 (1.3-7.7) k/uL Lymphocytes # 0.4 L (1.0-4.8) k/uL Monocytes # 0.3 (0-1.0) k/uL Eosinophils # 0.0 (0-0.7) k/uL Basophils # 0.0 (0-0.2) k/uL Hypochromasia Moderate Poikilocytosis Moderate Anisocytosis Slight PT 14.0 H (9.0-12.0) sec INR 1.4 H (<1.2) APTT 26.8 (22.0-30.0) sec Sodium 135 L (137-145) mmol/L Potassium 3.8 (3.5-5.1) mmol/L Chloride 102 (98-107) mmol/L Carbon Dioxide 29 (22-30) mmol/L Anion Gap 4 mmol/L BUN 11 (9-20) mg/dL Creatinine 0.78 (0.66-1.25) mg/dL Est GFR (CKD-EPI)AfAm >90 (>60 ml/min/1.73 sqM) Est GFR (CKD-EPI)NonAf 88 (>60 ml/min/1.73 sqM) Glucose 104 H (74-99) mg/dL Plasma Lactic Acid Rob (0.7-2.0) mmol/L Calcium 8.1 L (8.4-10.2) mg/dL Total Bilirubin 0.3 (0.2-1.3) mg/dL AST 34 (17-59) U/L ALT <6 (4-49) U/L Alkaline Phosphatase 79 (38-126) U/L Total Protein 6.0 L (6.3-8.2) g/dL Albumin 2.6 L (3.5-5.0) g/dL 09/17/20 Range/Units 13:30 WBC (3.8-10.6) k/uL RBC (4.30-5.90) m/uL Hgb (13.0-17.5) gm/dL Hct (39.0-53.0) % MCV (80.0-100.0) fL MCH (25.0-35.0) pg MCHC (31.0-37.0) g/dL RDW (11.5-15.5) % Plt Count (150-450) k/uL MPV Neutrophils % % Lymphocytes % % Monocytes % % Eosinophils % % Basophils % % Neutrophils # (1.3-7.7) k/uL Lymphocytes # (1.0-4.8) k/uL Monocytes # (0-1.0) k/uL Eosinophils # (0-0.7) k/uL Basophils # (0-0.2) k/uL Hypochromasia Poikilocytosis Anisocytosis PT (9.0-12.0) sec INR (<1.2) APTT (22.0-30.0) sec Sodium (137-145) mmol/L Potassium (3.5-5.1) mmol/L Chloride (98-107) mmol/L Carbon Dioxide (22-30) mmol/L Anion Gap mmol/L BUN (9-20) mg/dL Creatinine (0.66-1.25) mg/dL Est GFR (CKD-EPI)AfAm (>60 ml/min/1.73 sqM) Est GFR (CKD-EPI)NonAf (>60 ml/min/1.73 sqM) Glucose (74-99) mg/dL Plasma Lactic Acid Rob 1.2 (0.7-2.0) mmol/L Calcium (8.4-10.2) mg/dL Total Bilirubin (0.2-1.3) mg/dL AST (17-59) U/L ALT (4-49) U/L Alkaline Phosphatase (38-126) U/L Total Protein (6.3-8.2) g/dL Albumin (3.5-5.0) g/dL Disposition <Charbel Bunn - Last Filed: 09/17/20 14:55> Is patient prescribed a controlled substance at d/c from ED?: No Time of Disposition: 15:23 <Suman Gibbons - Last Filed: 09/17/20 15:24> Clinical Impression: Decubitus ulcer, Leukopenia, Chronic anemia, Cellulitis Disposition: ADMITTED IP TO THIS HOSP Referrals: German Astudillo MD [Primary Care Provider] - 1-2 days
[2020-09-17 13:46] LABS: Anisocytosis Slight; Basophils % (A) 1 %; Eosinophils % (A) 1 %; HCT 24.2 % (39.0-53.0); HGB 7.8 gm/dL (13.0-17.5); Hypochromasia Moderate; Lymphocytes # (A) 0.4 k/uL (1.0-4.8); Lymphocytes % (A) 14 %; MCH 28.9 pg (25.0-35.0); MCHC 32.4 g/dL (31.0-37.0); MCV 89.2 fL (80.0-100.0); Mean Platelet Volume 7.1; Monocytes # (A) 0.3 k/uL (0-1.0); Monocytes % (A) 9 %; Neutrophils # (A) 2.2 k/uL (1.3-7.7); Neutrophils % (A) 74 %; Platelet Count 238 k/uL (150-450); Poikilocytosis Moderate; RBC 2.71 m/uL (4.30-5.90); RDW 16.5 % (11.5-15.5); WBC 2.9 k/uL (3.8-10.6)
[2020-09-17 13:53] LABS: ALT <6 U/L (4-49); AST 34 U/L (17-59); African American GFR (CKD) >90 (>60 ml/min/1.73 sqM); Albumin 2.6 g/dL (3.5-5.0); Alkaline Phosphatase 79 U/L (38-126); Anion Gap 4 mmol/L; Blood Urea Nitrogen 11 mg/dL (9-20); Calcium 8.1 mg/dL (8.4-10.2); Carbon Dioxide 29 mmol/L (22-30); Chloride 102 mmol/L (98-107); Glucose 104 mg/dL (74-99); Non-African American GFR(CKD) 88 (>60 ml/min/1.73 sqM); Potassium 3.8 mmol/L (3.5-5.1); Sodium 135 mmol/L (137-145); Total Bilirubin 0.3 mg/dL (0.2-1.3)
[2020-09-17 14:46] LABS: INR 1.4 (<1.2); Partial Thromboplastin Time 26.8 sec (22.0-30.0)
--- NOTE | 2020-09-17 14:49 | CT ---
EXAMINATION TYPE: CT pelvis w con DATE OF EXAM: 09/17/2020 COMPARISON: 11/27/2016 HISTORY: h/o decub ulcer CT DLP: 1335.7 mGycm Automated exposure control for dose reduction was used. CONTRAST: CT scan of the pelvis is performed with IV Contrast, patient injected with 100ml mL of Isovue 300. FINDINGS- Atherosclerotic change aorta. Hypodense lesion involving the inferior pole of the left kidney inciden tally noted stable from prior exam suggestive of cyst. Similar lesion noted involving the right kidne y. Hypertrophic and degenerative change of the spine. Shelley catheter is seen which limits assessment bladder and there is severe artifact from the right hip prostheses. There is irregularity and skin th ickening with findings suggestive decubiti ulcers involving the posterior gluteal region correlate cl inically. Air extends along the soft tissues of the right sacrum suggestive of cellulitis. No definab le abscess cavity. There is a small fluid-filled density adjacent to the femoral vasculature along th e anterior abdominal wall measuring 2 cm. IMPRESSION- 1. Skin thickening and irregularity involving the posterior gluteal region with the abnormal attenuat ion in the subcutaneous tissues extending to the musculature bilaterally. Findings are suggestive of cellulitis decubiti ulcers. Correlate clinically. 2. Shelley catheter is noted within the bladder which appears to be nondistended and limited in assessm ent. Hyperdensity within the bladder which could be related to contrast, correlate with urinalysis fo r confirmation. #3 there is a 2 cm fluid-filled structure anterior to the femoral vasculature on axia l image 59 which is indeterminate could represent a small seroma. Remote hematoma or small abscess fe lt less likely but not excluded correlate clinically and with ultrasound as clinically warranted.
[2020-09-17] MEDS ORDERED: NALOXONE 0.4 MG/ML 1 ML VIAL IV PRN (15:25)
[2020-09-17] MEDS ORDERED: ACETAMINOPHEN TAB 325 MG TAB PO PRN (15:25)
[2020-09-17] MEDS ORDERED: MAGNESIUM HYDROXIDE 2,400 MG/10 ML CUP PO PRN (15:26)
[2020-09-17] MEDS ORDERED: bisacodyL 10 MG SUPP RECTAL PRN (15:26)
[2020-09-17] MEDS ORDERED: methocarbamoL 750 MG TAB PO PRN (15:26)
[2020-09-17] MEDS ORDERED: NA PHOS,M-B/NA PHOS,DI-BA 133 ML ENEMA RECTAL PRN (15:26)
[2020-09-17] MEDS ORDERED: IPRATROPIUM-ALBUTEROL 3 ML NEB INHALATION PRN (15:26)
[2020-09-17] MEDS ORDERED: ACETAMINOPHEN TAB 500 MG TAB PO PRN (15:26)
[2020-09-17] MEDS: SODIUM CHLORIDE 0.9% 1,000 ML IV SCH (15:54)
[2020-09-17] MEDS ORDERED: NON FORMULARY DRUG (Lactose-Reduced Food [Ensure Plus] 237 ML Liquid) PO SCH (17:00)
[2020-09-17] MEDS: INSULIN ASPART (NovoLOG) 100 UNIT/ML VIAL SQ SCH ×2 (17:41→22:25)
[2020-09-17 17:43] LABS: Glucose,Whole Blood 107 mg/dL (75-99)
[2020-09-17] MEDS: METOPROLOL TARTRATE 50 MG TAB PO SCH (17:46)
[2020-09-17] MEDS: PANTOPRAZOLE 40 MG TABLET PO SCH (17:47)
[2020-09-17] MEDS: POTASSIUM CHLORIDE ER 20 MEQ TAB.ER PO SCH (17:49)
[2020-09-17] MEDS: NYSTATIN 100,000UNIT/GM CREAM 30 GM TUBE TOPICAL SCH (17:50)
[2020-09-17] MEDS ORDERED: NON FORMULARY DRUG (Juven Packet 1 PACKET Packet) PO SCH (20:00)
[2020-09-17 20:38] LABS: Glucose,Whole Blood 136 mg/dL (75-99)
[2020-09-17] MEDS: HYDROmorphone 0.5 MG/0.5 ML SYRINGE IVP PRN (20:58)
[2020-09-17] MEDS: HYDROcodone/APAP 10-325MG 1 EACH TAB PO PRN (22:26)
[2020-09-17] MEDS: MIRTAZAPINE 15 MG TAB PO SCH (22:26)
[2020-09-17] MEDS: ATORVASTATIN 80 MG TAB PO SCH (22:26)
[2020-09-18] MEDS: NYSTATIN 100,000UNIT/GM CREAM 30 GM TUBE TOPICAL SCH ×5 (02:57→23:57)
[2020-09-18] MEDS: SODIUM CHLORIDE 0.9% 1,000 ML IV SCH ×2 (06:12→19:16)
[2020-09-18] MEDS: HYDROmorphone 0.5 MG/0.5 ML SYRINGE IVP PRN ×4 (06:38→19:17)
[2020-09-18 06:47] LABS: Glucose,Whole Blood 104 mg/dL (75-99)
[2020-09-18] MEDS: INSULIN ASPART (NovoLOG) 100 UNIT/ML VIAL SQ SCH ×4 (07:46→22:48)
[2020-09-18 08:01] LABS: Anisocytosis Slight; Basophils % (A) 0 %; Eosinophils % (A) 1 %; HGB 8.1 gm/dL (13.0-17.5); Hypochromasia Marked; Lymphocytes # (A) 0.5 k/uL (1.0-4.8); Lymphocytes % (A) 20 %; MCH 29.3 pg (25.0-35.0); MCHC 31.1 g/dL (31.0-37.0); MCV 94.1 fL (80.0-100.0); Monocytes # (A) 0.2 k/uL (0-1.0); Monocytes % (A) 8 %; Neutrophils # (A) 1.7 k/uL (1.3-7.7); Neutrophils % (A) 68 %; Platelet Count 244 k/uL (150-450); Poikilocytosis Slight; RBC 2.77 m/uL (4.30-5.90); RDW 16.7 % (11.5-15.5); WBC 2.5 k/uL (3.8-10.6)
[2020-09-18 08:25] LABS: ALT <6 U/L (4-49); AST 33 U/L (17-59); African American GFR (CKD) >90 (>60 ml/min/1.73 sqM); Albumin 2.4 g/dL (3.5-5.0); Albumin/Globulin Ratio 0.8; Alkaline Phosphatase 68 U/L (38-126); Anion Gap 5 mmol/L; Blood Urea Nitrogen 9 mg/dL (9-20); Calcium 7.8 mg/dL (8.4-10.2); Carbon Dioxide 28 mmol/L (22-30); Chloride 105 mmol/L (98-107); Globulin 3.2 g/dL; Glucose 103 mg/dL (74-99); Non-African American GFR(CKD) 86 (>60 ml/min/1.73 sqM); Potassium 3.9 mmol/L (3.5-5.1); Sodium 138 mmol/L (137-145); Total Bilirubin 0.3 mg/dL (0.2-1.3); Total Protein 5.6 g/dL (6.3-8.2)
[2020-09-18] MEDS: PANTOPRAZOLE 40 MG TABLET PO SCH ×2 (09:20→14:56)
[2020-09-18] MEDS: HYDROcodone/APAP 10-325MG 1 EACH TAB PO PRN ×2 (09:20→22:47)
[2020-09-18] MEDS: METOPROLOL TARTRATE 50 MG TAB PO SCH ×2 (09:20→14:56)
[2020-09-18] MEDS: POTASSIUM CHLORIDE ER 20 MEQ TAB.ER PO SCH (09:20)
[2020-09-18] MEDS: ASPIRIN 81 MG PO SCH (09:20)
--- NOTE | 2020-09-18 10:11 | P.HPIM ---
History of Present Illness H&P Date: 09/18/20 Chief Complaint: Decubitus ulcer HISTORY OF PRESENT ILLNESS: This is a 75-year-old male patient of Dr. Astudillo with previous medical history significant for coronary artery disease status post percutaneous coronary intervention and stent placement last one was in 12/13/2019 in the mid RCA at that time he was found to have a totally occluded obtuse marginal one of the LCx, with collaterals from the PDA, hypertension and hypertensive cardio vascular disease, hyperlipidemia, diabetes mellitus type 2, diabetic polyneuropathy, 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 as well as radio frequency ablation, prostate cancer status post radiation therapy, patient took himself off the Plavix due to significant bruising and bleeding against his gusset folder recommendation and he was taken a baby aspirin alone, 07/28/[address] suffered from inferior wall ST elevation myocardial infarction patient was taken to the analytical laboratory technician and an attempted angioplasty of a computed occluded RCA had failed and the patient was transferred to [facility] for complex angioplasty of the occluded RCA, apparently patient did have 2 stents placement in the RCA and he was discharged from [facility]. Patient then had admission August 05 through August 16 at which time he was treated for septic arthritis of the left knee with persistent MSSA bacteremia status post I&D of the left total knee. He also suffered from lactic acidosis, thrombocytopenia secondary to sepsis, acute kidney injury. Patient was stabilized and discharged to [facility] for subacute rehab. Patient was continued on for a 6 week course. Unfortunately, patient developed C. difficile colitis treated with oral vancomycin. Patient has done very little physical therapy and in bed most the time, developed decubitus ulcer with worsening to the coccyx area. Patient also has a deep pressure injury to the right heel and plantar surface of the right foot. He has been treated by the wound team at [facility] and underwent debridement but was unfortunately have continued to worsen and he now has bone visualized in the coccyx wound as well as necrotic tissue and was transferred to [facility] emergency center to be evaluated by general surgery for surgical debridement in the OR. Consult added for Dr. Strickland and cardiology. REVIEW OF SYSTEMS: Constitutional: Positive for fever, positive for chills, no night sweats, fatigue , lethargy and sleeping and weight loss. HEENT: No headache. No blurred vision or double vision, no loss of vision. No loss of Hearing, no ringing in the ears, no dizziness. No nasal drainage or congestion. No epistaxis. No sore throat. Respiratory: No shortness of breath, no cough, no sputum production. No wheezing. Reports dyspnea with activity. Cardiovascular: No chest pain, no lower extremity edema. No palpitations. No paroxysmal nocturnal dyspnea. No orthopnea. No lightheadedness or dizziness. No syncopal episodes. Gastrointestinal: Reports no abdominal pain. No nausea, vomiting. No diarrhea. No constipation. No bloody or tarry stools reports loss of appetite. Genitourinary: No dysuria, increased frequency, urgency. No urinary retention. Musculoskeletal: Positive for myalgias. positive for muscle weakness, Positive for gait dysfunction, no frequent falls, positive for left knee pain, locking, positive for low back pain . Integumentary: No wounds, no lesions. No rash or pruritus. brpositive for bruising. No change in hair or nails. Neurologic: No aphasia. No facial droop. No change in mentation. No head injury. No headache. No paralysis. No paresthesia. Psychiatric: No depression. No anxiety. No mood swings. Endocrine: No abnormal blood sugars. No weight change. PAST MEDICAL HISTORY: 1. CAD post-PCI of the RCA. 2. Hypertension and hypertensive cardiovascular disease. 3. Hyperlipidemia. 4. Diabetes mellitus type 2 5. Diabetic polyneuropathy. 6. PAD. 7. Prostate cancer. 8. Erectile dysfunction. 9. Spondylosis of the lumbar spine. 10. Osteoarthritis. 11. Spondylosis of the cervical spine. 12. Constipation. 13. Septic arthritis left knee and MSSA bacteremia. 14. C. difficile colitis. PAST SURGICAL HISTORY: Left knee arthroscopic surgery x2. Left total knee arthroplasty. Right total hip replacement with revision due to infection Prostate biopsy. Bilateral cataract surgery. Left heart catheterization in August 2017 with a stent placement of the RCA. Left heart catheterization 07/28/2020 with attempted PCI of the RCA. Left heart catheterization 07/30/2020 with 2 stents placement of the RCA Adenoidectomy with tonsillectomy. Colonoscopy. Epidural injection of the lumbar spine with radiofrequency ablation. SOCIAL HISTORY: Patient is a smoker a pack every day smoked for many years and quit many years ago, he denies any alcohol ingestion, patient used to work for the [employer]. FAMILY HISTORY: Father at age of 49 from myocardial infarction, mother at age of 81 from uterine cancer with metastatic disease, patient has one brother with chronic tobacco use and dependence, patient has no sisters, patient has one son no major medical problems, he had 2 daughters one of them from dishing muscular dystrophy the other one is alive and lives in [place]. PHYSICAL EXAMINATION: VS:afebrile, heart rate 111, blood pressure 114/69, pulse ox 93% on room air General: This is 75-year-old male who appears to be in no distress. HEENT: Head is atraumatic, normocephalic, pupils were equal round reactive to light and recommendation, extraocular muscle movement were intact, sclera nonicteric, conjunctivae were pale, mucous membranes of the mouth are somewhat dry. Neck: Supple, no JVP, normal carotid upstroke bilaterally, no lymphadenopathy. Chest: Decreased breath sounds at the bases, few rhonchi, no extremity wheezes, no chest wall tenderness, no intercostal retractions. Heart: First heart sound is normal, second heart sound is normal there is systolic ejection murmur 2/6 left sternal border. Abdomen: Soft, nontender, nondistended, positive bowel sounds, no hepatos plenomegaly Extremities: There is no edema no calf tenderness DP + 1 bilaterally, left knee no tenderness. Skin: Large decubitus ulcer to the coccyx area with partial necrotic tissue, surrounding erythema, deep tissue injury to the right heel and small area to the plantar surface of the right foot, please see nursing documentation for details. Neurologic examination: Patient is awake alert and oriented X3, cranial nerves II-12 appear grossly intact, muscle power were 5 out of 5 in upper extremities and 5 out of 5 in bilateral lower extremities, deep tendon reflexes normal bilaterally. ASSESSMENT AND PLAN: 1. Stage IV decubitus ulcer coccyx, failed outpatient treatment status post outpatient debridement and antibiotics with Levaquin. Consult Dr. Hartman for surgical debridement in the OR, consult Dr. Strickland for antibiotic recommendations, aerobic and anaerobic cultures to be obtained. Currently on Kefzol. 2. Deep tissue injury to the right heel and small area on the right plantar surface. Offloading and simple dressing. 3. History of recent septic arthritis of the left knee and MSSA bacteremia s/p debridement of the left knee on last admission. Continue Kefzol which will be completed on 09/27. Consult with Dr. Strickland. 4. Recent left heart catheterization with PCI of the RCA on 07/30/2020 Continue patient on aspirin 81 g once every day, Plavix 75 mg orally once every day, Lopressor 50 mg twice daily, atorvastatin 80 mg once every day. Cardiology c onsult. 5. Hypertension and hypertensive cardiovascular disease. Continue the patient on Lopressor. 8. Hyperlipidemia. Continue patient on atorvastatin 80 mg orally once every day. 9. Diabetes mellitus type 2. Start the patient on sliding scale insulin along with Lantus 22 units at bedtime. 10. History of prostate cance status post rotation. Stable at this time. 11. 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 Continue current pain management. 12. DVT prophylaxis. Bilateral knee-high ADAIR hose. Avoid heparin for now. 13. GI prophylaxis. Protonix 40 mg orally twice daily. 14. Admit to inpatient. Estimate a length of stay 2 midnights. 15. Patient is full code. DISCHARGE PLAN Return to [facility] Impression and plan of care have been directed as dictated by the signing physician. Padma Monsalve nurse practitioner acting as scribe for signing physician. Past Medical History Past Medical History: Atrial Fibrillation, Coronary Artery Disease (CAD), Cancer, Chest Pain / Angina, Diabetes Mellitus, GERD/Reflux, Hyperlipidemia, Hypertension, Osteoarthritis (OA), Prostate Disorder Additional Past Medical History / Comment(s): 5 Herniated discs in neck causing headaches & numbness in arm and right lower back and pain and right leg pain. Hx 4 fx ribs, current Prostate Cancer- last radiation tx Mar 25 had total of 44 tx. occ constipation, Last Myocardial Infarction Date:: UNKOWN History of Any Multi-Drug Resistant Organisms: None Reported Past Surgical History: Adenoidectomy, Heart Catheterization, Heart Catheterization With Stent, Joint Replacement, Orthopedic Surgery, Tonsillectomy Additional Past Surgical History / Comment(s): PROSTATE BX., LT. KNEE ARTH ROSCOPY X 2, CERVICAL FUSIONS, COLONOSCOPY, ÁNGEL. CATARTACTS.Pain Procedures , rt radio frequency procedures. , total 3 heart stents, hemorrhoidectomy,heart cath August 2017-lt knee replacement. Stent replacement \2020 Past Anesthesia/Blood Transfusion Reactions: No Reported Reaction Additional Past Anesthesia/Blood Transfusion Reaction / Comment(s): doesn't like enclosed tight spaces Date of Last Stent Placement:: 04/24/17 Past Psychological History: No Psychological Hx Reported Additional Psychological History / Comment(s): Pt resides mostly alone. He has a young woman that he considers a meredith who stays occasionally with him. Smoking Status: Former smoker Past Alcohol Use History: None Reported Additional Past Alcohol Use History / Comment(s): Pt started smoking in 1981 smoked for 2 yrs, smoked 1/2 ppd. 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 Past Drug Use History: None Reported - Past Family History Father Additional Family Medical History / Comment(s): Father at age 49 from coronary artery disease. Brother(s) Additional Family Medical History / Comment(s): Patient has one brother with history of smoking and no other major medical problems. Patient does not have any sisters. Daughter(s) Additional Family Medical History / Comment(s): He has one daughter alive in [place] with no major medical problems. Patient has one daughter with history of muscular dystrophy and of pneumonia. Son(s) Family Medical History: No Reported History Additional Family Medical History / Comment(s): Patient has one son with no major medical problems. Mother Family Medical History: Cancer Additional Family Medical History / Comment(s): Mother at age 81 from uterine cancer with metastatic disease. Medications and Allergies Home Medications Medication Instructions Recorded Confirmed Type Aspirin [[place] Aspirin EC] 81 mg PO DAILY@0800 08/05/20 09/17/20 History Ipratropium-Albuterol Nebulize 3 ml INHALATION RT-QID PRN ml 08/16/20 09/17/20 Rx [Duoneb 0.5 mg-3 mg/3 ml Soln] methocarbamoL [Robaxin] 750 mg PO TID PRN tab 08/16/20 09/17/20 Rx 0.9 % Sodium Chloride [Sodium 1 applic IV TID@0600,1400,2200 09/01/20 09/17/20 History Chloride Flush] Acetaminophen Tab [Tylenol] 1,000 mg PO Q6HR PRN 09/01/20 09/17/20 History Atorvastatin [Lipitor] 80 mg PO HS@2100 09/01/20 09/17/20 History Clopidogrel [Plavix] 75 mg PO DAILY@0800 09/01/20 09/17/20 History HYDROcodone/APAP 10-325MG [[place] 1 tab PO BID PRN 09/01/20 09/17/20 History 10-325] INSULIN ASPART (NovoLOG) [NovoLOG See Protocol SQ ACHS 09/01/20 09/17/20 History (formulary)] Insulin Detemir (Levemir) [Levemir] 22 unit SQ HS@2100 09/01/20 09/17/20 History Lactose-Reduced Food [Ensure Plus] 1 can PO BID@0800,1700 09/01/20 09/17/20 History Lidocaine Cream 5% 1 applic TOPICAL DAILY PRN 09/01/20 09/17/20 History Magnesium Hydroxide [Milk of 7,200 mg PO DAILY PRN 09/01/20 09/17/20 History Magnesia Concentrate] Mirtazapine 7.5 mg PO HS@2100 09/01/20 09/17/20 History Na Phos,M-B/Na Phos,Di-Ba [Fleet 133 ml RECTAL DAILY PRN 09/01/20 09/17/20 History Adult] Pantoprazole [Protonix] 40 mg PO BID@0800,1700 09/01/20 09/17/20 History Potassium Chloride ER [K-Dur 20] 20 meq PO DAILY@1700 09/01/20 09/17/20 History bisacodyL [Dulcolax] 10 mg RECTAL DAILY PRN 09/01/20 09/17/20 History Ivan Packet 1 packet PO BID@1200,2000 09/17/20 09/17/20 History Levofloxacin [Levaquin] 500 mg PO DAILY@0800 09/17/20 09/17/20 History Metoprolol Tartrate [Lopressor] 50 mg PO BID@0800,1700 09/17/20 09/17/20 History Nystatin 100,000Unit/gm Cream 1 applic TOPICAL QID 09/17/20 09/17/20 History [Mycostatin Cream] ceFAZolin [Kefzol] 2,000 mg IV Q8HR 09/17/20 09/17/20 History Allergies Allergy/AdvReac Type Severity Reaction Status Date / Time No Known Allergies Allergy Verified 09/17/20 13:04 Physical Exam Vitals: Vital Signs Temp Pulse Pulse Resp BP BP Pulse Ox 09/18/20 05:48 97.8 F 104 H 18 116/70 95 09/17/20 21:35 101 H 18 09/17/20 20:19 99.3 F 101 H 18 96 09/17/20 18:27 99.0 F 101 H 18 122/72 97 09/17/20 17:00 101 H 18 122/72 97 09/17/20 16:00 100 18 136/78 97 09/17/20 15:00 101 H 18 147/69 97 09/17/20 14:00 99.0 F 100 18 129/67 97 09/17/20 13:23 99.0 F 100 18 129/67 97 09/17/20 12:32 99.0 F 115 H 18 116/66 97 09/17/20 11:41 99 F 115/65 Intake and Output 09/17/20 09/18/20 09/18/20 22:59 06:59 14:59 Output Total 825 Balance -825 Output: Urine 825 Uretheral (Shelley) 225 Other: Voiding Method Indwelling Catheter Weight 108.862 kg Results CBC & Chem 7: 09/18/20 07:26 09/18/20 07:26 Labs: Abnormal Lab Results - Last 24 Hours (Table) 09/17/20 09/17/20 09/17/20 Range/Units 13:30 13:30 13:30 WBC 2.9 L (3.8-10.6) k/uL RBC 2.71 L (4.30-5.90) m/uL Hgb 7.8 L (13.0-17.5) gm/dL Hct 24.2 L (39.0-53.0) % RDW 16.5 H (11.5-15.5) % Lymphocytes # 0.4 L (1.0-4.8) k/uL PT 14.0 H (9.0-12.0) sec INR 1.4 H (<1.2) Sodium 135 L (137-145) mmol/L Glucose 104 H (74-99) mg/dL POC Glucose (mg/dL) (75-99) mg/dL Calcium 8.1 L (8.4-10.2) mg/dL Total Protein 6.0 L (6.3-8.2) g/dL Albumin 2.6 L (3.5-5.0) g/dL 09/17/20 09/17/20 09/18/20 Range/Units 17:41 20:36 06:45 WBC (3.8-10.6) k/uL RBC (4.30-5.90) m/uL Hgb (13.0-17.5) gm/dL Hct (39.0-53.0) % RDW (11.5-15.5) % Lymphocytes # (1.0-4.8) k/uL PT (9.0-12.0) sec INR (<1.2) Sodium (137-145) mmol/L Glucose (74-99) mg/dL POC Glucose (mg/dL) 107 H 136 H 104 H (75-99) mg/dL Calcium (8.4-10.2) mg/dL Total Protein (6.3-8.2) g/dL Albumin (3.5-5.0) g/dL
[2020-09-18 11:28] LABS: Glucose,Whole Blood 114 mg/dL (75-99)
[2020-09-18] MEDS: CLOPIDOGREL 75 MG TAB PO SCH (11:45)
--- NOTE | 2020-09-18 11:47 | P.GSCN ---
History of Present Illness Consult date: 09/18/20 Reason for Consult: Sacral decubitus ulcer History of present illness: 75-year-old male comes in the ER complaining of a worsening ulcer in the sacral region. Patient was admitted 1 month ago for septic arthritis. Patient has been significantly immobile because of that and chronic active pain. During his last hospital stay he had gastric distention and I performed an EGD at that time. Patient was transferred from [facility] to the hospital for evaluation of worsening sacral decubitus ulcer. Infectious disease has been consulted. Patie nt complains of pain in the sacral wound region. Patient has been mildly tachycardic. White blood cell count 2.5. Patient is on Plavix for previous stent placement. Review of Systems The patient denies any acute changes in vision or hearing, no dysphagia or odynophagia, no chest pain or shortness of breath, no dysuria or hematuria, no headache, no runny nose, no rectal bleeding or melena Past Medical History Past Medical History: Atrial Fibrillation, Coronary Artery Disease (CAD), Cancer, Chest Pain / Angina, Diabetes Mellitus, GERD/Reflux, Hyperlipidemia, Hypertension, Osteoarthritis (OA), Prostate Disorder Additional Past Medical History / Comment(s): 5 Herniated discs in neck causing headaches & numbness in arm and right lower back and pain and right leg pain. Hx 4 fx ribs, current Prostate Cancer- last radiation tx Mar 25-2016 had total of 44 tx. occ constipation, Last Myocardial Infarction Date:: UNKOWN History of Any Multi-Drug Resistant Organisms: None Reported Past Surgical History: Adenoidectomy, Heart Catheterization, Heart Catheterization With Stent, Joint Replacement, Orthopedic Surgery, Tonsillectomy Additional Past Surgical History / Comment(s): PROSTATE BX., LT. KNEE ARTH ROSCOPY X 2, CERVICAL FUSIONS, COLONOSCOPY, ÁNGEL. CATARTACTS.Pain Procedures , rt radio frequency procedures. , total 3 heart stents, hemorrhoidectomy,heart cath August 2017-lt knee replacement. Stent replacement Past Anesthesia/Blood Transfusion Reactions: No Reported Reaction Additional Past Anesthesia/Blood Transfusion Reaction / Comm: doesn't like enclosed tight spaces Date of Last Stent Placement:: 04/24/17 Past Psychological History: No Psychological Hx Reported Additional Psychological History / Comment(s): Pt resides mostly alone. He has a young woman that he considers a meredith who stays occasionally with him. Smoking Status: Former smoker Past Alcohol Use History: None Reported Additional Past Alcohol Use History / Comment(s): Pt started smoking in 1981 smoked for 2 yrs, smoked 1/2 ppd. 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 Past Drug Use History: None Reported - Past Family History Father Additional Family Medical History / Comment(s): Father at age 49 from coronary artery disease. Brother(s) Additional Family Medical History / Comment(s): Patient has one brother with history of smoking and no other major medical problems. Patient does not have any sisters. Daughter(s) Additional Family Medical History / Comment(s): He has one daughter alive in [place] with no major medical problems. Patient has one daughter with history of muscular dystrophy and of pneumonia. Son(s) Family Medical History: No Reported History Additional Family Medical History / Comment(s): Patient has one son with no major medical problems. Mother Family Medical History: Cancer Additional Family Medical History / Comment(s): Mother at age 81 from uterine cancer with metastatic disease. Medications and Allergies Home Medications Medication Instructions Recorded Confirmed Type Aspirin [[place] Aspirin EC] 81 mg PO DAILY@0800 08/05/20 09/17/20 History Ipratropium-Albuterol Nebulize 3 ml INHALATION RT-QID PRN ml 08/16/20 09/17/20 Rx [Duoneb 0.5 mg-3 mg/3 ml Soln] methocarbamoL [Robaxin] 750 mg PO TID PRN tab 08/16/20 09/17/20 Rx 0.9 % Sodium Chloride [Sodium 1 applic IV TID@0600,1400,2200 09/01/20 09/17/20 History Chloride Flush] Acetaminophen Tab [Tylenol] 1,000 mg PO Q6HR PRN 09/01/20 09/17/20 History Atorvastatin [Lipitor] 80 mg PO HS@2100 09/01/20 09/17/20 History Clopidogrel [Plavix] 75 mg PO DAILY@0800 09/01/20 09/17/20 History HYDROcodone/APAP 10-325MG [[place] 1 tab PO BID PRN 09/01/20 09/17/20 History 10-325] INSULIN ASPART (NovoLOG) [NovoLOG See Protocol SQ ACHS 05/16/21 06/01/21 History (formulary)] Insulin Detemir (Levemir) [Levemir] 22 unit SQ HS@209909/01/20 09/17/20 History Lactose-Reduced Food [Ensure Plus] 1 can PO BID@0800,1700 09/01/20 09/17/20 History Lidocaine Cream 5% 1 applic TOPICAL DAILY PRN 09/01/20 09/17/20 History Magnesium Hydroxide [Milk of 7,200 mg PO DAILY PRN 09/01/20 09/17/20 History Magnesia Concentrate] Mirtazapine 7.5 mg PO HS@2100 09/01/20 09/17/20 History Na Phos,M-B/Na Phos,Di-Ba [Fleet 133 ml RECTAL DAILY PRN 09/01/20 09/17/20 History Adult] Pantoprazole [Protonix] 40 mg PO BID@0800,1700 09/01/20 09/17/20 History Potassium Chloride ER [K-Dur 20] 20 meq PO DAILY@1700 09/01/20 09/17/20 History bisacodyL [Dulcolax] 10 mg RECTAL DAILY PRN 09/01/20 09/17/20 History Ivan Packet 1 packet PO BID@1200,2000 09/17/20 09/17/20 History Levofloxacin [Levaquin] 500 mg PO DAILY@0800 09/17/20 09/17/20 History Metoprolol Tartrate [Lopressor] 50 mg PO BID@0800,1700 09/17/20 09/17/20 History Nystatin 100,000Unit/gm Cream 1 applic TOPICAL QID 09/17/20 09/17/20 History [Mycostatin Cream] ceFAZolin [Kefzol] 2,000 mg IV Q8HR 09/17/20 09/17/20 History Allergies Allergy/AdvReac Type Severity Reaction Status Date / Time No Known Allergies Allergy Verified 09/17/20 13:04 Surgical - Exam Vital Signs Temp BP 99 F 115/65 09/17/20 11:41 09/17/20 11:41 Physical exam: General: Well-developed, well-nourished HEENT: Normocephalic, sclerae nonicteric Abdomen: Nontender, nondistended Extremities: No edema, large open wound over her sacral region necrotic tissue in the upper and right lateral region with some serous drainage, mild erythema surrounding it, significant tenderness, size 12 x 9 cm, wound depth 3-4 cm with tunneling 3-4 cm laterally to the right, bone is palpable Neuro: Alert and oriented Results - Labs 09/18/20 07:26 09/18/20 07:26 Abnormal Lab Results - Last 24 Hours (Table) 09/17/20 09/17/20 09/17/20 Range/Units 13:30 13:30 13:30 WBC 2.9 L (3.8-10.6) k/uL RBC 2.71 L (4.30-5.90) m/uL Hgb 7.8 L (13.0-17.5) gm/dL Hct 24.2 L (39.0-53.0) % RDW 16.5 H (11.5-15.5) % Lymphocytes # 0.4 L (1.0-4.8) k/uL PT 14.0 H (9.0-12.0) sec INR 1.4 H (<1.2) Sodium 135 L (137-145) mmol/L Glucose 104 H (74-99) mg/dL POC Glucose (mg/dL) (75-99) mg/dL Calcium 8.1 L (8.4-10.2) mg/dL Total Protein 6.0 L (6.3-8.2) g/dL Albumin 2.6 L (3.5-5.0) g/dL 09/17/20 09/17/20 09/18/20 Range/Units 17:41 20:36 06:45 WBC (3.8-10.6) k/uL RBC (4.30-5.90) m/uL Hgb (13.0-17.5) gm/dL Hct (39.0-53.0) % RDW (11.5-15.5) % Lymphocytes # (1.0-4.8) k/uL PT (9.0-12.0) sec INR (<1.2) Sodium (137-145) mmol/L Glucose (74-99) mg/dL POC Glucose (mg/dL) 107 H 136 H 104 H (75-99) mg/dL Calcium (8.4-10.2) mg/dL Total Protein (6.3-8.2) g/dL Albumin (3.5-5.0) g/dL 09/18/20 09/18/20 09/18/20 Range/Units 07:26 07:26 11:26 WBC 2.5 L (3.8-10.6) k/uL RBC 2.77 L (4.30-5.90) m/uL Hgb 8.1 L (13.0-17.5) gm/dL Hct 26.0 L (39.0-53.0) % RDW 16.7 H (11.5-15.5) % Lymphocytes # 0.5 L (1.0-4.8) k/uL PT (9.0-12.0) sec INR (<1.2) Sodium (137-145) mmol/L Glucose 103 H (74-99) mg/dL POC Glucose (mg/dL) 114 H (75-99) mg/dL Calcium 7.8 L (8.4-10.2) mg/dL Total Protein 5.6 L (6.3-8.2) g/dL Albumin 2.4 L (3.5-5.0) g/dL Diabetes panel 09/17/20 09/18/20 Range/Units 13:30 07:26 Sodium 135 L 138 (137-145) mmol/L Potassium 3.8 3.9 (3.5-5.1) mmol/L Chloride 102 105 (98-107) mmol/L Carbon Dioxide 29 28 (22-30) mmol/L BUN 11 9 (9-20) mg/dL Creatinine 0.78 0.82 (0.66-1.25) mg/dL Glucose 104 H 103 H (74-99) mg/dL Calcium 8.1 L 7.8 L (8.4-10.2) mg/dL AST 34 33 (17-59) U/L ALT <6 <6 (4-49) U/L Alkaline Phosphatase 79 68 (38-126) U/L Total Protein 6.0 L 5.6 L (6.3-8.2) g/dL Albumin 2.6 L 2.4 L (3.5-5.0) g/dL Calcium panel 09/17/20 09/18/20 Range/Units 13:30 07:26 Calcium 8.1 L 7.8 L (8.4-10.2) mg/dL Albumin 2.6 L 2.4 L (3.5-5.0) g/dL Pituitary panel 09/17/20 09/18/20 Range/Units 13:30 07:26 Sodium 135 L 138 (137-145) mmol/L Potassium 3.8 3.9 (3.5-5.1) mmol/L Chloride 102 105 (98-107) mmol/L Carbon Dioxide 29 28 (22-30) mmol/L BUN 11 9 (9-20) mg/dL Creatinine 0.78 0.82 (0.66-1.25) mg/dL Glucose 104 H 103 H (74-99) mg/dL Calcium 8.1 L 7.8 L (8.4-10.2) mg/dL Adrenal panel 09/17/20 09/18/20 Range/Units 13:30 07:26 Sodium 135 L 138 (137-145) mmol/L Potassium 3.8 3.9 (3.5-5.1) mmol/L Chloride 102 105 (98-107) mmol/L Carbon Dioxide 29 28 (22-30) mmol/L BUN 11 9 (9-20) mg/dL Creatinine 0.78 0.82 (0.66-1.25) mg/dL Glucose 104 H 103 H (74-99) mg/dL Calcium 8.1 L 7.8 L (8.4-10.2) mg/dL Total Bilirubin 0.3 0.3 (0.2-1.3) mg/dL AST 34 33 (17-59) U/L ALT <6 <6 (4-49) U/L Alkaline Phosphatase 79 68 (38-126) U/L Total Protein 6.0 L 5.6 L (6.3-8.2) g/dL Albumin 2.6 L 2.4 L (3.5-5.0) g/dL Assessment and Plan (1) Decubitus ulcer Narrative/Plan: 75-year-old male with large sacral decubitus ulcer. We were asked to see this patient for debridement. We'll schedule for tomorrow. Patient is on Plavix increasing risks of bleeding but risk of stent occlusion if we were to wait and hold the Plavix. We'll proceed with debridement while on Plavix. Patient is agreeable. Risks of bleeding, infection, wound enlargement, postoperative pain, inability to heal the wound, possible need for further surgeries reviewed. He understands and wishes to proceed. Current Visit: Yes Status: Acute Code(s): L89.90 - PRESSURE ULCER OF UNSPECIFIED SITE, UNSPECIFIED STAGE SNOMED Code(s): 799406149
--- NOTE | 2020-09-18 13:39 | P.CRDCN ---
History of Present Illness History of present illness: HISTORY OF PRESENTING ILLNESS This is a pleasant 75-year-old male past medical history significant for coronary artery disease, recent ST elevated myocardial infarction status post PCI at [facility] 07/28/2020, hypertension, dyslipidemia and diabetes mellitus. He follows in the office with Dr. Valencia. We have been asked to see in consultation for preoperative evaluation. He presented to the hospital from rehab with complaints of painful wound on his coccyx. He is s cheduled to undergo wound debridement tomorrow with Dr. Hartman. He plans to do this with plavix on board due to recent stent placement. The patient denie symptoms of chest pain, shortness of breath, dizziness or palpitations. He underwent a limited echocardiogram 08/09/2020 revealing preserved LV systolic function with ejection fraction 50-55%. DIAGNOSTICS EKG reveals sinus mechanism with T-wave inversions noted inferiorly in precordial leads. Consistent with previous EKG, no acute changes noted. Laboratory reviewed, WBC 2.5, hemoglobin 8.1, platelets 244, sodium 138, potassium 3.9, creatinine 0.82. Current cardiac medications include aspirin 81 mg daily, atorvastatin 80 mg daily, Plavix 75 mg daily, Lopressor 50 mg twice a day. REVIEW OF SYSTEMS At the time of my exam: CONSTITUTIONAL: Denies fever or chills. CARDIOVASCULAR: Denies chest pain, shortness of breath, orthopnea, PND or p alpitations. RESPIRATORY: Denies cough. GASTROINTESTINAL: Denies abdominal pain, diarrhea, constipation, nausea or vomiting. MUSCULOSKELETAL: Denies myalgias. NEUROLOGIC: Denies numbness, tingling, headacbe or weakness. ENDOCRINE: Denies fatigue, weight change, polydipsia or polyurina. GENITOURINARY: Denies burning, hematuria or urgency with micturation. HEMATOLOGIC: Denies history of anemia or bleeding. PHYSICAL EXAMINATION Blood pressure 114/69 heart rate 111 afebrile and maintaining oxygen saturation on room air. CONSTITUTIONAL: No apparent distress. Laying flat in bed. HEENT: Head is normocephalic. Pupils are equal, round. Sclerae anicteric. Mucous membranes of the mouth are moist. No JVD. No carotid bruit. CHEST EXAMINATION: Lungs are clear to auscultation. No chest wall tenderness is noted on palpation or with deep breathing. HEART EXAMINATION: Regular rate and rhythm. S1, S2 heard. No murmurs, gallops or rub. ABDOMEN: Soft, nontender. Positive bowel sounds. EXTREMITIES: 2+ peripheral pulses, trace lower extremity edema with wounds noted of the right knee and dressing in place to right lower extremity and no calf tenderness. NEUROLOGIC EXAMINATION: Patient is awake, alert and oriented x3. ASSESSMENT Sacral wound Pre-operative evaluation Coronary artery disease s/p PCI RCA in the setting of STEMI 07/28/2020 Ischemic cardiomyopathy, improved after PCI Hypertension Dyslipidemia Diabetes mellitus PLAN Clinically euvolemic and having no symptoms of angina. Stable to proceed with debridement on dual anti-platelet therapy. Dr. Hartman agreeable to proceed with this on board. He will be at an increased risk of bleeding. Thank you kindly for this consultation. Nurse Practitioner note has been reviewed, I agree with a documented findings and plan of care. Patient was seen and examined. Past Medical History Past Medical History: Atrial Fibrillation, Coronary Artery Disease (CAD), Cancer, Chest Pain / Angina, Diabetes Mellitus, GERD/Reflux, Hyperlipidemia, Hypertension, Osteoarthritis (OA), Prostate Disorder Additional Past Medical History / Comment(s): 5 Herniated discs in neck causing headaches & numbness in arm and right lower back and pain and right leg pain. Hx 4 fx ribs, current Prostate Cancer- last radiation tx Mar 25-2016 had total of 44 tx. occ constipation, Last Myocardial Infarction Date:: UNKOWN History of Any Multi-Drug Resistant Organisms: None Reported Past Surgical History: Adenoidectomy, Heart Catheterization, Heart Catheterization With Stent, Joint Replacement, Orthopedic Surgery, Tonsillectomy Additional Past Surgical History / Comment(s): PROSTATE BX., LT. KNEE ARTHROSCOPY X 2, CERVICAL FUSIONS, COLONOSCOPY, ÁNGEL. CATARTACTS.Pain Procedures , rt radio frequency procedures. , total 3 heart stents, hemorrhoidectomy,heart cath August 2017-lt knee replacement. Stent replacement \2020 Past Anesthesia/Blood Transfusion Reactions: No Reported Reaction Additional Past Anesthesia/Blood Transfusion Reaction / Comment(s): doesn't like enclosed tight spaces Date of Last Stent Placement:: 04/24/17 Past Psychological History: No Psychological Hx Reported Additional Psychological History / Comment(s): Pt resides mostly alone. He has a young woman that he considers a meredith who stays occasionally with him. Smoking Status: Former smoker Past Alcohol Use History: None Reported Additional Past Alcohol Use History / Comment(s): Pt started smoking in 1981 smoked for 2 yrs, smoked 1/2 ppd. 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 Past Drug Use History: None Reported - Past Family History Father Additional Family Medical History / Comment(s): Father at age 49 from coronary artery disease. Brother(s) Additional Family Medical History / Comment(s): Patient has one brother with history of smoking and no other major medical problems. Patient does not have any sisters. Daughter(s) Additional Family Medical History / Comment(s): He has one daughter alive in [place] with no major medical problems. Patient has one daughter with history of muscular dystrophy and of pneumonia. Son(s) Family Medical History: No Reported History Additional Family Medical History / Comment(s): Patient has one son with no sven or medical problems. Mother Family Medical History: Cancer Additional Family Medical History / Comment(s): Mother at age 81 from uterine cancer with metastatic disease. Medications and Allergies Home Medications Medication Instructions Recorded Confirmed Type Aspirin [[place] Aspirin EC] 81 mg PO DAILY@0800 08/05/20 09/17/20 History Ipratropium-Albuterol Nebulize 3 ml INHALATION RT-QID PRN ml 08/16/20 09/17/20 Rx [Duoneb 0.5 mg-3 mg/3 ml Soln] methocarbamoL [Robaxin] 750 mg PO TID PRN tab 08/16/20 09/17/20 Rx 0.9 % Sodium Chloride [Sodium 1 applic IV TID@0600,1400,2200 09/01/20 09/17/20 History Chloride Flush] Acetaminophen Tab [Tylenol] 1,000 mg PO Q6HR PRN 09/01/20 09/17/20 History Atorvastatin [Lipitor] 80 mg PO HS@2100 09/01/20 09/17/20 History Clopidogrel [Plavix] 75 mg PO DAILY@0800 09/01/20 09/17/20 History HYDROcodone/APAP 10-325MG [[place] 1 tab PO BID PRN 09/01/20 09/17/20 History 10-325] INSULIN ASPART (NovoLOG) [NovoLOG See Protocol SQ ACHS 09/01/20 09/17/20 History (formulary)] Insulin Detemir (Levemir) [Levemir] 22 unit SQ HS@209909/01/20 09/17/20 History Lactose-Reduced Food [Ensure Plus] 1 can PO BID@0800,1700 09/01/20 09/17/20 History Lidocaine Cream 5% 1 applic TOPICAL DAILY PRN 09/01/20 09/17/20 History Magnesium Hydroxide [Milk of 7,200 mg PO DAILY PRN 09/01/20 09/17/20 History Magnesia Concentrate] Mirtazapine 7.5 mg PO HS@2100 09/01/20 09/17/20 History Na Phos,M-B/Na Phos,Di-Ba [Fleet 133 ml RECTAL DAILY PRN 09/01/20 09/17/20 History Adult] Pantoprazole [Protonix] 40 mg PO BID@0800,1700 09/01/20 09/17/20 History Potassium Chloride ER [K-Dur 20] 20 meq PO DAILY@1700 09/01/20 09/17/20 History bisacodyL [Dulcolax] 10 mg RECTAL DAILY PRN 09/01/20 09/17/20 History Ivan Packet 1 packet PO BID@1200,2000 09/17/20 09/17/20 History Levofloxacin [Levaquin] 500 mg PO DAILY@0800 09/17/20 09/17/20 History Metoprolol Tartrate [Lopressor] 50 mg PO BID@0800,1700 09/17/20 09/17/20 History Nystatin 100,000Unit/gm Cream 1 applic TOPICAL QID 09/17/20 09/17/20 History [Mycostatin Cream] ceFAZolin [Kefzol] 2,000 mg IV Q8HR 09/17/20 09/17/20 History Allergies Allergy/AdvReac Type Severity Reaction Status Date / Time No Known Allergies Allergy Verified 09/17/20 13:04 Physical Exam Vitals: Vital Signs Temp Pulse Pulse Resp BP BP Pulse Ox 09/18/20 07:07 97.5 F L 111 H 18 114/69 93 L 09/18/20 05:48 97.8 F 104 H 18 116/70 95 09/17/20 21:35 101 H 18 09/17/20 20:19 99.3 F 101 H 18 96 09/17/20 18:27 99.0 F 101 H 18 122/72 97 09/17/20 17:00 101 H 18 122/72 97 09/17/20 16:00 100 18 136/78 97 09/17/20 15:00 101 H 18 147/69 97 09/17/20 14:00 99.0 F 100 18 129/67 97 Intake and Output 09/17/20 09/18/20 09/18/20 22:59 06:59 14:59 Output Total 825 Balance -825 Output: Urine 825 Uretheral (Shelley) 225 Other: Voiding Method Indwelling Catheter Indwelling Catheter Weight 108.862 kg Results 09/18/20 07:26 09/18/20 07:26 Cardiac Enzymes 09/17/20 09/18/20 Range/Units 13:30 07:26 AST 34 33 (17-59) U/L Coagulation 09/17/20 Range/Units 13:30 PT 14.0 H (9.0-12.0) sec APTT 26.8 (22.0-30.0) sec CBC 09/17/20 09/18/20 Range/Units 13:30 07:26 WBC 2.9 L 2.5 L (3.8-10.6) k/uL RBC 2.71 L 2.77 L (4.30-5.90) m/uL Hgb 7.8 L 8.1 L (13.0-17.5) gm/dL Hct 24.2 L 26.0 L (39.0-53.0) % Plt Count 238 244 (150-450) k/uL Comprehensive Metabolic Panel 09/17/20 09/18/20 Range/Units 13:30 07:26 Sodium 135 L 138 (137-145) mmol/L Potassium 3.8 3.9 (3.5-5.1) mmol/L Chloride 102 105 (98-107) mmol/L Carbon Dioxide 29 28 (22-30) mmol/L BUN 11 9 (9-20) mg/dL Creatinine 0.78 0.82 (0.66-1.25) mg/dL Glucose 104 H 103 H (74-99) mg/dL Calcium 8.1 L 7.8 L (8.4-10.2) mg/dL AST 34 33 (17-59) U/L ALT <6 <6 (4-49) U/L Alkaline Phosphatase 79 68 (38-126) U/L Total Protein 6.0 L 5.6 L (6.3-8.2) g/dL Albumin 2.6 L 2.4 L (3.5-5.0) g/dL Current Medications Generic Name Dose Route Start Last Admin Trade Name Freq PRN Reason Stop Dose Admin Acetaminophen 1,000 mg 09/17/20 15:26 Acetaminophen Tab 500 Mg Tab PO Q6HR PRN Fever and/ or Pain Hydrocodone Bitart/Acetaminophen 1 each 09/17/20 15:26 09/18/20 09:20 Hydrocodone/Apap 10-325mg 1 Each Tab PO 1 each BID PRN Administration Pain Albuterol/Ipratropium 3 ml 09/17/20 15:26 Ipratropium-Albuterol 3 Ml Neb INHALATION RT-QID PRN Shortness Of Breath Or Wheezing Aspirin 81 mg 09/18/20 08:00 09/18/20 09:20 Aspirin 81 Mg PO 81 mg DAILY@0800 LAURA Administration Atorvastatin Calcium 80 mg 09/17/20 21:00 09/17/20 22:26 Atorvastatin 80 Mg Tab PO 80 mg HS@2100 LAURA Administration Bisacodyl 10 mg 09/17/20 15:26 Bisacodyl 10 Mg Supp RECTAL DAILY PRN Constipation Clopidogrel Bisulfate 75 mg 09/18/20 08:00 09/18/20 11:45 Clopidogrel 75 Mg Tab PO Not Given DAILY@0800 LAURA Hydromorphone HCl 0.5 mg 09/17/20 15:25 09/18/20 09:21 Hydromorphone 0.5 Mg/0.5 Ml Syringe IVP 0.5 mg Q3HR PRN Administration Moderate Pain Sodium Chloride 1,000 mls @ 75 mls/hr 09/17/20 15:30 09/18/20 06:12 Saline 0.9% IV Not Given .[id number] LAURA Cefazolin Sodium 2 gm/ Sodium 50 mls @ 100 mls/hr 09/18/20 08:00 09/18/20 09:20 Chloride IVPB 100 mls/hr Q8HR LAURA Administration Insulin Aspart 0 unit 09/17/20 17:30 09/18/20 13:08 Insulin Aspart (Novolog) 100 Unit/Ml Vial SQ Not Given ACHS [facility] Protocol Insulin Detemir 22 unit 09/18/20 21:00 Insulin Detemir (Levemir) 100 Unit/Ml Syr SQ HS@2100 [facility] Magnesium Hydroxide 7,200 mg 09/17/20 15:26 Magnesium Hydroxide 2,400 Mg/10 Ml Cup PO DAILY PRN Constipation Methocarbamol 750 mg 09/17/20 15:26 Methocarbamol 750 Mg Tab PO TID PRN Muscle Spasm Metoprolol Tartrate 50 mg 09/17/20 17:00 09/18/20 09:20 Metoprolol Tartrate 50 Mg Tab PO 50 mg BID@0800,1700 [facility] Administration Mirtazapine 7.5 mg 09/17/20 21:00 09/17/20 22:26 Mirtazapine 15 Mg Tab PO 7.5 mg HS@2100 [facility] Administration Naloxone HCl 0.2 mg 09/17/20 15:25 Naloxone 0.4 Mg/Ml 1 Ml Vial IV Q2M PRN Opioid Reversal Nystatin 1 applic 09/17/20 18:00 09/18/20 11:45 Nystatin 100,000unit/Gm Cream 30 Gm Tube TOPICAL Not Given QID [facility] Ondansetron HCl 4 mg 09/17/20 15:25 Ondansetron 4 Mg/2 Ml Vial IVP Q8HR PRN Nausea And Vomiting Pantoprazole Sodium 40 mg 09/17/20 17:00 09/18/20 09:20 Pantoprazole 40 Mg Tablet PO 40 mg BID@0800,1700 [facility] Administration Potassium Chloride 20 meq 09/17/20 17:00 09/18/20 09:20 Potassium Chloride Er 20 Meq Tab.Er PO 20 meq DAILY@1700 [facility] Administration Sodium Biphosphate/Sodium Phosphate 133 ml 09/17/20 15:26 Na Phos,M-B/Na Phos,Di-Ba 133 Ml Enema RECTAL DAILY PRN Constipation Intake and Output 09/17/20 09/18/20 09/18/20 22:59 06:59 14:59 Output Total 825 Balance -825 Output: Urine 825 Uretheral (Shelley) 225 Other: Voiding Method Indwelling Catheter Indwelling Catheter Weight 108.862 kg 09/18/20 07:26 09/18/20 07:26
[2020-09-18 15:27] VITALS: BMI 31.6
[2020-09-18 16:56] LABS: Glucose,Whole Blood 108 mg/dL (75-99)
[2020-09-18 20:45] LABS: Glucose,Whole Blood 110 mg/dL (75-99)
[2020-09-18] MEDS: AMPICILLIN-SULBACTAM 3 GM in SODIUM CHLORIDE 0.9% 100 ML IVPB SCH (22:46)
[2020-09-18] MEDS: MIRTAZAPINE 15 MG TAB PO SCH (22:47)
[2020-09-18] MEDS: INSULIN DETEMIR (LEVEMIR) 100 UNIT/ML SYR SQ SCH (22:48)
[2020-09-18] MEDS: ATORVASTATIN 80 MG TAB PO SCH (22:48)
[2020-09-19] MEDS: HYDROmorphone 0.5 MG/0.5 ML SYRINGE IVP PRN ×2 (02:19→10:37)
[2020-09-19] MEDS: AMPICILLIN-SULBACTAM 3 GM in SODIUM CHLORIDE 0.9% 100 ML IVPB SCH ×4 (06:23→23:47)
[2020-09-19] MEDS: PANTOPRAZOLE 40 MG TABLET PO SCH ×2 (08:11→17:33)
[2020-09-19] MEDS: METOPROLOL TARTRATE 50 MG TAB PO SCH ×2 (08:11→17:33)
[2020-09-19] MEDS: SODIUM CHLORIDE 0.9% 1,000 ML IV SCH ×2 (08:18→21:20)
[2020-09-19] MEDS: INSULIN ASPART (NovoLOG) 100 UNIT/ML VIAL SQ SCH ×4 (08:18→21:13)
[2020-09-19] MEDS: ASPIRIN 81 MG PO SCH (08:19)
[2020-09-19] MEDS: NYSTATIN 100,000UNIT/GM CREAM 30 GM TUBE TOPICAL SCH ×4 (08:19→21:13)
[2020-09-19] MEDS: CLOPIDOGREL 75 MG TAB PO SCH (08:19)
[2020-09-19 08:33] LABS: Glucose,Whole Blood 97 mg/dL (75-99)
--- NOTE | 2020-09-19 08:41 | CONS ---
CONSULTATION DATE OF SERVICE: 09/18/2020 REASON FOR CONSULTATION: Infected sacral pressure ulcer. HISTORY OF PRESENT ILLNESS: The patient is a 75-year-old male who was recently admitted to this facility in this patient who did have left knee septic arthritis secondary to MSSA, status post washout. The patient was discharged to the [facility] for inpatient rehabilitation and IV antibiotic therapy on 08/15/2020. The patient apparently has developed a pressure ulcer, not sure if started at the hospital or at the skilled nursing. However, he did have progressive worsening of his sacral wound and has been complaining of sacral wound to be painful, describing the pain to be sharp in intensity almost 10/10 and did have foul-smelling drainage. The patient's wound was been taking care of by a wound care physician at the skilled nursing. However, the patient is not sure what kind of dressing was being applied to it. With worsening of this wound, the patient has been sent to the ER for further evaluation. On arrival to the ER, the patient did have a low-grade fever of 99 degrees Fahrenheit. The patient did have leukopenia with white count 2.5. Kidney function was normal. He did have a CT of the sacral area that did shows ulceration, did not mention any osteomyelitis. The patient was continued on cefazolin 2 grams q.8 hours. Infectious Disease was consulted for further management. The patient has been evaluated by General Surgery and is planning for the surgical debridement of this wound in the a.m. Infectious Disease was consulted for management of his antibiotic therapy. REVIEW OF SYSTEMS: Positive points have been mentioned in HPI. Rest of systems are negative. PAST MEDICAL HISTORY: Left knee septic arthritis with MSSA with MSSA bacteremia, atrial fibrillation, coronary artery disease, diabetes mellitus, GERD, hypertension, hyperlipidemia, osteoarthritis and prostate disorder. PAST SURGICAL HISTORY: Adenoidectomy, heart catheterization with stent placement, left knee arthroscopy, cervical fusion, colonoscopy, cataract surgery, left knee replacement. SOCIAL HISTORY: Remote history of smoking. No drinking or drug use. FAMILY HISTORY: Father from a heart attack at age of 49. ALLERGIES: No known drug allergies. MEDICATIONS: The patient is currently on Tylenol, [place], DuoNeb, cefazolin 2 gram q8h. He is on aspirin, Lipitor, Dulcolax, Plavix, Dilaudid, NovoLog, Levemir, Levoxyl, Lopressor, Narcan, Zofran, Protonix and K-Dur. PHYSICAL EXAMINATION: VITAL SIGNS: Blood pressure 122/71, pulse 104, temperature 98.3, he is 95% on room air. GENERAL DESCRIPTION: The patient is an elderly male lying in bed in no distress. No tachypnea or accessory muscles of respiration use. HEENT: Examination shows pallor, no scleral icterus. Oral mucous membrane is dry. No pharyngeal erythema or thrush. NECK: Trachea central, no thyromegaly. LUNGS: Unlabored breathing, clear to auscultation anteriorly. HEART: S1-S2, regular rate and rhythm. ABDOMEN: Soft, no redness, no guarding or rigidity. EXTREMITIES: No edema of the feet. Left knee currently with no swelling or redness or any drainage. SKIN: Examination of the sacral area did show stage IV sacral pressure ulcer significantly deep with slough tissue and foul-smelling drainage. Right heel did have an unstageable pressure ulcer, no drainage. NEUROLOGICAL: Patient is awake, alert, oriented two. Mood and affect normal. LABS: Hemoglobin 8.1, white count 2.5, BUN of 9, creatinine 0.82. Blood culture obtained currently pending. DIAGNOSTIC IMPRESSION: 1. Patient with infected sacral pressure ulcer stage IV with significant deep wound exposure of the muscle tissue, significant slough and concern for secondary infection. Will need to cover for the polymicrobial pathogen associated with this infection. 2. Patient with unstageable pressure ulcer of the right heel area with no evidence of any cellulitis. PLAN: 1. Await surgical debridement and deep cultures. 2. We will start vancomycin and Unasyn 3 grams q.6 hours. 3. Local wound care with pressure dressing for now until the patient did have debridement of the wound. 4. Heel protectors to the right heel area. 5. We will follow on his clinical condition and further adjust medication if needed. Thank you for this consultation. Will follow this patient along with you. MMODL / IJN: [id number] / CHASITY
[2020-09-19 08:55] LABS: ALT <6 U/L (4-49); AST 33 U/L (17-59); African American GFR (CKD) >90 (>60 ml/min/1.73 sqM); Albumin 2.3 g/dL (3.5-5.0); Albumin/Globulin Ratio 0.7; Alkaline Phosphatase 66 U/L (38-126); Anion Gap 4 mmol/L; Blood Urea Nitrogen 6 mg/dL (9-20); Calcium 7.5 mg/dL (8.4-10.2); Carbon Dioxide 27 mmol/L (22-30); Chloride 106 mmol/L (98-107); Globulin 3.1 g/dL; Glucose 87 mg/dL (74-99); Non-African American GFR(CKD) 89 (>60 ml/min/1.73 sqM); Potassium 3.9 mmol/L (3.5-5.1); Sodium 137 mmol/L (137-145); Total Bilirubin 0.3 mg/dL (0.2-1.3); Total Protein 5.4 g/dL (6.3-8.2)
[2020-09-19 09:04] LABS: INR 1.7 (<1.2); Prothrombin Time 16.7 sec (9.0-12.0)
[2020-09-19 09:30] LABS: Anisocytosis Slight; Basophils % (A) 0 %; Eosinophils % (A) 0 %; HCT 24.1 % (39.0-53.0); HGB 7.4 gm/dL (13.0-17.5); Hypochromasia Marked; Lymphocytes # (A) 0.7 k/uL (1.0-4.8); Lymphocytes % (A) 23 %; MCH 28.2 pg (25.0-35.0); MCHC 30.7 g/dL (31.0-37.0); MCV 91.8 fL (80.0-100.0); Mean Platelet Volume 7.2; Monocytes # (A) 0.2 k/uL (0-1.0); Monocytes % (A) 6 %; Neutrophils # (A) 1.9 k/uL (1.3-7.7); Neutrophils % (A) 67 %; Platelet Count 250 k/uL (150-450); Poikilocytosis Moderate; RBC 2.63 m/uL (4.30-5.90); RDW 16.9 % (11.5-15.5); WBC 2.9 k/uL (3.8-10.6)
[2020-09-19 12:07] LABS: Glucose,Whole Blood 98 mg/dL (75-99)
--- NOTE | 2020-09-19 14:01 | PN ---
PROGRESS NOTE DATE OF SERVICE: 09/19/2020 REASON FOR FOLLOWUP: Sacral pressure ulcer and right heel pressure ulcer. INTERVAL HISTORY: The patient is afebrile. The patient is currently waiting for surgical debridement of the sacral wound. The patient denies having any chest pain or shortness of breath. No cough. No nausea. No abdominal pain. No diarrhea. Denies pain to the left knee area. PHYSICAL EXAMINATION: Blood pressure 119/71 with a pulse of 77. Temperature 97.6. He is 97% on room air. General description is an elderly male lying in bed in no distress. Respiratory system: Unlabored breathing, clear to auscultation anteriorly. Heart S1, S2. Regular rate and rhythm. Abdomen soft. Extremities: Some swelling. No redness. Incision is healed. LABS: Hemoglobin is 7.4, white count 2.9, BUN of 6, creatinine 0.75. DIAGNOSTIC IMPRESSION AND PLAN: 1. Patient with infected sacral pressure ulcer awaiting for surgical debridement and deep cultures. The patient is covered with Unasyn to continue. Discharge antibiotic will depend on the culture report and monitor clinical course closely. 2. Right heel unstageable pressure ulcer. Continue with heel protectors. MMODL / IJN: [id number] /
--- NOTE | 2020-09-19 14:26 | P.PN ---
Subjective Progress Note Date: 09/19/20 HISTORY OF PRESENT ILLNESS: This is a 75-year-old male patient of Dr. 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 as well as radio frequency ablation, prostate cancer status post radiation therapy, patient took himself off the Plavix due to significant bruising and bleeding against 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 [place] [facility] then had admission August 05 through August 16 at which time he was treated for septic arthritis of the left knee with persistent MSSA bacteremia status post I&D of the left total knee. He also suffered from lactic acidosis, thrombocytopenia secondary to sepsis, acute kidney injury. Patient was stabilized and discharged to [facility] for subacute rehab. Patient was continued on for a 6 week course. Unfortunately, patient developed C. difficile colitis treated with oral vancomycin. Patient has done very little physical therapy and in bed most the time, developed decubitus ulcer with worsening to the coccyx area. Patient also has a deep pressure injury to the right heel and plantar surface of the right foot. He has been treated by the wound team at [facility] and underwent debridement but was unfortunately have continued to worsen and he now has bone visualized in the coccyx wound as well as necrotic tissue and was transferred to [facility] emergency center to be evaluated by general surgery for surgical debridement in the OR. Consult added for Dr. Strickland and cardiology. 09/19: She is scheduled today for debridement of the decubitus ulcer at this coccyx with Dr. Hartman. Patient has been seen by Dr. Lucio and he has recommended Unasyn. Patient states his pain is okay at this time. He is been started on Glucerna but patient is not drinking this. Patient encouraged to increase protein intake. Repeat blood work reveals WBC 2.9, hemoglobin 7.4, platelet count 250. INR 1.7. Electrolytes normal. BUN 6 and creatinine 0.75. Blood sugars running between 97 and 110. Calcium 7.5. Wound cultures in progress as well as blood cultures showing no growth. One dose of Ferrlecit ordered. Patient has no signs of bleeding. 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 Consult with oncology added. REVIEW OF SYSTEMS: Constitutional: Denies fever, denies chills, no night sweats, fatigue , reported lethargy reported weight loss. HEENT: No headache. No blurred vision or double vision, no loss of vision. No loss of Hearing, no ringing in the ears, no dizziness. No nasal drainage or congestion. No epistaxis. No sore throat. Respiratory: No shortness of breath, no cough, no sputum production. No wheezing. Reports dyspnea with activity. Cardiovascular: No chest pain, no lower extremity edema. No palpitations. No paroxysmal nocturnal dyspnea. No orthopnea. No lightheadedness or dizziness. No syncopal episodes. Gastrointestinal: Reports no abdominal pain. No nausea, vomiting. No diarrhea. No constipation. No bloody or tarry stools reports loss of appetite. Genitourinary: No dysuria, increased frequency, urgency. No urinary retention. Musculoskeletal: Positive for myalgias. positive for muscle weakness, Positive for gait dysfunction, no frequent falls, positive for left knee pain, locking, positive for low back pain . Integumentary: No wounds, no lesions. No rash or pruritus. brpositive for bruising. No change in hair or nails. Neurologic: No aphasia. No facial droop. No change in mentation. No head injury. No headache. No paralysis. No paresthesia. Psychiatric: No depression. No anxiety. No mood swings. Endocrine: No abnormal blood sugars. PHYSICAL EXAMINATION: General: This is 75-year-old male who appears to be in no distress. HEENT: Head is atraumatic, normocephalic, pupils were equal round reactive to light and recommendation, extraocular muscle movement were intact, sclera nonicteric, conjunctivae were pale, mucous membranes of the mouth are somewhat dry. Neck: Supple, no JVP, normal carotid upstroke bilaterally, no lymphadenopathy. Chest: Decreased breath sounds at the bases, few rhonchi, no extremity wheezes, no chest wall tenderness, no intercostal retractions. Heart: First heart sound is normal, second heart sound is normal there is systolic ejection murmur 2/6 left sternal border. Abdomen: Soft, nontender, nondistended, positive bowel sounds, no hepatosplenomegaly Extremities: There is no edema no calf tenderness DP + 1 bilaterally, left knee no tenderness. Skin: Large decubitus ulcer to the coccyx area with partial necrotic tissue, surrounding erythema, deep tissue injury to the right heel and small area to the plantar surface of the right foot, please see nursing documentation for details. Neurologic examination: Patient is awake alert and oriented X3, cranial nerves II-12 appear grossly intact, muscle power were 5 out of 5 in upper extremities and 5 out of 5 in bilateral lower extremities, deep tendon reflexes normal bilaterally. ASSESSMENT AND PLAN: 1. Stage IV decubitus ulcer coccyx, failed outpatient treatment status post outpatient debridement and antibiotics with Levaquin. Consult Dr. Hartman for surgical debridement in the OR scheduled for today, consult Dr. Strickland appreciated, aerobic and anaerobic cultures to be obtained. Currently on Unasyn. 2. Deep tissue injury to the right heel and small area on the right plantar yin face. Offloading and simple dressing. 3. History of recent septic arthritis of the left knee and MSSA bacteremia s/p debridement of the left knee on last admission. Continue Unasyn. 4. Recent left heart catheterization with PCI of the RCA on 07/30/2020 Continue patient on aspirin 81 g once every day, Plavix 75 mg orally once every day, Lopressor 50 mg twice daily, atorvastatin 80 mg once every day. Cardiology consult. 5. Hypertension and hypertensive cardiovascular disease. Continue the patient on Lopressor. 8. Hyperlipidemia. Continue patient on atorvastatin 80 mg orally once every day. 9. Diabetes mellitus type 2. Start the patient on sliding scale insulin along with Lantus 22 units at bedtime. 10. History of prostate cance status post rotation. Stable at this time. 11. 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 Continue current pain management. 12. Chronic anemia. Consult with oncology, Ferrlecit 1 dose ordered. 13. DVT prophylaxis. Bilateral knee-high ADAIR hose. Avoid heparin for now. 14. GI prophylaxis. Protonix 40 mg orally twice daily. 15. Patient is full code. DISCHARGE PLAN Return to [facility] Impression and plan of care have been directed as dictated by the signing physician. Padma Monsalve nurse practitioner acting as scribe for signing physician. Objective - Vital Signs Vital signs: Vital Signs Temp 99.3 F 09/18/20 19:59 Pulse 104 H 09/18/20 23:46 Resp 18 09/18/20 23:46 BP 122/71 09/18/20 19:59 Pulse Ox 95 09/18/20 19:59 Intake & Output 09/18/20 09/19/20 09/19/20 18:59 06:59 18:59 Intake Total 1100 Output Total 600 350 Balance 500 -350 Weight 108.862 kg Intake: IV 1100 Sodium Chloride 0.9% 1, 1000 000 ml @ 75 mls/hr IV . [id number] [facility] Rx#:[id number] ceFAZolin 2 gm In Sodium 100 Chloride 0.9% 50 ml @ 100 mls/hr IVPB Q8HR [facility] Rx# :[id number] Output: Urine 600 350 Other: Voiding Method Indwelling Catheter Indwelling Catheter # Bowel Movements 1 1 - Labs CBC & Chem 7: 09/19/20 07:53 09/19/20 07:53 Labs: Abnormal Lab Results - Last 24 Hours (Table) 09/18/20 09/18/20 09/18/20 Range/Units 07:26 07:26 11:26 WBC 2.5 L (3.8-10.6) k/uL RBC 2.77 L (4.30-5.90) m/uL Hgb 8.1 L (13.0-17.5) gm/dL Hct 26.0 L (39.0-53.0) % RDW 16.7 H (11.5-15.5) % Lymphocytes # 0.5 L (1.0-4.8) k/uL Glucose 103 H (74-99) mg/dL POC Glucose (mg/dL) 114 H (75-99) mg/dL Calcium 7.8 L (8.4-10.2) mg/dL Total Protein 5.6 L (6.3-8.2) g/dL Albumin 2.4 L (3.5-5.0) g/dL 09/18/20 09/18/20 Range/Units 16:54 20:44 WBC (3.8-10.6) k/uL RBC (4.30-5.90) m/uL Hgb (13.0-17.5) gm/dL Hct (39.0-53.0) % RDW (11.5-15.5) % Lymphocytes # (1.0-4.8) k/uL Glucose (74-99) mg/dL POC Glucose (mg/dL) 108 H 110 H (75-99) mg/dL Calcium (8.4-10.2) mg/dL Total Protein (6.3-8.2) g/dL Albumin (3.5-5.0) g/dL Microbiology - Last 24 Hours (Table) 09/18/20 10:02 Gram Stain - Preliminary Other - Other Wound Culture - Preliminary 09/18/20 10:02 Anaerobic Culture - Preliminary Other - Other 09/17/20 13:30 Blood Culture - Preliminary Blood No Growth after 24 hours 09/17/20 13:30 Blood Culture - Preliminary Blood No Growth after 24 hours
[2020-09-19] MEDS ORDERED: IV FLUID CONTINUATION 1,000 ML IV ONE (14:48)
[2020-09-19] MEDS ORDERED: SODIUM FERRIC GLUCONAT-SUCROSE 125 MG in SODIUM CHLORIDE 0.9% 100 ML IVPB ONE ×3 (15:00→21:45)
[2020-09-19 15:01] LABS: Glucose,Whole Blood 106 mg/dL (75-99)
[2020-09-19] MEDS ORDERED: HYDROmorphone 0.5 MG/0.5 ML SYRINGE IVP ONE (15:18)
[2020-09-19] MEDS ORDERED: fentaNYL (PF) 50 MCG/ML 2 ML AMP ONE (15:49)
[2020-09-19] MEDS ORDERED: PROPOFOL 10 MG/ML 20 ML VIAL IV ONE (15:49)
[2020-09-19] MEDS ORDERED: MIDAZOLAM 2 MG/2 ML VIAL ONE (15:49)
--- NOTE | 2020-09-19 16:22 | P.OP ---
Date of Procedure: 09/19/20 Procedure(s) Performed: PREOPERATIVE DIAGNOSIS: Large sacral decubitus ulcer POSTOPERATIVE DIAGNOSIS: Same PROCEDURE: Excisional debridement large sacral decubitus ulcer skin subcutaneous tissues and muscle SURGEON: Devan EBL: 5 mL ANESTHESIA: Sedation COMPLICATIONS: None OPERATIVE PROCEDURE: Patient placed in the left decubitus position. Sacral wound measures 18 x 12 cm, depth 3-4 cm, tunneling laterally both right side and left side 2-3 cm. Necrotic skin subcutaneous fat and muscle debrided sharply using both scalpel and curet took place until only viable tissue was seen. Small areas of bleeding controlled using electrocautery. The area was irrigated with saline. Wound was then packed with saline moistened Kerlix roll. Sterile dressings applied. DISPOSITION: Stable to recovery room
[2020-09-19] MEDS: POTASSIUM CHLORIDE ER 20 MEQ TAB.ER PO SCH (17:33)
[2020-09-19 20:17] LABS: Anisocytosis Slight; HGB 7.2 gm/dL (13.0-17.5); Hypochromasia Marked; MCH 27.7 pg (25.0-35.0); MCHC 29.9 g/dL (31.0-37.0); MCV 92.4 fL (80.0-100.0); Platelet Count 249 k/uL (150-450); Poikilocytosis Moderate; RBC 2.59 m/uL (4.30-5.90); RDW 17.1 % (11.5-15.5); WBC 2.8 k/uL (3.8-10.6)
[2020-09-19 20:52] LABS: Glucose,Whole Blood 96 mg/dL (75-99)
[2020-09-19] MEDS: INSULIN DETEMIR (LEVEMIR) 100 UNIT/ML SYR SQ SCH (21:14)
[2020-09-19] MEDS: ATORVASTATIN 80 MG TAB PO SCH (21:20)
[2020-09-19] MEDS: MIRTAZAPINE 15 MG TAB PO SCH (21:20)
[2020-09-19] MEDS: HYDROcodone/APAP 10-325MG 1 EACH TAB PO PRN (23:46)
[2020-09-20] MEDS: AMPICILLIN-SULBACTAM 3 GM in SODIUM CHLORIDE 0.9% 100 ML IVPB SCH ×2 (05:13→11:54)
[2020-09-20 07:20] LABS: Glucose,Whole Blood 85 mg/dL (75-99)
[2020-09-20] MEDS: INSULIN ASPART (NovoLOG) 100 UNIT/ML VIAL SQ SCH ×4 (08:04→21:18)
[2020-09-20] MEDS: CLOPIDOGREL 75 MG TAB PO SCH (08:53)
[2020-09-20] MEDS: ASPIRIN 81 MG PO SCH (08:53)
[2020-09-20] MEDS: METOPROLOL TARTRATE 50 MG TAB PO SCH ×2 (08:53→16:45)
[2020-09-20] MEDS: NYSTATIN 100,000UNIT/GM CREAM 30 GM TUBE TOPICAL SCH ×4 (08:53→21:19)
[2020-09-20] MEDS: PANTOPRAZOLE 40 MG TABLET PO SCH ×2 (08:53→16:45)
[2020-09-20] MEDS: HYDROmorphone 0.5 MG/0.5 ML SYRINGE IVP PRN (09:20)
[2020-09-20] MEDS: SODIUM CHLORIDE 0.9% 1,000 ML IV SCH (10:48)
--- NOTE | 2020-09-20 10:56 | P.PN ---
<Glenna Melton - Last Filed: 09/20/20 10:50> Subjective Progress Note Date: 09/20/20 CHIEF COMPLAINT: Large sacral Decubitus ulcer HISTORY OF PRESENT ILLNESS: Patient is status post excisional debridement of large sacral decubitus ulcer skin, subcutaneous tissues and muscle. Patient denies any pain. His dressings have been saturated with blood. Nursing staff has reinforced at the dressings last night and this morning twice. He was able to have bowel movements. Afebrile. Patient is tachycardic this morning with a heart rate of 114. Labs for today are pending. Wound culture results growing group D enterococcus PHYSICAL EXAM: VITAL SIGNS: Reviewed. GENERAL: Well-developed in no acute distress. HEENT: No sclera icterus. Extraocular movements grossly intact. Moist buccal mucosa. Head is atraumatic, normocephalic. ABDOMEN: Soft. Nondistended. Nontender. NEUROLOGIC: Alert and oriented. Cranial nerves II through XII grossly intact. ASSESSMENT: 1. Large sacral decubitus ulcer status post excisional debridement of skin, subcutaneous tissues and muscle PLAN: -Continue wound care -Continue antibiotics per infectious disease Physician Survey Manager note has been reviewed by physician. Signing provider agrees with the documented findings, assessment, and plan of care. Objective - Vital Signs Vital signs: Vital Signs Temp 98.9 F 09/20/20 08:33 Pulse 114 H 09/20/20 08:33 Resp 18 09/20/20 08:33 BP 163/83 09/20/20 08:33 Pulse Ox 93 L 09/20/20 08:33 Intake & Output 09/19/20 09/20/20 09/20/20 18:59 06:59 18:59 Intake Total 450 Output Total 5 Balance 445 Intake: IV 450 ceFAZolin 2 gm In Sodium 200 Chloride 0.9% 50 ml @ 100 mls/hr IVPB Q8HR [facility] Rx# :[id number] Output: Estimated Blood Loss 5 Other: Voiding Method Indwelling Catheter Indwelling Catheter Indwelling Catheter # Voids 2 3 - Labs CBC & Chem 7: 09/19/20 19:31 09/19/20 07:53 Labs: Abnormal Lab Results - Last 24 Hours (Table) 09/19/20 09/19/20 Range/Units 14:58 19:31 WBC 2.8 L (3.8-10.6) k/uL RBC 2.59 L (4.30-5.90) m/uL Hgb 7.2 L (13.0-17.5) gm/dL Hct 24.0 L (39.0-53.0) % MCHC 29.9 L (31.0-37.0) g/dL RDW 17.1 H (11.5-15.5) % POC Glucose (mg/dL) 106 H (75-99) mg/dL Microbiology - Last 24 Hours (Table) 09/18/20 07:26 Blood Culture - Preliminary Blood No Growth after 48 hours 09/17/20 13:30 Blood Culture - Preliminary Blood No Growth after 48 hours 09/17/20 13:30 Blood Culture - Preliminary Blood No Growth after 48 hours 09/18/20 10:02 Gram Stain - Preliminary Other - Other Wound Culture - Preliminary Group D Enterococcus <Wisam Hartman - Last Filed: 09/20/20 11:12> Subjective As above. Patient had some drainage through the dressing last night. Serosanguineous in nature. Wound was evaluated. Kerlix roll removed. No active bleeding seen. A small amount of adherent clot. Continue local wound care. Patient may benefit from wound VAC once wound is a little bit septic cleaner. We'll follow. Continue offloading. Continue optimizing nutrition. Objective - Vital Signs Vital signs: Vital Signs Temp 98.9 F 09/20/20 08:33 Pulse 114 H 09/20/20 08:33 Resp 18 09/20/20 08:33 BP 163/83 09/20/20 08:33 Pulse Ox 93 L 09/20/20 08:33 Intake & Output 09/19/20 09/20/20 09/20/20 18:59 06:59 18:59 Intake Total 450 Output Total 5 Balance 445 Intake: IV 450 ceFAZolin 2 gm In Sodium 200 Chloride 0.9% 50 ml @ 100 mls/hr IVPB Q8HR [facility] Rx# :[id number] Output: Estimated Blood Loss 5 Other: Voiding Method Indwelling Catheter Indwelling Catheter Indwelling Catheter # Voids 2 3 - Labs CBC & Chem 7: 09/19/20 19:31 09/19/20 07:53 Labs: Abnormal Lab Results - Last 24 Hours (Table) 09/19/20 09/19/20 Range/Units 14:58 19:31 WBC 2.8 L (3.8-10.6) k/uL RBC 2.59 L (4.30-5.90) m/uL Hgb 7.2 L (13.0-17.5) gm/dL Hct 24.0 L (39.0-53.0) % MCHC 29.9 L (31.0-37.0) g/dL RDW 17.1 H (11.5-15.5) % POC Glucose (mg/dL) 106 H (75-99) mg/dL Microbiology - Last 24 Hours (Table) 09/18/20 07:26 Blood Culture - Preliminary Blood No Growth after 48 hours 09/17/20 13:30 Blood Culture - Preliminary Blood No Growth after 48 hours 09/17/20 13:30 Blood Culture - Preliminary Blood No Growth after 48 hours 09/18/20 10:02 Gram Stain - Preliminary Other - Other Wound Culture - Preliminary Group D Enterococcus Assessment and Plan (1) Decubitus ulcer Current Visit: Yes Status: Acute Code(s): L89.90 - PRESSURE ULCER OF UNSPECIFIED SITE, UNSPECIFIED STAGE SNOMED Code(s): 164786220
[2020-09-20 11:34] LABS: Glucose,Whole Blood 88 mg/dL (75-99)
--- NOTE | 2020-09-20 11:55 | P.CONS ---
History of Present Illness - Reason for Consult Consult date: 09/20/20 Anemia Requesting physician: Padma Monsalve - Chief Complaint Recurrent infections - History of Present Illness Mr. Berkowitz is a 75 year old male with an extensive medical history including recent ST elevated [place] in which he was transferred to [facility] and is status post PCI (July 2020), HTN, HLD, Diabetes, atrial fib with RVR, Coronary artery disease, Recurrent infections, recent C-diff colitis treated with PO vancomycin,cellulitis, weakness, non-healing decubitus which has per medical record worsened the past month, status post debridement and followed by wound t e[facility] at [facility], and anxiety and depression. We have been asked by the primary team to further evaluate related to his cytopenias. He did have a partial anemia work-up at last visit in July of this year revealing anemia of chronic inflammation. He is currently hospitalized with sepsis on IV antibiotics. . Review of Systems All systems: negative Constitutional: Reports as per HPI Past Medical History Past Medical History: Atrial Fibrillation, Coronary Artery Disease (CAD), Cancer, Chest Pain / Angina, Diabetes Mellitus, GERD/Reflux, Hyperlipidemia, Hypertension, Osteoarthritis (OA), Prostate Disorder Additional Past Medical History / Comment(s): 5 Herniated discs in neck causing headaches & numbness in arm and right lower back and pain and right leg pain. Hx 4 fx ribs, current Prostate Cancer- last radiation tx Mar 25-2016 had total of 44 tx. occ constipation, Last Myocardial Infarction Date:: UNKOWN History of Any Multi-Drug Resistant Organisms: None Reported Past Surgical History: Adenoidectomy, Heart Catheterization, Heart Catheterization With Stent, Joint Replacement, Orthopedic Surgery, Tonsillectomy Additional Past Surgical History / Comment(s): PROSTATE BX., LT. KNEE ARTHROSCOPY X 2, CERVICAL FUSIONS, COLONOSCOPY, ÁNGEL. CATARTACTS.Pain Procedures , rt radio frequency procedures. , total 3 heart stents, hemorrhoidectomy,heart cath August 2017-lt knee replacement. Stent replacement Past Anesthesia/Blood Transfusion Reactions: No Reported Reaction Additional Past Anesthesia/Blood Transfusion Reaction / Comm: doesn't like enclosed tight spaces Date of Last Stent Placement:: 04/24/17 Past Psychological History: No Psychological Hx Reported Additional Psychological History / Comment(s): Pt resides mostly alone. He has a young woman that he considers a meredith who stays occasionally with him. Smoking Status: Former smoker Past Alcohol Use History: None Reported Additional Past Alcohol Use History / Comment(s): Pt started smoking in 1981 smoked for 2 yrs, smoked 1/2 ppd. 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 Past Drug Use History: None Reported - Past Family History Father Additional Family Medical History / Comment(s): Father at age 49 from coronary artery disease. Brother(s) Additional Family Medical History / Comment(s): Patient has one brother with hi story of smoking and no other major medical problems. Patient does not have any sisters. Daughter(s) Additional Family Medical History / Comment(s): He has one daughter alive in [place] with no major medical problems. Patient has one daughter with history of muscular dystrophy and of pneumonia. Son(s) Family Medical History: No Reported History Additional Family Medical History / Comment(s): Patient has one son with no major medical problems. Mother Family Medical History: Cancer Additional Family Medical History / Comment(s): Mother at age 81 from uterine cancer with metastatic disease. Medications and Allergies Home Medications Medication Instructions Recorded Confirmed Type Aspirin [[place] Aspirin EC] 81 mg PO DAILY@0800 08/05/20 09/17/20 History Ipratropium-Albuterol Nebulize 3 ml INHALATION RT-QID PRN ml 08/16/20 09/17/20 Rx [Duoneb 0.5 mg-3 mg/3 ml Soln] methocarbamoL [Robaxin] 750 mg PO TID PRN tab 08/16/20 09/17/20 Rx 0.9 % Sodium Chloride [Sodium 1 applic IV TID@0600,1400,2200 09/01/20 09/17/20 History Chloride Flush] Acetaminophen Tab [Tylenol] 1,000 mg PO Q6HR PRN 09/01/20 09/17/20 History Atorvastatin [Lipitor] 80 mg PO HS@2100 09/01/20 09/17/20 History Clopidogrel [Plavix] 75 mg PO DAILY@0800 09/01/20 09/17/20 History HYDROcodone/APAP 10-325MG [[place] 1 tab PO BID PRN 09/01/20 09/17/20 History 10-325] INSULIN ASPART (NovoLOG) [NovoLOG See Protocol SQ ACHS 09/01/20 09/17/20 History (formulary)] Insulin Detemir (Levemir) [Levemir] 22 unit SQ HS@209909/01/20 09/17/20 History Lactose-Reduced Food [Ensure Plus] 1 can PO BID@0800,1700 09/01/20 09/17/20 History Lidocaine Cream 5% 1 applic TOPICAL DAILY PRN 09/01/20 09/17/20 History Magnesium Hydroxide [Milk of 7,200 mg PO DAILY PRN 09/01/20 09/17/20 History Magnesia Concentrate] Mirtazapine 7.5 mg PO HS@2100 09/01/20 09/17/20 History Na Phos,M-B/Na Phos,Di-Ba [Fleet 133 ml RECTAL DAILY PRN 09/01/20 09/17/20 History Adult] Pantoprazole [Protonix] 40 mg PO BID@0800,1700 09/01/20 09/17/20 History Potassium Chloride ER [K-Dur 20] 20 meq PO DAILY@1700 09/01/20 09/17/20 History bisacodyL [Dulcolax] 10 mg RECTAL DAILY PRN 09/01/20 09/17/20 History Ivan Packet 1 packet PO BID@1200,2000 09/17/20 09/17/20 History Levofloxacin [Levaquin] 500 mg PO DAILY@0800 09/17/20 09/17/20 History Metoprolol Tartrate [Lopressor] 50 mg PO BID@0800,1700 09/17/20 09/17/20 History Nystatin 100,000Unit/gm Cream 1 applic TOPICAL QID 09/17/20 09/17/20 History [Mycostatin Cream] ceFAZolin [Kefzol] 2,000 mg IV Q8HR 09/17/20 09/17/20 History Allergies Allergy/AdvReac Type Severity Reaction Status Date / Time No Known Allergies Allergy Verified 09/17/20 13:04 Physical Exam Vitals: Vital Signs Temp Pulse Pulse Pulse Resp BP Pulse Ox 09/20/20 08:33 98.9 F 114 H 18 163/83 93 L 09/20/20 02:09 98.3 F 95 17 120/66 92 L 09/19/20 20:17 85 158/73 95 06/03/21 20:00 18 09/19/20 19:47 102 H 119/56 92 L 09/19/20 19:17 103 H 137/74 95 09/19/20 19:02 94 125/62 96 09/19/20 18:47 95 157/65 94 L 09/19/20 18:32 125 H 132/64 94 L 09/19/20 18:17 102 H 157/70 92 L 09/19/20 18:02 93 154/71 94 L 09/19/20 16:58 82 18 124/50 95 09/19/20 16:42 90 18 96/43 100 09/19/20 16:25 97 F L 96 16 102/44 99 09/19/20 14:55 97.9 F 104 H 16 164/72 94 L Intake and Output 09/19/20 09/20/20 09/20/20 22:59 06:59 14:59 Intake Total 400 Output Total 5 Balance 395 Intake: IV 400 ceFAZolin 2 gm In Sodium 200 Chloride 0.9% 50 ml @ 100 mls/hr IVPB Q8HR [facility] Rx# :[id number] Output: Estimated Blood Loss 5 Other: Voiding Method Indwelling Catheter Indwelling Catheter # Voids 2 3 - Constitutional General appearance: cooperative - EENT Eyes: EOMI ENT: hard of hearing, NA/AT - Neck Neck: normal ROM - Respiratory Respiratory: bilateral: diminished (lower lobes, weak inhalation) - Cardiovascular Rhythm: irregularly irregular leg Peripheral Edema: bilateral: Trace (Cellulitis) - Gastrointestinal General gastrointestinal: soft - Integumentary Integumentary: pale - Neurologic non focal - Musculoskeletal Musculoskeletal: generalized weakness - Psychiatric lethargic, unmotivated Psychiatric: A&O x's 3 Results CBC & Chem 7: 09/20/20 07:38 09/19/20 07:53 Labs: Abnormal Lab Results - Last 24 Hours (Table) 09/19/20 09/19/20 Range/Units 14:58 19:31 WBC 2.8 L (3.8-10.6) k/uL RBC 2.59 L (4.30-5.90) m/uL Hgb 7.2 L (13.0-17.5) gm/dL Hct 24.0 L (39.0-53.0) % MCHC 29.9 L (31.0-37.0) g/dL RDW 17.1 H (11.5-15.5) % POC Glucose (mg/dL) 106 H (75-99) mg/dL Microbiology - Last 24 Hours (Table) 09/18/20 07:26 Blood Culture - Preliminary Blood No Growth after 48 hours 09/17/20 13:30 Blood Culture - Preliminary Blood No Growth after 48 hours 09/17/20 13:30 Blood Culture - Preliminary Blood No Growth after 48 hours 09/18/20 10:02 Gram Stain - Preliminary Other - Other Wound Culture - Preliminary Group D Enterococcus Assessment and Plan (1) Normocytic hypochromic anemia Current Visit: Yes Status: Acute Code(s): D50.9 - IRON DEFICIENCY ANEMIA, UNSPECIFIED SNOMED Code(s): 78081480 (2) Cellulitis Current Visit: Yes Status: Acute Code(s): L03.90 - CELLULITIS, UNSPECIFIED SNOMED Code(s): 930419216 (3) Leukopenia Current Visit: Yes Status: Acute Code(s): D72.819 - DECREASED WHITE BLOOD CELL COUNT, UNSPECIFIED SNOMED Code(s): 78446634 (4) Atrial fibrillation with RVR Current Visit: No Status: Acute Code(s): I48.91 - UNSPECIFIED ATRIAL FIBRILLATION SNOMED Code(s): 307778653091123 (5) CAD (coronary artery disease) Current Visit: No Status: Acute Code(s): I25.10 - ATHSCL HEART DISEASE OF ELEM CORONARY ARTERY W/O ANG PCTRS SNOMED Code(s): 53480709 (6) Septic shock Current Visit: No Status: Acute Code(s): A41.9 - SEPSIS, UNSPECIFIED ORGANISM; R65.21 - SEVERE SEPSIS WITH SEPTIC SHOCK SNOMED Code(s): 21049619 (7) Severe sepsis Current Visit: No Status: Acute Code(s): A41.9 - SEPSIS, UNSPECIFIED ORGANISM; R65.20 - SEVERE SEPSIS WITHOUT SEPTIC SHOCK SNOMED Code(s): 77846684 (8) Weakness of both upper extremities Current Visit: No Status: Acute Code(s): R29.898 - OTH SYMPTOMS AND SIGNS INVOLVING THE MUSCULOSKELETAL SYSTEM SNOMED Code(s): 01647880328350329 Plan: In historical review of his CBC he has been anemic since 2018, although his baseline hemoglobin being 10-12 in the prior years, more recently (since July) has been between 6-9. He has no acute complaints at the time of evaluation. Due to the long inflammatory (multiple recurrent infections and cardiac events) and antibiotic exposures it does appear his cytopenias are likely worsened from lugo bstantial stress on the bone marrow Last anemia work-up revealed possible evidence of paraprotein (this is truly non-specific), low iron saturation, elevated ferritin. We will redraw this work- up today and additional to determine etiology, whether multifactorial. COmplete and repeat cytopenia work-up for other etiology or contributing factors. Urine protein and KFLC COntinue daily CBC monitoring, transfuse hemoglobin less than 7 Physician attest: I have completed the full history and physical and developed the above impression and plan, agree with dictation, dictated as a ascribe.
[2020-09-20 12:10] LABS: Basophils # (A) 0.01 X 10*3/uL (0.00-0.10); Basophils % (A) 0.3 %; Eosinophils # (A) 0 X 10*3/uL (0.04-0.35); Eosinophils % (A) 0 %; HCT 25.2 % (39.6-50.0); HGB 7.2 g/dL (13.0-17.0); Lymphocytes # (A) 0.71 X 10*3/uL (0.90-5.00); Lymphocytes % (A) 22.6 %; MCH 27.5 pg (27.0-32.0); MCHC 28.6 g/dL (32.0-37.0); MCV 96.2 fL (80.0-97.0); Monocytes # (A) 0.36 X 10*3/uL (0.20-1.00); Monocytes % (A) 11.5 %; Neutrophils # (A) 1.99 X 10*3/uL (1.80-7.70); Neutrophils % (A) 63.4 %; Platelet Count 258 X 10*3/uL (140-440); RBC 2.62 X 10*6/uL (4.40-5.60); RDW 16.1 % (11.5-14.5); WBC 3.14 X 10*3/uL (4.50-10.00)
--- NOTE | 2020-09-20 13:18 | P.PN ---
Subjective HISTORY OF PRESENTING ILLNESS This is a pleasant 75-year-old male past medical history significant for coronary artery disease, recent ST elevated myocardial infarction status post PCI at [facility] 07/28/2020, hypertension, dyslipidemia and diabetes mellitus. He follows in the office with Dr. Valencia. We have been asked to see in consultation for preoperative evaluation. He presented to the hospital from rehab with complaints of painful wound on his coccyx. He is scheduled to undergo wound debridement tomorrow with Dr. Hartman. He plans to do this with plavix on board due to recent stent placement. The patient denie sympt oms of chest pain, shortness of breath, dizziness or palpitations. He underwent a limited echocardiogram 08/09/2020 revealing preserved LV systolic function with ejection fraction 50-55%. 09/20/2020 Patient is seen and examined resting comfortably in bed laying on his right side. He underwent successful debridement yesterday with Dr. Hartman. He denies chest pain, shortness of breath, dizziness or palpitations. Blood pressure 163/83 heart rate 114 PHYSICAL EXAMINATION CONSTITUTIONAL: No apparent distress. Laying flat in bed. HEENT: Head is normocephalic. Pupils are equal, round. Sclerae anicteric. Mucous membranes of the mouth are moist. No JVD. No carotid bruit. CHEST EXAMINATION: Lungs are clear to auscultation. No chest wall tenderness is noted on palpation or with deep breathing. HEART EXAMINATION: Regular rate and rhythm. S1, S2 heard. No murmurs, gallops or rub. EXTREMITIES: 2+ peripheral pulses, trace lower extremity edema with wounds noted of the right knee and dressing in place to right lower extremity and no calf tenderness. ASSESSMENT Sacral wound Pre-operative evaluation Coronary artery disease s/p PCI RCA in the setting of STEMI 07/28/2020 Ischemic cardiomyopathy, improved after PCI Hypertension Dyslipidemia Diabetes mellitus PLAN Continue dual anti-platelet therapy. Stable from a cardiac perspective. We will follow along as needed, please call with further questions or concerns. Follow up upon discharge with Dr. Valencia. Nurse Practitioner note has been reviewed, I agree with a documented findings and plan of care. Patient was seen and examined. Objective - Vital Signs Vital signs: Vital Signs Temp 98.9 F 09/20/20 08:33 Pulse 114 H 09/20/20 08:33 Resp 18 09/20/20 08:33 BP 163/83 09/20/20 08:33 Pulse Ox 93 L 09/20/20 08:33 Intake & Output 09/19/20 09/20/20 09/20/20 18:59 06:59 18:59 Intake Total 450 Output Total 5 Balance 445 Weight 108.862 kg Intake: IV 450 ceFAZolin 2 gm In Sodium 200 Chloride 0.9% 50 ml @ 100 mls/hr IVPB Q8HR [facility] Rx# :[id number] Output: Estimated Blood Loss 5 Other: Voiding Method Indwelling Catheter Indwelling Catheter Indwelling Catheter # Voids 2 3 - Labs CBC & Chem 7: 09/20/20 07:38 09/19/20 07:53 Labs: Abnormal Lab Results - Last 24 Hours (Table) 09/19/20 09/19/20 09/20/20 Range/Units 14:58 19:31 07:38 WBC 2.8 L 3.14 L (3.8-10.6) k/uL RBC 2.59 L 2.62 L (4.30-5.90) m/uL Hgb 7.2 L 7.2 L (13.0-17.5) gm/dL Hct 24.0 L 25.2 L (39.0-53.0) % MCHC 29.9 L 28.6 L (31.0-37.0) g/dL RDW 17.1 H 16.1 H (11.5-15.5) % Immature Gran # 0.07 H (0.00-0.04) X 10*3/uL Lymphocytes # 0.71 L (0.90-5.00) X 10*3/uL Eosinophils # 0 L (0.04-0.35) X 10*3/uL POC Glucose (mg/dL) 106 H (75-99) mg/dL Microbiology - Last 24 Hours (Table) 09/18/20 07:26 Blood Culture - Preliminary Blood No Growth after 48 hours 09/17/20 13:30 Blood Culture - Preliminary Blood No Growth after 48 hours 09/17/20 13:30 Blood Culture - Preliminary Blood No Growth after 48 hours 09/18/20 10:02 Gram Stain - Preliminary Other - Other Wound Culture - Preliminary Group D Enterococcus
[2020-09-20] MEDS ORDERED: ALPRAZolam 0.25 MG TAB PO PRN (14:37)
[2020-09-20] MEDS: HEPARIN SODIUM,PORCINE/PF 5,000 UNIT/0.5 ML SYRINGE SQ SCH ×2 (15:21→21:19)
[2020-09-20] MEDS: HYDROcodone/APAP 10-325MG 1 EACH TAB PO SCH ×2 (16:45→21:16)
[2020-09-20] MEDS: POTASSIUM CHLORIDE ER 20 MEQ TAB.ER PO SCH (16:45)
[2020-09-20 16:58] LABS: Glucose,Whole Blood 110 mg/dL (75-99)
--- NOTE | 2020-09-20 17:20 | PN ---
PROGRESS NOTE DATE OF SERVICE: 09/20/2020 I am covering for Dr. Astudillo. This 75-year-old gentleman who was admitted with a stage IV decubitus ulcer is being closely monitored at this time. Dr. Hartman has performed excision and debridement of the large sacral decubitus ulcers. The hemoglobin is 7.[address] Strickland is following the patient closely. Wound culture showed enterococcus faecium and Citrobacter. Enterococcus is vancomycin resistant. PAST MEDICAL HISTORY: Reviewed. REVIEW OF SYSTEMS: CARDIOVASCULAR: No angina or palpitations. RESPIRATORY: As mentioned earlier. GI: As mentioned earlier. : No dysuria. NERVOUS SYSTEM: No numbness, no weakness. CURRENT MEDS: Reviewed and include: Tylenol, [place], DuoNeb, Unasyn, aspirin Lipitor, Dulcolax, Plavix, Levemir, Lopressor, Narcan, Zofran, fleets, p.r.n. medications. Doses are reviewed. PHYSICAL EXAMINATION: Patient is alert, oriented x2. Pulse is 114. Blood pressure 160/83, respirations 18, temperature 98.2, pulse ox 98% on room air. HEENT: Conjunctivae normal. NECK: No JVD. CARDIOVASCULAR: S1, S2 muffled. RESPIRATORY SYSTEM: Breath sounds diminished at the bases. A few scattered rhonchi and crackles. ABDOMEN: Soft, nontender. No mass palpable. LEGS are no edema. No swelling. NERVOUS SYSTEM: No focal deficits. Examination of the back, stage IV decubitus ulcers. LABS: WBC 3.14, hemoglobin 7.2, platelets are 258. ASSESSMENT: 1. Large sacral decubitus ulcer, stage IV, status post excisional debridement with VRE and Citrobacter freundii. 2. Deep tissue injury to the right heel. 3. Leukopenia. 4. Anemia, normocytic anemia of chronic disease. 5. History of recent septic arthritis of the left knee and MSSA bacteremia. 6. History of recent left heart catheterization with PCI to RCA. 7. Hypertension. 8. Hyperlipidemia. 9. Diabetes mellitus type 2. 10.History of prostate cancer. 11.Spondylosis. 12.Chronic anemia. 13.Deep vein thrombosis prophylaxis. 14.Gastrointestinal prophylaxis. 15.FULL CODE. 16.Obesity with body mass index of 31.7. RECOMMENDATIONS AND DISCUSSION: In this 75-year-old gentleman who presented with multiple complex medical issues, we will monitor the patient closely. Continue the current medications, management and symptomatic treatment. Continue the IV antibiotics per infectious Disease. Continue the rest of medications. DVT prophylaxis. Guarded prognosis because of multiple complex medical issues. Further recommendations to follow. MMODL / IJN: [id number] /
[2020-09-20] MEDS: CEFEPIME 2 GM in SODIUM CHLORIDE 0.9% 100 ML IVPB SCH (19:06)
--- NOTE | 2020-09-20 19:11 | PN ---
PROGRESS NOTE DATE OF SERVICE: 09/20/2020 REASON FOR FOLLOWUP: Infected sacral pressure ulcer. INTERVAL HISTORY: The patient is currently afebrile. The patient denies having any chest pain. No shortness of breath or cough. No nausea, vomiting, abdominal pain, or any worsening pain to the sacral wound area. PHYSICAL EXAMINATION: Blood pressure 122/55 with a pulse of 103, temperature 98.8. He is 94% on room air. General description is an elderly male lying in bed in no distress. Respiratory system: Unlabored breathing, clear to auscultation anteriorly. Heart S1, S2. Regular rate and rhythm. Abdomen soft, no tenderness. Sacral wound did have some bleeding at the base. No redness or foul smelling drainage. LABS: Local wound is showing Citrobacter and VRE. DIAGNOSTIC IMPRESSION AND PLAN: Patient with infected sacral pressure ulcer, concern for underlying osteo and did have significant deep wound. Culture now showing a VRE and Citrobacter. Antibiotic will be adjusted to daptomycin and cefepime. Local care to continue with wet-to-dry dressing until the bleeding resolves. Subsequent will be switched over to wound VAC. Plan of care was discussed with the nursing staff. Questions and concerns were answered. MMODL / IJN: [id number] / CHASITY
[2020-09-20 21:08] LABS: Glucose,Whole Blood 156 mg/dL (75-99)
[2020-09-20] MEDS: MIRTAZAPINE 15 MG TAB PO SCH (21:17)
[2020-09-20] MEDS: INSULIN DETEMIR (LEVEMIR) 100 UNIT/ML SYR SQ SCH (21:18)
[2020-09-20 22:29] LABS: Reticulocyte % 4.16 % (0.10-1.80)
[2020-09-21] MEDS: SODIUM CHLORIDE 0.9% 1,000 ML IV SCH ×2 (01:19→14:00)
[2020-09-21] MEDS: CEFEPIME 2 GM in SODIUM CHLORIDE 0.9% 100 ML IVPB SCH ×4 (01:23→23:51)
[2020-09-21 04:35] LABS: ALT <8 U/L (10-49); AST 32 U/L (14-35); African American GFR (CKD) 106.2 (60.0-200.0); Albumin/Globulin Ratio 0.89 (1.60-3.17); Alkaline Phosphatase 71 U/L (41-126); BUN/Creat Ratio 8.57 Ratio (12.00-20.00); Calcium 7.8 mg/dL (8.7-10.3); Carbon Dioxide 22.7 mmol/L (21.6-31.8); Chloride 104 mmol/L (96-109); Globulin 2.8 g/dL (1.6-3.3); Glucose 86 mg/dL (70-110); Non-African American GFR(CKD) 91.7 (60.0-200.0); Potassium 3.5 mmol/L (3.5-5.5); Sodium 141 mmol/L (135-145); Total Bilirubin 0.4 mg/dL (0.2-1.2); Total Protein 5.3 g/dL (6.2-8.2)
[2020-09-21] MEDS: HYDROmorphone 0.5 MG/0.5 ML SYRINGE IVP PRN (05:37)
[2020-09-21 07:19] LABS: Glucose,Whole Blood 75 mg/dL (75-99)
[2020-09-21] MEDS: INSULIN ASPART (NovoLOG) 100 UNIT/ML VIAL SQ SCH ×4 (08:31→20:35)
[2020-09-21] MEDS: METOPROLOL TARTRATE 50 MG TAB PO SCH ×2 (08:37→17:45)
[2020-09-21] MEDS: CLOPIDOGREL 75 MG TAB PO SCH (08:37)
[2020-09-21] MEDS: MULTIVITAMINS, THERA 1 EACH TAB PO SCH (08:37)
[2020-09-21] MEDS: HYDROcodone/APAP 10-325MG 1 EACH TAB PO SCH ×4 (08:37→20:56)
[2020-09-21] MEDS: ASPIRIN 81 MG PO SCH (08:37)
[2020-09-21] MEDS: PANTOPRAZOLE 40 MG TABLET PO SCH ×2 (08:37→17:45)
[2020-09-21] MEDS: NYSTATIN 100,000UNIT/GM CREAM 30 GM TUBE TOPICAL SCH ×4 (08:38→22:52)
[2020-09-21] MEDS: HEPARIN SODIUM,PORCINE/PF 5,000 UNIT/0.5 ML SYRINGE SQ SCH ×2 (08:39→20:51)
[2020-09-21 09:43] LABS: Protein, Total 5.3 g/dL (6.2-8.2)
--- NOTE | 2020-09-21 10:19 | P.PN ---
Progress Note - Text Progress Note Date: 09/21/20 patient's resting comfortably his bed. He has no complaints. decubitus wound is clean. He will continue to receive wound care
[2020-09-21 11:50] LABS: Glucose,Whole Blood 89 mg/dL (75-99)
[2020-09-21 12:17] LABS: Free Kappa Lt Chain Qnt, Serum 6.82 mg/dL (0.33-1.94)
[2020-09-21 13:54] LABS: Folate, Serum 6.1 ng/mL
[2020-09-21 14:05] LABS: % Iron Saturation 21.3 (15.00-50.00); Ferritin 943.1 ng/mL (22.0-322.0)
[2020-09-21 16:31] LABS: Glucose,Whole Blood 95 mg/dL (75-99)
[2020-09-21] MEDS: POTASSIUM CHLORIDE ER 20 MEQ TAB.ER PO SCH (17:45)
--- NOTE | 2020-09-21 20:14 | PN ---
PROGRESS NOTE DATE OF SERVICE: 09/21/2020 REASON FOR FOLLOW UP: 1. Infected sacral pressure ulcer. 2. Right heel pressure ulcer. INTERVAL HISTORY: Patient is afebrile. The patient is breathing comfortably. Denies having any chest pain. No shortness of breath. No cough. No abdominal pain. Pain to the sacral area as well as right heel wound is currently controlled. PHYSICAL EXAMINATION: Blood pressure 132/66, pulse of 94, temperature 98.6, 95% on room air. General description: The patient is an elderly male lying in in no distress. Respiratory system: Unlabored breathing, clear to auscultation anteriorly. Heart S1, S2. Regular rate and rhythm. Abdomen: Abdomen is soft, no tenderness. Right heel wound is currently dressed, no drainage on the dressing. LABS: No new labs have been obtained today. Culture positive for anaerobes and Enterococcus faecium and Citrobacter. DIAGNOSTIC IMPRESSION AND PLAN: Patient with infected sacral pressure ulcer status post debridement. Culture with multiple pathogen, covered with cefepime and daptomycin. We will add Flagyl to cover for anaerobes. Will get a PICC line for outpatient antibiotic therapy. Local wound care with wound VAC once his bleeding should resolve and continue supportive care. MMODL / IJN: [id number] /
[2020-09-21 20:35] LABS: Glucose,Whole Blood 83 mg/dL (75-99)
[2020-09-21] MEDS: MIRTAZAPINE 15 MG TAB PO SCH (20:50)
[2020-09-21] MEDS: INSULIN DETEMIR (LEVEMIR) 100 UNIT/ML SYR SQ SCH (20:51)
[2020-09-21] MEDS: metroNIDAZOLE 500 MG TAB PO SCH (20:51)
[2020-09-22] MEDS: SODIUM CHLORIDE 0.9% 1,000 ML IV SCH ×2 (02:15→16:28)
[2020-09-22 03:02] LABS: Glucose,Whole Blood 58 mg/dL (75-99)
[2020-09-22 04:10] LABS: Glucose,Whole Blood 82 mg/dL (75-99)
[2020-09-22] MEDS: metroNIDAZOLE 500 MG TAB PO SCH ×3 (07:52→21:41)
[2020-09-22] MEDS: PANTOPRAZOLE 40 MG TABLET PO SCH ×2 (07:52→16:23)
[2020-09-22] MEDS: METOPROLOL TARTRATE 50 MG TAB PO SCH ×2 (07:52→16:23)
[2020-09-22] MEDS: CLOPIDOGREL 75 MG TAB PO SCH (07:52)
[2020-09-22] MEDS: ASPIRIN 81 MG PO SCH (07:52)
[2020-09-22] MEDS: CEFEPIME 2 GM in SODIUM CHLORIDE 0.9% 100 ML IVPB SCH ×2 (07:53→16:22)
[2020-09-22] MEDS: MULTIVITAMINS, THERA 1 EACH TAB PO SCH (07:53)
[2020-09-22] MEDS: HYDROcodone/APAP 10-325MG 1 EACH TAB PO SCH ×4 (07:53→21:41)
[2020-09-22] MEDS: HEPARIN SODIUM,PORCINE/PF 5,000 UNIT/0.5 ML SYRINGE SQ SCH ×2 (07:53→21:41)
[2020-09-22 07:54] LABS: Glucose,Whole Blood 53 mg/dL (75-99)
[2020-09-22] MEDS: NYSTATIN 100,000UNIT/GM CREAM 30 GM TUBE TOPICAL SCH ×4 (07:54→21:48)
[2020-09-22] MEDS: INSULIN ASPART (NovoLOG) 100 UNIT/ML VIAL SQ SCH ×4 (07:54→22:06)
[2020-09-22] MEDS ORDERED: DEXTROSE 50% SYRINGE 50 ML IVP STA (08:00)
[2020-09-22] MEDS ORDERED: DEXTROSE 50% SYRINGE 50 ML IVP ONE (08:00)
[2020-09-22 08:38] LABS: Glucose,Whole Blood 140 mg/dL (75-99)
--- NOTE | 2020-09-22 10:49 | P.PN ---
Progress Note - Text Progress Note Date: 09/22/20 Patient is stable. He was also wound is clean. He'll continue local wound care.
[2020-09-22 11:20] LABS: Glucose,Whole Blood 83 mg/dL (75-99)
[2020-09-22] MEDS: POTASSIUM CHLORIDE ER 20 MEQ TAB.ER PO SCH (16:23)
[2020-09-22] MEDS: ONDANSETRON 4 MG/2 ML VIAL IVP PRN (16:23)
[2020-09-22 17:50] LABS: Glucose,Whole Blood 78 mg/dL (75-99)
[2020-09-22] MEDS: HYDROmorphone 0.5 MG/0.5 ML SYRINGE IVP PRN (19:45)
--- NOTE | 2020-09-22 20:09 | PN ---
PROGRESS NOTE DATE OF SERVICE: 09/22/2020 REASON FOR FOLLOWUP: Sacral pressure ulcer. INTERVAL HISTORY: Patient is afebrile. He is breathing comfortably. Pain to the sacral wound is currently controlled. No chest pain, shortness of breath or cough and no diarrhea. PHYSICAL EXAMINATION: Blood pressure 135/77 with a pulse of 104, temperature 98.7. He is 96% on room air. General description is an elderly male lying in bed in no distress. Respiratory system: Unlabored breathing, clear to auscultation anteriorly. Heart S1, S2. Regular rate and rhythm. Abdomen soft, no tenderness. Sacral wound is currently dressed. LABS: No new labs have been obtained today. DIAGNOSTIC IMPRESSION AND PLAN: Patient with infected sacral pressure ulcer status post debridement. Culture with VRE, Citrobacter, anaerobes. Patient is covered with cefepime, daptomycin and Flagyl. Will need a PICC line for outpatient antibiotics. Local care was switched over to wound VAC. Continue supportive care. MMODL / IJN: [id number] /
[2020-09-22 20:13] LABS: Glucose,Whole Blood 79 mg/dL (75-99)
[2020-09-22] MEDS: MIRTAZAPINE 15 MG TAB PO SCH (21:45)
--- NOTE | 2020-09-22 21:53 | PN ---
PROGRESS NOTE DATE OF SERVICE: 09/22/2020 I am covering for Dr. Astudillo. This 75-year-old gentleman admitted to the hospital with significant decubitus ulcer had excisional debridement. The patient had multiple organisms grown from the culture including enterococcus faecium which is VRE and Citrobacter freundii and anaerobic organisms also. Patient being closely monitored. No chest pain. No palpitations. No fever. The patient has anemia, which is being closely monitored. REVIEW OF SYSTEMS: CARDIOVASCULAR: No angina or palpitations. RESPIRATION: As mentioned earlier. GI: As mentioned earlier. : No dysuria. NERVOUS SYSTEM: No numbness or weakness. CURRENT MEDICATIONS: Reviewed and include: Xanax, aspirin, Cefepime, daptomycin, hydrocodone, metoprolol, Remeron, doses are reviewed. PHYSICAL EXAMINATION: Alert and orient x2. Pulse 104, blood pressure 130/70, respiration 18, temperature 98.2, pulse ox 96% on room air. HEENT: Conjunctivae normal. NECK: No JVD. CARDIOVASCULAR: S1, S2 muffled. RESPIRATORY: Breath sounds diminished in the bases. A few scattered rhonchi. ABDOMEN: Soft. NERVOUS SYSTEM: No focal deficits. LABS: Hemoglobin is 7.2, and glucose noted. ASSESSMENT: 1. Large sacral decubitus ulcer, stage IV, status post excisional debridement on VRE, Citrobacter freundii. 2. Deep tissue injury to the right heel. 3. Anemia, normocytic anemia of chronic disease. 4. Leukopenia. 5. Diabetes mellitus type 2 with hypoglycemia. 6. History of recent septic arthritis of the left knee and MSSA bacteremia. 7. History of recent left heart catheterization with PTCA to RCA. 8. Hypertension. 9. Hyperlipidemia. 10.History of prostate cancer. 11.History of spondylosis. 12.Chronic anemia. 13.Deep vein thrombosis prophylaxis. 14.Gastrointestinal prophylaxis. 15.Obesity with body mass index of 31.6. 16.FULL CODE. RECOMMENDATIONS AND DISCUSSION: I recommend to continue current medications, symptomatic treatment. Otherwise at this time I recommend repeat labs tomorrow. Continue the antibiotics. Patient is currently on Cefepime. I would also recommend to reduce the night dose of insulin and continue to monitor. Further recommendations to follow. The prognosis is guarded and Dr. Astudillo will follow tomorrow. MMODL / IJN: [id number] /
[2020-09-22] MEDS: INSULIN DETEMIR (LEVEMIR) 100 UNIT/ML SYR SQ SCH (22:07)
--- NOTE | 2020-09-22 22:09 | PN ---
PROGRESS NOTE DATE OF SERVICE: 09/21/2020. I am covering for Dr. Astudillo. HISTORY OF PRESENT ILLNESS: This 75-year-old gentleman who was admitted with large sacral decubitus had debridement. The culture showed multiple organisms. Patient being closely monitored. No chest pain. No palpitations. No fever. PHYSICAL EXAMINATION: Alert and oriented times three. Pulse 101, blood pressure 129/62, respiration 17, temperature 98.2, pulse ox 94 percent. HEENT: Conjunctivae normal. NECK: No JVD. CARDIOVASCULAR: S1, S2 muffled. RESPIRATORY SYSTEM: Breath sounds diminished at the bases. A few scattered rhonchi. ABDOMEN: Soft. LEGS: No edema. No swelling. NERVOUS SYSTEM: Unchanged. LABS: At this time shows: Accu-Cheks are noted. ASSESSMENT: 1. Large sacral decubitus ulcer, stage IV, status post excisional debridement, VRE and as well as Citrobacter freundii. 2. Deep tissue injury to the right heel. 3. Leukopenia. 4. Anemia, normocytic anemia of chronic disease. 5. History of recent septic arthritis in the left knee as well as MSSA bacteremia. 6. History of recent left heart catheterization, and PTCA to the RCA. 7. Hypertension. 8. Hyperlipidemia. 9. Diabetes mellitus type 2. 10.History of prostate cancer. 11.History of spondylosis. 12.Chronic anemia. 13.Deep vein thrombosis prophylaxis. 14.GI prophylaxis. 15.Obesity with body mass index of 31.6. 16.FULL CODE. RECOMMENDATIONS AND DISCUSSION: Recommend to continue current medications, management and symptomatic treatment. Otherwise, continue empiric antibiotics. Follow the cultures. Closely follow with multiple consultants including Surgery and Infectious Disease. Further recommendations to follow. MMODL / IJN: [id number] /
[2020-09-23] MEDS: SODIUM CHLORIDE 0.9% 1,000 ML IV SCH ×2 (04:15→20:41)
[2020-09-23 07:22] LABS: Glucose,Whole Blood 85 mg/dL (75-99)
[2020-09-23] MEDS: INSULIN ASPART (NovoLOG) 100 UNIT/ML VIAL SQ SCH ×4 (07:28→21:12)
[2020-09-23] MEDS: ASPIRIN 81 MG PO SCH (07:59)
[2020-09-23] MEDS: HYDROcodone/APAP 10-325MG 1 EACH TAB PO SCH ×4 (07:59→21:11)
[2020-09-23] MEDS: CLOPIDOGREL 75 MG TAB PO SCH (08:00)
[2020-09-23] MEDS: METOPROLOL TARTRATE 50 MG TAB PO SCH ×2 (08:00→16:38)
[2020-09-23] MEDS: metroNIDAZOLE 500 MG TAB PO SCH ×3 (08:00→21:08)
[2020-09-23] MEDS: PANTOPRAZOLE 40 MG TABLET PO SCH ×2 (08:00→16:38)
[2020-09-23] MEDS: HEPARIN SODIUM,PORCINE/PF 5,000 UNIT/0.5 ML SYRINGE SQ SCH ×2 (08:00→21:12)
[2020-09-23] MEDS: CEFEPIME 2 GM in SODIUM CHLORIDE 0.9% 100 ML IVPB SCH ×5 (08:00→23:10)
[2020-09-23] MEDS: MULTIVITAMINS, THERA 1 EACH TAB PO SCH (08:00)
[2020-09-23] MEDS: ONDANSETRON 4 MG/2 ML VIAL IVP PRN (08:02)
--- NOTE | 2020-09-23 08:40 | P.DS ---
Providers Date of admission: 09/17/20 16:14 Expected date of discharge: 09/24/20 Attending physician: German Astudillo Consults: 09/17/20 15:25 Consult Physician Routine Consulting Provider: Wisam Hartman Consult Reason/Comments: Decubitus ulcer Do you want consulting provider notified?: Yes 09/18/20 07:42 Consult Physician Routine Consulting Provider: Yessy Andre Consult Reason/Comments: L knee/bacteremia, cdiff, decub Do you want consulting provider notified?: Yes 09/18/20 07:51 Consult Physician Routine Consulting Provider: Krishna Vora Consult Reason/Comments: afib,hx cad Do you want consulting provider notified?: Yes 09/18/20 07:53 Consult Physician Routine Consulting Provider: Ambrosio Valencia Consult Reason/Comments: extensive cardiac hx, clearance for wound debridement Do you want consulting provider notified?: Yes 09/19/20 14:25 Consult Physician Routine Consulting Provider: Venancio Hendricks Consult Reason/Comments: anemia, see workup on last admission Do you want consulting provider notified?: Yes 09/23/20 07:47 Consult Physician Routine Consulting Provider: Raji Choi Consult Reason/Comments: right hip pain Do you want consulting provider notified?: Yes Primary care physician: German Astudillo [facility] Course: HISTORY OF PRESENT ILLNESS: This is a 75-year-old male patient of Dr. Astudillo with previous medical history significant for coronary artery disease status post percutaneous coronary intervention and stent placement last one was in 12/13/2019 in the mid RCA at that time he was found to have a totally occluded obtuse marginal one of the LCx, with collaterals from the PDA, hypertension and hypertensive cardio vascular disease, hyperlipidemia, diabetes mellitus type 2, diabetic polyneuropathy, 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 as well as radio frequency ablation, prostate cancer status post radiation therapy, patient took himself off the Plavix due to significant bruising and bleeding against his salon leader recommendation and he was taken a baby aspirin alone, 07/28/[address] suffered from inferior wall ST elevation myocardial infarction patient was 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 Patient then had admission August 05 through August 16 at which time he was treated for septic arthritis of the left knee with persistent MSSA bacteremia status post I&D of the left total knee. He also suffered from lactic acidosis, thrombocytopenia secondary to sepsis, acute kidney injury. Patient was stabilized and discharged to [facility] for subacute rehab. Patient was continued on for a 6 week course. Unfortunately, patient developed C. difficile colitis treated with oral vancomycin. Patient has done very little physical therapy and in bed most the time, developed decubitus ulcer with worsening to the coccyx area. Patient also has a deep pressure injury to the right heel and plantar surface of the right foot. He has been treated by the wound team at [facility] and underwent debridement but was unfortunately have continued to worsen and he now has bone visualized in the coccyx wound as well as necrotic tissue and was transferred to [facility] emergency center to be evaluated by general surgery for surgical debridement in the OR. Consult added for Dr. Andre and cardiology. 09/19: She is scheduled today for debridement of the decubitus ulcer at this cocc with Dr. Hartman. Patient has been seen by Dr. Lucio and he has recommended Unasyn. Patient states his pain is okay at this time. He is been started on Glucerna but patient is not drinking this. Patient encouraged to increase protein intake. Repeat blood work reveals WBC 2.9, hemoglobin 7.4, platelet count 250. INR 1.7. Electrolytes normal. BUN 6 and creatinine 0.75. Blood sugars running between 97 and 110. Calcium 7.5. Wound cultures in progress as well as blood cultures showing no growth. One dose of Ferrlecit ordered. Patient has no signs of bleeding. 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 Consult with oncology added. 09/23: Patient was seen and followed by cardiology with recommendations to continue dual antiplatelet therapy and follow up with Dr. Valencia. Patient was also seen by oncology for anemia and leukopenia. Dr. Andre has recommended PICC line for 3 week course of cefepime and daptomycin as well as oral Flagyl. Patient states he has not been out of bed. We will ask for patient to be moved today out of bed. He states he has right hip pain which is limiting his activity. We will ask to reevaluate this. This was evaluated on a previous admission. There is no warmth to the right hip region. Patient is requiring pain medication around the clock. Patient is requesting that the Shelley catheter be removed but due to his inactivity and decubitus ulcer on the coccyx, we prefer to keep the Shelley catheter for now to allow wound healing. Patient is to have a wound VAC in place for discharge. We will see how patient does with activity. He denies having any diarrhea. He states he has low appetite. Patient has been afebrile, heart rate 101, blood pressure 122/76, pulse ox 94% on room air. Capillary blood glucose running between 53 and 140. A PICC line will be ordered for today and if all issues can be addressed today, patient will be discharged for subacute rehab and continue IV antibiotic therapy. Patient apparently has changed facilities and will be going to [facility] instead of [facility]. Shelley catheter will be removed. Patient to increase activity. 09/24: Patient has been afebrile, heart rate 67, blood pressure 130/65, pulse ox 98% on room air. Pain to coccyx region is improved. He denies any fever or chills. Dr. Andre is planning for wound VAC [facility] Capillary blood glucose running between 99 and 144. Patient has been seen by orthopedics and recommendations are for physical therapy. No surgical intervention. Patient to follow up as needed on an outpatient basis. New PICC line has been inserted yesterday. Shelley catheter has been removed. Social work is working with the patient and his daughter regarding discharge planning. No change in discharge mediations. ASSESSMENT AND PLAN: 1. Stage IV decubitus ulcer coccyx, failed outpatient treatment status post outpatient debridement and antibiotics status post surgical debridement in the OR with Dr. Hartman on 09/19. 2. Deep tissue injury to the right heel and small area on the right plantar surface. 3. History of recent septic arthritis of the left knee and MSSA bacteremia s/p debridement of the left knee on last admission. 4. Recent left heart catheterization with PCI of the RCA on 07/30/2020. 5. Hypertension and hypertensive cardiovascular disease. 8. Hyperlipidemia. 9. Diabetes mellitus type 2. 10. History of prostate cancer status post rotation. 11. 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 12. Chronic anemia and leukopenia status post evaluation by oncology. DISCHARGE PLAN [place] Impression and plan of care have been directed as dictated by the signing physician. Padma Monsalve nurse practitioner acting as scribe for signing physician. Patient Condition at Discharge: Good Plan - Discharge Summary Discharge Rx Participant: No New Discharge Prescriptions: New HYDROcodone/APAP 10-325MG [Donna 10-325] 1 each PO QID #12 tab metroNIDAZOLE [Flagyl] 500 mg PO TID #126 tab Multivitamins, Thera [Multivitamin (formulary)] 1 each PO DAILY@1200 tab Ciprofloxacin HCl [Cipro] 500 mg PO BID 42 Days #2 tab DAPTOmycin [Daptomycin] 700 mg IVPB DAILY #42 dose Continue Ipratropium-Albuterol Nebulize [Duoneb 0.5 mg-3 mg/3 ml Soln] 3 ml INHALATION RT-QID PRN ml PRN Reason: Shortness Of Breath Or Wheezing methocarbamoL [Robaxin] 750 mg PO TID PRN tab PRN Reason: Muscle Spasm Lidocaine Cream 5% 1 applic TOPICAL DAILY PRN PRN Reason: Pain bisacodyL [Dulcolax] 10 mg RECTAL DAILY PRN PRN Reason: Constipation Acetaminophen Tab [Tylenol] 1,000 mg PO Q6HR PRN PRN Reason: Fever And/ Or Pain INSULIN ASPART (NovoLOG) [NovoLOG (formulary)] See Protocol SQ ACHS Lactose-Reduced Food [Ensure Plus] 1 can PO BID@0800,1700 Insulin Detemir (Levemir) [Levemir] 22 unit SQ HS@2100 Clopidogrel [Plavix] 75 mg PO DAILY@0800 Aspirin [Nada Aspirin EC] 81 mg PO DAILY@0800 Magnesium Hydroxide [Milk of Magnesia Concentrate] 7,200 mg PO DAILY PRN PRN Reason: Constipation 0.9 % Sodium Chloride [Sodium Chloride Flush] 1 applic IV TID@0600,1400,2200 Pantoprazole [Protonix] 40 mg PO BID@0800,1700 Potassium Chloride ER [K-Dur 20] 20 meq PO DAILY@1700 Mirtazapine 7.5 mg PO HS@2100 Atorvastatin [Lipitor] 80 mg PO HS@2100 Ivan Packet 1 packet PO BID@1200,2000 Metoprolol Tartrate [Lopressor] 50 mg PO BID@0800,1700 Nystatin 100,000Unit/gm Cream [Mycostatin Cream] 1 applic TOPICAL QID Discontinued HYDROcodone/APAP 10-325MG [Donna 10-325] 1 tab PO BID PRN PRN Reason: Pain ceFAZolin [Kefzol] 2,000 mg IV Q8HR Levofloxacin [Levaquin] 500 mg PO DAILY@0800 Na Phos,M-B/Na Phos,Di-Ba [Fleet Adult] 133 ml RECTAL DAILY PRN PRN Reason: Constipation Discharge Medication List Aspirin [Nada Aspirin EC] 81 mg PO DAILY@0800 08/05/20 [History] Ipratropium-Albuterol Nebulize [Duoneb 0.5 mg-3 mg/3 ml Soln] 3 ml INHALATION RT-QID PRN ml 08/16/20 [Rx] methocarbamoL [Robaxin] 750 mg PO TID PRN tab 08/16/20 [Rx] 0.9 % Sodium Chloride [Sodium Chloride Flush] 1 applic IV TID@0600,1400,2200 09/01/20 [History] Acetaminophen Tab [Tylenol] 1,000 mg PO Q6HR PRN 09/01/20 [History] Atorvastatin [Lipitor] 80 mg PO HS@209909/01/20 [History] Clopidogrel [Plavix] 75 mg PO DAILY@0809/01/20 [History] INSULIN ASPART (NovoLOG) [NovoLOG (formulary)] See Protocol SQ ACHS 09/01/20 [History] Insulin Detemir (Levemir) [Levemir] 22 unit SQ HS@209909/01/20 [History] Lactose-Reduced Food [Ensure Plus] 1 can PO BID@0800,1700 09/01/20 [History] Lidocaine Cream 5% 1 applic TOPICAL DAILY PRN 09/01/20 [History] Magnesium Hydroxide [Milk of Magnesia Concentrate] 7,200 mg PO DAILY PRN 09/01/20 [History] Mirtazapine 7.5 mg PO HS@209909/01/20 [History] Pantoprazole [Protonix] 40 mg PO BID@0800,1700 09/01/20 [History] Potassium Chloride ER [K-Dur 20] 20 meq PO DAILY@1700 09/01/20 [History] bisacodyL [Dulcolax] 10 mg RECTAL DAILY PRN 09/01/20 [History] Ivan Packet 1 packet PO BID@1200,2000 09/17/20 [History] Metoprolol Tartrate [Lopressor] 50 mg PO BID@0800,1700 09/17/20 [History] Nystatin 100,000Unit/gm Cream [Mycostatin Cream] 1 applic TOPICAL QID 09/17/20 [History] Ciprofloxacin HCl [Cipro] 500 mg PO BID 42 Days #2 tab 09/23/20 [Rx] DAPTOmycin [Daptomycin] 700 mg IVPB DAILY #42 dose 09/23/20 [Rx] HYDROcodone/APAP 10-325MG [Donna 10-325] 1 each PO QID #12 tab 09/23/20 [Rx] Multivitamins, Thera [Multivitamin (formulary)] 1 each PO DAILY@1200 tab 11/06 [Rx] metroNIDAZOLE [Flagyl] 500 mg PO TID #126 tab 09/23/20 [Rx] Follow up Appointment(s)/Referral(s): Venancio Hendricks MD [STAFF PHYSICIAN] - 3 Weeks (office to call patient with appointment date and time after D/C) Ambrosio Valencia MD [STAFF PHYSICIAN] - 2 Weeks (office to call Patient after D/C with appointment Date and Time ) German Astudillo MD [Primary Care Provider] - 1 Week (at [facility], [NON-STAFF] - As Needed Raji Choi DO [Doctor of Osteopathic Medicine] - 10/09/20 1:20 pm Yessy Andre MD [STAFF PHYSICIAN] - 10/08/20 2:15 pm Ambulatory/Diagnostic Orders: Basic Metabolic Panel [LAB.AMB] Location: None Selected C Reactive Protein [LAB.AMB] Location: None Selected Complete Blood Count w/diff [LAB.AMB] Location: None Selected Erythrocyte Sedimentation Rate [LAB.AMB] Location: None Selected Activity/Diet/Wound Care/Special Instructions: Wound VAC: Continuous, 120mmHG, black foam, change wednesday , wednesday follow up with Dr andre in wound care center in 1 week , call [phone] to make an appintment Discharge Disposition: TRANSFER TO SNF/ECF
--- NOTE | 2020-09-23 09:09 | P.CNOR ---
History of Present Illness - HPI Consult date: 09/23/20 History of present illness: This is a 75-year-old male who is admitted for a sacral decubitus ulcer. Patient underwent debridement of sacral ulcer on 09/19/2020. Orthopedics is consulted due to right hip pain. Patient has history of right total hip arthroplasty in June of 2019. Patient is seen and evaluated at bedside today. Patient states that he only has pain when he tries to maneuver to get out of bed. Patient localizes his pain to both sides of his lower back. Patient states that his pain is either on the left or the right of the lower back depending on which side he gets out of bed. Patient states that he has not been very mobile lately and is not sure how well he can ambulate. Patient denies any pain in the right hip with range of motion of the right lower extremity. Patient denies any fever/chills, numbness, weakness, tingling, abdominal pain, shortness of breath or chest pain. Review of Systems See HPI. Past Medical History Past Medical History: Atrial Fibrillation, Coronary Artery Disease (CAD), Cancer, Chest Pain / Angina, Diabetes Mellitus, GERD/Reflux, Hyperlipidemia, Hypertension, Osteoarthritis (OA), Prostate Disorder Additional Past Medical History / Comment(s): 5 Herniated discs in neck causing headaches & numbness in arm and right lower back and pain and right leg pain. Hx 4 fx ribs, current Prostate Cancer- last radiation tx Mar 25-2016 had total of 44 tx. occ constipation, Last Myocardial Infarction Date:: UNKOWN History of Any Multi-Drug Resistant Organisms: None Reported Past Surgical History: Adenoidectomy, Heart Catheterization, Heart Catheterization With Stent, Joint Replacement, Orthopedic Surgery, Tonsillectomy Additional Past Surgical History / Comment(s): PROSTATE BX., LT. KNEE ARTHROSCOPY X 2, CERVICAL FUSIONS, COLONOSCOPY, ÁNGEL. CATARTACTS.Pain Procedures , rt radio frequency procedures. , total 3 heart stents, hemorrhoidectomy,heart cath August 2017-lt knee replacement. Stent replacement Past Anesthesia/Blood Transfusion Reactions: No Reported Reaction Additional Past Anesthesia/Blood Transfusion Reaction / Comm: doesn't like enclosed tight spaces Date of Last Stent Placement:: 04/24/17 Past Psychological History: No Psychological Hx Reported Additional Psychological History / Comment(s): Pt resides mostly alone. He has a young woman that he considers a meredith who stays occasionally with him. Smoking Status: Former smoker Past Alcohol Use History: None Reported Additional Past Alcohol Use History / Comment(s): Pt started smoking in 1981 smoked for 2 yrs, smoked 1/2 ppd. 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 Past Drug Use History: None Reported - Past Family History Father Additional Family Medical History / Comment(s): Father at age 49 from coronary artery disease. Brother(s) Additional Family Medical History / Comment(s): Patient has one brother with history of smoking and no other major medical problems. Patient does not have any sisters. Daughter(s) Additional Family Medical History / Comment(s): He has one daughter alive in [place] with no major medical problems. Patient has one daughter with history of muscular dystrophy and of pneumonia. Son(s) Family Medical History: No Reported History Additional Family Medical History / Comment(s): Patient has one son with no major medical problems. Mother Family Medical History: Cancer Additional Family Medical History / Comment(s): Mother at age 81 from uterine cancer with metastatic disease. Medications and Allergies Home Medications Medication Instructions Recorded Confirmed Type Aspirin [[place] Aspirin EC] 81 mg PO DAILY@0800 08/05/20 09/17/20 History Ipratropium-Albuterol Nebulize 3 ml INHALATION RT-QID PRN ml 08/16/20 09/17/20 Rx [Duoneb 0.5 mg-3 mg/3 ml Soln] methocarbamoL [Robaxin] 750 mg PO TID PRN tab 08/16/20 09/17/20 Rx 0.9 % Sodium Chloride [Sodium 1 applic IV TID@0600,1400,2200 09/01/20 09/17/20 History Chloride Flush] Acetaminophen Tab [Tylenol] 1,000 mg PO Q6HR PRN 09/01/20 09/17/20 History Atorvastatin [Lipitor] 80 mg PO HS@2100 09/01/20 09/17/20 History Clopidogrel [Plavix] 75 mg PO DAILY@0800 09/01/20 09/17/20 History INSULIN ASPART (NovoLOG) [NovoLOG See Protocol SQ ACHS 09/01/20 09/17/20 History (formulary)] Insulin Detemir (Levemir) [Levemir] 22 unit SQ HS@209909/01/20 09/17/20 History Lactose-Reduced Food [Ensure Plus] 1 can PO BID@0800,1700 09/01/20 09/17/20 History Lidocaine Cream 5% 1 applic TOPICAL DAILY PRN 09/01/20 09/17/20 History Magnesium Hydroxide [Milk of 7,200 mg PO DAILY PRN 09/01/20 09/17/20 History Magnesia Concentrate] Mirtazapine 7.5 mg PO HS@209909/01/20 09/17/20 History Pantoprazole [Protonix] 40 mg PO BID@0800,169909/01/20 09/17/20 History Potassium Chloride ER [K-Dur 20] 20 meq PO DAILY@169909/01/20 09/17/20 History bisacodyL [Dulcolax] 10 mg RECTAL DAILY PRN 09/01/20 09/17/20 History Ivan Packet 1 packet PO BID@1200,199909/17/20 09/17/20 History Metoprolol Tartrate [Lopressor] 50 mg PO BID@0800,1700 09/17/20 09/17/20 History Nystatin 100,000Unit/gm Cream 1 applic TOPICAL QID 09/17/20 09/17/20 History [Mycostatin Cream] Cefepime [Maxipime] 2 gm IVPB Q8HR #63 vial 09/23/20 Rx DAPTOmycin [Cubicin] 700 mg IVPB Q24H #21 vial 09/23/20 Rx HYDROcodone/APAP 10-325MG [[place] 1 each PO QID #12 tab 09/23/20 Rx 10-325] Multivitamins, Thera [Multivitamin 1 each PO DAILY@1200 tab 09/23/20 Rx (formulary)] metroNIDAZOLE [Flagyl] 500 mg PO TID #63 tab 09/23/20 Rx Allergies Allergy/AdvReac Type Severity Reaction Status Date / Time No Known Allergies Allergy Verified 09/17/20 13:04 Physical Examination Vital signs are stable. Patient is in no acute distress and is alert and oriented 3. Patient has full active and passive range of motion of the right hip without pain or difficulty. There is no swelling or erythema. Skin is intact. There is no tenderness to palpation over the greater trochanter. Patient is able to actively sit up on the side of his bed which causes some discomfort in the lower back. Calf is soft and nontender to palpation. Patient has full foot and ankle motion without pain or difficulty. Sensation intact. Neurovascular status and circulatory status are intact. Results - Labs Labs: Microbiology - Last 24 Hours (Table) 09/17/20 13:30 Blood Culture - Preliminary Blood No Growth after 120 hours 09/17/20 13:30 Blood Culture - Preliminary Blood No Growth after 120 hours 09/18/20 10:02 Anaerobic Culture - Final Other - Other Anaerobic Gm Negative Bacilli Anaerobic Gm Negative Bacilli#2 Anaerobic Gram Positive Cocci 09/18/20 07:26 Blood Culture - Preliminary Blood No Growth after 96 hours H & H 09/17/20 09/18/20 09/19/20 Range/Units 13:30 07:26 07:53 Hgb 7.8 L 8.1 L 7.4 L (13.0-17.5) gm/dL Hct 24.2 L 26.0 L 24.1 L (39.0-53.0) % 09/19/20 09/20/20 Range/Units 19:31 07:38 Hgb 7.2 L 7.2 L (13.0-17.5) gm/dL Hct 24.0 L 25.2 L (39.0-53.0) % Coagulation 09/17/20 09/19/20 Range/Units 13:30 07:53 INR 1.4 H 1.7 H (<1.2) Result Diagrams: 09/20/20 07:38 09/20/20 07:38 Assessment and Plan (1) Decubitus ulcer Current Visit: Yes Status: Acute Code(s): L89.90 - PRESSURE ULCER OF UNSPECIFIED SITE, UNSPECIFIED STAGE SNOMED Code(s): 994467873 Plan: 1. Patient has no pain in the right hip with full active and passive range of motion. There is no swelling or erythema. 2. Recommend physical therapy for mobilization. 3. No surgical intervention planned. Patient may follow up as needed on an outpatient basis.
[2020-09-23 11:38] LABS: Glucose,Whole Blood 107 mg/dL (75-99)
--- NOTE | 2020-09-23 12:25 | P.PN ---
Subjective Progress Note Date: 09/23/20 Principal diagnosis: Sacral decubitus ulcer Patient doing better today. Says his pain in the sacral region is improved. No further bleeding. He is afebrile. Objective - Vital Signs Vital signs: Vital Signs Temp 98.1 F 09/23/20 07:53 Pulse 110 H 09/23/20 07:53 Resp 16 09/23/20 07:53 BP 148/71 09/23/20 07:53 Pulse Ox 96 09/23/20 07:53 Intake & Output 09/22/20 09/23/20 09/23/20 18:59 06:59 18:59 Output Total 900 600 300 Balance -900 -600 -300 Output: Urine 900 600 300 Uretheral (Shelley) 300 Other: Voiding Method Indwelling Catheter Indwelling Catheter Indwelling Catheter # Bowel Movements 1 - Exam Sacral wound clean. Small amount of adherent clot in the right wound bed which was evacuated manually. No erythema. Minimal tenderness - Labs CBC & Chem 7: 09/20/20 07:38 09/20/20 07:38 Labs: Abnormal Lab Results - Last 24 Hours (Table) 09/23/20 Range/Units 11:37 POC Glucose (mg/dL) 107 H (75-99) mg/dL Microbiology - Last 24 Hours (Table) 09/18/20 07:26 Blood Culture - Preliminary Blood No Growth after 120 hours 09/17/20 13:30 Blood Culture - Preliminary Blood No Growth after 120 hours 09/17/20 13:30 Blood Culture - Preliminary Blood No Growth after 120 hours 09/18/20 10:02 Anaerobic Culture - Final Other - Other Anaerobic Gm Negative Bacilli Anaerobic Gm Negative Bacilli#2 Anaerobic Gram Positive Cocci Assessment and Plan (1) Decubitus ulcer Narrative/Plan: Patient doing well at this time. Continue local wound care. Discussed with infectious disease. They will begin wound VAC placement after transfer to rehab. Current Visit: Yes Status: Acute Code(s): L89.90 - PRESSURE ULCER OF UNSPECIFIED SITE, UNSPECIFIED STAGE SNOMED Code(s): 016734326
--- NOTE | 2020-09-23 13:00 | PN ---
PROGRESS NOTE DATE OF SERVICE: 09/25/2020 REASON FOR FOLLOW UP: Infected sacral pressure ulcer, stage IV with osteomyelitis. INTERVAL HISTORY: The patient is currently afebrile. The patient is breathing comfortably. Denies any chest pain, shortness of breath, cough, no abdominal pain. Pain to the sacral area is currently controlled. PHYSICAL EXAMINATION: Blood pressure 148/71, pulse of 101, temperature 98.1. He is 96% on room air. General description: The patient is an elderly male lying in bed in no distress. Respiratory system: Unlabored breathing, clear to auscultation anteriorly. HEART S1, S2. Regular rate and rhythm. ABDOMEN: Soft and no tenderness. EXTREMITIES: No edema of the feet. Sacral wound with minimal slough tissue. LABS: No new labs have been obtained today. Culture currently positive for anaerobe, Citrobacter and VRE. DIAGNOSTIC IMPRESSION AND PLAN: Patient with infected sacral pressure ulcer stage IV with underlying osteomyelitis, status post debridement. Culture with Citrobacter, VRE and anaerobes. Plan is for daptomycin or Cipro, Flagyl for 6 weeks. Local wound care with wound VAC. [facility] with me [facility] 2 weeks and close outpatient followup. MMODL / IJN: [id number] /
[2020-09-23] MEDS ORDERED: LIDOCAINE 1% INJ 10MG/ML (20 ML MDV) SQ ONE (14:21)
[2020-09-23 14:27] LABS: Albumin 2.13 g/dL (3.80-4.90); Gamma Globulin 1.31 g/dL (0.70-1.50)
--- NOTE | 2020-09-23 15:11 | P.PN ---
Subjective Progress Note Date: 09/23/20 HISTORY OF PRESENT ILLNESS: This is a 75-year-old male patient of Dr. 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 as well as radio frequency ablation, prostate cancer status post radiation therapy, patient took himself off the Plavix due to significant bruising and bleeding against his jacquard card lacer recommendation and he was taken a baby aspirin alone, 07/28/[address] suffered from inferior wall ST elevation myocardial infarction patient was taken to the quality lab technician and an attempted angioplasty of a computed occluded RCA had failed and the patient was transferred to [facility] for complex angioplasty of the occluded RCA, apparently patient did have 2 stents placement in the RCA and he was discharged from [facility]. [place] [facility] then had admission August 05 through August 16 at which time he was treated for septic arthritis of the left knee with persistent MSSA bacteremia status post I&D of the left total knee. He also suffered from lactic acidosis, thrombocytopenia secondary to sepsis, acute kidney injury. Patient was stabilized and discharged to [facility] for subacute rehab. Patient was continued on for a 6 week course. Unfortunately, patient developed C. difficile colitis treated with oral vancomycin. Patient has done very little physical therapy and in bed most the time, developed decubitus ulcer with worsening to the coccyx area. Patient also has a deep pressure injury to the right heel and plantar surface of the right foot. He has been treated by the wound team at [facility] and underwent debridement but was unfortunately have continued to worsen and he now has bone visualized in the coccyx wound as well as necrotic tissue and was transferred to [facility] emergency center to be evaluated by general surgery for surgical debridement in the OR. Consult added for Dr. Strickland and cardiology. 09/19: She is scheduled today for debridement of the decubitus ulcer at this coccyx with Dr. Hartman. Patient has been seen by Dr. uLcio and he has recommended Unasyn. Patient states his pain is okay at this time. He is been started on Glucerna but patient is not drinking this. Patient encouraged to increase protein intake. Repeat blood work reveals WBC 2.9, hemoglobin 7.4, platelet count 250. INR 1.7. Electrolytes normal. BUN 6 and creatinine 0.75. Blood sugars running between 97 and 110. Calcium 7.5. Wound cultures in progress as well as blood cultures showing no growth. One dose of Ferrlecit ordered. Patient has no signs of bleeding. 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 Consult with oncology added. 09/23: Patient was seen and followed by cardiology with recommendations to continue dual antiplatelet therapy and follow up with Dr. Valencia. Patient was also seen by oncology for anemia and leukopenia. Dr. Strickland has recommended PICC line for 3 week course of cefepime and daptomycin as well as oral Flagyl. Patient states he has not been out of bed. We will ask for patient to be moved today out of bed. He states he has right hip pain which is limiting his activity. We will ask to reevaluate this. This was evaluated on a previous admission. There is no warmth to the right hip region. Patient is requiring pain medication around the clock. Patient is requesting that the Shelley catheter be removed but due to his inactivity and decubitus ulcer on the coccyx, we prefer to keep the Shelley catheter for now to allow wound healing. Patient is to have a wound VAC in place for discharge. We will see how patient does with activity. He denies having any diarrhea. He states he has low appetite. Patient has been afebrile, heart rate 101, blood pressure 122/76, pulse ox 94% on room air. Capillary blood glucose running between 53 and 140. A PICC line will be ordered for today and if all issues can be addressed today, patient will be discharged for subacute rehab and continue IV antibiotic therapy. Patient apparently has changed facilities and will be going to [facility] instead of [facility]. Shelley catheter will be removed. Patient to increase activity. REVIEW OF SYSTEMS: Constitutional: Denies fever, denies chills, no night sweats, fatigue , reported lethargy reported weight loss. HEENT: No headache. No blurred vision or double vision, no loss of vision. No loss of Hearing, no ringing in the ears, no dizziness. No nasal drainage or congestion. No epistaxis. No sore throat. Respiratory: No shortness of breath, no cough, no sputum production. No wheezing. Reports dyspnea with activity. Cardiovascular: No chest pain, no lower extremity edema. No palpitations. No paroxysmal nocturnal dyspnea. No orthopnea. No lightheadedness or dizziness. No syncopal episodes. Gastrointestinal: Reports no abdominal pain. No nausea, vomiting. No diarrhea. No constipation. No bloody or tarry stools reports loss of appetite. Genitourinary: No dysuria, increased frequency, urgency. No urinary retention. Musculoskeletal: Positive for myalgias. positive for muscle weakness, Positive for gait dysfunction, no frequent falls, positive for left knee pain, locking, positive for low back pain . Integumentary: No wounds, no lesions. No rash or pruritus. brpositive for bruising. No change in hair or nails. Neurologic: No aphasia. No facial droop. No change in mentation. No head injury. No headache. No paralysis. No paresthesia. Psychiatric: No depression. No anxiety. No mood swings. Endocrine: No abnormal blood sugars. PHYSICAL EXAMINATION: General: This is 75-year-old male who appears to be in no distress. HEENT: Head is atraumatic, normocephalic, pupils were equal round reactive to light and recommendation, extraocular muscle movement were intact, sclera nonicteric, conjunctivae were pale, mucous membranes of the mouth are somewhat dry. Neck: Supple, no JVP, normal carotid upstroke bilaterally, no lymphadenopathy. Chest: Decreased breath sounds at the bases, few rhonchi, no extremity wheezes, no chest wall tenderness, no intercostal retractions. Heart: First heart sound is normal, second heart sound is normal there is systolic ejection murmur 2/6 left sternal border. Abdomen: Soft, nontender, nondistended, positive bowel sounds, no hepatosplenomegaly Extremities: There is no edema no calf tenderness DP + 1 bilaterally, left knee no tenderness. Skin: Large decubitus ulcer to the coccyx area, deep tissue injury to the right heel and small area to the plantar surface of the right foot, please see nursing documentation for details. Neurologic examination: Patient is awake alert and oriented X3, cranial nerves II-12 appear grossly intact, muscle power were 5 out of 5 in upper extremities a nd 5 out of 5 in bilateral lower extremities, deep tendon reflexes normal bilaterally. ASSESSMENT AND PLAN: 1. Stage IV decubitus ulcer coccyx, failed outpatient treatment status post outpatient debridement and antibiotics with Levaquin. S/p surgical debridement in the OR with Dr. Hartman, consult Dr. Strickland appreciated. Continue daptomycin, cefepime and Flagyl for now. Dr. Strickland has recommended daptomycin, oral ciprofloxacin, oral Flagyl for 6 weeks course outpatient. 2. Deep tissue injury to the right heel and small area on the right plantar surface. Offloading and simple dressing. 3. History of recent septic arthritis of the left knee and MSSA bacteremia s/p debridement of the left knee on last admission. Continue Unasyn. 4. Recent left heart catheterization with PCI of the RCA on 07/30/2020 Continue patient on aspirin 81 g once every day, Plavix 75 mg orally once every day, Lopressor 50 mg twice daily, atorvastatin 80 mg once every day. Cardiology consult. 5. Hypertension and hypertensive cardiovascular disease. Continue the patient on Lopressor. 8. Hyperlipidemia. Continue patient on atorvastatin 80 mg orally once every day. 9. Diabetes mellitus type 2. Start the patient on sliding scale insulin along with Lantus 22 units at bedtime. 10. History of prostate cance status post rotation. Stable at this time. 11. 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 Continue current pain management. 12. Chronic anemia. Consult with oncology, Ferrlecit 1 dose ordered. 13. Right hip pain. Consult with orthopedics. 14. Chronic anemia and leukopenia status post evaluation by oncology. 15. DVT prophylaxis. Bilateral knee-high ADAIR hose. Avoid heparin for now. 16. GI prophylaxis. Protonix 40 mg orally twice daily. 15. Patient is full code. DISCHARGE PLAN Subacute rehab. Social work is working with facilities and patient to find a rehab center for the patient. Impression and plan of care have been directed as dictated by the signing physician. Padma Monsalve nurse practitioner acting as scribe for signing physician. Objective - Vital Signs Vital signs: Vital Signs Temp 97.8 F 09/23/20 01:02 Pulse 101 H 09/23/20 01:02 Resp 15 09/23/20 01:02 BP 122/76 09/23/20 01:02 Pulse Ox 94 L 09/23/20 01:02 Intake & Output 09/22/20 09/23/20 09/23/20 18:59 06:59 18:59 Output Total 900 600 Balance -900 -600 Output: Urine 900 600 Other: Voiding Method Indwelling Catheter Indwelling Catheter # Bowel Movements 1 - Labs CBC & Chem 7: 09/20/20 07:38 09/20/20 07:38 Labs: Abnormal Lab Results - Last 24 Hours (Table) 09/22/20 09/22/20 Range/Units 07:33 08:26 POC Glucose (mg/dL) 53 L 140 H (75-99) mg/dL Microbiology - Last 24 Hours (Table) 09/17/20 13:30 Blood Culture - Preliminary Blood No Growth after 120 hours 09/17/20 13:30 Blood Culture - Preliminary Blood No Growth after 120 hours 09/18/20 10:02 Anaerobic Culture - Final Other - Other Anaerobic Gm Negative Bacilli Anaerobic Gm Negative Bacilli#2 Anaerobic Gram Positive Cocci 09/18/20 07:26 Blood Culture - Preliminary Blood No Growth after 96 hours
[2020-09-23] MEDS: POTASSIUM CHLORIDE ER 20 MEQ TAB.ER PO SCH (16:39)
[2020-09-23 17:05] LABS: Glucose,Whole Blood 113 mg/dL (75-99)
[2020-09-23] MEDS: NYSTATIN 100,000UNIT/GM CREAM 30 GM TUBE TOPICAL SCH ×3 (18:35→21:13)
[2020-09-23 20:40] LABS: Glucose,Whole Blood 144 mg/dL (75-99)
[2020-09-23] MEDS: INSULIN DETEMIR (LEVEMIR) 100 UNIT/ML SYR SQ SCH (20:40)
[2020-09-23] MEDS: MIRTAZAPINE 15 MG TAB PO SCH (21:08)
[2020-09-23 21:18] LABS: Total Protein 24 Hour,Urine 914.6 mg/24Hr; Total Volume 24 Hour,Urine 1050 mL
[2020-09-24 06:53] LABS: Glucose,Whole Blood 99 mg/dL (75-99)
[2020-09-24] MEDS: metroNIDAZOLE 500 MG TAB PO SCH ×2 (08:15→14:48)
[2020-09-24] MEDS: CLOPIDOGREL 75 MG TAB PO SCH (08:15)
[2020-09-24] MEDS: ASPIRIN 81 MG PO SCH (08:15)
[2020-09-24] MEDS: METOPROLOL TARTRATE 50 MG TAB PO SCH ×2 (08:16→14:48)
[2020-09-24] MEDS: PANTOPRAZOLE 40 MG TABLET PO SCH ×2 (08:16→14:48)
[2020-09-24] MEDS: HYDROcodone/APAP 10-325MG 1 EACH TAB PO SCH ×2 (08:16→14:24)
[2020-09-24] MEDS: MULTIVITAMINS, THERA 1 EACH TAB PO SCH (08:16)
[2020-09-24] MEDS: ONDANSETRON 4 MG/2 ML VIAL IVP PRN (08:27)
[2020-09-24] MEDS: CEFEPIME 2 GM in SODIUM CHLORIDE 0.9% 100 ML IVPB SCH (08:33)
[2020-09-24] MEDS: INSULIN ASPART (NovoLOG) 100 UNIT/ML VIAL SQ SCH ×2 (08:41→12:51)
[2020-09-24] MEDS: SODIUM CHLORIDE 0.9% 1,000 ML IV SCH (08:41)
[2020-09-24] MEDS: HEPARIN SODIUM,PORCINE/PF 5,000 UNIT/0.5 ML SYRINGE SQ SCH (08:42)
[2020-09-24] MEDS: NYSTATIN 100,000UNIT/GM CREAM 30 GM TUBE TOPICAL SCH ×2 (08:43→14:41)
--- NOTE | 2020-09-24 09:14 | P.PN ---
Subjective Progress Note Date: 09/24/20 HISTORY OF PRESENT ILLNESS: This is a 75-year-old male patient of Dr. 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 as well as radio frequency ablation, prostate cancer status post radiation therapy, patient took himself off the Plavix due to significant bruising and bleeding against his stable cleaner recommendation and he was taken a baby aspirin alone, 07/28/[address] suffered from inferior wall ST elevation myocardial infarction patient was taken to the cathode builder and an attempted angioplasty of a computed occluded RCA had failed and the patient was transferred to [facility] for complex angioplasty of the occluded RCA, apparently patient did have 2 stents placement in the RCA and he was discharged from [facility]. [place] [facility] then had admission August 05 through August 16 at which time he was treated for septic arthritis of the left knee with persistent MSSA bacteremia status post I&D of the left total knee. He also suffered from lactic acidosis, thrombocytopenia secondary to sepsis, acute kidney injury. Patient was stabilized and discharged to [facility] for subacute rehab. Patient was continued on for a 6 week course. Unfortunately, patient developed C. difficile colitis treated with oral vancomycin. Patient has done very little physical therapy and in bed most the time, developed decubitus ulcer with worsening to the coccyx area. Patient also has a deep pressure injury to the right heel and plantar surface of the right foot. He has been treated by the wound team at [facility] and underwent debridement but was unfortunately have continued to worsen and he now has bone visualized in the coccyx wound as well as necrotic tissue and was transferred to [facility] emergency center to be evaluated by general surgery for surgical debridement in the OR. Consult added for Dr. Strickland and cardiology. 09/19: She is scheduled today for debridement of the decubitus ulcer at this coccyx with Dr. Hartman. Patient has been seen by Dr. Lucio and he has recommended Unasyn. Patient states his pain is okay at this time. He is been started on Glucerna but patient is not drinking this. Patient encouraged to increase protein intake. Repeat blood work reveals WBC 2.9, hemoglobin 7.4, platelet count 250. INR 1.7. Electrolytes normal. BUN 6 and creatinine 0.75. Blood sugars running between 97 and 110. Calcium 7.5. Wound cultures in progress as well as blood cultures showing no growth. One dose of Ferrlecit ordered. Patient has no signs of bleeding. 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 Consult with oncology added. 09/23: Patient was seen and followed by cardiology with recommendations to continue dual antiplatelet therapy and follow up with Dr. Valencia. Patient was also seen by oncology for anemia and leukopenia. Dr. Strickland has recommended PICC line for 3 week course of cefepime and daptomycin as well as oral Flagyl. Patient states he has not been out of bed. We will ask for patient to be moved today out of bed. He states he has right hip pain which is limiting his activity. We will ask to reevaluate this. This was evaluated on a previous admission. There is no warmth to the right hip region. Patient is requiring pain medication around the clock. Patient is requesting that the Shelley catheter be removed but due to his inactivity and decubitus ulcer on the coccyx, we prefer to keep the Shelley catheter for now to allow wound healing. Patient is to have a wound VAC in place for discharge. We will see how patient does with activity. He denies having any diarrhea. He states he has low appetite. Patient has been afebrile, heart rate 101, blood pressure 122/76, pulse ox 94% on room air. Capillary blood glucose running between 53 and 140. A PICC line will be ordered for today and if all issues can be addressed today, patient will be discharged for subacute rehab and continue IV antibiotic therapy. Patient apparently has changed facilities and will be going to [facility] instead of [facility]. Shelley catheter will be removed. Patient to increase activity. 09/24: Patient has been afebrile, heart rate 67, blood pressure 130/65, pulse ox 98% on room air. Pain to coccyx region is improved. He denies any fever or chills. Dr. Strickland is planning for wound VAC once patient transferred to [facility]. Capillary blood glucose running between 99 and 144. Patient has been seen by orthopedics and recommendations are for physical therapy. No surgical intervention. Patient to follow up as needed on an outpatient basis. New PICC line has been inserted yesterday. Shelley catheter has been removed. Social work is working with the patient and his daughter regarding discharge planning. No change is discharge mediations. REVIEW OF SYSTEMS: Constitutional: Denies fever, denies chills, no night sweats, fatigue , reported lethargy reported weight loss. HEENT: No headache. No blurred vision or double vision, no loss of vision. No loss of Hearing, no ringing in the ears, no dizziness. No nasal drainage or congestion. No epistaxis. No sore throat. Respiratory: No shortness of breath, no cough, no sputum production. No wheezing. Reports dyspnea with activity. Cardiovascular: No chest pain, no lower extremity edema. No palpitations. No paroxysmal nocturnal dyspnea. No orthopnea. No lightheadedness or dizziness. No syncopal episodes. Gastrointestinal: Reports no abdominal pain. No nausea, vomiting. No diarrhea. No constipation. No bloody or tarry stools reports loss of appetite. Genitourinary: No dysuria, increased frequency, urgency. No urinary retention. Musculoskeletal: Positive for myalgias. positive for muscle weakness, Positive for gait dysfunction, no frequent falls, positive for left knee pain, locking, positive for low back pain . Integumentary: No wounds, no lesions. No rash or pruritus. brpositive for bruising. No change in hair or nails. Neurologic: No aphasia. No facial droop. No change in mentation. No head injury. No headache. No paralysis. No paresthesia. Psychiatric: No depression. No anxiety. No mood swings. Endocrine: No abnormal blood sugars. PHYSICAL EXAMINATION: General: This is 75-year-old male who appears to be in no distress. HEENT: Head is atraumatic, normocephalic, pupils were equal round reactive to light and recommendation, extraocular muscle movement were intact, sclera nonicteric, conjunctivae were pale, mucous membranes of the mouth are somewhat dry. Neck: Supple, no JVP, normal carotid upstroke bilaterally, no lymphadenopathy. Chest: Decreased breath sounds at the bases, few rhonchi, no extremity wheezes, no chest wall tenderness, no intercostal retractions. Heart: First heart sound is normal, second heart sound is normal there is systolic ejection murmur 2/6 left sternal border. Abdomen: Soft, nontender, nondistended, positive bowel sounds, no hepatos plenomegaly Extremities: There is no edema no calf tenderness DP + 1 bilaterally, left knee no tenderness. Skin: Large decubitus ulcer to the coccyx area, deep tissue injury to the right heel and small area to the plantar surface of the right foot, please see nursing documentation for details. Neurologic examination: Patient is awake alert and oriented X3, cranial nerves II-12 appear grossly intact, muscle power were 5 out of 5 in upper extremities and 5 out of 5 in bilateral lower extremities, deep tendon reflexes normal bilaterally. ASSESSMENT AND PLAN: 1. Stage IV decubitus ulcer coccyx, failed outpatient treatment status post outpatient debridement and antibiotics with Levaquin. S/p surgical debridement in the OR with Dr. Hartman, consult Dr. Strickland appreciated. Continue daptomycin, cefepime and Flagyl for now. Dr. Strickland has recommended daptomycin, oral cipr ofloxacin, oral Flagyl for 6 weeks course outpatient. 2. Deep tissue injury to the right heel and small area on the right plantar surface. Offloading and simple dressing. 3. History of recent septic arthritis of the left knee and MSSA bacteremia s/p debridement of the left knee on last admission. Continue Unasyn. 4. Recent left heart catheterization with PCI of the RCA on 07/30/2020 Continue patient on aspirin 81 g once every day, Plavix 75 mg orally once every day, Lopressor 50 mg twice daily, atorvastatin 80 mg once every day. Cardiology consult. 5. Hypertension and hypertensive cardiovascular disease. Continue the patient on Lopressor. 8. Hyperlipidemia. Continue patient on atorvastatin 80 mg orally once every day. 9. Diabetes mellitus type 2. Start the patient on sliding scale insulin along with Lantus 22 units at bedtime. 10. History of prostate cance status post rotation. Stable at this time. 11. 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 Continue current pain management. 12. Chronic anemia. Consult with oncology, Ferrlecit 1 dose ordered. 13. Right hip pain. Consult with orthopedics. 14. Chronic anemia and leukopenia status post evaluation by oncology. 15. DVT prophylaxis. Bilateral knee-high ADAIR hose. Avoid heparin for now. 16. GI prophylaxis. Protonix 40 mg orally twice daily. 15. Patient is full code. DISCHARGE PLAN Subacute rehab. Impression and plan of care have been directed as dictated by the signing physician. Padma Monsalve nurse practitioner acting as scribe for signing physici an. Objective - Vital Signs Vital signs: Vital Signs Temp 98.4 F 09/24/20 02:03 Pulse 90 09/24/20 02:03 Resp 18 09/24/20 02:03 BP 128/65 09/24/20 02:03 Pulse Ox 94 L 09/24/20 02:03 Intake & Output 09/23/20 09/23/20 09/24/20 06:59 18:59 06:59 Output Total 600 300 400 Balance -600 -300 -400 Output: Urine 600 300 400 Straight 400 Uretheral (Shelley) 300 Other: Voiding Method Indwelling Catheter Indwelling Catheter Urinal Diaper # Voids 2 # Bowel Movements 1 1 - Labs CBC & Chem 7: 09/20/20 07:38 09/20/20 07:38 Labs: Abnormal Lab Results - Last 24 Hours (Table) 09/20/20 09/20/20 09/23/20 Range/Units 12:04 12:04 11:37 POC Glucose (mg/dL) 107 H (75-99) mg/dL Erythropoietin 62.66 H (2.00-30.00) mIU/mL Albumin (PEP) 2.13 L (3.80-4.90) g/dL [id number] 0.49 H (0.10-0.40) g/dL 09/23/20 09/23/20 Range/Units 17:03 20:36 POC Glucose (mg/dL) 113 H 144 H (75-99) mg/dL Erythropoietin (2.00-30.00) mIU/mL Albumin (PEP) (3.80-4.90) g/dL [id number] (0.10-0.40) g/dL Microbiology - Last 24 Hours (Table) 09/17/20 13:30 Blood Culture - Final Blood No Growth after 144 hours 09/17/20 13:30 Blood Culture - Final Blood No Growth after 144 hours 09/18/20 07:26 Blood Culture - Preliminary Blood No Growth after 120 hours
[2020-09-24 09:58] LABS: Anisocytosis Slight; Basophils % (A) 0 %; Eosinophils % (A) 0 %; HGB 7.2 gm/dL (13.0-17.5); Hypochromasia Marked; Lymphocytes # (A) 0.4 k/uL (1.0-4.8); Lymphocytes % (A) 16 %; MCH 29.1 pg (25.0-35.0); MCHC 31.4 g/dL (31.0-37.0); MCV 92.7 fL (80.0-100.0); Mean Platelet Volume 7.3; Monocytes # (A) 0.2 k/uL (0-1.0); Monocytes % (A) 6 %; Neutrophils % (A) 75 %; Platelet Count 260 k/uL (150-450); Poikilocytosis Moderate; RBC 2.48 m/uL (4.30-5.90); RDW 18.8 % (11.5-15.5); WBC 2.6 k/uL (3.8-10.6)
--- NOTE | 2020-09-24 11:30 | P.PN ---
<Glenna Melton - Last Filed: 09/24/20 11:25> Subjective Progress Note Date: 09/24/20 CHIEF COMPLAINT: Large sacral Decubitus ulcer HISTORY OF PRESENT ILLNESS: Patient is status post excisional debridement of large sacral decubitus ulcer skin, subcutaneous tissues and muscle. Patient did work with physical therapy. He was able to sit at the side of the bed. Patient complaining of hip pain. Denies any nausea or vomiting. Tolerating diet. Having bowel movements. Patient will have wound VAC placed at rehab. Per nursing no significant bleeding from the sacral wound. They did report some serosanguineous drainage. He is afebrile. Tachycardia has improved. WBC 2.6 hemoglobin 7.2 PHYSICAL EXAM: VITAL SIGNS: Reviewed. GENERAL: Well-developed in no acute distress. HEENT: No sclera icterus. Extraocular movements grossly intact. Moist buccal mucosa. Head is atraumatic, normocephalic. ABDOMEN: Soft. Nondistended. Nontender. NEUROLOGIC: Alert and oriented. Cranial nerves II through XII grossly intact. ASSESSMENT: 1. Large sacral decubitus ulcer status post excisional debridement of skin, subcutaneous tissues and muscle PLAN: -Continue wound care -Continue antibiotics per infectious disease -Wound VAC will be placed at rehab facility -Patient stable from surgical standpoint for discharge Physician Probate Paralegal note has been reviewed by physician. Signing provider agrees with the documented findings, assessment, and plan of care. Objective - Vital Signs Vital signs: Vital Signs Temp 97.7 F 09/24/20 08:39 Pulse 67 09/24/20 08:39 Resp 15 09/24/20 08:39 BP 130/65 09/24/20 08:39 Pulse Ox 98 09/24/20 08:39 Intake & Output 09/23/20 09/24/20 09/24/20 18:59 06:59 18:59 Output Total 300 400 Balance -300 -400 Output: Urine 300 400 Straight 400 Uretheral (Shelley) 300 Other: Voiding Method Indwelling Catheter Urinal Diaper Diaper Incontinent # Voids 2 # Bowel Movements 1 - Labs CBC & Chem 7: 09/24/20 09:28 09/20/20 07:38 Labs: Abnormal Lab Results - Last 24 Hours (Table) 09/20/20 09/20/20 09/23/20 Range/Units 12:04 12:04 11:37 WBC (3.8-10.6) k/uL RBC (4.30-5.90) m/uL Hgb (13.0-17.5) gm/dL Hct (39.0-53.0) % RDW (11.5-15.5) % Lymphocytes # (1.0-4.8) k/uL POC Glucose (mg/dL) 107 H (75-99) mg/dL Erythropoietin 62.66 H (2.00-30.00) mIU/mL Albumin (PEP) 2.13 L (3.80-4.90) g/dL [place]-0-Kxuwdcwql 0.49 H (0.10-0.40) g/dL 09/23/20 09/23/20 09/24/20 Range/Units 17:03 20:36 09:28 WBC 2.6 L (3.8-10.6) k/uL RBC 2.48 L (4.30-5.90) m/uL Hgb 7.2 L (13.0-17.5) gm/dL Hct 23.0 L (39.0-53.0) % RDW 18.8 H (11.5-15.5) % Lymphocytes # 0.4 L (1.0-4.8) k/uL POC Glucose (mg/dL) 113 H 144 H (75-99) mg/dL Erythropoietin (2.00-30.00) mIU/mL Albumin (PEP) (3.80-4.90) g/dL Hapqs-1-Pljgmzzjk (0.10-0.40) g/dL Microbiology - Last 24 Hours (Table) 09/18/20 07:26 Blood Culture - Final Blood No Growth after 144 hours 09/17/20 13:30 Blood Culture - Final Blood No Growth after 144 hours 09/17/20 13:30 Blood Culture - Final Blood No Growth after 144 hours <Wisam Hartman - Last Filed: 09/24/20 12:34> Subjective As above. Patient doing well today. May discharge. Initiate wound VAC therapy at rehab. Objective - Vital Signs Vital signs: Vital Signs Temp 97.7 F 09/24/20 08:39 Pulse 67 09/24/20 08:39 Resp 15 09/24/20 08:39 BP 130/65 06/08/21 08:39 Pulse Ox 98 09/24/20 08:39 Intake & Output 09/23/20 09/24/20 09/24/20 18:59 06:59 18:59 Output Total 300 400 Balance -300 -400 Output: Urine 300 400 Straight 400 Uretheral (Shelley) 300 Other: Voiding Method Indwelling Catheter Urinal Diaper Diaper Incontinent # Voids 2 2 # Bowel Movements 1 2 - Labs CBC & Chem 7: 09/24/20 09:28 09/20/20 07:38 Labs: Abnormal Lab Results - Last 24 Hours (Table) 09/20/20 09/20/20 09/23/20 Range/Units 12:04 12:04 17:03 WBC (3.8-10.6) k/uL RBC (4.30-5.90) m/uL Hgb (13.0-17.5) gm/dL Hct (39.0-53.0) % RDW (11.5-15.5) % Lymphocytes # (1.0-4.8) k/uL POC Glucose (mg/dL) 113 H (75-99) mg/dL Erythropoietin 62.66 H (2.00-30.00) mIU/mL Albumin (PEP) 2.13 L (3.80-4.90) g/dL Cnppa-6-Zizutgydh 0.49 H (0.10-0.40) g/dL 09/23/20 09/24/20 09/24/20 Range/Units 20:36 09:28 11:58 WBC 2.6 L (3.8-10.6) k/uL RBC 2.48 L (4.30-5.90) m/uL Hgb 7.2 L (13.0-17.5) gm/dL Hct 23.0 L (39.0-53.0) % RDW 18.8 H (11.5-15.5) % Lymphocytes # 0.4 L (1.0-4.8) k/uL POC Glucose (mg/dL) 144 H 118 H (75-99) mg/dL Erythropoietin (2.00-30.00) mIU/mL Albumin (PEP) (3.80-4.90) g/dL Whwes-3-Naxrtpcha (0.10-0.40) g/dL Microbiology - Last 24 Hours (Table) 09/18/20 07:26 Blood Culture - Final Blood No Growth after 144 hours 09/17/20 13:30 Blood Culture - Final Blood No Growth after 144 hours 09/17/20 13:30 Blood Culture - Final Blood No Growth after 144 hours Assessment and Plan (1) Decubitus ulcer Current Visit: Yes Status: Acute Code(s): L89.90 - PRESSURE ULCER OF UNSPECIFIED SITE, UNSPECIFIED STAGE SNOMED Code(s): 965256673
[2020-09-24 11:59] LABS: Glucose,Whole Blood 118 mg/dL (75-99)
--- NOTE | 2020-09-24 12:19 | IR ---
PICC LINE PLACEMENT: HISTORY: Infection requiring long-term antibiotic therapy PROCEDURE: Ultrasound and fluoroscopic guidance of PICC line placement. COMPLICATIONS: None ANESTHESIA: 1. 1% Lidocaine locally. FINDINGS/TECHNIQUE: The procedure was explained to the patient. The risks, complications, benefits and alternatives were discussed and any questions were answered. Informed consent was obtained. The patient was placed supine on the fluoroscopic table and prepped and draped in the usual sterile fash ion. Utilizing a 21 gauge needle and sonographic and fluoroscopic guidance, access in the left basi lic vein was achieved and there is placement of a 0.018 guidewire. The vein is patent. A 4-F sheath was placed over the guidewire. The guidewire and dilator were removed and a 4-F. PICC line was plac ed through the sheath with the tip at the level of the SVC. The sheath was removed, the catheter was flushed and sutured into position. The patient was stable throughout the procedure and remained sta ble upon discharge from the Department of Radiology. The vein puncture was patent under ultrasound. A lynne scale image was obtained to document patency of the vein punctured. All elements of the maximal barrier technique were utilized. FLUOROSCOPY TIME: 0.1 minutes of fluoroscopy IMPRESSION: Successful PICC line placement under ultrasound and fluoroscopic guidance.
[2020-09-24] MEDS: POTASSIUM CHLORIDE ER 20 MEQ TAB.ER PO SCH (14:48)
[2020-09-24 15:01] VITALS: BP 102/65; PULSE 118; RESP 18; TEMP 98.8
--- NOTE | 2020-09-24 17:29 | P.PN ---
Subjective Progress Note Date: 09/24/20 Principal diagnosis: anemia In f/u pt doing ok, he is going to [place] today, no other c/o Objective - Vital Signs Vital signs: Vital Signs Temp 98.8 F 09/24/20 15:01 Pulse 118 H 09/24/20 15:01 Resp 18 09/24/20 15:01 BP 102/65 09/24/20 15:01 Pulse Ox 97 09/24/20 15:01 Intake & Output 09/23/20 09/24/20 09/24/20 18:59 06:59 18:59 Output Total 300 400 Balance -300 -400 Output: Urine 300 400 Straight 400 Uretheral (Shelley) 300 Other: Voiding Method Indwelling Catheter Urinal Diaper Diaper Incontinent # Voids 2 1 # Bowel Movements 1 1 - Constitutional General appearance: Present: average body habitus, cooperative, no acute distress - EENT Eyes: Present: anicteric sclerae, EOMI ENT: Present: hearing grossly normal - Respiratory Respiratory: bilateral: CTA - Cardiovascular Rhythm: regular Heart sounds: normal: S1, S2 Abnormal Heart Sounds: Absent: systolic murmur, diastolic murmur, rub, S3 Gallop, S4 Gallop, click, other - Peripheral edema leg Peripheral Edema: bilateral: Trace - Gastrointestinal General gastrointestinal: Present: normal bowel sounds, soft - Neurologic Neurologic: Present: CNII-XII intact - Musculoskeletal Musculoskeletal: Present: generalized weakness - Psychiatric Psychiatric: Present: A&O x's 3 - Labs CBC & Chem 7: 09/24/20 09:28 09/20/20 07:38 Labs: Abnormal Lab Results - Last 24 Hours (Table) 09/23/20 09/24/20 09/24/20 Range/Units 20:36 09:28 11:58 WBC 2.6 L (3.8-10.6) k/uL RBC 2.48 L (4.30-5.90) m/uL Hgb 7.2 L (13.0-17.5) gm/dL Hct 23.0 L (39.0-53.0) % RDW 18.8 H (11.5-15.5) % Lymphocytes # 0.4 L (1.0-4.8) k/uL POC Glucose (mg/dL) 144 H 118 H (75-99) mg/dL Microbiology - Last 24 Hours (Table) 09/18/20 07:26 Blood Culture - Final Blood No Growth after 144 hours 09/17/20 13:30 Blood Culture - Final Blood No Growth after 144 hours 09/17/20 13:30 Blood Culture - Final Blood No Growth after 144 hours Assessment and Plan (1) Chronic anemia Narrative/Plan: Anemia felt to be r/t inflammation as saturation is normal and ferritin is elevated. K/L are elevated but ratio is normal. Epo elevated in response to anemia. Recommend treatment of underlying infection, CBC monitoring, transfuse for Hgb < 7. Status: Chronic Priority: Medium Code(s): D64.9 - ANEMIA, UNSPECIFIED SNOMED Code(s): 190652809
--- NOTE | 2020-09-27 08:06 | CDI ---
Documentation Clarification Form Date: 09/27/20 From: Sheree Donaldson Admit Date: 09/17/2020 04:14:00 PM Patient Name: Burt Berkowitz Visit Number: [id number] Discharge Date: 09/24/2020 03:49:00 PM ATTENTION: The Clinical Documentation Specialists (CDI) and [facility] Coding Staff appreciate your assistance in clarifying documentation. Please respond to the clarification below the line at the bottom and electronically sign. The CDI & [facility] Coding staff will review the response and follow-up if needed. Please note: Queries are made part of the Legal Health Record. If you have any questions, please contact the author of this message via ITS. Dr. German Astudillo, Atrial Fibrillation is documented under the past medical history in ED note, H&P & consults. Additional clarification regarding the type of atrial fibrillation is requested. History/Risk Factors: Hypertensive heart disease without heart failure, ischemic cardiomyopathy, CAD, s/p [place] Clinical Indicators: EKG/telemetry: 6/2-Sinus tachycardia with 1st degree AV block. Vent rate-105, NE interval-218, QRS-90, QT/QTc-402/531 Treatment: ASA, Plavix, Please clarify the type of atrial fibrillation, if known: [ ] Chronic [ ] Permanent [ ] Paroxysmal [ ] Persistent [ ] Other, please specify [ ] Unable to determine Paroxysmal atrial fibrillation [facility]
--- NOTE | 2020-09-27 08:15 | CDI ---
Documentation Clarification Form Date: 09/27/20 From: Sheree Donaldson Admit Date: 09/17/2020 04:14:00 PM Patient Name: Burt Berkowitz Visit Number: [id number] Discharge Date: 09/24/2020 03:49:00 PM ATTENTION: The Clinical Documentation Specialists (CDI) and [facility] Coding Staff appreciate your assistance in clarifying documentation. Please respond to the clarification below the line at the bottom and electronically sign. The CDI & [facility] Coding staff will review the response and follow-up if needed. Please note: Queries are made part of the Legal Health Record. If you have any questions, please contact the author of this message via ITS. Dr. German Astudillo, Conflicting documentation has been found in the medical record. As attending physician, please provide clarification. Dr Strickland documents in his 09/23 progress note " Patient with infected sacral pressure ulcer stage IV with underlying osteomyelitis, status post debridement." No further documentation of osteomyelitis by you. History/Risk Factors: DM, HTN without heart disease, ischemic cardiomyopathy, CAD, s/p [place] Clinical Indicators: Stage IV sacral pressure ulcer. Cellulitis of sacral area. Treatment: Excisional debridement large sacral decubitus ulcer skin subcutaneous tissues and muscle. PICC line placed for IV Daptomycin Please clarify which diagnosis is most appropriate: [ ] Acute osteomyelitis of sacral area [ ] Chronic osteomyelitis of sacral area [ ] Osteomyelitis ruled out [ ] Other (please specify) [ ] Unable to determine Osteomyelitis Ruled out MTDD
--- NOTE | 2020-09-27 08:16 | CDI ---
Documentation Clarification Form Date: 09/27/2020 08:05:00 AM From: Sheree Donaldson Admit Date: 09/17/2020 04:14:00 PM Patient Name: Burt Berkowitz Visit Number: [id number] Discharge Date: 09/24/2020 03:49:00 PM ATTENTION: The Clinical Documentation Specialists (CDI) and [facility] Coding Staff appreciate your assistance in clarifying documentation. Please respond to the clarification below the line at the bottom and electronically sign. The CDI & [facility] Coding staff will review the response and follow-up if needed. Please note: Queries are made part of the Legal Health Record. If you have any questions, please contact the author of this message via ITS. Dr. German Astudillo, Atrial Fibrillation is documented under the past medical history in ED note, H&P & consults. Additional clarification regarding the type of atrial fibrillation is requested. History/Risk Factors: Hypertensive heart disease without heart failure, ischemic cardiomyopathy, CAD, s/p [place] Clinical Indicators: EKG/telemetry: 6/2-Sinus tachycardia with 1st degree AV block. Vent rate-105, OR interval-218, QRS-90, QT/QTc-402/531 Treatment: ASA, Plavix, Please clarify the type of atrial fibrillation, if known: [ ] Chronic [ ] Permanent [ ] Paroxysmal [ ] Persistent [ ] Other, please specify [ ] Unable to determine Paroxysmal atrial fibrillation MTDD
--- NOTE | 2020-09-27 08:24 | CDI ---
Documentation Clarification Form Date: 09/27/20 From: Sheree Donaldson Admit Date: 09/17/2020 04:14:00 PM Patient Name: Burt Berkowitz Visit Number: [id number] Discharge Date: 09/24/2020 03:49:00 PM ATTENTION: The Clinical Documentation Specialists (CDI) and [facility] Coding Staff appreciate your assistance in clarifying documentation. Please respond to the clarification below the line at the bottom and electronically sign. The CDI & [facility] Coding staff will review the response and follow-up if needed. Please note: Queries are made part of the Legal Health Record. If you have any questions, please contact the author of this message via ITS. Dr. German Astudillo, Conflicting documentation has been found in the medical record. As attending physician, please provide clarification. Per Dr Hendricks consult patient with septic shock. Per your documentation patient had a previous admission in which he suffered from lactic acidosis, thrombocytopenia secondary to sepsis, acute kidney injury. History/Risk Factors: Sacral IV pressure ulcer with cellulitis, hypertensive heart disease without heart failure, ischemic cardiomyopathy, CAD, s/p [place] Clinical Indicators: WBC-2.9, Neutorphils-74, lactic acid-1.2, T-99, P-115, R- 18, BP-115/65. O2 sat-97 Treatment: IV Daptomycin Please clarify which diagnosis is most appropriate: [ ] Sepsis ruled in w septic shock, (please specify organism) and if POA [ ] Sepsis ruled out [ ] Other (please specify) [ ] Unable to determine Sepsis Ruled in with Enterobacter FaeciumVRE and Citrobacter Freundi MTDD
== END 2020-09-24 15:49 | DRG 853 ==
LOC: EC 11:27 → 4SSUR 16:14
PROVIDERS: ADMIT Internal Medicine; ATTEND Internal Medicine
DX: A41.81 Sepsis due to Enterococcus (principal); L89.154 Pressure ulcer of sacral region, stage 4; L03.317 Cellulitis of buttock; Z16.21 Resistance to vancomycin; E11.649 Type 2 diabetes mellitus with hypoglycemia without coma; L89.610 Pressure ulcer of right heel, unstageable; D63.8 Anemia in other chronic diseases classified elsewhere; E11.42 Type 2 diabetes mellitus with diabetic polyneuropathy; E11.51 Type 2 diabetes mellitus with diabetic peripheral angiopathy without gangrene; I11.9 Hypertensive heart disease without heart failure; I48.0 Paroxysmal atrial fibrillation; Z79.4 Long term (current) use of insulin; Z20.822 Contact with and (suspected) exposure to COVID-19; B95.2 Enterococcus as the cause of diseases classified elsewhere; B96.89 Other specified bacterial agents as the cause of diseases classified elsewhere; I25.82 Chronic total occlusion of coronary artery; I25.5 Ischemic cardiomyopathy; I25.10 Atherosclerotic heart disease of native coronary artery without angina pectoris; M47.816 Spondylosis without myelopathy or radiculopathy, lumbar region; M47.812 Spondylosis without myelopathy or radiculopathy, cervical region; E78.5 Hyperlipidemia, unspecified; K21.9 Gastro-esophageal reflux disease without esophagitis; N42.9 Disorder of prostate, unspecified; K59.00 Constipation, unspecified; I25.2 Old myocardial infarction; D50.9 Iron deficiency anemia, unspecified; D72.819 Decreased white blood cell count, unspecified; F32.9 Major depressive disorder, single episode, unspecified; F41.9 Anxiety disorder, unspecified; M19.90 Unspecified osteoarthritis, unspecified site; E66.9 Obesity, unspecified; Z68.31 Body mass index [BMI] 31.0-31.9, adult; F10.11 Alcohol abuse, in remission; N52.9 Male erectile dysfunction, unspecified; Z79.82 Long term (current) use of aspirin; Z79.02 Long term (current) use of antithrombotics/antiplatelets; Z79.899 Other long term (current) drug therapy; Z86.19 Personal history of other infectious and parasitic diseases; Z95.5 Presence of coronary angioplasty implant and graft; Z85.46 Personal history of malignant neoplasm of prostate; Z92.3 Personal history of irradiation; Z90.89 Acquired absence of other organs; Z98.1 Arthrodesis status; Z96.652 Presence of left artificial knee joint; Z96.641 Presence of right artificial hip joint; Z98.42 Cataract extraction status, left eye; Z98.41 Cataract extraction status, right eye; Z87.19 Personal history of other diseases of the digestive system; Z87.891 Personal history of nicotine dependence; Z87.81 Personal history of (healed) traumatic fracture; Z98.890 Other specified postprocedural states; Z71.3 Dietary counseling and surveillance; Z82.49 Family history of ischemic heart disease and other diseases of the circulatory system; Z81.2 Family history of tobacco abuse and dependence; Z82.69 Family history of other diseases of the musculoskeletal system and connective tissue; Z80.49 Family history of malignant neoplasm of other genital organs; Z80.8 Family history of malignant neoplasm of other organs or systems
CPT/HCPCS: 36415; 36573; 72193; 80053; 81050; 82607; 82668; 82728; 82746; 82784; 83010; 83540; 83550; 83605; 83883; 83921; 84156; 84165; 85025; 85027; 85045; 85610; 85730; 86334; 87040; 87070; 87075; 87077; 87186; 87205; 87635; 88304; 93005; 94640; 96374; 99285

== ENCOUNTER → 2021-01-31 | Outpatient (CLI) | payer MEDICARE, BC ==
[2021-01-31 11:58] LABS: HCT 39.2 % (39.0-53.0); HGB 12.7 gm/dL (13.0-17.5); MCH 29.2 pg (25.0-35.0); MCHC 32.3 g/dL (31.0-37.0); MCV 90.2 fL (80.0-100.0); Mean Platelet Volume 7.1; Platelet Count 353 k/uL (150-450); RBC 4.35 m/uL (4.30-5.90)
[2021-01-31 12:12] LABS: ALT 12 U/L (4-49); AST 24 U/L (17-59); African American GFR (CKD) >90 (>60 ml/min/1.73 sqM); Alkaline Phosphatase 76 U/L (38-126); Anion Gap 11 mmol/L; Blood Urea Nitrogen 20 mg/dL (9-20); Calcium 9.6 mg/dL (8.4-10.2); Carbon Dioxide 27 mmol/L (22-30); Chloride 99 mmol/L (98-107); Glucose 141 mg/dL (74-99); Non-African American GFR(CKD) 80 (>60 ml/min/1.73 sqM); Potassium 4.6 mmol/L (3.5-5.1); Sodium 137 mmol/L (137-145); Total Bilirubin 0.8 mg/dL (0.2-1.3); Total Protein 7.2 g/dL (6.3-8.2)
[2021-01-31 12:40] LABS: INR 0.9 (<1.2); Partial Thromboplastin Time 23.1 sec (22.0-30.0)
== END | disposition home or self-care (01) ==
LOC: LABPAT 10:50
PROVIDERS: ATTEND Orthopaedic Surgery
DX: Z01.812 Encounter for preprocedural laboratory examination (principal)
CPT/HCPCS: 80053; 85027; 85610; 85730; 87070; 93005

== ENCOUNTER 2021-02-23 08:25 | Inpatient (IN) | payer MEDICARE, BC ==
[2021-02-23] MEDS ORDERED: KETOROLAC 15 MG/ML 1 ML VIAL IVP STA (09:18)
[2021-02-23] MEDS ORDERED: HYDROmorphone 0.5 MG/0.5 ML SYRINGE IVP STA (09:19)
--- NOTE | 2021-02-23 09:22 | ED ---
General Adult HPI - General Chief complaint: Extremity Problem,Nontraumatic Stated complaint: Knee pain Time Seen by Provider: 02/23/21 08:45 Source: patient, RN notes reviewed, old records reviewed Mode of arrival: wheelchair Limitations: physical limitation - History of Present Illness Initial comments: This is a 75-year-old male who presents emergency Department complaining of left knee pain. Patient states he had a knee replacement and has since been infected and the with exertion would like to take it out and clean the area out and put new joint in. Patient states that not able to do it because Dr. Astudillo and both want the decubitus ulcer on his back to heal before they do the surgery. Patient states that he has had his knee drained multiple times but lately the pain is been unbearable and he decided to come in to the emergency department because he can't stand the pain anymore. Patient states the size of the is pretty much the same as then. Patient states she was on antibiotics for about a month and a half but is no longer on antibiotics. Patient denies any difficulty breathing shortness of breath per patient denies any abdominal pain. Patient denies any fever chills. - Related Data Home Medications Medication Instructions Recorded Confirmed Aspirin [Franklin Aspirin EC] 81 mg PO DAILY@0800 08/05/20 09/17/20 0.9 % Sodium Chloride [Sodium 1 applic IV TID@0600,1400,2200 09/01/20 09/17/20 Chloride Flush] Acetaminophen Tab [Tylenol] 1,000 mg PO Q6HR PRN 09/01/20 09/17/20 Atorvastatin [Lipitor] 80 mg PO HS@209909/01/20 09/17/20 Clopidogrel [Plavix] 75 mg PO DAILY@0800 09/01/20 09/17/20 INSULIN ASPART (NovoLOG) [NovoLOG See Protocol SQ ACHS 09/01/20 09/17/20 (formulary)] Insulin Detemir (Levemir) [Levemir] 22 unit SQ HS@209909/01/20 09/17/20 Lactose-Reduced Food [Ensure Plus] 1 can PO BID@0800,1700 09/01/20 09/17/20 Lidocaine Cream 5% 1 applic TOPICAL DAILY PRN 09/01/20 09/17/20 Magnesium Hydroxide [Milk of 7,200 mg PO DAILY PRN 09/01/20 09/17/20 Magnesia Concentrate] Mirtazapine 7.5 mg PO HS@2100 09/01/20 09/17/20 Pantoprazole [Protonix] 40 mg PO BID@0800,1700 09/01/20 09/17/20 Potassium Chloride ER [K-Dur 20] 20 meq PO DAILY@1700 09/01/20 09/17/20 bisacodyL [Dulcolax] 10 mg RECTAL DAILY PRN 09/01/20 09/17/20 Ivan Packet 1 packet PO BID@1200,2000 09/17/20 09/17/20 Metoprolol Tartrate [Lopressor] 50 mg PO BID@0800,1700 09/17/20 09/17/20 Nystatin 100,000Unit/gm Cream 1 applic TOPICAL QID 09/17/20 09/17/20 [Mycostatin Cream] Previous Rx's Medication Instructions Recorded Ipratropium-Albuterol Nebulize 3 ml INHALATION RT-QID PRN ml 08/16/20 [Duoneb 0.5 mg-3 mg/3 ml Soln] methocarbamoL [Robaxin] 750 mg PO TID PRN tab 08/16/20 Ciprofloxacin HCl [Cipro] 500 mg PO BID 42 Days #2 tab 09/23/20 DAPTOmycin [Daptomycin] 700 mg IVPB DAILY #42 dose 09/23/20 HYDROcodone/APAP 10-325MG [[place] 1 each PO QID #12 tab 09/23/20 10-325] Multivitamins, Thera [Multivitamin 1 each PO DAILY@1200 tab 09/23/20 (formulary)] metroNIDAZOLE [Flagyl] 500 mg PO TID #126 tab 09/23/20 Allergies Allergy/AdvReac Type Severity Reaction Status Date / Time No Known Allergies Allergy Verified 02/23/21 08:46 Review of Systems ROS Statement: Those systems with pertinent positive or pertinent negative responses have been documented in the HPI. ROS Other: All systems not noted in ROS Statement are negative. Past Medical History Past Medical History: Atrial Fibrillation, Coronary Artery Disease (CAD), Cancer, Chest Pain / Angina, Diabetes Mellitus, GERD/Reflux, Hyperlipidemia, Hypertension, Osteoarthritis (OA), Prostate Disorder Additional Past Medical History / Comment(s): 5 Herniated discs in neck causing headaches & numbness in arm and right lower back and pain and right leg pain. Hx 4 fx ribs, current Prostate Cancer- last radiation tx Mar 25 had total of 44 tx. occ constipation, Last Myocardial Infarction Date:: UNKOWN History of Any Multi-Drug Resistant Organisms: VRE Date of last positivie culture/infection: 09/18/20 MDRO Source:: Wound Past Surgical History: Adenoidectomy, Heart Catheterization, Heart Catheterization With Stent, Joint Replacement, Orthopedic Surgery, Tonsillectomy Additional Past Surgical History / Comment(s): PROSTATE BX., LT. KNEE ARTHROSCOPY X 2, CERVICAL FUSIONS, COLONOSCOPY, ÁNGEL. CATARTACTS.Pain Procedures , rt radio frequency procedures. , total 3 heart stents, hemorrhoidectomy,heart cath August 2017-lt knee replacement. Stent replacement Past Anesthesia/Blood Transfusion Reactions: No Reported Reaction Additional Past Anesthesia/Blood Transfusion Reaction / Comment(s): doesn't like enclosed tight spaces Date of Last Stent Placement:: 04/24/17 Past Psychological History: No Psychological Hx Reported Smoking Status: Former smoker Past Alcohol Use History: None Reported Past Drug Use History: None Reported - Past Family History Father Additional Family Medical History / Comment(s): Father at age 49 from coronary artery disease. Brother(s) Additional Family Medical History / Comment(s): Patient has one brother with history of smoking and no other major medical problems. Patient does not have any sisters. Daughter(s) Additional Family Medical History / Comment(s): He has one daughter alive in [place] with no major medical problems. Patient has one daughter with history of muscular dystrophy and of pneumonia. Son(s) Family Medical History: No Reported History Additional Family Medical History / Comment(s): Patient has one son with no major medical problems. Mother Family Medical History: Cancer Additional Family Medical History / Comment(s): Mother at age 81 from uterine cancer with metastatic disease. General Exam - General Exam Comments Initial Comments: GENERAL: Patient is well-developed and well-nourished. Patient is nontoxic and well- hydrated and is in mild distress. ENT: Neck is soft and supple. No significant lymphadenopathy is noted. Oropharynx is clear. Moist mucous membranes. Neck has full range of motion without eliciting any pain. EYES: The sclera were anicteric and conjunctiva were pink and moist. Extraocular movements were intact and pupils were equal round and reactive to light. Eyelids were unremarkable. PULMONARY: Unlabored respirations. Good breath sounds bilaterally. No audible rales rhonchi or wheezing was noted. CARDIOVASCULAR: There is a regular rate and rhythm without any murmurs gallops or rubs. ABDOMEN: Soft and nontender with normal bowel sounds. SKIN: Skin is clear with no lesions or rashes and otherwise unremarkable. NEUROLOGIC: Patient is alert and oriented x3. Cranial nerves II through XII are grossly intact. Motor and sensory are also intact. Normal speech, volume and content. Symmetrical smile. MUSCULOSKELETAL: Patient has a large left knee effusion and any movement increases the pain significantly. LYMPHATICS: No significant lymphadenopathy is noted PSYCHIATRIC: Normal psychiatric evaluation. Limitations: physical limitation Course Vital Signs 02/23/21 08:42 Temperature 97.2 F L Pulse Rate 121 H Respiratory 18 Rate Blood Pressure 113/75 O2 Sat by Pulse 97 Oximetry Medical Decision Making - Medical Decision Making X-ray shows an effusion. I spoke with Dr. Astudillo he agreed to admit the patient admitted the patient started the patient vancomycin. He wanted me to contact Dr. Gomez about the effusion I spoke with Dr. Gomez he indicated that he will probably allow Dr. Choi tomorrow to do the tap on the knee. I consult the Dr. Gomez and Dr. Pemberton. - Lab Data Result diagrams: 02/23/21 09:48 02/23/21 09:48 Lab Results 02/23/21 02/23/21 02/23/21 Range/Units 09:48 09:48 09:48 WBC 5.0 (3.8-10.6) k/uL RBC 3.97 L (4.30-5.90) m/uL Hgb 11.4 L (13.0-17.5) gm/dL Hct 35.6 L (39.0-53.0) % MCV 89.7 (80.0-100.0) fL MCH 28.7 (25.0-35.0) pg MCHC 31.9 (31.0-37.0) g/dL RDW 15.1 (11.5-15.5) % Plt Count 255 (150-450) k/uL MPV 7.3 Neutrophils % 76 % Lymphocytes % 15 % Monocytes % 7 % Eosinophils % 0 % Basophils % 0 % Neutrophils # 3.8 (1.3-7.7) k/uL Lymphocytes # 0.7 L (1.0-4.8) k/uL Monocytes # 0.3 (0-1.0) k/uL Eosinophils # 0.0 (0-0.7) k/uL Basophils # 0.0 (0-0.2) k/uL Sodium 135 L (137-145) mmol/L Potassium 4.4 (3.5-5.1) mmol/L Chloride 101 (98-107) mmol/L Carbon Dioxide 25 (22-30) mmol/L Anion Gap 9 mmol/L BUN 24 H (9-20) mg/dL Creatinine 0.76 (0.66-1.25) mg/dL Est GFR (CKD-EPI)AfAm >90 (>60 ml/min/1.73 sqM) Est GFR (CKD-EPI)NonAf 89 (>60 ml/min/1.73 sqM) Glucose 147 H (74-99) mg/dL Plasma Lactic Acid Rob 1.0 (0.7-2.0) mmol/L Calcium 9.1 (8.4-10.2) mg/dL Total Bilirubin 0.6 (0.2-1.3) mg/dL AST 19 (17-59) U/L ALT 10 (4-49) U/L Alkaline Phosphatase 62 (38-126) U/L C-Reactive Protein 6.5 H (<1.0) mg/dL Total Protein 6.6 (6.3-8.2) g/dL Albumin 3.4 L (3.5-5.0) g/dL Disposition Clinical Impression: Septic joint of left knee joint Disposition: ADMITTED IP TO THIS HOSP Referrals: German Astudillo MD [Primary Care Provider] - 1-2 days Time of Disposition: 10:26
[2021-02-23 09:57] LABS: Basophils % (A) 0 %; Eosinophils % (A) 0 %; HCT 35.6 % (39.0-53.0); HGB 11.4 gm/dL (13.0-17.5); Lymphocytes # (A) 0.7 k/uL (1.0-4.8); Lymphocytes % (A) 15 %; MCH 28.7 pg (25.0-35.0); MCHC 31.9 g/dL (31.0-37.0); MCV 89.7 fL (80.0-100.0); Mean Platelet Volume 7.3; Monocytes # (A) 0.3 k/uL (0-1.0); Monocytes % (A) 7 %; Neutrophils # (A) 3.8 k/uL (1.3-7.7); Neutrophils % (A) 76 %; Platelet Count 255 k/uL (150-450); RBC 3.97 m/uL (4.30-5.90); RDW 15.1 % (11.5-15.5)
[2021-02-23] MEDS ORDERED: VANCOMYCIN IV PER PHARMACY 1 EACH MISC MISCELLANE PRN (10:08)
[2021-02-23] MEDS ORDERED: VANCOMYCIN 1,500 MG in SODIUM CHLORIDE 0.9% 250 ML IVPB STA (10:08)
[2021-02-23 10:13] LABS: ALT 10 U/L (4-49); AST 19 U/L (17-59); African American GFR (CKD) >90 (>60 ml/min/1.73 sqM); Albumin 3.4 g/dL (3.5-5.0); Alkaline Phosphatase 62 U/L (38-126); Anion Gap 9 mmol/L; Blood Urea Nitrogen 24 mg/dL (9-20); C Reactive Protein 6.5 mg/dL (<1.0); Calcium 9.1 mg/dL (8.4-10.2); Carbon Dioxide 25 mmol/L (22-30); Chloride 101 mmol/L (98-107); Glucose 147 mg/dL (74-99); Non-African American GFR(CKD) 89 (>60 ml/min/1.73 sqM); Potassium 4.4 mmol/L (3.5-5.1); Sodium 135 mmol/L (137-145); Total Bilirubin 0.6 mg/dL (0.2-1.3); Total Protein 6.6 g/dL (6.3-8.2)
--- NOTE | 2021-02-23 10:15 | XR ---
Limited left knee. HISTORY: Swelling. COMPARISON: 03/22/2018. TECHNIQUE: 2 views of the left knee were obtained. There is been total left knee arthroplasty. There is no fracture or dislocation. There is at least a moderate joint effusion. There are vascular calcifications the thigh.. IMPRESSION: 1. Total left knee arthroplasty without fracture or dislocation. 2. Joint effusion
--- NOTE | 2021-02-23 11:04 | P.HPIM ---
History of Present Illness H&P Date: 02/23/21 Chief Complaint: Infected left knee prosthesis with MSSA. HISTORY OF PRESENT ILLNESS: This is a 75-year-old male patient of mine with previous medical history significant for coronary artery disease status post percutaneous coronary intervention and stent placement last one was in 12/13/2019 in the mid RCA at that time he was found to have a totally occluded obtuse marginal one of the LCx, with collaterals from the PDA, hypertension and hypertensive cardiovascular disease, hyperlipidemia, diabetes mellitus type 2, diabetic polyneuropathy, 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 as well as radio frequency ablation, prostate cancer status post radiation therapy, patient took himself off the Plavix due to significant bruising and bleeding 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 Patient then had a dmission August 05 through August 16 at which time he was treated for septic arthritis of the left knee with persistent MSSA bacteremia status post I&D of the left total knee. He also suffered from lactic acidosis, thrombocytopenia secondary to sepsis, acute kidney injury. Patient was stabilized and discharged to [facility] for subacute rehab. Patient was continued on for a 6 week course, Unfortunately, patient developed C. difficile colitis treated with oral vancomycin. Patient has done very little physical therapy at that time and stayed in bed most the time, developed decubitus ulcer with worsening to the coccyx area, has been under the care of Dr. Cedillo for quite sometimes and his decubitus ulcer is getting a lot closer to heal, patient was seen in my office a few weeks back and he was seen earlier by Dr. Choi were recommended for the patient to go for removal of the hardware and placement of antibiotic spacer because of arthrocentesis that was done in 01/22/2021 which showed methicillin sensitive septic coccus aureus that is sensitive to penicillin and oxacillin and the patient was seen in the office for preoperative medical years however after discussing the matter with ID was recommended to hold off any surgical intervention until the decubitus ulcer healed completely patient presented to the emergency department today with increased swelling and pain in the left knee and patient decided to go for surgical intervention at this point in time because his could not take the pain anymore. Patient will be admitted to the hospital will obtain blood culture, we'll ask orthopedic surgery for consultation for hardware removal and placement of antibiotic spacer, I will start the patient on IV antibiotic in the form of nafcillin for gram IV piggyback every 4 hours, obtain ID consultation, cardiology consultation, as well as orthopedic consultation we will organize his treatment plan and the patient will likely will require to go back to [facility] for physical therapy and rehabilitation REVIEW OF SYSTEMS: Constitutional: negative for fever, or chills, no night sweats, fatigue , positive for weight loss. HEENT: No headache. No blurred vision or double vision, no loss of vision. No loss of Hearing, no ringing in the ears, no dizziness. No nasal drainage or congestion. No epistaxis. No sore throat. Respiratory: No shortness of breath, no cough, no sputum production. No wheezing. Reports dyspnea with activity. Cardiovascular: No chest pain, no lower extremity edema. No palpitations. No paroxysmal nocturnal dyspnea. No orthopnea. No lightheadedness or dizziness. No syncopal episodes. Gastrointestinal: Reports no abdominal pain. No nausea, vomiting. No diarrhea. No constipation. No bloody or tarry stools reports loss of appetite. Genitourinary: No dysuria, increased frequency, urgency. No urinary retention. Musculoskeletal: Positive for myalgias. positive for muscle weakness, Positive for gait dysfunction, no frequent falls, positive for left knee pain, locking,and swelling positive for low back pain . Integumentary: No wounds, no lesions. No rash or pruritus. brpositive for bruising. No change in hair or nails. Neurologic: No aphasia. No facial droop. No change in mentation. No head injury. No headache. No paralysis. No paresthesia. Psychiatric: No depression. No anxiety. No mood swings. Endocrine: No abnormal blood sugars. No weight change. PAST MEDICAL HISTORY: 1. CAD post-PCI of the RCA. 2. Hypertension and hypertensive cardiovascular disease. 3. Hyperlipidemia. 4. Diabetes mellitus type 2 5. Diabetic polyneuropathy. 6. PAD. 7. Prostate cancer. 8. Erectile dysfunction. 9. Spondylosis of the lumbar spine. 10. Osteoarthritis. 11. Spondylosis of the cervical spine. 12. Constipation. 13. Septic arthritis left knee and MSSA bacteremia. 14. C. difficile colitis. PAST SURGICAL HISTORY: Left knee arthroscopic surgery x2. Left total knee arthroplasty. Right total hip replacement with revision due to infection Prostate biopsy. Bilateral cataract surgery. Left heart catheterization in August 2017 with a stent placement of the RCA. Left heart catheterization 07/28/2020 with attempted PCI of the RCA. Left heart catheterization 07/30/2020 with 2 stents placement of the RCA Adenoidectomy with tonsillectomy. Colonoscopy. Epidural injection of the lumbar spine with radiofrequency ablation. SOCIAL HISTORY: Patient is a smoker a pack every day smoked for many years and quit many years ago, he denies any alcohol ingestion, patient used to work for the [employer]. FAMILY HISTORY: Father at age of 49 from myocardial infarction, mother at age of 81 from uterine cancer with metastatic disease, patient has one brother with chronic tobacco use and dependence, patient has no sisters, patient has one son no major medical problems, he had 2 daughters one of them from dishing muscular dystrophy the other one is alive and lives in [place]. PHYSICAL EXAMINATION: General: This is 75-year-old male who appears to be in no distress. HEENT: Head is atraumatic, normocephalic, pupils were equal round reactive to light and recommendation, extraocular muscle movement were intact, sclera nonicteric, conjunctivae were pale, mucous membranes of the mouth are somewhat dry. Neck: Supple, no JVP, normal carotid upstroke bilaterally, no lymphadenopathy. Chest: Decreased breath sounds at the bases, few rhonchi, no extremity wheezes, no chest wall tenderness, no intercostal retractions. Heart: First heart sound is normal, second heart sound is normal there is systolic ejection murmur 2/6 left sternal border. Abdomen: Soft, nontender, nondistended, positive bowel sounds, no hepatosplenomegaly Extremities: There is no edema no calf tenderness DP + 1 bilaterally, left knee with increased swelling and significant tenderness with decreased range of motion. Skin: There is a crescent shaped stage 3 decubitus ulcer in the coccyx area with clean granulation tissue at the base, we'll continue currently with current wou nd dressing as per infectious disease. Neurologic examination: Patient is awake alert and oriented X3, cranial nerves II-12 appear grossly intact, muscle power were 5 out of 5 in upper extremities and 4 out of 5 in the right lower extremity and 2 out of 5 in the left lower extremity due to pain. ASSESSMENT AND PLAN: 1. MSSA left knee joint infection . Consult orthopedic surgery and plan for removal of the hardware and antibiotic spacer, start the patient on IV antibi otic in the form of nafcillin for gram IV piggyback every 4 hours, blood cultures will be obtained, we'll try to get the culture from the fluid in the joints as well, keep off the floor, rotated the patient every 2 hours , so the patient on Glucerna 3 times every day, ID consultation, along with orthopedic surgery consultation will obtain cardiac consultation for preoperative medical clearance. 2. stage III crescent shaped decubitus ulcer in the coccyx area. Continue with current dressing as per ID, turn the patient every 2 hours, keep off his back at all the time along with adding Glucerna TID. 3. History of recent septic arthritis of the left knee and MSSA bacteremia s/p debridement of the left knee i the past and now will need definitive treatment with removal of the hardware and placement of Antibiotic spacer. 4. Recent left heart catheterization with PCI of the RCA on 07/30/2020 Continue patient on aspirin 81 g once every day, discontinue Plavix, continue metoprolol 50 mg orally twice every day, continue atorvastatin 80 mg orally once every day. 5. Hypertension and hypertensive cardiovascular disease. Continue metoprolol 50 mg orally twice every day. 6. Hyperlipidemia. Continue patient on atorvastatin 80 mg orally once every day. 7. Diabetes mellitus type 2. Start the patient on Farxiga 5 mg orally daily along with SSI and Janumet 100/1000 g orally once every day, monitor glucose level before each meal and at bedtime. 8. History of prostate cance status post rotation. Stable at this time. 9. 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 Continue current pain management. 10. DVT prophylaxis. Lovenox 40 mg subcutaneously every 24 hours. 11. GI prophylaxis. Protonix 40 mg orally twice daily. 12. Admit to inpatient. Estimate a length of stay 2 midnights. 13. Patient is full code. 14. 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 Past Medical History Past Medical History: Atrial Fibrillation, Coronary Artery Disease (CAD), Ca ncer, Chest Pain / Angina, Diabetes Mellitus, GERD/Reflux, Hyperlipidemia, Hypertension, Osteoarthritis (OA), Prostate Disorder Additional Past Medical History / Comment(s): 5 Herniated discs in neck causing headaches & numbness in arm and right lower back and pain and right leg pain. Hx 4 fx ribs, current Prostate Cancer- last radiation tx Mar 25 had total of 44 tx. occ constipation, Last Myocardial Infarction Date:: UNKOWN History of Any Multi-Drug Resistant Organisms: VRE Date of last positivie culture/infection: 09/18/20 MDRO Source:: Wound Past Surgical History: Adenoidectomy, Heart Catheterization, Heart Catheterization With Stent, Joint Replacement, Orthopedic Surgery, Tonsillectomy Additional Past Surgical History / Comment(s): PROSTATE BX., LT. KNEE ARTHROSCOPY X 2, CERVICAL FUSIONS, COLONOSCOPY, ÁNGEL. CATARTACTS.Pain Procedures , rt radio frequency procedures. , total 3 heart stents, hemorrhoidectomy,heart cath August 2017-lt knee replacement. Stent replacement \2020 Past Anesthesia/Blood Transfusion Reactions: No Reported Reaction Additional Past Anesthesia/Blood Transfusion Reaction / Comment(s): doesn't like enclosed tight spaces Date of Last Stent Placement:: 04/24/17 Past Psychological History: No Psychological Hx Reported Smoking Status: Former smoker Past Alcohol Use History: None Reported Past Drug Use History: None Reported - Past Family History Father Additional Family Medical History / Comment(s): Father at age 49 from coronary artery disease. Brother(s) Additional Family Medical History / Comment(s): Patient has one brother with history of smoking and no other major medical problems. Patient does not have any sisters. Daughter(s) Additional Family Medical History / Comment(s): He has one daughter alive in [place] with no major medical problems. Patient has one daughter with history of muscular dystrophy and of pneumonia. Son(s) Family Medical History: No Reported History Additional Family Medical History / Comment(s): Patient has one son with no major medical problems. Mother Family Medical History: Cancer Additional Family Medical History / Comment(s): Mother at age 81 from uterine cancer with metastatic disease. Medications and Allergies Home Medications Medication Instructions Recorded Confirmed Type Aspirin [Standard Aspirin EC] 81 mg PO DAILY 08/05/20 02/23/21 History Acetaminophen Tab [Tylenol] 1,000 mg PO Q6HR PRN 09/01/20 02/23/21 History Atorvastatin [Lipitor] 80 mg PO HS 09/01/20 02/23/21 History Clopidogrel [Plavix] 75 mg PO DAILY 09/01/20 02/23/21 History Metoprolol Tartrate [Lopressor] 50 mg PO BID 09/17/20 02/23/21 History Dapagliflozin Propanediol [Farxiga] 5 mg PO HS 02/23/21 02/23/21 History HYDROcodone/APAP 10-325MG [[place] 1 tab PO Q6H PRN 02/23/21 02/23/21 History 10-325] sitaGLIPtin PHOS/metFORMIN HCL 1 tab PO DAILY 02/23/21 02/23/21 History [Janumet Xr 100-1,000 mg Tablet] Allergies Allergy/AdvReac Type Severity Reaction Status Date / Time No Known Allergies Allergy Verified 02/23/21 10:49 Physical Exam Vitals: Vital Signs Temp Pulse Resp BP Pulse Ox 02/23/21 08:42 97.2 F L 121 H 18 113/75 97 Intake and Output 02/22/21 02/23/21 02/23/21 23:59 06:59 14:59 Other: Weight 90.718 kg Results CBC & Chem 7: 02/23/21 09:48 02/23/21 09:48 Labs: Abnormal Lab Results - Last 24 Hours (Table) 02/23/21 02/23/21 Range/Units 09:48 09:48 RBC 3.97 L (4.30-5.90) m/uL Hgb 11.4 L (13.0-17.5) gm/dL Hct 35.6 L (39.0-53.0) % Lymphocytes # 0.7 L (1.0-4.8) k/uL Sodium 135 L (137-145) mmol/L BUN 24 H (9-20) mg/dL Glucose 147 H (74-99) mg/dL C-Reactive Protein 6.5 H (<1.0) mg/dL Albumin 3.4 L (3.5-5.0) g/dL
[2021-02-23] MEDS: NAFCILLIN 2 GM in DEXTROSE 5% IN WATER 100 ML IVPB SCH ×6 (12:10→21:18)
[2021-02-23] MEDS: HYDROcodone/APAP 10-325MG 1 EACH TAB PO PRN (13:59)
[2021-02-23] MEDS: SODIUM CHLORIDE 0.9% 1,000 ML IV ONE ×2 (17:04→17:47)
[2021-02-23 17:35] LABS: Glucose,Whole Blood 225 mg/dL (75-99)
[2021-02-23] MEDS: INSULIN ASPART (NovoLOG) 100 UNIT/ML VIAL SQ SCH ×2 (17:51→21:22)
[2021-02-23] MEDS: HYDROmorphone 0.5 MG/0.5 ML SYRINGE IVP PRN (18:24)
[2021-02-23 21:02] LABS: Glucose,Whole Blood 110 mg/dL (75-99)
[2021-02-23] MEDS: LACTOBACILLUS ACIDOPH & BULGAR 1 EACH PACKET PO SCH (21:19)
[2021-02-23] MEDS: ATORVASTATIN 80 MG TAB PO SCH (21:19)
[2021-02-23] MEDS: METOPROLOL TARTRATE 50 MG TAB PO SCH (21:19)
[2021-02-23] MEDS: NON FORMULARY DRUG (Dapagliflozin Propanediol [Farxiga] 5 MG Tablet) PO SCH (21:23)
--- NOTE | 2021-02-23 22:27 | P.CONS ---
History of Present Illness - Reason for Consult Consult date: 02/23/21 left knee septic arthritis , sacral ulcer Requesting physician: German Astudillo - Chief Complaint left knee pain x days - History of Present Illness History of present illness : Patient is 75-year male with a past medical history significant for left knee septic arthritis of the left knee initial diagnosis in July 2020 in this patient status post I&D subsequently the patient developed a infected sacral pressure ulcer in September 2020 with multiple pathogen for the patient was treated with IV antibiotic therapy and currently follows at [facility] wound care center with the wound is almost healing up patient and did have a recurrence of the left knee pain and the patient did have an aspirate of the left knee done on January 22 which was positive for MSSA patient not sure which antibiotic that he received for it patient now presenting to the ER with concern for increasing pain to the left knee area patient described the pain to be more of a sharp in nature almost 7-8 out of 10 and worse with movement of the left knee patient denies high-grade f ever or chills no chest pain shortness of breath or cough no abdominal pain or any pain to the sacral wound area patient on presentation to the hospital was afebrile patient did have a normal white count did have elevated sed rate creatinine was 0.79 patient was started on nafcillin infectious disease was consulted for further management of antibiotic therapy Review of system: CONSTITUTIONAL: Positive for weakness denies high-grade fever. EYES: No complaint. ENT: No complaint. RESPIRATORY: No complaint. CARDIOVASCULAR: No complaint. GENITOURINARY: No complaint. GASTROINTESTINAL: No complaint. MUSCULOSKELETAL: As per history of present illness. INTEGUMENTARY: As per history of present illness. PSYCHOLOGIC: No complaint. ENDOCRINE: No complaint. NEUROLOGIC: No complaint. Past medical history : Reviewed, documented below Past surgical history : Reviewed, documented below Social history: Reviewed, documented below Medications: Reviewed, as documented below EXAMINATION: Vital sigans= Reviewed and documented below GENERAL DESCRIPTION: Elderly male lying in bed, no distress. No tachypnea or accessory muscle of respiration use. HEENT: Shows Pallor , no scleral icterus. Oral mucous membrane is dry. NECK: Trachea central, no thyromegaly. LUNGS: Unlabored breathing. Clear to auscultation anteriorly. No wheeze or crackle. HEART: S1, S2, regular rate and rhythm. ABDOMEN: Soft, no tenderness , guarding or rigidity EXTREMITIES: Left knee did have some swelling no significant redness or drainage. SKIN: No rash, no masses palpable. Patient with a sacral pressure ulcer with no slough tissue no surrounding redness or any drainage NEUROLOGICAL: The patient is awake, alert, oriented x3, mood and affect normal. LABS AND RADIOLOGY: Reviewed results see below Assessment : 1-Patient presented to hospital with left knee pain in this patient did have history of left knee septic arthritis initial treatment was I&D and IV antibiotic therapy however they seem to have not completely healed of this infection patient did have recent left knee aspirate with evidence of MSSA pa tient with will need excisional arthroplasty and antibiotic spacer placement followed by 6 weeks of antibiotics before stage II procedure 2-patient with a sacral pressure ulcer currently with no evidence of any cellulitis local wound care to continue with Plan: 1-blood cultures have been repeated to make sure patient is not bacteremic 2-to continue with Naficillin 3-local wound care to sacral wound with the Hydrofera Blue dressing and keep the area of the pressure We will follow on clinical condition and cultures to further adjust medication if needed Thank you for this consultation we will follow the patient along with you Past Medical History Past Medical History: Atrial Fibrillation, Coronary Artery Disease (CAD), Cancer, Chest Pain / Angina, Diabetes Mellitus, GERD/Reflux, Hyperlipidemia, Hypertension, Osteoarthritis (OA), Prostate Disorder Additional Past Medical History / Comment(s): 5 Herniated discs in neck causing headaches & numbness in arm and right lower back and pain and right leg pain. Hx 4 fx ribs, current Prostate Cancer- last radiation tx Mar 25 had total of 44 tx. occ constipation, Last Myocardial Infarction Date:: UNKOWN History of Any Multi-Drug Resistant Organisms: VRE Year Discovered:: 09/18/20 MDRO Source:: Wound Past Surgical History: Adenoidectomy, Heart Catheterization, Heart Catheterization With Stent, Joint Replacement, Orthopedic Surgery, Tonsillectomy Additional Past Surgical History / Comment(s): PROSTATE BX., LT. KNEE ARTHRO SCOPY X 2, CERVICAL FUSIONS, COLONOSCOPY, ÁNGEL. CATARTACTS.Pain Procedures , rt radio frequency procedures. , total 3 heart stents, hemorrhoidectomy,heart cath August 2017-lt knee replacement. Stent replacement Past Anesthesia/Blood Transfusion Reactions: No Reported Reaction Additional Past Anesthesia/Blood Transfusion Reaction / Comm: doesn't like enclosed tight spaces Date of Last Stent Placement:: 04/24/17 Past Psychological History: No Psychological Hx Reported Smoking Status: Former smoker Past Alcohol Use History: None Reported Past Drug Use History: None Reported - Past Family History Father Additional Family Medical History / Comment(s): Father at age 49 from coronary artery disease. Brother(s) Additional Family Medical History / Comment(s): Patient has one brother with history of smoking and no other major medical problems. Patient does not have any sisters. Daughter(s) Additional Family Medical History / Comment(s): He has one daughter alive in [place] with no major medical problems. Patient has one daughter with history of muscular dystrophy and of pneumonia. Son(s) Family Medical History: No Reported History Additional Family Medical History / Comment(s): Patient has one son with no major medical problems. Mother Family Medical History: Cancer Additional Family Medical History / Comment(s): Mother at age 81 from uterine cancer with metastatic disease. Medications and Allergies Home Medications Medication Instructions Recorded Confirmed Type Aspirin [[place] Aspirin EC] 81 mg PO DAILY 08/05/20 02/23/21 History Acetaminophen Tab [Tylenol] 1,000 mg PO Q6HR PRN 09/01/20 02/23/21 History Atorvastatin [Lipitor] 80 mg PO HS 09/01/20 02/23/21 History Clopidogrel [Plavix] 75 mg PO DAILY 09/01/20 02/23/21 History Metoprolol Tartrate [Lopressor] 50 mg PO BID 09/17/20 02/23/21 History Dapagliflozin Propanediol [Farxiga] 5 mg PO HS 02/23/21 02/23/21 History HYDROcodone/APAP 10-325MG [[place] 1 tab PO Q6H PRN 02/23/21 02/23/21 History 10-325] sitaGLIPtin PHOS/metFORMIN HCL 1 tab PO DAILY 02/23/21 02/23/21 History [Janumet Xr 100-1,000 mg Tablet] Allergies Allergy/AdvReac Type Severity Reaction Status Date / Time No Known Allergies Allergy Verified 02/23/21 10:49 Physical Exam Vitals: Vital Signs Temp Pulse Resp BP Pulse Ox 02/23/21 08:42 97.2 F L 121 H 18 113/75 97 Intake and Output 02/23/21 02/23/21 02/23/21 06:59 14:59 22:59 Other: Weight 90.718 kg Results CBC & Chem 7: 02/23/21 09:48 02/23/21 09:48 Labs: Abnormal Lab Results - Last 24 Hours (Table) 02/23/21 02/23/21 02/23/21 Range/Units 09:48 09:48 12:49 RBC 3.97 L (4.30-5.90) m/uL Hgb 11.4 L (13.0-17.5) gm/dL Hct 35.6 L (39.0-53.0) % Lymphocytes # 0.7 L (1.0-4.8) k/uL ESR 97 H (0-15) mm/hr Sodium 135 L (137-145) mmol/L BUN 24 H (9-20) mg/dL Glucose 147 H (74-99) mg/dL C-Reactive Protein 6.5 H (<1.0) mg/dL Albumin 3.4 L (3.5-5.0) g/dL
[2021-02-24] MEDS: HYDROcodone/APAP 10-325MG 1 EACH TAB PO PRN ×4 (00:13→23:54)
[2021-02-24] MEDS: NAFCILLIN 2 GM in DEXTROSE 5% IN WATER 100 ML IVPB SCH ×14 (02:40→23:53)
[2021-02-24] MEDS: HYDROmorphone 0.5 MG/0.5 ML SYRINGE IVP PRN ×4 (04:19→20:16)
[2021-02-24 07:32] LABS: Glucose,Whole Blood 112 mg/dL (75-99)
[2021-02-24] MEDS: metFORMIN 500 MG TAB PO SCH ×2 (08:06→21:41)
[2021-02-24] MEDS: LACTOBACILLUS ACIDOPH & BULGAR 1 EACH PACKET PO SCH ×2 (08:06→21:41)
[2021-02-24] MEDS: LINAGLIPTIN 5 MG TABLET PO SCH (08:07)
[2021-02-24] MEDS: ENOXAPARIN 40 MG/0.4 ML SYRINGE SQ SCH (08:07)
[2021-02-24] MEDS: ASPIRIN 81 MG PO SCH (08:08)
[2021-02-24] MEDS: INSULIN ASPART (NovoLOG) 100 UNIT/ML VIAL SQ SCH ×4 (08:09→21:41)
[2021-02-24] MEDS: PANTOPRAZOLE 40 MG TABLET PO SCH (08:13)
[2021-02-24] MEDS: METOPROLOL TARTRATE 50 MG TAB PO SCH ×2 (08:13→21:41)
[2021-02-24 09:31] LABS: Basophils # (A) 0.01 X 10*3/uL (0.00-0.10); Basophils % (A) 0.3 %; Eosinophils # (A) 0 X 10*3/uL (0.04-0.35); Eosinophils % (A) 0 %; HGB 9.8 g/dL (13.0-17.0); Lymphocytes % (A) 18.2 %; MCHC 30.6 g/dL (32.0-37.0); MCV 91.4 fL (80.0-97.0); Mean Platelet Volume 10.1 fL (9.5-12.2); Monocytes # (A) 0.45 X 10*3/uL (0.20-1.00); Monocytes % (A) 11.7 %; Neutrophils # (A) 2.68 X 10*3/uL (1.80-7.70); Neutrophils % (A) 69.5 %; Platelet Count 241 X 10*3/uL (140-440); RDW 15.6 % (11.5-14.5); WBC 3.85 X 10*3/uL (4.50-10.00)
--- NOTE | 2021-02-24 10:52 | CONS ---
CONSULTATION Mr. Berkowitz is a 75-year-old male with known history of coronary artery disease, history of hypertension, hyperlipidemia and diabetes mellitus who presented to the hospital with progressive discomfort in the left knee and was diagnosed with an infected left knee prosthesis. Cardiology consultation was requested because of his cardiac history. Patient has a known history of decubitus ulcer, status post debridement. He had multiple percutaneous revascularizations, most recently in July of 2020. He underwent stenting of the complex RCA calcified lesion at [facility]. Cardiac-stoddard he has done well without any recurrent chest discomfort. His breathing has been stable. He denies any dizziness or palpitations. He denies any nausea. The discomfort in the left knee has been progressive, to the point that he could not sleep, and because of that he is being admitted to undergo removal of his hardware from the left knee, placement of a spacer, and to subsequently be re-evaluated for undergoing placement of a new left knee prosthesis. His coronary risk factors are remarkable for hyperlipidemia, hyperlipidemia, hypertension, diabetes. He has a prior history of smoking. MEDICATIONS: His medications at the time of admission included aspirin once a day, Plavix 75 mg daily, Lipitor 80 mg daily, Farxiga 5 mg daily, metoprolol tartrate 50 mg twice a day, and Janumet. REVIEW OF SYSTEMS: RESPIRATORY SYSTEM: He has no recent wheezing or cough. No history of documented obstructive lung disease. GI SYSTEM: No recent GI bleeding. No peptic ulcer disease. SYSTEM: No dysuria or hematuria. NERVOUS SYSTEM: No history of seizure. PHYSICAL EXAMINATION: He is a 75-year-old male, alert, oriented, in no apparent distress. Blood pressure 127/70 with a heart rate in the 70s. HEAD: Normocephalic. EYES: Sclerae anicteric. NECK: Good carotid upstroke. No bruit. LUNGS: Clear to auscultation. HEART: Regular rate and rhythm. S1, S2. No S3. With a systolic murmur at the base. No diastolic murmur. No rub. ABDOMEN: Soft, nontender. LEFT KNEE: With significant swelling noted and discomfort. He had a decubitus ulcer on the coccyx. No significant edema noted. LAB DATA: Hemoglobin 9.8, white blood cells 3.85, BUN and creatinine of 24 and 0.76. IMPRESSION: 1. Infected left knee prosthesis; scheduled to undergo removal of the hardware and placement of a spacer. 2. History of coronary artery disease, status post multiple percutaneous revascularizations, most recently in July of this year done at [facility]. 3. History of hypertension. 4. Hyperlipidemia. 5. Diabetes mellitus. 6. Sacral pressure ulcer, healing. RECOMMENDATIONS: From the cardiac standpoint, it has been 6 months since his percutaneous revascularization. His Plavix can be held. He will continue on the aspirin. He should be able to proceed with his scheduled intervention, and depending on his progress, further recommendation will be made. Thank you for this consult. Will follow with you. MMODL / IJN: [id number] /
--- NOTE | 2021-02-24 11:17 | P.CNOR ---
History of Present Illness - HPI Consult date: 02/24/21 History of present illness: This is a 75 year-old male who is admitted for an infected left total knee. This has been an ongoing problem for this patient and he was initially treated with an I&D of the left knee and IV antibiotics. Patient has a history of left total knee arthroplasty [place] [address] Raji Choi. Patient was scheduled to have a stage 1 revision of the left knee last week, but this was postponed due to ongoing treatment for a sacral pressure ulcer. Patient is seen and evaluated at bedside today with Dr. Raji Choi. Patient states that the pain in his knee has been getting progressively worse so his daughter took him to the emergency room. Patient states that he would like to proceed with stage I revision left total knee arthroplasty. Patient's past medical history significant for atrial fibrillation, coronary artery disease, chest pain, diabetes mellitus, GERD, hyperlipidemia, hypertension, osteoarthritis and prostate cancer. Patient denies any fever/chills, numbness, weakness or tingling. Review of Systems See HPI. Past Medical History Past Medical History: Atrial Fibrillation, Coronary Artery Disease (CAD), Cancer, Chest Pain / Angina, Diabetes Mellitus, GERD/Reflux, Hyperlipidemia, Hypertension, Osteoarthritis (OA), Prostate Disorder Additional Past Medical History / Comment(s): 5 Herniated discs in neck causing headaches & numbness in arm and right lower back and pain and right leg pain. Hx 4 fx ribs, current Prostate Cancer- last radiation tx Mar 25 had total of 44 tx. occ constipation, Last Myocardial Infarction Date:: UNKOWN History of Any Multi-Drug Resistant Organisms: VRE Year Discovered:: 09/18/20 MDRO Source:: Wound Past Surgical History: Adenoidectomy, Heart Catheterization, Heart Catheterization With Stent, Joint Replacement, Orthopedic Surgery, Tonsillectomy Additional Past Surgical History / Comment(s): PROSTATE BX., LT. KNEE ARTHROSCOPY X 2, CERVICAL FUSIONS, COLONOSCOPY, ÁNGEL. CATARTACTS.Pain Procedures , rt radio frequency procedures. , total 3 heart stents, hemorrhoidectomy,heart cath August 2017-lt knee replacement. Stent replacement \2020 Past Anesthesia/Blood Transfusion Reactions: No Reported Reaction Additional Past Anesthesia/Blood Transfusion Reaction / Comm: doesn't like enclosed tight spaces Date of Last Stent Placement:: 04/24/17 Past Psychological History: No Psychological Hx Reported Smoking Status: Former smoker Past Alcohol Use History: None Reported Past Drug Use History: None Reported - Past Family History Father Additional Family Medical History / Comment(s): Father at age 49 from coronary artery disease. Brother(s) Additional Family Medical History / Comment(s): Patient has one brother with history of smoking and no other major medical problems. Patient does not have any sisters. Daughter(s) Additional Family Medical History / Comment(s): He has one daughter alive in [place] with no major medical problems. Patient has one daughter with history of muscular dystrophy and of pneumonia. Son(s) Family Medical History: No Reported History Additional Family Medical History / Comment(s): Patient has one son with no major medical problems. Mother Family Medical History: Cancer Additional Family Medical History / Comment(s): Mother at age 81 from uterine cancer with metastatic disease. Medications and Allergies Home Medications Medication Instructions Recorded Confirmed Type Aspirin [Giles Aspirin EC] 81 mg PO DAILY 08/05/20 02/23/21 History Acetaminophen Tab [Tylenol] 1,000 mg PO Q6HR PRN 09/01/20 02/23/21 History Atorvastatin [Lipitor] 80 mg PO HS 09/01/20 02/23/21 History Clopidogrel [Plavix] 75 mg PO DAILY 09/01/20 02/23/21 History Metoprolol Tartrate [Lopressor] 50 mg PO BID 09/17/20 02/23/21 History Dapagliflozin Propanediol [Farxiga] 5 mg PO HS 02/23/21 02/23/21 History HYDROcodone/APAP 10-325MG [[place] 1 tab PO Q6H PRN 02/23/21 02/23/21 History 10-325] sitaGLIPtin PHOS/metFORMIN HCL 1 tab PO DAILY 02/23/21 02/23/21 History [Janumet Xr 100-1,000 mg Tablet] Allergies Allergy/AdvReac Type Severity Reaction Status Date / Time No Known Allergies Allergy Verified 02/23/21 10:49 Physical Examination On exam patient is lying comfortably in bed in no acute distress. Patient is alert and oriented. There is a well healed surgical incision. There is a large effusion. No erythema. Patient has pain and limitation with range of motion of the left knee. Calf is soft and nontender to palpation. Sensation intact. Neurovascular status and circulatory status are intact. Results - Labs Labs: Abnormal Lab Results - Last 24 Hours (Table) 02/23/21 02/23/21 02/23/21 Range/Units 12:49 17:34 20:57 WBC (4.50-10.00) X 10*3/uL RBC (4.40-5.60) X 10*6/uL Hgb (13.0-17.0) g/dL Hct (39.6-50.0) % MCHC (32.0-37.0) g/dL RDW (11.5-14.5) % Lymphocytes # (0.90-5.00) X 10*3/uL Eosinophils # (0.04-0.35) X 10*3/uL ESR 97 H (0-15) mm/hr POC Glucose (mg/dL) 225 H 110 H (75-99) mg/dL 02/24/21 02/24/21 Range/Units 05:30 07:31 WBC 3.85 L (4.50-10.00) X 10*3/uL RBC 3.50 L (4.40-5.60) X 10*6/uL Hgb 9.8 L (13.0-17.0) g/dL Hct 32.0 L (39.6-50.0) % MCHC 30.6 L (32.0-37.0) g/dL RDW 15.6 H (11.5-14.5) % Lymphocytes # 0.70 L (0.90-5.00) X 10*3/uL Eosinophils # 0 L (0.04-0.35) X 10*3/uL ESR (0-15) mm/hr POC Glucose (mg/dL) 112 H (75-99) mg/dL H & H 02/23/21 02/24/21 Range/Units 09:48 05:30 Hgb 11.4 L 9.8 L (13.0-17.5) gm/dL Hct 35.6 L 32.0 L (39.0-53.0) % Result Diagrams: 02/24/21 05:30 02/23/21 09:48 Assessment and Plan (1) Septic joint of left knee joint Current Visit: Yes Status: Acute Code(s): M00.9 - PYOGENIC ARTHRITIS, UNSPECIFIED SNOMED Code(s): 444939842 Plan: 1. Patient is to be NPO after midnight. 2. Appreciate input from internal medicine and cardiology. 3. The plan to proceed with stage 1 revision left total knee arthroplasty is discussed with the patient at bedside today and he agrees with this plan.
[2021-02-24 11:50] VITALS: BMI 26.4
[2021-02-24 11:53] LABS: Glucose,Whole Blood 161 mg/dL (75-99)
--- NOTE | 2021-02-24 13:36 | P.PN ---
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 as well as radio frequency ablation, prostate cancer status post radiation therapy, patient took himself off the Plavix due to significant bruising and bleeding against his mill set up recommendation and he was taken a baby aspirin alone, 07/28/[address] from inferior wall ST elevation myocardial infarction patient was taken to the lab engineer and an attempted angioplasty of a completely occluded RCA had failed and the patient was transferred to [facility] for complex angioplasty of the occluded RCA, apparently patient did have 2 stents placement in the RCA and he was discharged from [facility]. Patient then had admission August 05 through August 16 at which time he was treated for septic arthritis of the left knee with persistent MSSA bacteremia status post I&D of the left total knee. He also suffered from lactic acidosis, thrombocytopenia secondary to sepsis, acute kidney injury. Patient was stabilized and discharged to [facility] for subacute rehab. Patient was continued on for a 6 week course, Unfortunately, patient developed C. difficile colitis treated with oral vancomycin. Patient has done very little physical therapy at that time and stayed in bed most the time, developed decubitus ulcer with worsening to the coccyx area, has been under the care of Dr. Cedillo for quite sometimes and his decubitus ulcer is getting a lot closer to heal, patient was seen in my office a few weeks back and he was seen earlier by Dr. Choi were recommended for the patient to go for removal of the hardware and placement of antibiotic spacer because of arthrocentesis that was done in 01/22/2021 which showed methicillin sensitive septic coccus aureus that is sensitive to penicillin and oxacillin and the patient was seen in the office for preoperative medical years however after discussing the matter with ID was recommended to hold off any surgical intervention until the decubitus ulcer healed completely patient presented to the emergency department today with increased swelling and pain in the left knee and patient decided to go for surgical intervention at this point in time because his could not take the pain anymore. Patient will be admitted to the hospital will obtain blood culture, we'll ask orthopedic surgery for consultation for hardware removal and placement of antibiotic spacer, I will start the patient on IV antibiotic in the form of nafcillin for gram IV piggyback every 4 hours, obtain ID consultation, cardiology consultation, as well as orthopedic consultation we will organize his treatment plan and the patient will likely will require to go back to [facility] for physical therapy and rehabilitation 02/24: Patient has been seen by cardiology, Dr. Valencia, and cleared for Plavix to be held, continue aspirin. Orthopedics is following and made patient nothing by mouth with plan for stayed with one revision left total knee arthroplasty tomorrow. Dr. Cedillo is recommending continuing nafcillin, Hydrofera Blue dressing to the sacral pressure ulcer. Patient has been afebrile, heart rate 71, blood pressure 137/78, pulse ox 90% on room air. WBC 3.8, hemoglobin 9.8, platelet count 241. Blood sugars are running between 110 and 225. Blood culture no growth at 24 hours. REVIEW OF SYSTEMS: Constitutional: negative for fever, or chills, no night sweats, fatigue , positive for weight loss. HEENT: No headache. No blurred vision or double vision, no loss of vision. No loss of Hearing, no ringing in the ears, no dizziness. No nasal drainage or congestion. No epistaxis. No sore throat. Respiratory: No shortness of breath, no cough, no sputum production. No wheezing. Reports dyspnea with activity. Cardiovascular: No chest pain, no lower extremity edema. No palpitations. No paroxysmal nocturnal dyspnea. No orthopnea. No lightheadedness or dizziness. No syncopal episodes. Gastrointestinal: Reports no abdominal pain. No nausea, vomiting. No diarrhea. No constipation. No bloody or tarry stools reports loss of appetite. Genitourinary: No dysuria, increased frequency, urgency. No urinary retention. Musculoskeletal: Positive for myalgias. positive for muscle weakness, Positive for gait dysfunction, no frequent falls, positive for left knee pain, locking,and swelling positive for low back pain . Integumentary: No wounds, no lesions. No rash or pruritus. brpositive for bruising. No change in hair or nails. Neurologic: No aphasia. No facial droop. No change in mentation. No head injury. No headache. No paralysis. No paresthesia. Psychiatric: No depression. No anxiety. No mood swings. Endocrine: Noted abnormal blood sugars. No weight change. PHYSICAL EXAMINATION: General: This is 75-year-old male who appears to be in no distress. HEENT: Head is atraumatic, normocephalic, pupils were equal round reactive to light and recommendation, extraocular muscle movement were intact, sclera nonicteric, conjunctivae were pale, mucous membranes of the mouth are somewhat dry. Neck: Supple, no JVP, normal carotid upstroke bilaterally, no lymphadenopathy. Chest: Decreased breath sounds at the bases, few rhonchi, no extremity wheezes, no chest wall tenderness, no intercostal retractions. Heart: First heart sound is normal, second heart sound is normal there is syst olic ejection murmur 2/6 left sternal border. Abdomen: Soft, nontender, nondistended, positive bowel sounds, no hepatosplenomegaly Extremities: There is no edema no calf tenderness DP + 1 bilaterally, left knee with increased swelling and significant tenderness with decreased range of motion. Skin: There is a crescent shaped stage 2-3 decubitus ulcer in the coccyx area with clean granulation tissue at the base, we'll continue currently with Hydrofera Blue wound dressing as per infectious disease. Neurologic examination: Patient is awake alert and oriented X3, cranial nerves II-12 appear grossly intact, muscle power were 5 out of 5 in upper extremities and 4 out of 5 in the right lower extremity and 2 out of 5 in the left lower extremity due to pain. ASSESSMENT AND PLAN: 1. MSSA left knee joint infection . Consult orthopedic surgery and plan for Stage 1 Revision left total knee arthroplasty, continue the patient on IV antibiotic in the form of nafcillin for gram IV piggyback every 4 hours, blood cultures will be obtained, we'll try to get the culture from the fluid in the joints as well, keep off the floor, rotated the patient every 2 hours , so the patient on Glucerna 3 times every day, ID consultation is appreciated, along with orthopedic surgery consultation will obtain cardiac consultation for preoperative medical clearance. 2. stage III crescent shaped decubitus ulcer in the coccyx area. Continue with current dressing as per ID, turn the patient every 2 hours, keep off his back at all the time along with adding Glucerna TID. 3. History of recent septic arthritis of the left knee and MSSA bacteremia s/p debridement of the left knee i the past and now will need definitive treatment with removal of the hardware and placement of Antibiotic spacer. 4. Recent left heart catheterization with PCI of the RCA on 07/30/2020 Continue patient on aspirin 81 g once every day, discontinue Plavix, continue metoprolol 50 mg orally twice every day, continue atorvastatin 80 mg orally once every day. 5. Hypertension and hypertensive cardiovascular disease. Continue metoprolol 50 mg orally twice every day. 6. Hyperlipidemia. Continue patient on atorvastatin 80 mg orally once every day. 7. Diabetes mellitus type 2. Start the patient on Farxiga 5 mg orally daily along with SSI and Janumet 100/1000 g orally once every day, monitor glucose level before each meal and at bedtime. 8. History of prostate cance status post rotation. Stable at this time. 9. 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 Continue current pain management. 10. DVT prophylaxis. Lovenox 40 mg subcutaneously every 24 hours. 11. GI prophylaxis. Protonix 40 mg orally twice daily. 12. Admit to inpatient. Estimate a length of stay 2 midnights. 13. Patient is full code. DISCHARGE PLAN Home with [facility]. Impression and plan of care have been directed as dictated by the signing physician. Padma Monsalve nurse practitioner acting as scribe for signing physician. Objective - Vital Signs Vital signs: Vital Signs Temp 97.8 F 02/24/21 02:52 Pulse 73 02/24/21 02:52 Resp 14 02/23/21 19:46 BP 127/70 02/24/21 02:52 Pulse Ox 97 02/24/21 02:52 Intake & Output 02/23/21 02/24/21 02/24/21 18:59 06:59 18:59 Intake Total 200 Output Total 250 Balance -50 Weight 90.718 kg Intake: Oral 200 Output: Urine 250 Other: # Voids 0 # Bowel Movements 1 - Labs CBC & Chem 7: 02/24/21 05:30 02/23/21 09:48 Labs: Abnormal Lab Results - Last 24 Hours (Table) 02/23/21 02/23/21 02/23/21 Range/Units 09:48 09:48 12:49 RBC 3.97 L (4.30-5.90) m/uL Hgb 11.4 L (13.0-17.5) gm/dL Hct 35.6 L (39.0-53.0) % Lymphocytes # 0.7 L (1.0-4.8) k/uL ESR 97 H (0-15) mm/hr Sodium 135 L (137-145) mmol/L BUN 24 H (9-20) mg/dL Glucose 147 H (74-99) mg/dL POC Glucose (mg/dL) (75-99) mg/dL C-Reactive Protein 6.5 H (<1.0) mg/dL Albumin 3.4 L (3.5-5.0) g/dL 02/23/21 02/23/21 02/24/21 Range/Units 17:34 20:57 07:31 RBC (4.30-5.90) m/uL Hgb (13.0-17.5) gm/dL Hct (39.0-53.0) % Lymphocytes # (1.0-4.8) k/uL ESR (0-15) mm/hr Sodium (137-145) mmol/L BUN (9-20) mg/dL Glucose (74-99) mg/dL POC Glucose (mg/dL) 225 H 110 H 112 H (75-99) mg/dL C-Reactive Protein (<1.0) mg/dL Albumin (3.5-5.0) g/dL
[2021-02-24 15:53] LABS: Albumin 3.2 g/dL (3.8-4.9); Albumin/Globulin Ratio 1.34 (1.60-3.17); Anion Gap 18.9 mmol/L (4.00-12.00); BUN/Creat Ratio 25.46 Ratio (12.00-20.00); Blood Urea Nitrogen 23.7 mg/dL (9.0-27.0); Calcium 8.6 mg/dL (8.7-10.3); Carbon Dioxide 22.4 mmol/L (21.6-31.8); Globulin 2.4 g/dL (1.6-3.3); Non-African American GFR(CKD) 79.4 (60.0-200.0); Potassium 4.9 mmol/L (3.5-5.5); Total Bilirubin 0.5 mg/dL (0.30-1.20); Total Protein 5.6 g/dL (6.2-8.2)
[2021-02-24 16:47] LABS: Glucose,Whole Blood 134 mg/dL (75-99)
[2021-02-24 21:24] LABS: Glucose,Whole Blood 145 mg/dL (75-99)
[2021-02-24] MEDS: ATORVASTATIN 80 MG TAB PO SCH (21:41)
--- NOTE | 2021-02-24 22:37 | PN ---
PROGRESS NOTE DATE OF SERVICE: 02/24/2021 REASON FOR FOLLOWUP: 1. Left knee septic arthritis. 2. Sacral pressure ulcer. INTERVAL HISTORY: The patient is afebrile. The patient is currently breathing comfortably. Denies any worsening pain to the left knee or the sacral wound area. No chest pain, shortness of breath or cough. No abdominal pain or diarrhea. PHYSICAL EXAMINATION: Blood pressure 137/71 with a pulse of 70, temperature 98.8. He is 97% on room air. General description is an elderly male lying in bed in no distress. Respiratory system: Unlabored breathing, clear to auscultation anteriorly. Heart S1, S2. Regular rate and rhythm. Abdomen soft, no tenderness. Left knee did have swelling; no redness and no drainage. LABS: Hemoglobin 9.1, white count 3.85. Creatinine is 0.9. DIAGNOSTIC IMPRESSION AND PLAN: 1. Patient with left knee septic arthritis, MSSA, possible excisional arthroplasty and antibiotic spacer placement tomorrow. Patient is covered with nafcillin. Cultures will be followed. 2. Sacral pressure ulcer. Local care to continue with Hydrofera Blue dressing changes. Continue supportive care. MMODL / IJN: [id number] /
[2021-02-24] MEDS: NON FORMULARY DRUG (Dapagliflozin Propanediol [Farxiga] 5 MG Tablet) PO SCH (23:46)
[2021-02-25] MEDS: NAFCILLIN 2 GM in DEXTROSE 5% IN WATER 100 ML IVPB SCH ×10 (03:35→22:37)
[2021-02-25] MEDS: HYDROmorphone 0.5 MG/0.5 ML SYRINGE IVP PRN ×3 (03:35→21:25)
[2021-02-25] MEDS: HYDROcodone/APAP 10-325MG 1 EACH TAB PO PRN (06:21)
[2021-02-25 07:01] LABS: Glucose,Whole Blood 124 mg/dL (75-99)
[2021-02-25] MEDS ORDERED: MIDAZOLAM 2 MG/2 ML VIAL IV PRN (07:21)
[2021-02-25] MEDS ORDERED: DEXAMETHASONE SOD PHOSPHATE 4 MG/ML 1 ML VIAL IV ONE (07:21)
[2021-02-25] MEDS ORDERED: ONDANSETRON 4 MG/2 ML VIAL IVP ONE (07:21)
[2021-02-25] MEDS: INSULIN ASPART (NovoLOG) 100 UNIT/ML VIAL SQ SCH ×4 (07:28→23:17)
--- NOTE | 2021-02-25 08:34 | P.PN ---
Subjective Progress Note Date: 02/25/21 HISTORY OF PRESENT ILLNESS: This is a 75-year-old male patient of mine with previous medical history significant for coronary artery disease status post percutaneous coronary interv ention and stent placement last one was in 12/13/2019 in the mid RCA at that time he was found to have a totally occluded obtuse marginal one of the LCx, with collaterals from the PDA, hypertension and hypertensive cardiovascular disease, hyperlipidemia, diabetes mellitus type 2, diabetic polyneuropathy, 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 as well as radio frequency ablation, prostate cancer status post radiation therapy, patient took himself off the Plavix due to significant bruising and bleeding against his spinner tender recommendation and he was taken a baby aspirin alone, 07/28/[address] from [address] ST elevation myocardial infarction patient was taken to the laborer [facility] and an attempted angioplasty of a completely occluded RCA had failed and the patient was transferred to [facility] for complex angioplasty of the occluded RCA, apparently patient did have 2 stents placement in the RCA and he was discharged from [facility]. Patient then had admission August 05 through August 16 at which time he was treated for septic arthritis of the left knee with persistent MSSA bacteremia status post I&D of the left total knee. He also suffered from lactic acidosis, thrombocytopenia secondary to sepsis, acute kidney injury. Patient was stabilized and discharged to [facility] for subacute rehab. Patient was continued on for a 6 week course, Unfortunately, patient developed C. difficile colitis treated with oral vancomycin. Patient has done very little physical therapy at that time and stayed in bed most the time, developed decubitus ulcer with worsening to the coccyx area, has been under the care of Dr. Cedillo for quite sometimes and his decubitus ulcer is getting a lot closer to heal, patient was seen in my office a few weeks back and he was seen earlier by Dr. Choi were recommended for the patient to go for removal of the hardware and placement of antibiotic spacer because of arthrocentesis that was done in 01/22/2021 which showed methicillin sensitive septic coccus aureus that is sensitive to penicillin and oxacillin and the patient was seen in the office for preoperative medical years however after discussing the matter with ID was recommended to hold off any surgical intervention until the decubitus ulcer healed completely patient presented to the emergency department today with increased swelling and pain in the left knee and patient decided to go for surgical intervention at this point in time because his could not take the pain anymore. Patient will be admitted to the hospital will obtain blood culture, we'll ask orthopedic surgery for consultation for hardware removal and placement of antibiotic spacer, I will start the patient on IV antibiotic in the form of nafcillin for gram IV piggyback every 4 hours, obtain ID consultation, cardiology consultation, as well as orthopedic consultation we will organize his treatment plan and the patient will likely will require to go back to [facility] for physical therapy and rehabilitation 02/24: Patient has been seen by cardiology, Dr. Valencia, and cleared for Plavix to be held, continue aspirin. Orthopedics is following and made patient nothing by mouth with plan for stayed with one revision left total knee arthroplasty tomorrow. Dr. Cedillo is recommending continuing nafcillin, Hydrofera Blue dressing to the sacral pressure ulcer. Patient has been afebrile, heart rate 71, blood pressure 137/78, pulse ox 90% on room air. WBC 3.8, hemoglobin 9.8, platelet count 241. Blood sugars are running between 110 and 225. Blood culture no growth at 24 hours. 02/25: Patient has been afebrile, heart rate 99, blood pressure 120/81, pulse ox 90% on room air. Blood sugars are running between 120 461. He is scheduled for surgery today with orthopedics. Patient states he is having more and more pain in his knee. He is also continued complaining of constipation for which Senokot S and lactulose scheduled. Discussed discharge plan with the patient and he is planning to go home with home care, daughter is going to stop in in the morning and get him TV dinners. He also has a wheelchair that he plans to scoot around in.. This may not be the best discharge plan for him and will be rate addressed closer to discharge time. Awaiting finalization of blood culture to order PICC line insertion. Patient is continued on nafcillin. REVIEW OF SYSTEMS: Constitutional: negative for fever, or chills, no night sweats, fatigue , positive for weight loss. HEENT: No headache. No blurred vision or double vision, no loss of vision. No loss of Hearing, no ringing in the ears, no dizziness. No nasal drainage or congestion. No epistaxis. No sore throat. Respiratory: No shortness of breath, no cough, no sputum production. No wheezing. Reports dyspnea with activity. Cardiovascular: No chest pain, no lower extremity edema. No palpitations. No paroxysmal nocturnal dyspnea. No orthopnea. No lightheadedness or dizziness. No syncopal episodes. Gastrointestinal: Reports no abdominal pain. No nausea, vomiting. No diarrhea. No constipation. No bloody or tarry stools reports loss of appetite. Genitourinary: No dysuria, increased frequency, urgency. No urinary retention. Musculoskeletal: Positive for myalgias. positive for muscle weakness, Positive for gait dysfunction, no frequent falls, positive for severe left knee pain, locking,and swelling positive for low back pain . Integumentary: No wounds, no lesions. No rash or pruritus. brpositive for bruising. No change in hair or nails. Neurologic: No aphasia. No facial droop. No change in mentation. No head injury. No headache. No paralysis. No paresthesia. Psychiatric: No depression. No anxiety. No mood swings. Endocrine: Noted abnormal blood sugars. No weight change. PHYSICAL EXAMINATION: General: This is 75-year-old male who appears to be in no distress. HEENT: Head is atraumatic, normocephalic, pupils were equal round reactive to light and recommendation, extraocular muscle movement were intact, sclera nonicteric, conjunctivae were pale, mucous membranes of the mouth are somewhat dry. Neck: Supple, no JVP, normal carotid upstroke bilaterally, no lymphadenopathy. Chest: Decreased breath sounds at the bases, few rhonchi, no extremity wheezes, no chest wall tenderness, no intercostal retractions. Heart: First heart sound is normal, second heart sound is normal there is systolic ejection murmur 2/6 left sternal border. Abdomen: Soft, nontender, nondistended, positive bowel sounds, no hepa tosplenomegaly Extremities: There is no edema no calf tenderness DP + 1 bilaterally, left knee with significant edema and significant tenderness with decreased range of motion. Skin: There is a crescent shaped stage 2-3 decubitus ulcer in the coccyx area with clean granulation tissue at the base, we'll continue currently with Hydrofera Blue wound dressing as per infectious disease. Neurologic examination: Patient is awake alert and oriented X3, cranial nerves II-12 appear grossly intact, muscle power were 5 out of 5 in upper extremities and 4 out of 5 in the right lower extremity and 2 out of 5 in the left lower extremity due to pain. ASSESSMENT AND PLAN: 1. MSSA left knee joint infection. Patient is scheduled for Stage 1 Revision left total knee arthroplasty, continue the patient on IV antibiotic in the form of nafcillin 2 gram IV piggyback every 4 hours, blood cultures in process. Wound cultures to be obtained in the OR. Patient is followed by infectious disease. Patient will require a PICC line placement once blood cultures are finalized without growth. 2. stage III crescent shaped decubitus ulcer in the coccyx area. Continue with current dressing as per ID, turn the patient every 2 hours, keep off his back at all the time along with adding Glucerna TID. 3. History of recent septic arthritis of the left knee and MSSA bacteremia s/p debridement of the left knee i the past and now will need definitive treatment with removal of the hardware and placement of Antibiotic spacer. 4. Recent left heart catheterization with PCI of the RCA on 07/30/2020 Continue patient on aspirin 81 g once every day, discontinue Plavix, continue metoprolol 50 mg orally twice every day, continue atorvastatin 80 mg orally once every day. 5. Hypertension and hypertensive cardiovascular disease. Continue metoprolol 50 mg orally twice every day. 6. Hyperlipidemia. Continue patient on atorvastatin 80 mg orally once every day. 7. Diabetes mellitus type 2. Start the patient on Farxiga 5 mg orally daily along with SSI and Janumet 100/1000 g orally once every day, monitor glucose level before each meal and at bedtime. 8. History of prostate cance status post rotation. Stable at this time. 9. 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 Continue current pain management. 10. DVT prophylaxis. Lovenox 40 mg subcutaneously every 24 hours. 11. GI prophylaxis. Protonix 40 mg orally twice daily. Patient is full code. DISCHARGE PLAN Home with [facility]. Impression and plan of care have been directed as dictated by the signing physician. Padma Monsalve nurse practitioner acting as scribe for signing physician. Objective - Vital Signs Vital signs: Vital Signs Temp 97.5 F L 02/25/21 01:55 Pulse 76 02/25/21 01:55 Resp 20 02/24/21 14:00 BP 100/57 02/25/21 01:55 Pulse Ox 96 02/25/21 01:55 Intake & Output 02/24/21 02/25/21 02/25/21 18:59 06:59 18:59 Output Total 500 Balance -500 Weight 90.718 kg Output: Urine 500 Other: # Voids 4 # Bowel Movements 0 - Labs CBC & Chem 7: 02/24/21 05:30 02/24/21 05:30 Labs: Abnormal Lab Results - Last 24 Hours (Table) 02/24/21 02/24/21 02/24/21 Range/Units 05:30 05:30 11:51 WBC 3.85 L (4.50-10.00) X 10*3/uL RBC 3.50 L (4.40-5.60) X 10*6/uL Hgb 9.8 L (13.0-17.0) g/dL Hct 32.0 L (39.6-50.0) % MCHC 30.6 L (32.0-37.0) g/dL RDW 15.6 H (11.5-14.5) % Lymphocytes # 0.70 L (0.90-5.00) X 10*3/uL Eosinophils # 0 L (0.04-0.35) X 10*3/uL Anion Gap 18.90 H (4.00-12.00) mmol/L BUN/Creatinine Ratio 25.46 H (12.00-20.00) Ratio Glucose 122 H (70-110) mg/dL POC Glucose (mg/dL) 161 H (75-99) mg/dL Calcium 8.6 L (8.7-10.3) mg/dL AST 13 L (14-35) U/L ALT 8 L (10-49) U/L Total Protein 5.6 L (6.2-8.2) g/dL Albumin 3.2 L (3.8-4.9) g/dL Albumin/Globulin Ratio 1.34 L (1.60-3.17) g/dL 02/24/21 02/24/21 02/25/21 Range/Units 16:46 21:15 06:59 WBC (4.50-10.00) X 10*3/uL RBC (4.40-5.60) X 10*6/uL Hgb (13.0-17.0) g/dL Hct (39.6-50.0) % MCHC (32.0-37.0) g/dL RDW (11.5-14.5) % Lymphocytes # (0.90-5.00) X 10*3/uL Eosinophils # (0.04-0.35) X 10*3/uL Anion Gap (4.00-12.00) mmol/L BUN/Creatinine Ratio (12.00-20.00) Ratio Glucose (70-110) mg/dL POC Glucose (mg/dL) 134 H 145 H 124 H (75-99) mg/dL Calcium (8.7-10.3) mg/dL AST (14-35) U/L ALT (10-49) U/L Total Protein (6.2-8.2) g/dL Albumin (3.8-4.9) g/dL Albumin/Globulin Ratio (1.60-3.17) g/dL Microbiology - Last 24 Hours (Table) 02/23/21 12:51 Blood Culture - Preliminary Blood No Growth after 24 hours 02/23/21 12:49 Blood Culture - Preliminary Blood No Growth after 24 hours 02/23/21 09:45 Blood Culture - Preliminary Blood No Growth after 24 hours 02/23/21 09:30 Blood Culture - Preliminary Blood No Growth after 24 hours
[2021-02-25] MEDS: ENOXAPARIN 40 MG/0.4 ML SYRINGE SQ SCH (08:45)
[2021-02-25] MEDS: LINAGLIPTIN 5 MG TABLET PO SCH (08:46)
[2021-02-25] MEDS: metFORMIN 500 MG TAB PO SCH ×2 (08:47→22:38)
[2021-02-25] MEDS: ASPIRIN 81 MG PO SCH (08:53)
[2021-02-25] MEDS: LACTOBACILLUS ACIDOPH & BULGAR 1 EACH PACKET PO SCH ×2 (09:04→22:38)
[2021-02-25] MEDS: LACTULOSE 20 GM/30 ML CUP PO SCH ×2 (09:04→22:38)
[2021-02-25] MEDS: SENNOSIDES-DOCUSATE SODIUM 1 EACH TAB PO SCH (09:05)
[2021-02-25] MEDS: PANTOPRAZOLE 40 MG TABLET PO SCH (09:07)
[2021-02-25] MEDS: METOPROLOL TARTRATE 50 MG TAB PO SCH ×2 (09:07→22:38)
[2021-02-25] MEDS: LACTATED RINGERS 1,000 ML IV SCH ×3 (09:10→13:33)
[2021-02-25 11:32] LABS: Glucose,Whole Blood 129 mg/dL (75-99)
--- NOTE | 2021-02-25 11:44 | P.PN ---
Subjective This is a 75-year-old male past medical history of coronary artery disease, hypertension, hyperlipidemia, type 2 diabetes, decubitus ulcer s/p debridement, prior history of smoking. Patient presents emergency department with progressive discomfort in the left knee was diagnosed with an infected left knee prosthesis. Cardiology was consulted for cardiac clearance for surgery. Patient seen and examined at bedside, no acute distress. She denies any chest pain, shortness of breath, nausea, vomiting, dizziness, palpitations, lightheadedness. His pain is left knee is currently controlled. labs pending for today. He's currently maintained on aspirin milligrams daily, atorvastatin 80 mg nightly, metoprolol tartrate 50 mg twice a day, SQ lovenox, metformin, Tradjenta, lactulose, protonix. Plavix held for surgery. GENERAL: Well-appearing, well-nourished and in no acute distress. NECK: Supple without JVD LUNGS: Breath sounds clear to auscultation bilaterally. Respiration equal and unlabored. No wheezes, rales or rhonchi. HEART: Regular rate and rhythm Systolic ejection murmur at base. S1 and S2 heard. EXTREMITIES: Normal range of motion. Left knee with significant swelling. No clubbing or cyanosis. Peripheral pulses intact. SKIN: Decubitus ulcer on coccyx. ASSESSMENT: Infected left knee prosthesis, scheduled to undergo removal of the hardware and placement of a spacer History of coronary disease status post multiple PCI, most recently in July 2020 at [facility] History of hypertension Hyperlipidemia Type 2 diabetes Sacral pressure ulcer, healing PLAN: -From a cardiology perspective, ok to hold plavix, it has been 6 months since his PCI. Patient is able to perform >4 METs levels of activity and does not have any acute cardiac conditions. There are no absolute contraindications to undergo surgery at this time. Depending on his progress, further recommendations will be made. Objective - Vital Signs Vital signs: Vital Signs Temp 98.1 F 02/25/21 07:58 Pulse 99 02/25/21 07:58 Resp 18 02/25/21 07:58 BP 120/81 02/25/21 07:58 Pulse Ox 98 02/25/21 07:58 Intake & Output 02/24/21 02/25/21 02/25/21 18:59 06:59 18:59 Output Total 500 Balance -500 Weight 90.718 kg Output: Urine 500 Other: # Voids 4 # Bowel Movements 0 - Labs CBC & Chem 7: 02/24/21 05:30 02/24/21 05:30 Labs: Abnormal Lab Results - Last 24 Hours (Table) 02/24/21 02/24/21 02/24/21 Range/Units 05:30 11:51 16:46 Anion Gap 18.90 H (4.00-12.00) mmol/L BUN/Creatinine Ratio 25.46 H (12.00-20.00) Ratio Glucose 122 H (70-110) mg/dL POC Glucose (mg/dL) 161 H 134 H (75-99) mg/dL Calcium 8.6 L (8.7-10.3) mg/dL AST 13 L (14-35) U/L ALT 8 L (10-49) U/L Total Protein 5.6 L (6.2-8.2) g/dL Albumin 3.2 L (3.8-4.9) g/dL Albumin/Globulin Ratio 1.34 L (1.60-3.17) g/dL 02/24/21 02/25/21 02/25/21 Range/Units 21:15 06:59 11:31 Anion Gap (4.00-12.00) mmol/L BUN/Creatinine Ratio (12.00-20.00) Ratio Glucose (70-110) mg/dL POC Glucose (mg/dL) 145 H 124 H 129 H (75-99) mg/dL Calcium (8.7-10.3) mg/dL AST (14-35) U/L ALT (10-49) U/L Total Protein (6.2-8.2) g/dL Albumin (3.8-4.9) g/dL Albumin/Globulin Ratio (1.60-3.17) g/dL Microbiology - Last 24 Hours (Table) 02/23/21 12:51 Blood Culture - Preliminary Blood No Growth after 24 hours 02/23/21 12:49 Blood Culture - Preliminary Blood No Growth after 24 hours 02/23/21 09:45 Blood Culture - Preliminary Blood No Growth after 24 hours 02/23/21 09:30 Blood Culture - Preliminary Blood No Growth after 24 hours
[2021-02-25 12:53] LABS: Glucose,Whole Blood 132 mg/dL (75-99)
[2021-02-25] MEDS ORDERED: fentaNYL (PF) 50 MCG/ML 2 ML AMP ONE (13:29)
[2021-02-25] MEDS ORDERED: MIDAZOLAM 2 MG/2 ML VIAL ONE (13:29)
[2021-02-25] MEDS ORDERED: SUCCINYLCHOLINE CHLORIDE 100 MG/5 ML SYR IV ONE (13:29)
[2021-02-25] MEDS ORDERED: HYDROmorphone (PF) 1 MG/ML ONE (13:29)
[2021-02-25] MEDS ORDERED: PROPOFOL 10 MG/ML 20 ML VIAL IV ONE (13:29)
[2021-02-25] MEDS ORDERED: ceFAZolin 1,000 MG in SODIUM CHLORIDE 0.9% 1,000 ML IRRIGATION ONE (13:33)
[2021-02-25] MEDS ORDERED: HYDROmorphone 0.5 MG/0.5 ML SYRINGE IVP PRN (14:28)
[2021-02-25] MEDS ORDERED: MAGNESIUM HYDROXIDE 2,400 MG/10 ML CUP PO PRN (14:28)
[2021-02-25] MEDS ORDERED: HYDROmorphone 0.2 MG/1 ML SYRINGE IVP PRN (14:28)
[2021-02-25] MEDS ORDERED: ONDANSETRON 4 MG/2 ML VIAL IVP PRN (14:28)
[2021-02-25] MEDS ORDERED: NALOXONE 0.4 MG/ML 1 ML VIAL IV PRN (14:28)
[2021-02-25] MEDS ORDERED: HYDROcodone/APAP 7.5-325MG 1 EACH TAB PO PRN (14:30)
[2021-02-25] MEDS ORDERED: LACTATED RINGERS 1,000 ML IV ONE (14:47)
--- NOTE | 2021-02-25 14:59 | P.OP ---
Date of Procedure: 02/25/21 Preoperative Diagnosis: Infected left total knee arthroplasty Postoperative Diagnosis: Infected left total knee arthroplasty Procedure(s) Performed: Stage I revision left total knee arthroplasty with removal of components and placement of antibiotic spacer Implants: Remedy femoral component size medium Remedy tibial component size large Antibiotic Simplex P cement with tobramycin 3 Anesthesia: GETA Surgeon: Raji Choi Director Software Quality Assurance #1: Paola Xiao Estimated Blood Loss (ml): 100 Pathology: other (Cultures 2) Condition: stable Disposition: PACU Indications for Procedure: This is a 75-year-old gentleman that has been known to have an infection in his left total knee. He has failed conservative treatment and now presents for stage I revision of his left total knee with removal of components and placement of antibiotic spacer. Informed consent was obtained. Operative Findings: The operative findings are consistent with an infection left total knee arthroplasty. Description of Procedure: Patient was seen in the preoperative area consent was reviewed and operative site was marked with a skin marker. A general anesthetic was administered by the anesthesia department. A tourniquet was placed on the upper thigh and the lower extremity was prepped and draped in usual sterile fashion. A universal timeout was then performed which confirmed the patient's name, surgical site, ALLERGIES, and consent. The lower extremity was elevated and tourniquet was inflated to 250 mmHg. A standard and anterior midline approach to the knee was performed, with the prior scar being removed. The skin and subcutaneous tissue was dissected down to the patellar tendon. A medial parapatellar arthrotomy was then performed. A large amount of purulent material was encountered and this was cultured 2 . The knee was then extended, the patellar was everted, and the knee was again flexed. The prosthesis was then evaluated and the components were found to be well fixed. Using a small oscillating saw, the cement implant interface was disrupted and the femoral and tibial components were then removed without difficulty. The patellar component was also removed. After all the components were then removed, and extensive debridement was performed of the synovium sharply with a knife and also with a Rominger. The cut surfaces of the bone were also freshened with a saw. The knee was then copiously irrigated with pulsatile lavage. Antibiotic spacer was then sized and trial components were placed. When the appropriate-sized spacer was decided upon, the components were opened. The cut surfaces of bone were then again irrigated with pulsatile lavage. The knee was also irrigated with Irrisept solution. The components were then opened, the cement was mixed, and the components were then loosely cemented in place. The cement was allowed to harden with the knee in full extension. The tourniquet was released, and hemostasis was obtained. The knee was again irrigated. The knee was again taken through range of motion and found to be stable throughout all range of motion of 0-130, and the patella tracked normally. The fascia was then closed with #2 strata fix suture. The subcutaneous tissue was closed with 3-0 Vicryl. The skin was then closed with jose david. The patient was placed in a sterile silver dressing. Patient was then transferred to recovery room in stable condition. The environmental engineering assistant TANA Emerson was required due the complexity surgery and the need for a skilled surgical attendant. She assisted in positioning, draping, retraction, and closure of the wound.
[2021-02-25] MEDS ORDERED: HYDROmorphone 0.5 MG/0.5 ML SYRINGE IVP ONE ×3 (15:40→15:52)
[2021-02-25 15:50] LABS: Glucose,Whole Blood 165 mg/dL (75-99)
--- NOTE | 2021-02-25 16:02 | XR ---
Limited left knee HISTORY: Postop 2 views left knee Relation to prior exam 02/23/2021 Patient's knee arthroplasty has been removed, antibiotic spacer is thought to be present. There is jasmeet cency in the soft tissues. Overlying jose david are noted. There is some mild posterior subluxation of t he proximal tibia in relation to the distal femur, femoral component does not appear to be well seate d in the central portion of the tibial component on the lateral view. Vascular calcifications are not ed. Bone mineralization is reduced. There is likely joint effusion. Some lateral subluxation of the p atella is noted similar to prior exam. IMPRESSION: Orthopedic follow-up as described.
[2021-02-25 16:36] LABS: Glucose,Whole Blood 168 mg/dL (75-99)
[2021-02-25] MEDS: SODIUM CHLORIDE 0.9% 1,000 ML IV SCH ×2 (16:50→17:11)
[2021-02-25] MEDS ORDERED: ASPIRIN 81 MG PO SCH (21:00)
[2021-02-25] MEDS: ATORVASTATIN 80 MG TAB PO SCH (22:37)
[2021-02-25] MEDS: NON FORMULARY DRUG (Dapagliflozin Propanediol [Farxiga] 5 MG Tablet) PO SCH (22:39)
[2021-02-25 22:49] LABS: Glucose,Whole Blood 159 mg/dL (75-99)
[2021-02-25] MEDS: HYDROcodone/APAP 7.5-325MG 1 EACH TAB PO PRN (23:17)
--- NOTE | 2021-02-25 23:24 | PN ---
PROGRESS NOTE DATE OF SERVICE: 02/25/2021 REASON FOR FOLLOWUP: 1. Left knee septic arthritis. 2. Sacral wound. INTERVAL HISTORY: The patient was taken to the OR this afternoon. The patient is status post stage I revision of the left total knee arthroplasty and placement of antibiotic spacer. The patient denies having any chest pain or shortness of breath or cough. No abdominal pain pain to the lower back area. PHYSICAL EXAMINATION: Blood pressure 133/70 with a pulse of 94, temperature is 98.2. He is 96% on room air. General description is an elderly male lying in bed in no distress. Respiratory system: Unlabored breathing, clear to auscultation anteriorly. Heart S1, S2. Regular rate and rhythm. Abdomen soft, no tenderness. LABS: Cultures remain negative so far. DIAGNOSTIC IMPRESSION AND PLAN: 1. Patient with left knee septic arthritis, status post stage I revision. Previous culture positive for MSSA. Patient is covered with nafcillin, awaiting a PICC line for outpatient antibiotic therapy for 6 weeks. 2. Sacral wound. No cellulitis. Local wound care with Hydrofera dressing. Keep the area off pressure. MMODL / IJN: [id number] /
[2021-02-26] MEDS: HYDROmorphone 0.5 MG/0.5 ML SYRINGE IVP PRN ×6 (00:39→20:19)
[2021-02-26] MEDS: NAFCILLIN 2 GM in DEXTROSE 5% IN WATER 100 ML IVPB SCH ×12 (01:40→20:50)
[2021-02-26 07:25] LABS: Glucose,Whole Blood 156 mg/dL (75-99)
--- NOTE | 2021-02-26 08:28 | P.GSCN ---
History of Present Illness Consult date: 02/26/21 History of present illness: 75-year-old gentleman in the hospital with an infected left knee prosthesis. He had removal of the prosthesis yesterday with placement of antibiotic spacer. He has had problems urinating postoperatively. We are asked see the patient for th is reason. He also has phimosis. Paraphimosis has been present for some time. He saw in the office and a circumcision will eventually be scheduled however the knee had to be dealt with first. He also has a sacral decubitus after being in the hospital with a septic event probably related to the knee and eventual rehab at [facility]. The nursing staff has catheterize him twice with a straight catheter. Urologically other than spraying of the urine related to the phimosis he states that he does not have any other problems urinating. He has not been on any medication to assist in urination Review of Systems All systems: negative - Constitutional Denies fever, Denies weight loss - EENT Eyes: denies blurred vision Ears, nose, mouth and throat: Denies dysphagia - Cardiovascular Denies chest pain, Denies shortness of breath - Respiratory Denies cough, Denies 7 - Gastrointestinal Reports as per HPI - Genitourinary Denies dysuria, Denies hematuria - Integumentary Denies rash, Denies unusual bruising - Neurological Denies headaches, Denies syncope - Hematologic/Lymphatic Denies easy bleeding, Denies easy bruising Past Medical History Past Medical History: Atrial Fibrillation, Coronary Artery Disease (CAD), Cancer, Chest Pain / Angina, Diabetes Mellitus, GERD/Reflux, Hyperlipidemia, Hypertension, Osteoarthritis (OA), Prostate Disorder Additional Past Medical History / Comment(s): 5 Herniated discs in neck causing headaches & numbness in arm and right lower back and pain and right leg pain. Hx 4 fx ribs, current Prostate Cancer- last radiation tx Mar 25-2016 had total of 44 tx. occ constipation, Last Myocardial Infarction Date:: UNKOWN History of Any Multi-Drug Resistant Organisms: VRE Year Discovered:: 09/18/20 MDRO Source:: Wound Past Surgical History: Adenoidectomy, Heart Catheterization, Heart Catheterization With Stent, Joint Replacement, Orthopedic Surgery, Tonsillectomy Additional Past Surgical History / Comment(s): PROSTATE BX., LT. KNEE ARTHROSCOPY X 2, CERVICAL FUSIONS, COLONOSCOPY, ÁNGEL. CATARTACTS.Pain Procedures , rt radio frequency procedures. , total 3 heart stents, hemorrhoidectomy,heart cath August 2017-lt knee replacement. Stent replacement Past Anesthesia/Blood Transfusion Reactions: No Reported Reaction Additional Past Anesthesia/Blood Transfusion Reaction / Comm: doesn't like enclosed tight spaces Date of Last Stent Placement:: 04/24/17 Past Psychological History: No Psychological Hx Reported Smoking Status: Former smoker Past Alcohol Use History: None Reported Past Drug Use History: None Reported - Past Family History Father Additional Family Medical History / Comment(s): Father at age 49 from coronary artery disease. Brother(s) Additional Family Medical History / Comment(s): Patient has one brother with history of smoking and no other major medical problems. Patient does not have any sisters. Daughter(s) Additional Family Medical History / Comment(s): He has one daughter alive in [place] with no major medical problems. Patient has one daughter with history of muscular dystrophy and of pneumonia. Son(s) Family Medical History: No Reported History Additional Family Medical History / Comment(s): Patient has one son with no major medical problems. Mother Family Medical History: Cancer Additional Family Medical History / Comment(s): Mother at age 81 from uterine cancer with metastatic disease. Medications and Allergies Home Medications Medication Instructions Recorded Confirmed Type Aspirin [[place] Aspirin EC] 81 mg PO DAILY 08/05/20 02/23/21 History Acetaminophen Tab [Tylenol] 1,000 mg PO Q6HR PRN 09/01/20 02/23/21 History Atorvastatin [Lipitor] 80 mg PO HS 09/01/20 02/23/21 History Clopidogrel [Plavix] 75 mg PO DAILY 09/01/20 02/23/21 History Metoprolol Tartrate [Lopressor] 50 mg PO BID 09/17/20 02/23/21 History Dapagliflozin Propanediol [Farxiga] 5 mg PO HS 02/23/21 02/23/21 History HYDROcodone/APAP 10-325MG [[place] 1 tab PO Q6H PRN 02/23/21 02/23/21 History 10-325] sitaGLIPtin PHOS/metFORMIN HCL 1 tab PO DAILY 02/23/21 02/23/21 History [Janumet Xr 100-1,000 mg Tablet] Allergies Allergy/AdvReac Type Severity Reaction Status Date / Time No Known Allergies Allergy Verified 02/23/21 10:49 Surgical - Exam Vital Signs Temp Pulse Resp BP Pulse Ox 97.2 F L 121 H 18 113/75 97 02/23/21 08:42 02/23/21 08:42 02/23/21 08:42 02/23/21 08:42 02/23/21 08:42 - General well developed, well nourished, no distress - Eyes PERRL - ENT no hearing loss - Neck trachea midline - Respiratory normal respiratory effort - Cardiovascular Rhythm: regular - Abdomen Abdomen: soft, non tender - Genitourinary Marked phimosis but palpably normal penis. Normal testes scrotum. - Integumentary no growths - Neurologic normal sensation - Musculoskeletal A wraparound the recent left knee surgery normal posture - Psychiatric oriented to time, oriented to person, oriented to place, speech is normal, memory intact Results - Labs 02/24/21 05:30 02/24/21 05:30 Abnormal Lab Results - Last 24 Hours (Table) 02/25/21 02/25/21 02/25/21 Range/Units 11:31 12:49 15:47 POC Glucose (mg/dL) 129 H 132 H 165 H (75-99) mg/dL 02/25/21 02/25/21 02/26/21 Range/Units 16:35 22:47 07:25 POC Glucose (mg/dL) 168 H 159 H 156 H (75-99) mg/dL Microbiology - Last 24 Hours (Table) 02/25/21 13:56 Wound Culture - Preliminary Knee - Left 02/25/21 13:56 Anaerobic Culture - Preliminary Knee - Left 02/25/21 13:56 Wound Culture - Preliminary Knee - Left 02/25/21 13:56 Anaerobic Culture - Preliminary Knee - Left 02/23/21 12:51 Blood Culture - Preliminary Blood No Growth after 48 hours 02/23/21 12:49 Blood Culture - Preliminary Blood No Growth after 48 hours 02/23/21 09:30 Blood Culture - Preliminary Blood No Growth after 48 hours 02/23/21 09:45 Blood Culture - Preliminary Blood No Growth after 48 hours Assessment and Plan Assessment: Impression: Postoperative urinary retention. Phimosis. Recommendation: The patient is still unable to urinate a Shelley catheter should be placed. If the cath has difficulty passing the catheter he may need a dorsal slit. The patient should have an elective circumcision before he has a new knee prosthetic placed. I will also start him on tamsulosin. This has been discussed with Dr. Astudillo and the patient.
[2021-02-26] MEDS: LACTOBACILLUS ACIDOPH & BULGAR 1 EACH PACKET PO SCH ×2 (08:52→20:51)
[2021-02-26] MEDS: HYDROcodone/APAP 7.5-325MG 1 EACH TAB PO PRN ×3 (08:53→22:39)
[2021-02-26] MEDS: metFORMIN 500 MG TAB PO SCH ×2 (08:55→20:51)
[2021-02-26] MEDS: CLOPIDOGREL 75 MG TAB PO SCH (08:55)
[2021-02-26] MEDS: ASPIRIN 81 MG PO SCH (08:56)
[2021-02-26] MEDS: PANTOPRAZOLE 40 MG TABLET PO SCH (08:56)
[2021-02-26] MEDS: SENNOSIDES-DOCUSATE SODIUM 1 EACH TAB PO SCH (08:56)
[2021-02-26] MEDS: METOPROLOL TARTRATE 50 MG TAB PO SCH ×2 (08:57→20:51)
[2021-02-26] MEDS: LACTULOSE 20 GM/30 ML CUP PO SCH ×2 (08:58→20:51)
[2021-02-26] MEDS: LINAGLIPTIN 5 MG TABLET PO SCH (08:58)
[2021-02-26] MEDS: INSULIN ASPART (NovoLOG) 100 UNIT/ML VIAL SQ SCH ×4 (09:00→20:50)
[2021-02-26] MEDS: ENOXAPARIN 40 MG/0.4 ML SYRINGE SQ SCH (09:15)
[2021-02-26] MEDS: TAMSULOSIN 0.4 MG CAP.ER.24H PO SCH (09:15)
[2021-02-26 10:02] LABS: Basophils # (A) 0.03 X 10*3/uL (0.00-0.10); Basophils % (A) 0.5 %; Eosinophils # (A) 0 X 10*3/uL (0.04-0.35); Eosinophils % (A) 0 %; HCT 28.3 % (39.6-50.0); HGB 8.8 g/dL (13.0-17.0); Lymphocytes % (A) 16.4 %; MCH 28.5 pg (27.0-32.0); MCHC 31.1 g/dL (32.0-37.0); MCV 91.6 fL (80.0-97.0); Mean Platelet Volume 9.9 fL (9.5-12.2); Monocytes % (A) 12.8 %; Neutrophils # (A) 3.84 X 10*3/uL (1.80-7.70); Neutrophils % (A) 69.9 %; Platelet Count 285 X 10*3/uL (140-440); RBC 3.09 X 10*6/uL (4.40-5.60); RDW 15.9 % (11.5-14.5); WBC 5.49 X 10*3/uL (4.50-10.00)
--- NOTE | 2021-02-26 10:56 | P.PN ---
Subjective Progress Note Date: 02/26/21 Principal diagnosis: Infected total left knee arthroplasty. Status post stage I revision total left knee arthroplasty. This is a 75-year-old gentleman that has been known to have an infection in his left total knee. He has failed conservative treatment and now presents for stage I revision of his left total knee with removal of components and placement of antibiotic spacer. The patient is postop day #1 status post stage I revision left total knee. He is complaining of severe pain. He denies fever or chills. No nausea or vomiting. No history of diarrhea. Vital signs and labs are stable. Culture pending. Gram stain shows no organisms. Objective - Vital Signs Vital signs: Vital Signs Temp 98.5 F 02/26/21 07:51 Pulse 84 02/26/21 07:51 Resp 18 02/26/21 07:51 BP 106/69 02/26/21 07:51 Pulse Ox 94 L 02/26/21 07:51 Intake & Output 02/25/21 02/26/21 02/26/21 18:59 06:59 18:59 Intake Total 1601 Output Total 500 0 1000 Balance 1101 0 -1000 Intake: IV 1601 Output: Urine 400 1000 Uretheral (Shelley) 500 Post Void Residual 0 Estimated Blood Loss 100 - Exam This is a 75-year-old male in no acute distress. He is alert and oriented 3. He is complaining of severe pain in the left knee. He is holding his knee in a 90 flexed position. There is sanguinous saturation through the dressing. Dressing is changed today. Incision looks good. There is minimal active drainage from the distal incision at this time. There is no erythema. Mild to moderate soft tissue swelling. He has full foot and ankle motion. Neurovascular status to the lower extremity is intact. - Labs CBC & Chem 7: 02/26/21 05:33 02/24/21 05:30 Labs: Abnormal Lab Results - Last 24 Hours (Table) 02/25/21 02/25/21 02/25/21 Range/Units 11:31 12:49 15:47 RBC (4.40-5.60) X 10*6/uL Hgb (13.0-17.0) g/dL Hct (39.6-50.0) % MCHC (32.0-37.0) g/dL RDW (11.5-14.5) % Eosinophils # (0.04-0.35) X 10*3/uL POC Glucose (mg/dL) 129 H 132 H 165 H (75-99) mg/dL 02/25/21 02/25/21 02/26/21 Range/Units 16:35 22:47 05:33 RBC 3.09 L (4.40-5.60) X 10*6/uL Hgb 8.8 L (13.0-17.0) g/dL Hct 28.3 L (39.6-50.0) % MCHC 31.1 L (32.0-37.0) g/dL RDW 15.9 H (11.5-14.5) % Eosinophils # 0 L (0.04-0.35) X 10*3/uL POC Glucose (mg/dL) 168 H 159 H (75-99) mg/dL 02/26/21 Range/Units 07:25 RBC (4.40-5.60) X 10*6/uL Hgb (13.0-17.0) g/dL Hct (39.6-50.0) % MCHC (32.0-37.0) g/dL RDW (11.5-14.5) % Eosinophils # (0.04-0.35) X 10*3/uL POC Glucose (mg/dL) 156 H (75-99) mg/dL Microbiology - Last 24 Hours (Table) 02/25/21 13:56 Gram Stain - Preliminary Knee - Left Wound Culture - Preliminary 02/25/21 13:56 Anaerobic Culture - Preliminary Knee - Left 02/25/21 13:56 Wound Culture - Preliminary Knee - Left 02/25/21 13:56 Anaerobic Culture - Preliminary Knee - Left 02/23/21 12:51 Blood Culture - Preliminary Blood No Growth after 48 hours 02/23/21 12:49 Blood Culture - Preliminary Blood No Growth after 48 hours 02/23/21 09:30 Blood Culture - Preliminary Blood No Growth after 48 hours 02/23/21 09:45 Blood Culture - Preliminary Blood No Growth after 48 hours Assessment and Plan (1) Status post revision of total replacement of left knee Current Visit: Yes Status: Acute Code(s): Z96.652 - PRESENCE OF LEFT ARTIFICIAL KNEE JOINT SNOMED Code(s): 286234188585798 (2) Septic joint of left knee joint Current Visit: Yes Status: Acute Code(s): M00.9 - PYOGENIC ARTHRITIS, UNSPECIFIED SNOMED Code(s): 864479783 (3) S/P total knee arthroplasty Current Visit: No Status: Acute Code(s): Z96.659 - PRESENCE OF UNSPECIFIED ARTIFICIAL KNEE JOINT SNOMED Code(s): 2921006940906 Plan: The clinical findings are discussed with the patient. His dressing is changed today. The Optifoam is removed due to saturation. We did not have an Optifoam dressing available on the floor. Adaptic, Telfa and ABDs are applied with a double 4 inch Praneeth wrap. The patient tolerated the dressing change fairly well. Continue current care. Patient will most likely require inpatient rehab.
[2021-02-26 11:48] LABS: Glucose,Whole Blood 201 mg/dL (75-99)
[2021-02-26 12:40] LABS: African American GFR (CKD) 62.6 (60.0-200.0); Albumin 3.1 g/dL (3.8-4.9); Albumin/Globulin Ratio 1.36 (1.60-3.17); Anion Gap 10.9 mmol/L (4.00-12.00); BUN/Creat Ratio 19.84 Ratio (12.00-20.00); Blood Urea Nitrogen 25.4 mg/dL (9.0-27.0); Calcium 8.3 mg/dL (8.7-10.3); Carbon Dioxide 25.3 mmol/L (21.6-31.8); Globulin 2.3 g/dL (1.6-3.3); Potassium 4.7 mmol/L (3.5-5.5); Total Bilirubin 0.3 mg/dL (0.30-1.20); Total Protein 5.4 g/dL (6.2-8.2)
--- NOTE | 2021-02-26 13:51 | P.PN ---
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 as well as radio frequency ablation, prostate cancer status post radiation therapy, patient took himself off the Plavix due to significant 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 Patient then had admission August 05 through August 16 at which time he was treated for septic arthritis of the left knee with persistent MSSA bacteremia status post I&D of the left total knee. He also suffered from lactic acidosis, thrombocytopenia secondary to sepsis, acute kidney injury. Patient was stabilized and discharged to [facility] for subacute rehab. Patient was continued on for a 6 week course, Unfortunately, patient developed C. difficile colitis treated with oral vancomycin. Patient has done very little physical therapy at that time and stayed in bed most the time, developed decubitus ulcer with worsening to the coccyx area, has been under the care of Dr. Cedillo for quite sometimes and his decubitus ulcer is getting a lot closer to heal, patient was seen in my office a few weeks back and he was seen earlier by Dr. Choi were recommended for the patient to go for removal of the hardware and placement of antibiotic spacer because of arthrocentesis that was done in 01/22/2021 which showed methicillin sensitive septic coccus aureus that is sensitive to penicillin and oxacillin and the patient was seen in the office for preoperative medical years however after discussing the matter with ID was recommended to hold off any surgical intervention until the decubitus ulcer healed completely patient presented to the emergency department today with increased swelling and pain in the left knee and patient decided to go for surgical intervention at this point in time because his could not take the pain anymore. Patient will be admitted to the hospital will obtain blood culture, we'll ask orthopedic surgery for consultation for hardware removal and placement of antibiotic spacer, I will start the patient on IV antibiotic in the form of nafcillin for gram IV piggyback every 4 hours, obtain ID consultation, cardiology consultation, as well as orthopedic consultation we will organize his treatment plan and the patient will likely will require to go back to [facility] for physical therapy and rehabilitation 02/24: Patient has been seen by cardiology, Dr. Valencia, and cleared for Plavix to be held, continue aspirin. Orthopedics is following and made patient nothing by mouth with plan for stayed with one revision left total knee arthroplasty tomorrow. Dr. Cedillo is recommending continuing nafcillin, Hydrofera Blue dressing to the sacral pressure ulcer. Patient has been afebrile, heart rate 71, blood pressure 137/78, pulse ox 90% on room air. WBC 3.8, hemoglobin 9.8, platelet count 241. Blood sugars are running between 110 and 225. Blood culture no growth at 24 hours. 02/25: Patient has been afebrile, heart rate 99, blood pressure 120/81, pulse ox 90% on room air. Blood sugars are running between 120 -161. He is scheduled for surgery today with orthopedics. Patient states he is having more and more pain in his knee. He is also continued complaining of constipation for which Senokot S and lactulose scheduled. Discussed discharge plan with the patient and he is planning to go home with home care, daughter is going to stop in in the morning and get him TV dinners. He also has a wheelchair that he plans to scoot around in.. This may not be the best discharge plan for him and will be rate addressed closer to discharge time. Awaiting finalization of blood culture to order PICC line insertion. Patient is continued on nafcillin. 02/26: Patient is status post stage I revision left total knee arthroplasty with removal of components and placement of antibiotic spacer yesterday trough. The patient is having urinary retention and required straight cath done 2 times during the night for 400 and then 500, consult with Dr. Ashley and patient will be scheduled for circumcision as an elective outpatient procedure. Shelley catheter will be placed to patient continues to have urinary retention. Patient is complaining of stiffness to the left knee with serosanguineous drainage. Patient has been afebrile, heart rate 84, blood pressure 106/69, pulse ox 94% on room air. Repeat blood work reveals WBC 5.4, hemoglobin 8.8, platelet count 285. A lateralized renal function are normal. Blood sugars are running between 125 and 201. Discharge planning has been changed to [facility] for subacute rehab. REVIEW OF SYSTEMS: Constitutional: negative for fever, or chills, no night sweats, fatigue , positive for weight loss. HEENT: No headache. No blurred vision or double vision, no loss of vision. No loss of Hearing, no ringing in the ears, no dizziness. No nasal drainage or congestion. No epistaxis. No sore throat. Respiratory: No shortness of breath, no cough, no sputum production. No wheezing. Reports dyspnea with activity which is chronic. Cardiovascular: No chest pain, no lower extremity edema. No palpitations. No paroxysmal nocturnal dyspnea. No orthopnea. No lightheadedness or dizziness. No syncopal episodes. Gastrointestinal: Reports no abdominal pain. No nausea, vomiting. No diarrhea. No constipation. No bloody or tarry stools reports loss of appetite. Genitourinary: No dysuria, increased frequency, urgency. Reported urinary retention. Musculoskeletal: Positive for myalgias. positive for muscle weakness, Positive for gait dysfunction, no frequent falls, positive for left knee pain status post surgery, positive for low back pain . Integumentary: No wounds, no lesions. No rash or pruritus. brpositive for bruising. No change in hair or nails. Neurologic: No aphasia. No facial droop. No change in mentation. No head injury. No headache. No paralysis. No paresthesia. Psychiatric: No depression. No anxiety. No mood swings. Endocrine: Noted abnormal blood sugars. No weight change. PHYSICAL EXAMINATION: General: This is 75-year-old male resting in bed and appears to be in no acute distress. HEENT: Head is atraumatic, normocephalic, pupils were equal round reactive to light and recommendation, sclera nonicteric, conjunctivae were pale, mucous membranes of the mouth are somewhat dry. Neck: Supple, no JVP, normal carotid upstroke bilaterally, no lymphadenopathy. Chest: Decreased breath sounds at the bases, few rhonchi, no extremity wheezes, no chest wall tenderness, no intercostal retractions. Heart: First heart sound is normal, second heart sound is normal there is systolic ejection murmur 2/6 left sternal border. Abdomen: Soft, nontender, nondistended, positive bowel sounds, no hepatosplenomegaly Extremities: There is no edema no calf tenderness DP + 1 bilaterally, left knee with significant edema and decreased range of motion. Dressing in place to the left knee. Skin: There is a crescent shaped stage 2-3 decubitus ulcer in the coccyx area with clean granulation tissue at the base, we'll continue currently with Hydrofera Blue wound dressing as per infectious disease. Neurologic examination: Patient is awake alert and oriented X3, cranial nerves II-12 appear grossly intact, muscle power were 5 out of 5 in upper extremities and 4 out of 5 in the right lower extremity and 2 out of 5 in the left lower extremity due to pain. ASSESSMENT AND PLAN: 1. MSSA left knee joint infection. Status post Stage 1 Revision left total knee arthroplasty, 02/25. Continue the patient on IV antibiotic in the form of nafcillin 2 gram IV piggyback every 4 hours, blood cultures in process. Wound c ultures obtained in the OR. Patient is followed by infectious disease. PICC has been ordered. 2. Stage III crescent shaped decubitus ulcer in the coccyx area. Continue with current dressing as per ID, turn the patient every 2 hours, keep off his back at all the time along with adding Glucerna TID. 3. History of recent septic arthritis of the left knee and MSSA bacteremia s/p debridement of the left knee i the past status post stage I revision left total knee arthroplasty. 4. Recent left heart catheterization with PCI of the RCA on 07/30/2020 Continue patient on aspirin 81 g once every day, discontinue Plavix, continue metoprolol 50 mg orally twice every day, continue atorvastatin 80 mg orally once every day. 5. Hypertension and hypertensive cardiovascular disease. Continue metoprolol 50 mg orally twice every day. 6. Hyperlipidemia. Continue patient on atorvastatin 80 mg orally once every day. 7. Diabetes mellitus type 2. Start the patient on Farxiga 5 mg orally daily along with SSI and Janumet 100/1000 g orally once every day, monitor glucose level before each meal and at bedtime. 8. History of prostate cance status post rotation. Stable at this time. 9. 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 Continue current pain management. 10. Urinary retention requiring Shelley catheter placement. Patient will need to circumcision as an elective procedure at a later date. 11. DVT prophylaxis. Lovenox 40 mg subcutaneously every 24 hours. 12. GI prophylaxis. Protonix 40 mg orally twice daily. Patient is full code. DISCHARGE PLAN [facility] for subacute rehab. Impression and plan of care have been directed as dictated by the signing p charan. Padma Monsalve nurse practitioner acting as scribe for signing physician. Objective - Vital Signs Vital signs: Vital Signs Temp 98.5 F 02/26/21 07:51 Pulse 84 02/26/21 07:51 Resp 18 02/26/21 07:51 BP 106/69 02/26/21 07:51 Pulse Ox 94 L 02/26/21 07:51 Intake & Output 02/25/21 02/26/21 02/26/21 18:59 06:59 18:59 Intake Total 1601 Output Total 500 0 500 Balance 1101 0 -500 Intake: IV 1601 Output: Urine 400 500 Uretheral (Shelley) 500 Post Void Residual 0 Estimated Blood Loss 100 - Labs CBC & Chem 7: 02/26/21 05:33 02/26/21 05:33 Labs: Abnormal Lab Results - Last 24 Hours (Table) 02/25/21 02/25/21 02/25/21 Range/Units 11:31 12:49 15:47 POC Glucose (mg/dL) 129 H 132 H 165 H (75-99) mg/dL 02/25/21 02/25/21 02/26/21 Range/Units 16:35 22:47 07:25 POC Glucose (mg/dL) 168 H 159 H 156 H (75-99) mg/dL Microbiology - Last 24 Hours (Table) 02/25/21 13:56 Wound Culture - Preliminary Knee - Left 02/25/21 13:56 Anaerobic Culture - Preliminary Knee - Left 02/25/21 13:56 Wound Culture - Preliminary Knee - Left 02/25/21 13:56 Anaerobic Culture - Preliminary Knee - Left 02/23/21 12:51 Blood Culture - Preliminary Blood No Growth after 48 hours 02/23/21 12:49 Blood Culture - Preliminary Blood No Growth after 48 hours 02/23/21 09:30 Blood Culture - Preliminary Blood No Growth after 48 hours 02/23/21 09:45 Blood Culture - Preliminary Blood No Growth after 48 hours
[2021-02-26] MEDS ORDERED: LIDOCAINE 1% INJ 10MG/ML (20 ML MDV) ONE (14:03)
--- NOTE | 2021-02-26 14:03 | P.PN ---
Subjective This is a 75-year-old male past medical history of coronary artery disease, hypertension, hyperlipidemia, type 2 diabetes, decubitus ulcer s/p debridement, prior history of smoking. Patient presents emergency department with progressive discomfort in the left knee was diagnosed with an infected left knee prosthesis. Cardiology was consulted for cardiac clearance for surgery. Patient seen and examined at bedside, no acute distress. His postop day #1 status post stage I revision left total knee. He continues to have left sided knee pain. He denies any chest pain, shortness of breath, nausea, vomiting, dizziness, palpitations, lightheadedness. Labs revealed WBC 5.4, hemoglobin 8.8, platelets 285, sodium 138, potassium 4.7, BUN 25, serum creatinine 1.3. He's currently maintained on aspirin 81mg daily, Plavix 75mg daily, atorvastatin 80 mg nightly, metoprolol tartrate 50 mg twice a day, SQ lovenox, metformin, Tradjenta GENERAL: Well-appearing, well-nourished and in no acute distress. NECK: Supple without JVD LUNGS: Breath sounds clear to auscultation bilaterally. Respiration equal and unlabored. No wheezes, rales or rhonchi. HEART: Regular rate and rhythm Systolic ejection murmur at base. S1 and S2 heard. EXTREMITIES: Normal range of motion. Left knee with significant swelling. No clubbing or cyanosis. Peripheral pulses intact. Left knee wrapped in pankaj bandage. SKIN: Decubitus ulcer on coccyx. ASSESSMENT: Infected left knee prosthesis, scheduled to undergo removal of the hardware and placement of a spacer History of coronary disease status post multiple PCI, most recently in July 2020 at [facility] History of hypertension Hyperlipidemia Type 2 diabetes Sacral pressure ulcer, healing PLAN: -From a cardiology perspective,ok to continue Plavix if ok with surgery. Continue home cardiac medications. We will follow the patient as needed. Please reach out with any further questions or concerns. Patient follow-up in the outpatient setting with Dr. Valencia Objective - Vital Signs Vital signs: Vital Signs Temp 97.8 F 02/26/21 13:59 Pulse 98 02/26/21 13:59 Resp 18 02/26/21 13:59 BP 134/69 02/26/21 13:59 Pulse Ox 96 02/26/21 13:59 Intake & Output 02/25/21 02/26/21 02/26/21 18:59 06:59 18:59 Intake Total 1601 Output Total 500 0 1000 Balance 1101 0 -1000 Intake: IV 1601 Output: Urine 400 1000 Uretheral (Shelley) 500 Post Void Residual 0 Estimated Blood Loss 100 Other: Voiding Method Self-Catheterization - Labs CBC & Chem 7: 02/26/21 05:33 02/26/21 05:33 Labs: Abnormal Lab Results - Last 24 Hours (Table) 02/25/21 02/25/21 02/25/21 Range/Units 15:47 16:35 22:47 RBC (4.40-5.60) X 10*6/uL Hgb (13.0-17.0) g/dL Hct (39.6-50.0) % MCHC (32.0-37.0) g/dL RDW (11.5-14.5) % Eosinophils # (0.04-0.35) X 10*3/uL Est GFR (CKD-EPI)NonAf (60.0-200.0) Glucose (70-110) mg/dL POC Glucose (mg/dL) 165 H 168 H 159 H (75-99) mg/dL Calcium (8.7-10.3) mg/dL AST (14-35) U/L ALT (10-49) U/L Total Protein (6.2-8.2) g/dL Albumin (3.8-4.9) g/dL Albumin/Globulin Ratio (1.60-3.17) g/dL 02/26/21 02/26/21 02/26/21 Range/Units 05:33 05:33 07:25 RBC 3.09 L (4.40-5.60) X 10*6/uL Hgb 8.8 L (13.0-17.0) g/dL Hct 28.3 L (39.6-50.0) % MCHC 31.1 L (32.0-37.0) g/dL RDW 15.9 H (11.5-14.5) % Eosinophils # 0 L (0.04-0.35) X 10*3/uL Est GFR (CKD-EPI)NonAf 54.0 L (60.0-200.0) Glucose 125 H (70-110) mg/dL POC Glucose (mg/dL) 156 H (75-99) mg/dL Calcium 8.3 L (8.7-10.3) mg/dL AST 13 L (14-35) U/L ALT 8 L (10-49) U/L Total Protein 5.4 L (6.2-8.2) g/dL Albumin 3.1 L (3.8-4.9) g/dL Albumin/Globulin Ratio 1.36 L (1.60-3.17) g/dL 02/26/21 Range/Units 11:47 RBC (4.40-5.60) X 10*6/uL Hgb (13.0-17.0) g/dL Hct (39.6-50.0) % MCHC (32.0-37.0) g/dL RDW (11.5-14.5) % Eosinophils # (0.04-0.35) X 10*3/uL Est GFR (CKD-EPI)NonAf (60.0-200.0) Glucose (70-110) mg/dL POC Glucose (mg/dL) 201 H (75-99) mg/dL Calcium (8.7-10.3) mg/dL AST (14-35) U/L ALT (10-49) U/L Total Protein (6.2-8.2) g/dL Albumin (3.8-4.9) g/dL Albumin/Globulin Ratio (1.60-3.17) g/dL Microbiology - Last 24 Hours (Table) 02/23/21 09:45 Blood Culture - Preliminary Blood No Growth after 72 hours 02/23/21 09:30 Blood Culture - Preliminary Blood No Growth after 72 hours 02/25/21 13:56 Gram Stain - Preliminary Knee - Left Wound Culture - Preliminary 02/25/21 13:56 Anaerobic Culture - Preliminary Knee - Left 02/25/21 13:56 Wound Culture - Preliminary Knee - Left 02/25/21 13:56 Anaerobic Culture - Preliminary Knee - Left 02/23/21 12:51 Blood Culture - Preliminary Blood No Growth after 48 hours 02/23/21 12:49 Blood Culture - Preliminary Blood No Growth after 48 hours
[2021-02-26] MEDS ORDERED: LIDOCAINE 1% INJ 10MG/ML (20 ML MDV) SQ ONE (14:31)
--- NOTE | 2021-02-26 14:34 | PN ---
PROGRESS NOTE DATE OF SERVICE: 02/26/2021 REASON FOR FOLLOWUP: 1. Left knee septic arthritis. 2. Sacral pressure ulcer. INTERVAL HISTORY: The patient is afebrile. He is breathing comfortably. Pain to the left knee is currently controlled. No chest pain, shortness of breath or cough. No abdominal pain worsening pain to the sacral wound area. PHYSICAL EXAMINATION: Blood pressure 106/69 with a pulse of 80, temperature 98.5. He is 94% on room air. General description is an elderly male lying in bed in no distress. Respiratory system: Unlabored breathing, clear to auscultation anteriorly. Heart S1, S2. Regular rate and rhythm. Abdomen soft, no tenderness. Left knee is currently dressed. No drainage on the dressing. LABS: Hemoglobin is 8.8, white count 5.49. Creatinine is 1.3. Cultures are currently pending. DIAGNOSTIC IMPRESSION AND PLAN: 1. Patient with left knee septic arthritis with outpatient culture positive for MSSA. Patient is status post stage I procedure with antibiotic spacer placement. All cultures pending. Patient is covered with nafcillin; to continue. He will need a PICC line for outpatient antibiotics, at least 6 weeks. 2. Sacral pressure ulcer. No cellulitis. Local care to continue with Hydrofera Blue dressing. Keep pressure off the area. MMODL / IJN: [id number] /
[2021-02-26 16:55] LABS: Glucose,Whole Blood 131 mg/dL (75-99)
[2021-02-26 20:30] LABS: Glucose,Whole Blood 192 mg/dL (75-99)
[2021-02-26] MEDS: SODIUM CHLORIDE 0.9% 1,000 ML IV SCH (20:49)
[2021-02-26] MEDS: ATORVASTATIN 80 MG TAB PO SCH (20:51)
[2021-02-26] MEDS: NON FORMULARY DRUG (Dapagliflozin Propanediol [Farxiga] 5 MG Tablet) PO SCH (20:52)
[2021-02-27] MEDS: NAFCILLIN 2 GM in DEXTROSE 5% IN WATER 100 ML IVPB SCH ×12 (00:54→21:40)
[2021-02-27] MEDS: SODIUM CHLORIDE 0.9% 1,000 ML IV SCH (00:55)
[2021-02-27] MEDS: HYDROmorphone 0.5 MG/0.5 ML SYRINGE IVP PRN ×5 (02:26→22:22)
[2021-02-27] MEDS: HYDROcodone/APAP 7.5-325MG 1 EACH TAB PO PRN ×3 (03:44→15:56)
[2021-02-27 07:15] LABS: Glucose,Whole Blood 123 mg/dL (75-99)
[2021-02-27] MEDS: INSULIN ASPART (NovoLOG) 100 UNIT/ML VIAL SQ SCH ×4 (07:24→21:41)
[2021-02-27] MEDS: LACTULOSE 20 GM/30 ML CUP PO SCH ×2 (07:30→21:43)
[2021-02-27] MEDS: LACTATED RINGERS 1,000 ML IV SCH (07:30)
[2021-02-27] MEDS: ENOXAPARIN 40 MG/0.4 ML SYRINGE SQ SCH (08:38)
[2021-02-27] MEDS: PANTOPRAZOLE 40 MG TABLET PO SCH (08:38)
[2021-02-27] MEDS: METOPROLOL TARTRATE 50 MG TAB PO SCH ×2 (08:39→21:41)
[2021-02-27] MEDS: LACTOBACILLUS ACIDOPH & BULGAR 1 EACH PACKET PO SCH ×2 (08:39→21:41)
[2021-02-27] MEDS: metFORMIN 500 MG TAB PO SCH ×2 (08:39→21:41)
[2021-02-27] MEDS: CLOPIDOGREL 75 MG TAB PO SCH (08:39)
[2021-02-27] MEDS: TAMSULOSIN 0.4 MG CAP.ER.24H PO SCH (08:39)
[2021-02-27] MEDS: LINAGLIPTIN 5 MG TABLET PO SCH (08:40)
[2021-02-27] MEDS: ASPIRIN 81 MG PO SCH (08:40)
[2021-02-27] MEDS: SENNOSIDES-DOCUSATE SODIUM 1 EACH TAB PO SCH (08:46)
--- NOTE | 2021-02-27 09:00 | IR ---
PICC LINE PLACEMENT: HISTORY: Infection requiring long-term antibiotic therapy PROCEDURE: Ultrasound and fluoroscopic guidance of PICC line placement. COMPLICATIONS: None ANESTHESIA: 1. 1% Lidocaine locally. FINDINGS/TECHNIQUE: The procedure was explained to the patient. The risks, complications, benefits and alternatives were discussed and any questions were answered. Informed consent was obtained. The patient was placed supine on the fluoroscopic table and prepped and draped in the usual sterile fash ion. Utilizing a 21 gauge needle and sonographic and fluoroscopic guidance, access in the left basi lic vein was achieved and there is placement of a 0.018 guidewire. The vein is patent. A 4-F sheath was placed over the guidewire. The guidewire and dilator were removed and a 4-F. PICC line was plac ed through the sheath with the tip at the level of the SVC. The sheath was removed, the catheter was flushed and sutured into position. The patient was stable throughout the procedure and remained sta ble upon discharge from the Department of Radiology. The vein puncture was patent under ultrasound. A lynne scale image was obtained to document patency of the vein punctured. All elements of the maximal barrier technique were utilized. FLUOROSCOPY TIME: 0.2 minutes and 1 images submitted IMPRESSION: Successful PICC line placement under ultrasound and fluoroscopic guidance.
--- NOTE | 2021-02-27 10:35 | P.PN ---
Subjective Progress Note Date: 02/27/21 This is a 75-year-old male who is status post stage I revision left total knee with removal of components and placement of an antibiotic spacer. This is postoperative day #2 and patient is seen and evaluated at bedside today. Patient states that he is having quite a bit of pain in the left knee when he works with physical therapy, otherwise he is doing well. Patient denies any new complaints today. Objective - Vital Signs Vital signs: Vital Signs Temp 98.3 F 02/27/21 08:00 Pulse 85 02/27/21 08:00 Resp 17 02/27/21 08:00 BP 96/55 02/27/21 08:00 Pulse Ox 97 02/27/21 08:00 Intake & Output 02/26/21 02/27/21 02/27/21 18:59 06:59 18:59 Intake Total 775 Output Total 1320 700 Balance -545 -700 Intake: Intake, IV Titration 200 Amount Nafcillin 2 gm In 200 Dextrose 5% in Water 100 ml @ 50 mls/hr IVPB Q4HR [facility] Rx#:[id number] Oral 575 Output: Urine 1320 700 Uretheral (Shelley) 500 Other: Voiding Method Self-Catheterization Indwelling Catheter # Bowel Movements 1 - Exam Vital signs are stable. Patient is in no acute distress and is alert and oriented 3. Calf is soft and nontender to palpation. Dressing is clean, dry, and intact. Patient has full foot and ankle motion without pain or difficulty. Sensation intact. Neurovascular status and circulatory status are intact. - Labs CBC & Chem 7: 02/26/21 05:33 02/26/21 05:33 Labs: Abnormal Lab Results - Last 24 Hours (Table) 02/26/21 02/26/21 02/26/21 Range/Units 05:33 11:47 16:54 Est GFR (CKD-EPI)NonAf 54.0 L (60.0-200.0) Glucose 125 H (70-110) mg/dL POC Glucose (mg/dL) 201 H 131 H (75-99) mg/dL Calcium 8.3 L (8.7-10.3) mg/dL AST 13 L (14-35) U/L ALT 8 L (10-49) U/L Total Protein 5.4 L (6.2-8.2) g/dL Albumin 3.1 L (3.8-4.9) g/dL Albumin/Globulin Ratio 1.36 L (1.60-3.17) g/dL 02/26/21 02/27/21 Range/Units 20:29 06:53 Est GFR (CKD-EPI)NonAf (60.0-200.0) Glucose (70-110) mg/dL POC Glucose (mg/dL) 192 H 123 H (75-99) mg/dL Calcium (8.7-10.3) mg/dL AST (14-35) U/L ALT (10-49) U/L Total Protein (6.2-8.2) g/dL Albumin (3.8-4.9) g/dL Albumin/Globulin Ratio (1.60-3.17) g/dL Microbiology - Last 24 Hours (Table) 02/25/21 13:56 Gram Stain - Preliminary Knee - Left Wound Culture - Preliminary Presumptive Staph aureus 02/23/21 12:51 Blood Culture - Preliminary Blood No Growth after 72 hours 02/23/21 12:49 Blood Culture - Preliminary Blood No Growth after 72 hours 02/23/21 09:45 Blood Culture - Preliminary Blood No Growth after 72 hours 02/23/21 09:30 Blood Culture - Preliminary Blood No Growth after 72 hours Assessment and Plan (1) Septic joint of left knee joint Current Visit: Yes Status: Acute Code(s): M00.9 - PYOGENIC ARTHRITIS, UNSPECIFIED SNOMED Code(s): 759633844 Plan: #1 Continue with routine postoperative care and pain control, leave dressing in place for 7 days. #2 Anticoagulation per internal medicine. #3 Physical therapy today. #4 Patient has a PICC line placed and IV antibiotics are being managed by infectious disease. Cultures are showing presumptive staph aureus.. #5 Patient is planning on discharge to rehab when cleared medically.
[2021-02-27 11:27] LABS: Glucose,Whole Blood 186 mg/dL (75-99)
[2021-02-27 11:41] LABS: HCT 24.1 % (39.6-50.0); HGB 7.4 g/dL (13.0-17.0); MCH 27.9 pg (27.0-32.0); MCHC 30.7 g/dL (32.0-37.0); MCV 90.9 fL (80.0-97.0); Mean Platelet Volume 9.8 fL (9.5-12.2); Platelet Count 225 X 10*3/uL (140-440); RBC 2.65 X 10*6/uL (4.40-5.60); WBC 5.27 X 10*3/uL (4.50-10.00)
--- NOTE | 2021-02-27 13:24 | P.PN ---
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 as well as radio frequency ablation, prostate cancer status post radiation therapy, patient took himself off the Plavix due to significant bruising and bleeding against his 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 Patient then had admission August 05 through August 16 at which time he was treated for septic arthritis of the left knee with persistent MSSA bacteremia status post I&D of the left total knee. He also suffered from lactic acidosis, thrombocytopenia secondary to sepsis, acute kidney injury. Patient was stabilized and discharged to [facility] for subacute rehab. Patient was continued on for a 6 week course, Unfortunately, patient developed C. difficile colitis treated with oral vancomycin. Patient has done very little physical therapy at that time and stayed in bed most the time, developed decubitus ulcer with worsening to the coccyx area, has been under the care of Dr. Cedilol for quite sometimes and his decubitus ulcer is getting a lot closer to heal, patient was seen in my office a few weeks back and he was seen earlier by Dr. Choi were recommended for the patient to go for removal of the hardware and placement of antibiotic spacer because of arthrocentesis that was done in 01/22/2021 which showed methicillin sensitive septic coccus aureus that is sensitive to penicillin and oxacillin and the patient was seen in the office for preoperative medical years however after discussing the matter with ID was recommended to hold off any surgical intervention until the decubitus ulcer healed completely patient presented to the emergency department today with increased swelling and pain in the left knee and patient decided to go for surgical intervention at this point in time because his could not take the pain anymore. Patient will be admitted to the hospital will obtain blood culture, we'll ask orthopedic surgery for consultation for hardware removal and placement of antibiotic spacer, I will start the patient on IV antibiotic in the form of nafcillin for gram IV piggyback every 4 hours, obtain ID consultation, cardiology consultation, as well as orthopedic consultation we will organize his treatment plan and the patient will likely will require to go back to [facility] for physical therapy and rehabilitation 02/24: Patient has been seen by cardiology, Dr. Valencia, and cleared for Plavix to be held, continue aspirin. Orthopedics is following and made patient nothing by mouth with plan for stayed with one revision left total knee arthroplasty tomorrow. Dr. Cedillo is recommending continuing nafcillin, Hydrofera Blue dressing to the sacral pressure ulcer. Patient has been afebrile, heart rate 71, blood pressure 137/78, pulse ox 90% on room air. WBC 3.8, hemoglobin 9.8, platelet count 241. Blood sugars are running between 110 and 225. Blood culture no growth at 24 hours. 02/25: Patient has been afebrile, heart rate 99, blood pressure 120/81, pulse ox 90% on room air. Blood sugars are running between 120 -161. He is scheduled for surgery today with orthopedics. Patient states he is having more and more pain in his knee. He is also continued complaining of constipation for which Senokot S and lactulose scheduled. Discussed discharge plan with the patient and he is planning to go home with home care, daughter is going to stop in in the morning and get him TV dinners. He also has a wheelchair that he plans to scoot around in.. This may not be the best discharge plan for him and will be rate addressed closer to discharge time. Awaiting finalization of blood culture to order PICC line insertion. Patient is continued on nafcillin. 02/26: Patient is status post stage I revision left total knee arthroplasty with removal of components and placement of antibiotic spacer yesterday trough. The patient is having urinary retention and required straight cath done 2 times during the night for 400 and then 500, consult with Dr. Ashley and patient will be scheduled for circumcision as an elective outpatient procedure. Shelley catheter will be placed to patient continues to have urinary retention. Patient is complaining of stiffness to the left knee with serosanguineous drainage. Patient has been afebrile, heart rate 84, blood pressure 106/69, pulse ox 94% on room air. Repeat blood work reveals WBC 5.4, hemoglobin 8.8, platelet count 285. A lateralized renal function are normal. Blood sugars are running between 125 and 201. Discharge planning has been changed to [facility] for subacute rehab. 02/27: Patient is postop day #2 following stage I revision arthroplasty left knee. Patient continues to have pain in the left knee. Cardiology has cleared the patient to resume Plavix if okay with surgery. Plan to continue current cardiac medications and follow with Dr. Valencia in the outpatient setting. Patient has been afebrile, heart rate 85, blood pressure 96/55, pulse ox 97% on room air. Repeat blood work reveals WBC 5.2, hemoglobin 7.4, platelet count 225. Currently blood glucose running between 123 and 192. Patient is continued on nafcillin. Wound culture is presumptive staph aureus. Anticipate discharge once sensitivity is completed. Discharge plan has changed from [facility] to [facility]. REVIEW OF SYSTEMS: Constitutional: negative for fever, or chills, no night sweats, fatigue , positive for weight loss. HEENT: No headache. No blurred vision or double vision, no loss of vision. No loss of Hearing, no ringing in the ears, no dizziness. No nasal drainage or congestion. No epistaxis. No sore throat. Respiratory: No shortness of breath, no cough, no sputum production. No wheezing. Reports dyspnea with activity which is chronic. Cardiovascular: No chest pain, no lower extremity edema. No palpitations. No paroxysmal nocturnal dyspnea. No orthopnea. No lightheadedness or dizziness. No syncopal episodes. Gastrointestinal: Reports no abdominal pain. No nausea, vomiting. No d iarrhea. No constipation. No bloody or tarry stools reports loss of appetite. Genitourinary: No dysuria, increased frequency, urgency. Reported urinary retention. Musculoskeletal: Positive for myalgias. positive for muscle weakness, Positive for gait dysfunction, no frequent falls, positive for significant left knee pain status post surgery, positive for low back pain . Integumentary: decubitus ulcer sacrum, no lesions. No rash or pruritus. brpositive for bruising. No change in hair or nails. Neurologic: No aphasia. No facial droop. No change in mentation. No head injury. No headache. No paralysis. No paresthesia. Psychiatric: No depression. No anxiety. No mood swings. Endocrine: Noted mildly abnormal blood sugars. No weight change. PHYSICAL EXAMINATION: General: This is 75-year-old male resting in bed and appears to be in no acute distress. HEENT: Head is atraumatic, normocephalic, pupils were equal round reactive to light and recommendation, sclera nonicteric, conjunctivae were pale, mucous membranes of the mouth are somewhat dry. Neck: Supple, no JVP, normal carotid upstroke bilaterally, no lymphadenopathy. Chest: Decreased breath sounds at the bases, few rhonchi, no extremity wheezes, no chest wall tenderness, no intercostal retractions. Heart: First heart sound is normal, second heart sound is normal there is systolic ejection murmur 2/6 left sternal border. Abdomen: Soft, nontender, nondistended, positive bowel sounds, no hepatosplenomegaly Extremities: There is no edema no calf tenderness DP + 1 bilaterally, left knee with significant edema and decreased range of motion. Dressing in place to the left knee. Skin: There is a crescent shaped stage 2-3 decubitus ulcer in the coccyx area with clean granulation tissue at the base, we'll continue currently with Hydrofera Blue wound dressing as per infectious disease. Neurologic examination: Patient is awake alert and oriented X3, cranial nerves II-12 appear grossly intact, muscle power were 5 out of 5 in upper extremities and 4 out of 5 in the right lower extremity and 2 out of 5 in the left lower extremity due to pain. ASSESSMENT AND PLAN: 1. MSSA left knee joint infection. Status post Stage 1 Revision left total knee arthroplasty, 02/25. Continue the patient on IV antibiotic in the form of nafcillin 2 gram IV piggyback every 4 hours, blood cultures in process. Wound cultures obtained in the OR are presumptive staph aureus. Patient is followed by infectious disease. PICC has been placed. 2. Stage III crescent shaped decubitus ulcer in the coccyx area. Continue with current dressing as per ID, turn the patient every 2 hours, keep off his back at all the time along with adding Glucerna TID. 3. History of recent septic arthritis of the left knee and MSSA bacteremia s/p debridement of the left knee i the past status post stage I revision left total knee arthroplasty. 4. Recent left heart catheterization with PCI of the RCA on 07/30/2020 Continue patient on aspirin 81 g once every day, discontinue Plavix, continue metoprolol 50 mg orally twice every day, continue atorvastatin 80 mg orally once every day. 5. Hypertension and hypertensive cardiovascular disease. Continue metoprolol 50 mg orally twice every day. 6. Hyperlipidemia. Continue patient on atorvastatin 80 mg orally once every day. 7. Diabetes mellitus type 2. Start the patient on Farxiga 5 mg orally daily along with SSI and Janumet 100/1000 g orally once every day, monitor glucose level before each meal and at bedtime. 8. History of prostate cance status post rotation. Stable at this time. 9. 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 Continue current pain management. 10. Urinary retention requiring Shelley catheter placement. Patient will need to circumcision as an elective procedure at a later date. 11. DVT prophylaxis. Lovenox 40 mg subcutaneously every 24 hours. 12. GI prophylaxis. Protonix 40 mg orally twice daily. Patient is full code. DISCHARGE PLAN [facility] for subacute rehab. Impression and plan of care have been directed as dictated by the signing phys shayy. Padma Monsalve nurse practitioner acting as scribe for signing physician. Objective - Vital Signs Vital signs: Vital Signs Temp 98.3 F 02/27/21 08:00 Pulse 85 02/27/21 08:00 Resp 17 02/27/21 08:00 BP 96/55 02/27/21 08:00 Pulse Ox 97 02/27/21 08:00 Intake & Output 02/26/21 02/27/21 02/27/21 18:59 06:59 18:59 Intake Total 775 Output Total 1320 700 Balance -545 -700 Weight 90.718 kg Intake: Intake, IV Titration 200 Amount Nafcillin 2 gm In 200 Dextrose 5% in Water 100 ml @ 50 mls/hr IVPB Q4HR [facility] Rx#:[id number] Oral 575 Output: Urine 1320 700 Uretheral (Shelley) 500 Other: Voiding Method Self-Catheterization Indwelling Catheter Indwelling Catheter # Bowel Movements 1 - Labs CBC & Chem 7: 02/27/21 06:20 02/26/21 05:33 Labs: Abnormal Lab Results - Last 24 Hours (Table) 02/26/21 02/26/21 02/26/21 Range/Units 05:33 16:54 20:29 RBC (4.40-5.60) X 10*6/uL Hgb (13.0-17.0) g/dL Hct (39.6-50.0) % MCHC (32.0-37.0) g/dL RDW (11.5-14.5) % Est GFR (CKD-EPI)NonAf 54.0 L (60.0-200.0) Glucose 125 H (70-110) mg/dL POC Glucose (mg/dL) 131 H 192 H (75-99) mg/dL Calcium 8.3 L (8.7-10.3) mg/dL AST 13 L (14-35) U/L ALT 8 L (10-49) U/L Total Protein 5.4 L (6.2-8.2) g/dL Albumin 3.1 L (3.8-4.9) g/dL Albumin/Globulin Ratio 1.36 L (1.60-3.17) g/dL 02/27/21 02/27/21 02/27/21 Range/Units 06:20 06:53 11:18 RBC 2.65 L (4.40-5.60) X 10*6/uL Hgb 7.4 L (13.0-17.0) g/dL Hct 24.1 L (39.6-50.0) % MCHC 30.7 L (32.0-37.0) g/dL RDW 16.0 H (11.5-14.5) % Est GFR (CKD-EPI)NonAf (60.0-200.0) Glucose (70-110) mg/dL POC Glucose (mg/dL) 123 H 186 H (75-99) mg/dL Calcium (8.7-10.3) mg/dL AST (14-35) U/L ALT (10-49) U/L Total Protein (6.2-8.2) g/dL Albumin (3.8-4.9) g/dL Albumin/Globulin Ratio (1.60-3.17) g/dL Microbiology - Last 24 Hours (Table) 02/23/21 09:45 Blood Culture - Preliminary Blood No Growth after 96 hours 02/23/21 09:30 Blood Culture - Preliminary Blood No Growth after 96 hours 02/25/21 13:56 Gram Stain - Preliminary Knee - Left Wound Culture - Preliminary Presumptive Staph aureus 02/23/21 12:51 Blood Culture - Preliminary Blood No Growth after 72 hours 02/23/21 12:49 Blood Culture - Preliminary Blood No Growth after 72 hours
--- NOTE | 2021-02-27 13:39 | P.DS ---
Providers Date of admission: 02/23/21 10:27 Expected date of discharge: 03/03/21 Attending physician: German Astudillo Consults: 02/23/21 10:26 Consult Physician Urgent Consulting Provider: Austen Gomez Consult Reason/Comments: Infected knee joint Do you want consulting provider notified?: Yes Consult Physician Urgent Consulting Provider: Yessy Strickland Consult Reason/Comments: Infected knee joint Do you want consulting provider notified?: Yes 02/23/21 10:53 Consult Physician Urgent Consulting Provider: Ambrosio Valencia Consult Reason/Comments: Medical clearance for surgery Do you want consulting provider notified?: Yes 02/25/21 19:17 Consult Physician Urgent Consulting Provider: Jcarlos Franklin Consult Reason/Comments: Urinary retention with Phymosis post op Do you want consulting provider notified?: Yes [facility] Course: HISTORY OF PRESENT ILLNESS: This is a 75-year-old male patient of [facility] with previous medical history significant for coronary artery disease status post percutaneous coronary intervention and stent placement last one was in 12/13/2019 in the mid RCA at that time he was found to have a totally occluded obtuse marginal one of the LCx, with collaterals from the PDA, hypertension and hypertensive cardiovascular disease, hyperlipidemia, diabetes mellitus type 2, diabetic polyneuropathy, 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 as well as radio frequency ablation, prostate cancer status post radiation therapy, patient took himself off the Plavix due to significant bruising and bleeding against his engineer fishing vessel recommendation and he was taken a baby aspirin alone, 07/28/[address] suffered from inferior wall ST elevation myocardial infarction 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 Patient then had admission August 05 through August 16 at which time he was treated for septic arthritis of the left knee with persistent MSSA bacteremia status post I&D of the left total knee. He also suffered from lactic acidosis, thrombocytopenia secondary to sepsis, acute kidney injury. Patient was stabilized and discharged to [facility] for subacute rehab. Patient was continued on for a 6 week course, Unfortunately, patient developed C. difficile colitis treated with oral vancomycin. Patient has done very little physical therapy at that time and stayed in bed most the time, developed decubitus ulcer with worsening to the coccyx area, has been under the care of Dr. Cedillo for quite sometimes and his decubitus ulcer is getting a lot closer to heal, patient was seen in my office a few weeks back and he was seen earlier by Dr. Royoff were recommended for the patient to go for removal of the hardware and placement of antibiotic spacer because of arthrocentesis that was done in 01/22/2021 which showed methicillin sensitive septic coccus aureus that is sensitive to penicillin and oxacillin and the patient was seen in the office for preoperative medical years however after discussing the matter with ID was recommended to hold off any surgical intervention until the decubitus ulcer healed completely patient presented to the emergency department today with increased swelling and pain in the left knee and patient decided to go for surgical intervention at this point in time because his could not take the pain anymore. Patient will be admitted to the hospital will obtain blood culture, we'll ask orthopedic surgery for consultation for hardware removal and placement of antibiotic spacer, I will start the patient on IV antibiotic in the form of nafcillin for gram IV piggyback every 4 hours, obtain ID consultation, cardiology consultation, as well as orthopedic consultation we will organize his treatment plan and the patient will likely will require to go back to [facility] for physical therapy and rehabilitation 02/24: Patient has been seen by cardiology, Dr. Valencia, and cleared for Plavix to be held, continue aspirin. Orthopedics is following and made patient nothing by mouth with plan for stayed with one revision left total knee arthroplasty tomorrow. Dr. Cedillo is recommending continuing nafcillin, Hydrofera Blue dressing to the sacral pressure ulcer. Patient has been afebrile, heart rate 71, blood pressure 137/78, pulse ox 90% on room air. WBC 3.8, hemoglobin 9.8, platelet count 241. Blood sugars are running between 110 and 225. Blood culture no growth at 24 hours. 02/25: Patient has been afebrile, heart rate 99, blood pressure 120/81, pulse ox 90% on room air. Blood sugars are running between 120 -161. He is scheduled for surgery today with orthopedics. Patient states he is having more and more pain in his knee. He is also continued complaining of constipation for which Senokot S and lactulose scheduled. Discussed discharge plan with the patient and he is planning to go home with home care, daughter is going to stop in in the morning and get him TV dinners. He also has a wheelchair that he plans to scoot around in.. This may not be the best discharge plan for him and will be rate addressed closer to discharge time. Awaiting finalization of blood culture to order PICC line insertion. Patient is continued on nafcillin. 02/26: Patient is status post stage I revision left total knee arthroplasty with removal of components and placement of antibiotic spacer yesterday trough. The patient is having urinary retention and required straight cath done 2 times during the night for 400 and then 500, consult with Dr. Ashley and patient will be scheduled for circumcision as an elective outpatient procedure. Shelley catheter will be placed to patient continues to have urinary retention. Patient is complaining of stiffness to the left knee with serosanguineous drainage. Patient has been afebrile, heart rate 84, blood pressure 106/69, pulse ox 94% on room air. Repeat blood work reveals WBC 5.4, hemoglobin 8.8, platelet count 285. A lateralized renal function are normal. Blood sugars are running between 125 and 201. Discharge planning has been changed to [facility] for subacute rehab. 02/27: Patient is postop day #2 following stage I revision arthroplasty left knee. Patient continues to have pain in the left knee. Cardiology has cleared the patient to resume Plavix if okay with surgery. Plan to continue current cardiac medications and follow with Dr. Valencia in the outpatient setting. Patient has been afebrile, heart rate 85, blood pressure 96/55, pulse ox 97% on room air. Repeat blood work reveals WBC 5.2, hemoglobin 7.4, platelet count 225. Currently blood glucose running between 123 and 192. Patient is continued on nafcillin. Wound culture is presumptive staph aureus. Anticipate discharge once sensitivity is completed. Discharge plan has changed from [facility] to [facility]. 02/28: Patient is post operative day #3 is laying down in bed he continues to have significant pain in the left knee he is not able to extend his knee at all, I've talked to orthopedic service and an x-ray of the left knee was ordered for further evaluation, as as the knee joint is dislocated posteriorly otherwise no evidence of acute disease, he was recommended to start the patient on muscle relaxer and to continue physical therapy, patient will be kept in the hospital for another 2 days prior to the discharge to the group home hopefully the next 24 hours if he is able to move his knee. 03/01: Patient is laying down in bed in no apparent distress, he stated his pain is much better this is post operative day #4, he continues to be flexing his left knee is not able to extend his knee at this point at all we'll start the patient on small dose of muscle relaxer however I believe the patient is not able to flex his knee at this point in time and orthopedic surgery will reevaluate the patient again had an x-ray yesterday that did show posterior dislocation of the knee joint. 03/02: Patient is laying down in his side, to try to avoid worsening decubitus ulceration in the buttock area, he is post operative day #5 status post stage I revision left total knee arthroplasty that was done on February 25, patient was started yesterday on muscle relaxer to try to extend his left lower extremity he continues to have significant issues with his knee and he is not able to extend his leg at all, orthopedic surgeries following, x-ray did show posterior dislocation of the knee joint, patient was seen by infectious disease and he was started on cefazolin 2 g IV piggyback every 8 hours for the remainder of the treatment prior to his stage II revision, also patient would need to have circumcision done and between prior to his stage II revision. We'll try to arrange for this with urology. 03/03: Orthopedics has been able to straighten patient's left knee and knee immobilizer is in place. Dr. herron is planing for 6 weeks of Kefzol 2 g IV piggyback every 8 hours. Shelley catheter is to be maintained and patient have f ollow-up in urology office with plan for circumcision prior to knee replacement surgery. Patient denies any new complaints. Patient will be discharged today in stable condition. Discharge diagnoses 1. MSSA left knee joint infection. Status post Stage 1 Revision left total knee arthroplasty, 02/25. 2. Stage III crescent shaped decubitus ulcer in the coccyx area. 3. History of recent septic arthritis of the left knee and MSSA bacteremia s/p debridement of the left knee. 4. Recent left heart catheterization with PCI of the RCA on 07/30/2020. 5. Hypertension and hypertensive cardiovascular disease. 6. Hyperlipidemia. 7. Diabetes mellitus type 2. 8. History of prostate cance status post rotation. 9. 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 10. Urinary retention requiring Shelley catheter placement. DISCHARGE PLAN [facility] for subacute rehab. Greater than 35 minutes was utilized and coordinating patient's discharge. Impression and plan of care have been directed as dictated by the signing physician. Padma Monsalve nurse practitioner acting as scribe for signing physician. Patient Condition at Discharge: Stable Plan - Discharge Summary Discharge Rx Participant: Yes New Discharge Prescriptions: New Lactobacillus Acidoph & Bulgar [Lactinex] 1 each PO BID packet Magnesium Hydroxide [Milk of Magnesia Concentrate] 2,400 mg PO DAILY PRN ml PRN Reason: Constipation HYDROcodone/APAP 7.5-325MG [[place] 7.5-325] 2 each PO Q6H PRN #24 tab PRN Reason: Pain Scale 6 To 10 INSULIN ASPART (NovoLOG) [NovoLOG (formulary)] 0 unit SQ ACHS ml ceFAZolin [Kefzol] 2,000 mg IVPB Q8HR #126 ml Lactulose [Cephulac] 20 gm PO BID ml Tamsulosin [Flomax] 0.4 mg PO PC-BRKFST capsule Pantoprazole [Protonix] 40 mg PO AC-BRKFST tab Sennosides-Docusate Sodium [Senokot-S] 2 each PO DAILY tab Baclofen [Lioresal] 5 mg PO TID PRN tab PRN Reason: Muscle Spasm Continue Acetaminophen Tab [Tylenol] 1,000 mg PO Q6HR PRN PRN Reason: Fever And/ Or Pain Clopidogrel [Plavix] 75 mg PO DAILY Dapagliflozin Propanediol [Farxiga] 5 mg PO HS Aspirin [Starr Aspirin EC] 81 mg PO DAILY Atorvastatin [Lipitor] 80 mg PO HS Metoprolol Tartrate [Lopressor] 50 mg PO BID sitaGLIPtin PHOS/metFORMIN HCL [Janumet Xr 100-1,000 mg Tablet] 1 tab PO DAILY Discontinued HYDROcodone/APAP 10-325MG [[place] 10-325] 1 tab PO Q6H PRN PRN Reason: Pain Discharge Medication List Aspirin [Starr Aspirin EC] 81 mg PO DAILY 08/05/20 [History] Acetaminophen Tab [Tylenol] 1,000 mg PO Q6HR PRN 09/01/20 [History] Atorvastatin [Lipitor] 80 mg PO HS 09/01/20 [History] Clopidogrel [Plavix] 75 mg PO DAILY 09/01/20 [History] Metoprolol Tartrate [Lopressor] 50 mg PO BID 09/17/20 [History] Dapagliflozin Propanediol [Farxiga] 5 mg PO HS 02/23/21 [History] sitaGLIPtin PHOS/metFORMIN HCL [Janumet Xr 100-1,000 mg Tablet] 1 tab PO DAILY 02/23/21 [History] HYDROcodone/APAP 7.5-325MG [[place] 7.5-325] 2 each PO Q6H PRN #24 tab 02/27/21 [Rx] INSULIN ASPART (NovoLOG) [NovoLOG (formulary)] 0 unit SQ ACHS ml 02/27/21 [Rx] Lactobacillus Acidoph & Bulgar [Lactinex] 1 each PO BID packet 02/27/21 [Rx] Lactulose [Cephulac] 20 gm PO BID ml 02/27/21 [Rx] Magnesium Hydroxide [Milk of Magnesia Concentrate] 2,400 mg PO DAILY PRN ml 02/27/21 [Rx] Pantoprazole [Protonix] 40 mg PO AC-BRKFST tab 02/27/21 [Rx] Sennosides-Docusate Sodium [Senokot-S] 2 each PO DAILY tab 02/27/21 [Rx] Tamsulosin [Flomax] 0.4 mg PO PC-BRKFST capsule 02/27/21 [Rx] Baclofen [Lioresal] 5 mg PO TID PRN tab 03/03/21 [Rx] ceFAZolin [Kefzol] 2,000 mg IVPB Q8HR #126 ml 03/03/21 [Rx] Follow up Appointment(s)/Referral(s): Ambrosio Valencia MD [STAFF PHYSICIAN] - 2 Weeks Amandeep Wiggins MD [STAFF PHYSICIAN] - 1 Week [facility], [NON-STAFF] - Raji Choi DO [Doctor of Osteopathic Medicine] - 2 Weeks German Astudillo MD [Primary Care Provider] - 1 Week (at [facility] Yessy Strickland MD [STAFF PHYSICIAN] - 3 Weeks Ambulatory/Diagnostic Orders: Basic Metabolic Panel [LAB.AMB] Location: None Selected C Reactive Protein [LAB.AMB] Location: None Selected Complete Blood Count w/diff [LAB.AMB] Location: None Selected Erythrocyte Sedimentation Rate [LAB.AMB] Location: None Selected Activity/Diet/Wound Care/Special Instructions: Keep Shelley Maintain knee immobilizer. Leave dressing in place for 7 days. Celina to be remved in 10-14 days. Weightberaing as tolerated. Resume aspirin and Plavix. Please call [facility] with any questions or concerns, . Discharge Disposition: TRANSFER TO SNF/ECF
[2021-02-27 16:34] LABS: Glucose,Whole Blood 129 mg/dL (75-99)
[2021-02-27 21:13] LABS: Glucose,Whole Blood 153 mg/dL (75-99)
[2021-02-27] MEDS: ATORVASTATIN 80 MG TAB PO SCH (21:41)
[2021-02-27] MEDS: NON FORMULARY DRUG (Dapagliflozin Propanediol [Farxiga] 5 MG Tablet) PO SCH (21:43)
--- NOTE | 2021-02-27 22:47 | PN ---
PROGRESS NOTE DATE OF SERVICE: 02/27/2021 REASON FOR FOLLOWUP: 1. Left knee septic ulcer. 2. Sacral pressure ulcer. INTERVAL HISTORY: The patient is afebrile. The patient is currently breathing comfortably. Still complaining of pain to the left knee area; no worsening, though. No chest pain, shortness of breath or cough. No abdominal pain or diarrhea. PHYSICAL EXAMINATION: His blood pressure is 109/62 with a pulse of 92, temperature 98.1. He is 97% on room air. General description is an elderly male lying in bed in no distress. Respiratory system: Unlabored breathing, clear to auscultation anteriorly. Heart S1, S2. Regular rate and rhythm. Abdomen soft, no tenderness. LABS: White count 5.27. Cultures with MSSA. DIAGNOSTIC IMPRESSION AND PLAN: 1. Patient with left knee septic arthritis. Culture has been MSSA. Patient is on nafcillin. Transition to cefazolin 2 grams q.8 hours for 6 weeks. Will get a PICC line for outpatient antibiotics. 2. Sacral pressure ulcer. Local care with Hydrofera Blue dressing. Keep the area off pressure. MMODL / IJN: [id number] /
[2021-02-28] MEDS: SODIUM CHLORIDE 0.9% 1,000 ML IV SCH ×3 (00:42→21:10)
[2021-02-28] MEDS: NAFCILLIN 2 GM in DEXTROSE 5% IN WATER 100 ML IVPB SCH ×8 (00:43→12:23)
[2021-02-28] MEDS: HYDROmorphone 0.5 MG/0.5 ML SYRINGE IVP PRN ×4 (01:53→21:53)
[2021-02-28] MEDS: HYDROcodone/APAP 7.5-325MG 1 EACH TAB PO PRN ×3 (05:06→21:04)
[2021-02-28 07:39] LABS: Glucose,Whole Blood 134 mg/dL (75-99)
[2021-02-28] MEDS: LACTATED RINGERS 1,000 ML IV SCH (08:05)
[2021-02-28] MEDS: INSULIN ASPART (NovoLOG) 100 UNIT/ML VIAL SQ SCH ×4 (08:06→20:28)
[2021-02-28] MEDS: LACTULOSE 20 GM/30 ML CUP PO SCH ×2 (08:13→21:03)
[2021-02-28] MEDS: SENNOSIDES-DOCUSATE SODIUM 1 EACH TAB PO SCH (08:13)
[2021-02-28] MEDS: LACTOBACILLUS ACIDOPH & BULGAR 1 EACH PACKET PO SCH ×2 (08:13→21:06)
[2021-02-28] MEDS: metFORMIN 500 MG TAB PO SCH ×2 (08:14→21:04)
[2021-02-28] MEDS: ASPIRIN 81 MG PO SCH (08:14)
[2021-02-28] MEDS: ENOXAPARIN 40 MG/0.4 ML SYRINGE SQ SCH (08:14)
[2021-02-28] MEDS: METOPROLOL TARTRATE 50 MG TAB PO SCH ×2 (08:14→21:04)
[2021-02-28] MEDS: TAMSULOSIN 0.4 MG CAP.ER.24H PO SCH (08:14)
[2021-02-28] MEDS: LINAGLIPTIN 5 MG TABLET PO SCH (08:14)
[2021-02-28] MEDS: PANTOPRAZOLE 40 MG TABLET PO SCH (08:14)
[2021-02-28] MEDS: CLOPIDOGREL 75 MG TAB PO SCH (08:14)
[2021-02-28 10:37] LABS: Basophils # (A) 0.01 X 10*3/uL (0.00-0.10); Basophils % (A) 0.2 %; Eosinophils # (A) 0 X 10*3/uL (0.04-0.35); Eosinophils % (A) 0 %; HCT 24.3 % (39.6-50.0); HGB 7.5 g/dL (13.0-17.0); Lymphocytes # (A) 0.74 X 10*3/uL (0.90-5.00); Lymphocytes % (A) 16.9 %; MCH 28.4 pg (27.0-32.0); MCHC 30.9 g/dL (32.0-37.0); Monocytes # (A) 0.54 X 10*3/uL (0.20-1.00); Monocytes % (A) 12.3 %; Neutrophils # (A) 3.08 X 10*3/uL (1.80-7.70); Neutrophils % (A) 70.1 %; Platelet Count 229 X 10*3/uL (140-440); RBC 2.64 X 10*6/uL (4.40-5.60); RDW 16.1 % (11.5-14.5); WBC 4.39 X 10*3/uL (4.50-10.00)
[2021-02-28 11:23] LABS: Glucose,Whole Blood 150 mg/dL (75-99)
[2021-02-28 11:47] LABS: African American GFR (CKD) 67.7 (60.0-200.0); Albumin 2.9 g/dL (3.8-4.9); Albumin/Globulin Ratio 1.32 (1.60-3.17); Anion Gap 11.1 mmol/L (4.00-12.00); BUN/Creat Ratio 19.58 Ratio (12.00-20.00); Blood Urea Nitrogen 23.5 mg/dL (9.0-27.0); Calcium 7.7 mg/dL (8.7-10.3); Carbon Dioxide 24.9 mmol/L (21.6-31.8); Globulin 2.2 g/dL (1.6-3.3); Non-African American GFR(CKD) 58.4 (60.0-200.0); Potassium 3.6 mmol/L (3.5-5.5); Total Bilirubin 0.2 mg/dL (0.30-1.20); Total Protein 5.1 g/dL (6.2-8.2)
--- NOTE | 2021-02-28 12:24 | P.PN ---
Subjective Progress Note Date: 02/28/21 This is a 75-year-old male who is status post stage I revision left total knee with removal of components and placement of an antibiotic spacer. This is postoperative day #3 and patient is seen and evaluated at bedside today. Patient states that he is having trouble straightening the left knee. Otherwise, patient denies any new complaints today. Objective - Vital Signs Vital signs: Vital Signs Temp 98.2 F 02/28/21 08:00 Pulse 82 02/28/21 08:00 Resp 16 02/28/21 08:00 BP 129/67 02/28/21 08:00 Pulse Ox 97 02/28/21 08:00 Intake & Output 02/27/21 02/28/21 02/28/21 18:59 06:59 18:59 Output Total 400 1300 Balance -400 -1300 Weight 90.718 kg Output: Urine 400 1300 Other: Voiding Method Indwelling Catheter Indwelling Catheter Indwelling Catheter # Bowel Movements 1 - Exam Vital signs are stable. Patient is in no acute distress and is alert and oriented 3. Calf is soft and nontender to palpation. Dressing is clean, dry, and intact. Patient holds the left knee in flexion. Difficulty with passive and active extension. Patient has full foot and ankle motion without pain or difficulty. Sensation intact. Neurovascular status and circulatory status are intact. - Labs CBC & Chem 7: 02/28/21 06:55 02/28/21 06:55 Labs: Abnormal Lab Results - Last 24 Hours (Table) 02/27/21 02/27/21 02/28/21 Range/Units 16:32 21:11 06:55 WBC 4.39 L (4.50-10.00) X 10*3/uL RBC 2.64 L (4.40-5.60) X 10*6/uL Hgb 7.5 L (13.0-17.0) g/dL Hct 24.3 L (39.6-50.0) % MCHC 30.9 L (32.0-37.0) g/dL RDW 16.1 H (11.5-14.5) % Lymphocytes # 0.74 L (0.90-5.00) X 10*3/uL Eosinophils # 0 L (0.04-0.35) X 10*3/uL Est GFR (CKD-EPI)NonAf (60.0-200.0) POC Glucose (mg/dL) 129 H 153 H (75-99) mg/dL Calcium (8.7-10.3) mg/dL Total Bilirubin (0.30-1.20) mg/dL AST (14-35) U/L ALT (10-49) U/L Total Protein (6.2-8.2) g/dL Albumin (3.8-4.9) g/dL Albumin/Globulin Ratio (1.60-3.17) g/dL 02/28/21 02/28/21 02/28/21 Range/Units 06:55 07:10 11:20 WBC (4.50-10.00) X 10*3/uL RBC (4.40-5.60) X 10*6/uL Hgb (13.0-17.0) g/dL Hct (39.6-50.0) % MCHC (32.0-37.0) g/dL RDW (11.5-14.5) % Lymphocytes # (0.90-5.00) X 10*3/uL Eosinophils # (0.04-0.35) X 10*3/uL Est GFR (CKD-EPI)NonAf 58.4 L (60.0-200.0) POC Glucose (mg/dL) 134 H 150 H (75-99) mg/dL Calcium 7.7 L (8.7-10.3) mg/dL Total Bilirubin 0.20 L (0.30-1.20) mg/dL AST 12 L (14-35) U/L ALT 7 L (10-49) U/L Total Protein 5.1 L (6.2-8.2) g/dL Albumin 2.9 L (3.8-4.9) g/dL Albumin/Globulin Ratio 1.32 L (1.60-3.17) g/dL Microbiology - Last 24 Hours (Table) 02/23/21 09:45 Blood Culture - Preliminary Blood No Growth after 120 hours 02/23/21 09:30 Blood Culture - Preliminary Blood No Growth after 120 hours 02/25/21 13:56 Anaerobic Culture - Preliminary Knee - Left 02/25/21 13:56 Anaerobic Culture - Preliminary Knee - Left 02/25/21 13:56 Wound Culture - Preliminary Knee - Left Presumptive Staph aureus 02/25/21 13:56 Gram Stain - Final Knee - Left Wound Culture - Final Staphylococcus aureus 02/23/21 12:51 Blood Culture - Preliminary Blood No Growth after 96 hours 02/23/21 12:49 Blood Culture - Preliminary Blood No Growth after 96 hours Assessment and Plan (1) Septic joint of left knee joint Current Visit: Yes Status: Acute Code(s): M00.9 - PYOGENIC ARTHRITIS, UNSPECIFIED SNOMED Code(s): 030237684 Plan: #1 Continue with routine postoperative care and pain control. Daily dressing ch anges. #2 Anticoagulation per internal medicine. #3 Physical therapy today. #4 Patient has a PICC line placed and IV antibiotics are being managed by infectious disease. Cultures are showing presumptive staph aureus.. #5 X-rays of the left knee are pending. #6 Patient is planning on discharge to rehab when cleared medically.
--- NOTE | 2021-02-28 13:08 | XR ---
EXAMINATION TYPE: XR knee limited LT DATE OF EXAM: 02/28/2021 COMPARISON: 02/25/2021 HISTORY: 75-year-old male with pain TECHNIQUE: 3 views FINDINGS: Anterior midline skin jose david remain. There is pronounced anterior soft tissue swelling. A couple air locules remain in the anterior soft tissues. Antibiotic impregnated knee arthroplasty is present. There appears to be some posterior subluxation a t the knee. Vascular calcifications. No periprosthetic fracture is identified. IMPRESSION: 1. Continued severe anterior soft tissue swelling. A couple small air locules remain in the anterior soft tissues, probably due to recent surgery. Clinically correlate to exclude infection with gas-form ing organism. 2. Underlying antibiotic impregnated cement arthroplasty. No periprosthetic fracture seen. Similar po sterior subluxation of the knee joint.
[2021-02-28 16:30] LABS: Glucose,Whole Blood 126 mg/dL (75-99)
--- NOTE | 2021-02-28 17:35 | P.PN ---
Subjective Progress Note Date: 02/28/21 Progress Note Date: 02/28/21 HISTORY OF PRESENT ILLNESS: This is a 75-year-old male patient of mine with previous medical history significant for coronary artery disease status post percutaneous coronary intervention and stent placement last one was in 12/13/2019 in the mid RCA at that time he was found to have a totally occluded obtuse marginal one of the LCx, with collaterals from the PDA, hypertension and hypertensive cardiovascular disease, hyperlipidemia, diabetes mellitus type 2, diabetic polyneuropathy, 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 as well as radio frequency ablation, prostate cancer status post radiation therapy, patient took himself off the Plavix due to significant bruising and bleeding against his car diologist recommendation and he was taken a baby aspirin alone, 07/28/[address] suffered from inferior wall ST elevation myocardial infarction patient was taken to the 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 Patient then had admission August 05 through August 16 at which time he was treated for septic arthritis of the left knee with persistent MSSA bacteremia status post I&D of the left total knee. He also suffered from lactic acidosis, thrombocytopenia secondary to sepsis, acute kidney injury. Patient was stabilized and discharged to [facility] for subacute rehab. Patient was continued on for a 6 week course, Unfortunately, patient developed C. difficile colitis treated with oral vancomycin. Patient has done very little physical therapy at that time and stayed in bed most the time, developed decubitus ulcer with worsening to the coccyx area, has been under the care of Dr. Cedillo for quite sometimes and his decubitus ulcer is getting a lot closer to heal, patient was seen in my office a few weeks back and he was seen earlier by Dr. Choi were recommended for the patient to go for removal of the hardware and placement of antibiotic spacer b ecause of arthrocentesis that was done in 01/22/2021 which showed methicillin sensitive septic coccus aureus that is sensitive to penicillin and oxacillin and the patient was seen in the office for preoperative medical years however after discussing the matter with ID was recommended to hold off any surgical intervention until the decubitus ulcer healed completely patient presented to the emergency department today with increased swelling and pain in the left knee and patient decided to go for surgical intervention at this point in time because his could not take the pain anymore. Patient will be admitted to the hospital will obtain blood culture, we'll ask orthopedic surgery for consultati on for hardware removal and placement of antibiotic spacer, I will start the patient on IV antibiotic in the form of nafcillin for gram IV piggyback every 4 hours, obtain ID consultation, cardiology consultation, as well as orthopedic consultation we will organize his treatment plan and the patient will likely will require to go back to [facility] for physical therapy and rehabilitation 02/24: Patient has been seen by cardiology, Dr. Valencia, and cleared for Plavix to be held, continue aspirin. Orthopedics is following and made patient nothing by mouth with plan for stayed with one revision left total knee arthroplasty tomorrow. Dr. Cedillo is recommending continuing nafcillin, Hydrofera Blue dressing to the sacral pressure ulcer. Patient has been afebrile, heart rate 71, blood pressure 137/78, pulse ox 90% on room air. WBC 3.8, hemoglobin 9.8, platelet count 241. Blood sugars are running between 110 and 225. Blood culture no growth at 24 hours. 02/25: Patient has been afebrile, heart rate 99, blood pressure 120/81, pulse ox 90% on room air. Blood sugars are running between 120 -161. He is scheduled for surgery today with orthopedics. Patient states he is having more and more pain in his knee. He is also continued complaining of constipation for which Senokot S and lactulose scheduled. Discussed discharge plan with the patient and he is planning to go home with home care, daughter is going to stop in in the morning and get him TV dinners. He also has a wheelchair that he plans to scoot around in.. This may not be the best discharge plan for him and will be rate addressed closer to discharge time. Awaiting finalization of blood culture to order PICC line insertion. Patient is continued on nafcillin. 02/26: Patient is status post stage I revision left total knee arthroplasty with removal of components and placement of antibiotic spacer yesterday trough. The patient is having urinary retention and required straight cath done 2 times during the night for 400 and then 500, consult with Dr. Ashley and patient will be scheduled for circumcision as an elective outpatient procedure. Shelley catheter will be placed to patient continues to have urinary retention. Patient is complaining of stiffness to the left knee with serosanguineous drainage. Patient has been afebrile, heart rate 84, blood pressure 106/69, pulse ox 94% on room air. Repeat blood work reveals WBC 5.4, hemoglobin 8.8, platelet count 285. A lateralized renal function are normal. Blood sugars are running between 125 and 201. Discharge planning has been changed to [facility] for subacute rehab. 02/27: Patient is postop day #2 following stage I revision arthroplasty left knee. Patient continues to have pain in the left knee. Cardiology has cleared the patient to resume Plavix if okay with surgery. Plan to continue current cardiac medications and follow with Dr. Valencia in the outpatient setting. Patient has been afebrile, heart rate 85, blood pressure 96/55, pulse ox 97% on room air. Repeat blood work reveals WBC 5.2, hemoglobin 7.4, platelet count 225. Currently blood glucose running between 123 and 192. Patient is continued on nafcillin. Wound culture is presumptive staph aureus. Anticipate discharge once sensitivity is completed. Discharge plan has changed from [facility] to [facility]. 02/28: Patient is post operative day #3 is laying down in bed he continues to have significant pain in the left knee he is not able to extend his knee at all, I've talked to orthopedic service and an x-ray of the left knee was ordered for further evaluation, as as the knee joint is dislocated posteriorly otherwise no evidence of acute disease, he was recommended to start the patient on muscle relaxer and to continue physical therapy, patient will be kept in the hospital for another 2 days prior to the discharge to the [facility] hopefully the next 24 hours if he is able to move his knee. REVIEW OF SYSTEMS: Constitutional: negative for fever, or chills, no night sweats, fatigue , positive for weight loss. HEENT: No headache. No blurred vision or double vision, no loss of vision. No loss of Hearing, no ringing in the ears, no dizziness. No nasal drainage or congestion. No epistaxis. No sore throat. Respiratory: No shortness of breath, no cough, no sputum production. No wheezing. Reports dyspnea with activity which is chronic. Cardiovascular: No chest pain, no lower extremity edema. No palpitations. No paroxysmal nocturnal dyspnea. No orthopnea. No lightheadedness or dizziness. No syncopal episodes. Gastrointestinal: Reports no abdominal pain. No nausea, vomiting. No diarrhea. No constipation. No bloody or tarry stools reports loss of appetite. Genitourinary: No dysuria, increased frequency, urgency. Reported urinary retention. Musculoskeletal: Positive for myalgias. positive for muscle weakness, Positive for gait dysfunction, no frequent falls, positive for significant left knee pain status post surgery, positive for low back pain . Integumentary: decubitus ulcer sacrum, no lesions. No rash or pruritus. brpositive for bruising. No change in hair or nails. Neurologic: No aphasia. No facial droop. No change in mentation. No head injury. No headache. No paralysis. No paresthesia. Psychiatric: No depression. No anxiety. No mood swings. Endocrine: Noted mildly abnormal blood sugars. No weight change. PHYSICAL EXAMINATION: General: This is 75-year-old male resting in bed and appears to be in no acute distress. HEENT: Head is atraumatic, normocephalic, pupils were equal round reactive to light and recommendation, sclera nonicteric, conjunctivae were pale, mucous membranes of the mouth are somewhat dry. Neck: Supple, no JVP, normal carotid upstroke bilaterally, no lymphadenopathy. Chest: Decreased breath sounds at the bases, few rhonchi, no extremity wheezes, no chest wall tenderness, no intercostal retractions. Heart: First heart sound is normal, second heart sound is normal there is systolic ejection murmur 2/6 left sternal border. Abdomen: Soft, nontender, nondistended, positive bowel sounds, no hepatosplenomegaly Extremities: There is no edema no calf tenderness DP + 1 bilaterally, left knee with significant edema and decreased range of motion. Dressing in place to the left knee. Left lower extremity with increased edema. Skin: There is a crescent shaped stage 2-3 decubitus ulcer in the coccyx area with clean granulation tissue at the base, we'll continue currently with Hydrofera Blue wound dressing as per infectious disease. Neurologic examination: Patient is awake alert and oriented X3, cranial nerves II-12 appear grossly intact, muscle power were 5 out of 5 in upper extremities and 4 out of 5 in the right lower extremity and 2 out of 5 in the left lower extremity due to pain. ASSESSMENT AND PLAN: 1. MSSA left knee joint infection. Status post Stage 1 Revision left total knee arthroplasty, 02/25. Continue the patient on IV antibiotic in the form of nafcillin 2 gram IV piggyback every 4 hours, blood cultures in process. Wound cultures obtained in the OR are presumptive staph aureus. Patient is followed by infectious disease. PICC has been placed. 2. Stage III crescent shaped decubitus ulcer in the coccyx area. Continue with current dressing as per ID, turn the patient every 2 hours, keep off his back at all the time along with adding Glucerna TID. 3. History of recent septic arthritis of the left knee and MSSA bacteremia s/p debridement of the left knee i the past status post stage I revision left total knee arthroplasty. 4. Recent left heart catheterization with PCI of the RCA on 07/30/2020 Continue patient on aspirin 81 g once every day, discontinue Plavix, continue metoprolol 50 mg orally twice every day, continue atorvastatin 80 mg orally once every day. 5. Hypertension and hypertensive cardiovascular disease. Continue metoprolol 50 mg orally twice every day. 6. Hyperlipidemia. Continue patient on atorvastatin 80 mg orally once every day. 7. Diabetes mellitus type 2. Start the patient on Farxiga 5 mg orally daily along with SSI and Janumet 100/1000 g orally once every day, monitor glucose level before each meal and at bedtime. 8. History of prostate cance status post rotation. Stable at this time. 9. 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 Continue current pain management. 10. Urinary retention requiring Shelley catheter placement. Patient will need to circumcision as an elective procedure at a later date. 11. DVT prophylaxis. Lovenox 40 mg subcutaneously every 24 hours. 12. GI prophylaxis. Protonix 40 mg orally twice daily. Patient is full code. DISCHARGE PLAN [facility] for subacute rehab. Objective - Vital Signs Vital signs: Vital Signs Temp 98.6 F 02/28/21 14:00 Pulse 89 02/28/21 14:00 Resp 16 02/28/21 14:00 BP 138/70 02/28/21 14:00 Pulse Ox 100 02/28/21 14:00 Intake & Output 02/27/21 02/28/21 02/28/21 18:59 06:59 18:59 Output Total 400 1300 1300 Balance -400 -1300 -1300 Weight 90.718 kg Output: Urine 400 1300 1300 Other: Voiding Method Indwelling Catheter Indwelling Catheter Indwelling Catheter # Bowel Movements 1 2 - Labs CBC & Chem 7: 02/28/21 06:55 02/28/21 06:55 Labs: Abnormal Lab Results - Last 24 Hours (Table) 02/27/21 02/28/21 02/28/21 Range/Units 21:11 06:55 06:55 WBC 4.39 L (4.50-10.00) X 10*3/uL RBC 2.64 L (4.40-5.60) X 10*6/uL Hgb 7.5 L (13.0-17.0) g/dL Hct 24.3 L (39.6-50.0) % MCHC 30.9 L (32.0-37.0) g/dL RDW 16.1 H (11.5-14.5) % Lymphocytes # 0.74 L (0.90-5.00) X 10*3/uL Eosinophils # 0 L (0.04-0.35) X 10*3/uL Est GFR (CKD-EPI)NonAf 58.4 L (60.0-200.0) POC Glucose (mg/dL) 153 H (75-99) mg/dL Calcium 7.7 L (8.7-10.3) mg/dL Total Bilirubin 0.20 L (0.30-1.20) mg/dL AST 12 L (14-35) U/L ALT 7 L (10-49) U/L Total Protein 5.1 L (6.2-8.2) g/dL Albumin 2.9 L (3.8-4.9) g/dL Albumin/Globulin Ratio 1.32 L (1.60-3.17) g/dL 02/28/21 02/28/21 02/28/21 Range/Units 07:10 11:20 16:22 WBC (4.50-10.00) X 10*3/uL RBC (4.40-5.60) X 10*6/uL Hgb (13.0-17.0) g/dL Hct (39.6-50.0) % MCHC (32.0-37.0) g/dL RDW (11.5-14.5) % Lymphocytes # (0.90-5.00) X 10*3/uL Eosinophils # (0.04-0.35) X 10*3/uL Est GFR (CKD-EPI)NonAf (60.0-200.0) POC Glucose (mg/dL) 134 H 150 H 126 H (75-99) mg/dL Calcium (8.7-10.3) mg/dL Total Bilirubin (0.30-1.20) mg/dL AST (14-35) U/L ALT (10-49) U/L Total Protein (6.2-8.2) g/dL Albumin (3.8-4.9) g/dL Albumin/Globulin Ratio (1.60-3.17) g/dL Microbiology - Last 24 Hours (Table) 02/23/21 12:49 Blood Culture - Preliminary Blood No Growth after 120 hours 02/23/21 12:51 Blood Culture - Preliminary Blood No Growth after 120 hours 02/23/21 09:45 Blood Culture - Preliminary Blood No Growth after 120 hours 02/23/21 09:30 Blood Culture - Preliminary Blood No Growth after 120 hours 02/25/21 13:56 Anaerobic Culture - Preliminary Knee - Left 02/25/21 13:56 Anaerobic Culture - Preliminary Knee - Left 02/25/21 13:56 Wound Culture - Preliminary Knee - Left Presumptive Staph aureus 02/25/21 13:56 Gram Stain - Final Knee - Left Wound Culture - Final Staphylococcus aureus
--- NOTE | 2021-02-28 18:10 | PN ---
PROGRESS NOTE DATE OF SERVICE: 02/28/2021 REASON FOR FOLLOWUP: 1. Left knee septic arthritis. 2. Sacral pressure ulcer. INTERVAL HISTORY: The patient is afebrile. The patient is breathing comfortably. No chest pain, shortness of breath or cough. No abdominal pain or worsening pain to the left knee area. PHYSICAL EXAMINATION: Blood pressure 138/70, pulse of 89, temperature 98.6. He is 100% on room air. General description is an elderly male lying in bed in no distress. Respiratory system: Unlabored breathing, clear to auscultation anteriorly. Heart S1, S2. Regular rate and rhythm. Abdomen soft, no tenderness. Left knee remains swollen. No redness or drainage. LABS: Hemoglobin is 7.5, white count 4.39, creatinine is 1.2. DIAGNOSTIC IMPRESSION AND PLAN: 1. Patient with MSSA left knee septic arthritis, on nafcillin. Antibiotic will be adjusted to cefazolin 2 grams q.8 hours that the patient will need for 6 weeks and close outpatient followup. 2. Sacral pressure ulcer. No cellulitis. Local care with Hydrofera Blue dressing, to be changed q.48 hours. Continue with supportive care. MMODL / IJN: [id number] /
[2021-02-28 20:23] LABS: Glucose,Whole Blood 125 mg/dL (75-99)
[2021-02-28] MEDS: ATORVASTATIN 80 MG TAB PO SCH (21:04)
[2021-02-28] MEDS: NON FORMULARY DRUG (Dapagliflozin Propanediol [Farxiga] 5 MG Tablet) PO SCH (21:07)
[2021-03-01] MEDS: HYDROmorphone 0.5 MG/0.5 ML SYRINGE IVP PRN ×6 (01:10→22:04)
[2021-03-01] MEDS: HYDROcodone/APAP 7.5-325MG 1 EACH TAB PO PRN ×4 (03:25→23:49)
[2021-03-01 06:53] LABS: Glucose,Whole Blood 111 mg/dL (75-99)
[2021-03-01] MEDS: ASPIRIN 81 MG PO SCH (07:29)
[2021-03-01] MEDS: SENNOSIDES-DOCUSATE SODIUM 1 EACH TAB PO SCH (07:29)
[2021-03-01] MEDS: LINAGLIPTIN 5 MG TABLET PO SCH (07:29)
[2021-03-01] MEDS: LACTOBACILLUS ACIDOPH & BULGAR 1 EACH PACKET PO SCH ×2 (07:29→21:58)
[2021-03-01] MEDS: PANTOPRAZOLE 40 MG TABLET PO SCH (07:29)
[2021-03-01] MEDS: CLOPIDOGREL 75 MG TAB PO SCH (07:29)
[2021-03-01] MEDS: TAMSULOSIN 0.4 MG CAP.ER.24H PO SCH (07:29)
[2021-03-01] MEDS: LACTULOSE 20 GM/30 ML CUP PO SCH ×2 (07:30→21:59)
[2021-03-01] MEDS: metFORMIN 500 MG TAB PO SCH ×2 (07:30→21:59)
[2021-03-01] MEDS: METOPROLOL TARTRATE 50 MG TAB PO SCH ×2 (07:30→21:59)
[2021-03-01] MEDS: ENOXAPARIN 40 MG/0.4 ML SYRINGE SQ SCH (07:30)
[2021-03-01] MEDS: INSULIN ASPART (NovoLOG) 100 UNIT/ML VIAL SQ SCH ×4 (07:40→21:58)
[2021-03-01] MEDS: LACTATED RINGERS 1,000 ML IV SCH (07:40)
--- NOTE | 2021-03-01 09:41 | P.PN ---
Subjective Progress Note Date: 03/01/21 Progress Note Date: 03/01/21 HISTORY OF PRESENT ILLNESS: This is a 75-year-old male patient of mine with previous medical history significant for coronary artery disease status post percutaneous coronary intervention and stent placement last one was in 12/13/2019 in the mid RCA at that time he was found to have a totally occluded obtuse marginal one of the LCx, with collaterals from the PDA, hypertension and hypertensive cardiovascular disease, hyperlipidemia, diabetes mellitus type 2, diabetic polyneuropathy, 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 as well as radio frequency ablation, prostate cancer status post radiation therapy, patient took himself off the Plavix due to significant bruising and bleeding against his car diologist recommendation and he was taken a baby aspirin alone, 07/28/[address] suffered from inferior wall ST elevation myocardial infarction patient was taken to the catholic priest and an attempted angioplasty of a completely occluded RCA had failed and the patient was transferred to [facility] for complex angioplasty of the occluded RCA, apparently patient did have 2 stents placement in the RCA and he was discharged from [facility]. Patient then had admission August 05 through August 16 at which time he was treated for septic arthritis of the left knee with persistent MSSA bacteremia status post I&D of the left total knee. He also suffered from lactic acidosis, thrombocytopenia secondary to sepsis, acute kidney injury. Patient was stabilized and discharged to [facility] for subacute rehab. Patient was continued on for a 6 week course, Unfortunately, patient developed C. difficile colitis treated with oral vancomycin. Patient has done very little physical therapy at that time and stayed in bed most the time, developed decubitus ulcer with worsening to the coccyx area, has been under the care of Dr. Cedillo for quite sometimes and his decubitus ulcer is getting a lot closer to heal, patient was seen in my office a few weeks back and he was seen earlier by Dr. Choi were recommended for the patient to go for removal of the hardware and placement of antibiotic spacer b ecause of arthrocentesis that was done in 01/22/2021 which showed methicillin sensitive septic coccus aureus that is sensitive to penicillin and oxacillin and the patient was seen in the office for preoperative medical years however after discussing the matter with ID was recommended to hold off any surgical intervention until the decubitus ulcer healed completely patient presented to the emergency department today with increased swelling and pain in the left knee and patient decided to go for surgical intervention at this point in time because his could not take the pain anymore. Patient will be admitted to the hospital will obtain blood culture, we'll ask orthopedic surgery for consultati on for hardware removal and placement of antibiotic spacer, I will start the patient on IV antibiotic in the form of nafcillin for gram IV piggyback every 4 hours, obtain ID consultation, cardiology consultation, as well as orthopedic consultation we will organize his treatment plan and the patient will likely will require to go back to [facility] for physical therapy and rehabilitation 02/24: Patient has been seen by cardiology, Dr. Valencia, and cleared for Plavix to be held, continue aspirin. Orthopedics is following and made patient nothing by mouth with plan for stayed with one revision left total knee arthroplasty tomorrow. Dr. Cedillo is recommending continuing nafcillin, Hydrofera Blue dressing to the sacral pressure ulcer. Patient has been afebrile, heart rate 71, blood pressure 137/78, pulse ox 90% on room air. WBC 3.8, hemoglobin 9.8, platelet count 241. Blood sugars are running between 110 and 225. Blood culture no growth at 24 hours. 02/25: Patient has been afebrile, heart rate 99, blood pressure 120/81, pulse ox 90% on room air. Blood sugars are running between 120 -161. He is scheduled for surgery today with orthopedics. Patient states he is having more and more pain in his knee. He is also continued complaining of constipation for which Senokot S and lactulose scheduled. Discussed discharge plan with the patient and he is planning to go home with home care, daughter is going to stop in in the morning and get him TV dinners. He also has a wheelchair that he plans to scoot around in.. This may not be the best discharge plan for him and will be rate addressed closer to discharge time. Awaiting finalization of blood culture to order PICC line insertion. Patient is continued on nafcillin. 02/26: Patient is status post stage I revision left total knee arthroplasty with removal of components and placement of antibiotic spacer yesterday trough. The patient is having urinary retention and required straight cath done 2 times during the night for 400 and then 500, consult with Dr. Ashley and patient will be scheduled for circumcision as an elective outpatient procedure. Shelley catheter will be placed to patient continues to have urinary retention. Patient is complaining of stiffness to the left knee with serosanguineous drainage. Patient has been afebrile, heart rate 84, blood pressure 106/69, pulse ox 94% on room air. Repeat blood work reveals WBC 5.4, hemoglobin 8.8, platelet count 285. A lateralized renal function are normal. Blood sugars are running between 125 and 201. Discharge planning has been changed to [facility] for subacute rehab. 02/27: Patient is postop day #2 following stage I revision arthroplasty left knee. Patient continues to have pain in the left knee. Cardiology has cleared the patient to resume Plavix if okay with surgery. Plan to continue current cardiac medications and follow with Dr. Valencia in the outpatient setting. Patient has been afebrile, heart rate 85, blood pressure 96/55, pulse ox 97% on room air. Repeat blood work reveals WBC 5.2, hemoglobin 7.4, platelet count 225. Currently blood glucose running between 123 and 192. Patient is continued on nafcillin. Wound culture is presumptive staph aureus. Anticipate discharge once sensitivity is completed. Discharge plan has changed from [facility] to [facility]. 02/28: Patient is post operative day #3 is laying down in bed he continues to have significant pain in the left knee he is not able to extend his knee at all, I've talked to orthopedic service and an x-ray of the left knee was ordered for further evaluation, as as the knee joint is dislocated posteriorly otherwise no evidence of acute disease, he was recommended to start the patient on muscle relaxer and to continue physical therapy, patient will be kept in the hospital for another 2 days prior to the discharge to the [facility] hopefully the next 24 hours if he is able to move his knee. 03/01: Patient is laying down in bed in no apparent distress, he stated his pain is much better this is post operative day #4, he continues to be flexing his left knee is not able to extend his knee at this point at all we'll start the patient on small dose of muscle relaxer however I believe the patient is not able to flex his knee at this point in time and orthopedic surgery will reevaluate the patient again had an x-ray yesterday that did show posterior dislocation of the knee joint. REVIEW OF SYSTEMS: Constitutional: negative for fever, or chills, no night sweats, fatigue , positive for weight loss. HEENT: No headache. No blurred vision or double vision, no loss of vision. No loss of Hearing, no ringing in the ears, no dizziness. No nasal drainage or congestion. No epistaxis. No sore throat. Respiratory: No shortness of breath, no cough, no sputum production. No wheezing. Reports dyspnea with activity which is chronic. Cardiovascular: No chest pain, no lower extremity edema. No palpitations. No paroxysmal nocturnal dyspnea. No orthopnea. No lightheadedness or dizziness. No syncopal episodes. Gastrointestinal: Reports no abdominal pain. No nausea, vomiting. No diarrhea. No constipation. No bloody or tarry stools reports loss of appetite. Genitourinary: No dysuria, increased frequency, urgency. Reported urinary retention. Musculoskeletal: Positive for myalgias. positive for muscle weakness, Positive for gait dysfunction, no frequent falls, positive for significant left knee pain status post surgery, positive for low back pain Integumentary: decubitus ulcer sacrum, no lesions. No rash or pruritus. br positive for bruising. No change in hair or nails. Neurologic: No aphasia. No facial droop. No change in mentation. No head injury. No headache. No paralysis. No paresthesia. Psychiatric: No depression. No anxiety. No mood swings. Endocrine: Noted mildly abnormal blood sugars. No weight change. PHYSICAL EXAMINATION: General: This is 75-year-old male resting in bed and appears to be in no acute distress. HEENT: Head is atraumatic, normocephalic, pupils were equal round reactive to light and recommendation, sclera nonicteric, conjunctivae were pale, mucous membranes of the mouth are somewhat dry. Neck: Supple, no JVP, normal carotid upstroke bilaterally, no lymphadenopathy. Chest: Decreased breath sounds at the bases, few rhonchi, no extremity wheezes, no chest wall tenderness, no intercostal retractions. Heart: First heart sound is normal, second heart sound is normal there is systolic ejection murmur 2/6 left sternal border. Abdomen: Soft, nontender, nondistended, positive bowel sounds, no hepatosplenomegaly Extremities: There is no edema no calf tenderness DP + 1 bilaterally, left knee with significant edema and decreased range of motion. Dressing in place to the left knee. Left lower extremity with increased edema, knee is flexed almost 90 and he is not able to move it at all Skin: There is a crescent shaped stage 2-3 decubitus ulcer in the coccyx area with clean granulation tissue at the base, we'll continue currently with Hyd rofera Blue wound dressing as per infectious disease. Neurologic examination: Patient is awake alert and oriented X3, cranial nerves II-12 appear grossly intact, muscle power were 5 out of 5 in upper extremities and 4 out of 5 in the right lower extremity and 2 out of 5 in the left lower extremity due to pain. ASSESSMENT AND PLAN: 1. MSSA left knee joint infection. Status post Stage 1 Revision left total knee arthroplasty, 02/25. Continue the patient on IV antibiotic in the form of nafcillin 2 gram IV piggyback every 4 hours, blood cultures in process. Wound cultures obtained in the OR are presumptive staph aureus. Patient is followed by infectious disease. PICC has been placed. 2. Stage III crescent shaped decubitus ulcer in the coccyx area. Continue with current dressing as per ID, turn the patient every 2 hours, keep off his back at all the time along with adding Glucerna TID. 3. History of recent septic arthritis of the left knee and MSSA bacteremia s/p debridement of the left knee i the past status post stage I revision left total knee arthroplasty. 4. Recent left heart catheterization with PCI of the RCA on 07/30/2020 Continue patient on aspirin 81 g once every day, discontinue Plavix, continue metoprolol 50 mg orally twice every day, continue atorvastatin 80 mg orally once every day. 5. Hypertension and hypertensive cardiovascular disease. Continue metoprolol 50 mg orally twice every day. 6. Hyperlipidemia. Continue patient on atorvastatin 80 mg orally once every day. 7. Diabetes mellitus type 2. Start the patient on Farxiga 5 mg orally daily along with SSI and Janumet 100/1000 g orally once every day, monitor glucose level before each meal and at bedtime. 8. History of prostate cance status post rotation. Stable at this time. 9. 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 Continue current pain management. 10. Urinary retention requiring Shelley catheter placement. Patient will need to circumcision as an elective procedure at a later date. 11. DVT prophylaxis. Lovenox 40 mg subcutaneously every 24 hours. 12. GI prophylaxis. Protonix 40 mg orally twice daily. Patient is full code. DISCHARGE PLAN [facility] for subacute rehab on Wednesday. Objective - Vital Signs Vital signs: Vital Signs Temp 98 F 03/01/21 07:06 Pulse 75 03/01/21 07:06 Resp 16 03/01/21 07:06 BP 134/72 03/01/21 07:06 Pulse Ox 98 03/01/21 07:06 Intake & Output 02/28/21 03/01/21 03/01/21 18:59 06:59 18:59 Intake Total 880 Output Total 1300 Balance -1300 880 Intake: Intake, IV Titration 880 Amount Lactated Ringers 1,000 ml 780 @ 20 mls/hr IV .Q24H COUNTS INCLUDE 234 BEDS AT THE [facility] Rx#:[id number] ceFAZolin 2 gm In Sodium 100 Chloride 0.9% 50 ml @ 100 mls/hr IVPB Q8HR COUNTS INCLUDE 234 BEDS AT THE [facility] Rx# :[id number] Output: Urine 1300 Other: Voiding Method Indwelling Catheter Indwelling Catheter # Bowel Movements 2 - Labs CBC & Chem 7: 02/28/21 06:55 02/28/21 06:55 Labs: Abnormal Lab Results - Last 24 Hours (Table) 02/28/21 02/28/21 02/28/21 Range/Units 06:55 06:55 11:20 WBC 4.39 L (4.50-10.00) X 10*3/uL RBC 2.64 L (4.40-5.60) X 10*6/uL Hgb 7.5 L (13.0-17.0) g/dL Hct 24.3 L (39.6-50.0) % MCHC 30.9 L (32.0-37.0) g/dL RDW 16.1 H (11.5-14.5) % Lymphocytes # 0.74 L (0.90-5.00) X 10*3/uL Eosinophils # 0 L (0.04-0.35) X 10*3/uL Est GFR (CKD-EPI)NonAf 58.4 L (60.0-200.0) POC Glucose (mg/dL) 150 H (75-99) mg/dL Calcium 7.7 L (8.7-10.3) mg/dL Total Bilirubin 0.20 L (0.30-1.20) mg/dL AST 12 L (14-35) U/L ALT 7 L (10-49) U/L Total Protein 5.1 L (6.2-8.2) g/dL Albumin 2.9 L (3.8-4.9) g/dL Albumin/Globulin Ratio 1.32 L (1.60-3.17) g/dL 02/28/21 02/28/21 03/01/21 Range/Units 16:22 20:22 06:51 WBC (4.50-10.00) X 10*3/uL RBC (4.40-5.60) X 10*6/uL Hgb (13.0-17.0) g/dL Hct (39.6-50.0) % MCHC (32.0-37.0) g/dL RDW (11.5-14.5) % Lymphocytes # (0.90-5.00) X 10*3/uL Eosinophils # (0.04-0.35) X 10*3/uL Est GFR (CKD-EPI)NonAf (60.0-200.0) POC Glucose (mg/dL) 126 H 125 H 111 H (75-99) mg/dL Calcium (8.7-10.3) mg/dL Total Bilirubin (0.30-1.20) mg/dL AST (14-35) U/L ALT (10-49) U/L Total Protein (6.2-8.2) g/dL Albumin (3.8-4.9) g/dL Albumin/Globulin Ratio (1.60-3.17) g/dL Microbiology - Last 24 Hours (Table) 02/25/21 13:56 Wound Culture - Preliminary Knee - Left Staphylococcus aureus 02/23/21 12:49 Blood Culture - Preliminary Blood No Growth after 120 hours 02/23/21 12:51 Blood Culture - Preliminary Blood No Growth after 120 hours 02/23/21 09:45 Blood Culture - Preliminary Blood No Growth after 120 hours 02/23/21 09:30 Blood Culture - Preliminary Blood No Growth after 120 hours
--- NOTE | 2021-03-01 09:55 | P.PN ---
Subjective Progress Note Date: 03/01/21 Principal diagnosis: Infected total left knee arthroplasty. Status post stage I revision total left knee arthroplasty. This is a 75-year-old gentleman that has been known to have an infection in his left total knee. He has failed conservative treatment and now presents for stage I revision of his left total knee with removal of components and placement of antibiotic spacer. The patient is postop day #4 status post stage I revision left total knee. He is states that his pain is improving slightly. He denies fever or chills. No nausea or vomiting. No history of diarrhea. Vital signs and labs are stable. Cultures are showing methicillin sensitive staph aureus. Objective - Vital Signs Vital signs: Vital Signs Temp 98 F 03/01/21 07:06 Pulse 75 03/01/21 07:06 Resp 16 03/01/21 07:06 BP 134/72 03/01/21 07:06 Pulse Ox 98 03/01/21 07:06 Intake & Output 02/28/21 03/01/21 03/01/21 18:59 06:59 18:59 Intake Total 880 Output Total 1300 Balance -1300 880 Intake: Intake, IV Titration 880 Amount Lactated Ringers 1,000 ml 780 @ 20 mls/hr IV .Q24H [facility] Rx#:[id number] ceFAZolin 2 gm In Sodium 100 Chloride 0.9% 50 ml @ 100 mls/hr IVPB Q8HR [facility] Rx# :[id number] Output: Urine 1300 Other: Voiding Method Indwelling Catheter Indwelling Catheter # Bowel Movements 2 - Exam This is a 75-year-old male in no acute distress. He is alert and oriented 3. He is up in chair with the help with physical therapy. He continues to hold his knee in a 90 flexion. He has full foot and ankle motion. Neurovascular status to the lower extremity is intact. - Labs CBC & Chem 7: 02/28/21 06:55 02/28/21 06:55 Labs: Abnormal Lab Results - Last 24 Hours (Table) 02/28/21 02/28/21 02/28/21 Range/Units 06:55 06:55 11:20 WBC 4.39 L (4.50-10.00) X 10*3/uL RBC 2.64 L (4.40-5.60) X 10*6/uL Hgb 7.5 L (13.0-17.0) g/dL Hct 24.3 L (39.6-50.0) % MCHC 30.9 L (32.0-37.0) g/dL RDW 16.1 H (11.5-14.5) % Lymphocytes # 0.74 L (0.90-5.00) X 10*3/uL Eosinophils # 0 L (0.04-0.35) X 10*3/uL Est GFR (CKD-EPI)NonAf 58.4 L (60.0-200.0) POC Glucose (mg/dL) 150 H (75-99) mg/dL Calcium 7.7 L (8.7-10.3) mg/dL Total Bilirubin 0.20 L (0.30-1.20) mg/dL AST 12 L (14-35) U/L ALT 7 L (10-49) U/L Total Protein 5.1 L (6.2-8.2) g/dL Albumin 2.9 L (3.8-4.9) g/dL Albumin/Globulin Ratio 1.32 L (1.60-3.17) g/dL 02/28/21 02/28/21 03/01/21 Range/Units 16:22 20:22 06:51 WBC (4.50-10.00) X 10*3/uL RBC (4.40-5.60) X 10*6/uL Hgb (13.0-17.0) g/dL Hct (39.6-50.0) % MCHC (32.0-37.0) g/dL RDW (11.5-14.5) % Lymphocytes # (0.90-5.00) X 10*3/uL Eosinophils # (0.04-0.35) X 10*3/uL Est GFR (CKD-EPI)NonAf (60.0-200.0) POC Glucose (mg/dL) 126 H 125 H 111 H (75-99) mg/dL Calcium (8.7-10.3) mg/dL Total Bilirubin (0.30-1.20) mg/dL AST (14-35) U/L ALT (10-49) U/L Total Protein (6.2-8.2) g/dL Albumin (3.8-4.9) g/dL Albumin/Globulin Ratio (1.60-3.17) g/dL Microbiology - Last 24 Hours (Table) 02/25/21 13:56 Wound Culture - Preliminary Knee - Left Staphylococcus aureus 02/23/21 12:49 Blood Culture - Preliminary Blood No Growth after 120 hours 02/23/21 12:51 Blood Culture - Preliminary Blood No Growth after 120 hours 02/23/21 09:45 Blood Culture - Preliminary Blood No Growth after 120 hours 02/23/21 09:30 Blood Culture - Preliminary Blood No Growth after 120 hours Assessment and Plan (1) Status post revision of total replacement of left knee Current Visit: Yes Status: Acute Code(s): Z96.652 - PRESENCE OF LEFT ARTIFICIAL KNEE JOINT SNOMED Code(s): 693554060963432 (2) Septic joint of left knee joint Current Visit: Yes Status: Acute Code(s): M00.9 - PYOGENIC ARTHRITIS, UNSPECIFIED SNOMED Code(s): 697687860 (3) S/P total knee arthroplasty Current Visit: No Status: Acute Code(s): Z96.659 - PRESENCE OF UNSPECIFIED ARTIFICIAL KNEE JOINT SNOMED Code(s): 6809676931059 Plan: The clinical findings are discussed with the patient. It is discussed with the patient that we do encourage him to attempt to extend the knee. The knee has some posterior subluxation on x-ray, primarily due to the fact that he is holding the knee in flexion. The spacer implant we will allow for some subluxation. He is encouraged to attempt to straighten the knee while in bed and up in chair. There is no other orthopedic intervention planned at this time. He may be transferred to inpatient rehab when cleared medically.
--- NOTE | 2021-03-01 10:12 | P.PN ---
Subjective Progress Note Date: 03/01/21 The patient's catheter can be removed for a voiding trial prior to discharge. If he voids without difficulty he should follow-up with in the office to schedule a circumcision which I think should be done before replacement of his knee prosthetic. If he can't void then a catheter should go and then again he should follow-up in our office. Objective - Vital Signs Vital signs: Vital Signs Temp 98 F 03/01/21 07:06 Pulse 75 03/01/21 07:06 Resp 16 03/01/21 07:06 BP 134/72 03/01/21 07:06 Pulse Ox 98 03/01/21 07:06 Intake & Output 02/28/21 03/01/21 03/01/21 18:59 06:59 18:59 Intake Total 880 Output Total 1300 Balance -1300 880 Intake: Intake, IV Titration 880 Amount Lactated Ringers 1,000 ml 780 @ 20 mls/hr IV .Q24H [facility] Rx#:[id number] ceFAZolin 2 gm In Sodium 100 Chloride 0.9% 50 ml @ 100 mls/hr IVPB Q8HR [facility] Rx# :[id number] Output: Urine 1300 Other: Voiding Method Indwelling Catheter Indwelling Catheter # Bowel Movements 2 - Labs CBC & Chem 7: 02/28/21 06:55 02/28/21 06:55 Labs: Abnormal Lab Results - Last 24 Hours (Table) 02/28/21 02/28/21 02/28/21 Range/Units 06:55 06:55 11:20 WBC 4.39 L (4.50-10.00) X 10*3/uL RBC 2.64 L (4.40-5.60) X 10*6/uL Hgb 7.5 L (13.0-17.0) g/dL Hct 24.3 L (39.6-50.0) % MCHC 30.9 L (32.0-37.0) g/dL RDW 16.1 H (11.5-14.5) % Lymphocytes # 0.74 L (0.90-5.00) X 10*3/uL Eosinophils # 0 L (0.04-0.35) X 10*3/uL Est GFR (CKD-EPI)NonAf 58.4 L (60.0-200.0) POC Glucose (mg/dL) 150 H (75-99) mg/dL Calcium 7.7 L (8.7-10.3) mg/dL Total Bilirubin 0.20 L (0.30-1.20) mg/dL AST 12 L (14-35) U/L ALT 7 L (10-49) U/L Total Protein 5.1 L (6.2-8.2) g/dL Albumin 2.9 L (3.8-4.9) g/dL Albumin/Globulin Ratio 1.32 L (1.60-3.17) g/dL 02/28/21 02/28/21 03/01/21 Range/Units 16:22 20:22 06:51 WBC (4.50-10.00) X 10*3/uL RBC (4.40-5.60) X 10*6/uL Hgb (13.0-17.0) g/dL Hct (39.6-50.0) % MCHC (32.0-37.0) g/dL RDW (11.5-14.5) % Lymphocytes # (0.90-5.00) X 10*3/uL Eosinophils # (0.04-0.35) X 10*3/uL Est GFR (CKD-EPI)NonAf (60.0-200.0) POC Glucose (mg/dL) 126 H 125 H 111 H (75-99) mg/dL Calcium (8.7-10.3) mg/dL Total Bilirubin (0.30-1.20) mg/dL AST (14-35) U/L ALT (10-49) U/L Total Protein (6.2-8.2) g/dL Albumin (3.8-4.9) g/dL Albumin/Globulin Ratio (1.60-3.17) g/dL Microbiology - Last 24 Hours (Table) 02/25/21 13:56 Wound Culture - Preliminary Knee - Left Staphylococcus aureus 02/23/21 12:49 Blood Culture - Preliminary Blood No Growth after 120 hours 02/23/21 12:51 Blood Culture - Preliminary Blood No Growth after 120 hours 02/23/21 09:45 Blood Culture - Preliminary Blood No Growth after 120 hours 02/23/21 09:30 Blood Culture - Preliminary Blood No Growth after 120 hours
[2021-03-01] MEDS ORDERED: SODIUM FERRIC GLUCONAT-SUCROSE 125 MG in SODIUM CHLORIDE 0.9% 100 ML IVPB ONE (11:00)
[2021-03-01] MEDS: SODIUM CHLORIDE 0.9% 1,000 ML IV SCH (12:23)
[2021-03-01] MEDS: BACLOFEN 10 MG TAB PO PRN ×2 (14:32→22:03)
[2021-03-01 16:24] LABS: Glucose,Whole Blood 107 mg/dL (75-99)
[2021-03-01 21:10] LABS: Glucose,Whole Blood 126 mg/dL (75-99)
--- NOTE | 2021-03-01 21:54 | PN ---
PROGRESS NOTE DATE OF SERVICE: 03/01/2021 REASON FOR FOLLOWUP: 1. Left knee septic arthritis. 2. Sacral pressure ulcer. INTERVAL HISTORY: The patient is afebrile. The patient is breathing comfortably. Still complaining of pain to the left knee area. No chest pain, shortness of breath or cough. No abdominal pain or diarrhea. PHYSICAL EXAMINATION: Blood pressure 131/67, pulse of 79, temperature 98.5. He is 99% on room air. General description is an elderly male lying in bed in no distress. Respiratory system: Unlabored breathing, decreased intensity of breath sounds. No wheeze. Heart S1, S2. Regular rate and rhythm. Abdomen soft, no tenderness. LABS: No new labs have been obtained today. DIAGNOSTIC IMPRESSION AND PLAN: 1. Patient with left knee septic arthritis. Culture positive for MSSA. Patient is covered cefazolin 2 grams q.8 hours. Plan is for 6 weeks of antibiotics. 2. Patient with sacral pressure ulcer. Local care with Hydrofera Blue dressing. Continue with supportive care. MMODL / IJN: [id number] /
[2021-03-01] MEDS: ATORVASTATIN 80 MG TAB PO SCH (21:59)
[2021-03-02] MEDS: SODIUM CHLORIDE 0.9% 1,000 ML IV SCH ×2 (01:40→17:26)
[2021-03-02] MEDS: BACLOFEN 10 MG TAB PO PRN ×2 (06:47→20:03)
[2021-03-02] MEDS: HYDROcodone/APAP 7.5-325MG 1 EACH TAB PO PRN ×2 (06:47→17:25)
[2021-03-02 07:01] LABS: Glucose,Whole Blood 104 mg/dL (75-99)
[2021-03-02] MEDS: INSULIN ASPART (NovoLOG) 100 UNIT/ML VIAL SQ SCH ×4 (08:09→20:38)
[2021-03-02] MEDS: metFORMIN 500 MG TAB PO SCH ×2 (08:10→20:02)
[2021-03-02] MEDS: LACTOBACILLUS ACIDOPH & BULGAR 1 EACH PACKET PO SCH ×2 (08:10→20:01)
[2021-03-02] MEDS: LACTULOSE 20 GM/30 ML CUP PO SCH ×2 (08:11→20:39)
[2021-03-02] MEDS: ENOXAPARIN 40 MG/0.4 ML SYRINGE SQ SCH (08:11)
[2021-03-02] MEDS: LINAGLIPTIN 5 MG TABLET PO SCH (08:11)
[2021-03-02] MEDS: TAMSULOSIN 0.4 MG CAP.ER.24H PO SCH (08:11)
[2021-03-02] MEDS: CLOPIDOGREL 75 MG TAB PO SCH (08:11)
[2021-03-02] MEDS: ASPIRIN 81 MG PO SCH (08:11)
[2021-03-02] MEDS: SENNOSIDES-DOCUSATE SODIUM 1 EACH TAB PO SCH (08:11)
[2021-03-02] MEDS: PANTOPRAZOLE 40 MG TABLET PO SCH (08:12)
[2021-03-02] MEDS: METOPROLOL TARTRATE 50 MG TAB PO SCH ×2 (08:12→20:02)
--- NOTE | 2021-03-02 08:36 | P.PN ---
Subjective Progress Note Date: 03/02/21 Progress Note Date: 03/01/21 HISTORY OF PRESENT ILLNESS: This is a 75-year-old male patient of mine with previous medical history significant for coronary artery disease status post percutaneous coronary intervention and stent placement last one was in 12/13/2019 in the mid RCA at that time he was found to have a totally occluded obtuse marginal one of the LCx, with collaterals from the PDA, hypertension and hypertensive cardiovascular disease, hyperlipidemia, diabetes mellitus type 2, diabetic polyneuropathy, 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 as well as radio frequency ablation, prostate cancer status post radiation therapy, patient took himself off the Plavix due to significant bruising and bleeding against his car diologist recommendation and he was taken a baby aspirin alone, 07/28/[address] suffered from inferior wall ST elevation myocardial infarction patient was taken to the microbiological laboratory technician and an attempted angioplasty of a completely occluded RCA had failed and the patient was transferred to [facility] for complex angioplasty of the occluded RCA, apparently patient did have 2 stents placement in the RCA and he was discharged from [facility]. Patient then had admission August 05 through August 16 at which time he was treated for septic arthritis of the left knee with persistent MSSA bacteremia status post I&D of the left total knee. He also suffered from lactic acidosis, thrombocytopenia secondary to sepsis, acute kidney injury. Patient was stabilized and discharged to [facility] for subacute rehab. Patient was continued on for a 6 week course, Unfortunately, patient developed C. difficile colitis treated with oral vancomycin. Patient has done very little physical therapy at that time and stayed in bed most the time, developed decubitus ulcer with worsening to the coccyx area, has been under the care of Dr. Cedillo for quite sometimes and his decubitus ulcer is getting a lot closer to heal, patient was seen in my office a few weeks back and he was seen earlier by Dr. Choi were recommended for the patient to go for removal of the hardware and placement of antibiotic spacer b ecause of arthrocentesis that was done in 01/22/2021 which showed methicillin sensitive septic coccus aureus that is sensitive to penicillin and oxacillin and the patient was seen in the office for preoperative medical years however after discussing the matter with ID was recommended to hold off any surgical intervention until the decubitus ulcer healed completely patient presented to the emergency department today with increased swelling and pain in the left knee and patient decided to go for surgical intervention at this point in time because his could not take the pain anymore. Patient will be admitted to the hospital will obtain blood culture, we'll ask orthopedic surgery for consultati on for hardware removal and placement of antibiotic spacer, I will start the patient on IV antibiotic in the form of nafcillin for gram IV piggyback every 4 hours, obtain ID consultation, cardiology consultation, as well as orthopedic consultation we will organize his treatment plan and the patient will likely will require to go back to [facility] for physical therapy and rehabilitation 02/24: Patient has been seen by cardiology, Dr. Valencia, and cleared for Plavix to be held, continue aspirin. Orthopedics is following and made patient nothing by mouth with plan for stayed with one revision left total knee arthroplasty tomorrow. Dr. Cedillo is recommending continuing nafcillin, Hydrofera Blue dressing to the sacral pressure ulcer. Patient has been afebrile, heart rate 71, blood pressure 137/78, pulse ox 90% on room air. WBC 3.8, hemoglobin 9.8, platelet count 241. Blood sugars are running between 110 and 225. Blood culture no growth at 24 hours. 02/25: Patient has been afebrile, heart rate 99, blood pressure 120/81, pulse ox 90% on room air. Blood sugars are running between 120 -161. He is scheduled for surgery today with orthopedics. Patient states he is having more and more pain in his knee. He is also continued complaining of constipation for which Senokot S and lactulose scheduled. Discussed discharge plan with the patient and he is planning to go home with home care, daughter is going to stop in in the morning and get him TV dinners. He also has a wheelchair that he plans to scoot around in.. This may not be the best discharge plan for him and will be rate addressed closer to discharge time. Awaiting finalization of blood culture to order PICC line insertion. Patient is continued on nafcillin. 02/26: Patient is status post stage I revision left total knee arthroplasty with removal of components and placement of antibiotic spacer yesterday trough. The patient is having urinary retention and required straight cath done 2 times during the night for 400 and then 500, consult with Dr. Ashley and patient will be scheduled for circumcision as an elective outpatient procedure. Shelley catheter will be placed to patient continues to have urinary retention. Patient is complaining of stiffness to the left knee with serosanguineous drainage. Patient has been afebrile, heart rate 84, blood pressure 106/69, pulse ox 94% on room air. Repeat blood work reveals WBC 5.4, hemoglobin 8.8, platelet count 285. A lateralized renal function are normal. Blood sugars are running between 125 and 201. Discharge planning has been changed to [facility] for subacute rehab. 02/27: Patient is postop day #2 following stage I revision arthroplasty left knee. Patient continues to have pain in the left knee. Cardiology has cleared the patient to resume Plavix if okay with surgery. Plan to continue current cardiac medications and follow with Dr. Valencia in the outpatient setting. Patient has been afebrile, heart rate 85, blood pressure 96/55, pulse ox 97% on room air. Repeat blood work reveals WBC 5.2, hemoglobin 7.4, platelet count 225. Currently blood glucose running between 123 and 192. Patient is continued on nafcillin. Wound culture is presumptive staph aureus. Anticipate discharge once sensitivity is completed. Discharge plan has changed from [facility] to [facility]. 02/28: Patient is post operative day #3 is laying down in bed he continues to have significant pain in the left knee he is not able to extend his knee at all, I've talked to orthopedic service and an x-ray of the left knee was ordered for further evaluation, as as the knee joint is dislocated posteriorly otherwise no evidence of acute disease, he was recommended to start the patient on muscle relaxer and to continue physical therapy, patient will be kept in the hospital for another 2 days prior to the discharge to the halfway hopefully the next 24 hours if he is able to move his knee. 03/01: Patient is laying down in bed in no apparent distress, he stated his pain is much better this is post operative day #4, he continues to be flexing his left knee is not able to extend his knee at this point at all we'll start the patient on small dose of muscle relaxer however I believe the patient is not able to flex his knee at this point in time and orthopedic surgery will reevaluate the patient again had an x-ray yesterday that did show posterior dislocation of the knee joint. 03/02: Patient is laying down in his side, to try to avoid worsening decubitus ulceration in the buttock area, he is post operative day #5 status post stage I revision left total knee arthroplasty that was done on February 25, patient was started yesterday on muscle relaxer to try to extend his left lower extremity he continues to have significant issues with his knee and he is not able to extend his leg at all, orthopedic surgeries following, x-ray did show posterior dislocation of the knee joint, patient was seen by infectious disease and he was started on cefazolin 2 g IV piggyback every 8 hours for the remainder of the treatment prior to his stage II revision, also patient would need to have circumcision done and between prior to his stage II revision. We'll try to arrange for this with urology. REVIEW OF SYSTEMS: Constitutional: negative for fever, or chills, no night sweats, fatigue , positive for weight loss. HEENT: No headache. No blurred vision or double vision, no loss of vision. No loss of Hearing, no ringing in the ears, no dizziness. No nasal drainage or congestion. No epistaxis. No sore throat. Respiratory: No shortness of breath, no cough, no sputum production. No wheezing. Reports dyspnea with activity which is chronic. Cardiovascular: No chest pain, no lower extremity edema. No palpitations. No paroxysmal nocturnal dyspnea. No orthopnea. No lightheadedness or dizziness. No syncopal episodes. Gastrointestinal: Reports no abdominal pain. No nausea, vomiting. No diarrhea. No constipation. No bloody or tarry stools reports loss of appetite. Genitourinary: No dysuria, increased frequency, urgency. Reported urinary retention. Musculoskeletal: Positive for myalgias. positive for muscle weakness, Positive for gait dysfunction, no frequent falls, positive for significant left knee pain status post surgery, positive for low back pain Integumentary: decubitus ulcer sacrum, no lesions. No rash or pruritus. brpositive for bruising. No change in hair or nails. Neurologic: No aphasia. No facial droop. No change in mentation. No head injury. No headache. No paralysis. No paresthesia. Psychiatric: No depression. No anxiety. No mood swings. Endocrine: Noted mildly abnormal blood sugars. No weight change. PHYSICAL EXAMINATION: General: This is 75-year-old male resting in bed and appears to be in no acute distress. HEENT: Head is atraumatic, normocephalic, pupils were equal round reactive to light and recommendation, sclera nonicteric, conjunctivae were pale, mucous membranes of the mouth are somewhat dry. Neck: Supple, no JVP, normal carotid upstroke bilaterally, no lymphadenopathy. Chest: Decreased breath sounds at the bases, few rhonchi, no extremity wheezes, no chest wall tenderness, no intercostal retractions. Heart: First heart sound is normal, second heart sound is normal there is systolic ejection murmur 2/6 left sternal border. Abdomen: Soft, nontender, nondistended, positive bowel sounds, no hepatosplenomegaly Extremities: There is no edema no calf tenderness DP + 1 bilaterally, left knee with significant edema and decreased range of motion. Dressing in place to the left knee. Left lower extremity with increased edema, knee is flexed almost 90 and he is not able to move it at all Skin: There is a crescent shaped stage 2-3 decubitus ulcer in the coccyx area with clean granulation tissue at the base, we'll continue currently with Hydrofera Blue wound dressing as per infectious disease. Neurologic examination: Patient is awake alert and oriented X3, cranial nerves II-12 appear grossly intact, muscle power were 5 out of 5 in upper extremities and 4 out of 5 in the right lower extremity and 2 out of 5 in the left lower extremity due to pain. ASSESSMENT AND PLAN: 1. MSSA left knee joint infection. Status post Stage 1 Revision left total knee arthroplasty, 02/25. Continue cefazolin 2 g IV piggyback every 8 hours, continue to monitor the patient very closely, the duration of the antibiotic is to be determined by infectious disease. Patient does have a PICC line in the left upper extremity. 2. Stage III crescent shaped decubitus ulcer in the coccyx area. Continue with current dressing as per ID, turn the patient every 2 hours, keep off his back at all the time along with adding Glucerna TID. 3. History of recent septic arthritis of the left knee and MSSA bacteremia s/p debridement of the left knee i the past status post stage I revision left total knee arthroplasty. 4. Recent left heart catheterization with PCI of the RCA on 07/30/2020 Continue patient on aspirin 81 g once every day, discontinue Plavix, continue metoprolol 50 mg orally twice every day, continue atorvastatin 80 mg orally once every day. 5. Hypertension and hypertensive cardiovascular disease. Continue metoprolol 50 mg orally twice every day. 6. Hyperlipidemia. Continue patient on atorvastatin 80 mg orally once every day. 7. Diabetes mellitus type 2. Start the patient on Farxiga 5 mg orally daily along with SSI and Janumet 100/1000 g orally once every day, monitor glucose level before each meal and at bedtime. 8. History of prostate cance status post rotation. Stable at this time. 9. 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 Continue current pain management. 10. Urinary retention requiring Shelley catheter placement. Patient will need to circumcision as an elective procedure at a later date. 11. DVT prophylaxis. Lovenox 40 mg subcutaneously every 24 hours. 12. GI prophylaxis. Protonix 40 mg orally twice daily. Patient is full code. DISCHARGE PLAN [facility] for subacute rehab on Wednesday. Objective - Vital Signs Vital signs: Vital Signs Temp 97.8 F 03/02/21 07:24 Pulse 79 03/02/21 07:24 Resp 18 03/02/21 07:24 BP 128/58 03/02/21 07:24 Pulse Ox 98 03/02/21 07:24 Intake & Output 03/01/21 03/02/21 03/02/21 18:59 06:59 18:59 Intake Total 1080 880 Output Total 700 700 Balance 380 180 Intake: Intake, IV Titration 880 Amount Sodium Chloride 0.9% 1, 780 000 ml @ 65 mls/hr IV . [id number] [facility] Rx#:[id number] ceFAZolin 2 gm In Sodium 100 Chloride 0.9% 50 ml @ 100 mls/hr IVPB Q8HR [facility] Rx# :[id number] Oral 1080 Output: Urine 700 700 Other: Voiding Method Indwelling Catheter Indwelling Catheter - Labs CBC & Chem 7: 02/28/21 06:55 02/28/21 06:55 Labs: Abnormal Lab Results - Last 24 Hours (Table) 03/01/21 03/01/21 03/02/21 Range/Units 16:22 21:09 06:59 POC Glucose (mg/dL) 107 H 126 H 104 H (75-99) mg/dL Microbiology - Last 24 Hours (Table) 02/25/21 13:56 Gram Stain - Final Knee - Left Wound Culture - Final Staphylococcus aureus 02/25/21 13:56 Anaerobic Culture - Final Knee - Left 02/25/21 13:56 Anaerobic Culture - Final Knee - Left 02/23/21 12:51 Blood Culture - Final Blood No Growth after 144 hours 02/23/21 12:49 Blood Culture - Final Blood No Growth after 144 hours 02/23/21 09:45 Blood Culture - Final Blood No Growth after 144 hours 02/23/21 09:30 Blood Culture - Final Blood No Growth after 144 hours
[2021-03-02] MEDS ORDERED: SODIUM FERRIC GLUCONAT-SUCROSE 125 MG in SODIUM CHLORIDE 0.9% 100 ML IVPB ONE (09:00)
[2021-03-02] MEDS: HYDROmorphone 0.5 MG/0.5 ML SYRINGE IVP PRN ×2 (10:13→19:57)
[2021-03-02] MEDS: DIAZEPAM 5 MG/ML 2 ML INJ IVP PRN ×2 (10:14→17:24)
--- NOTE | 2021-03-02 10:39 | P.PN ---
Subjective Progress Note Date: 03/02/21 Principal diagnosis: Infected total left knee arthroplasty. Status post stage I revision total left knee arthroplasty. This is a 75-year-old gentleman that has been known to have an infection in his left total knee. He has failed conservative treatment and now presents for stage I revision of his left total knee with removal of components and placement of antibiotic spacer. The patient is postop day #5 status post stage I revision left total knee. He is states that his pain is improving slightly. He continues to have difficulty extending the knee. He denies fever or chills. No nausea or vomiting. No history of diarrhea. Vital signs and labs are stable. Cultures are showing methicillin sensitive staph aureus. Objective - Vital Signs Vital signs: Vital Signs Temp 97.8 F 03/02/21 07:24 Pulse 79 03/02/21 07:24 Resp 18 03/02/21 07:24 BP 128/58 03/02/21 07:24 Pulse Ox 98 03/02/21 07:24 Intake & Output 03/01/21 03/02/21 03/02/21 18:59 06:59 18:59 Intake Total 1080 880 480 Output Total 700 700 Balance 380 180 480 Intake: Intake, IV Titration 880 Amount Sodium Chloride 0.9% 1, 780 000 ml @ 65 mls/hr IV . [id number] [facility] Rx#:[id number] ceFAZolin 2 gm In Sodium 100 Chloride 0.9% 50 ml @ 100 mls/hr IVPB Q8HR [facility] Rx# :[id number] Oral 1080 480 Output: Urine 700 700 Other: Voiding Method Indwelling Catheter Indwelling Catheter Indwelling Catheter - Exam This is a 75-year-old male in no acute distress. He is alert and oriented 3. He is up in chair with the help with physical therapy. He continues to hold his knee in a 90 flexion. He has full foot and ankle motion. Neurovascular status to the lower extremity is intact. - Labs CBC & Chem 7: 02/28/21 06:55 02/28/21 06:55 Labs: Abnormal Lab Results - Last 24 Hours (Table) 03/01/21 03/01/21 03/02/21 Range/Units 16:22 21:09 06:59 POC Glucose (mg/dL) 107 H 126 H 104 H (75-99) mg/dL Microbiology - Last 24 Hours (Table) 02/25/21 13:56 Gram Stain - Final Knee - Left Wound Culture - Final Staphylococcus aureus 02/25/21 13:56 Anaerobic Culture - Final Knee - Left 02/25/21 13:56 Anaerobic Culture - Final Knee - Left 02/23/21 12:51 Blood Culture - Final Blood No Growth after 144 hours 02/23/21 12:49 Blood Culture - Final Blood No Growth after 144 hours 02/23/21 09:45 Blood Culture - Final Blood No Growth after 144 hours 02/23/21 09:30 Blood Culture - Final Blood No Growth after 144 hours Assessment and Plan (1) Status post revision of total replacement of left knee Current Visit: Yes Status: Acute Code(s): Z96.652 - PRESENCE OF LEFT ARTIFICIAL KNEE JOINT SNOMED Code(s): 345547716891385 (2) Septic joint of left knee joint Current Visit: Yes Status: Acute Code(s): M00.9 - PYOGENIC ARTHRITIS, UNSPECIFIED SNOMED Code(s): 394718273 (3) S/P total knee arthroplasty Current Visit: No Status: Acute Code(s): Z96.659 - PRESENCE OF UNSPECIFIED ARTIFICIAL KNEE JOINT SNOMED Code(s): 8542605856733 Plan: The clinical findings are discussed with the patient. The patient is given IV Dilaudid and Valium and I was able to extend his knee to about 5. He is placed in a knee immobilizer to keep the knee straight while in bed. He may be discharged to inpatient rehab tomorrow if cleared medically.
[2021-03-02 11:25] LABS: Glucose,Whole Blood 111 mg/dL (75-99)
[2021-03-02 11:37] LABS: Basophils # (A) 0.01 X 10*3/uL (0.00-0.10); Basophils % (A) 0.2 %; Eosinophils # (A) 0 X 10*3/uL (0.04-0.35); Eosinophils % (A) 0 %; HCT 25.2 % (39.6-50.0); HGB 7.5 g/dL (13.0-17.0); Lymphocytes % (A) 10.5 %; MCH 27.7 pg (27.0-32.0); MCHC 29.8 g/dL (32.0-37.0); Mean Platelet Volume 9.8 fL (9.5-12.2); Neutrophils # (A) 5.31 X 10*3/uL (1.80-7.70); Neutrophils % (A) 79.7 %; Platelet Count 262 X 10*3/uL (140-440); RBC 2.71 X 10*6/uL (4.40-5.60); RDW 16.3 % (11.5-14.5); WBC 6.66 X 10*3/uL (4.50-10.00)
[2021-03-02 13:25] LABS: ALT <5 U/L (10-49); AST 15 U/L (14-35); African American GFR (CKD) 95.8 (60.0-200.0); Albumin 2.9 g/dL (3.8-4.9); Albumin/Globulin Ratio 1.32 (1.60-3.17); Alkaline Phosphatase 63 U/L (41-126); BUN/Creat Ratio 16.22 Ratio (12.00-20.00); Blood Urea Nitrogen 14.6 mg/dL (9.0-27.0); Calcium 7.8 mg/dL (8.7-10.3); Carbon Dioxide 24.8 mmol/L (21.6-31.8); Chloride 103 mmol/L (96-109); Globulin 2.2 g/dL (1.6-3.3); Glucose 99 mg/dL (70-110); Non-African American GFR(CKD) 82.7 (60.0-200.0); Potassium 3.9 mmol/L (3.5-5.5); Sodium 136 mmol/L (135-145); Total Protein 5.1 g/dL (6.2-8.2)
[2021-03-02 16:45] LABS: Glucose,Whole Blood 122 mg/dL (75-99)
[2021-03-02] MEDS: ATORVASTATIN 80 MG TAB PO SCH (20:03)
[2021-03-02 20:32] LABS: Glucose,Whole Blood 126 mg/dL (75-99)
--- NOTE | 2021-03-02 22:42 | PN ---
PROGRESS NOTE DATE OF SERVICE: 03/02/2021 REASON FOR FOLLOWUP: 1. Left knee septic arthritis. 2. Sacral pressure ulcer. INTERVAL HISTORY: The patient is afebrile. He is breathing comfortably. Still complaining of significant pain to the left knee area. No chest pain, shortness or breath or cough. No abdominal pain of pain to the lower back wound area. PHYSICAL EXAMINATION: Blood pressure 143/63 with a pulse of 84, temperature 98.1. He is 95% on room air. General description is an elderly male lying in bed in no distress. Respiratory system: Unlabored breathing, clear to auscultation. Heart S1, S2. Regular rate and rhythm. Abdomen soft, no tenderness. Left knee is currently wrapped up. No obvious drainage on the dressing. LABS: Hemoglobin is 10.1, white count 6.6, BUN of 14.6, creatinine 0.9. DIAGNOSTIC IMPRESSION AND PLAN: 1. Patient with MSSA left knee septic arthritis in this patient who is status post stage I procedure with antibiotic spacer placement. Patient is covered with cefazolin. He got a PICC line. Plan is for 6 weeks of antibiotic. 2. Sacral pressure ulcer. No cellulitis. Local care to continue with wound V.A.C. MMODL / IJN: [id number] /
[2021-03-03] MEDS: HYDROmorphone 0.5 MG/0.5 ML SYRINGE IVP PRN (02:20)
[2021-03-03] MEDS: HYDROcodone/APAP 7.5-325MG 1 EACH TAB PO PRN ×2 (03:05→08:26)
[2021-03-03 07:25] LABS: Glucose,Whole Blood 103 mg/dL (75-99)
[2021-03-03] MEDS: INSULIN ASPART (NovoLOG) 100 UNIT/ML VIAL SQ SCH (07:29)
[2021-03-03 07:34] LABS: ALT <6 U/L (4-49); AST 18 U/L (17-59); African American GFR (CKD) >90 (>60 ml/min/1.73 sqM); Albumin 2.3 g/dL (3.5-5.0); Albumin/Globulin Ratio 0.9; Alkaline Phosphatase 54 U/L (38-126); Anion Gap 5 mmol/L; Blood Urea Nitrogen 12 mg/dL (9-20); Calcium 7.8 mg/dL (8.4-10.2); Carbon Dioxide 25 mmol/L (22-30); Chloride 105 mmol/L (98-107); Globulin 2.5 g/dL; Glucose 98 mg/dL (74-99); Non-African American GFR(CKD) >90 (>60 ml/min/1.73 sqM); Potassium 3.7 mmol/L (3.5-5.1); Sodium 135 mmol/L (137-145); Total Bilirubin 0.5 mg/dL (0.2-1.3); Total Protein 4.8 g/dL (6.3-8.2)
[2021-03-03 08:10] VITALS: BP 138/67; PULSE 81; RESP 16; TEMP 99
--- NOTE | 2021-03-03 08:20 | P.PN ---
Subjective Progress Note Date: 03/03/21 This is a 75-year-old male who is status post stage I revision left total knee with removal of components and placement of an antibiotic spacer. This is postoperative day #6 and patient is seen and evaluated at bedside today. Patient denies any new complaints today. Objective - Vital Signs Vital signs: Vital Signs Temp 99.5 F 03/03/21 02:00 Pulse 80 03/03/21 02:00 Resp 15 03/03/21 02:00 BP 158/69 03/03/21 02:00 Pulse Ox 96 03/03/21 02:00 Intake & Output 03/02/21 03/03/21 03/03/21 18:59 06:59 18:59 Intake Total 720 760 Output Total 650 700 Balance 70 60 Intake: Intake, IV Titration 760 Amount Sodium Chloride 0.9% 1, 660 000 ml @ 65 mls/hr IV . [id number] [facility] Rx#:[id number] ceFAZolin 2 gm In Sodium 100 Chloride 0.9% 50 ml @ 100 mls/hr IVPB Q8HR [facility] Rx# :[id number] Oral 720 Output: Urine 650 700 Other: Voiding Method Indwelling Catheter Indwelling Catheter # Bowel Movements 2 - Exam Vital signs are stable. Patient is in no acute distress and is alert and oriented 3. Calf is soft and nontender to palpation. Knee immobilizer in place. Patient has full foot and ankle motion without pain or difficulty. Sensation intact. Neurovascular status and circulatory status are intact. - Labs CBC & Chem 7: 03/02/21 08:11 03/03/21 06:33 Labs: Abnormal Lab Results - Last 24 Hours (Table) 03/02/21 03/02/21 03/02/21 Range/Units 08:11 08:11 11:20 RBC 2.71 L (4.40-5.60) X 10*6/uL Hgb 7.5 L (13.0-17.0) g/dL Hct 25.2 L (39.6-50.0) % MCHC 29.8 L (32.0-37.0) g/dL RDW 16.3 H (11.5-14.5) % Lymphocytes # 0.70 L (0.90-5.00) X 10*3/uL Eosinophils # 0 L (0.04-0.35) X 10*3/uL Sodium (137-145) mmol/L POC Glucose (mg/dL) 111 H (75-99) mg/dL Calcium 7.8 L (8.7-10.3) mg/dL Total Bilirubin 0.20 L (0.30-1.20) mg/dL ALT <5 L (10-49) U/L Total Protein 5.1 L (6.2-8.2) g/dL Albumin 2.9 L (3.8-4.9) g/dL Albumin/Globulin Ratio 1.32 L (1.60-3.17) g/dL 03/02/21 03/02/21 03/03/21 Range/Units 16:43 20:31 06:33 RBC (4.40-5.60) X 10*6/uL Hgb (13.0-17.0) g/dL Hct (39.6-50.0) % MCHC (32.0-37.0) g/dL RDW (11.5-14.5) % Lymphocytes # (0.90-5.00) X 10*3/uL Eosinophils # (0.04-0.35) X 10*3/uL Sodium 135 L (137-145) mmol/L POC Glucose (mg/dL) 122 H 126 H (75-99) mg/dL Calcium 7.8 L (8.7-10.3) mg/dL Total Bilirubin (0.30-1.20) mg/dL ALT (10-49) U/L Total Protein 4.8 L (6.2-8.2) g/dL Albumin 2.3 L (3.8-4.9) g/dL Albumin/Globulin Ratio (1.60-3.17) g/dL 03/03/21 Range/Units 07:06 RBC (4.40-5.60) X 10*6/uL Hgb (13.0-17.0) g/dL Hct (39.6-50.0) % MCHC (32.0-37.0) g/dL RDW (11.5-14.5) % Lymphocytes # (0.90-5.00) X 10*3/uL Eosinophils # (0.04-0.35) X 10*3/uL Sodium (137-145) mmol/L POC Glucose (mg/dL) 103 H (75-99) mg/dL Calcium (8.7-10.3) mg/dL Total Bilirubin (0.30-1.20) mg/dL ALT (10-49) U/L Total Protein (6.2-8.2) g/dL Albumin (3.8-4.9) g/dL Albumin/Globulin Ratio (1.60-3.17) g/dL Assessment and Plan (1) Septic joint of left knee joint Current Visit: Yes Status: Acute Code(s): M00.9 - PYOGENIC ARTHRITIS, UNSPECIFIED SNOMED Code(s): 680654778 Plan: #1 Continue with routine postoperative care and pain control. #2 Anticoagulation per internal medicine. #3 Maintain knee immobilizer. #4 Patient has a PICC line placed and IV antibiotics are being managed by infectious disease. #5 Patient is planning on discharge to rehab when cleared medically.
[2021-03-03] MEDS: ENOXAPARIN 40 MG/0.4 ML SYRINGE SQ SCH (08:23)
[2021-03-03] MEDS: TAMSULOSIN 0.4 MG CAP.ER.24H PO SCH (08:23)
[2021-03-03] MEDS: METOPROLOL TARTRATE 50 MG TAB PO SCH (08:23)
[2021-03-03] MEDS: LINAGLIPTIN 5 MG TABLET PO SCH (08:23)
[2021-03-03] MEDS: ASPIRIN 81 MG PO SCH (08:23)
[2021-03-03] MEDS: CLOPIDOGREL 75 MG TAB PO SCH (08:23)
[2021-03-03] MEDS: PANTOPRAZOLE 40 MG TABLET PO SCH (08:23)
[2021-03-03] MEDS: metFORMIN 500 MG TAB PO SCH (08:23)
[2021-03-03] MEDS: SENNOSIDES-DOCUSATE SODIUM 1 EACH TAB PO SCH (08:27)
[2021-03-03] MEDS: LACTOBACILLUS ACIDOPH & BULGAR 1 EACH PACKET PO SCH (08:27)
[2021-03-03] MEDS: LACTULOSE 20 GM/30 ML CUP PO SCH (08:27)
[2021-03-03 14:25] LABS: Acanthocytes 2+; Basophils # (A) 0.01 X 10*3/uL (0.00-0.10); Basophils % (A) 0.2 %; Eosinophils # (A) 0 X 10*3/uL (0.04-0.35); Eosinophils % (A) 0 %; HGB 6.8 g/dL (13.0-17.0); Lymphocytes # (A) 0.83 X 10*3/uL (0.90-5.00); Lymphocytes % (A) 13.6 %; MCHC 30.9 g/dL (32.0-37.0); MCV 90.5 fL (80.0-97.0); Mean Platelet Volume 9.8 fL (9.5-12.2); Monocytes # (A) 0.65 X 10*3/uL (0.20-1.00); Monocytes % (A) 10.6 %; Neutrophils # (A) 4.55 X 10*3/uL (1.80-7.70); Neutrophils % (A) 74.5 %; Pappenheimer Bodies 2+; Platelet Count 260 X 10*3/uL (140-440); RBC 2.43 X 10*6/uL (4.40-5.60); RDW 15.9 % (11.5-14.5); WBC 6.11 X 10*3/uL (4.50-10.00)
== END 2021-03-03 10:56 | DRG 463 ==
LOC: EC 08:25 → 4SSUR 10:27
PROVIDERS: ADMIT Internal Medicine; ATTEND Internal Medicine
PROC: 0SPD0JZ Removal of Synthetic Substitute from Left Knee Joint, Open Approach (ICD-10-PCS; principal; 2021-02-27)
PROC: 02HV33Z Insertion of Infusion Device into Superior Vena Cava, Percutaneous Approach (ICD-10-PCS; 2021-02-27)
PROC: 0SHD08Z Insertion of Spacer into Left Knee Joint, Open Approach (ICD-10-PCS; 2021-02-27)
PROC: B5181ZA Fluoroscopy of Superior Vena Cava using Low Osmolar Contrast, Guidance (ICD-10-PCS; 2021-02-27)
PROC: B548ZZA Ultrasonography of Superior Vena Cava, Guidance (ICD-10-PCS; 2021-02-27)
DX: T84.54XA Infection and inflammatory reaction due to internal left knee prosthesis, initial encounter (principal); L89.153 Pressure ulcer of sacral region, stage 3; M00.062 Staphylococcal arthritis, left knee; Z16.24 Resistance to multiple antibiotics; Z20.822 Contact with and (suspected) exposure to COVID-19; Z96.641 Presence of right artificial hip joint; E11.42 Type 2 diabetes mellitus with diabetic polyneuropathy; E78.5 Hyperlipidemia, unspecified; F17.200 Nicotine dependence, unspecified, uncomplicated; I11.9 Hypertensive heart disease without heart failure; I25.10 Atherosclerotic heart disease of native coronary artery without angina pectoris; I25.2 Old myocardial infarction; I25.82 Chronic total occlusion of coronary artery; I48.91 Unspecified atrial fibrillation; K59.00 Constipation, unspecified; N47.1 Phimosis; M47.812 Spondylosis without myelopathy or radiculopathy, cervical region; L89.159 Pressure ulcer of sacral region, unspecified stage; N47.2 Paraphimosis; K21.9 Gastro-esophageal reflux disease without esophagitis; Z95.5 Presence of coronary angioplasty implant and graft; Z92.3 Personal history of irradiation; Z85.46 Personal history of malignant neoplasm of prostate; Z82.49 Family history of ischemic heart disease and other diseases of the circulatory system; Z79.899 Other long term (current) drug therapy; Z79.82 Long term (current) use of aspirin; Z79.4 Long term (current) use of insulin; Z79.2 Long term (current) use of antibiotics; Z79.02 Long term (current) use of antithrombotics/antiplatelets; Y84.8 Other medical procedures as the cause of abnormal reaction of the patient, or of later complication, without mention of misadventure at the time of the procedure; R33.9 Retention of urine, unspecified; N52.9 Male erectile dysfunction, unspecified; Y83.1 Surgical operation with implant of artificial internal device as the cause of abnormal reaction of the patient, or of later complication, without mention of misadventure at the time of the procedure
CPT/HCPCS: 36415; 36573; 80053; 83605; 85025; 85027; 85652; 86140; 87040; 87070; 87075; 87077; 87186; 87205; 87635; 96374; 96375; 99284

== ENCOUNTER → 2021-05-28 | Outpatient (CLI) | payer MEDICARE, BC ==
[2021-05-28 14:01] LABS: Prothrombin Time 11.1 sec (9.0-12.0)
[2021-05-28 14:09] LABS: Partial Thromboplastin Time 19.7 sec (22.0-30.0)
[2021-05-28 17:14] LABS: Appearance,Urine Clear (Clear); Bacteria,Urine Occasional /hpf; Bilirubin,Urine Negative (Negative); Blood,Urine Negative (Negative); Color,Urine Yellow; Glucose,Urine (UA) Negative (Negative); Ketones,Urine Negative (Negative); Leukocyte Esterase,Urine Moderate (Negative); Mucus,Urine Rare /hpf; Nitrite,Urine Positive (Negative); Protein,Urine Trace (Negative); RBC,Urine 2 /hpf (0-5); Specific Gravity,Urine 1.018 (1.001-1.035); Squamous Epithelial Cell,Urine 1 /hpf (0-4); Urobilinogen,Urine <2.0 mg/dL (<2.0); WBC,Urine 33 /hpf (0-5)
== END | disposition home or self-care (01) ==
LOC: LABPAT 12:03
PROVIDERS: ATTEND Orthopaedic Surgery
DX: Z01.812 Encounter for preprocedural laboratory examination (principal)
CPT/HCPCS: 81001; 85610; 85730; 87086

== ENCOUNTER 2021-09-11 00:18 | Inpatient (IN) | payer MEDICARE, BC ==
[2021-09-11 00:26] LABS: Glucose,Whole Blood 206 mg/dL (75-99)
--- NOTE | 2021-09-11 00:33 | ED ---
Fall HPI - General Chief Complaint: Fall Stated Complaint: Fall, Altered Mental Status Time Seen by Provider: 09/11/21 00:29 Source: patient, EMS Mode of arrival: EMS Limitations: altered mental status - History of Present Illness Initial Comments: Patient is 76-year-old man brought from his home, which is a group home residence, where he is suspected of having fallen from bed. Patient was found in the bedroom on the floor. He was not able to get back up. EMS was called and brought the patient here. He is complaining of pain to the back and right hip. He is not able to recall a fall. MD Complaint: fall -: unknown Fall From: out of bed When Fall Occurred: unsure Fall Witnessed: no Place Fall Occurred: home Loss of Consciousness: unsure Prolonged Down Time?: unclear - Related Data Home Medications Medication Instructions Recorded Confirmed Atorvastatin [Lipitor] 80 mg PO HS 09/01/20 09/11/21 Metoprolol Tartrate [Lopressor] 50 mg PO BID 09/17/20 09/11/21 sitaGLIPtin PHOS/metFORMIN HCL 1 tab PO DAILY 02/23/21 09/11/21 [Janumet Xr 100-1,000 mg Tablet] Dapagliflozin Propanediol [Farxiga] 5 mg PO DAILY 05/29/21 09/11/21 Aspirin EC [Ecotrin Low Dose] 81 mg PO DAILY 09/11/21 09/11/21 HYDROcodone/APAP 10-325MG [[place] 1 tab PO Q8H PRN 09/11/21 09/11/21 10-325] Previous Rx's Medication Instructions Recorded Baclofen [Lioresal] 10 mg PO HS #30 tab 06/05/21 Allergies Allergy/AdvReac Type Severity Reaction Status Date / Time No Known Allergies Allergy Verified 09/11/21 10:05 Review of Systems ROS Statement: Those systems with pertinent positive or pertinent negative responses have been documented in the HPI. ROS Other: All systems not noted in ROS Statement are negative. Limitations: ROS unobtainable due to patients medical condition Past Medical History Past Medical History: Atrial Fibrillation, Coronary Artery Disease (CAD), Cancer, Chest Pain / Angina, Diabetes Mellitus, GERD/Reflux, Hyperlipidemia, Hypertension, Osteoarthritis (OA), Prostate Disorder Additional Past Medical History / Comment(s): 5 Herniated discs in neck causing headaches & numbness in arm and right lower back and pain and right leg pain. Hx 4 fx ribs, current Prostate Cancer- last radiation tx Mar 25 had total of 44 tx. occ constipation, Last Myocardial Infarction Date:: UNKOWN History of Any Multi-Drug Resistant Organisms: VRE Date of last positivie culture/infection: 09/18/20 MDRO Source:: Wound Past Surgical History: Adenoidectomy, Heart Catheterization, Heart Catheterization With Stent, Joint Replacement, Orthopedic Surgery, Tonsillectomy Additional Past Surgical History / Comment(s): PROSTATE BX., LT. KNEE ARTHROSCOPY X 2, CERVICAL FUSIONS, COLONOSCOPY, ÁNGEL. CATARTACTS.Pain Procedures , rt radio frequency procedures. , total 3 heart stents, hemorrhoidectomy,heart cath August 2017-lt knee replacement. Stent replacement Past Anesthesia/Blood Transfusion Reactions: No Reported Reaction Additional Past Anesthesia/Blood Transfusion Reaction / Comment(s): doesn't like enclosed tight spaces Date of Last Stent Placement:: 04/24/17 Past Psychological History: No Psychological Hx Reported Smoking Status: Former smoker Past Alcohol Use History: None Reported Past Drug Use History: None Reported - Past Family History Father Additional Family Medical History / Comment(s): Father at age 49 from coronary artery disease. Brother(s) Additional Family Medical History / Comment(s): Patient has one brother with history of smoking and no other major medical problems. Patient does not have any sisters. Daughter(s) Additional Family Medical History / Comment(s): Patient has one daughter with history of muscular dystrophy and of pneumonia. Son(s) Family Medical History: No Reported History Additional Family Medical History / Comment(s): Patient has one son with no major medical problems. Mother Family Medical History: Cancer Additional Family Medical History / Comment(s): Mother at age 81 from uterine cancer with metastatic disease. General Exam General appearance: alert Head exam: Present: atraumatic, normocephalic, normal inspection Eye exam: Present: normal appearance, PERRL, EOMI. Absent: scleral icterus, conjunctival injection Neck exam: Present: normal inspection, tenderness Respiratory exam: Present: normal lung sounds bilaterally. Absent: respiratory distress, wheezes, rales, rhonchi, stridor Cardiovascular Exam: Present: regular rate, normal rhythm, normal heart sounds. Absent: systolic murmur, diastolic murmur, rubs, gallop GI/Abdominal exam: Present: soft. Absent: distended, tenderness, guarding, rebound, rigid, mass Extremities exam: Present: normal inspection, normal capillary refill. Absent: pedal edema, calf tenderness Back exam: Present: normal inspection. Absent: CVA tenderness (R), CVA tende rness (L) Neurological exam: Present: alert Skin exam: Present: warm, dry, normal color, other (There is a small stage I to 2 sacral decubitus ulcer.). Absent: rash Course Vital Signs 09/11/21 09/11/21 09/11/21 00:19 00:28 00:40 Temperature 98.9 F Pulse Rate 99 101 H 93 Respiratory 18 18 18 Rate Blood Pressure 145/109 131/88 191/96 O2 Sat by Pulse 93 L 96 Oximetry 09/11/21 09/11/21 09/11/21 01:57 02:00 03:00 Temperature Pulse Rate 107 H 111 H 120 H Respiratory 16 18 14 Rate Blood Pressure 175/88 O2 Sat by Pulse 94 L 95 94 L Oximetry 09/11/21 09/11/21 09/11/21 05:00 06:00 07:02 Temperature Pulse Rate 125 H 125 H 123 H Respiratory 18 18 20 Rate Blood Pressure 183/86 166/102 154/90 O2 Sat by Pulse 92 L 90 L Oximetry 09/11/21 09/11/21 09:17 16:42 Temperature 102.8 F H 100.8 F H Pulse Rate 117 H 108 H Respiratory 20 20 Rate Blood Pressure 154/88 145/75 O2 Sat by Pulse 93 L 94 L Oximetry Procedures - Sepsis Sepsis Focused Exam #1 Sepsis Focused Exam Date: 09/11/21 Sepsis Focused Exam Time: 06:15 Sepsis Focused Exam Complete: Yes Vital Signs & RN Notes Reviewed: Yes Capillary Refill: < 2 Seconds: Fingers Peripheral Pulses: Strong: Radial (L) Skin Color: Flushed Respiratory Exam: rhonchi Cardiovascular Exam: tachycardia, irregular rhythm Medical Decision Making - Medical Decision Making Patient 76-year-old man brought by ambulance after being found on the floor at bedside suspected having fallen. On arrival patient afebrile but his clinical picture concerning for possible sepsis. There is no obvious source at time of admission. Patient receiving IV fluids, antibiotics, will be admitted and have medical consultations. - Lab Data Result diagrams: 09/13/21 04:15 09/13/21 04:15 Lab Results 09/11/21 09/11/21 09/11/21 Range/Units 00:24 00:46 00:46 WBC 5.8 (3.8-10.6) k/uL RBC 4.71 (4.30-5.90) m/uL Hgb 14.1 (13.0-17.5) gm/dL Hct 43.0 (39.0-53.0) % MCV 91.4 (80.0-100.0) fL MCH 29.9 (25.0-35.0) pg MCHC 32.8 (31.0-37.0) g/dL RDW 14.6 (11.5-15.5) % Plt Count 138 L (150-450) k/uL MPV 8.6 Neutrophils % 84 % Lymphocytes % 8 % Monocytes % 5 % Eosinophils % 1 % Basophils % 0 % Neutrophils # 4.9 (1.3-7.7) k/uL Lymphocytes # 0.5 L (1.0-4.8) k/uL Monocytes # 0.3 (0-1.0) k/uL Eosinophils # 0.0 (0-0.7) k/uL Basophils # 0.0 (0-0.2) k/uL PT 11.6 (9.0-12.0) sec INR 1.1 (<1.2) APTT 18.6 L (22.0-30.0) sec Sodium (137-145) mmol/L Potassium (3.5-5.1) mmol/L Chloride (98-107) mmol/L Carbon Dioxide (22-30) mmol/L Anion Gap mmol/L BUN (9-20) mg/dL Creatinine (0.66-1.25) mg/dL Est GFR (CKD-EPI)AfAm (>60 ml/min/1.73 sqM) Est GFR (CKD-EPI)NonAf (>60 ml/min/1.73 sqM) Glucose (74-99) mg/dL POC Glucose (mg/dL) 206 H (75-99) mg/dL POC Glu Oil Scout ID Fabio, Alisa Lactic Ac Sepsis Rflx Plasma Lactic Acid Rob (0.7-2.0) mmol/L Calcium (8.4-10.2) mg/dL Total Bilirubin (0.2-1.3) mg/dL AST (17-59) U/L ALT (4-49) U/L Alkaline Phosphatase (38-126) U/L Ammonia (<30) umol/L Troponin I (0.000-0.034) ng/mL C-Reactive Protein (<1.0) mg/dL Total Protein (6.3-8.2) g/dL Albumin (3.5-5.0) g/dL Urine Color Urine Appearance (Clear) Urine pH (5.0-8.0) Ur Specific [place] (1.001-1.035) Urine Protein (Negative) Urine Glucose (UA) (Negative) Urine Ketones (Negative) Urine Blood (Negative) Urine Nitrite (Negative) Urine Bilirubin (Negative) Urine Urobilinogen (<2.0) mg/dL Ur Leukocyte Esterase (Negative) Urine RBC (0-5) /hpf Urine WBC (0-5) /hpf Urine Bacteria (None) /hpf Urine Mucus (None) /hpf Serum Alcohol mg/dL Coronavirus (PCR) (Not Detectd) Influenza Type A RNA (Not Detectd) Influenza Type B (PCR) (Not Detectd) 09/11/21 09/11/21 09/11/21 Range/Units 00:46 00:46 00:46 WBC (3.8-10.6) k/uL RBC (4.30-5.90) m/uL Hgb (13.0-17.5) gm/dL Hct (39.0-53.0) % MCV (80.0-100.0) fL MCH (25.0-35.0) pg MCHC (31.0-37.0) g/dL RDW (11.5-15.5) % Plt Count (150-450) k/uL MPV Neutrophils % % Lymphocytes % % Monocytes % % Eosinophils % % Basophils % % Neutrophils # (1.3-7.7) k/uL Lymphocytes # (1.0-4.8) k/uL Monocytes # (0-1.0) k/uL Eosinophils # (0-0.7) k/uL Basophils # (0-0.2) k/uL PT (9.0-12.0) sec INR (<1.2) APTT (22.0-30.0) sec Sodium 133 L (137-145) mmol/L Potassium 3.8 (3.5-5.1) mmol/L Chloride 98 (98-107) mmol/L Carbon Dioxide 19 L (22-30) mmol/L Anion Gap 16 mmol/L BUN 16 (9-20) mg/dL Creatinine 0.88 (0.66-1.25) mg/dL Est GFR (CKD-EPI)AfAm >90 (>60 ml/min/1.73 sqM) Est GFR (CKD-EPI)NonAf 83 (>60 ml/min/1.73 sqM) Glucose 207 H (74-99) mg/dL POC Glucose (mg/dL) (75-99) mg/dL POC Glu Oil Scout ID Lactic Ac Sepsis Rflx Plasma Lactic Acid Rob 7.3 H* (0.7-2.0) mmol/L Calcium 9.2 (8.4-10.2) mg/dL Total Bilirubin 1.4 H (0.2-1.3) mg/dL AST 50 (17-59) U/L ALT 56 H (4-49) U/L Alkaline Phosphatase 50 (38-126) U/L Ammonia <9 (<30) umol/L Troponin I 0.013 (0.000-0.034) ng/mL C-Reactive Protein <0.5 (<1.0) mg/dL Total Protein 7.3 (6.3-8.2) g/dL Albumin 4.8 (3.5-5.0) g/dL Urine Color Urine Appearance (Clear) Urine pH (5.0-8.0) Ur Specific [place] (1.001-1.035) Urine Protein (Negative) Urine Glucose (UA) (Negative) Urine Ketones (Negative) Urine Blood (Negative) Urine Nitrite (Negative) Urine Bilirubin (Negative) Urine Urobilinogen (<2.0) mg/dL Ur Leukocyte Esterase (Negative) Urine RBC (0-5) /hpf Urine WBC (0-5) /hpf Urine Bacteria (None) /hpf Urine Mucus (None) /hpf Serum Alcohol <10 mg/dL Coronavirus (PCR) (Not Detectd) Influenza Type A RNA (Not Detectd) Influenza Type B (PCR) (Not Detectd) 09/11/21 09/11/21 09/11/21 Range/Units 00:50 00:50 01:50 WBC (3.8-10.6) k/uL RBC (4.30-5.90) m/uL Hgb (13.0-17.5) gm/dL Hct (39.0-53.0) % MCV (80.0-100.0) fL MCH (25.0-35.0) pg MCHC (31.0-37.0) g/dL RDW (11.5-15.5) % Plt Count (150-450) k/uL MPV Neutrophils % % Lymphocytes % % Monocytes % % Eosinophils % % Basophils % % Neutrophils # (1.3-7.7) k/uL Lymphocytes # (1.0-4.8) k/uL Monocytes # (0-1.0) k/uL Eosinophils # (0-0.7) k/uL Basophils # (0-0.2) k/uL PT (9.0-12.0) sec INR (<1.2) APTT (22.0-30.0) sec Sodium (137-145) mmol/L Potassium (3.5-5.1) mmol/L Chloride (98-107) mmol/L Carbon Dioxide (22-30) mmol/L Anion Gap mmol/L BUN (9-20) mg/dL Creatinine (0.66-1.25) mg/dL Est GFR (CKD-EPI)AfAm (>60 ml/min/1.73 sqM) Est GFR (CKD-EPI)NonAf (>60 ml/min/1.73 sqM) Glucose (74-99) mg/dL POC Glucose (mg/dL) (75-99) mg/dL POC Glu Oil Scout ID Lactic Ac Sepsis Rflx Plasma Lactic Acid Rob (0.7-2.0) mmol/L Calcium (8.4-10.2) mg/dL Total Bilirubin (0.2-1.3) mg/dL AST (17-59) U/L ALT (4-49) U/L Alkaline Phosphatase (38-126) U/L Ammonia (<30) umol/L Troponin I (0.000-0.034) ng/mL C-Reactive Protein (<1.0) mg/dL Total Protein (6.3-8.2) g/dL Albumin (3.5-5.0) g/dL Urine Color Light Yellow Urine Appearance Clear (Clear) Urine pH 6.0 (5.0-8.0) Ur Specific [place] 1.017 (1.001-1.035) Urine Protein 3+ H (Negative) Urine Glucose (UA) 4+ H (Negative) Urine Ketones 1+ H (Negative) Urine Blood Moderate H (Negative) Urine Nitrite Negative (Negative) Urine Bilirubin Negative (Negative) Urine Urobilinogen <2.0 (<2.0) mg/dL Ur Leukocyte Esterase Negative (Negative) Urine RBC 6 H (0-5) /hpf Urine WBC 2 (0-5) /hpf Urine Bacteria Many H (None) /hpf Urine Mucus Rare H (None) /hpf Serum Alcohol mg/dL Coronavirus (PCR) Not Detected (Not Detectd) Influenza Type A RNA Not Detected (Not Detectd) Influenza Type B (PCR) Not Detected (Not Detectd) 09/11/21 Range/Units 01:56 WBC (3.8-10.6) k/uL RBC (4.30-5.90) m/uL Hgb (13.0-17.5) gm/dL Hct (39.0-53.0) % MCV (80.0-100.0) fL MCH (25.0-35.0) pg MCHC (31.0-37.0) g/dL RDW (11.5-15.5) % Plt Count (150-450) k/uL MPV Neutrophils % % Lymphocytes % % Monocytes % % Eosinophils % % Basophils % % Neutrophils # (1.3-7.7) k/uL Lymphocytes # (1.0-4.8) k/uL Monocytes # (0-1.0) k/uL Eosinophils # (0-0.7) k/uL Basophils # (0-0.2) k/uL PT (9.0-12.0) sec INR (<1.2) APTT (22.0-30.0) sec Sodium (137-145) mmol/L Potassium (3.5-5.1) mmol/L Chloride (98-107) mmol/L Carbon Dioxide (22-30) mmol/L Anion Gap mmol/L BUN (9-20) mg/dL Creatinine (0.66-1.25) mg/dL Est GFR (CKD-EPI)AfAm (>60 ml/min/1.73 sqM) Est GFR (CKD-EPI)NonAf (>60 ml/min/1.73 sqM) Glucose (74-99) mg/dL POC Glucose (mg/dL) (75-99) mg/dL POC Glu Oil Scout ID Lactic Ac Sepsis Rflx Y Plasma Lactic Acid Rob (0.7-2.0) mmol/L Calcium (8.4-10.2) mg/dL Total Bilirubin (0.2-1.3) mg/dL AST (17-59) U/L ALT (4-49) U/L Alkaline Phosphatase (38-126) U/L Ammonia (<30) umol/L Troponin I (0.000-0.034) ng/mL C-Reactive Protein (<1.0) mg/dL Total Protein (6.3-8.2) g/dL Albumin (3.5-5.0) g/dL Urine Color Urine Appearance (Clear) Urine pH (5.0-8.0) Ur Specific [place] (1.001-1.035) Urine Protein (Negative) Urine Glucose (UA) (Negative) Urine Ketones (Negative) Urine Blood (Negative) Urine Nitrite (Negative) Urine Bilirubin (Negative) Urine Urobilinogen (<2.0) mg/dL Ur Leukocyte Esterase (Negative) Urine RBC (0-5) /hpf Urine WBC (0-5) /hpf Urine Bacteria (None) /hpf Urine Mucus (None) /hpf Serum Alcohol mg/dL Coronavirus (PCR) (Not Detectd) Influenza Type A RNA (Not Detectd) Influenza Type B (PCR) (Not Detectd) Critical Care Time Critical Care Time: Yes (35 minutes) Disposition Clinical Impression: Atrial fibrillation with RVR, Decubitus ulcer, Sepsis, Lactic acidosis Disposition: ADMITTED IP TO THIS HOSP Condition: Serious Is patient prescribed a controlled substance at d/c from ED?: No
--- NOTE | 2021-09-11 00:56 | CT ---
EXAMINATION TYPE: CT brain wo con DATE OF EXAM: 09/11/2021 COMPARISON: 07/05/2016 HISTORY: Fall AMS CT DLP: 2879.3 mGycm Automated exposure control for dose reduction was used. Images of the brain obtained without contrast. There is cerebral cortical atrophy. There is no mass effect or midline shift. No sign of intracranial hemorrhage. There is normal aeration of the mastoid sinuses. The calvarium is intact. There is some mild hypodensity in the periventricular white matter. IMPRESSION: Mild atrophy and chronic small vessel ischemia. No change compared to the old exam. No acute intracra nial abnormality.
[2021-09-11 01:09] LABS: Basophils % (A) 0 %; Eosinophils % (A) 1 %; HGB 14.1 gm/dL (13.0-17.5); Lymphocytes # (A) 0.5 k/uL (1.0-4.8); Lymphocytes % (A) 8 %; MCH 29.9 pg (25.0-35.0); MCHC 32.8 g/dL (31.0-37.0); MCV 91.4 fL (80.0-100.0); Mean Platelet Volume 8.6; Monocytes # (A) 0.3 k/uL (0-1.0); Monocytes % (A) 5 %; Neutrophils # (A) 4.9 k/uL (1.3-7.7); Neutrophils % (A) 84 %; Platelet Count 138 k/uL (150-450); RBC 4.71 m/uL (4.30-5.90); RDW 14.6 % (11.5-15.5); WBC 5.8 k/uL (3.8-10.6)
--- NOTE | 2021-09-11 01:12 | XR ---
EXAMINATION TYPE: XR pelvis AP view DATE OF EXAM: 09/11/2021 COMPARISON: 08/09/2020 HISTORY: Pain. Fall TECHNIQUE: Single view FINDINGS: The pelvic ring is intact. There is right hip prosthesis. Sacroiliac joints are intact. No fracture seen. There is slight lumbar levoscoliosis. IMPRESSION: No acute abnormality of the pelvis. No fracture. No adverse change compared to old exam.
--- NOTE | 2021-09-11 01:14 | XR ---
EXAMINATION TYPE: XR chest 1V DATE OF EXAM: 09/11/2021 COMPARISON: 08/08/2020 HISTORY: Fall. Pain TECHNIQUE: Single view FINDINGS: There is no heart failure nor confluent pneumonic infiltrate. Costophrenic angles are clear . There are small linear density left midlung. There are chest leads. No pleural effusion or pneumoth orax. IMPRESSION: Minimal subsegmental atelectasis. Overall no adverse change compared to old exam. Normal heart.
[2021-09-11 01:24] LABS: INR 1.1 (<1.2); Prothrombin Time 11.6 sec (9.0-12.0)
--- NOTE | 2021-09-11 01:24 | XR ---
EXAMINATION TYPE: XR cervical spine limited DATE OF EXAM: 09/11/2021 COMPARISON: 08/10/2013 HISTORY: Neck pain TECHNIQUE: 3 views FINDINGS: Exam limited by the shoulders. Vertebral abnormal alignment. C7 not well seen. Vertebra liz w no sign of a compression fracture. There are no cervical ribs. There is old anterior fusion surgery at C5-6. IMPRESSION: Previous surgery. No fracture seen. No adverse change compared to old exam. Limited exam.
[2021-09-11] MEDS ORDERED: LORazepam 2 MG/ML INJ IV STA ×2 (01:34→02:25)
[2021-09-11 01:36] LABS: Partial Thromboplastin Time 18.6 sec (22.0-30.0)
[2021-09-11 01:41] LABS: AST 50 U/L (17-59); African American GFR (CKD) >90 (>60 ml/min/1.73 sqM); Albumin 4.8 g/dL (3.5-5.0); Alcohol <10 mg/dL; Alkaline Phosphatase 50 U/L (38-126); Anion Gap 16 mmol/L; Blood Urea Nitrogen 16 mg/dL (9-20); Calcium 9.2 mg/dL (8.4-10.2); Carbon Dioxide 19 mmol/L (22-30); Chloride 98 mmol/L (98-107); Glucose 207 mg/dL (74-99); Non-African American GFR(CKD) 83 (>60 ml/min/1.73 sqM); Potassium 3.8 mmol/L (3.5-5.1); Sodium 133 mmol/L (137-145); Total Bilirubin 1.4 mg/dL (0.2-1.3); Total Protein 7.3 g/dL (6.3-8.2)
[2021-09-11 01:54] LABS: ALT 56 U/L (4-49); C Reactive Protein <0.5 mg/dL (<1.0)
[2021-09-11 01:56] LABS: Lactic Acid, Venous 7.3 mmol/L (0.7-2.0)
[2021-09-11] MEDS ORDERED: SODIUM CHLORIDE 0.9% 2,000 ML IV ONE (01:57)
[2021-09-11] MEDS ORDERED: SODIUM CHLORIDE 0.9% 1,000 ML IV STA (01:57)
[2021-09-11 02:03] LABS: Appearance,Urine Clear (Clear); Bacteria,Urine Many /hpf; Bilirubin,Urine Negative (Negative); Blood,Urine Moderate (Negative); Color,Urine Light Yellow; Glucose,Urine (UA) 4+ (Negative); Ketones,Urine 1+ (Negative); Leukocyte Esterase,Urine Negative (Negative); Mucus,Urine Rare /hpf; Nitrite,Urine Negative (Negative); Protein,Urine 3+ (Negative); RBC,Urine 6 /hpf (0-5); Specific Gravity,Urine 1.017 (1.001-1.035); Urobilinogen,Urine <2.0 mg/dL (<2.0); WBC,Urine 2 /hpf (0-5)
--- NOTE | 2021-09-11 03:57 | CT ---
EXAMINATION TYPE: CT abdomen pelvis w con DATE OF EXAM: 09/11/2021 COMPARISON: 11/27/2016 HISTORY: abd pain CT DLP: 2100.7 mGycm Automated exposure control for dose reduction was used. CONTRAST: Performed with IV Contrast, patient injected with 100 mL of Isovue 300. Images obtained from the diaphragm to the floor the pelvis with IV contrast. There is some mild subsegmental atelectasis at the lung bases. Heart size is normal. No pericardial e ffusion. No pleural effusion. Liver and spleen are intact. Stomach is intact. There is no pancreatic mass. Gallbladder is contracted with minimal calcification. There is no adrenal mass. Kidneys have normal size. There are bilateral renal cortical cysts up to 2. 5 cm. No hydronephrosis. There is no evidence of renal obstruction. Ureters are not dilated. There is no retroperitoneal adenopathy. There is right hip prosthesis. Exam limited by motion. There is Shelley catheter in the urinary bladder. Bladder is almost empty. No inguinal hernia. No free fluid in the p nahum. No pelvic mass. There is no mesenteric edema. No ascites or free air. No sign of a bowel obstruction. Appendix is lat eral and appears normal. Lumbar vertebra show L3 level spondylotic changes. No compression fracture. There is multilevel lumba r hypertrophic facet arthropathy. The bony pelvis is intact. Hip joints are intact. No evidence of fo omkar bone destruction. IMPRESSION: No acute abnormality of the abdomen and pelvis. Minimal subsegmental atelectasis at the lung bases is a change compared to old exam. Renal cortical cysts are increased compared to the old exam. Contract ed gallbladder. No dilated ducts.
[2021-09-11] MEDS ORDERED: DILTIAZEM DRIP BOLUS FROM BAG 1 MG SOLN IV ONE (06:27)
[2021-09-11] MEDS ORDERED: NITROGLYCERIN SL TABS 0.4 MG TAB SUBLINGUAL PRN (06:46)
[2021-09-11] MEDS ORDERED: CEFEPIME 2 GM in SODIUM CHLORIDE 0.9% 100 ML IVPB STA (06:57)
[2021-09-11] MEDS ORDERED: DILTIAZEM 125 MG in SODIUM CHLORIDE 0.9% 100 ML IV SCH (07:00)
[2021-09-11] MEDS ORDERED: ENOXAPARIN 100 MG/ML SYRINGE SQ SCH (08:00)
[2021-09-11] MEDS ORDERED: HEPARIN SODIUM 1,000 UN/ML (10ML VL) IV ONE (09:38)
[2021-09-11] MEDS ORDERED: HEPARIN SODIUM 1,000 UN/ML (10ML VL) IV PRN (09:38)
[2021-09-11] MEDS ORDERED: VANCOMYCIN IV PER PHARMACY 1 EACH MISC MISCELLANE PRN (09:40)
[2021-09-11] MEDS: VANCOMYCIN 1,500 MG in SODIUM CHLORIDE 0.9% 250 ML IVPB SCH ×2 (13:06→22:46)
--- NOTE | 2021-09-11 14:42 | P.CNNES ---
History of Present Illness Consult date: 09/11/21 Requesting physician: Jermain Hall Reason for Consult: altered mental status History of Present Illness: This is a 76-year-old gentleman with history of septic arthritis of the left knee, ischemic cardiomyopathy, she'll gastric outlet obstruction status post the EGD, diabetes is at the emergency department on 09/11/2021 since the patient's has fallen from bed. Some of the history is obtained from medical records. Per the ED note at the patient resides in a [place] [facility] residence and it was suspected that she had fallen from bed and was found in the bedroom on the floor as a result he missed was contacted. Neurologist consulted for altered mental status. Patient is on aspirin 81 mg, Lipitor 80 mg at home, baclofen 10 mg daily at bedtime. Of note patient is known to our neurology team and patient was seen by our team on 08/13/2020 for altered mental status and the likely it was delirium. Please refer to our notes for further details Some of the workup in our facility consisted off call On presentation patient had a temperature of 98.9, blood pressure of 145/109, heart rate of 99, respiratory of 18, also oxygen 93 L at room air. Most recent temperature is 102.8 Fahrenheit and the blood pressure as been in the range of 170s to 190s over 80s to 90s. White blood cell is 5.8 thousand. Initial serum glucose is 207, ALT of 56, plasma S Evonne 7.3, troponin is trending up initially is 0.013 and currently is 2.370. The most current up as well as facet pain is trending down is 3.9. Cox virus patient was not detected. Influenza A/B PCR was not detected Serum alcohol was less than 10. CT of the head is reported as mild atrophy and chronic small vessel ischemia. No change compared to old exam. No acute intracranial abnormality. I personally reviewed the CT of the head there is no acute or subacute ischemia there is no focal hemorrhage but the CT was obscured because of motion artifact. Review of Systems Review of system is limited but the prior positive and negative as per HPI. Past Medical History Past Medical History: Atrial Fibrillation, Coronary Artery Disease (CAD), Cancer, Chest Pain / Angina, Diabetes Mellitus, GERD/Reflux, Hyperlipidemia, Hypertension, Osteoarthritis (OA), Prostate Disorder Additional Past Medical History / Comment(s): 5 Herniated discs in neck causing headaches & numbness in arm and right lower back and pain and right leg pain. Hx 4 fx ribs, current Prostate Cancer- last radiation tx Mar 25-2016 had total of 44 tx. occ constipation, Last Myocardial Infarction Date:: UNKOWN History of Any Multi-Drug Resistant Organisms: VRE Date of last positivie culture/infection: 09/18/20 MDRO Source:: Wound Past Surgical History: Adenoidectomy, Heart Catheterization, Heart Catheterization With Stent, Joint Replacement, Orthopedic Surgery, Tonsillectomy Additional Past Surgical History / Comment(s): PROSTATE BX., LT. KNEE ARTHROSCOPY X 2, CERVICAL FUSIONS, COLONOSCOPY, ÁNGEL. CATARTACTS.Pain Procedures , rt radio frequency procedures. , total 3 heart stents, hemorrhoidectomy,heart cath August 2017-lt knee replacement. Stent replacement \\2020 Past Anesthesia/Blood Transfusion Reactions: No Reported Reaction Additional Past Anesthesia/Blood Transfusion Reaction / Comment(s): doesn't like enclosed tight spaces Date of Last Stent Placement:: 04/24/17 Past Psychological History: No Psychological Hx Reported Smoking Status: Former smoker Past Alcohol Use History: None Reported Past Drug Use History: None Reported - Past Family History Father Additional Family Medical History / Comment(s): Father at age 49 from coronary artery disease. Brother(s) Additional Family Medical History / Comment(s): Patient has one brother with history of smoking and no other major medical problems. Patient does not have any sisters. Daughter(s) Additional Family Medical History / Comment(s): Patient has one daughter with history of muscular dystrophy and of pneumonia. Son(s) Family Medical History: No Reported History Additional Family Medical History / Comment(s): Patient has one son with no major medical problems. Mother Family Medical History: Cancer Additional Family Medical History / Comment(s): Mother at age 81 from uterine cancer with metastatic disease. Medications and Allergies Home Medications Medication Instructions Recorded Confirmed Type Atorvastatin [Lipitor] 80 mg PO HS 09/01/20 09/11/21 History Metoprolol Tartrate [Lopressor] 50 mg PO BID 09/17/20 09/11/21 History sitaGLIPtin PHOS/metFORMIN HCL 1 tab PO DAILY 02/23/21 09/11/21 History [Janumet Xr 100-1,000 mg Tablet] Dapagliflozin Propanediol [Farxiga] 5 mg PO DAILY 05/29/21 09/11/21 History Baclofen [Lioresal] 10 mg PO HS #30 tab 06/05/21 09/11/21 Rx Aspirin EC [Ecotrin Low Dose] 81 mg PO DAILY 09/11/21 09/11/21 History HYDROcodone/APAP 10-325MG [[place] 1 tab PO Q8H PRN 09/11/21 09/11/21 History 10-325] Allergies Allergy/AdvReac Type Severity Reaction Status Date / Time No Known Allergies Allergy Verified 09/11/21 10:05 Physical Examination - Vital Signs Vital Signs: Vital Signs Temp Pulse Resp BP Pulse Ox 09/11/21 09:17 102.8 F H 117 H 20 154/88 93 L 09/11/21 07:02 123 H 20 154/90 90 L 09/11/21 06:00 125 H 18 166/102 92 L 09/11/21 05:00 125 H 18 183/86 09/11/21 03:00 120 H 14 94 L 09/11/21 02:00 111 H 18 175/88 95 09/11/21 01:57 107 H 16 94 L 09/11/21 00:40 93 18 191/96 96 09/11/21 00:28 101 H 18 131/88 09/11/21 00:19 98.9 F 99 18 145/109 93 L Intake and Output 09/10/21 09/11/21 09/11/21 22:59 06:59 14:59 Output Total 1800 Balance -1800 Output: Urine 1800 Other: Weight 99.79 kg GENERAL: The patient is lying in bed and appears in mild acute acute distress. HENT: Supple neck. CHEST: The heart rate is regular rate rhythm. No murmurs to auscultation. LUNG: Clear to auscultation bilaterally no wheezing noted throughout. Not labored breathing. ABDOMEN/GI: Bowel sounds present in all 4 quadrants. No tenderness to palpation throughout. NEUROLOGICAL: Limited because of his condition. Higher mental function: The stupor. He is moaning but said one word "ok". Otherwise not verbalizing or following commands. Cranial nerves: For most part he has eyes closed. He briefly open eyes once. The pupils are round, equal and reactive to light. Has left nasolabial flattening. Otherwise rest could not be assess. Motor: The strength is could not assess. Slightly increased tone throughout. Has erythema, warmth over the left knee and was in pain upon moving it. Cerebellum: Unable to assess. Sensation: Unable to asses.s Reflexes (right/left): 1+ throughout. Plantars are mute bilaterally. Results - Laboratory Findings CBC and BMP: 09/11/21 00:46 09/11/21 00:46 Abnormal Lab Findings: Abnormal Labs 09/11/21 09/11/21 09/11/21 00:24 00:46 00:46 Plt Count 138 L Lymphocytes # 0.5 L APTT 18.6 L Sodium Carbon Dioxide Glucose POC Glucose (mg/dL) 206 H Plasma Lactic Acid Rob Total Bilirubin ALT Troponin I Urine Protein Urine Glucose (UA) Urine Ketones Urine Blood Urine RBC Urine Bacteria Urine Mucus 09/11/21 09/11/21 09/11/21 00:46 00:46 01:50 Plt Count Lymphocytes # APTT Sodium 133 L Carbon Dioxide 19 L Glucose 207 H POC Glucose (mg/dL) Plasma Lactic Acid Rob 7.3 H* Total Bilirubin 1.4 H ALT 56 H Troponin I Urine Protein 3+ H Urine Glucose (UA) 4+ H Urine Ketones 1+ H Urine Blood Moderate H Urine RBC 6 H Urine Bacteria Many H Urine Mucus Rare H 09/11/21 09/11/21 07:53 07:53 Plt Count Lymphocytes # APTT Sodium Carbon Dioxide Glucose POC Glucose (mg/dL) Plasma Lactic Acid Rob 3.9 H* Total Bilirubin ALT Troponin I 2.370 H* Urine Protein Urine Glucose (UA) Urine Ketones Urine Blood Urine RBC Urine Bacteria Urine Mucus Assessment and Plan Assessment: Encephalopathy of unknown etiology (patient has fever currently but no leukocytosis) suspected sepsis rule out septic arthritis (on examination he has pain on moving of left knee and was warm to touch). Neck is supple, no leukocytosis (unlikely meningoencepehalitis). Elevated troponin. History of septic arthritis of the left knee History of ischemic cardiomyopathy, gastric outlet obstruction status post the EGD diabetes Plan: Ordered ammonia level Infection disease team is on board. They recommended lumbar puncture. This is does not seems like seizure and will hold EEG. If continues to be altered tomorrow will consider EEG. Continue neuro checks I.D. team is consulted. Blood culture is ordered and is pending. Cardiology team is consulted for atrial fibrillation Will defer rest of medical management to primary team. The plan is discussed with nurse and I.D. team. Thank you for the consultation. Trevor Louis M.D. Time with Patient: Greater than 30
--- NOTE | 2021-09-11 14:47 | P.PCN ---
Date of Procedure: 09/11/21 Procedure(s) Performed: Preoperative diagnosis: Encephalopathy Post operative diagnoses: Encephalopathy Procedure= lumbar puncture Anesthesia local infiltration with lidocaine 1% 2 mL. Condition: stable Complication: none. Description of the procedure procedure risk and benefits discussed with the patient and family, consent signed. Patient and the procedure area placed in sitting position , back prepped with chlorhexidine 3 times been local infiltration of the skin and subcutaneous tissue with lidocaine 1% 2 mL for skin and subcu interstitial frustrations at L4 5 levels then 22-gauge Quincke-type needle advanced slowly at L4- 5 interlaminar space there was positive cerebrospinal fluid which was clear, no heme, no paresthesia ,total of 9 ML of clear cerebrospinal fluid collected in 4 different tubes 2-2-1/2 mL in each, then the needle removed and a Band-Aid applied and patient tolerated the procedure well without any complications.
--- NOTE | 2021-09-11 14:56 | P.HPIM ---
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 Patient apparently had a fall out of bed and was found on the bedroom floor and patient was transferred to [facility] emergency center for evaluation. Prior to the fall, patient has not been feeling well for at least a few days and continued to worsen. He was reported to have a cough with weakness. Patient was taking [id number] cough medication without improvement. Initially temperature was 98.9, heart rate 99, blood pressure 145/109, pulse ox 93% on room air. Temperature max as morning is 102.8 with heart rate of 127. WBC 5.8, hemoglobin 14.1, platelet count 138. INR 1.1. Sodium 133, potassium 3.8, chloride 98, CO2 19, BUN 16 creatinine 0.88. Blood sugar 207. Lactic acid 7.3 and repeat 3.9. Calcium 9.2. Total bilirubin 1.4, AST 50, ALT 56, alkaline phosphatase 50. Troponin 0.013 followed by 2.370. Urinalysis was clear, blood moderate, RBC 6. Bacteria many. Serum alcohol level less than 10. Chronic virus PCR not detected. Influenza A not detected. Influenza B not detected. CAT scan of the brain revealed mild atrophy and chronic small vessel ischemia. No change compared to old exam. No acute intracranial abnormality. Chest x-ray, pelvis x-ray, cervical spine x-ray and abdominal and pelvic CAT scan have been completed but unable to open reports. Patient is seen today in the emergency center waiting for a bed on the cardiac stepdown unit. He has been started on heparin drip, cefepime and vancomycin and consults are in place with cardiology, infectious disease and neurology. Patient is status post diagnostic lumbar puncture completed by anesthesiology REVIEW OF SYSTEMS: Constitutional: Documented fever, or chills, no night sweats, reports fatigue , positive for weight loss. HEENT: No headache. No blurred vision or double vision, no loss of vision. No loss of Hearing, no ringing in the ears, no dizziness. No nasal drainage or congestion. No epistaxis. No sore throat. Respiratory: No shortness of breath, reported cough, no sputum production. No wheezing. Reports dyspnea with activity. Cardiovascular: No chest pain, no lower extremity edema. No palpitations. No paroxysmal nocturnal dyspnea. No orthopnea. No lightheadedness or dizziness. No syncopal episodes. Gastrointestinal: Reports no abdominal pain. No nausea, vomiting. No diarrhea. No constipation. No bloody or tarry stools reports loss of appetite. Genitourinary: No dysuria, increased frequency, urgency. No urinary retention. Musculoskeletal: Positive for myalgias. positive for muscle weakness, Positive for gait dysfunction, no frequent falls, positive for low back pain . Integumentary: Sacral decubitus ulcer with pain, no lesions. No rash or pruritus. brpositive for bruising. No change in hair or nails. Neurologic: No aphasia. No facial droop. No change in mentation. No head injury. No headache. No paralysis. No paresthesia. Psychiatric: No depression. No anxiety. No mood swings. Endocrine: No abnormal blood sugars. No weight change. PAST MEDICAL HISTORY: 1. CAD post-PCI of the RCA. 2. Hypertension and hypertensive cardiovascular disease. 3. Hyperlipidemia. 4. Diabetes mellitus type 2 5. Diabetic polyneuropathy. 6. PAD. 7. Prostate cancer. 8. Erectile dysfunction. 9. Spondylosis of the lumbar spine. 10. Osteoarthritis. 11. Spondylosis of the cervical spine. 12. Constipation. 13. Septic arthritis left knee and MSSA bacteremia status post revision. 14. C. difficile colitis. PAST SURGICAL HISTORY: Left knee arthroscopic surgery x2. Left total knee arthroplasty. Right total hip replacement with revision due to infection Prostate biopsy. Bilateral cataract surgery. Left heart catheterization in August 2017 with a stent placement of the RCA. Left heart catheterization 07/28/2020 with attempted PCI of the RCA. Left heart catheterization 07/30/2020 with 2 stents placement of the RCA Adenoidectomy with tonsillectomy. Colonoscopy. Epidural injection of the lumbar spine with radiofrequency ablation. SOCIAL HISTORY: Patient is a smoker a pack every day smoked for many years and quit many years ago, he denies any alcohol ingestion, patient used to work for the [employer]. Patient resides at assisted living. FAMILY HISTORY: Father at age of 49 from myocardial infarction, mother at age of 81 from uterine cancer with metastatic disease, patient has one brother with chronic tobacco use and dependence, patient has no sisters, patient has one son no major medical problems, he had 2 daughters one of them from dishing muscular dystrophy the other one is alive and lives in [place]. PHYSICAL EXAMINATION: General: This is 75-year-old male who appears to be in severely ill. HEENT: Head is atraumatic, normocephalic, pupils were equal round reactive to light and recommendation, extraocular muscle movement were intact, sclera nonicteric, conjunctivae were pale, mucous membranes of the mouth are dry. Neck: Supple, no JVP, normal carotid upstroke bilaterally, no lymphadenopathy. Chest: Decreased breath sounds at the bases, few rhonchi, no extremity wheezes, no chest wall tenderness, no intercostal retractions. Heart: First heart sound is normal, second heart sound is normal there is systolic ejection murmur 2/6 left sternal border. Abdomen: Soft, nontender, nondistended, positive bowel sounds, no hepatosplenomegaly Extremities: There is no edema no calf tenderness DP + 1 bilaterally, left knee with large dressing in place. Skin: There is a stage II 3 decubitus ulcer in the coccyx area with current wound dressing as per infectious disease. Neurologic examination: Patient is resting on the ER stretcher, moaning, briefly opens eyes to verbal stimuli, unable to follow commands. ASSESSMENT AND PLAN: 1. Sepsis of unclear etiology with previous history of septic arthritis in the left knee, status post diagnostic lumbar puncture, blood cultures obtained. Admit patient into the intensive care unit, consult with home health care social worker, patient is currently on cefepime 2 g IV piggyback every 8 hours, vancomycin, pharmacy dosing, await results of lumbar puncture. 2. Non-ST elevated myocardial infarction. Patient started on heparin drip, cardiology consult, repeat troponins. 3. Metabolic encephalopathy of unclear etiology. Consult with neurology and Dr. Marco A rodríguez. 4. History of MSSA left knee joint infection status post stage II revision, 5. Severe lactic acidosis. Patient is status post 3 L of IV fluids, continue protocol. 6. A. fib with RVR, new onset paroxysmal atrial fibrillation. Patient's been started on heparin drip, Cardizem drip, cardiology consult. 7. Coronary artery disease status post Left heart catheterization with PCI of the RCA on 07/30/2020. Continue patient on aspirin 81 mg once every day, continue metoprolol 50 mg orally twice every day. 8. Hypertension and hypertensive cardiovascular disease. Continue metoprolol 50 mg orally twice every day. 9. Hyperlipidemia. Continue patient on atorvastatin 80 mg orally once every day--patient is not currently on statin. 10. Diabetes mellitus type 2. Hold Farxiga 5 mg orally daily and Janumet 100/1000 g orally once every day, monitor glucose level before each meal and at bedtime with NovoLog scale. 11. History of prostate cance status post rotation. Stable at this time. 12. 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 13. History of Urinary retention. 14. DVT prophylaxis. Heparin drip 15. GI prophylaxis. Protonix 40 mg orally twice daily. 16. Patient is full code. Patient admitted to the hospital for a minimum of 2 night stay. Prognosis guarded. Impression and plan of care have been directed as dictated by the signing physician. Padma Monsalve nurse practitioner acting as scribe for signing physician. Past Medical History Past Medical History: Atrial Fibrillation, Coronary Artery Disease (CAD), C ancer, Chest Pain / Angina, Diabetes Mellitus, GERD/Reflux, Hyperlipidemia, Hypertension, Osteoarthritis (OA), Prostate Disorder Additional Past Medical History / Comment(s): 5 Herniated discs in neck causing headaches & numbness in arm and right lower back and pain and right leg pain. Hx 4 fx ribs, current Prostate Cancer- last radiation tx Mar 25 had total of 44 tx. occ constipation, Last Myocardial Infarction Date:: UNKOWN History of Any Multi-Drug Resistant Organisms: VRE Date of last positivie culture/infection: 09/18/20 MDRO Source:: Wound Past Surgical History: Adenoidectomy, Heart Catheterization, Heart Catheterization With Stent, Joint Replacement, Orthopedic Surgery, Tonsillectomy Additional Past Surgical History / Comment(s): PROSTATE BX., LT. KNEE ARTHROSCOPY X 2, CERVICAL FUSIONS, COLONOSCOPY, ÁNGEL. CATARTACTS.Pain Procedures , rt radio frequency procedures. , total 3 heart stents, hemorrhoidectomy,heart cath August 2017-lt knee replacement. Stent replacement Past Anesthesia/Blood Transfusion Reactions: No Reported Reaction Additional Past Anesthesia/Blood Transfusion Reaction / Comment(s): doesn't like enclosed tight spaces Date of Last Stent Placement:: 04/24/17 Past Psychological History: No Psychological Hx Reported Smoking Status: Former smoker Past Alcohol Use History: None Reported Past Drug Use History: None Reported - Past Family History Father Additional Family Medical History / Comment(s): Father at age 49 from coronary artery disease. Brother(s) Additional Family Medical History / Comment(s): Patient has one brother with history of smoking and no other major medical problems. Patient does not have any sisters. Daughter(s) Additional Family Medical History / Comment(s): Patient has one daughter with history of muscular dystrophy and of pneumonia. Son(s) Family Medical History: No Reported History Additional Family Medical History / Comment(s): Patient has one son with no major medical problems. Mother Family Medical History: Cancer Additional Family Medical History / Comment(s): Mother at age 81 from uterine cancer with metastatic disease. Medications and Allergies Home Medications Medication Instructions Recorded Confirmed Type Atorvastatin [Lipitor] 80 mg PO HS 09/01/20 09/11/21 History Metoprolol Tartrate [Lopressor] 50 mg PO BID 09/17/20 09/11/21 History sitaGLIPtin PHOS/metFORMIN HCL 1 tab PO DAILY 02/23/21 09/11/21 History [Janumet Xr 100-1,000 mg Tablet] Dapagliflozin Propanediol [Farxiga] 5 mg PO DAILY 05/29/21 09/11/21 History Baclofen [Lioresal] 10 mg PO HS #30 tab 06/05/21 09/11/21 Rx Aspirin EC [Ecotrin Low Dose] 81 mg PO DAILY 09/11/21 09/11/21 History HYDROcodone/APAP 10-325MG [[place] 1 tab PO Q8H PRN 09/11/21 09/11/21 History 10-325] Allergies Allergy/AdvReac Type Severity Reaction Status Date / Time No Known Allergies Allergy Verified 09/11/21 10:05 Physical Exam Vitals: Vital Signs Temp Pulse Resp BP Pulse Ox 09/11/21 09:17 102.8 F H 117 H 20 154/88 93 L 09/11/21 07:02 123 H 20 154/90 90 L 09/11/21 06:00 125 H 18 166/102 92 L 09/11/21 05:00 125 H 18 183/86 09/11/21 03:00 120 H 14 94 L 09/11/21 02:00 111 H 18 175/88 95 09/11/21 01:57 107 H 16 94 L 09/11/21 00:40 93 18 191/96 96 09/11/21 00:28 101 H 18 131/88 09/11/21 00:19 98.9 F 99 18 145/109 93 L Intake and Output 09/10/21 09/11/21 09/11/21 22:59 06:59 14:59 Output Total 1800 Balance -1800 Output: Urine 1800 Other: Weight 99.79 kg Results CBC & Chem 7: 09/11/21 00:46 09/11/21 00:46 Labs: Abnormal Lab Results - Last 24 Hours (Table) 09/11/21 09/11/21 09/11/21 Range/Units 00:24 00:46 00:46 Plt Count 138 L (150-450) k/uL Lymphocytes # 0.5 L (1.0-4.8) k/uL APTT 18.6 L (22.0-30.0) sec Sodium (137-145) mmol/L Carbon Dioxide (22-30) mmol/L Glucose (74-99) mg/dL POC Glucose (mg/dL) 206 H (75-99) mg/dL Plasma Lactic Acid Rob (0.7-2.0) mmol/L Total Bilirubin (0.2-1.3) mg/dL ALT (4-49) U/L Troponin I (0.000-0.034) ng/mL Urine Protein (Negative) Urine Glucose (UA) (Negative) Urine Ketones (Negative) Urine Blood (Negative) Urine RBC (0-5) /hpf Urine Bacteria (None) /hpf Urine Mucus (None) /hpf 09/11/21 09/11/21 09/11/21 Range/Units 00:46 00:46 01:50 Plt Count (150-450) k/uL Lymphocytes # (1.0-4.8) k/uL APTT (22.0-30.0) sec Sodium 133 L (137-145) mmol/L Carbon Dioxide 19 L (22-30) mmol/L Glucose 207 H (74-99) mg/dL POC Glucose (mg/dL) (75-99) mg/dL Plasma Lactic Acid Rob 7.3 H* (0.7-2.0) mmol/L Total Bilirubin 1.4 H (0.2-1.3) mg/dL ALT 56 H (4-49) U/L Troponin I (0.000-0.034) ng/mL Urine Protein 3+ H (Negative) Urine Glucose (UA) 4+ H (Negative) Urine Ketones 1+ H (Negative) Urine Blood Moderate H (Negative) Urine RBC 6 H (0-5) /hpf Urine Bacteria Many H (None) /hpf Urine Mucus Rare H (None) /hpf 09/11/21 09/11/21 Range/Units 07:53 07:53 Plt Count (150-450) k/uL Lymphocytes # (1.0-4.8) k/uL APTT (22.0-30.0) sec Sodium (137-145) mmol/L Carbon Dioxide (22-30) mmol/L Glucose (74-99) mg/dL POC Glucose (mg/dL) (75-99) mg/dL Plasma Lactic Acid Rob 3.9 H* (0.7-2.0) mmol/L Total Bilirubin (0.2-1.3) mg/dL ALT (4-49) U/L Troponin I 2.370 H* (0.000-0.034) ng/mL Urine Protein (Negative) Urine Glucose (UA) (Negative) Urine Ketones (Negative) Urine Blood (Negative) Urine RBC (0-5) /hpf Urine Bacteria (None) /hpf Urine Mucus (None) /hpf
--- NOTE | 2021-09-11 16:01 | P.CNPUL ---
History of Present Illness Consult date: 09/11/21 Chief complaint: Sepsis, altered mentation, lactic acidosis History of present illness: 75-year-old male patient seen in the emergency department because of altered mentation and fever. The patient is unable to volunteer any history. Reviewed the records. Discussed the case with the various consultants. In summary, the patient has been feeling weak, had falls and he has not been feeling well over the past few days. He also reports some cough and generalized weakness. No chest pain. No pleurisy. No hemoptysis. No neck pain. No neck stiffness. No skin rashes. In the ED, the patient was found to have a temperature of 102.8 and he was quite tachycardic. He was confused than he was unable to volunteer any information. Blood work showed a white cell count of 5.8 with a hemoglobin of 14.1 and the sodium level was 133 with a BUN of 16 and a creatinine of 0.8. Initial lactic acid level was 7.3 and the patient was given a total of 2 L of IV fluids in the subsequent lactic acid level came down to 3.9. Total bilirubin was 1.4 with AST of 50 and ALT of 56 and a normal alkaline phosphatase. Troponin was at 0.013 and subsequent level came back at 2.3 consistent with acute non-ST segment elevation myocardial infarction. UA showed 6 RBCs, bacteria was present, however, the total number of WBCs were only 2. The patient +3 protein, +4 glucose and +1 ketones. Note that the patient also had a negative coronary testing. Influenza screen was also negative. Chest x-ray showed negative abnormalities. CAT scan of the abdomen and pelvis also showed negative abnormalities. There was some subsegmental atelectatic changes in lung bases bilaterally. Alcohol level was negative. Urine drug screen has not been done. Lumbar puncture was treated on this patient and the result is still pending for now. In the ED, the patient was started on IV fluids. The patient is currently on normal saline at the rate of 130s's an hour. The patient was given IV cefepime and IV vancomycin. The patient was also started on IV heparin regarding the acute non-STEMI. The patient's cardiac rhythm was also in A. fib RVR and the patient was started on a Cardizem drip for rate control at 5 mg an hour. Upon further inspection, the patient had a previous left knee surgery probably an arthroplasty. The knee was slightly swollen and there was no tenderness or warmth or any drainage. He also had a healing sacral ulcer with some limited erythema. No evidence of any cellulitis or draining wound in the back area. He is known to have multiple medical problems and comorbidities including previous history of coronary artery disease, previous coronary intervention and stenting back in November 2019 involving the mid RCA and the patient also has hypertension, hypertensive heart disease, hyperlipidemia, diabetes mellitus type 2, diabetic peripheral neuropathy, lumbar spondylosis with chronic pain requiring epidural injections and previous ablations, prostate cancer with a previous radiation therapy and the patient has had previous history of MSSA septic arthritis of the left knee. He is known to have also erectile dysfunction and peripheral neuropathy and peripheral vascular disease. Review of Systems ROS unobtainable: due to mental status Past Medical History Past Medical History: Atrial Fibrillation, Coronary Artery Disease (CAD), Cancer, Chest Pain / Angina, Diabetes Mellitus, GERD/Reflux, Hyperlipidemia, Hypertension, Osteoarthritis (OA), Prostate Disorder Additional Past Medical History / Comment(s): 5 Herniated discs in neck causing headaches & numbness in arm and right lower back and pain and right leg pain. Hx 4 fx ribs, current Prostate Cancer- last radiation tx Mar 25 had total of 44 tx. occ constipation, Last Myocardial Infarction Date:: UNKOWN History of Any Multi-Drug Resistant Organisms: VRE Date of last positivie culture/infection: 09/18/20 MDRO Source:: Wound Past Surgical History: Adenoidectomy, Heart Catheterization, Heart Catheterization With Stent, Joint Replacement, Orthopedic Surgery, Tonsillectomy Additional Past Surgical History / Comment(s): PROSTATE BX., LT. KNEE ARTHROSCOPY X 2, CERVICAL FUSIONS, COLONOSCOPY, ÁNGEL. CATARTACTS.Pain Procedures , rt radio frequency procedures. , total 3 heart stents, hemorrhoidectomy,heart cath August 2017-lt knee replacement. Stent replacement \2020 Past Anesthesia/Blood Transfusion Reactions: No Reported Reaction Additional Past Anesthesia/Blood Transfusion Reaction / Comment(s): doesn't like enclosed tight spaces Date of Last Stent Placement:: 04/24/17 Past Psychological History: No Psychological Hx Reported Smoking Status: Former smoker Past Alcohol Use History: None Reported Past Drug Use History: None Reported - Past Family History Father Additional Family Medical History / Comment(s): Father at age 49 from coronary artery disease. Brother(s) Additional Family Medical History / Comment(s): Patient has one brother with history of smoking and no other major medical problems. Patient does not have any sisters. Daughter(s) Additional Family Medical History / Comment(s): Patient has one daughter with history of muscular dystrophy and of pneumonia. Son(s) Family Medical History: No Reported History Additional Family Medical History / Comment(s): Patient has one son with no major medical problems. Mother Family Medical History: Cancer Additional Family Medical History / Comment(s): Mother at age 81 from uterine cancer with metastatic disease. Medications and Allergies Home Medications Medication Instructions Recorded Confirmed Type Atorvastatin [Lipitor] 80 mg PO HS 09/01/20 09/11/21 History Metoprolol Tartrate [Lopressor] 50 mg PO BID 09/17/20 09/11/21 History sitaGLIPtin PHOS/metFORMIN HCL 1 tab PO DAILY 02/23/21 09/11/21 History [Janumet Xr 100-1,000 mg Tablet] Dapagliflozin Propanediol [Farxiga] 5 mg PO DAILY 05/29/21 09/11/21 History Baclofen [Lioresal] 10 mg PO HS #30 tab 06/05/21 09/11/21 Rx Aspirin EC [Ecotrin Low Dose] 81 mg PO DAILY 09/11/21 09/11/21 History HYDROcodone/APAP 10-325MG [[place] 1 tab PO Q8H PRN 09/11/21 09/11/21 History 10-325] Allergies Allergy/AdvReac Type Severity Reaction Status Date / Time No Known Allergies Allergy Verified 09/11/21 10:05 Physical Exam Vitals: Vital Signs Temp Pulse Resp BP Pulse Ox 09/11/21 09:17 102.8 F H 117 H 20 154/88 93 L 09/11/21 07:02 123 H 20 154/90 90 L 09/11/21 06:00 125 H 18 166/102 92 L 09/11/21 05:00 125 H 18 183/86 09/11/21 03:00 120 H 14 94 L 09/11/21 02:00 111 H 18 175/88 95 09/11/21 01:57 107 H 16 94 L 09/11/21 00:40 93 18 191/96 96 09/11/21 00:28 101 H 18 131/88 09/11/21 00:19 98.9 F 99 18 145/109 93 L Intake and Output 09/11/21 09/11/21 09/11/21 06:59 14:59 22:59 Output Total 1800 Balance -1800 Output: Urine 1800 Other: Weight 99.79 kg General: This is 75-year-old male who appears to be in severely ill. The patient is not having any respiratory difficulties and the patient is currently on room air oxygen. Breathing is nonlabored at this point in time. Head exam was generally normal. There was no scleral icterus or corneal arcus. Mucous membranes were moist. Neck was supple and without jugular venous distension, thyromegaly, or carotid bruits. Carotids were easily palpable bilaterally. There was no adenopathy. The patient does not have any neck stiffness or meningeal signs at this point in time.Supple, no JVP, normal carotid upstroke bilaterally, no lymphadenopathy. Chest: Decreased breath sounds at the bases, few rhonchi, no extremity wheezes, no chest wall tenderness, no intercostal retractions. Heart: First heart sound is normal, second heart sound is normal there is systolic ejection murmur 2/6 left sternal border. Abdomen: Soft, nontender, nondistended, positive bowel sounds, no hepatosple nomegaly Extremities: There is no edema no calf tenderness DP + 1 bilaterally, left knee with large dressing in place. The patient has undergone previous left knee arthroplasty. Left knee is slightly swollen compared to right. Nevertheless, there is no fluid or erythema involving the joint. Upon passive range of motion, no significant pain and is associated Skin: There is a stage II decubitus ulcer in the coccyx area with current wound dressing as per infectious disease. No open wounds or sores. No evidence of any cellulitis. No drainage. Neurologic examination: Patient is resting on the ER stretcher, moaning, briefly opens eyes to verbal stimuli, unable to follow commands. The patient will go 4 extremities without any limitation. Results - Laboratory Findings CBC and BMP: 09/11/21 00:46 09/11/21 00:46 PT/INR, D-dimer PT 11.6 sec (9.0-12.0) 09/11/21 00:46 INR 1.1 (<1.2) 09/11/21 00:46 Abnormal lab findings: Abnormal Labs 09/11/21 09/11/21 09/11/21 00:24 00:46 00:46 Plt Count 138 L Lymphocytes # 0.5 L APTT 18.6 L Sodium Carbon Dioxide Glucose POC Glucose (mg/dL) 206 H Plasma Lactic Acid Rob Total Bilirubin ALT Troponin I Urine Protein Urine Glucose (UA) Urine Ketones Urine Blood Urine RBC Urine Bacteria Urine Mucus 09/11/21 09/11/21 09/11/21 00:46 00:46 01:50 Plt Count Lymphocytes # APTT Sodium 133 L Carbon Dioxide 19 L Glucose 207 H POC Glucose (mg/dL) Plasma Lactic Acid Rob 7.3 H* Total Bilirubin 1.4 H ALT 56 H Troponin I Urine Protein 3+ H Urine Glucose (UA) 4+ H Urine Ketones 1+ H Urine Blood Moderate H Urine RBC 6 H Urine Bacteria Many H Urine Mucus Rare H 09/11/21 09/11/21 07:53 07:53 Plt Count Lymphocytes # APTT Sodium Carbon Dioxide Glucose POC Glucose (mg/dL) Plasma Lactic Acid Rob 3.9 H* Total Bilirubin ALT Troponin I 2.370 H* Urine Protein Urine Glucose (UA) Urine Ketones Urine Blood Urine RBC Urine Bacteria Urine Mucus - Diagnostic Findings Chest x-ray: image reviewed Assessment and Plan Plan: Sepsis, currently under investigation. The patient came in with altered mentation and fever and lactic acidosis. Lumbar puncture was performed in the emergency department and results are still pending for now. Urine and blood cultures of been sent and the patient is covered with empiric antibiotics with cefepime and vancomycin. Patient was also given IV fluids. Lactic acid levels are improving. Meningitis was suspected and the patient was given a lumbar puncture. He still pending for now. No meningeal signs. Consider underlying encephalitis. COVID 19 testing is been negative. Influenza A and B were also negative. The exact source of the sepsis is not clear. Doubt septic joint. Doubt meningitis. No evidence of pneumonia. Blunt abdominal abnormalities and abdominal exam is benign. No open wounds or sores in the sacral wound is healing nicely. Awaiting final cultures. Altered mental status secondary to above, CAT scan of the brain is negative Acute lactic acidosis, improving acute non-ST segment elevation myocardial infarction currently on IV heparin Atrial fibrillation with RVR currently on a Cardizem drip for rate control Coronary artery disease with previous coronary stenting involving the RCA back in July 2020. 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 Plan Continue the patient needs to be transferred to the intensive care unit Urine cultures and blood cultures and CSF cultures Awaiting CSF cell count and chemistry Cover with antibiotics Patient was given a comprehensive cefepime and vancomycin emerged department, the patient was given for given IV fluids and currently on normal saline at the rate of 130s's an hour Continue IV heparin Continue Cardizem drip for rate control Obtain an echocardiogram Keep the patient nothing by mouth for now The urine drug screen Admit this patient to the ICU and will follow up this patient along with the rest of the consultants from cardiology, infectious disease and neurology.
[2021-09-11] MEDS: HEPARIN SOD,PORK IN 0.45% NACL 25,000 UNIT in 0.45% NACL 1 250ML.BAG IV SCH (16:57)
[2021-09-11] MEDS: CEFEPIME 2 GM in SODIUM CHLORIDE 0.9% 100 ML IVPB SCH (16:59)
[2021-09-11] MEDS: PANTOPRAZOLE 40 MG/10 ML VIAL IVP SCH (17:03)
[2021-09-11 17:50] LABS: Glucose,Whole Blood 167 mg/dL (75-99)
[2021-09-11] MEDS ORDERED: NALOXONE 0.4 MG/ML 1 ML VIAL IV PRN (18:08)
[2021-09-11 18:24] LABS: Glucose,CSF 116 mg/dL (40-70); Total Protein,CSF 116 mg/dL (12-60)
[2021-09-11 18:31] LABS: Appearance,CSF Clear; CSF Tube Number 4; CSF Tube Volume 1.6
[2021-09-11 18:33] LABS: Nucleated Cells, CSF 3 u/L (0-5); Red Blood Cell,CSF 3 u/L (0-10)
[2021-09-11] MEDS: INSULIN ASPART (NovoLOG) 100 UNIT/ML VIAL SQ SCH (18:37)
[2021-09-11] MEDS ORDERED: ASPIRIN 300 MG SUPP RECTAL STA (21:25)
[2021-09-11] MEDS ORDERED: DEXTROSE 5% IN WATER 100 ML with AMIODARONE 150 MG IV ONE (22:00)
[2021-09-11] MEDS ORDERED: AMIODARONE 360 MG in DEXTROSE 5% IN WATER 200 ML IV ONE ×2 (22:15)
[2021-09-11] MEDS: METOPROLOL TARTRATE 25 MG TAB PO SCH (22:43)
[2021-09-11 22:52] LABS: ABG Base Excess -3.2 mmol/L; ABG HCO3 20 mmol/L (21-25); ABG PCO2 23 mmHg (35-45); ABG PH 7.54 (7.35-7.45); ABG PO2 62 mmHg (83-108); ABG TCO2 20 mmol/L (19-24); Allen Test Performed? Yes
[2021-09-11] MEDS ORDERED: SODIUM CHLORIDE 0.9% 1,000 ML IV ONE (23:10)
--- NOTE | 2021-09-11 23:29 | P.CONS ---
History of Present Illness - Reason for Consult Consult date: 09/11/21 suspected sepsis Requesting physician: Jermain Hall - Chief Complaint Mental status changes and fever x one day - History of Present Illness Patient is a 76-year-old male with a past medical history significant for left knee septic arthritis, for the patient has completed his treatment patient did develop a sacral pressure ulcer for the patient currently followed at [facility] and that wound is almost healed, patient has been brought into the ER for evaluation of mental status changes and fever apparently the patient did have a fall and has not been feeling well for the last few days mostly generalized weakness no clear history of any vomiting diarrhea patient on presentation to the hospital did have a fever of 102.8 F, patient did have a normal white count having some lymphopenia BUN/creatinine was normal did have elevated lactic acid urine was negative maharaj influenza PCR was negative patient did have a chest x-ray minimal subsegmental atelectasis overall no adverse changes patient did have a CT of abdominal pelvis without any contrast did not show any acute abnormality some atelectasis at the lung bases, patient was noticed to be sleepy lethargic and did not provide any history most information has been obtained from review the chart talking to nursing staff and reviewing his records Review of Systems Positive points has been mentioned in HPI complete review could not be obtained because of his underlying mental status Past Medical History Past Medical History: Atrial Fibrillation, Coronary Artery Disease (CAD), Cancer, Chest Pain / Angina, Diabetes Mellitus, GERD/Reflux, Hyperlipidemia, Hypertension, Osteoarthritis (OA), Prostate Disorder Additional Past Medical History / Comment(s): 5 Herniated discs in neck causing headaches & numbness in arm and right lower back and pain and right leg pain. Hx 4 fx ribs, current Prostate Cancer- last radiation tx Mar 25 had total of 44 tx. occ constipation, Last Myocardial Infarction Date:: UNKOWN History of Any Multi-Drug Resistant Organisms: VRE Year Discovered:: 09/18/20 MDRO Source:: Wound Past Surgical History: Adenoidectomy, Heart Catheterization, Heart Catheterization With Stent, Joint Replacement, Orthopedic Surgery, Tonsillectomy Additional Past Surgical History / Comment(s): PROSTATE BX., LT. KNEE ARTHROSC OPY X 2, CERVICAL FUSIONS, COLONOSCOPY, ÁNGEL. CATARTACTS.Pain Procedures , rt radio frequency procedures. , total 3 heart stents, hemorrhoidectomy,heart cath August 2017-lt knee replacement. Stent replacement Past Anesthesia/Blood Transfusion Reactions: No Reported Reaction Additional Past Anesthesia/Blood Transfusion Reaction / Comm: doesn't like enclosed tight spaces Date of Last Stent Placement:: 04/24/17 Past Psychological History: No Psychological Hx Reported Smoking Status: Former smoker Past Alcohol Use History: None Reported Past Drug Use History: None Reported - Past Family History Father Additional Family Medical History / Comment(s): Father at age 49 from coronary artery disease. Brother(s) Additional Family Medical History / Comment(s): Patient has one brother with history of smoking and no other major medical problems. Patient does not have any sisters. Daughter(s) Additional Family Medical History / Comment(s): Patient has one daughter with history of muscular dystrophy and of pneumonia. Son(s) Family Medical History: No Reported History Additional Family Medical History / Comment(s): Patient has one son with no major medical problems. Mother Family Medical History: Cancer Additional Family Medical History / Comment(s): Mother at age 81 from uterine cancer with metastatic disease. Medications and Allergies Home Medications Medication Instructions Recorded Confirmed Type Atorvastatin [Lipitor] 80 mg PO HS 09/01/20 09/11/21 History sitaGLIPtin PHOS/metFORMIN HCL 1 tab PO DAILY 02/23/21 09/11/21 History [Janumet Xr 100-1,000 mg Tablet] Dapagliflozin Propanediol [Farxiga] 5 mg PO DAILY 05/29/21 09/11/21 History Aspirin EC [Ecotrin Low Dose] 81 mg PO DAILY 09/11/21 09/11/21 History Amiodarone [Cordarone] 400 mg PO BID #60 tab 09/22/21 Rx Apixaban [Eliquis] 5 mg PO BID tab 09/22/21 Rx Cholestyramine (with Sugar) 4 gm PO BID@1000,1800 packet 09/22/21 Rx [Questran Packet] Folic Acid 1 mg PO DAILY tab 09/22/21 Rx Furosemide [Lasix] 40 mg PO DAILY tab 09/22/21 Rx Losartan [Cozaar] 100 mg PO DAILY tab 09/22/21 Rx Metoprolol Tartrate [Lopressor] 50 mg PO TID tab 09/22/21 Rx Nitroglycerin Sl Tabs [Nitrostat] 0.4 mg SUBLINGUAL Q5M PRN tab 09/22/21 Rx Nystatin 100,000 Unit/ml Susp 500,000 unit PO QID #100 ml 09/22/21 Rx [Mycostatin Oral Susp] Pantoprazole [Protonix] 40 mg PO AC-BRKFST tab 09/22/21 Rx Spironolactone [Aldactone] 25 mg PO DAILY tab 09/22/21 Rx Tamsulosin [Flomax] 0.4 mg PO PC-SUPPER cap 09/22/21 Rx Allergies Allergy/AdvReac Type Severity Reaction Status Date / Time No Known Allergies Allergy Verified 09/11/21 10:05 Physical Exam Vitals: Vital Signs Temp Pulse Resp BP Pulse Ox 09/11/21 09:17 102.8 F H 117 H 20 154/88 93 L 09/11/21 07:02 123 H 20 154/90 90 L 09/11/21 06:00 125 H 18 166/102 92 L 09/11/21 05:00 125 H 18 183/86 09/11/21 03:00 120 H 14 94 L 09/11/21 02:00 111 H 18 175/88 95 09/11/21 01:57 107 H 16 94 L 09/11/21 00:40 93 18 191/96 96 09/11/21 00:28 101 H 18 131/88 09/11/21 00:19 98.9 F 99 18 145/109 93 L Intake and Output 09/10/21 09/11/21 09/11/21 22:59 06:59 14:59 Output Total 1800 Balance -1800 Output: Urine 1800 Other: Weight 99.79 kg GENERAL DESCRIPTION: Elderly male lying in bed, no distress. No tachypnea or accessory muscle of respiration use. HEENT: Shows Pallor , no scleral icterus. Oral mucous membrane is dry. No pharyngeal erythema or thrush NECK: Trachea central, no thyromegaly. LUNGS: Unlabored breathing. Decreased breath sounds at the bases. No wheeze or crackle. HEART: S1, S2, regular rate and rhythm. No loud murmur ABDOMEN: Soft, no tenderness , guarding or rigidity, no organomegaly EXTREMITIES: No edema of feet. SKIN: No rash, no masses palpable. NEUROLOGICAL: The patient is sleepy and lethargic orientation could not be determined Results CBC & Chem 7: 06/06/22 08:38 09/22/21 08:38 Labs: Abnormal Lab Results - Last 24 Hours (Table) 09/11/21 09/11/21 09/11/21 Range/Units 00:24 00:46 00:46 Plt Count 138 L (150-450) k/uL Lymphocytes # 0.5 L (1.0-4.8) k/uL APTT 18.6 L (22.0-30.0) sec Sodium (137-145) mmol/L Carbon Dioxide (22-30) mmol/L Glucose (74-99) mg/dL POC Glucose (mg/dL) 206 H (75-99) mg/dL Plasma Lactic Acid Rob (0.7-2.0) mmol/L Total Bilirubin (0.2-1.3) mg/dL ALT (4-49) U/L Troponin I (0.000-0.034) ng/mL Urine Protein (Negative) Urine Glucose (UA) (Negative) Urine Ketones (Negative) Urine Blood (Negative) Urine RBC (0-5) /hpf Urine Bacteria (None) /hpf Urine Mucus (None) /hpf 09/11/21 09/11/21 09/11/21 Range/Units 00:46 00:46 01:50 Plt Count (150-450) k/uL Lymphocytes # (1.0-4.8) k/uL APTT (22.0-30.0) sec Sodium 133 L (137-145) mmol/L Carbon Dioxide 19 L (22-30) mmol/L Glucose 207 H (74-99) mg/dL POC Glucose (mg/dL) (75-99) mg/dL Plasma Lactic Acid Rob 7.3 H* (0.7-2.0) mmol/L Total Bilirubin 1.4 H (0.2-1.3) mg/dL ALT 56 H (4-49) U/L Troponin I (0.000-0.034) ng/mL Urine Protein 3+ H (Negative) Urine Glucose (UA) 4+ H (Negative) Urine Ketones 1+ H (Negative) Urine Blood Moderate H (Negative) Urine RBC 6 H (0-5) /hpf Urine Bacteria Many H (None) /hpf Urine Mucus Rare H (None) /hpf 09/11/21 09/11/21 Range/Units 07:53 07:53 Plt Count (150-450) k/uL Lymphocytes # (1.0-4.8) k/uL APTT (22.0-30.0) sec Sodium (137-145) mmol/L Carbon Dioxide (22-30) mmol/L Glucose (74-99) mg/dL POC Glucose (mg/dL) (75-99) mg/dL Plasma Lactic Acid Rob 3.9 H* (0.7-2.0) mmol/L Total Bilirubin (0.2-1.3) mg/dL ALT (4-49) U/L Troponin I 2.370 H* (0.000-0.034) ng/mL Urine Protein (Negative) Urine Glucose (UA) (Negative) Urine Ketones (Negative) Urine Blood (Negative) Urine RBC (0-5) /hpf Urine Bacteria (None) /hpf Urine Mucus (None) /hpf Assessment and Plan (1) Sepsis Status: Acute Code(s): A41.9 - SEPSIS, UNSPECIFIED ORGANISM SNOMED Code(s): 29499147 Plan: 1patient presented to hospital with mental status changes and fever and this patient did have a fall patient did have initial work-up for the fever including a UA chest x-ray CT abdominal pelvis has been negative patient did have history of left knee septic arthritis however the knee do not have any significant swelling or redness with minimal warmth with concern for possible GAGE DESIGNER infection for the patient did have LP completed analysis is pending. 2patient to continue empiric vancomycin and cefepime while waiting for the work-up to be completed and cultures to be finalized. 3Aquacel dressing to the sacral wound changed to 48-hour. We will follow on clinical condition and cultures to further adjust medication if needed Thank you for this consultation will follow this patient along with you Time with Patient: Greater than 30
[2021-09-11 23:47] LABS: Basophils % (A) 1 %; Eosinophils % (A) 0 %; HCT 41.6 % (39.0-53.0); HGB 13.6 gm/dL (13.0-17.5); Lymphocytes # (A) 0.7 k/uL (1.0-4.8); Lymphocytes % (A) 14 %; MCH 29.3 pg (25.0-35.0); MCHC 32.7 g/dL (31.0-37.0); MCV 89.8 fL (80.0-100.0); Mean Platelet Volume 7.4; Monocytes # (A) 0.5 k/uL (0-1.0); Monocytes % (A) 10 %; Neutrophils # (A) 3.6 k/uL (1.3-7.7); Neutrophils % (A) 74 %; Platelet Count 121 k/uL (150-450); RBC 4.63 m/uL (4.30-5.90); RDW 14.2 % (11.5-15.5); WBC 4.8 k/uL (3.8-10.6)
[2021-09-12] MEDS ORDERED: ACETAMINOPHEN IV (For NPO) 1,000 MG in EMPTY BAG 1 BAG IVPB PRN
[2021-09-12 00:04] LABS: Glucose,Whole Blood 178 mg/dL (75-99)
[2021-09-12 00:11] LABS: Creatine Kinase MB 13.5 ng/mL (0.0-2.4)
--- NOTE | 2021-09-12 00:14 | CT ---
CT scan of the brain. History weakness. Comparison today. FINDINGS: Exam limited slightly by motion. There is some cerebral cortical atrophy. There is no mass effect or midline shift. Detail of the frontal lobes is limited. No evidence of intracranial hemorrhage. The ca lvarium is intact. IMPRESSION: Cerebral atrophy that is more noticeable in the frontal lobes. No acute intracranial abnormality. Uribe ited exam. No change compared to exam earlier today.
--- NOTE | 2021-09-12 00:22 | CT ---
EXAMINATION TYPE: CODE STROKE: CTA head neck DATE OF EXAM: 09/12/2021 COMPARISON: 07/26/2014 HISTORY: Lt sided weakness. prior on PACS. CT DLP: mGycm Automated exposure control for dose reduction was used. CONTRAST: Performed with IV Contrast, patient injected with 65ml mL of Isovue 370. Images obtained from the aortic arch to the vertex of the brain with IV contrast. Exam limited somewh at by motion. There are Three-D postprocessed images. There is normal branching pattern of the great vessels on the aortic arch. There is bilateral arteria l flow in the subclavian arteries. There is arterial flow in the common internal and external carotid arteries bilaterally. There is moderate plaque at the carotid artery bifurcations. Detail limited by motion at the bifurcations. As best as one can tell there is 75% stenosis at the origin left interna l carotid artery and 30% stenosis origin of the right internal carotid artery. There is arterial flow in both vertebral arteries. There is arterial flow in the vertebrobasilar artery system. No evidence of carotid or vertebral artery aneurysm or dissection. There is arterial flow in the anterior middle and posterior cerebral arteries. There is no mass effec t. No evidence of intracranial aneurysm or neovascularity. No evidence of intracranial hemodynamic ar terial stenosis. There is normal enhancement of the venous sinuses. IMPRESSION: Negative CT angiogram of the brain. No change compared to old exam. CT angiogram of the neck appears to show stenosis as above at the origins of both internal carotid ar teries. Exam limited by motion. There is noted pansinusitis.
[2021-09-12 00:36] LABS: Albumin 3.6 g/dL (3.5-5.0); Calcium 7.9 mg/dL (8.4-10.2); Total Bilirubin 1.4 mg/dL (0.2-1.3); Total Protein 5.8 g/dL (6.3-8.2)
[2021-09-12] MEDS: HEPARIN SOD,PORK IN 0.45% NACL 25,000 UNIT in 0.45% NACL 1 250ML.BAG IV SCH (00:36)
[2021-09-12] MEDS ORDERED: propofoL 100 ML IV ONE (00:44)
[2021-09-12] MEDS ORDERED: Potassium Replacement Protocol 1 EACH MISC MISCELLANE PRN ×3 (01:09→06:32)
[2021-09-12 01:25] LABS: Glucose,Whole Blood 169 mg/dL (75-99)
[2021-09-12] MEDS: INSULIN ASPART (NovoLOG) 100 UNIT/ML VIAL SQ SCH ×4 (01:27→17:52)
[2021-09-12] MEDS: CEFEPIME 2 GM in SODIUM CHLORIDE 0.9% 100 ML IVPB SCH ×3 (01:28→19:54)
[2021-09-12] MEDS: SODIUM CHLORIDE 0.9% 1,000 ML IV SCH ×4 (01:32→18:57)
--- NOTE | 2021-09-12 01:35 | XR ---
EXAMINATION TYPE: XR chest 1V portable DATE OF EXAM: 09/12/2021 COMPARISON: Yesterday HISTORY: Respiratory failure. 2. Placement. TECHNIQUE: FINDINGS: There is endotracheal tube 5 cm from the roseanne. There is mild pulmonary congestion. There is some mild infiltrate and atelectasis left lower lobe. There are chest leads. There is nasogastric tube in the stomach. IMPRESSION: There is some mild infiltrate and atelectasis and pleural reaction left lower lobe which is mostly new compared to yesterday. No obvious heart failure.
[2021-09-12 01:36] LABS: ABG Base Excess -4.9 mmol/L; ABG HCO3 21 mmol/L (21-25); ABG PCO2 37 mmHg (35-45); ABG PH 7.35 (7.35-7.45); ABG PO2 393 mmHg (83-108); ABG TCO2 22 mmol/L (19-24); Allen Test Performed? Yes
[2021-09-12] MEDS ORDERED: NOREPINEPHRIN 4 MG-0.9% NS PMX 4 MG/250 ML ML IV ONE (02:25)
[2021-09-12] MEDS: NOREPINEPHRINE 4 MG in SODIUM CHLORIDE 0.9% 250 ML IV SCH ×3 (02:30→11:21)
[2021-09-12] MEDS: CHLORHEXIDINE GLUCONATE 15 ML CUP MUCOUS MEM SCH ×3 (03:05→19:54)
[2021-09-12] MEDS: POTASSIUM BICARBONATE/CIT AC 20 MEQ TABLET.EFF NG-TUBE SCH ×5 (03:05→09:19)
[2021-09-12] MEDS: AMIODARONE 450 MG in DEXTROSE 5% IN WATER 250 ML IV SCH ×4 (03:54→18:59)
[2021-09-12] MEDS: fentaNYL (PF). 1,000 MCG in SODIUM CHLORIDE 0.9% 80 ML IV SCH ×2 (04:07→17:45)
[2021-09-12] MEDS ORDERED: ASPIRIN 300 MG SUPP RECTAL STA ×2 (05:13→05:28)
[2021-09-12 05:25] LABS: Basophils % (A) 0 %; Eosinophils % (A) 0 %; HCT 38.4 % (39.0-53.0); HGB 12.9 gm/dL (13.0-17.5); Lymphocytes % (A) 16 %; MCH 30.3 pg (25.0-35.0); MCHC 33.5 g/dL (31.0-37.0); MCV 90.4 fL (80.0-100.0); Mean Platelet Volume 7.3; Monocytes # (A) 0.6 k/uL (0-1.0); Monocytes % (A) 10 %; Neutrophils # (A) 4.5 k/uL (1.3-7.7); Neutrophils % (A) 71 %; Platelet Count 150 k/uL (150-450); RBC 4.25 m/uL (4.30-5.90); RDW 14.4 % (11.5-15.5); WBC 6.4 k/uL (3.8-10.6)
[2021-09-12 05:51] LABS: Glucose,Whole Blood 207 mg/dL (75-99)
[2021-09-12 05:56] LABS: ABG HCO3 20 mmol/L (21-25); ABG Oxygen Saturation 99.1 % (94-97); ABG PCO2 33 mmHg (35-45); ABG PH 7.39 (7.35-7.45); ABG PO2 192 mmHg (83-108); ABG TCO2 21 mmol/L (19-24); Allen Test Performed? Yes
[2021-09-12 05:58] LABS: Calcium 7.3 mg/dL (8.4-10.2); Potassium 3.3 mmol/L (3.5-5.1)
[2021-09-12] MEDS: ASPIRIN 325 MG TAB PO SCH (08:02)
[2021-09-12] MEDS: PANTOPRAZOLE 40 MG/10 ML VIAL IVP SCH (08:02)
[2021-09-12] MEDS: METOPROLOL TARTRATE 25 MG TAB PO SCH ×2 (08:11→19:54)
[2021-09-12 09:56] LABS: HDL Cholesterol 30.5 mg/dL (40.00-60.00)
--- NOTE | 2021-09-12 09:57 | US ---
EXAMINATION TYPE: US carotid duplex BILAT DATE OF EXAM: 09/12/2021 COMPARISON: NONE CLINICAL HISTORY: carotid stenosis per CTA?. stenosis EXAM MEASUREMENTS: RIGHT: Peak Systolic Velocity (PSV) cm/sec ----- Right CCA: 58.6 ----- Right ICA: 106.4 ----- Right ECA: 77.4 ICA/CCA ratio: 1.8 RIGHT: End Diastole cm/sec ----- Right CCA: 10.3 ----- Right ICA: 22.5 ----- Right ECA: 0 LEFT: Peak Systolic Velocity (PSV) cm/sec ----- Left CCA: 62.8 ----- Left ICA: 100 ----- Left ECA: 74.1 ICA/CCA ratio: 1.6 LEFT: End Diastole cm/sec ----- Left CCA: 12.8 ----- Left ICA: 22.5 ----- Left ECA: 0 VERTEBRALS (direction of flow): Right Vertebral: Antegrade Left Vertebral: Antegrade Rhythm: Normal A scale, color Doppler, spectral Doppler imaging performed the carotid arteries. Waveform analysis do es not show significant stenosis of the proximal internal carotid arteries. No significant stenosis s een IMPRESSION: No hemodynamic significant stenosis of the proximal internal carotid arteries by Doppler criteria, an indirect measurement of carotid stenosis Criteria for Assigning % of Stenosis / Diameter reduction (Estimation based on the indirect measurements of the internal carotid artery velocities (ICA PSV). 1. Normal (no stenosis)=ICA PSV < 125 cm/s: ratio < 2.0: ICA EDV<40 cm/s. 2. Less than 50% stenosis=ICA PSV < 125 cm/s: ratio < 2.0: ICA EDV<40 cm/s. 3. 50 to 69% stenosis=ICA PSV of 125 to 230 cm/s: ration 2.0 ? 4.0: ICA EDV 40-100 cm/s. 4. Greater than 70% stenosis to near occlusion= ICA PSV > 230 cm/s: ratio > 4.0: ICA EDV > 100 cm/s. 5. Near occlusion= ICA PSV velocities may be low or undetectable: variable ratio and ICA EDV. 6. Total occlusion=unable to detect flow.
[2021-09-12 10:13] LABS: Chol/HDL Ratio 4.3 Ratio; LDL Cholesterol,Direct Reflex 59.3 mg/dL (0.00-129.00)
--- NOTE | 2021-09-12 10:24 | P.GSCN ---
History of Present Illness Consult date: 09/12/21 History of present illness: Patient is a 76-year-old male who initially presented to the ER after being found down. He was at a facility, found on the ground but awake. They stated he has not been feeling well for the last few days of generalized weakness. The patient is intubated and sedated therefore all history is obtained via the chart review and nursing staff. There is no reported he lateral weakness or strokelike symptoms. He had recent treatment for left septic knee arthritis. Review of Systems ROS unobtainable: due to endotracheal tube Past Medical History Past Medical History: Atrial Fibrillation, Coronary Artery Disease (CAD), Cancer, Chest Pain / Angina, Diabetes Mellitus, GERD/Reflux, Hyperlipidemia, Hypertension, Osteoarthritis (OA), Prostate Disorder Additional Past Medical History / Comment(s): 5 Herniated discs in neck causing headaches & numbness in arm and right lower back and pain and right leg pain. Hx 4 fx ribs, current Prostate Cancer- last radiation tx Mar 25 had total of 44 tx. occ constipation, Last Myocardial Infarction Date:: UNKOWN History of Any Multi-Drug Resistant Organisms: VRE Year Discovered:: 09/18/20 MDRO Source:: Wound Past Surgical History: Adenoidectomy, Heart Catheterization, Heart Catheterization With Stent, Joint Replacement, Orthopedic Surgery, Tonsillectomy Additional Past Surgical History / Comment(s): PROSTATE BX., LT. KNEE ARTHROSCOPY X 2, CERVICAL FUSIONS, COLONOSCOPY, ÁNGEL. CATARTACTS.Pain Procedures , rt radio frequency procedures. , total 3 heart stents, hemorrhoidectomy,heart cath August 2017-lt knee replacement. Stent replacement Past Anesthesia/Blood Transfusion Reactions: No Reported Reaction Additional Past Anesthesia/Blood Transfusion Reaction / Comm: doesn't like en closed tight spaces Date of Last Stent Placement:: 04/24/17 Past Psychological History: No Psychological Hx Reported Smoking Status: Former smoker Past Alcohol Use History: None Reported Past Drug Use History: None Reported - Past Family History Father Additional Family Medical History / Comment(s): Father at age 49 from coronary artery disease. Brother(s) Additional Family Medical History / Comment(s): Patient has one brother with history of smoking and no other major medical problems. Patient does not have any sisters. Daughter(s) Additional Family Medical History / Comment(s): Patient has one daughter with history of muscular dystrophy and of pneumonia. Son(s) Family Medical History: No Reported History Additional Family Medical History / Comment(s): Patient has one son with no major medical problems. Mother Family Medical History: Cancer Additional Family Medical History / Comment(s): Mother at age 81 from uteri ne cancer with metastatic disease. Medications and Allergies Home Medications Medication Instructions Recorded Confirmed Type Atorvastatin [Lipitor] 80 mg PO HS 09/01/20 09/11/21 History Metoprolol Tartrate [Lopressor] 50 mg PO BID 09/17/20 09/11/21 History sitaGLIPtin PHOS/metFORMIN HCL 1 tab PO DAILY 02/23/21 09/11/21 History [Janumet Xr 100-1,000 mg Tablet] Dapagliflozin Propanediol [Farxiga] 5 mg PO DAILY 05/29/21 09/11/21 History Baclofen [Lioresal] 10 mg PO HS #30 tab 06/05/21 09/11/21 Rx Aspirin EC [Ecotrin Low Dose] 81 mg PO DAILY 09/11/21 09/11/21 History HYDROcodone/APAP 10-325MG [[place] 1 tab PO Q8H PRN 09/11/21 09/11/21 History 10-325] Allergies Allergy/AdvReac Type Severity Reaction Status Date / Time No Known Allergies Allergy Verified 09/11/21 10:05 Surgical - Exam Vital Signs Temp Pulse Resp BP Pulse Ox 98.9 F 99 18 145/109 93 L 09/11/21 00:19 09/11/21 00:19 09/11/21 00:19 09/11/21 00:19 09/11/21 00:19 Intubated and sedated male. HEENT is normocephalic, atraumatic, extraction motion intact. Mechanical breath sounds. Heart appears regular at this time. No clubbing cyanosis or edema to the lower extremities. Some mild swelling of the left knee with healing scar. Extremities are warm and dry. Results Computed tomography scan of the neck shows possibly 75% stenosis of the left internal carotid artery. Ultrasound shows no significant stenosis of the bilate ral carotid arteries - Labs 09/12/21 05:05 09/12/21 05:05 Abnormal Lab Results - Last 24 Hours (Table) 09/11/21 09/11/2109/11/22 Range/Units 11:54 17:49 19:48 RBC (4.30-5.90) m/uL Hgb (13.0-17.5) gm/dL Hct (39.0-53.0) % Plt Count (150-450) k/uL Lymphocytes # (1.0-4.8) k/uL APTT (22.0-30.0) sec ABG pH (7.35-7.45) ABG pCO2 (35-45) mmHg ABG pO2 (83-108) mmHg ABG HCO3 (21-25) mmol/L ABG O2 Saturation (94-97) % Sodium (137-145) mmol/L Potassium (3.5-5.1) mmol/L Carbon Dioxide (22-30) mmol/L Glucose (74-99) mg/dL POC Glucose (mg/dL) 167 H (75-99) mg/dL Plasma Lactic Acid Rob (0.7-2.0) mmol/L Calcium (8.4-10.2) mg/dL Total Bilirubin (0.2-1.3) mg/dL AST (17-59) U/L CK-MB (CK-2) (0.0-2.4) ng/mL Troponin I 14.000 H* (0.000-0.034) ng/mL Total Protein (6.3-8.2) g/dL Triglycerides (0.00-149.00) mg/dL HDL Cholesterol (40.00-60.00) mg/dL CSF Glucose 116 H (40-70) mg/dL CSF Total Protein 116 H (12-60) mg/dL 09/11/21 09/11/21 09/11/21 Range/Units 19:48 19:48 22:50 RBC (4.30-5.90) m/uL Hgb (13.0-17.5) gm/dL Hct (39.0-53.0) % Plt Count (150-450) k/uL Lymphocytes # (1.0-4.8) k/uL APTT >200.0 H* (22.0-30.0) sec ABG pH 7.54 H (7.35-7.45) ABG pCO2 23 L (35-45) mmHg ABG pO2 62 L (83-108) mmHg ABG HCO3 20 L (21-25) mmol/L ABG O2 Saturation (94-97) % Sodium (137-145) mmol/L Potassium (3.5-5.1) mmol/L Carbon Dioxide (22-30) mmol/L Glucose (74-99) mg/dL POC Glucose (mg/dL) (75-99) mg/dL Plasma Lactic Acid Rob 2.9 H* (0.7-2.0) mmol/L Calcium (8.4-10.2) mg/dL Total Bilirubin (0.2-1.3) mg/dL AST (17-59) U/L CK-MB (CK-2) (0.0-2.4) ng/mL Troponin I (0.000-0.034) ng/mL Total Protein (6.3-8.2) g/dL Triglycerides (0.00-149.00) mg/dL HDL Cholesterol (40.00-60.00) mg/dL CSF Glucose (40-70) mg/dL CSF Total Protein (12-60) mg/dL 09/11/21 09/11/21 09/11/21 Range/Units 23:19 23:19 23:19 RBC (4.30-5.90) m/uL Hgb (13.0-17.5) gm/dL Hct (39.0-53.0) % Plt Count 121 L (150-450) k/uL Lymphocytes # 0.7 L (1.0-4.8) k/uL APTT (22.0-30.0) sec ABG pH (7.35-7.45) ABG pCO2 (35-45) mmHg ABG pO2 (83-108) mmHg ABG HCO3 (21-25) mmol/L ABG O2 Saturation (94-97) % Sodium 133 L (137-145) mmol/L Potassium 3.0 L (3.5-5.1) mmol/L Carbon Dioxide 17 L (22-30) mmol/L Glucose 190 H (74-99) mg/dL POC Glucose (mg/dL) (75-99) mg/dL Plasma Lactic Acid Rob (0.7-2.0) mmol/L Calcium 7.9 L (8.4-10.2) mg/dL Total Bilirubin 1.4 H (0.2-1.3) mg/dL AST 101 H (17-59) U/L CK-MB (CK-2) 13.5 H (0.0-2.4) ng/mL Troponin I 15.000 H* (0.000-0.034) ng/mL Total Protein 5.8 L (6.3-8.2) g/dL Triglycerides (0.00-149.00) mg/dL HDL Cholesterol (40.00-60.00) mg/dL CSF Glucose (40-70) mg/dL CSF Total Protein (12-60) mg/dL 09/12/21 09/12/21 09/12/21 Range/Units 00:02 01:23 01:32 RBC (4.30-5.90) m/uL Hgb (13.0-17.5) gm/dL Hct (39.0-53.0) % Plt Count (150-450) k/uL Lymphocytes # (1.0-4.8) k/uL APTT (22.0-30.0) sec ABG pH (7.35-7.45) ABG pCO2 (35-45) mmHg ABG pO2 393 H (83-108) mmHg ABG HCO3 (21-25) mmol/L ABG O2 Saturation 100.0 H (94-97) % Sodium (137-145) mmol/L Potassium (3.5-5.1) mmol/L Carbon Dioxide (22-30) mmol/L Glucose (74-99) mg/dL POC Glucose (mg/dL) 178 H 169 H (75-99) mg/dL Plasma Lactic Acid Rob (0.7-2.0) mmol/L Calcium (8.4-10.2) mg/dL Total Bilirubin (0.2-1.3) mg/dL AST (17-59) U/L CK-MB (CK-2) (0.0-2.4) ng/mL Troponin I (0.000-0.034) ng/mL Total Protein (6.3-8.2) g/dL Triglycerides (0.00-149.00) mg/dL HDL Cholesterol (40.00-60.00) mg/dL CSF Glucose (40-70) mg/dL CSF Total Protein (12-60) mg/dL 09/12/21 09/12/21 09/12/21 Range/Units 03:15 05:05 05:05 RBC 4.25 L (4.30-5.90) m/uL Hgb 12.9 L (13.0-17.5) gm/dL Hct 38.4 L (39.0-53.0) % Plt Count (150-450) k/uL Lymphocytes # (1.0-4.8) k/uL APTT 33.2 H (22.0-30.0) sec ABG pH (7.35-7.45) ABG pCO2 (35-45) mmHg ABG pO2 (83-108) mmHg ABG HCO3 (21-25) mmol/L ABG O2 Saturation (94-97) % Sodium 131 L (137-145) mmol/L Potassium 3.3 L (3.5-5.1) mmol/L Carbon Dioxide 19 L (22-30) mmol/L Glucose 190 H (74-99) mg/dL POC Glucose (mg/dL) (75-99) mg/dL Plasma Lactic Acid Rob (0.7-2.0) mmol/L Calcium 7.3 L (8.4-10.2) mg/dL Total Bilirubin (0.2-1.3) mg/dL AST (17-59) U/L CK-MB (CK-2) (0.0-2.4) ng/mL Troponin I (0.000-0.034) ng/mL Total Protein (6.3-8.2) g/dL Triglycerides 541.00 H (0.00-149.00) mg/dL HDL Cholesterol 30.50 L (40.00-60.00) mg/dL CSF Glucose (40-70) mg/dL CSF Total Protein (12-60) mg/dL 09/12/21 09/12/21 Range/Units 05:43 05:49 RBC (4.30-5.90) m/uL Hgb (13.0-17.5) gm/dL Hct (39.0-53.0) % Plt Count (150-450) k/uL Lymphocytes # (1.0-4.8) k/uL APTT (22.0-30.0) sec ABG pH (7.35-7.45) ABG pCO2 33 L (35-45) mmHg ABG pO2 192 H (83-108) mmHg ABG HCO3 20 L (21-25) mmol/L ABG O2 Saturation 99.1 H (94-97) % Sodium (137-145) mmol/L Potassium (3.5-5.1) mmol/L Carbon Dioxide (22-30) mmol/L Glucose (74-99) mg/dL POC Glucose (mg/dL) 207 H (75-99) mg/dL Plasma Lactic Acid Rob (0.7-2.0) mmol/L Calcium (8.4-10.2) mg/dL Total Bilirubin (0.2-1.3) mg/dL AST (17-59) U/L CK-MB (CK-2) (0.0-2.4) ng/mL Troponin I (0.000-0.034) ng/mL Total Protein (6.3-8.2) g/dL Triglycerides (0.00-149.00) mg/dL HDL Cholesterol (40.00-60.00) mg/dL CSF Glucose (40-70) mg/dL CSF Total Protein (12-60) mg/dL Microbiology - Last 24 Hours (Table) 09/12/21 01:00 Sputum Culture - Preliminary Sputum 09/11/21 11:54 CSF Gram Stain - Preliminary Cerebral Spinal Fluid CSF Culture - Preliminary 09/11/21 00:50 Blood Culture - Preliminary Blood No Growth after 24 hours 09/11/21 01:05 Blood Culture - Preliminary Blood No Growth after 24 hours Diabetes panel 09/11/21 09/12/21 Range/Units 23:19 05:05 Sodium 133 L 131 L (137-145) mmol/L Potassium 3.0 L 3.3 L (3.5-5.1) mmol/L Chloride 106 106 (98-107) mmol/L Carbon Dioxide 17 L 19 L (22-30) mmol/L BUN 17 18 (9-20) mg/dL Creatinine 1.08 1.18 (0.66-1.25) mg/dL Glucose 190 H 190 H (74-99) mg/dL Calcium 7.9 L 7.3 L (8.4-10.2) mg/dL AST 101 H (17-59) U/L ALT 46 (4-49) U/L Alkaline Phosphatase 42 (38-126) U/L Total Protein 5.8 L (6.3-8.2) g/dL Albumin 3.6 (3.5-5.0) g/dL Triglycerides 541.00 H (0.00-149.00) mg/dL HDL Cholesterol 30.50 L (40.00-60.00) mg/dL Calcium panel 09/11/21 09/12/21 Range/Units 23:19 05:05 Calcium 7.9 L 7.3 L (8.4-10.2) mg/dL Albumin 3.6 (3.5-5.0) g/dL Pituitary panel 09/11/21 09/12/21 Range/Units 23:19 05:05 Sodium 133 L 131 L (137-145) mmol/L Potassium 3.0 L 3.3 L (3.5-5.1) mmol/L Chloride 106 106 (98-107) mmol/L Carbon Dioxide 17 L 19 L (22-30) mmol/L BUN 17 18 (9-20) mg/dL Creatinine 1.08 1.18 (0.66-1.25) mg/dL Glucose 190 H 190 H (74-99) mg/dL Calcium 7.9 L 7.3 L (8.4-10.2) mg/dL Adrenal panel 09/11/21 09/12/21 Range/Units 23:19 05:05 Sodium 133 L 131 L (137-145) mmol/L Potassium 3.0 L 3.3 L (3.5-5.1) mmol/L Chloride 106 106 (98-107) mmol/L Carbon Dioxide 17 L 19 L (22-30) mmol/L BUN 17 18 (9-20) mg/dL Creatinine 1.08 1.18 (0.66-1.25) mg/dL Glucose 190 H 190 H (74-99) mg/dL Calcium 7.9 L 7.3 L (8.4-10.2) mg/dL Total Bilirubin 1.4 H (0.2-1.3) mg/dL AST 101 H (17-59) U/L ALT 46 (4-49) U/L Alkaline Phosphatase 42 (38-126) U/L Total Protein 5.8 L (6.3-8.2) g/dL Albumin 3.6 (3.5-5.0) g/dL Assessment and Plan Assessment: Possible carotid artery stenosis Encephalopathy Fever Sepsis Plan: All history and imaging is reviewed. Likely this is an asymptomatic carotid artery stenosis although difficult to delineate the severity at this time given the discordance of imaging. Currently no acute intervention is planned. We'll be able to follow-up with a patient as an outpatient should he improve his overall status for further imaging workup and discussion for stroke prevention. Continue supportive care. We will sign off at this time, please let us know if we can be of further assistance
--- NOTE | 2021-09-12 10:24 | P.PN ---
Subjective Progress Note Date: 09/12/21 75-year-old male patient seen in the emergency department because of altered mentation and fever. The patient is unable to volunteer any history. Reviewed the records. Discussed the case with the various consultants. In summary, the patient has been feeling weak, had falls and he has not been feeling well over the past few days. He also reports some cough and generalized weakness. No chest pain. No pleurisy. No hemoptysis. No neck pain. No neck stiffness. No skin rashes. In the ED, the patient was found to have a temperature of 102.8 and he was quite tachycardic. He was confused than he was unable to volunteer any information. Blood work showed a white cell count of 5.8 with a hemoglobin of 14.1 and the sodium level was 133 with a BUN of 16 and a creatinine of 0.8. Initial lactic acid level was 7.3 and the patient was given a total of 2 L of IV fluids in the subsequent lactic acid level came down to 3.9. Total bilirubin was 1.4 with AST of 50 and ALT of 56 and a normal alkaline phosphatase. Troponin was at 0.013 and subsequent level came back at 2.3 consistent with acute non-ST segment elevation myocardial infarction. UA showed 6 RBCs, bacteria was present, however, the total number of WBCs were only 2. The patient +3 protein, +4 glucose and +1 ketones. Note that the patient also had a negative coronary testing. Influenza screen was also negative. Chest x-ray s howed negative abnormalities. CAT scan of the abdomen and pelvis also showed negative abnormalities. There was some subsegmental atelectatic changes in lung bases bilaterally. Alcohol level was negative. Urine drug screen has not been done. Lumbar puncture was treated on this patient and the result is still pending for now. In the ED, the patient was started on IV fluids. The patient is currently on normal saline at the rate of 130s's an hour. The patient was given IV cefepime and IV vancomycin. The patient was also started on IV heparin regarding the acute non-STEMI. The patient's cardiac rhythm was also in A. fib RVR and the patient was started on a Cardizem drip for rate control at 5 mg an hour. Upon further inspection, the patient had a previous left knee surgery probably an arthroplasty. The knee was slightly swollen and there was no tenderness or warmth or any drainage. He also had a healing sacral ulcer with some limited erythema. No evidence of any cellulitis or draining wound in the back area. He is known to have multiple medical problems and comorbidities inc luding previous history of coronary artery disease, previous coronary intervention and stenting back in November 2019 involving the mid RCA and the patient also has hypertension, hypertensive heart disease, hyperlipidemia, diabetes mellitus type 2, diabetic peripheral neuropathy, lumbar spondylosis wi th chronic pain requiring epidural injections and previous ablations, prostate cancer with a previous radiation therapy and the patient has had previous history of MSSA septic arthritis of the left knee. He is known to have also erectile dysfunction and peripheral neuropathy and peripheral vascular disease. On today's evaluation of 09/12/2021, the patient is being seen in intensive care unit. The patient was seen in consultation yesterday in the emergency. The patient was altered, febrile, septic looking, and the lumbar puncture was negative for bacterial meningitis. The patient was covered with broad-spectrum antibiotics and following that the patient was brought into the intensive care unit. During the course of the ICU stay, the patient developed an acute non-ST segment elevation myocardial infarction. The troponin peaked at 15. EKG is still in normal sinus rhythm and his EKG was showing an atrial fibrillation with rapid ventricular response and apparently the patient converted into normal sinus rhythm. Noted the patient was covered with IV heparin at a time of admission. Nevertheless, yesterday, the patient became acutely unresponsive, apparently was noted to be aphasic and flaccid on the right side. A code stroke was initiated. The patient was given a CTA of the head that showed no acute abnormalities. There was no evidence of any acute bleed. This was essentially a negative CT angiogram of the brain. There was some 75% stenosis of the origin of the left internal carotid artery and 30% on the right. The CAT scan showed no evidence of any aneurysms or vascular injuries. At that point, IV heparin was discontinued. The Doppler of the carotids from today showed no evidence of any hemodynamic stenosis of the proximal internal carotid arteries. In any rate, the patient became quite lethargic and unresponsive. To protect his airways, the patient was intubated and placed on a mechanical ventilator. Overnight, he was started on propofol and the dose was gradually increased is currently up to 75 mcg/kg per minute. He briefly required fentanyl and currently is off the fentanyl. He is deeply sedated for now. He is not withdrawing to deep painful stimulation. Pupils are about 2 mm in size, sluggishly reactive to light. No Babinski. No clonus. He is on a mechanical ventilator on assist control mode at the rate of 22, tidal volume of 400, FiO2 of 40% with a PEEP of 5. No significant orotracheal secretions. The chest x- ray from today showing no acute abnormalities. ET tube is in a good location. No airspace disease and there is some minimal infiltration/atelectasis of the left lower lobe. The blood gases from today showed a pH of 7.39 with a pCO2 of 33 and pO2 of 192 and this was on FiO2 of 50%. Rest of the blood work shows a sodium of 131, potassium of 3.3, bicarb of 19, creatinine 1.1, triglyceride was elevated at 541, blood sugars of 207 the white cell count and 6.4 with a hemoglobin of 12.9. This CSF analysis showed some elevation in the protein which is up 216, glucose was also had 116, the white cell count in the CSF was only 3 and the Gram stain was negative. No seizure activity has been noted. No skin rashes. No swelling in the left knee. No open wounds or sores at this point in time. He remains on a combination of cefepime and vancomycin. Cultures are all negative. This morning he is afebrile. His T-max was 102 from at 1 AM. Objective - Vital Signs Vital signs: Vital Signs Temp 97.6 F 09/12/21 08:00 Pulse 74 09/12/21 10:00 Resp 22 09/12/21 10:00 BP 114/62 09/12/21 10:00 Pulse Ox 100 09/12/21 10:00 FiO2 40 09/12/21 08:14 Intake & Output 09/11/21 09/12/21 09/12/21 18:59 06:59 18:59 Intake Total 260 1485.108 871.134 Output Total 2625 525 75 Balance -2365 960.108 796.134 Weight 99.79 kg 107.3 kg Intake: IV 260 1160 609 Sodium Chloride 0.9% 1, 260 260 000 ml @ 130 mls/hr IV . Q7H42M [facility] Rx#:[id number] Sodium Chloride 0.9% 1, 900 600 000 ml @ 150 mls/hr IV . Q6H40M [facility] Rx#:[id number] pressure bag 9 Intake, IV Titration 325.108 262.134 Amount Heparin Sod,Pork in 0.45% 84.122 NaCl 25,000 unit In 0.45 % NaCl 1 250ml.bag @ 18 UNITS/KG/HR 17.962 mls/hr IV .[id number] [facility] Rx#: [id number] Norepinephrine 4 mg In 140.737 75.026 Sodium Chloride 0.9% 250 ml @ 0.05 MCG/KG/MIN 19. 01 mls/hr IV .[id number] [facility] Rx#:[id number] propofoL 1,000 mg In 100.249 187.108 Empty Bag 1 bag @ 5 MCG/ KG/MIN 2.994 mls/hr IV . Q24H [facility] Rx#:[id number] Output: Urine 2625 525 75 Other: Voiding Method Indwelling Catheter Indwelling Catheter Indwelling Catheter ABP, PAP, CO, CI - Last Documented Arterial Blood Pressure 102/49 - Exam General: This is 75-year-old male who appears to be in severely ill. The patient is currently sedated with propofol and he is currently intubated on a mechanical ventilator. Orotracheal and orogastric tube are both in place. The patient seems to be quite successful mechanical ventilator. Head exam was generally normal. There was no scleral icterus or corneal arcus. Mucous membranes were moist. Neck was supple and without jugular venous distension, thyromegaly, or carotid bruits. Carotids were easily palpable bilaterally. There was no adenopathy. The patient does not have any neck stiffness or meningeal signs at this point in time.Supple, no JVP, normal carotid upstroke bilaterally, no lymphadenopathy. Chest: Decreased breath sounds at the bases, few rhonchi, no extremity wheezes, no chest wall tenderness, no intercostal retractions. Heart: First heart sound is normal, second heart sound is normal there is systolic ejection murmur 2/6 left sternal border. Abdomen: Soft, nontender, nondistended, positive bowel sounds, no hepatosplenomegaly Extremities: There is no edema no calf tenderness DP + 1 bilaterally, left knee with large dressing in place. The patient has undergone previous left knee arthroplasty. Left knee is slightly swollen compared to right. Nevertheless, there is no fluid or erythema involving the joint. Upon passive range of motion, no significant pain and is associated Skin: There is a stage II decubitus ulcer in the coccyx area with current wound dressing as per infectious disease. No open wounds or sores. No evidence of any cellulitis. No drainage. Neurologic examination: Patient is intubated, on a mechanical ventilator and he is deeply sedated. Neurologic exam is suboptimal at this point in time. Does not withdraw to any painful stimulation. No Babinski. No clonus. Pupils are equal and reactive around 2-3 mm in size. No facial asymmetry. No neck stiffness. No meningeal signs. No nystagmus. No preferential gaze. - Labs CBC & Chem 7: 09/12/21 05:05 09/12/21 05:05 Labs: Abnormal Lab Results - Last 24 Hours (Table) 09/11/21 09/11/21 09/11/21 Range/Units 11:54 17:49 19:48 RBC (4.30-5.90) m/uL Hgb (13.0-17.5) gm/dL Hct (39.0-53.0) % Plt Count (150-450) k/uL Lymphocytes # (1.0-4.8) k/uL APTT (22.0-30.0) sec ABG pH (7.35-7.45) ABG pCO2 (35-45) mmHg ABG pO2 (83-108) mmHg ABG HCO3 (21-25) mmol/L ABG O2 Saturation (94-97) % Sodium (137-145) mmol/L Potassium (3.5-5.1) mmol/L Carbon Dioxide (22-30) mmol/L Glucose (74-99) mg/dL POC Glucose (mg/dL) 167 H (75-99) mg/dL Plasma Lactic Acid Rob (0.7-2.0) mmol/L Calcium (8.4-10.2) mg/dL Total Bilirubin (0.2-1.3) mg/dL AST (17-59) U/L CK-MB (CK-2) (0.0-2.4) ng/mL Troponin I 14.000 H* (0.000-0.034) ng/mL Total Protein (6.3-8.2) g/dL Triglycerides (0.00-149.00) mg/dL HDL Cholesterol (40.00-60.00) mg/dL CSF Glucose 116 H (40-70) mg/dL CSF Total Protein 116 H (12-60) mg/dL 09/11/21 09/11/21 09/11/21 Range/Units 19:48 19:48 22:50 RBC (4.30-5.90) m/uL Hgb (13.0-17.5) gm/dL Hct (39.0-53.0) % Plt Count (150-450) k/uL Lymphocytes # (1.0-4.8) k/uL APTT >200.0 H* (22.0-30.0) sec ABG pH 7.54 H (7.35-7.45) ABG pCO2 23 L (35-45) mmHg ABG pO2 62 L (83-108) mmHg ABG HCO3 20 L (21-25) mmol/L ABG O2 Saturation (94-97) % Sodium (137-145) mmol/L Potassium (3.5-5.1) mmol/L Carbon Dioxide (22-30) mmol/L Glucose (74-99) mg/dL POC Glucose (mg/dL) (75-99) mg/dL Plasma Lactic Acid Rob 2.9 H* (0.7-2.0) mmol/L Calcium (8.4-10.2) mg/dL Total Bilirubin (0.2-1.3) mg/dL AST (17-59) U/L CK-MB (CK-2) (0.0-2.4) ng/mL Troponin I (0.000-0.034) ng/mL Total Protein (6.3-8.2) g/dL Triglycerides (0.00-149.00) mg/dL HDL Cholesterol (40.00-60.00) mg/dL CSF Glucose (40-70) mg/dL CSF Total Protein (12-60) mg/dL 09/11/21 09/11/21 09/11/21 Range/Units 23:19 23:19 23:19 RBC (4.30-5.90) m/uL Hgb (13.0-17.5) gm/dL Hct (39.0-53.0) % Plt Count 121 L (150-450) k/uL Lymphocytes # 0.7 L (1.0-4.8) k/uL APTT (22.0-30.0) sec ABG pH (7.35-7.45) ABG pCO2 (35-45) mmHg ABG pO2 (83-108) mmHg ABG HCO3 (21-25) mmol/L ABG O2 Saturation (94-97) % Sodium 133 L (137-145) mmol/L Potassium 3.0 L (3.5-5.1) mmol/L Carbon Dioxide 17 L (22-30) mmol/L Glucose 190 H (74-99) mg/dL POC Glucose (mg/dL) (75-99) mg/dL Plasma Lactic Acid Rob (0.7-2.0) mmol/L Calcium 7.9 L (8.4-10.2) mg/dL Total Bilirubin 1.4 H (0.2-1.3) mg/dL AST 101 H (17-59) U/L CK-MB (CK-2) 13.5 H (0.0-2.4) ng/mL Troponin I 15.000 H* (0.000-0.034) ng/mL Total Protein 5.8 L (6.3-8.2) g/dL Triglycerides (0.00-149.00) mg/dL HDL Cholesterol (40.00-60.00) mg/dL CSF Glucose (40-70) mg/dL CSF Total Protein (12-60) mg/dL 09/12/21 09/12/21 09/12/21 Range/Units 00:02 01:23 01:32 RBC (4.30-5.90) m/uL Hgb (13.0-17.5) gm/dL Hct (39.0-53.0) % Plt Count (150-450) k/uL Lymphocytes # (1.0-4.8) k/uL APTT (22.0-30.0) sec ABG pH (7.35-7.45) ABG pCO2 (35-45) mmHg ABG pO2 393 H (83-108) mmHg ABG HCO3 (21-25) mmol/L ABG O2 Saturation 100.0 H (94-97) % Sodium (137-145) mmol/L Potassium (3.5-5.1) mmol/L Carbon Dioxide (22-30) mmol/L Glucose (74-99) mg/dL POC Glucose (mg/dL) 178 H 169 H (75-99) mg/dL Plasma Lactic Acid Rob (0.7-2.0) mmol/L Calcium (8.4-10.2) mg/dL Total Bilirubin (0.2-1.3) mg/dL AST (17-59) U/L CK-MB (CK-2) (0.0-2.4) ng/mL Troponin I (0.000-0.034) ng/mL Total Protein (6.3-8.2) g/dL Triglycerides (0.00-149.00) mg/dL HDL Cholesterol (40.00-60.00) mg/dL CSF Glucose (40-70) mg/dL CSF Total Protein (12-60) mg/dL 09/12/21 09/12/21 09/12/21 Range/Units 03:15 05:05 05:05 RBC 4.25 L (4.30-5.90) m/uL Hgb 12.9 L (13.0-17.5) gm/dL Hct 38.4 L (39.0-53.0) % Plt Count (150-450) k/uL Lymphocytes # (1.0-4.8) k/uL APTT 33.2 H (22.0-30.0) sec ABG pH (7.35-7.45) ABG pCO2 (35-45) mmHg ABG pO2 (83-108) mmHg ABG HCO3 (21-25) mmol/L ABG O2 Saturation (94-97) % Sodium 131 L (137-145) mmol/L Potassium 3.3 L (3.5-5.1) mmol/L Carbon Dioxide 19 L (22-30) mmol/L Glucose 190 H (74-99) mg/dL POC Glucose (mg/dL) (75-99) mg/dL Plasma Lactic Acid Rob (0.7-2.0) mmol/L Calcium 7.3 L (8.4-10.2) mg/dL Total Bilirubin (0.2-1.3) mg/dL AST (17-59) U/L CK-MB (CK-2) (0.0-2.4) ng/mL Troponin I (0.000-0.034) ng/mL Total Protein (6.3-8.2) g/dL Triglycerides 541.00 H (0.00-149.00) mg/dL HDL Cholesterol 30.50 L (40.00-60.00) mg/dL CSF Glucose (40-70) mg/dL CSF Total Protein (12-60) mg/dL 09/12/21 09/12/21 Range/Units 05:43 05:49 RBC (4.30-5.90) m/uL Hgb (13.0-17.5) gm/dL Hct (39.0-53.0) % Plt Count (150-450) k/uL Lymphocytes # (1.0-4.8) k/uL APTT (22.0-30.0) sec ABG pH (7.35-7.45) ABG pCO2 33 L (35-45) mmHg ABG pO2 192 H (83-108) mmHg ABG HCO3 20 L (21-25) mmol/L ABG O2 Saturation 99.1 H (94-97) % Sodium (137-145) mmol/L Potassium (3.5-5.1) mmol/L Carbon Dioxide (22-30) mmol/L Glucose (74-99) mg/dL POC Glucose (mg/dL) 207 H (75-99) mg/dL Plasma Lactic Acid Rob (0.7-2.0) mmol/L Calcium (8.4-10.2) mg/dL Total Bilirubin (0.2-1.3) mg/dL AST (17-59) U/L CK-MB (CK-2) (0.0-2.4) ng/mL Troponin I (0.000-0.034) ng/mL Total Protein (6.3-8.2) g/dL Triglycerides (0.00-149.00) mg/dL HDL Cholesterol (40.00-60.00) mg/dL CSF Glucose (40-70) mg/dL CSF Total Protein (12-60) mg/dL Microbiology - Last 24 Hours (Table) 09/12/21 01:00 Sputum Culture - Preliminary Sputum 09/11/21 11:54 CSF Gram Stain - Preliminary Cerebral Spinal Fluid CSF Culture - Preliminary 09/11/21 00:50 Blood Culture - Preliminary Blood No Growth after 24 hours 09/11/21 01:05 Blood Culture - Preliminary Blood No Growth after 24 hours Assessment and Plan Plan: Altered mental status on that investigation. CAT scan of the brain was negative. CT angiogram done yesterday was negative. Meningeal signs are absent in the patient's CSF is showing elevated protein. Rule out viral encephalitis. Sepsis, currently under investigation. The patient came in with altered mentation and fever and lactic acidosis. Lumbar puncture was performed in the emergency department and results are still pending for now. Urine and blood cultures of been sent and the patient is covered with empiric antibiotics with cefepime and vancomycin. Patient was also given IV fluids. Lactic acid levels are improving. Meningitis was suspected and the patient was given a lumbar puncture. He still pending for now. No meningeal signs. Consider underlying encephalitis. COVID 19 testing is been negative. Influenza A and B were also negative. The exact source of the sepsis is not clear. Doubt septic joint. Doubt meningitis. No evidence of pneumonia. All of the cultures are negative thus far and the patient is on a combination of cefepime and vancomycin Ventilator-dependent respiratory failure, the patient did not have any significant hypoxemia or hypercapnia. The patient was intubated to protect his airway and currently is on a mechanical ventilator. Acute atrial fibrillation with rapid ventricular response, currently in sinus rhythm and the Cardizem drip stopped and the patient is currently on amiodarone at 0.5. Acute lactic acidosis, improving acute non-ST segment elevation myocardial infarction and a troponin peaked at 15 Coronary artery disease with previous coronary stenting involving the RCA back in July 2020. 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 Plan Continue vent support Monitor fever pattern normal saline at the rate of 150 mL an hour Add acyclovir for possibility of HSV encephalitis EEG Consulted neurology and infectious disease Keep same antibiotic coverage Cardizem has been discontinued Continue IV amiodarone Echocardiogram is pending for now IV fluids at the rate of 150 mL an hour This is a triple-lumen catheter Initiate enteral feeding for nutritional support Put the patient on Lovenox 40 mg subcu for DVT prophylaxis IV Protonix Condition is critical we will continue to follow make further recommendations based on his progress. This is a critically care evaluation that was done and more than 30 minutes. Time with Patient: Greater than 30
--- NOTE | 2021-09-12 11:05 | P.CRDCN ---
History of Present Illness Consult date: 09/12/21 History of present illness: This is a 76-year-old gentleman was brought to the hospital with mental status changes and fall. Apparently patient was not feeling well for the last several days and was complaining of generalized weakness. He is currently intubated and most of the information is gathered from chart and vocational rehab consultant notes and also from the nurses. Patient has history of septic arthritis coronary artery disease, hypertension, hypercholesterolemia with previous intervention of the right coronary artery. Patient was in atrial fibrillation on admission and was initially treated with IV Cardizem and subsequent change to IV amiodarone. His converted to sinus rhythm. Patient is currently sedated. Patient apparently not withdrawing with painful stimuli before the sedation. He is a troponin values went up suggestive of non-STEMI. EKG did not reveal any acute ST-T abnormalities. Echocardiogram is requested. Is being followed by neurology, infectious disease and also surgical team. Apparently patient also has carotid disease. From Cardec standpoint, patient is not a candidate for any intervention at this time. We will get an echo Cardec gram to assess LV function. Continue with IV amiodarone. Patient was treated with heparin but was discontinued because of high PTT. That needs to be resumed once feasible. Prognosis is guarded Review of Systems Not obtained Past Medical History Past Medical History: Atrial Fibrillation, Coronary Artery Disease (CAD), Cancer, Chest Pain / Angina, Diabetes Mellitus, GERD/Reflux, Hyperlipidemia, Hypertension, Osteoarthritis (OA), Prostate Disorder Additional Past Medical History / Comment(s): 5 Herniated discs in neck causing headaches & numbness in arm and right lower back and pain and right leg pain. Hx 4 fx ribs, current Prostate Cancer- last radiation tx Mar 25 had total of 44 tx. occ constipation, Last Myocardial Infarction Date:: UNKOWN History of Any Multi-Drug Resistant Organisms: VRE Date of last positivie culture/infection: 09/18/20 MDRO Source:: Wound Past Surgical History: Adenoidectomy, Heart Catheterization, Heart Catheterization With Stent, Joint Replacement, Orthopedic Surgery, Tonsillectomy Additional Past Surgical History / Comment(s): PROSTATE BX., LT. KNEE ARTHROSCOPY X 2, CERVICAL FUSIONS, COLONOSCOPY, ÁNGEL. CATARTACTS.Pain Procedures , rt radio frequency procedures. , total 3 heart stents, hemorrhoidectomy,heart cath August 2017-lt knee replacement. Stent replacement Past Anesthesia/Blood Transfusion Reactions: No Reported Reaction Additional Past Anesthesia/Blood Transfusion Reaction / Comment(s): doesn't like enclosed tight spaces Date of Last Stent Placement:: 04/24/17 Past Psychological History: No Psychological Hx Reported Smoking Status: Former smoker Past Alcohol Use History: None Reported Past Drug Use History: None Reported - Past Family History Father Additional Family Medical History / Comment(s): Father at age 49 from coronary artery disease. Brother(s) Additional Family Medical History / Comment(s): Patient has one brother with history of smoking and no other major medical problems. Patient does not have any sisters. Daughter(s) Additional Family Medical History / Comment(s): Patient has one daughter with history of muscular dystrophy and of pneumonia. Son(s) Family Medical History: No Reported History Additional Family Medical History / Comment(s): Patient has one son with no major medical problems. Mother Family Medical History: Cancer Additional Family Medical History / Comment(s): Mother at age 81 from uterine cancer with metastatic disease. Medications and Allergies Home Medications Medication Instructions Recorded Confirmed Type Atorvastatin [Lipitor] 80 mg PO HS 09/01/20 09/11/21 History Metoprolol Tartrate [Lopressor] 50 mg PO BID 09/17/20 09/11/21 History sitaGLIPtin PHOS/metFORMIN HCL 1 tab PO DAILY 02/23/21 09/11/21 History [Janumet Xr 100-1,000 mg Tablet] Dapagliflozin Propanediol [Farxiga] 5 mg PO DAILY 05/29/21 09/11/21 History Baclofen [Lioresal] 10 mg PO HS #30 tab 06/05/21 09/11/21 Rx Aspirin EC [Ecotrin Low Dose] 81 mg PO DAILY 09/11/21 09/11/21 History HYDROcodone/APAP 10-325MG [[place] 1 tab PO Q8H PRN 09/11/21 09/11/21 History 10-325] Allergies Allergy/AdvReac Type Severity Reaction Status Date / Time No Known Allergies Allergy Verified 09/11/21 10:05 Physical Exam Vitals: Vital Signs Temp Pulse Resp BP Pulse Ox FiO2 09/12/21 10:00 74 22 114/62 100 09/12/21 09:00 76 17 113/65 99 09/12/21 08:14 40 09/12/21 08:00 97.6 F 80 20 116/68 99 40 09/12/21 07:00 74 22 130/74 99 40 09/12/21 06:00 79 22 89/56 99 40 09/12/21 05:59 40 09/12/21 05:00 77 22 73/35 99 40 09/12/21 04:00 98.1 F 101 H 22 95/63 100 50 09/12/21 03:30 50 09/12/21 03:00 99 22 71/37 99 50 09/12/21 02:00 114 H 25 H 147/68 97 100 09/12/21 01:39 50 09/12/21 01:10 100 09/12/21 01:00 102 F H 118 H 22 134/78 96 100 09/12/21 00:03 90 21 122/67 100 09/12/21 00:00 100.0 F H 100 15 110/78 99 09/11/21 23:00 133 H 14 118/70 99 09/11/21 22:59 97 09/11/21 22:00 131 H 27 H 130/70 97 09/11/21 21:00 131 H 29 H 131/73 95 09/11/21 20:00 99.1 F 110 H 24 137/73 95 09/11/21 19:00 112 H 35 H 132/91 94 L 09/11/21 18:30 101 H 25 H 134/96 94 L 09/11/21 18:00 97.0 F L 105 H 23 131/96 98 09/11/21 17:45 97.9 F 119 H 20 131/79 94 L 09/11/21 16:42 100.8 F H 108 H 20 145/75 94 L Intake and Output 09/11/21 09/12/21 09/12/21 22:59 06:59 14:59 Intake Total 463.535 3683.986 871.134 Output Total 1010 340 75 Balance -405.878 800.986 796.134 Intake: IV 520 900 609 Sodium Chloride 0.9% 1, 520 000 ml @ 130 mls/hr IV . Q7H42M STA Rx#:[id number] Sodium Chloride 0.9% 1, 900 600 000 ml @ 150 mls/hr IV . Q6H40M LAURA Rx#:[id number] pressure bag 9 Intake, IV Titration 84.122 240.986 262.134 Amount Heparin Sod,Pork in 0.45% 84.122 NaCl 25,000 unit In 0.45 % NaCl 1 250ml.bag @ 18 UNITS/KG/HR 17.962 mls/hr IV .[id number] LAURA Rx#: [id number] Norepinephrine 4 mg In 140.737 75.026 Sodium Chloride 0.9% 250 ml @ 0.05 MCG/KG/MIN 19. 01 mls/hr IV .[id number] LAURA Rx#:[id number] propofoL 1,000 mg In 100.249 187.108 Empty Bag 1 bag @ 5 MCG/ KG/MIN 2.994 mls/hr IV . Q24H LAURA Rx#:[id number] Output: Urine 1010 340 75 Other: Voiding Method Indwelling Catheter Indwelling Catheter Indwelling Catheter Weight 107.3 kg ABP, PAP, CO, CI - Last 8 Hours Arterial Blood Pressure 102/49 Arterial Blood Pressure 117/56 Arterial Blood Pressure 88/49 Arterial Blood Pressure 97/48 Arterial Blood Pressure 128/58 Arterial Blood Pressure 92/52 Arterial Blood Pressure 76/47 GENERAL EXAM: Patient is intubated and sedated HEENT: Normocephalic. NECK: No masses, no nuchal rigidity. CHEST: No chest wall deformity. LUNGS: Diminished air exchange HEART: S1 and S2 normal with no audible mumurs or gallops. Regular rhythm, femorals equal on both sides.. ABDOMEN: Soft SKIN: No rashes CENTRAL NERVOUS SYSTEM: Sedated EXTREMITIES: No cyanosis, clubbing or edema. Results 09/12/21 05:05 09/12/21 05:05 Cardiac Enzymes 09/11/21 09/11/21 09/11/21 Range/Units 19:48 23:19 23:19 AST 101 H (17-59) U/L CK-MB (CK-2) 13.5 H (0.0-2.4) ng/mL Troponin I 14.000 H* 15.000 H* (0.000-0.034) ng/mL Coagulation 09/11/21 09/12/21 Range/Units 19:48 03:15 APTT >200.0 H* 33.2 H (22.0-30.0) sec Lipids 09/12/21 Range/Units 05:05 Triglycerides 541.00 H (0.00-149.00) mg/dL Cholesterol 131.00 (0.00-200.00) mg/dL HDL Cholesterol 30.50 L (40.00-60.00) mg/dL Cholesterol/HDL Ratio 4.30 Ratio CBC 09/11/21 09/12/21 Range/Units 23:19 05:05 WBC 4.8 6.4 (3.8-10.6) k/uL RBC 4.63 4.25 L (4.30-5.90) m/uL Hgb 13.6 12.9 L (13.0-17.5) gm/dL Hct 41.6 38.4 L (39.0-53.0) % Plt Count 121 L 150 (150-450) k/uL Comprehensive Metabolic Panel 09/11/21 09/12/21 Range/Units 23:19 05:05 Sodium 133 L 131 L (137-145) mmol/L Potassium 3.0 L 3.3 L (3.5-5.1) mmol/L Chloride 106 106 (98-107) mmol/L Carbon Dioxide 17 L 19 L (22-30) mmol/L BUN 17 18 (9-20) mg/dL Creatinine 1.08 1.18 (0.66-1.25) mg/dL Glucose 190 H 190 H (74-99) mg/dL Calcium 7.9 L 7.3 L (8.4-10.2) mg/dL AST 101 H (17-59) U/L ALT 46 (4-49) U/L Alkaline Phosphatase 42 (38-126) U/L Total Protein 5.8 L (6.3-8.2) g/dL Albumin 3.6 (3.5-5.0) g/dL Current Medications Generic Name Dose Route Start Last Admin Trade Name Freq PRN Reason Stop Dose Admin Aspirin 325 mg 09/12/21 09:00 09/12/21 08:02 Aspirin 325 Mg Tab PO 325 mg DAILY LAURA Administration Chlorhexidine Gluconate 15 ml 09/12/21 01:15 09/12/21 08:04 Chlorhexidine Gluconate 15 Ml Cup MUCOUS MEM 15 ml BID LAURA Administration Cefepime HCl 2 gm/ Sodium 100 mls @ 25 mls/hr 05/26/22 16:00 09/12/21 08:02 Chloride IVPB 25 mls/hr Q8HR LAURA Administration Protocol Amiodarone HCl 450 mg/ 250 mls @ 16.667 mls/hr 09/12/21 04:30 09/12/21 03:54 Dextrose/Water IV 09/12/21 22:29 0.5 mg/min .Q15H LAURA 16.667 mls/hr Administration Protocol 0.5 MG/MIN Acetaminophen 1,000 mg/ IV 100 mls @ 400 mls/hr 09/12/21 00:00 Solution IVPB 09/13/21 00:01 Q6HR PRN Fever Sodium Chloride 1,000 mls @ 150 mls/hr 09/11/21 23:15 09/12/21 05:37 Saline 0.9% IV 150 mls/hr .Q6H40M LAURA Administration Propofol 1,000 mg/ IV Solution 100 mls @ 2.994 mls/hr 09/12/21 01:15 09/12/21 09:18 IV 75 mcg/kg/min .Q24H LAURA 44.906 mls/hr Administration Protocol 5 MCG/KG/MIN Norepinephrine Bitartrate 4 mg 254 mls @ 19.01 mls/hr 09/12/21 02:30 09/12/21 07:51 / Sodium Chloride IV 0.16 mcg/kg/min .[id number] LAURA 60.832 mls/hr Administration Protocol 0.05 MCG/KG/MIN Fentanyl Citrate 1,000 mcg/ 100 mls @ 4.99 mls/hr 09/12/21 04:00 09/12/21 04:07 Sodium Chloride IV 0.5 mcg/kg/hr .Q20H3M LAURA 4.99 mls/hr Administration Protocol 0.5 MCG/KG/HR Vancomycin HCl 1,500 mg/ 250 mls @ 125 mls/hr 09/12/21 14:00 Sodium Chloride IVPB Q16H LAURA Acyclovir Sodium 900 mg/ 268 mls @ 268 mls/hr 09/12/21 11:00 Sodium Chloride IVPB Q8HR LAURA Protocol Insulin Aspart 0 unit 09/11/21 18:00 09/12/21 05:56 Insulin Aspart (Novolog) 100 Unit/Ml Vial SQ 3 unit Q6HR LAURA Administration Protocol Metoprolol Tartrate 25 mg 09/11/21 21:30 09/12/21 08:11 Metoprolol Tartrate 25 Mg Tab PO Not Given BID [facility] Miscellaneous Information 1 each 09/12/21 01:09 Potassium Replacement Protocol 1 Each [facility] MISCELLANE DAILY PRN Per Protocol Protocol Miscellaneous Information 1 each 09/12/21 02:50 Potassium Replacement Protocol 1 Each [facility] MISCELLANE DAILY PRN Per Protocol Protocol Miscellaneous Information 1 each 09/12/21 06:32 Potassium Replacement Protocol 1 Each [facility] MISCELLANE DAILY PRN Per Protocol Protocol Miscellaneous Information 1 each 09/13/21 21:00 Vancomycin Trough Due 1 Each [facility] MISCELLANE 09/13/21 21:01 ONCE ONE Naloxone HCl 0.2 mg 09/11/21 18:08 Naloxone 0.4 Mg/Ml 1 Ml Vial IV Q2M PRN Opioid Reversal Nitroglycerin 0.4 mg 09/11/21 06:46 Nitroglycerin Sl Tabs 0.4 Mg Tab SUBLINGUAL Q5M PRN Chest Pain Pantoprazole Sodium 40 mg 09/11/21 14:00 09/12/21 08:02 Pantoprazole 40 Mg/10 Ml Vial IVP 40 mg DAILY [facility] Administration Intake and Output 09/11/21 09/12/21 09/12/21 22:59 06:59 14:59 Intake Total 427.593 2850.986 871.134 Output Total 1010 340 75 Balance -405.878 800.986 796.134 Intake: IV 520 900 609 Sodium Chloride 0.9% 1, 520 000 ml @ 130 mls/hr IV . Q7H42M STA Rx#:[id number] Sodium Chloride 0.9% 1, 900 600 000 ml @ 150 mls/hr IV . Q6H40M LAURA Rx#:[id number] pressure bag 9 Intake, IV Titration 84.122 240.986 262.134 Amount Heparin Sod,Pork in 0.45% 84.122 NaCl 25,000 unit In 0.45 % NaCl 1 250ml.bag @ 18 UNITS/KG/HR 17.962 mls/hr IV .[id number] LAURA Rx#: [id number] Norepinephrine 4 mg In 140.737 75.026 Sodium Chloride 0.9% 250 ml @ 0.05 MCG/KG/MIN 19. 01 mls/hr IV .[id number] LAURA Rx#:[id number] propofoL 1,000 mg In 100.249 187.108 Empty Bag 1 bag @ 5 MCG/ KG/MIN 2.994 mls/hr IV . Q24H LAURA Rx#:[id number] Output: Urine 1010 340 75 Other: Voiding Method Indwelling Catheter Indwelling Catheter Indwelling Catheter Weight 107.3 kg 09/12/21 05:05 09/12/21 05:05 EKG Interpretations (text) Initial EKG showed atrial fibrillation. No acute ST-T changes Assessment and Plan (1) Acute respiratory failure Current Visit: Yes Status: Acute Code(s): J96.00 - ACUTE RESPIRATORY FAILURE, UNSP W HYPOXIA OR HYPERCAPNIA SNOMED Code(s): 09348307 (2) Atrial fibrillation with RVR Current Visit: Yes Status: Acute Code(s): I48.91 - UNSPECIFIED ATRIAL FIBRILLATION SNOMED Code(s): 537450814184797 (3) Decubitus ulcer Current Visit: Yes Status: Acute Code(s): L89.90 - PRESSURE ULCER OF UNSPECIFIED SITE, UNSPECIFIED STAGE SNOMED Code(s): 3660730061 (4) Lactic acidosis Current Visit: Yes Status: Acute Code(s): E87.2 - ACIDOSIS SNOMED Code(s): 79574175 (5) Sepsis Current Visit: Yes Status: Acute Code(s): A41.9 - SEPSIS, UNSPECIFIED ORGANISM SNOMED Code(s): 96305894 (6) CAD (coronary artery disease) Current Visit: No Status: Acute Code(s): I25.10 - ATHSCL HEART DISEASE OF [place] CORONARY ARTERY W/O ANG PCTRS SNOMED Code(s): 10216280 Plan: From cardiac standpoint, continue amiodarone and anticoagulation. Beta ted when patient is able to tolerate. Echocardiogram. Not a candidate for acute intervention at this time. Prognosis is guarded.
--- NOTE | 2021-09-12 11:12 | P.PCN ---
Date of Procedure: 09/12/21 Preoperative Diagnosis: Acute respiratory failure Postoperative Diagnosis: Sepsis, acute respiratory failure Procedure(s) Performed: Triple-lumen catheter insertion Anesthesia: local Surgeon: Lester Colon Estimated Blood Loss (ml): 0 Pathology: none sent Condition: critical Disposition: ICU Operative Findings: Indication: Hemodynamic monitoring/Intravenous access. A time-out was completed verifying correct patient, procedure, site, positioning, and implant(s) or special equipment if applicable. The patient was placed in a dependent position appropriate for central line placement based on the vein to be cannulated. The patients left neck was prepped and draped in sterile fashion. 1% Lidocaine was used to anesthetize the surrounding skin area. A triple lumen 9F Cordis catheter was introduced into the internal jugular vein using Seldinger technique. The catheter was threaded smoothly over the guide wire and appropriate blood return was obtained. Each lumen of the catheter was evacuated of air and flushed with sterile saline. The catheter was then sutured in place to the skin and a sterile dressing applied. Perfusion to the extremity distal to the point of catheter insertion was checked and found to be adequate. The patient tolerated the procedure well and there were no complications.
[2021-09-12 11:34] LABS: Glucose,Whole Blood 186 mg/dL (75-99)
--- NOTE | 2021-09-12 11:53 | XR ---
EXAMINATION TYPE: XR chest 1V portable DATE OF EXAM: 09/12/2021 COMPARISON: Chest x-ray 09/12/2021 HISTORY: Central line placement TECHNIQUE: Single frontal view of the chest is obtained. FINDINGS: There is been interval placement of a left jugular central venous catheter, distal tip is at the level of the cavoatrial junction. There is no evident pneumothorax or other significant interv al change. IMPRESSION: No evident complication status post central venous catheter placement.
[2021-09-12] MEDS: ACYCLOVIR SODIUM 900 MG in SODIUM CHLORIDE 0.9% 250 ML IVPB SCH ×2 (12:09→17:45)
[2021-09-12] MEDS ORDERED: ENOXAPARIN 40 MG/0.4 ML SYRINGE SQ SCH (12:15)
--- NOTE | 2021-09-12 12:26 | P.PN ---
Subjective Progress Note Date: 09/12/21 Patient was intubated yesterday to protect his airway. Late last night, patient nurse informed that she felt patient was neglecting left side. I notified her to get stat CT head and CTA head and neck and if any occlusion to speak with stroke team. Currently the patient is intubated on ventilator and is on Sedation. Is on IV Propofol 75mcg/kg/min and on IV Fentanyl 0.5mcg/kg/hour Patient was on IV heparin drip overnight. Spoke with patient daughter who is at bedside and stated patient has been doing well until Wednesday in which he complained of cough. CT head was performed and it is reported as cerebral atrophy but there is noticeable more atrophy in the frontal lobes. No acute intracranial ab normality. Limited exam. No change compared to exam earlier today. I personally reviewed the CT of the head and it was difficult to assess the CT because of motion artifact. Regarding the bilateral frontal atrophy more than a global atrophy was hard to assess again for because of limitation. CT angiography of the head is reported as negative. While CT angiography of the neck was reported as shows stenosis above the origin of both internal carotid arteries and in the body report is reported that the patient has 75% stenosis in the left ICA and 30% stenosis in the right ICA. CSF: clear, colorless, 3 rbc, 3 total nucleated cells, glucose 116, total protein 116. CSF gram stain is no organism. Blood culture is no organism seen in 24 hours. Objective - Vital Signs Vital signs: Vital Signs Temp 97.6 F 09/12/21 08:00 Pulse 74 09/12/21 10:00 Resp 22 09/12/21 10:00 BP 114/62 09/12/21 10:00 Pulse Ox 100 09/12/21 10:00 FiO2 40 09/12/21 08:14 Intake & Output 09/11/21 09/12/21 09/12/21 18:59 06:59 18:59 Intake Total 260 8865.290 9621.978 Output Total 2625 525 75 Balance -2365 403.391 5771.978 Weight 99.79 kg 107.3 kg 107.3 kg Intake: IV 260 1160 609 Sodium Chloride 0.9% 1, 260 260 000 ml @ 130 mls/hr IV . Q7H42M STA Rx#:[id number] Sodium Chloride 0.9% 1, 900 600 000 ml @ 150 mls/hr IV . Q6H40M [facility] Rx#:[id number] pressure bag 9 Intake, IV Titration 325.108 583.978 Amount Heparin Sod,Pork in 0.45% 84.122 NaCl 25,000 unit In 0.45 % NaCl 1 250ml.bag @ 18 UNITS/KG/HR 17.962 mls/hr IV .[id number] [facility] Rx#: [id number] Norepinephrine 4 mg In 140.737 298.077 Sodium Chloride 0.9% 250 ml @ 0.05 MCG/KG/MIN 19. 01 mls/hr IV .[id number] [facility] Rx#:[id number] propofoL 1,000 mg In 100.249 285.901 Empty Bag 1 bag @ 5 MCG/ KG/MIN 2.994 mls/hr IV . Q24H [facility] Rx#:[id number] Output: Urine 2625 525 75 Other: Voiding Method Indwelling Catheter Indwelling Catheter Indwelling Catheter ABP, PAP, CO, CI - Last Documented Arterial Blood Pressure 102/49 - Exam GENERAL: The patient is lying and does not appear in acute distress. HENT: Supple neck. Respiratory: Intubated on ventilator. NEUROLOGICAL: IV Propofol 75mcg/kg/min and on IV Fentanyl 0.5mcg/kg/hour Limited Higher mental function: The is comatose. Not responding or following commands. Cranial nerves: I had to manually open eyes. Primary gaze is midline. Pinpoint pupils and equal. No facial weakness. Is breathing over vent. Motor: The strength is could not assess. No spontaneous movement noted. SOME OF THE WORK-UP: Tmax of 102.8F yesterday. White blood cell is 5.8 thousand. Initial serum glucose is 207, ALT of 56, plasma S Evonne 7.3, troponin is trending up initially is 0.013 and currently is 2.370. The most current up as well as facet pain is trending down is 3.9. Ammonia level <9. Cox virus patient was not detected. Influenza A/B PCR was not detected Serum alcohol was less than 10. CT head was performed and it is reported as cerebral atrophy but there is noticeable more atrophy in the frontal lobes. No acute intracranial abnormality. Limited exam. No change compared to exam earlier today. I personally reviewed the CT of the head and it was difficult to assess the CT because of motion artifact. Regarding the bilateral frontal atrophy more than a global atrophy was hard to assess again for because of limitation. CT angiography of the head is reported as negative. While CT angiography of the neck was reported as shows stenosis above the origin of both internal carotid arteries and in the body report is reported that the patient has 75% stenosis in the left ICA and 30% stenosis in the right ICA. CSF: clear, colorless, 3 rbc, 3 total nucleated cells, glucose 116, total protein 116. CSF gram stain is no organism. Blood culture is no organism seen in 24 hours. - Labs CBC & Chem 7: 09/12/21 05:09/12/21 13:20 Labs: Abnormal Lab Results - Last 24 Hours (Table) 09/11/21 09/11/21 09/11/21 Range/Units 11:54 17:49 19:48 RBC (4.30-5.90) m/uL Hgb (13.0-17.5) gm/dL Hct (39.0-53.0) % Plt Count (150-450) k/uL Lymphocytes # (1.0-4.8) k/uL APTT (22.0-30.0) sec ABG pH (7.35-7.45) ABG pCO2 (35-45) mmHg ABG pO2 (83-108) mmHg ABG HCO3 (21-25) mmol/L ABG O2 Saturation (94-97) % Sodium (137-145) mmol/L Potassium (3.5-5.1) mmol/L Carbon Dioxide (22-30) mmol/L Glucose (74-99) mg/dL POC Glucose (mg/dL) 167 H (75-99) mg/dL Plasma Lactic Acid Rob (0.7-2.0) mmol/L Calcium (8.4-10.2) mg/dL Total Bilirubin (0.2-1.3) mg/dL AST (17-59) U/L CK-MB (CK-2) (0.0-2.4) ng/mL Troponin I 14.000 H* (0.000-0.034) ng/mL Total Protein (6.3-8.2) g/dL Triglycerides (0.00-149.00) mg/dL HDL Cholesterol (40.00-60.00) mg/dL CSF Glucose 116 H (40-70) mg/dL CSF Total Protein 116 H (12-60) mg/dL 09/11/21 09/11/21 09/11/21 Range/Units 19:48 19:48 22:50 RBC (4.30-5.90) m/uL Hgb (13.0-17.5) gm/dL Hct (39.0-53.0) % Plt Count (150-450) k/uL Lymphocytes # (1.0-4.8) k/uL APTT >200.0 H* (22.0-30.0) sec ABG pH 7.54 H (7.35-7.45) ABG pCO2 23 L (35-45) mmHg ABG pO2 62 L (83-108) mmHg ABG HCO3 20 L (21-25) mmol/L ABG O2 Saturation (94-97) % Sodium (137-145) mmol/L Potassium (3.5-5.1) mmol/L Carbon Dioxide (22-30) mmol/L Glucose (74-99) mg/dL POC Glucose (mg/dL) (75-99) mg/dL Plasma Lactic Acid Rob 2.9 H* (0.7-2.0) mmol/L Calcium (8.4-10.2) mg/dL Total Bilirubin (0.2-1.3) mg/dL AST (17-59) U/L CK-MB (CK-2) (0.0-2.4) ng/mL Troponin I (0.000-0.034) ng/mL Total Protein (6.3-8.2) g/dL Triglycerides (0.00-149.00) mg/dL HDL Cholesterol (40.00-60.00) mg/dL CSF Glucose (40-70) mg/dL CSF Total Protein (12-60) mg/dL 09/11/21 09/11/21 09/11/21 Range/Units 23:19 23:19 23:19 RBC (4.30-5.90) m/uL Hgb (13.0-17.5) gm/dL Hct (39.0-53.0) % Plt Count 121 L (150-450) k/uL Lymphocytes # 0.7 L (1.0-4.8) k/uL APTT (22.0-30.0) sec ABG pH (7.35-7.45) ABG pCO2 (35-45) mmHg ABG pO2 (83-108) mmHg ABG HCO3 (21-25) mmol/L ABG O2 Saturation (94-97) % Sodium 133 L (137-145) mmol/L Potassium 3.0 L (3.5-5.1) mmol/L Carbon Dioxide 17 L (22-30) mmol/L Glucose 190 H (74-99) mg/dL POC Glucose (mg/dL) (75-99) mg/dL Plasma Lactic Acid Rob (0.7-2.0) mmol/L Calcium 7.9 L (8.4-10.2) mg/dL Total Bilirubin 1.4 H (0.2-1.3) mg/dL AST 101 H (17-59) U/L CK-MB (CK-2) 13.5 H (0.0-2.4) ng/mL Troponin I 15.000 H* (0.000-0.034) ng/mL Total Protein 5.8 L (6.3-8.2) g/dL Triglycerides (0.00-149.00) mg/dL HDL Cholesterol (40.00-60.00) mg/dL CSF Glucose (40-70) mg/dL CSF Total Protein (12-60) mg/dL 09/12/21 09/12/21 09/12/21 Range/Units 00:02 01:23 01:32 RBC (4.30-5.90) m/uL Hgb (13.0-17.5) gm/dL Hct (39.0-53.0) % Plt Count (150-450) k/uL Lymphocytes # (1.0-4.8) k/uL APTT (22.0-30.0) sec ABG pH (7.35-7.45) ABG pCO2 (35-45) mmHg ABG pO2 393 H (83-108) mmHg ABG HCO3 (21-25) mmol/L ABG O2 Saturation 100.0 H (94-97) % Sodium (137-145) mmol/L Potassium (3.5-5.1) mmol/L Carbon Dioxide (22-30) mmol/L Glucose (74-99) mg/dL POC Glucose (mg/dL) 178 H 169 H (75-99) mg/dL Plasma Lactic Acid Rob (0.7-2.0) mmol/L Calcium (8.4-10.2) mg/dL Total Bilirubin (0.2-1.3) mg/dL AST (17-59) U/L CK-MB (CK-2) (0.0-2.4) ng/mL Troponin I (0.000-0.034) ng/mL Total Protein (6.3-8.2) g/dL Triglycerides (0.00-149.00) mg/dL HDL Cholesterol (40.00-60.00) mg/dL CSF Glucose (40-70) mg/dL CSF Total Protein (12-60) mg/dL 09/12/21 09/12/21 09/12/21 Range/Units 03:15 05:05 05:05 RBC 4.25 L (4.30-5.90) m/uL Hgb 12.9 L (13.0-17.5) gm/dL Hct 38.4 L (39.0-53.0) % Plt Count (150-450) k/uL Lymphocytes # (1.0-4.8) k/uL APTT 33.2 H (22.0-30.0) sec ABG pH (7.35-7.45) ABG pCO2 (35-45) mmHg ABG pO2 (83-108) mmHg ABG HCO3 (21-25) mmol/L ABG O2 Saturation (94-97) % Sodium 131 L (137-145) mmol/L Potassium 3.3 L (3.5-5.1) mmol/L Carbon Dioxide 19 L (22-30) mmol/L Glucose 190 H (74-99) mg/dL POC Glucose (mg/dL) (75-99) mg/dL Plasma Lactic Acid Rob (0.7-2.0) mmol/L Calcium 7.3 L (8.4-10.2) mg/dL Total Bilirubin (0.2-1.3) mg/dL AST (17-59) U/L CK-MB (CK-2) (0.0-2.4) ng/mL Troponin I (0.000-0.034) ng/mL Total Protein (6.3-8.2) g/dL Triglycerides 541.00 H (0.00-149.00) mg/dL HDL Cholesterol 30.50 L (40.00-60.00) mg/dL CSF Glucose (40-70) mg/dL CSF Total Protein (12-60) mg/dL 09/12/21 09/12/21 09/12/21 Range/Units 05:43 05:49 11:32 RBC (4.30-5.90) m/uL Hgb (13.0-17.5) gm/dL Hct (39.0-53.0) % Plt Count (150-450) k/uL Lymphocytes # (1.0-4.8) k/uL APTT (22.0-30.0) sec ABG pH (7.35-7.45) ABG pCO2 33 L (35-45) mmHg ABG pO2 192 H (83-108) mmHg ABG HCO3 20 L (21-25) mmol/L ABG O2 Saturation 99.1 H (94-97) % Sodium (137-145) mmol/L Potassium (3.5-5.1) mmol/L Carbon Dioxide (22-30) mmol/L Glucose (74-99) mg/dL POC Glucose (mg/dL) 207 H 186 H (75-99) mg/dL Plasma Lactic Acid Rob (0.7-2.0) mmol/L Calcium (8.4-10.2) mg/dL Total Bilirubin (0.2-1.3) mg/dL AST (17-59) U/L CK-MB (CK-2) (0.0-2.4) ng/mL Troponin I (0.000-0.034) ng/mL Total Protein (6.3-8.2) g/dL Triglycerides (0.00-149.00) mg/dL HDL Cholesterol (40.00-60.00) mg/dL CSF Glucose (40-70) mg/dL CSF Total Protein (12-60) mg/dL Microbiology - Last 24 Hours (Table) 09/12/21 01:00 Sputum Culture - Preliminary Sputum 09/11/21 11:54 CSF Gram Stain - Preliminary Cerebral Spinal Fluid CSF Culture - Preliminary 09/11/21 00:50 Blood Culture - Preliminary Blood No Growth after 24 hours 09/11/21 01:05 Blood Culture - Preliminary Blood No Growth after 24 hours Assessment and Plan Assessment: Septic encephalopathy Encephalopathy of unknown source. (Not menenigoencephalitis since CSF is negative (3 nucleated cells), no leukocytosis and supple neck). Likely elevated CSF protein and glucose from underlying infection and unknown source. ?reported neglect over left side by overnight nurse Elevated troponin. History of septic arthritis of the left knee History of ischemic cardiomyopathy, gastric outlet obstruction status post the EGD Diabetes Plan: Ordered EEG. Recommend repeat CT head 48 hours from today to assess if any new changes compared to initial to see if any ischemic changes seen not seen on overnight CT. ICU attending started the patient on Acylovir for possible encephalitis but it seems unlikely since CSF nulceated cells is normal. Is on Cefepime and Vacomycin and will defer modification of medication to I.D. team. Spoke with ICU attending to rule out septic arthritis since on my initial examination he was in pain on examining the left knee. Ordered carotid duplex because of reported carotid stenosis on CTA and consulted vascular surgery team. Infection disease team is on board. This is does not seems like seizure and will hold EEG. If continues to be altered tomorrow will consider EEG. Continue neuro checks I.D. team is consulted. Cardiology team is consulted for atrial fibrillation Will defer rest of medical management to primary team. The plan is discussed with patient's daughter who is at bedside, ICU attending. Dr. Damian will start Neurology service tomorrow AM. Trevor Louis M.D. Time with Patient: Less than 30
[2021-09-12] MEDS: NOREPINEPHRINE 8 MG in SODIUM CHLORIDE 0.9% 250 ML IV SCH ×2 (12:38→22:14)
--- NOTE | 2021-09-12 13:07 | CA ---
Transthoracic Echo Report Name: Burt Berkowitz Age: 76 Gender: M : 1945 Exam Date: 09/12/2021 10:35 Exam Location: [facility] Ht (in): 72 Wt (lb): 236 Ordering Physician: Karen Henning Attending/Referring Phys: Cleaning And Maintenance Worker Nishi Olsen RDCS Procedure CPT: Indications: nstemi Cardiac Hx: Technical Quality: Poor Contrast 1: Total Dose (mL): Contrast 2: Total Dose (mL): MEASUREMENTS (Male / Female) Normal Values 2D ECHO LV Diastolic Diameter PLAX 4.9 cm 4.2 - 5.9 / 3.9 - 5.3 cm LV Systolic Diameter PLAX 3.9 cm IVS Diastolic Thickness 1.5 cm 0.6 - 1.0 / 0.6 - 0.9 cm LVPW Diastolic Thickness 1.7 cm 0.6 - 1.0 / 0.6 - 0.9 cm LV Relative Wall Thickness 0.7 RV Internal Dim ED PLAX 2.9 cm LA Systolic Diameter LX 3.4 cm 3.0 - 4.0 / 2.7 - 3.8 cm M-MODE Aortic Root Diameter MM 3.6 cm MV E Point Septal Separation 1.9 cm AV Cusp Separation MM 1.9 cm DOPPLER AV Peak Velocity 124.1 cm/s AV Peak Gradient 6.2 mmHg MV Area PHT 3.6 cm??? Mitral E Point Velocity 53.1 cm/s Mitral A Point Velocity 83.6 cm/s Mitral E to A Ratio 0.6 MV Deceleration Time 210.8 ms MV E' Velocity 4.3 cm/s Mitral E to MV E' Ratio 12.4 TR Peak Velocity 245.3 cm/s TR Peak Gradient 24.1 mmHg Right Ventricular Systolic Press 28.6 mmHg FINDINGS Left Ventricle Left ventricular ejection fraction is estimated at 50-55 %. Left ventricular wall thickness normal. Moderate concentric left ventricular hypertrophy. Right Ventricle Normal right ventricular size and function. Right ventricular systolic pressure within normal limits. Right Atrium Normal right atrial size. Left Atrium Normal left atrial size. Mitral Valve Mild mitral regurgitation. Aortic Valve Focal thickening of the aortic valve cusps. No aortic valve stenosis or regurgitation. Tricuspid Valve Mild tricuspid regurgitation. Pulmonic Valve Pulmonic valve not well visualized. Pericardium Normal pericardium. Aorta Normal size aortic root and proximal ascending aorta. CONCLUSIONS Technically very difficult study for interpretation Normal left ventricular dimension and systolic from Previewed by: Dr. Krishna Vora MD (Electronically Signed) Final Date: 12 Sep 2021 13:06
--- NOTE | 2021-09-12 13:21 | EEG ---
ELECTROENCEPHALOGRAM REPORT DATE OF SERVICE: 09/12/2021. CLINICAL HISTORY: This is a 76-year-old gentleman who has altered mental status. The video EEG is obtained to evaluate for seizure epileptiform activity. RELEVANT MEDICATION: The patient is on IV propofol and fentanyl. A routine 21 channel EEG is performed with video using the 10/20 electrode placement system. DESCRIPTION: The patient is intubated on ventilator. Upon reviewing the EEG, I had to use the filter because of diffuse myogenic artifact. The background consist of diffuse low to moderate voltage of 1-1.5 Hz nonrhythmic activity. At time background consist of 5.5-6 Hz activity. There is no focal slowing. Interictal and ictal is none. ACTIVATION PROCEDURE: Photic stimulation and hyperventilation is not performed. CLINICAL INTERPRETATION: This is an abnormal routine EEG. The background slowing is suggestive of moderate to severe encephalopathy likely due to medication effect (IV propofol and Fentanyl). Otherwise there is no focal slowing, epileptiform discharge or seizure on the EEG. Clinical correlation is recommended. MMJANNA / PRAVINN: [id number] / CHASITY
[2021-09-12] MEDS: VANCOMYCIN 1,500 MG in SODIUM CHLORIDE 0.9% 250 ML IVPB SCH (13:28)
--- NOTE | 2021-09-12 15:58 | P.PN ---
Subjective Progress Note Date: 09/12/21 HISTORY OF PRESENT ILLNESS: This is a 75-year-old male patient of mine with previous medical history significant for coronary artery disease status post percutaneous coronary interv ention and stent placement last one was in 12/13/2019 in the mid RCA at that time he was found to have a totally occluded obtuse marginal one of the LCx, with collaterals from the PDA, hypertension and hypertensive cardiovascular disease, hyperlipidemia, diabetes mellitus type 2, diabetic polyneuropathy, 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 as well as radio frequency ablation, prostate cancer status post radiation therapy, MSSA septic arthritis left knee. Patient apparently had a fall out of bed and was found on the bedroom floor and patient was transferred to [facility] emergency center for evaluation. Prior to the fall, patient has not been feel ing well for at least a few days and continued to worsen. He was reported to have a cough with weakness. Patient was taking wvuh-ebx-uprvcfe cough medication without improvement. Initially temperature was 98.9, heart rate 99, blood pressure 145/109, pulse ox 93% on room air. Temperature max as morning is 102.8 with heart rate of 127. WBC 5.8, hemoglobin 14.1, platelet count 138. INR 1.1. Sodium 133, potassium 3.8, chloride 98, CO2 19, BUN 16 creatinine 0.88. Blood sugar 207. Lactic acid 7.3 and repeat 3.9. Calcium 9.2. Total bilirubin 1.4, AST 50, ALT 56, alkaline phosphatase 50. Troponin 0.013 followed by 2.370. Urinalysis was clear, blood moderate, RBC 6. Bacteria many. Serum alcohol level less than 10. Chronic virus PCR not detected. Influenza A not detected. Influenza B not detected. CAT scan of the brain revealed mild atrophy and chronic small vessel ischemia. No change compared to old exam. No acute intracranial abnormality. Chest x-ray, pelvis x-ray, cervical spine x-ray and abdominal and pelvic CAT scan have been completed but unable to open reports. Patient is seen today in the emergency center waiting for a bed on the cardiac stepdown unit. He has been started on heparin drip, cefepime and vancomycin and consults are in place with cardiology, infectious disease and neurology. Patient is status post diagnostic lumbar puncture completed by anesthesiology 09/12:patient went into acute respiratory failure and for airway protection he was intubated last night, and he is currently on before meals mode with a tidal volume of 450 FiO2 of 40% and PEEP of 5, his oxygen saturations. Gout, patient converted from atrial fibrillation to a normal sinus rhythm currently on amiodarone drip at 0.5 mg/m, he has been using the Levophed as well as propofol drip, for sedation, patient was also started on a cyclic severe per ICU for further coverage of possible viral meningitis, patient is to be maintained on vancomycin as well as cefepime as well, his urine output is good, he continues to be critical at this point in time. REVIEW OF SYSTEMS: patient is currently sedated on mechanical ventilation couldn't perform a complete review of system Constitutional: Documented fever, chills, no night sweats, reports fatigue , positive for weight loss. HEENT: No headache. No blurred vision or double vision, no loss of vision. No loss of Hearing, no ringing in the ears, no dizziness. No nasal drainage or congestion. No epistaxis. No sore throat. Respiratory: No shortness of breath, reported cough, no sputum production. No w heezing. Reports dyspnea with activity. Cardiovascular: No chest pain, no lower extremity edema. No palpitations. No paroxysmal nocturnal dyspnea. No orthopnea. No lightheadedness or dizziness. No syncopal episodes. Gastrointestinal: Reports no abdominal pain. No nausea, vomiting. No diarrh ea. No constipation. No bloody or tarry stools reports loss of appetite. Genitourinary: No dysuria, increased frequency, urgency. No urinary retention. Musculoskeletal: Positive for myalgias. positive for muscle weakness, Positive for gait dysfunction, no frequent falls, positive for low back pain . Integumentary: Sacral decubitus ulcer with pain, no lesions. No rash or pruritus. brpositive for bruising. No change in hair or nails. Neurologic: No aphasia. No facial droop. No change in mentation. No head injury. No headache. No paralysis. No paresthesia. Psychiatric: No depression. No anxiety. No mood swings. Endocrine: No abnormal blood sugars. No weight change. PHYSICAL EXAMINATION: General: This is 75-year-old male who is intubated on mechanical ventilation and sedated. HEENT: Head is atraumatic, normocephalic, there orogastric tube in place, and ET tube in place Neck: Supple, no JVP, normal carotid upstroke bilaterally, no lymphadenopathy. Chest: Decreased breath sounds at the bases, few rhonchi, no expiratory wheezes, no chest wall tenderness, no intercostal retractions. Heart: First heart sound is normal, second heart sound is normal there is systolic ejection murmur 2/6 left sternal border. Abdomen: Soft, nontender, nondistended, positive bowel sounds, no hepatosplenomegaly Extremities: There is no edema no calf tenderness DP + 1 bilaterally. Neurologic examination: patient is currently sedated on mechanical ventilation. ASSESSMENT AND PLAN: 1. vent dependent respiratory failure due to sepsis. The source of which is not quite delineated. Patient did have a lumbar puncture that showed minimal protein pleocytosis therefore he was started on a cyclic severe 900 mg IV piggyback every 8 hours for possible HSV encephalitis, patient has been covered with IV anabiotic in the form of vancomycin and cefepime, urine culture blood cultures are pending, if was a being COVID-19 is negative. Continue with current vent setting, continue with aggressive treatment, lactic acid is improving, continue to monitor the patient in the intensive care unit, infectious disease, pulmonary/critical care, cardiology, and neurology are following. Computed tomography scan of the brain is negative, CT angiography is negative, lumbar puncture showed pleocytosis for possible HSV encephalitis. 2. Non-ST elevated myocardial infarction. Patient started on heparin drip, monitor the patient very closely, continue aspirin 325 minute gram once every day, echogram still pending at the time of dictation. 3. Metabolic encephalopathy of unclear etiology. 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 4. History of MSSA left knee joint infection status post stage II revisi on,stable. 5. Severe lactic acidosis. Patient is status post 3 L of IV fluids, continue protocol.lactic acid is improving. 6. A. fib with RVR, new onset paroxysmal atrial fibrillation. continue heparin drip for now, continue amiodarone drip at 0.5 mg/m.patient can be switched to oral amiodarone tomorrow morning. 7. Coronary artery disease status post Left heart catheterization with PCI of the RCA on 07/30/2020. Continue patient on aspirin 325 mg daily. 8. Hypertension and hypertensive cardiovascular disease. patient is currently hypotensive discontinue metoprolol for now 9. Hyperlipidemia. hold off statin for now. 10. Diabetes mellitus type 2.hold off oral medication and start the patient on the sliding scale insulin or insulin drip if needed. 11. History of prostate cance status post rotation. Stable at this time. 12. 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 13. History of Urinary retention. currently has a Shelley catheter. 14. DVT prophylaxis. Heparin drip 15. GI prophylaxis. Protonix 40 mg IV push daily. 16. Patient is full code. 17. prognosis is very guarded. Objective - Vital Signs Vital signs: Vital Signs Temp 97.6 F 09/12/21 08:00 Pulse 74 09/12/21 10:00 Resp 22 09/12/21 10:00 BP 114/62 09/12/21 10:00 Pulse Ox 100 09/12/21 10:00 FiO2 40 09/12/21 08:14 Intake & Output 09/11/21 09/12/21 09/12/21 18:59 06:59 18:59 Intake Total 260 1485.108 871.134 Output Total 2625 525 75 Balance -2365 960.108 796.134 Weight 99.79 kg 107.3 kg Intake: IV 260 1160 609 Sodium Chloride 0.9% 1, 260 260 000 ml @ 130 mls/hr IV . Q7H42M STA Rx#:[id number] Sodium Chloride 0.9% 1, 900 600 000 ml @ 150 mls/hr IV . Q6H40M [facility]A Rx#:[id number] pressure bag 9 Intake, IV Titration 325.108 262.134 Amount Heparin Sod,Pork in 0.45% 84.122 NaCl 25,000 unit In 0.45 % NaCl 1 250ml.bag @ 18 UNITS/KG/HR 17.962 mls/hr IV .[id number] [facility]URA Rx#: [id number] Norepinephrine 4 mg In 140.737 75.026 Sodium Chloride 0.9% 250 ml @ 0.05 MCG/KG/MIN 19. 01 mls/hr IV .[id number] [facility]A Rx#:[id number] propofoL 1,000 mg In 100.249 187.108 Empty Bag 1 bag @ 5 MCG/ KG/MIN 2.994 mls/hr IV . Q24H [facility]A Rx#:[id number] Output: Urine 2625 525 75 Other: Voiding Method Indwelling Catheter Indwelling Catheter Indwelling Catheter ABP, PAP, CO, CI - Last Documented Arterial Blood Pressure 102/49 - Labs CBC & Chem 7: 09/12/21 05:05 09/12/21 13:20 Labs: Abnormal Lab Results - Last 24 Hours (Table) 09/11/21 09/11/21 09/11/21 Range/Units 11:54 17:49 19:48 RBC (4.30-5.90) m/uL Hgb (13.0-17.5) gm/dL Hct (39.0-53.0) % Plt Count (150-450) k/uL Lymphocytes # (1.0-4.8) k/uL APTT (22.0-30.0) sec ABG pH (7.35-7.45) ABG pCO2 (35-45) mmHg ABG pO2 (83-108) mmHg ABG HCO3 (21-25) mmol/L ABG O2 Saturation (94-97) % Sodium (137-145) mmol/L Potassium (3.5-5.1) mmol/L Carbon Dioxide (22-30) mmol/L Glucose (74-99) mg/dL POC Glucose (mg/dL) 167 H (75-99) mg/dL Plasma Lactic Acid Rob (0.7-2.0) mmol/L Calcium (8.4-10.2) mg/dL Total Bilirubin (0.2-1.3) mg/dL AST (17-59) U/L CK-MB (CK-2) (0.0-2.4) ng/mL Troponin I 14.000 H* (0.000-0.034) ng/mL Total Protein (6.3-8.2) g/dL Triglycerides (0.00-149.00) mg/dL HDL Cholesterol (40.00-60.00) mg/dL CSF Glucose 116 H (40-70) mg/dL CSF Total Protein 116 H (12-60) mg/dL 09/11/21 09/11/21 09/11/21 Range/Units 19:48 19:48 22:50 RBC (4.30-5.90) m/uL Hgb (13.0-17.5) gm/dL Hct (39.0-53.0) % Plt Count (150-450) k/uL Lymphocytes # (1.0-4.8) k/uL APTT >200.0 H* (22.0-30.0) sec ABG pH 7.54 H (7.35-7.45) ABG pCO2 23 L (35-45) mmHg ABG pO2 62 L (83-108) mmHg ABG HCO3 20 L (21-25) mmol/L ABG O2 Saturation (94-97) % Sodium (137-145) mmol/L Potassium (3.5-5.1) mmol/L Carbon Dioxide (22-30) mmol/L Glucose (74-99) mg/dL POC Glucose (mg/dL) (75-99) mg/dL Plasma Lactic Acid Rob 2.9 H* (0.7-2.0) mmol/L Calcium (8.4-10.2) mg/dL Total Bilirubin (0.2-1.3) mg/dL AST (17-59) U/L CK-MB (CK-2) (0.0-2.4) ng/mL Troponin I (0.000-0.034) ng/mL Total Protein (6.3-8.2) g/dL Triglycerides (0.00-149.00) mg/dL HDL Cholesterol (40.00-60.00) mg/dL CSF Glucose (40-70) mg/dL CSF Total Protein (12-60) mg/dL 09/11/21 09/11/21 09/11/21 Range/Units 23:19 23:19 23:19 RBC (4.30-5.90) m/uL Hgb (13.0-17.5) gm/dL Hct (39.0-53.0) % Plt Count 121 L (150-450) k/uL Lymphocytes # 0.7 L (1.0-4.8) k/uL APTT (22.0-30.0) sec ABG pH (7.35-7.45) ABG pCO2 (35-45) mmHg ABG pO2 (83-108) mmHg ABG HCO3 (21-25) mmol/L ABG O2 Saturation (94-97) % Sodium 133 L (137-145) mmol/L Potassium 3.0 L (3.5-5.1) mmol/L Carbon Dioxide 17 L (22-30) mmol/L Glucose 190 H (74-99) mg/dL POC Glucose (mg/dL) (75-99) mg/dL Plasma Lactic Acid Rob (0.7-2.0) mmol/L Calcium 7.9 L (8.4-10.2) mg/dL Total Bilirubin 1.4 H (0.2-1.3) mg/dL AST 101 H (17-59) U/L CK-MB (CK-2) 13.5 H (0.0-2.4) ng/mL Troponin I 15.000 H* (0.000-0.034) ng/mL Total Protein 5.8 L (6.3-8.2) g/dL Triglycerides (0.00-149.00) mg/dL HDL Cholesterol (40.00-60.00) mg/dL CSF Glucose (40-70) mg/dL CSF Total Protein (12-60) mg/dL 09/12/21 09/12/21 09/12/21 Range/Units 00:02 01:23 01:32 RBC (4.30-5.90) m/uL Hgb (13.0-17.5) gm/dL Hct (39.0-53.0) % Plt Count (150-450) k/uL Lymphocytes # (1.0-4.8) k/uL APTT (22.0-30.0) sec ABG pH (7.35-7.45) ABG pCO2 (35-45) mmHg ABG pO2 393 H (83-108) mmHg ABG HCO3 (21-25) mmol/L ABG O2 Saturation 100.0 H (94-97) % Sodium (137-145) mmol/L Potassium (3.5-5.1) mmol/L Carbon Dioxide (22-30) mmol/L Glucose (74-99) mg/dL POC Glucose (mg/dL) 178 H 169 H (75-99) mg/dL Plasma Lactic Acid Rob (0.7-2.0) mmol/L Calcium (8.4-10.2) mg/dL Total Bilirubin (0.2-1.3) mg/dL AST (17-59) U/L CK-MB (CK-2) (0.0-2.4) ng/mL Troponin I (0.000-0.034) ng/mL Total Protein (6.3-8.2) g/dL Triglycerides (0.00-149.00) mg/dL HDL Cholesterol (40.00-60.00) mg/dL CSF Glucose (40-70) mg/dL CSF Total Protein (12-60) mg/dL 09/12/21 09/12/21 09/12/21 Range/Units 03:15 05:05 05:05 RBC 4.25 L (4.30-5.90) m/uL Hgb 12.9 L (13.0-17.5) gm/dL Hct 38.4 L (39.0-53.0) % Plt Count (150-450) k/uL Lymphocytes # (1.0-4.8) k/uL APTT 33.2 H (22.0-30.0) sec ABG pH (7.35-7.45) ABG pCO2 (35-45) mmHg ABG pO2 (83-108) mmHg ABG HCO3 (21-25) mmol/L ABG O2 Saturation (94-97) % Sodium 131 L (137-145) mmol/L Potassium 3.3 L (3.5-5.1) mmol/L Carbon Dioxide 19 L (22-30) mmol/L Glucose 190 H (74-99) mg/dL POC Glucose (mg/dL) (75-99) mg/dL Plasma Lactic Acid Rob (0.7-2.0) mmol/L Calcium 7.3 L (8.4-10.2) mg/dL Total Bilirubin (0.2-1.3) mg/dL AST (17-59) U/L CK-MB (CK-2) (0.0-2.4) ng/mL Troponin I (0.000-0.034) ng/mL Total Protein (6.3-8.2) g/dL Triglycerides 541.00 H (0.00-149.00) mg/dL HDL Cholesterol 30.50 L (40.00-60.00) mg/dL CSF Glucose (40-70) mg/dL CSF Total Protein (12-60) mg/dL 09/12/21 09/12/21 Range/Units 05:43 05:49 RBC (4.30-5.90) m/uL Hgb (13.0-17.5) gm/dL Hct (39.0-53.0) % Plt Count (150-450) k/uL Lymphocytes # (1.0-4.8) k/uL APTT (22.0-30.0) sec ABG pH (7.35-7.45) ABG pCO2 33 L (35-45) mmHg ABG pO2 192 H (83-108) mmHg ABG HCO3 20 L (21-25) mmol/L ABG O2 Saturation 99.1 H (94-97) % Sodium (137-145) mmol/L Potassium (3.5-5.1) mmol/L Carbon Dioxide (22-30) mmol/L Glucose (74-99) mg/dL POC Glucose (mg/dL) 207 H (75-99) mg/dL Plasma Lactic Acid Rob (0.7-2.0) mmol/L Calcium (8.4-10.2) mg/dL Total Bilirubin (0.2-1.3) mg/dL AST (17-59) U/L CK-MB (CK-2) (0.0-2.4) ng/mL Troponin I (0.000-0.034) ng/mL Total Protein (6.3-8.2) g/dL Triglycerides (0.00-149.00) mg/dL HDL Cholesterol (40.00-60.00) mg/dL CSF Glucose (40-70) mg/dL CSF Total Protein (12-60) mg/dL Microbiology - Last 24 Hours (Table) 09/12/21 01:00 Sputum Culture - Preliminary Sputum 09/11/21 11:54 CSF Gram Stain - Preliminary Cerebral Spinal Fluid CSF Culture - Preliminary 09/11/21 00:50 Blood Culture - Preliminary Blood No Growth after 24 hours 09/11/21 01:05 Blood Culture - Preliminary Blood No Growth after 24 hours
[2021-09-12 16:59] LABS: Urine Alcohol Negative (Negative); Urine Barbiturate Negative (Negative); Urine Cocaine Negative (Negative); Urine Methadone Negative (Negative); Urine Opiates Negative (Negative); Urine Phencyclidine Negative (Negative)
[2021-09-12 17:51] LABS: Glucose,Whole Blood 173 mg/dL (75-99)
--- NOTE | 2021-09-12 17:52 | P.CNOR ---
History of Present Illness - [facility] Consult date: 09/12/21 Requesting physician: Karen Henning Consult reason: joint pain (Rule out left knee septic arthritis) History of present illness: The patient is a 76-year-old male known to our service was seen and examined the ICU for further evaluation of his left knee patient is currently intubated for protection of his airway. Patient is known to have proceed undergone surgical intervention and his left knee with Dr. Raji Choi. He is known to have previously had septic arthritis of the left knee. He underwent stage I revision of the left knee in February 2021. He underwent stage II revision left total knee arthroplasty performed on 06/02/2021. He was recently seen and examined in the office by Dr. Raji Choi on 09/08/2021. At that time his left knee pain had been improving and the swelling in his left knee had been improving. He was planning for follow-up evaluation in 3 months. ICU nursing states the family states the patient had began to feel worse throughout the middle of the weak. He did have a cough and try some cough syrup medicine. He was brought to the emergency department on 09/11/2021 after a suspected fall. Patient does live in a [place] [facility] residence. At his presentation to the emergency department he was having altered mental status. He does have a history of sacral pressure ulcer, ischemic cardiomyopathy, atrial fibrillation, coronary artery disease, diabetes mellitus, hyperlipidemia, and hypertension. He is being seen by multiple providers including cardiology, neurology, infectious disease and medicine. He has been seen by vascular surgery. He underwent lumbar puncture for encephalopathy. Patient is currently septic without known cause. Nursing states multiple cultures had been taken and are pending. Patient is currently on cefepime and vancomycin. Nursing states the patient did have some elevated troponin levels and is being seen by cardiology. He is being managed by pulmonology as well. He is undergoing extensive workup with neurology as well. Given his significant medical diagnoses and currently being evaluated for sepsis, we are consulted to rule out septic arthritis of the left knee. Past Medical History Past Medical History: Atrial Fibrillation, Coronary Artery Disease (CAD), Cancer, Chest Pain / Angina, Diabetes Mellitus, GERD/Reflux, Hyperlipidemia, Hypertension, Osteoarthritis (OA), Prostate Disorder Additional Past Medical History / Comment(s): 5 Herniated discs in neck causing headaches & numbness in arm and right lower back and pain and right leg pain. Hx 4 fx ribs, current Prostate Cancer- last radiation tx Mar 25 had total of 44 tx. occ constipation, Last Myocardial Infarction Date:: UNKOWN History of Any Multi-Drug Resistant Organisms: VRE Year Discovered:: 09/18/20 MDRO Source:: Wound Past Surgical History: Adenoidectomy, Heart Catheterization, Heart Catheterization With Stent, Joint Replacement, Orthopedic Surgery, Tonsillectomy Additional Past Surgical History / Comment(s): PROSTATE BX., LT. KNEE ARTHROSCOPY X 2, CERVICAL FUSIONS, COLONOSCOPY, ÁNGEL. CATARTACTS.Pain Procedures , rt radio frequency procedures. , total 3 heart stents, hemorrhoidectomy,heart cath August 2017-lt knee replacement. Stent replacement \2020 Past Anesthesia/Blood Transfusion Reactions: No Reported Reaction Additional Past Anesthesia/Blood Transfusion Reaction / Comm: doesn't like enclosed tight spaces Date of Last Stent Placement:: 04/24/17 Past Psychological History: No Psychological Hx Reported Smoking Status: Former smoker Past Alcohol Use History: None Reported Past Drug Use History: None Reported - Past Family History Father Additional Family Medical History / Comment(s): Father at age 49 from coronary artery disease. Brother(s) Additional Family Medical History / Comment(s): Patient has one brother with history of smoking and no other major medical problems. Patient does not have any sisters. Daughter(s) Additional Family Medical History / Comment(s): Patient has one daughter with history of muscular dystrophy and of pneumonia. Son(s) Family Medical History: No Reported History Additional Family Medical History / Comment(s): Patient has one son with no major medical problems. Mother Family Medical History: Cancer Additional Family Medical History / Comment(s): Mother at age 81 from uterine cancer with metastatic disease. Medications and Allergies Home Medications Medication Instructions Recorded Confirmed Type Atorvastatin [Lipitor] 80 mg PO HS 09/01/20 09/11/21 History Metoprolol Tartrate [Lopressor] 50 mg PO BID 09/17/20 09/11/21 History sitaGLIPtin PHOS/metFORMIN HCL 1 tab PO DAILY 02/23/21 09/11/21 History [Janumet Xr 100-1,000 mg Tablet] Dapagliflozin Propanediol [Farxiga] 5 mg PO DAILY 05/29/21 09/11/21 History Baclofen [Lioresal] 10 mg PO HS #30 tab 06/05/21 09/11/21 Rx Aspirin EC [Ecotrin Low Dose] 81 mg PO DAILY 09/11/21 09/11/21 History HYDROcodone/APAP 10-325MG [Aspen 1 tab PO Q8H PRN 09/11/21 09/11/21 History 10-325] Allergies Allergy/AdvReac Type Severity Reaction Status Date / Time No Known Allergies Allergy Verified 09/11/21 10:05 Physical Examination Physical Exam: Patient is awake, alert, and oriented 3 Vital signs stable; patient currently intubated in the ICU Adequate chest excursion with deep inspiration and expiration Pneumatic cuffs intact over the feet and ankles bilaterally Evidence of a healing incision over the left anterior knee No active drainage at the surgical site of the left knee Left knee is soft to palpation No erythema about the left knee Mild generalized swelling around the left knee without palpable fluid collection No warmth with palpation over the left knee Skin around the left knee is cool to palpation No obvious infection in the left kne Results - Labs Labs: Abnormal Lab Results - Last 24 Hours (Table) 09/11/21 09/11/21 09/11/21 Range/Units 11:54 17:49 19:48 RBC (4.30-5.90) m/uL Hgb (13.0-17.5) gm/dL Hct (39.0-53.0) % Plt Count (150-450) k/uL Lymphocytes # (1.0-4.8) k/uL APTT (22.0-30.0) sec ABG pH (7.35-7.45) ABG pCO2 (35-45) mmHg ABG pO2 (83-108) mmHg ABG HCO3 (21-25) mmol/L ABG O2 Saturation (94-97) % Sodium (137-145) mmol/L Potassium (3.5-5.1) mmol/L Carbon Dioxide (22-30) mmol/L Glucose (74-99) mg/dL POC Glucose (mg/dL) 167 H (75-99) mg/dL Plasma Lactic Acid Rob (0.7-2.0) mmol/L Calcium (8.4-10.2) mg/dL Total Bilirubin (0.2-1.3) mg/dL AST (17-59) U/L Creatine Kinase (35-257) U/L CK-MB (CK-2) (0.0-2.4) ng/mL Troponin I 14.000 H* (0.000-0.034) ng/mL Total Protein (6.3-8.2) g/dL Triglycerides (0.00-149.00) mg/dL HDL Cholesterol (40.00-60.00) mg/dL Procalcitonin (0.02-0.09) ng/mL CSF Glucose 116 H (40-70) mg/dL CSF Total Protein 116 H (12-60) mg/dL 09/11/21 09/11/21 09/11/21 Range/Units 19:48 19:48 22:50 RBC (4.30-5.90) m/uL Hgb (13.0-17.5) gm/dL Hct (39.0-53.0) % Plt Count (150-450) k/uL Lymphocytes # (1.0-4.8) k/uL APTT >200.0 H* (22.0-30.0) sec ABG pH 7.54 H (7.35-7.45) ABG pCO2 23 L (35-45) mmHg ABG pO2 62 L (83-108) mmHg ABG HCO3 20 L (21-25) mmol/L ABG O2 Saturation (94-97) % Sodium (137-145) mmol/L Potassium (3.5-5.1) mmol/L Carbon Dioxide (22-30) mmol/L Glucose (74-99) mg/dL POC Glucose (mg/dL) (75-99) mg/dL Plasma Lactic Acid Rob 2.9 H* (0.7-2.0) mmol/L Calcium (8.4-10.2) mg/dL Total Bilirubin (0.2-1.3) mg/dL AST (17-59) U/L Creatine Kinase (35-257) U/L CK-MB (CK-2) (0.0-2.4) ng/mL Troponin I (0.000-0.034) ng/mL Total Protein (6.3-8.2) g/dL Triglycerides (0.00-149.00) mg/dL HDL Cholesterol (40.00-60.00) mg/dL Procalcitonin (0.02-0.09) ng/mL CSF Glucose (40-70) mg/dL CSF Total Protein (12-60) mg/dL 09/11/21 09/11/21 09/11/21 Range/Units 23:19 23:19 23:19 RBC (4.30-5.90) m/uL Hgb (13.0-17.5) gm/dL Hct (39.0-53.0) % Plt Count 121 L (150-450) k/uL Lymphocytes # 0.7 L (1.0-4.8) k/uL APTT (22.0-30.0) sec ABG pH (7.35-7.45) ABG pCO2 (35-45) mmHg ABG pO2 (83-108) mmHg ABG HCO3 (21-25) mmol/L ABG O2 Saturation (94-97) % Sodium 133 L (137-145) mmol/L Potassium 3.0 L (3.5-5.1) mmol/L Carbon Dioxide 17 L (22-30) mmol/L Glucose 190 H (74-99) mg/dL POC Glucose (mg/dL) (75-99) mg/dL Plasma Lactic Acid Rob (0.7-2.0) mmol/L Calcium 7.9 L (8.4-10.2) mg/dL Total Bilirubin 1.4 H (0.2-1.3) mg/dL AST 101 H (17-59) U/L Creatine Kinase (35-257) U/L CK-MB (CK-2) 13.5 H (0.0-2.4) ng/mL Troponin I 15.000 H* (0.000-0.034) ng/mL Total Protein 5.8 L (6.3-8.2) g/dL Triglycerides (0.00-149.00) mg/dL HDL Cholesterol (40.00-60.00) mg/dL Procalcitonin (0.02-0.09) ng/mL CSF Glucose (40-70) mg/dL CSF Total Protein (12-60) mg/dL 09/12/21 09/12/21 09/12/21 Range/Units 00:02 01:23 01:32 RBC (4.30-5.90) m/uL Hgb (13.0-17.5) gm/dL Hct (39.0-53.0) % Plt Count (150-450) k/uL Lymphocytes # (1.0-4.8) k/uL APTT (22.0-30.0) sec ABG pH (7.35-7.45) ABG pCO2 (35-45) mmHg ABG pO2 393 H (83-108) mmHg ABG HCO3 (21-25) mmol/L ABG O2 Saturation 100.0 H (94-97) % Sodium (137-145) mmol/L Potassium (3.5-5.1) mmol/L Carbon Dioxide (22-30) mmol/L Glucose (74-99) mg/dL POC Glucose (mg/dL) 178 H 169 H (75-99) mg/dL Plasma Lactic Acid Rob (0.7-2.0) mmol/L Calcium (8.4-10.2) mg/dL Total Bilirubin (0.2-1.3) mg/dL AST (17-59) U/L Creatine Kinase (35-257) U/L CK-MB (CK-2) (0.0-2.4) ng/mL Troponin I (0.000-0.034) ng/mL Total Protein (6.3-8.2) g/dL Triglycerides (0.00-149.00) mg/dL HDL Cholesterol (40.00-60.00) mg/dL Procalcitonin (0.02-0.09) ng/mL CSF Glucose (40-70) mg/dL CSF Total Protein (12-60) mg/dL 09/12/21 09/12/21 09/12/21 Range/Units 03:15 05:05 05:05 RBC 4.25 L (4.30-5.90) m/uL Hgb 12.9 L (13.0-17.5) gm/dL Hct 38.4 L (39.0-53.0) % Plt Count (150-450) k/uL Lymphocytes # (1.0-4.8) k/uL APTT 33.2 H (22.0-30.0) sec ABG pH (7.35-7.45) ABG pCO2 (35-45) mmHg ABG pO2 (83-108) mmHg ABG HCO3 (21-25) mmol/L ABG O2 Saturation (94-97) % Sodium 131 L (137-145) mmol/L Potassium 3.3 L (3.5-5.1) mmol/L Carbon Dioxide 19 L (22-30) mmol/L Glucose 190 H (74-99) mg/dL POC Glucose (mg/dL) (75-99) mg/dL Plasma Lactic Acid Rob (0.7-2.0) mmol/L Calcium 7.3 L (8.4-10.2) mg/dL Total Bilirubin (0.2-1.3) mg/dL AST (17-59) U/L Creatine Kinase (35-257) U/L CK-MB (CK-2) (0.0-2.4) ng/mL Troponin I (0.000-0.034) ng/mL Total Protein (6.3-8.2) g/dL Triglycerides 541.00 H (0.00-149.00) mg/dL HDL Cholesterol 30.50 L (40.00-60.00) mg/dL Procalcitonin (0.02-0.09) ng/mL CSF Glucose (40-70) mg/dL CSF Total Protein (12-60) mg/dL 09/12/21 09/12/21 09/12/21 Range/Units 05:05 05:05 05:43 RBC (4.30-5.90) m/uL Hgb (13.0-17.5) gm/dL Hct (39.0-53.0) % Plt Count (150-450) k/uL Lymphocytes # (1.0-4.8) k/uL APTT (22.0-30.0) sec ABG pH (7.35-7.45) ABG pCO2 33 L (35-45) mmHg ABG pO2 192 H (83-108) mmHg ABG HCO3 20 L (21-25) mmol/L ABG O2 Saturation 99.1 H (94-97) % Sodium (137-145) mmol/L Potassium (3.5-5.1) mmol/L Carbon Dioxide (22-30) mmol/L Glucose (74-99) mg/dL POC Glucose (mg/dL) (75-99) mg/dL Plasma Lactic Acid Rob (0.7-2.0) mmol/L Calcium (8.4-10.2) mg/dL Total Bilirubin (0.2-1.3) mg/dL AST (17-59) U/L Creatine Kinase 1846 H* (35-257) U/L CK-MB (CK-2) (0.0-2.4) ng/mL Troponin I (0.000-0.034) ng/mL Total Protein (6.3-8.2) g/dL Triglycerides (0.00-149.00) mg/dL HDL Cholesterol (40.00-60.00) mg/dL Procalcitonin 0.35 H (0.02-0.09) ng/mL CSF Glucose (40-70) mg/dL CSF Total Protein (12-60) mg/dL 09/12/21 09/12/21 Range/Units 05:49 11:32 RBC (4.30-5.90) m/uL Hgb (13.0-17.5) gm/dL Hct (39.0-53.0) % Plt Count (150-450) k/uL Lymphocytes # (1.0-4.8) k/uL APTT (22.0-30.0) sec ABG pH (7.35-7.45) ABG pCO2 (35-45) mmHg ABG pO2 (83-108) mmHg ABG HCO3 (21-25) mmol/L ABG O2 Saturation (94-97) % Sodium (137-145) mmol/L Potassium (3.5-5.1) mmol/L Carbon Dioxide (22-30) mmol/L Glucose (74-99) mg/dL POC Glucose (mg/dL) 207 H 186 H (75-99) mg/dL Plasma Lactic Acid Rob (0.7-2.0) mmol/L Calcium (8.4-10.2) mg/dL Total Bilirubin (0.2-1.3) mg/dL AST (17-59) U/L Creatine Kinase (35-257) U/L CK-MB (CK-2) (0.0-2.4) ng/mL Troponin I (0.000-0.034) ng/mL Total Protein (6.3-8.2) g/dL Triglycerides (0.00-149.00) mg/dL HDL Cholesterol (40.00-60.00) mg/dL Procalcitonin (0.02-0.09) ng/mL CSF Glucose (40-70) mg/dL CSF Total Protein (12-60) mg/dL Microbiology - Last 24 Hours (Table) 09/12/21 01:00 Sputum Culture - Preliminary Sputum 09/11/21 11:54 CSF Gram Stain - Preliminary Cerebral Spinal Fluid CSF Culture - Preliminary 09/11/21 00:50 Blood Culture - Preliminary Blood No Growth after 24 hours 09/11/21 01:05 Blood Culture - Preliminary Blood No Growth after 24 hours H & H 09/11/21 09/11/21 09/12/21 Range/Units 00:46 23:19 05:05 Hgb 14.1 13.6 12.9 L (13.0-17.5) gm/dL Hct 43.0 41.6 38.4 L (39.0-53.0) % Coagulation 09/11/21 Range/Units 00:46 INR 1.1 (<1.2) Result Diagrams: 09/12/21 05:05 09/12/21 13:20 Assessment and Plan Assessment: Assessment: History of septic arthritis of the left knee Status post stage I revision of the left knee performed in February 2021 Status post stage II revision left total knee arthroplasty performed on 06/02/2021 Altered mental status Sepsis Sacral pressure ulcer History of ischemic cardiomyopathy with history of stent placement Atrial fibrillation Coronary artery disease Diabetes mellitus Hyperlipidemia Hypertension (1) History of total knee arthroplasty Current Visit: Yes Status: Acute Code(s): Z96.659 - PRESENCE OF UNSPECIFIED ARTIFICIAL KNEE JOINT SNOMED Code(s): 1790825139221 (2) History of septic arthritis Current Visit: Yes Status: Acute Code(s): Z87.39 - PERSONAL HISTORY OF DISEASES OF THE MS SYS AND CONN TISS SNOMED Code(s): 663763644 (3) Altered mental status Current Visit: Yes Status: Acute Code(s): R41.82 - ALTERED MENTAL STATUS, UNSPECIFIED SNOMED Code(s): 716418860 (4) Sacral pressure ulcer Current Visit: Yes Status: Acute Code(s): L89.159 - PRESSURE ULCER OF SACRAL REGION, UNSPECIFIED STAGE SNOMED Code(s): 695371422 (5) Ischemic cardiomyopathy Current Visit: Yes Status: Acute Code(s): I25.5 - ISCHEMIC CARDIOMYOPATHY SNOMED Code(s): 463230369 (6) History of intravascular stent placement Current Visit: Yes Status: Acute Code(s): Z95.828 - PRESENCE OF OTHER VASCULAR IMPLANTS AND GRAFTS SNOMED Code(s): 871490578 (7) Diabetes mellitus Current Visit: Yes Status: Acute Code(s): E11.9 - TYPE 2 DIABETES MELLITUS WITHOUT COMPLICATIONS SNOMED Code(s): 11700822 (8) Hyperlipidemia Current Visit: Yes Status: Acute Code(s): E78.5 - HYPERLIPIDEMIA, UNSPECIFIED SNOMED Code(s): 57537229 (9) Hypertension Current Visit: Yes Status: Acute Code(s): I10 - ESSENTIAL (PRIMARY) HYPERTENSION SNOMED Code(s): 19421491 (10) Sepsis Current Visit: Yes Status: Acute Code(s): A41.9 - SEPSIS, UNSPECIFIED ORGANISM SNOMED Code(s): 88296400 (11) Atrial fibrillation Current Visit: No Status: Acute Code(s): I48.91 - UNSPECIFIED ATRIAL FIBRILLATION SNOMED Code(s): 27859015 (12) CAD (coronary artery disease) Current Visit: No Status: Acute Code(s): I25.10 - ATHSCL HEART DISEASE OF [place] CORONARY ARTERY W/O ANG PCTRS SNOMED Code(s): 55005269 Plan: Plan: 1. Patient has been discussed in significant detail with Dr. Raji Choi. Patient has a significant medical history and is known to have significant difficulty with his left knee. He appears to have septic arthritis of the left knee. He is status post stage I revision of the left knee performed in February 2021 and status post stage II revision left total knee arthroplasty performed on 06/02/2021. He has been improving postoperatively regard to his left knee. He is recently seen in the office on 09/08/[address] Raji Choi for further evaluation of his left knee. At that time his left knee pain had been improving and the swelling in his left knee had been improving as well. Following that appointment patient's overall health began to decline in the middle of the week. He lives in a [place] [facility] facility and was found on the floor. He was brought to [facility] for further evaluation 2021. Since that time he has had significant difficulty with multiple medical diagnoses. He presented with altered mental status. He is currently intubated in the ICU. He is being evaluated for sepsis. Upon physical examination of his left knee, there are no indications in which he has recurrent septic arthritis at his left knee. His left knee is cool to palpation. He has mild generalized swelling around the left knee without a palpable fluid collection. There is no erythema or warmth over the left knee. His incision on the left knee is healing appropriately with no active drainage. There is no obvious sign of infections at his left knee. Patient does not have an elevated WBC. Most recent WBC is 6.4. Patient has remained afebrile over the past 36 hours. From an orthopedic standpoint, it doesn't appear the patient sepsis status is in relation to his left knee. We are not currently planning for further treatment or evaluation specifically in regards to his left knee. We would not plan for aspiration or other treatment of his left knee. At this time, from an orthopedic standpoint, patient should continue with conservative treatment and postoperative care for his left knee. Plan of care was discussed in detail with the patient's nurse. We'll plan have the patient follow-up in the outpatient setting with Dr. Raji Choi in approximately 3 months as scheduled. We did discuss if there is fu rther concern for septic arthritis of the left knee we may be contacted again for further evaluation of his left knee. We did discuss patient should continue with extensive workup by multiple other medical providers for treatment evaluation of his multiple other medical diagnoses. Time with Patient: Greater than 30 (Including obtaining history, physical examination, reviewing of imaging, and dictation.)
[2021-09-12 23:54] LABS: Glucose,Whole Blood 184 mg/dL (75-99)
[2021-09-13] MEDS: INSULIN ASPART (NovoLOG) 100 UNIT/ML VIAL SQ SCH ×4 (00:01→18:35)
[2021-09-13] MEDS: ACYCLOVIR SODIUM 900 MG in SODIUM CHLORIDE 0.9% 250 ML IVPB SCH ×3 (00:01→17:48)
[2021-09-13] MEDS: SODIUM CHLORIDE 0.9% 1,000 ML IV SCH ×2 (02:07→10:12)
[2021-09-13] MEDS: VANCOMYCIN 1,500 MG in SODIUM CHLORIDE 0.9% 250 ML IVPB SCH ×2 (02:09→17:48)
[2021-09-13 04:25] LABS: Basophils % (A) 0 %; Eosinophils % (A) 0 %; HCT 34.9 % (39.0-53.0); Lymphocytes # (A) 0.8 k/uL (1.0-4.8); Lymphocytes % (A) 23 %; MCH 31.4 pg (25.0-35.0); MCHC 34.4 g/dL (31.0-37.0); MCV 91.1 fL (80.0-100.0); Mean Platelet Volume 7.2; Monocytes # (A) 0.3 k/uL (0-1.0); Monocytes % (A) 8 %; Neutrophils # (A) 2.2 k/uL (1.3-7.7); Neutrophils % (A) 64 %; Platelet Count 114 k/uL (150-450); RBC 3.83 m/uL (4.30-5.90); RDW 14.9 % (11.5-15.5); WBC 3.5 k/uL (3.8-10.6)
[2021-09-13 04:41] LABS: Magnesium 1.5 mg/dL (1.6-2.3); Potassium 3.3 mmol/L (3.5-5.1)
[2021-09-13] MEDS ORDERED: Magnesium Replacement Protocol 1 EACH MISC MISCELLANE PRN ×2 (04:55→04:56)
[2021-09-13] MEDS ORDERED: Potassium Replacement Protocol 1 EACH MISC MISCELLANE PRN (04:56)
[2021-09-13] MEDS: MAGNESIUM SULFATE-D5W PMX 1 GM in DEXTROSE/WATER 1 100ML.BAG IVPB SCH ×2 (05:10→06:32)
[2021-09-13] MEDS: POTASSIUM BICARBONATE/CIT AC 20 MEQ TABLET.EFF NG-TUBE SCH ×2 (05:10→06:32)
[2021-09-13 05:18] LABS: Glucose,Whole Blood 158 mg/dL (75-99)
[2021-09-13 05:41] LABS: ABG Base Excess -7.4 mmol/L; ABG HCO3 18 mmol/L (21-25); ABG Oxygen Saturation 98.8 % (94-97); ABG PCO2 34 mmHg (35-45); ABG PH 7.34 (7.35-7.45); ABG PO2 145 mmHg (83-108); ABG TCO2 19 mmol/L (19-24)
[2021-09-13 05:48] LABS: Allen Test Performed? No
--- NOTE | 2021-09-13 08:26 | P.PN ---
Subjective HISTORY OF PRESENTING ILLNESS This is a 76-year-old gentleman was brought to the hospital with mental status changes and fall. Apparently patient was not feeling well for the last several days and was complaining of generalized weakness. He is currently intubated and most of the information is gathered from chart and field sales consultant notes and also fr om the nurses. Patient has history of septic arthritis coronary artery disease, hypertension, hypercholesterolemia with previous intervention of the right coronary artery. Patient was in atrial fibrillation on admission and was initially treated with IV Cardizem and subsequent change to IV amiodarone. His converted to sinus rhythm. Patient is currently sedated. Patient apparently not withdrawing with painful stimuli before the sedation. He is a troponin values went up suggestive of non-STEMI. EKG did not reveal any acute ST-T abnormalities. Echocardiogram is requested. Is being followed by neurology, infectious disease and also surgical team. Apparently patient also has carotid disease. From Cardec standpoint, patient is not a candidate for any intervention at this time. We will get an echo Cardec gram to assess LV function. Continue with IV amiodarone. Patient was treated with heparin but was discontinued because of high PTT. That needs to be resumed once feasible. Prognosis is guarded 09/13 Patient seen and examined. Initially was in A. fib however currently sinus rhythm. Noted to be elevated lactic acid and elevating troponins initially normal and then elevated up to 15. Currently remains intubated and sedated. Lactic acid has improved, creatinine stable at 1.1. He is having fevers up to 102. Pro-calcitonin mildly elevated 0.35. Requiring higher levels of propofol for sedation. Tube feeds at 16 and giving gentle IV fluids. Ventilator settings with FiO2 40% and a PEEP of 5. EKG shows no significant change from prior. Echo performed which shows somewhat poor quality however ejection fraction 50-55% without significant valvular disease. REVIEW OF SYSTEMS At the time of my exam: Unable to obtain secondary to sedation. PHYSICAL EXAMINATION Vital signs reviewed. CONSTITUTIONAL: No apparent distress, ill appearing, intubated and sedated HEENT: Head is normocephalic. Pupils are equal, round. Sclerae anicteric. Mucous membranes of the mouth are moist. No JVD. No carotid bruit. CHEST EXAMINATION: Lungs are clear to auscultation. No chest wall tenderness is noted on palpation or with deep breathing. HEART EXAMINATION: Regular rate and rhythm. S1, S2 heard. No murmurs, gallops or rub. ABDOMEN: Soft, nontender. Positive bowel sounds. EXTREMITIES: 2+ peripheral pulses, no lower extremity edema and no calf tenderness. NEUROLOGIC EXAMINATION: Patient is sedated on vent ASSESSMENT 1. Acute on chronic respiratory failure, intubated mainly for AMS 2. Altered mental status 3. Paroxysmal atrial fibrillation initially RVR currently sinus rhythm 4. Coronary artery disease with history of prior PCI 5. Non-STEMI troponin up to 15, unclear type I versus type II mechanism 6. Shock requiring vasopressors, suspected septic shock without obvious source 7. Lactic acidosis 8. Concern of possible carotid artery stenosis PLAN Patient with presentation of altered mental status, shock, fevers more concerning for sepsis. He was however noted to be in A. fib with mild RVR which would not explain degree of shock. Currently in sinus rhythm and still remains on vasopressors. He is still having fevers. He does however have elevated tro ponins and possibility of component of cardiogenic shock however echo shows predominantly preserved EF 50-55% this is much less likely. Recommend therapeutic anticoagulation for both non-STEMI as well as atrial fibrillation and we will use the Lovenox 1 mg/kg twice a day. Continue supportive care. If some ambiguity in presentation may consider right and left heart catheterization however mainly appears sepsis at this point and continue supportive care. Objective - Vital Signs Vital signs: Vital Signs Temp 95.7 F L 09/13/21 04:00 Pulse 67 09/13/21 07:00 Resp 22 09/13/21 07:00 BP 137/72 09/13/21 07:00 Pulse Ox 100 09/13/21 07:00 FiO2 40 09/13/21 07:30 Intake & Output 09/12/21 09/13/21 09/13/21 18:59 06:59 18:59 Intake Total 3236.054 3008.003 153 Output Total 340 855 40 Balance 2896.054 2153.003 113 Weight 107.3 kg 110.1 kg Intake: IV 1833 1836 153 Sodium Chloride 0.9% 1, 1800 1800 150 000 ml @ 150 mls/hr IV . Q6H40M [facility] Rx#:[id number] pressure bag 33 36 3 Intake, IV Titration 1323.054 924.003 Amount Amiodarone 450 mg In 250 41.945 Dextrose 5% in Water 250 ml @ 0.5 MG/MIN 16.667 mls/hr IV .Q15H [facility] Rx#: [id number] Norepinephrine 4 mg In 298.077 Sodium Chloride 0.9% 250 ml @ 0.05 MCG/KG/MIN 19. 01 mls/hr IV .[id number] [facility] Rx#:[id number] Norepinephrine 8 mg In 90.283 336.282 Sodium Chloride 0.9% 250 ml @ 0.05 MCG/KG/MIN 10. 381 mls/hr IV .Q24H [facility] Rx#:[id number] fentaNYL (PF). 1,000 mcg 100 In Sodium Chloride 0.9% 80 ml @ 0.5 MCG/KG/HR 4. 99 mls/hr IV .Q20H3M [facility] Rx#:[id number] propofoL 1,000 mg In 584.694 545.776 Empty Bag 1 bag @ 5 MCG/ KG/MIN 2.994 mls/hr IV . Q24H [facility] Rx#:[id number] Tube Feeding 50 158 Other 30 90 Output: Urine 340 855 40 Other: Voiding Method Indwelling Catheter Indwelling Catheter # Bowel Movements 1 ABP, PAP, CO, CI - Last Documented Arterial Blood Pressure 109/57 - Labs CBC & Chem 7: 09/13/21 04:15 09/13/21 04:15 Labs: Abnormal Lab Results - Last 24 Hours (Table) 09/12/21 09/12/21 09/12/21 Range/Units 05:05 05:05 05:05 WBC (3.8-10.6) k/uL RBC (4.30-5.90) m/uL Hgb (13.0-17.5) gm/dL Hct (39.0-53.0) % Plt Count (150-450) k/uL Lymphocytes # (1.0-4.8) k/uL ABG pH (7.35-7.45) ABG pCO2 (35-45) mmHg ABG pO2 (83-108) mmHg ABG HCO3 (21-25) mmol/L ABG O2 Saturation (94-97) % Sodium 131 L (137-145) mmol/L Potassium 3.3 L (3.5-5.1) mmol/L Chloride (98-107) mmol/L Carbon Dioxide 19 L (22-30) mmol/L Glucose 190 H (74-99) mg/dL POC Glucose (mg/dL) (75-99) mg/dL Calcium 7.3 L (8.4-10.2) mg/dL Magnesium (1.6-2.3) mg/dL Creatine Kinase 1846 H* (35-257) U/L Triglycerides 541.00 H (0.00-149.00) mg/dL HDL Cholesterol 30.50 L (40.00-60.00) mg/dL Procalcitonin 0.35 H (0.02-0.09) ng/mL 09/12/21 09/12/21 09/12/21 Range/Units 11:32 17:49 23:52 WBC (3.8-10.6) k/uL RBC (4.30-5.90) m/uL Hgb (13.0-17.5) gm/dL Hct (39.0-53.0) % Plt Count (150-450) k/uL Lymphocytes # (1.0-4.8) k/uL ABG pH (7.35-7.45) ABG pCO2 (35-45) mmHg ABG pO2 (83-108) mmHg ABG HCO3 (21-25) mmol/L ABG O2 Saturation (94-97) % Sodium (137-145) mmol/L Potassium (3.5-5.1) mmol/L Chloride (98-107) mmol/L Carbon Dioxide (22-30) mmol/L Glucose (74-99) mg/dL POC Glucose (mg/dL) 186 H 173 H 184 H (75-99) mg/dL Calcium (8.4-10.2) mg/dL Magnesium (1.6-2.3) mg/dL Creatine Kinase (35-257) U/L Triglycerides (0.00-149.00) mg/dL HDL Cholesterol (40.00-60.00) mg/dL Procalcitonin (0.02-0.09) ng/mL 09/13/21 09/13/21 09/13/21 Range/Units 04:15 04:15 05:17 WBC 3.5 L (3.8-10.6) k/uL RBC 3.83 L (4.30-5.90) m/uL Hgb 12.0 L (13.0-17.5) gm/dL Hct 34.9 L (39.0-53.0) % Plt Count 114 L (150-450) k/uL Lymphocytes # 0.8 L (1.0-4.8) k/uL ABG pH (7.35-7.45) ABG pCO2 (35-45) mmHg ABG pO2 (83-108) mmHg ABG HCO3 (21-25) mmol/L ABG O2 Saturation (94-97) % Sodium 133 L (137-145) mmol/L Potassium 3.3 L (3.5-5.1) mmol/L Chloride 110 H (98-107) mmol/L Carbon Dioxide 17 L (22-30) mmol/L Glucose 154 H (74-99) mg/dL POC Glucose (mg/dL) 158 H (75-99) mg/dL Calcium 7.0 L (8.4-10.2) mg/dL Magnesium 1.5 L (1.6-2.3) mg/dL Creatine Kinase (35-257) U/L Triglycerides (0.00-149.00) mg/dL HDL Cholesterol (40.00-60.00) mg/dL Procalcitonin (0.02-0.09) ng/mL 09/13/21 Range/Units 05:27 WBC (3.8-10.6) k/uL RBC (4.30-5.90) m/uL Hgb (13.0-17.5) gm/dL Hct (39.0-53.0) % Plt Count (150-450) k/uL Lymphocytes # (1.0-4.8) k/uL ABG pH 7.34 L (7.35-7.45) ABG pCO2 34 L (35-45) mmHg ABG pO2 145 H (83-108) mmHg ABG HCO3 18 L (21-25) mmol/L ABG O2 Saturation 98.8 H (94-97) % Sodium (137-145) mmol/L Potassium (3.5-5.1) mmol/L Chloride (98-107) mmol/L Carbon Dioxide (22-30) mmol/L Glucose (74-99) mg/dL POC Glucose (mg/dL) (75-99) mg/dL Calcium (8.4-10.2) mg/dL Magnesium (1.6-2.3) mg/dL Creatine Kinase (35-257) U/L Triglycerides (0.00-149.00) mg/dL HDL Cholesterol (40.00-60.00) mg/dL Procalcitonin (0.02-0.09) ng/mL Microbiology - Last 24 Hours (Table) 09/11/21 01:05 Blood Culture - Preliminary Blood No Growth after 48 hours 09/11/21 00:50 Blood Culture - Preliminary Blood No Growth after 48 hours 09/12/21 01:00 Sputum Culture - Preliminary Sputum 09/11/21 11:54 CSF Gram Stain - Preliminary Cerebral Spinal Fluid CSF Culture - Preliminary
--- NOTE | 2021-09-13 08:41 | XR ---
EXAMINATION TYPE: XR chest 1V portable DATE OF EXAM: 09/13/2021 COMPARISON: 09/12/2021 INDICATION: Tube placement TECHNIQUE: Single frontal view of the chest is obtained. FINDINGS: The heart size is normal. The pulmonary vasculature is normal. There is silhouetting the left diaphragm. Small left pleural effusion appears to be developing. The endotracheal tube tip is above roseanne. Nasogastric tube transverses the thorax with tip in the le ft upper quadrant of the abdomen. Left central venous catheter tip is in the superior vena cava regio n. IMPRESSION: 1. Developing small left pleural effusion. 2. Lines and catheters discussed above.
--- NOTE | 2021-09-13 08:50 | P.PN ---
Subjective Progress Note Date: 09/13/21 75-year-old male patient seen in the emergency department because of altered mentation and fever. The patient is unable to volunteer any history. Reviewed the records. Discussed the case with the various consultants. In summary, the patient has been feeling weak, had falls and he has not been feeling well over the past few days. He also reports some cough and generalized weakness. No chest pain. No pleurisy. No hemoptysis. No neck pain. No neck stiffness. No skin rashes. In the ED, the patient was found to have a temperature of 102.8 and he was quite tachycardic. He was confused than he was unable to volunteer any information. Blood work showed a white cell count of 5.8 with a hemoglobin of 14.1 and the sodium level was 133 with a BUN of 16 and a creatinine of 0.8. Initial lactic acid level was 7.3 and the patient was given a total of 2 L of IV fluids in the subsequent lactic acid level came down to 3.9. Total bilirubin was 1.4 with AST of 50 and ALT of 56 and a normal alkaline phosphatase. Troponin was at 0.013 and subsequent level came back at 2.3 consistent with acute non-ST segment elevation myocardial infarction. UA showed 6 RBCs, bacteria was present, however, the total number of WBCs were only 2. The patient +3 protein, +4 glucose and +1 ketones. Note that the patient also had a negative coronary testing. Influenza screen was also negative. Chest x-ray s howed negative abnormalities. CAT scan of the abdomen and pelvis also showed negative abnormalities. There was some subsegmental atelectatic changes in lung bases bilaterally. Alcohol level was negative. Urine drug screen has not been done. Lumbar puncture was treated on this patient and the result is still pending for now. In the ED, the patient was started on IV fluids. The patient is currently on normal saline at the rate of 130s's an hour. The patient was given IV cefepime and IV vancomycin. The patient was also started on IV heparin regarding the acute non-STEMI. The patient's cardiac rhythm was also in A. fib RVR and the patient was started on a Cardizem drip for rate control at 5 mg an hour. Upon further inspection, the patient had a previous left knee surgery probably an arthroplasty. The knee was slightly swollen and there was no tenderness or warmth or any drainage. He also had a healing sacral ulcer with some limited erythema. No evidence of any cellulitis or draining wound in the back area. He is known to have multiple medical problems and comorbidities inc luding previous history of coronary artery disease, previous coronary intervention and stenting back in November 2019 involving the mid RCA and the patient also has hypertension, hypertensive heart disease, hyperlipidemia, diabetes mellitus type 2, diabetic peripheral neuropathy, lumbar spondylosis wi th chronic pain requiring epidural injections and previous ablations, prostate cancer with a previous radiation therapy and the patient has had previous history of MSSA septic arthritis of the left knee. He is known to have also erectile dysfunction and peripheral neuropathy and peripheral vascular disease. On today's evaluation of 09/12/2021, the patient is being seen in intensive care unit. The patient was seen in consultation yesterday in the emergency. The patient was altered, febrile, septic looking, and the lumbar puncture was negative for bacterial meningitis. The patient was covered with broad-spectrum antibiotics and following that the patient was brought into the intensive care unit. During the course of the ICU stay, the patient developed an acute non-ST segment elevation myocardial infarction. The troponin peaked at 15. EKG is still in normal sinus rhythm and his EKG was showing an atrial fibrillation with rapid ventricular response and apparently the patient converted into normal sinus rhythm. Noted the patient was covered with IV heparin at a time of admission. Nevertheless, yesterday, the patient became acutely unresponsive, apparently was noted to be aphasic and flaccid on the right side. A code stroke was initiated. The patient was given a CTA of the head that showed no acute abnormalities. There was no evidence of any acute bleed. This was essentially a negative CT angiogram of the brain. There was some 75% stenosis of the origin of the left internal carotid artery and 30% on the right. The CAT scan showed no evidence of any aneurysms or vascular injuries. At that point, IV heparin was discontinued. The Doppler of the carotids from today showed no evidence of any hemodynamic stenosis of the proximal internal carotid arteries. In any rate, the patient became quite lethargic and unresponsive. To protect his airways, the patient was intubated and placed on a mechanical ventilator. Overnight, he was started on propofol and the dose was gradually increased is currently up to 75 mcg/kg per minute. He briefly required fentanyl and currently is off the fentanyl. He is deeply sedated for now. He is not withdrawing to deep painful stimulation. Pupils are about 2 mm in size, sluggishly reactive to light. No Babinski. No clonus. He is on a mechanical ventilator on assist control mode at the rate of 22, tidal volume of 400, FiO2 of 40% with a PEEP of 5. No significant orotracheal secretions. The chest x- ray from today showing no acute abnormalities. ET tube is in a good location. No airspace disease and there is some minimal infiltration/atelectasis of the left lower lobe. The blood gases from today showed a pH of 7.39 with a pCO2 of 33 and pO2 of 192 and this was on FiO2 of 50%. Rest of the blood work shows a sodium of 131, potassium of 3.3, bicarb of 19, creatinine 1.1, triglyceride was elevated at 541, blood sugars of 207 the white cell count and 6.4 with a hemoglobin of 12.9. This CSF analysis showed some elevation in the protein which is up 216, glucose was also had 116, the white cell count in the CSF was only 3 and the Gram stain was negative. No seizure activity has been noted. No skin rashes. No swelling in the left knee. No open wounds or sores at this point in time. He remains on a combination of cefepime and vancomycin. Cultures are all negative. This morning he is afebrile. His T-max was 102 from at 1 AM. 09/13/2021, I'm seeing the patient in intensive care unit. He remains intubated on mechanical ventilator. This morning, he remains off of a fall which is running at 75 mcg/kg per minute and the patient is on a low-dose fentanyl treated adequately sedated for now. No seizure activity has been noted. He is deeply sedated and a sedation holiday is to be performed today. No new cultures are available. Due to concerns of HSV encephalitis, I started the patient ye sterday on IV acyclovir pending HSV by PCR in the CSF. This has not resulted yet. The patient In terms of his respiratory status, the patient is on a mechanical ventilator. The patient this morning is on a mechanical ventilator assist control mode at the rate of 22, tidal volume is at 400 with a pack of 40 and a PEEP of 5. Chest x-ray shows some left basilar atelectatic changes. Triple-lumen catheter in the left IJ is in a good location. No evidence of any pneumothorax. OG tube is also in good location. The blood gases from today shows a pH of 7.34 with a pCO2 of 34 and pO2 of 145 and this was on FiO2 of 40%. Peak airway pressure is at 18. No significant orotracheal secretions. He modynamically, the patient is stable on no pressors. The patient is afebrile. Affect patient became somewhat hypothermic and earlier this morning his temperature dropped down to 95.7. He does have some external warmers applied. As such, he hasn't developed any fever since yesterday. He is covered with a combination of IV acyclovir, IV cefepime and IV vancomycin. Orthopedic surgery evaluated the left knee and as expected, there is no evidence of any septic arthritis involving the left knee. The patient had negative blood cultures. The white cell count is at 3.5 with a hemoglobin of 12 and a platelet count of 114. The rest of the blood work shows a sodium of 133, potassium is at 3.3 and he is to be replaced and the BUN of 18 with a creatinine of 1.1. Blood sugar is at 154. Calcium is at 7. Magnesium is to be replaced at 1.5. The patient's CPK level from yesterday was 1846 and a troponin peaked at 16. Urine drug screen was negative. Echocardiogram was also completed and the patient was found to have a preserved LV function. No significant valvular abnormalities. The patient had a technically difficult echo due to poor windows. Artery function with estimated to be normally at around 55%. EEG of the brain was also done yesterday that showed encephalopathy as the patient was on propofol high- dose. There was moderate to severe encephalopathy medication induced related to propofol and fentanyl. No active seizures noted. Cardiac rhythm is sinus for now. The patient is on Lovenox for cardiology therapeutic doses of 100 mg subcu every 12 hours. He is on minimal amount of pressors with levo at 0.06 mcg/kg per minute and this can be easily weaned off. No other significant events otherwise since yesterday. Objective - Vital Signs Vital signs: Vital Signs Temp 95.7 F L 09/13/21 04:00 Pulse 67 09/13/21 07:00 Resp 22 09/13/21 07:00 BP 137/72 09/13/21 07:00 Pulse Ox 100 09/13/21 07:00 FiO2 40 09/13/21 07:30 Intake & Output 09/12/21 09/13/21 09/13/21 18:59 06:59 18:59 Intake Total 3236.054 3008.003 245.057 Output Total 340 855 40 Balance 2896.054 2153.003 205.057 Weight 107.3 kg 110.1 kg Intake: IV 1833 1836 153 Sodium Chloride 0.9% 1, 1800 1800 150 000 ml @ 150 mls/hr IV . Q6H40M [facility] Rx#:[id number] pressure bag 33 36 3 Intake, IV Titration 1323.054 924.003 92.057 Amount Amiodarone 450 mg In 250 41.945 Dextrose 5% in Water 250 ml @ 0.5 MG/MIN 16.667 mls/hr IV .Q15H [facility] Rx#: [id number] Norepinephrine 4 mg In 298.077 Sodium Chloride 0.9% 250 ml @ 0.05 MCG/KG/MIN 19. 01 mls/hr IV .[id number] [facility] Rx#:[id number] Norepinephrine 8 mg In 90.283 336.282 Sodium Chloride 0.9% 250 ml @ 0.05 MCG/KG/MIN 10. 381 mls/hr IV .Q24H [facility] Rx#:[id number] fentaNYL (PF). 1,000 mcg 100 In Sodium Chloride 0.9% 80 ml @ 0.5 MCG/KG/HR 4. 99 mls/hr IV .Q20H3M [facility] Rx#:[id number] propofoL 1,000 mg In 584.694 545.776 92.057 Empty Bag 1 bag @ 5 MCG/ KG/MIN 2.994 mls/hr IV . Q24H [facility] Rx#:[id number] Tube Feeding 50 158 Other 30 90 Output: Urine 340 855 40 Other: Voiding Method Indwelling Catheter Indwelling Catheter # Bowel Movements 1 ABP, PAP, CO, CI - Last Documented Arterial Blood Pressure 109/57 - Exam General: This is 75-year-old male who appears to be in severely ill. The patient is currently sedated with propofol and he is currently intubated on a mechanical ventilator. Orotracheal and orogastric tube are both in place. The patient seems to be quite successful mechanical ventilator. Head exam was generally normal. There was no scleral icterus or corneal arcus. Mucous membranes were moist. Neck was supple and without jugular venous distension, thyromegaly, or carotid bruits. Carotids were easily palpable bilaterally. There was no adenopathy. The patient does not have any neck stiffness or meningeal signs at this point in t chaitanya.Supple, no JVP, normal carotid upstroke bilaterally, no lymphadenopathy. Chest: Decreased breath sounds at the bases, few rhonchi, no extremity wheezes, no chest wall tenderness, no intercostal retractions. Heart: First heart sound is normal, second heart sound is normal there is systolic ejection murmur 2/6 left sternal border. Abdomen: Soft, nontender, nondistended, positive bowel sounds, no hepatosplenomegaly Extremities: There is no edema no calf tenderness DP + 1 bilaterally, left knee with large dressing in place. The patient has undergone previous left knee arthroplasty. Left knee is slightly swollen compared to right. Nevertheless, there is no fluid or erythema involving the joint. Upon passive range of motion, no significant pain and is associated Skin: There is a stage II decubitus ulcer in the coccyx area with current wound dressing as per infectious disease. No open wounds or sores. No evidence of any cellulitis. No drainage. Neurologic examination: Patient is intubated, on a mechanical ventilator and he is deeply sedated. Neurologic exam is suboptimal at this point in time. Does not withdraw to any painful stimulation. No Babinski. No clonus. Pupils are equal and reactive around 2-3 mm in size. No facial asymmetry. No neck stiffness. No meningeal signs. No nystagmus. No preferential gaze. - Labs CBC & Chem 7: 09/13/21 04:15 09/13/21 04:15 Labs: Abnormal Lab Results - Last 24 Hours (Table) 09/12/21 09/12/21 09/12/21 Range/Units 05:05 05:05 05:05 WBC (3.8-10.6) k/uL RBC (4.30-5.90) m/uL Hgb (13.0-17.5) gm/dL Hct (39.0-53.0) % Plt Count (150-450) k/uL Lymphocytes # (1.0-4.8) k/uL ABG pH (7.35-7.45) ABG pCO2 (35-45) mmHg ABG pO2 (83-108) mmHg ABG HCO3 (21-25) mmol/L ABG O2 Saturation (94-97) % Sodium 131 L (137-145) mmol/L Potassium 3.3 L (3.5-5.1) mmol/L Chloride (98-107) mmol/L Carbon Dioxide 19 L (22-30) mmol/L Glucose 190 H (74-99) mg/dL POC Glucose (mg/dL) (75-99) mg/dL Calcium 7.3 L (8.4-10.2) mg/dL Magnesium (1.6-2.3) mg/dL Creatine Kinase 1846 H* (35-257) U/L Triglycerides 541.00 H (0.00-149.00) mg/dL HDL Cholesterol 30.50 L (40.00-60.00) mg/dL Procalcitonin 0.35 H (0.02-0.09) ng/mL 09/12/21 09/12/21 09/12/21 Range/Units 11:32 17:49 23:52 WBC (3.8-10.6) k/uL RBC (4.30-5.90) m/uL Hgb (13.0-17.5) gm/dL Hct (39.0-53.0) % Plt Count (150-450) k/uL Lymphocytes # (1.0-4.8) k/uL ABG pH (7.35-7.45) ABG pCO2 (35-45) mmHg ABG pO2 (83-108) mmHg ABG HCO3 (21-25) mmol/L ABG O2 Saturation (94-97) % Sodium (137-145) mmol/L Potassium (3.5-5.1) mmol/L Chloride (98-107) mmol/L Carbon Dioxide (22-30) mmol/L Glucose (74-99) mg/dL POC Glucose (mg/dL) 186 H 173 H 184 H (75-99) mg/dL Calcium (8.4-10.2) mg/dL Magnesium (1.6-2.3) mg/dL Creatine Kinase (35-257) U/L Triglycerides (0.00-149.00) mg/dL HDL Cholesterol (40.00-60.00) mg/dL Procalcitonin (0.02-0.09) ng/mL 09/13/21 09/13/21 09/13/21 Range/Units 04:15 04:15 05:17 WBC 3.5 L (3.8-10.6) k/uL RBC 3.83 L (4.30-5.90) m/uL Hgb 12.0 L (13.0-17.5) gm/dL Hct 34.9 L (39.0-53.0) % Plt Count 114 L (150-450) k/uL Lymphocytes # 0.8 L (1.0-4.8) k/uL ABG pH (7.35-7.45) ABG pCO2 (35-45) mmHg ABG pO2 (83-108) mmHg ABG HCO3 (21-25) mmol/L ABG O2 Saturation (94-97) % Sodium 133 L (137-145) mmol/L Potassium 3.3 L (3.5-5.1) mmol/L Chloride 110 H (98-107) mmol/L Carbon Dioxide 17 L (22-30) mmol/L Glucose 154 H (74-99) mg/dL POC Glucose (mg/dL) 158 H (75-99) mg/dL Calcium 7.0 L (8.4-10.2) mg/dL Magnesium 1.5 L (1.6-2.3) mg/dL Creatine Kinase (35-257) U/L Triglycerides (0.00-149.00) mg/dL HDL Cholesterol (40.00-60.00) mg/dL Procalcitonin (0.02-0.09) ng/mL 09/13/21 Range/Units 05:27 WBC (3.8-10.6) k/uL RBC (4.30-5.90) m/uL Hgb (13.0-17.5) gm/dL Hct (39.0-53.0) % Plt Count (150-450) k/uL Lymphocytes # (1.0-4.8) k/uL ABG pH 7.34 L (7.35-7.45) ABG pCO2 34 L (35-45) mmHg ABG pO2 145 H (83-108) mmHg ABG HCO3 18 L (21-25) mmol/L ABG O2 Saturation 98.8 H (94-97) % Sodium (137-145) mmol/L Potassium (3.5-5.1) mmol/L Chloride (98-107) mmol/L Carbon Dioxide (22-30) mmol/L Glucose (74-99) mg/dL POC Glucose (mg/dL) (75-99) mg/dL Calcium (8.4-10.2) mg/dL Magnesium (1.6-2.3) mg/dL Creatine Kinase (35-257) U/L Triglycerides (0.00-149.00) mg/dL HDL Cholesterol (40.00-60.00) mg/dL Procalcitonin (0.02-0.09) ng/mL Microbiology - Last 24 Hours (Table) 09/11/21 01:05 Blood Culture - Preliminary Blood No Growth after 48 hours 09/11/21 00:50 Blood Culture - Preliminary Blood No Growth after 48 hours 09/12/21 01:00 Sputum Culture - Preliminary Sputum 09/11/21 11:54 CSF Gram Stain - Preliminary Cerebral Spinal Fluid CSF Culture - Preliminary Assessment and Plan Plan: Altered mental status on that investigation. CAT scan of the brain was negative. CT angiogram done yesterday was negative. Meningeal signs are absent in the patient's CSF is showing elevated protein. Rule out viral encephalitis. The patient is currently on IV acyclovir pending HSV by PCR. Neurologist on the case. EEG is consistent with moderate to severe encephalopathy consistent with drug-induced encephalopathy as the patient is on propofol for now. At the same time, the patient is sedated with a combination of propofol and fentanyl. He'll be given a sedation holiday today and his neuro status will be evaluated. Sepsis, currently under investigation. The patient came in with altered mentation and fever and lactic acidosis. Lumbar puncture was performed in the emergency department and results are still pending for now. Urine and blood cultures of been sent and the patient is covered with empiric antibiotics with cefepime and vancomycin. Patient was also given IV fluids. Lactic acid levels are improving. Meningitis was suspected and the patient was given a lumbar puncture. He still pending for now. No meningeal signs. Consider underlying encephalitis. COVID 19 testing is been negative. Influenza A and B were also negative. The exact source of the sepsis is not clear. Doubt septic joint. Doubt meningitis. No evidence of pneumonia. All of the cultures are negative thus far and the patient is on a combination of cefepime and vancomycin. No changes in terms of his septic workup and also evaluated the patient and there is no indication of any septic arthritis. Cultures are all negative thus far. The patient is minimally hypotensive on low-dose pressors for now and this needs to be weaned off Ventilator-dependent respiratory failure, the patient did not have any significant hypoxemia or hypercapnia. The patient was intubated to protect his airway and currently is on a mechanical ventilator. Chest x-rays revealing some left basilar atelectasis Acute atrial fibrillation with rapid ventricular response, currently in sinus rhythm patient remains in sinus rhythm for now. Patient is also on Lovenox therapeutic doses and Lopressor at a dose of 25 mg twice a day. Acute lactic acidosis, improving acute non-ST segment elevation myocardial infarction and a troponin peaked at 15 , echo cardiac exam shows a preserved LV function. Coronary artery disease with previous coronary stenting involving the RCA back in July 2020. 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 Plan Continue vent support, no ventilator changes for today Monitor fever pattern IV to KVO and wean off the pressors and discontinue Continue same antibiotic coverage includes vancomycin and cefepime and continue acyclovir for possibility of HSV encephalitis EEG was noted Continue metoprolol Continue Lovenox subcu therapeutic doses per cardiology Consulted neurology and infectious disease Initiate enteral feeding for nutritional support IV Protonix I'm going to give this patient a sedation holiday and reevaluate his mental status and will have further discussion with neurology and the rest of the medical team. Condition is critical we will continue to follow make further recommendations based on his progress. This is a critically care evaluation that was done and more than 30 minutes. Time with Patient: Greater than 30
[2021-09-13] MEDS: CEFEPIME 2 GM in SODIUM CHLORIDE 0.9% 100 ML IVPB SCH ×2 (10:10→17:49)
[2021-09-13] MEDS: ENOXAPARIN 100 MG/ML SYRINGE SQ SCH ×2 (10:11→20:20)
[2021-09-13] MEDS: ASPIRIN 325 MG TAB PO SCH (10:11)
[2021-09-13] MEDS: CHLORHEXIDINE GLUCONATE 15 ML CUP MUCOUS MEM SCH ×2 (10:11→20:20)
[2021-09-13] MEDS: METOPROLOL TARTRATE 25 MG TAB PO SCH ×2 (10:11→20:20)
[2021-09-13] MEDS: PANTOPRAZOLE 40 MG/10 ML VIAL IVP SCH (10:11)
[2021-09-13] MEDS: NOREPINEPHRINE 8 MG in SODIUM CHLORIDE 0.9% 250 ML IV SCH (10:13)
[2021-09-13 12:02] LABS: Glucose,Whole Blood 160 mg/dL (75-99)
--- NOTE | 2021-09-13 13:22 | P.PN ---
Subjective Progress Note Date: 09/13/21 HISTORY OF PRESENT ILLNESS: This is a 75-year-old male patient of mine with previous medical history significant for coronary artery disease status post percutaneous coronary interv ention and stent placement last one was in 12/13/2019 in the mid RCA at that time he was found to have a totally occluded obtuse marginal one of the LCx, with collaterals from the PDA, hypertension and hypertensive cardiovascular disease, hyperlipidemia, diabetes mellitus type 2, diabetic polyneuropathy, 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 as well as radio frequency ablation, prostate cancer status post radiation therapy, MSSA septic arthritis left knee. Patient apparently had a fall out of bed and was found on the bedroom floor and patient was transferred to [facility] emergency center for evaluation. Prior to the fall, patient has not been feel ing well for at least a few days and continued to worsen. He was reported to have a cough with weakness. Patient was taking [id number] cough medication without improvement. Initially temperature was 98.9, heart rate 99, blood pressure 145/109, pulse ox 93% on room air. Temperature max as morning is 102.8 with heart rate of 127. WBC 5.8, hemoglobin 14.1, platelet count 138. INR 1.1. Sodium 133, potassium 3.8, chloride 98, CO2 19, BUN 16 creatinine 0.88. Blood sugar 207. Lactic acid 7.3 and repeat 3.9. Calcium 9.2. Total bilirubin 1.4, AST 50, ALT 56, alkaline phosphatase 50. Troponin 0.013 followed by 2.370. Urinalysis was clear, blood moderate, RBC 6. Bacteria many. Serum alcohol level less than 10. Chronic virus PCR not detected. Influenza A not detected. Influenza B not detected. CAT scan of the brain revealed mild atrophy and chronic small vessel ischemia. No change compared to old exam. No acute intracranial abnormality. Chest x-ray, pelvis x-ray, cervical spine x-ray and abdominal and pelvic CAT scan have been completed but unable to open reports. Patient is seen today in the emergency center waiting for a bed on the cardiac stepdown unit. He has been started on heparin drip, cefepime and vancomycin and consults are in place with cardiology, infectious disease and neurology. Patient is status post diagnostic lumbar puncture completed by anesthesiology 09/12:patient went into acute respiratory failure and for airway protection he was intubated last night, and he is currently on before meals mode with a tidal volume of 450 FiO2 of 40% and PEEP of 5, his oxygen saturations. Gout, patient converted from atrial fibrillation to a normal sinus rhythm currently on amiodarone drip at 0.5 mg/m, he has been using the Levophed as well as propofol drip, for sedation, patient was also started on a cyclic severe per ICU for further coverage of possible viral meningitis, patient is to be maintained on vancomycin as well as cefepime as well, his urine output is good, he continues to be critical at this point in time. 09/13: Patient remains in the intensive care unit, currently elevated before meals mode 22 FiO2 40% and PEEP of 5 , patient continues to be sedated, had a sedation holiday today and now back on fentanyl and propofol, continues to be on IV antibiotic cefepime and vancomycin, HSV PCR pending, continues with Acyclovir 900 mg IV piggyback every 8 hours, monitor the patient very closely, prognosis continues to be guarded. REVIEW OF SYSTEMS: patient is currently sedated on mechanical ventilation couldn't perform a complete review of system Constitutional: Documented fever, chills, no night sweats, reports fatigue , positive for weight loss. HEENT: No headache. No blurred vision or double vision, no loss of vision. No loss of Hearing, no ringing in the ears, no dizziness. No nasal drainage or co ngestion. No epistaxis. No sore throat. Respiratory: No shortness of breath, reported cough, no sputum production. No wheezing. Reports dyspnea with activity. Cardiovascular: No chest pain, no lower extremity edema. No palpitations. No paroxysmal nocturnal dyspnea. No orthopnea. No lightheadedness or dizziness. No syncopal episodes. Gastrointestinal: Reports no abdominal pain. No nausea, vomiting. No diarrhea. No constipation. No bloody or tarry stools reports loss of appetite. Genitourinary: No dysuria, increased frequency, urgency. No urinary retention. Musculoskeletal: Positive for myalgias. positive for muscle weakness, Positive for gait dysfunction, no frequent falls, positive for low back pain . Integumentary: Sacral decubitus ulcer with pain, no lesions. No rash or pruritus. brpositive for bruising. No change in hair or nails. Neurologic: No aphasia. No facial droop. No change in mentation. No head injury. No headache. No paralysis. No paresthesia. Psychiatric: No depression. No anxiety. No mood swings. Endocrine: No abnormal blood sugars. No weight change. PHYSICAL EXAMINATION: General: This is 75-year-old male who is intubated on mechanical ventilation and sedated. HEENT: Head is atraumatic, normocephalic, there orogastric tube in place, and ET tube in place Neck: Supple, no JVP, normal carotid upstroke bilaterally, no lymphadenopathy. Chest: Decreased breath sounds at the bases, few rhonchi, no expiratory wheezes, no chest wall tenderness, no intercostal retractions. Heart: First heart sound is normal, second heart sound is normal there is systolic ejection murmur 2/6 left sternal border. Abdomen: Soft, nontender, nondistended, positive bowel sounds, no hepatosplenomegaly Extremities: There is no edema no calf tenderness DP + 1 bilaterally. Neurologic examination: patient is currently sedated on mechanical ventilation. ASSESSMENT AND PLAN: 1. vent dependent respiratory failure due to sepsis. The source of which is not quite delineated. Patient did have a lumbar puncture that showed minimal protein pleocytosis therefore he was started on a cyclic severe 900 mg IV piggyback every 8 hours for possible HSV encephalitis, patient has been covered with IV anabiotic in the form of vancomycin and cefepime, urine culture blood cultures are pending, if was a being COVID-19 is negative. Continue with current vent setting, continue with aggressive treatment, lactic acid is improving, continue to monitor the patient in the intensive care unit, infectious disease, pulmonary/critical care, cardiology, and neurology are following. Computed tomography scan of the brain is negative, CT angiography is negative, lumbar puncture showed pleocytosis for possible HSV encephalitis. 2. Non-ST elevated myocardial infarction. Patient started on heparin drip, monitor the patient very closely, continue aspirin 325 minute gram once every day, echogram still pending at the time of dictation. 3. Metabolic encephalopathy of unclear etiology. 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 4. History of MSSA left knee joint infection status post stage II revision,stable. 5. Severe lactic acidosis. Patient is status post 3 L of IV fluids, continue protocol.lactic acid is improving. 6. A. fib with RVR, new onset paroxysmal atrial fibrillation. continue heparin drip for now, continue amiodarone drip at 0.5 mg/m.patient can be switched to oral amiodarone tomorrow morning. 7. Coronary artery disease status post Left heart catheterization with PCI of the RCA on 07/30/2020. Continue patient on aspirin 325 mg daily. 8. Hypertension and hypertensive cardiovascular disease. patient is currently hypotensive discontinue metoprolol for now 9. Hyperlipidemia. hold off statin for now. 10. Diabetes mellitus type 2.hold off oral medication and start the patient on the sliding scale insulin or insulin drip if needed. 11. History of prostate cance status post rotation. Stable at this time. 12. 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 13. History of Urinary retention. currently has a Shelley catheter. 14. DVT prophylaxis. Heparin drip 15. GI prophylaxis. Protonix 40 mg IV push daily. 16. Patient is full code. 17. prognosis is very guarded. Objective - Vital Signs Vital signs: Vital Signs Temp 96.8 F L 09/13/21 08:00 Pulse 89 09/13/21 10:00 Resp 22 09/13/21 10:00 BP 137/72 09/13/21 07:00 Pulse Ox 100 09/13/21 10:00 FiO2 40 09/13/21 11:12 Intake & Output 09/12/21 09/13/21 09/13/21 18:59 06:59 18:59 Intake Total 3236.054 3008.003 971.723 Output Total 340 855 210 Balance 2896.054 2153.003 761.723 Weight 107.3 kg 110.1 kg Intake: IV 1833 1836 672 Acyclovir Sodium 900 mg 250 In Sodium Chloride 0.9% 250 ml @ 268 mls/hr IVPB Q8HR [facility] Rx#:[id number] Cefepime 2 gm In Sodium 50 Chloride 0.9% 100 ml @ 25 mls/hr IVPB Q12H [facility] Rx# :[id number] Sodium Chloride 0.9% 1, 1800 1800 360 000 ml @ 20 mls/hr IV . Q24H [facility] Rx#:[id number] pressure bag 33 36 12 Intake, IV Titration 1323.054 924.003 205.723 Amount Amiodarone 450 mg In 250 41.945 Dextrose 5% in Water 250 ml @ 0.5 MG/MIN 16.667 mls/hr IV .Q15H [facility] Rx#: [id number] Norepinephrine 4 mg In 298.077 Sodium Chloride 0.9% 250 ml @ 0.05 MCG/KG/MIN 19. 01 mls/hr IV .[id number] [facility] Rx#:[id number] Norepinephrine 8 mg In 90.283 336.282 42.565 Sodium Chloride 0.9% 250 ml @ 0.05 MCG/KG/MIN 10. 381 mls/hr IV .Q24H [facility] Rx#:[id number] fentaNYL (PF). 1,000 mcg 100 In Sodium Chloride 0.9% 80 ml @ 0.5 MCG/KG/HR 4. 99 mls/hr IV .Q20H3M [facility] Rx#:[id number] propofoL 1,000 mg In 584.694 545.776 163.158 Empty Bag 1 bag @ 5 MCG/ KG/MIN 2.994 mls/hr IV . Q24H [facility] Rx#:[id number] Tube Feeding 50 158 64 Other 30 90 30 Output: Urine 340 855 210 Other: Voiding Method Indwelling Catheter Indwelling Catheter # Bowel Movements 1 ABP, PAP, CO, CI - Last Documented Arterial Blood Pressure 110/48 - Labs CBC & Chem 7: 09/13/21 04:15 09/13/21 04:15 Labs: Abnormal Lab Results - Last 24 Hours (Table) 09/12/21 09/12/21 09/12/21 Range/Units 05:05 05:05 11:32 WBC (3.8-10.6) k/uL RBC (4.30-5.90) m/uL Hgb (13.0-17.5) gm/dL Hct (39.0-53.0) % Plt Count (150-450) k/uL Lymphocytes # (1.0-4.8) k/uL ABG pH (7.35-7.45) ABG pCO2 (35-45) mmHg ABG pO2 (83-108) mmHg ABG HCO3 (21-25) mmol/L ABG O2 Saturation (94-97) % Sodium (137-145) mmol/L Potassium (3.5-5.1) mmol/L Chloride (98-107) mmol/L Carbon Dioxide (22-30) mmol/L Glucose (74-99) mg/dL POC Glucose (mg/dL) 186 H (75-99) mg/dL Calcium (8.4-10.2) mg/dL Magnesium (1.6-2.3) mg/dL Creatine Kinase 1846 H* (35-257) U/L Procalcitonin 0.35 H (0.02-0.09) ng/mL 09/12/21 09/12/21 09/13/21 Range/Units 17:49 23:52 04:15 WBC 3.5 L (3.8-10.6) k/uL RBC 3.83 L (4.30-5.90) m/uL Hgb 12.0 L (13.0-17.5) gm/dL Hct 34.9 L (39.0-53.0) % Plt Count 114 L (150-450) k/uL Lymphocytes # 0.8 L (1.0-4.8) k/uL ABG pH (7.35-7.45) ABG pCO2 (35-45) mmHg ABG pO2 (83-108) mmHg ABG HCO3 (21-25) mmol/L ABG O2 Saturation (94-97) % Sodium (137-145) mmol/L Potassium (3.5-5.1) mmol/L Chloride (98-107) mmol/L Carbon Dioxide (22-30) mmol/L Glucose (74-99) mg/dL POC Glucose (mg/dL) 173 H 184 H (75-99) mg/dL Calcium (8.4-10.2) mg/dL Magnesium (1.6-2.3) mg/dL Creatine Kinase (35-257) U/L Procalcitonin (0.02-0.09) ng/mL 09/13/21 09/13/21 09/13/21 Range/Units 04:15 05:17 05:27 WBC (3.8-10.6) k/uL RBC (4.30-5.90) m/uL Hgb (13.0-17.5) gm/dL Hct (39.0-53.0) % Plt Count (150-450) k/uL Lymphocytes # (1.0-4.8) k/uL ABG pH 7.34 L (7.35-7.45) ABG pCO2 34 L (35-45) mmHg ABG pO2 145 H (83-108) mmHg ABG HCO3 18 L (21-25) mmol/L ABG O2 Saturation 98.8 H (94-97) % Sodium 133 L (137-145) mmol/L Potassium 3.3 L (3.5-5.1) mmol/L Chloride 110 H (98-107) mmol/L Carbon Dioxide 17 L (22-30) mmol/L Glucose 154 H (74-99) mg/dL POC Glucose (mg/dL) 158 H (75-99) mg/dL Calcium 7.0 L (8.4-10.2) mg/dL Magnesium 1.5 L (1.6-2.3) mg/dL Creatine Kinase (35-257) U/L Procalcitonin (0.02-0.09) ng/mL Microbiology - Last 24 Hours (Table) 09/12/21 23:50 Genital Culture - Preliminary Penis 09/11/21 11:54 CSF Gram Stain - Preliminary Cerebral Spinal Fluid CSF Culture - Preliminary 09/12/21 01:00 Gram Stain - Preliminary Sputum Sputum Culture - Preliminary 09/11/21 01:05 Blood Culture - Preliminary Blood No Growth after 48 hours 09/11/21 00:50 Blood Culture - Preliminary Blood No Growth after 48 hours
[2021-09-13 17:54] LABS: Glucose,Whole Blood 159 mg/dL (75-99)
[2021-09-13] MEDS: fentaNYL (PF). 1,000 MCG in SODIUM CHLORIDE 0.9% 80 ML IV SCH (20:10)
--- NOTE | 2021-09-13 22:29 | P.PN ---
Subjective Progress Note Date: 09/12/21 Principal diagnosis: Fever/sepsis Patient is a 76-year-old male with multiple comorbidities was brought into the hospital after pending the patient did fell out of the bed and was found on the bedroom floor patient subsequently noticed to have a fever and he did went into respiratory distress requiring intubation. On today's evaluation that is 09/12/2021, the patient did spike a fever of 102F after midnight, the patient is afebrile since then patient is currently on Levophed for blood pressure support no significant purulent secretion through the ET diarrhea or any other changes reported by the nursing staff Objective - Vital Signs Vital signs: Vital Signs Temp 97.6 F 09/12/21 08:00 Pulse 74 09/12/21 10:00 Resp 22 09/12/21 10:00 BP 114/62 09/12/21 10:00 Pulse Ox 100 09/12/21 10:00 FiO2 40 09/12/21 08:14 Intake & Output 09/11/21 09/12/21 09/12/21 18:59 06:59 18:59 Intake Total 260 6032.777 9299.978 Output Total 2625 525 75 Balance -2365 934.672 8445.978 Weight 99.79 kg 107.3 kg 107.3 kg Intake: IV 260 1160 609 Sodium Chloride 0.9% 1, 260 260 000 ml @ 130 mls/hr IV . Q7H42M [facility] Rx#:[id number] Sodium Chloride 0.9% 1, 900 600 000 ml @ 150 mls/hr IV . Q6H40M [facility] Rx#:[id number] pressure bag 9 Intake, IV Titration 325.108 583.978 Amount Heparin Sod,Pork in 0.45% 84.122 NaCl 25,000 unit In 0.45 % NaCl 1 250ml.bag @ 18 UNITS/KG/HR 17.962 mls/hr IV .[id number] [facility] Rx#: [id number] Norepinephrine 4 mg In 140.737 298.077 Sodium Chloride 0.9% 250 ml @ 0.05 MCG/KG/MIN 19. 01 mls/hr IV .P51H96S [facility] Rx#:[id number] propofoL 1,000 mg In 100.249 285.901 Empty Bag 1 bag @ 5 MCG/ KG/MIN 2.994 mls/hr IV . Q24H [facility] Rx#:[id number] Output: Urine 2627 525 75 Other: Voiding Method Indwelling Catheter Indwelling Catheter Indwelling Catheter ABP, PAP, CO, CI - Last Documented Arterial Blood Pressure 102/49 - Exam GENERAL DESCRIPTION: An elderly male intubated on the vent RESPIRATORY SYSTEM: Unlabored breathing , decreased breath sounds at bases HEART: S1 S2 regular rate and rhythm , ABDOMEN: Soft , no tenderness EXTREMITIES: No edema feet - Labs CBC & Chem 7: 09/13/21 04:15 09/13/21 04:15 Labs: Abnormal Lab Results - Last 24 Hours (Table) 09/11/21 09/11/21 09/11/21 Range/Units 11:54 17:49 19:48 RBC (4.30-5.90) m/uL Hgb (13.0-17.5) gm/dL Hct (39.0-53.0) % Plt Count (150-450) k/uL Lymphocytes # (1.0-4.8) k/uL APTT (22.0-30.0) sec ABG pH (7.35-7.45) ABG pCO2 (35-45) mmHg ABG pO2 (83-108) mmHg ABG HCO3 (21-25) mmol/L ABG O2 Saturation (94-97) % Sodium (137-145) mmol/L Potassium (3.5-5.1) mmol/L Carbon Dioxide (22-30) mmol/L Glucose (74-99) mg/dL POC Glucose (mg/dL) 167 H (75-99) mg/dL Plasma Lactic Acid Rob (0.7-2.0) mmol/L Calcium (8.4-10.2) mg/dL Total Bilirubin (0.2-1.3) mg/dL AST (17-59) U/L CK-MB (CK-2) (0.0-2.4) ng/mL Troponin I 14.000 H* (0.000-0.034) ng/mL Total Protein (6.3-8.2) g/dL Triglycerides (0.00-149.00) mg/dL HDL Cholesterol (40.00-60.00) mg/dL CSF Glucose 116 H (40-70) mg/dL CSF Total Protein 116 H (12-60) mg/dL 09/11/21 09/11/21 09/11/21 Range/Units 19:48 19:48 22:50 RBC (4.30-5.90) m/uL Hgb (13.0-17.5) gm/dL Hct (39.0-53.0) % Plt Count (150-450) k/uL Lymphocytes # (1.0-4.8) k/uL APTT >200.0 H* (22.0-30.0) sec ABG pH 7.54 H (7.35-7.45) ABG pCO2 23 L (35-45) mmHg ABG pO2 62 L (83-108) mmHg ABG HCO3 20 L (21-25) mmol/L ABG O2 Saturation (94-97) % Sodium (137-145) mmol/L Potassium (3.5-5.1) mmol/L Carbon Dioxide (22-30) mmol/L Glucose (74-99) mg/dL POC Glucose (mg/dL) (75-99) mg/dL Plasma Lactic Acid Rob 2.9 H* (0.7-2.0) mmol/L Calcium (8.4-10.2) mg/dL Total Bilirubin (0.2-1.3) mg/dL AST (17-59) U/L CK-MB (CK-2) (0.0-2.4) ng/mL Troponin I (0.000-0.034) ng/mL Total Protein (6.3-8.2) g/dL Triglycerides (0.00-149.00) mg/dL HDL Cholesterol (40.00-60.00) mg/dL CSF Glucose (40-70) mg/dL CSF Total Protein (12-60) mg/dL 09/11/21 09/11/21 09/11/21 Range/Units 23:19 23:19 23:19 RBC (4.30-5.90) m/uL Hgb (13.0-17.5) gm/dL Hct (39.0-53.0) % Plt Count 121 L (150-450) k/uL Lymphocytes # 0.7 L (1.0-4.8) k/uL APTT (22.0-30.0) sec ABG pH (7.35-7.45) ABG pCO2 (35-45) mmHg ABG pO2 (83-108) mmHg ABG HCO3 (21-25) mmol/L ABG O2 Saturation (94-97) % Sodium 133 L (137-145) mmol/L Potassium 3.0 L (3.5-5.1) mmol/L Carbon Dioxide 17 L (22-30) mmol/L Glucose 190 H (74-99) mg/dL POC Glucose (mg/dL) (75-99) mg/dL Plasma Lactic Acid Rob (0.7-2.0) mmol/L Calcium 7.9 L (8.4-10.2) mg/dL Total Bilirubin 1.4 H (0.2-1.3) mg/dL AST 101 H (17-59) U/L CK-MB (CK-2) 13.5 H (0.0-2.4) ng/mL Troponin I 15.000 H* (0.000-0.034) ng/mL Total Protein 5.8 L (6.3-8.2) g/dL Triglycerides (0.00-149.00) mg/dL HDL Cholesterol (40.00-60.00) mg/dL CSF Glucose (40-70) mg/dL CSF Total Protein (12-60) mg/dL 09/12/21 09/12/21 09/12/21 Range/Units 00:02 01:23 01:32 RBC (4.30-5.90) m/uL Hgb (13.0-17.5) gm/dL Hct (39.0-53.0) % Plt Count (150-450) k/uL Lymphocytes # (1.0-4.8) k/uL APTT (22.0-30.0) sec ABG pH (7.35-7.45) ABG pCO2 (35-45) mmHg ABG pO2 393 H (83-108) mmHg ABG HCO3 (21-25) mmol/L ABG O2 Saturation 100.0 H (94-97) % Sodium (137-145) mmol/L Potassium (3.5-5.1) mmol/L Carbon Dioxide (22-30) mmol/L Glucose (74-99) mg/dL POC Glucose (mg/dL) 178 H 169 H (75-99) mg/dL Plasma Lactic Acid Rob (0.7-2.0) mmol/L Calcium (8.4-10.2) mg/dL Total Bilirubin (0.2-1.3) mg/dL AST (17-59) U/L CK-MB (CK-2) (0.0-2.4) ng/mL Troponin I (0.000-0.034) ng/mL Total Protein (6.3-8.2) g/dL Triglycerides (0.00-149.00) mg/dL HDL Cholesterol (40.00-60.00) mg/dL CSF Glucose (40-70) mg/dL CSF Total Protein (12-60) mg/dL 09/12/21 09/12/21 09/12/21 Range/Units 03:15 05:05 05:05 RBC 4.25 L (4.30-5.90) m/uL Hgb 12.9 L (13.0-17.5) gm/dL Hct 38.4 L (39.0-53.0) % Plt Count (150-450) k/uL Lymphocytes # (1.0-4.8) k/uL APTT 33.2 H (22.0-30.0) sec ABG pH (7.35-7.45) ABG pCO2 (35-45) mmHg ABG pO2 (83-108) mmHg ABG HCO3 (21-25) mmol/L ABG O2 Saturation (94-97) % Sodium 131 L (137-145) mmol/L Potassium 3.3 L (3.5-5.1) mmol/L Carbon Dioxide 19 L (22-30) mmol/L Glucose 190 H (74-99) mg/dL POC Glucose (mg/dL) (75-99) mg/dL Plasma Lactic Acid Rob (0.7-2.0) mmol/L Calcium 7.3 L (8.4-10.2) mg/dL Total Bilirubin (0.2-1.3) mg/dL AST (17-59) U/L CK-MB (CK-2) (0.0-2.4) ng/mL Troponin I (0.000-0.034) ng/mL Total Protein (6.3-8.2) g/dL Triglycerides 541.00 H (0.00-149.00) mg/dL HDL Cholesterol 30.50 L (40.00-60.00) mg/dL CSF Glucose (40-70) mg/dL CSF Total Protein (12-60) mg/dL 09/12/21 09/12/21 09/12/21 Range/Units 05:43 05:49 11:32 RBC (4.30-5.90) m/uL Hgb (13.0-17.5) gm/dL Hct (39.0-53.0) % Plt Count (150-450) k/uL Lymphocytes # (1.0-4.8) k/uL APTT (22.0-30.0) sec ABG pH (7.35-7.45) ABG pCO2 33 L (35-45) mmHg ABG pO2 192 H (83-108) mmHg ABG HCO3 20 L (21-25) mmol/L ABG O2 Saturation 99.1 H (94-97) % Sodium (137-145) mmol/L Potassium (3.5-5.1) mmol/L Carbon Dioxide (22-30) mmol/L Glucose (74-99) mg/dL POC Glucose (mg/dL) 207 H 186 H (75-99) mg/dL Plasma Lactic Acid Rob (0.7-2.0) mmol/L Calcium (8.4-10.2) mg/dL Total Bilirubin (0.2-1.3) mg/dL AST (17-59) U/L CK-MB (CK-2) (0.0-2.4) ng/mL Troponin I (0.000-0.034) ng/mL Total Protein (6.3-8.2) g/dL Triglycerides (0.00-149.00) mg/dL HDL Cholesterol (40.00-60.00) mg/dL CSF Glucose (40-70) mg/dL CSF Total Protein (12-60) mg/dL Microbiology - Last 24 Hours (Table) 09/12/21 01:00 Sputum Culture - Preliminary Sputum 09/11/21 11:54 CSF Gram Stain - Preliminary Cerebral Spinal Fluid CSF Culture - Preliminary 09/11/21 00:50 Blood Culture - Preliminary Blood No Growth after 24 hours 09/11/21 01:05 Blood Culture - Preliminary Blood No Growth after 24 hours Assessment and Plan (1) Sepsis Current Visit: Yes Status: Acute Code(s): A41.9 - SEPSIS, UNSPECIFIED ORGANISM SNOMED Code(s): 10907457 Plan: 1patient presented to hospital with mental status changes and fever and this patient did have a fall patient did have initial work-up for the fever including a UA chest x-ray CT abdominal pelvis has been negative patient did have history of left knee septic arthritis however the knee do not have any significant swelling or redness with minimal warmth with concern for possible [employer] infection for which the patient did have LP completed , CSF did have some elevated protein and glucose was elevated however the white count was not significantly elevated 2patient to continue empiric vancomycin and cefepime , acyclovir has been added to continue while waiting for HSV DNA by PCR to be completed 3Aquacel dressing to the sacral wound changed to 48-hour. Time with Patient: Less than 30
--- NOTE | 2021-09-13 22:30 | P.PN ---
Subjective Progress Note Date: 09/13/21 Principal diagnosis: Fever/sepsis Patient is a 76-year-old male with multiple comorbidities was brought into the hospital after pending the patient did fell out of the bed and was found on the bedroom floor patient subsequently noticed to have a fever and he did went into respiratory distress requiring intubation. On today's evaluation that is 09/13/2021, the patient is afebrile today, the patient remains to be intubated on the vent however FiO2 is stable, no signif icant purulent secretion through the ET diarrhea or any other changes reported by the nursing staff Objective - Vital Signs Vital signs: Vital Signs Temp 95.7 F L 09/13/21 04:00 Pulse 67 09/13/21 07:00 Resp 22 09/13/21 07:00 BP 137/72 09/13/21 07:00 Pulse Ox 100 09/13/21 07:00 FiO2 40 09/13/21 07:30 Intake & Output 09/12/21 09/13/21 09/13/21 18:59 06:59 18:59 Intake Total 3236.054 3008.003 245.057 Output Total 340 855 40 Balance 2896.054 2153.003 205.057 Weight 107.3 kg 110.1 kg Intake: IV 1833 1836 153 Sodium Chloride 0.9% 1, 1800 1800 150 000 ml @ 150 mls/hr IV . Q6H40M [facility] Rx#:[id number] pressure bag 33 36 3 Intake, IV Titration 1323.054 924.003 92.057 Amount Amiodarone 450 mg In 250 41.945 Dextrose 5% in Water 250 ml @ 0.5 MG/MIN 16.667 mls/hr IV .Q15H [facility] Rx#: [id number] Norepinephrine 4 mg In 298.077 Sodium Chloride 0.9% 250 ml @ 0.05 MCG/KG/MIN 19. 01 mls/hr IV .U22S00L [facility] Rx#:[id number] Norepinephrine 8 mg In 90.283 336.282 Sodium Chloride 0.9% 250 ml @ 0.05 MCG/KG/MIN 10. 381 mls/hr IV .Q24H [facility] Rx#:[id number] fentaNYL (PF). 1,000 mcg 100 In Sodium Chloride 0.9% 80 ml @ 0.5 MCG/KG/HR 4. 99 mls/hr IV .Q20H3M [facility] Rx#:[id number] propofoL 1,000 mg In 584.694 545.776 92.057 Empty Bag 1 bag @ 5 MCG/ KG/MIN 2.994 mls/hr IV . Q24H [facility] Rx#:[id number] Tube Feeding 50 158 Other 30 90 Output: Urine 340 855 40 Other: Voiding Method Indwelling Catheter Indwelling Catheter # Bowel Movements 1 ABP, PAP, CO, CI - Last Documented Arterial Blood Pressure 109/57 - Exam GENERAL DESCRIPTION: An elderly male intubated on the vent RESPIRATORY SYSTEM: Unlabored breathing , decreased breath sounds at bases HEART: S1 S2 regular rate and rhythm , ABDOMEN: Soft , no tenderness EXTREMITIES: No edema feet - Labs CBC & Chem 7: 09/13/21 04:15 09/13/21 04:15 Labs: Abnormal Lab Results - Last 24 Hours (Table) 09/12/21 09/12/21 09/12/21 Range/Units 05:05 05:05 05:05 WBC (3.8-10.6) k/uL RBC (4.30-5.90) m/uL Hgb (13.0-17.5) gm/dL Hct (39.0-53.0) % Plt Count (150-450) k/uL Lymphocytes # (1.0-4.8) k/uL ABG pH (7.35-7.45) ABG pCO2 (35-45) mmHg ABG pO2 (83-108) mmHg ABG HCO3 (21-25) mmol/L ABG O2 Saturation (94-97) % Sodium 131 L (137-145) mmol/L Potassium 3.3 L (3.5-5.1) mmol/L Chloride (98-107) mmol/L Carbon Dioxide 19 L (22-30) mmol/L Glucose 190 H (74-99) mg/dL POC Glucose (mg/dL) (75-99) mg/dL Calcium 7.3 L (8.4-10.2) mg/dL Magnesium (1.6-2.3) mg/dL Creatine Kinase 1846 H* (35-257) U/L Triglycerides 541.00 H (0.00-149.00) mg/dL HDL Cholesterol 30.50 L (40.00-60.00) mg/dL Procalcitonin 0.35 H (0.02-0.09) ng/mL 09/12/21 09/12/21 09/12/21 Range/Units 11:32 17:49 23:52 WBC (3.8-10.6) k/uL RBC (4.30-5.90) m/uL Hgb (13.0-17.5) gm/dL Hct (39.0-53.0) % Plt Count (150-450) k/uL Lymphocytes # (1.0-4.8) k/uL ABG pH (7.35-7.45) ABG pCO2 (35-45) mmHg ABG pO2 (83-108) mmHg ABG HCO3 (21-25) mmol/L ABG O2 Saturation (94-97) % Sodium (137-145) mmol/L Potassium (3.5-5.1) mmol/L Chloride (98-107) mmol/L Carbon Dioxide (22-30) mmol/L Glucose (74-99) mg/dL POC Glucose (mg/dL) 186 H 173 H 184 H (75-99) mg/dL Calcium (8.4-10.2) mg/dL Magnesium (1.6-2.3) mg/dL Creatine Kinase (35-257) U/L Triglycerides (0.00-149.00) mg/dL HDL Cholesterol (40.00-60.00) mg/dL Procalcitonin (0.02-0.09) ng/mL 09/13/21 09/13/21 09/13/21 Range/Units 04:15 04:15 05:17 WBC 3.5 L (3.8-10.6) k/uL RBC 3.83 L (4.30-5.90) m/uL Hgb 12.0 L (13.0-17.5) gm/dL Hct 34.9 L (39.0-53.0) % Plt Count 114 L (150-450) k/uL Lymphocytes # 0.8 L (1.0-4.8) k/uL ABG pH (7.35-7.45) ABG pCO2 (35-45) mmHg ABG pO2 (83-108) mmHg ABG HCO3 (21-25) mmol/L ABG O2 Saturation (94-97) % Sodium 133 L (137-145) mmol/L Potassium 3.3 L (3.5-5.1) mmol/L Chloride 110 H (98-107) mmol/L Carbon Dioxide 17 L (22-30) mmol/L Glucose 154 H (74-99) mg/dL POC Glucose (mg/dL) 158 H (75-99) mg/dL Calcium 7.0 L (8.4-10.2) mg/dL Magnesium 1.5 L (1.6-2.3) mg/dL Creatine Kinase (35-257) U/L Triglycerides (0.00-149.00) mg/dL HDL Cholesterol (40.00-60.00) mg/dL Procalcitonin (0.02-0.09) ng/mL 09/13/21 Range/Units 05:27 WBC (3.8-10.6) k/uL RBC (4.30-5.90) m/uL Hgb (13.0-17.5) gm/dL Hct (39.0-53.0) % Plt Count (150-450) k/uL Lymphocytes # (1.0-4.8) k/uL ABG pH 7.34 L (7.35-7.45) ABG pCO2 34 L (35-45) mmHg ABG pO2 145 H (83-108) mmHg ABG HCO3 18 L (21-25) mmol/L ABG O2 Saturation 98.8 H (94-97) % Sodium (137-145) mmol/L Potassium (3.5-5.1) mmol/L Chloride (98-107) mmol/L Carbon Dioxide (22-30) mmol/L Glucose (74-99) mg/dL POC Glucose (mg/dL) (75-99) mg/dL Calcium (8.4-10.2) mg/dL Magnesium (1.6-2.3) mg/dL Creatine Kinase (35-257) U/L Triglycerides (0.00-149.00) mg/dL HDL Cholesterol (40.00-60.00) mg/dL Procalcitonin (0.02-0.09) ng/mL Microbiology - Last 24 Hours (Table) 09/11/21 01:05 Blood Culture - Preliminary Blood No Growth after 48 hours 09/11/21 00:50 Blood Culture - Preliminary Blood No Growth after 48 hours 09/12/21 01:00 Sputum Culture - Preliminary Sputum 09/11/21 11:54 CSF Gram Stain - Preliminary Cerebral Spinal Fluid CSF Culture - Preliminary Assessment and Plan (1) Sepsis Current Visit: Yes Status: Acute Code(s): A41.9 - SEPSIS, UNSPECIFIED ORGANISM SNOMED Code(s): 75851527 Plan: 1patient presented to hospital with mental status changes and fever and this patient did have a fall patient did have initial work-up for the fever including a UA chest x-ray CT abdominal pelvis has been negative patient did have history of left knee septic arthritis however the knee do not have any significant swelling or redness with minimal warmth with concern for possible [employer] infection for which the patient did have LP completed , CSF did have some elevated protein and glucose was elevated however the white count was not significantly elevated 2patient fever has resolved and cultures are negative, patient to to continue empiric vancomycin and cefepime , acyclovir while waiting for HSV DNA by PCR to be completed 3Aquacel dressing to the sacral wound changed to 48-hour. Time with Patient: Less than 30
[2021-09-13 23:51] LABS: Glucose,Whole Blood 152 mg/dL (75-99)
[2021-09-14] MEDS: ACYCLOVIR SODIUM 900 MG in SODIUM CHLORIDE 0.9% 250 ML IVPB SCH ×3 (00:21→15:05)
[2021-09-14] MEDS: INSULIN ASPART (NovoLOG) 100 UNIT/ML VIAL SQ SCH ×4 (00:21→17:34)
[2021-09-14] MEDS: CEFEPIME 2 GM in SODIUM CHLORIDE 0.9% 100 ML IVPB SCH ×3 (01:25→17:50)
[2021-09-14 05:54] LABS: ABG Base Excess -5.2 mmol/L; ABG HCO3 20 mmol/L (21-25); ABG Oxygen Saturation 97.4 % (94-97); ABG PCO2 37 mmHg (35-45); ABG PH 7.34 (7.35-7.45); ABG PO2 79 mmHg (83-108); Allen Test Performed? Yes
[2021-09-14] MEDS ORDERED: VANCOMYCIN TROUGH DUE 1 EACH MISC MISCELLANE ONE (07:00)
[2021-09-14 07:16] LABS: Glucose,Whole Blood 126 mg/dL (75-99)
[2021-09-14 07:19] LABS: Calcium 7.4 mg/dL (8.4-10.2); Potassium 3.5 mmol/L (3.5-5.1)
[2021-09-14 07:21] LABS: Basophils % (A) 0 %; Eosinophils % (A) 0 %; HCT 35.6 % (39.0-53.0); HGB 11.7 gm/dL (13.0-17.5); Lymphocytes # (A) 0.6 k/uL (1.0-4.8); Lymphocytes % (A) 15 %; MCH 30.4 pg (25.0-35.0); MCHC 32.9 g/dL (31.0-37.0); MCV 92.3 fL (80.0-100.0); Mean Platelet Volume 9.1; Monocytes # (A) 0.2 k/uL (0-1.0); Monocytes % (A) 6 %; Neutrophils # (A) 2.9 k/uL (1.3-7.7); Neutrophils % (A) 77 %; Platelet Count 123 k/uL (150-450); RBC 3.86 m/uL (4.30-5.90); RDW 14.9 % (11.5-15.5); WBC 3.8 k/uL (3.8-10.6)
[2021-09-14] MEDS: NOREPINEPHRINE 8 MG in SODIUM CHLORIDE 0.9% 250 ML IV SCH (07:56)
--- NOTE | 2021-09-14 08:13 | XR ---
EXAMINATION TYPE: XR chest 1V portable DATE OF EXAM: 09/14/2021 COMPARISON: 09/05/2021 INDICATION: Tube placement TECHNIQUE: Single frontal view of the chest is obtained. FINDINGS: The heart size is normal. The pulmonary vasculature is normal. There may be a small left pleural effusion. Left central venous catheter is present with the tip in t he superior vena cava region Endotracheal tube tip is above the roseanne. Nasogastric tube is present, the distal tip is not identif ied due to penetration IMPRESSION: 1. Small left pleural effusion. 2. Lines and catheters discussed above
--- NOTE | 2021-09-14 08:22 | P.PN ---
Subjective Progress Note Date: 09/14/21 75-year-old male patient seen in the emergency department because of altered mentation and fever. The patient is unable to volunteer any history. Reviewed the records. Discussed the case with the various consultants. In summary, the patient has been feeling weak, had falls and he has not been feeling well over the past few days. He also reports some cough and generalized weakness. No chest pain. No pleurisy. No hemoptysis. No neck pain. No neck stiffness. No skin rashes. In the ED, the patient was found to have a temperature of 102.8 and he was quite tachycardic. He was confused than he was unable to volunteer any information. Blood work showed a white cell count of 5.8 with a hemoglobin of 14.1 and the sodium level was 133 with a BUN of 16 and a creatinine of 0.8. Initial lactic acid level was 7.3 and the patient was given a total of 2 L of IV fluids in the subsequent lactic acid level came down to 3.9. Total bilirubin was 1.4 with AST of 50 and ALT of 56 and a normal alkaline phosphatase. Troponin was at 0.013 and subsequent level came back at 2.3 consistent with acute non-ST segment elevation myocardial infarction. UA showed 6 RBCs, bacteria was present, however, the total number of WBCs were only 2. The patient +3 protein, +4 glucose and +1 ketones. Note that the patient also had a negative coronary testing. Influenza screen was also negative. Chest x-ray s howed negative abnormalities. CAT scan of the abdomen and pelvis also showed negative abnormalities. There was some subsegmental atelectatic changes in lung bases bilaterally. Alcohol level was negative. Urine drug screen has not been done. Lumbar puncture was treated on this patient and the result is still pending for now. In the ED, the patient was started on IV fluids. The patient is currently on normal saline at the rate of 130s's an hour. The patient was given IV cefepime and IV vancomycin. The patient was also started on IV heparin regarding the acute non-STEMI. The patient's cardiac rhythm was also in A. fib RVR and the patient was started on a Cardizem drip for rate control at 5 mg an hour. Upon further inspection, the patient had a previous left knee surgery probably an arthroplasty. The knee was slightly swollen and there was no tenderness or warmth or any drainage. He also had a healing sacral ulcer with some limited erythema. No evidence of any cellulitis or draining wound in the back area. He is known to have multiple medical problems and comorbidities inc luding previous history of coronary artery disease, previous coronary intervention and stenting back in November 2019 involving the mid RCA and the patient also has hypertension, hypertensive heart disease, hyperlipidemia, diabetes mellitus type 2, diabetic peripheral neuropathy, lumbar spondylosis wi th chronic pain requiring epidural injections and previous ablations, prostate cancer with a previous radiation therapy and the patient has had previous history of MSSA septic arthritis of the left knee. He is known to have also erectile dysfunction and peripheral neuropathy and peripheral vascular disease. On today's evaluation of 09/12/2021, the patient is being seen in intensive care unit. The patient was seen in consultation yesterday in the emergency. The patient was altered, febrile, septic looking, and the lumbar puncture was negative for bacterial meningitis. The patient was covered with broad-spectrum antibiotics and following that the patient was brought into the intensive care unit. During the course of the ICU stay, the patient developed an acute non-ST segment elevation myocardial infarction. The troponin peaked at 15. EKG is still in normal sinus rhythm and his EKG was showing an atrial fibrillation with rapid ventricular response and apparently the patient converted into normal sinus rhythm. Noted the patient was covered with IV heparin at a time of admission. Nevertheless, yesterday, the patient became acutely unresponsive, apparently was noted to be aphasic and flaccid on the right side. A code stroke was initiated. The patient was given a CTA of the head that showed no acute abnormalities. There was no evidence of any acute bleed. This was essentially a negative CT angiogram of the brain. There was some 75% stenosis of the origin of the left internal carotid artery and 30% on the right. The CAT scan showed no evidence of any aneurysms or vascular injuries. At that point, IV heparin was discontinued. The Doppler of the carotids from today showed no evidence of any hemodynamic stenosis of the proximal internal carotid arteries. In any rate, the patient became quite lethargic and unresponsive. To protect his airways, the patient was intubated and placed on a mechanical ventilator. Overnight, he was started on propofol and the dose was gradually increased is currently up to 75 mcg/kg per minute. He briefly required fentanyl and currently is off the fentanyl. He is deeply sedated for now. He is not withdrawing to deep painful stimulation. Pupils are about 2 mm in size, sluggishly reactive to light. No Babinski. No clonus. He is on a mechanical ventilator on assist control mode at the rate of 22, tidal volume of 400, FiO2 of 40% with a PEEP of 5. No significant orotracheal secretions. The chest x- ray from today showing no acute abnormalities. ET tube is in a good location. No airspace disease and there is some minimal infiltration/atelectasis of the left lower lobe. The blood gases from today showed a pH of 7.39 with a pCO2 of 33 and pO2 of 192 and this was on FiO2 of 50%. Rest of the blood work shows a sodium of 131, potassium of 3.3, bicarb of 19, creatinine 1.1, triglyceride was elevated at 541, blood sugars of 207 the white cell count and 6.4 with a hemoglobin of 12.9. This CSF analysis showed some elevation in the protein which is up 216, glucose was also had 116, the white cell count in the CSF was only 3 and the Gram stain was negative. No seizure activity has been noted. No skin rashes. No swelling in the left knee. No open wounds or sores at this point in time. He remains on a combination of cefepime and vancomycin. Cultures are all negative. This morning he is afebrile. His T-max was 102 from at 1 AM. 09/13/2021, I'm seeing the patient in intensive care unit. He remains intubated on mechanical ventilator. This morning, he remains off of a fall which is running at 75 mcg/kg per minute and the patient is on a low-dose fentanyl treated adequately sedated for now. No seizure activity has been noted. He is deeply sedated and a sedation holiday is to be performed today. No new cultures are available. Due to concerns of HSV encephalitis, I started the patient ye sterday on IV acyclovir pending HSV by PCR in the CSF. This has not resulted yet. The patient In terms of his respiratory status, the patient is on a mechanical ventilator. The patient this morning is on a mechanical ventilator assist control mode at the rate of 22, tidal volume is at 400 with a pack of 40 and a PEEP of 5. Chest x-ray shows some left basilar atelectatic changes. Triple-lumen catheter in the left IJ is in a good location. No evidence of any pneumothorax. OG tube is also in good location. The blood gases from today shows a pH of 7.34 with a pCO2 of 34 and pO2 of 145 and this was on FiO2 of 40%. Peak airway pressure is at 18. No significant orotracheal secretions. He modynamically, the patient is stable on no pressors. The patient is afebrile. Affect patient became somewhat hypothermic and earlier this morning his temperature dropped down to 95.7. He does have some external warmers applied. As such, he hasn't developed any fever since yesterday. He is covered with a combination of IV acyclovir, IV cefepime and IV vancomycin. Orthopedic surgery evaluated the left knee and as expected, there is no evidence of any septic arthritis involving the left knee. The patient had negative blood cultures. The white cell count is at 3.5 with a hemoglobin of 12 and a platelet count of 114. The rest of the blood work shows a sodium of 133, potassium is at 3.3 and he is to be replaced and the BUN of 18 with a creatinine of 1.1. Blood sugar is at 154. Calcium is at 7. Magnesium is to be replaced at 1.5. The patient's CPK level from yesterday was 1846 and a troponin peaked at 16. Urine drug screen was negative. Echocardiogram was also completed and the patient was found to have a preserved LV function. No significant valvular abnormalities. The patient had a technically difficult echo due to poor windows. Artery function with estimated to be normally at around 55%. EEG of the brain was also done yesterday that showed encephalopathy as the patient was on propofol high- dose. There was moderate to severe encephalopathy medication induced related to propofol and fentanyl. No active seizures noted. Cardiac rhythm is sinus for now. The patient is on Lovenox for cardiology therapeutic doses of 100 mg subcu every 12 hours. He is on minimal amount of pressors with levo at 0.06 mcg/kg per minute and this can be easily weaned off. No other significant events otherwise since yesterday. 09/14/2021, the patient is being seen for a follow-up. The patient remains intubated on a mechanical ventilator. He was given a breathing sedation holiday which essentially failed as the patient's respiration became quite high and the patient was becoming asynchronous with a mechanical ventilator and he did not show any adequate neurologic recovery and he was not following any commands. As such, the sedation holiday was important and the family done today. Meanwhile, the patient remains on a mechanical ventilator. This morning, he is sedated with propofol at the rate of 75 mcg/kg per minute. The patient is currently off fentanyl. He is adequately sedated for now. He remains on an assist-control mode of mechanical ventilation. Tidal volumes of 400 with a rate of 22 and FiO2 of 40% with a PEEP of 5. He is afebrile and hemodynamically is requiring low doses of pressors and the patient is currently on norepinephrine at 0.06 mcg/kg per minute. Adequate urine output. Adequate blood pressure for now. Cultures have been all negative. Awaiting HSV by PCR in the CSF and meanwhile the patient was kept on IV acyclovir. The white cell count is low at 3.8. The cultures been negative. No clear indication for an underlying septic source. The patient was covered with a combination of septic cefepime and vancomycin. The chest x-ray from today shows a left lower lobe atelectasis. No clear-cut airspace disease or consolidation. Blood gases from today shows the patient 7.34 with a pCO2 of 37 and pO2 of 79. BUN is at 40 with a creatinine of 0.9 and his sodium level is at 139. Vancomycin trough was 20.8. The patient is rece iving enteral feeding for nutritional support. The patient is currently on vital high protein at the rate of 16 mL an hour which is at goal. His cardiac rhythm is sinus for now. The patient remains on Lovenox per cardiology therapeutic doses. Echocardiogram showed normal LV dysfunction and the patient has a preserved LV without any valvular disease. The patient had an acute non- STEMI. Troponin peaked at 15. Objective - Vital Signs Vital signs: Vital Signs Temp 98.2 F 09/14/21 04:00 Pulse 73 09/14/21 07:00 Resp 24 09/14/21 07:00 BP 137/72 09/14/21 07:00 Pulse Ox 95 09/14/21 07:00 FiO2 40 09/14/21 07:30 Intake & Output 09/13/21 09/14/21 09/14/21 18:59 06:59 18:59 Intake Total 2300.070 1230.142 39 Output Total 1270 1200 100 Balance 1030.070 30.142 -61 Intake: IV 1486 253 23 Acyclovir Sodium 900 mg 500 In Sodium Chloride 0.9% 250 ml @ 268 mls/hr IVPB Q8HR [facility] Rx#:[id number] Cefepime 2 gm In Sodium 50 Chloride 0.9% 100 ml @ 25 mls/hr IVPB Q12H [facility] Rx# :[id number] Cefepime 2 gm In Sodium 100 Chloride 0.9% 100 ml @ 25 mls/hr IVPB Q8H [facility] Rx#: [id number] Sodium Chloride 0.9% 1, 550 220 20 000 ml @ 20 mls/hr IV . Q24H [facility] Rx#:[id number] Vancomycin 1,500 mg In 250 Sodium Chloride 0.9% 250 ml @ 125 mls/hr IVPB Q16H [facility] Rx#:[id number] pressure bag 36 33 3 Intake, IV Titration 550.070 711.142 Amount Acyclovir Sodium 900 mg 250 In Sodium Chloride 0.9% 250 ml @ 268 mls/hr IVPB Q8HR [facility] Rx#:[id number] Norepinephrine 8 mg In 210.814 89.751 Sodium Chloride 0.9% 250 ml @ 0.05 MCG/KG/MIN 10. 381 mls/hr IV .Q24H [facility] Rx#:[id number] fentaNYL (PF). 1,000 mcg 76.098 In Sodium Chloride 0.9% 80 ml @ 0.5 MCG/KG/HR 4. 99 mls/hr IV .Q20H3M [facility] Rx#:[id number] propofoL 1,000 mg In 263.158 371.391 Empty Bag 1 bag @ 5 MCG/ KG/MIN 2.994 mls/hr IV . Q24H [facility] Rx#:[id number] Tube Feeding 144 176 16 Other 120 90 Output: Urine 1270 1200 100 Other: Voiding Method Indwelling Catheter Indwelling Catheter ABP, PAP, CO, CI - Last Documented Arterial Blood Pressure 102/45 - Exam General: This is 75-year-old male who appears to be in severely ill. The patient is currently sedated with propofol and he is currently intubated on a mechanical ventilator. Orotracheal and orogastric tube are both in place. The patient seems to be quite successful mechanical ventilator. Head exam was generally normal. There was no scleral icterus or corneal arcus. Mucous membranes were moist. Neck was supple and without jugular venous distension, thyromegaly, or carotid bruits. Carotids were easily palpable bilaterally. There was no adenopathy. The patient does not have any neck stiffness or meningeal signs at this point in time.Supple, no JVP, normal carotid upstroke bilaterally, no lymphadenopathy. Chest: Decreased breath sounds at the bases, few rhonchi, no extremity wheezes, no chest wall tenderness, no intercostal retractions. Heart: First heart sound is normal, second heart sound is normal there is systolic ejection murmur 2/6 left sternal border. Abdomen: Soft, nontender, nondistended, positive bowel sounds, no hepatosplenomegaly Extremities: There is no edema no calf tenderness DP + 1 bilaterally, left knee with large dressing in place. The patient has undergone previous left knee arthroplasty. Left knee is slightly swollen compared to right. Nevertheless, there is no fluid or erythema involving the joint. Upon passive range of motion, no significant pain and is associated Skin: There is a stage II decubitus ulcer in the coccyx area with current wound dressing as per infectious disease. No open wounds or sores. No evidence of any cellulitis. No drainage. Neurologic examination: Patient is intubated, on a mechanical ventilator and he is deeply sedated. Neurologic exam is suboptimal at this point in time. Does not withdraw to any painful stimulation. No Babinski. No clonus. Pupils are equal and reactive around 2-3 mm in size. No facial asymmetry. No neck stiffness. No meningeal signs. No nystagmus. No preferential gaze. - Labs CBC & Chem 7: 09/14/21 04:40 09/14/21 04:40 Labs: Abnormal Lab Results - Last 24 Hours (Table) 09/12/21 09/13/21 09/13/21 Range/Units 05:05 12:01 17:53 RBC (4.30-5.90) m/uL Hgb (13.0-17.5) gm/dL Hct (39.0-53.0) % Plt Count (150-450) k/uL Lymphocytes # (1.0-4.8) k/uL ABG pH (7.35-7.45) ABG pO2 (83-108) mmHg ABG HCO3 (21-25) mmol/L ABG O2 Saturation (94-97) % Chloride (98-107) mmol/L Carbon Dioxide (22-30) mmol/L Glucose (74-99) mg/dL POC Glucose (mg/dL) 160 H 159 H (75-99) mg/dL Calcium (8.4-10.2) mg/dL Creatine Kinase 1846 H* (35-257) U/L 09/13/21 09/14/21 09/14/21 Range/Units 23:49 04:40 04:40 RBC 3.86 L (4.30-5.90) m/uL Hgb 11.7 L (13.0-17.5) gm/dL Hct 35.6 L (39.0-53.0) % Plt Count 123 L (150-450) k/uL Lymphocytes # 0.6 L (1.0-4.8) k/uL ABG pH (7.35-7.45) ABG pO2 (83-108) mmHg ABG HCO3 (21-25) mmol/L ABG O2 Saturation (94-97) % Chloride 116 H (98-107) mmol/L Carbon Dioxide 17 L (22-30) mmol/L Glucose 131 H (74-99) mg/dL POC Glucose (mg/dL) 152 H (75-99) mg/dL Calcium 7.4 L (8.4-10.2) mg/dL Creatine Kinase (35-257) U/L 09/14/21 09/14/21 Range/Units 05:28 07:13 RBC (4.30-5.90) m/uL Hgb (13.0-17.5) gm/dL Hct (39.0-53.0) % Plt Count (150-450) k/uL Lymphocytes # (1.0-4.8) k/uL ABG pH 7.34 L (7.35-7.45) ABG pO2 79 L (83-108) mmHg ABG HCO3 20 L (21-25) mmol/L ABG O2 Saturation 97.4 H (94-97) % Chloride (98-107) mmol/L Carbon Dioxide (22-30) mmol/L Glucose (74-99) mg/dL POC Glucose (mg/dL) 126 H (75-99) mg/dL Calcium (8.4-10.2) mg/dL Creatine Kinase (35-257) U/L Microbiology - Last 24 Hours (Table) 09/11/21 01:05 Blood Culture - Preliminary Blood No Growth after 72 hours 09/11/21 00:50 Blood Culture - Preliminary Blood No Growth after 72 hours 09/13/21 12:50 Group A Strep Throat Culture - Preliminary Throat 09/12/21 23:50 Genital Culture - Preliminary Penis 09/11/21 11:54 CSF Gram Stain - Preliminary Cerebral Spinal Fluid CSF Culture - Preliminary 09/12/21 01:00 Gram Stain - Preliminary Sputum Sputum Culture - Preliminary Assessment and Plan Plan: Altered mental status on that investigation. CAT scan of the brain was negative. CT angiogram done yesterday was negative. Meningeal signs are absent in the patient's CSF is showing elevated protein. Rule out viral encephalitis. The patient is currently on IV acyclovir pending HSV by PCR. Neurologist on the case. EEG is consistent with moderate to severe encephalopathy consistent with drug-induced encephalopathy as the patient is on propofol for now. At the same time, the patient is sedated with propofol . The patient failed a sedation holiday yesterday. The family done today and his neuro status will be reevaluated accordingly. May need to repeat a CAT scan of the brain if no reasonable recovery in his mentation on today's evaluation. Neurologist on the case. Awaiting HSV by PCR. Sepsis, currently under investigation. The patient came in with altered mentation and fever and lactic acidosis. Lumbar puncture was performed in the emergency department and results are still pending for now. Urine and blood cul tures of been sent and the patient is covered with empiric antibiotics with cefepime and vancomycin. Patient was also given IV fluids. Lactic acid levels are improving. Meningitis was suspected and the patient was given a lumbar puncture. He still pending for now. No meningeal signs. Consider underlying encephalitis. COVID 19 testing is been negative. Influenza A and B were also negative. The exact source of the sepsis is not clear. Doubt septic joint. Doubt meningitis. No evidence of pneumonia. All of the cultures are negative thus far and the patient is on a combination of cefepime and vancomycin. No changes in terms of his septic workup and also evaluated the patient and there is no indication of any septic arthritis. Cultures are all negative thus far. The patient is minimally hypotensive on low-dose pressors for now and this needs to be weaned off, his condition is essentially unchanged compared to yesterday. The patient remains afebrile pain no significant leukocytosis today. Ventilator-dependent respiratory failure, the patient did not have any significant hypoxemia or hypercapnia. The patient was intubated to protect his airway and currently is on a mechanical ventilator. Chest x-rays revealing some left basilar atelectasis. Chest x-ray from today was noted, blood gases was noted. No major interval change compared to yesterday. Acute atrial fibrillation with rapid ventricular response, currently in sinus rhythm patient remains in sinus rhythm for now. Patient is also on Lovenox therapeutic doses and Lopressor at a dose of 25 mg twice a day. Acute lactic acidosis, improving acute non-ST segment elevation myocardial infarction and a troponin peaked at 15 , echo cardiac exam shows a preserved LV function. Coronary artery disease with previous coronary stenting involving the RCA back in July 2020. 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 I personally do not see the need for vanco EEG was noted Continue metoprolol Continue Lovenox subcu therapeutic doses per cardiology Consulted neurology and infectious disease enteral feeding for nutritional support IV Protonix Repeat sedation holiday and reevaluate his mental status and will have further discussion with neurology and the rest of the medical team. May need to repeat a CAT scan of the brain if if there is inadequate recovered and his neuro status. Condition is critical we will continue to follow make further recommendations based on his progress. This is a critically care evaluation that was done and more than 30 minutes. Time with Patient: Greater than 30
--- NOTE | 2021-09-14 08:29 | P.PN ---
Subjective HISTORY OF PRESENTING ILLNESS This is a 76-year-old gentleman was brought to the hospital with mental status changes and fall. Apparently patient was not feeling well for the last several days and was complaining of generalized weakness. He is currently intubated and most of the information is gathered from chart and production consultant notes and also f rom the nurses. Patient has history of septic arthritis coronary artery disease, hypertension, hypercholesterolemia with previous intervention of the right coronary artery. Patient was in atrial fibrillation on admission and was initially treated with IV Cardizem and subsequent change to IV amiodarone. His converted to sinus rhythm. Patient is currently sedated. Patient apparently not withdrawing with painful stimuli before the sedation. He is a troponin values went up suggestive of non-STEMI. EKG did not reveal any acute ST-T abnormalities. Echocardiogram is requested. Is being followed by neurology, infectious disease and also surgical team. Apparently patient also has carotid disease. From [facility] standpoint, patient is not a candidate for any intervention at this time. We will get an echo Cardec gram to assess LV function. Continue with IV amiodarone. Patient was treated with heparin but was discontinued because of high PTT. That needs to be resumed once feasible. Prognosis is guarded 09/13 Patient seen and examined. Initially was in A. fib however currently sinus rhythm. Noted to be elevated lactic acid and elevating troponins initially normal and then elevated up to 15. Currently remains intubated and sedated. Lactic acid has improved, creatinine stable at 1.1. He is having fevers up to 102. Pro-calcitonin mildly elevated 0.35. Requiring higher levels of propofol for sedation. Tube feeds at 16 and giving gentle IV fluids. Ventilator settings with FiO2 40% and a PEEP of 5. EKG shows no significant change from prior. Echo performed which shows somewhat poor quality however ejection fraction 50-55% without significant valvular disease. 09/14 Patient seen and examined. Patient attempted on weaning yesterday and failed. Remains on norepinephrine at 0.0. He remains in sinus rhythm and no significant atrial fibrillation. Creatinine stable today. Ventilator settings 40% FiO2 and 5 of PEEP. REVIEW OF SYSTEMS At the time of my exam: Unable to obtain secondary to sedation. PHYSICAL EXAMINATION Vital signs reviewed. CONSTITUTIONAL: No apparent distress, ill appearing, intubated and sedated HEENT: Head is normocephalic. Pupils are equal, round. Sclerae anicteric. Mucous membranes of the mouth are moist. No JVD. No carotid bruit. CHEST EXAMINATION: Lungs are clear to auscultation. No chest wall tenderness is noted on palpation or with deep breathing. HEART EXAMINATION: Regular rate and rhythm. S1, S2 heard. No murmurs, gallops or rub. ABDOMEN: Soft, nontender. Positive bowel sounds. EXTREMITIES: 2+ peripheral pulses, no lower extremity edema and no calf tenderness. NEUROLOGIC EXAMINATION: Patient is sedated on vent ASSESSMENT 1. Acute on chronic respiratory failure, intubated mainly for AMS 2. Altered mental status 3. Paroxysmal atrial fibrillation initially RVR currently sinus rhythm 4. Coronary artery disease with history of prior PCI 5. Non-STEMI troponin up to 15, unclear type I versus type II mechanism 6. Shock requiring vasopressors, suspected septic shock without obvious source 7. Lactic acidosis 8. Concern of possible carotid artery stenosis PLAN Suspected shock still from sepsis. Always consideration of cardiogenic however echo shows predominantly preserved EF 50-55%. Non-STEMI may be type II mechanism. May consider ischemic workup pending patient's progress. Continue with high intensity Lovenox for atrial fibrillation as well as for non-STEMI. Continue to monitor neurologic progress. Hopeful extubation of them may consider ischemic workup. Objective - Vital Signs Vital signs: Vital Signs Temp 98.2 F 09/14/21 04:00 Pulse 73 09/14/21 07:00 Resp 24 09/14/21 07:00 BP 137/72 09/14/21 07:00 Pulse Ox 95 09/14/21 07:00 FiO2 40 09/14/21 07:30 Intake & Output 09/13/21 09/14/21 09/14/21 18:59 06:59 18:59 Intake Total 2300.070 1230.142 39 Output Total 1270 1200 100 Balance 1030.070 30.142 -61 Intake: IV 1486 253 23 Acyclovir Sodium 900 mg 500 In Sodium Chloride 0.9% 250 ml @ 268 mls/hr IVPB Q8HR [facility] Rx#:[id number] Cefepime 2 gm In Sodium 50 Chloride 0.9% 100 ml @ 25 mls/hr IVPB Q12H [facility] Rx# :[id number] Cefepime 2 gm In Sodium 100 Chloride 0.9% 100 ml @ 25 mls/hr IVPB Q8H [facility] Rx#: [id number] Sodium Chloride 0.9% 1, 550 220 20 000 ml @ 20 mls/hr IV . Q24H [facility] Rx#:[id number] Vancomycin 1,500 mg In 250 Sodium Chloride 0.9% 250 ml @ 125 mls/hr IVPB Q16H [facility] Rx#:[id number] pressure bag 36 33 3 Intake, IV Titration 550.070 711.142 Amount Acyclovir Sodium 900 mg 250 In Sodium Chloride 0.9% 250 ml @ 268 mls/hr IVPB Q8HR [facility] Rx#:[id number] Norepinephrine 8 mg In 210.814 89.751 Sodium Chloride 0.9% 250 ml @ 0.05 MCG/KG/MIN 10. 381 mls/hr IV .Q24H [facility] Rx#:[id number] fentaNYL (PF). 1,000 mcg 76.098 In Sodium Chloride 0.9% 80 ml @ 0.5 MCG/KG/HR 4. 99 mls/hr IV .Q20H3M [facility] Rx#:[id number] propofoL 1,000 mg In 263.158 371.391 Empty Bag 1 bag @ 5 MCG/ KG/MIN 2.994 mls/hr IV . Q24H [facility] Rx#:[id number] Tube Feeding 144 176 16 Other 120 90 Output: Urine 1270 1200 100 Other: Voiding Method Indwelling Catheter Indwelling Catheter ABP, PAP, CO, CI - Last Documented Arterial Blood Pressure 102/45 - Labs CBC & Chem 7: 09/14/21 04:40 09/14/21 04:40 Labs: Abnormal Lab Results - Last 24 Hours (Table) 09/12/21 09/13/21 09/13/21 Range/Units 05:05 12:01 17:53 RBC (4.30-5.90) m/uL Hgb (13.0-17.5) gm/dL Hct (39.0-53.0) % Plt Count (150-450) k/uL Lymphocytes # (1.0-4.8) k/uL ABG pH (7.35-7.45) ABG pO2 (83-108) mmHg ABG HCO3 (21-25) mmol/L ABG O2 Saturation (94-97) % Chloride (98-107) mmol/L Carbon Dioxide (22-30) mmol/L Glucose (74-99) mg/dL POC Glucose (mg/dL) 160 H 159 H (75-99) mg/dL Calcium (8.4-10.2) mg/dL Creatine Kinase 1846 H* (35-257) U/L 09/13/21 09/14/21 09/14/21 Range/Units 23:49 04:40 04:40 RBC 3.86 L (4.30-5.90) m/uL Hgb 11.7 L (13.0-17.5) gm/dL Hct 35.6 L (39.0-53.0) % Plt Count 123 L (150-450) k/uL Lymphocytes # 0.6 L (1.0-4.8) k/uL ABG pH (7.35-7.45) ABG pO2 (83-108) mmHg ABG HCO3 (21-25) mmol/L ABG O2 Saturation (94-97) % Chloride 116 H (98-107) mmol/L Carbon Dioxide 17 L (22-30) mmol/L Glucose 131 H (74-99) mg/dL POC Glucose (mg/dL) 152 H (75-99) mg/dL Calcium 7.4 L (8.4-10.2) mg/dL Creatine Kinase (35-257) U/L 09/14/21 09/14/21 Range/Units 05:28 07:13 RBC (4.30-5.90) m/uL Hgb (13.0-17.5) gm/dL Hct (39.0-53.0) % Plt Count (150-450) k/uL Lymphocytes # (1.0-4.8) k/uL ABG pH 7.34 L (7.35-7.45) ABG pO2 79 L (83-108) mmHg ABG HCO3 20 L (21-25) mmol/L ABG O2 Saturation 97.4 H (94-97) % Chloride (98-107) mmol/L Carbon Dioxide (22-30) mmol/L Glucose (74-99) mg/dL POC Glucose (mg/dL) 126 H (75-99) mg/dL Calcium (8.4-10.2) mg/dL Creatine Kinase (35-257) U/L Microbiology - Last 24 Hours (Table) 09/11/21 01:05 Blood Culture - Preliminary Blood No Growth after 72 hours 09/11/21 00:50 Blood Culture - Preliminary Blood No Growth after 72 hours 09/13/21 12:50 Group A Strep Throat Culture - Preliminary Throat 09/12/21 23:50 Genital Culture - Preliminary Penis 09/11/21 11:54 CSF Gram Stain - Preliminary Cerebral Spinal Fluid CSF Culture - Preliminary 09/12/21 01:00 Gram Stain - Preliminary Sputum Sputum Culture - Preliminary
[2021-09-14] MEDS: VANCOMYCIN 1,500 MG in SODIUM CHLORIDE 0.9% 250 ML IVPB SCH (08:50)
[2021-09-14] MEDS: METOPROLOL TARTRATE 25 MG TAB PO SCH ×2 (08:50→20:56)
[2021-09-14] MEDS: ENOXAPARIN 100 MG/ML SYRINGE SQ SCH ×2 (08:50→20:59)
[2021-09-14] MEDS: PANTOPRAZOLE 40 MG/10 ML VIAL IVP SCH (08:50)
[2021-09-14] MEDS: ASPIRIN 325 MG TAB PO SCH (08:50)
[2021-09-14] MEDS: CHLORHEXIDINE GLUCONATE 15 ML CUP MUCOUS MEM SCH ×2 (08:51→20:56)
[2021-09-14] MEDS: SODIUM CHLORIDE 0.9% 1,000 ML IV SCH (08:51)
[2021-09-14 11:48] LABS: Glucose,Whole Blood 157 mg/dL (75-99)
[2021-09-14] MEDS: POTASSIUM BICARBONATE/CIT AC 20 MEQ TABLET.EFF NG-TUBE SCH ×2 (12:18→14:28)
--- NOTE | 2021-09-14 14:42 | CT ---
EXAMINATION TYPE: CT brain wo con DATE OF EXAM: 09/14/2021 COMPARISON: 09/11/2021 HISTORY: Altered mental status CT DLP: 1305.4 mGycm Automated exposure control for dose reduction was used. There is cerebral cortical atrophy. There is no mass effect or midline shift. No sign of intracranial hemorrhage. Calvarium is intact. There is some mucosal thickening in the ethmoid and frontal sinuses . This fluid level in the sphenoid sinus. There is mild maxillary sinus mucosal thickening. IMPRESSION: Cerebral atrophy. No acute intracranial abnormality. No change compared to recent exam. Sinusitis increased compared to recent exam.
--- NOTE | 2021-09-14 14:49 | P.PN ---
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 Patient apparently had a fall out of bed and was found on the bedroom floor and patient was transferred to [facility] emergency center for evaluation. Prior to the fall, patient has not been feel ing well for at least a few days and continued to worsen. He was reported to have a cough with weakness. Patient was taking [id number] cough medication without improvement. Initially temperature was 98.9, heart rate 99, blood pressure 145/109, pulse ox 93% on room air. Temperature max as morning is 102.8 with heart rate of 127. WBC 5.8, hemoglobin 14.1, platelet count 138. INR 1.1. Sodium 133, potassium 3.8, chloride 98, CO2 19, BUN 16 creatinine 0.88. Blood sugar 207. Lactic acid 7.3 and repeat 3.9. Calcium 9.2. Total bilirubin 1.4, AST 50, ALT 56, alkaline phosphatase 50. Troponin 0.013 followed by 2.370. Urinalysis was clear, blood moderate, RBC 6. Bacteria many. Serum alcohol level less than 10. Chronic virus PCR not detected. Influenza A not detected. Influenza B not detected. CAT scan of the brain revealed mild atrophy and chronic small vessel ischemia. No change compared to old exam. No acute intracranial abnormality. Chest x-ray, pelvis x-ray, cervical spine x-ray and abdominal and pelvic CAT scan have been completed but unable to open reports. Patient is seen today in the emergency center waiting for a bed on the cardiac stepdown unit. He has been started on heparin drip, cefepime and vancomycin and consults are in place with cardiology, infectious disease and neurology. Patient is status post diagnostic lumbar puncture completed by anesthesiology 09/12:patient went into acute respiratory failure and for airway protection he was intubated last night, and he is currently on before meals mode with a tidal volume of 450 FiO2 of 40% and PEEP of 5, his oxygen saturations. Gout, patient converted from atrial fibrillation to a normal sinus rhythm currently on amiodarone drip at 0.5 mg/m, he has been using the Levophed as well as propofol drip, for sedation, patient was also started on a cyclic severe per ICU for further coverage of possible viral meningitis, patient is to be maintained on vancomycin as well as cefepime as well, his urine output is good, he continues to be critical at this point in time. 09/13: Patient remains in the intensive care unit, currently elevated before meals mode 22 FiO2 40% and PEEP of 5 , patient continues to be sedated, had a sedation holiday today and now back on fentanyl and propofol, continues to be on IV antibiotic cefepime and vancomycin, HSV PCR pending, continues with Acyclovir 900 mg IV piggyback every 8 hours, monitor the patient very closely, prognosis continues to be guarded. 09/14: Patient was seen in intensive care unit today he continues to be on ventilator, vent setting limits before meals 22, FiO2 40% tidal volume of 400 PEEP of 5 patient tried a sedation holiday today but he continues to be very confused and barely responsive, his urine output has been adequate, he has been maintained on cefepime, vancomycin, acyclovir, continue with aggressive treatment plan, discussed with beading machine operator the need for the rest of the encephalitis panel was not sent and HSV PCR still pending at the time of dictation. REVIEW OF SYSTEMS: patient is currently sedated on mechanical ventilation couldn't perform a complete review of system Constitutional: Documented fever, chills, no night sweats, reports fatigue , positive for weight loss. HEENT: No headache. No blurred vision or double vision, no loss of vision. No loss of Hearing, no ringing in the ears, no dizziness. No nasal drainage or congestion. No epistaxis. No sore throat. Respiratory: No shortness of breath, reported cough, no sputum production. No wheezing. Reports dyspnea with activity. Cardiovascular: No chest pain, no lower extremity edema. No palpitations. No paroxysmal nocturnal dyspnea. No orthopnea. No lightheadedness or dizziness. No syncopal episodes. Gastrointestinal: Reports no abdominal pain. No nausea, vomiting. No diarrhea. No constipation. No bloody or tarry stools reports loss of appetite. Genitourinary: No dysuria, increased frequency, urgency. No urinary retention. Musculoskeletal: Positive for myalgias. positive for muscle weakness, Positive for gait dysfunction, no frequent falls, positive for low back pain . Integumentary: Sacral decubitus ulcer with pain, no lesions. No rash or pruritus. brpositive for bruising. No change in hair or nails. Neurologic: No aphasia. No facial droop. No change in mentation. No head injury. No headache. No paralysis. No paresthesia. Psychiatric: No depression. No anxiety. No mood swings. Endocrine: No abnormal blood sugars. No weight change. PHYSICAL EXAMINATION: General: This is 75-year-old male who is intubated on mechanical ventilation and sedated. HEENT: Head is atraumatic, normocephalic, there orogastric tube in place, and ET tube in place Neck: Supple, no JVP, normal carotid upstroke bilaterally, no lymphadenopathy. Chest: Decreased breath sounds at the bases, few rhonchi, no expiratory wheezes, no chest wall tenderness, no intercostal retractions. Heart: First heart sound is normal, second heart sound is normal there is systolic ejection murmur 2/6 left sternal border. Abdomen: Soft, nontender, nondistended, positive bowel sounds, no hepa tosplenomegaly Extremities: There is no edema no calf tenderness DP + 1 bilaterally. Neurologic examination: patient is currently sedated on mechanical ventilation. ASSESSMENT AND PLAN: 1. Vent dependent respiratory failure due to sepsis. The source of which is not quite delineated. Patient did have a lumbar puncture that showed minimal protein pleocytosis therefore he was started on a cyclic severe 900 mg IV piggyback every 8 hours for possible HSV encephalitis, patient has been covered with IV anabiotic in the form of vancomycin and cefepime, urine culture blood cultures are pending, if was a being COVID-19 is negative. Continue with current vent setting, continue with aggressive treatment, lactic acid is improving, continue to monitor the patient in the intensive care unit, infectious disease, pulmonary/critical care, cardiology, and neurology are fol lowing. Computed tomography scan of the brain is negative, CT angiography is negative, lumbar puncture showed pleocytosis for possible HSV encephalitis. 2. Non-ST elevated myocardial infarction. continue with Metoprolol 25 mg OGT bid, restart Atorvastatin 80 mg OGT daily and ASA 325 mg OGT daily. 3. Metabolic encephalopathy of unclear etiology. 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 4. History of MSSA left knee joint infection status post stage II revision, stable. 5. Severe lactic acidosis. Patient is status post 3 L of IV fluids, resolved Blood gases reviewed . 6. paroxysmal atrial fibrillation. we will continue with Lovenox 100 mg Sc q 12hours and metoprolol 25 mg OGT bid 7. Coronary artery disease status post Left heart catheterization with PCI of the RCA on 07/30/2020. Continue patient on aspirin 325 mg daily. continue with Atorvastatin 80 mg OGT daily along with Metoprolol 25 mg OGT bid 8. Hypertension and hypertensive cardiovascular disease. wean off Levophed drip, we will continue with Metoprolol 25 mg OGT bid. 9. Hyperlipidemia. Resume Atorvastatin 80 mg OGT daily 10. Diabetes mellitus type 2.hold off oral medication and start the patient on the sliding scale insulin or insulin drip if needed. 11. History of prostate cancer status post radiation. Stable at this time. 12. 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 13. History of Urinary retention. currently has a Shelley catheter. 14. DVT prophylaxis. continue with Lovenox 100 mg SC q 12h ours 15. GI prophylaxis. Protonix 40 mg IV push daily. 16. Patient is full code. 17. prognosis is very guarded. Objective - Vital Signs Vital signs: Vital Signs Temp 7.5 F L 09/14/21 12:00 Pulse 74 09/14/21 14:00 Resp 22 09/14/21 14:00 BP 137/72 09/14/21 07:00 Pulse Ox 95 09/14/21 14:00 FiO2 40 09/14/21 12:00 Intake & Output 09/13/21 09/14/21 09/14/21 18:59 06:59 18:59 Intake Total 2300.070 1330.142 460.720 Output Total 1270 1200 1180 Balance 1030.070 130.142 -719.280 Intake: IV 1486 253 284 Acyclovir Sodium 900 mg 500 In Sodium Chloride 0.9% 250 ml @ 268 mls/hr IVPB Q8HR [facility] Rx#:[id number] Cefepime 2 gm In Sodium 50 Chloride 0.9% 100 ml @ 25 mls/hr IVPB Q12H [facility] Rx# :[id number] Cefepime 2 gm In Sodium 100 100 Chloride 0.9% 100 ml @ 25 mls/hr IVPB Q8H [facility] Rx#: [id number] Sodium Chloride 0.9% 1, 550 220 160 000 ml @ 20 mls/hr IV . Q24H [facility] Rx#:[id number] Vancomycin 1,500 mg In 250 Sodium Chloride 0.9% 250 ml @ 125 mls/hr IVPB Q16H [facility] Rx#:[id number] pressure bag 36 33 24 Intake, IV Titration 550.070 811.142 144.720 Amount Acyclovir Sodium 900 mg 250 In Sodium Chloride 0.9% 250 ml @ 268 mls/hr IVPB Q8HR [facility] Rx#:[id number] Norepinephrine 8 mg In 210.814 89.751 48.723 Sodium Chloride 0.9% 250 ml @ 0.05 MCG/KG/MIN 10. 381 mls/hr IV .Q24H [facility] Rx#:[id number] fentaNYL (PF). 1,000 mcg 76.098 In Sodium Chloride 0.9% 80 ml @ 0.5 MCG/KG/HR 4. 99 mls/hr IV .Q20H3M [facility] Rx#:[id number] propofoL 1,000 mg In 263.158 471.391 95.997 Empty Bag 1 bag @ 5 MCG/ KG/MIN 2.994 mls/hr IV . Q24H [facility] Rx#:[id number] Tube Feeding 144 176 32 Other 120 90 Output: Urine 1270 1200 1180 Other: Voiding Method Indwelling Catheter Indwelling Catheter Indwelling Catheter ABP, PAP, CO, CI - Last Documented Arterial Blood Pressure 142/69 - Labs CBC & Chem 7: 09/14/21 04:40 09/14/21 04:40 Labs: Abnormal Lab Results - Last 24 Hours (Table) 09/13/21 09/13/21 09/14/21 Range/Units 17:53 23:49 04:40 RBC 3.86 L (4.30-5.90) m/uL Hgb 11.7 L (13.0-17.5) gm/dL Hct 35.6 L (39.0-53.0) % Plt Count 123 L (150-450) k/uL Lymphocytes # 0.6 L (1.0-4.8) k/uL ABG pH (7.35-7.45) ABG pO2 (83-108) mmHg ABG HCO3 (21-25) mmol/L ABG O2 Saturation (94-97) % Chloride (98-107) mmol/L Carbon Dioxide (22-30) mmol/L Glucose (74-99) mg/dL POC Glucose (mg/dL) 159 H 152 H (75-99) mg/dL Calcium (8.4-10.2) mg/dL 09/14/21 09/14/21 09/14/21 Range/Units 04:40 05:28 07:13 RBC (4.30-5.90) m/uL Hgb (13.0-17.5) gm/dL Hct (39.0-53.0) % Plt Count (150-450) k/uL Lymphocytes # (1.0-4.8) k/uL ABG pH 7.34 L (7.35-7.45) ABG pO2 79 L (83-108) mmHg ABG HCO3 20 L (21-25) mmol/L ABG O2 Saturation 97.4 H (94-97) % Chloride 116 H (98-107) mmol/L Carbon Dioxide 17 L (22-30) mmol/L Glucose 131 H (74-99) mg/dL POC Glucose (mg/dL) 126 H (75-99) mg/dL Calcium 7.4 L (8.4-10.2) mg/dL 09/14/21 Range/Units 11:47 RBC (4.30-5.90) m/uL Hgb (13.0-17.5) gm/dL Hct (39.0-53.0) % Plt Count (150-450) k/uL Lymphocytes # (1.0-4.8) k/uL ABG pH (7.35-7.45) ABG pO2 (83-108) mmHg ABG HCO3 (21-25) mmol/L ABG O2 Saturation (94-97) % Chloride (98-107) mmol/L Carbon Dioxide (22-30) mmol/L Glucose (74-99) mg/dL POC Glucose (mg/dL) 157 H (75-99) mg/dL Calcium (8.4-10.2) mg/dL Microbiology - Last 24 Hours (Table) 09/11/21 11:54 CSF Gram Stain - Preliminary Cerebral Spinal Fluid CSF Culture - Preliminary 09/12/21 01:00 Gram Stain - Final Sputum Sputum Culture - Preliminary 09/11/21 01:05 Blood Culture - Preliminary Blood No Growth after 72 hours 09/11/21 00:50 Blood Culture - Preliminary Blood No Growth after 72 hours 09/13/21 12:50 Group A Strep Throat Culture - Preliminary Throat
[2021-09-14 17:34] LABS: Glucose,Whole Blood 132 mg/dL (75-99)
[2021-09-14 23:42] LABS: Glucose,Whole Blood 127 mg/dL (75-99)
[2021-09-15] MEDS: ACYCLOVIR SODIUM 900 MG in SODIUM CHLORIDE 0.9% 250 ML IVPB SCH ×3 (00:36→17:25)
[2021-09-15] MEDS: INSULIN ASPART (NovoLOG) 100 UNIT/ML VIAL SQ SCH ×4 (00:36→18:51)
[2021-09-15] MEDS: CEFEPIME 2 GM in SODIUM CHLORIDE 0.9% 100 ML IVPB SCH ×3 (01:19→17:27)
[2021-09-15 05:33] LABS: Glucose,Whole Blood 141 mg/dL (75-99)
[2021-09-15 05:57] LABS: ABG Base Excess -4.7 mmol/L; ABG HCO3 21 mmol/L (21-25); ABG Oxygen Saturation 96.7 % (94-97); ABG PCO2 37 mmHg (35-45); ABG PH 7.36 (7.35-7.45); ABG PO2 84 mmHg (83-108); ABG TCO2 22 mmol/L (19-24); Allen Test Performed? Yes
[2021-09-15 06:09] LABS: HCT 33.4 % (39.0-53.0); HGB 11.3 gm/dL (13.0-17.5); MCH 31.5 pg (25.0-35.0); MCHC 33.9 g/dL (31.0-37.0); Mean Platelet Volume 7.5; Platelet Count 116 k/uL (150-450); RBC 3.59 m/uL (4.30-5.90); RDW 15.9 % (11.5-15.5); WBC 3.2 k/uL (3.8-10.6)
[2021-09-15 06:20] LABS: African American GFR (CKD) >90 (>60 ml/min/1.73 sqM); Anion Gap 2 mmol/L; Blood Urea Nitrogen 12 mg/dL (9-20); Calcium 7.7 mg/dL (8.4-10.2); Carbon Dioxide 20 mmol/L (22-30); Chloride 116 mmol/L (98-107); Glucose 124 mg/dL (74-99); Non-African American GFR(CKD) 83 (>60 ml/min/1.73 sqM); Potassium 3.6 mmol/L (3.5-5.1); Sodium 138 mmol/L (137-145)
--- NOTE | 2021-09-15 07:58 | P.PN ---
Subjective HISTORY OF PRESENTING ILLNESS This is a 76-year-old gentleman was brought to the hospital with mental status changes and fall. Apparently patient was not feeling well for the last several days and was complaining of generalized weakness. He is currently intubated and most of the information is gathered from chart and security and privacy consultant notes and also f rom the nurses. Patient has history of septic arthritis coronary artery disease, hypertension, hypercholesterolemia with previous intervention of the right coronary artery. Patient was in atrial fibrillation on admission and was initially treated with IV Cardizem and subsequent change to IV amiodarone. His converted to sinus rhythm. Patient is currently sedated. Patient apparently not withdrawing with painful stimuli before the sedation. He is a troponin values went up suggestive of non-STEMI. EKG did not reveal any acute ST-T abnormalities. Echocardiogram is requested. Is being followed by neurology, infectious disease and also surgical team. Apparently patient also has carotid disease. From Cardec standpoint, patient is not a candidate for any intervention at this time. We will get an echo Cardec gram to assess LV function. Continue with IV amiodarone. Patient was treated with heparin but was discontinued because of high PTT. That needs to be resumed once feasible. Prognosis is guarded 09/13 Patient seen and examined. Initially was in A. fib however currently sinus rhythm. Noted to be elevated lactic acid and elevating troponins initially normal and then elevated up to 15. Currently remains intubated and sedated. Lactic acid has improved, creatinine stable at 1.1. He is having fevers up to 102. Pro-calcitonin mildly elevated 0.35. Requiring higher levels of propofol for sedation. Tube feeds at 16 and giving gentle IV fluids. Ventilator settings with FiO2 40% and a PEEP of 5. EKG shows no significant change from prior. Echo performed which shows somewhat poor quality however ejection fraction 50-55% without significant valvular disease. 09/14 Patient seen and examined. Patient attempted on weaning yesterday and failed. Remains on norepinephrine at 0.0. He remains in sinus rhythm and no significant atrial fibrillation. Creatinine stable today. Ventilator settings 40% FiO2 and 5 of PEEP. 09/15 Patient seen and examined. Patient remains on tube feeds at 16 mL per hour. Remains on ventilator with FiO2 40% and a PEEP of 5. Has been off and on norepinephrine however blood pressures relatively stable. REVIEW OF SYSTEMS At the time of my exam: Unable to obtain secondary to sedation. PHYSICAL EXAMINATION Vital signs reviewed. CONSTITUTIONAL: No apparent distress, ill appearing, intubated and sedated HEENT: Head is normocephalic. Pupils are equal, round. Sclerae anicteric. Mucous membranes of the mouth are moist. No JVD. No carotid bruit. CHEST EXAMINATION: Lungs are clear to auscultation. No chest wall tenderness is noted on palpation or with deep breathing. HEART EXAMINATION: Regular rate and rhythm. S1, S2 heard. No murmurs, gallops or rub. ABDOMEN: Soft, nontender. Positive bowel sounds. EXTREMITIES: 2+ peripheral pulses, no lower extremity edema and no calf tenderness. NEUROLOGIC EXAMINATION: Patient is sedated on vent ASSESSMENT 1. Acute on chronic respiratory failure, intubated mainly for AMS 2. Altered mental status 3. Paroxysmal atrial fibrillation initially RVR currently sinus rhythm 4. Coronary artery disease with history of prior PCI 5. Non-STEMI troponin up to 15, unclear type I versus type II mechanism 6. Shock requiring vasopressors, suspected septic shock without obvious source 7. Lactic acidosis 8. Concern of possible carotid artery stenosis PLAN Suspected shock still from sepsis. Always consideration of cardiogenic however echo shows predominantly preserved EF 50-55%. Non-STEMI may be type II mechanism. May consider ischemic workup pending patient's progress and neurolgic status. Continue with high intensity Lovenox for atrial fibrillation as well as for non- STEMI. Hopeful extubation and then may consider ischemic workup. Objective - Vital Signs Vital signs: Vital Signs Temp 98.3 F 09/15/21 00:00 Pulse 77 09/15/21 06:00 Resp 22 09/15/21 06:00 BP 137/72 09/14/21 07:00 Pulse Ox 99 09/15/21 06:00 FiO2 40 09/15/21 07:40 Intake & Output 09/14/21 09/15/21 09/15/21 18:59 06:59 18:59 Intake Total 209.057 9952.888 Output Total 1480 915 Balance -828.401 700.888 Weight 114.1 kg Intake: IV 293 783 Acyclovir Sodium 900 mg 250 In Sodium Chloride 0.9% 250 ml @ 268 mls/hr IVPB [facility] Rx#:[id number] Cefepime 2 gm In Sodium 100 400 Chloride 0.9% 100 ml @ 25 mls/hr IVPB Q8H [facility] Rx#: [id number] Sodium Chloride 0.9% 1, 160 100 000 ml @ 20 mls/hr IV . Q24H [facility] Rx#:[id number] pressure bag 33 33 Intake, IV Titration 310.599 522.888 Amount Norepinephrine 8 mg In 52.392 66.788 Sodium Chloride 0.9% 250 ml @ 0.05 MCG/KG/MIN 10. 381 mls/hr IV .Q24H [facility] Rx#:[id number] propofoL 1,000 mg In 258.207 456.100 Empty Bag 1 bag @ 5 MCG/ KG/MIN 2.994 mls/hr IV . Q24H [facility] Rx#:[id number] Tube Feeding 48 160 Other 150 Output: Urine 1480 915 Other: Voiding Method Indwelling Catheter Indwelling Catheter ABP, PAP, CO, CI - Last Documented Arterial Blood Pressure 152/68 - Labs CBC & Chem 7: 09/15/21 05:55 09/15/21 05:55 Labs: Abnormal Lab Results - Last 24 Hours (Table) 09/14/21 09/14/21 09/14/21 Range/Units 11:47 17:32 23:41 WBC (3.8-10.6) k/uL RBC (4.30-5.90) m/uL Hgb (13.0-17.5) gm/dL Hct (39.0-53.0) % RDW (11.5-15.5) % Plt Count (150-450) k/uL Chloride (98-107) mmol/L Carbon Dioxide (22-30) mmol/L Glucose (74-99) mg/dL POC Glucose (mg/dL) 157 H 132 H 127 H (75-99) mg/dL Calcium (8.4-10.2) mg/dL 09/15/21 09/15/21 09/15/21 Range/Units 05:29 05:55 05:55 WBC 3.2 L (3.8-10.6) k/uL RBC 3.59 L (4.30-5.90) m/uL Hgb 11.3 L (13.0-17.5) gm/dL Hct 33.4 L (39.0-53.0) % RDW 15.9 H (11.5-15.5) % Plt Count 116 L (150-450) k/uL Chloride 116 H (98-107) mmol/L Carbon Dioxide 20 L (22-30) mmol/L Glucose 124 H (74-99) mg/dL POC Glucose (mg/dL) 141 H (75-99) mg/dL Calcium 7.7 L (8.4-10.2) mg/dL Microbiology - Last 24 Hours (Table) 09/11/21 01:05 Blood Culture - Preliminary Blood No Growth after 96 hours 09/11/21 00:50 Blood Culture - Preliminary Blood No Growth after 96 hours 09/12/21 23:50 Genital Culture - Preliminary Penis Bibiana albicans 09/11/21 11:54 CSF Gram Stain - Preliminary Cerebral Spinal Fluid CSF Culture - Preliminary 09/12/21 01:00 Gram Stain - Final Sputum Sputum Culture - Preliminary
[2021-09-15] MEDS ORDERED: POTASSIUM BICARBONATE/CIT AC 20 MEQ TABLET.EFF NG-TUBE SCH (08:00)
--- NOTE | 2021-09-15 08:31 | XR ---
EXAMINATION TYPE: XR chest 1V portable DATE OF EXAM: 09/15/2021 COMPARISON: 09/14/2021 INDICATION: Tube placement TECHNIQUE: Single frontal view of the chest is obtained. FINDINGS: The heart size is normal. The pulmonary vasculature is normal. Mild bibasilar infiltrates are present more so on the left retrocardiac region. A small left pleural effusion is likely present. Endotracheal tube tip is above the roseanne. Nasogastric tube transverses the thorax. Left central veno us catheter tip is in the superior vena cava region. IMPRESSION: 1. Mild basilar infiltrate and small left pleural effusion 2. Lines and catheters discussed above
[2021-09-15] MEDS: CHLORHEXIDINE GLUCONATE 15 ML CUP MUCOUS MEM SCH ×2 (08:41→21:32)
[2021-09-15] MEDS: ENOXAPARIN 100 MG/ML SYRINGE SQ SCH ×2 (08:41→21:32)
[2021-09-15] MEDS: PANTOPRAZOLE 40 MG/10 ML VIAL IVP SCH (08:41)
[2021-09-15] MEDS: ATORVASTATIN 80 MG TAB PO SCH (08:42)
[2021-09-15] MEDS: SODIUM CHLORIDE 0.9% 1,000 ML IV SCH (08:42)
[2021-09-15] MEDS: ASPIRIN 325 MG TAB PO SCH (08:42)
--- NOTE | 2021-09-15 09:12 | P.PN ---
Subjective Progress Note Date: 09/15/21 75-year-old male patient seen in the emergency department because of altered mentation and fever. The patient is unable to volunteer any history. Reviewed the records. Discussed the case with the various consultants. In summary, the patient has been feeling weak, had falls and he has not been feeling well over the past few days. He also reports some cough and generalized weakness. No chest pain. No pleurisy. No hemoptysis. No neck pain. No neck stiffness. No skin rashes. In the ED, the patient was found to have a temperature of 102.8 and he was quite tachycardic. He was confused than he was unable to volunteer any information. Blood work showed a white cell count of 5.8 with a hemoglobin of 14.1 and the sodium level was 133 with a BUN of 16 and a creatinine of 0.8. Initial lactic acid level was 7.3 and the patient was given a total of 2 L of IV fluids in the subsequent lactic acid level came down to 3.9. Total bilirubin was 1.4 with AST of 50 and ALT of 56 and a normal alkaline phosphatase. Troponin was at 0.013 and subsequent level came back at 2.3 consistent with acute non-ST segment elevation myocardial infarction. UA showed 6 RBCs, bacteria was present, however, the total number of WBCs were only 2. The patient +3 protein, +4 glucose and +1 ketones. Note that the patient also had a negative coronary testing. Influenza screen was also negative. Chest x-ray s howed negative abnormalities. CAT scan of the abdomen and pelvis also showed negative abnormalities. There was some subsegmental atelectatic changes in lung bases bilaterally. Alcohol level was negative. Urine drug screen has not been done. Lumbar puncture was treated on this patient and the result is still pending for now. In the ED, the patient was started on IV fluids. The patient is currently on normal saline at the rate of 130s's an hour. The patient was given IV cefepime and IV vancomycin. The patient was also started on IV heparin regarding the acute non-STEMI. The patient's cardiac rhythm was also in A. fib RVR and the patient was started on a Cardizem drip for rate control at 5 mg an hour. Upon further inspection, the patient had a previous left knee surgery probably an arthroplasty. The knee was slightly swollen and there was no tenderness or warmth or any drainage. He also had a healing sacral ulcer with some limited erythema. No evidence of any cellulitis or draining wound in the back area. He is known to have multiple medical problems and comorbidities inc luding previous history of coronary artery disease, previous coronary intervention and stenting back in November 2019 involving the mid RCA and the patient also has hypertension, hypertensive heart disease, hyperlipidemia, diabetes mellitus type 2, diabetic peripheral neuropathy, lumbar spondylosis wi th chronic pain requiring epidural injections and previous ablations, prostate cancer with a previous radiation therapy and the patient has had previous history of MSSA septic arthritis of the left knee. He is known to have also erectile dysfunction and peripheral neuropathy and peripheral vascular disease. On today's evaluation of 09/12/2021, the patient is being seen in intensive care unit. The patient was seen in consultation yesterday in the emergency. The patient was altered, febrile, septic looking, and the lumbar puncture was negative for bacterial meningitis. The patient was covered with broad-spectrum antibiotics and following that the patient was brought into the intensive care unit. During the course of the ICU stay, the patient developed an acute non-ST segment elevation myocardial infarction. The troponin peaked at 15. EKG is still in normal sinus rhythm and his EKG was showing an atrial fibrillation with rapid ventricular response and apparently the patient converted into normal sinus rhythm. Noted the patient was covered with IV heparin at a time of admission. Nevertheless, yesterday, the patient became acutely unresponsive, apparently was noted to be aphasic and flaccid on the right side. A code stroke was initiated. The patient was given a CTA of the head that showed no acute abnormalities. There was no evidence of any acute bleed. This was essentially a negative CT angiogram of the brain. There was some 75% stenosis of the origin of the left internal carotid artery and 30% on the right. The CAT scan showed no evidence of any aneurysms or vascular injuries. At that point, IV heparin was discontinued. The Doppler of the carotids from today showed no evidence of any hemodynamic stenosis of the proximal internal carotid arteries. In any rate, the patient became quite lethargic and unresponsive. To protect his airways, the patient was intubated and placed on a mechanical ventilator. Overnight, he was started on propofol and the dose was gradually increased is currently up to 75 mcg/kg per minute. He briefly required fentanyl and currently is off the fentanyl. He is deeply sedated for now. He is not withdrawing to deep painful stimulation. Pupils are about 2 mm in size, sluggishly reactive to light. No Babinski. No clonus. He is on a mechanical ventilator on assist control mode at the rate of 22, tidal volume of 400, FiO2 of 40% with a PEEP of 5. No significant orotracheal secretions. The chest x- ray from today showing no acute abnormalities. ET tube is in a good location. No airspace disease and there is some minimal infiltration/atelectasis of the left lower lobe. The blood gases from today showed a pH of 7.39 with a pCO2 of 33 and pO2 of 192 and this was on FiO2 of 50%. Rest of the blood work shows a sodium of 131, potassium of 3.3, bicarb of 19, creatinine 1.1, triglyceride was elevated at 541, blood sugars of 207 the white cell count and 6.4 with a hemoglobin of 12.9. This CSF analysis showed some elevation in the protein which is up 216, glucose was also had 116, the white cell count in the CSF was only 3 and the Gram stain was negative. No seizure activity has been noted. No skin rashes. No swelling in the left knee. No open wounds or sores at this point in time. He remains on a combination of cefepime and vancomycin. Cultures are all negative. This morning he is afebrile. His T-max was 102 from at 1 AM. 09/13/2021, I'm seeing the patient in intensive care unit. He remains intubated on mechanical ventilator. This morning, he remains off of a fall which is running at 75 mcg/kg per minute and the patient is on a low-dose fentanyl treated adequately sedated for now. No seizure activity has been noted. He is deeply sedated and a sedation holiday is to be performed today. No new cultures are available. Due to concerns of HSV encephalitis, I started the patient ye sterday on IV acyclovir pending HSV by PCR in the CSF. This has not resulted yet. The patient In terms of his respiratory status, the patient is on a mechanical ventilator. The patient this morning is on a mechanical ventilator assist control mode at the rate of 22, tidal volume is at 400 with a pack of 40 and a PEEP of 5. Chest x-ray shows some left basilar atelectatic changes. Triple-lumen catheter in the left IJ is in a good location. No evidence of any pneumothorax. OG tube is also in good location. The blood gases from today shows a pH of 7.34 with a pCO2 of 34 and pO2 of 145 and this was on FiO2 of 40%. Peak airway pressure is at 18. No significant orotracheal secretions. He modynamically, the patient is stable on no pressors. The patient is afebrile. Affect patient became somewhat hypothermic and earlier this morning his temperature dropped down to 95.7. He does have some external warmers applied. As such, he hasn't developed any fever since yesterday. He is covered with a combination of IV acyclovir, IV cefepime and IV vancomycin. Orthopedic surgery evaluated the left knee and as expected, there is no evidence of any septic arthritis involving the left knee. The patient had negative blood cultures. The white cell count is at 3.5 with a hemoglobin of 12 and a platelet count of 114. The rest of the blood work shows a sodium of 133, potassium is at 3.3 and he is to be replaced and the BUN of 18 with a creatinine of 1.1. Blood sugar is at 154. Calcium is at 7. Magnesium is to be replaced at 1.5. The patient's CPK level from yesterday was 1846 and a troponin peaked at 16. Urine drug screen was negative. Echocardiogram was also completed and the patient was found to have a preserved LV function. No significant valvular abnormalities. The patient had a technically difficult echo due to poor windows. Artery function with estimated to be normally at around 55%. EEG of the brain was also done yesterday that showed encephalopathy as the patient was on propofol high- dose. There was moderate to severe encephalopathy medication induced related to propofol and fentanyl. No active seizures noted. Cardiac rhythm is sinus for now. The patient is on Lovenox for cardiology therapeutic doses of 100 mg subcu every 12 hours. He is on minimal amount of pressors with levo at 0.06 mcg/kg per minute and this can be easily weaned off. No other significant events otherwise since yesterday. 09/14/2021, the patient is being seen for a follow-up. The patient remains intubated on a mechanical ventilator. He was given a breathing sedation holiday which essentially failed as the patient's respiration became quite high and the patient was becoming asynchronous with a mechanical ventilator and he did not show any adequate neurologic recovery and he was not following any commands. As such, the sedation holiday was important and the family done today. Meanwhile, the patient remains on a mechanical ventilator. This morning, he is sedated with propofol at the rate of 75 mcg/kg per minute. The patient is currently off fentanyl. He is adequately sedated for now. He remains on an assist-control mode of mechanical ventilation. Tidal volumes of 400 with a rate of 22 and FiO2 of 40% with a PEEP of 5. He is afebrile and hemodynamically is requiring low doses of pressors and the patient is currently on norepinephrine at 0.06 mcg/kg per minute. Adequate urine output. Adequate blood pressure for now. Cultures have been all negative. Awaiting HSV by PCR in the CSF and meanwhile the patient was kept on IV acyclovir. The white cell count is low at 3.8. The cultures been negative. No clear indication for an underlying septic source. The patient was covered with a combination of septic cefepime and vancomycin. The chest x-ray from today shows a left lower lobe atelectasis. No clear-cut airspace disease or consolidation. Blood gases from today shows the patient 7.34 with a pCO2 of 37 and pO2 of 79. BUN is at 40 with a creatinine of 0.9 and his sodium level is at 139. Vancomycin trough was 20.8. The patient is rece iving enteral feeding for nutritional support. The patient is currently on vital high protein at the rate of 16 mL an hour which is at goal. His cardiac rhythm is sinus for now. The patient remains on Lovenox per cardiology therapeutic doses. Echocardiogram showed normal LV dysfunction and the patient has a preserved LV without any valvular disease. The patient had an acute non- STEMI. Troponin peaked at 15. 09/15/2021, the patient is being seen for a follow-up. This morning, the patient is heavily sedated with propofol running at 75 mg/kg per minute. He was given a sedation holiday during which she open up his eyes and he was thrashing and he was not following any commands and doing any purposeful activity. Based on that, the sedation holiday was discontinued and the patient was taken for another CAT scan of the chest and this was a noncontrast CAT scan which showed no acute abnormalities. As such, the patient was placed on sedation and another sedation holiday will be done today. His CAT scan of the brain showed cerebral atrophy. No acute abnormalities have been noted. No seizure activity. On today's evaluation, the patient remains on assist control mode of mechanical ventilation at the rate of 22, tidal volume of 400 and FiO2 of 40% and PEEP of 5. Chest x-ray remains unchanged with some atelectatic changes and left lung base. No significant orotracheal secretions the patient's blood gases showed a pH of 7.36 with a pCO2 of 37 and pO2 of 84. The patient is afebrile and the patient has a white count of 3.2 with a hemoglobin of 11.3 and a platelet count is at 116. Renal function is stable with a creatinine of 0.8. Sodium is at 138, serum bicarb is at 20 which is improved compared to yesterday. Meanwhile, the patient is hemodynamically stable. He is on no pressors. He is on a combination of antibiotics although we have not cultures any positive microbial growth. The patient has HSV by PCR pending in the CSF. Enteral feeding for nutritional support and the patient is currently receiving vital high protein at the rate of 16 mL an hour. The patient had an echocardiogram that showed preserved LV function. His post acute non-STEMI. Cardiology is on the case. No further intervention is recommended's point, especially the patient's cardiac rhythm is sinus and echocardiogram has not revealed any acute abnormalities. As such, the exact cause for his underlying altered mental status remains not clear and stable on that investigation. CSF protein was mildly elevated. Genital cultures revealed Bibiana albicans. Objective - Vital Signs Vital signs: Vital Signs Temp 97.8 F 09/15/21 08:00 Pulse 77 09/15/21 08:00 Resp 22 09/15/21 08:00 BP 137/72 09/15/21 08:00 Pulse Ox 96 09/15/21 08:00 FiO2 40 09/15/21 08:00 Intake & Output 09/14/21 09/15/21 09/15/21 18:59 06:59 18:59 Intake Total 716.583 4635.888 237.389 Output Total 1480 915 300 Balance -828.401 700.888 -62.611 Weight 114.1 kg Intake: IV 293 783 33 Acyclovir Sodium 900 mg 250 In Sodium Chloride 0.9% 250 ml @ 268 mls/hr IVPB Q8HR [facility] Rx#:[id number] Cefepime 2 gm In Sodium 100 400 Chloride 0.9% 100 ml @ 25 mls/hr IVPB Q8H [facility] Rx#: [id number] Sodium Chloride 0.9% 1, 160 100 30 000 ml @ 20 mls/hr IV . Q24H [facility] Rx#:[id number] pressure bag 33 33 3 Intake, IV Titration 310.599 522.888 158.389 Amount Norepinephrine 8 mg In 52.392 66.788 51.214 Sodium Chloride 0.9% 250 ml @ 0.05 MCG/KG/MIN 10. 381 mls/hr IV .Q24H [facility] Rx#:[id number] propofoL 1,000 mg In 258.207 456.100 107.175 Empty Bag 1 bag @ 5 MCG/ KG/MIN 2.994 mls/hr IV . Q24H [facility] Rx#:[id number] Tube Feeding 48 160 16 Other 150 30 Output: Urine 1480 915 300 Other: Voiding Method Indwelling Catheter Indwelling Catheter Indwelling Catheter ABP, PAP, CO, CI - Last Documented Arterial Blood Pressure 104/47 - Exam General: This is 75-year-old male who appears to be in severely ill. The patient is currently sedated with propofol and he is currently intubated on a mechanical ventilator. Orotracheal and orogastric tube are both in place. The patient seems to be quite successful mechanical ventilator. Head exam was generally normal. There was no scleral icterus or corneal arcus. Mucous membranes were moist. Neck was supple and without jugular venous distension, thyromegaly, or carotid bruits. Carotids were easily palpable bilaterally. There was no adenopathy. The patient does not have any neck stiffness or meningeal signs at this point in time.Supple, no JVP, normal carotid upstroke bilaterally, no lymphadenopathy. Chest: Decreased breath sounds at the bases, few rhonchi, no extremity wheezes, no chest wall tenderness, no intercostal retractions. Heart: First heart sound is normal, second heart sound is normal there is systolic ejection murmur 2/6 left sternal border. Abdomen: Soft, nontender, nondistended, positive bowel sounds, no h epatosplenomegaly Extremities: There is no edema no calf tenderness DP + 1 bilaterally, left knee with large dressing in place. The patient has undergone previous left knee arthroplasty. Left knee is slightly swollen compared to right. Nevertheless, there is no fluid or erythema involving the joint. Upon passive range of motion, no significant pain and is associated Skin: There is a stage II decubitus ulcer in the coccyx area with current wound dressing as per infectious disease. No open wounds or sores. No evidence of any cellulitis. No drainage. Neurologic examination: Patient is intubated, on a mechanical ventilator and he is deeply sedated. Neurologic exam is suboptimal at this point in time. Does not withdraw to any painful stimulation. No Babinski. No clonus. Pupils are equal and reactive around 2-3 mm in size. No facial asymmetry. No neck stiffness. No meningeal signs. No nystagmus. No preferential gaze. - Labs CBC & Chem 7: 09/15/21 05:55 09/15/21 05:55 Labs: Abnormal Lab Results - Last 24 Hours (Table) 09/14/21 09/14/21 09/14/21 Range/Units 11:47 17:32 23:41 WBC (3.8-10.6) k/uL RBC (4.30-5.90) m/uL Hgb (13.0-17.5) gm/dL Hct (39.0-53.0) % RDW (11.5-15.5) % Plt Count (150-450) k/uL Chloride (98-107) mmol/L Carbon Dioxide (22-30) mmol/L Glucose (74-99) mg/dL POC Glucose (mg/dL) 157 H 132 H 127 H (75-99) mg/dL Calcium (8.4-10.2) mg/dL 09/15/21 09/15/21 09/15/21 Range/Units 05:29 05:55 05:55 WBC 3.2 L (3.8-10.6) k/uL RBC 3.59 L (4.30-5.90) m/uL Hgb 11.3 L (13.0-17.5) gm/dL Hct 33.4 L (39.0-53.0) % RDW 15.9 H (11.5-15.5) % Plt Count 116 L (150-450) k/uL Chloride 116 H (98-107) mmol/L Carbon Dioxide 20 L (22-30) mmol/L Glucose 124 H (74-99) mg/dL POC Glucose (mg/dL) 141 H (75-99) mg/dL Calcium 7.7 L (8.4-10.2) mg/dL Microbiology - Last 24 Hours (Table) 09/13/21 12:50 Group A Strep Throat Culture - Final Throat 09/11/21 01:05 Blood Culture - Preliminary Blood No Growth after 96 hours 09/11/21 00:50 Blood Culture - Preliminary Blood No Growth after 96 hours 09/12/21 23:50 Genital Culture - Preliminary Penis Bibiana albicans 09/11/21 11:54 CSF Gram Stain - Preliminary Cerebral Spinal Fluid CSF Culture - Preliminary 09/12/21 01:00 Gram Stain - Final Sputum Sputum Culture - Preliminary Assessment and Plan Plan: Altered mental status on that investigation. CAT scan of the brain was nega tive. CT angiogram done yesterday was negative. Meningeal signs are absent in the patient's CSF is showing elevated protein. Rule out viral encephalitis. The patient is currently on IV acyclovir pending HSV by PCR. Neurologist on the case. EEG is consistent with moderate to severe encephalopathy consistent with drug-induced encephalopathy as the patient is on propofol for now. At the same time, the patient is sedated with propofol . The patient failed a sedation holiday yesterday. The family done today and his neuro status will be reevaluated accordingly. The patient failed sedation holidays repeatedly. He did not have any reasonable neurologic recovery. As such, the cause for his altered mentation fever is not clear. Not a sedation holiday will be given today. The patient is currently on propofol. Most recent CAT scan of the brain that was done yesterday was negative. Sepsis, currently under investigation and this possibility of sepsis and is becoming more doubtful. The patient was found on the floor at home and this could've contributed to his lactic acidosis which improved significantly since admission. Further investigation yielded no microbial growth. The patient for now is afebrile.. The patient came in with altered mentation and fever and lactic acidosis. Lumbar puncture was performed in the emergency department and results are still pending for now. Urine and blood cultures of been sent and the patient is covered with empiric antibiotics with cefepime and vancomycin. Patient was also given IV fluids. Lactic acid levels are improving. Meningitis was suspected and the patient was given a lumbar puncture. He still pending for now. No meningeal signs. Consider underlying encephalitis. COVID 19 testing is been negative. Influenza A and B were also negative. The exact source of the sepsis is not clear. Doubt septic joint. Doubt meningitis. No evidence of pneumonia. All of the cultures are negative thus far and the patient is on a combination of cefepime and vancomycin. No changes in terms of his septic workup and also evaluated the patient and there is no indication of any septic arthritis. Cultures are all negative thus far. The patient is minimally hypotensive on low-dose pressors for now and this needs to be weaned off, his condition is essentially unchanged compared to yesterday. The patient remains afebrile pain no significant leukocytosis today. Ventilator-dependent respiratory failure, the patient did not have any significant hypoxemia or hypercapnia. The patient was intubated to protect his airway and currently is on a mechanical ventilator. Chest x-rays revealing some left basilar atelectasis. Chest x-ray from today was noted, blood gases was noted. No major interval change compared to yesterday. Acute atrial fibrillation with rapid ventricular response, currently in sinus rhythm patient remains in sinus rhythm for now. Patient is also on Lovenox therapeutic doses and Lopressor at a dose of 25 mg twice a day. Acute lactic acidosis, improving acute non-ST segment elevation myocardial infarction and a troponin peaked at 15 , echo cardiac exam shows a preserved LV function. Coronary artery disease with previous coronary stenting involving the RCA back in July 2020. 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 Carotids on the case. ID is on the case. Continue metoprolol Continue Lovenox subcu therapeutic doses per cardiology Consulted neurology and infectious disease enteral feeding for nutritional support IV Protonix Condition is critical we will continue to follow make further recommendations based on his progress. This is a critically care evaluation that was done and more than 30 minutes. Time with Patient: Greater than 30
[2021-09-15] MEDS: DEXMEDETOMIDINE/0.9% NACL(PMX) 400 MCG in EMPTY BAG 1 BAG IV SCH ×2 (09:30→18:50)
[2021-09-15] MEDS: METOPROLOL TARTRATE 25 MG TAB PO SCH ×2 (09:31→21:39)
--- NOTE | 2021-09-15 09:48 | P.PN ---
Subjective Progress Note Date: 09/15/21 HISTORY OF PRESENT ILLNESS: This is a 75-year-old male patient of mine with previous medical history significant for coronary artery disease status post percutaneous coronary interv ention and stent placement last one was in 12/13/2019 in the mid RCA at that time he was found to have a totally occluded obtuse marginal one of the LCx, with collaterals from the PDA, hypertension and hypertensive cardiovascular disease, hyperlipidemia, diabetes mellitus type 2, diabetic polyneuropathy, 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 as well as radio frequency ablation, prostate cancer status post radiation therapy, MSSA septic arthritis left knee. Patient apparently had a fall out of bed and was found on the bedroom floor and patient was transferred to [facility] emergency center for evaluation. Prior to the fall, patient has not been feel ing well for at least a few days and continued to worsen. He was reported to have a cough with weakness. Patient was taking [id number] cough medication without improvement. Initially temperature was 98.9, heart rate 99, blood pressure 145/109, pulse ox 93% on room air. Temperature max as morning is 102.8 with heart rate of 127. WBC 5.8, hemoglobin 14.1, platelet count 138. INR 1.1. Sodium 133, potassium 3.8, chloride 98, CO2 19, BUN 16 creatinine 0.88. Blood sugar 207. Lactic acid 7.3 and repeat 3.9. Calcium 9.2. Total bilirubin 1.4, AST 50, ALT 56, alkaline phosphatase 50. Troponin 0.013 followed by 2.370. Urinalysis was clear, blood moderate, RBC 6. Bacteria many. Serum alcohol level less than 10. Chronic virus PCR not detected. Influenza A not detected. Influenza B not detected. CAT scan of the brain revealed mild atrophy and chronic small vessel ischemia. No change compared to old exam. No acute intracranial abnormality. Chest x-ray, pelvis x-ray, cervical spine x-ray and abdominal and pelvic CAT scan have been completed but unable to open reports. Patient is seen today in the emergency center waiting for a bed on the cardiac stepdown unit. He has been started on heparin drip, cefepime and vancomycin and consults are in place with cardiology, infectious disease and neurology. Patient is status post diagnostic lumbar puncture completed by anesthesiology 09/12:patient went into acute respiratory failure and for airway protection he was intubated last night, and he is currently on before meals mode with a tidal volume of 450 FiO2 of 40% and PEEP of 5, his oxygen saturations. Gout, patient converted from atrial fibrillation to a normal sinus rhythm currently on amiodarone drip at 0.5 mg/m, he has been using the Levophed as well as propofol drip, for sedation, patient was also started on a cyclic severe per ICU for further coverage of possible viral meningitis, patient is to be maintained on vancomycin as well as cefepime as well, his urine output is good, he continues to be critical at this point in time. 09/13: Patient remains in the intensive care unit, currently elevated before meals mode 22 FiO2 40% and PEEP of 5 , patient continues to be sedated, had a sedation holiday today and now back on fentanyl and propofol, continues to be on IV antibiotic cefepime and vancomycin, HSV PCR pending, continues with Acyclovir 900 mg IV piggyback every 8 hours, monitor the patient very closely, prognosis continues to be guarded. 09/14: Patient was seen in intensive care unit today he continues to be on ventilator, vent setting limits before meals 22, FiO2 40% tidal volume of 400 PEEP of 5 patient tried a sedation holiday today but he continues to be very confused and barely responsive, his urine output has been adequate, he has been maintained on cefepime, vancomycin, acyclovir, continue with aggressive treatment plan, discussed with car construction superintendent the need for the rest of the encephalitis panel was not sent and HSV PCR still pending at the time of dictation. 07/16: Patient was seen in the intensive care unit today, he continues to be on propofol drip, he was taken off fentanyl drip, sedation holiday was not very effective last night, he did have a good bowel movement, he continues to be on before meals mode 22 FiO2 40% and PEEP of 5 and tidal volume of 400, he has been getting cefepime, vancomycin, and acyclovir, PCR still pending, patient prognosis continues to be guarded. REVIEW OF SYSTEMS: patient is currently sedated on mechanical ventilation couldn't perform a complete review of system Constitutional: Documented fever, chills, no night sweats, reports fatigue , positive for weight loss. HEENT: No headache. No blurred vision or double vision, no loss of vision. No loss of Hearing, no ringing in the ears, no dizziness. No nasal drainage or congestion. No epistaxis. No sore throat. Respiratory: No shortness of breath, reported cough, no sputum production. No wheezing. Reports dyspnea with activity. Cardiovascular: No chest pain, no lower extremity edema. No palpitations. No paroxysmal nocturnal dyspnea. No orthopnea. No lightheadedness or dizziness. No syncopal episodes. Gastrointestinal: Reports no abdominal pain. No nausea, vomiting. No diarrhea. No constipation. No bloody or tarry stools reports loss of appetite. Genitourinary: No dysuria, increased frequency, urgency. No urinary retention. Musculoskeletal: Positive for myalgias. positive for muscle weakness, Positive for gait dysfunction, no frequent falls, positive for low back pain . Integumentary: Sacral decubitus ulcer with pain, no lesions. No rash or pruritus. brpositive for bruising. No change in hair or nails. Neurologic: No aphasia. No facial droop. No change in mentation. No head injury. No headache. No paralysis. No paresthesia. Psychiatric: No depression. No anxiety. No mood swings. Endocrine: No abnormal blood sugars. No weight change. PHYSICAL EXAMINATION: General: This is 75-year-old male who is intubated on mechanical ventilation and sedated. HEENT: Head is atraumatic, normocephalic, there orogastric tube in place, and ET tube in place Neck: Supple, no JVP, normal carotid upstroke bilaterally, no lymphadenopathy. Chest: Decreased breath sounds at the bases, few rhonchi, no expiratory wheezes, no chest wall tenderness, no intercostal retractions. Heart: First heart sound is normal, second heart sound is normal there is systolic ejection murmur 2/6 left sternal border. Abdomen: Soft, nontender, nondistended, positive bowel sounds, no hepatosplenomegaly Extremities: There is no edema no calf tenderness DP + 1 bilaterally. Neurologic examination: patient is currently sedated on mechanical ventilation. ASSESSMENT AND PLAN: 1. Vent dependent respiratory failure due to sepsis. The source of which is not quite delineated. Patient did have a lumbar puncture that showed minimal protein pleocytosis therefore he was started on a cyclic severe 900 mg IV piggyback every 8 hours for possible HSV encephalitis, patient has been covered with IV anabiotic in the form of vancomycin and cefepime, urine culture blood cultures are pending, if was a being COVID-19 is negative. Continue with current vent setting, continue with aggressive treatment, lactic acid is improving, continue to monitor the patient in the intensive care unit, infectious disease, pulmonary/critical care, cardiology, and neurology are following. Computed tomography scan of the brain is negative, CT angiography is negative, lumbar puncture showed pleocytosis for possible HSV encephalitis. 2. Non-ST elevated myocardial infarction. continue with Metoprolol 25 mg OGT bid, restart Atorvastatin 80 mg OGT daily and ASA 325 mg OGT daily. 3. Metabolic encephalopathy of unclear etiology. 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 4. History of MSSA left knee joint infection status post stage II revision,stable. 5. Severe lactic acidosis. Patient is status post 3 L of IV fluids, resolved Blood gases reviewed . 6. paroxysmal atrial fibrillation. we will continue with Lovenox 100 mg Sc q 12hours and metoprolol 25 mg OGT bid 7. Coronary artery disease status post Left heart catheterization with PCI of the RCA on 07/30/2020. Continue patient on aspirin 325 mg daily. continue with Atorvastatin 80 mg OGT daily along with Metoprolol 25 mg OGT bid 8. Hypertension and hypertensive cardiovascular disease. wean off Levophed drip, we will continue with Metoprolol 25 mg OGT bid. 9. Hyperlipidemia. Resume Atorvastatin 80 mg OGT daily 10. Diabetes mellitus type 2.hold off oral medication and start the patient on the sliding scale insulin or insulin drip if needed. 11. History of prostate cancer status post radiation. Stable at this time. 12. 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 13. History of Urinary retention. currently has a Shelley catheter. 14. DVT prophylaxis. continue with Lovenox 100 mg SC q 12h ours 15. GI prophylaxis. Protonix 40 mg IV push daily. 16. Patient is full code. 17. prognosis is very guarded. Objective - Vital Signs Vital signs: Vital Signs Temp 97.8 F 09/15/21 08:00 Pulse 71 09/15/21 09:00 Resp 22 09/15/21 09:00 BP 95/55 09/15/21 09:00 Pulse Ox 100 09/15/21 09:00 FiO2 40 09/15/21 08:00 Intake & Output 09/14/21 09/15/21 09/15/21 18:59 06:59 18:59 Intake Total 867.676 3616.888 290.581 Output Total 1480 915 400 Balance -828.401 700.888 -109.419 Weight 114.1 kg Intake: IV 293 783 66 Acyclovir Sodium 900 mg 250 In Sodium Chloride 0.9% 250 ml @ 268 mls/hr IVPB Q8HR [facility] Rx#:[id number] Cefepime 2 gm In Sodium 100 400 Chloride 0.9% 100 ml @ 25 mls/hr IVPB Q8H [facility] Rx#: [id number] Sodium Chloride 0.9% 1, 160 100 60 000 ml @ 20 mls/hr IV . Q24H [facility] Rx#:[id number] pressure bag 33 33 6 Intake, IV Titration 310.599 522.888 162.581 Amount Norepinephrine 8 mg In 52.392 66.788 51.214 Sodium Chloride 0.9% 250 ml @ 0.05 MCG/KG/MIN 10. 381 mls/hr IV .Q24H [facility] Rx#:[id number] propofoL 1,000 mg In 258.207 456.100 111.367 Empty Bag 1 bag @ 5 MCG/ KG/MIN 2.994 mls/hr IV . Q24H [facility] Rx#:[id number] Tube Feeding 48 160 32 Other 150 30 Output: Urine 1480 915 400 Other: Voiding Method Indwelling Catheter Indwelling Catheter Indwelling Catheter ABP, PAP, CO, CI - Last Documented Arterial Blood Pressure 107/53 - Labs CBC & Chem 7: 09/15/21 05:55 09/15/21 05:55 Labs: Abnormal Lab Results - Last 24 Hours (Table) 09/14/21 09/14/21 09/14/21 Range/Units 11:47 17:32 23:41 WBC (3.8-10.6) k/uL RBC (4.30-5.90) m/uL Hgb (13.0-17.5) gm/dL Hct (39.0-53.0) % RDW (11.5-15.5) % Plt Count (150-450) k/uL Chloride (98-107) mmol/L Carbon Dioxide (22-30) mmol/L Glucose (74-99) mg/dL POC Glucose (mg/dL) 157 H 132 H 127 H (75-99) mg/dL Calcium (8.4-10.2) mg/dL 09/15/21 09/15/21 09/15/21 Range/Units 05:29 05:55 05:55 WBC 3.2 L (3.8-10.6) k/uL RBC 3.59 L (4.30-5.90) m/uL Hgb 11.3 L (13.0-17.5) gm/dL Hct 33.4 L (39.0-53.0) % RDW 15.9 H (11.5-15.5) % Plt Count 116 L (150-450) k/uL Chloride 116 H (98-107) mmol/L Carbon Dioxide 20 L (22-30) mmol/L Glucose 124 H (74-99) mg/dL POC Glucose (mg/dL) 141 H (75-99) mg/dL Calcium 7.7 L (8.4-10.2) mg/dL Microbiology - Last 24 Hours (Table) 09/13/21 12:50 Group A Strep Throat Culture - Final Throat 09/11/21 01:05 Blood Culture - Preliminary Blood No Growth after 96 hours 09/11/21 00:50 Blood Culture - Preliminary Blood No Growth after 96 hours 09/12/21 23:50 Genital Culture - Preliminary Penis Bibiana albicans 09/11/21 11:54 CSF Gram Stain - Preliminary Cerebral Spinal Fluid CSF Culture - Preliminary 09/12/21 01:00 Gram Stain - Final Sputum Sputum Culture - Preliminary
--- NOTE | 2021-09-15 10:32 | P.PN ---
Subjective Progress Note Date: 09/14/21 Patient was seen by Dr. Trevor Louis. Please refer to his note for details. I'm seeing this patient for the first time. Patient is a 76-year-old male with altered mental status. Patient had a CSF checked, and wished WBCs were 3. Proteins were elevated. Unknown source of fever/sepsis. EEG showed moderate to severe encephalopathy. Patient currently on propofol 75 g per program per minute. Patient also on acyclovir. Per nursing report, when the sedation holiday was performed, he squeeze the hands once, open the eyes once, but not consistently. He was not waking up. Patient became tachypneic therefore started back on sedation. Patient's blood tests from today shows a BBC 3.8 with no shift. Hemoglobin 11.7, platelet 123. Electrolytes, renal functions are normal. Vancomycin trough level 20.8. Hemoglobin A1c 6.0 on 07/29/2021. B12 710 on 09/20/2020. Methylmalonic acid normal 0.13. Folate 6.1. CT head was performed and it is reported as cerebral atrophy but there is noticeable more atrophy in the frontal lobes. No acute intracranial abnormality. Limited exam. No change compared to exam earlier today. I also personally reviewed the CT of the head and it was difficult to assess the CT because of motion artifact. Regarding the bilateral frontal atrophy more than a global atrophy was hard to assess again for because of limitation. CT angiography of the head is reported as negative. While CT angiography of the neck was reported as shows stenosis above the origin of both internal carotid arteries and in the body report is reported that the patient has 75% stenosis in the left ICA and 30% stenosis in the right ICA. CSF: clear, colorless, 3 rbc, 3 total nucleated cells, glucose 116, total protein 116. CSF gram stain is no organism. Blood culture is no organism seen in 24 hours. Objective - Vital Signs Vital signs: Vital Signs Temp 7.5 F L 09/14/21 12:00 Pulse 84 09/14/21 15:00 Resp 23 09/14/21 15:00 BP 137/72 09/14/21 07:00 Pulse Ox 100 09/14/21 15:00 FiO2 40 09/14/21 15:16 Intake & Output 09/13/21 09/14/21 09/14/21 18:59 06:59 18:59 Intake Total 2300.070 1330.142 480.849 Output Total 1270 1200 1180 Balance 1030.070 130.142 -699.151 Intake: IV 1486 253 284 Acyclovir Sodium 900 mg 500 In Sodium Chloride 0.9% 250 ml @ 268 mls/hr IVPB Q8HR [facility] Rx#:[id number] Cefepime 2 gm In Sodium 50 Chloride 0.9% 100 ml @ 25 mls/hr IVPB Q12H [facility] Rx# :[id number] Cefepime 2 gm In Sodium 100 100 Chloride 0.9% 100 ml @ 25 mls/hr IVPB Q8H [facility] Rx#: [id number] Sodium Chloride 0.9% 1, 550 220 160 000 ml @ 20 mls/hr IV . Q24H [facility] Rx#:[id number] Vancomycin 1,500 mg In 250 Sodium Chloride 0.9% 250 ml @ 125 mls/hr IVPB Q16H [facility] Rx#:[id number] pressure bag 36 33 24 Intake, IV Titration 550.070 811.142 164.849 Amount Acyclovir Sodium 900 mg 250 In Sodium Chloride 0.9% 250 ml @ 268 mls/hr IVPB Q8HR [facility] Rx#:[id number] Norepinephrine 8 mg In 210.814 89.751 51.838 Sodium Chloride 0.9% 250 ml @ 0.05 MCG/KG/MIN 10. 381 mls/hr IV .Q24H [facility] Rx#:[id number] fentaNYL (PF). 1,000 mcg 76.098 In Sodium Chloride 0.9% 80 ml @ 0.5 MCG/KG/HR 4. 99 mls/hr IV .Q20H3M [facility] Rx#:[id number] propofoL 1,000 mg In 263.158 471.391 113.011 Empty Bag 1 bag @ 5 MCG/ KG/MIN 2.994 mls/hr IV . Q24H [facility] Rx#:[id number] Tube Feeding 144 176 32 Other 120 90 Output: Urine 1270 1200 1180 Other: Voiding Method Indwelling Catheter Indwelling Catheter Indwelling Catheter ABP, PAP, CO, CI - Last Documented Arterial Blood Pressure 131/63 - Labs CBC & Chem 7: 09/15/21 05:55 09/15/21 05:55 Labs: Abnormal Lab Results - Last 24 Hours (Table) 05/28/22 05/28/22 05/29/22 Range/Units 17:53 23:49 04:40 RBC 3.86 L (4.30-5.90) m/uL Hgb 11.7 L (13.0-17.5) gm/dL Hct 35.6 L (39.0-53.0) % Plt Count 123 L (150-450) k/uL Lymphocytes # 0.6 L (1.0-4.8) k/uL ABG pH (7.35-7.45) ABG pO2 (83-108) mmHg ABG HCO3 (21-25) mmol/L ABG O2 Saturation (94-97) % Chloride (98-107) mmol/L Carbon Dioxide (22-30) mmol/L Glucose (74-99) mg/dL POC Glucose (mg/dL) 159 H 152 H (75-99) mg/dL Calcium (8.4-10.2) mg/dL 09/14/21 09/14/21 09/14/21 Range/Units 04:40 05:28 07:13 RBC (4.30-5.90) m/uL Hgb (13.0-17.5) gm/dL Hct (39.0-53.0) % Plt Count (150-450) k/uL Lymphocytes # (1.0-4.8) k/uL ABG pH 7.34 L (7.35-7.45) ABG pO2 79 L (83-108) mmHg ABG HCO3 20 L (21-25) mmol/L ABG O2 Saturation 97.4 H (94-97) % Chloride 116 H (98-107) mmol/L Carbon Dioxide 17 L (22-30) mmol/L Glucose 131 H (74-99) mg/dL POC Glucose (mg/dL) 126 H (75-99) mg/dL Calcium 7.4 L (8.4-10.2) mg/dL 09/14/21 Range/Units 11:47 RBC (4.30-5.90) m/uL Hgb (13.0-17.5) gm/dL Hct (39.0-53.0) % Plt Count (150-450) k/uL Lymphocytes # (1.0-4.8) k/uL ABG pH (7.35-7.45) ABG pO2 (83-108) mmHg ABG HCO3 (21-25) mmol/L ABG O2 Saturation (94-97) % Chloride (98-107) mmol/L Carbon Dioxide (22-30) mmol/L Glucose (74-99) mg/dL POC Glucose (mg/dL) 157 H (75-99) mg/dL Calcium (8.4-10.2) mg/dL Microbiology - Last 24 Hours (Table) 09/11/21 11:54 CSF Gram Stain - Preliminary Cerebral Spinal Fluid CSF Culture - Preliminary 09/12/21 01:00 Gram Stain - Final Sputum Sputum Culture - Preliminary 09/11/21 01:05 Blood Culture - Preliminary Blood No Growth after 72 hours 09/11/21 00:50 Blood Culture - Preliminary Blood No Growth after 72 hours 09/13/21 12:50 Group A Strep Throat Culture - Preliminary Throat Assessment and Plan Assessment: Septic encephalopathy Encephalopathy of unknown source. (Not menenigoencephalitis since CSF is negative (3 nucleated cells), no leukocytosis and supple neck). Likely elevated CSF protein and glucose from underlying infection and unknown source. Elevated troponin. History of septic arthritis of the left knee History of ischemic cardiomyopathy, gastric outlet obstruction status post the EGD Diabetes Plan: EEG was abnormal. Background slowing is suggestive of moderate to severe encephalopathy likely due to medication effect. No focal slowing, epileptiform discharges or seizure on the EEG. Repeat CT head 09/14/2021 revealed cerebral atrophy, no acute intracranial abnormality. No change compared to recent exam from 09/11/2021. Sinusitis. I personally reviewed CT head, and agree with the findings. There is air-fluid level in almost all sinuses including bilateral frontal, maxillary ethmoid and sphenoid sinuses. Patient already on antibiotics. ICU attending started the patient on Acylovir for possible encephalitis but it seems unlikely since CSF nulceated cells is normal. Is on Cefepime and Vacomycin and will defer modification of medication to I.D. team. Carotid duplex revealed no hemodynamic significant stenosis of the proximal ICAs. Antegrade flow in both vertebral arteries. 2-D echo 09/12/2021 revealed normal left ventricular dimension. EF is 50-55%. Moderate concentric LVH. Left atrial size normal. Infection disease team is on board. Cardiology team is consulted for atrial fibrillation Will defer rest of medical management to primary team.
[2021-09-15 11:56] LABS: Glucose,Whole Blood 141 mg/dL (75-99)
[2021-09-15 18:08] LABS: Glucose,Whole Blood 152 mg/dL (75-99)
[2021-09-16 00:27] LABS: Glucose,Whole Blood 139 mg/dL (75-99)
[2021-09-16] MEDS: ACYCLOVIR SODIUM 900 MG in SODIUM CHLORIDE 0.9% 250 ML IVPB SCH ×3 (00:34→15:41)
[2021-09-16] MEDS: INSULIN ASPART (NovoLOG) 100 UNIT/ML VIAL SQ SCH ×4 (00:35→17:26)
[2021-09-16] MEDS: CEFEPIME 2 GM in SODIUM CHLORIDE 0.9% 100 ML IVPB SCH ×3 (02:09→17:27)
[2021-09-16 04:16] LABS: HCT 34.3 % (39.0-53.0); HGB 10.8 gm/dL (13.0-17.5); MCH 29.6 pg (25.0-35.0); MCHC 31.6 g/dL (31.0-37.0); MCV 93.9 fL (80.0-100.0); Mean Platelet Volume 8.2; Platelet Count 111 k/uL (150-450); RBC 3.65 m/uL (4.30-5.90); RDW 15.5 % (11.5-15.5); WBC 3.3 k/uL (3.8-10.6)
[2021-09-16 04:25] LABS: African American GFR (CKD) >90 (>60 ml/min/1.73 sqM); Anion Gap 2 mmol/L; Blood Urea Nitrogen 14 mg/dL (9-20); Calcium 7.9 mg/dL (8.4-10.2); Carbon Dioxide 21 mmol/L (22-30); Chloride 117 mmol/L (98-107); Glucose 143 mg/dL (74-99); Non-African American GFR(CKD) 81 (>60 ml/min/1.73 sqM); Potassium 3.6 mmol/L (3.5-5.1); Sodium 140 mmol/L (137-145)
[2021-09-16] MEDS ORDERED: POTASSIUM BICARBONATE/CIT AC 20 MEQ TABLET.EFF NG-TUBE SCH (05:00)
[2021-09-16 05:57] LABS: Glucose,Whole Blood 143 mg/dL (75-99)
[2021-09-16 06:03] LABS: ABG Base Excess -4.2 mmol/L; ABG HCO3 21 mmol/L (21-25); ABG Oxygen Saturation 97.6 % (94-97); ABG PCO2 34 mmHg (35-45); ABG PO2 96 mmHg (83-108); ABG TCO2 22 mmol/L (19-24)
[2021-09-16 06:05] LABS: Allen Test Performed? No
--- NOTE | 2021-09-16 08:07 | XR ---
EXAMINATION TYPE: XR chest 1V portable DATE OF EXAM: 09/16/2021 COMPARISON: Chest x-ray 09/15/2021 HISTORY: Intubated TECHNIQUE: Single frontal view of the chest is obtained. FINDINGS: Endotracheal tube, NG tube, left jugular central venous catheter are again noted and are o verlying appropriate positions. Tubing is also present over the right neck which is indeterminate, co rrelate. No evident pneumothorax. Patient is rotated. Left hemidiaphragm remains obscured, there is b asilar and retrocardiac density at the left lung base. Lung volumes are low. Right hemidiaphragm is e levated. Cardiomediastinal silhouette is likely stable accounting for differences in technique. The a ugo is dense. There are overlying artifacts. IMPRESSION: Left lower lobe atelectasis versus pneumonia and possible associated effusion. Tubing ov er the right neck is indeterminate and is noted in the interval
--- NOTE | 2021-09-16 10:40 | P.PN ---
Subjective Progress Note Date: 09/16/21 Principal diagnosis: Respiratory failure. 09/13/2021, I'm seeing the patient in intensive care unit. He remains intubated on mechanical ventilator. This morning, he remains off of a fall which is running at 75 mcg/kg per minute and the patient is on a low-dose fentanyl treated adequately sedated for now. No seizure activity has been noted. He is deeply sedated and a sedation holiday is to be performed today. No new cultures are available. Due to concerns of HSV encephalitis, I started the patient yesterday on IV acyclovir pending HSV by PCR in the CSF. This has not resulted yet. The patient In terms of his respiratory status, the patient is on a mechanical ventilator. The patient this morning is on a mechanical ventilator assist control mode at the rate of 22, tidal volume is at 400 with a pack of 40 and a PEEP of 5. Chest x-ray shows some left basilar atelectatic changes. Triple-lumen catheter in the left IJ is in a good location. No evidence of any pneumothorax. OG tube is also in good location. The blood gases from today shows a pH of 7.34 with a pCO2 of 34 and pO2 of 145 and this was on FiO2 of 40%. Peak airway pressure is at 18. No significant orotracheal secretions. Hemodynamically, the patient is stable on no pressors. The patient is afebrile. Affect patient became somewhat hypothermic and earlier this morning his temperature dropped down to 95.7. He does have some external warmers applied. As such, he hasn't developed any fever since yesterday. He is covered with a combination of IV acyclovir, IV cefepime and IV vancomycin. Orthopedic surgery evaluated the left knee and as expected, there is no evidence of any septic art hritis involving the left knee. The patient had negative blood cultures. The white cell count is at 3.5 with a hemoglobin of 12 and a platelet count of 114. The rest of the blood work shows a sodium of 133, potassium is at 3.3 and he is to be replaced and the BUN of 18 with a creatinine of 1.1. Blood sugar is at 154. Calcium is at 7. Magnesium is to be replaced at 1.5. The patient's CPK level from yesterday was 1846 and a troponin peaked at 16. Urine drug screen was negative. Echocardiogram was also completed and the patient was found to have a preserved LV function. No significant valvular abnormalities. The patient had a technically difficult echo due to poor windows. Artery function with estimated to be normally at around 55%. EEG of the brain was also done yesterday that showed encephalopathy as the patient was on propofol high-dose. There was moderate to severe encephalopathy medication induced related to propofol and fentanyl. No active seizures noted. Cardiac rhythm is sinus for now. The patient is on Lovenox for cardiology therapeutic doses of 100 mg subcu every 12 hours. He is on minimal amount of pressors with levo at 0.06 mcg/kg per minute and this can be easily weaned off. No other significant events otherwise since yesterday. 09/14/2021, the patient is being seen for a follow-up. The patient remains intubated on a mechanical ventilator. He was given a breathing sedation holiday which essentially failed as the patient's respiration became quite high and the patient was becoming asynchronous with a mechanical ventilator and he did not show any adequate neurologic recovery and he was not following any commands. As such, the sedation holiday was important and the family done today. Meanwhile, the patient remains on a mechanical ventilator. This morning, he is sedated with propofol at the rate of 75 mcg/kg per minute. The patient is currently off fentanyl. He is adequately sedated for now. He remains on an assist-control mode of mechanical ventilation. Tidal volumes of 400 with a rate of 22 and FiO2 of 40% with a PEEP of 5. He is afebrile and hemodynamically is requiring low doses of pressors and the patient is currently on norepinephrine at 0.06 mcg/kg per minute. Adequate urine output. Adequate blood pressure for now. Cultures have been all negative. Awaiting HSV by PCR in the CSF and meanwhile the patient was kept on IV acyclovir. The white cell count is low at 3.8. The cultures been negative. No clear indication for an underlying septic source. The patient was covered with a combination of septic cefepime and vancomycin. The chest x-ray from today shows a left lower lobe atelectasis. No clear-cut airspace disease or consolidation. Blood gases from today shows the patient 7.34 with a pCO2 of 37 and pO2 of 79. BUN is at 40 with a creatinine of 0.9 and his sodium level is at 139. Vancomycin trough was 20.8. The patient is receiving enteral feeding for nutritional support. The patient is currently on vital high protein at the rate of 16 mL an hour which is at goal. His cardiac rhythm is sinus for now. The patient remains on Lovenox per cardiology therapeutic doses. Echocardiogram showed normal LV dysfunction and the patient has a preserved LV without any valvular disease. The patient had an acute non- STEMI. Troponin peaked at 15. 09/15/2021, the patient is being seen for a follow-up. This morning, the patient is heavily sedated with propofol running at 75 mg/kg per minute. He was given a sedation holiday during which she open up his eyes and he was thrashing and he was not following any commands and doing any purposeful activity. Based on that, the sedation holiday was discontinued and the patient was taken for another CAT scan of the chest and this was a noncontrast CAT scan which showed no acute abnormalities. As such, the patient was placed on sedation and another sedation holiday will be done today. His CAT scan of the brain showed cerebral atrophy. No acute abnormalities have been noted. No seizure activity. On today's evaluation, the patient remains on assist control mode of mechanical ventilation at the rate of 22, tidal volume of 400 and FiO2 of 40% and PEEP of 5. Chest x-ray remains unchanged with some atelectatic changes and left lung base. No significant orotracheal secretions the patient's blood gases showed a pH of 7.36 with a pCO2 of 37 and pO2 of 84. The patient is afebrile and the patient has a white count of 3.2 with a hemoglobin of 11.3 and a platelet count is at 116. Renal function is stable with a creatinine of 0.8. Sodium is at 138, serum bicarb is at 20 which is improved compared to yesterday. Meanwhile, the patient is hemodynamically stable. He is on no pressors. He is on a combination of antibiotics although we have not cultures any positive microbial growth. The patient has HSV by PCR pending in the CSF. Enteral feeding for nutritional support and the patient is currently receiving vital high protein at the rate of 16 mL an hour. The patient had an echocardiogram that showed preserved LV function. His post acute non-STEMI. Cardiology is on the case. No further intervention is recommended's point, especially the patient's cardiac rhythm is sinus and echocardiogram has not revealed any acute abnormalities. As such, the exact cause for his underlying altered mental status remains not clear and stable on that investigation. CSF protein was mildly elevated. Genital cultures revealed Bibiana albicans. Progress note dated August 2021. The patient is seen and evaluated, today in room 264. The patient was admitted back on September 11, for mental status changes, non-ST segment elevation myocardial infarction, and atrial fibrillation with rapid ventricular response. The patient was intubated following day, 09/12/2021. Mechanical ventilator. He is currently on volume assist control, rate 22, tidal volume 400, FiO2 40%, and PEEP of 5. Blood gases show a PaO2 of 96, pCO2 34, and a pH is 7.4. The blood gases consistent with a combined respiratory alkalosis and mild metabolic acidosis. The patient's getting saline at 20 mL an hour, dexmedetomidine at 0.2 mcg/kg/h, and norepinephrine at 2 mcg/m. Today, we will do a daily interruption of sedation, spontaneous breathing trial. White count 3.3, hemoglobin 10.8, hematocrit 34.3, and platelet count 111,000. Sodium 140, potassium 3.6, chlori vinod 117, CO2 21. BUN and creatinine are normal. Microbiology is currently negative, save for a positive Bibiana culture on the patient's penis. Chest x- ray shows either left lower lobe infiltrate and/or atelectasis. Objective - Vital Signs Vital signs: Vital Signs Temp 97.8 F 09/16/21 08:00 Pulse 75 09/16/21 08:15 Resp 23 09/16/21 08:15 BP 139/75 09/16/21 07:45 Pulse Ox 97 09/16/21 08:15 FiO2 404 09/16/21 08:00 Intake & Output 09/15/21 09/16/21 09/16/21 18:59 06:59 18:59 Intake Total 834.229 890.521 434.686 Output Total 1625 515 95 Balance -790.771 375.521 339.686 Weight 114.1 kg 118.5 kg Intake: IV 356 603 296 Acyclovir Sodium 900 mg 250 250 In Sodium Chloride 0.9% 250 ml @ 268 mls/hr IVPB Q8HR [facility] Rx#:[id number] Cefepime 2 gm In Sodium 100 100 Chloride 0.9% 100 ml @ 25 mls/hr IVPB Q8H [facility] Rx#: [id number] Sodium Chloride 0.9% 1, 220 220 40 000 ml @ 20 mls/hr IV . Q24H [facility] Rx#:[id number] pressure bag 36 33 6 Intake, IV Titration 256.229 21.521 76.686 Amount Dexmedetomidine/0.9% NaCl 60.806 76.686 (Pmx) 400 mcg In Empty Bag 1 bag @ 0.2 MCG/KG/HR 5.705 mls/hr IV .[id number] [facility] Rx#:[id number] Norepinephrine 8 mg In 84.056 21.521 Sodium Chloride 0.9% 250 ml @ 0.05 MCG/KG/MIN 10. 381 mls/hr IV .Q24H [facility] Rx#:[id number] propofoL 1,000 mg In 111.367 Empty Bag 1 bag @ 5 MCG/ KG/MIN 2.994 mls/hr IV . Q24H [facility] Rx#:[id number] Tube Feeding 192 176 32 Other 30 90 30 Output: Urine 1625 515 95 Other: Voiding Method Indwelling Catheter Indwelling Catheter ABP, PAP, CO, CI - Last Documented Arterial Blood Pressure 113/42 - Exam No acute distress, sedated, with an orally placed endotracheal tube and NG tube. HEENT examination is grossly unremarkable. Neck supple. Full range of motion. No adenopathy thyromegaly or neck vein distention. Cardiovascular examination reveals regular rhythm rate. S1-S2 normal. No S3 or S4. No discernible murmur noted. Heart sounds are distant. Heart rate 75 bpm. Lungs reveal scattered bilateral rhonchi. No wheezes. No crackles. Saturations are excellent on current ventilator settings. Abdomen soft bowel sounds are heard. No masses or tenderness. Extremities are intact. No cyanosis clubbing or edema. Skin is without rash or lesion. Neurologic examination cannot be adequately assessed as the patient's currently sedated on dexmedetomidine. - Labs CBC & Chem 7: 09/16/21 04:00 09/16/21 04:00 Labs: Abnormal Lab Results - Last 24 Hours (Table) 09/15/21 09/15/21 09/16/21 Range/Units 11:55 18:07 00:25 WBC (3.8-10.6) k/uL RBC (4.30-5.90) m/uL Hgb (13.0-17.5) gm/dL Hct (39.0-53.0) % Plt Count (150-450) k/uL ABG pCO2 (35-45) mmHg ABG O2 Saturation (94-97) % Chloride (98-107) mmol/L Carbon Dioxide (22-30) mmol/L Glucose (74-99) mg/dL POC Glucose (mg/dL) 141 H 152 H 139 H (75-99) mg/dL Calcium (8.4-10.2) mg/dL 09/16/21 09/16/21 09/16/21 Range/Units 04:00 04:00 05:55 WBC 3.3 L (3.8-10.6) k/uL RBC 3.65 L (4.30-5.90) m/uL Hgb 10.8 L (13.0-17.5) gm/dL Hct 34.3 L (39.0-53.0) % Plt Count 111 L (150-450) k/uL ABG pCO2 (35-45) mmHg ABG O2 Saturation (94-97) % Chloride 117 H (98-107) mmol/L Carbon Dioxide 21 L (22-30) mmol/L Glucose 143 H (74-99) mg/dL POC Glucose (mg/dL) 143 H (75-99) mg/dL Calcium 7.9 L (8.4-10.2) mg/dL 09/16/21 Range/Units 06:00 WBC (3.8-10.6) k/uL RBC (4.30-5.90) m/uL Hgb (13.0-17.5) gm/dL Hct (39.0-53.0) % Plt Count (150-450) k/uL ABG pCO2 34 L (35-45) mmHg ABG O2 Saturation 97.6 H (94-97) % Chloride (98-107) mmol/L Carbon Dioxide (22-30) mmol/L Glucose (74-99) mg/dL POC Glucose (mg/dL) (75-99) mg/dL Calcium (8.4-10.2) mg/dL Microbiology - Last 24 Hours (Table) 09/11/21 11:54 CSF Gram Stain - Final Cerebral Spinal Fluid CSF Culture - Final 09/11/21 01:05 Blood Culture - Preliminary Blood No Growth after 120 hours 09/11/21 00:50 Blood Culture - Preliminary Blood No Growth after 120 hours 09/13/21 12:50 Group A Strep Throat Culture - Final Throat Assessment and Plan Assessment: Acute respiratory failure, with mental status changes, requiring intubation and mechanical ventilation on 09/12/2001. Atrial fibrillation with rapid ventricular response. Non-ST segment elevation myocardial infarction. Coronary artery disease, with previous stenting, July 2020. History of hypertension. History of diabetes mellitus. Diabetic peripheral neuropathy. Hyperlipidemia. History of prostate cancer. Peripheral vascular occlusive disease. Osteoarthritis. History of chronic back pain. Plan: Plan dated 09/16/2021. The patient has been thoroughly evaluated for possible infection. Thus far, no infection is suspected. The patient will have a daily interruption of sedation, and a spontaneous breathing trial. The patient may be ready for a trial of extubation. The patient continues on dexmedetomidine, and a small amount of norepinephrine. The patient will continue with DVT and GI prophylaxis. Labs, x-rays, medications are all reviewed. Additional recommendations and suggestions are forthcoming. Prognosis is guarded. We will continue to follow make recommendations where appropriate. Time with Patient: Greater than 30
[2021-09-16 11:20] LABS: Glucose,Whole Blood 122 mg/dL (75-99)
[2021-09-16] MEDS: PANTOPRAZOLE 40 MG/10 ML VIAL IVP SCH (11:29)
[2021-09-16] MEDS: ENOXAPARIN 100 MG/ML SYRINGE SQ SCH ×2 (11:50→21:47)
--- NOTE | 2021-09-16 13:43 | P.PN ---
Subjective Progress Note Date: 09/16/21 HISTORY OF PRESENT ILLNESS: This is a 75-year-old male patient of mine with previous medical history significant for coronary artery disease status post percutaneous coronary inter vention and stent placement last one was in 12/13/2019 in the mid RCA at that time he was found to have a totally occluded obtuse marginal one of the LCx, with collaterals from the PDA, hypertension and hypertensive cardiovascular disease, hyperlipidemia, diabetes mellitus type 2, diabetic polyneuropathy, 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 as well as radio frequency ablation, prostate cancer status post radiation therapy, MSSA septic arthritis left knee. Patient apparently had a fall out of bed and was found on the bedroom floor and patient was transferred to [facility] emergency center for evaluation. Prior to the fall, patient has not been fee ling well for at least a few days and continued to worsen. He was reported to have a cough with weakness. Patient was taking [id number] cough medication without improvement. Initially temperature was 98.9, heart rate 99, blood pressure 145/109, pulse ox 93% on room air. Temperature max as morning is 102.8 with heart rate of 127. WBC 5.8, hemoglobin 14.1, platelet count 138. INR 1.1. Sodium 133, potassium 3.8, chloride 98, CO2 19, BUN 16 creatinine 0.88. Blood sugar 207. Lactic acid 7.3 and repeat 3.9. Calcium 9.2. Total bilirubin 1.4, AST 50, ALT 56, alkaline phosphatase 50. Troponin 0.013 followed by 2.370. Urinalysis was clear, blood moderate, RBC 6. Bacteria many. Serum alcohol level less than 10. Chronic virus PCR not detected. Influenza A not detected. Influenza B not detected. CAT scan of the brain revealed mild atrophy and chronic small vessel ischemia. No change compared to old exam. No acute intracranial abnormality. Chest x-ray, pelvis x-ray, cervical spine x-ray and abdominal and pelvic CAT scan have been completed but unable to open reports. Patient is seen today in the emergency center waiting for a bed on the cardiac stepdown unit. He has been started on heparin drip, cefepime and vancomycin and consults are in place with cardiology, infectious disease and neurology. Patient is status post diagnostic lumbar puncture completed by anesthesiology 09/12:patient went into acute respiratory failure and for airway protection he was intubated last night, and he is currently on before meals mode with a tidal volume of 450 FiO2 of 40% and PEEP of 5, his oxygen saturations. Gout, patient converted from atrial fibrillation to a normal sinus rhythm currently on amiodarone drip at 0.5 mg/m, he has been using the Levophed as well as propofol drip, for sedation, patient was also started on a cyclic severe per ICU for further coverage of possible viral meningitis, patient is to be maintained on vancomycin as well as cefepime as well, his urine output is good, he continues to be critical at this point in time. 09/13: Patient remains in the intensive care unit, currently elevated before meals mode 22 FiO2 40% and PEEP of 5 , patient continues to be sedated, had a sedation holiday today and now back on fentanyl and propofol, continues to be on IV antibiotic cefepime and vancomycin, HSV PCR pending, continues with Acyclovir 900 mg IV piggyback every 8 hours, monitor the patient very closely, prognosis continues to be guarded. 09/14: Patient was seen in intensive care unit today he continues to be on ventilator, vent setting limits before meals 22, FiO2 40% tidal volume of 400 PEEP of 5 patient tried a sedation holiday today but he continues to be very confused and barely responsive, his urine output has been adequate, he has been maintained on cefepime, vancomycin, acyclovir, continue with aggressive treatment plan, discussed with couture alterations dressmaker the need for the rest of the encephalitis panel was not sent and HSV PCR still pending at the time of dictation. 09/15: Patient was seen in the intensive care unit today, he continues to be on propofol drip, he was taken off fentanyl drip, sedation holiday was not very effective last night, he did have a good bowel movement, he continues to be on before meals mode 22 FiO2 40% and PEEP of 5 and tidal volume of 400, he has been getting cefepime, vancomycin, and acyclovir, PCR still pending, patient prognosis continues to be guarded. 09/16: Patient remains in intensive care unit. He was successfully extubated this morning by pulmonary medicine. Patient is somewhat slow/possible remnant of sedation but answers questions appropriately. Patient noted to have loose cough with sputum. Repeat chest x-ray reveals left lower lobe atelectasis versus pneumonia and possible associated effusion. Patient has been afebrile, heart rate 84, blood pressure 126/60, pulse ox 96% on 2 L nasal cannula. Repeat blood work reveals WBC 3.3, hemoglobin 10.8, platelet count 111. Sodium 140, potassium 3.6, chloride 117, CO2 21, BUN 14 creatinine 0.91. Blood sugar 143. Capillary blood glucose running between 120-143. REVIEW OF SYSTEMS: Constitutional: No Documented fever, no chills, no night sweats, reports fatigue , positive for weight loss. HEENT: No headache. No blurred vision or double vision, no loss of vision. No loss of Hearing, no ringing in the ears, no dizziness. No nasal drainage or congestion. No epistaxis. No sore throat. Respiratory: No shortness of breath, reported cough, noted sputum production. No wheezing. Cardiovascular: No chest pain, no lower extremity edema. No palpitations. No paroxysmal nocturnal dyspnea. No orthopnea. No lightheadedness or dizziness. No syncopal episodes. Gastrointestinal: Reports no abdominal pain. No nausea, vomiting. No diarrhea. No constipation. No bloody or tarry stools reports loss of appetite. Genitourinary: No dysuria, increased frequency, urgency. No urinary retention. Musculoskeletal: Positive for myalgias. positive for muscle weakness, Positive for gait dysfunction, no frequent falls, positive for low back pain . Integumentary: Sacral decubitus ulcer with pain, no lesions. No rash or pruritus. positive for bruising. No change in hair or nails. Neurologic: No aphasia. No facial droop. No change in mentation. Noted patient is slow to respond. No head injury. No headache. No paralysis. No paresthesia. Psychiatric: No depression. No anxiety. No mood swings. Endocrine: No abnormal blood sugars. No weight change. PHYSICAL EXAMINATION: General: This is 75-year-old male resting in the ICU bed and appears to be comfortable. No acute respiratory distress noted. HEENT: Head is atraumatic, normocephalic, oral mucous membranes slightly dry. Neck: Supple, no JVP, normal carotid upstroke bilaterally, no lymphadenopathy. Chest: Decreased breath sounds at the bases, few rhonchi, no expiratory wheezes, no chest wall tenderness, no intercostal retractions. Heart: First heart sound is normal, second heart sound is normal there is systolic ejection murmur 2/6 left sternal border. Abdomen: Soft, nontender, nondistended, positive bowel sounds, no hepatosplenomegaly Extremities: There is no edema no calf tenderness DP + 1 bilaterally. Neurologic examination: patient is awake and alert, somewhat slow to respond to questions but answers seem appropriate.. ASSESSMENT AND PLAN: 1. Vent dependent respiratory failure due to sepsis, successfully extubated. The source of which is not quite delineated. Patient did have a lumbar puncture that showed minimal protein pleocytosis therefore he was started on acyclovir 900 mg IV piggyback every 8 hours for possible HSV encephalitis, patient has b een covered with IV antibiotics in the form of vancomycin and cefepime, culture negative COVID-19 is negative. Continue with current vent setting, continue with aggressive treatment, lactic acid is improving, continue to monitor the patient in the intensive care unit, infectious disease, pulmonary/critical care, cardiology, and neurology are following. Computed tomography scan of the brain is negative, CT angiography is negative, lumbar puncture showed pleocytosis for possible HSV encephalitis. 2. Non-ST elevated myocardial infarction. continue with Metoprolol 25 mg bid, Atorvastatin 80 mg daily and ASA 325 mg daily. 3. Metabolic encephalopathy of unclear etiology. 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 4. History of MSSA left knee joint infection status post stage II revision,stable. 5. Severe lactic acidosis. Patient is status post 3 L of IV fluids, resolved. Blood gases reviewed . 6. paroxysmal atrial fibrillation. we will continue with Lovenox 100 mg Sc q 12hours and metoprolol 25 mg OGT bid 7. Coronary artery disease status post Left heart catheterization with PCI of the RCA on 07/30/2020. Continue patient on aspirin 325 mg daily. continue with Atorvastatin 80 mg OGT daily along with Metoprolol 25 mg OGT bid 8. Hypertension and hypertensive cardiovascular disease. Off Levophed drip, we will continue with Metoprolol 25 mg bid. 9. Hyperlipidemia. Continue Atorvastatin 80 mg daily 10. Diabetes mellitus type 2.hold off oral medication and start the patient on the sliding scale insulin or insulin drip if needed. 11. History of prostate cancer status post radiation. Stable at this time. 12. 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 13. History of Urinary retention. currently has a Shelley catheter. 14. DVT prophylaxis. continue with Lovenox 100 mg SC q 12h ours 15. GI prophylaxis. Protonix 40 mg IV push daily. 16. Patient is full code. 17. prognosis is very guarded. Impression and plan of care have been directed as dictated by the signing physician. Padma Monsalve nurse practitioner acting as scribe for signing physician. Objective - Vital Signs Vital signs: Vital Signs Temp 97.8 F 09/16/21 08:00 Pulse 84 09/16/21 12:00 Resp 12 09/16/21 12:00 BP 126/68 09/16/21 12:00 Pulse Ox 96 09/16/21 12:00 FiO2 40 09/16/21 09:00 Intake & Output 09/15/21 09/16/21 09/16/21 18:59 06:59 18:59 Intake Total 834.229 890.521 632.570 Output Total 1625 515 245 Balance -790.771 375.521 387.570 Weight 114.1 kg 118.5 kg Intake: IV 356 603 468 Acyclovir Sodium 900 mg 250 250 In Sodium Chloride 0.9% 250 ml @ 268 mls/hr IVPB Q8HR [facility] Rx#:[id number] Cefepime 2 gm In Sodium 100 100 100 Chloride 0.9% 100 ml @ 25 mls/hr IVPB Q8H [facility] Rx#: [id number] Sodium Chloride 0.9% 1, 220 220 100 000 ml @ 20 mls/hr IV . Q24H [facility] Rx#:[id number] pressure bag 36 33 18 Intake, IV Titration 256.229 21.521 102.570 Amount Dexmedetomidine/0.9% NaCl 60.806 79.729 (Pmx) 400 mcg In Empty Bag 1 bag @ 0.2 MCG/KG/HR 5.705 mls/hr IV .[id number] [facility] Rx#:[id number] Norepinephrine 8 mg In 84.056 21.521 22.841 Sodium Chloride 0.9% 250 ml @ 0.05 MCG/KG/MIN 10. 381 mls/hr IV .Q24H [facility] Rx#:[id number] propofoL 1,000 mg In 111.367 Empty Bag 1 bag @ 5 MCG/ KG/MIN 2.994 mls/hr IV . Q24H [facility] Rx#:[id number] Tube Feeding 192 176 32 Other 30 90 30 Output: Urine 1625 515 245 Other: Voiding Method Indwelling Catheter Indwelling Catheter Indwelling Catheter ABP, PAP, CO, CI - Last Documented Arterial Blood Pressure 149/60 - Labs CBC & Chem 7: 09/16/21 04:00 09/16/21 04:00 Labs: Abnormal Lab Results - Last 24 Hours (Table) 09/15/21 09/16/21 09/16/21 Range/Units 18:07 00:25 04:00 WBC 3.3 L (3.8-10.6) k/uL RBC 3.65 L (4.30-5.90) m/uL Hgb 10.8 L (13.0-17.5) gm/dL Hct 34.3 L (39.0-53.0) % Plt Count 111 L (150-450) k/uL ABG pCO2 (35-45) mmHg ABG O2 Saturation (94-97) % Chloride (98-107) mmol/L Carbon Dioxide (22-30) mmol/L Glucose (74-99) mg/dL POC Glucose (mg/dL) 152 H 139 H (75-99) mg/dL Calcium (8.4-10.2) mg/dL 09/16/21 09/16/21 09/16/21 Range/Units 04:00 05:55 06:00 WBC (3.8-10.6) k/uL RBC (4.30-5.90) m/uL Hgb (13.0-17.5) gm/dL Hct (39.0-53.0) % Plt Count (150-450) k/uL ABG pCO2 34 L (35-45) mmHg ABG O2 Saturation 97.6 H (94-97) % Chloride 117 H (98-107) mmol/L Carbon Dioxide 21 L (22-30) mmol/L Glucose 143 H (74-99) mg/dL POC Glucose (mg/dL) 143 H (75-99) mg/dL Calcium 7.9 L (8.4-10.2) mg/dL 09/16/21 Range/Units 11:18 WBC (3.8-10.6) k/uL RBC (4.30-5.90) m/uL Hgb (13.0-17.5) gm/dL Hct (39.0-53.0) % Plt Count (150-450) k/uL ABG pCO2 (35-45) mmHg ABG O2 Saturation (94-97) % Chloride (98-107) mmol/L Carbon Dioxide (22-30) mmol/L Glucose (74-99) mg/dL POC Glucose (mg/dL) 122 H (75-99) mg/dL Calcium (8.4-10.2) mg/dL Microbiology - Last 24 Hours (Table) 09/11/21 11:54 CSF Gram Stain - Final Cerebral Spinal Fluid CSF Culture - Final 09/11/21 01:05 Blood Culture - Preliminary Blood No Growth after 120 hours 09/11/21 00:50 Blood Culture - Preliminary Blood No Growth after 120 hours
[2021-09-16] MEDS: NOREPINEPHRINE 8 MG in SODIUM CHLORIDE 0.9% 250 ML IV SCH (13:45)
[2021-09-16] MEDS: ASPIRIN 325 MG TAB PO SCH (14:14)
[2021-09-16] MEDS: METOPROLOL TARTRATE 25 MG TAB PO SCH ×2 (14:15→20:56)
[2021-09-16] MEDS: ATORVASTATIN 80 MG TAB PO SCH (14:15)
[2021-09-16] MEDS: SODIUM CHLORIDE 0.9% 1,000 ML IV SCH (14:15)
--- NOTE | 2021-09-16 14:55 | P.PN ---
Subjective Progress Note Date: 09/16/21 09/16/2021: Patient was seen for a follow-up. Patient's to be intubated. Ready for extubation. Patient denies any headache. Patient is following commands very well. Please refer to examination below. 09/14/2021: Patient was seen by Dr. Trevor Louis. Please refer to his note for details. I'm seeing this patient for the first time. Patient is a 76-year-old male with altered mental status. Patient had a CSF checked, and WBCs were 3. Proteins were elevated. Unknown source of fever/sepsis. EEG showed moderate to severe encephalopathy. Patient currently on propofol 75 g per program per minute. Patient also on acyclovir. Per nursing report, when the sedation holiday was performed, he squeeze the hands once, open the eyes once, but not consistently. He was not wa dru up. Patient became tachypneic therefore started back on sedation. Patient's blood tests from today shows a BBC 3.8 with no shift. Hemoglobin 11.7, platelet 123. Electrolytes, renal functions are normal. Vancomycin trough level 20.8. Hemoglobin A1c 6.0 on 07/29/2021. B12 710 on 09/20/2020. Methylmalonic acid normal 0.13. Folate 6.1. Started folate replacement. CT head was performed and it is reported as cerebral atrophy but there is noticeable more atrophy in the frontal lobes. No acute intracranial abnormality. Limited exam. No change compared to exam earlier today. I also p ersonally reviewed the CT of the head and it was difficult to assess the CT because of motion artifact. Regarding the bilateral frontal atrophy more than a global atrophy was hard to assess again for because of limitation. CT angiography of the head is reported as negative. While CT angiography of the neck was reported as shows stenosis above the origin of both internal carotid arteries and in the body report is reported that the patient has 75% stenosis in the left ICA and 30% stenosis in the right ICA. CSF: clear, colorless, 3 rbc, 3 total nucleated cells, glucose 116, total protein 116. CSF gram stain is no organism. Blood culture is no organism seen in 24 hours. Objective - Vital Signs Vital signs: Vital Signs Temp 97.8 F 09/16/21 08:00 Pulse 75 09/16/21 08:15 Resp 23 09/16/21 08:15 BP 139/75 09/16/21 07:45 Pulse Ox 97 09/16/21 08:15 FiO2 404 09/16/21 08:00 Intake & Output 09/15/21 09/16/21 09/16/21 18:59 06:59 18:59 Intake Total 834.229 890.521 434.686 Output Total 1625 515 95 Balance -790.771 375.521 339.686 Weight 114.1 kg 118.5 kg Intake: IV 356 603 296 Acyclovir Sodium 900 mg 250 250 In Sodium Chloride 0.9% 250 ml @ 268 mls/hr IVPB Q8HR [facility] Rx#:[id number] Cefepime 2 gm In Sodium 100 100 Chloride 0.9% 100 ml @ 25 mls/hr IVPB Q8H [facility] Rx#: [id number] Sodium Chloride 0.9% 1, 220 220 40 000 ml @ 20 mls/hr IV . Q24H [facility] Rx#:[id number] pressure bag 36 33 6 Intake, IV Titration 256.229 21.521 76.686 Amount Dexmedetomidine/0.9% NaCl 60.806 76.686 (Pmx) 400 mcg In Empty Bag 1 bag @ 0.2 MCG/KG/HR 5.705 mls/hr IV .[id number] [facility] Rx#:[id number] Norepinephrine 8 mg In 84.056 21.521 Sodium Chloride 0.9% 250 ml @ 0.05 MCG/KG/MIN 10. 381 mls/hr IV .Q24H [facility] Rx#:[id number] propofoL 1,000 mg In 111.367 Empty Bag 1 bag @ 5 MCG/ KG/MIN 2.994 mls/hr IV . Q24H [facility] Rx#:[id number] Tube Feeding 192 176 32 Other 30 90 30 Output: Urine 1625 515 95 Other: Voiding Method Indwelling Catheter Indwelling Catheter ABP, PAP, CO, CI - Last Documented Arterial Blood Pressure 113/42 - Exam Patient somnolent, intubated. However patient does open his eyes, makes eye contact, follows commands. Denies headache. Patient's fur blender is very equal bilaterally. Patient wiggling his feet appears normal strength. Detailed testi ng could not be performed. Pupils are equal, round and reacting. Tone is equal bilaterally. No obvious focality. - Labs CBC & Chem 7: 09/16/21 04:00 09/16/21 04:00 Labs: Abnormal Lab Results - Last 24 Hours (Table) 09/15/21 09/15/21 09/16/21 Range/Units 11:55 18:07 00:25 WBC (3.8-10.6) k/uL RBC (4.30-5.90) m/uL Hgb (13.0-17.5) gm/dL Hct (39.0-53.0) % Plt Count (150-450) k/uL ABG pCO2 (35-45) mmHg ABG O2 Saturation (94-97) % Chloride (98-107) mmol/L Carbon Dioxide (22-30) mmol/L Glucose (74-99) mg/dL POC Glucose (mg/dL) 141 H 152 H 139 H (75-99) mg/dL Calcium (8.4-10.2) mg/dL 09/16/21 09/16/21 09/16/21 Range/Units 04:00 04:00 05:55 WBC 3.3 L (3.8-10.6) k/uL RBC 3.65 L (4.30-5.90) m/uL Hgb 10.8 L (13.0-17.5) gm/dL Hct 34.3 L (39.0-53.0) % Plt Count 111 L (150-450) k/uL ABG pCO2 (35-45) mmHg ABG O2 Saturation (94-97) % Chloride 117 H (98-107) mmol/L Carbon Dioxide 21 L (22-30) mmol/L Glucose 143 H (74-99) mg/dL POC Glucose (mg/dL) 143 H (75-99) mg/dL Calcium 7.9 L (8.4-10.2) mg/dL 09/16/21 Range/Units 06:00 WBC (3.8-10.6) k/uL RBC (4.30-5.90) m/uL Hgb (13.0-17.5) gm/dL Hct (39.0-53.0) % Plt Count (150-450) k/uL ABG pCO2 34 L (35-45) mmHg ABG O2 Saturation 97.6 H (94-97) % Chloride (98-107) mmol/L Carbon Dioxide (22-30) mmol/L Glucose (74-99) mg/dL POC Glucose (mg/dL) (75-99) mg/dL Calcium (8.4-10.2) mg/dL Microbiology - Last 24 Hours (Table) 09/11/21 11:54 CSF Gram Stain - Final Cerebral Spinal Fluid CSF Culture - Final 09/11/21 01:05 Blood Culture - Preliminary Blood No Growth after 120 hours 09/11/21 00:50 Blood Culture - Preliminary Blood No Growth after 120 hours 09/13/21 12:50 Group A Strep Throat Culture - Final Throat Assessment and Plan Assessment: Septic encephalopathy Encephalopathy of unknown source. (Not menenigoencephalitis since CSF is negative (3 nucleated cells), no leukocytosis and supple neck). Likely elevated CSF protein and glucose from underlying infection and unknown source. Elevated troponin. History of septic arthritis of the left knee History of ischemic cardiomyopathy, gastric outlet obstruction status post the EGD Diabetes Plan: Patient's mentation has improved remarkably. Patient is following commands. Patient will be extubated shortly. I did see patient post extubation as well. Appeared comfortable. EEG was abnormal. Background slowing is suggestive of moderate to severe encephalopathy likely due to medication effect. No focal slowing, epileptiform discharges or seizure on the EEG. Repeat CT head 09/14/2021 revealed cerebral atrophy, no acute intracranial abnormality. No change compared to recent exam from 09/11/2021. Sinusitis. I personally reviewed CT head, and agree with the findings. There is air-fluid level in almost all sinuses including bilateral frontal, maxillary ethmoid and sphenoid sinuses. Patient already on antibiotics. ICU attending started the patient on Acylovir for possible encephalitis but it s eems unlikely since CSF nulceated cells is normal. Is on Cefepime and Vacomycin and will defer modification of medication to I.D. team. Carotid duplex revealed no hemodynamic significant stenosis of the proximal ICAs. Antegrade flow in both vertebral arteries. 2-D echo 09/12/2021 revealed normal left ventricular dimension. EF is 50-55%. Moderate concentric LVH. Left atrial size normal. Continue aspirin 325 mg and Lipitor 80 mg. lipid panel showed cholesterol 131, LDL 59, HDL 30 and triglycerides 541. Hemoglobin A1c 6.0. B12 710 on 09/20/2020. Methylmalonic acid normal 0.13. Folate 6.1. Started folate replacement. Infection disease team is on board. Patient on cefepime. Cardiology team is consulted for atrial fibrillation. Patient currently on full dose anticoagulation with Lovenox 100 mg subcutaneously every 12 hour. Will defer rest of medical management to primary team.
[2021-09-16] MEDS: FOLIC ACID 1 MG TAB PO SCH (16:12)
[2021-09-16] MEDS ORDERED: METOPROLOL TARTRATE 5 MG/5 ML VIAL IVP PRN (16:13)
--- NOTE | 2021-09-16 16:35 | PN ---
PROGRESS NOTE Mr. Berkowitz is in atrial fibrillation. He is now doing well. He is extubated. He still has some lactic acidosis. He is on Lovenox 100 mg b.i.d. subcutaneously. His vital signs are stable. S1-S2 heard normally. Short systolic murmur noted. Lungs reveal diminished air entry. Abdomen and lower extremity exam unchanged. I am recommending, that given his atrial fibrillation episode, we should place him on Eliquis, but we will start it tomorrow at 5 mg b.i.d. Renal function is fair. Prognosis remains guarded. MMODL / IJN: [id number] /
[2021-09-16 17:27] LABS: Glucose,Whole Blood 81 mg/dL (75-99)
[2021-09-16] MEDS: DEXMEDETOMIDINE/0.9% NACL(PMX) 400 MCG in EMPTY BAG 1 BAG IV SCH (20:58)
[2021-09-16] MEDS ORDERED: ENALAPRILAT 1.25 MG/ML 1 ML VIAL IVP PRN (21:12)
[2021-09-17 00:06] LABS: Glucose,Whole Blood 97 mg/dL (75-99)
[2021-09-17] MEDS: INSULIN ASPART (NovoLOG) 100 UNIT/ML VIAL SQ SCH ×5 (00:08→21:18)
[2021-09-17] MEDS: ACYCLOVIR SODIUM 900 MG in SODIUM CHLORIDE 0.9% 250 ML IVPB SCH (00:09)
[2021-09-17] MEDS: CEFEPIME 2 GM in SODIUM CHLORIDE 0.9% 100 ML IVPB SCH ×2 (01:57→09:38)
[2021-09-17 04:43] LABS: Basophils % (A) 0 %; Eosinophils % (A) 0 %; HCT 30.9 % (39.0-53.0); HGB 9.9 gm/dL (13.0-17.5); Lymphocytes # (A) 0.7 k/uL (1.0-4.8); Lymphocytes % (A) 17 %; MCH 29.9 pg (25.0-35.0); MCV 93.5 fL (80.0-100.0); Mean Platelet Volume 7.9; Monocytes # (A) 0.2 k/uL (0-1.0); Monocytes % (A) 6 %; Neutrophils # (A) 2.9 k/uL (1.3-7.7); Neutrophils % (A) 75 %; Platelet Count 115 k/uL (150-450); RDW 15.5 % (11.5-15.5); WBC 3.9 k/uL (3.8-10.6)
[2021-09-17 05:35] LABS: Glucose,Whole Blood 109 mg/dL (75-99)
[2021-09-17 05:44] LABS: Potassium 3.3 mmol/L (3.5-5.1)
[2021-09-17 05:45] LABS: African American GFR (CKD) >90 (>60 ml/min/1.73 sqM); Anion Gap 2 mmol/L; Blood Urea Nitrogen 12 mg/dL (9-20); Calcium 7.8 mg/dL (8.4-10.2); Carbon Dioxide 22 mmol/L (22-30); Chloride 115 mmol/L (98-107); Glucose 107 mg/dL (74-99); Non-African American GFR(CKD) 83 (>60 ml/min/1.73 sqM); Sodium 139 mmol/L (137-145)
[2021-09-17] MEDS: POTASSIUM CHLORIDE 20 MEQ in WATER FOR INJECTION 1 100ML.BAG IVPB SCH ×2 (06:05→08:21)
--- NOTE | 2021-09-17 06:49 | P.PN ---
Subjective Progress Note Date: 09/14/21 Principal diagnosis: Fever/sepsis Patient is a 76-year-old male with multiple comorbidities was brought into the hospital after pending the patient did fell out of the bed and was found on the bedroom floor patient subsequently noticed to have a fever and he did went into respiratory distress requiring intubation. On today's evaluation that is 09/14/2021, the patien remains to be afebrile , the patient is intubated on the vent , the patient FiO2 is currently at 40%, no significant purulent secretion through the ET diarrhea or any other changes reported by the nursing staff Objective - Vital Signs Vital signs: Vital Signs Temp 7.5 F L 09/14/21 12:00 Pulse 78 09/14/21 13:00 Resp 22 09/14/21 13:00 BP 137/72 09/14/21 07:00 Pulse Ox 100 09/14/21 13:00 FiO2 40 09/14/21 12:00 Intake & Output 09/13/21 09/14/21 09/14/21 18:59 06:59 18:59 Intake Total 2300.070 1330.142 452.207 Output Total 1270 1200 1180 Balance 1030.070 130.142 -727.793 Intake: IV 1486 253 284 Acyclovir Sodium 900 mg 500 In Sodium Chloride 0.9% 250 ml @ 268 mls/hr IVPB Q8HR [facility] Rx#:[id number] Cefepime 2 gm In Sodium 50 Chloride 0.9% 100 ml @ 25 mls/hr IVPB Q12H [facility] Rx# :[id number] Cefepime 2 gm In Sodium 100 100 Chloride 0.9% 100 ml @ 25 mls/hr IVPB Q8H [facility] Rx#: [id number] Sodium Chloride 0.9% 1, 550 220 160 000 ml @ 20 mls/hr IV . Q24H [facility] Rx#:[id number] Vancomycin 1,500 mg In 250 Sodium Chloride 0.9% 250 ml @ 125 mls/hr IVPB Q16H [facility] Rx#:[id number] pressure bag 36 33 24 Intake, IV Titration 550.070 811.142 136.207 Amount Acyclovir Sodium 900 mg 250 In Sodium Chloride 0.9% 250 ml @ 268 mls/hr IVPB Q8HR [facility] Rx#:[id number] Norepinephrine 8 mg In 210.814 89.751 40.210 Sodium Chloride 0.9% 250 ml @ 0.05 MCG/KG/MIN 10. 381 mls/hr IV .Q24H [facility] Rx#:[id number] fentaNYL (PF). 1,000 mcg 76.098 In Sodium Chloride 0.9% 80 ml @ 0.5 MCG/KG/HR 4. 99 mls/hr IV .Q20H3M [facility] Rx#:[id number] propofoL 1,000 mg In 263.158 471.391 95.997 Empty Bag 1 bag @ 5 MCG/ KG/MIN 2.994 mls/hr IV . Q24H [facility] Rx#:[id number] Tube Feeding 144 176 32 Other 120 90 Output: Urine 1270 1200 1180 Other: Voiding Method Indwelling Catheter Indwelling Catheter Indwelling Catheter ABP, PAP, CO, CI - Last Documented Arterial Blood Pressure 133/61 - Exam GENERAL DESCRIPTION: An elderly male intubated on the vent RESPIRATORY SYSTEM: Unlabored breathing , decreased breath sounds at bases HEART: S1 S2 regular rate and rhythm , ABDOMEN: Soft , no tenderness EXTREMITIES: No edema feet - Labs CBC & Chem 7: 09/17/21 04:33 09/17/21 04:33 Labs: Abnormal Lab Results - Last 24 Hours (Table) 09/13/21 09/13/21 09/14/21 Range/Units 17:53 23:49 04:40 RBC 3.86 L (4.30-5.90) m/uL Hgb 11.7 L (13.0-17.5) gm/dL Hct 35.6 L (39.0-53.0) % Plt Count 123 L (150-450) k/uL Lymphocytes # 0.6 L (1.0-4.8) k/uL ABG pH (7.35-7.45) ABG pO2 (83-108) mmHg ABG HCO3 (21-25) mmol/L ABG O2 Saturation (94-97) % Chloride (98-107) mmol/L Carbon Dioxide (22-30) mmol/L Glucose (74-99) mg/dL POC Glucose (mg/dL) 159 H 152 H (75-99) mg/dL Calcium (8.4-10.2) mg/dL 09/14/21 09/14/21 09/14/21 Range/Units 04:40 05: 07:13 RBC (4.30-5.90) m/uL Hgb (13.0-17.5) gm/dL Hct (39.0-53.0) % Plt Count (150-450) k/uL Lymphocytes # (1.0-4.8) k/uL ABG pH 7.34 L (7.35-7.45) ABG pO2 79 L (83-108) mmHg ABG HCO3 20 L (21-25) mmol/L ABG O2 Saturation 97.4 H (94-97) % Chloride 116 H (98-107) mmol/L Carbon Dioxide 17 L (22-30) mmol/L Glucose 131 H (74-99) mg/dL POC Glucose (mg/dL) 126 H (75-99) mg/dL Calcium 7.4 L (8.4-10.2) mg/dL 09/14/21 Range/Units 11:47 RBC (4.30-5.90) m/uL Hgb (13.0-17.5) gm/dL Hct (39.0-53.0) % Plt Count (150-450) k/uL Lymphocytes # (1.0-4.8) k/uL ABG pH (7.35-7.45) ABG pO2 (83-108) mmHg ABG HCO3 (21-25) mmol/L ABG O2 Saturation (94-97) % Chloride (98-107) mmol/L Carbon Dioxide (22-30) mmol/L Glucose (74-99) mg/dL POC Glucose (mg/dL) 157 H (75-99) mg/dL Calcium (8.4-10.2) mg/dL Microbiology - Last 24 Hours (Table) 09/11/21 11:54 CSF Gram Stain - Preliminary Cerebral Spinal Fluid CSF Culture - Preliminary 09/12/21 01:00 Gram Stain - Final Sputum Sputum Culture - Preliminary 09/11/21 01:05 Blood Culture - Preliminary Blood No Growth after 72 hours 09/11/21 00:50 Blood Culture - Preliminary Blood No Growth after 72 hours 09/13/21 12:50 Group A Strep Throat Culture - Preliminary Throat 09/12/21 23:50 Genital Culture - Preliminary Penis Assessment and Plan (1) Sepsis Current Visit: Yes Status: Acute Code(s): A41.9 - SEPSIS, UNSPECIFIED ORGANISM SNOMED Code(s): 98154695 Plan: 1patient presented to hospital with mental status changes and fever and this patient did have a fall patient did have initial work-up for the fever including a UA chest x-ray CT abdominal pelvis has been negative patient did have history of left knee septic arthritis however the knee do not have any significant swelling or redness with minimal warmth with concern for possible NET SOLUTIONS ARCHITECT infection for which the patient did have LP completed , CSF did have some elevated protein and glucose was elevated however the white count was not significantly elevated 2patient fever has resolved and cultures are negative, patient to to continue with cefepime , acyclovir while waiting for HSV DNA by PCR to be completed 3Aquacel dressing to the sacral wound changed to 48-hour. Time with Patient: Less than 30
--- NOTE | 2021-09-17 06:50 | P.PN ---
Subjective Progress Note Date: 09/15/21 Principal diagnosis: Fever/sepsis Patient is a 76-year-old male with multiple comorbidities was brought into the hospital after pending the patient did fell out of the bed and was found on the bedroom floor patient subsequently noticed to have a fever and he did went into respiratory distress requiring intubation. On today's evaluation that is 09/15/2021, the patien continues to be afebrile , the patient remains to be intubated on the vent however the patient FiO2 is currently at 40%, no significant purulent secretion through the ET diarrhea or any other changes reported by the nursing staff Objective - Vital Signs Vital signs: Vital Signs Temp 96.3 F L 09/15/21 22:00 Pulse 46 L 09/15/21 23:15 Resp 22 09/15/21 23:15 BP 105/65 09/15/21 22:45 Pulse Ox 99 09/15/21 23:15 FiO2 40 09/15/21 23:16 Intake & Output 09/15/21 09/15/21 09/16/21 06:59 18:59 06:59 Intake Total 1615.888 834.229 186 Output Total 915 1625 260 Balance 700.888 -790.771 -74 Weight 114.1 kg 114.1 kg Intake: IV 783 356 92 Acyclovir Sodium 900 mg 250 In Sodium Chloride 0.9% 250 ml @ 268 mls/hr IVPB Q8HR [facility] Rx#:[id number] Cefepime 2 gm In Sodium 400 100 Chloride 0.9% 100 ml @ 25 mls/hr IVPB Q8H [facility] Rx#: [id number] Sodium Chloride 0.9% 1, 100 220 80 000 ml @ 20 mls/hr IV . Q24H [facility] Rx#:[id number] pressure bag 33 36 12 Intake, IV Titration 522.888 256.229 Amount Dexmedetomidine/0.9% NaCl 60.806 (Pmx) 400 mcg In Empty Bag 1 bag @ 0.2 MCG/KG/HR 5.705 mls/hr IV .[id number] [facility] Rx#:[id number] Norepinephrine 8 mg In 66.788 84.056 Sodium Chloride 0.9% 250 ml @ 0.05 MCG/KG/MIN 10. 381 mls/hr IV .Q24H [facility] Rx#:[id number] propofoL 1,000 mg In 456.100 111.367 Empty Bag 1 bag @ 5 MCG/ KG/MIN 2.994 mls/hr IV . Q24H [facility] Rx#:[id number] Tube Feeding 160 192 64 Other 150 30 30 Output: Urine 915 1625 260 Other: Voiding Method Indwelling Catheter Indwelling Catheter Indwelling Catheter ABP, PAP, CO, CI - Last Documented Arterial Blood Pressure 112/52 - Exam GENERAL DESCRIPTION: An elderly male intubated on the vent RESPIRATORY SYSTEM: Unlabored breathing , decreased breath sounds at bases HEART: S1 S2 regular rate and rhythm , ABDOMEN: Soft , no tenderness EXTREMITIES: No edema feet - Labs CBC & Chem 7: 09/17/21 04:33 09/17/21 04:33 Labs: Abnormal Lab Results - Last 24 Hours (Table) 09/14/21 09/15/21 09/15/21 Range/Units 23:41 05:29 05:55 WBC 3.2 L (3.8-10.6) k/uL RBC 3.59 L (4.30-5.90) m/uL Hgb 11.3 L (13.0-17.5) gm/dL Hct 33.4 L (39.0-53.0) % RDW 15.9 H (11.5-15.5) % Plt Count 116 L (150-450) k/uL Chloride (98-107) mmol/L Carbon Dioxide (22-30) mmol/L Glucose (74-99) mg/dL POC Glucose (mg/dL) 127 H 141 H (75-99) mg/dL Calcium (8.4-10.2) mg/dL 09/15/21 09/15/21 09/15/21 Range/Units 05:55 11:55 18:07 WBC (3.8-10.6) k/uL RBC (4.30-5.90) m/uL Hgb (13.0-17.5) gm/dL Hct (39.0-53.0) % RDW (11.5-15.5) % Plt Count (150-450) k/uL Chloride 116 H (98-107) mmol/L Carbon Dioxide 20 L (22-30) mmol/L Glucose 124 H (74-99) mg/dL POC Glucose (mg/dL) 141 H 152 H (75-99) mg/dL Calcium 7.7 L (8.4-10.2) mg/dL Microbiology - Last 24 Hours (Table) 09/11/21 11:54 CSF Gram Stain - Preliminary Cerebral Spinal Fluid CSF Culture - Preliminary 09/13/21 12:50 Group A Strep Throat Culture - Final Throat 09/11/21 01:05 Blood Culture - Preliminary Blood No Growth after 96 hours 09/11/21 00:50 Blood Culture - Preliminary Blood No Growth after 96 hours 09/12/21 23:50 Genital Culture - Preliminary Penis Bibiana albicans Assessment and Plan (1) Sepsis Current Visit: Yes Status: Acute Code(s): A41.9 - SEPSIS, UNSPECIFIED ORGANISM SNOMED Code(s): 93271744 Plan: 1patient presented to hospital with mental status changes and fever and this patient did have a fall patient did have initial work-up for the fever including a UA chest x-ray CT abdominal pelvis has been negative patient did have history of left knee septic arthritis however the knee do not have any significant swelling or redness with minimal warmth with 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 Time with Patient: Less than 30
--- NOTE | 2021-09-17 06:52 | P.PN ---
Subjective Progress Note Date: 09/16/21 Principal diagnosis: Fever/sepsis Patient is a 76-year-old male with multiple comorbidities was brought into the hospital after pending the patient did fell out of the bed and was found on the bedroom floor patient subsequently noticed to have a fever and he did went into respiratory distress requiring intubation. On today's evaluation that is 09/16/2021, the patient is afebrile , the patient has been extubated this morning , currently breathing comfortably on nasal cannula oxygen slightly lethargic, denies any chest pain and some cough no abdominal pain no diarrhea Objective - Vital Signs Vital signs: Vital Signs Temp 97.8 F 09/16/21 08:00 Pulse 84 09/16/21 12:00 Resp 12 09/16/21 12:00 BP 126/68 09/16/21 12:00 Pulse Ox 96 09/16/21 12:00 FiO2 40 09/16/21 09:00 Intake & Output 09/15/21 09/16/21 09/16/21 18:59 06:59 18:59 Intake Total 834.229 890.521 632.570 Output Total 1625 515 245 Balance -790.771 375.521 387.570 Weight 114.1 kg 118.5 kg Intake: IV 356 603 468 Acyclovir Sodium 900 mg 250 250 In Sodium Chloride 0.9% 250 ml @ 268 mls/hr IVPB Q8HR [facility] Rx#:[id number] Cefepime 2 gm In Sodium 100 100 100 Chloride 0.9% 100 ml @ 25 mls/hr IVPB Q8H [facility] Rx#: [id number] Sodium Chloride 0.9% 1, 220 220 100 000 ml @ 20 mls/hr IV . Q24H [facility] Rx#:[id number] pressure bag 36 33 18 Intake, IV Titration 256.229 21.521 102.570 Amount Dexmedetomidine/0.9% NaCl 60.806 79.729 (Pmx) 400 mcg In Empty Bag 1 bag @ 0.2 MCG/KG/HR 5.705 mls/hr IV .[id number] [facility] Rx#:[id number] Norepinephrine 8 mg In 84.056 21.521 22.841 Sodium Chloride 0.9% 250 ml @ 0.05 MCG/KG/MIN 10. 381 mls/hr IV .Q24H [facility] Rx#:[id number] propofoL 1,000 mg In 111.367 Empty Bag 1 bag @ 5 MCG/ KG/MIN 2.994 mls/hr IV . Q24H [facility] Rx#:[id number] Tube Feeding 192 176 32 Other 30 90 30 Output: Urine 1625 515 245 Other: Voiding Method Indwelling Catheter Indwelling Catheter Indwelling Catheter ABP, PAP, CO, CI - Last Documented Arterial Blood Pressure 149/60 - Exam GENERAL DESCRIPTION: An elderly male lying in bed in no distress RESPIRATORY SYSTEM: Unlabored breathing , coarse breath sounds bilaterally HEART: S1 S2 regular rate and rhythm , ABDOMEN: Soft , no tenderness EXTREMITIES: No edema feet - Labs CBC & Chem 7: 09/17/21 04:33 09/17/21 04:33 Labs: Abnormal Lab Results - Last 24 Hours (Table) 09/15/21 09/16/21 09/16/21 Range/Units 18:07 00:25 04:00 WBC 3.3 L (3.8-10.6) k/uL RBC 3.65 L (4.30-5.90) m/uL Hgb 10.8 L (13.0-17.5) gm/dL Hct 34.3 L (39.0-53.0) % Plt Count 111 L (150-450) k/uL ABG pCO2 (35-45) mmHg ABG O2 Saturation (94-97) % Chloride (98-107) mmol/L Carbon Dioxide (22-30) mmol/L Glucose (74-99) mg/dL POC Glucose (mg/dL) 152 H 139 H (75-99) mg/dL Calcium (8.4-10.2) mg/dL 09/16/21 09/16/21 09/16/21 Range/Units 04:00 05:55 06:00 WBC (3.8-10.6) k/uL RBC (4.30-5.90) m/uL Hgb (13.0-17.5) gm/dL Hct (39.0-53.0) % Plt Count (150-450) k/uL ABG pCO2 34 L (35-45) mmHg ABG O2 Saturation 97.6 H (94-97) % Chloride 117 H (98-107) mmol/L Carbon Dioxide 21 L (22-30) mmol/L Glucose 143 H (74-99) mg/dL POC Glucose (mg/dL) 143 H (75-99) mg/dL Calcium 7.9 L (8.4-10.2) mg/dL 09/16/21 Range/Units 11:18 WBC (3.8-10.6) k/uL RBC (4.30-5.90) m/uL Hgb (13.0-17.5) gm/dL Hct (39.0-53.0) % Plt Count (150-450) k/uL ABG pCO2 (35-45) mmHg ABG O2 Saturation (94-97) % Chloride (98-107) mmol/L Carbon Dioxide (22-30) mmol/L Glucose (74-99) mg/dL POC Glucose (mg/dL) 122 H (75-99) mg/dL Calcium (8.4-10.2) mg/dL Microbiology - Last 24 Hours (Table) 09/11/21 11:54 CSF Gram Stain - Final Cerebral Spinal Fluid CSF Culture - Final 09/11/21 01:05 Blood Culture - Preliminary Blood No Growth after 120 hours 09/11/21 00:50 Blood Culture - Preliminary Blood No Growth after 120 hours Assessment and Plan (1) Sepsis Current Visit: Yes Status: Acute Code(s): A41.9 - SEPSIS, UNSPECIFIED ORGANISM SNOMED Code(s): 43259261 Plan: 1patient presented to hospital with mental status changes and fever and this patient did have a fall patient did have initial work-up for the fever including a UA chest x-ray CT abdominal pelvis has been negative patient did have history of left knee septic arthritis however the knee do not have any significant swelling or redness with minimal warmth with 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 3left lower lobe atelectasis and a question of pneumonia will continue cefepime for now and monitor clinical course closely Time with Patient: Less than 30
--- NOTE | 2021-09-17 07:57 | XR ---
EXAMINATION TYPE: XR chest 1V portable DATE OF EXAM: 09/17/2021 COMPARISON: Chest x-ray 09/16/2021 HISTORY: Extubated, abnormal chest x-ray TECHNIQUE: Single frontal view of the chest is obtained. FINDINGS: Endotracheal tube, NG tube have been removed. Left jugular central venous catheter is stab le. Lung volumes are low and the patient is rotated. No evident pneumothorax or pleural effusion. Car diac mediastinal silhouette shows a similar appearance, prominence of pulmonary artery could be indic ative of pulmonary artery hypertension. Interstitium mildly increased. There is interval improvement in visualization of the left hemidiaphragm. IMPRESSION: Expiratory rotated exam and additional findings above. Suspect some improvement in aerat ion, difficult to exclude a component of volume overload, interstitial edema..
[2021-09-17] MEDS: SODIUM CHLORIDE 0.9% 1,000 ML IV SCH (08:21)
[2021-09-17] MEDS: ATORVASTATIN 80 MG TAB PO SCH (08:21)
[2021-09-17] MEDS: FOLIC ACID 1 MG TAB PO SCH (08:21)
[2021-09-17] MEDS: METOPROLOL TARTRATE 25 MG TAB PO SCH ×4 (08:22→21:16)
[2021-09-17] MEDS: PANTOPRAZOLE 40 MG/10 ML VIAL IVP SCH (08:24)
[2021-09-17] MEDS: ENOXAPARIN 100 MG/ML SYRINGE SQ SCH (08:24)
[2021-09-17 09:35] LABS: Glucose,Whole Blood 120 mg/dL (75-99)
[2021-09-17] MEDS ORDERED: SODIUM CHLORIDE 0.9% 2,000 ML IV ONE (09:35)
[2021-09-17 09:45] LABS: ABG Base Excess -2.9 mmol/L; ABG HCO3 22 mmol/L (21-25); ABG Oxygen Saturation 99.1 % (94-97); ABG PCO2 33 mmHg (35-45); ABG PH 7.42 (7.35-7.45); ABG PO2 93 mmHg (83-108); ABG TCO2 23 mmol/L (19-24)
[2021-09-17 09:46] LABS: Allen Test Performed? no
--- NOTE | 2021-09-17 10:35 | P.PN ---
Subjective Progress Note Date: 09/17/21 Principal diagnosis: Respiratory failure. 09/13/2021, I'm seeing the patient in intensive care unit. He remains intubated on mechanical ventilator. This morning, he remains off of a fall which is running at 75 mcg/kg per minute and the patient is on a low-dose fentanyl treated adequately sedated for now. No seizure activity has been noted. He is deeply sedated and a sedation holiday is to be performed today. No new cultures are available. Due to concerns of HSV encephalitis, I started the patient yesterday on IV acyclovir pending HSV by PCR in the CSF. This has not resulted yet. The patient In terms of his respiratory status, the patient is on a mechanical ventilator. The patient this morning is on a mechanical ventilator assist control mode at the rate of 22, tidal volume is at 400 with a pack of 40 and a PEEP of 5. Chest x-ray shows some left basilar atelectatic changes. Triple-lumen catheter in the left IJ is in a good location. No evidence of any pneumothorax. OG tube is also in good location. The blood gases from today shows a pH of 7.34 with a pCO2 of 34 and pO2 of 145 and this was on FiO2 of 40%. Peak airway pressure is at 18. No significant orotracheal secretions. Hemodynamically, the patient is stable on no pressors. The patient is afebrile. Affect patient became somewhat hypothermic and earlier this morning his temperature dropped down to 95.7. He does have some external warmers applied. As such, he hasn't developed any fever since yesterday. He is covered with a combination of IV acyclovir, IV cefepime and IV vancomycin. Orthopedic surgery evaluated the left knee and as expected, there is no evidence of any septic art hritis involving the left knee. The patient had negative blood cultures. The white cell count is at 3.5 with a hemoglobin of 12 and a platelet count of 114. The rest of the blood work shows a sodium of 133, potassium is at 3.3 and he is to be replaced and the BUN of 18 with a creatinine of 1.1. Blood sugar is at 154. Calcium is at 7. Magnesium is to be replaced at 1.5. The patient's CPK level from yesterday was 1846 and a troponin peaked at 16. Urine drug screen was negative. Echocardiogram was also completed and the patient was found to have a preserved LV function. No significant valvular abnormalities. The patient had a technically difficult echo due to poor windows. Artery function with estimated to be normally at around 55%. EEG of the brain was also done yesterday that showed encephalopathy as the patient was on propofol high-dose. There was moderate to severe encephalopathy medication induced related to propofol and fentanyl. No active seizures noted. Cardiac rhythm is sinus for now. The patient is on Lovenox for cardiology therapeutic doses of 100 mg subcu every 12 hours. He is on minimal amount of pressors with levo at 0.06 mcg/kg per minute and this can be easily weaned off. No other significant events otherwise since yesterday. 09/14/2021, the patient is being seen for a follow-up. The patient remains intubated on a mechanical ventilator. He was given a breathing sedation holiday which essentially failed as the patient's respiration became quite high and the patient was becoming asynchronous with a mechanical ventilator and he did not show any adequate neurologic recovery and he was not following any commands. As such, the sedation holiday was important and the family done today. Meanwhile, the patient remains on a mechanical ventilator. This morning, he is sedated with propofol at the rate of 75 mcg/kg per minute. The patient is currently off fentanyl. He is adequately sedated for now. He remains on an assist-control mode of mechanical ventilation. Tidal volumes of 400 with a rate of 22 and FiO2 of 40% with a PEEP of 5. He is afebrile and hemodynamically is requiring low doses of pressors and the patient is currently on norepinephrine at 0.06 mcg/kg per minute. Adequate urine output. Adequate blood pressure for now. Cultures have been all negative. Awaiting HSV by PCR in the CSF and meanwhile the patient was kept on IV acyclovir. The white cell count is low at 3.8. The cultures been negative. No clear indication for an underlying septic source. The patient was covered with a combination of septic cefepime and vancomycin. The chest x-ray from today shows a left lower lobe atelectasis. No clear-cut airspace disease or consolidation. Blood gases from today shows the patient 7.34 with a pCO2 of 37 and pO2 of 79. BUN is at 40 with a creatinine of 0.9 and his sodium level is at 139. Vancomycin trough was 20.8. The patient is receiving enteral feeding for nutritional support. The patient is currently on vital high protein at the rate of 16 mL an hour which is at goal. His cardiac rhythm is sinus for now. The patient remains on Lovenox per cardiology therapeutic doses. Echocardiogram showed normal LV dysfunction and the patient has a preserved LV without any valvular disease. The patient had an acute non- STEMI. Troponin peaked at 15. 09/15/2021, the patient is being seen for a follow-up. This morning, the patient is heavily sedated with propofol running at 75 mg/kg per minute. He was given a sedation holiday during which she open up his eyes and he was thrashing and he was not following any commands and doing any purposeful activity. Based on that, the sedation holiday was discontinued and the patient was taken for another CAT scan of the chest and this was a noncontrast CAT scan which showed no acute abnormalities. As such, the patient was placed on sedation and another sedation holiday will be done today. His CAT scan of the brain showed cerebral atrophy. No acute abnormalities have been noted. No seizure activity. On today's evaluation, the patient remains on assist control mode of mechanical ventilation at the rate of 22, tidal volume of 400 and FiO2 of 40% and PEEP of 5. Chest x-ray remains unchanged with some atelectatic changes and left lung base. No significant orotracheal secretions the patient's blood gases showed a pH of 7.36 with a pCO2 of 37 and pO2 of 84. The patient is afebrile and the patient has a white count of 3.2 with a hemoglobin of 11.3 and a platelet count is at 116. Renal function is stable with a creatinine of 0.8. Sodium is at 138, serum bicarb is at 20 which is improved compared to yesterday. Meanwhile, the patient is hemodynamically stable. He is on no pressors. He is on a combination of antibiotics although we have not cultures any positive microbial growth. The patient has HSV by PCR pending in the CSF. Enteral feeding for nutritional support and the patient is currently receiving vital high protein at the rate of 16 mL an hour. The patient had an echocardiogram that showed preserved LV function. His post acute non-STEMI. Cardiology is on the case. No further intervention is recommended's point, especially the patient's cardiac rhythm is sinus and echocardiogram has not revealed any acute abnormalities. As such, the exact cause for his underlying altered mental status remains not clear and stable on that investigation. CSF protein was mildly elevated. Genital cultures revealed Bibiana albicans. Progress note dated August 2021. The patient is seen and evaluated, today in room 264. The patient was admitted back on September 11, for mental status changes, non-ST segment elevation myocardial infarction, and atrial fibrillation with rapid ventricular response. The patient was intubated following day, 09/12/2021. Mechanical ventilator. He is currently on volume assist control, rate 22, tidal volume 400, FiO2 40%, and PEEP of 5. Blood gases show a PaO2 of 96, pCO2 34, and a pH is 7.4. The blood gases consistent with a combined respiratory alkalosis and mild metabolic acidosis. The patient's getting saline at 20 mL an hour, dexmedetomidine at 0.2 mcg/kg/h, and norepinephrine at 2 mcg/m. Today, we will do a daily interruption of sedation, spontaneous breathing trial. White count 3.3, hemoglobin 10.8, hematocrit 34.3, and platelet count 111,000. Sodium 140, potassium 3.6, chlori vinod 117, CO2 21. BUN and creatinine are normal. Microbiology is currently negative, save for a positive Bibiana culture on the patient's penis. Chest x- ray shows either left lower lobe infiltrate and/or atelectasis. Progress note dated 09/17/2021. The patient is seen and evaluated, in room 264. The patient was admitted back on September 11, for mental status changes, non-ST segment elevation myocardial infarction, and atrial fibrillation with rapid ventricular response. The patient was intubated for respiratory failure following day, on September 12, and was extubated yesterday, September 16. The patient is on 2 L nasal cannula. The patient is getting saline at 20 mL an hour. Because of the lower blood pressure, the patient will get a fluid bolus. Clinically, the patient's doing much better. Laboratory data shows a white count 3.9, hemoglobin 9.9, hematocrit 30.9, and platelet count of 115,000. Blood gases today show a pO2 of 93, pCO2 33, and a pH is 7.42. That's on 2 L. In addition, sodium 139, potassium 3.3, chlorides 1:15, CO2 22, BUN 12, and creatinine 0.88. Chest x-ray in my opinion just shows some atelectasis. Objective - Vital Signs Vital signs: Vital Signs Temp 97.6 F 09/17/21 08:00 Pulse 105 H 09/17/21 09:15 Resp 22 09/17/21 09:15 BP 142/63 09/17/21 08:00 Pulse Ox 99 09/17/21 09:15 FiO2 40 09/16/21 09:00 Intake & Output 09/16/21 09/17/21 09/17/21 18:59 06:59 18:59 Intake Total 1120.570 649 130 Output Total 1245 1160 110 Balance -124.430 -511 20 Weight 118.2 kg Intake: IV 956 649 130 Acyclovir Sodium 900 mg 500 250 In Sodium Chloride 0.9% 250 ml @ 268 mls/hr IVPB Q8HR [facility] Rx#:[id number] Cefepime 2 gm In Sodium 200 100 100 Chloride 0.9% 100 ml @ 25 mls/hr IVPB Q8H [facility] Rx#: [id number] Sodium Chloride 0.9% 1, 220 260 30 000 ml @ 20 mls/hr IV . Q24H [facility] Rx#:[id number] pressure bag 36 39 Intake, IV Titration 102.570 Amount Dexmedetomidine/0.9% NaCl 79.729 (Pmx) 400 mcg In Empty Bag 1 bag @ 0.2 MCG/KG/HR 5.705 mls/hr IV .[id number] [facility] Rx#:[id number] Norepinephrine 8 mg In 22.841 Sodium Chloride 0.9% 250 ml @ 0.05 MCG/KG/MIN 10. 381 mls/hr IV .Q24H [facility] Rx#:[id number] Tube Feeding 32 Other 30 Output: Urine 1245 1160 110 Other: Voiding Method Indwelling Catheter Indwelling Catheter Indwelling Catheter ABP, PAP, CO, CI - Last Documented Arterial Blood Pressure 70/36 - Exam No acute distress, on nasal O2 2 L, in no acute distress. No respiratory issues. HEENT examination is grossly unremarkable. Neck supple. Full range of motion. No adenopathy thyromegaly or neck vein distention. Cardiovascular examination reveals regular rhythm rate. S1-S2 normal. No S3 or S4. No discernible murmur noted. Heart sounds are distant. Heart rate 100 bpm. Lungs reveal scattered bilateral rhonchi. No wheezes. No crackles. Saturations are 98% on 2 L. Abdomen soft bowel sounds are heard. No masses or tenderness. Extremities are intact. No cyanosis clubbing or edema. Skin is without rash or lesion. Neurologic examination reveals a patient who is a bit lethargic/somnolent, but does arouse. - Labs CBC & Chem 7: 09/17/21 04:33 09/17/21 04:33 Labs: Abnormal Lab Results - Last 24 Hours (Table) 09/16/21 09/17/21 09/17/21 Range/Units 11:18 04:33 04:33 RBC 3.30 L (4.30-5.90) m/uL Hgb 9.9 L (13.0-17.5) gm/dL Hct 30.9 L (39.0-53.0) % Plt Count 115 L (150-450) k/uL Lymphocytes # 0.7 L (1.0-4.8) k/uL ABG pCO2 (35-45) mmHg ABG O2 Saturation (94-97) % Potassium 3.3 L (3.5-5.1) mmol/L Chloride 115 H (98-107) mmol/L Glucose 107 H (74-99) mg/dL POC Glucose (mg/dL) 122 H (75-99) mg/dL Calcium 7.8 L (8.4-10.2) mg/dL 09/17/21 09/17/21 09/17/21 Range/Units 05:33 09:34 09:43 RBC (4.30-5.90) m/uL Hgb (13.0-17.5) gm/dL Hct (39.0-53.0) % Plt Count (150-450) k/uL Lymphocytes # (1.0-4.8) k/uL ABG pCO2 33 L (35-45) mmHg ABG O2 Saturation 99.1 H (94-97) % Potassium (3.5-5.1) mmol/L Chloride (98-107) mmol/L Glucose (74-99) mg/dL POC Glucose (mg/dL) 109 H 120 H (75-99) mg/dL Calcium (8.4-10.2) mg/dL Microbiology - Last 24 Hours (Table) 09/11/21 01:05 Blood Culture - Final Blood No Growth after 144 hours 09/11/21 00:50 Blood Culture - Final Blood No Growth after 144 hours 09/12/21 23:50 Genital Culture - Final Penis Bibiana albicans 09/11/21 11:54 CSF Gram Stain - Final Cerebral Spinal Fluid CSF Culture - Final Assessment and Plan Assessment: Acute respiratory failure, with mental status changes, requiring intubation and mechanical ventilation on 09/12/2001, and successful extubation on 09/16/2021. Atrial fibrillation with rapid ventricular response, controlled. Non-ST segment elevation myocardial infarction. Coronary artery disease, with previous stenting, July 2020. History of hypertension. History of diabetes mellitus. Diabetic peripheral neuropathy. Hyperlipidemia. History of prostate cancer. Peripheral vascular occlusive disease. Osteoarthritis. History of chronic back pain. Plan: Plan dated 09/16/2021. The patient has been thoroughly evaluated for possible infection. Thus far, no infection is suspected. The patient will have a daily interruption of sedation, and a spontaneous breathing trial. The patient may be ready for a trial of extubation. The patient continues on dexmedetomidine, and a small amount of norepinephrine. The patient will continue with DVT and GI prophylaxis. Labs, x-rays, medications are all reviewed. Additional recommendations and suggestions are forthcoming. Prognosis is guarded. We will continue to follow make recommendations where appropriate. Plan dated 09/17/2021. The patient's labs, x-rays, and medications are reviewed. The patient is evaluated, and examined, in room 264. The patient was extubated yesterday. His respiratory status seems to be stable. His chest x-ray is pretty good safer some basilar atelectasis. Blood gases are reviewed. The patient will get some fluids for his mild hypotension. We'll make sure that any medications which might drop his blood pressure, heart put on hold. We will continue to follow make recommendations where appropriate. Prognosis is guarded. Time with Patient: Less than 30
--- NOTE | 2021-09-17 12:08 | PN ---
PROGRESS NOTE Mr. Berkowitz is in sinus rhythm, extubated. He looks and feels better. He has also passed a swallow test. Vitals are stable. No JVD. S1-S2 heard normally. Short systolic murmur is audible at left sternal border. Lungs reveal improved air entry. Abdomen and lower extremity exam unchanged. Patient had a bout of tachycardia, but back in sinus rhythm. I am recommending that we increase the metoprolol tartrate to 25 mg .i.d., switch him from Lovenox to Eliquis, increase activity, and he can be moved out to telemetry unit. MMODL / IJN: [id number] /
[2021-09-17 12:13] LABS: Glucose,Whole Blood 116 mg/dL (75-99)
[2021-09-17] MEDS: NOREPINEPHRINE 8 MG in SODIUM CHLORIDE 0.9% 250 ML IV SCH (12:20)
--- NOTE | 2021-09-17 16:00 | P.PN ---
Subjective Progress Note Date: 09/17/21 HISTORY OF PRESENT ILLNESS: This is a 75-year-old male patient of mine with previous medical history significant for coronary artery disease status post percutaneous coronary inter vention and stent placement last one was in 12/13/2019 in the mid RCA at that time he was found to have a totally occluded obtuse marginal one of the LCx, with collaterals from the PDA, hypertension and hypertensive cardiovascular disease, hyperlipidemia, diabetes mellitus type 2, diabetic polyneuropathy, 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 as well as radio frequency ablation, prostate cancer status post radiation therapy, MSSA septic arthritis left knee. Patient apparently had a fall out of bed and was found on the bedroom floor and patient was transferred to [facility] emergency center for evaluation. Prior to the fall, patient has not been fee ling well for at least a few days and continued to worsen. He was reported to have a cough with weakness. Patient was taking [id number]-bctdcem cough medication without improvement. Initially temperature was 98.9, heart rate 99, blood pressure 145/109, pulse ox 93% on room air. Temperature max as morning is 102.8 with heart rate of 127. WBC 5.8, hemoglobin 14.1, platelet count 138. INR 1.1. Sodium 133, potassium 3.8, chloride 98, CO2 19, BUN 16 creatinine 0.88. Blood sugar 207. Lactic acid 7.3 and repeat 3.9. Calcium 9.2. Total bilirubin 1.4, AST 50, ALT 56, alkaline phosphatase 50. Troponin 0.013 followed by 2.370. Urinalysis was clear, blood moderate, RBC 6. Bacteria many. Serum alcohol level less than 10. Chronic virus PCR not detected. Influenza A not detected. Influenza B not detected. CAT scan of the brain revealed mild atrophy and chronic small vessel ischemia. No change compared to old exam. No acute intracranial abnormality. Chest x-ray, pelvis x-ray, cervical spine x-ray and abdominal and pelvic CAT scan have been completed but unable to open reports. Patient is seen today in the emergency center waiting for a bed on the cardiac stepdown unit. He has been started on heparin drip, cefepime and vancomycin and consults are in place with cardiology, infectious disease and neurology. Patient is status post diagnostic lumbar puncture completed by anesthesiology 09/12:patient went into acute respiratory failure and for airway protection he was intubated last night, and he is currently on before meals mode with a tidal volume of 450 FiO2 of 40% and PEEP of 5, his oxygen saturations. Gout, patient converted from atrial fibrillation to a normal sinus rhythm currently on amiodarone drip at 0.5 mg/m, he has been using the Levophed as well as propofol drip, for sedation, patient was also started on a cyclic severe per ICU for further coverage of possible viral meningitis, patient is to be maintained on vancomycin as well as cefepime as well, his urine output is good, he continues to be critical at this point in time. 09/13: Patient remains in the intensive care unit, currently elevated before meals mode 22 FiO2 40% and PEEP of 5 , patient continues to be sedated, had a sedation holiday today and now back on fentanyl and propofol, continues to be on IV antibiotic cefepime and vancomycin, HSV PCR pending, continues with Acyclovir 900 mg IV piggyback every 8 hours, monitor the patient very closely, prognosis continues to be guarded. 09/14: Patient was seen in intensive care unit today he continues to be on ventilator, vent setting limits before meals 22, FiO2 40% tidal volume of 400 PEEP of 5 patient tried a sedation holiday today but he continues to be very confused and barely responsive, his urine output has been adequate, he has been maintained on cefepime, vancomycin, acyclovir, continue with aggressive treatment plan, discussed with mailing specialist the need for the rest of the encephalitis panel was not sent and HSV PCR still pending at the time of dictation. 09/15: Patient was seen in the intensive care unit today, he continues to be on propofol drip, he was taken off fentanyl drip, sedation holiday was not very effective last night, he did have a good bowel movement, he continues to be on before meals mode 22 FiO2 40% and PEEP of 5 and tidal volume of 400, he has been getting cefepime, vancomycin, and acyclovir, PCR still pending, patient prognosis continues to be guarded. 09/16: Patient remains in intensive care unit. He was successfully extubated this morning by pulmonary medicine. Patient is somewhat slow/possible remnant of sedation but answers questions appropriately. Patient noted to have loose cough with sputum. Repeat chest x-ray reveals left lower lobe atelectasis versus pneumonia and possible associated effusion. Patient has been afebrile, heart rate 84, blood pressure 126/60, pulse ox 96% on 2 L nasal cannula. Repeat blood work reveals WBC 3.3, hemoglobin 10.8, platelet count 111. Sodium 140, potassium 3.6, chloride 117, CO2 21, BUN 14 creatinine 0.91. Blood sugar 143. Capillary blood glucose running between 120-143. 09/17: Patient remains in the intensive care unit. He is currently on oxygen at 2 L nasal cannula with pulse ox of 96%. Patient has been afebrile, blood pressure 140/65, heart rate 103. monitoring and evaluation advisor is sinus rhythm. Repeat blood work reveals WBC 3.9, hemoglobin 9.9, platelet count 115. Sodium 139, potassium 3.3, chloride 115, CO2 22, BUN 12 and creatinine 0.88. Capillary blood glucose running between 81 and 120. Patient failed swallow eval yesterday but is currently on pured diet with honey thick liquids. Repeat chest x-ray reveals suspect some improvement in aeration, difficult to exclude component of volume overload, interstitial edema. Patient remains cognitively slow, continues to have a cough with he states very little phlegm production. He is also complaining of the stomach hurting. Patient is also followed by neurology and MRI of the brain has been ordered. Patient has been resumed on eliquis by cardiology. REVIEW OF SYSTEMS: Constitutional: No Documented fever, no chills, no night sweats, reports fatigue , positive for weight loss. HEENT: No headache. No blurred vision or double vision, no loss of vision. No loss of Hearing, no ringing in the ears, no dizziness. No nasal drainage or congestion. No epistaxis. No sore throat. Respiratory: No shortness of breath, reported cough, noted sputum production. No wheezing. Cardiovascular: No chest pain, no lower extremity edema. No palpitations. No paroxysmal nocturnal dyspnea. No orthopnea. No lightheadedness or dizziness. No syncopal episodes. Gastrointestinal: Reports abdominal pain. No nausea, vomiting. No diarrhea. No constipation. No bloody or tarry stools reports loss of appetite. Genitourinary: No dysuria, increased frequency, urgency. No urinary retention. Musculoskeletal: Positive for myalgias. positive for muscle weakness, Positive for gait dysfunction, no frequent falls, positive for low back pain . Integumentary: Sacral decubitus ulcer with pain, no lesions. No rash or pruritus. positive for bruising. No change in hair or nails. Neurologic: No aphasia. No facial droop. Mild change in mentation. Noted jesus alberto ent is slow to respond. No head injury. No headache. No paralysis. No paresthesia. Psychiatric: No depression. No anxiety. No mood swings. Endocrine: No abnormal blood sugars. No weight change. PHYSICAL EXAMINATION: General: This is 75-year-old male resting in the ICU bed and appears to be comfortable. No acute respiratory distress noted. HEENT: Head is atraumatic, normocephalic, oral mucous membranes slightly dry. Neck: Supple, no JVP, normal carotid upstroke bilaterally, no lymphadenopathy. Chest: Decreased breath sounds at the bases, few rhonchi, no expiratory wheezes, no chest wall tenderness, no intercostal retractions. Heart: First heart sound is normal, second heart sound is normal there is systolic ejection murmur 2/6 left sternal border. Abdomen: Soft, nontender, nondistended, positive bowel sounds, no hepatosplenomegaly. Shelley catheter draining [place] urine. Extremities: no calf tenderness DP + 1 bilaterally. Edema to the left knee and left lower extremity. Neurologic examination: patient is awake and alert, oriented to person and place, and able to follow simple commands, somewhat slow to respond to questions but answers seem appropriate. Generalized weakness ASSESSMENT AND PLAN: 1. Vent dependent respiratory failure due to sepsis, successfully extubated. The source of which is not quite delineated. Patient did have a lumbar puncture that showed minimal protein pleocytosis therefore he was started on acyclovir 900 mg IV piggyback every 8 hours for possible HSV encephalitis which has been ruled out and acyclovir discontinued , patient has been covered with IV antibiotics in the form of vancomycin and cefepime which have been discontinued , culture negative COVID-19 is negative. Continue to monitor the patient in the intensive care unit, infectious disease, pulmonary/critical care, cardiology, and neurology are following. 2. Non-ST elevated myocardial infarction. continue with Metoprolol 25 mg bid, Atorvastatin 80 mg daily and ASA 325 mg daily. 3. Metabolic encephalopathy of unclear etiology. multifactorial. 4. History of MSSA left knee joint infection status post stage II revision,stable. 5. Severe lactic acidosis. Patient is status post 3 L of IV fluids, resolved. Blood gases reviewed . 6. paroxysmal atrial fibrillatiocardiology has resume patient on eliquis, continue metoprolol 25 mg 3 times a day. 7. Coronary artery disease status post Left heart catheterization with PCI of the RCA on 07/30/2020. Continue patient on aspirin 325 mg daily. continue with Atorvastatin 80 mg OGT daily along with Metoprolol 25 mg OGT bid 8. Hypertension and hypertensive cardiovascular disease. Off Levophed drip, we will continue with Metoprolol. 9. Hyperlipidemia. Continue Atorvastatin 80 mg daily 10. Diabetes mellitus type 2.hold off oral medication and start the patient on the sliding scale insulin. 11. History of prostate cancer status post radiation. Stable at this time. 12. 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 13. History of Urinary retention. currently has a Shelley catheter. 14. DVT prophylaxis. Eliquis. 15. GI prophylaxis. Protonix 40 mg IV push daily. 16. Patient is full code. 17. prognosis is very guarded. DISCHARGE PLAN Subacute rehab at [facility] or [facility] Impression and plan of care have been directed as dictated by the signing physician. Padma Monsalve nurse practitioner acting as scribe for signing physician. Objective - Vital Signs Vital signs: Vital Signs Temp 97.6 F 09/17/21 08:00 Pulse 103 H 09/17/21 10:25 Resp 14 09/17/21 10:25 BP 123/69 09/17/21 10:00 Pulse Ox 96 09/17/21 10:25 FiO2 40 09/16/21 09:00 Intake & Output 09/16/21 09/17/21 09/17/21 18:59 06:59 18:59 Intake Total 1120.570 649 130 Output Total 1245 1160 110 Balance -124.430 -511 20 Weight 118.2 kg Intake: IV 956 649 130 Acyclovir Sodium 900 mg 500 250 In Sodium Chloride 0.9% 250 ml @ 268 mls/hr IVPB Q8HR [facility] Rx#:[id number] Cefepime 2 gm In Sodium 200 100 100 Chloride 0.9% 100 ml @ 25 mls/hr IVPB Q8H [facility] Rx#: [id number] Sodium Chloride 0.9% 1, 220 260 30 000 ml @ 20 mls/hr IV . Q24H [facility] Rx#:[id number] pressure bag 36 39 Intake, IV Titration 102.570 Amount Dexmedetomidine/0.9% NaCl 79.729 (Pmx) 400 mcg In Empty Bag 1 bag @ 0.2 MCG/KG/HR 5.705 mls/hr IV .[id number] [facility] Rx#:[id number] Norepinephrine 8 mg In 22.841 Sodium Chloride 0.9% 250 ml @ 0.05 MCG/KG/MIN 10. 381 mls/hr IV .Q24H [facility] Rx#:[id number] Tube Feeding 32 Other 30 Output: Urine 1245 1160 110 Other: Voiding Method Indwelling Catheter Indwelling Catheter Indwelling Catheter ABP, PAP, CO, CI - Last Documented Arterial Blood Pressure 140/65 - Labs CBC & Chem 7: 09/17/21 04:33 09/17/21 04:33 Labs: Abnormal Lab Results - Last 24 Hours (Table) 09/17/21 09/17/21 09/17/21 Range/Units 04:33 04:33 05:33 RBC 3.30 L (4.30-5.90) m/uL Hgb 9.9 L (13.0-17.5) gm/dL Hct 30.9 L (39.0-53.0) % Plt Count 115 L (150-450) k/uL Lymphocytes # 0.7 L (1.0-4.8) k/uL ABG pCO2 (35-45) mmHg ABG O2 Saturation (94-97) % Potassium 3.3 L (3.5-5.1) mmol/L Chloride 115 H (98-107) mmol/L Glucose 107 H (74-99) mg/dL POC Glucose (mg/dL) 109 H (75-99) mg/dL Calcium 7.8 L (8.4-10.2) mg/dL 09/17/21 09/17/21 Range/Units 09:34 09:43 RBC (4.30-5.90) m/uL Hgb (13.0-17.5) gm/dL Hct (39.0-53.0) % Plt Count (150-450) k/uL Lymphocytes # (1.0-4.8) k/uL ABG pCO2 33 L (35-45) mmHg ABG O2 Saturation 99.1 H (94-97) % Potassium (3.5-5.1) mmol/L Chloride (98-107) mmol/L Glucose (74-99) mg/dL POC Glucose (mg/dL) 120 H (75-99) mg/dL Calcium (8.4-10.2) mg/dL Microbiology - Last 24 Hours (Table) 09/11/21 01:05 Blood Culture - Final Blood No Growth after 144 hours 09/11/21 00:50 Blood Culture - Final Blood No Growth after 144 hours 09/12/21 23:50 Genital Culture - Final Penis Bibiana albicans 09/11/21 11:54 CSF Gram Stain - Final Cerebral Spinal Fluid CSF Culture - Final
[2021-09-17 17:49] LABS: Glucose,Whole Blood 129 mg/dL (75-99)
[2021-09-17 20:56] LABS: Glucose,Whole Blood 166 mg/dL (75-99)
[2021-09-17] MEDS: APIXABAN 5 MG TAB PO SCH (21:16)
--- NOTE | 2021-09-17 22:42 | P.PN ---
Subjective Progress Note Date: 09/17/21 Principal diagnosis: Fever/sepsis Patient is a 76-year-old male with multiple comorbidities was brought into the hospital after pending the patient did fell out of the bed and was found on the bedroom floor patient subsequently noticed to have a fever and he did went into respiratory distress requiring intubation. On today's evaluation that is 09/17/2021, the patient remains to be afebrile , the patient his breathing comfortably on nasal cannula oxygen, the patient denies any chest pain and some cough no abdominal pain no diarrhea Objective - Vital Signs Vital signs: Vital Signs Temp 97.6 F 09/17/21 08:00 Pulse 111 H 09/17/21 11:35 Resp 7 L 09/17/21 11:35 BP 140/78 09/17/21 11:35 Pulse Ox 100 09/17/21 11:35 FiO2 40 09/16/21 09:00 Intake & Output 09/16/21 09/17/21 09/17/21 18:59 06:59 18:59 Intake Total 1120.570 649 130 Output Total 1245 1160 110 Balance -124.430 -511 20 Weight 118.2 kg Intake: IV 956 649 130 Acyclovir Sodium 900 mg 500 250 In Sodium Chloride 0.9% 250 ml @ 268 mls/hr IVPB Q8HR [facility] Rx#:[id number] Cefepime 2 gm In Sodium 200 100 100 Chloride 0.9% 100 ml @ 25 mls/hr IVPB Q8H [facility] Rx#: [id number] Sodium Chloride 0.9% 1, 220 260 30 000 ml @ 20 mls/hr IV . Q24H [facility] Rx#:[id number] pressure bag 36 39 Intake, IV Titration 102.570 Amount Dexmedetomidine/0.9% NaCl 79.729 (Pmx) 400 mcg In Empty Bag 1 bag @ 0.2 MCG/KG/HR 5.705 mls/hr IV .[id number] [facility] Rx#:[id number] Norepinephrine 8 mg In 22.841 Sodium Chloride 0.9% 250 ml @ 0.05 MCG/KG/MIN 10. 381 mls/hr IV .Q24H [facility] Rx#:[id number] Tube Feeding 32 Other 30 Output: Urine 1245 1160 110 Other: Voiding Method Indwelling Catheter Indwelling Catheter Indwelling Catheter ABP, PAP, CO, CI - Last Documented Arterial Blood Pressure 127/63 - Exam GENERAL DESCRIPTION: An elderly male lying in bed in no distress RESPIRATORY SYSTEM: Unlabored breathing , coarse breath sounds bilaterally HEART: S1 S2 regular rate and rhythm , ABDOMEN: Soft , no tenderness EXTREMITIES: No edema feet - Labs CBC & Chem 7: 09/17/21 04:33 09/17/21 04:33 Labs: Abnormal Lab Results - Last 24 Hours (Table) 09/17/21 09/17/21 09/17/21 Range/Units 04:33 04:33 05:33 RBC 3.30 L (4.30-5.90) m/uL Hgb 9.9 L (13.0-17.5) gm/dL Hct 30.9 L (39.0-53.0) % Plt Count 115 L (150-450) k/uL Lymphocytes # 0.7 L (1.0-4.8) k/uL ABG pCO2 (35-45) mmHg ABG O2 Saturation (94-97) % Potassium 3.3 L (3.5-5.1) mmol/L Chloride 115 H (98-107) mmol/L Glucose 107 H (74-99) mg/dL POC Glucose (mg/dL) 109 H (75-99) mg/dL Calcium 7.8 L (8.4-10.2) mg/dL 09/17/21 09/17/21 Range/Units 09:34 09:43 RBC (4.30-5.90) m/uL Hgb (13.0-17.5) gm/dL Hct (39.0-53.0) % Plt Count (150-450) k/uL Lymphocytes # (1.0-4.8) k/uL ABG pCO2 33 L (35-45) mmHg ABG O2 Saturation 99.1 H (94-97) % Potassium (3.5-5.1) mmol/L Chloride (98-107) mmol/L Glucose (74-99) mg/dL POC Glucose (mg/dL) 120 H (75-99) mg/dL Calcium (8.4-10.2) mg/dL Microbiology - Last 24 Hours (Table) 09/11/21 01:05 Blood Culture - Final Blood No Growth after 144 hours 09/11/21 00:50 Blood Culture - Final Blood No Growth after 144 hours 09/12/21 23:50 Genital Culture - Final Penis Bibiana albicans 09/11/21 11:54 CSF Gram Stain - Final Cerebral Spinal Fluid CSF Culture - Final Assessment and Plan (1) Sepsis Current Visit: Yes Status: Acute Code(s): A41.9 - SEPSIS, UNSPECIFIED ORGANISM SNOMED Code(s): 38862052 Plan: 1patient presented to hospital with mental status changes and fever and this patient did have a fall patient did have initial work-up for the fever including a UA chest x-ray CT abdominal pelvis has been negative patient did have history of left knee septic arthritis however the knee do not have any significant swelling or redness with minimal warmth with concern for possible [employer] infection for which the patient did have LP completed , CSF did have some elevated protein and glucose was elevated however the white count was not significantly elevated 2patient CSF HSV DNA by PCR came back negative acyclovir was discontinued. West Nile IgM on CSF is pending 3left lower lobe atelectasis and a question of pneumonia, cefepime has been discontinued by pulmonary patient will be monitored closely off antibiotic Time with Patient: Less than 30
[2021-09-18] MEDS: LACTATED RINGERS 1,000 ML IV SCH ×5 (00:14→09:59)
[2021-09-18 05:03] LABS: Anisocytosis Slight; HCT 23.9 % (39.0-53.0); MCH 30.2 pg (25.0-35.0); MCHC 31.7 g/dL (31.0-37.0); MCV 95.4 fL (80.0-100.0); Mean Platelet Volume 8.1; Platelet Count 144 k/uL (150-450); RDW 16.3 % (11.5-15.5); WBC 4.2 k/uL (3.8-10.6)
[2021-09-18 05:10] LABS: HGB 7.6 gm/dL (13.0-17.5)
[2021-09-18 05:17] LABS: ALT 38 U/L (4-49); AST 38 U/L (17-59); African American GFR (CKD) 75 (>60 ml/min/1.73 sqM); Albumin 2.5 g/dL (3.5-5.0); Alkaline Phosphatase 26 U/L (38-126); Anion Gap 1 mmol/L; Blood Urea Nitrogen 17 mg/dL (9-20); C Reactive Protein <0.5 mg/dL (<1.0); Calcium 7.6 mg/dL (8.4-10.2); Carbon Dioxide 22 mmol/L (22-30); Chloride 117 mmol/L (98-107); Glucose 137 mg/dL (74-99); Non-African American GFR(CKD) 65 (>60 ml/min/1.73 sqM); Potassium 3.8 mmol/L (3.5-5.1); Sodium 140 mmol/L (137-145); Total Bilirubin 0.4 mg/dL (0.2-1.3); Total Protein 4.4 g/dL (6.3-8.2)
[2021-09-18] MEDS ORDERED: POTASSIUM BICARBONATE/CIT AC 20 MEQ TABLET.EFF NG-TUBE SCH (06:00)
[2021-09-18 06:08] LABS: Glucose,Whole Blood 154 mg/dL (75-99)
[2021-09-18 06:32] LABS: Lymphocytes # (M) 0.63 k/uL (1.0-4.8); Monocytes # (M) 0.34 k/uL (0-1.0); Neutrophils # (M) 3.23 k/uL (1.3-7.7); Neutrophils % (M) 77 %; Nucleated Red Blood Cells 0 /100 WBC (0-0); Total Cells Counted 100
[2021-09-18 06:33] LABS: Anisocytosis (M) Present
[2021-09-18] MEDS: METOPROLOL TARTRATE 25 MG TAB PO SCH (06:33)
[2021-09-18] MEDS: INSULIN ASPART (NovoLOG) 100 UNIT/ML VIAL SQ SCH ×4 (06:34→20:31)
--- NOTE | 2021-09-18 08:51 | P.PN ---
Subjective Progress Note Date: 09/17/21 09/17/2021: Patient was seen for a follow-up. Patient denies headache. Spoke to the nurse, who states that patient had a few episodes of lethargy in which his blood pressure drops down to low range at around 66/42, and the pulse rate is high around 116. He arouses with sternal rub. Patient is in atrial fibrillation with rapid ventricular rate. Patient has been started on Eliquis today. Patient tells me that he has not walked for some time, as he cannot stand with his left leg. He claims right leg has been weak for some time. Does not know the cause. Apparently he has left knee replacement in the recent past, after which she had complications with septic arthritis. 09/16/2021: Patient was seen for a follow-up. Patient's to be intubated. Ready for extubation. Patient denies any headache. Patient is following commands very well. Please refer to examination below. 09/14/2021: Patient was seen by Dr. Trevor Louis. Please refer to his note for details. I'm seeing this patient for the first time. Patient is a 76-year-old male with altered mental status. Patient had a CSF checked, and WBCs were 3. Proteins were elevated. Unknown source of fever/sepsis. EEG showed moderate to severe encephalopathy. Patient currently on propofol 75 g per program per minute. Patient also on acyclovir. Per nursing report, when the sedation holiday was performed, he squeeze the hands once, open the eyes once, but not consistently. He was not waking up. Patient became tachypneic therefore started back on sedation. Patient's blood tests from today shows a BBC 3.8 with no shift. Hemoglobin 11.7, platelet 123. Electrolytes, renal functions are normal. Vancomycin trough level 20.8. Hemoglobin A1c 6.0 on 07/29/2021. B12 710 on 09/20/2020. Methylmalonic acid normal 0.13. Folate 6.1. Started folate replacement. CT head was performed and it is reported as cerebral atrophy but there is noticeable more atrophy in the frontal lobes. No acute intracranial abnormality. Limited exam. No change compared to exam earlier today. I also personally reviewed the CT of the head and it was difficult to assess the CT because of motion artifact. Regarding the bilateral frontal atrophy more than a global atrophy was hard to assess again for because of limitation. CT angiography of the head is reported as negative. While CT angiography of the neck was reported as shows stenosis above the origin of both internal carotid arteries and in the body report is reported that the patient has 75% stenosis in the left ICA and 30% stenosis in the right ICA. CSF: clear, colorless, 3 rbc, 3 total nucleated cells, glucose 116, total protei n 116. CSF gram stain is no organism. Blood culture is no organism seen in 24 hours. Objective - Vital Signs Vital signs: Vital Signs Temp 97.9 F 09/17/21 12:00 Pulse 107 H 09/17/21 14:00 Resp 25 H 09/17/21 14:00 BP 109/68 09/17/21 14:00 Pulse Ox 95 09/17/21 14:00 FiO2 40 09/16/21 09:00 Intake & Output 09/16/21 09/17/21 09/17/21 18:59 06:59 18:59 Intake Total 1120.501 946 2035 Output Total 1245 1160 210 Balance -124.430 -511 1960 Weight 118.2 kg 118.2 kg Intake: IV 720 012 6062 Acyclovir Sodium 900 mg 500 250 In Sodium Chloride 0.9% 250 ml @ 268 mls/hr IVPB Q8HR [facility] Rx#:[id number] Cefepime 2 gm In Sodium 200 100 100 Chloride 0.9% 100 ml @ 25 mls/hr IVPB Q8H [facility] Rx#: [id number] Sodium Chloride 0.9% 1, 220 260 30 000 ml @ 20 mls/hr IV . Q24H [facility] Rx#:[id number] Sodium Chloride 0.9% 2, 2040 000 ml @ 999 mls/hr IV . Q2H1M [facility] Rx#:[id number] pressure bag 36 39 Intake, IV Titration 102.570 Amount Dexmedetomidine/0.9% NaCl 79.729 (Pmx) 400 mcg In Empty Bag 1 bag @ 0.2 MCG/KG/HR 5.705 mls/hr IV .[id number] [facility] Rx#:[id number] Norepinephrine 8 mg In 22.841 Sodium Chloride 0.9% 250 ml @ 0.05 MCG/KG/MIN 10. 381 mls/hr IV .Q24H [facility] Rx#:[id number] Tube Feeding 32 Other 30 Output: Urine 1245 1160 210 Other: Voiding Method Indwelling Catheter Indwelling Catheter Indwelling Catheter ABP, PAP, CO, CI - Last Documented Arterial Blood Pressure 113/54 - Exam Patient is slightly groggy, but does wake up, and answers appropriately. He appears somewhat tired. Patient's speech is slightly slurred, but no aphasia or dysarthria. Patient states is the month of September and the year is 2020 and then said was 2022. He knows since the Hospital in [facility] and name of the current president. Cranial nerves are significant for pupils equal round and reacting. Visual adames are full. Extraocular muscles are intact. Face is symmetric. Tongue protrudes the midline. Hearing is slightly decreased. Muscle strength testing revealed left pronator drift. 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 Ankle dorsiflexion 4-/5. Sensory touch is equal with no neglect in the upper extremities. In the lower extremities patient neglects the right lower extremity with double simultaneous stimulation. Patient did not cooperate for cerebellar function testing. - Labs CBC & Chem 7: 09/18/21 03:55 09/18/21 03:55 Labs: Abnormal Lab Results - Last 24 Hours (Table) 09/17/21 09/17/21 09/17/21 Range/Units 04:33 04:33 05:33 RBC 3.30 L (4.30-5.90) m/uL Hgb 9.9 L (13.0-17.5) gm/dL Hct 30.9 L (39.0-53.0) % Plt Count 115 L (150-450) k/uL Lymphocytes # 0.7 L (1.0-4.8) k/uL ABG pCO2 (35-45) mmHg ABG O2 Saturation (94-97) % Potassium 3.3 L (3.5-5.1) mmol/L Chloride 115 H (98-107) mmol/L Glucose 107 H (74-99) mg/dL POC Glucose (mg/dL) 109 H (75-99) mg/dL Calcium 7.8 L (8.4-10.2) mg/dL 09/17/21 09/17/21 09/17/21 Range/Units 09:34 09:43 12:12 RBC (4.30-5.90) m/uL Hgb (13.0-17.5) gm/dL Hct (39.0-53.0) % Plt Count (150-450) k/uL Lymphocytes # (1.0-4.8) k/uL ABG pCO2 33 L (35-45) mmHg ABG O2 Saturation 99.1 H (94-97) % Potassium (3.5-5.1) mmol/L Chloride (98-107) mmol/L Glucose (74-99) mg/dL POC Glucose (mg/dL) 120 H 116 H (75-99) mg/dL Calcium (8.4-10.2) mg/dL Microbiology - Last 24 Hours (Table) 09/11/21 01:05 Blood Culture - Final Blood No Growth after 144 hours 09/11/21 00:50 Blood Culture - Final Blood No Growth after 144 hours 09/12/21 23:50 Genital Culture - Final Penis Bibiana albicans Assessment and Plan Assessment: * Altered mental status, likely due to metabolic encephalopathy, much improved. * Status post ventilator dependent respiratory failure, now extubated. * Patient has focal findings on examination. Probable CVA. * Atrial fibrillation, now on Eliquis * No clearcut evidence of encephalitis with normal WBC count in the CSF. Elevated CSF protein of unclear cause. * Elevated troponin. * History of septic arthritis of the left knee * History of ischemic cardiomyopathy, * gastric outlet obstruction status post the EGD * Diabetes * Obesity Plan: Patient has improved remarkably regarding mentation. Patient has focal findings on examination. We will check MRI of the brain to evaluate for an acute stroke. Patient has atrial fibrillation. Started on Eliquis. Cardiology on board. Consider decreasing aspirin from 325 mg down to 81 mg, to prevent hemorrhagic side effects. EEG was abnormal. Background slowing is suggestive of moderate to severe encephalopathy likely due to medication effect. No focal slowing, epileptiform discharges or seizure on the EEG. Repeat CT head 09/14/2021 revealed cerebral atrophy, no acute intracranial abnormality. No change compared to recent exam from 09/11/2021. Sinusitis. I personally reviewed CT head, and agree with the findings. There is air-fluid level in almost all sinuses including bilateral frontal, maxillary ethmoid and sphenoid sinuses. Patient already on antibiotics. Carotid duplex revealed no hemodynamic significant stenosis of the proximal ICA s. Antegrade flow in both vertebral arteries. 2-D echo 09/12/2021 revealed normal left ventricular dimension. EF is 50-55%. Moderate concentric LVH. Left atrial size normal. Continue aspirin 325 mg and Lipitor 80 mg. lipid panel showed cholesterol 131, LDL 59, HDL 30 and triglycerides 541. Hemoglobin A1c 6.0. B12 710 on 09/20/2020. Methylmalonic acid normal 0.13. Folate 6.1. Started folate replacement. Infection disease team is on board. Patient on cefepime. Will defer rest of medical management to primary team.
[2021-09-18] MEDS: FOLIC ACID 1 MG TAB PO SCH (09:33)
[2021-09-18] MEDS: APIXABAN 5 MG TAB PO SCH ×2 (09:33→20:32)
[2021-09-18] MEDS: ASPIRIN 325 MG TAB PO SCH (09:33)
[2021-09-18] MEDS: ATORVASTATIN 80 MG TAB PO SCH (09:33)
[2021-09-18] MEDS: PANTOPRAZOLE 40 MG/10 ML VIAL IVP SCH (09:33)
--- NOTE | 2021-09-18 10:27 | P.PN ---
Subjective Progress Note Date: 09/18/21 Principal diagnosis: Respiratory failure. 09/13/2021, I'm seeing the patient in intensive care unit. He remains intubated on mechanical ventilator. This morning, he remains off of a fall which is running at 75 mcg/kg per minute and the patient is on a low-dose fentanyl treated adequately sedated for now. No seizure activity has been noted. He is deeply sedated and a sedation holiday is to be performed today. No new cultures are available. Due to concerns of HSV encephalitis, I started the patient yesterday on IV acyclovir pending HSV by PCR in the CSF. This has not resulted yet. The patient In terms of his respiratory status, the patient is on a mechanical ventilator. The patient this morning is on a mechanical ventilator assist control mode at the rate of 22, tidal volume is at 400 with a pack of 40 and a PEEP of 5. Chest x-ray shows some left basilar atelectatic changes. Triple-lumen catheter in the left IJ is in a good location. No evidence of any pneumothorax. OG tube is also in good location. The blood gases from today shows a pH of 7.34 with a pCO2 of 34 and pO2 of 145 and this was on FiO2 of 40%. Peak airway pressure is at 18. No significant orotracheal secretions. Hemodynamically, the patient is stable on no pressors. The patient is afebrile. Affect patient became somewhat hypothermic and earlier this morning his temperature dropped down to 95.7. He does have some external warmers applied. As such, he hasn't developed any fever since yesterday. He is covered with a combination of IV acyclovir, IV cefepime and IV vancomycin. Orthopedic surgery evaluated the left knee and as expected, there is no evidence of any septic art hritis involving the left knee. The patient had negative blood cultures. The white cell count is at 3.5 with a hemoglobin of 12 and a platelet count of 114. The rest of the blood work shows a sodium of 133, potassium is at 3.3 and he is to be replaced and the BUN of 18 with a creatinine of 1.1. Blood sugar is at 154. Calcium is at 7. Magnesium is to be replaced at 1.5. The patient's CPK level from yesterday was 1846 and a troponin peaked at 16. Urine drug screen was negative. Echocardiogram was also completed and the patient was found to have a preserved LV function. No significant valvular abnormalities. The patient had a technically difficult echo due to poor windows. Artery function with estimated to be normally at around 55%. EEG of the brain was also done yesterday that showed encephalopathy as the patient was on propofol high-dose. There was moderate to severe encephalopathy medication induced related to propofol and fentanyl. No active seizures noted. Cardiac rhythm is sinus for now. The patient is on Lovenox for cardiology therapeutic doses of 100 mg subcu every 12 hours. He is on minimal amount of pressors with levo at 0.06 mcg/kg per minute and this can be easily weaned off. No other significant events otherwise since yesterday. 09/14/2021, the patient is being seen for a follow-up. The patient remains intubated on a mechanical ventilator. He was given a breathing sedation holiday which essentially failed as the patient's respiration became quite high and the patient was becoming asynchronous with a mechanical ventilator and he did not show any adequate neurologic recovery and he was not following any commands. As such, the sedation holiday was important and the family done today. Meanwhile, the patient remains on a mechanical ventilator. This morning, he is sedated with propofol at the rate of 75 mcg/kg per minute. The patient is currently off fentanyl. He is adequately sedated for now. He remains on an assist-control mode of mechanical ventilation. Tidal volumes of 400 with a rate of 22 and FiO2 of 40% with a PEEP of 5. He is afebrile and hemodynamically is requiring low doses of pressors and the patient is currently on norepinephrine at 0.06 mcg/kg per minute. Adequate urine output. Adequate blood pressure for now. Cultures have been all negative. Awaiting HSV by PCR in the CSF and meanwhile the patient was kept on IV acyclovir. The white cell count is low at 3.8. The cultures been negative. No clear indication for an underlying septic source. The patient was covered with a combination of septic cefepime and vancomycin. The chest x-ray from today shows a left lower lobe atelectasis. No clear-cut airspace disease or consolidation. Blood gases from today shows the patient 7.34 with a pCO2 of 37 and pO2 of 79. BUN is at 40 with a creatinine of 0.9 and his sodium level is at 139. Vancomycin trough was 20.8. The patient is receiving enteral feeding for nutritional support. The patient is currently on vital high protein at the rate of 16 mL an hour which is at goal. His cardiac rhythm is sinus for now. The patient remains on Lovenox per cardiology therapeutic doses. Echocardiogram showed normal LV dysfunction and the patient has a preserved LV without any valvular disease. The patient had an acute non- STEMI. Troponin peaked at 15. 09/15/2021, the patient is being seen for a follow-up. This morning, the patient is heavily sedated with propofol running at 75 mg/kg per minute. He was given a sedation holiday during which she open up his eyes and he was thrashing and he was not following any commands and doing any purposeful activity. Based on that, the sedation holiday was discontinued and the patient was taken for another CAT scan of the chest and this was a noncontrast CAT scan which showed no acute abnormalities. As such, the patient was placed on sedation and another sedation holiday will be done today. His CAT scan of the brain showed cerebral atrophy. No acute abnormalities have been noted. No seizure activity. On today's evaluation, the patient remains on assist control mode of mechanical ventilation at the rate of 22, tidal volume of 400 and FiO2 of 40% and PEEP of 5. Chest x-ray remains unchanged with some atelectatic changes and left lung base. No significant orotracheal secretions the patient's blood gases showed a pH of 7.36 with a pCO2 of 37 and pO2 of 84. The patient is afebrile and the patient has a white count of 3.2 with a hemoglobin of 11.3 and a platelet count is at 116. Renal function is stable with a creatinine of 0.8. Sodium is at 138, serum bicarb is at 20 which is improved compared to yesterday. Meanwhile, the patient is hemodynamically stable. He is on no pressors. He is on a combination of antibiotics although we have not cultures any positive microbial growth. The patient has HSV by PCR pending in the CSF. Enteral feeding for nutritional support and the patient is currently receiving vital high protein at the rate of 16 mL an hour. The patient had an echocardiogram that showed preserved LV function. His post acute non-STEMI. Cardiology is on the case. No further intervention is recommended's point, especially the patient's cardiac rhythm is sinus and echocardiogram has not revealed any acute abnormalities. As such, the exact cause for his underlying altered mental status remains not clear and stable on that investigation. CSF protein was mildly elevated. Genital cultures revealed Bibiana albicans. Progress note dated August 2021. The patient is seen and evaluated, today in room 264. The patient was admitted back on September 11, for mental status changes, non-ST segment elevation myocardial infarction, and atrial fibrillation with rapid ventricular response. The patient was intubated following day, 09/12/2021. Mechanical ventilator. He is currently on volume assist control, rate 22, tidal volume 400, FiO2 40%, and PEEP of 5. Blood gases show a PaO2 of 96, pCO2 34, and a pH is 7.4. The blood gases consistent with a combined respiratory alkalosis and mild metabolic acidosis. The patient's getting saline at 20 mL an hour, dexmedetomidine at 0.2 mcg/kg/h, and norepinephrine at 2 mcg/m. Today, we will do a daily interruption of sedation, spontaneous breathing trial. White count 3.3, hemoglobin 10.8, hematocrit 34.3, and platelet count 111,000. Sodium 140, potassium 3.6, chlori vinod 117, CO2 21. BUN and creatinine are normal. Microbiology is currently negative, save for a positive Bibiana culture on the patient's penis. Chest x- ray shows either left lower lobe infiltrate and/or atelectasis. Progress note dated 09/17/2021. The patient is seen and evaluated, in room 264. The patient was admitted back on September 11, for mental status changes, non-ST segment elevation myocardial infarction, and atrial fibrillation with rapid ventricular response. The patient was intubated for respiratory failure following day, on September 12, and was extubated yesterday, September 16. The patient is on 2 L nasal cannula. The patient is getting saline at 20 mL an hour. Because of the lower blood pressure, the patient will get a fluid bolus. Clinically, the patient's doing much better. Laboratory data shows a white count 3.9, hemoglobin 9.9, hematocrit 30.9, and platelet count of 115,000. Blood gases today show a pO2 of 93, pCO2 33, and a pH is 7.42. That's on 2 L. In addition, sodium 139, potassium 3.3, chlorides 1:15, CO2 22, BUN 12, and creatinine 0.88. Chest x-ray in my opinion just shows some atelectasis. Progress note dated 09/18/2021. The patient is again seen and evaluated, in room 264. The patient remains on 0.9 at 10 mL an hour, room air. Labs today include a white count of 4.2, hemoglobin 7.6, hematocrit 23.9, platelet count 144,000. Sodium 140, potassium 3.8, chlorides 117, CO2 22, BUN 17, creatinine 1.10. The patient feels well. The patient's blood pressures continued be somewhat labile. In my opinion, the patient could be transferred out to the 3 S. unit where he can be monitored. The patient denies any chest pain, chest pressure, palpitations, shortness of breath, cough, wheezing, phlegm production, nausea, vomiting, diarrhea, abdominal pain, or any genitourinary complaints. Objective - Vital Signs Vital signs: Vital Signs Temp 98.1 F 09/18/21 04:00 Pulse 122 H 09/18/21 07:00 Resp 16 09/18/21 07:00 BP 111/68 09/18/21 07:00 Pulse Ox 97 09/18/21 07:00 FiO2 40 09/16/21 09:00 Intake & Output 09/17/21 09/18/21 09/18/21 18:59 06:59 18:59 Intake Total 2290 240 20 Output Total 390 180 25 Balance 1900 60 -5 Weight 118.2 kg 117.7 kg Intake: IV 2290 240 20 Cefepime 2 gm In Sodium 100 Chloride 0.9% 100 ml @ 25 mls/hr IVPB Q8H [facility] Rx#: [id number] Sodium Chloride 0.9% 1, 90 000 ml @ 20 mls/hr IV . Q24H [facility] Rx#:[id number] Sodium Chloride 0.9% 2, 2100 240 20 000 ml @ 999 mls/hr IV . Q2H1M [facility] Rx#:[id number] Output: Urine 390 180 25 Other: Voiding Method Indwelling Catheter Indwelling Catheter ABP, PAP, CO, CI - Last Documented Arterial Blood Pressure 120/59 - Exam No acute distress, on room air, with saturations of 97% HEENT examination is grossly unremarkable. Neck supple. Full range of motion. No adenopathy thyromegaly or neck vein distention. Cardiovascular examination reveals regular rhythm rate. S1-S2 normal. No S3 or S4. No discernible murmur noted. Heart sounds are distant. Heart rate 110 bpm. Lungs reveal scattered bilateral rhonchi. No wheezes. No crackles. Saturations are 97% on room air. Abdomen soft bowel sounds are heard. No masses or tenderness. Extremities are intact. No cyanosis clubbing or edema. Skin is without rash or lesion. Neurologic examination reveals a patient who is a bit lethargic/somnolent, but does arouse. - Labs CBC & Chem 7: 09/18/21 03:55 09/18/21 03:55 Labs: Abnormal Lab Results - Last 24 Hours (Table) 09/17/21 09/17/21 09/17/21 Range/Units 12:12 17:48 20:54 RBC (4.30-5.90) m/uL Hgb (13.0-17.5) gm/dL Hct (39.0-53.0) % RDW (11.5-15.5) % Plt Count (150-450) k/uL Lymphocytes # (Manual) (1.0-4.8) k/uL Chloride (98-107) mmol/L Glucose (74-99) mg/dL POC Glucose (mg/dL) 116 H 129 H 166 H (75-99) mg/dL Calcium (8.4-10.2) mg/dL Alkaline Phosphatase (38-126) U/L Total Protein (6.3-8.2) g/dL Albumin (3.5-5.0) g/dL Procalcitonin (0.02-0.09) ng/mL 09/18/21 09/18/21 09/18/21 Range/Units 03:55 03:55 03:55 RBC 2.50 L (4.30-5.90) m/uL Hgb 7.6 L D (13.0-17.5) gm/dL Hct 23.9 L (39.0-53.0) % RDW 16.3 H (11.5-15.5) % Plt Count 144 L (150-450) k/uL Lymphocytes # (Manual) 0.63 L (1.0-4.8) k/uL Chloride 117 H (98-107) mmol/L Glucose 137 H (74-99) mg/dL POC Glucose (mg/dL) (75-99) mg/dL Calcium 7.6 L (8.4-10.2) mg/dL Alkaline Phosphatase 26 L (38-126) U/L Total Protein 4.4 L (6.3-8.2) g/dL Albumin 2.5 L (3.5-5.0) g/dL Procalcitonin 0.15 H (0.02-0.09) ng/mL 09/18/21 Range/Units 06:07 RBC (4.30-5.90) m/uL Hgb (13.0-17.5) gm/dL Hct (39.0-53.0) % RDW (11.5-15.5) % Plt Count (150-450) k/uL Lymphocytes # (Manual) (1.0-4.8) k/uL Chloride (98-107) mmol/L Glucose (74-99) mg/dL POC Glucose (mg/dL) 154 H (75-99) mg/dL Calcium (8.4-10.2) mg/dL Alkaline Phosphatase (38-126) U/L Total Protein (6.3-8.2) g/dL Albumin (3.5-5.0) g/dL Procalcitonin (0.02-0.09) ng/mL Assessment and Plan Assessment: Acute respiratory failure, with mental status changes, requiring intubation and mechanical ventilation on 09/12/2001, and successful extubation on 09/16/2021. Atrial fibrillation with rapid ventricular response, controlled. Non-ST segment elevation myocardial infarction. Coronary artery disease, with previous stenting, July 2020. History of hypertension. History of diabetes mellitus. Diabetic peripheral neuropathy. Hyperlipidemia. History of prostate cancer. Peripheral vascular occlusive disease. Osteoarthritis. History of chronic back pain. Plan: Plan dated 09/16/2021. The patient has been thoroughly evaluated for possible infection. Thus far, no infection is suspected. The patient will have a daily interruption of sedation, and a spontaneous breathing trial. The patient may be ready for a trial of extubation. The patient continues on dexmedetomidine, and a small amount of norepinephrine. The patient will continue with DVT and GI prophylaxis. Labs, x-rays, medications are all reviewed. Additional recommendations and suggestions are forthcoming. Prognosis is guarded. We will continue to follow make recommendations where appropriate. Plan dated 09/17/2021. The patient's labs, x-rays, and medications are reviewed. The patient is evaluated, and examined, in room 264. The patient was extubated yesterday. His respiratory status seems to be stable. His chest x-ray is pretty good safer some basilar atelectasis. Blood gases are reviewed. The patient will get some fluids for his mild hypotension. We'll make sure that any medications which might drop his blood pressure, heart put on hold. We will continue to follow make recommendations where appropriate. Prognosis is guarded. Plan dated 09/18/2021. Labs, x-rays, and medications are reviewed. The patient appears to be doing better. The patient does have some variation in his blood pressure. He should go on to 3 S. unit, where he can be monitored more closely. Most recent blood pressures have been 110/48, 111/68, and 119/70. Continue to follow the patient and make recommendations where appropriate. Prognosis is guarded. Time with Patient: Less than 30
--- NOTE | 2021-09-18 10:51 | MR ---
EXAMINATION TYPE: MR brain wo con DATE OF EXAM: 09/18/2021 COMPARISON: CT brain September 14, 2021 HISTORY: ?CVA TECHNIQUE: Multiplanar, multisequence imaging of the brain and brainstem is performed without IV cont rast. FINDINGS: Diffusion weighted images demonstrate subtle subcortical slight increased signal on diffusion-weighte d images right parietal level with slight diminished signal on ADC mapping and subtle increased T2 si gnal. Slight increased signal right superior cerebellar hemisphere on diffusion weighted images versu s opposite left side on 88 and 80 without definitive diminished signal on ADC mapping or definitive i ncreased T2 signal. Some involvement posterior right temporal lobe image 88 also cannot be excluded. There is mild to moderate ventricular and sulcal prominence redemonstrated. There is T2 hyperintensit y in the periventricular white matter identified. Midline structures demonstrate normal morphology. The craniocervical junction appears within normal limits. Normal vascular flow voids are present. Dependent fluid with mild mucosal thickening in the b ilateral maxillary sinuses and sphenoid sinuses along with bilateral frontal sinuses. More prominent fluid signal and mucosal thickening bilateral ethmoid sinuses. Increased fluid signal in the mastoid air cells bilaterally new from CT. Globes are intact bilaterally. IMPRESSION: 1. Suboptimal study due to patient motion. Evolving acute/subacute infarct right parietal lobe gas tender ior watershed region is likely present. Extension into the posterior superior temporal lobe and super ior cerebellar hemisphere cannot be excluded. 2. Background mild to moderate diffuse cerebral atrophy and chronic small vessel ischemic change. 3. Worsening paranasal sinus disease and developing mastoid fluid could reflect product of intubation .
[2021-09-18 11:34] LABS: Glucose,Whole Blood 182 mg/dL (75-99)
[2021-09-18] MEDS ORDERED: METOPROLOL TARTRATE 50 MG TAB PO STA (12:35)
[2021-09-18] MEDS: SODIUM CHLORIDE 0.9% 1,000 ML IV SCH (12:49)
--- NOTE | 2021-09-18 13:55 | P.PN ---
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 Patient apparently had a fall out of bed and was found on the bedroom floor and patient was transferred to [facility] emergency center for evaluation. Prior to the fall, patient has not been fee ling well for at least a few days and continued to worsen. He was reported to have a cough with weakness. Patient was taking [id number] cough medication without improvement. Initially temperature was 98.9, heart rate 99, blood pressure 145/109, pulse ox 93% on room air. Temperature max as morning is 102.8 with heart rate of 127. WBC 5.8, hemoglobin 14.1, platelet count 138. INR 1.1. Sodium 133, potassium 3.8, chloride 98, CO2 19, BUN 16 creatinine 0.88. Blood sugar 207. Lactic acid 7.3 and repeat 3.9. Calcium 9.2. Total bilirubin 1.4, AST 50, ALT 56, alkaline phosphatase 50. Troponin 0.013 followed by 2.370. Urinalysis was clear, blood moderate, RBC 6. Bacteria many. Serum alcohol level less than 10. Chronic virus PCR not detected. Influenza A not detected. Influenza B not detected. CAT scan of the brain revealed mild atrophy and chronic small vessel ischemia. No change compared to old exam. No acute intracranial abnormality. Chest x-ray, pelvis x-ray, cervical spine x-ray and abdominal and pelvic CAT scan have been completed but unable to open reports. Patient is seen today in the emergency center waiting for a bed on the cardiac stepdown unit. He has been started on heparin drip, cefepime and vancomycin and consults are in place with cardiology, infectious disease and neurology. Patient is status post diagnostic lumbar puncture completed by anesthesiology 09/12:patient went into acute respiratory failure and for airway protection he was intubated last night, and he is currently on before meals mode with a tidal volume of 450 FiO2 of 40% and PEEP of 5, his oxygen saturations. Gout, patient converted from atrial fibrillation to a normal sinus rhythm currently on amiodarone drip at 0.5 mg/m, he has been using the Levophed as well as propofol drip, for sedation, patient was also started on a cyclic severe per ICU for further coverage of possible viral meningitis, patient is to be maintained on vancomycin as well as cefepime as well, his urine output is good, he continues to be critical at this point in time. 09/13: Patient remains in the intensive care unit, currently elevated before meals mode 22 FiO2 40% and PEEP of 5 , patient continues to be sedated, had a sedation holiday today and now back on fentanyl and propofol, continues to be on IV antibiotic cefepime and vancomycin, HSV PCR pending, continues with Acyclovir 900 mg IV piggyback every 8 hours, monitor the patient very closely, prognosis continues to be guarded. 09/14: Patient was seen in intensive care unit today he continues to be on ventilator, vent setting limits before meals 22, FiO2 40% tidal volume of 400 PEEP of 5 patient tried a sedation holiday today but he continues to be very confused and barely responsive, his urine output has been adequate, he has been maintained on cefepime, vancomycin, acyclovir, continue with aggressive treatment plan, discussed with tarp repairer the need for the rest of the encephalitis panel was not sent and HSV PCR still pending at the time of dictation. 09/15: Patient was seen in the intensive care unit today, he continues to be on propofol drip, he was taken off fentanyl drip, sedation holiday was not very effective last night, he did have a good bowel movement, he continues to be on before meals mode 22 FiO2 40% and PEEP of 5 and tidal volume of 400, he has been getting cefepime, vancomycin, and acyclovir, PCR still pending, patient prognosis continues to be guarded. 09/16: Patient remains in intensive care unit. He was successfully extubated this morning by pulmonary medicine. Patient is somewhat slow/possible remnant of sedation but answers questions appropriately. Patient noted to have loose cough with sputum. Repeat chest x-ray reveals left lower lobe atelectasis versus pneumonia and possible associated effusion. Patient has been afebrile, heart rate 84, blood pressure 126/60, pulse ox 96% on 2 L nasal cannula. Repeat blood work reveals WBC 3.3, hemoglobin 10.8, platelet count 111. Sodium 140, potassium 3.6, chloride 117, CO2 21, BUN 14 creatinine 0.91. Blood sugar 143. Capillary blood glucose running between 120-143. 09/17: Patient remains in the intensive care unit. He is currently on oxygen at 2 L nasal cannula with pulse ox of 96%. Patient has been afebrile, blood pressure 140/65, heart rate 103. occupational medicine physician is sinus rhythm. Repeat blood work reveals WBC 3.9, hemoglobin 9.9, platelet count 115. Sodium 139, potassium 3.3, chloride 115, CO2 22, BUN 12 and creatinine 0.88. Capillary blood glucose running between 81 and 120. Patient failed swallow eval yesterday but is currently on pured diet with honey thick liquids. Repeat chest x-ray reveals suspect some improvement in aeration, difficult to exclude component of volume overload, interstitial edema. Patient remains cognitively slow, continues to have a cough with he states very little phlegm production. He is also complaining of the stomach hurting. Patient is also followed by neurology and MRI of the brain has been ordered. Patient has been resumed on eliquis by cardiology. 09/18: Patient remains in the intensive care unit. He has been cleared to transfer to cardiac stepdown unit per Dr. Louis. occupational medicine physician is atrial fibrillation with RVR and cardiology increased metoprolol. Patient has been a febrile, heart rate 125, blood pressure 143/87, pulse ox 94% on room air. Patient is to have more confusion today, talking rapidly but is more alert. Patient is eating a popsicle but complaining of abdominal pain with tenderness to the left lower quadrant and diarrhea. Stool to be sent for C. difficile toxin, and Dr. Strickland notified and patient started on oral vancomycin and await results of C. difficile testing. Otherwise, patient is not currently on antibiotics. Nystatin added for oral thrush. MRI of the brain revealed suboptimal study due to patient motion. Evolving acute/subacute infarct right parietal lobe posterior watershed region is likely present. Extension into the posterior super super superior temporal lobe and superior cerebellar hemisphere cannot be excluded. Background mild to moderate diffuse cerebral atrophy and chronic small vessel ischemic change. Worsening paranasal sinus disease. REVIEW OF SYSTEMS: Constitutional: No Documented fever, no chills, no night sweats, reports fatigue , positive for weight loss. HEENT: No headache. No blurred vision or double vision, no loss of vision. No loss of Hearing, no ringing in the ears, no dizziness. No nasal drainage or congestion. No epistaxis. No sore throat. Respiratory: No shortness of breath, reported cough, noted sputum production. No wheezing. Cardiovascular: No chest pain, no lower extremity edema. No palpitations. No paroxysmal nocturnal dyspnea. No orthopnea. No lightheadedness or dizziness. No syncopal episodes. Gastrointestinal: Reports abdominal pain. No nausea, vomiting. No diarrhea. No constipation. No bloody or tarry stools reports loss of appetite. Genitourinary: No dysuria, increased frequency, urgency. No urinary retention. Musculoskeletal: Positive for myalgias. positive for muscle weakness, Positive for gait dysfunction, no frequent falls, positive for low back pain . Integumentary: Sacral decubitus ulcer with pain, no lesions. No rash or pruritus. positive for bruising. No change in hair or nails. Neurologic: No aphasia. No facial droop. Mild change in mentation. Noted patient is slow to respond. No head injury. No headache. No paralysis. No paresthesia. Psychiatric: No depression. No anxiety. No mood swings. Endocrine: No abnormal blood sugars. No weight change. PHYSICAL EXAMINATION: General: This is 75-year-old male resting in the ICU bed and appears to be comfortable. No acute respiratory distress noted. HEENT: Head is atraumatic, normocephalic, oral mucous membranes slightly dry. Neck: Supple, no JVP, normal carotid upstroke bilaterally, no lymphadenopathy. Chest: Decreased breath sounds at the bases, few rhonchi, no expiratory wheezes, no chest wall tenderness, no intercostal retractions. Heart: First heart sound is normal, second heart sound is normal there is s ystolic ejection murmur 2/6 left sternal border. Abdomen: Soft, nontender, nondistended, positive bowel sounds, no hepatosplenomegaly. Shelley catheter draining [place] urine. Extremities: no calf tenderness DP + 1 bilaterally. Edema to the left knee and left lower extremity. Neurologic examination: patient is awake and alert, oriented to person and place, and able to follow simple commands, somewhat slow to respond to questions but answers seem appropriate. Generalized weakness ASSESSMENT AND PLAN: 1. Vent dependent respiratory failure due to sepsis, successfully extubated. The source of which is not quite delineated. Patient did have a lumbar puncture that showed minimal protein pleocytosis therefore he was started on acyclovir 900 mg IV piggyback every 8 hours for possible HSV encephalitis which has been ruled out and acyclovir discontinued , patient has been covered with IV antibiotics in the form of vancomycin and cefepime which have been discontinued , culture negative COVID-19 is negative. Continue to monitor the patient in the intensive care unit, infectious disease, pulmonary/critical care, cardiology, and neurology are following. 2. Non-ST elevated myocardial infarction. continue with Metoprolol 25 mg bid, Atorvastatin 80 mg daily and ASA 325 mg daily. 3. Metabolic encephalopathy possibly related to evolving acute/subacute infarct. Patient is followed by neurology. 4. History of MSSA left knee joint infection status post stage II revision,stable. 5. Severe lactic acidosis. Patient is status post 3 L of IV fluids, resolved. Blood gases reviewed . 6. paroxysmal atrial fibrillatiocardiology has resume patient on eliquis, continue metoprolol 25 mg 3 times a day. 7. Coronary artery disease status post Left heart catheterization with PCI of the RCA on 07/30/2020. Continue patient on aspirin 325 mg daily. continue with Atorvastatin 80 mg OGT daily along with Metoprolol 25 mg OGT bid 8. Hypertension and hypertensive cardiovascular disease. Off Levophed drip, we will continue with Metoprolol. 9. Hyperlipidemia. Continue Atorvastatin 80 mg daily 10. Diabetes mellitus type 2.hold off oral medication and start the patient on the sliding scale insulin. 11. History of prostate cancer status post radiation. Stable at this time. 12. 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 13. History of Urinary retention. currently has a Shelley catheter. 14. Diarrhea and left lower quadrant tenderness. Stool to be sent for C. difficile toxin, patient started on vancomycin 125 mg every [address] Peguero been updated. Recommendations for CT of the abdomen and pelvis if C. difficile toxin is negative. 15. DVT prophylaxis. Eliquis. 16. GI prophylaxis. Protonix 40 mg IV push daily. 17. Patient is full code. 18. prognosis is very guarded. DISCHARGE PLAN Subacute rehab at [facility] Impression and plan of care have been directed as dictated by the signing physician. Padma Monsalve nurse practitioner acting as scribe for signing physician. Objective - Vital Signs Vital signs: Vital Signs Temp 97.1 F L 09/18/21 08:00 Pulse 123 H 09/18/21 12:00 Resp 5 L 09/18/21 12:00 BP 143/87 09/18/21 12:00 Pulse Ox 94 L 09/18/21 09:00 FiO2 40 09/16/21 09:00 Intake & Output 09/17/21 09/18/21 09/18/21 18:59 06:59 18:59 Intake Total 2290 240 100 Output Total 390 180 145 Balance 1900 60 -45 Weight 118.2 kg 117.7 kg Intake: IV 2290 240 100 Cefepime 2 gm In Sodium 100 Chloride 0.9% 100 ml @ 25 mls/hr IVPB Q8H REPLACED BY [facility] Rx#: [id number] Sodium Chloride 0.9% 1, 90 20 000 ml @ 20 mls/hr IV . Q24H REPLACED BY [facility] Rx#:[id number] Sodium Chloride 0.9% 2, 2100 240 80 000 ml @ 999 mls/hr IV . Q2H1M [facility] Rx#:[id number] Output: Urine 390 180 145 Other: Voiding Method Indwelling Catheter Indwelling Catheter Indwelling Catheter ABP, PAP, CO, CI - Last Documented Arterial Blood Pressure 113/59 - Labs CBC & Chem 7: 09/18/21 03:55 09/18/21 03:55 Labs: Abnormal Lab Results - Last 24 Hours (Table) 09/17/21 09/17/21 09/18/21 Range/Units 17:48 20:54 03:55 RBC (4.30-5.90) m/uL Hgb (13.0-17.5) gm/dL Hct (39.0-53.0) % RDW (11.5-15.5) % Plt Count (150-450) k/uL Lymphocytes # (Manual) (1.0-4.8) k/uL Chloride (98-107) mmol/L Glucose (74-99) mg/dL POC Glucose (mg/dL) 129 H 166 H (75-99) mg/dL Calcium (8.4-10.2) mg/dL Alkaline Phosphatase (38-126) U/L Total Protein (6.3-8.2) g/dL Albumin (3.5-5.0) g/dL Procalcitonin 0.15 H (0.02-0.09) ng/mL 09/18/21 09/18/21 09/18/21 Range/Units 03:55 03:55 06:07 RBC 2.50 L (4.30-5.90) m/uL Hgb 7.6 L D (13.0-17.5) gm/dL Hct 23.9 L (39.0-53.0) % RDW 16.3 H (11.5-15.5) % Plt Count 144 L (150-450) k/uL Lymphocytes # (Manual) 0.63 L (1.0-4.8) k/uL Chloride 117 H (98-107) mmol/L Glucose 137 H (74-99) mg/dL POC Glucose (mg/dL) 154 H (75-99) mg/dL Calcium 7.6 L (8.4-10.2) mg/dL Alkaline Phosphatase 26 L (38-126) U/L Total Protein 4.4 L (6.3-8.2) g/dL Albumin 2.5 L (3.5-5.0) g/dL Procalcitonin (0.02-0.09) ng/mL 09/18/21 Range/Units 11:33 RBC (4.30-5.90) m/uL Hgb (13.0-17.5) gm/dL Hct (39.0-53.0) % RDW (11.5-15.5) % Plt Count (150-450) k/uL Lymphocytes # (Manual) (1.0-4.8) k/uL Chloride (98-107) mmol/L Glucose (74-99) mg/dL POC Glucose (mg/dL) 182 H (75-99) mg/dL Calcium (8.4-10.2) mg/dL Alkaline Phosphatase (38-126) U/L Total Protein (6.3-8.2) g/dL Albumin (3.5-5.0) g/dL Procalcitonin (0.02-0.09) ng/mL
--- NOTE | 2021-09-18 14:32 | PN ---
PROGRESS NOTE Mr. Berkowitz is sinus rhythm but sinus tachycardia. He received 3 L of fluid yesterday, but he seems to be still having sinus tachycardia. I will increase the beta ted, cautiously hydrate him, and check thyroid function levels. Vitals are stable. JVD 1 cm. No carotid bruit. S1-S2 heard normally. Short systolic murmur is audible. Tachycardia noted. Lungs reveal improved air entry. Abdomen and lower extremity exam unchanged. Prognosis remains guarded. Will increase beta ted, cautiously hydrate him, check thyroid function tests. MMODL / IJN: [id number] /
[2021-09-18] MEDS: NYSTATIN 100,000 UNIT/ML SUSP 500,000 UNIT/5 ML CUP PO SCH ×3 (14:43→20:31)
[2021-09-18] MEDS: METOPROLOL TARTRATE 50 MG TAB PO SCH ×2 (16:50→20:31)
[2021-09-18 17:36] LABS: Glucose,Whole Blood 170 mg/dL (75-99)
[2021-09-18] MEDS: VANCOMYCIN ORAL SOLUTION 250 MG/5 ML BOTTLE PO SCH (18:41)
[2021-09-18 20:24] LABS: Glucose,Whole Blood 136 mg/dL (75-99)
[2021-09-19] MEDS: VANCOMYCIN ORAL SOLUTION 250 MG/5 ML BOTTLE PO SCH ×3 (00:09→12:47)
[2021-09-19 04:41] LABS: Anisocytosis Slight; Basophils % (A) 1 %; Eosinophils % (A) 0 %; Hypochromasia Slight; Lymphocytes # (A) 0.8 k/uL (1.0-4.8); Lymphocytes % (A) 19 %; MCH 30.6 pg (25.0-35.0); MCHC 31.7 g/dL (31.0-37.0); MCV 96.6 fL (80.0-100.0); Macrocytosis Slight; Mean Platelet Volume 7.9; Monocytes # (A) 0.4 k/uL (0-1.0); Monocytes % (A) 9 %; Neutrophils # (A) 2.8 k/uL (1.3-7.7); Neutrophils % (A) 69 %; Platelet Count 153 k/uL (150-450); RBC 2.07 m/uL (4.30-5.90); RDW 18.1 % (11.5-15.5)
[2021-09-19 05:16] LABS: Potassium 3.4 mmol/L (3.5-5.1)
[2021-09-19 05:17] LABS: Calcium 7.8 mg/dL (8.4-10.2)
[2021-09-19 05:34] LABS: HGB 6.3 gm/dL (13.0-17.5)
[2021-09-19 06:46] LABS: Glucose,Whole Blood 148 mg/dL (75-99)
[2021-09-19] MEDS: INSULIN ASPART (NovoLOG) 100 UNIT/ML VIAL SQ SCH ×4 (06:50→21:12)
[2021-09-19] MEDS: POTASSIUM CHLORIDE 10 MEQ in WATER FOR INJECTION 1 100ML.BAG IVPB SCH ×3 (06:50→12:53)
--- NOTE | 2021-09-19 07:15 | P.PN ---
Subjective Progress Note Date: 09/18/21 Principal diagnosis: Fever/sepsis Patient is a 76-year-old male with multiple comorbidities was brought into the hospital after pending the patient did fell out of the bed and was found on the bedroom floor patient subsequently noticed to have a fever and he did went into respiratory distress requiring intubation. On today's evaluation that is 09/18/2021, the patient is afebrile , the patient his breathing comfortably on nasal cannula oxygen, the patient denies any chest pain , the patient did have mild dry cough no abdominal pain however has developed diarrhea, with no blood or mucus in the stool Objective - Vital Signs Vital signs: Vital Signs Temp 97.1 F L 09/18/21 08:00 Pulse 123 H 09/18/21 12:00 Resp 5 L 09/18/21 12:00 BP 143/87 09/18/21 12:00 Pulse Ox 94 L 09/18/21 09:00 FiO2 40 09/16/21 09:00 Intake & Output 09/17/21 09/18/21 09/18/21 18:59 06:59 18:59 Intake Total 2290 240 100 Output Total 390 180 145 Balance 1900 60 -45 Weight 118.2 kg 117.7 kg Intake: IV 2290 240 100 Cefepime 2 gm In Sodium 100 Chloride 0.9% 100 ml @ 25 mls/hr IVPB Q8H [facility] Rx#: [id number] Sodium Chloride 0.9% 1, 90 20 000 ml @ 20 mls/hr IV . Q24H [facility] Rx#:[id number] Sodium Chloride 0.9% 2, 2100 240 80 000 ml @ 999 mls/hr IV . Q2H1M [facility] Rx#:[id number] Output: Urine 390 180 145 Other: Voiding Method Indwelling Catheter Indwelling Catheter Indwelling Catheter ABP, PAP, CO, CI - Last Documented Arterial Blood Pressure 113/59 - Exam GENERAL DESCRIPTION: An elderly male lying in bed in no distress RESPIRATORY SYSTEM: Unlabored breathing , coarse breath sounds bilaterally HEART: S1 S2 regular rate and rhythm , ABDOMEN: Soft , no tenderness EXTREMITIES: No edema feet - Labs CBC & Chem 7: 09/19/21 03:53 09/19/21 03:53 Labs: Abnormal Lab Results - Last 24 Hours (Table) 09/17/21 09/17/21 09/18/21 Range/Units 17:48 20:54 03:55 RBC (4.30-5.90) m/uL Hgb (13.0-17.5) gm/dL Hct (39.0-53.0) % RDW (11.5-15.5) % Plt Count (150-450) k/uL Lymphocytes # (Manual) (1.0-4.8) k/uL Chloride (98-107) mmol/L Glucose (74-99) mg/dL POC Glucose (mg/dL) 129 H 166 H (75-99) mg/dL Calcium (8.4-10.2) mg/dL Alkaline Phosphatase (38-126) U/L Total Protein (6.3-8.2) g/dL Albumin (3.5-5.0) g/dL Procalcitonin 0.15 H (0.02-0.09) ng/mL 09/18/21 09/18/21 09/18/21 Range/Units 03:55 03:55 06:07 RBC 2.50 L (4.30-5.90) m/uL Hgb 7.6 L D (13.0-17.5) gm/dL Hct 23.9 L (39.0-53.0) % RDW 16.3 H (11.5-15.5) % Plt Count 144 L (150-450) k/uL Lymphocytes # (Manual) 0.63 L (1.0-4.8) k/uL Chloride 117 H (98-107) mmol/L Glucose 137 H (74-99) mg/dL POC Glucose (mg/dL) 154 H (75-99) mg/dL Calcium 7.6 L (8.4-10.2) mg/dL Alkaline Phosphatase 26 L (38-126) U/L Total Protein 4.4 L (6.3-8.2) g/dL Albumin 2.5 L (3.5-5.0) g/dL Procalcitonin (0.02-0.09) ng/mL 09/18/21 Range/Units 11:33 RBC (4.30-5.90) m/uL Hgb (13.0-17.5) gm/dL Hct (39.0-53.0) % RDW (11.5-15.5) % Plt Count (150-450) k/uL Lymphocytes # (Manual) (1.0-4.8) k/uL Chloride (98-107) mmol/L Glucose (74-99) mg/dL POC Glucose (mg/dL) 182 H (75-99) mg/dL Calcium (8.4-10.2) mg/dL Alkaline Phosphatase (38-126) U/L Total Protein (6.3-8.2) g/dL Albumin (3.5-5.0) g/dL Procalcitonin (0.02-0.09) ng/mL Assessment and Plan (1) Sepsis Current Visit: Yes Status: Acute Code(s): A41.9 - SEPSIS, UNSPECIFIED ORGANISM SNOMED Code(s): 66239126 Plan: 1patient presented to hospital with mental status changes and fever and this patient did have a fall patient did have initial work-up for the fever including a UA chest x-ray CT abdominal pelvis has been negative patient did have history of left knee septic arthritis however the knee do not have any significant swelling or redness with minimal warmth with concern for possible [employer] infection for which the patient did have LP completed , CSF did have some elevated protein and glucose was elevated however the white count was not significantly elevated 2patient CSF HSV DNA by PCR came back negative acyclovir was discontinued. West Nile IgM on CSF is pending 3left lower lobe atelectasis and a question of pneumonia, cefepime has been discontinued and currently being monitored closely off antibiotic. 4diarrhea with recent antibiotic exposure, will check a stool for C. diff and treat if positive Time with Patient: Less than 30
--- NOTE | 2021-09-19 09:02 | P.PN ---
Subjective Progress Note Date: 09/18/21 09/18/2021: Patient is stable. Per nurse report, he was slightly confused while ago. Now he is better oriented. Continues to be weak on the left side. No new concerns. 09/17/2021: Patient was seen for a follow-up. Patient denies headache. Spoke to the nurse, who states that patient had a few episodes of lethargy in which his blood pressure drops down to low range at around 66/42, and the pulse rate is high around 116. He arouses with sternal rub. Patient is in atrial fibrillation with rapid ventricular rate. Patient has been started on Eliquis today. Patient tells me that he has not walked for some time, as he cannot stand with his left leg. He claims right leg has been weak for some time. Does not know the cause. Apparently he has left knee replacement in the recent past, after which she had complications with septic arthritis. 09/16/2021: Patient was seen for a follow-up. Patient's to be intubated. Ready for extubation. Patient denies any headache. Patient is following commands very well. Please refer to examination below. 09/14/2021: Patient was seen by Dr. Trevor Louis. Please refer to his note for details. I'm seeing this patient for the first time. Patient is a 76-year-old male with altered mental status. Patient had a CSF checked, and WBCs were 3. Proteins were elevated. Unknown source of fever/sepsis. EEG showed moderate to severe encephalopathy. Patient currently on propofol 75 g per program per minute. Patient also on acyclovir. Per nursing report, when the sedation holiday was performed, he squeeze the hands once, open the eyes once, but not consistently. He was not waking up. Patient became tachypneic therefore started back on sedation. Patient's blood tests from today shows a BBC 3.8 with no shift. Hemoglobin 11.7, platelet 123. Electrolytes, renal functions are normal. Vancomycin trough level 20.8. Hemoglobin A1c 6.0 on 07/29/2021. B12 710 on 09/20/2020. Methylmalonic acid normal 0.13. Folate 6.1. Started folate replacement. CT head was performed and it is reported as cerebral atrophy but there is noticeable more atrophy in the frontal lobes. No acute intracranial abnormality. Limited exam. No change compared to exam earlier today. I also personally reviewed the CT of the head and it was difficult to assess the CT because of motion artifact. Regarding the bilateral frontal atrophy more than a global atrophy was hard to assess again for because of limitation. CT angiography of the head is reported as negative. While CT angiography of the neck was reported as shows stenosis above the origin of both internal carotid arteries and in the body report is reported that the patient has 75% stenosis in the left ICA and 30% stenosis in the right ICA. CSF: clear, colorless, 3 rbc, 3 total nucleated cells, glucose 116, total protein 116. CSF gram stain is no organism. Blood culture is no organism seen in 24 hours. Objective - Vital Signs Vital signs: Vital Signs Temp 97.4 F L 09/18/21 14:00 Pulse 87 09/18/21 15:00 Resp 14 09/18/21 15:00 BP 134/77 09/18/21 15:00 Pulse Ox 94 L 09/18/21 14:00 FiO2 40 09/16/21 09:00 Intake & Output 09/17/21 09/18/21 09/18/21 18:59 06:59 18:59 Intake Total 2290 240 100 Output Total 390 180 145 Balance 1900 60 -45 Weight 118.2 kg 117.7 kg Intake: IV 2290 240 100 Cefepime 2 gm In Sodium 100 Chloride 0.9% 100 ml @ 25 mls/hr IVPB Q8H [facility] Rx#: [id number] Sodium Chloride 0.9% 1, 90 20 000 ml @ 20 mls/hr IV . Q24H [facility] Rx#:[id number] Sodium Chloride 0.9% 2, 2100 240 80 000 ml @ 999 mls/hr IV . Q2H1M [facility] Rx#:[id number] Output: Urine 390 180 145 Other: Voiding Method Indwelling Catheter Indwelling Catheter Indwelling Catheter ABP, PAP, CO, CI - Last Documented Arterial Blood Pressure 113/59 - Exam Patient is slightly groggy, more alert than yesterday, answers appropriately. He appears somewhat tired. Patient's speech is slightly slurred, but no aphasia or dysarthria. Patient states is the month of September and the year is 2021. He knows that he is in [place] in [place]. Cranial nerves are significant for pupils equal round and reacting. Visual adames are full. Extraocular muscles are intact. Face is symmetric. Tongue protrudes the midline. Hearing is slightly decreased. Muscle strength testing revealed left pronator drift. Muscle strength (ri ght/left) deltoid 5/5-, biceps 5/4, triceps 5-4+/5-4+, mobile practice lead 4/4-. Ankle dorsiflexion 4-/5. Sensory touch is equal with no neglect in the upper extremities. In the lower extremities patient neglects the right lower extremity with double simultaneous stimulation. Patient did not cooperate for cerebellar function testing. - Labs CBC & Chem 7: 09/19/21 03:53 09/19/21 03:53 Labs: Abnormal Lab Results - Last 24 Hours (Table) 09/17/21 09/17/21 09/18/21 Range/Units 17:48 20:54 03:55 RBC (4.30-5.90) m/uL Hgb (13.0-17.5) gm/dL Hct (39.0-53.0) % RDW (11.5-15.5) % Plt Count (150-450) k/uL Lymphocytes # (Manual) (1.0-4.8) k/uL Chloride (98-107) mmol/L Glucose (74-99) mg/dL POC Glucose (mg/dL) 129 H 166 H (75-99) mg/dL Calcium (8.4-10.2) mg/dL Alkaline Phosphatase (38-126) U/L Total Protein (6.3-8.2) g/dL Albumin (3.5-5.0) g/dL Procalcitonin 0.15 H (0.02-0.09) ng/mL 09/18/21 09/18/21 09/18/21 Range/Units 03:55 03:55 06:07 RBC 2.50 L (4.30-5.90) m/uL Hgb 7.6 L D (13.0-17.5) gm/dL Hct 23.9 L (39.0-53.0) % RDW 16.3 H (11.5-15.5) % Plt Count 144 L (150-450) k/uL Lymphocytes # (Manual) 0.63 L (1.0-4.8) k/uL Chloride 117 H (98-107) mmol/L Glucose 137 H (74-99) mg/dL POC Glucose (mg/dL) 154 H (75-99) mg/dL Calcium 7.6 L (8.4-10.2) mg/dL Alkaline Phosphatase 26 L (38-126) U/L Total Protein 4.4 L (6.3-8.2) g/dL Albumin 2.5 L (3.5-5.0) g/dL Procalcitonin (0.02-0.09) ng/mL 09/18/21 Range/Units 11:33 RBC (4.30-5.90) m/uL Hgb (13.0-17.5) gm/dL Hct (39.0-53.0) % RDW (11.5-15.5) % Plt Count (150-450) k/uL Lymphocytes # (Manual) (1.0-4.8) k/uL Chloride (98-107) mmol/L Glucose (74-99) mg/dL POC Glucose (mg/dL) 182 H (75-99) mg/dL Calcium (8.4-10.2) mg/dL Alkaline Phosphatase (38-126) U/L Total Protein (6.3-8.2) g/dL Albumin (3.5-5.0) g/dL Procalcitonin (0.02-0.09) ng/mL Assessment and Plan Assessment: * Acute/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 * Altered mental status, likely due to metabolic encephalopathy, much improved. * Atrial fibrillation, continue Eliquis * Status post ventilator dependent respiratory failure, extubated. * Elevated troponin. * History of septic arthritis of the left knee * History of ischemic cardiomyopathy, * gastric outlet obstruction status post the EGD * Diabetes * Obesity Plan: MRI of brain revealed suboptimal study due to patient motion. Evolving acute/subacute infarct right parietal lobe posterior watershed region is likely present. Extension into the posterior superior temporal lobe and superior cerebellar hemisphere cannot be excluded. I personally reviewed MRI and agree with the findings Patient has atrial fibrillation. Continue Eliquis 5 mg twice a day and aspirin 81 mg daily. Cardiology on board. EEG was abnormal. Background slowing is suggestive of moderate to severe encephalopathy likely due to medication effect. No focal slowing, epileptiform discharges or seizure on the EEG. Carotid duplex revealed no hemodynamic significant stenosis of the proximal ICAs. Antegrade flow in both vertebral arteries. 2-D echo 09/12/2021 revealed normal left ventricular dimension. EF is 50-55%. Moderate concentric LVH. Left atrial size normal. Continue Lipitor 80 mg. lipid panel showed cholesterol 131, LDL 59, HDL 30 and triglycerides 541. Hemoglobin A1c 6.0. B12 710 on 09/20/2020. Methylmalonic acid normal 0.13. Folate 6.1. Started folate replacement. Infection disease team is on board. Will defer rest of medical management to primary team. PT OT, speech therapy. Consider rehab consult.
[2021-09-19] MEDS: METOPROLOL TARTRATE 50 MG TAB PO SCH ×3 (09:20→21:12)
[2021-09-19] MEDS: ATORVASTATIN 80 MG TAB PO SCH (09:21)
[2021-09-19] MEDS: ASPIRIN 81 MG PO SCH (09:21)
[2021-09-19] MEDS: FOLIC ACID 1 MG TAB PO SCH (09:21)
[2021-09-19] MEDS: APIXABAN 5 MG TAB PO SCH ×2 (09:31→21:11)
[2021-09-19] MEDS: NYSTATIN 100,000 UNIT/ML SUSP 500,000 UNIT/5 ML CUP PO SCH ×4 (10:22→21:11)
[2021-09-19 10:28] VITALS: BMI 34.9
--- NOTE | 2021-09-19 11:38 | P.PN ---
Subjective Progress Note Date: 09/19/21 Principal diagnosis: Respiratory failure. 09/13/2021, I'm seeing the patient in intensive care unit. He remains intubated on mechanical ventilator. This morning, he remains off of a fall which is running at 75 mcg/kg per minute and the patient is on a low-dose fentanyl treated adequately sedated for now. No seizure activity has been noted. He is deeply sedated and a sedation holiday is to be performed today. No new cultures are available. Due to concerns of HSV encephalitis, I started the patient yesterday on IV acyclovir pending HSV by PCR in the CSF. This has not resulted yet. The patient In terms of his respiratory status, the patient is on a mechanical ventilator. The patient this morning is on a mechanical ventilator assist control mode at the rate of 22, tidal volume is at 400 with a pack of 40 and a PEEP of 5. Chest x-ray shows some left basilar atelectatic changes. Triple-lumen catheter in the left IJ is in a good location. No evidence of any pneumothorax. OG tube is also in good location. The blood gases from today shows a pH of 7.34 with a pCO2 of 34 and pO2 of 145 and this was on FiO2 of 40%. Peak airway pressure is at 18. No significant orotracheal secretions. Hemodynamically, the patient is stable on no pressors. The patient is afebrile. Affect patient became somewhat hypothermic and earlier this morning his temperature dropped down to 95.7. He does have some external warmers applied. As such, he hasn't developed any fever since yesterday. He is covered with a combination of IV acyclovir, IV cefepime and IV vancomycin. Orthopedic surgery evaluated the left knee and as expected, there is no evidence of any septic art hritis involving the left knee. The patient had negative blood cultures. The white cell count is at 3.5 with a hemoglobin of 12 and a platelet count of 114. The rest of the blood work shows a sodium of 133, potassium is at 3.3 and he is to be replaced and the BUN of 18 with a creatinine of 1.1. Blood sugar is at 154. Calcium is at 7. Magnesium is to be replaced at 1.5. The patient's CPK level from yesterday was 1846 and a troponin peaked at 16. Urine drug screen was negative. Echocardiogram was also completed and the patient was found to have a preserved LV function. No significant valvular abnormalities. The patient had a technically difficult echo due to poor windows. Artery function with estimated to be normally at around 55%. EEG of the brain was also done yesterday that showed encephalopathy as the patient was on propofol high-dose. There was moderate to severe encephalopathy medication induced related to propofol and fentanyl. No active seizures noted. Cardiac rhythm is sinus for now. The patient is on Lovenox for cardiology therapeutic doses of 100 mg subcu every 12 hours. He is on minimal amount of pressors with levo at 0.06 mcg/kg per minute and this can be easily weaned off. No other significant events otherwise since yesterday. 09/14/2021, the patient is being seen for a follow-up. The patient remains intubated on a mechanical ventilator. He was given a breathing sedation holiday which essentially failed as the patient's respiration became quite high and the patient was becoming asynchronous with a mechanical ventilator and he did not show any adequate neurologic recovery and he was not following any commands. As such, the sedation holiday was important and the family done today. Meanwhile, the patient remains on a mechanical ventilator. This morning, he is sedated with propofol at the rate of 75 mcg/kg per minute. The patient is currently off fentanyl. He is adequately sedated for now. He remains on an assist-control mode of mechanical ventilation. Tidal volumes of 400 with a rate of 22 and FiO2 of 40% with a PEEP of 5. He is afebrile and hemodynamically is requiring low doses of pressors and the patient is currently on norepinephrine at 0.06 mcg/kg per minute. Adequate urine output. Adequate blood pressure for now. Cultures have been all negative. Awaiting HSV by PCR in the CSF and meanwhile the patient was kept on IV acyclovir. The white cell count is low at 3.8. The cultures been negative. No clear indication for an underlying septic source. The patient was covered with a combination of septic cefepime and vancomycin. The chest x-ray from today shows a left lower lobe atelectasis. No clear-cut airspace disease or consolidation. Blood gases from today shows the patient 7.34 with a pCO2 of 37 and pO2 of 79. BUN is at 40 with a creatinine of 0.9 and his sodium level is at 139. Vancomycin trough was 20.8. The patient is receiving enteral feeding for nutritional support. The patient is currently on vital high protein at the rate of 16 mL an hour which is at goal. His cardiac rhythm is sinus for now. The patient remains on Lovenox per cardiology therapeutic doses. Echocardiogram showed normal LV dysfunction and the patient has a preserved LV without any valvular disease. The patient had an acute non- STEMI. Troponin peaked at 15. 09/15/2021, the patient is being seen for a follow-up. This morning, the patient is heavily sedated with propofol running at 75 mg/kg per minute. He was given a sedation holiday during which she open up his eyes and he was thrashing and he was not following any commands and doing any purposeful activity. Based on that, the sedation holiday was discontinued and the patient was taken for another CAT scan of the chest and this was a noncontrast CAT scan which showed no acute abnormalities. As such, the patient was placed on sedation and another sedation holiday will be done today. His CAT scan of the brain showed cerebral atrophy. No acute abnormalities have been noted. No seizure activity. On today's evaluation, the patient remains on assist control mode of mechanical ventilation at the rate of 22, tidal volume of 400 and FiO2 of 40% and PEEP of 5. Chest x-ray remains unchanged with some atelectatic changes and left lung base. No significant orotracheal secretions the patient's blood gases showed a pH of 7.36 with a pCO2 of 37 and pO2 of 84. The patient is afebrile and the patient has a white count of 3.2 with a hemoglobin of 11.3 and a platelet count is at 116. Renal function is stable with a creatinine of 0.8. Sodium is at 138, serum bicarb is at 20 which is improved compared to yesterday. Meanwhile, the patient is hemodynamically stable. He is on no pressors. He is on a combination of antibiotics although we have not cultures any positive microbial growth. The patient has HSV by PCR pending in the CSF. Enteral feeding for nutritional support and the patient is currently receiving vital high protein at the rate of 16 mL an hour. The patient had an echocardiogram that showed preserved LV function. His post acute non-STEMI. Cardiology is on the case. No further intervention is recommended's point, especially the patient's cardiac rhythm is sinus and echocardiogram has not revealed any acute abnormalities. As such, the exact cause for his underlying altered mental status remains not clear and stable on that investigation. CSF protein was mildly elevated. Genital cultures revealed Bibiana albicans. Progress note dated August 2021. The patient is seen and evaluated, today in room 264. The patient was admitted back on September 11, for mental status changes, non-ST segment elevation myocardial infarction, and atrial fibrillation with rapid ventricular response. The patient was intubated following day, 09/12/2021. Mechanical ventilator. He is currently on volume assist control, rate 22, tidal volume 400, FiO2 40%, and PEEP of 5. Blood gases show a PaO2 of 96, pCO2 34, and a pH is 7.4. The blood gases consistent with a combined respiratory alkalosis and mild metabolic acidosis. The patient's getting saline at 20 mL an hour, dexmedetomidine at 0.2 mcg/kg/h, and norepinephrine at 2 mcg/m. Today, we will do a daily interruption of sedation, spontaneous breathing trial. White count 3.3, hemoglobin 10.8, hematocrit 34.3, and platelet count 111,000. Sodium 140, potassium 3.6, chlori vinod 117, CO2 21. BUN and creatinine are normal. Microbiology is currently negative, save for a positive Bibiana culture on the patient's penis. Chest x- ray shows either left lower lobe infiltrate and/or atelectasis. Progress note dated 09/17/2021. The patient is seen and evaluated, in room 264. The patient was admitted back on September 11, for mental status changes, non-ST segment elevation myocardial infarction, and atrial fibrillation with rapid ventricular response. The patient was intubated for respiratory failure following day, on September 12, and was extubated yesterday, September 16. The patient is on 2 L nasal cannula. The patient is getting saline at 20 mL an hour. Because of the lower blood pressure, the patient will get a fluid bolus. Clinically, the patient's doing much better. Laboratory data shows a white count 3.9, hemoglobin 9.9, hematocrit 30.9, and platelet count of 115,000. Blood gases today show a pO2 of 93, pCO2 33, and a pH is 7.42. That's on 2 L. In addition, sodium 139, potassium 3.3, chlorides 1:15, CO2 22, BUN 12, and creatinine 0.88. Chest x-ray in my opinion just shows some atelectasis. Progress note dated 09/18/2021. The patient is again seen and evaluated, in room 264. The patient remains on 0.9 at 10 mL an hour, room air. Labs today include a white count of 4.2, hemoglobin 7.6, hematocrit 23.9, platelet count 144,000. Sodium 140, potassium 3.8, chlorides 117, CO2 22, BUN 17, creatinine 1.10. The patient feels well. The patient's blood pressures continued be somewhat labile. In my opinion, the patient could be transferred out to the 3 S. unit where he can be monitored. The patient denies any chest pain, chest pressure, palpitations, shortness of breath, cough, wheezing, phlegm production, nausea, vomiting, diarrhea, abdominal pain, or any genitourinary complaints. Progress note dated 09/19/2021. The patient is again seen and evaluated, and examined, in room 264. The patient is currently on room air. He is getting saline at 75 mL an hour. He is eating. I told the nurse, that the IV can be turned down a bit. The patient feels well. His blood pressures better control. White count is 4, hemoglobin 6.3, hematocrit 20, and platelet count 253,000. Sodium 141, potassium 3.4, chlorides 118, CO2 23, within normal BUN and creatinine. Microbiologic studies are thus far negative. Brain MRI shows mild to moderate diffuse cerebral atrophy and chronic small vessel ischemic changes, with an evolving acute/subacute infarct in the right parietal lobe. Objective - Vital Signs Vital signs: Vital Signs Temp 98.7 F 09/19/21 09:58 Pulse 101 H 09/19/21 10:00 Resp 18 09/19/21 09:58 BP 155/90 09/19/21 10:00 Pulse Ox 96 09/19/21 10:00 FiO2 40 09/16/21 09:00 Intake & Output 09/18/21 09/19/21 09/19/21 18:59 06:59 18:59 Intake Total 400 1125 0 Output Total 245 320 Balance 155 805 0 Weight 116.981 kg 116.981 kg Intake: IV 400 1125 Sodium Chloride 0.9% 1, 320 1125 000 ml @ 75 mls/hr IV . [id number] [facility] Rx#:[id number] Sodium Chloride 0.9% 2, 80 000 ml @ 999 mls/hr IV . Q2H1M [facility] Rx#:[id number] Blood Product 0 Rc As-1 Unit 0 [id number] Output: Urine 245 320 Other: Voiding Method Indwelling Catheter Indwelling Catheter # Bowel Movements 1 ABP, PAP, CO, CI - Last Documented Arterial Blood Pressure 113/59 - Exam No acute distress, on room air, with saturations of 96% HEENT examination is grossly unremarkable. Neck supple. Full range of motion. No adenopathy thyromegaly or neck vein distention. Cardiovascular examination reveals regular rhythm rate. S1-S2 normal. No S3 or S4. No discernible murmur noted. Heart sounds are distant. Heart rate 101 bpm. Lungs reveal scattered bilateral rhonchi. No wheezes. No crackles. Saturations are 96% on room air. Abdomen soft bowel sounds are heard. No masses or tenderness. Extremities are intact. No cyanosis clubbing or edema. Skin is without rash or lesion. Neurologic examination reveals a patient who is much more alert today. He does move all 4 extremities. Speech is adequate. No facial asymmetry. - Labs CBC & Chem 7: 09/19/21 03:53 09/19/21 03:53 Labs: Abnormal Lab Results - Last 24 Hours (Table) 09/18/21 09/18/21 09/18/21 Range/Units 11:33 17:35 20:23 RBC (4.30-5.90) m/uL Hgb (13.0-17.5) gm/dL Hct (39.0-53.0) % RDW (11.5-15.5) % Lymphocytes # (1.0-4.8) k/uL Potassium (3.5-5.1) mmol/L Chloride (98-107) mmol/L Glucose (74-99) mg/dL POC Glucose (mg/dL) 182 H 170 H 136 H (75-99) mg/dL Calcium (8.4-10.2) mg/dL Crossmatch 09/19/21 09/19/21 09/19/21 Range/Units 03:53 03:53 06:02 RBC 2.07 L (4.30-5.90) m/uL Hgb 6.3 L* (13.0-17.5) gm/dL Hct 20.0 L (39.0-53.0) % RDW 18.1 H (11.5-15.5) % Lymphocytes # 0.8 L (1.0-4.8) k/uL Potassium 3.4 L (3.5-5.1) mmol/L Chloride 118 H (98-107) mmol/L Glucose 130 H (74-99) mg/dL POC Glucose (mg/dL) (75-99) mg/dL Calcium 7.8 L (8.4-10.2) mg/dL Crossmatch See Detail 09/19/21 Range/Units 06:45 RBC (4.30-5.90) m/uL Hgb (13.0-17.5) gm/dL Hct (39.0-53.0) % RDW (11.5-15.5) % Lymphocytes # (1.0-4.8) k/uL Potassium (3.5-5.1) mmol/L Chloride (98-107) mmol/L Glucose (74-99) mg/dL POC Glucose (mg/dL) 148 H (75-99) mg/dL Calcium (8.4-10.2) mg/dL Crossmatch Assessment and Plan Assessment: Acute respiratory failure, with mental status changes, requiring intubation and mechanical ventilation on 09/12/2001, and successful extubation on 09/16/2021. Atrial fibrillation with rapid ventricular response, controlled. 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 Non-ST segment elevation myocardial infarction. Coronary artery disease, with previous stenting, July 2020. History of hypertension. History of diabetes mellitus. Diabetic peripheral neuropathy. Hyperlipidemia. History of prostate cancer. Peripheral vascular occlusive disease. Osteoarthritis. History of chronic back pain. Plan: Plan dated 09/16/2021. The patient has been thoroughly evaluated for possible infection. Thus far, no infection is suspected. The patient will have a daily interruption of sedation, and a spontaneous breathing trial. The patient may be ready for a trial of extubation. The patient continues on dexmedetomidine, and a small amount of norepinephrine. The patient will continue with DVT and GI prophylaxis. Labs, x-rays, medications are all reviewed. Additional recommendations and suggestions are forthcoming. Prognosis is guarded. We will continue to follow make recommendations where appropriate. Plan dated 09/17/2021. The patient's labs, x-rays, and medications are reviewed. The patient is evaluated, and examined, in room 264. The patient was extubated yesterday. His respiratory status seems to be stable. His chest x-ray is pretty good safer some basilar atelectasis. Blood gases are reviewed. The patient will get some fluids for his mild hypotension. We'll make sure that any medications which might drop his blood pressure, heart put on hold. We will continue to follow make recommendations where appropriate. Prognosis is guarded. Plan dated 09/18/2021. Labs, x-rays, and medications are reviewed. The patient appears to be doing better. The patient does have some variation in his blood pressure. He should go on to 3 S. unit, where he can be monitored more closely. Most recent blood pressures have been 110/48, 111/68, and 119/70. Continue to follow the patient and make recommendations where appropriate. Prognosis is guarded. Plan dated 09/19/2021. The patient's IV can be turned down to keep vein open. The patient's currently on room air. Labs, x-rays, and medications are reviewed. The patient has been examined. The report on the brain MRI is reviewed. The patient appears to have an acute/subacute right parietal lobe CVA. We will continue to follow make recommendations were appropriate. The patient can be transferred out of the intensive care unit. His vital signs are very stable. Time with Patient: Less than 30
[2021-09-19 12:02] LABS: Glucose,Whole Blood 171 mg/dL (75-99)
[2021-09-19] MEDS: SODIUM CHLORIDE 0.9% 1,000 ML IV SCH (12:12)
[2021-09-19] MEDS: PANTOPRAZOLE 40 MG/10 ML VIAL IVP SCH ×2 (12:52→12:57)
[2021-09-19] MEDS: POTASSIUM CHLORIDE ER 20 MEQ TAB.ER PO SCH ×2 (14:21→15:31)
[2021-09-19] MEDS: LOSARTAN 50 MG TAB PO SCH (15:00)
--- NOTE | 2021-09-19 15:32 | P.PN ---
Subjective Progress Note Date: 09/19/21 HISTORY OF PRESENT ILLNESS: This is a 75-year-old male patient of mine with previous medical history significant for coronary artery disease status post percutaneous coronary inter vention and stent placement last one was in 12/13/2019 in the mid RCA at that time he was found to have a totally occluded obtuse marginal one of the LCx, with collaterals from the PDA, hypertension and hypertensive cardiovascular disease, hyperlipidemia, diabetes mellitus type 2, diabetic polyneuropathy, 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 as well as radio frequency ablation, prostate cancer status post radiation therapy, MSSA septic arthritis left knee. Patient apparently had a fall out of bed and was found on the bedroom floor and patient was transferred to [facility] emergency [facility] for evaluation. Prior to the fall, patient has not been fee ling well for at least a few days and continued to worsen. He was reported to have a cough with weakness. Patient was taking [id number] cough medication without improvement. Initially temperature was 98.9, heart rate 99, blood pressure 145/109, pulse ox 93% on room air. Temperature max as morning is 102.8 with heart rate of 127. WBC 5.8, hemoglobin 14.1, platelet count 138. INR 1.1. Sodium 133, potassium 3.8, chloride 98, CO2 19, BUN 16 creatinine 0.88. Blood sugar 207. Lactic acid 7.3 and repeat 3.9. Calcium 9.2. Total bilirubin 1.4, AST 50, ALT 56, alkaline phosphatase 50. Troponin 0.013 followed by 2.370. Urinalysis was clear, blood moderate, RBC 6. Bacteria many. Serum alcohol level less than 10. Chronic virus PCR not detected. Influenza A not detected. Influenza B not detected. CAT scan of the brain revealed mild atrophy and chronic small vessel ischemia. No change compared to old exam. No acute intracranial abnormality. Chest x-ray, pelvis x-ray, cervical spine x-ray and abdominal and pelvic CAT scan have been completed but unable to open reports. Patient is seen today in the emergency center waiting for a bed on the cardiac stepdown unit. He has been started on heparin drip, cefepime and vancomycin and consults are in place with cardiology, infectious disease and neurology. Patient is status post diagnostic lumbar puncture completed by anesthesiology 09/12:patient went into acute respiratory failure and for airway protection he was intubated last night, and he is currently on before meals mode with a tidal volume of 450 FiO2 of 40% and PEEP of 5, his oxygen saturations. Gout, patient converted from atrial fibrillation to a normal sinus rhythm currently on amiodarone drip at 0.5 mg/m, he has been using the Levophed as well as propofol drip, for sedation, patient was also started on a cyclic severe per ICU for further coverage of possible viral meningitis, patient is to be maintained on vancomycin as well as cefepime as well, his urine output is good, he continues to be critical at this point in time. 09/13: Patient remains in the intensive care unit, currently elevated before meals mode 22 FiO2 40% and PEEP of 5 , patient continues to be sedated, had a sedation holiday today and now back on fentanyl and propofol, continues to be on IV antibiotic cefepime and vancomycin, HSV PCR pending, continues with Acyclovir 900 mg IV piggyback every 8 hours, monitor the patient very closely, prognosis continues to be guarded. 09/14: Patient was seen in intensive care unit today he continues to be on ventilator, vent setting limits before meals 22, FiO2 40% tidal volume of 400 PEEP of 5 patient tried a sedation holiday today but he continues to be very confused and barely responsive, his urine output has been adequate, he has been maintained on cefepime, vancomycin, acyclovir, continue with aggressive treatment plan, discussed with grip the need for the rest of the encephalitis panel was not sent and HSV PCR still pending at the time of dictation. 09/15: Patient was seen in the intensive care unit today, he continues to be on propofol drip, he was taken off fentanyl drip, sedation holiday was not very effective last night, he did have a good bowel movement, he continues to be on before meals mode 22 FiO2 40% and PEEP of 5 and tidal volume of 400, he has been getting cefepime, vancomycin, and acyclovir, PCR still pending, patient prognosis continues to be guarded. 09/16: Patient remains in intensive care unit. He was successfully extubated this morning by pulmonary medicine. Patient is somewhat slow/possible remnant of sedation but answers questions appropriately. Patient noted to have loose cough with sputum. Repeat chest x-ray reveals left lower lobe atelectasis versus pneumonia and possible associated effusion. Patient has been afebrile, heart rate 84, blood pressure 126/60, pulse ox 96% on 2 L nasal cannula. Repeat blood work reveals WBC 3.3, hemoglobin 10.8, platelet count 111. Sodium 140, potassium 3.6, chloride 117, CO2 21, BUN 14 creatinine 0.91. Blood sugar 143. Capillary blood glucose running between 120-143. 09/17: Patient remains in the intensive care unit. He is currently on oxygen at 2 L nasal cannula with pulse ox of 96%. Patient has been afebrile, blood pressure 140/65, heart rate 103. secured entrance monitor is sinus rhythm. Repeat blood work reveals WBC 3.9, hemoglobin 9.9, platelet count 115. Sodium 139, potassium 3.3, chloride 115, CO2 22, BUN 12 and creatinine 0.88. Capillary blood glucose running between 81 and 120. Patient failed swallow eval yesterday but is currently on pured diet with honey thick liquids. Repeat chest x-ray reveals suspect some improvement in aeration, difficult to exclude component of volume overload, interstitial edema. Patient remains cognitively slow, continues to have a cough with he states very little phlegm production. He is also complaining of the stomach hurting. Patient is also followed by neurology and MRI of the brain has been ordered. Patient has been resumed on eliquis by cardiology. 09/18: Patient remains in the intensive care unit. He has been cleared to transfer to cardiac stepdown unit per Dr. Louis. secured entrance monitor is atrial fibrillation with RVR and cardiology increased metoprolol. Patient has been a febrile, heart rate 125, blood pressure 143/87, pulse ox 94% on room air. Patient is to have more confusion today, talking rapidly but is more alert. Patient is eating a popsicle but complaining of abdominal pain with tenderness to the left lower quadrant and diarrhea. Stool to be sent for C. difficile toxin, and Dr. Strickland notified and patient started on oral vancomycin and await results of C. difficile testing. Otherwise, patient is not currently on antibiotics. Nystatin added for oral thrush. MRI of the brain revealed suboptimal study due to patient motion. Evolving acute/subacute infarct right parietal lobe posterior watershed region is likely present. Extension into the posterior super super superior temporal lobe and superior cerebellar hemisphere cannot be excluded. Background mild to moderate diffuse cerebral atrophy and chronic small vessel ischemic change. Worsening paranasal sinus disease. 09/19: Patient remains in the intensive care unit. C. difficile toxin came back negative and vancomycin oral be discontinued. Patient's mentation remains quite confused that he is more alert today and more verbal. He has weakness on the left side neurology is following as well as infectious disease and grip. Patient has been cleared to transfer out of the intensive care unit. Patient has been afebrile, heart rate 93, blood pressure 168/93, pulse ox 100% on room air. Code hemoglobin 6.3, platelet count 153. Sodium 141, potassium 3.4 and has been replaced, chloride 118, CO2 23, BUN 18 creatinine 1.05. Capillary blood glucose running between 136-171. Patient has been transfused 1 unit of packed RBCs. Blood cultures been finalized with no growth, sputum culture in progress. Genital culture Bibiana albicans. Group A strep throat culture negative. Comprehensive viral panel was negative. Patient is off antibiotics. Patient is having urinary retention and Shelley catheter will need to be replaced, Flomax started. Blood pressure is increasing and patient will be started on losartan 100 mg daily. Stool for occult blood to be obtained. Patient apparently had one episode of diarrhea this morning at shift change and none since that time and no blood was noted apparently. REVIEW OF SYSTEMS: Constitutional: No Documented fever, no chills, no night sweats, reports fatigue , positive for weight loss. HEENT: No headache. No blurred vision or double vision, no loss of vision. No loss of Hearing, no ringing in the ears, no dizziness. No nasal drainage or congestion. No epistaxis. No sore throat. Respiratory: No shortness of breath, reported cough, noted sputum production. No wheezing. Cardiovascular: No chest pain, no lower extremity edema. No palpitations. No paroxysmal nocturnal dyspnea. No orthopnea. No lightheadedness or dizziness. No syncopal episodes. Gastrointestinal: Reports abdominal pain. No nausea, vomiting. Reported diarrhea. No constipation. No bloody or tarry stools reports loss of appetite. Genitourinary: No dysuria, increased frequency, urgency. No urinary retention. Musculoskeletal: Positive for myalgias. positive for muscle weakness, Positive for gait dysfunction, no frequent falls, positive for low back pain . Integumentary: Sacral decubitus ulcer with pain, no lesions. No rash or pruritus. positive for bruising. No change in hair or nails. Neurologic: No aphasia. No facial droop. Mild change in mentation. Noted patient is slow to respond. No head injury. No headache. No paralysis. No paresthesia. Psychiatric: No depression. No anxiety. No mood swings. Endocrine: No abnormal blood sugars. No weight change. PHYSICAL EXAMINATION: General: This is 75-year-old male resting in the ICU bed and appears to be comfortable. No acute respiratory distress noted. HEENT: Head is atraumatic, normocephalic, oral mucous membranes slightly dry. Neck: Supple, no JVP, normal carotid upstroke bilaterally, no lymphadenopathy. Chest: Decreased breath sounds at the bases, few rhonchi, no expiratory wheezes, no chest wall tenderness, no intercostal retractions. Heart: First heart sound is normal, second heart sound is normal there is systolic ejection murmur 2/6 left sternal border. Abdomen: Soft, nontender, nondistended, positive bowel sounds, no hepatosplenomegaly. Shelley catheter draining [place] urine. Extremities: no calf tenderness DP + 1 bilaterally. Edema to the left knee and left lower extremity. Neurologic examination: patient is awake and alert, oriented to person, and able to follow simple commands, speech is fast and repetitive. Generalized weakness ASSESSMENT AND PLAN: 1. Acute Vent dependent respiratory failure due to sepsis with mental status changes, successfully extubated. Continue to monitor the patient in the intensive care unit, infectious disease, pulmonary/critical care, cardiology, and neurology are following. Patient has been cleared for transfer out of the intensive care unit. 2. Non-ST elevated myocardial infarction. continue with Metoprolol increased to 50 mg 3 times daily, Atorvastatin 80 mg daily and ASA 325 mg daily. 3. Metabolic encephalopathy related to evolving acute/subacute infarct. Patient is followed by neurology. Continue eliquis, aspirin, and atorvastatin. 4. History of MSSA left knee joint infection status post stage II revisio n,stable. 5. Severe lactic acidosis. Patient is status post 3 L of IV fluids, resolved. Blood gases reviewed . 6. paroxysmal atrial fibrillatiocardiology has resume patient on eliquis, continue metoprolol 50 mg 3 times a day. 7. Coronary artery disease status post Left heart catheterization with PCI of the RCA on 07/30/2020. Continue patient on aspirin 325 mg daily. continue with Atorvastatin 80 mg daily along with Metoprolol 50 mg 3 times daily 8. Hypertension and hypertensive cardiovascular disease. Off Levophed drip, we will continue with Metoprolol. 9. Hyperlipidemia. Continue Atorvastatin 80 mg daily 10. Diabetes mellitus type 2.hold off oral medication and start the patient on the sliding scale insulin. 11. History of prostate cancer status post radiation. Stable at this time. 12. 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 13. History of Urinary retention. Patient had Shelley catheter removed but is having urinary retention, Shelley to be replaced and patient started on Flomax or 0.4 mg daily. 14. Diarrhea and left lower quadrant tenderness. Stool negative for C. difficile and vancomycin discontinued. Dr. Strickland. 15. DVT prophylaxis. Eliquis. 16. GI prophylaxis. Protonix 40 mg IV push daily. 17. Patient is full code. 18. prognosis is very guarded. DISCHARGE PLAN Subacute rehab at [facility] Impression and plan of care have been directed as dictated by the signing physician. Padma Monsalve nurse practitioner acting as scribe for signing physician. Objective - Vital Signs Vital signs: Vital Signs Temp 98.1 F 09/19/21 12:54 Pulse 93 09/19/21 12:54 Resp 20 09/19/21 12:54 BP 168/93 09/19/21 12:54 Pulse Ox 100 09/19/21 11:00 FiO2 40 09/16/21 09:00 Intake & Output 09/18/21 09/19/21 09/19/21 18:59 06:59 18:59 Intake Total 400 1125 310 Output Total 245 320 Balance 155 805 310 Weight 116.981 kg 116.981 kg Intake: IV 400 1125 Sodium Chloride 0.9% 1, 320 1125 000 ml @ 75 mls/hr IV . [id number] [facility] Rx#:[id number] Sodium Chloride 0.9% 2, 80 000 ml @ 999 mls/hr IV . Q2H1M [facility] Rx#:[id number] Blood Product 310 Rc As-1 Unit 310 [id number] Output: Urine 245 320 Other: Voiding Method Indwelling Catheter Indwelling Catheter # Bowel Movements 1 ABP, PAP, CO, CI - Last Documented Arterial Blood Pressure 113/59 - Labs CBC & Chem 7: 09/19/21 03:53 09/19/21 03:53 Labs: Abnormal Lab Results - Last 24 Hours (Table) 09/18/21 09/18/21 09/19/21 Range/Units 17:35 20:23 03:53 RBC 2.07 L (4.30-5.90) m/uL Hgb 6.3 L* (13.0-17.5) gm/dL Hct 20.0 L (39.0-53.0) % RDW 18.1 H (11.5-15.5) % Lymphocytes # 0.8 L (1.0-4.8) k/uL Potassium (3.5-5.1) mmol/L Chloride (98-107) mmol/L Glucose (74-99) mg/dL POC Glucose (mg/dL) 170 H 136 H (75-99) mg/dL Calcium (8.4-10.2) mg/dL Crossmatch 09/19/21 09/19/21 09/19/21 Range/Units 03:53 06:02 06:45 RBC (4.30-5.90) m/uL Hgb (13.0-17.5) gm/dL Hct (39.0-53.0) % RDW (11.5-15.5) % Lymphocytes # (1.0-4.8) k/uL Potassium 3.4 L (3.5-5.1) mmol/L Chloride 118 H (98-107) mmol/L Glucose 130 H (74-99) mg/dL POC Glucose (mg/dL) 148 H (75-99) mg/dL Calcium 7.8 L (8.4-10.2) mg/dL Crossmatch See Detail 09/19/21 Range/Units 12:00 RBC (4.30-5.90) m/uL Hgb (13.0-17.5) gm/dL Hct (39.0-53.0) % RDW (11.5-15.5) % Lymphocytes # (1.0-4.8) k/uL Potassium (3.5-5.1) mmol/L Chloride (98-107) mmol/L Glucose (74-99) mg/dL POC Glucose (mg/dL) 171 H (75-99) mg/dL Calcium (8.4-10.2) mg/dL Crossmatch
[2021-09-19 16:30] LABS: Anisocytosis Slight; Basophils % (A) 1 %; Eosinophils % (A) 0 %; HCT 26.5 % (39.0-53.0); HGB 8.6 gm/dL (13.0-17.5); Lymphocytes % (A) 17 %; MCH 31.1 pg (25.0-35.0); MCHC 32.4 g/dL (31.0-37.0); MCV 95.8 fL (80.0-100.0); Macrocytosis Slight; Mean Platelet Volume 8.8; Monocytes # (A) 0.7 k/uL (0-1.0); Monocytes % (A) 12 %; Neutrophils % (A) 68 %; Platelet Count 164 k/uL (150-450); Poikilocytosis Slight; RBC 2.77 m/uL (4.30-5.90); RDW 17.5 % (11.5-15.5); WBC 5.9 k/uL (3.8-10.6)
--- NOTE | 2021-09-19 17:02 | PN ---
PROGRESS NOTE Mr. Berkowitz is in sinus rhythm with sinus tachycardia. His hemoglobin is 6.3. He is getting a unit of packed RBCs. Heart rate is about 115 to 120. However, with the blood transfusion hopefully the rate will be better. I am recommending that we continue current medications, including beta ted, and agree with blood transfusion. Vitals are stable. No JVD. S1-S2 heard normally. Short systolic murmur noted. Lungs reveal improved air entry. Abdomen and lower extremity exam unchanged. Prognosis remains guarded. Will continue current medications and give blood transfusion. MMODL / IJN: [id number] /
[2021-09-19 17:10] LABS: Glucose,Whole Blood 127 mg/dL (75-99)
[2021-09-19] MEDS: TAMSULOSIN 0.4 MG CAP.ER.24H PO SCH (17:41)
[2021-09-19] MEDS: CHLORHEXIDINE GLUCONATE 15 ML CUP MUCOUS MEM SCH (17:44)
[2021-09-19 20:07] LABS: Glucose,Whole Blood 144 mg/dL (75-99)
[2021-09-20 06:25] LABS: Glucose,Whole Blood 133 mg/dL (75-99)
[2021-09-20] MEDS: INSULIN ASPART (NovoLOG) 100 UNIT/ML VIAL SQ SCH ×4 (06:36→20:31)
[2021-09-20] MEDS: LOSARTAN 50 MG TAB PO SCH (10:20)
[2021-09-20] MEDS: FOLIC ACID 1 MG TAB PO SCH (10:23)
[2021-09-20] MEDS: METOPROLOL TARTRATE 50 MG TAB PO SCH ×2 (10:23→20:30)
[2021-09-20] MEDS: AMIODARONE 200 MG TAB PO SCH ×2 (10:23→20:30)
[2021-09-20] MEDS: NYSTATIN 100,000 UNIT/ML SUSP 500,000 UNIT/5 ML CUP PO SCH ×2 (10:23→12:43)
[2021-09-20] MEDS: ATORVASTATIN 80 MG TAB PO SCH (10:23)
[2021-09-20] MEDS: ASPIRIN 81 MG PO SCH (10:23)
[2021-09-20] MEDS: PANTOPRAZOLE 40 MG/10 ML VIAL IVP SCH (10:24)
--- NOTE | 2021-09-20 11:29 | P.PN ---
Subjective Progress Note Date: 09/20/21 HISTORY OF PRESENTING ILLNESS This is a 76-year-old gentleman was brought to the hospital with mental status changes and fall. Apparently patient was not feeling well for the last several days and was complaining of generalized weakness. He is currently intubated and most of the information is gathered from chart and human capital consultant notes and also from the nurses. Patient has history of septic arthritis coronary artery disease, hypertension, hypercholesterolemia with previous intervention of the right coronary artery. Patient was in atrial fibrillation on admission and was initially treated with IV Cardizem and subsequent change to IV amiodarone. His converted to sinus rhythm. Patient is currently sedated. Patient apparently not withdrawing with painful stimuli before the sedation. He is a troponin values went up suggestive of non-STEMI. EKG did not reveal any acute ST-T abnormalities. Echocardiogram is requested. Is being followed by neurology, infectious disease and also surgical team. Apparently patient also has carotid disease. From Cardec standpoint, patient is not a candidate for any intervention at this time. We will get an echo Cardec gram to assess LV function. Continue with IV amiodarone. Patient was treated with heparin but was discontinued because of high PTT. That needs to be resumed once feasible. Prognosis is guarded 09/13 Patient seen and examined. Initially was in A. fib however currently sinus rhythm. Noted to be elevated lactic acid and elevating troponins initially normal and then elevated up to 15. Currently remains intubated and sedated. Lactic acid has improved, creatinine stable at 1.1. He is having fevers up to 102. Pro-calcitonin mildly elevated 0.35. Requiring higher levels of propofol for sedation. Tube feeds at 16 and giving gentle IV fluids. Ventilator settings with FiO2 40% and a PEEP of 5. EKG shows no significant change from prior. Echo performed which shows somewhat poor quality however ejection fraction 50-55% without significant valvular disease. 09/14 Patient seen and examined. Patient attempted on weaning yesterday and failed. Remains on norepinephrine at 0.0. He remains in sinus rhythm and no significant atrial fibrillation. Creatinine stable today. Ventilator settings 40% FiO2 and 5 of PEEP. 09/15 Patient seen and examined. Patient remains on tube feeds at 16 mL per hour. Remains on ventilator with FiO2 40% and a PEEP of 5. Has been off and on norepinephrine however blood pressures relatively stable. 09/20/2021 Patient seen and examined this morning on 3S. Patient denies chest pain or press ure. He denies shortness of breath. Telemetry appears to be atrial flutter with 3-1 conduction with a heart rate around 120. PHYSICAL EXAMINATION Vital signs reviewed. CONSTITUTIONAL: No apparent distress HEENT: Head is normocephalic. Pupils are equal, round. Sclerae anicteric. Mucous membranes of the mouth are moist. No JVD. No carotid bruit. CHEST EXAMINATION: Lungs are clear to auscultation. No chest wall tenderness is noted on palpation or with deep breathing. HEART EXAMINATION: Tachycardic. Irregular rate and rhythm. S1, S2 heard. No murmurs, gallops or rub. ABDOMEN: Soft, nontender. Positive bowel sounds. EXTREMITIES: 2+ peripheral pulses, + bilateral lower extremity edema and no calf tenderness. ASSESSMENT 1. Acute on chronic respiratory failure, intubated mainly for AMS 2. Altered mental status 3. Paroxysmal atrial fibrillation initially RVR 4. Coronary artery disease with history of prior PCI 5. Non-STEMI troponin up to 15, unclear type I versus type II mechanism 6. Shock requiring vasopressors, suspected septic shock without obvious source 7. Lactic acidosis 8. Concern of possible carotid artery stenosis 9. Anemia, s/p RBC transfusion 10. Typical atrial flutter with RVR PLAN Continue current cardiac medications Continue Eliquis. Monitor hemoglobin as patient required RBC transfusion Begin amio 400mg BID Continue telemetry monitoring Further recommendations pending patient course Nurse practitioner note has been reviewed by physician. Signing provider agrees with the documented findings, assessment, and plan of care. Objective - Vital Signs Vital signs: Vital Signs Temp 98.0 F 09/20/21 03:03 Pulse 117 H 09/20/21 08:18 Resp 18 09/20/21 03:03 BP 162/80 09/20/21 08:18 Pulse Ox 96 09/20/21 08:18 FiO2 40 09/16/21 09:00 Intake & Output 09/19/21 09/20/21 09/20/21 18:59 06:59 18:59 Intake Total 370 240 Output Total 550 500 0 Balance -180 -500 240 Weight 116.981 kg Intake: IV 60 Sodium Chloride 0.9% 1, 60 000 ml @ 20 mls/hr IV . Q24H [facility] Rx#:[id number] Oral 240 Blood Product 310 Rc As-1 Unit 310 [id number] Output: Urine 450 500 0 Stool 0 Urine/Stool Mix 0 Oral Regurgitation 100 Other: Voiding Method Indwelling Catheter Indwelling Catheter # Voids 0 # Bowel Movements 1 0 ABP, PAP, CO, CI - Last Documented Arterial Blood Pressure 113/59 - Labs CBC & Chem 7: 09/19/21 15:46 09/19/21 03:53 Labs: Abnormal Lab Results - Last 24 Hours (Table) 09/19/21 09/19/21 09/19/21 Range/Units 06:02 12:00 15:46 RBC 2.77 L (4.30-5.90) m/uL Hgb 8.6 L D (13.0-17.5) gm/dL Hct 26.5 L (39.0-53.0) % RDW 17.5 H (11.5-15.5) % POC Glucose (mg/dL) 171 H (75-99) mg/dL Crossmatch See Detail 09/19/21 09/19/21 09/20/21 Range/Units 17:08 20:05 06:24 RBC (4.30-5.90) m/uL Hgb (13.0-17.5) gm/dL Hct (39.0-53.0) % RDW (11.5-15.5) % POC Glucose (mg/dL) 127 H 144 H 133 H (75-99) mg/dL Crossmatch
[2021-09-20 11:44] LABS: Glucose,Whole Blood 150 mg/dL (75-99)
--- NOTE | 2021-09-20 12:11 | P.PN ---
Subjective Progress Note Date: 09/20/21 Principal diagnosis: Respiratory failure. 09/13/2021, I'm seeing the patient in intensive care unit. He remains intubated on mechanical ventilator. This morning, he remains off of a fall which is running at 75 mcg/kg per minute and the patient is on a low-dose fentanyl treated adequately sedated for now. No seizure activity has been noted. He is deeply sedated and a sedation holiday is to be performed today. No new cultures are available. Due to concerns of HSV encephalitis, I started the patient yesterday on IV acyclovir pending HSV by PCR in the CSF. This has not resulted yet. The patient In terms of his respiratory status, the patient is on a mechanical ventilator. The patient this morning is on a mechanical ventilator assist control mode at the rate of 22, tidal volume is at 400 with a pack of 40 and a PEEP of 5. Chest x-ray shows some left basilar atelectatic changes. Triple-lumen catheter in the left IJ is in a good location. No evidence of any pneumothorax. OG tube is also in good location. The blood gases from today shows a pH of 7.34 with a pCO2 of 34 and pO2 of 145 and this was on FiO2 of 40%. Peak airway pressure is at 18. No significant orotracheal secretions. Hemodynamically, the patient is stable on no pressors. The patient is afebrile. Affect patient became somewhat hypothermic and earlier this morning his temperature dropped down to 95.7. He does have some external warmers applied. As such, he hasn't developed any fever since yesterday. He is covered with a combination of IV acyclovir, IV cefepime and IV vancomycin. Orthopedic surgery evaluated the left knee and as expected, there is no evidence of any septic art hritis involving the left knee. The patient had negative blood cultures. The white cell count is at 3.5 with a hemoglobin of 12 and a platelet count of 114. The rest of the blood work shows a sodium of 133, potassium is at 3.3 and he is to be replaced and the BUN of 18 with a creatinine of 1.1. Blood sugar is at 154. Calcium is at 7. Magnesium is to be replaced at 1.5. The patient's CPK level from yesterday was 1846 and a troponin peaked at 16. Urine drug screen was negative. Echocardiogram was also completed and the patient was found to have a preserved LV function. No significant valvular abnormalities. The patient had a technically difficult echo due to poor windows. Artery function with estimated to be normally at around 55%. EEG of the brain was also done yesterday that showed encephalopathy as the patient was on propofol high-dose. There was moderate to severe encephalopathy medication induced related to propofol and fentanyl. No active seizures noted. Cardiac rhythm is sinus for now. The patient is on Lovenox for cardiology therapeutic doses of 100 mg subcu every 12 hours. He is on minimal amount of pressors with levo at 0.06 mcg/kg per minute and this can be easily weaned off. No other significant events otherwise since yesterday. 09/14/2021, the patient is being seen for a follow-up. The patient remains intubated on a mechanical ventilator. He was given a breathing sedation holiday which essentially failed as the patient's respiration became quite high and the patient was becoming asynchronous with a mechanical ventilator and he did not show any adequate neurologic recovery and he was not following any commands. As such, the sedation holiday was important and the family done today. Meanwhile, the patient remains on a mechanical ventilator. This morning, he is sedated with propofol at the rate of 75 mcg/kg per minute. The patient is currently off fentanyl. He is adequately sedated for now. He remains on an assist-control mode of mechanical ventilation. Tidal volumes of 400 with a rate of 22 and FiO2 of 40% with a PEEP of 5. He is afebrile and hemodynamically is requiring low doses of pressors and the patient is currently on norepinephrine at 0.06 mcg/kg per minute. Adequate urine output. Adequate blood pressure for now. Cultures have been all negative. Awaiting HSV by PCR in the CSF and meanwhile the patient was kept on IV acyclovir. The white cell count is low at 3.8. The cultures been negative. No clear indication for an underlying septic source. The patient was covered with a combination of septic cefepime and vancomycin. The chest x-ray from today shows a left lower lobe atelectasis. No clear-cut airspace disease or consolidation. Blood gases from today shows the patient 7.34 with a pCO2 of 37 and pO2 of 79. BUN is at 40 with a creatinine of 0.9 and his sodium level is at 139. Vancomycin trough was 20.8. The patient is receiving enteral feeding for nutritional support. The patient is currently on vital high protein at the rate of 16 mL an hour which is at goal. His cardiac rhythm is sinus for now. The patient remains on Lovenox per cardiology therapeutic doses. Echocardiogram showed normal LV dysfunction and the patient has a preserved LV without any valvular disease. The patient had an acute non- STEMI. Troponin peaked at 15. 09/15/2021, the patient is being seen for a follow-up. This morning, the patient is heavily sedated with propofol running at 75 mg/kg per minute. He was given a sedation holiday during which she open up his eyes and he was thrashing and he was not following any commands and doing any purposeful activity. Based on that, the sedation holiday was discontinued and the patient was taken for another CAT scan of the chest and this was a noncontrast CAT scan which showed no acute abnormalities. As such, the patient was placed on sedation and another sedation holiday will be done today. His CAT scan of the brain showed cerebral atrophy. No acute abnormalities have been noted. No seizure activity. On today's evaluation, the patient remains on assist control mode of mechanical ventilation at the rate of 22, tidal volume of 400 and FiO2 of 40% and PEEP of 5. Chest x-ray remains unchanged with some atelectatic changes and left lung base. No significant orotracheal secretions the patient's blood gases showed a pH of 7.36 with a pCO2 of 37 and pO2 of 84. The patient is afebrile and the patient has a white count of 3.2 with a hemoglobin of 11.3 and a platelet count is at 116. Renal function is stable with a creatinine of 0.8. Sodium is at 138, serum bicarb is at 20 which is improved compared to yesterday. Meanwhile, the patient is hemodynamically stable. He is on no pressors. He is on a combination of antibiotics although we have not cultures any positive microbial growth. The patient has HSV by PCR pending in the CSF. Enteral feeding for nutritional support and the patient is currently receiving vital high protein at the rate of 16 mL an hour. The patient had an echocardiogram that showed preserved LV function. His post acute non-STEMI. Cardiology is on the case. No further intervention is recommended's point, especially the patient's cardiac rhythm is sinus and echocardiogram has not revealed any acute abnormalities. As such, the exact cause for his underlying altered mental status remains not clear and stable on that investigation. CSF protein was mildly elevated. Genital cultures revealed Bibiana albicans. Progress note dated August 2021. The patient is seen and evaluated, today in room 264. The patient was admitted back on September 11, for mental status changes, non-ST segment elevation myocardial infarction, and atrial fibrillation with rapid ventricular response. The patient was intubated following day, 09/12/2021. Mechanical ventilator. He is currently on volume assist control, rate 22, tidal volume 400, FiO2 40%, and PEEP of 5. Blood gases show a PaO2 of 96, pCO2 34, and a pH is 7.4. The blood gases consistent with a combined respiratory alkalosis and mild metabolic acidosis. The patient's getting saline at 20 mL an hour, dexmedetomidine at 0.2 mcg/kg/h, and norepinephrine at 2 mcg/m. Today, we will do a daily interruption of sedation, spontaneous breathing trial. White count 3.3, hemoglobin 10.8, hematocrit 34.3, and platelet count 111,000. Sodium 140, potassium 3.6, chlori vinod 117, CO2 21. BUN and creatinine are normal. Microbiology is currently negative, save for a positive Bibiana culture on the patient's penis. Chest x- ray shows either left lower lobe infiltrate and/or atelectasis. Progress note dated 09/17/2021. The patient is seen and evaluated, in room 264. The patient was admitted back on September 11, for mental status changes, non-ST segment elevation myocardial infarction, and atrial fibrillation with rapid ventricular response. The patient was intubated for respiratory failure following day, on September 12, and was extubated yesterday, September 16. The patient is on 2 L nasal cannula. The patient is getting saline at 20 mL an hour. Because of the lower blood pressure, the patient will get a fluid bolus. Clinically, the patient's doing much better. Laboratory data shows a white count 3.9, hemoglobin 9.9, hematocrit 30.9, and platelet count of 115,000. Blood gases today show a pO2 of 93, pCO2 33, and a pH is 7.42. That's on 2 L. In addition, sodium 139, potassium 3.3, chlorides 1:15, CO2 22, BUN 12, and creatinine 0.88. Chest x-ray in my opinion just shows some atelectasis. Progress note dated 09/18/2021. The patient is again seen and evaluated, in room 264. The patient remains on 0.9 at 10 mL an hour, room air. Labs today include a white count of 4.2, hemoglobin 7.6, hematocrit 23.9, platelet count 144,000. Sodium 140, potassium 3.8, chlorides 117, CO2 22, BUN 17, creatinine 1.10. The patient feels well. The patient's blood pressures continued be somewhat labile. In my opinion, the patient could be transferred out to the 3 S. unit where he can be monitored. The patient denies any chest pain, chest pressure, palpitations, shortness of breath, cough, wheezing, phlegm production, nausea, vomiting, diarrhea, abdominal pain, or any genitourinary complaints. Progress note dated 09/19/2021. The patient is again seen and evaluated, and examined, in room 264. The patient is currently on room air. He is getting saline at 75 mL an hour. He is eating. I told the nurse, that the IV can be turned down a bit. The patient feels well. His blood pressures better control. White count is 4, hemoglobin 6.3, hematocrit 20, and platelet count 253,000. Sodium 141, potassium 3.4, chlorides 118, CO2 23, within normal BUN and creatinine. Microbiologic studies are thus far negative. Brain MRI shows mild to moderate diffuse cerebral atrophy and chronic small vessel ischemic changes, with an evolving acute/subacute infarct in the right parietal lobe. Progress note dated 09/20/2021. The patient is seen and examined. Yesterday, he was in the intensive care unit. Today, he is in room 366. The patient's doing well. He is on room air. Is not requiring any IV fluids. Yesterday he was getting saline at 75 mL an hour. The patient is eating and drinking appropriately. No new labs today. The most recent laboratory data includes a glucose of 150. The patient's brain MRI did show mild to moderate diffuse cerebral atrophy, and chronic small vessel ischemic changes. In addition, it did show a evolving acute/subacute infarct in the right parietal lobe. Objective - Vital Signs Vital signs: Vital Signs Temp 97.9 F 09/20/21 11:38 Pulse 85 09/20/21 11:38 Resp 20 09/20/21 11:45 BP 106/45 09/20/21 11:38 Pulse Ox 96 09/20/21 11:38 FiO2 40 09/16/21 09:00 Intake & Output 09/19/21 09/20/21 09/20/21 18:59 06:59 18:59 Intake Total 370 240 Output Total 550 500 325 Balance -180 -500 -85 Weight 116.981 kg Intake: IV 60 Sodium Chloride 0.9% 1, 60 000 ml @ 20 mls/hr IV . Q24H [facility] Rx#:[id number] Oral 240 Blood Product 310 Rc As-1 Unit 310 [id number] Output: Urine 450 500 325 Stool 0 Urine/Stool Mix 0 Oral Regurgitation 100 Other: Voiding Method Indwelling Catheter Indwelling Catheter # Voids 0 # Bowel Movements 1 0 ABP, PAP, CO, CI - Last Documented Arterial Blood Pressure 113/59 - Exam No acute distress, on room air, with saturations of 95% HEENT examination is grossly unremarkable. Neck supple. Full range of motion. No adenopathy thyromegaly or neck vein distention. Cardiovascular examination reveals regular rhythm rate. S1-S2 normal. No S3 or S4. No discernible murmur noted. Heart sounds are distant. Heart rate 88 bpm. Lungs reveal scattered bilateral rhonchi. No wheezes. No crackles. Saturations are 95% on room air. Abdomen soft bowel sounds are heard. No masses or tenderness. Extremities are intact. No cyanosis clubbing or edema. Skin is without rash or lesion. Neurologic examination reveals a patient who is much more alert today. He does move all 4 extremities. Speech is adequate. No facial asymmetry. - Labs CBC & Chem 7: 09/19/21 15:46 09/19/21 03:53 Labs: Abnormal Lab Results - Last 24 Hours (Table) 09/19/21 09/19/21 09/19/21 Range/Units 06:02 15:46 17:08 RBC 2.77 L (4.30-5.90) m/uL Hgb 8.6 L D (13.0-17.5) gm/dL Hct 26.5 L (39.0-53.0) % RDW 17.5 H (11.5-15.5) % POC Glucose (mg/dL) 127 H (75-99) mg/dL Crossmatch See Detail 09/19/21 09/20/21 09/20/21 Range/Units 20:05 06:24 11:42 RBC (4.30-5.90) m/uL Hgb (13.0-17.5) gm/dL Hct (39.0-53.0) % RDW (11.5-15.5) % POC Glucose (mg/dL) 144 H 133 H 150 H (75-99) mg/dL Crossmatch Assessment and Plan Assessment: Acute respiratory failure, with mental status changes, requiring intubation and mechanical ventilation on 09/12/2001, and successful extubation on 09/16/2021. Atrial fibrillation with rapid ventricular response, controlled. 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 Non-ST segment elevation myocardial infarction. Coronary artery disease, with previous stenting, July 2020. History of hypertension. History of diabetes mellitus. Diabetic peripheral neuropathy. Hyperlipidemia. History of prostate cancer. Peripheral vascular occlusive disease. Osteoarthritis. History of chronic back pain. Plan: Plan dated 09/16/2021. The patient has been thoroughly evaluated for possible infection. Thus far, no infection is suspected. The patient will have a daily interruption of sedation, and a spontaneous breathing trial. The patient may be ready for a trial of extubation. The patient continues on dexmedetomidine, and a small amount of norepinephrine. The patient will continue with DVT and GI prophylaxis. Labs, x-rays, medications are all reviewed. Additional recommendations and suggestions are forthcoming. Prognosis is guarded. We will continue to follow make recommendations where appropriate. Plan dated 09/17/2021. The patient's labs, x-rays, and medications are reviewed. The patient is evaluated, and examined, in room 264. The patient was extubated yesterday. His respiratory status seems to be stable. His chest x-ray is pretty good safer some basilar atelectasis. Blood gases are reviewed. The patient will get some fluids for his mild hypotension. We'll make sure that any medications which might drop his blood pressure, heart put on hold. We will continue to follow make recommendations where appropriate. Prognosis is guarded. Plan dated 09/18/2021. Labs, x-rays, and medications are reviewed. The patient appears to be doing better. The patient does have some variation in his blood pressure. He should go on to 3 S. unit, where he can be monitored more closely. Most recent blood pressures have been 110/48, 111/68, and 119/70. Continue to follow the patient and make recommendations where appropriate. Prognosis is guarded. Plan dated 09/19/2021. The patient's IV can be turned down to keep vein open. The patient's currently on room air. Labs, x-rays, and medications are reviewed. The patient has been examined. The report on the brain MRI is reviewed. The patient appears to have an acute/subacute right parietal lobe CVA. We will continue to follow make recommendations were appropriate. The patient can be transferred out of the intensive care unit. His vital signs are very stable. Plan dated 09/20/2021. The patient's doing well. The patient has been transferred out to the general medical floor. Labs, x-rays, and medications are all reviewed. The patient's prognosis remains guarded. The results of the MRI have been reviewed. We will continue to follow the patient and make recommendations where appropriate. The patient's respiratory status is stable. Moving forward, we will see the patient only as needed. Time with Patient: Less than 30
[2021-09-20] MEDS ORDERED: Magnesium Replacement Protocol 1 EACH MISC MISCELLANE PRN (12:37)
[2021-09-20] MEDS ORDERED: Potassium Replacement Protocol 1 EACH MISC MISCELLANE PRN (12:37)
--- NOTE | 2021-09-20 13:12 | PN ---
PROGRESS NOTE I am covering for Dr. Astudillo. DATE OF SERVICE: 09/20/2021 This 76-year-old gentleman who was admitted with multiple medical problems, including sepsis, is on mechanical ventilation. The patient has metabolic encephalopathy and MSSA also. Patient is being closely monitored. Patient also has paroxysmal atrial fibrillation. The most recent brain MRI was reviewed personally by me. It was suboptimal and cerebral atrophy was noted. Past medical history reviewed. REVIEW OF SYSTEM: Fourteen-point review of systems negative except as mentioned earlier. MEDICATIONS: Reviewed. They include Eliquis 5 mg p.o. b.i.d. Doses and the rest of the medications noted. PHYSICAL EXAMINATION: Pulse is 85, blood pressure 106/45, respiration 20. HEENT: Conjunctivae normal. NECK: No jugular venous distention. CARDIOVASCULAR: S1, S2 muffled. RESPIRATION: Breath sounds diminished at the bases. A few scattered rhonchi and crackles. ABDOMEN: Soft, nontender. NERVOUS SYSTEM: No focal deficit. LABS: Accu-Cheks 150. ASSESSMENT: 1. Sepsis with acute hypoxic respiratory failure. 2. Acute kot-VZ-zhuwlzy-elevation myocardial infarction. 3. Change in mental status, metabolic encephalopathy. 4. MSSA. 5. Paroxysmal atrial fibrillation. 6. Coronary artery disease. 7. Hypertension. RECOMMENDATIONS AND DISCUSSION: I recommend to continue current medications, continue with the monitoring, symptomatic treatment. Monitor blood sugars closely. Hemoglobin was 8.6 and potassium 3.4. Will repeat the labs for tomorrow, then use the replacement protocols also. Prognosis is guarded. Further recommendations to follow. See orders for details. MMODL / IJN: [id number] / CHASITY
[2021-09-20] MEDS: APIXABAN 5 MG TAB PO SCH ×2 (14:09→20:30)
[2021-09-20 16:44] LABS: Glucose,Whole Blood 131 mg/dL (75-99)
--- NOTE | 2021-09-20 20:06 | P.PN ---
Subjective Progress Note Date: 09/19/21 Principal diagnosis: Fever/sepsis Patient is a 76-year-old male with multiple comorbidities was brought into the hospital after pending the patient did fell out of the bed and was found on the bedroom floor patient subsequently noticed to have a fever and he did went into respiratory distress requiring intubation. On today's evaluation that is 09/19/2021, the patient remains to be afebrile , the patient is breathing comfortably on nasal cannula oxygen, the patient denies any chest pain , the patient did have mild cough but in no sputum, no abdominal pain and diarrhea has decreased in frequency Objective - Vital Signs Vital signs: Vital Signs Temp 98.1 F 09/19/21 12:54 Pulse 93 09/19/21 12:54 Resp 20 09/19/21 12:54 BP 168/93 09/19/21 12:54 Pulse Ox 100 09/19/21 11:00 FiO2 40 09/16/21 09:00 Intake & Output 09/18/21 09/19/21 09/19/21 18:59 06:59 18:59 Intake Total 400 1125 310 Output Total 245 320 Balance 155 805 310 Weight 116.981 kg 116.981 kg Intake: IV 400 1125 Sodium Chloride 0.9% 1, 320 1125 000 ml @ 75 mls/hr IV . [id number] [facility] Rx#:[id number] Sodium Chloride 0.9% 2, 80 000 ml @ 999 mls/hr IV . Q2H1M [facility] Rx#:[id number] Blood Product 310 Rc As-1 Unit 310 [id number] Output: Urine 245 320 Other: Voiding Method Indwelling Catheter Indwelling Catheter # Bowel Movements 1 ABP, PAP, CO, CI - Last Documented Arterial Blood Pressure 113/59 - Exam GENERAL DESCRIPTION: An elderly male lying in bed in no distress RESPIRATORY SYSTEM: Unlabored breathing , coarse breath sounds bilaterally HEART: S1 S2 regular rate and rhythm , ABDOMEN: Soft , no tenderness EXTREMITIES: No edema feet - Labs CBC & Chem 7: 09/19/21 15:46 09/19/21 03:53 Labs: Abnormal Lab Results - Last 24 Hours (Table) 09/18/21 09/18/21 09/19/21 Range/Units 17:35 20:23 03:53 RBC 2.07 L (4.30-5.90) m/uL Hgb 6.3 L* (13.0-17.5) gm/dL Hct 20.0 L (39.0-53.0) % RDW 18.1 H (11.5-15.5) % Lymphocytes # 0.8 L (1.0-4.8) k/uL Potassium (3.5-5.1) mmol/L Chloride (98-107) mmol/L Glucose (74-99) mg/dL POC Glucose (mg/dL) 170 H 136 H (75-99) mg/dL Calcium (8.4-10.2) mg/dL Crossmatch 09/19/21 09/19/21 09/19/21 Range/Units 03:53 06:02 06:45 RBC (4.30-5.90) m/uL Hgb (13.0-17.5) gm/dL Hct (39.0-53.0) % RDW (11.5-15.5) % Lymphocytes # (1.0-4.8) k/uL Potassium 3.4 L (3.5-5.1) mmol/L Chloride 118 H (98-107) mmol/L Glucose 130 H (74-99) mg/dL POC Glucose (mg/dL) 148 H (75-99) mg/dL Calcium 7.8 L (8.4-10.2) mg/dL Crossmatch See Detail 09/19/21 Range/Units 12:00 RBC (4.30-5.90) m/uL Hgb (13.0-17.5) gm/dL Hct (39.0-53.0) % RDW (11.5-15.5) % Lymphocytes # (1.0-4.8) k/uL Potassium (3.5-5.1) mmol/L Chloride (98-107) mmol/L Glucose (74-99) mg/dL POC Glucose (mg/dL) 171 H (75-99) mg/dL Calcium (8.4-10.2) mg/dL Crossmatch Assessment and Plan (1) Sepsis Current Visit: Yes Status: Acute Code(s): A41.9 - SEPSIS, UNSPECIFIED ORGANISM SNOMED Code(s): 29373686 Plan: 1patient presented to hospital with mental status changes and fever and this patient did have a fall patient did have initial work-up for the fever including a UA chest x-ray CT abdominal pelvis has been negative patient did have history of left knee septic arthritis however the knee do not have any significant swelling or redness with minimal warmth with concern for possible [employer] infection for which the patient did have LP completed , CSF did have some elevated protein and glucose was elevated however the white count was not significantly elevated 2patient CSF HSV DNA by PCR came back negative acyclovir was discontinued. West Nile IgM on CSF is pending 3left lower lobe atelectasis and a question of pneumonia, cefepime has been discontinued and currently being monitored closely off antibiotic. 4diarrhea with recent antibiotic exposure, however stool for C. diff came back negative vancomycin will be discontinued Time with Patient: Less than 30
--- NOTE | 2021-09-20 20:10 | P.PN ---
Subjective Progress Note Date: 09/20/21 Principal diagnosis: Fever/sepsis Patient is a 76-year-old male with multiple comorbidities was brought into the hospital after pending the patient did fell out of the bed and was found on the bedroom floor patient subsequently noticed to have a fever and he did went into respiratory distress requiring intubation patient subsequently has been successfully extubated on 09/16/2021. On today's evaluation that is 09/20/2021, the patient denies any fever or chills , the patient is breathing comfortably on nasal cannula oxygen, the patient chest pain , the patient did have occasional dry cough, the patient denies abdominal pain and diarrhea has resolved Objective - Vital Signs Vital signs: Vital Signs Temp 98.1 F 09/20/21 16:14 Pulse 74 09/20/21 16:14 Resp 20 09/20/21 16:14 BP 146/66 09/20/21 16:14 Pulse Ox 98 09/20/21 16:14 FiO2 40 09/16/21 09:00 Intake & Output 09/19/21 09/20/21 09/20/21 18:59 06:59 18:59 Intake Total 370 510 Output Total 550 500 325 Balance -180 -500 185 Weight 116.981 kg Intake: IV 60 Sodium Chloride 0.9% 1, 60 000 ml @ 20 mls/hr IV . Q24H [facility] Rx#:[id number] Oral 510 Blood Product 310 Rc As-1 Unit 310 [id number] Output: Urine 450 500 325 Stool 0 Urine/Stool Mix 0 Oral Regurgitation 100 Other: Voiding Method Indwelling Catheter Indwelling Catheter # Voids 0 # Bowel Movements 1 0 ABP, PAP, CO, CI - Last Documented Arterial Blood Pressure 113/59 - Exam GENERAL DESCRIPTION: An elderly male lying in bed in no distress RESPIRATORY SYSTEM: Unlabored breathing , coarse breath sounds bilaterally HEART: S1 S2 regular rate and rhythm , ABDOMEN: Soft , no tenderness EXTREMITIES: No edema feet - Labs CBC & Chem 7: 09/19/21 15:46 09/19/21 03:53 Labs: Abnormal Lab Results - Last 24 Hours (Table) 09/19/21 09/19/21 09/19/21 Range/Units 15:46 17:08 20:05 RBC 2.77 L (4.30-5.90) m/uL Hgb 8.6 L D (13.0-17.5) gm/dL Hct 26.5 L (39.0-53.0) % RDW 17.5 H (11.5-15.5) % POC Glucose (mg/dL) 127 H 144 H (75-99) mg/dL 09/20/21 09/20/21 Range/Units 06:24 11:42 RBC (4.30-5.90) m/uL Hgb (13.0-17.5) gm/dL Hct (39.0-53.0) % RDW (11.5-15.5) % POC Glucose (mg/dL) 133 H 150 H (75-99) mg/dL Assessment and Plan (1) Sepsis Current Visit: Yes Status: Acute Code(s): A41.9 - SEPSIS, UNSPECIFIED ORGANISM SNOMED Code(s): 02821104 Plan: 1patient presented to hospital with mental status changes and fever and this patient did have a fall patient did have initial work-up for the fever including a UA chest x-ray CT abdominal pelvis has been negative patient did have history of left knee septic arthritis however the knee do not have any significant swelling or redness with minimal warmth with 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 West Nile IgM on CSF is pending as of 09/20/2021 3left lower lobe atelectasis and a question of pneumonia, cefepime has been discontinued and currently doing well off antibiotic. 4diarrhea with recent antibiotic exposure, however stool for C. diff came back negative, patient is currently off oral vancomycin, may use Questran as needed Time with Patient: Less than 30
[2021-09-20 20:18] LABS: Glucose,Whole Blood 211 mg/dL (75-99)
[2021-09-20] MEDS: TAMSULOSIN 0.4 MG CAP.ER.24H PO SCH (20:30)
[2021-09-21] MEDS: METOPROLOL TARTRATE 50 MG TAB PO SCH ×4 (05:49→21:09)
[2021-09-21] MEDS: NYSTATIN 100,000 UNIT/ML SUSP 500,000 UNIT/5 ML CUP PO SCH ×6 (05:49→22:04)
[2021-09-21 06:16] LABS: Glucose,Whole Blood 119 mg/dL (75-99)
[2021-09-21] MEDS: SODIUM CHLORIDE 0.9% 1,000 ML IV SCH ×2 (08:10→08:11)
[2021-09-21] MEDS: ASPIRIN 81 MG PO SCH (08:38)
[2021-09-21] MEDS: AMIODARONE 200 MG TAB PO SCH ×2 (08:38→21:09)
[2021-09-21] MEDS: ATORVASTATIN 80 MG TAB PO SCH (08:38)
[2021-09-21] MEDS: APIXABAN 5 MG TAB PO SCH ×2 (08:38→21:09)
[2021-09-21] MEDS: LOSARTAN 50 MG TAB PO SCH (08:39)
[2021-09-21] MEDS: PANTOPRAZOLE 40 MG TABLET PO SCH (08:39)
[2021-09-21] MEDS: FOLIC ACID 1 MG TAB PO SCH (08:39)
[2021-09-21] MEDS: INSULIN ASPART (NovoLOG) 100 UNIT/ML VIAL SQ SCH ×4 (08:42→21:09)
[2021-09-21 09:01] LABS: Anisocytosis Slight; Basophils % (A) 1 %; Eosinophils % (A) 0 %; HGB 7.6 gm/dL (13.0-17.5); Hypochromasia Slight; Lymphocytes # (A) 0.5 k/uL (1.0-4.8); Lymphocytes % (A) 18 %; MCH 30.5 pg (25.0-35.0); MCHC 31.7 g/dL (31.0-37.0); MCV 96.1 fL (80.0-100.0); Macrocytosis Slight; Mean Platelet Volume 8.3; Monocytes # (A) 0.3 k/uL (0-1.0); Monocytes % (A) 10 %; Neutrophils % (A) 68 %; Platelet Count 153 k/uL (150-450); Poikilocytosis Slight; RBC 2.49 m/uL (4.30-5.90); RDW 18.6 % (11.5-15.5); WBC 2.9 k/uL (3.8-10.6)
[2021-09-21 09:12] LABS: African American GFR (CKD) 89 (>60 ml/min/1.73 sqM); Anion Gap 6 mmol/L; Blood Urea Nitrogen 17 mg/dL (9-20); C Reactive Protein <0.5 mg/dL (<1.0); Calcium 8.3 mg/dL (8.4-10.2); Carbon Dioxide 22 mmol/L (22-30); Chloride 114 mmol/L (98-107); Glucose 139 mg/dL (74-99); Magnesium 1.6 mg/dL (1.6-2.3); Non-African American GFR(CKD) 77 (>60 ml/min/1.73 sqM); Potassium 3.1 mmol/L (3.5-5.1); Sodium 142 mmol/L (137-145)
[2021-09-21 11:42] LABS: Glucose,Whole Blood 127 mg/dL (75-99)
[2021-09-21] MEDS ORDERED: POTASSIUM CHLORIDE ER 20 MEQ TAB.ER PO STA (12:51)
--- NOTE | 2021-09-21 12:52 | P.PN ---
Subjective Progress Note Date: 09/21/21 HISTORY OF PRESENTING ILLNESS This is a 76-year-old gentleman was brought to the hospital with mental status changes and fall. Apparently patient was not feeling well for the last several days and was complaining of generalized weakness. He is currently intubated and most of the information is gathered from chart and jury consultant notes and also from the nurses. Patient has history of septic arthritis coronary artery disease, hypertension, hypercholesterolemia with previous intervention of the right coronary artery. Patient was in atrial fibrillation on admission and was initially treated with IV Cardizem and subsequent change to IV amiodarone. His converted to sinus rhythm. Patient is currently sedated. Patient apparently not withdrawing with painful stimuli before the sedation. He is a troponin values went up suggestive of non-STEMI. EKG did not reveal any acute ST-T abnormalities. Echocardiogram is requested. Is being followed by neurology, infectious disease and also surgical team. Apparently patient also has carotid disease. From Cardec standpoint, patient is not a candidate for any intervention at this time. We will get an echo Cardec gram to assess LV function. Continue with IV amiodarone. Patient was treated with heparin but was discontinued because of high PTT. That needs to be resumed once feasible. Prognosis is guarded 09/13 Patient seen and examined. Initially was in A. fib however currently sinus rhythm. Noted to be elevated lactic acid and elevating troponins initially normal and then elevated up to 15. Currently remains intubated and sedated. Lactic acid has improved, creatinine stable at 1.1. He is having fevers up to 102. Pro-calcitonin mildly elevated 0.35. Requiring higher levels of propofol for sedation. Tube feeds at 16 and giving gentle IV fluids. Ventilator settings with FiO2 40% and a PEEP of 5. EKG shows no significant change from prior. Echo performed which shows somewhat poor quality however ejection fraction 50-55% without significant valvular disease. 09/14 Patient seen and examined. Patient attempted on weaning yesterday and failed. Remains on norepinephrine at 0.0. He remains in sinus rhythm and no significant atrial fibrillation. Creatinine stable today. Ventilator settings 40% FiO2 and 5 of PEEP. 09/15 Patient seen and examined. Patient remains on tube feeds at 16 mL per hour. Remains on ventilator with FiO2 40% and a PEEP of 5. Has been off and on norepinephrine however blood pressures relatively stable. 09/20/2021 Patient seen and examined this morning on 3S. Patient denies chest pain or press ure. He denies shortness of breath. Telemetry appears to be atrial flutter with 3-1 conduction with a heart rate around 120. 09/21/2021 Patient remains in atrial fibrillation with controlled rate ran in the 70s. Patient denies chest pain or shortness of breath. He is confused about discharge planning thinks he is going to rehab or home today and continuously repeats the same sentences. Repeat lab work reveals WBC 2.9 hemoglobin 7.6. Potassium 3.1 and will be replaced PHYSICAL EXAMINATION Vital signs reviewed. CONSTITUTIONAL: No apparent distress HEENT: Head is normocephalic. Pupils are equal, round. Sclerae anicteric. Mucous membranes of the mouth are moist. No JVD. No carotid bruit. CHEST EXAMINATION: Lungs are clear to auscultation. No chest wall tenderness is noted on palpation or with deep breathing. HEART EXAMINATION: Tachycardic. Irregular rate and rhythm. S1, S2 heard. No murmurs, gallops or rub. ABDOMEN: Soft, nontender. Positive bowel sounds. EXTREMITIES: 3+ peripheral pulses, + bilateral lower extremity edema and no calf tenderness. ASSESSMENT 1. Acute on chronic respiratory failure, intubated mainly for AMS 2. Altered mental status 3. Paroxysmal atrial fibrillation initially RVR 4. Coronary artery disease with history of prior PCI 5. Non-STEMI troponin up to 15, unclear type I versus type II mechanism 6. Shock requiring vasopressors, suspected septic shock without obvious source 7. Lactic acidosis 8. Concern of possible carotid artery stenosis 9. Anemia, s/p RBC transfusion 10. Typical atrial flutter with RVR PLAN Continue current cardiac medications Continue Eliquis. Monitor hemoglobin as patient required RBC transfusion Continue amio 400mg BID, Lopressor 50 mg 3 times daily Continue telemetry monitoring Further recommendations pending patient course Nurse practitioner note has been reviewed by physician. Signing provider agrees with the documented findings, assessment, and plan of care. Objective - Vital Signs Vital signs: Vital Signs Temp 98.0 F 09/21/21 08:26 Pulse 89 09/21/21 08:26 Resp 20 09/21/21 08:26 BP 145/74 09/21/21 08:26 Pulse Ox 97 09/21/21 08:26 FiO2 40 09/16/21 09:00 Intake & Output 09/20/21 09/21/21 09/21/21 18:59 06:59 18:59 Intake Total 630 240 Output Total 425 360 Balance 205 -360 240 Intake: Oral 630 240 Output: Urine 425 360 Stool 0 0 Urine/Stool Mix 0 Other: Voiding Method Indwelling Catheter Indwelling Catheter # Voids 0 # Bowel Movements 0 ABP, PAP, CO, CI - Last Documented Arterial Blood Pressure 113/59 - Labs CBC & Chem 7: 09/21/21 08:33 09/21/21 08:33 Labs: Abnormal Lab Results - Last 24 Hours (Table) 09/20/21 09/20/21 09/20/21 Range/Units 11:42 16:42 20:16 WBC (3.8-10.6) k/uL RBC (4.30-5.90) m/uL Hgb (13.0-17.5) gm/dL Hct (39.0-53.0) % RDW (11.5-15.5) % Lymphocytes # (1.0-4.8) k/uL Potassium (3.5-5.1) mmol/L Chloride (98-107) mmol/L Glucose (74-99) mg/dL POC Glucose (mg/dL) 150 H 131 H 211 H (75-99) mg/dL Calcium (8.4-10.2) mg/dL 09/21/21 09/21/21 09/21/21 Range/Units 06:14 08:33 08:33 WBC 2.9 L (3.8-10.6) k/uL RBC 2.49 L (4.30-5.90) m/uL Hgb 7.6 L (13.0-17.5) gm/dL Hct 24.0 L (39.0-53.0) % RDW 18.6 H (11.5-15.5) % Lymphocytes # 0.5 L (1.0-4.8) k/uL Potassium 3.1 L (3.5-5.1) mmol/L Chloride 114 H (98-107) mmol/L Glucose 139 H (74-99) mg/dL POC Glucose (mg/dL) 119 H (75-99) mg/dL Calcium 8.3 L (8.4-10.2) mg/dL
--- NOTE | 2021-09-21 14:24 | PN ---
PROGRESS NOTE DATE OF SERVICE: 09/21/[address] Astudillo. HISTORY OF PRESENT ILLNESS: This 76 -year-old gentleman who was admitted with multiple medical problems, acute hypoxic respiratory failure, complains of weakness. The patient is awaiting for rehab. No chest pain. No palpitations. No fever. PHYSICAL EXAMINATION: Pulse 71, blood pressure 116/52. Respirations 20. Chest is few scattered rhonchi and crackles. Abdomen: Soft. Nervous system: No focal deficits. LAB STUDIES: Hemoglobin 7.6. Other labs are noted. ASSESSMENT: 1. Sepsis with acute hypoxic respiratory failure. 2. Acute pki-GH-gnrsjvr-elevation myocardial infarction. 3. Change in mental status acute metabolic encephalopathy. 4. Hypokalemia. 5. MSSA. 6. Paroxysmal atrial fibrillation. 7. Coronary artery disease. 8. Hypertension. RECOMMENDATIONS AND DISCUSSION: Continue current medications, symptomatic treatment. Otherwise, potassium supplementation. I would also recommend repeat labs in the morning and Dr. Astudillo will follow. Possible ECF rehab. Guarded prognosis. Further recommendations to follow. MMODL / IJN: [id number] /
[2021-09-21 16:43] LABS: Glucose,Whole Blood 191 mg/dL (75-99)
[2021-09-21] MEDS: TAMSULOSIN 0.4 MG CAP.ER.24H PO SCH (17:14)
[2021-09-21 20:38] LABS: Glucose,Whole Blood 149 mg/dL (75-99)
[2021-09-22 06:20] LABS: Glucose,Whole Blood 138 mg/dL (75-99)
[2021-09-22] MEDS: INSULIN ASPART (NovoLOG) 100 UNIT/ML VIAL SQ SCH ×2 (06:36→12:41)
[2021-09-22] MEDS: PANTOPRAZOLE 40 MG TABLET PO SCH (06:36)
[2021-09-22] MEDS: SODIUM CHLORIDE 0.9% 1,000 ML IV SCH (06:38)
--- NOTE | 2021-09-22 07:58 | P.PN ---
Subjective Progress Note Date: 09/21/21 Principal diagnosis: Fever/sepsis Patient is a 76-year-old male with multiple comorbidities was brought into the hospital after pending the patient did fell out of the bed and was found on the bedroom floor patient subsequently noticed to have a fever and he did went into respiratory distress requiring intubation patient subsequently has been successfully extubated on 09/16/2021. On today's evaluation that is 09/21/2021, the patient remains to be afebrile , the patient is breathing comfortably on nasal cannula oxygen, the patient denies chest pain , the patient did have occasional dry cough, the patient denies abdominal pain and diarrhea has decreasing in frequency and is forming up for the patient Objective - Vital Signs Vital signs: Vital Signs Temp 97.5 F L 09/21/21 11:26 Pulse 71 09/21/21 13:29 Resp 20 09/21/21 11:26 BP 116/55 09/21/21 11:26 Pulse Ox 99 09/21/21 11:26 FiO2 40 09/16/21 09:00 Intake & Output 09/20/21 09/21/21 09/21/21 18:59 06:59 18:59 Intake Total 630 510 Output Total 425 360 0 Balance 205 -360 510 Intake: Oral 630 510 Output: Urine 425 360 0 Stool 0 0 0 Urine/Stool Mix 0 0 Emesis 0 Other: Voiding Method Indwelling Catheter Indwelling Catheter Indwelling Catheter # Voids 0 0 # Bowel Movements 0 0 ABP, PAP, CO, CI - Last Documented Arterial Blood Pressure 113/59 - Exam GENERAL DESCRIPTION: An elderly male lying in bed in no distress RESPIRATORY SYSTEM: Unlabored breathing , coarse breath sounds bilaterally HEART: S1 S2 regular rate and rhythm , ABDOMEN: Soft , no tenderness Sacral area did have a stage II ulcer with no slough tissue or significant surrounding redness EXTREMITIES: No edema feet - Labs CBC & Chem 7: 09/21/21 08:33 09/21/21 08:33 Labs: Abnormal Lab Results - Last 24 Hours (Table) 09/20/21 09/20/21 09/21/21 Range/Units 16:42 20:16 06:14 WBC (3.8-10.6) k/uL RBC (4.30-5.90) m/uL Hgb (13.0-17.5) gm/dL Hct (39.0-53.0) % RDW (11.5-15.5) % Lymphocytes # (1.0-4.8) k/uL Potassium (3.5-5.1) mmol/L Chloride (98-107) mmol/L Glucose (74-99) mg/dL POC Glucose (mg/dL) 131 H 211 H 119 H (75-99) mg/dL Calcium (8.4-10.2) mg/dL 09/21/21 09/21/21 09/21/21 Range/Units 08:33 08:33 11:41 WBC 2.9 L (3.8-10.6) k/uL RBC 2.49 L (4.30-5.90) m/uL Hgb 7.6 L (13.0-17.5) gm/dL Hct 24.0 L (39.0-53.0) % RDW 18.6 H (11.5-15.5) % Lymphocytes # 0.5 L (1.0-4.8) k/uL Potassium 3.1 L (3.5-5.1) mmol/L Chloride 114 H (98-107) mmol/L Glucose 139 H (74-99) mg/dL POC Glucose (mg/dL) 127 H (75-99) mg/dL Calcium 8.3 L (8.4-10.2) mg/dL Assessment and Plan (1) Sepsis Current Visit: Yes Status: Acute Code(s): A41.9 - SEPSIS, UNSPECIFIED ORGANISM SNOMED Code(s): 00816553 Plan: 1patient presented to hospital with mental status changes and fever and this patient did have a fall patient did have initial work-up for the fever including a UA chest x-ray CT abdominal pelvis has been negative patient did have history of left knee septic arthritis however the knee do not have any significant swelling or redness with minimal warmth with 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 West Nile IgM on CSF is pending as of 09/21/2021 3left lower lobe atelectasis and a question of pneumonia, cefepime has been discontinued and patient did have a normal CRP and pro calcitonin 4diarrhea with recent antibiotic exposure, however stool for C. diff came back negative, patient to continue Questran as needed 5stage II pressure ulcer no cellulitis , local wound care with dry Aquacel silver dressing Time with Patient: Less than 30
[2021-09-22 08:00] VITALS: RESP 16; TEMP 98
[2021-09-22] MEDS: AMIODARONE 200 MG TAB PO SCH (08:04)
[2021-09-22] MEDS: FOLIC ACID 1 MG TAB PO SCH (08:05)
[2021-09-22] MEDS: APIXABAN 5 MG TAB PO SCH (08:05)
[2021-09-22] MEDS: ASPIRIN 81 MG PO SCH (08:05)
[2021-09-22] MEDS: ATORVASTATIN 80 MG TAB PO SCH (08:05)
[2021-09-22] MEDS: METOPROLOL TARTRATE 50 MG TAB PO SCH (08:05)
[2021-09-22] MEDS: LOSARTAN 50 MG TAB PO SCH (08:05)
[2021-09-22] MEDS: NYSTATIN 100,000 UNIT/ML SUSP 500,000 UNIT/5 ML CUP PO SCH ×2 (08:05→12:41)
[2021-09-22] MEDS ORDERED: CHOLESTYRAMINE (WITH SUGAR) 4 GM PACKET PO SCH (10:00)
[2021-09-22 10:11] LABS: Anisocytosis Slight; Basophils % (A) 1 %; Eosinophils % (A) 0 %; HCT 24.6 % (39.0-53.0); HGB 7.8 gm/dL (13.0-17.5); Hypochromasia Slight; Lymphocytes # (A) 0.5 k/uL (1.0-4.8); Lymphocytes % (A) 16 %; MCH 31.1 pg (25.0-35.0); MCHC 31.9 g/dL (31.0-37.0); MCV 97.6 fL (80.0-100.0); Macrocytosis Slight; Mean Platelet Volume 8.6; Monocytes # (A) 0.4 k/uL (0-1.0); Monocytes % (A) 12 %; Neutrophils # (A) 2.2 k/uL (1.3-7.7); Neutrophils % (A) 69 %; Platelet Count 127 k/uL (150-450); Poikilocytosis Slight; RBC 2.52 m/uL (4.30-5.90); RDW 18.5 % (11.5-15.5); WBC 3.1 k/uL (3.8-10.6)
[2021-09-22 10:19] LABS: Calcium 8.3 mg/dL (8.4-10.2)
[2021-09-22 10:41] LABS: Potassium 3.7 mmol/L (3.5-5.1)
[2021-09-22 11:29] VITALS: BP 135/72; PULSE 65
[2021-09-22 11:50] LABS: Glucose,Whole Blood 130 mg/dL (75-99)
--- NOTE | 2021-09-22 12:56 | P.PN ---
Subjective This is a 76-year-old gentleman past medical history of septic arthritis coronary artery disease, hypertension, hypercholesterolemia with previous in tervention of the right coronary artery. Unknown if patient follows with a floor broker. He was admitted to the hospital, brought to the hospital with mental status changes and fall. Apparently patient was not feeling well for the last several days and was complaining of generalized weakness. He was intubated and admitted to the ICU. Patient was in atrial fibrillation on admission and was initially treated with IV Cardizem and subsequent change to IV amiodarone. His converted to sinus rhythm. He is a troponin values went up suggestive of non-STEMI. EKG did not reveal any acute ST-T abnormalities. Echo performed which shows somewhat poor quality however ejection fraction 50-55% without significant valvular disease. 09/22/2021 Patient seen and examined this morning on 3S. Patient denies chest pain or pressure. He denies shortness of breath. Telemetry appears to be sinus mechanism with HR 80s. Hes currently maintained on amiodarone 400mg BID, Eliquis 5mg BID, Aspirin 81mg daily, Losartan 100mg daily, metoprolol 50mg TID PHYSICAL EXAMINATION Vital signs reviewed. CONSTITUTIONAL: No apparent distress, ill appearing, intubated and sedated HEENT: Neck Supple No JVD. CHEST EXAMINATION: Lungs are clear to auscultation. No chest wall tenderness is noted on palpation or with deep breathing. HEART EXAMINATION: Regular rate and rhythm. S1, S2 heard. No murmurs, gallops or rub. ABDOMEN: Soft, nontender. Positive bowel sounds. EXTREMITIES: 2+ peripheral pulses, no lower extremity edema and no calf tenderness. NEUROLOGIC EXAMINATION: Patient is sedated on vent ASSESSMENT Acute on chronic respiratory failure, requiring intubation and mechanical ventilation on 09/12/2001, and successful extubation on 09/16/2021. Altered mental status Acute/Subacute infarct right parietal lobe reported on MRI Brain Paroxysmal atrial fibrillation initially RVR currently sinus rhythm, on Eliquis Typical atrial flutter with RVR Coronary artery disease with history of prior PCI Non-STEMI troponin up to 15, unclear type I versus type II mechanism Shock requiring vasopressors, suspected septic shock without obvious source Lactic acidosis PLAN Continue current cardiac medications Continue Eliquis. Monitor hemoglobin as patient required RBC transfusion Continue amio 400mg BID for 1 week. Amio 200mg BID starting 6/11 for 2 weeks. Amiodarone 200mg daily starting 10/11/21. Instructions placed in discharge From a cardiology perspective, no further changes at this time. We will follow the patient as needed. Recommend close follow up as an outpatient in the office after discharge Nurse practitioner note has been reviewed by physician. Signing provider agrees with the documented findings, assessment, and plan of care. Objective - Vital Signs Vital signs: Vital Signs Temp 98.0 F 09/22/21 07:59 Pulse 65 09/22/21 11:28 Resp 16 09/22/21 11:28 BP 135/72 09/22/21 11:28 Pulse Ox 99 09/22/21 11:28 FiO2 40 09/16/21 09:00 Intake & Output 09/21/21 09/22/21 09/22/21 18:59 06:59 18:59 Intake Total 510 Output Total 200 450 Balance 310 -450 Intake: Oral 510 Blood Product 0 Output: Urine 200 450 Stool 0 Urine/Stool Mix 0 Emesis 0 Other: Voiding Method Indwelling Catheter Indwelling Catheter Indwelling Catheter # Voids 0 # Bowel Movements 1 ABP, PAP, CO, CI - Last Documented Arterial Blood Pressure 113/59 - Labs CBC & Chem 7: 09/22/21 08:38 09/22/21 08:38 Labs: Abnormal Lab Results - Last 24 Hours (Table) 09/21/21 09/21/21 09/22/21 Range/Units 16:32 20:36 06:19 WBC (3.8-10.6) k/uL RBC (4.30-5.90) m/uL Hgb (13.0-17.5) gm/dL Hct (39.0-53.0) % RDW (11.5-15.5) % Plt Count (150-450) k/uL Lymphocytes # (1.0-4.8) k/uL Chloride (98-107) mmol/L Carbon Dioxide (22-30) mmol/L Glucose (74-99) mg/dL POC Glucose (mg/dL) 191 H 149 H 138 H (75-99) mg/dL Calcium (8.4-10.2) mg/dL 09/22/21 09/22/21 09/22/21 Range/Units 08:38 08:38 11:49 WBC 3.1 L (3.8-10.6) k/uL RBC 2.52 L (4.30-5.90) m/uL Hgb 7.8 L (13.0-17.5) gm/dL Hct 24.6 L (39.0-53.0) % RDW 18.5 H (11.5-15.5) % Plt Count 127 L (150-450) k/uL Lymphocytes # 0.5 L (1.0-4.8) k/uL Chloride 114 H (98-107) mmol/L Carbon Dioxide 18 L (22-30) mmol/L Glucose 135 H (74-99) mg/dL POC Glucose (mg/dL) 130 H (75-99) mg/dL Calcium 8.3 L (8.4-10.2) mg/dL
[2021-09-22] MEDS ORDERED: FUROSEMIDE 40 MG TAB PO SCH (13:15)
[2021-09-22] MEDS ORDERED: SPIRONOLACTONE 25 MG TAB PO SCH (13:15)
--- NOTE | 2021-09-22 13:16 | P.DS ---
Providers Date of admission: 09/11/21 06:46 Expected date of discharge: 09/22/21 Attending physician: German Astudillo Consults: 09/11/21 06:46 Consult Physician Routine Consulting Provider: Gerardo Gilbert Consult Reason/Comments: Atrial fibrillation with RVR. Do you want consulting provider notified?: Yes 09/11/21 06:59 Consult Physician Routine Consulting Provider: Trevor Louis Consult Reason/Comments: altered mental status Do you want consulting provider notified?: Yes Consult Physician Routine Consulting Provider: Yessy Strickland Consult Reason/Comments: suspected sepsis, unknown source Do you want consulting provider notified?: Yes Primary care physician: German Astudillo [facility] Course: HISTORY OF PRESENT ILLNESS: This is a 75-year-old male patient of mine with previous medical history significant for coronary artery disease status post percutaneous coronary intervention and stent placement last one was in 12/13/2019 in the mid RCA at that time he was found to have a totally occluded obtuse marginal one of the LCx, with collaterals from the PDA, hypertension and hypertensive cardiovascular disease, hyperlipidemia, diabetes mellitus type 2, diabetic polyneuropathy, 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 as well as radio frequency ablation, prostate cancer status post radiation therapy, MSSA septic arthritis left knee. Patient apparently had a fall out of bed and was found on the bedroom floor and patient was transferred to [facility] emergency center for evaluation. Prior to the fall, patient has not been feeling well for at least a few days and continued to worsen. He was reported to have a cough with weakness. Patient was taking vbrc-ebf-ytrxesd cough medication without improvement. Initially temperature was 98.9, heart rate 99, blood pressure 145/109, pulse ox 93% on room air. Temperature max as morning is 102.8 with heart rate of 127. WBC 5.8, hemoglobin 14.1, platelet count 138. INR 1.1. Sodium 133, potassium 3.8, chloride 98, CO2 19, BUN 16 creatinine 0.88. Blood sugar 207. Lactic acid 7.3 and repeat 3.9. Calcium 9.2. Total bilirubin 1.4, AST 50, ALT 56, alkaline phosphatase 50. Troponin 0.013 followed by 2.370. Urinalysis was clear, blood moderate, RBC 6. Bacteria many. Serum alcohol level less than 10. Chronic virus PCR not detected. Influenza A not detected. Influenza B not detected. CAT scan of the brain revealed mild atrophy and chronic small vessel ischemia. No change compared to old exam. No acute intracranial abnormality. Chest x-ray, pelvis x-ray, cervical spine x-ray and abdominal and pelvic CAT scan have been completed but unable to open reports. Patient is seen today in the emergency center waiting for a bed on the cardiac stepdown unit. He has been started on heparin drip, cefepime and vancomycin and consults are in place with cardiology, infectious disease and neurology. Patient is status post diagnostic lumbar puncture completed by anesthesiology 09/12:patient went into acute respiratory failure and for airway protection he was intubated last night, and he is currently on before meals mode with a tidal volume of 450 FiO2 of 40% and PEEP of 5, his oxygen saturations. Gout, patient converted from atrial fibrillation to a normal sinus rhythm currently on amiodarone drip at 0.5 mg/m, he has been using the Levophed as well as propofol drip, for sedation, patient was also started on a cyclic severe per ICU for further coverage of possible viral meningitis, patient is to be maintained on vancomycin as well as cefepime as well, his urine output is good, he continues to be critical at this point in time. 09/13: Patient remains in the intensive care unit, currently elevated before meals mode 22 FiO2 40% and PEEP of 5 , patient continues to be sedated, had a sedation holiday today and now back on fentanyl and propofol, continues to be on IV antibiotic cefepime and vancomycin, HSV PCR pending, continues with Acyclovir 900 mg IV piggyback every 8 hours, monitor the patient very closely, prognosis continues to be guarded. 09/14: Patient was seen in intensive care unit today he continues to be on ventilator, vent setting limits before meals 22, FiO2 40% tidal volume of 400 PEEP of 5 patient tried a sedation holiday today but he continues to be very confused and barely responsive, his urine output has been adequate, he has been maintained on cefepime, vancomycin, acyclovir, continue with aggressive treatment plan, discussed with slitter and cutter operator the need for the rest of the encephalitis panel was not sent and HSV PCR still pending at the time of dictation. 09/15: Patient was seen in the intensive care unit today, he continues to be on propofol drip, he was taken off fentanyl drip, sedation holiday was not very effective last night, he did have a good bowel movement, he continues to be on before meals mode 22 FiO2 40% and PEEP of 5 and tidal volume of 400, he has been getting cefepime, vancomycin, and acyclovir, PCR still pending, patient prognosis continues to be guarded. 09/16: Patient remains in intensive care unit. He was successfully extubated this morning by pulmonary medicine. Patient is somewhat slow/possible remnant of sedation but answers questions appropriately. Patient noted to have loose cough with sputum. Repeat chest x-ray reveals left lower lobe atelectasis versus pneumonia and possible associated effusion. Patient has been afebrile, heart rate 84, blood pressure 126/60, pulse ox 96% on 2 L nasal cannula. Repeat blood work reveals WBC 3.3, hemoglobin 10.8, platelet count 111. Sodium 140, potassium 3.6, chloride 117, CO2 21, BUN 14 creatinine 0.91. Blood sugar 143. Capillary blood glucose running between 120-143. 09/17: Patient remains in the intensive care unit. He is currently on oxygen at 2 L nasal cannula with pulse ox of 96%. Patient has been afebrile, blood pressure 140/65, heart rate 103. dietetic assistant is sinus rhythm. Repeat blood work rev eals WBC 3.9, hemoglobin 9.9, platelet count 115. Sodium 139, potassium 3.3, chloride 115, CO2 22, BUN 12 and creatinine 0.88. Capillary blood glucose running between 81 and 120. Patient failed swallow eval yesterday but is currently on pured diet with honey thick liquids. Repeat chest x-ray reveals suspect some improvement in aeration, difficult to exclude component of volume overload, interstitial edema. Patient remains cognitively slow, continues to have a cough with he states very little phlegm production. He is also complaining of the stomach hurting. Patient is also followed by neurology and MRI of the brain has been ordered. Patient has been resumed on eliquis by cardiology. 09/18: Patient remains in the intensive care unit. He has been cleared to transfer to cardiac stepdown unit per Dr. Louis. dietetic assistant is atrial fibrillation with RVR and cardiology increased metoprolol. Patient has been afebrile, heart rate 125, blood pressure 143/87, pulse ox 94% on room air. Patient is to have more confusion today, talking rapidly but is more alert. Patient is eating a popsicle but complaining of abdominal pain with tenderness to the left lower quadrant and diarrhea. Stool to be sent for C. difficile toxin, and Dr. Strickland notified and patient started on oral vancomycin and await results of C. difficile testing. Otherwise, patient is not currently on antibiotics. Nystatin added for oral thrush. MRI of the brain revealed suboptimal study due to patient motion. Evolving acute/subacute infarct right parietal lobe posterior watershed region is likely present. Extension into the posterior super super superior temporal lobe and superior cerebellar hemisphere cannot be excluded. Background mild to moderate diffuse cerebral atrophy and chronic small vessel ischemic change. Worsening paranasal sinus disease. 09/19: Patient remains in the intensive care unit. C. difficile toxin came back negative and vancomycin oral be discontinued. Patient's mentation remains quite confused that he is more alert today and more verbal. He has weakness on the left side neurology is following as well as infectious disease and slitter and cutter operator. Patient has been cleared to transfer out of the intensive care unit. Patient has been afebrile, heart rate 93, blood pressure 168/93, pulse ox 100% on room air. Code hemoglobin 6.3, platelet count 153. Sodium 141, potassium 3.4 and has been replaced, chloride 118, CO2 23, BUN 18 creatinine 1.05. Capillary blood glucose running between 136-171. Patient has been transfused 1 unit of packed RBCs. Blood cultures been finalized with no growth, sputum culture in progress. Genital culture Bibiana albicans. Group A strep throat culture negative. Comprehensive viral panel was negative. Patient is off antibiotics. Patient is having urinary retention and Shelley catheter will need to be replaced, Flomax started. Blood pressure is increasing and patient will be started on losartan 100 mg daily. Stool for occult blood to be obtained. Patient apparently had one episode of diarrhea this morning at shift change and none since that time and no blood was noted apparently. 09/22: Patient denies new concerns today but is concerned about his clothing, issues with his daughter, feels that he needs to pay. He has been accepted at [facility] and plan will be for discharge today. Cardiology has advised on amiodarone taper. Patient has Shelley catheter in place for urinary retention which will be maintained until discharge and will be removed at the custodial. Patient will be discharged today in stable condition. DISCHARGE DIAGNOSES 1. Acute Vent dependent respiratory failure due to sepsis with mental status changes, successfully extubated. 2. Non-ST elevated myocardial infarction. 3. Metabolic encephalopathy related to evolving acute/subacute infarct. 4. History of MSSA left knee joint infection status post stage II revision,stable. 5. Severe lactic acidosis. 6. paroxysmal atrial fibrillatioN 7. Coronary artery disease status post Left heart catheterization with PCI of the RCA on 07/30/2020. 8. Hypertension and hypertensive cardiovascular disease. 9. Hyperlipidemia. 10. Diabetes mellitus type 2. 11. History of prostate cancer status post radiation. 12. 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 13. Urinary retention. 14. Diarrhea and left lower quadrant tenderness. Stool negative for C. difficile DISCHARGE PLAN Subacute rehab at [facility] Greater than 35 minutes was utilized and coordinating patient's discharge. Impression and plan of care have been directed as dictated by the signing physician. Padma Monsalve nurse practitioner acting as scribe for signing physician. Patient Condition at Discharge: Stable Plan - Discharge Summary Discharge Rx Participant: No New Discharge Prescriptions: New Spironolactone [Aldactone] 25 mg PO DAILY tab Amiodarone [Cordarone] 400 mg PO BID #60 tab Apixaban [Eliquis] 5 mg PO BID tab Folic Acid 1 mg PO DAILY tab Furosemide [Lasix] 40 mg PO DAILY tab Metoprolol Tartrate [Lopressor] 50 mg PO TID tab Nystatin 100,000 Unit/ml Susp [Mycostatin Oral Susp] 500,000 unit PO QID #100 ml Losartan [Cozaar] 100 mg PO DAILY tab Tamsulosin [Flomax] 0.4 mg PO PC-SUPPER cap Nitroglycerin Sl Tabs [Nitrostat] 0.4 mg SUBLINGUAL Q5M PRN tab PRN Reason: Chest Pain Pantoprazole [Protonix] 40 mg PO AC-BRKFST tab Cholestyramine (with Sugar) [Questran Packet] 4 gm PO BID@1000,1800 packet Continue Aspirin EC [Ecotrin Low Dose] 81 mg PO DAILY Atorvastatin [Lipitor] 80 mg PO HS sitaGLIPtin PHOS/metFORMIN HCL [Janumet Xr 100-1,000 mg Tablet] 1 tab PO DAILY Dapagliflozin Propanediol [Farxiga] 5 mg PO DAILY Discontinued Baclofen [Lioresal] 10 mg PO HS #30 tab Metoprolol Tartrate [Lopressor] 50 mg PO BID HYDROcodone/APAP 10-325MG [[employer] [place] 10-325] 1 tab PO Q8H PRN PRN Reason: Pain Discharge Medication List Atorvastatin [Lipitor] 80 mg PO HS 09/01/20 [History] sitaGLIPtin PHOS/metFORMIN HCL [Janumet Xr 100-1,000 mg Tablet] 1 tab PO DAILY 02/23/21 [History] Dapagliflozin Propanediol [Farxiga] 5 mg PO DAILY 05/29/21 [History] Aspirin EC [Ecotrin Low Dose] 81 mg PO DAILY 09/11/21 [History] Amiodarone [Cordarone] 400 mg PO BID #60 tab 09/22/21 [Rx] Apixaban [Eliquis] 5 mg PO BID tab 09/22/21 [Rx] Cholestyramine (with Sugar) [Questran Packet] 4 gm PO BID@1000,1800 packet 09/22/21 [Rx] Folic Acid 1 mg PO DAILY tab 09/22/21 [Rx] Furosemide [Lasix] 40 mg PO DAILY tab 09/22/21 [Rx] Losartan [Cozaar] 100 mg PO DAILY tab 09/22/21 [Rx] Metoprolol Tartrate [Lopressor] 50 mg PO TID tab 09/22/21 [Rx] Nitroglycerin Sl Tabs [Nitrostat] 0.4 mg SUBLINGUAL Q5M PRN tab 09/22/21 [Rx] Nystatin 100,000 Unit/ml Susp [Mycostatin Oral Susp] 500,000 unit PO QID #100 ml 09/22/21 [Rx] Pantoprazole [Protonix] 40 mg PO AC-BRKFST tab 09/22/21 [Rx] Spironolactone [Aldactone] 25 mg PO DAILY tab 09/22/21 [Rx] Tamsulosin [Flomax] 0.4 mg PO PC-SUPPER cap 09/22/21 [Rx] Follow up Appointment(s)/Referral(s): Gerardo Gilbert MD [STAFF PHYSICIAN] - 1 Week German Astudillo MD [Primary Care Provider] - 1 Week (AT [facility]) Patient Instructions/Handouts: Amiodarone (By mouth), Apixaban (By mouth), A- fib (Atrial Fibrillation) (ED) Activity/Diet/Wound Care/Special Instructions: Amiodarone Taper Instructions: Take 400mg Amiodarone Twice a day from 09/20/2021-09/26/2021 Take 200mg Amiodarone Twice a day from 09/27/2021-10/11/2021 Take 200mg Amiodarone Daily starting 10/12/2021 Further changes and decrease in dose by your platen builder up outpatient. Discharge Disposition: TRANSFER TO SNF/ECF
[2021-09-27] MEDS ORDERED: AMIODARONE 200 MG TAB PO SCH (09:00)
--- NOTE | 2021-09-29 21:47 | P.PN ---
Subjective Progress Note Date: 09/22/21 Principal diagnosis: Fever/sepsis Patient is a 76-year-old male with multiple comorbidities was brought into the hospital after pending the patient did fell out of the bed and was found on the bedroom floor patient subsequently noticed to have a fever and he did went into respiratory distress requiring intubation patient subsequently has been successfully extubated on 09/16/2021. On today's evaluation that is 09/22/2021, the patient denies any fever or chills , the patient is breathing comfortably on nasal cannula oxygen, the patient denies chest pain and no significant cough, the patient denies abdominal pain and diarrhea has decreasing in frequency and stool is is forming up per the patient Objective - Vital Signs Vital signs: Vital Signs Temp 98.0 F 09/22/21 07:59 Pulse 65 09/22/21 11:28 Resp 16 09/22/21 11:28 BP 135/72 09/22/21 11:28 Pulse Ox 99 09/22/21 11:28 FiO2 40 09/16/21 09:00 Intake & Output 09/21/21 09/22/21 09/22/21 18:59 06:59 18:59 Intake Total 510 Output Total 200 450 Balance 310 -450 Weight 116.981 kg Intake: Oral 510 Blood Product 0 Output: Urine 200 450 Stool 0 Urine/Stool Mix 0 Emesis 0 Other: Voiding Method Indwelling Catheter Indwelling Catheter Indwelling Catheter # Voids 0 # Bowel Movements 1 ABP, PAP, CO, CI - Last Documented Arterial Blood Pressure 113/59 - Exam GENERAL DESCRIPTION: An elderly male lying in bed in no distress RESPIRATORY SYSTEM: Unlabored breathing , coarse breath sounds bilaterally HEART: S1 S2 regular rate and rhythm , ABDOMEN: Soft , no tenderness Sacral area did have a stage II ulcer with no slough tissue or significant surrounding redness EXTREMITIES: No edema feet - Labs CBC & Chem 7: 09/22/21 08:38 09/22/21 08:38 Labs: Abnormal Lab Results - Last 24 Hours (Table) 09/21/21 09/21/21 09/22/21 Range/Units 16:32 20:36 06:19 WBC (3.8-10.6) k/uL RBC (4.30-5.90) m/uL Hgb (13.0-17.5) gm/dL Hct (39.0-53.0) % RDW (11.5-15.5) % Plt Count (150-450) k/uL Lymphocytes # (1.0-4.8) k/uL Chloride (98-107) mmol/L Carbon Dioxide (22-30) mmol/L Glucose (74-99) mg/dL POC Glucose (mg/dL) 191 H 149 H 138 H (75-99) mg/dL Calcium (8.4-10.2) mg/dL 09/22/21 09/22/21 09/22/21 Range/Units 08:38 08:38 11:49 WBC 3.1 L (3.8-10.6) k/uL RBC 2.52 L (4.30-5.90) m/uL Hgb 7.8 L (13.0-17.5) gm/dL Hct 24.6 L (39.0-53.0) % RDW 18.5 H (11.5-15.5) % Plt Count 127 L (150-450) k/uL Lymphocytes # 0.5 L (1.0-4.8) k/uL Chloride 114 H (98-107) mmol/L Carbon Dioxide 18 L (22-30) mmol/L Glucose 135 H (74-99) mg/dL POC Glucose (mg/dL) 130 H (75-99) mg/dL Calcium 8.3 L (8.4-10.2) mg/dL Assessment and Plan (1) Sepsis Status: Acute Code(s): A41.9 - SEPSIS, UNSPECIFIED ORGANISM SNOMED Code(s): 06992168 Plan: 1patient presented to hospital with mental status changes and fever and this patient did have a fall patient did have initial work-up for the fever including a UA chest x-ray CT abdominal pelvis has been negative patient did have history of left knee septic arthritis however the knee do not have any significant swel ling or redness with minimal warmth with 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 West Nile IgM on CSF is pending as of 09/22/2021 3left lower lobe atelectasis and a question of pneumonia, cefepime has been discontinued and patient did have a normal CRP and pro calcitonin 4diarrhea with recent antibiotic exposure, however stool for C. diff came back negative, patient diarrhea has improved with Questran which will be continued as needed 5stage II pressure ulcer no cellulitis , local wound care with dry Aquacel silver dressing Time with Patient: Less than 30
== END 2021-09-22 15:46 | DRG 870 ==
LOC: EC 00:18 → 3SCARD 06:46 → 2SICU 16:40 → 3SCARD 09-19 17:35
PROVIDERS: ADMIT Internal Medicine; ATTEND Internal Medicine
PROC: 009U3ZX Drainage of Spinal Canal, Percutaneous Approach, Diagnostic (ICD-10-PCS; 2021-09-11)
PROC: 02HV33Z Insertion of Infusion Device into Superior Vena Cava, Percutaneous Approach (ICD-10-PCS; 2021-09-12)
PROC: 5A1955Z Respiratory Ventilation, Greater than 96 Consecutive Hours (ICD-10-PCS; 2021-09-12)
PROC: 0BH17EZ Insertion of Endotracheal Airway into Trachea, Via Natural or Artificial Opening (ICD-10-PCS; 2021-09-12)
PROC: 30233N1 Transfusion of Nonautologous Red Blood Cells into Peripheral Vein, Percutaneous Approach (ICD-10-PCS; principal; 2021-09-19)
DX: A41.9 Sepsis, unspecified organism (principal); G93.41 Metabolic encephalopathy; I21.4 Non-ST elevation (NSTEMI) myocardial infarction; J96.21 Acute and chronic respiratory failure with hypoxia; I63.9 Cerebral infarction, unspecified; E87.4 Mixed disorder of acid-base balance; B37.0 Candidal stomatitis; I48.3 Typical atrial flutter; R47.01 Aphasia; G81.94 Hemiplegia, unspecified affecting left nondominant side; K31.1 Adult hypertrophic pyloric stenosis; E11.42 Type 2 diabetes mellitus with diabetic polyneuropathy; I25.10 Atherosclerotic heart disease of native coronary artery without angina pectoris; E11.51 Type 2 diabetes mellitus with diabetic peripheral angiopathy without gangrene; E66.9 Obesity, unspecified; Z20.822 Contact with and (suspected) exposure to COVID-19; E78.00 Pure hypercholesterolemia, unspecified; E78.5 Hyperlipidemia, unspecified; I48.0 Paroxysmal atrial fibrillation; I25.5 Ischemic cardiomyopathy; F17.210 Nicotine dependence, cigarettes, uncomplicated; I11.9 Hypertensive heart disease without heart failure; R19.7 Diarrhea, unspecified; D64.9 Anemia, unspecified; R33.9 Retention of urine, unspecified; M47.812 Spondylosis without myelopathy or radiculopathy, cervical region; R29.6 Repeated falls; M10.9 Gout, unspecified; M19.90 Unspecified osteoarthritis, unspecified site; I65.23 Occlusion and stenosis of bilateral carotid arteries; N52.9 Male erectile dysfunction, unspecified; M47.816 Spondylosis without myelopathy or radiculopathy, lumbar region; Z96.641 Presence of right artificial hip joint; Z96.652 Presence of left artificial knee joint; L89.152 Pressure ulcer of sacral region, stage 2; W06.XXXA Fall from bed, initial encounter; E87.6 Hypokalemia; Z68.35 Body mass index [BMI] 35.0-35.9, adult; Z95.5 Presence of coronary angioplasty implant and graft; Z85.46 Personal history of malignant neoplasm of prostate; Z92.3 Personal history of irradiation; I25.2 Old myocardial infarction; Y92.003 Bedroom of unspecified non-institutional (private) residence as the place of occurrence of the external cause; Z79.82 Long term (current) use of aspirin; Z79.899 Other long term (current) drug therapy; Z79.01 Long term (current) use of anticoagulants; Z86.19 Personal history of other infectious and parasitic diseases; Z79.84 Long term (current) use of oral hypoglycemic drugs; Z15.89 Genetic susceptibility to other disease; Z98.1 Arthrodesis status; Z82.49 Family history of ischemic heart disease and other diseases of the circulatory system
CPT/HCPCS: 36415; 36600; 70450; 70496; 70498; 70551; 71045; 72040; 72170; 74177; 80048; 80053; 80061; 80202; 80306; 80320; 81001; 82140; 82272; 82550; 82553; 82805; 82945; 83605; 83721; 83735; 84132; 84145; 84157; 84443; 84484; 85025; 85027; 85610; 85730; 86060; 86140; 86780; 86788; 86850; 86900; 86901; 86920; 87040; 87070; 87081; 87205; 87252; 87324; 87430; 87496; 87498; 87502; 87529; 87635; 87798; 89050; 93005; 93306; 93880; 94002; 94003; 95822; 96361; 96365; 96366; 96367; 96372; 96375; 96376; 99291

== ENCOUNTER 2022-01-24 09:49 | Emergency (ER) | payer MEDICARE, BC ==
[2022-01-24 10:00] VITALS: BP 96/33; PULSE 64; RESP 16; TEMP 98
--- NOTE | 2022-01-24 10:23 | ED ---
Skin/Abscess/FB HPI - General Chief complaint: Skin/Abscess/Foreign Body Stated complaint: lt arm lac Time Seen by Provider: 01/24/22 10:00 Source: patient, RN notes reviewed Mode of arrival: ambulatory Limitations: no limitations - History of Present Illness Initial comments: Patient is a pleasant 76 year old male who presents to the ER this m orning at the encouragement of his friend when the dressing to his left forearm he applied the night before began to saturate. He reports assisting a friend who was sitting in a wheelchair and intoxicated that was sliding to the floor. He states that his presents wheelchair flipped over and hit him in the arm causing significant skin tears and removal of a piece of skin to his left forearm. He immediately applied pressure and a dressing but reports that the area continues to bleed occasionally. He is on Eliquis and a baby aspirin to treat his atrial fibrillation and coronary artery disease. He states that he has not taken his medication yet this morning but typically takes his medications as prescribed. In addition to his CAD and A. fib history he has a past medical history significant for diabetes, GERD, hyperlipidemia, hypertension, osteoarthritis and prostate cancer. - Related Data Home Medications Medication Instructions Recorded Confirmed Atorvastatin [Lipitor] 80 mg PO HS 09/01/20 09/11/21 sitaGLIPtin PHOS/metFORMIN HCL 1 tab PO DAILY 02/23/21 09/11/21 [Janumet Xr 100-1,000 mg Tablet] Dapagliflozin Propanediol [Farxiga] 5 mg PO DAILY 05/29/21 09/11/21 Aspirin EC [Ecotrin Low Dose] 81 mg PO DAILY 09/11/21 09/11/21 Previous Rx's Medication Instructions Recorded Amiodarone [Cordarone] 400 mg PO BID #60 tab 09/22/21 Apixaban [Eliquis] 5 mg PO BID tab 09/22/21 Cholestyramine (with Sugar) 4 gm PO BID@1000,1800 packet 09/22/21 [Questran Packet] Folic Acid 1 mg PO DAILY tab 09/22/21 Furosemide [Lasix] 40 mg PO DAILY tab 09/22/21 Losartan [Cozaar] 100 mg PO DAILY tab 09/22/21 Metoprolol Tartrate [Lopressor] 50 mg PO TID tab 09/22/21 Nitroglycerin Sl Tabs [Nitrostat] 0.4 mg SUBLINGUAL Q5M PRN tab 09/22/21 Nystatin 100,000 Unit/ml Susp 500,000 unit PO QID #100 ml 09/22/21 [Mycostatin Oral Susp] Pantoprazole [Protonix] 40 mg PO AC-BRKFST tab 09/22/21 Spironolactone [Aldactone] 25 mg PO DAILY tab 09/22/21 Tamsulosin [Flomax] 0.4 mg PO PC-SUPPER cap 09/22/21 Allergies Allergy/AdvReac Type Severity Reaction Status Date / Time No Known Allergies Allergy Verified 01/24/22 09:57 Review of Systems ROS Statement: Those systems with pertinent positive or pertinent negative responses have been documented in the HPI. ROS Other: All systems not noted in ROS Statement are negative. Past Medical History Past Medical History: Atrial Fibrillation, Coronary Artery Disease (CAD), Cancer, Chest Pain / Angina, Diabetes Mellitus, GERD/Reflux, Hyperlipidemia, Hypertension, Osteoarthritis (OA), Prostate Disorder Additional Past Medical History / Comment(s): 5 Herniated discs in neck causing headaches & numbness in arm and right lower back and pain and right leg pain. Hx 4 fx ribs, current Prostate Cancer- last radiation tx Mar 25 had total of 44 tx. occ constipation, Last Myocardial Infarction Date:: UNKOWN History of Any Multi-Drug Resistant Organisms: VRE Date of last positivie culture/infection: 09/18/20 MDRO Source:: Wound Past Surgical History: Adenoidectomy, Heart Catheterization, Heart Catheterization With Stent, Joint Replacement, Orthopedic Surgery, Tonsillectomy Additional Past Surgical History / Comment(s): PROSTATE BX., LT. KNEE ARTHROSCOPY X 2, CERVICAL FUSIONS, COLONOSCOPY, ÁNGEL. CATARTACTS.Pain Procedures , rt radio frequency procedures. , total 3 heart stents, hemorrhoidectomy,heart cath August 2017-lt knee replacement. Stent replacement \2020 Past Anesthesia/Blood Transfusion Reactions: No Reported Reaction Additional Past Anesthesia/Blood Transfusion Reaction / Comment(s): doesn't like enclosed tight spaces Date of Last Stent Placement:: 04/24/17 Past Psychological History: No Psychological Hx Reported Smoking Status: Former smoker Past Alcohol Use History: None Reported Past Drug Use History: None Reported - Past Family History Father Additional Family Medical History / Comment(s): Father at age 49 from coronary artery disease. Brother(s) Additional Family Medical History / Comment(s): Patient has one brother with history of smoking and no other major medical problems. Patient does not have any sisters. Daughter(s) Additional Family Medical History / Comment(s): Patient has one daughter with history of muscular dystrophy and of pneumonia. Son(s) Family Medical History: No Reported History Additional Family Medical History / Comment(s): Patient has one son with no major medical problems. Mother Family Medical History: Cancer Additional Family Medical History / Comment(s): Mother at age 81 from uterine cancer with metastatic disease. General Exam Limitations: no limitations General appearance: alert, in no apparent distress Head exam: Present: atraumatic, normocephalic, normal inspection Eye exam: Present: normal appearance, PERRL, EOMI. Absent: scleral icterus, conjunctival injection, periorbital swelling ENT exam: Present: normal exam, mucous membranes moist Neck exam: Present: normal inspection, full ROM Respiratory exam: Absent: respiratory distress, accessory muscle use Extremities exam: Absent: full ROM, pedal edema, joint swelling Left Forearm Wrist exam: Present: tenderness, abrasion (Multiple skin tears and large area of skin avulsion as noted below) Back exam: Present: normal inspection Neurological exam: Present: alert, oriented X3, CN II-XII intact Psychiatric exam: Present: normal affect, normal mood Skin exam: Present: other (Multiple skin tears to left forearm with 1 large area of skin avulsion to forearm approximately 4 x 3.5 cm ) Course Vital Signs 01/24/22 09:57 Temperature 98 F Pulse Rate 64 Respiratory 16 Rate Blood Pressure 96/33 O2 Sat by Pulse 98 Oximetry Medical Decision Making - Medical Decision Making 76-year-old male presenting to the emergency room with the patient's multiple skin tears to his left forearm with some areas of moderate skin avulsion. No indication for diagnostic imaging or laboratory studies. Previous dressing removed and wound cleansed. Small amounts of skin folds able to be rehydrated and placed on skin tears otherwise a full skin with Vaseline gauze applied. 4 x 4's and Kerlix applied over Vaseline gauze. No evidence of breakthrough. Bleeding after dressing applied. Will discharge home with continuation of current dressing for the next 24 hours and then may replace dressing with similar dressing including Vaseline gauze to be supplied, 4 x 4 and Kerlix. No indication for antibiotic therapy. Case discussed with Dr. Robert Disposition Clinical Impression: Skin tear of left forearm without complication, Avulsion of skin of forearm Disposition: HOME SELF-CARE Instructions (If sedation given, give patient instructions): Skin Tear (ED) Additional Instructions: Please keep today's dressing on for 24 hours then may change dressing once every 24 hours as needed utilizing Vaseline gauze, 4 x 4 and Kerlix. Please return to the Emergency Department if symptoms worsen or any other concerns. Is patient prescribed a controlled substance at d/c from ED?: No Referrals: German Astudillo MD [Primary Care Provider] - 1-2 days Time of Disposition: 10:55
== END 2022-01-24 10:59 | disposition home or self-care (01) ==
LOC: EC 09:49
DX: S51.812A Laceration without foreign body of left forearm, initial encounter (principal); K21.9 Gastro-esophageal reflux disease without esophagitis; I10 Essential (primary) hypertension; E11.9 Type 2 diabetes mellitus without complications; E78.5 Hyperlipidemia, unspecified; Z85.46 Personal history of malignant neoplasm of prostate; Z79.01 Long term (current) use of anticoagulants; Z95.5 Presence of coronary angioplasty implant and graft; Z79.82 Long term (current) use of aspirin; Z79.84 Long term (current) use of oral hypoglycemic drugs; W05.0XXA Fall from non-moving wheelchair, initial encounter
CPT/HCPCS: 99283

== ENCOUNTER 2022-08-01 18:21 | Emergency (ER) | payer MEDICARE, BC ==
[2022-08-01 18:37] VITALS: RESP 18; TEMP 98.7
--- NOTE | 2022-08-01 19:35 | XR ---
EXAMINATION TYPE: XR chest 2V DATE OF EXAM: 08/01/2022 7:24 PM COMPARISON: Chest x-ray 06/11/2022 TECHNIQUE: XR chest 2V . CLINICAL INDICATION:Male, 77 years old with history of difficulty breathing; FINDINGS: Lungs/Pleura: There is no evidence of pleural effusion, focal consolidation, or pneumothorax. Pulmonary vascularity: Unremarkable. Heart/mediastinum: Cardiomediastinal silhouette is unremarkable. Musculoskeletal: Degenerative changes of the shoulder and acromioclavicular joints. Degenerative luis ges of the thoracic spine. IMPRESSION: No acute cardiopulmonary disease/process.
[2022-08-01 19:36] LABS: Basophils % (A) 0 %; Eosinophils % (A) 1 %; HCT 39.8 % (39.0-53.0); HGB 13.5 gm/dL (13.0-17.5); Lymphocytes # (A) 0.6 k/uL (1.0-4.8); Lymphocytes % (A) 20 %; MCH 32.3 pg (25.0-35.0); MCHC 33.9 g/dL (31.0-37.0); MCV 95.2 fL (80.0-100.0); Mean Platelet Volume 8.3; Monocytes # (A) 0.3 k/uL (0-1.0); Monocytes % (A) 10 %; Neutrophils # (A) 1.9 k/uL (1.3-7.7); Neutrophils % (A) 65 %; Platelet Count 138 k/uL (150-450); RBC 4.18 m/uL (4.30-5.90); RDW 13.1 % (11.5-15.5); WBC 2.8 k/uL (3.8-10.6)
[2022-08-01 19:47] LABS: Albumin 4.3 g/dL (3.5-5.0); Calcium 8.6 mg/dL (8.4-10.2); Magnesium 1.6 mg/dL (1.6-2.3); Potassium 4.8 mmol/L (3.5-5.1); Total Bilirubin 1.3 mg/dL (0.2-1.3); Total Protein 6.7 g/dL (6.3-8.2)
[2022-08-01 19:56] LABS: Partial Thromboplastin Time 22.9 sec (22.0-30.0); Prothrombin Time 10.9 sec (9.0-12.0)
[2022-08-01 20:04] VITALS: BP 134/71; PULSE 76
--- NOTE | 2022-08-01 20:40 | ED ---
General Adult HPI - General Chief complaint: Recheck/Abnormal Lab/Rx Stated complaint: abnormal ekg Time Seen by Provider: 08/01/22 18:26 Source: patient, RN notes reviewed, old records reviewed Mode of arrival: ambulatory Limitations: no limitations - History of Present Illness Initial comments: Patient is a 77-year-old male who was sent in by urgent care for evaluation over concern for some chronic dyspnea. Urgent care was concerned regarding his EKG as it showed sinus arrhythmia. Patient does have a history remarkable for A. fib on eliquis, CAD, diabetes, hypertension, prior strokes with no residual deficits who presents emergency Department for the dyspnea. States is somewhat chronic. [facility] over concern for abnormal EKG. Has had some nasal congestion as well as a nonproductive cough for a few days. Also has noticed increased dyspnea on exertion for the last few days but also states he has noticed it progressively getting worse for weeks. Denies any lower extremity edema. Denies any paroxysmal nocturnal dyspnea. Denies any worsening orthopnea. Denies any chest pain. Denies any abdominal distention, nausea, vomiting, diarrhea. No known sick contacts. Presents for further evaluation at this time. - Related Data Home Medications Medication Instructions Recorded Confirmed Atorvastatin [Lipitor] 80 mg PO HS 09/01/20 09/11/21 sitaGLIPtin PHOS/metFORMIN HCL 1 tab PO DAILY 02/23/21 09/11/21 [Janumet Xr 100-1,000 mg Tablet] Dapagliflozin Propanediol [Farxiga] 5 mg PO DAILY 05/29/21 09/11/21 Aspirin EC [Ecotrin Low Dose] 81 mg PO DAILY 09/11/21 09/11/21 Previous Rx's Medication Instructions Recorded Amiodarone [Cordarone] 400 mg PO BID #60 tab 09/22/21 Apixaban [Eliquis] 5 mg PO BID tab 09/22/21 Cholestyramine (with Sugar) 4 gm PO BID@1000,1800 packet 09/22/21 [Questran Packet] Folic Acid 1 mg PO DAILY tab 09/22/21 Furosemide [Lasix] 40 mg PO DAILY tab 09/22/21 Losartan [Cozaar] 100 mg PO DAILY tab 09/22/21 Metoprolol Tartrate [Lopressor] 50 mg PO TID tab 09/22/21 Nitroglycerin Sl Tabs [Nitrostat] 0.4 mg SUBLINGUAL Q5M PRN tab 09/22/21 Nystatin 100,000 Unit/ml Susp 500,000 unit PO QID #100 ml 09/22/21 [Mycostatin Oral Susp] Pantoprazole [Protonix] 40 mg PO AC-BRKFST tab 09/22/21 Spironolactone [Aldactone] 25 mg PO DAILY tab 09/22/21 Tamsulosin [Flomax] 0.4 mg PO PC-SUPPER cap 09/22/21 Albuterol Inhaler [Ventolin Hfa 2 puff INHALATION Q4HR PRN #8 gm 06/11/22 Inhaler] levoFLOXacin 500 mg PO DAILY #7 tab 06/11/22 Allergies Allergy/AdvReac Type Severity Reaction Status Date / Time No Known Allergies Allergy Verified 08/01/22 18:25 Review of Systems ROS Statement: Those systems with pertinent positive or pertinent negative responses have been documented in the HPI. Review of Systems: CONST: Denies fever EYES: Denies blurry vision ENT: Denies nasal congestion C/V: Denies Chest pain RESP: Endorses exertional dyspnea GI: Denies abdominal pain : Denies dysuria SKIN: Denies rash. MSK: Denies joint pain. NEURO: Denies headache ROS Other: All systems not noted in ROS Statement are negative. Past Medical History Past Medical History: Atrial Fibrillation, Coronary Artery Disease (CAD), C ancer, Chest Pain / Angina, Diabetes Mellitus, GERD/Reflux, Hyperlipidemia, Hypertension, Osteoarthritis (OA), Prostate Disorder Additional Past Medical History / Comment(s): 5 Herniated discs in neck causing headaches & numbness in arm and right lower back and pain and right leg pain. Hx 4 fx ribs, current Prostate Cancer- last radiation tx Mar 25 had total of 44 tx. occ constipation, Last Myocardial Infarction Date:: UNKOWN History of Any Multi-Drug Resistant Organisms: VRE Date of last positivie culture/infection: 09/18/20 MDRO Source:: Wound Past Surgical History: Adenoidectomy, Heart Catheterization, Heart Catheterization With Stent, Joint Replacement, Orthopedic Surgery, Tonsillectomy Additional Past Surgical History / Comment(s): PROSTATE BX., LT. KNEE ARTHROSCOPY X 2, CERVICAL FUSIONS, COLONOSCOPY, ÁNGEL. CATARTACTS.Pain Procedures , rt radio frequency procedures. , total 3 heart stents, hemorrhoidectomy,heart cath August 2017-lt knee replacement. Stent replacement Past Anesthesia/Blood Transfusion Reactions: No Reported Reaction Additional Past Anesthesia/Blood Transfusion Reaction / Comment(s): doesn't like enclosed tight spaces Date of Last Stent Placement:: 04/24/17 Past Psychological History: No Psychological Hx Reported Smoking Status: Former smoker Past Alcohol Use History: None Reported Past Drug Use History: None Reported - Past Family History Father Additional Family Medical History / Comment(s): Father at age 49 from coronary artery disease. Brother(s) Additional Family Medical History / Comment(s): Patient has one brother with history of smoking and no other major medical problems. Patient does not have any sisters. Daughter(s) Additional Family Medical History / Comment(s): Patient has one daughter with history of muscular dystrophy and of pneumonia. Son(s) Family Medical History: No Reported History Additional Family Medical History / Comment(s): Patient has one son with no major medical problems. Mother Family Medical History: Cancer Additional Family Medical History / Comment(s): Mother at age 81 from uterine cancer with metastatic disease. General Exam - General Exam Comments Initial Comments: General: Appears in no acute distress. HEAD: Normal with no signs of head trauma. EYES: PERRLA, EOMI, conjunctiva normal, no discharge. ENT: Hearing grossly intact, normal oropharynx. RESPIRATORY: Clear breath sounds bilaterally. No wheezes, rales, or rhonchi. No hypoxia. No increased work of breathing. C/V: Regular rate and rhythm. S1 and S2 auscultated, no significant edema, peripheral pulses 2+ and intact throughout ABD: Abd is soft, nontender, nondistended EXT: Normal range of motion, no obvious deformity SKIN: No rashes or lesions observed on exposed skin. NEURO: Alert and oriented 4. No focal sensory strength deficits. Limitations: no limitations Course Vital Signs 08/01/22 08/01/22 08/01/22 18:23 18:35 20:02 Temperature 97.6 F 98.7 F Pulse Rate 77 72 76 Respiratory 22 18 18 Rate Blood Pressure 168/81 144/75 134/71 O2 Sat by Pulse 97 96 97 Oximetry Medical Decision Making - Medical Decision Making Was pt. sent in by a medical professional or institution (Dr., PA, PRINT LINE OPERATOR, urgent care, hospital, or longterm...) When possible be specific @ -No Did you speak to anyone other than the patient for history (EMS, parent, family, police, friend...)? What history was obtained from this source @ -No Did you review nursing and triage notes (agree or disagree)? Why? @ -I reviewed and agree with nursing and triage notes Were old charts reviewed (outside hosp., previous admission, EMS record, old EKG, old radiological studies, urgent care reports/EKG's, longterm records)? Report findings @ -Old labs as well as EKG compared with visit from May 2022 Differential Diagnosis (chest pain, altered mental status, abdominal pain women, abdominal pain men, vaginal bleeding, weakness, fever, dyspnea, syncope, headache, dizziness, GI bleed, back pain, seizure, CVA, palpatations, mental health, musculoskeletal)? @ -Differential Dyspnea: Coronary syndrome, arrhythmia, tamponade, asthma, COPD, pulmonary embolism, pneumonia, pneumothorax, pulmonary effusion, anaphylaxis, diabetic ketoacidosis, flailed chest, pulmonary contusion, diaphragmatic rupture, anemia, neuromuscular, this is not meant to be an all-inclusive list. EKG interpreted by me (3pts min.). @ -As above X-rays interpreted by me (1pt min.). @ -Chest x-ray reveals no evidence of obvious acute cardio pulmonary process. CT interpreted by me (1pt min.). @ -None done U/S interpreted by me (1pt. min.). @ -None done What testing was considered but not performed or refused? (CT, X-rays, U/S, labs)? Why? @ -None What meds were considered but not given or refused? Why? @ -None Did you discuss the management of the patient with other professionals (professionals i.e. TANA Murillo, PRINT LINE OPERATOR, lab, RT, psych nurse, 7th grade social studies teacher, upholstery auto trimmer, teacher, aoc director combat operations officer, housing case manager)? Give summary @ -No Was smoking cessation discussed for >3mins.? @ -No Was critical care preformed (if so, how long)? @ -No Were there social determinants of health that impacted care today? How? (Homelessness, low income, unemployed, alcoholism, drug addiction, transportation, low edu. Level, literacy, decrease access to med. care, senior living, rehab)? @ -No Was there de-escalation of care discussed even if they declined (Discuss DNR or withdrawal of care, Hospice)? DNR status @ -No What co-morbidities impacted this encounter? (DM, HTN, Smoking, COPD, CAD, Cancer, CVA, ARF, Chemo, Hep., AIDS, mental health diagnosis, sleep apnea, morbid obesity)? @ -None Was patient admitted / discharged? Hospital course, mention meds given and route, prescriptions, significant lab abnormalities, going to OR and other pertinent info. @ -Based on the patient's presentation and physical exam, I'm concerned for possible cardiac primary etiology for his current symptoms. Low suspicion for heart failure but we will work him up for heart failure as well as CAD. Patient was in agreement this plan. He is compliant with his Eliquis for PE, especially considering he is not hypoxic and not tachycardic. We will also obtain infectious labs. He was in agreement with this plan. He has no other acute length this time. EKG shows no signs of acute ischemia. Chest x-ray shows no obvious cardio pulmonary process. Labs are unremarkable, including just a slight elevation in his creatinine to 1.28. Troponin is undetectable. BNP is within acceptable limits. Covid, flu, RSV negative. Ambulatory pulse ox is within normal limits. No hypoxia. On reevaluation, patient remains unchanged. Remains asymptomatic. vital signs remain within acceptable limits. I did offer him admission but he does have follow-up with his PCP in 2 days on Wednesday and this Wednesday night. He prefers to follow-up there. I believe this is reasonable. Strict return precautions were discussed. I instructed the patient to follow up with their PCP in the next 1-3 days. I e xplained that the patient should return to the emergency department if they experience any worsening symptoms. Strict return precautions were discussed with the patient. The patient expressed understanding of these instructions. I answered all questions that the patient had. The patient was discharged home in good condition with their prescriptions and follow up information. Undiagnosed new problem with uncertain prognosis? @ -No Drug Therapy requiring intensive monitoring for toxicity (Heparin, Nitro, Insulin, Cardizem)? @ -No Were any procedures done? @ -No Diagnosis/symptom? @ -Dyspnea of unknown etiology, Acute, or Chronic, or Acute on Chronic? @ -Chronic Uncomplicated (without systemic symptoms) or Complicated (systemic symptoms)? @ -Uncomplicated Side effects of treatment? @ -No Exacerbation, Progression, or Severe Exacerbation? @ -No Poses a threat to life or bodily function? How? (Chest pain, USA, ID, pneumonia, PE, COPD, DKA, ARF, appy, cholecystitis, CVA, Diverticulitis, Homicidal, Suicidal, threat to staff... and all critical care pts) @ -No - Lab Data Result diagrams: 08/01/22 19:09 08/01/22 19:09 Lab Results 08/01/22 08/01/22 08/01/22 Range/Units 18:49 19:09 19:09 WBC 2.8 L (3.8-10.6) k/uL RBC 4.18 L (4.30-5.90) m/uL Hgb 13.5 (13.0-17.5) gm/dL Hct 39.8 (39.0-53.0) % MCV 95.2 (80.0-100.0) fL MCH 32.3 (25.0-35.0) pg MCHC 33.9 (31.0-37.0) g/dL RDW 13.1 (11.5-15.5) % Plt Count 138 L (150-450) k/uL MPV 8.3 Neutrophils % 65 % Lymphocytes % 20 % Monocytes % 10 % Eosinophils % 1 % Basophils % 0 % Neutrophils # 1.9 (1.3-7.7) k/uL Lymphocytes # 0.6 L (1.0-4.8) k/uL Monocytes # 0.3 (0-1.0) k/uL Eosinophils # 0.0 (0-0.7) k/uL Basophils # 0.0 (0-0.2) k/uL PT 10.9 (9.0-12.0) sec INR 1.0 (<1.2) APTT 22.9 (22.0-30.0) sec Sodium (137-145) mmol/L Potassium (3.5-5.1) mmol/L Chloride (98-107) mmol/L Carbon Dioxide (22-30) mmol/L Anion Gap mmol/L BUN (9-20) mg/dL Creatinine (0.66-1.25) mg/dL Est GFR (CKD-EPI)AfAm (>60 ml/min/1.73 sqM) Est GFR (CKD-EPI)NonAf (>60 ml/min/1.73 sqM) Glucose (74-99) mg/dL Calcium (8.4-10.2) mg/dL Magnesium (1.6-2.3) mg/dL Total Bilirubin (0.2-1.3) mg/dL AST (17-59) U/L ALT (4-49) U/L Alkaline Phosphatase (38-126) U/L Troponin I (0.000-0.034) ng/mL NT-Pro-B Natriuret Pep pg/mL Total Protein (6.3-8.2) g/dL Albumin (3.5-5.0) g/dL Influenza Type A (PCR) Not Detected (Not Detectd) Influenza Type B (PCR) Not Detected (Not Detectd) RSV (PCR) Not Detected (Not Detectd) SARS-CoV-2 (PCR) Not Detected (Not Detectd) 08/01/22 08/01/22 08/01/22 Range/Units 19:09 19:09 19:09 WBC (3.8-10.6) k/uL RBC (4.30-5.90) m/uL Hgb (13.0-17.5) gm/dL Hct (39.0-53.0) % MCV (80.0-100.0) fL MCH (25.0-35.0) pg MCHC (31.0-37.0) g/dL RDW (11.5-15.5) % Plt Count (150-450) k/uL MPV Neutrophils % % Lymphocytes % % Monocytes % % Eosinophils % % Basophils % % Neutrophils # (1.3-7.7) k/uL Lymphocytes # (1.0-4.8) k/uL Monocytes # (0-1.0) k/uL Eosinophils # (0-0.7) k/uL Basophils # (0-0.2) k/uL PT (9.0-12.0) sec INR (<1.2) APTT (22.0-30.0) sec Sodium 137 (137-145) mmol/L Potassium 4.8 (3.5-5.1) mmol/L Chloride 107 (98-107) mmol/L Carbon Dioxide 22 (22-30) mmol/L Anion Gap 8 mmol/L BUN 23 H (9-20) mg/dL Creatinine 1.28 H (0.66-1.25) mg/dL Est GFR (CKD-EPI)AfAm 62 (>60 ml/min/1.73 sqM) Est GFR (CKD-EPI)NonAf 53 (>60 ml/min/1.73 sqM) Glucose 208 H (74-99) mg/dL Calcium 8.6 (8.4-10.2) mg/dL Magnesium 1.6 (1.6-2.3) mg/dL Total Bilirubin 1.3 (0.2-1.3) mg/dL AST 47 (17-59) U/L ALT 58 H (4-49) U/L Alkaline Phosphatase 34 L (38-126) U/L Troponin I <0.012 (0.000-0.034) ng/mL NT-Pro-B Natriuret Pep 333 pg/mL Total Protein 6.7 (6.3-8.2) g/dL Albumin 4.3 (3.5-5.0) g/dL Influenza Type A (PCR) (Not Detectd) Influenza Type B (PCR) (Not Detectd) RSV (PCR) (Not Detectd) SARS-CoV-2 (PCR) (Not Detectd) - EKG Data -: EKG Interpreted by Me EKG Comments: 12-lead Electrocardiogram Interpretation Note EKG was reviewed and interpreted by myself. 12-lead ECG performed at 1829 is interpreted by me as revealing normal sinus rhythm at a rate of 72 beats per minute. [place] is normal. UT interval is 217 ms and prolonged. First-degree AV block. QRS duration 92 ms, QTc 426 ms.. There were no ST or T wave abnormalities to suggest myocardial ischemia or injury. R wave progression across the precordium was satisfactory. By my interpretation this EKG is non- diagnostic for acute ischemia. When compared with EKG from May 2022, no significant change. Disposition Clinical Impression: Dyspnea Disposition: HOME SELF-CARE Condition: Good Instructions (If sedation given, give patient instructions): Dyspnea (ED) Is patient prescribed a controlled substance at d/c from ED?: No Referrals: German Astudillo MD [Primary Care Provider] - 1-2 days Time of Disposition: 20:35
== END 2022-08-01 21:09 | disposition home or self-care (01) ==
LOC: EC 18:21
DX: R06.00 Dyspnea, unspecified (principal); E11.9 Type 2 diabetes mellitus without complications; E78.5 Hyperlipidemia, unspecified; I10 Essential (primary) hypertension; I25.10 Atherosclerotic heart disease of native coronary artery without angina pectoris; I25.2 Old myocardial infarction; I48.91 Unspecified atrial fibrillation; M19.90 Unspecified osteoarthritis, unspecified site; Z79.82 Long term (current) use of aspirin; Z79.84 Long term (current) use of oral hypoglycemic drugs; Z79.899 Other long term (current) drug therapy; Z20.822 Contact with and (suspected) exposure to COVID-19; Z87.891 Personal history of nicotine dependence
CPT/HCPCS: 36415; 71046; 80053; 83735; 83880; 84484; 85025; 85610; 85730; 87636; 93005; 99284

== ENCOUNTER → 2022-09-15 | Outpatient (CLI) | payer MEDICARE, BC ==
--- NOTE | 2022-09-15 09:00 | CT ---
EXAMINATION TYPE: CT sacrum wo con DATE OF EXAM: 09/15/2022 COMPARISON: None HISTORY: Sacral pain CT DLP: 582 mGycm Automated exposure control for dose reduction was used. Unenhanced CT of the sacrum was performed wit h bone and soft tissue window settings submitted for evaluation. Images are reviewed in the axial, sa gittal and coronal planes. FINDINGS: I do not see evidence for sacral fracture. Sacral alae appear symmetric. Sacroiliac joints are also s ymmetric without evidence for abnormal widening or sclerosis. Bone island noted within the right kamla c wing. The vacuum disc changes at L4-5 and L5-S1. Coccygeal segments are intact. No evidence of pres acral mass. Right hip prosthesis with streak limiting artifact. IMPRESSION: NO SIGNIFICANT ABNORMALITY APPRECIATED.
== END | disposition home or self-care (01) ==
LOC: RADCTMAIN 07:25
PROVIDERS: ATTEND Internal Medicine
DX: M53.3 Sacrococcygeal disorders, not elsewhere classified (principal)
CPT/HCPCS: 72192

== ENCOUNTER 2023-06-05 10:19 | Emergency (ER) | payer MEDICARE, BC ==
[2023-06-05 10:33] VITALS: RESP 18
--- NOTE | 2023-06-05 11:35 | ED ---
General Adult HPI - General Chief complaint: Extremity Problem,Nontraumatic Stated complaint: Leg/foot swelling Time Seen by Provider: 06/05/23 11:07 Source: patient, RN notes reviewed Mode of arrival: ambulatory Limitations: no limitations - History of Present Illness Initial comments: 77-year-old male presents to the emergency department for evaluation of right lower extremity pain, redness, swelling. He states that this has been going on for 2 to 3 days. He reports that it is painful to walk. He denies recent fever, chills, nausea, vomiting. Denies chest pain, shortness of breath. He denies any open wounds to the foot. He is on blood thinners. - Related Data Home Medications Medication Instructions Recorded Confirmed Atorvastatin [Lipitor] 80 mg PO HS 09/01/20 09/11/21 sitaGLIPtin PHOS/metFORMIN HCL 1 tab PO DAILY 02/23/21 09/11/21 [Janumet Xr 100-1,000 mg Tablet] Dapagliflozin Propanediol [Farxiga] 5 mg PO DAILY 05/29/21 09/11/21 Aspirin EC [Ecotrin Low Dose] 81 mg PO DAILY 09/11/21 09/11/21 Previous Rx's Medication Instructions Recorded Amiodarone [Cordarone] 400 mg PO BID #60 tab 09/22/21 Apixaban [Eliquis] 5 mg PO BID tab 09/22/21 Cholestyramine (with Sugar) 4 gm PO BID@1000,1800 packet 09/22/21 [Questran Packet] Folic Acid 1 mg PO DAILY tab 09/22/21 Furosemide [Lasix] 40 mg PO DAILY tab 09/22/21 Losartan [Cozaar] 100 mg PO DAILY tab 09/22/21 Metoprolol Tartrate [Lopressor] 50 mg PO TID tab 09/22/21 Nitroglycerin Sl Tabs [Nitrostat] 0.4 mg SUBLINGUAL Q5M PRN tab 09/22/21 Nystatin 100,000 Unit/ml Susp 500,000 unit PO QID #100 ml 09/22/21 [Mycostatin Oral Susp] Pantoprazole [Protonix] 40 mg PO AC-BRKFST tab 09/22/21 Spironolactone [Aldactone] 25 mg PO DAILY tab 09/22/21 Tamsulosin [Flomax] 0.4 mg PO PC-SUPPER cap 09/22/21 Albuterol Inhaler [Ventolin Hfa 2 puff INHALATION Q4HR PRN #8 gm 06/11/22 Inhaler] levoFLOXacin 500 mg PO DAILY #7 tab 06/11/22 Cephalexin [Keflex] 500 mg PO Q6HR #40 cap 06/05/23 Sulfamethox-Tmp 800-160Mg [Bactrim 1 each PO Q12HR #20 tab 06/05/23 Ds] Allergies Allergy/AdvReac Type Severity Reaction Status Date / Time No Known Allergies Allergy Verified 06/10/23 19:45 Review of Systems ROS Statement: Those systems with pertinent positive or pertinent negative responses have been documented in the HPI. ROS Other: All systems not noted in ROS Statement are negative. Past Medical History Past Medical History: Atrial Fibrillation, Coronary Artery Disease (CAD), Cancer, Chest Pain / Angina, Diabetes Mellitus, GERD/Reflux, Hyperlipidemia, Hypertension, Osteoarthritis (OA), Prostate Disorder Additional Past Medical History / Comment(s): 5 Herniated discs in neck causing headaches & numbness in arm and right lower back and pain and right leg pain. Hx 4 fx ribs, current Prostate Cancer- last radiation tx Mar 25 had total of 44 tx. occ constipation, Last Myocardial Infarction Date:: UNKOWN History of Any Multi-Drug Resistant Organisms: VRE Date of last positivie culture/infection: 09/18/20 MDRO Source:: Wound Past Surgical History: Adenoidectomy, Heart Catheterization, Heart Catheterization With Stent, Joint Replacement, Orthopedic Surgery, Tonsillectomy Additional Past Surgical History / Comment(s): PROSTATE BX., LT. KNEE ARTHROSCOPY X 2, CERVICAL FUSIONS, COLONOSCOPY, ÁNGEL. CATARTACTS.Pain Procedures , rt radio frequency procedures. , total 3 heart stents, hemorrhoidectomy,heart cath August 2017-lt knee replacement. Stent replacement \2020 Past Anesthesia/Blood Transfusion Reactions: No Reported Reaction Additional Past Anesthesia/Blood Transfusion Reaction / Comment(s): doesn't like enclosed tight spaces Date of Last Stent Placement:: 04/24/17 Past Psychological History: No Psychological Hx Reported Smoking Status: Former smoker Past Alcohol Use History: None Reported Past Drug Use History: None Reported - Past Family History Father Additional Family Medical History / Comment(s): Father at age 49 from coronary artery disease. Brother(s) Additional Family Medical History / Comment(s): Patient has one brother with history of smoking and no other major medical problems. Patient does not have any sisters. Daughter(s) Additional Family Medical History / Comment(s): Patient has one daughter with history of muscular dystrophy and of pneumonia. Son(s) Family Medical History: No Reported History Additional Family Medical History / Comment(s): Patient has one son with no major medical problems. Mother Family Medical History: Cancer Additional Family Medical History / Comment(s): Mother at age 81 from uterine cancer with metastatic disease. General Exam Limitations: no limitations General appearance: alert, in no apparent distress Head exam: Present: atraumatic, normocephalic, normal inspection Eye exam: Present: normal appearance, PERRL, EOMI. Absent: scleral icterus, conjunctival injection, periorbital swelling ENT exam: Present: normal exam, mucous membranes moist Respiratory exam: Present: normal lung sounds bilaterally. Absent: respiratory distress, wheezes, rales, rhonchi, stridor Cardiovascular Exam: Present: regular rate, normal rhythm, normal heart sounds. Absent: systolic murmur, diastolic murmur, rubs, gallop, clicks Extremities exam: Present: full ROM, tenderness, normal capillary refill, pedal edema, other (Erythema and swelling to the right lower extremity, DP and PT pulses 2+) Neurological exam: Present: alert, oriented X3 Psychiatric exam: Present: normal affect, normal mood Skin exam: Present: warm, dry, intact, erythema. Absent: normal color Course Vital Signs 06/05/23 06/05/23 10:28 13:42 Temperature 97.6 F 98.0 F Pulse Rate 74 67 Respiratory 18 18 Rate Blood Pressure 97/68 121/77 O2 Sat by Pulse 99 97 Oximetry Medical Decision Making - Medical Decision Making Was pt. sent in by a medical professional or institution (, PA, PILL COATER, urgent care, hospital, or retirement...) When possible be specific @ -No Did you speak to anyone other than the patient for history (EMS, parent, family, police, friend...)? What history was obtained from this source @ -No Did you review nursing and triage notes (agree or disagree)? Why? @ -I reviewed and agree with nursing and triage notes Were old charts reviewed (outside hosp., previous admission, EMS record, old EKG, old radiological studies, urgent care reports/EKG's, retirement records)? Report findings @ -No old charts were reviewed Differential Diagnosis (chest pain, altered mental status, abdominal pain women, abdominal pain men, vaginal bleeding, weakness, fever, dyspnea, syncope, headache, dizziness, GI bleed, back pain, seizure, CVA, palpatations, mental health, musculoskeletal)? @ -Cellulitis, DVT, osteomyelitis, this list is not all inclusive EKG interpreted by me (3pts min.). @ -None X-rays interpreted by me (1pt min.). @ -None done CT interpreted by me (1pt min.). @ -None done U/S interpreted by me (1pt. min.). @ -Ultrasound of the right lower extremity shows no evidence of DVT What testing was considered but not performed or refused? (CT, X-rays, U/S, labs)? Why? @ -None What meds were considered but not given or refused? Why? @ -None Did you discuss the management of the patient with other professionals (professionals i.e. , PA, PILL COATER, lab, RT, psych nurse, dialysis social worker, sales agent, teacher, geographic area intelligence officer, counter caser)? Give summary @ -No Was smoking cessation discussed for >3mins.? @ -No Was critical care preformed (if so, how long)? @ -No Were there social determinants of health that impacted care today? How? (Homelessness, low income, unemployed, alcoholism, drug addiction, transportation, low edu. Level, literacy, decrease access to med. care, long term, rehab)? @ -No Was there de-escalation of care discussed even if they declined (Discuss DNR or withdrawal of care, Hospice)? DNR status @ -No What co-morbidities impacted this encounter? (DM, HTN, Smoking, COPD, CAD, Cancer, CVA, ARF, Chemo, Hep., AIDS, mental health diagnosis, sleep apnea, morbid obesity)? @ -None Was patient admitted / discharged? Hospital course, mention meds given and route, prescriptions, significant lab abnormalities, going to OR and other pertinent info. @ -Discharge. Patient presented to the emergency department for evaluation of right lower extremity redness, swelling. He has not had any recent fevers. Laboratory studies obtained which show normal WBC. Ultrasound of the right lower extremity obtained which shows no evidence of DVT. Patient will be treated empirically as a cellulitis with Keflex and Bactrim. Patient stable at time of discharge. Undiagnosed new problem with uncertain prognosis? @ -No Drug Therapy requiring intensive monitoring for toxicity (Heparin, Nitro, Insulin, Cardizem)? @ -No Were any procedures done? @ -No Diagnosis/symptom? @ -Cellulitis Acute, or Chronic, or Acute on Chronic? @ -Acute Uncomplicated (without systemic symptoms) or Complicated (systemic symptoms)? @ -Uncomplicated Side effects of treatment? @ -No Exacerbation, Progression, or Severe Exacerbation? @ -No Poses a threat to life or bodily function? How? (Chest pain, [place], [place], pneumonia, PE, COPD, DKA, ARF, appy, cholecystitis, CVA, Diverticulitis, Homicidal, Suicidal, threat to staff... and all critical care pts) @ -No - Lab Data Result diagrams: 06/05/23 12:06 06/05/23 12:06 Lab Results 06/05/23 06/05/23 Range/Units 12:06 12:06 WBC 8.7 (3.8-10.6) k/uL RBC 4.79 (4.30-5.90) m/uL Hgb 15.5 (13.0-17.5) gm/dL Hct 46.3 (39.0-53.0) % MCV 96.7 (80.0-100.0) fL MCH 32.4 (25.0-35.0) pg MCHC 33.6 (31.0-37.0) g/dL RDW 13.0 (11.5-15.5) % Plt Count 130 L (150-450) k/uL MPV 7.5 Neutrophils % 80 % Lymphocytes % 13 % Monocytes % 5 % Eosinophils % 1 % Basophils % 0 % Neutrophils # 6.9 (1.3-7.7) k/uL Lymphocytes # 1.1 (1.0-4.8) k/uL Monocytes # 0.4 (0-1.0) k/uL Eosinophils # 0.0 (0-0.7) k/uL Basophils # 0.0 (0-0.2) k/uL Sodium 137 (137-145) mmol/L Potassium 5.3 H (3.5-5.1) mmol/L Chloride 106 (98-107) mmol/L Carbon Dioxide 23 (22-30) mmol/L Anion Gap 8 mmol/L BUN 26 H (9-20) mg/dL Creatinine 1.36 H (0.66-1.25) mg/dL Est GFR (CKD-EPI)AfAm 57 (>60 ml/min/1.73 sqM) Est GFR (CKD-EPI)NonAf 50 (>60 ml/min/1.73 sqM) Glucose 212 H (74-99) mg/dL Calcium 9.3 (8.4-10.2) mg/dL Total Bilirubin 1.6 H (0.2-1.3) mg/dL AST 76 H (17-59) U/L ALT 104 H (4-49) U/L Alkaline Phosphatase 60 (38-126) U/L Total Protein 6.7 (6.3-8.2) g/dL Albumin 4.4 (3.5-5.0) g/dL Disposition Clinical Impression: Cellulitis Disposition: HOME SELF-CARE Condition: Stable Instructions (If sedation given, give patient instructions): Cellulitis (ED) Additional Instructions: Please roll picker antibiotics and take to completion. Follow-up with your primary care provider. Return to the emergency department for new or worsening symptoms. Prescriptions: Sulfamethox-Tmp 800-160Mg [Bactrim Ds] 1 each PO Q12HR #20 tab Cephalexin [Keflex] 500 mg PO Q6HR #40 cap Is patient prescribed a controlled substance at d/c from ED?: No Referrals: German Astudillo MD [Primary Care Provider] - 1-2 days
[2023-06-05 12:33] LABS: Basophils % (A) 0 %; Eosinophils % (A) 1 %; HCT 46.3 % (39.0-53.0); HGB 15.5 gm/dL (13.0-17.5); Lymphocytes # (A) 1.1 k/uL (1.0-4.8); Lymphocytes % (A) 13 %; MCH 32.4 pg (25.0-35.0); MCHC 33.6 g/dL (31.0-37.0); MCV 96.7 fL (80.0-100.0); Mean Platelet Volume 7.5; Monocytes # (A) 0.4 k/uL (0-1.0); Monocytes % (A) 5 %; Neutrophils # (A) 6.9 k/uL (1.3-7.7); Neutrophils % (A) 80 %; Platelet Count 130 k/uL (150-450); RBC 4.79 m/uL (4.30-5.90); WBC 8.7 k/uL (3.8-10.6)
[2023-06-05 12:49] LABS: ALT 104 U/L (4-49); AST 76 U/L (17-59); African American GFR (CKD) 57 (>60 ml/min/1.73 sqM); Albumin 4.4 g/dL (3.5-5.0); Alkaline Phosphatase 60 U/L (38-126); Anion Gap 8 mmol/L; Blood Urea Nitrogen 26 mg/dL (9-20); Calcium 9.3 mg/dL (8.4-10.2); Carbon Dioxide 23 mmol/L (22-30); Chloride 106 mmol/L (98-107); Glucose 212 mg/dL (74-99); Non-African American GFR(CKD) 50 (>60 ml/min/1.73 sqM); Potassium 5.3 mmol/L (3.5-5.1); Sodium 137 mmol/L (137-145); Total Bilirubin 1.6 mg/dL (0.2-1.3); Total Protein 6.7 g/dL (6.3-8.2)
--- NOTE | 2023-06-05 13:15 | US ---
EXAMINATION TYPE: US venous doppler duplex LE RT DATE OF EXAM: 06/05/2023 1:09 PM COMPARISON: NONE CLINICAL INDICATION: Male, 77 years old with history of swelling redness; Pain and edema right leg fo r 4-5 days. Patient on blood thinners due to history of TIA SIDE PERFORMED: right TECHNIQUE: The lower extremity deep venous system is examined utilizing real time linear array sonog daina with graded compression, doppler sonography and color-flow sonography. VESSELS IMAGED: Common Femoral Vein Deep Femoral Vein Greater Saphenous Vein * Femoral Vein Popliteal Vein Small Saphenous Vein * Proximal Calf Veins (* superficial vessels) Right Leg: No evidence of DVT IMPRESSION: Grayscale, color doppler, spectral doppler imaging performed of the deep veins of the lo wer extremities. There is normal flow, compressibility, vascular waveforms.
[2023-06-05 13:48] VITALS: BP 121/77; PULSE 67; TEMP 98
== END 2023-06-05 13:51 | disposition home or self-care (01) ==
LOC: EC 10:19
DX: L03.90 Cellulitis, unspecified (principal); E11.9 Type 2 diabetes mellitus without complications; E78.5 Hyperlipidemia, unspecified; I10 Essential (primary) hypertension; I25.10 Atherosclerotic heart disease of native coronary artery without angina pectoris; I25.2 Old myocardial infarction; I48.91 Unspecified atrial fibrillation; M19.90 Unspecified osteoarthritis, unspecified site; Z79.01 Long term (current) use of anticoagulants; Z79.84 Long term (current) use of oral hypoglycemic drugs; Z79.899 Other long term (current) drug therapy; Z87.891 Personal history of nicotine dependence; Z86.73 Personal history of transient ischemic attack (TIA), and cerebral infarction without residual deficits; Z95.5 Presence of coronary angioplasty implant and graft
CPT/HCPCS: 36415; 80053; 85025; 99284

== ENCOUNTER 2023-06-10 19:36 | Inpatient (IN) | payer MEDICARE, BC ==
[2023-06-10] MEDS ORDERED: VANCOMYCIN IV PER PHARMACY 1 EACH MISC MISCELLANE PRN (19:45)
[2023-06-10 20:21] LABS: Basophils % (A) 0 %; Eosinophils % (A) 0 %; HCT 43.1 % (39.0-53.0); HGB 14.8 gm/dL (13.0-17.5); Lymphocytes # (A) 1.4 k/uL (1.0-4.8); Lymphocytes % (A) 25 %; MCH 32.9 pg (25.0-35.0); MCHC 34.3 g/dL (31.0-37.0); MCV 95.9 fL (80.0-100.0); Mean Platelet Volume 7.7; Monocytes # (A) 0.3 k/uL (0-1.0); Monocytes % (A) 6 %; Neutrophils # (A) 3.8 k/uL (1.3-7.7); Neutrophils % (A) 67 %; Platelet Count 141 k/uL (150-450); RDW 12.9 % (11.5-15.5); WBC 5.6 k/uL (3.8-10.6)
[2023-06-10 21:08] LABS: ALT 77 U/L (4-49); AST 57 U/L (17-59); African American GFR (CKD) 38 (>60 ml/min/1.73 sqM); Albumin 4.6 g/dL (3.5-5.0); Alkaline Phosphatase 52 U/L (38-126); Anion Gap 12 mmol/L; Blood Urea Nitrogen 33 mg/dL (9-20); Carbon Dioxide 18 mmol/L (22-30); Chloride 108 mmol/L (98-107); Glucose 168 mg/dL (74-99); Non-African American GFR(CKD) 33 (>60 ml/min/1.73 sqM); Potassium 4.6 mmol/L (3.5-5.1); Sodium 138 mmol/L (137-145); Total Bilirubin 1.1 mg/dL (0.2-1.3)
[2023-06-10 21:14] LABS: C Reactive Protein <0.5 mg/dL (<1.0)
[2023-06-10] MEDS: CEFEPIME 2 GM in SODIUM CHLORIDE 0.9% 100 ML IVPB STA (21:50)
[2023-06-10] MEDS: VANCOMYCIN 1,750 MG in SODIUM CHLORIDE 0.9% 500 ML 500 ML IVPB STA (22:32)
[2023-06-10] MEDS ORDERED: NALOXONE 0.4 MG/ML 1 ML VIAL IV PRN (23:45)
--- NOTE | 2023-06-10 23:45 | ED ---
General Adult HPI - General Chief complaint: Recheck/Abnormal Lab/Rx Stated complaint: infection rt foot-sent by dr astudillo Time Seen by Provider: 06/10/23 19:50 Source: patient Mode of arrival: ambulatory Limitations: physical limitation - History of Present Illness Initial comments: 77-year-old male with past medical history of diabetes presents to the emergency department reporting continued right lower leg pain and swelling. He was seen in the emergency department on the for same complaint. He had an ultrasound performed which was negative. He was started on Bactrim and Keflex. States he has been taking the medications as directed but his pain and swelling is getting worse. He states he can barely get his shoes on because of the swel ling. He denies history of DVT or PE. No chest pain or shortness of breath. Denies any trauma to the extremity. Does have a history of MRSA. He denies any fevers. No pustular drainage from the leg. He contacted his primary care doctor who recommended that he come into the emergency department for admission. Patient is a diabetic. No other alleviating, precipitating or modifying factors - Related Data Home Medications Medication Instructions Recorded Confirmed Atorvastatin [Lipitor] 80 mg PO HS 09/01/20 06/10/23 Aspirin EC [Ecotrin Low Dose] 81 mg PO DAILY 09/11/21 06/10/23 Albuterol Inhaler [Ventolin Hfa 2 puff INHALATION RT-Q6H PRN 06/10/23 06/10/23 Inhaler] Dapagliflozin Propanediol [Farxiga] 10 mg PO DAILY 06/10/23 06/10/23 Losartan Potassium 100 mg PO DAILY 06/10/23 06/10/23 Metoprolol Tartrate [Lopressor] 100 mg PO BID 06/10/23 06/10/23 Semaglutide [Ozempic] 1 mg SQ MO 06/10/23 06/10/23 Sulfamethox-Tmp 800-160Mg [Bactrim 1 tab PO Q12HR 06/10/23 06/10/23 Ds] amLODIPine [Norvasc] 10 mg PO DAILY 06/10/23 06/10/23 Previous Rx's Medication Instructions Recorded Apixaban [Eliquis] 5 mg PO BID tab 09/22/21 Nitroglycerin Sl Tabs [Nitrostat] 0.4 mg SUBLINGUAL Q5M PRN tab 09/22/21 Cephalexin [Keflex] 500 mg PO Q6HR #40 cap 06/05/23 Allergies Allergy/AdvReac Type Severity Reaction Status Date / Time No Known Allergies Allergy Verified 06/10/23 23:04 Review of Systems ROS Statement: Those systems with pertinent positive or pertinent negative responses have been documented in the HPI. ROS Other: All systems not noted in ROS Statement are negative. Past Medical History Past Medical History: Atrial Fibrillation, Coronary Artery Disease (CAD), Cancer, Chest Pain / Angina, CVA/TIA, Diabetes Mellitus, GERD/Reflux, Hyperlipidemia, Hypertension, Osteoarthritis (OA), Prostate Disorder Additional Past Medical History / Comment(s): 5 Herniated discs in neck causing headaches & numbness in arm and right lower back and pain and right leg pain. Prostate Cancer- last radiation tx Mar 25-2016 had total of 44 tx. occ constipation, sepsis Hx Last Myocardial Infarction Date:: UNKOWN History of Any Multi-Drug Resistant Organisms: VRE Date of last positivie culture/infection: 09/18/20 MDRO Source:: Wound Past Surgical History: Adenoidectomy, Heart Catheterization, Heart Catheterizat ion With Stent, Joint Replacement, Orthopedic Surgery, Tonsillectomy Additional Past Surgical History / Comment(s): PROSTATE BX., LT. KNEE ARTHROSCOPY X 2, CERVICAL FUSIONS, COLONOSCOPY, ÁNGEL. CATARTACTS.Pain Procedures , rt radio frequency procedures. , total 3 heart stents, hemorrhoidectomy,heart cath August 2017-lt knee replacement. Stent replacement \2020, hip Past Anesthesia/Blood Transfusion Reactions: No Reported Reaction Additional Past Anesthesia/Blood Transfusion Reaction / Comment(s): doesn't like enclosed tight spaces Date of Last Stent Placement:: 04/24/17 Past Psychological History: No Psychological Hx Reported Smoking Status: Former smoker Past Alcohol Use History: None Reported Past Drug Use History: None Reported - Past Family History Father Additional Family Medical History / Comment(s): Father at age 49 from coronary artery disease. Brother(s) Additional Family Medical History / Comment(s): Patient has one brother with history of smoking and no other major medical problems. Patient does not have any sisters. Daughter(s) Additional Family Medical History / Comment(s): Patient has one daughter with history of muscular dystrophy and of pneumonia. Son(s) Family Medical History: No Reported History Additional Family Medical History / Comment(s): Patient has one son with no major medical problems. Mother Family Medical History: Cancer Additional Family Medical History / Comment(s): Mother at age 81 from uterine cancer with metastatic disease. General Exam Limitations: no limitations General appearance: alert, in no apparent distress Head exam: Present: atraumatic, normocephalic, normal inspection Eye exam: Present: normal appearance, PERRL, EOMI. Absent: scleral icterus, conjunctival injection, periorbital swelling ENT exam: Present: normal exam, mucous membranes moist Neck exam: Present: normal inspection. Absent: tenderness, meningismus, ly mphadenopathy Respiratory exam: Present: normal lung sounds bilaterally. Absent: respiratory distress, wheezes, rales, rhonchi, stridor Cardiovascular Exam: Present: regular rate, normal rhythm, normal heart sounds. Absent: systolic murmur, diastolic murmur, rubs, gallop, clicks GI/Abdominal exam: Present: soft, normal bowel sounds. Absent: distended, tenderness, guarding, rebound, rigid Extremities exam: Present: full ROM, normal capillary refill, pedal edema (Significant swelling of the right lower extremity at the yanes and ankle. There is warmth and redness appreciated. There is some brawny appearance to the skin. Compartments are soft). Absent: tenderness, joint swelling, calf ten derness Back exam: Present: normal inspection Neurological exam: Present: alert, oriented X3, CN II-XII intact Psychiatric exam: Present: normal affect, normal mood Skin exam: Present: warm, dry, intact, normal color. Absent: rash Course Vital Signs 06/10/23 06/11/23 06/11/23 19:45 00:02 00:51 Temperature 98.7 F 97.9 F Pulse Rate 73 81 74 Pulse Rate [ Pulse Oximetery ] Respiratory 16 18 18 Rate Blood Pressure 110/68 123/67 128/66 Blood Pressure [Right Arm] O2 Sat by Pulse 96 96 95 Oximetry 06/11/23 01:36 Temperature 97.6 F Pulse Rate Pulse Rate [ 73 Pulse Oximetery ] Respiratory 18 Rate Blood Pressure Blood Pressure 144/67 [Right Arm] O2 Sat by Pulse 98 Oximetry Medical Decision Making - Medical Decision Making Was pt. sent in by a medical professional or institution (TANA Murillo, CELERY WRAPPER, urgent care, hospital, or detention...) When possible be specific @ -Dr. Astudillo Did you speak to anyone other than the patient for history (EMS, parent, family, police, friend...)? What history was obtained from this source @ -Dr. Astudillo Did you review nursing and triage notes (agree or disagree)? Why? @ -I reviewed and agree with nursing and triage notes Were old charts reviewed (outside hosp., previous admission, EMS record, old EKG, old radiological studies, urgent care reports/EKG's, detention records)? Report findings @ -I reviewed the ED visit with ultrasound done on the 17 of this month Differential Diagnosis (chest pain, altered mental status, abdominal pain women, abdominal pain men, vaginal bleeding, weakness, fever, dyspnea, syncope, headache, dizziness, GI bleed, back pain, seizure, CVA, palpatations, mental health, musculoskeletal)? @ -Cellulitis, abscess, compartment syndrome, necrotizing fasciitis EKG interpreted by me (3pts min.). @ -Not completed X-rays interpreted by me (1pt min.). @ -None done CT interpreted by me (1pt min.). @ -None done U/S interpreted by me (1pt. min.). @ -None done What testing was considered but not performed or refused? (CT, X-rays, U/S, labs)? Why? @ -None What meds were considered but not given or refused? Why? @ -None Did you discuss the management of the patient with other professionals (professionals i.e. TANA Murillo, CELERY WRAPPER, lab, RT, psych nurse, social contact worker, brush worker, teacher, community development officer, showcase maker)? Give summary @ -I spoke with Dr. Astudillo who will admit the patient. He requested the patient be started on cefepime and Vanco with a infectious disease consult Was smoking cessation discussed for >3mins.? @ -No Was critical care preformed (if so, how long)? @ -No Were there social determinants of health that impacted care today? How? (Homelessness, low income, unemployed, alcoholism, drug addiction, transportation, low edu. Level, literacy, decrease access to med. care, senior care, rehab)? @ -No Was there de-escalation of care discussed even if they declined (Discuss DNR or withdrawal of care, Hospice)? DNR status @ -No What co-morbidities impacted this encounter? (DM, HTN, Smoking, COPD, CAD, Cancer, CVA, ARF, Chemo, Hep., AIDS, mental health diagnosis, sleep apnea, morbid obesity)? @ -Diabetes mellitus, MRSA Was patient admitted / discharged? Hospital course, mention meds given and route, prescriptions, significant lab abnormalities, going to OR and other pertinent info. @ -Upon arrival patient was placed into room 9. Thorough history and physical exam was performed. Laboratory studies are conducted. Patient is initiated on cefepime and Vanco after blood cultures were obtained. Patient will be admitted with infectious disease consult Undiagnosed new problem with uncertain prognosis? @ -No Drug Therapy requiring intensive monitoring for toxicity (Heparin, Nitro, Insulin, Cardizem)? @ -No Were any procedures done? @ -No Diagnosis/symptom? @ -Acute right lower extremity swelling, acute cellulitis, failed outpatient treatment Acute, or Chronic, or Acute on Chronic? @ -Acute Uncomplicated (without systemic symptoms) or Complicated (systemic symptoms)? @ -Complicated Side effects of treatment? @ -No Exacerbation, Progression, or Severe Exacerbation? @ -No Poses a threat to life or bodily function? How? (Chest pain, [place], [place], pneumonia, PE, COPD, DKA, ARF, appy, cholecystitis, CVA, Diverticulitis, Homicidal, Suicidal, threat to staff... and all critical care pts) @ -No - Lab Data Result diagrams: 06/11/23 06:14 06/11/23 06:14 Lab Results 06/10/23 06/10/23 Range/Units 19:48 19:48 WBC 5.6 (3.8-10.6) k/uL RBC 4.50 (4.30-5.90) m/uL Hgb 14.8 (13.0-17.5) gm/dL Hct 43.1 (39.0-53.0) % MCV 95.9 (80.0-100.0) fL MCH 32.9 (25.0-35.0) pg MCHC 34.3 (31.0-37.0) g/dL RDW 12.9 (11.5-15.5) % Plt Count 141 L (150-450) k/uL MPV 7.7 Neutrophils % 67 % Lymphocytes % 25 % Monocytes % 6 % Eosinophils % 0 % Basophils % 0 % Neutrophils # 3.8 (1.3-7.7) k/uL Lymphocytes # 1.4 (1.0-4.8) k/uL Monocytes # 0.3 (0-1.0) k/uL Eosinophils # 0.0 (0-0.7) k/uL Basophils # 0.0 (0-0.2) k/uL ESR 1 (0-20) mm/Hr Sodium 138 (137-145) mmol/L Potassium 4.6 (3.5-5.1) mmol/L Chloride 108 H (98-107) mmol/L Carbon Dioxide 18 L (22-30) mmol/L Anion Gap 12 mmol/L BUN 33 H (9-20) mg/dL Creatinine 1.89 H (0.66-1.25) mg/dL Est GFR (CKD-EPI)AfAm 38 (>60 ml/min/1.73 sqM) Est GFR (CKD-EPI)NonAf 33 (>60 ml/min/1.73 sqM) Glucose 168 H (74-99) mg/dL Calcium 9.0 (8.4-10.2) mg/dL Total Bilirubin 1.1 (0.2-1.3) mg/dL AST 57 (17-59) U/L ALT 77 H (4-49) U/L Alkaline Phosphatase 52 (38-126) U/L C-Reactive Protein <0.5 (<1.0) mg/dL Total Protein 7.0 (6.3-8.2) g/dL Albumin 4.6 (3.5-5.0) g/dL Disposition Clinical Impression: Cellulitis of right lower extremity Disposition: [facility] Condition: Stable Is patient prescribed a controlled substance at d/c from ED?: No Time of Disposition: 23:44 Decision to Admit Reason: Admit from EC Decision Date: 06/10/23 Decision Time: 23:44
[2023-06-10] MEDS ORDERED: ALBUTEROL NEBULIZED 2.5 MG/3 ML INHALATION PRN (23:46)
[2023-06-11] MEDS: APIXABAN 5 MG TAB PO SCH (00:52)
[2023-06-11] MEDS: METOPROLOL TARTRATE 50 MG TAB PO SCH (00:52)
[2023-06-11] MEDS: ATORVASTATIN 80 MG TAB PO SCH (00:52)
[2023-06-11 02:43] LABS: Erythrocyte Sedimentation Rate 1 mm/Hr (0-20)
[2023-06-11 06:25] LABS: Glucose,Whole Blood 132 mg/dL (70-110)
[2023-06-11 06:36] LABS: Basophils % (A) 0 %; Eosinophils % (A) 1 %; HCT 39.5 % (39.0-53.0); HGB 13.7 gm/dL (13.0-17.5); Lymphocytes # (A) 1.2 k/uL (1.0-4.8); Lymphocytes % (A) 23 %; MCHC 34.8 g/dL (31.0-37.0); MCV 94.9 fL (80.0-100.0); Mean Platelet Volume 8.8; Monocytes # (A) 0.4 k/uL (0-1.0); Monocytes % (A) 8 %; Neutrophils # (A) 3.2 k/uL (1.3-7.7); Neutrophils % (A) 65 %; Platelet Count 109 k/uL (150-450); RBC 4.16 m/uL (4.30-5.90); RDW 13.2 % (11.5-15.5); WBC 4.9 k/uL (3.8-10.6)
[2023-06-11 06:47] LABS: African American GFR (CKD) 47 (>60 ml/min/1.73 sqM); Anion Gap 10 mmol/L; Blood Urea Nitrogen 32 mg/dL (9-20); Calcium 8.4 mg/dL (8.4-10.2); Carbon Dioxide 16 mmol/L (22-30); Chloride 111 mmol/L (98-107); Glucose 132 mg/dL (74-99); Non-African American GFR(CKD) 41 (>60 ml/min/1.73 sqM); Potassium 4.3 mmol/L (3.5-5.1); Sodium 137 mmol/L (137-145)
[2023-06-11] MEDS: LOSARTAN 50 MG TAB PO SCH (08:57)
[2023-06-11] MEDS: DAPAGLIFLOZIN PROPANEDIOL 10 MG TABLET PO SCH (08:57)
[2023-06-11] MEDS: amLODIPine 10 MG TAB PO SCH (08:57)
[2023-06-11] MEDS: ASPIRIN 81 MG PO SCH (08:58)
[2023-06-11 11:47] LABS: Glucose,Whole Blood 116 mg/dL (70-110)
[2023-06-11] MEDS ORDERED: NITROGLYCERIN SL TABS 0.4 MG TAB SUBLINGUAL PRN (14:02)
--- NOTE | 2023-06-11 15:16 | P.HPIM ---
History of Present Illness H&P Date: 06/11/23 Chief Complaint: Cellulitis right lower extremity HISTORY OF PRESENT ILLNESS: This is a 77-year-old male patient of mine with previous medical history significant for coronary artery disease status post percutaneous coronary intervention and stent placement last one was in 12/13/2019 in the mid RCA at that time he was found to have a totally occluded obtuse marginal one of the LCx, with collaterals from the PDA, hypertension and hypertensive cardiovascular disease, hyperlipidemia, diabetes mellitus type 2, diabetic polyneuropathy, 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 as well as radio frequency ablation, prostate cancer status post radiation therapy, MSSA septic arthritis left knee, patient presented to the emergency department at [facility] June 05, 2023 for increased swelling and redness of the right lower extremity, he had a venous Doppler that was negative for DVT, he did not have any leukocytosis, he did not have any signs of SIRS, patient was started on oral antibiotic in the form of cephalexin 500 mg orally 4 times every day and Bactrim double strength twice a day for 10 days, patient was supposed to follow- up with me as an outpatient in a week, patient called me yesterday stated that the right lower extremity is extremely red and pain full to touch with increased swelling in the right foot, he was redirected to go to the ER for evaluation he did not have any significant leukocytosis, but his right leg appeared to be beet red with significant tenderness to touch, increased warmth to touch as well, patient failed basically outpatient oral antibiotic he was started on IV antibiotic in the form of vancomycin and cefepime then he was seen in consultation by infectious disease, and he was switched to Ancef 2 g IV piggyback every 8 hours. REVIEW OF SYSTEMS: Constitutional: Documented fever, or chills, no night sweats, reports fatigue , positive for weight loss. HEENT: No headache. No blurred vision or double vision, no loss of vision. No loss of Hearing, no ringing in the ears, no dizziness. No nasal drainage or congestion. No epistaxis. No sore throat. Respiratory: No shortness of breath, reported cough, no sputum production. No wheezing. Reports dyspnea with activity. Cardiovascular: No chest pain, no lower extremity edema. No palpitations. No paroxysmal nocturnal dyspnea. No orthopnea. No lightheadedness or dizziness. No syncopal episodes. Gastrointestinal: Reports no abdominal pain. No nausea, vomiting. No diarrhea. No constipation. No bloody or tarry stools reports loss of appetite. Genitourinary: No dysuria, increased frequency, urgency. No urinary retention. Musculoskeletal: Positive for myalgias. positive for muscle weakness, Positive for gait dysfunction, no frequent falls, positive for low back pain . Integumentary: Sacral decubitus ulcer with pain, no lesions. No rash or pruritus. brpositive for bruising. No change in hair or nails. Neurologic: No aphasia. No facial droop. No change in mentation. No head injury. No headache. No paralysis. No paresthesia. Psychiatric: No depression. No anxiety. No mood swings. Endocrine: No abnormal blood sugars. No weight change. PAST MEDICAL HISTORY: 1. CAD post-PCI of the RCA. 2. Hypertension and hypertensive cardiovascular disease. 3. Hyperlipidemia. 4. Diabetes mellitus type 2 5. Diabetic polyneuropathy. 6. PAD. 7. Prostate cancer. 8. Erectile dysfunction. 9. Spondylosis of the lumbar spine. 10. Osteoarthritis. 11. Spondylosis of the cervical spine. 12. Constipation. 13. Septic arthritis left knee and MSSA bacteremia status post revision. 14. C. difficile colitis. PAST SURGICAL HISTORY: Left knee arthroscopic surgery x2. Left total knee arthroplasty. Right total hip replacement with revision due to infection Prostate biopsy. Bilateral cataract surgery. Left heart catheterization in August 2017 with a stent placement of the RCA. Left heart catheterization 07/28/2020 with attempted PCI of the RCA. Left heart catheterization 07/30/2020 with 2 stents placement of the RCA Adenoidectomy with tonsillectomy. Colonoscopy. Epidural injection of the lumbar spine with radiofrequency ablation. SOCIAL HISTORY: Patient is a smoker a pack every day smoked for many years and quit many years ago, he denies any alcohol ingestion, patient used to work for the [employer]. Patient resides at assisted living. FAMILY HISTORY: Father at age of 49 from myocardial infarction, mother at age of 81 from uterine cancer with metastatic disease, patient has one brother with chronic tobacco use and dependence, patient has no sisters, patient has one son no major medical problems, he had 2 daughters one of them from dishing muscular dystrophy the other one is alive and lives in [place]. PHYSICAL EXAMINATION: General: This is 77-year-old male who appears to be in severely ill. HEENT: Head is atraumatic, normocephalic, pupils were equal round reactive to light and recommendation, extraocular muscle movement were intact, sclera nonicteric, conjunctivae were pale, mucous membranes of the mouth are dry. Neck: Supple, no JVP, normal carotid upstroke bilaterally, no lymphadenopathy. Chest: Decreased breath sounds at the bases, few rhonchi, no extremity wheezes, no chest wall tenderness, no intercostal retractions. Heart: First heart sound is normal, second heart sound is normal there is systolic ejection murmur 2/6 left sternal border. Abdomen: Soft, nontender, nondistended, positive bowel sounds, no hepatosplenomegaly Extremities: there is right foot edema, there is increased redness to the right lower extremity all the way to the back of the leg, with increased warmth tenderness and increased redness as well suggestive of significant cellulitis. Dorsalis pedis +2 bilaterally. Skin: There is a scab on his coccyx. Neurologic examination: Patient is awake alert and oriented x 3, cranial nerves II to XII appear to be gross intact, muscle power 5 out of 5 in upper and lower extremities bilaterally. ASSESSMENT AND PLAN: 1. Right lower extremity cellulitis with SIRS failed outpatient management. Blood cultures, start the patient on Silvadene cream 1% to be applied to the right lower extremity wrapped with a Kerlix wrap and Rpaneeth wrap once every day, start the patient on vancomycin with pharmacy to dose its peak and trough, infectious disease consultation, monitor the patient CBC over the next 24 hours. 2. Acute kidney injury due to poor oral intake of fluid and possible acute tubular necrosis. Continue IV fluid resuscitation in the form of normal saline, monitor the patient CMP over the next 24 hours 3. History of MSSA left knee joint infection status post revision. 4. Paroxysmal atrial fibrillation. Continue patient on metoprolol 100 mg orally twice every day as well as Eliquis 5 mg orally twice every day for life. 5. Coronary artery disease status post Left heart catheterization with PCI of the RCA on 07/30/2020. Continue patient on aspirin 81 mg once every day, continue metoprolol 100 mg orally twice every day. 6. Hypertension and hypertensive cardiovascular disease. Continue metoprolol 100 mg orally twice every day, losartan 100 mg once every day, and amlodipine 10 mg orally once every day, monitor the patient blood pressure very closely. 7. Hyperlipidemia. Continue patient on atorvastatin 80 mg orally once every day 8. Diabetes mellitus type 2. We will continue patient on Farxiga 10 mg orally once every day as well as Ozempic 1 mg subcutaneously once every week on Wednesday. 9. History of prostate cance status post rotation. Stable at this time. 10. 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 Stable at this time 11. DVT prophylaxis. Continue patient on Eliquis 5 mg orally twice every day. 12. GI prophylaxis. Protonix 40 mg orally once every day.. 13. admit to inpatient. Estimated length of stay 2 midnights. 14. Patient is full code. Past Medical History Past Medical History: Atrial Fibrillation, Coronary Artery Disease (CAD), Cancer, Chest Pain / Angina, CVA/TIA, Diabetes Mellitus, GERD/Reflux, Hyperlipidemia, Hypertension, Osteoarthritis (OA), Prostate Disorder Additional Past Medical History / Comment(s): 5 Herniated discs in neck causing headaches & numbness in arm and right lower back and pain and right leg pain. Prostate Cancer- last radiation tx Mar 25 had total of 44 tx. occ constipation, sepsis Hx Last Myocardial Infarction Date:: UNKOWN History of Any Multi-Drug Resistant Organisms: VRE Date of last positivie culture/infection: 09/18/20 MDRO Source:: Wound Past Surgical History: Adenoidectomy, Heart Catheterization, Heart Catheterizat ion With Stent, Joint Replacement, Orthopedic Surgery, Tonsillectomy Additional Past Surgical History / Comment(s): PROSTATE BX., LT. KNEE ARTHROSCOPY X 2, CERVICAL FUSIONS, COLONOSCOPY, ÁNGEL. CATARTACTS.Pain Procedures , rt radio frequency procedures. , total 3 heart stents, hemorrhoidectomy,heart cath August 2017-lt knee replacement. Stent replacement \2020, hip Past Anesthesia/Blood Transfusion Reactions: No Reported Reaction Additional Past Anesthesia/Blood Transfusion Reaction / Comment(s): doesn't like enclosed tight spaces Date of Last Stent Placement:: 04/24/17 Past Psychological History: No Psychological Hx Reported Smoking Status: Former smoker Past Alcohol Use History: None Reported Past Drug Use History: None Reported - Past Family History Father Additional Family Medical History / Comment(s): Father at age 49 from coronary artery disease. Brother(s) Additional Family Medical History / Comment(s): Patient has one brother with history of smoking and no other major medical problems. Patient does not have any sisters. Daughter(s) Additional Family Medical History / Comment(s): Patient has one daughter with history of muscular dystrophy and of pneumonia. Son(s) Family Medical History: No Reported History Additional Family Medical History / Comment(s): Patient has one son with no major medical problems. Mother Family Medical History: Cancer Additional Family Medical History / Comment(s): Mother at age 81 from uterine cancer with metastatic disease. Medications and Allergies Home Medications Medication Instructions Recorded Confirmed Type Atorvastatin [Lipitor] 80 mg PO HS 09/01/20 06/10/23 History Aspirin EC [Ecotrin Low Dose] 81 mg PO DAILY 09/11/21 06/10/23 History Apixaban [Eliquis] 5 mg PO BID tab 09/22/21 06/10/23 Rx Nitroglycerin Sl Tabs [Nitrostat] 0.4 mg SUBLINGUAL Q5M PRN tab 09/22/21 06/10/23 Rx Cephalexin [Keflex] 500 mg PO Q6HR #40 cap 06/05/23 06/10/23 Rx Albuterol Inhaler [Ventolin Hfa 2 puff INHALATION RT-Q6H PRN 06/10/23 06/10/23 History Inhaler] Dapagliflozin Propanediol [Farxiga] 10 mg PO DAILY 06/10/23 06/10/23 History Losartan Potassium 100 mg PO DAILY 06/10/23 06/10/23 History Metoprolol Tartrate [Lopressor] 100 mg PO BID 06/10/23 06/10/23 History Semaglutide [Ozempic] 1 mg SQ MO 06/10/23 06/10/23 History Sulfamethox-Tmp 800-160Mg [Bactrim 1 tab PO Q12HR 06/10/23 06/10/23 History Ds] amLODIPine [Norvasc] 10 mg PO DAILY 06/10/23 06/10/23 History Allergies Allergy/AdvReac Type Severity Reaction Status Date / Time No Known Allergies Allergy Verified 06/10/23 23:04 Physical Exam Vitals: Vital Signs Temp Pulse Pulse Resp BP BP Pulse Ox 06/11/23 08:58 63 17 06/11/23 06:51 98.0 F 63 17 124/71 97 06/11/23 01:36 97.6 F 73 18 144/67 98 06/11/23 00:51 74 18 128/66 95 06/11/23 00:02 97.9 F 81 18 123/67 96 06/10/23 19:45 98.7 F 73 16 110/68 96 Intake and Output 06/10/23 06/11/23 06/11/23 22:59 06:59 14:59 Other: Voiding Method Toilet # Voids 2 Weight 111.13 kg 111.13 kg Results CBC & Chem 7: 06/11/23 06:14 06/11/23 06:14 Labs: Abnormal Lab Results - Last 24 Hours (Table) 06/10/23 06/10/23 06/11/23 Range/Units 19:48 19:48 06:14 RBC (4.30-5.90) m/uL Plt Count 141 L (150-450) k/uL Chloride 108 H 111 H (98-107) mmol/L Carbon Dioxide 18 L 16 L (22-30) mmol/L BUN 33 H 32 H (9-20) mg/dL Creatinine 1.89 H 1.61 H (0.66-1.25) mg/dL Glucose 168 H 132 H (74-99) mg/dL POC Glucose (mg/dL) (70-110) mg/dL ALT 77 H (4-49) U/L 06/11/23 06/11/23 06/11/23 Range/Units 06:14 06:23 11:46 RBC 4.16 L (4.30-5.90) m/uL Plt Count 109 L (150-450) k/uL Chloride (98-107) mmol/L Carbon Dioxide (22-30) mmol/L BUN (9-20) mg/dL Creatinine (0.66-1.25) mg/dL Glucose (74-99) mg/dL POC Glucose (mg/dL) 132 H 116 H (70-110) mg/dL ALT (4-49) U/L Thrombosis Risk Factor Assmnt - Choose All That Apply Other Risk Factors: Yes Each Risk Factor Represents 3 Points: Age 75 years or older Thrombosis Risk Factor Assessment Total Risk Factor Score: 3 Thrombosis Risk Factor Assessment Level: Moderate Risk
[2023-06-11 16:52] LABS: Glucose,Whole Blood 142 mg/dL (70-110)
[2023-06-11 20:02] LABS: Glucose,Whole Blood 126 mg/dL (70-110)
[2023-06-11] MEDS ORDERED: VANCOMYCIN 1,750 MG in SODIUM CHLORIDE 0.9% 500 ML 500 ML IVPB SCH (21:00)
--- NOTE | 2023-06-11 23:04 | P.CONS ---
History of Present Illness - Reason for Consult Consult date: 06/11/23 Right lower extremity cellulitis Requesting physician: Reba Dutta - Chief Complaint Increasing swelling redness to the right leg x 1 week - History of Present Illness Patient is a 77-year-old male with a past medical history significant for atrial fibrillation coronary disease diabetes mellitus hypertension hyperlipidemia apparently started having a problem with the right lower extremity swelling redness and pain for the patient was evaluated at [facility] ER on 06/05/2023 the patient did have a lower extremity Doppler was negative for DVT and the patient has been treated with oral Keflex and Bactrim DS however the patient did not have improvement hence he presented back to the hospital last night, patient be complaining of persistent swelling to the right lower extremity with associated redness and also complaining of pain described to be moderate and aching moderate intensity without radiation patient currently do not have any open wound or any drainage on presentation to the hospital patient was afebrile and no fever have recorded subsequently patient was not tachycardic hypotensive or hypoxic he did have white count of 4.9 creatinine is 1.61 patient was started on vancomycin infectious disease was consulted for further management of antibiotic therapy Review of Systems Positive point and negatives has been mentioned in the HPI, complete review of systems was performed and all other systems are negative Past Medical History Past Medical History: Atrial Fibrillation, Coronary Artery Disease (CAD), Cancer, Chest Pain / Angina, CVA/TIA, Diabetes Mellitus, GERD/Reflux, Hyperlipidemia, Hypertension, Osteoarthritis (OA), Prostate Disorder Additional Past Medical History / Comment(s): 5 Herniated discs in neck causing headaches & numbness in arm and right lower back and pain and right leg pain. Prostate Cancer- last radiation tx Mar 25 had total of 44 tx. occ constipation, sepsis Hx Last Myocardial Infarction Date:: UNKOWN History of Any Multi-Drug Resistant Organisms: VRE Year Discovered:: 09/18/20 MDRO Source:: Wound Past Surgical History: Adenoidectomy, Heart Catheterization, Heart Catheterizat ion With Stent, Joint Replacement, Orthopedic Surgery, Tonsillectomy Additional Past Surgical History / Comment(s): PROSTATE BX., LT. KNEE ARTHROSCOPY X 2, CERVICAL FUSIONS, COLONOSCOPY, ÁNGEL. CATARTACTS.Pain Procedures , rt radio frequency procedures. , total 3 heart stents, hemorrhoidectomy,heart cath August 2017-lt knee replacement. Stent replacement \2020, hip Past Anesthesia/Blood Transfusion Reactions: No Reported Reaction Additional Past Anesthesia/Blood Transfusion Reaction / Comm: doesn't like enclosed tight spaces Date of Last Stent Placement:: 04/24/17 Past Psychological History: No Psychological Hx Reported Smoking Status: Former smoker Past Alcohol Use History: None Reported Past Drug Use History: None Reported - Past Family History Father Additional Family Medical History / Comment(s): Father at age 49 from coronary artery disease. Brother(s) Additional Family Medical History / Comment(s): Patient has one brother with history of smoking and no other major medical problems. Patient does not have any sisters. Daughter(s) Additional Family Medical History / Comment(s): Patient has one daughter with history of muscular dystrophy and of pneumonia. Son(s) Family Medical History: No Reported History Additional Family Medical History / Comment(s): Patient has one son with no major medical problems. Mother Family Medical History: Cancer Additional Family Medical History / Comment(s): Mother at age 81 from uterine cancer with metastatic disease. Medications and Allergies Home Medications Medication Instructions Recorded Confirmed Type Atorvastatin [Lipitor] 80 mg PO HS 09/01/20 06/10/23 History Aspirin EC [Ecotrin Low Dose] 81 mg PO DAILY 09/11/21 06/10/23 History Apixaban [Eliquis] 5 mg PO BID tab 09/22/21 06/10/23 Rx Nitroglycerin Sl Tabs [Nitrostat] 0.4 mg SUBLINGUAL Q5M PRN tab 09/22/21 06/10/23 Rx Cephalexin [Keflex] 500 mg PO Q6HR #40 cap 06/05/23 06/10/23 Rx Albuterol Inhaler [Ventolin Hfa 2 puff INHALATION RT-Q6H PRN 06/10/23 06/10/23 History Inhaler] Dapagliflozin Propanediol [Farxiga] 10 mg PO DAILY 06/10/23 06/10/23 History Losartan Potassium 100 mg PO DAILY 06/10/23 06/10/23 History Metoprolol Tartrate [Lopressor] 100 mg PO BID 06/10/23 06/10/23 History Semaglutide [Ozempic] 1 mg SQ MO 06/10/23 06/10/23 History Sulfamethox-Tmp 800-160Mg [Bactrim 1 tab PO Q12HR 06/10/23 06/10/23 History Ds] amLODIPine [Norvasc] 10 mg PO DAILY 06/10/23 06/10/23 History Allergies Allergy/AdvReac Type Severity Reaction Status Date / Time No Known Allergies Allergy Verified 06/10/23 23:04 Physical Exam Vitals: Vital Signs Temp Pulse Pulse Resp BP BP Pulse Ox 06/11/23 08:58 63 17 06/11/23 06:51 98.0 F 63 17 124/71 97 06/11/23 01:36 97.6 F 73 18 144/67 98 06/11/23 00:51 74 18 128/66 95 06/11/23 00:02 97.9 F 81 18 123/67 96 06/10/23 19:45 98.7 F 73 16 110/68 96 Intake and Output 06/10/23 06/11/23 06/11/23 22:59 06:59 14:59 Other: Voiding Method Toilet # Voids 2 Weight 111.13 kg 111.13 kg GENERAL DESCRIPTION: Elderly male lying in bed, no distress. No tachypnea or accessory muscle of respiration use. HEENT: Shows Pallor , no scleral icterus. Oral mucous membrane is dry. No pharyngeal erythema or thrush NECK: Trachea central, no thyromegaly. LUNGS: Unlabored breathing. Clear to auscultation anteriorly. No wheeze or crackle. HEART: S1, S2, regular rate and rhythm. No loud murmur ABDOMEN: Soft, no tenderness , guarding or rigidity, no organomegaly EXTREMITIES: Right lower extremity with diffuse swelling and redness some warmth no open wound or any drainage SKIN: No rash, no masses palpable. NEUROLOGICAL: The patient is awake, alert, oriented x3, mood and affect normal. Results CBC & Chem 7: 06/11/23 06:14 06/11/23 06:14 Labs: Abnormal Lab Results - Last 24 Hours (Table) 06/10/23 06/10/23 06/11/23 Range/Units 19:48 19:48 06:14 RBC (4.30-5.90) m/uL Plt Count 141 L (150-450) k/uL Chloride 108 H 111 H (98-107) mmol/L Carbon Dioxide 18 L 16 L (22-30) mmol/L BUN 33 H 32 H (9-20) mg/dL Creatinine 1.89 H 1.61 H (0.66-1.25) mg/dL Glucose 168 H 132 H (74-99) mg/dL POC Glucose (mg/dL) (70-110) mg/dL ALT 77 H (4-49) U/L 06/11/23 06/11/23 Range/Units 06:14 06:23 RBC 4.16 L (4.30-5.90) m/uL Plt Count 109 L (150-450) k/uL Chloride (98-107) mmol/L Carbon Dioxide (22-30) mmol/L BUN (9-20) mg/dL Creatinine (0.66-1.25) mg/dL Glucose (74-99) mg/dL POC Glucose (mg/dL) 132 H (70-110) mg/dL ALT (4-49) U/L Assessment and Plan (1) Failure of outpatient treatment Current Visit: Yes Status: Acute Code(s): Z78.9 - OTHER SPECIFIED HEALTH STATUS SNOMED Code(s): 332519039 (2) Cellulitis of right lower extremity Current Visit: Yes Status: Acute Code(s): L03.115 - CELLULITIS OF RIGHT LOWER LIMB SNOMED Code(s): 93225607981394075 Plan: 1patient presented hospital with increasing swelling and redness to the right lower extremity failing outpatient oral Keflex and Bactrim DS therapy likely because of the burden of disease patient did have Doppler on 06/05/2023 that was negative for DVT features are mostly of streptococcal cellulitis rather than MRSA with no evidence of any purulent drainage or wound 2-patient did have borderline kidney function high risk of nephrotoxicity from vancomycin 3-discontinue vancomycin 4-we will start cefazolin 2 g every 8 hours 5-Praneeth wrap to the leg from just above the toe to keep the swelling down We will follow on clinical condition and cultures to further adjust medication if needed Thank you for this consultation we will follow the patient along with you Dictation was produced using [employer] dictation software. please excuse any grammatical, word or spelling errors. Time with Patient: Greater than 30
[2023-06-12 06:12] LABS: Glucose,Whole Blood 123 mg/dL (70-110)
[2023-06-12 08:16] LABS: ALT 75 U/L (4-49); AST 65 U/L (17-59); African American GFR (CKD) 60 (>60 ml/min/1.73 sqM); Albumin/Globulin Ratio 1.7; Alkaline Phosphatase 48 U/L (38-126); Anion Gap 10 mmol/L; Blood Urea Nitrogen 27 mg/dL (9-20); Carbon Dioxide 18 mmol/L (22-30); Chloride 110 mmol/L (98-107); Globulin 2.3 g/dL; Glucose 124 mg/dL (74-99); Non-African American GFR(CKD) 52 (>60 ml/min/1.73 sqM); Potassium 4.4 mmol/L (3.5-5.1); Sodium 138 mmol/L (137-145); Total Bilirubin 1.3 mg/dL (0.2-1.3); Total Protein 6.3 g/dL (6.3-8.2)
[2023-06-12 08:34] LABS: Basophils % (A) 0 %; Eosinophils % (A) 0 %; HCT 41.3 % (39.0-53.0); Lymphocytes # (A) 1.1 k/uL (1.0-4.8); Lymphocytes % (A) 27 %; MCH 32.6 pg (25.0-35.0); MCHC 33.9 g/dL (31.0-37.0); MCV 96.4 fL (80.0-100.0); Mean Platelet Volume 8.3; Monocytes # (A) 0.3 k/uL (0-1.0); Monocytes % (A) 8 %; Neutrophils # (A) 2.4 k/uL (1.3-7.7); Neutrophils % (A) 61 %; Platelet Count 104 k/uL (150-450); RBC 4.28 m/uL (4.30-5.90); RDW 13.3 % (11.5-15.5)
[2023-06-12 11:33] LABS: Glucose,Whole Blood 111 mg/dL (70-110)
--- NOTE | 2023-06-12 11:46 | P.PN ---
Subjective Progress Note Date: 06/12/23 Principal diagnosis: Reason for follow-up is right lower extremity cellulitis Patient is a 77-year-old male with a past medical history significant for atrial fibrillation coronary disease diabetes mellitus hypertension hyperlipidemia presented to the hospital for increasing swelling redness of the right lower extremity did have a right leg Doppler on 05 June was negative for DVT failing outpatient or antibiotic therapy. On today's evaluation that is 06/12/2023, the patient continues to be afebrile, the patient is on room air and breathing comfortably, the Pt denies having any chest pain or cough, the patient denies having any abdominal pain no vomiting or any diarrhea has been reported by the nursing staff, patient mention decreased in the discomfort to the right leg compared into admission. Patient white count is 4.0, creatinine is 1.32 Objective - Vital Signs Vital signs: Vital Signs Temp 98.0 F 06/12/23 07:57 Pulse 69 06/12/23 07:57 Resp 16 06/12/23 07:57 BP 147/77 06/12/23 07:57 Pulse Ox 97 06/12/23 07:57 FiO2 Intake & Output 06/11/23 06/12/23 06/12/23 18:59 06:59 18:59 Output Total 3 Balance -3 Output: Urine 3 Other: Voiding Method Toilet Toilet # Voids 2 # Bowel Movements 1 - Exam GENERAL DESCRIPTION: An elderly male lying in bed in no distress RESPIRATORY SYSTEM: Unlabored breathing , decreased breath sounds at bases HEART: S1 S2 regular rate and rhythm , ABDOMEN: Soft , no tenderness EXTREMITIES: Right leg swelling redness slightly decreased - Labs CBC & Chem 7: 06/12/23 06:50 06/12/23 06:50 Labs: Abnormal Lab Results - Last 24 Hours (Table) 06/11/23 06/11/23 06/11/23 Range/Units 11:46 16:52 20:00 RBC (4.30-5.90) m/uL Plt Count (150-450) k/uL Chloride (98-107) mmol/L Carbon Dioxide (22-30) mmol/L BUN (9-20) mg/dL Creatinine (0.66-1.25) mg/dL Glucose (74-99) mg/dL POC Glucose (mg/dL) 116 H 142 H 126 H (70-110) mg/dL AST (17-59) U/L ALT (4-49) U/L 06/12/23 06/12/23 06/12/23 Range/Units 06:10 06:50 06:50 RBC 4.28 L (4.30-5.90) m/uL Plt Count 104 L (150-450) k/uL Chloride 110 H (98-107) mmol/L Carbon Dioxide 18 L (22-30) mmol/L BUN 27 H (9-20) mg/dL Creatinine 1.32 H (0.66-1.25) mg/dL Glucose 124 H (74-99) mg/dL POC Glucose (mg/dL) 123 H (70-110) mg/dL AST 65 H (17-59) U/L ALT 75 H (4-49) U/L Microbiology - Last 24 Hours (Table) 06/10/23 19:48 Blood Culture - Preliminary Blood Assessment and Plan (1) Failure of outpatient treatment Current Visit: Yes Status: Acute Code(s): Z78.9 - OTHER SPECIFIED HEALTH STATUS SNOMED Code(s): 817751064 (2) Cellulitis of right lower extremity Current Visit: Yes Status: Acute Code(s): L03.115 - CELLULITIS OF RIGHT LOWER LIMB SNOMED Code(s): 88373176501271876 Plan: 1patient presented hospital with increasing swelling and redness to the right lower extremity failing outpatient oral Keflex and Bactrim DS therapy likely because of the burden of disease patient did have Doppler on 06/05/2023 that was negative for DVT features are mostly of streptococcal cellulitis rather than MRSA with no evidence of any purulent drainage or wound 2-patient did have borderline kidney function high risk of nephrotoxicity from vancomycin 3-patient to continue with cefazolin 2 g every 8 hours, along with Praneeth wrap to the leg from just above the toe to keep the swelling down Question concern answered Dictation was produced using [employer] dictation software. please excuse any grammatical, word or spelling errors. Time with Patient: Less than 30
[2023-06-12] MEDS ORDERED: DEXTROSE 50% SYRINGE 50 ML IVP PRN ×2 (13:16)
--- NOTE | 2023-06-12 13:17 | P.PN ---
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 as well as radio frequency ablation, prostate cancer status post radiation therapy, MSSA septic arthritis left knee, patient presented to the emergency department at [facility] June 05, 2023 for increased swelling and redness of the right lower extremity, he had a venous Doppler that was negative for DVT, he did not have any leukocytosis, he did not have any signs of SIRS, patient was started on oral antibiotic in the form of cephalexin 500 mg orally 4 times every day and Bactrim double strength twice a day for 10 days, patient was supposed to follow- up with me as an outpatient in a week, patient called me yesterday stated that the right lower extremity is extremely red and pain full to touch with increased swelling in the right foot, he was redirected to go to the ER for evaluation he did not have any significant leukocytosis, but his right leg appeared to be beet red with significant tenderness to touch, increased warmth to touch as well, patient failed basically outpatient oral antibiotic he was started on IV antibiotic in the form of vancomycin and cefepime then he was seen in consultation by infectious disease, and he was switched to Ancef 2 g IV pig gyback every 8 hours. 06/12. Patient seen and examined. Still has swelling of right lower extremity, swelling has slightly improved. Denies any pain. REVIEW OF SYSTEMS: CONSTITUTIONAL: No fever, no malaise,. CARDIOVASCULAR: No chest pain, no palpitations, no syncope. PULMONARY: No shortness of breath, no cough, GASTROINTESTINAL: No diarrhea, no nausea, no vomiting, no abdominal pain. NEUROLOGICAL: No headaches, no weakness, PHYSICAL EXAMINATION: GENERAL: The patient is alert and oriented x3, not in any acute distress. Well developed, well nourished. HEENT: Pupils are round and equally reacting to light. EOMI. No scleral icterus. No conjunctival pallor. Normocephalic, atraumatic. No pharyngeal erythema. No thyromegaly. CARDIOVASCULAR: S1 and S2 present. No murmurs, rubs, or gallops. PULMONARY: Chest is clear to auscultation, no wheezing or crackles. ABDOMEN: Soft, nontender, nondistended, normoactive bowel sounds. No palpable organomegaly. MUSCULOSKELETAL: Right lower extremity erythema seen EXTREMITIES: No cyanosis, clubbing, or pedal edema. NEUROLOGICAL: Gross neurological examination did not reveal any focal deficits. SKIN: No rashes. Assessment and plan 1. Right lower extremity cellulitis with SIRS failed outpatient management. Monitor vital signs monitor CBC-monitor CMP Continue IV cefazolin ID following 2. Acute kidney injury due to poor oral intake of fluid and possible acute tubular necrosis. Continue IV fluid resuscitation in the form of normal saline 3. History of MSSA left knee joint infection status post revision. 4. Paroxysmal atrial fibrillation. Continue patient on metoprolol 100 mg orally twice every day as well as Eliquis 5 mg orally twice every day for life. 5. Coronary artery disease status post Left heart catheterization with PCI of the RCA on 07/30/2020. Continue patient on aspirin 81 mg once every day, continue metoprolol 100 mg orally twice every day. 6. Hypertension and hypertensive cardiovascular disease. Continue metoprolol 100 mg orally twice every day, losartan 100 mg once every day, and amlodipine 10 mg orally once every day, monitor the patient blood pressure very closely. 7. Hyperlipidemia. Continue patient on atorvastatin 80 mg orally once every day 8. Diabetes mellitus type 2.monitor blood sugar level continue sliding scale insulin 9. History of prostate cance status post rotation. Stable at this time. 10. 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 Stable at this time Labs and medication were reviewed.. Continue same treatment. Continue with symptomatic treatment. Resume home medication. Monitor labs and vitals. DVT and GI prophylaxis. Further recommendations as per clinical course of the patient Dictation was produced using [employer] dictation software. please excuse any grammatical, word or spelling errors. Objective - Vital Signs Vital signs: Vital Signs Temp 98.0 F 06/12/23 07:57 Pulse 69 06/12/23 07:57 Resp 16 06/12/23 07:57 BP 147/77 06/12/23 07:57 Pulse Ox 97 06/12/23 07:57 FiO2 Intake & Output 06/11/23 06/12/23 06/12/23 18:59 06:59 18:59 Output Total 3 Balance -3 Output: Urine 3 Other: Voiding Method Toilet Toilet # Voids 2 # Bowel Movements 1 - Labs CBC & Chem 7: 06/12/23 06:50 06/12/23 06:50 Labs: Abnormal Lab Results - Last 24 Hours (Table) 06/11/23 06/11/23 06/12/23 Range/Units 16:52 20:00 06:10 RBC (4.30-5.90) m/uL Plt Count (150-450) k/uL Chloride (98-107) mmol/L Carbon Dioxide (22-30) mmol/L BUN (9-20) mg/dL Creatinine (0.66-1.25) mg/dL Glucose (74-99) mg/dL POC Glucose (mg/dL) 142 H 126 H 123 H (70-110) mg/dL AST (17-59) U/L ALT (4-49) U/L 06/12/23 06/12/23 06/12/23 Range/Units 06:50 06:50 11:32 RBC 4.28 L (4.30-5.90) m/uL Plt Count 104 L (150-450) k/uL Chloride 110 H (98-107) mmol/L Carbon Dioxide 18 L (22-30) mmol/L BUN 27 H (9-20) mg/dL Creatinine 1.32 H (0.66-1.25) mg/dL Glucose 124 H (74-99) mg/dL POC Glucose (mg/dL) 111 H (70-110) mg/dL AST 65 H (17-59) U/L ALT 75 H (4-49) U/L Microbiology - Last 24 Hours (Table) 06/10/23 19:48 Blood Culture - Preliminary Blood
[2023-06-12 16:11] LABS: Glucose,Whole Blood 124 mg/dL (70-110)
[2023-06-12] MEDS: INSULIN ASPART (NovoLOG) 100 UNIT/ML VIAL SQ SCH (16:54)
[2023-06-12 20:50] LABS: Glucose,Whole Blood 119 mg/dL (70-110)
[2023-06-13 05:29] LABS: Glucose,Whole Blood 151 mg/dL (70-110)
[2023-06-13 06:36] LABS: ALT 64 U/L (4-49); AST 69 U/L (17-59); African American GFR (CKD) 75 (>60 ml/min/1.73 sqM); Albumin 4.1 g/dL (3.5-5.0); Albumin/Globulin Ratio 1.9; Alkaline Phosphatase 51 U/L (38-126); Anion Gap 12 mmol/L; Blood Urea Nitrogen 24 mg/dL (9-20); Calcium 8.8 mg/dL (8.4-10.2); Carbon Dioxide 15 mmol/L (22-30); Chloride 109 mmol/L (98-107); Globulin 2.2 g/dL; Glucose 142 mg/dL (74-99); Non-African American GFR(CKD) 65 (>60 ml/min/1.73 sqM); Potassium 4.6 mmol/L (3.5-5.1); Sodium 136 mmol/L (137-145); Total Bilirubin 1.4 mg/dL (0.2-1.3); Total Protein 6.3 g/dL (6.3-8.2)
[2023-06-13 09:17] LABS: HCT 43.6 % (39.6-50.0); HGB 14.7 g/dL (13.0-17.0); MCH 32.1 pg (27.0-32.0); MCHC 33.7 g/dL (32.0-37.0); MCV 95.2 FL (80.0-97.0); Mean Platelet Volume 10.2 FL (9.5-12.2); NRBC Per 100 WBC 0 X 10*3/uL (0.00-0.01); Platelet Count 107 X 10*3/uL (140-440); RBC 4.58 X 10*6/uL (4.40-5.60); RDW 12.9 % (11.5-14.5); WBC 3.89 X 10*3/uL (4.50-10.00)
[2023-06-13 11:56] LABS: Glucose,Whole Blood 118 mg/dL (70-110)
--- NOTE | 2023-06-13 12:53 | P.PN ---
Subjective Progress Note Date: 06/13/23 This is a 77-year-old male patient of mine with previous medical history significant for coronary artery disease status post percutaneous coronary intervention and stent placement last one was in 12/13/2019 in the mid RCA at that time he was found to have a totally occluded obtuse marginal one of the LCx, with collaterals from the PDA, hypertension and hypertensive cardiovascular disease, hyperlipidemia, diabetes mellitus type 2, diabetic polyneuropathy, 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 as well as radio frequency ablation, prostate cancer status post radiation therapy, MSSA septic arthritis left knee, patient presented to the emergency department at [facility] June 05, 2023 for increased swelling and redness of the right lower extremity, he had a venous Doppler that was negative for DVT, he did not have any leukocytosis, he did not have any signs of SIRS, patient was started on oral antibiotic in the form of cephalexin 500 mg orally 4 times every day and Bactrim double strength twice a day for 10 days, patient was supposed to follow- up with me as an outpatient in a week, patient called me yesterday stated that the right lower extremity is extremely red and pain full to touch with increased swelling in the right foot, he was redirected to go to the ER for evaluation he did not have any significant leukocytosis, but his right leg appeared to be beet red with significant tenderness to touch, increased warmth to touch as well, patient failed basically outpatient oral antibiotic he was started on IV antibiotic in the form of vancomycin and cefepime then he was seen in consultation by infectious disease, and he was switched to Ancef 2 g IV pig gyback every 8 hours. 06/12. Patient seen and examined. Still has swelling of right lower extremity, swelling has slightly improved. Denies any pain. 06/13. Patient seen and examined. States redness of right leg has improved. Denies any any pain, swelling is also improved REVIEW OF SYSTEMS: CONSTITUTIONAL: No fever, no malaise,. CARDIOVASCULAR: No chest pain, no palpitations, no syncope. PULMONARY: No shortness of breath, no cough, GASTROINTESTINAL: No diarrhea, no nausea, no vomiting, no abdominal pain. NEUROLOGICAL: No headaches, no weakness, PHYSICAL EXAMINATION: GENERAL: The patient is alert and oriented x3, not in any acute distress. Well developed, well nourished. HEENT: Pupils are round and equally reacting to light. EOMI. No scleral icterus. No conjunctival pallor. Normocephalic, atraumatic. No pharyngeal erythema. No thyromegaly. CARDIOVASCULAR: S1 and S2 present. No murmurs, rubs, or gallops. PULMONARY: Chest is clear to auscultation, no wheezing or crackles. ABDOMEN: Soft, nontender, nondistended, normoactive bowel sounds. No palpable organomegaly. MUSCULOSKELETAL: Right lower extremity erythema improving EXTREMITIES: No cyanosis, clubbing, or pedal edema. NEUROLOGICAL: Gross neurological examination did not reveal any focal deficits. SKIN: No rashes. Assessment and plan 1. Right lower extremity cellulitis with SIRS failed outpatient management. Monitor vital signs monitor CBC -monitor CMP Continue IV cefazolin ID following 2. Acute kidney injury due to poor oral intake of fluid and possible acute tubular necrosis. Monitoring renal functions, DC fluids 3. History of MSSA left knee joint infection status post revision. 4. Paroxysmal atrial fibrillation. Continue patient on metoprolol 100 mg orally twice every day as well as Eliquis 5 mg orally twice every day for life. 5. Coronary artery disease status post Left heart catheterization with PCI of the RCA on 07/30/2020. Continue patient on aspirin 81 mg once every day, co ntinue metoprolol 100 mg orally twice every day. 6. Hypertension and hypertensive cardiovascular disease. Continue metoprolol 100 mg orally twice every day, losartan 100 mg once every day, and amlodipine 10 mg orally once every day, monitor the patient blood pressure very closely. 7. Hyperlipidemia. Continue patient on atorvastatin 80 mg orally once every day 8. Diabetes mellitus type 2.monitor blood sugar level continue sliding scale insulin 9. History of prostate cance status post rotation. Stable at this time. 10. 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 Stable at this time Labs and medication were reviewed.. Continue same treatment. Continue with symptomatic treatment. Resume home medication. Monitor labs and vitals. DVT and GI prophylaxis. Further recommendations as per clinical course of the patient Dictation was produced using [employer] software. please excuse any grammatical, word or spelling errors. Objective - Vital Signs Vital signs: Vital Signs Temp 98.0 F 06/13/23 08:00 Pulse 66 06/13/23 08:00 Resp 17 06/13/23 08:00 BP 126/69 06/13/23 08:00 Pulse Ox 94 L 06/13/23 08:00 FiO2 Intake & Output 06/12/23 06/13/23 06/13/23 18:59 06:59 18:59 Other: Voiding Method Toilet # Voids 4 3 - Labs CBC & Chem 7: 06/13/23 05:44 06/13/23 05:44 Labs: Abnormal Lab Results - Last 24 Hours (Table) 06/12/23 06/12/23 06/13/23 Range/Units 16:10 20:49 05:28 WBC (4.50-10.00) X 10*3/uL MCH (27.0-32.0) pg Plt Count (140-440) X 10*3/uL Sodium (137-145) mmol/L Chloride (98-107) mmol/L Carbon Dioxide (22-30) mmol/L BUN (9-20) mg/dL Glucose (74-99) mg/dL POC Glucose (mg/dL) 124 H 119 H 151 H (70-110) mg/dL Hemoglobin A1c (<=6.0) % Total Bilirubin (0.2-1.3) mg/dL AST (17-59) U/L ALT (4-49) U/L 06/13/23 06/13/23 06/13/23 Range/Units 05:44 05:44 05:44 WBC 3.89 L (4.50-10.00) X 10*3/uL MCH 32.1 H (27.0-32.0) pg Plt Count 107 L (140-440) X 10*3/uL Sodium 136 L (137-145) mmol/L Chloride 109 H (98-107) mmol/L Carbon Dioxide 15 L (22-30) mmol/L BUN 24 H (9-20) mg/dL Glucose 142 H (74-99) mg/dL POC Glucose (mg/dL) (70-110) mg/dL Hemoglobin A1c 7.6 H (<=6.0) % Total Bilirubin 1.4 H (0.2-1.3) mg/dL AST 69 H (17-59) U/L ALT 64 H (4-49) U/L 06/13/23 Range/Units 11:54 WBC (4.50-10.00) X 10*3/uL MCH (27.0-32.0) pg Plt Count (140-440) X 10*3/uL Sodium (137-145) mmol/L Chloride (98-107) mmol/L Carbon Dioxide (22-30) mmol/L BUN (9-20) mg/dL Glucose (74-99) mg/dL POC Glucose (mg/dL) 118 H (70-110) mg/dL Hemoglobin A1c (<=6.0) % Total Bilirubin (0.2-1.3) mg/dL AST (17-59) U/L ALT (4-49) U/L Microbiology - Last 24 Hours (Table) 06/10/23 19:48 Blood Culture - Preliminary Blood
--- NOTE | 2023-06-13 14:42 | P.PN ---
Subjective Progress Note Date: 06/13/23 Principal diagnosis: Reason for follow-up is right lower extremity cellulitis Patient is a 77-year-old male with a past medical history significant for atrial fibrillation coronary disease diabetes mellitus hypertension hyperlipidemia presented to the hospital for increasing swelling redness of the right lower extremity did have a right leg Doppler on 05 June was negative for DVT failing outpatient or antibiotic therapy. On today's evaluation that is 06/13/2023, Patient is afebrile ,patient is currently on room air and denies having any shortness of breath, the patient denies any chest pain or cough, the patient denies any nausea vomiting did not have any abdominal pain and no diarrhea, pain or swelling to the right lower extremity has decreased in intensity. Patient white count is 3.89, creatinine 1.09 liver isms mildly elevated Objective - Vital Signs Vital signs: Vital Signs Temp 98.0 F 06/13/23 08:00 Pulse 66 06/13/23 08:00 Resp 17 06/13/23 08:00 BP 126/69 06/13/23 08:00 Pulse Ox 94 L 06/13/23 08:00 FiO2 Intake & Output 06/12/23 06/13/23 06/13/23 18:59 06:59 18:59 Other: Voiding Method Toilet # Voids 4 3 - Exam GENERAL DESCRIPTION: An elderly male lying in bed in no distress RESPIRATORY SYSTEM: Unlabored breathing , decreased breath sounds at bases HEART: S1 S2 regular rate and rhythm , ABDOMEN: Soft , no tenderness EXTREMITIES: Right leg swelling redness slightly decreased - Labs CBC & Chem 7: 06/13/23 05:44 06/13/23 05:44 Labs: Abnormal Lab Results - Last 24 Hours (Table) 06/12/23 06/12/23 06/13/23 Range/Units 16:10 20:49 05:28 WBC (4.50-10.00) X 10*3/uL MCH (27.0-32.0) pg Plt Count (140-440) X 10*3/uL Sodium (137-145) mmol/L Chloride (98-107) mmol/L Carbon Dioxide (22-30) mmol/L BUN (9-20) mg/dL Glucose (74-99) mg/dL POC Glucose (mg/dL) 124 H 119 H 151 H (70-110) mg/dL Hemoglobin A1c (<=6.0) % Total Bilirubin (0.2-1.3) mg/dL AST (17-59) U/L ALT (4-49) U/L 06/13/23 06/13/23 06/13/23 Range/Units 05:44 05:44 05:44 WBC 3.89 L (4.50-10.00) X 10*3/uL MCH 32.1 H (27.0-32.0) pg Plt Count 107 L (140-440) X 10*3/uL Sodium 136 L (137-145) mmol/L Chloride 109 H (98-107) mmol/L Carbon Dioxide 15 L (22-30) mmol/L BUN 24 H (9-20) mg/dL Glucose 142 H (74-99) mg/dL POC Glucose (mg/dL) (70-110) mg/dL Hemoglobin A1c 7.6 H (<=6.0) % Total Bilirubin 1.4 H (0.2-1.3) mg/dL AST 69 H (17-59) U/L ALT 64 H (4-49) U/L Microbiology - Last 24 Hours (Table) 06/10/23 19:48 Blood Culture - Preliminary Blood Assessment and Plan (1) Failure of outpatient treatment Current Visit: Yes Status: Acute Code(s): Z78.9 - OTHER SPECIFIED HEALTH STATUS SNOMED Code(s): 064341986 (2) Cellulitis of right lower extremity Current Visit: Yes Status: Acute Code(s): L03.115 - CELLULITIS OF RIGHT LOWER LIMB SNOMED Code(s): 85566120844669342 (3) Elevated liver enzymes Current Visit: Yes Status: Acute Code(s): R74.8 - ABNORMAL LEVELS OF OTHER SERUM ENZYMES SNOMED Code(s): 892338214 Plan: 1patient presented hospital with increasing swelling and redness to the right lower extremity failing outpatient oral Keflex and Bactrim DS therapy likely because of the burden of disease patient did have Doppler on 06/05/2023 that was negative for DVT features are mostly of streptococcal cellulitis rather than MRSA with no evidence of any purulent drainage or wound 2 patient to continue with cefazolin 2 g every 8 hours, along with Praneeth wrap to the leg from just above the toe to keep the swelling down 3also noticed to have elevated liver enzyme will check ultrasound and hepatitis panel Dictation was produced using [employer] dictation software. please excuse any grammatical, word or spelling errors. Time with Patient: Less than 30
[2023-06-13 17:03] LABS: Glucose,Whole Blood 169 mg/dL (70-110)
[2023-06-13 20:46] LABS: Glucose,Whole Blood 151 mg/dL (70-110)
[2023-06-14 05:30] LABS: Glucose,Whole Blood 121 mg/dL (70-110)
[2023-06-14 05:51] LABS: ALT 47 U/L (4-49); AST 59 U/L (17-59); African American GFR (CKD) 79 (>60 ml/min/1.73 sqM); Albumin 3.9 g/dL (3.5-5.0); Albumin/Globulin Ratio 1.8; Alkaline Phosphatase 48 U/L (38-126); Anion Gap 7 mmol/L; Blood Urea Nitrogen 24 mg/dL (9-20); Carbon Dioxide 21 mmol/L (22-30); Chloride 109 mmol/L (98-107); Globulin 2.2 g/dL; Glucose 132 mg/dL (74-99); Non-African American GFR(CKD) 68 (>60 ml/min/1.73 sqM); Potassium 4.3 mmol/L (3.5-5.1); Sodium 137 mmol/L (137-145); Total Protein 6.1 g/dL (6.3-8.2)
[2023-06-14 08:30] LABS: HCT 39.8 % (39.6-50.0); HGB 13.8 g/dL (13.0-17.0); MCH 32.7 pg (27.0-32.0); MCHC 34.7 g/dL (32.0-37.0); MCV 94.3 FL (80.0-97.0); Mean Platelet Volume 10.7 FL (9.5-12.2); NRBC Per 100 WBC 0 X 10*3/uL (0.00-0.01); Platelet Count 117 X 10*3/uL (140-440); RBC 4.22 X 10*6/uL (4.40-5.60); RDW 12.8 % (11.5-14.5); WBC 3.61 X 10*3/uL (4.50-10.00)
[2023-06-14 08:49] LABS: Hepatitis A Antibody IgM Nonreactive; Hepatitis B Core IgM Nonreactive; Hepatitis B Surface Antigen Nonreactive; Hepatitis C IgG Antibody Nonreactive
--- NOTE | 2023-06-14 08:55 | US ---
EXAMINATION TYPE: US abdomen limited DATE OF EXAM: 06/14/2023 COMPARISON: NONE CLINICAL INDICATION: Male, 77 years old with history of Elevated liver enzymes; Elevated liver enzyme s TECHNIQUE: Multiple sonographic images of the right upper quadrant are obtained. FINDINGS: EXAM MEASUREMENTS: Liver Length: 19.7 cm Right Kidney: 11.2 x 5.1 x 4.5 cm CREDIT REFERENCE CLERK NOTES: Technical limitations due to patient's body habitus and large amount of overlyin g bowel gas Pancreas: Obscured by bowel gas Liver: limited evaluation, unable to penetrate, attenuating Gallbladder: Obscured by overlying bowel gas Evidence for sonographic Henderson's sign: no CBD: Obscured by overlying bowel gas Right Kidney: anechoic lesion upper pole = 2.6 x 2.0 x 1.7cm IMPRESSION: 1. Hepatomegaly with moderate fatty infiltration of liver. 2. Right renal cyst.
[2023-06-14] MEDS: PATIENT'S OWN (Semaglutide [Ozempic] 1 MG/0.75 ML Each) SQ SCH (10:20)
[2023-06-14 11:59] LABS: Glucose,Whole Blood 146 mg/dL (70-110)
--- NOTE | 2023-06-14 12:11 | P.PN ---
Subjective Progress Note Date: 06/14/23 Principal diagnosis: Reason for follow-up is right lower extremity cellulitis Patient is a 77-year-old male with a past medical history significant for atrial fibrillation coronary disease diabetes mellitus hypertension hyperlipidemia presented to the hospital for increasing swelling redness of the right lower extremity did have a right leg Doppler on 05 June was negative for DVT failing outpatient or antibiotic therapy. On today's evaluation that is 06/14/2023,the patient denies any fever or any chills, patient is breathing comfortably on room air, the patient denies chest pain shortness of breath and no significant cough, patient denies abdominal pain, no nausea vomiting or diarrhea. Patient mention improvement in the right lower extremity swelling redness and pain. Patient did have white count of 3.61, creatinine 1.05 hepatitis panel negative blood culture negative Objective - Vital Signs Vital signs: Vital Signs Temp 97.9 F 06/14/23 07:36 Pulse 70 06/14/23 07:36 Resp 18 06/14/23 07:36 BP 138/77 06/14/23 07:36 Pulse Ox 96 06/14/23 07:36 FiO2 Intake & Output 06/13/23 06/14/23 06/14/23 18:59 06:59 18:59 Other: Voiding Method Toilet # Voids 3 4 - Exam GENERAL DESCRIPTION: An elderly male lying in bed in no distress RESPIRATORY SYSTEM: Unlabored breathing , decreased breath sounds at bases HEART: S1 S2 regular rate and rhythm , ABDOMEN: Soft , no tenderness EXTREMITIES: Right leg swelling redness slightly decreased - Labs CBC & Chem 7: 06/14/23 05:15 06/14/23 05:15 Labs: Abnormal Lab Results - Last 24 Hours (Table) 06/13/23 06/13/23 06/14/23 Range/Units 17:02 20:45 05:15 WBC (4.50-10.00) X 10*3/uL RBC (4.40-5.60) X 10*6/uL MCH (27.0-32.0) pg Plt Count (140-440) X 10*3/uL Chloride 109 H (98-107) mmol/L Carbon Dioxide 21 L (22-30) mmol/L BUN 24 H (9-20) mg/dL Glucose 132 H (74-99) mg/dL POC Glucose (mg/dL) 169 H 151 H (70-110) mg/dL Total Protein 6.1 L (6.3-8.2) g/dL 06/14/23 06/14/23 06/14/23 Range/Units 05:15 05:28 11:58 WBC 3.61 L (4.50-10.00) X 10*3/uL RBC 4.22 L (4.40-5.60) X 10*6/uL MCH 32.7 H (27.0-32.0) pg Plt Count 117 L (140-440) X 10*3/uL Chloride (98-107) mmol/L Carbon Dioxide (22-30) mmol/L BUN (9-20) mg/dL Glucose (74-99) mg/dL POC Glucose (mg/dL) 121 H 146 H (70-110) mg/dL Total Protein (6.3-8.2) g/dL Microbiology - Last 24 Hours (Table) 06/10/23 19:48 Blood Culture - Preliminary Blood Assessment and Plan (1) Failure of outpatient treatment Current Visit: Yes Status: Acute Code(s): Z78.9 - OTHER SPECIFIED HEALTH STATUS SNOMED Code(s): 871726511 (2) Cellulitis of right lower extremity Current Visit: Yes Status: Acute Code(s): L03.115 - CELLULITIS OF RIGHT LOWER LIMB SNOMED Code(s): 12502513611522693 (3) Elevated liver enzymes Current Visit: Yes Status: Acute Code(s): R74.8 - ABNORMAL LEVELS OF OTHER SERUM ENZYMES SNOMED Code(s): 873568875 Plan: 1patient presented hospital with increasing swelling and redness to the right lower extremity failing outpatient oral Keflex and Bactrim DS therapy likely because of the burden of disease patient did have Doppler on 06/05/2023 that was negative for DVT features are mostly of streptococcal cellulitis rather than M RSA with no evidence of any purulent drainage or wound 2 patient has shown clinical improvement on cefazolin to finish therapy with oral Keflex x 7 days along with Praneeth wrap to keep swelling down 3also noticed to have elevated liver enzyme, ultrasound did show some hepatomegaly hepatitis panel negative and the patient liver enzymes have normalized Dictation was produced using [employer] dictation software. please excuse any grammatical, word or spelling errors. Time with Patient: Less than 30
--- NOTE | 2023-06-14 13:15 | P.DS ---
Providers Date of admission: 06/10/23 23:45 Expected date of discharge: 06/14/23 Attending physician: German Astudillo Consults: 06/10/23 23:45 Consult Physician Urgent Consulting Provider: Yessy Strickland Consult Reason/Comments: right lower extremity cellulitis Do you want consulting provider notified?: Yes Primary care physician: German Astudillo Hospital Course: Discharge diagnoses; 1. Right lower extremity cellulitis with SIRS failed outpatient management. Discharge on Augmentin for 1 week. 2. Acute kidney injury due to poor oral intake of fluid and possible acute tubular necrosis. Resolved 3. History of MSSA left knee joint infection status post revision. 4. Paroxysmal atrial fibrillation. Continue patient on metoprolol 100 mg orally twice every day as well as Eliquis 5 mg orally twice every day for life. 5. Coronary artery disease status post Left heart catheterization with PCI of the RCA on 07/30/2020. Continue patient on aspirin 81 mg once every day, continu e metoprolol 100 mg orally twice every day. 6. Hypertension and hypertensive cardiovascular disease. Continue metoprolol 100 mg orally twice every day, losartan 100 mg once every day, and amlodipine 10 mg orally once every day, monitor the patient blood pressure very closely. 7. Hyperlipidemia. Continue patient on atorvastatin 80 mg orally once every day 8. Diabetes mellitus type 2.monitor blood sugar level continue sliding scale insulin 9. History of prostate cance status post rotation. Stable at this time. 10. 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 Stable at this time Hospital course; This is a 77-year-old male patient of [facility] with previous medical history significant for coronary artery disease status post percutaneous coronary intervention and stent placement last one was in 12/13/2019 in the mid RCA at that time he was found to have a totally occluded obtuse marginal one of the LCx, with collaterals from the PDA, hypertension and hypertensive cardiovascular disease, hyperlipidemia, diabetes mellitus type 2, diabetic polyneuropathy, 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 as well as radio frequency ablation, prostate cancer status post radiation therapy, MSSA septic arthritis left knee, patient presented to the emergency department at [facility] June 05, 2023 for increased swelling and redness of the right lo wer extremity, he had a venous Doppler that was negative for DVT, he did not have any leukocytosis, he did not have any signs of SIRS, patient was started on oral antibiotic in the form of cephalexin 500 mg orally 4 times every day and Bactrim double strength twice a day for 10 days, patient was supposed to follow- up with me as an outpatient in a week, patient called me yesterday stated that the right lower extremity is extremely red and pain full to touch with increased swelling in the right foot, he was redirected to go to the ER for evaluation he did not have any significant leukocytosis, but his right leg appeared to be beet red with significant tenderness to touch, increased warmth to touch as well, patient failed basically outpatient oral antibiotic he was started on IV antibiotic in the form of vancomycin and cefepime then he was seen in consultation by infectious disease, and he was switched to Ancef 2 g IV piggyback every 8 hours. 06/12. Patient seen and examined. Still has swelling of right lower extremity, swelling has slightly improved. Denies any pain. 06/13. Patient seen and examined. States redness of right leg has improved. Denies any any pain, swelling is also improved 06/14. Patient seen examined. Discussed with ID, recommend discharge on oral Augmentin for 1 week. PHYSICAL EXAMINATION: GENERAL: The patient is alert and oriented x3, not in any acute distress. Well developed, well nourished. HEENT: Pupils are round and equally reacting to light. EOMI. No scleral icterus. No conjunctival pallor. Normocephalic, atraumatic. No pharyngeal erythema. No thyromegaly. CARDIOVASCULAR: S1 and S2 present. No murmurs, rubs, or gallops. PULMONARY: Chest is clear to auscultation, no wheezing or crackles. ABDOMEN: Soft, nontender, nondistended, normoactive bowel sounds. No palpable organomegaly. MUSCULOSKELETAL: No joint swelling or deformity. EXTREMITIES: No cyanosis, clubbing, or pedal edema. NEUROLOGICAL: Gross neurological examination did not reveal any focal deficits. SKIN: No rashes. Dictation was produced using [employer] dictation software. please excuse any grammatical, word or spelling errors. Patient Condition at Discharge: Stable Plan - Discharge Summary Discharge Rx Participant: No New Discharge Prescriptions: New Amoxic-Pot Clav 875-125Mg [Augmentin 875-125] 1 tab PO BID 7 Days #14 tab Continue Aspirin EC [Ecotrin Low Dose] 81 mg PO DAILY Apixaban [Eliquis] 5 mg PO BID tab amLODIPine [Norvasc] 10 mg PO DAILY Metoprolol Tartrate [Lopressor] 100 mg PO BID Dapagliflozin Propanediol [Farxiga] 10 mg PO DAILY Atorvastatin [Lipitor] 80 mg PO HS Nitroglycerin Sl Tabs [Nitrostat] 0.4 mg SUBLINGUAL Q5M PRN tab PRN Reason: Chest Pain Albuterol Inhaler [Ventolin Hfa Inhaler] 2 puff INHALATION RT-Q6H PRN PRN Reason: Shortness Of Breath Losartan Potassium 100 mg PO DAILY Semaglutide [Ozempic] 1 mg SQ MO Discontinued Sulfamethox-Tmp 800-160Mg [Bactrim Ds] 1 tab PO Q12HR Cephalexin [Keflex] 500 mg PO Q6HR #40 cap Discharge Medication List Atorvastatin [Lipitor] 80 mg PO HS 09/01/20 [History] Aspirin EC [Ecotrin Low Dose] 81 mg PO DAILY 09/11/21 [History] Apixaban [Eliquis] 5 mg PO BID tab 09/22/21 [Rx] Nitroglycerin Sl Tabs [Nitrostat] 0.4 mg SUBLINGUAL Q5M PRN tab 09/22/21 [Rx] Albuterol Inhaler [Ventolin Hfa Inhaler] 2 puff INHALATION RT-Q6H PRN 06/10/23 [History] Dapagliflozin Propanediol [Farxiga] 10 mg PO DAILY 06/10/23 [History] Losartan Potassium 100 mg PO DAILY 06/10/23 [History] Metoprolol Tartrate [Lopressor] 100 mg PO BID 06/10/23 [History] Semaglutide [Ozempic] 1 mg SQ MO 06/10/23 [History] amLODIPine [Norvasc] 10 mg PO DAILY 06/10/23 [History] Amoxic-Pot Clav 875-125Mg [Augmentin 875-125] 1 tab PO BID 7 Days #14 tab 06/14/23 [Rx] Follow up Appointment(s)/Referral(s): German Astudillo MD [Primary Care Provider] - 1-2 days Yessy Strickland MD [STAFF PHYSICIAN] - 1 Week Discharge Disposition: HOME SELF-CARE
[2023-06-14 15:12] VITALS: BP 141/78; PULSE 67; RESP 17; TEMP 97.7
--- NOTE | 2023-06-14 16:13 | CDI ---
Documentation Clarification Form Date: 06/14/2023 04:12:48 PM From: Caitlin Vasquez RN, CCDS Phone: [phone] Admit Date: 06/10/2023 11:45:00 PM Patient Name: Burt Berkowitz Visit Number: [id number] Discharge Date: 06/14/2023 03:42:00 PM ATTENTION: The Clinical Documentation Specialists (CDI) and [facility] Coding Staff appreciate your assistance in clarifying documentation. Please respond to the clarification below the line at the bottom and electronically sign. The CDI & [facility] Coding staff will review the response and follow-up if needed. Please note: Queries are made part of the Legal Health Record. If you have any questions, please contact the author of this message via ITS. Dr. Michel Martins Right lower extremity Cellulitis is documented in the H/P and subsequent progress notes and the patient has history of Diabetes mellitus type 2. Additional clarification regarding the type of cellulitis is requested. 05/21 VS 110/68 73 16 98.7 96% RA 06/10 Labs WBC 5.6 PLT 141 CL108 CO2 18 BUN 33 CR 1.89 GFR 33 06/11 ID: patient presented hospital with increasing swelling and redness to the right lower extremity failing outpatient oral Keflex and Bactrim DS therapy likely because of the burden of disease. Features are mostly of streptococcal cellulitis History/risk factors: Atrial Fibrillation, Coronary Artery Disease, angina, CVA/TIA, Diabetes Mellitus, GERD/Reflux, Hyperlipidemia, Prostate Cancer- Clinical Indicators: 77-year-old male presented to the ED June 05, 2023 for increased swelling and redness of the right lower negative for DVT. Sent on oral antibiotics. Returned 06/10/23 with increasing redness lower extremity ruled in for cellulitis. Treatment: Vancomycin 1,750 MG IVPB Once PTD Cefazolin 2 GM Q 8 HRS Praneeth wrap to the leg from just above the toe to keep the swelling down. Please clarify the etiology of the right lower extremity cellulitis, if known: [ x ] Right lower extremity Cellulitis is a diabetic skin complication. [ ] Right lower extremity Cellulitis is not a diabetic skin complication. [ ] Other, please specify: [ ] Unable to determine (Template Last Revised: April 2022) MTDD
== END 2023-06-14 15:42 | disposition home or self-care (01) | DRG 638 ==
LOC: EC 19:36 → 4SSUR 23:45
PROVIDERS: ADMIT Internal Medicine; ATTEND Internal Medicine
DX: E11.628 Type 2 diabetes mellitus with other skin complications (principal); L03.115 Cellulitis of right lower limb; N17.0 Acute kidney failure with tubular necrosis; E11.42 Type 2 diabetes mellitus with diabetic polyneuropathy; E78.5 Hyperlipidemia, unspecified; F17.210 Nicotine dependence, cigarettes, uncomplicated; I11.9 Hypertensive heart disease without heart failure; I48.0 Paroxysmal atrial fibrillation; I25.82 Chronic total occlusion of coronary artery; I25.2 Old myocardial infarction; M47.812 Spondylosis without myelopathy or radiculopathy, cervical region; Z79.01 Long term (current) use of anticoagulants; Z79.4 Long term (current) use of insulin; Z79.84 Long term (current) use of oral hypoglycemic drugs; I25.10 Atherosclerotic heart disease of native coronary artery without angina pectoris; Z79.82 Long term (current) use of aspirin; Z79.899 Other long term (current) drug therapy; Z82.49 Family history of ischemic heart disease and other diseases of the circulatory system; Z85.46 Personal history of malignant neoplasm of prostate; Z86.14 Personal history of Methicillin resistant Staphylococcus aureus infection; Z86.19 Personal history of other infectious and parasitic diseases; Z92.3 Personal history of irradiation; Z95.5 Presence of coronary angioplasty implant and graft; Z96.641 Presence of right artificial hip joint; Z96.652 Presence of left artificial knee joint; Z98.1 Arthrodesis status; K21.9 Gastro-esophageal reflux disease without esophagitis; Z86.73 Personal history of transient ischemic attack (TIA), and cerebral infarction without residual deficits; K59.00 Constipation, unspecified; M47.816 Spondylosis without myelopathy or radiculopathy, lumbar region; M79.604 Pain in right leg; N52.9 Male erectile dysfunction, unspecified; R20.0 Anesthesia of skin
CPT/HCPCS: 36415; 76705; 80048; 80053; 80074; 83036; 85025; 85027; 85652; 86140; 87040; 96365; 96366; 96368; 99285

== ENCOUNTER → 2024-02-02 | Outpatient (CLI) | payer MEDICARE, BC ==
--- NOTE | 2024-02-02 09:47 | US ---
EXAMINATION TYPE: US abdomen complete DATE OF EXAM: 02/02/2024 COMPARISON: Abdominal ultrasound 06/14/2023, CT abdomen pelvis 09/11/2021 CLINICAL INDICATION: Male, 78 years old with history of K75.9 HEPATITIS; hepatitis TECHNIQUE: Grayscale and color Doppler imaging of the abdomen was performed. FINDINGS: EXAM MEASUREMENTS: Liver Length: 17.5 cm Gallbladder Wall: obscured by attenuating liver CBD: obscured by attenuating liver Spleen: 11.3 cm Right Kidney: 10.9x5.8x5.2 cm Left Kidney: 12.3x7.0x5.5 cm ARTIFICIAL INSEMINATION TECHNICIAN NOTES: Pancreas: Obscured by bowel gas Liver: Increased attenuation, decreased visualization of vessels suggestive of fatty infiltrate Gallbladder: obscured by attenuating liver CBD: obscured by attenuating liver Spleen: wnl Right Kidney: upper pole cystic area again seen: 2.4x2.0x2.1cm, perinephric sweating Left Kidney: perinephric sweating Upper IVC: obscured by liver attenuation Abd Aorta: wnl, as best visualized The liver is diffusely echogenic. This appearance limits evaluation for small intrahepatic masses. No overt surface nodularity. Gallbladder and common bile duct are not visualized. The upper IVC is nonv isualized. The visualized aorta are within normal limits. The pancreas is obscured by overlying serge l gas. The spleen is unremarkable. Kidneys are symmetric and free of hydronephrosis. Perinephric swe ating. Cyst within the upper pole of the right kidney again seen. IMPRESSION: 1. Moderate hepatic steatosis. 2. Stable right renal cyst. 3. Nonvisualization of the gallbladder, common bile duct, pancreas and upper IVC secondary to overly ing bowel gas. [facility], , 02/02/2024 9:44 AM
== END | disposition home or self-care (01) ==
LOC: RADUSWWP 08:19
PROVIDERS: ATTEND Internal Medicine
DX: N28.1 Cyst of kidney, acquired (principal); K76.0 Fatty (change of) liver, not elsewhere classified; K75.9 Inflammatory liver disease, unspecified; R93.2 Abnormal findings on diagnostic imaging of liver and biliary tract
CPT/HCPCS: 74240; 76700

== ENCOUNTER → 2024-02-03 | Outpatient (CLI) | payer MEDICARE, BC ==
--- NOTE | 2024-02-03 09:21 | FL ---
EXAMINATION TYPE: FL UGI w esophagus DATE OF EXAM: 02/03/2024 COMPARISON: NONE HISTORY: Patient TECHNIQUE: A single/double contrast UGI study is performed. A total of 1 minute and 52 seconds of f luoroscopic time was utilized during procedure and 39 images obtained. Total dose area product (DAP) in uGy*m?, mGy*cm? (or similar): Not provided. FINDINGS: City Bus Driver image of the abdomen shows multilevel degenerative changes of the vertebral canal.. There is delay in oral clearance. There was transient penetration but no evidence of aspiration. No sizable hiatal hernia. Mild gastroesophageal reflux. The stomach shows normal distensibility, peristalsis, and mucosal folds. No evidence of any mass or ulcer disease. No significant gastroesophageal reflux was seen during real time performance of this study. The duodenal bulb, sweep, and proximal small bowel loops are unremarkable. IMPRESSION: 1. Penetration with delayed oral clearance of contrast. No hilary aspiration. Recommend modified bariu m swallow to assess the swallowing mechanism.. 2. Mild gastroesophageal reflux. Whitten with EGD as chronically warranted. [facility], , 02/03/2024 9:19 AM
== END | disposition home or self-care (01) ==
LOC: RADXRMAIN 08:19
PROVIDERS: ATTEND Internal Medicine
DX: R13.12 Dysphagia, oropharyngeal phase (principal); K21.9 Gastro-esophageal reflux disease without esophagitis
CPT/HCPCS: 74240

== ENCOUNTER 2024-05-03 02:26 | Observation (INO) | payer MEDICARE, BC ==
[2024-05-03] MEDS ORDERED: VANCOMYCIN IV PER PHARMACY 1 EACH MISC MISCELLANE PRN (02:32)
--- NOTE | 2024-05-03 02:38 | ED ---
Extremity Problem HPI - General Stated complaint: Lower extremity pain Source: RN notes reviewed, old records reviewed Mode of arrival: EMS Limitations: no limitations - History of Present Illness Initial comments: This is a 78-year-old male to the ER for evaluation patient missed doctors appointment today. Has severe right lower extremity pain unable to walk on the leg secondary to pain and significant redness and swelling. Patient was told to come to the emergency department by management psychologist Complaint: extremity pain, extremity swelling -: days(s) Location: right, lower extremity -: Yes arthralgia Radiation: proximal, distal Severity scale (1-10): 4 Quality: aching Consistency: constant Worsens with: nothing Associated Symptoms: myalgias - Related Data Home Medications Medication Instructions Recorded Confirmed Atorvastatin [Lipitor] 80 mg PO HS 09/01/20 05/03/24 Aspirin EC [Ecotrin Low Dose] 81 mg PO DAILY 09/11/21 05/03/24 Dapagliflozin Propanediol [Farxiga] 10 mg PO DAILY 06/10/23 05/03/24 Losartan Potassium 100 mg PO DAILY 06/10/23 05/03/24 Metoprolol Tartrate [Lopressor] 100 mg PO BID 06/10/23 05/03/24 Acetaminophen Tab [Tylenol] 500 mg PO Q6H PRN 05/03/24 05/03/24 Ezetimibe [Zetia] 10 mg PO DAILY 05/03/24 05/03/24 HYDROcodone/APAP 5-325MG [[place] 1 tab PO BID PRN 05/03/24 05/03/24 5-325] Insulin Glargine/Lixisenatide 16 units SQ PC-BRKFST 05/03/24 05/03/24 [[place] 100 Unit-33 Mcg/ml Pen] Previous Rx's Medication Instructions Recorded Apixaban [Eliquis] 5 mg PO BID tab 09/22/21 Nitroglycerin Sl Tabs [Nitrostat] 0.4 mg SUBLINGUAL Q5M PRN tab 09/22/21 Cephalexin [Keflex] 500 mg PO Q6HR 10 Days #40 cap 05/05/24 SILVER sulfADIAZINE CREAM 1 applic TOPICAL DAILY #25 gm 05/05/24 [Silvadene Cream] Allergies Allergy/AdvReac Type Severity Reaction Status Date / Time No Known Allergies Allergy Verified 05/03/24 07:35 Review of Systems ROS Statement: Those systems with pertinent positive or pertinent negative responses have been documented in the HPI. ROS Other: All systems not noted in ROS Statement are negative. Past Medical History Past Medical History: Atrial Fibrillation, Coronary Artery Disease (CAD), Cancer, Chest Pain / Angina, CVA/TIA, Diabetes Mellitus, GERD/Reflux, Hyperlipidemia, Hypertension, Osteoarthritis (OA), Prostate Disorder Additional Past Medical History / Comment(s): 5 Herniated discs in neck causing headaches & numbness in arm and right lower back and pain and right leg pain. Prostate Cancer- last radiation tx Mar 25-2016 had total of 44 tx. occ constipation, sepsis Hx Last Myocardial Infarction Date:: UNKOWN History of Any Multi-Drug Resistant Organisms: VRE Date of last positivie culture/infection: 09/18/20 MDRO Source:: Wound Past Surgical History: Adenoidectomy, Heart Catheterization, Heart Catheterization With Stent, Joint Replacement, Orthopedic Surgery, Tonsillectomy Additional Past Surgical History / Comment(s): PROSTATE BX., LT. KNEE ARTHROSCOPY X 2, CERVICAL FUSIONS, COLONOSCOPY, ÁNGEL. CATARTACTS.Pain Procedures , rt radio frequency procedures. , total 3 heart stents, hemorrhoidectomy,heart cath August 2017-lt knee replacement. Stent replacement , hip Past Anesthesia/Blood Transfusion Reactions: No Reported Reaction Additional Past Anesthesia/Blood Transfusion Reaction / Comment(s): doesn't like enclosed tight spaces Date of Last Stent Placement:: 04/24/17 Past Psychological History: No Psychological Hx Reported Smoking Status: Former smoker Past Alcohol Use History: None Reported Past Drug Use History: None Reported - Past Family History Father Additional Family Medical History / Comment(s): Father at age 49 from coronary artery disease. Brother(s) Additional Family Medical History / Comment(s): Patient has one brother with history of smoking and no other major medical problems. Patient does not have any sisters. Daughter(s) Additional Family Medical History / Comment(s): Patient has one daughter with history of muscular dystrophy and of pneumonia. Son(s) Family Medical History: No Reported History Additional Family Medical History / Comment(s): Patient has one son with no major medical problems. Mother Family Medical History: Cancer Additional Family Medical History / Comment(s): Mother at age 81 from uterine cancer with metastatic disease. General Exam General appearance: alert, in no apparent distress Head exam: Present: atraumatic, normocephalic, normal inspection Eye exam: Present: normal appearance, PERRL, EOMI. Absent: scleral icterus, conjunctival injection, periorbital swelling ENT exam: Present: normal exam, mucous membranes moist Neck exam: Present: normal inspection. Absent: tenderness, meningismus, lymphadenopathy Respiratory exam: Present: normal lung sounds bilaterally. Absent: respiratory distress, wheezes, rales, rhonchi, stridor Cardiovascular Exam: Present: regular rate, normal rhythm, normal heart sounds. Absent: systolic murmur, diastolic murmur, rubs, gallop, clicks GI/Abdominal exam: Present: soft, normal bowel sounds. Absent: distended, tenderness, guarding, rebound, rigid Extremities exam: Present: normal inspection, full ROM, normal capillary refill. Absent: tenderness, pedal edema, joint swelling, calf tenderness Back exam: Present: normal inspection Neurological exam: Present: alert, oriented X3, CN II-XII intact Psychiatric exam: Present: normal affect, normal mood Skin exam: Present: warm, dry, intact, normal color. Absent: rash Course Vital Signs 05/03/24 05/03/24 05/03/24 02:30 04:21 07:41 Temperature 97.8 F 97.3 F L Pulse Rate 73 63 83 Respiratory 18 17 16 Rate Blood Pressure 155/84 145/77 154/103 O2 Sat by Pulse 97 96 96 Oximetry 05/03/24 05/03/24 05/03/24 11:35 12:52 13:38 Temperature 97.9 F 98.0 F Pulse Rate 88 79 Respiratory 16 16 Rate Blood Pressure 153/85 164/84 175/87 O2 Sat by Pulse 97 98 Oximetry - Reevaluation(s) Reevaluation #1: 05/03/24 02:36 Medical records reviewed Reevaluation #2: 05/03/24 02:36 Symptoms unchanged Reevaluation #3: 05/03/24 02:36 Patient informed of results and questions answered Reevaluation #4: Was pt. sent in by a medical professional or institution (, PA, HVAC TECHNICIAN, urgent care, hospital, or intermediate...) When possible be specific @ -no Did you speak to anyone other than the patient for history (EMS, parent, family, police, friend...)? What history was obtained from this source @ -no Did you review nursing and triage notes (agree or disagree)? Why? @ -agree Are old charts reviewed (outside hosp., previous admission, EMS record, old EKG, old radiological studies, urgent care reports/EKG's, intermediate records)? Report findings @ -yes Differential Diagnosis (chest pain, altered mental status, abdominal pain women, abdominal pain men, vaginal bleeding, weakness, fever, dyspnea, syncope, headache, dizziness, GI bleed, back pain, seizure, CVA, palpatations, mental health, musculoskeletal)? @ -prior EKG interpreted by me (3pts min.). @ -yes X-rays interpreted by me (1pt min.). @ -yes negative for acute disease CT interpreted by me (1pt min.). @ -no U/S interpreted by me (1pt. min.). @ -no What testing was considered but not performed or refused? (CT, X-rays, U/S, labs)? Why? @ -none What meds were considered but not given or refused? Why? @ -none Did you discuss the management of the patient with other professionals (professionals i.e. , PA, HVAC TECHNICIAN, lab, RT, psych nurse, social and political studies professor, navy fighter pilot, teacher, fisheries enforcement officer, case briefer)? Give summary @ -no Was smoking cessation discussed for >3mins.? @ -no Was critical care preformed (if so, how long)? @ -no Were there social determinants of health that impacted care today? How? (Homelessness, low income, unemployed, alcoholism, drug addiction, transportation, low edu. Level, literacy, decrease access to med. care, long term, rehab)? @ -none Was there de-escalation of care discussed even if they declined (Discuss DNR or withdrawal of care, Hospice)? DNR status @ -no What co-morbidities impacted this encounter? (DM, HTN, Smoking, COPD, CAD, Cancer, CVA, ARF, Chemo, Hep., AIDS, mental health diagnosis, sleep apnea, morbid obesity)? @ -none Was patient admitted / discharged? Hospital course, mention meds given and route, prescriptions, significant lab abnormalities, going to OR and other pertinent info. @ - 78 male to the ER for evaluation of significant right lower extremity pain swelling redness. Patient will be admitted for significant cellulitis and pain control Admitted Undiagnosed new problem with uncertain prognosis? @ -no Drug Therapy requiring intensive monitoring for toxicity (Heparin, Nitro, Insulin, Cardizem)? @ -no Were any procedures done? @ -no Diagnosis/symptom? @ -Lower extremity cellulitis Acute, or Chronic, or Acute on Chronic? @ -Acute Uncomplicated (without systemic symptoms) or Complicated (systemic symptoms)? @ -Complicated Side effects of treatment? @ -no Exacerbation, Progression, or Severe Exacerbation? @ -exacerbation Poses a threat to life or bodily function? How? (Chest pain, [place], [place], pneumonia, PE, COPD, DKA, ARF, appy, cholecystitis, CVA, Diverticulitis, Homicidal, Janette cidal, threat to staff... and all critical care pts) @ -yes extremes of age - Consultations Consultation #1: [address] Astudillo who agrees to admit this patient Medical Decision Making - Medical Decision Making 78 male to the ER for evaluation of significant right lower extremity pain swelling redness. Patient will be admitted for significant cellulitis and pain control - Lab Data Result diagrams: 05/05/24 05:26 05/05/24 05:26 Lab Results 05/03/24 05/03/24 05/03/24 Range/Units 02:42 02:42 02:42 WBC 5.1 (3.8-10.6) k/uL RBC 4.98 (4.30-5.90) m/uL Hgb 16.0 (13.0-17.5) gm/dL Hct 48.3 (39.0-53.0) % MCV 97.0 (80.0-100.0) fL MCH 32.2 (25.0-35.0) pg MCHC 33.2 (31.0-37.0) g/dL RDW 12.5 (11.5-15.5) % Plt Count 139 L (150-450) k/uL MPV 7.8 Neutrophils % 69 % Lymphocytes % 23 % Monocytes % 5 % Eosinophils % 1 % Basophils % 0 % Neutrophils # 3.5 (1.3-7.7) k/uL Lymphocytes # 1.2 (1.0-4.8) k/uL Monocytes # 0.3 (0-1.0) k/uL Eosinophils # 0.0 (0-0.7) k/uL Basophils # 0.0 (0-0.2) k/uL PT 11.0 (10.0-12.5) sec INR 1.0 (<1.2) APTT 22.8 (22.0-30.0) sec Sodium 132 L (137-145) mmol/L Potassium 4.4 (3.5-5.1) mmol/L Chloride 95 L (98-107) mmol/L Carbon Dioxide 23 (22-30) mmol/L Anion Gap 14 mmol/L BUN 34 H (9-20) mg/dL Creatinine 1.34 H (0.66-1.25) mg/dL Est GFR (CKD-EPI)AfAm 58 (>60 ml/min/1.73 sqM) Est GFR (CKD-EPI)NonAf 50 (>60 ml/min/1.73 sqM) Glucose 477 H (74-99) mg/dL Lactic Ac Sepsis Rflx Plasma Lactic Acid Rob (0.7-2.0) mmol/L Calcium 9.3 (8.4-10.2) mg/dL Phosphorus 5.5 H (2.5-4.5) mg/dL Magnesium 2.2 (1.6-2.3) mg/dL Total Bilirubin 2.0 H (0.2-1.3) mg/dL AST 82 H (17-59) U/L ALT 97 H (4-49) U/L Alkaline Phosphatase 55 (38-126) U/L Troponin I (0.000-0.034) ng/mL Total Protein 7.4 (6.3-8.2) g/dL Albumin 4.8 (3.5-5.0) g/dL 05/03/24 05/03/24 05/03/24 Range/Units 02:42 02:42 03:55 WBC (3.8-10.6) k/uL RBC (4.30-5.90) m/uL Hgb (13.0-17.5) gm/dL Hct (39.0-53.0) % MCV (80.0-100.0) fL MCH (25.0-35.0) pg MCHC (31.0-37.0) g/dL RDW (11.5-15.5) % Plt Count (150-450) k/uL MPV Neutrophils % % Lymphocytes % % Monocytes % % Eosinophils % % Basophils % % Neutrophils # (1.3-7.7) k/uL Lymphocytes # (1.0-4.8) k/uL Monocytes # (0-1.0) k/uL Eosinophils # (0-0.7) k/uL Basophils # (0-0.2) k/uL PT (10.0-12.5) sec INR (<1.2) APTT (22.0-30.0) sec Sodium (137-145) mmol/L Potassium (3.5-5.1) mmol/L Chloride (98-107) mmol/L Carbon Dioxide (22-30) mmol/L Anion Gap mmol/L BUN (9-20) mg/dL Creatinine (0.66-1.25) mg/dL Est GFR (CKD-EPI)AfAm (>60 ml/min/1.73 sqM) Est GFR (CKD-EPI)NonAf (>60 ml/min/1.73 sqM) Glucose (74-99) mg/dL Lactic Ac Sepsis Rflx Y Plasma Lactic Acid Rob 2.4 H* (0.7-2.0) mmol/L Calcium (8.4-10.2) mg/dL Phosphorus (2.5-4.5) mg/dL Magnesium (1.6-2.3) mg/dL Total Bilirubin (0.2-1.3) mg/dL AST (17-59) U/L ALT (4-49) U/L Alkaline Phosphatase (38-126) U/L Troponin I <0.012 (0.000-0.034) ng/mL Total Protein (6.3-8.2) g/dL Albumin (3.5-5.0) g/dL - EKG Data -: EKG Interpreted by Me (EKG is sinus 63 OR 218 QRS 109 QTc 438) Disposition Clinical Impression: Cellulitis of right lower extremity Disposition: ADMITTED IP TO THIS HOSP Condition: Good Is patient prescribed a controlled substance at d/c from ED?: No Time of Disposition: 03:00
[2024-05-03] MEDS: SODIUM CHLORIDE 0.9% 1,000 ML IV STA (02:53)
[2024-05-03 03:04] LABS: Basophils % (A) 0 %; Eosinophils % (A) 1 %; HCT 48.3 % (39.0-53.0); Lymphocytes # (A) 1.2 k/uL (1.0-4.8); Lymphocytes % (A) 23 %; MCH 32.2 pg (25.0-35.0); MCHC 33.2 g/dL (31.0-37.0); Mean Platelet Volume 7.8; Monocytes # (A) 0.3 k/uL (0-1.0); Monocytes % (A) 5 %; Neutrophils # (A) 3.5 k/uL (1.3-7.7); Neutrophils % (A) 69 %; Platelet Count 139 k/uL (150-450); RBC 4.98 m/uL (4.30-5.90); RDW 12.5 % (11.5-15.5); WBC 5.1 k/uL (3.8-10.6)
[2024-05-03 03:15] LABS: ALT 97 U/L (4-49); AST 82 U/L (17-59); African American GFR (CKD) 58 (>60 ml/min/1.73 sqM); Albumin 4.8 g/dL (3.5-5.0); Alkaline Phosphatase 55 U/L (38-126); Anion Gap 14 mmol/L; Blood Urea Nitrogen 34 mg/dL (9-20); Calcium 9.3 mg/dL (8.4-10.2); Carbon Dioxide 23 mmol/L (22-30); Chloride 95 mmol/L (98-107); Glucose 477 mg/dL (74-99); Magnesium 2.2 mg/dL (1.6-2.3); Non-African American GFR(CKD) 50 (>60 ml/min/1.73 sqM); Phosphorus 5.5 mg/dL (2.5-4.5); Potassium 4.4 mmol/L (3.5-5.1); Sodium 132 mmol/L (137-145); Total Protein 7.4 g/dL (6.3-8.2)
[2024-05-03] MEDS: VANCOMYCIN 1,500 MG in SODIUM CHLORIDE 0.9% 500 ML 500 ML IVPB ONE (03:26)
[2024-05-03 03:35] LABS: Partial Thromboplastin Time 22.8 sec (22.0-30.0)
--- NOTE | 2024-05-03 04:48 | XR ---
EXAM: XR Right Tibia and Fibula, 2 Views CLINICAL HISTORY: ITS.REASON XR Reason: pain TECHNIQUE: Frontal and lateral views of the right tibia and fibula. COMPARISON: No relevant prior studies available. FINDINGS: Bones/joints: Diffuse osseous demineralization. No acute fracture or subluxation. Soft tissues: Unremarkable. No radiopaque foreign body. Vasculature: vascular calcifications. IMPRESSION: No acute fracture or subluxation.
[2024-05-03] MEDS ORDERED: IBUPROFEN 400 MG TAB PO PRN (05:04)
[2024-05-03] MEDS ORDERED: NALOXONE 0.4 MG/ML 1 ML VIAL IV PRN (05:04)
[2024-05-03] MEDS ORDERED: ACETAMINOPHEN TAB 325 MG TAB PO PRN (05:04)
[2024-05-03] MEDS: SODIUM CHLORIDE 0.9% 1,000 ML IV SCH (05:47)
[2024-05-03] MEDS: MORPHINE SULFATE 4 MG/ML SYRINGE IV STA (08:42)
[2024-05-03 11:32] LABS: Glucose,Whole Blood 424 mg/dL (70-110)
[2024-05-03] MEDS ORDERED: DEXTROSE 50% SYRINGE 50 ML IVP PRN ×2 (12:05)
[2024-05-03] MEDS: INSULIN ASPART (NovoLOG) 100 UNIT/ML VIAL SQ SCH (12:43)
[2024-05-03] MEDS: MORPHINE SULFATE 4 MG/ML SYRINGE IV PRN (12:49)
[2024-05-03 13:43] LABS: Glucose,Whole Blood 465 mg/dL (70-110)
[2024-05-03] MEDS ORDERED: NITROGLYCERIN SL TABS 0.4 MG TAB SUBLINGUAL PRN (14:52)
[2024-05-03] MEDS: HYDROcodone/APAP 5-325MG 1 EACH TAB PO PRN (15:50)
[2024-05-03] MEDS: ASPIRIN 81 MG PO SCH (15:51)
[2024-05-03] MEDS: LOSARTAN 50 MG TAB PO SCH (15:51)
[2024-05-03] MEDS: EZETIMIBE 10 MG TAB PO SCH (15:51)
[2024-05-03] MEDS: DAPAGLIFLOZIN PROPANEDIOL 10 MG TABLET PO SCH (15:51)
--- NOTE | 2024-05-03 16:51 | US ---
EXAMINATION TYPE: US venous doppler duplex LE RT DATE OF EXAM: 05/03/2024 4:38 PM COMPARISON: CLINICAL INDICATION: Male, 78 years old with history of right leg pain; No redness or swelling, cellu litis of right calf, Pain TECHNIQUE: The lower extremity deep venous system is examined utilizing real time linear array sonog daina with graded compression, color doppler sonography, and spectral doppler. SIDE PERFORMED: Right FINDINGS: VESSELS IMAGED: Common Femoral Vein Deep Femoral Vein Greater Saphenous Vein * Femoral Vein Popliteal Vein Small Saphenous Vein * Proximal Calf Veins (* superficial vessels) Right Leg: Negative for DVT, Color Doppler imaging shows patency of the vessels. Spectral waveforms are within normal limits. IMPRESSION: No ultrasound evidence for deep venous thrombosis. [facility], , 05/03/2024 4:49 PM
[2024-05-03 17:36] LABS: Glucose,Whole Blood 271 mg/dL (70-110)
[2024-05-03] MEDS ORDERED: VANCOMYCIN 1,500 MG in SODIUM CHLORIDE 0.9% 500 ML 500 ML IVPB SCH (19:00)
[2024-05-03 19:46] LABS: Glucose,Whole Blood 368 mg/dL (70-110)
[2024-05-03] MEDS: INSULIN DETEMIR (LEVEMIR) 100 UNIT/ML SYR SQ SCH (20:30)
[2024-05-03] MEDS: APIXABAN 5 MG TAB PO SCH (20:30)
[2024-05-03] MEDS: METOPROLOL TARTRATE 50 MG TAB PO SCH (20:30)
[2024-05-03] MEDS: ATORVASTATIN 80 MG TAB PO SCH (20:30)
[2024-05-04 06:28] LABS: Glucose,Whole Blood 235 mg/dL (70-110)
[2024-05-04 07:50] LABS: African American GFR (CKD) 72 (>60 ml/min/1.73 sqM); Non-African American GFR(CKD) 62 (>60 ml/min/1.73 sqM)
[2024-05-04] MEDS: ACETAMINOPHEN TAB 500 MG TAB PO PRN (08:54)
--- NOTE | 2024-05-04 09:02 | P.CONS ---
History of Present Illness - Reason for Consult Consult date: 05/03/24 Cellulitis Requesting physician: Padma Monsalve - Chief Complaint Right leg pain swelling redness x few days - History of Present Illness Patient is a 78-year-old male with a past medical history significant for atrial fibrillation diabetes mellitus coronary disease hypertension hyperlipidemia osteoarthritis presenting to the hospital for evaluation of right lower extremity pain and swelling along with redness that has been going on for the last 3 to 4 days. Denies any history of any trauma he did have diffuse swelling and redness to the right lower extremity is currently being to be dull aching mild to moderate intense without radiation has been mostly diffuse swelling to the leg patient did have some chills but denies high-grade fever on presentation the hospital the patient was afebrile no fever have been recorded subsequently patient was not tachycardic hypotensive or hypoxic patient did have a white count of 5.1 BUN and creatinine has been mildly elevated liver isms are mildly elevated patient did have x-ray of the right tibia and fibula that was negative for any fracture patient was started on vancomycin infectious disease was consulted for further management of antibiotic therapy Review of Systems Positive point and negatives has been mentioned in the HPI, complete review of systems was performed and all other systems are negative Past Medical History Past Medical History: Atrial Fibrillation, Coronary Artery Disease (CAD), Cancer, Chest Pain / Angina, CVA/TIA, Diabetes Mellitus, GERD/Reflux, Hyperlipidemia, Hypertension, Osteoarthritis (OA), Prostate Disorder Additional Past Medical History / Comment(s): 5 Herniated discs in neck causing headaches & numbness in arm and right lower back and pain and right leg pain. Prostate Cancer- last radiation tx Mar 25 had total of 44 tx. 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 KNEE ARTHROSCOPY X 2, CERVICAL FUSIONS, COLONOSCOPY, ÁNGEL. CATARTACTS.Pain Procedures , rt radio frequency procedures. , total 3 heart stents, hemorrhoidectomy,heart cath August 2017-lt knee replacement. Stent replacement \2021, hip Past Anesthesia/Blood Transfusion Reactions: No Reported Reaction Additional Past Anesthesia/Blood Transfusion Reaction / Comm: doesn't like enclosed tight spaces Date of Last Stent Placement:: 04/24/17 Past Psychological History: No Psychological Hx Reported Smoking Status: Former smoker Past Alcohol Use History: None Reported Past Drug Use History: None Reported - Past Family History Father Additional Family Medical History / Comment(s): Father at age 49 from coronary artery disease. Brother(s) Additional Family Medical History / Comment(s): Patient has one brother with history of smoking and no other major medical problems. Patient does not have any sisters. Daughter(s) Additional Family Medical History / Comment(s): Patient has one daughter with history of muscular dystrophy and of pneumonia. Son(s) Family Medical History: No Reported History Additional Family Medical History / Comment(s): Patient has one son with no major medical problems. Mother Family Medical History: Cancer Additional Family Medical History / Comment(s): Mother at age 81 from uterine cancer with metastatic disease. Medications and Allergies Home Medications Medication Instructions Recorded Confirmed Type Atorvastatin [Lipitor] 80 mg PO HS 09/01/20 05/03/24 History Aspirin EC [Ecotrin Low Dose] 81 mg PO DAILY 09/11/21 05/03/24 History Apixaban [Eliquis] 5 mg PO BID tab 09/22/21 05/03/24 Rx Nitroglycerin Sl Tabs [Nitrostat] 0.4 mg SUBLINGUAL Q5M PRN tab 09/22/21 05/03/24 Rx Dapagliflozin Propanediol [Farxiga] 10 mg PO DAILY 06/10/23 05/03/24 History Losartan Potassium 100 mg PO DAILY 06/10/23 05/03/24 History Metoprolol Tartrate [Lopressor] 100 mg PO BID 06/10/23 05/03/24 History Acetaminophen Tab [Tylenol Tab] 500 mg PO Q6H PRN 05/03/24 05/03/24 History Ezetimibe [Zetia] 10 mg PO DAILY 05/03/24 05/03/24 History HYDROcodone/APAP 5-325MG [[place] 1 tab PO BID PRN 05/03/24 05/03/24 History 5-325] Insulin Glargine/Lixisenatide 16 units SQ PC-BRKFST 05/03/24 05/03/24 History [Soliqu[place] 100 Unit-33 Mcg/ml Pen] Allergies Allergy/AdvReac Type Severity Reaction Status Date / Time No Known Allergies Allergy Verified 05/03/24 07:35 Physical Exam Vitals: Vital Signs Temp Pulse Resp BP Pulse Ox 05/03/24 07:41 83 16 154/103 96 05/03/24 04:21 97.3 F L 63 17 145/77 96 05/03/24 02:30 97.8 F 73 18 155/84 97 Intake and Output 05/02/24 05/03/24 05/03/24 22:59 06:59 14:59 Other: Weight 106.594 kg GENERAL DESCRIPTION: Elderly male lying in bed, no distress. No tachypnea or accessory muscle of respiration use. HEENT: Shows Pallor , no scleral icterus. Oral mucous membrane is dry. No pharyngeal erythema or thrush NECK: Trachea central, no thyromegaly. LUNGS: Unlabored breathing. Clear to auscultation anteriorly. No wheeze or crack le. HEART: S1, S2, regular rate and rhythm. No loud murmur ABDOMEN: Soft, no tenderness , guarding or rigidity, no organomegaly EXTREMITIES: Diffuse swelling redness and warmth to the right leg no skin breakdown slightly warm to touch SKIN: No rash, no masses palpable. NEUROLOGICAL: The patient is awake, alert, oriented x3, mood and affect normal. Results CBC & Chem 7: 05/03/24 02:42 05/04/24 06:02 Labs: Abnormal Lab Results - Last 24 Hours (Table) 05/03/24 05/03/24 05/03/24 Range/Units 02:42 02:42 02:42 Plt Count 139 L (150-450) k/uL Sodium 132 L (137-145) mmol/L Chloride 95 L (98-107) mmol/L BUN 34 H (9-20) mg/dL Creatinine 1.34 H (0.66-1.25) mg/dL Glucose 477 H (74-99) mg/dL Plasma Lactic Acid Rob 2.4 H* (0.7-2.0) mmol/L Phosphorus 5.5 H (2.5-4.5) mg/dL Total Bilirubin 2.0 H (0.2-1.3) mg/dL AST 82 H (17-59) U/L ALT 97 H (4-49) U/L 05/03/24 Range/Units 07:45 Plt Count (150-450) k/uL Sodium (137-145) mmol/L Chloride (98-107) mmol/L BUN (9-20) mg/dL Creatinine (0.66-1.25) mg/dL Glucose (74-99) mg/dL Plasma Lactic Acid Rob 2.3 H* (0.7-2.0) mmol/L Phosphorus (2.5-4.5) mg/dL Total Bilirubin (0.2-1.3) mg/dL AST (17-59) U/L ALT (4-49) U/L Assessment and Plan (1) Cellulitis of right lower extremity Current Visit: Yes Status: Acute Code(s): L03.115 - CELLULITIS OF RIGHT LOWER LIMB SNOMED Code(s): 95448101132952267 (2) Elevated LFTs Current Visit: Yes Status: Acute Code(s): R79.89 - OTHER SPECIFIED ABNORMAL FINDINGS OF BLOOD CHEMISTRY SNOMED Code(s): 137716496 Plan: 1patient presented to hospital with increasing swelling redness and pain to the right lower extremity concerning for right lower extremity cellulitis with diffuse and swelling concerning for Streptococcal disease currently do not have any open wound or any purulent drainage 2-patient also have mild elevated liver enzymes no tenderness to the right upper quadrant 3-mild insufficiency and high risk of nephrotoxicity from vancomycin 4we will discontinue vancomycin and start the patient on cefazolin 3 g every 8 hours 5check an ultrasound of the liver gallbladder area because of elevated liver e nzymes We will follow on clinical condition and cultures to further adjust medication if needed Thank you for this consultation we will follow the patient along with you Dictation was produced using [employer] dictation software. please excuse any grammatical, word or spelling errors. Time with Patient: Greater than 30
--- NOTE | 2024-05-04 10:24 | P.HPIM ---
History of Present Illness H&P Date: 05/03/24 Chief Complaint: Cellulitis right lower extremity HISTORY OF PRESENT ILLNESS: This is a 78-year-old male patient of mine with previous medical history significant for coronary artery disease status post percutaneous coronary intervention and stent placement last one was in 12/13/2019 in the mid RCA at that time he was found to have a totally occluded obtuse marginal one of the LCx, with collaterals from the PDA, hypertension and hypertensive cardiovascular disease, hyperlipidemia, diabetes mellitus type 2, diabetic polyneuropathy, 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 as well as radio frequency ablation, prostate cancer status post radiation therapy, MSSA septic arthritis left knee, presented to the emergency department at [facility] because of increased redness and swelling of the right lower extremity, patient stated that about a week ago, he stubbed his right third toe to the corner of the door, and he had tremendous amount of pain, had a callus for long period of time, after that few days later he started having increased erythema and edema to the right lower extremity, he could not come to the office because increased pain in the right lower extremity instead he came to the ER for evaluation, he was seen and evaluated emergency department, he was found to have an elevated liver function test including AST ALT along with a bilirubin, he was also found to have a significant cellulitis of the right lower extremity initially was started on vancomycin because of the prior history, he was seen in consultation by infectious disease who recommended for the patient to go on cefazolin, 2 g IV piggyback every 8 hours, patient also will have a venous Doppler of the of the right lower extremity for evaluation to rule out any venous clots, patient also will go for ultrasound of the abdomen for evaluation of his liver function test. REVIEW OF SYSTEMS: Constitutional: No documented fever, or chills, no night sweats, reports fatigue , positive for weight loss. HEENT: No headache. No blurred vision or double vision, no loss of vision. No loss of Hearing, no ringing in the ears, no dizziness. No nasal drainage or congestion. No epistaxis. No sore throat. Respiratory: No shortness of breath, reported cough, no sputum production. No wheezing. Reports dyspnea with activity. Cardiovascular: No chest pain, no lower extremity edema. No palpitations. No paroxysmal nocturnal dyspnea. No orthopnea. No lightheadedness or dizziness. No syncopal episodes. Gastrointestinal: Reports no abdominal pain. No nausea, vomiting. No diarrhea. No constipation. No bloody or tarry stools reports loss of appetite. Genitourinary: No dysuria, increased frequency, urgency. No urinary retention. Musculoskeletal: Negative for myalgias. No muscle weakness, negative for gait dysfunction, no frequent falls, positive for low back pain . Integumentary: Right lower extremity with increased edema and erythema and significant tenderness significant neuropathy to both lower extremities with callus to the third toe and hammertoes. Neurologic: No aphasia. No facial droop. No change in mentation. No head injury. No headache. No paralysis. positive for neuropathy for both lower extremities. Psychiatric: No depression. No anxiety. No mood swings. Endocrine: Positive for abnormal blood sugars. Positive for weight change. PAST MEDICAL HISTORY: 1. CAD post-PCI of the RCA. 2. Hypertension and hypertensive cardiovascular disease. 3. Hyperlipidemia. 4. Diabetes mellitus type 2 5. Diabetic polyneuropathy. 6. PAD. 7. Prostate cancer. 8. Erectile dysfunction. 9. Spondylosis of the lumbar spine. 10. Osteoarthritis. 11. Spondylosis of the cervical spine. 12. Constipation. 13. Septic arthritis left knee and MSSA bacteremia status post revision. 14. C. difficile colitis. PAST SURGICAL HISTORY: Left knee arthroscopic surgery x2. Left total knee arthroplasty. Right total hip replacement with revision due to infection Prostate biopsy. Bilateral cataract surgery. Left heart catheterization in August 2017 with a stent placement of the RCA. Left heart catheterization 07/28/2020 with attempted PCI of the RCA. Left heart catheterization 07/30/2020 with 2 stents placement of the RCA Adenoidectomy with tonsillectomy. Colonoscopy. Epidural injection of the lumbar spine with radiofrequency ablation. SOCIAL HISTORY: Patient is a smoker a pack every day smoked for many years and quit many years ago, he denies any alcohol ingestion, patient used to work for the [employer]. Patient resides at assisted living. FAMILY HISTORY: Father at age of 49 from myocardial infarction, mother at age of 81 from uterine cancer with metastatic disease, patient has one brother with chronic tobacco use and dependence, patient has no sisters, patient has one son no major medical problems, he had 2 daughters one of them from dishing muscular dystrophy the other one is alive and lives in [place]. PHYSICAL EXAMINATION: General: This is 78-year-old male who appears ok HEENT: Head is atraumatic, normocephalic, pupils were equal round reactive to light and recommendation, extraocular muscle movement were intact, sclera nonicteric, conjunctivae were pale, mucous membranes of the mouth are dry. Neck: Supple, no JVP, normal carotid upstroke bilaterally, no lymphadenopathy. Chest: Decreased breath sounds at the bases, few rhonchi, no extremity wheezes, no chest wall tenderness, no intercostal retractions. Heart: First heart sound is normal, second heart sound is normal there is systolic ejection murmur 2/6 left sternal border. Abdomen: Soft, nontender, nondistended, positive bowel sounds, no hepatospl enomegaly Extremities: there is right foot edema, there is increased redness to the right lower extremity all the way to the back of the leg, with increased warmth tenderness and increased redness as well suggestive of significant cellulitis. Dorsalis pedis +1 bilaterally. Skin: There is erythema to the right lower extremity with increased edema, there is also callus to the right third toe with hammertoes. Neurologic examination: Patient is awake alert and oriented x 3, cranial nerves II to XII appear to be gross intact, muscle power 5 out of 5 in upper and lower extremities bilaterally. ASSESSMENT AND PLAN: 1. Right lower extremity cellulitis with SIRS . Patient was started on IV antibiotic in the form of cefazolin 2 g piggyback every 8 hours, infectious ease consultation, elevate leg, discontinue IV fluid at this point in time after 24 hours. 2. Acute kidney injury due to poor oral intake of fluid and possible acute tubular necrosis. Discontinue IV fluid resuscitation at this point in time, repeat the patient CMP in the next 24 hours. 3. Elevated liver function test, patient does not have any acute abdomen he does not have any abdominal pain nausea vomiting or diarrhea at this time, we will arrange for ultrasound of the abdomen as ordered by infectious disease, for further evaluation and treatment. 4. Paroxysmal atrial fibrillation. Continue patient on metoprolol 100 mg orally twice every day as well as Eliquis 5 mg orally twice every day for life. 5. Coronary artery disease status post Left heart catheterization with PCI of the RCA on 07/30/2020. Continue patient on aspirin 81 mg once every day, continue metoprolol 100 mg orally twice every day. 6. Hypertension and hypertensive cardiovascular disease. Continue metoprolol 1 00 mg orally twice every day, losartan 100 mg once every day,monitor the patient blood pressure very closely. 7. Hyperlipidemia. Continue patient on atorvastatin 80 mg orally once every day, Zetia 10 mg once every day, monitor the patient lipid panel, keep LDL 55- 70. 8. Diabetes mellitus type 2. We will continue patient on Farxiga 10 mg orally once every day as well as Lantus 16 units at bedtime, follow-up with a sliding scale insulin. Patient was taken off GLP receptor agonist because of difficulty swallowing and significant weight loss. 9. History of prostate cance status post rotation. Stable at this time. 10. 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 Stable at this time continue current pain management. 11. DVT prophylaxis. Continue patient on Eliquis 5 mg orally twice every day. 12. GI prophylaxis. Protonix 40 mg orally once every day.. 13. admit to inpatient. Estimated length of stay 2 midnights. 14. Patient is full code. Past Medical History Past Medical History: Atrial Fibrillation, Coronary Artery Disease (CAD), Cancer, Chest Pain / Angina, CVA/TIA, Diabetes Mellitus, GERD/Reflux, Hyperlipidemia, Hypertension, Osteoarthritis (OA), Prostate Disorder Additional Past Medical History / Comment(s): 5 Herniated discs in neck causing headaches & numbness in arm and right lower back and pain and right leg pain. Prostate Cancer- last radiation tx Mar 25 had total of 44 tx. occ constipation, sepsis Hx Last Myocardial Infarction Date:: UNKOWN History of Any Multi-Drug Resistant Organisms: VRE Date of last positivie culture/infection: 09/18/20 MDRO Source:: Wound Past Surgical History: Adenoidectomy, Heart Catheterization, Heart Catheterization With Stent, Joint Replacement, Orthopedic Surgery, Tonsillectomy Additional Past Surgical History / Comment(s): PROSTATE BX., LT. KNEE ARTHROSCOPY X 2, CERVICAL FUSIONS, COLONOSCOPY, ÁNGEL. CATARTACTS.Pain Procedures , rt radio frequency procedures. , total 3 heart stents, hemorrhoidectomy,heart cath August 2017-lt knee replacement. Stent replacement 4\\2020, hip Past Anesthesia/Blood Transfusion Reactions: No Reported Reaction Additional Past Anesthesia/Blood Transfusion Reaction / Comment(s): doesn't like enclosed tight spaces Date of Last Stent Placement:: 04/24/17 Past Psychological History: No Psychological Hx Reported Smoking Status: Former smoker Past Alcohol Use History: None Reported Past Drug Use History: None Reported - Past Family History Father Additional Family Medical History / Comment(s): Father at age 49 from coron antione artery disease. Brother(s) Additional Family Medical History / Comment(s): Patient has one brother with history of smoking and no other major medical problems. Patient does not have any sisters. Daughter(s) Additional Family Medical History / Comment(s): Patient has one daughter with history of muscular dystrophy and of pneumonia. Son(s) Family Medical History: No Reported History Additional Family Medical History / Comment(s): Patient has one son with no major medical problems. Mother Family Medical History: Cancer Additional Family Medical History / Comment(s): Mother at age 81 from uterine cancer with metastatic disease. Medications and Allergies Home Medications Medication Instructions Recorded Confirmed Type Atorvastatin [Lipitor] 80 mg PO HS 09/01/20 05/03/24 History Aspirin EC [Ecotrin Low Dose] 81 mg PO DAILY 09/11/21 05/03/24 History Apixaban [Eliquis] 5 mg PO BID tab 09/22/21 05/03/24 Rx Nitroglycerin Sl Tabs [Nitrostat] 0.4 mg SUBLINGUAL Q5M PRN tab 09/22/21 05/03/24 Rx Dapagliflozin Propanediol [Farxiga] 10 mg PO DAILY 06/10/23 05/03/24 History Losartan Potassium 100 mg PO DAILY 06/10/23 05/03/24 History Metoprolol Tartrate [Lopressor] 100 mg PO BID 06/10/23 05/03/24 History Acetaminophen Tab [Tylenol Tab] 500 mg PO Q6H PRN 05/03/24 05/03/24 History Ezetimibe [Zetia] 10 mg PO DAILY 05/03/24 05/03/24 History HYDROcodone/APAP 5-325MG [[place] 1 tab PO BID PRN 05/03/24 05/03/24 History 5-325] Insulin Glargine/Lixisenatide 16 units SQ PC-BRKFST 05/03/24 05/03/24 History [[place] 100 Unit-33 Mcg/ml Pen] Allergies Allergy/AdvReac Type Severity Reaction Status Date / Time No Known Allergies Allergy Verified 05/03/24 07:35 Physical Exam Vitals: Vital Signs Temp Pulse Resp BP Pulse Ox 05/03/24 13:38 98.0 F 79 16 175/87 98 05/03/24 12:52 97.9 F 88 16 164/84 97 05/03/24 11:35 153/85 05/03/24 07:41 83 16 154/103 96 05/03/24 04:21 97.3 F L 63 17 145/77 96 05/03/24 02:30 97.8 F 73 18 155/84 97 Intake and Output 05/02/24 05/03/24 05/03/24 22:59 06:59 14:59 Other: Weight 106.594 kg Results CBC & Chem 7: 05/03/24 02:42 05/04/24 06:02 Labs: Abnormal Lab Results - Last 24 Hours (Table) 05/03/24 05/03/24 05/03/24 Range/Units 02:42 02:42 02:42 Plt Count 139 L (150-450) k/uL Sodium 132 L (137-145) mmol/L Chloride 95 L (98-107) mmol/L BUN 34 H (9-20) mg/dL Creatinine 1.34 H (0.66-1.25) mg/dL Glucose 477 H (74-99) mg/dL POC Glucose (mg/dL) (70-110) mg/dL Plasma Lactic Acid Rob 2.4 H* (0.7-2.0) mmol/L Phosphorus 5.5 H (2.5-4.5) mg/dL Total Bilirubin 2.0 H (0.2-1.3) mg/dL AST 82 H (17-59) U/L ALT 97 H (4-49) U/L 05/03/24 05/03/24 05/03/24 Range/Units 07:45 11:30 13:41 Plt Count (150-450) k/uL Sodium (137-145) mmol/L Chloride (98-107) mmol/L BUN (9-20) mg/dL Creatinine (0.66-1.25) mg/dL Glucose (74-99) mg/dL POC Glucose (mg/dL) 424 H 465 H (70-110) mg/dL Plasma Lactic Acid Rob 2.3 H* (0.7-2.0) mmol/L Phosphorus (2.5-4.5) mg/dL Total Bilirubin (0.2-1.3) mg/dL AST (17-59) U/L ALT (4-49) U/L
--- NOTE | 2024-05-04 10:27 | P.PN ---
Subjective Progress Note Date: 05/04/24 HISTORY OF PRESENT ILLNESS: This is a 78-year-old male patient of mine with previous medical history significant for coronary artery disease status post percutaneous coronary interv ention and stent placement last one was in 12/13/2019 in the mid RCA at that time he was found to have a totally occluded obtuse marginal one of the LCx, with collaterals from the PDA, hypertension and hypertensive cardiovascular disease, hyperlipidemia, diabetes mellitus type 2, diabetic polyneuropathy, 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 as well as radio frequency ablation, prostate cancer status post radiation therapy, MSSA septic arthritis left knee, presented to the emergency department at [facility] because of increased redness and swelling of the right lower extremity, patient stated that about a week ago, he stubbed his right third toe to the corner of the door, and he had tremendous amount of pain, had a callus for long period of time, after that few days later he started having increased erythema and edema to the right lower extremity, he could not come to the office because increased pain in the right lower extremity instead he came to the ER for evaluation, he was seen and evaluated emergency department, he was found to have an elevated liver function test including AST ALT along with a bilirubin, he was also found to have a significant cellulitis of the right lower extremity initially was started on vancomycin because of the prior history, he was seen in consultation by infectious disease who recommended for the patient to go on cefazolin, 2 g IV piggyback every 8 hours, patient also will have a venous Doppler of the of the right lower extremity for evaluation to rule out any venous clots, patient also will go for ultrasound of the abdomen for evaluation of his liver function test. 05/04: Patient is laying down in bed in no apparent distress, he is going to the bathroom quite a bit, will discontinue his IV fluid resuscitation at this point in time, repeat CMP tomorrow morning, due to acute kidney injury, patient scheduled go for ultrasound of the abdomen for evaluation of elevated liver function test including AST ALT and bilirubin, patient has no abdominal pain at this time, he has no nausea or vomiting or diarrhea could be medication side effect, patient has been on cefazolin 2 g piggyback every 8 hours, he has been seen in consultation by infectious disease, he underwent venous Doppler of the right lower extremity that was negative for deep venous thrombosis, started the patient on Silvadene cream and wrapped the leg with a Kerlix wrap at this point in time. REVIEW OF SYSTEMS: Constitutional: No documented fever, or chills, no night sweats, reports fatigue , positive for weight loss. HEENT: No headache. No blurred vision or double vision, no loss of vision. No loss of Hearing, no ringing in the ears, no dizziness. No nasal drainage or congestion. No epistaxis. No sore throat. Respiratory: No shortness of breath, reported cough, no sputum production. No wheezing. Reports dyspnea with activity. Cardiovascular: No chest pain, no lower extremity edema. No palpitations. No paroxysmal nocturnal dyspnea. No orthopnea. No lightheadedness or dizziness. No syncopal episodes. Gastrointestinal: Reports no abdominal pain. No nausea, vomiting. No diarrhea. No constipation. No bloody or tarry stools reports loss of appetite. Genitourinary: No dysuria, increased frequency, urgency. No urinary retention. Musculoskeletal: Negative for myalgias. No muscle weakness, negative for gait dysfunction, no frequent falls, positive for low back pain . Integumentary: Right lower extremity with increased edema and erythema and significant tenderness significant neuropathy to both lower extremities with callus to the third toe and hammertoes. Neurologic: No aphasia. No facial droop. No change in mentation. No head injury. No headache. No paralysis. positive for neuropathy for both lower extremities. Psychiatric: No depression. No anxiety. No mood swings. Endocrine: Positive for abnormal blood sugars. Positive for weight change. PHYSICAL EXAMINATION: General: This is 78-year-old male who appears ok HEENT: Head is atraumatic, normocephalic, pupils were equal round reactive to light and recommendation, extraocular muscle movement were intact, sclera nonicteric, conjunctivae were pale, mucous membranes of the mouth are dry. Neck: Supple, no JVP, normal carotid upstroke bilaterally, no lymphadenopathy. Chest: Decreased breath sounds at the bases, few rhonchi, no extremity wheezes, no chest wall tenderness, no intercostal retractions. Heart: First heart sound is normal, second heart sound is normal there is syst olic ejection murmur 2/6 left sternal border. Abdomen: Soft, nontender, nondistended, positive bowel sounds, no hepatosplenomegaly Extremities: there is right foot edema, there is increased redness to the right lower extremity all the way to the back of the leg, with increased warmth tenderness and increased redness as well suggestive of significant cellulitis. Dorsalis pedis +1 bilaterally. Skin: There is erythema to the right lower extremity with increased edema, there is also callus to the right third toe with hammertoes. Neurologic examination: Patient is awake alert and oriented x 3, cranial nerves II to XII appear to be gross intact, muscle power 5 out of 5 in upper and lower extremities bilaterally. ASSESSMENT AND PLAN: 1. Right lower extremity cellulitis with SIRS . Patient was started on IV antibiotic in the form of cefazolin 2 g piggyback every 8 hours, infectious ease consultation, elevate leg, discontinue IV fluid at this point in time after 24 hours. Start the patient on Silvadene cream 1% and wrapped with a Kerlix wrap. 2. Acute kidney injury due to poor oral intake of fluid and possible acute tubular necrosis. Discontinue IV fluid resuscitation at this point in time, repeat the patient CMP in the next 24 hours. 3. Elevated liver function test, patient does not have any acute abdomen he does not have any abdominal pain nausea vomiting or diarrhea at this time, we will arrange for ultrasound of the abdomen as ordered by infectious disease, for further evaluation and treatment. 4. Paroxysmal atrial fibrillation. Continue patient on metoprolol 100 mg orally twice every day as well as Eliquis 5 mg orally twice every day for life. 5. Coronary artery disease status post Left heart catheterization with PCI of the RCA on 07/30/2020. Continue patient on aspirin 81 mg once every day, continue metoprolol 100 mg orally twice every day. 6. Hypertension and hypertensive cardiovascular disease. Continue metoprolol 100 mg orally twice every day, losartan 100 mg once every day,monitor the patient blood pressure very closely. 7. Hyperlipidemia. Continue patient on atorvastatin 80 mg orally once every day, Zetia 10 mg once every day, monitor the patient lipid panel, keep LDL 55- 70. 8. Diabetes mellitus type 2. We will continue patient on Farxiga 10 mg orally once every day as well as Lantus 16 units at bedtime, follow-up with a sliding scale insulin. Patient was taken off GLP receptor agonist because of difficulty swallowing and significant weight loss. 9. History of prostate cance status post rotation. Stable at this time. 10. 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 Stable at this time continue current pain management. 11. DVT prophylaxis. Continue patient on Eliquis 5 mg orally twice every day. 12. GI prophylaxis. Protonix 40 mg orally once every day. 13. Increase activity. Objective - Vital Signs Vital signs: Vital Signs Temp 97.6 F 05/04/24 07:00 Pulse 69 05/04/24 07:00 Resp 16 05/04/24 07:00 BP 145/88 05/04/24 07:00 Pulse Ox 98 05/04/24 07:00 FiO2 Intake & Output 05/03/24 05/04/24 05/04/24 18:59 06:59 18:59 Intake Total 120 240 Balance 120 240 Intake: Oral 120 240 Other: Voiding Method Toilet # Voids 2 - Labs CBC & Chem 7: 05/03/24 02:42 05/04/24 06:02 Labs: Abnormal Lab Results - Last 24 Hours (Table) 05/03/24 05/03/24 05/03/24 Range/Units 11:30 13:41 17:28 POC Glucose (mg/dL) 424 H 465 H 271 H (70-110) mg/dL 05/03/24 05/04/24 Range/Units 19:45 06:26 POC Glucose (mg/dL) 368 H 235 H (70-110) mg/dL
[2024-05-04 12:31] LABS: Glucose,Whole Blood 299 mg/dL (70-110)
--- NOTE | 2024-05-04 15:27 | US ---
EXAMINATION TYPE: US abdomen limited DATE OF EXAM: 05/04/2024 COMPARISON: 02/02/2024 CLINICAL INDICATION: Male, 78 years old with history of Elevated LFT; Abnormal labs. 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 Hx RK cyst. TECHNIQUE: Grayscale and color Doppler imaging of the right upper quadrant was performed. FINDINGS: EXAM MEASUREMENTS: Liver Length: 17.8 cm Right Kidney: 11.7 x 4.5 x 5.4 cm DIRECTOR GEOPHYSICAL LABORATORY NOTES: Very limited due to overlying bowel gas, limited visualization Pancreas: Obscured by bowel gas Liver: Limited visualization, scanned through ribs. Left lobe not seen. Increased attenuation and decreased visualization of vessels. Gallbladder: Obscured by overlying bowel gas Evidence for sonographic Henderson's sign: neg CBD: Obscured by overlying bowel gas Right Kidney: Upper pole anechoic lesion = 2.2 x 2.2 x 2.1 cm IMPRESSION: 1. No evidence for acute process. 2. Simple appearing right renal cyst. 3. Hepatic steatosis. [facility], , 05/04/2024 3:25 PM
--- NOTE | 2024-05-04 16:19 | P.PN ---
Subjective Progress Note Date: 05/04/24 Principal diagnosis: Reason for follow-up is right leg cellulitis Patient is a 78-year-old male with a past medical history significant for atrial fibrillation diabetes mellitus coronary disease hypertension hyperlipidemia osteoarthritis presenting to the hospital for evaluation of right lower extremity pain and swelling along with redness patient has been diagnosed with a right leg cellulitis prompted this consultation. On today's evaluation that is 05/04/2024,the patient remains to be afebrile, patient is on room air not requiring supplemental oxygen and denies any shortness of breath no chest pain or cough.Patient denies having any nausea or vomiting, no abdominal pain and no diarrhea has been reported circumventing of some pain and swelling to the right leg though decreased in intensity. Patient did have a creatinine 1.12 blood cultures are pending Objective - Vital Signs Vital signs: Vital Signs Temp 97.8 F 05/04/24 15:00 Pulse 67 05/04/24 15:00 Resp 16 05/04/24 15:00 BP 158/78 05/04/24 15:00 Pulse Ox 100 05/04/24 15:00 FiO2 Intake & Output 05/03/24 05/04/24 05/04/24 18:59 06:59 18:59 Intake Total 120 240 Balance 120 240 Intake: Oral 120 240 Other: Voiding Method Toilet Toilet # Voids 2 3 - Exam GENERAL DESCRIPTION: An elderly male up in the chair in no distress RESPIRATORY SYSTEM: Unlabored breathing , decreased breath sounds at bases HEART: S1 S2 regular rate and rhythm , ABDOMEN: Soft , no tenderness EXTREMITIES: Right leg redness slightly decreased - Labs CBC & Chem 7: 05/03/24 02:42 05/04/24 06:02 Labs: Abnormal Lab Results - Last 24 Hours (Table) 05/03/24 05/03/24 05/04/24 Range/Units 17:28 19:45 06:02 POC Glucose (mg/dL) 271 H 368 H (70-110) mg/dL Hemoglobin A1c 11.1 H (<=6.0) % 05/04/24 05/04/24 Range/Units 06:26 12:30 POC Glucose (mg/dL) 235 H 299 H (70-110) mg/dL Hemoglobin A1c (<=6.0) % Microbiology - Last 24 Hours (Table) 01/15/25 02:42 Blood Culture - Preliminary Blood Assessment and Plan (1) Cellulitis of right lower extremity Current Visit: Yes Status: Acute Code(s): L03.115 - CELLULITIS OF RIGHT LOWER LIMB SNOMED Code(s): 27551469536509577 (2) Elevated LFTs Current Visit: Yes Status: Acute Code(s): R79.89 - OTHER SPECIFIED ABNORMAL FINDINGS OF BLOOD CHEMISTRY SNOMED Code(s): 788320126 Plan: 1patient presented to hospital with increasing swelling redness and pain to the right lower extremity concerning for right lower extremity cellulitis with diffuse and swelling concerning for Streptococcal disease currently do not have any open wound or any purulent drainage 2-patient also have mild elevated liver enzymes no tenderness to the right upper quadrant, ultrasound reported negative 3-patient to continue with cefazolin 3 g every 8 hours along with Praneeth wrap to get some of the swelling down Dictation was produced using [employer] dictation software. please excuse any grammatical, word or spelling errors. Time with Patient: Less than 30
[2024-05-04 17:49] LABS: Glucose,Whole Blood 364 mg/dL (70-110)
[2024-05-04 19:36] VITALS: RESP 17
[2024-05-04 20:12] LABS: Glucose,Whole Blood 289 mg/dL (70-110)
[2024-05-05 05:50] LABS: Glucose,Whole Blood 200 mg/dL (70-110)
[2024-05-05 08:54] LABS: ALT 51 U/L (10-49); AST 51 U/L (14-35); Albumin/Globulin Ratio 2.22 Ratio (1.60-3.17); Alkaline Phosphatase 38 U/L (41-126); Blood Urea Nitrogen 24.5 mg/dL (9.0-27.0); Calcium 8.7 mg/dL (8.7-10.3); Carbon Dioxide 22.6 mmol/L (21.6-31.8); Chloride 104 mmol/L (96-109); Globulin 1.8 g/dL (1.6-3.3); Glucose 189 mg/dL (70-110); Potassium 4.3 mmol/L (3.5-5.5); Sodium 138 mmol/L (135-145); Total Bilirubin 0.9 mg/dL (0.3-1.2); Total Protein 5.8 g/dL (6.2-8.2)
[2024-05-05 10:34] VITALS: BP 155/84; PULSE 72; TEMP 97.5
[2024-05-05 10:52] LABS: Basophils # (A) 0.03 X 10*3/uL (0.00-0.10); Basophils % (A) 0.8 %; Eosinophils # (A) 0 X 10*3/uL (0.04-0.35); Eosinophils % (A) 0 %; HCT 43.4 % (39.6-50.0); HGB 14.1 g/dL (13.0-17.0); Lymphocytes # (A) 1.13 X 10*3/uL (0.90-5.00); Lymphocytes % (A) 30.7 %; MCH 31.6 pg (27.0-32.0); MCHC 32.5 g/dL (32.0-37.0); MCV 97.3 FL (80.0-97.0); Mean Platelet Volume 11.2 FL (9.5-12.2); Monocytes # (A) 0.48 X 10*3/uL (0.20-1.00); NRBC Per 100 WBC 0 X 10*3/uL (0.00-0.01); Neutrophils # (A) 2.03 X 10*3/uL (1.80-7.70); Neutrophils % (A) 55.2 %; Platelet Count 107 X 10*3/uL (140-440); RBC 4.46 X 10*6/uL (4.40-5.60); RDW 12.5 % (11.5-14.5); WBC 3.68 X 10*3/uL (4.50-10.00)
[2024-05-05 12:09] LABS: Glucose,Whole Blood 240 mg/dL (70-110)
[2024-05-05 13:46] VITALS: BMI 30.9
--- NOTE | 2024-05-05 14:07 | P.DS ---
Providers Date of admission: 05/03/24 05:05 Expected date of discharge: 05/05/24 Attending physician: German Astudillo Consults: 05/03/24 07:28 Consult Physician Routine Consulting Provider: Yessy Strickland Consult Reason/Comments: Cellulitis Do you want consulting provider notified?: Yes Primary care physician: German Astudillo Hospital Course: HISTORY OF PRESENT ILLNESS: This is a 78-year-old male patient of mine with previous medical history significant for coronary artery disease status post percutaneous coronary intervention and stent placement last one was in 12/13/2019 in the mid RCA at that time he was found to have a totally occluded obtuse marginal one of the LCx, with collaterals from the PDA, hypertension and hypertensive cardiovascular disease, hyperlipidemia, diabetes mellitus type 2, diabetic polyneuropathy, 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 as well as radio frequency ablation, prostate cancer status post radiation therapy, MSSA septic arthritis left knee, presented to the emergency department at [facility] because of increased redness and swelling of the right lower extremity, patient stated that about a week ago, he stubbed his right third toe to the corner of the door, and he had tremendous amount of pain, had a callus for long period of time, after that few days later he started having increased erythema and edema to the right lower extremity, he could not come to the office because increased pain in the right lower extremity instead he came to the ER for evaluation, he was seen and evaluated emergency department, he was found to have an elevated liver function test including AST ALT along with a bilirubin, he was also found to have a significant cellulitis of the right lower extremity initially was started on vancomycin because of the prior history, he was seen in consultation by infectious disease who recommended for the patient to go on cefazolin, 2 g IV piggyback every 8 hours, patient also will have a venous Doppler of the of the right lower extremity for evaluation to rule out any venous clots, patient also will go for ultrasound of the abdomen for evaluation of his liver function test. 05/04: Patient is laying down in bed in no apparent distress, he is going to the bathroom quite a bit, will discontinue his IV fluid resuscitation at this point in time, repeat CMP tomorrow morning, due to acute kidney injury, patient scheduled go for ultrasound of the abdomen for evaluation of elevated liver function test including AST ALT and bilirubin, patient has no abdominal pain at this time, he has no nausea or vomiting or diarrhea could be medication side effect, patient has been on cefazolin 2 g piggyback every 8 hours, he has been seen in consultation by infectious disease, he underwent venous Doppler of the right lower extremity that was negative for deep venous thrombosis, started the patient on Silvadene cream and wrapped the leg with a Kerlix wrap at this point in time. 05/05: Patient's lower extremity pain, erythema and edema have improved. He has been on IV antibiotics in the form of cefazolin. Patient has been followed by infectious disease, Dr. Strickland. Abdominal ultrasound revealed no evidence of acute process. Hepatic steatosis. He has been afebrile, blood pressure 155/84, pulse ox 97% on room air, heart rate in the 60s to 80s. Repeat blood work reveals WBC 3.6, hemoglobin 14.1, platelet count 107. Electrolytes are normal, creatinine 1.4. Blood culture is no growth at 48 hours. Patient is adamant that he wants to go home today. He does show improvement of the cellulitis and has been cleared by infectious disease. Patient will be discharged later today in stable condition. DISCHARGE DIAGNOSES: 1. Right lower extremity cellulitis with sepsis. 2. Acute kidney injury due to poor oral intake of fluid and possible acute tubular necrosis. 3. Elevated liver function test, patient does not have any acute abdomen he does not have any abdominal pain nausea vomiting or diarrhea 4. Paroxysmal atrial fibrillation. 5. Coronary artery disease status post Left heart catheterization with PCI of the RCA on 07/30/2020. 6. Hypertension and hypertensive cardiovascular disease. 7. Hyperlipidemia. 8. Diabetes mellitus type 2. 9. History of prostate cancer status post rotation. 10. 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 Discharge plan: Home with home care Greater than 35 minutes was utilized and coordinating patient's discharge. Impression and plan of care have been directed as dictated by the signing physician. Padma Monsalve nurse practitioner acting as scribe for signing physician. Patient Condition at Discharge: Good Plan - Discharge Summary Discharge Rx Participant: No New Discharge Prescriptions: New Cephalexin [Keflex] 500 mg PO Q6HR 10 Days #40 cap SILVER sulfADIAZINE CREAM [Silvadene Cream] 1 applic TOPICAL DAILY #25 gm Continue Aspirin EC [Ecotrin Low Dose] 81 mg PO DAILY Apixaban [Eliquis] 5 mg PO BID tab Metoprolol Tartrate [Lopressor] 100 mg PO BID Dapagliflozin Propanediol [Farxiga] 10 mg PO DAILY Ezetimibe [Zetia] 10 mg PO DAILY Insulin Glargine/Lixisenatide [Soliqua 100 Unit-33 Mcg/ml Pen] 16 units SQ PC-BRKFST Atorvastatin [Lipitor] 80 mg PO HS Nitroglycerin Sl Tabs [Nitrostat] 0.4 mg SUBLINGUAL Q5M PRN tab PRN Reason: Chest Pain Losartan Potassium 100 mg PO DAILY Acetaminophen Tab [Tylenol] 500 mg PO Q6H PRN PRN Reason: Pain HYDROcodone/APAP 5-325MG [[place] 5-325] 1 tab PO BID PRN PRN Reason: Pain Discharge Medication List Atorvastatin [Lipitor] 80 mg PO HS 09/01/20 [History] Aspirin EC [Ecotrin Low Dose] 81 mg PO DAILY 09/11/21 [History] Apixaban [Eliquis] 5 mg PO BID tab 09/22/21 [Rx] Nitroglycerin Sl Tabs [Nitrostat] 0.4 mg SUBLINGUAL Q5M PRN tab 09/22/21 [Rx] Dapagliflozin Propanediol [Farxiga] 10 mg PO DAILY 06/10/23 [History] Losartan Potassium 100 mg PO DAILY 06/10/23 [History] Metoprolol Tartrate [Lopressor] 100 mg PO BID 06/10/23 [History] Acetaminophen Tab [Tylenol] 500 mg PO Q6H PRN 05/03/24 [History] Ezetimibe [Zetia] 10 mg PO DAILY 05/03/24 [History] HYDROcodone/APAP 5-325MG [[place] 5-325] 1 tab PO BID PRN 05/03/24 [History] Insulin Glargine/Lixisenatide [[place] 100 Unit-33 Mcg/ml Pen] 16 units SQ PC- BRKFST 05/03/24 [History] Cephalexin [Keflex] 500 mg PO Q6HR 10 Days #40 cap 05/05/24 [Rx] SILVER sulfADIAZINE CREAM [Silvadene Cream] 1 applic TOPICAL DAILY #25 gm 05/05/24 [Rx] Follow up Appointment(s)/Referral(s): [facility] [NON-STAFF] - As Needed German Astudillo MD [Primary Care Provider] - 1 Week Yessy Strickland MD [STAFF PHYSICIAN] - 2 Weeks Discharge Disposition: HOME WITH HOME HEALTH SERVICES
--- NOTE | 2024-05-05 15:45 | P.PN ---
Subjective Progress Note Date: 05/05/24 Principal diagnosis: Reason for follow-up is right leg cellulitis Patient is a 78-year-old male with a past medical history significant for atrial fibrillation diabetes mellitus coronary disease hypertension hyperlipidemia osteoarthritis presenting to the hospital for evaluation of right lower extremity pain and swelling along with redness patient has been diagnosed with a right leg cellulitis prompted this consultation. On today's evaluation that is 05/05/2024, the patient continues to be afebrile, the patient is on room air and breathing comfortably, the Pt denies having any chest pain or cough, the patient denies having any abdominal pain no vomiting or any diarrhea pain and swelling to the right leg has decreased intensity patient feeling better wants to go home. Patient white count is 3.68, creatinine is 1.4 blood culture have been negative so far Objective - Vital Signs Vital signs: Vital Signs Temp 97.5 F L 05/05/24 07:00 Pulse 72 05/05/24 07:00 Resp 17 05/05/24 07:00 BP 155/84 05/05/24 07:00 Pulse Ox 97 05/05/24 07:00 FiO2 Intake & Output 05/04/24 05/05/24 05/05/24 18:59 06:59 18:59 Intake Total 240 298 Balance 240 298 Intake: Oral 240 298 Other: Voiding Method Toilet Toilet # Voids 3 2 - Exam GENERAL DESCRIPTION: An elderly male up in the chair in no distress RESPIRATORY SYSTEM: Unlabored breathing , decreased breath sounds at bases HEART: S1 S2 regular rate and rhythm , ABDOMEN: Soft , no tenderness EXTREMITIES: Right leg redness slightly decreased - Labs CBC & Chem 7: 05/05/24 05:26 05/05/24 05:26 Labs: Abnormal Lab Results - Last 24 Hours (Table) 05/04/24 05/04/24 05/05/24 Range/Units 17:48 20:10 05:26 WBC 3.68 L (4.50-10.00) X 10*3/uL MCV 97.3 H (80.0-97.0) FL Plt Count 107 L (140-440) X 10*3/uL Eosinophils # 0 L (0.04-0.35) X 10*3/uL Est GFR (CKD-EPI) (>=60) Glucose (70-110) mg/dL POC Glucose (mg/dL) 364 H 289 H (70-110) mg/dL AST (14-35) U/L ALT (10-49) U/L Alkaline Phosphatase (41-126) U/L Total Protein (6.2-8.2) g/dL 05/05/24 05/05/24 05/05/24 Range/Units 05:26 05:48 12:08 WBC (4.50-10.00) X 10*3/uL MCV (80.0-97.0) FL Plt Count (140-440) X 10*3/uL Eosinophils # (0.04-0.35) X 10*3/uL Est GFR (CKD-EPI) 51 L (>=60) Glucose 189 H (70-110) mg/dL POC Glucose (mg/dL) 200 H 240 H (70-110) mg/dL AST 51 H (14-35) U/L ALT 51 H (10-49) U/L Alkaline Phosphatase 38 L (41-126) U/L Total Protein 5.8 L (6.2-8.2) g/dL Microbiology - Last 24 Hours (Table) 05/03/24 02:42 Blood Culture - Preliminary Blood Assessment and Plan (1) Cellulitis of right lower extremity Current Visit: Yes Status: Acute Code(s): L03.115 - CELLULITIS OF RIGHT LOWER LIMB SNOMED Code(s): 49331761658170681 (2) Elevated LFTs Current Visit: Yes Status: Acute Code(s): R79.89 - OTHER SPECIFIED ABNORMAL FINDINGS OF BLOOD CHEMISTRY SNOMED Code(s): 985484993 Plan: 1patient presented to hospital with increasing swelling redness and pain to the right lower extremity concerning for right lower extremity cellulitis with diffuse and swelling concerning for Streptococcal disease currently do not have any open wound or any purulent drainage 2-patient also have mild elevated liver enzymes no tenderness to the right upper quadrant, ultrasound reported negative 3-nursing staff has been advised again to apply Praneeth wrap to keep the swelling down for now continue with the cefazolin finishing therapy with oral Keflex discussed with OUTSIDE SALES ACCOUNT EXECUTIVE for admitting team working on discharge Dictation was produced using [employer] dictation software. please excuse any grammatical, word or spelling errors. Time with Patient: Less than 30
== END 2024-05-05 15:43 | disposition home health service (06) ==
LOC: EC 02:26 → 6NMEDSUR 05:05
PROVIDERS: ADMIT Internal Medicine; ATTEND Internal Medicine
DX: L03.115 Cellulitis of right lower limb (principal); A41.9 Sepsis, unspecified organism; N17.9 Acute kidney failure, unspecified; R79.89 Other specified abnormal findings of blood chemistry; K76.0 Fatty (change of) liver, not elsewhere classified; I48.0 Paroxysmal atrial fibrillation; I25.10 Atherosclerotic heart disease of native coronary artery without angina pectoris; I11.9 Hypertensive heart disease without heart failure; E11.42 Type 2 diabetes mellitus with diabetic polyneuropathy; E78.5 Hyperlipidemia, unspecified; Z95.5 Presence of coronary angioplasty implant and graft; M47.812 Spondylosis without myelopathy or radiculopathy, cervical region; M47.816 Spondylosis without myelopathy or radiculopathy, lumbar region; K21.9 Gastro-esophageal reflux disease without esophagitis; Z87.891 Personal history of nicotine dependence; Z79.01 Long term (current) use of anticoagulants; Z79.84 Long term (current) use of oral hypoglycemic drugs; Z79.82 Long term (current) use of aspirin; Z79.899 Other long term (current) drug therapy; Z96.641 Presence of right artificial hip joint; Z96.652 Presence of left artificial knee joint; Z92.3 Personal history of irradiation; Z85.46 Personal history of malignant neoplasm of prostate; Z79.4 Long term (current) use of insulin
CPT/HCPCS: 96366 ×2; 96367 ×2; 96365; 96375; 99285; 36415; 93005; 80053 ×2; 82565; 83605; 83735; 84100; 84484; 85025 ×2; 85610; 85730; 87040; 83036; 73590; 76705; 93971; G0378 ×3; J3370; J2270; J0690 ×3; J0696

== ENCOUNTER 2024-05-22 09:34 | Emergency (ER) | payer MEDICARE, BC ==
[2024-05-22 09:49] VITALS: TEMP 97.5
--- NOTE | 2024-05-22 10:26 | ED ---
General Adult HPI - General Chief complaint: Nausea/Vomiting/Diarrhea Stated complaint: Diarrhea Time Seen by Provider: 05/22/24 10:04 Source: patient, RN notes reviewed Mode of arrival: wheelchair Limitations: no limitations - History of Present Illness Initial comments: 78-year-old male presents to the emergency department for evaluation of diarrhea x 10 days. Patient reports that he has had multiple loose bowel movements daily for the past 10 days. He reports stomach cramping. Denies any known fever, chills. Denies vomiting. He admits to weakness and lightheadedness. He reports that when he was walking into the ED he felt lightheaded and needed to sit down in a wheelchair when he walked in the door. - Related Data Home Medications Medication Instructions Recorded Confirmed Atorvastatin [Lipitor] 80 mg PO HS 09/01/20 05/03/24 Aspirin EC [Ecotrin Low Dose] 81 mg PO DAILY 09/11/21 05/03/24 Dapagliflozin Propanediol [Farxiga] 10 mg PO DAILY 06/10/23 05/03/24 Losartan Potassium 100 mg PO DAILY 06/10/23 05/03/24 Metoprolol Tartrate [Lopressor] 100 mg PO BID 06/10/23 05/03/24 Acetaminophen Tab [Tylenol] 500 mg PO Q6H PRN 05/03/24 05/03/24 Ezetimibe [Zetia] 10 mg PO DAILY 05/03/24 05/03/24 HYDROcodone/APAP 5-325MG [[place] 1 tab PO BID PRN 05/03/24 05/03/24 5-325] Insulin Glargine/Lixisenatide 16 units SQ PC-BRKFST 05/03/24 05/03/24 [Soliqua 100 Unit-33 Mcg/ml Pen] Previous Rx's Medication Instructions Recorded Apixaban [Eliquis] 5 mg PO BID tab 09/22/21 Nitroglycerin Sl Tabs [Nitrostat] 0.4 mg SUBLINGUAL Q5M PRN tab 09/22/21 Cephalexin [Keflex] 500 mg PO Q6HR 10 Days #40 cap 05/05/24 SILVER sulfADIAZINE CREAM 1 applic TOPICAL DAILY #25 gm 05/05/24 [Silvadene Cream] Allergies Allergy/AdvReac Type Severity Reaction Status Date / Time No Known Allergies Allergy Verified 05/22/24 09:49 Review of Systems ROS Statement: Those systems with pertinent positive or pertinent negative responses have been documented in the HPI. ROS Other: All systems not noted in ROS Statement are negative. Past Medical History Past Medical History: Atrial Fibrillation, Coronary Artery Disease (CAD), Cancer, Chest Pain / Angina, CVA/TIA, Diabetes Mellitus, GERD/Reflux, Hyperlipidemia, Hypertension, Osteoarthritis (OA), Prostate Disorder Additional Past Medical History / Comment(s): 5 Herniated discs in neck causing headaches & numbness in arm and right lower back and pain and right leg pain. Prostate Cancer- last radiation tx Mar 25-2016 had total of 44 tx. occ c onstipation, sepsis Hx Last Myocardial Infarction Date:: UNKOWN History of Any Multi-Drug Resistant Organisms: VRE Date of last positivie culture/infection: 09/18/20 MDRO Source:: Wound Past Surgical History: Adenoidectomy, Heart Catheterization, Heart Catheterization With Stent, Joint Replacement, Orthopedic Surgery, Tonsillectomy Additional Past Surgical History / Comment(s): PROSTATE BX., LT. KNEE ARTHROSCOPY X 2, CERVICAL FUSIONS, COLONOSCOPY, ÁNGEL. CATARTACTS.Pain Procedures , rt radio frequency procedures. , total 3 heart stents, hemorrhoidectomy,heart cath August 2017-lt knee replacement. Stent replacement , hip Past Anesthesia/Blood Transfusion Reactions: No Reported Reaction Additional Past Anesthesia/Blood Transfusion Reaction / Comment(s): doesn't like enclosed tight spaces Date of Last Stent Placement:: 04/24/17 Past Psychological History: No Psychological Hx Reported Smoking Status: Former smoker Past Alcohol Use History: None Reported Past Drug Use History: None Reported - Past Family History Father Additional Family Medical History / Comment(s): Father at age 49 from coronary artery disease. Brother(s) Additional Family Medical History / Comment(s): Patient has one brother with history of smoking and no other major medical problems. Patient does not have any sisters. Daughter(s) Additional Family Medical History / Comment(s): Patient has one daughter with history of muscular dystrophy and of pneumonia. Son(s) Family Medical History: No Reported History Additional Family Medical History / Comment(s): Patient has one son with no major medical problems. Mother Family Medical History: Cancer Additional Family Medical History / Comment(s): Mother at age 81 from uterine cancer with metastatic disease. General Exam Limitations: no limitations General appearance: alert, in no apparent distress Head exam: Present: atraumatic, normocephalic, normal inspection Eye exam: Present: normal appearance, PERRL, EOMI. Absent: scleral icterus, conjunctival injection, periorbital swelling Respiratory exam: Present: normal lung sounds bilaterally. Absent: respiratory distress, wheezes, rales, rhonchi, stridor Cardiovascular Exam: Present: bradycardia GI/Abdominal exam: Present: soft, hyperactive bowel sounds. Absent: distended, tenderness, guarding, rebound, rigid Extremities exam: Present: normal inspection, full ROM, normal capillary refill. Absent: tenderness, pedal edema, joint swelling, calf tenderness Back exam: Present: normal inspection Neurological exam: Present: alert, oriented X3 Psychiatric exam: Present: normal affect, normal mood Skin exam: Present: warm, dry, intact, normal color. Absent: rash Course Vital Signs 05/22/24 05/22/24 05/22/24 09:43 10:32 12:05 Temperature 97.5 F L Pulse Rate 65 57 L Pulse Rate [ 65 Sitting Retirement Plan Specialist] Pulse Rate [ 62 Standing Retirement Plan Specialist ] Pulse Rate [ 60 Supine Retirement Plan Specialist] Respiratory 18 20 Rate Blood Pressure 75/46 95/59 Blood Pressure 118/70 [Left Arm Sitting] Blood Pressure 106/65 [Left Arm Standing] Blood Pressure 113/74 [Left Arm Supine] O2 Sat by Pulse 97 94 L 97 Oximetry 05/22/24 05/22/24 05/22/24 13:23 14:18 15:16 Temperature Pulse Rate 62 55 L 63 Pulse Rate [ Sitting Retirement Plan Specialist] Pulse Rate [ Standing Retirement Plan Specialist ] Pulse Rate [ Supine Retirement Plan Specialist] Respiratory 20 20 18 Rate Blood Pressure 124/74 119/68 162/97 Blood Pressure [Left Arm Sitting] Blood Pressure [Left Arm Standing] Blood Pressure [Left Arm Supine] O2 Sat by Pulse 96 99 98 Oximetry Medical Decision Making - Medical Decision Making Was pt. sent in by a medical professional or institution (, PA, WEBSITE ADMIN, urgent care, hospital, or usp...) When possible be specific @ -[No] Did you speak to anyone other than the patient for history (EMS, parent, family, police, friend...)? What history was obtained from this source @ -[No] Did you review nursing and triage notes (agree or disagree)? Why? @ -[I reviewed and agree with nursing and triage notes] Were old charts reviewed (outside hosp., previous admission, EMS record, old EKG, old radiological studies, urgent care reports/EKG's, usp records)? Report findings @ -[No old charts were reviewed] Differential Diagnosis (chest pain, altered mental status, abdominal pain women, abdominal pain men, vaginal bleeding, weakness, fever, dyspnea, syncope, headache, dizziness, GI bleed, back pain, seizure, CVA, palpatations, mental health, musculoskeletal)? @ -[not applicable] EKG interpreted by me (3pts min.). @ -[EKG at 952 shows rate of 59 QRS 88, QTQTc [id number]] X-rays interpreted by me (1pt min.). @ -[None done] CT interpreted by me (1pt min.). @ -[None done] U/S interpreted by me (1pt. min.). @ -[None done] What testing was considered but not performed or refused? (CT, X-rays, U/S, labs)? Why? @ -[None] What meds were considered but not given or refused? Why? @ -[None] Did you discuss the management of the patient with other professionals (professionals i.e. , PA, WEBSITE ADMIN, lab, RT, psych nurse, social security benefits interviewer, slitting machine feeder, teacher, jailer/training officer, human services case manager)? Give summary @ -[No] Was smoking cessation discussed for >3mins.? @ -[No] Was critical care preformed (if so, how long)? @ -[No] Were there social determinants of health that impacted care today? How? (Homelessness, low income, unemployed, alcoholism, drug addiction, transportation, low edu. Level, literacy, decrease access to med. care, half-way, rehab)? @ -[No] Was there de-escalation of care discussed even if they declined (Discuss DNR or withdrawal of care, Hospice)? DNR status @ -[No] What co-morbidities impacted this encounter? (DM, HTN, Smoking, COPD, CAD, Cancer, CVA, ARF, Chemo, Hep., AIDS, mental health diagnosis, sleep apnea, morbid obesity)? @ -[None] Was patient admitted / discharged? Hospital course, mention meds given and route, prescriptions, significant lab abnormalities, going to OR and other pertinent info. @ -[hospital course] Undiagnosed new problem with uncertain prognosis? @ -[No] Drug Therapy requiring intensive monitoring for toxicity (Heparin, Nitro, Insulin, Cardizem)? @ -[No] Were any procedures done? @ -[No] Diagnosis/symptom? @ -[default] Acute, or Chronic, or Acute on Chronic? @ -[default] Uncomplicated (without systemic symptoms) or Complicated (systemic symptoms)? @ -[default] Side effects of treatment? @ -[No] Exacerbation, Progression, or Severe Exacerbation? @ -[No] Poses a threat to life or bodily function? How? (Chest pain, [place], [place], pneumonia, PE, COPD, DKA, ARF, appy, cholecystitis, CVA, Diverticulitis, Homicidal, Suicidal, threat to staff... and all critical care pts) @ -[No] - Lab Data Result diagrams: 05/22/24 10:28 05/22/24 10:28 Lab Results 05/22/24 05/22/24 05/22/24 Range/Units 10:28 10:28 10:28 WBC 5.6 (3.8-10.6) k/uL RBC 4.80 (4.30-5.90) m/uL Hgb 15.3 (13.0-17.5) gm/dL Hct 45.7 (39.0-53.0) % MCV 95.2 (80.0-100.0) fL MCH 32.0 (25.0-35.0) pg MCHC 33.6 (31.0-37.0) g/dL RDW 13.1 (11.5-15.5) % Plt Count 134 L (150-450) k/uL MPV 9.4 Neutrophils % 68 % Lymphocytes % 21 % Monocytes % 7 % Eosinophils % 0 % Basophils % 0 % Neutrophils # 3.8 (1.3-7.7) k/uL Lymphocytes # 1.2 (1.0-4.8) k/uL Monocytes # 0.4 (0-1.0) k/uL Eosinophils # 0.0 (0-0.7) k/uL Basophils # 0.0 (0-0.2) k/uL Sodium 133 L (137-145) mmol/L Potassium 4.4 (3.5-5.1) mmol/L Chloride 102 (98-107) mmol/L Carbon Dioxide 17 L (22-30) mmol/L Anion Gap 14 mmol/L BUN 23 H (9-20) mg/dL Creatinine 1.30 H (0.66-1.25) mg/dL Est GFR (CKD-EPI)AfAm 60 (>60 ml/min/1.73 sqM) Est GFR (CKD-EPI)NonAf 52 (>60 ml/min/1.73 sqM) Glucose 294 H (74-99) mg/dL Calcium 9.3 (8.4-10.2) mg/dL Total Bilirubin 2.1 H (0.2-1.3) mg/dL AST 50 (17-59) U/L ALT 61 H (4-49) U/L Alkaline Phosphatase 49 (38-126) U/L Total Protein 6.3 (6.3-8.2) g/dL Albumin 4.1 (3.5-5.0) g/dL C. difficile (EIA) Intrp Negative (Negative) Disposition Clinical Impression: Dehydration, Diarrhea Disposition: HOME SELF-CARE Condition: Stable Instructions (If sedation given, give patient instructions): Acute Diarrhea (ED) Additional Instructions: Please follow up with Dr. Astudillo. Return to the emergency department for new or worsening symptoms. Is patient prescribed a controlled substance at d/c from ED?: No Referrals: German Astudillo MD [Primary Care Provider] - 1-2 days
[2024-05-22] MEDS: SODIUM CHLORIDE 0.9% 1,000 ML IV ONE ×2 (10:34→14:10)
[2024-05-22 10:52] LABS: ALT 61 U/L (4-49); AST 50 U/L (17-59); African American GFR (CKD) 60 (>60 ml/min/1.73 sqM); Albumin 4.1 g/dL (3.5-5.0); Alkaline Phosphatase 49 U/L (38-126); Anion Gap 14 mmol/L; Basophils % (A) 0 %; Blood Urea Nitrogen 23 mg/dL (9-20); Calcium 9.3 mg/dL (8.4-10.2); Carbon Dioxide 17 mmol/L (22-30); Chloride 102 mmol/L (98-107); Eosinophils % (A) 0 %; Glucose 294 mg/dL (74-99); HCT 45.7 % (39.0-53.0); HGB 15.3 gm/dL (13.0-17.5); Lymphocytes # (A) 1.2 k/uL (1.0-4.8); Lymphocytes % (A) 21 %; MCHC 33.6 g/dL (31.0-37.0); MCV 95.2 fL (80.0-100.0); Mean Platelet Volume 9.4; Monocytes # (A) 0.4 k/uL (0-1.0); Monocytes % (A) 7 %; Neutrophils # (A) 3.8 k/uL (1.3-7.7); Neutrophils % (A) 68 %; Non-African American GFR(CKD) 52 (>60 ml/min/1.73 sqM); Platelet Count 134 k/uL (150-450); Potassium 4.4 mmol/L (3.5-5.1); RDW 13.1 % (11.5-15.5); Sodium 133 mmol/L (137-145); Total Bilirubin 2.1 mg/dL (0.2-1.3); Total Protein 6.3 g/dL (6.3-8.2); WBC 5.6 k/uL (3.8-10.6)
[2024-05-22] MEDS: SODIUM CHLORIDE 0.9% 500 ML 500 ML IV ONE (14:08)
[2024-05-22] MEDS: DIPHENOX-ATROP STARTER PACK 8 TAB BTL PO STA (16:08)
[2024-05-22 16:12] VITALS: BP 135/96; PULSE 62; RESP 16
== END 2024-05-22 16:18 | disposition home or self-care (01) ==
LOC: EC 09:34
DX: R19.7 Diarrhea, unspecified (principal); E86.0 Dehydration; R00.1 Bradycardia, unspecified; Z87.891 Personal history of nicotine dependence; Z86.73 Personal history of transient ischemic attack (TIA), and cerebral infarction without residual deficits
CPT/HCPCS: 36415; 80053; 83630; 85025; 87045; 87046; 87324; 93005; 96360; 96361; 99284

== ENCOUNTER → 2024-08-23 | Outpatient (CLI) | payer MEDICARE, BC ==
--- NOTE | 2024-08-23 13:30 | US ---
EXAMINATION TYPE: US venous doppler duplex LE RT DATE OF EXAM: 08/23/2024 12:56 PM COMPARISON: US(05/03/2024) CLINICAL INDICATION: Male, 79 years old with history of M79.604 PAIN IN RT LEG; rt leg injury/pain, n o hx of dvt, currently on blood thinners TECHNIQUE: The lower extremity deep venous system is examined utilizing real time linear array sonog daina with graded compression, color doppler sonography, and spectral doppler. SIDE PERFORMED: Right FINDINGS: VESSELS IMAGED: Common Femoral Vein Deep Femoral Vein Greater Saphenous Vein * Femoral Vein Popliteal Vein Small Saphenous Vein * Proximal Calf Veins (* superficial vessels) Right Leg: appears negative for DVT patency of the vessels. Spectral waveforms are within normal li mits. Calf veins limited due to severe edema IMPRESSION: Suboptimal study without acute DVT in the right lower extremity seen. [facility], , 08/23/2024 1:28 PM
--- NOTE | 2024-08-23 13:49 | XR ---
EXAMINATION TYPE: XR tibia fibula RT, XR knee complete RT DATE OF EXAM: 08/23/2024 CLINICAL INDICATION: Male, 79 years old with history of M79.604, pain after injury. TECHNIQUE: Two views of the right leg and 3 views knee are obtained. COMPARISON: Right leg x-ray May 03, 2024. FINDINGS: There is no acute fracture or dislocation seen in the right knee or leg. The right knee a nd ankle joints appear within normal limits. Moderate narrowing with mild spurring patellofemoral co mpartment is seen. Posterior arteriovascular calcification is present. IMPRESSION: There is no acute fracture or dislocation seen in the right knee or leg. [facility], , 08/23/2024 1:46 PM
== END | disposition home or self-care (01) ==
LOC: RADUSWWP 12:42
PROVIDERS: ATTEND Internal Medicine
DX: S89.91XA Unspecified injury of right lower leg, initial encounter (principal); Z79.01 Long term (current) use of anticoagulants

== ENCOUNTER 2024-08-28 13:10 | Emergency (ER) | payer MEDICARE, BC ==
[2024-08-28 13:45] VITALS: PULSE 67; RESP 18; TEMP 98.3
--- NOTE | 2024-08-28 14:34 | ED ---
General Adult HPI - General Chief complaint: Extremity Injury, Lower Stated complaint: R leg pain Time Seen by Provider: 08/28/24 13:47 Source: patient, RN notes reviewed Mode of arrival: wheelchair Limitations: no limitations - History of Present Illness Initial comments: Patient is an 79-year-old male present to the emergency department with concerns with right leg swelling. Patient did bump his leg in the shower a week ago. Patient does have swelling in the area of the bump however the entire lower leg is swollen. More discomfort and swelling anterior than posterior. No fever. No chest pain or dyspnea. Patient did have x-ray and ultrasound done several days ago that were reported as normal to him. Patient thinks swelling has worsened since that time. Discomfort is also worsened somewhat. - Related Data Home Medications Medication Instructions Recorded Confirmed Atorvastatin [Lipitor] 80 mg PO HS 09/01/20 05/03/24 Aspirin EC [Ecotrin Low Dose] 81 mg PO DAILY 09/11/21 05/03/24 Dapagliflozin Propanediol [Farxiga] 10 mg PO DAILY 06/10/23 05/03/24 Losartan Potassium 100 mg PO DAILY 06/10/23 05/03/24 Metoprolol Tartrate [Lopressor] 100 mg PO BID 06/10/23 05/03/24 Acetaminophen Tab [Tylenol] 500 mg PO Q6H PRN 05/03/24 05/03/24 Ezetimibe [Zetia] 10 mg PO DAILY 05/03/24 05/03/24 HYDROcodone/APAP 5-325MG [[place] 1 tab PO BID PRN 05/03/24 05/03/24 5-325] Insulin Glargine/Lixisenatide 16 units SQ PC-BRKFST 05/03/24 05/03/24 [Soliqua 100 Unit-33 Mcg/ml Pen] Previous Rx's Medication Instructions Recorded Apixaban [Eliquis] 5 mg PO BID tab 09/22/21 Nitroglycerin Sl Tabs [Nitrostat] 0.4 mg SUBLINGUAL Q5M PRN tab 09/22/21 Cephalexin [Keflex] 500 mg PO Q6HR 10 Days #40 cap 05/05/24 SILVER sulfADIAZINE CREAM 1 applic TOPICAL DAILY #25 gm 05/05/24 [Silvadene Cream] Cephalexin [Keflex] 500 mg PO QID #40 cap 08/28/24 Allergies Allergy/AdvReac Type Severity Reaction Status Date / Time No Known Allergies Allergy Verified 08/28/24 13:45 Review of Systems ROS Statement: Those systems with pertinent positive or pertinent negative responses have been documented in the HPI. ROS Other: All systems not noted in ROS Statement are negative. Constitutional: Denies: fever Eyes: Denies: eye pain ENT: Denies: ear pain Respiratory: Denies: cough Cardiovascular: Denies: chest pain Endocrine: Denies: fatigue Gastrointestinal: Denies: abdominal pain Skin: Reports: as per HPI Past Medical History Past Medical History: Atrial Fibrillation, Coronary Artery Disease (CAD), Cancer, Chest Pain / Angina, CVA/TIA, Diabetes Mellitus, GERD/Reflux, Hyperlipidemia, Hypertension, Osteoarthritis (OA), Prostate Disorder Additional Past Medical History / Comment(s): 5 Herniated discs in neck causing headaches & numbness in arm and right lower back and pain and right leg pain. Prostate Cancer- last radiation tx Mar 25-2016 had total of 44 tx. occ constipation, sepsis Hx Last Myocardial Infarction Date:: UNKOWN History of Any Multi-Drug Resistant Organisms: VRE Date of last positivie culture/infection: 09/18/20 MDRO Source:: Wound Past Surgical History: Adenoidectomy, Heart Catheterization, Heart Catheterization With Stent, Joint Replacement, Orthopedic Surgery, Tonsillectomy Additional Past Surgical History / Comment(s): PROSTATE BX., LT. KNEE ARTHROSCOPY X 2, CERVICAL FUSIONS, COLONOSCOPY, ÁNGEL. CATARTACTS.Pain Procedures , rt radio frequency procedures. , total 3 heart stents, hemorrhoidectomy,heart cath August 2017-lt knee replacement. Stent replacement , hip Past Anesthesia/Blood Transfusion Reactions: No Reported Reaction Additional Past Anesthesia/Blood Transfusion Reaction / Comment(s): doesn't like enclosed tight spaces Date of Last Stent Placement:: 04/24/17 Past Psychological History: No Psychological Hx Reported Smoking Status: Former smoker Past Alcohol Use History: None Reported Past Drug Use History: None Reported - Past Family History Father Additional Family Medical History / Comment(s): Father at age 49 from coronary artery disease. Brother(s) Additional Family Medical History / Comment(s): Patient has one brother with history of smoking and no other major medical problems. Patient does not have any sisters. Daughter(s) Additional Family Medical History / Comment(s): Patient has one daughter with history of muscular dystrophy and of pneumonia. Son(s) Family Medical History: No Reported History Additional Family Medical History / Comment(s): Patient has one son with no major medical problems. Mother Family Medical History: Cancer Additional Family Medical History / Comment(s): Mother at age 81 from uterine cancer with metastatic disease. General Exam Limitations: no limitations General appearance: alert, in no apparent distress Head exam: Present: normocephalic Eye exam: Present: normal appearance Neck exam: Present: normal inspection Respiratory exam: Present: normal lung sounds bilaterally Cardiovascular Exam: Present: regular rate, normal rhythm Expanded Peripheral pulses: 2+: Dorsalis Pedis (R) GI/Abdominal exam: Present: soft. Absent: tenderness Extremities exam: Present: other (Right lower leg with swelling and mild erythema just distal to the knee with associated tenderness. There is swelling to the anterior yanes diffusely. Right great toe does have some erythema as well with mild skin breakdown concerning for early infection/paronychia) Neurological exam: Present: alert Psychiatric exam: Present: normal affect, normal mood Skin exam: Present: erythema (Right toe mild erythema. Right lower leg below the knee area of injury with mild erythema as well) Course Vital Signs 08/28/24 13:41 Temperature 98.3 F Pulse Rate 67 Respiratory 18 Rate Blood Pressure 165/54 O2 Sat by Pulse 95 Oximetry Medical Decision Making - Medical Decision Making Was pt. sent in by a medical professional or institution (, PA, GARMENT FORM ASSEMBLER, urgent care, hospital, or usp...) When possible be specific @ -No Did you speak to anyone other than the patient for history (EMS, parent, family, police, friend...)? What history was obtained from this source @ -No Did you review nursing and triage notes (agree or disagree)? Why? @ -I reviewed and agree with nursing and triage notes Were old charts reviewed (outside hosp., previous admission, EMS record, old EKG, old radiological studies, urgent care reports/EKG's, usp records)? Report findings @ -No old charts were reviewed Differential Diagnosis (chest pain, altered mental status, abdominal pain women, abdominal pain men, vaginal bleeding, weakness, fever, dyspnea, syncope, headache, dizziness, GI bleed, back pain, seizure, CVA, palpatations, mental health, musculoskeletal)? @ -Ambulance visit MDM differential musculoskeletal EKG interpreted by me (3pts min.). @ -As above X-rays interpreted by me (1pt min.). @ -None done CT interpreted by me (1pt min.). @ -None done U/S interpreted by me (1pt. min.). @ -Ultrasound right lower leg without evidence of DVT ultrasound right lower leg without evidence of DVT What testing was considered but not performed or refused? (CT, X-rays, U/S, labs)? Why? @ -None What meds were considered but not given or refused? Why? @ -None Did you discuss the management of the patient with other professionals (professionals i.e. , PA, GARMENT FORM ASSEMBLER, lab, RT, psych nurse, marriage and family social worker, before school, teacher, attendance officer, foster care case manager)? Give summary @ -No Was smoking cessation discussed for >3mins.? @ -No Was critical care preformed (if so, how long)? @ -No Were there social determinants of health that impacted care today? How? (Homelessness, low income, unemployed, alcoholism, drug addiction, transportation, low edu. Level, literacy, decrease access to med. care, long-term, rehab)? @ -No Was there de-escalation of care discussed even if they declined (Discuss DNR or withdrawal of care, Hospice)? DNR status @ -No What co-morbidities impacted this encounter? (DM, HTN, Smoking, COPD, CAD, Cancer, CVA, ARF, Chemo, Hep., AIDS, mental health diagnosis, sleep apnea, morbid obesity)? @ -None Was patient admitted / discharged? Hospital course, mention meds given and route, prescriptions, significant lab abnormalities, going to OR and other pertinent info. @ -Patient presents with redness and swelling following injury 1 to 2 weeks ago. Patient also has signs of early infection of the right toe. Patient will treat with antibiotics for early cellulitis. Patient advised need for follow-up and need to see podiatry. Undiagnosed new problem with uncertain prognosis? @ -No Drug Therapy requiring intensive monitoring for toxicity (Heparin, Nitro, Insulin, Cardizem)? @ -No Were any procedures done? @ -No Diagnosis/symptom? @ -Cellulitis Acute, or Chronic, or Acute on Chronic? @ -Acute Uncomplicated (without systemic symptoms) or Complicated (systemic symptoms)? @ -Default Side effects of treatment? @ -Goal Exacerbation, Progression, or Severe Exacerbation? @ -No Poses a threat to life or bodily function? How? (Chest pain, [place], [place], pneumonia, PE, COPD, DKA, ARF, appy, cholecystitis, CVA, Diverticulitis, Homicidal, Suicidal, threat to staff... and all critical care pts) @ -No Disposition Clinical Impression: Cellulitis of right lower leg Disposition: HOME SELF-CARE Condition: Stable Instructions (If sedation given, give patient instructions): Cellulitis (ED) Additional Instructions: Prescription sent to pharmacy. Please do follow-up with your primary care physician and podiatry this week. Return for fever, increased pain, increased swelling, redness, worsening or changing symptoms or other concerns. Prescriptions: Cephalexin [Keflex] 500 mg PO QID #40 cap Is patient prescribed a controlled substance at d/c from ED?: No Referrals: German Astudillo MD [Primary Care Provider] - 1-2 days Estrada Saenz DPM [STAFF PHYSICIAN] - 1-2 days Time of Disposition: 15:44
--- NOTE | 2024-08-28 15:15 | US ---
EXAMINATION TYPE: US venous doppler duplex LE RT DATE OF EXAM: 08/28/2024 3:07 PM COMPARISON: 08/23/2024 CLINICAL INDICATION: Male, 79 years old with history of swelling; rt leg swelling, throbbing/pain, no hx of dvt, currently on blood thinners, Pain TECHNIQUE: The lower extremity deep venous system is examined utilizing real time linear array sonog daina with graded compression, color doppler sonography, and spectral doppler. SIDE PERFORMED: Right FINDINGS: VESSELS IMAGED: Common Femoral Vein Deep Femoral Vein Greater Saphenous Vein * Femoral Vein Popliteal Vein Small Saphenous Vein * Proximal Calf Veins (* superficial vessels) Right Leg: Negative for DVT, Color Doppler imaging shows patency of the vessels. Spectral waveforms are within normal limits. Rt calf: edema seen limited PTV due to severe edema IMPRESSION: 1. No ultrasound evidence for deep venous thrombosis. 2. Right calf subcutaneous edema. [facility], , 08/28/2024 3:12 PM
[2024-08-28 15:54] VITALS: BP 142/81
== END 2024-08-28 15:57 | disposition home or self-care (01) ==
LOC: EC 13:10
DX: L03.115 Cellulitis of right lower limb (principal); Z86.73 Personal history of transient ischemic attack (TIA), and cerebral infarction without residual deficits; Z87.891 Personal history of nicotine dependence
CPT/HCPCS: 99283

== ENCOUNTER 2024-11-05 16:13 | Inpatient (IN) | payer MEDICARE, BC ==
[2024-11-05] MEDS: ONDANSETRON 4 MG/2 ML VIAL IVP STA (16:33)
--- NOTE | 2024-11-05 16:48 | ED ---
Altered Mental Status HPI - General Chief Complaint: Altered Mental Status Stated Complaint: AMS/SI Source: EMS, RN notes reviewed, old records reviewed Mode of arrival: EMS Limitations: altered mental status - History of Present Illness Initial Comments: This is an 79-year-old male unable to give history as to why he is in the emergency room today. Allegedly per EMS and per PD they were called the patient's house for making suicidal statements and threats, patient does not describe any suicidal homicidal ideas here in the ER but unable to answer where he is or how he got here, patient is unsure why he is in the ER does appear to have abdominal pain on palpation MD Complaint: altered mental status, confusion, decreased responsiveness -: unknown Severity: moderate Consistency of Symptoms: unknown Associated Symptoms: denies other symptoms - Related Data Home Medications Medication Instructions Recorded Confirmed Atorvastatin [Lipitor] 80 mg PO HS 09/01/20 11/05/24 Aspirin EC [Ecotrin Low Dose] 81 mg PO BID 09/11/21 11/05/24 Dapagliflozin Propanediol [Farxiga] 10 mg PO DAILY 06/10/23 11/05/24 Losartan Potassium 100 mg PO DAILY 06/10/23 11/05/24 Metoprolol Tartrate [Lopressor] 100 mg PO BID 06/10/23 11/05/24 HYDROcodone/APAP 5-325MG [[place] 1 tab PO Q12H PRN 05/03/24 11/05/24 5-325] Insulin Glargine/Lixisenatide 20 units SQ AC-BRKFST 11/05/24 11/05/24 [[place] 100 Unit-33 Mcg/ml Pen] Previous Rx's Medication Instructions Recorded Apixaban [Eliquis] 5 mg PO BID tab 09/22/21 Nitroglycerin Sl Tabs [Nitrostat] 0.4 mg SUBLINGUAL Q5M PRN tab 09/22/21 Linezolid [Zyvox] 600 mg PO Q12H #20 tab 09/06/24 amLODIPine [Norvasc] 5 mg PO DAILY #90 tab 09/06/24 Allergies Allergy/AdvReac Type Severity Reaction Status Date / Time No Known Allergies Allergy Verified 11/05/24 16:22 Review of Systems ROS Statement: Those systems with pertinent positive or pertinent negative responses have been documented in the HPI. ROS Other: All systems not noted in ROS Statement are negative. Past Medical History Past Medical History: Atrial Fibrillation, Coronary Artery Disease (CAD), Cancer, Chest Pain / Angina, CVA/TIA, Diabetes Mellitus, GERD/Reflux, Hyperlipidemia, Hypertension, Osteoarthritis (OA), Prostate Disorder Additional Past Medical History / Comment(s): 5 Herniated discs in neck causing headaches & numbness in arm and right lower back and pain and right leg pain. Prostate Cancer- last radiation tx Mar 25-2016 had total of 44 tx. occ constipation, sepsis Hx Last Myocardial Infarction Date:: UNKOWN History of Any Multi-Drug Resistant Organisms: VRE Date of last positivie culture/infection: 09/18/20 MDRO Source:: Wound Past Surgical History: Adenoidectomy, Heart Catheterization, Heart Catheterization With Stent, Joint Replacement, Orthopedic Surgery, Tonsillectomy Additional Past Surgical History / Comment(s): PROSTATE BX., LT. KNEE ARTHROSCOPY X 2, CERVICAL FUSIONS, COLONOSCOPY, ÁNGEL. CATARTACTS.Pain Procedures , rt radio frequency procedures. , total 3 heart stents, hemorrhoidectomy,heart cath August 2017-lt knee replacement. Stent replacement \2020, hip Past Anesthesia/Blood Transfusion Reactions: No Reported Reaction Additional Past Anesthesia/Blood Transfusion Reaction / Comment(s): doesn't like enclosed tight spaces Date of Last Stent Placement:: 04/24/17 Past Psychological History: No Psychological Hx Reported Smoking Status: Former smoker Past Alcohol Use History: None Reported Past Drug Use History: None Reported - Past Family History Father Additional Family Medical History / Comment(s): Father at age 49 from coronary artery disease. Brother(s) Additional Family Medical History / Comment(s): Patient has one brother with history of smoking and no other major medical problems. Patient does not have any sisters. Daughter(s) Additional Family Medical History / Comment(s): Patient has one daughter with history of muscular dystrophy and of pneumonia. Son(s) Family Medical History: No Reported History Additional Family Medical History / Comment(s): Patient has one son with no major medical problems. Mother Family Medical History: Cancer Additional Family Medical History / Comment(s): Mother at age 81 from uterine cancer with metastatic disease. General Exam Limitations: altered mental status General appearance: alert, in no apparent distress Head exam: Present: atraumatic, normocephalic, normal inspection Eye exam: Present: normal appearance, PERRL, EOMI. Absent: scleral icterus, conjunctival injection, periorbital swelling ENT exam: Present: normal exam, mucous membranes moist Neck exam: Present: normal inspection. Absent: tenderness, meningismus, lymphadenopathy Respiratory exam: Present: normal lung sounds bilaterally. Absent: respiratory distress, wheezes, rales, rhonchi, stridor Cardiovascular Exam: Present: regular rate, normal rhythm, normal heart sounds. Absent: systolic murmur, diastolic murmur, rubs, gallop, clicks GI/Abdominal exam: Present: soft, normal bowel sounds. Absent: distended, tend erness, guarding, rebound, rigid Extremities exam: Present: normal inspection, full ROM, normal capillary refill. Absent: tenderness, pedal edema, joint swelling, calf tenderness Back exam: Present: normal inspection Neurological exam: Present: alert, oriented X3, CN II-XII intact Psychiatric exam: Present: normal affect, normal mood Skin exam: Present: warm, dry, intact, normal color. Absent: rash Course Vital Signs 11/05/24 11/05/24 11/05/24 16:17 17:00 18:07 Temperature 98.7 F Pulse Rate 81 80 77 Pulse Rate [ Pulse Oximetery ] Respiratory 22 16 18 Rate Blood Pressure 179/105 190/85 199/97 Blood Pressure [Left Arm] O2 Sat by Pulse 98 95 99 Oximetry 11/05/24 11/05/24 11/05/24 19:00 20:00 21:24 Temperature 99.0 F Pulse Rate 85 87 Pulse Rate [ 91 Pulse Oximetery ] Respiratory 18 18 17 Rate Blood Pressure 171/89 176/95 Blood Pressure 184/90 [Left Arm] O2 Sat by Pulse 96 98 95 Oximetry 11/05/24 21:29 Temperature 99.1 F Pulse Rate 88 Pulse Rate [ Pulse Oximetery ] Respiratory 18 Rate Blood Pressure 141/73 Blood Pressure [Left Arm] O2 Sat by Pulse 95 Oximetry - Reevaluation(s) Reevaluation #1: 11/05/24 16:55 Medical records reviewed Reevaluation #2: No change in symptoms here in the ER Reevaluation #3: Patient informed of results questions answered Reevaluation #4: Was pt. sent in by a medical professional or institution (Dr., PA, BOOKSTORE CLERK, urgent care, hospital, or care home...) When possible be specific @ -no Did you speak to anyone other than the patient for history (EMS, parent, family, police, friend...)? What history was obtained from this source @ -no Did you review nursing and triage notes (agree or disagree)? Why? @ -agree Are old charts reviewed (outside hosp., previous admission, EMS record, old EKG, old radiological studies, urgent care reports/EKG's, care home records)? Report findings @ -yes Differential Diagnosis (chest pain, altered mental status, abdominal pain women, abdominal pain men, vaginal bleeding, weakness, fever, dyspnea, syncope, headache, dizziness, GI bleed, back pain, seizure, CVA, palpatations, mental health, musculoskeletal)? @ -prior EKG interpreted by me (3pts min.). @ -yes X-rays interpreted by me (1pt min.). @ -yes negative for acute disease CT interpreted by me (1pt min.). @ -yes negative for acute disease U/S interpreted by me (1pt. min.). @ -no What testing was considered but not performed or refused? (CT, X-rays, U/S, labs)? Why? @ -none What meds were considered but not given or refused? Why? @ -none Did you discuss the management of the patient with other professionals (pr ofessionals i.e. TANA Murillo, BOOKSTORE CLERK, lab, RT, psych nurse, adoption social worker, ply bander, teacher, tax revenue officer, therapeutic case manager)? Give summary @ -no Was smoking cessation discussed for >3mins.? @ -no Was critical care preformed (if so, how long)? @ -no Were there social determinants of health that impacted care today? How? (Homelessness, low income, unemployed, alcoholism, drug addiction, transportation, low edu. Level, literacy, decrease access to med. care, intermediate, rehab)? @ -none Was there de-escalation of care discussed even if they declined (Discuss DNR or withdrawal of care, Hospice)? DNR status @ -no What co-morbidities impacted this encounter? (DM, HTN, Smoking, COPD, CAD, Cancer, CVA, ARF, Chemo, Hep., AIDS, mental health diagnosis, sleep apnea, morbid obesity)? @ -none Was patient admitted / discharged? Hospital course, mention meds given and route, prescriptions, significant lab abnormalities, going to OR and other pertinent info. @ - 79 male to ER acute CVA patient will be admitted for acute CVA Admitted Undiagnosed new problem with uncertain prognosis? @ -no Drug Therapy requiring intensive monitoring for toxicity (Heparin, Nitro, Insulin, Cardizem)? @ -no Were any procedures done? @ -no Diagnosis/symptom? @ -Acute CVA Acute, or Chronic, or Acute on Chronic? @ -Acute Uncomplicated (without systemic symptoms) or Complicated (systemic symptoms)? @ -Complicated Side effects of treatment? @ -no Exacerbation, Progression, or Severe Exacerbation? @ -exacerbation Poses a threat to life or bodily function? How? (Chest pain, USA, MD, pneumonia, PE, COPD, DKA, ARF, appy, cholecystitis, CVA, Diverticulitis, Homicidal, Suicidal, threat to staff... and all critical care pts) @ -yes Reevaluation #5: Differential Altered Mental Status: Hypoglycemia, DKA, hypercapnia, ETOH, overdose, CO poisoning, trauma, myxedema coma, HTN encephalopathy, infection, encephalitis, psychosis, intercranial hemorrhage, hepatic encephalopathy, meningitis, CVA, this is not meant to be an all-inclusive list - Consultations Consultation #1: Spoke with admitting physicians who agreed admit this patient Medical Decision Making - Medical Decision Making 79 male to ER acute CVA patient will be admitted for acute CVA - Lab Data Result diagrams: 11/07/24 10:05 11/07/24 10:05 Lab Results 11/05/24 11/05/24 11/05/24 Range/Units 16:30 16:30 16:30 WBC 7.76 (4.50-10.00) 10*3/uL RBC 4.73 (4.40-5.60) 10*6/uL Hgb 15.4 (13.0-17.0) g/dL Hct 43.6 (39.6-50.0) % MCV 92.2 (80.0-97.0) fL MCH 32.6 H (27.0-32.0) pg MCHC 35.3 (32.0-37.0) g/dL Plt Count 127 L (140-440) 10*3/uL MPV 10.2 (9.5-12.2) fL Immature Gran % (Auto) 0.1 % Neutrophils % 72.2 % Lymphocytes % 20.4 % Monocytes % 7.0 % Eosinophils % 0.0 % Basophils % 0.3 % Immature Gran # 0.01 (0.00-0.04) 10*3/uL Neutrophils # 5.61 (1.80-7.70) 10*3/uL Lymphocytes # 1.58 (0.90-5.00) 10*3/uL Monocytes # 0.54 (0.20-1.00) 10*3/uL Eosinophils # 0.00 L (0.04-0.35) 10*3/uL Basophils # 0.02 (0.00-0.10) 10*3/uL Immature Plt Fraction 1.9 (1.1-6.1) % PT 11.8 (10.0-12.5) sec INR 1.1 (<1.2) APTT 23.1 (22.0-30.0) sec Sodium 139 (137-145) mmol/L Potassium 4.7 (3.5-5.1) mmol/L Chloride 103 (98-107) mmol/L Carbon Dioxide 19 L (22-30) mmol/L Anion Gap 17 mmol/L BUN 29 H (9-20) mg/dL Creatinine 1.15 (0.66-1.25) mg/dL Est GFR (CKD-EPI)AfAm 70 (>60 ml/min/1.73 sqM) Est GFR (CKD-EPI)NonAf 60 (>60 ml/min/1.73 sqM) Glucose 223 H (74-99) mg/dL Calcium 9.6 (8.4-10.2) mg/dL Phosphorus 4.5 (2.5-4.5) mg/dL Magnesium 1.8 (1.6-2.3) mg/dL Total Bilirubin 2.5 H (0.2-1.3) mg/dL AST 47 (17-59) U/L ALT 54 H (4-49) U/L Alkaline Phosphatase 48 (38-126) U/L Ammonia (<30) umol/L Troponin I (0.000-0.034) ng/mL Total Protein 7.5 (6.3-8.2) g/dL Albumin 4.8 (3.5-5.0) g/dL TSH 0.666 (0.465-4.680) mIU/L Urine Color Urine Appearance (Clear) Urine pH (5.0-8.0) Ur Specific [place] (1.001-1.035) Urine Protein (Negative) Urine Glucose (UA) (Negative) Urine Ketones (Negative) Urine Blood (Negative) Urine Nitrite (Negative) Urine Bilirubin (Negative) Urine Urobilinogen (<2.0) mg/dL Ur Leukocyte Esterase (Negative) Urine RBC (0-5) /hpf Urine WBC (0-5) /hpf Ur Squamous Epith Cells (0-4) /hpf Hyaline Casts (0-2) /lpf Urine Opiates Screen (NotDetected) Ur Oxycodone Screen (NotDetected) Urine Methadone Screen (NotDetected) Ur Barbiturates Screen (NotDetected) U Tricyclic Antidepress (NotDetected) Ur Phencyclidine Scrn (NotDetected) Ur Amphetamines Screen (NotDetected) U Methamphetamines Scrn (NotDetected) U Benzodiazepines Scrn (NotDetected) Urine Cocaine Screen (NotDetected) U Marijuana (THC) Screen (NotDetected) Serum Alcohol <10 mg/dL 11/05/24 11/05/24 11/05/24 Range/Units 16:30 16:30 18:32 WBC (4.50-10.00) 10*3/uL RBC (4.40-5.60) 10*6/uL Hgb (13.0-17.0) g/dL Hct (39.6-50.0) % MCV (80.0-97.0) fL MCH (27.0-32.0) pg MCHC (32.0-37.0) g/dL Plt Count (140-440) 10*3/uL MPV (9.5-12.2) fL Immature Gran % (Auto) % Neutrophils % % Lymphocytes % % Monocytes % % Eosinophils % % Basophils % % Immature Gran # (0.00-0.04) 10*3/uL Neutrophils # (1.80-7.70) 10*3/uL Lymphocytes # (0.90-5.00) 10*3/uL Monocytes # (0.20-1.00) 10*3/uL Eosinophils # (0.04-0.35) 10*3/uL Basophils # (0.00-0.10) 10*3/uL Immature Plt Fraction (1.1-6.1) % PT (10.0-12.5) sec INR (<1.2) APTT (22.0-30.0) sec Sodium (137-145) mmol/L Potassium (3.5-5.1) mmol/L Chloride (98-107) mmol/L Carbon Dioxide (22-30) mmol/L Anion Gap mmol/L BUN (9-20) mg/dL Creatinine (0.66-1.25) mg/dL Est GFR (CKD-EPI)AfAm (>60 ml/min/1.73 sqM) Est GFR (CKD-EPI)NonAf (>60 ml/min/1.73 sqM) Glucose (74-99) mg/dL Calcium (8.4-10.2) mg/dL Phosphorus (2.5-4.5) mg/dL Magnesium (1.6-2.3) mg/dL Total Bilirubin (0.2-1.3) mg/dL AST (17-59) U/L ALT (4-49) U/L Alkaline Phosphatase (38-126) U/L Ammonia <9 (<30) umol/L Troponin I <0.012 (0.000-0.034) ng/mL Total Protein (6.3-8.2) g/dL Albumin (3.5-5.0) g/dL TSH (0.465-4.680) mIU/L Urine Color Colorless Urine Appearance Clear (Clear) Urine pH 5.5 (5.0-8.0) Ur Specific [place] 1.020 (1.001-1.035) Urine Protein 1+ H (Negative) Urine Glucose (UA) 4+ H (Negative) Urine Ketones Negative (Negative) Urine Blood Trace H (Negative) Urine Nitrite Negative (Negative) Urine Bilirubin Negative (Negative) Urine Urobilinogen <2.0 (<2.0) mg/dL Ur Leukocyte Esterase Negative (Negative) Urine RBC <1 (0-5) /hpf Urine WBC 2 (0-5) /hpf Ur Squamous Epith Cells <1 (0-4) /hpf Hyaline Casts 1 (0-2) /lpf Urine Opiates Screen Detected H (NotDetected) Ur Oxycodone Screen Not Detected (NotDetected) Urine Methadone Screen Not Detected (NotDetected) Ur Barbiturates Screen Not Detected (NotDetected) U Tricyclic Antidepress Not Detected (NotDetected) Ur Phencyclidine Scrn Not Detected (NotDetected) Ur Amphetamines Screen Not Detected (NotDetected) U Methamphetamines Scrn Not Detected (NotDetected) U Benzodiazepines Scrn Not Detected (NotDetected) Urine Cocaine Screen Not Detected (NotDetected) U Marijuana (THC) Screen Not Detected (NotDetected) Serum Alcohol mg/dL - EKG Data -: EKG Interpreted by Me (EKG sinus 79 IN 181 QRS 90 QTc 421) - Radiology Data Radiology results: report reviewed (Chest x-ray CT brain C-spine CT chest and pelvis negative for acute disease), image reviewed Disposition Clinical Impression: Altered mental status, CVA (cerebral vascular accident), Expressive aphasia Disposition: ADMITTED IP TO THIS [facility] Condition: Fair Is patient prescribed a controlled substance at d/c from ED?: No Time of Disposition: 19:00
[2024-11-05] MEDS: SODIUM CHLORIDE 0.9% 1,000 ML IV ONE (17:02)
[2024-11-05 17:03] LABS: Basophils # (A) 0.02 10*3/uL (0.00-0.10); Basophils % (A) 0.3 %; Eosinophils # (A) 0.00 10*3/uL (0.04-0.35); Eosinophils % (A) 0.0 %; HCT 43.6 % (39.6-50.0); HGB 15.4 g/dL (13.0-17.0); Immature Platelet Fraction 1.9 % (1.1-6.1); Lymphocytes # (A) 1.58 10*3/uL (0.90-5.00); Lymphocytes % (A) 20.4 %; MCH 32.6 pg (27.0-32.0); MCHC 35.3 g/dL (32.0-37.0); MCV 92.2 fL (80.0-97.0); Monocytes # (A) 0.54 10*3/uL (0.20-1.00); Monocytes % (A) 7.0 %; Neutrophils # (A) 5.61 10*3/uL (1.80-7.70); Neutrophils % (A) 72.2 %; Platelet Count 127 10*3/uL (140-440); RBC 4.73 10*6/uL (4.40-5.60); RDW 12.5 % (11.5-14.5); WBC 7.76 10*3/uL (4.50-10.00)
[2024-11-05 17:09] LABS: ALT 54 U/L (4-49); AST 47 U/L (17-59); African American GFR (CKD) 70 (>60 ml/min/1.73 sqM); Albumin 4.8 g/dL (3.5-5.0); Alkaline Phosphatase 48 U/L (38-126); Anion Gap 17 mmol/L; Blood Urea Nitrogen 29 mg/dL (9-20); Calcium 9.6 mg/dL (8.4-10.2); Carbon Dioxide 19 mmol/L (22-30); Chloride 103 mmol/L (98-107); Glucose 223 mg/dL (74-99); Magnesium 1.8 mg/dL (1.6-2.3); Non-African American GFR(CKD) 60 (>60 ml/min/1.73 sqM); Potassium 4.7 mmol/L (3.5-5.1); Sodium 139 mmol/L (137-145); Total Protein 7.5 g/dL (6.3-8.2)
[2024-11-05 17:18] LABS: INR 1.1 (<1.2); Partial Thromboplastin Time 23.1 sec (22.0-30.0); Prothrombin Time 11.8 sec (10.0-12.5)
--- NOTE | 2024-11-05 17:26 | XR ---
EXAMINATION TYPE: XR chest 2V DATE OF EXAM: 11/05/2024 5:22 PM COMPARISON: Prior chest radiograph 08/01/2022. CLINICAL INDICATION: Male, 79 years old with history of altered mental status; [facility] TECHNIQUE: XR chest 2V Frontal and lateral views of the chest. FINDINGS: Lungs/Pleura: Low lung volumes limit study. There is no evidence of pleural effusion, focal consolida tion, or pneumothorax. Pulmonary vascularity: Unremarkable. Heart/mediastinum: Cardiac silhouette prominent, possibly related to low lung volumes/technique-relat ed factors. Musculoskeletal: No acute osseous pathology. Other findings: None IMPRESSION: No acute cardiopulmonary disease/process. [facility], , 11/05/2024 5:24 PM
--- NOTE | 2024-11-05 17:59 | CT ---
EXAMINATION TYPE: CT brain cspine wo con DATE OF EXAM: 11/05/2024 5:36 PM COMPARISON: None. CLINICAL INDICATION: Male, 79 years old with history of pain; confusion TECHNIQUE: Brain: Multiple axial CT images of the brain were obtained without IV contrast. Cspine: Axial CT images from the skull base to the inferior aspect of T2 we obtained without intraven ous contrast. Coronal and sagittal reformatted images were also reviewed. . CT DLP: 1554 mGycm, Automated exposure control for dose reduction was used. FINDINGS: Brain: Extra-axial spaces: No abnormal extra-axial fluid collections. Ventricular system: Dilatation in proportion to cerebral atrophy. Cerebral parenchyma: Cerebral atrophy. No acute intraparenchymal hemorrhage or mass effect. The lynne -white junction is well differentiated. Scattered hypoattenuating areas are seen within the white mat ter. Cerebellum: Unremarkable. Mass effect: No evidence of midline shift. Intracranial vasculature: Atherosclerotic calcifications of the intracranial vessels. Soft tissues: Normal. Calvarium/osseous structures: No depressed skull fracture. Paranasal sinuses and mastoid air cells: Clear. Visualized orbits: The lenses are surgically removed from the globes. Cervical spine: Fracture: None. Osseous structures: Multilevel degenerative disc disease changes with endplate spurring and disc oste ophyte complex's. Vertebral alignment: Within normal limits. Spinal canal/Neural Foramina: Multilevel facet arthropathy, uncovertebral hypertrophy and posterior d isc osteophyte complex these cause varying degrees of multilevel neural foraminal narrowing. No defin ite high-grade spinal canal stenosis although evaluation of the spinal canal is significantly limited due to streak artifact. Neck soft tissues: Prevertebral soft tissues are within normal limits. Other: The airway is patent. The lung apices are clear. IMPRESSION: 1. No acute intracranial process. 2. No acute fracture or traumatic subluxation of the cervical spine. [facility], , 11/05/2024 5:57 PM
--- NOTE | 2024-11-05 18:08 | CT ---
EXAMINATION TYPE: CT abdomen pelvis wo con DATE OF EXAM: 11/05/2024 5:36 PM COMPARISON: CT abdomen/pelvis 09/11/2021. CLINICAL INDICATION: Male, 79 years old with history of pain; pain TECHNIQUE: Axial CT abdomen pelvis wo con;Sagittal and coronal reformats were created on a separate workstation. Oral contrast used: without Oral Contrast CT DLP: 1403.4 mGycm, Automated exposure control for dose reduction was used. FINDINGS: LOWER CHEST: Coronary artery calcifications. Partially visualized lower lungs without acute pathology . ABDOMEN LIVER: Diffusely hypoattenuating parenchyma. GALLBLADDER AND BILE DUCTS: Either cholecystectomy or severely underdistended gallbladder lumen. PANCREAS: Unremarkable. SPLEEN: Unremarkable. ADRENAL GLANDS: Unremarkable. KIDNEYS AND URETERS: No evidence of hydronephrosis or renal calculus. The ureters are unremarkable. PELVIS BLADDER: No evidence for wall thickening or mass given limitations of exam. REPRODUCTIVE: Unremarkable. ABDOMEN & PELVIS STOMACH AND BOWEL: Stomach and duodenum are unremarkable. Scattered diverticula are noted throughout the colon. No evidence of bowel obstruction. PERITONEUM/RETROPERITONEUM: No evidence of pneumoperitoneum or free fluid. VASCULATURE: No evidence of aortic aneurysm. MUSCULOSKELETAL: No acute osseous abnormalities. Previous right hip arthroplasty. LYMPH NODES: No gross evidence for lymphadenopathy. SOFT TISSUE/ABDOMINAL WALL: Small fat-containing right inguinal hernia. Fat-containing periumbilical hernia. IMPRESSION: No acute abnormality in the abdomen/pelvis or CT findings to explain reported symptoms. [facility], , 11/05/2024 6:06 PM
[2024-11-05] MEDS: MORPHINE SULFATE 4 MG/ML SYRINGE IVP STA (18:14)
[2024-11-05 18:42] LABS: Bilirubin,Urine Negative (Negative); Blood,Urine Trace (Negative); Color,Urine Colorless; Glucose,Urine (UA) 4+ (Negative); Hyaline Casts,Urine 1 /lpf (0-2); Ketones,Urine Negative (Negative); Leukocyte Esterase,Urine Negative (Negative); Nitrite,Urine Negative (Negative); PH, Urine 5.5 (5.0-8.0); Protein,Urine 1+ (Negative); RBC,Urine <1 /hpf (0-5); Specific Gravity,Urine 1.020 (1.001-1.035); Squamous Epithelial Cell,Urine <1 /hpf (0-4); Urobilinogen,Urine <2.0 mg/dL (<2.0); WBC,Urine 2 /hpf (0-5)
[2024-11-05 18:54] LABS: Barbiturate Screen,Urine Not Detected (NotDetected); Benzodiazepines Screen,Urine Not Detected (NotDetected); Opiate Screen,Urine Detected (NotDetected); Oxycodone Screen, Urine Not Detected (NotDetected); Phencyclidine Screen,Urine Not Detected (NotDetected); Tricyclic Antidepressant,Urine Not Detected (NotDetected); Urn Cannabinoid Scrn Not Detected (NotDetected)
[2024-11-05] MEDS: ASPIRIN 325 MG TAB PO STA (19:59)
--- NOTE | 2024-11-05 20:16 | CT ---
EXAMINATION TYPE: CT angio head neck DATE OF EXAM: 11/05/2024 7:06 PM COMPARISON: None.. CLINICAL INDICATION: Male, 79 years old with history of ams; PHH, ams TECHNIQUE: Axially acquired helical CT angiogram of the head and neck was obtained with contrast. Axi al images are supplemented with 3D reconstructions and MIP images which were post-processed at an in dependent workstation. NASCET criteria used. Contrast used:65 ml mL of Isovue 370 with IV Contrast, Oral contrast used: None. CT DLP: 471.6 mGycm, Automated exposure control for dose reduction was used. FINDINGS: CTA HEAD: No evidence of acute intracranial hemorrhage, mass effect, or midline shift. The ventricles, sulci, a nd cisterns are unremarkable. Vertebral arteries: The vertebral arteries are patent. Vertebral artery dominance: Codominant Basilar artery: The basilar artery is intact. The basilar artery bifurcation appears patent. Internal Carotid arteries: The cervical, petrous, cavernous and supraclinoid segments demonstrate omkar cified atherosclerotic disease without high-grade stenosis or occlusion. JONNY: Patent with no evidence of aneurysm. ACOM: Present without evidence of aneurysm. MCA: Patent with no evidence of aneurysm. LONG CHAIN DYEING MACHINE OPERATOR: Patent with no evidence of aneurysm. PCOM: Hypoplastic bilaterally. Dural sinuses: Patent. CTA NECK: Right Carotid System: The common carotid and external carotid arteries are patent. Approximately 50-60% stenosis near the c arotid bifurcation due to dense calcified carotid plaque. The rest of the internal carotid artery is patent. Left Carotid System: The common carotid artery and external carotid artery are patent. There is approximately 80-90% steno sis of the proximal left internal carotid artery due to extensive calcified atherosclerotic plaque. R emaining portions of the cervical internal carotid arteries appear patent more superiorly. The remain ing portions of the internal carotid artery demonstrate normal size without significant narrowing. Vertebral arteries are patent without evidence hemodynamically significant stenosis. There is a three-vessel aortic arch. The origins of the great vessels are patent. No evidence of hemo dynamically significant stenosis. Upper thorax: IMPRESSION: 1. No evidence of dissection of the cervical internal carotid arteries or vertebral arteries. 2. Approximately 80-90% stenosis of the proximal left internal carotid artery due to extensive calci fied atherosclerotic plaque. 3. No evidence of intracranial high-grade stenosis or intracranial aneurysm. [facility], Workstation: [employer] 11/05/2024 8:14 PM
[2024-11-05] MEDS: ATORVASTATIN 80 MG TAB PO SCH (21:30)
[2024-11-06] MEDS ORDERED: DEXTROSE 50% SYRINGE 50 ML IVP PRN ×2 (00:20)
[2024-11-06] MEDS: ACETAMINOPHEN TAB 325 MG TAB PO PRN (00:44)
[2024-11-06 06:17] LABS: Glucose,Whole Blood 160 mg/dL (70-110)
[2024-11-06 06:25] LABS: Basophils # (A) 0.01 10*3/uL (0.00-0.10); Basophils % (A) 0.3 %; Eosinophils # (A) 0.00 10*3/uL (0.04-0.35); Eosinophils % (A) 0.0 %; HCT 40.3 % (39.6-50.0); HGB 13.8 g/dL (13.0-17.0); Lymphocytes # (A) 1.26 10*3/uL (0.90-5.00); Lymphocytes % (A) 32.5 %; MCH 31.9 pg (27.0-32.0); MCHC 34.2 g/dL (32.0-37.0); MCV 93.1 fL (80.0-97.0); Monocytes # (A) 0.58 10*3/uL (0.20-1.00); Monocytes % (A) 14.9 %; Neutrophils # (A) 2.02 10*3/uL (1.80-7.70); Neutrophils % (A) 52.0 %; Platelet Count 117 10*3/uL (140-440); RBC 4.33 10*6/uL (4.40-5.60); RDW 12.7 % (11.5-14.5); WBC 3.88 10*3/uL (4.50-10.00)
[2024-11-06] MEDS: INSULIN LISPRO (HumaLOG) 100 UNIT/ML 10 mL VL SQ SCH (06:48)
[2024-11-06] MEDS: INSULIN GLARGINE (LANTUS) 100 UNIT/ML SYR SQ SCH (06:56)
[2024-11-06 07:02] LABS: ALT 46 U/L (4-49); AST 35 U/L (17-59); African American GFR (CKD) 62 (>60 ml/min/1.73 sqM); Albumin 4.2 g/dL (3.5-5.0); Alkaline Phosphatase 44 U/L (38-126); Anion Gap 10 mmol/L; Blood Urea Nitrogen 25 mg/dL (9-20); Calcium 9.1 mg/dL (8.4-10.2); Carbon Dioxide 24 mmol/L (22-30); Chloride 104 mmol/L (98-107); Glucose 166 mg/dL (74-99); Non-African American GFR(CKD) 54 (>60 ml/min/1.73 sqM); Potassium 4.1 mmol/L (3.5-5.1); Sodium 138 mmol/L (137-145); Total Protein 6.4 g/dL (6.3-8.2)
--- NOTE | 2024-11-06 09:08 | P.HPIM ---
History of Present Illness H&P Date: 11/06/24 Chief Complaint: Mental status changes/possible CVA. HISTORY OF PRESENT ILLNESS: This is an 79-year-old male patient of mine with previous medical history significant for coronary artery disease status post percutaneous coronary intervention and stent placement last one was in 12/13/2019 in the mid RCA at that time he was found to have a totally occluded obtuse marginal one of the LCx, with collaterals from the PDA, hypertension and hypertensive cardiovascular disease, hyperlipidemia, diabetes mellitus type 2, diabetic polyneuropathy, 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 as well as radio frequency ablation, prostate cancer status post radiation therapy, MSSA septic arthritis left knee, patient was recently hospitalized at [facility] August 2024 after he was admitted for right lower extremity methicillin sensitive Staphylococcus aureus cellulitis and he was discharged in stable condition, apparently the patient was seen and followed up in the office and he was doing fine, he was brought into the emergency department yesterday because of mental status changes and the patient was not able to make sense in what his was saying, according to the EMS report and the police department report the patient was making some suicidal statements and threats which the patient denied completely, patient was not sure why he was in the emergency department at this point in time, he was not able to know exactly what is going on, because of that he was sent for a CT scan of brain that was negative for acute infarct versus bleed, this was followed by CT angiography of the neck and the brain showed evidence of 89% stenosis of the left internal carotid artery due to extensive plaque., patient had a CT scan of the abdomen pelvis was negative, but because of the presentation and because of the underlying history of paroxysmal atrial fibrillation he was admitted to the hospital for evaluation by neurology, vascul ar surgery consultation was obtained as well, patient does appear to be not able to find words, he appears to have had a stroke, even though the CAT scan is negative, we will obtain MRI of the brain with and without gadolinium as soon as possible, neurology consultation, neurocheck [id number], REVIEW OF SYSTEMS: Constitutional: No documented fever, or chills, no night sweats, reports fatigue , negative for weight loss. HEENT: occasional headache. No blurred vision or double vision, no loss of vision. No loss of Hearing, no ringing in the ears, no dizziness. No nasal drainage or congestion. No epistaxis. No sore throat. Respiratory: No shortness of breath, reported cough, no sputum production. No wheezing. Reports dyspnea with activity. Cardiovascular: No chest pain, no lower extremity edema. No palpitations. No paroxysmal nocturnal dyspnea. No orthopnea. No lightheadedness or dizziness. No syncopal episodes. Gastrointestinal: Reports no abdominal pain. No nausea, vomiting. No diarrhea. No constipation. No bloody or tarry stools reports loss of appetite. Genitourinary: No dysuria, increased frequency, urgency. No urinary retention. Musculoskeletal: Negative for myalgias. No muscle weakness, negative for gait dysfunction, no frequent falls, positive for low back pain . Integumentary: No wounds, significant neuropathy to both lower extremities with callus to the third toe and hammertoes. Neurologic: Expressive aphasia. No facial droop. Positive for change in mentation. No head injury. occasional headache. No paralysis. positive for neuropathy for both lower extremities. Psychiatric: No depression. No anxiety. No mood swings. Endocrine: Positive for abnormal blood sugars. Positive for weight change. PAST MEDICAL HISTORY: 1. CAD post-PCI of the RCA. 2. Hypertension and hypertensive cardiovascular disease. 3. Hyperlipidemia. 4. Diabetes mellitus type 2 5. Diabetic polyneuropathy. 6. PAD. 7. Prostate cancer. 8. Erectile dysfunction. 9. Spondylosis of the lumbar spine. 10. Osteoarthritis. 11. Spondylosis of the cervical spine. 12. Constipation. 13. Septic arthritis left knee and MSSA bacteremia status post revision. 14. C. difficile colitis. PAST SURGICAL HISTORY: Left knee arthroscopic surgery x2. Left total knee arthroplasty. Right total hip replacement with revision due to infection Prostate biopsy. Bilateral cataract surgery. Left heart catheterization in August 2017 with a stent placement of the RCA. Left heart catheterization 07/28/2020 with attempted PCI of the RCA. Left heart catheterization 07/30/2020 with 2 stents placement of the RCA Adenoidectomy with tonsillectomy. Colonoscopy. Epidural injection of the lumbar spine with radiofrequency ablation. SOCIAL HISTORY: Patient is a smoker a pack every day smoked for many years and quit many years ago, he denies any alcohol ingestion, patient used to work for the [employer]. Patient resides at assisted living. FAMILY HISTORY: Father at age of 49 from myocardial infarction, mother at age of 81 from uterine cancer with metastatic disease, patient has one brother with chronic tobacco use and dependence, patient has no sisters, patient has one son no major medical problems, he had 2 daughters one of them from dishing muscular dystrophy the other one is alive and lives in [place]. PHYSICAL EXAMINATION: General: This is an 79-year-old male who appears in no distress appears to be confused HEENT: Head is atraumatic, normocephalic, pupils were equal round reactive to light and recommendation, extraocular muscle movement were intact, sclera nonicteric, conjunctivae were pale, mucous membranes of the mouth are dry. Neck: Supple, no JVP, normal carotid upstroke bilaterally, no lymphadenopathy. Chest: Decreased breath sounds at the bases, few rhonchi, no expiratory wheezes, no chest wall tenderness, no intercostal retractions. Heart: First heart sound is normal, second heart sound is normal there is systolic ejection murmur 2/6 left sternal border. Abdomen: Soft, nontender, nondistended, positive bowel sounds, no hepatosplenomegaly Extremities: there is mild edema no calf tenderness dorsalis pedis +1 bilaterally. Neurologic examination: Patient is awake alert and oriented x 1, cranial nerves II to XII appear to be gross intact, muscle power 4 out of 5 in upper extremities, and 4 out of 5 in bilateral lower extremities, he is not following much commands. ASSESSMENT AND PLAN: 1. Possible acute ischemic Cerebro-vascular accident likely due to severe stenosis of the left internal carotid artery 80-90% stenosis. Did have a CT scan brain did not show evidence of any acute abnormalities, CT angiography of the neck showed evidence of 80 to 90% stenosis of the left internal carotid artery due to extensive plaque, continue patient on aspirin 325 mg orally once every day, atorvastatin 80 mg once every day, echocardiogram was obtained, follow-up with neurology, continue neurocheck [id number] for the next 24 hours, consult vascular surgery Dr. Dailey for further evaluation and treatment MRI of the brain with and without edgardo to be done as soon as possible 2. Slight elevated bilirubin with liver function test, CT scan of the abdomen pelvis did not show any evidence of acute abnormalities continue to monitor the patient's CMP. 3. Paroxysmal atrial fibrillation. Continue patient on metoprolol 100 mg orally twice every day as well as Eliquis 5 mg orally twice every day for life. 4. Coronary artery disease status post Left heart catheterization with PCI of the RCA on 07/30/2020. Continue patient on aspirin 325 mg once every day, continue metoprolol 100 mg orally twice every day, atorvastatin 80 mg once every day. 5. Hypertension and hypertensive cardiovascular disease. Continue metoprolol 100 mg orally twice every day, losartan 100 mg once every day,monitor the patient blood pressure very closely. 6. Hyperlipidemia. Continue patient on atorvastatin 80 mg orally once every day, Zetia 10 mg once every day, monitor the patient lipid panel, keep LDL 55- 70. 7. Diabetes mellitus type 2. We will continue patient on Farxiga 10 mg orally once every, continue insulin glargine 22 units subcutaneously before breakfast, continue with a sliding scale insulin. 8. History of prostate cance status post radiation. Stable at this time. 9. 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 Stable at this time continue current pain management. 10. Urinary retention. Patient did have 2 straight cath with no relief, will place Shelley catheter. 11. DVT prophylaxis. Continue patient on Eliquis 5 mg orally twice every day. 12. GI prophylaxis. Protonix 40 mg orally once every day. 13. admit to inpatient. Estimated length of stay 2 midnights. 14. Patient is full code. Past Medical History Past Medical History: Atrial Fibrillation, Coronary Artery Disease (CAD), Cancer, Chest Pain / Angina, CVA/TIA, Diabetes Mellitus, GERD/Reflux, Hyperlipidemia, Hypertension, Osteoarthritis (OA), Prostate Disorder Additional Past Medical History / Comment(s): 5 Herniated discs in neck causing headaches & numbness in arm and right lower back and pain and right leg pain. Prostate Cancer- last radiation tx Mar 25 had total of 44 tx. occ constipation, sepsis Hx Last Myocardial Infarction Date:: UNKOWN History of Any Multi-Drug Resistant Organisms: VRE Date of last positivie culture/infection: 09/18/20 MDRO Source:: Wound Past Surgical History: Adenoidectomy, Heart Catheterization, Heart Catheterization With Stent, Joint Replacement, Orthopedic Surgery, Tonsillectomy Additional Past Surgical History / Comment(s): PROSTATE BX., LT. KNEE ARTHROSCOPY X 2, CERVICAL FUSIONS, COLONOSCOPY, ÁNGEL. CATARTACTS.Pain Procedures , rt radio frequency procedures. , total 3 heart stents, hemorrhoidectomy,heart cath August 2017-lt knee replacement. Stent replacement \2020, hip Past Anesthesia/Blood Transfusion Reactions: No Reported Reaction Additional Past Anesthesia/Blood Transfusion Reaction / Comment(s): doesn't like enclosed tight spaces Date of Last Stent Placement:: 04/24/17 Past Psychological History: No Psychological Hx Reported Additional Psychological History / Comment(s): . Smoking Status: Former smoker Past Alcohol Use History: None Reported Additional Past Alcohol Use History / Comment(s): Pt started smoking in 1981 smoked for 2 yrs, smoked 1/2 ppd. 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 Past Drug Use History: None Reported - Past Family History Father Additional Family Medical History / Comment(s): Father at age 49 from coronary artery disease. Brother(s) Additional Family Medical History / Comment(s): Patient has one brother with history of smoking and no other major medical problems. Patient does not have any sisters. Daughter(s) Additional Family Medical History / Comment(s): Patient has one daughter with history of muscular dystrophy and of pneumonia. Son(s) Family Medical History: No Reported History Additional Family Medical History / Comment(s): Patient has one son with no major medical problems. Mother Family Medical History: Cancer Additional Family Medical History / Comment(s): Mother at age 81 from uterine cancer with metastatic disease. Medications and Allergies Home Medications Medication Instructions Recorded Confirmed Type Atorvastatin [Lipitor] 80 mg PO HS 09/01/20 11/05/24 History Aspirin EC [Ecotrin Low Dose] 81 mg PO BID 09/11/21 11/05/24 History Apixaban [Eliquis] 5 mg PO BID tab 09/22/21 11/05/24 Rx Nitroglycerin Sl Tabs [Nitrostat] 0.4 mg SUBLINGUAL Q5M PRN tab 09/22/21 11/05/24 Rx Dapagliflozin Propanediol [Farxiga] 10 mg PO DAILY 06/10/23 11/05/24 History Losartan Potassium 100 mg PO DAILY 06/10/23 11/05/24 History Metoprolol Tartrate [Lopressor] 100 mg PO BID 06/10/23 11/05/24 History HYDROcodone/APAP 5-325MG [[place] 1 tab PO Q12H PRN 05/03/24 11/05/24 History 5-325] Linezolid [Zyvox] 600 mg PO Q12H #20 tab 09/06/24 11/05/24 Rx amLODIPine [Norvasc] 5 mg PO DAILY #90 tab 09/06/24 11/05/24 Rx Insulin Glargine/Lixisenatide 20 units SQ AC-BRKFST 11/05/24 11/05/24 History [[place] 100 Unit-33 Mcg/ml Pen] Allergies Allergy/AdvReac Type Severity Reaction Status Date / Time No Known Allergies Allergy Verified 11/05/24 16:22 Physical Exam Vitals: Vital Signs Temp Pulse Pulse Resp BP BP Pulse Ox 11/06/24 04:17 98.1 F 73 17 138/64 96 11/06/24 00:06 100.2 F H 89 18 126/61 95 11/05/24 21:29 99.1 F 88 18 141/73 95 11/05/24 21:24 99.0 F 91 17 184/90 95 11/05/24 20:00 87 18 176/95 98 11/05/24 19:00 85 18 171/89 96 11/05/24 18:07 77 18 199/97 99 11/05/24 17:00 80 16 190/85 95 11/05/24 16:17 98.7 F 81 22 179/105 98 Intake and Output 11/05/24 11/05/24 11/06/24 14:59 22:59 06:59 Output Total 175 425 Balance -175 -425 Output: Urine 175 375 Uretheral (Shelley) 375 Post Void Residual 50 Other: Voiding Method Urinal # Voids 1 Weight 102.058 kg 128 kg Results CBC & Chem 7: 11/08/24 07:34 11/08/24 07:34 Labs: Abnormal Lab Results - Last 24 Hours (Table) 11/05/24 11/05/24 11/05/24 Range/Units 16:30 16:30 18:32 MCH 32.6 H (27.0-32.0) pg Plt Count 127 L (140-440) 10*3/uL Eosinophils # 0.00 L (0.04-0.35) 10*3/uL Carbon Dioxide 19 L (22-30) mmol/L BUN 29 H (9-20) mg/dL Glucose 223 H (74-99) mg/dL Total Bilirubin 2.5 H (0.2-1.3) mg/dL ALT 54 H (4-49) U/L Urine Protein 1+ H (Negative) Urine Glucose (UA) 4+ H (Negative) Urine Blood Trace H (Negative) Urine Opiates Screen Detected H (NotDetected) Thrombosis Risk Factor Assmnt - Choose All That Apply Any of the Below Risk Factors Present?: No Other Risk Factors: Yes Each Risk Factor Represents 3 Points: Age 75 years or older Thrombosis Risk Factor Assessment Total Risk Factor Score: 3 Thrombosis Risk Factor Assessment Level: Moderate Risk
[2024-11-06] MEDS: LOSARTAN 50 MG TAB PO SCH (10:19)
[2024-11-06] MEDS: APIXABAN 5 MG TAB PO SCH (10:19)
[2024-11-06] MEDS: amLODIPine 5 MG TAB PO SCH (10:19)
[2024-11-06] MEDS: DAPAGLIFLOZIN PROPANEDIOL 10 MG TABLET PO SCH (10:19)
[2024-11-06] MEDS: METOPROLOL TARTRATE 50 MG TAB PO SCH (10:19)
[2024-11-06] MEDS: ASPIRIN 325 MG TAB PO SCH (10:19)
[2024-11-06 10:57] LABS: Cholesterol 124.00 mg/dL (0.00-200.00); HDL Cholesterol 33.10 mg/dL (40.00-60.00); LDL Cholesterol,Calculated 20.7 mg/dL (0.0-131.0); Triglycerides 351.00 mg/dL (0.00-149.00); VLDL Calculation 70.20 mg/dL (5.00-40.00)
--- NOTE | 2024-11-06 11:02 | P.GSCN ---
History of Present Illness Consult date: 11/06/24 Reason for Consult: Left ICA stenosis, TIA Requesting physician: German Astudillo History of present illness: HPI obtained from chart and nursing. This is a 79-year-old male with a past medical history including atrial fibrillation on Eliquis, coronary artery disease with previous cardiac stent, diabetes mellitus, angina, CVA/TIA, hypertension, hyper lipidemia, chronic pain with history of 5 herniated disks in his neck and cervical fusion as well as prostate cancer with treatment in 2017. Apparently patient was brought in for altered mental status changes. According to his nurse the neighbor had called EMS in place as the patient was outside yelling that he was going to commit suicide. Patient is currently alert and oriented x 0. He is unable to state his first or last name, he is unable to state his birthdate, and he does not know where he is at or what the year is. Patient's speech is fluent, he does follow directions, but answers most questions as " I'm fine". Review of Systems ROS unobtainable: due to mental status Past Medical History Past Medical History: Atrial Fibrillation, Coronary Artery Disease (CAD), Cancer, Chest Pain / Angina, CVA/TIA, Diabetes Mellitus, GERD/Reflux, Hyperlipidemia, Hypertension, Osteoarthritis (OA), Prostate Disorder Additional Past Medical History / Comment(s): 5 Herniated discs in neck causing headaches & numbness in arm and right lower back and pain and right leg pain. Prostate Cancer- last radiation tx Mar 25-2016 had total of 44 tx. 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 KNEE ARTHROSCOPY X 2, CERVICAL FUSIONS, COLONOSCOPY, ÁNGEL. CATARTACTS.Pain Procedures , rt radio frequency procedures. , total 3 heart stents, hemorrhoidectomy,heart cath August 2017-lt knee replacement. Stent replacement \\\\2020, hip Past Anesthesia/Blood Transfusion Reactions: No Reported Reaction Additional Past Anesthesia/Blood Transfusion Reaction / Comm: doesn't like enclosed tight spaces Date of Last Stent Placement:: 04/24/17 Past Psychological History: No Psychological Hx Reported Additional Psychological History / Comment(s): . Smoking Status: Former smoker Past Alcohol Use History: None Reported Additional Past Alcohol Use History / Comment(s): Pt started smoking in 1981 sm oked for 2 yrs, smoked 1/2 ppd. 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 Past Drug Use History: None Reported - Past Family History Father Additional Family Medical History / Comment(s): Father at age 49 from coronary artery disease. Brother(s) Additional Family Medical History / Comment(s): Patient has one brother with history of smoking and no other major medical problems. Patient does not have any sisters. Daughter(s) Additional Family Medical History / Comment(s): Patient has one daughter with history of muscular dystrophy and of pneumonia. Son(s) Family Medical History: No Reported History Additional Family Medical History / Comment(s): Patient has one son with no major medical problems. Mother Family Medical History: Cancer Additional Family Medical History / Comment(s): Mother at age 81 from uterine cancer with metastatic disease. Medications and Allergies Home Medications Medication Instructions Recorded Confirmed Type Atorvastatin [Lipitor] 80 mg PO HS 09/01/20 11/05/24 History Aspirin EC [Ecotrin Low Dose] 81 mg PO BID 09/11/21 11/05/24 History Apixaban [Eliquis] 5 mg PO BID tab 09/22/21 11/05/24 Rx Nitroglycerin Sl Tabs [Nitrostat] 0.4 mg SUBLINGUAL Q5M PRN tab 09/22/21 11/05/24 Rx Dapagliflozin Propanediol [Farxiga] 10 mg PO DAILY 06/10/23 11/05/24 History Losartan Potassium 100 mg PO DAILY 06/10/23 11/05/24 History Metoprolol Tartrate [Lopressor] 100 mg PO BID 06/10/23 11/05/24 History HYDROcodone/APAP 5-325MG [[place] 1 tab PO Q12H PRN 05/03/24 11/05/24 History 5-325] Linezolid [Zyvox] 600 mg PO Q12H #20 tab 09/06/24 11/05/24 Rx amLODIPine [Norvasc] 5 mg PO DAILY #90 tab 09/06/24 11/05/24 Rx Insulin Glargine/Lixisenatide 20 units SQ AC-BRKFST 11/05/24 11/05/24 History [[place] 100 Unit-33 Mcg/ml Pen] Allergies Allergy/AdvReac Type Severity Reaction Status Date / Time No Known Allergies Allergy Verified 11/05/24 16:22 Surgical - Exam Vital Signs Temp Pulse Resp BP Pulse Ox 98.7 F 81 22 179/105 98 11/05/24 16:17 11/05/24 16:17 11/05/24 16:17 11/05/24 16:17 11/05/24 16:17 General appearance: The patient is alert but not oriented, appears in no acute distress. HET: Head is normocephalic and atraumatic. Pupils are equal and reactive. Neck: Supple. No audible bruit bilaterally. Heart: Regular. Lungs: Equal expansion, normal respiratory effort. Abdomen: Soft, nontender, nondistended. Extremities: Normal skin color and turgor. Palpable radial pulses bilaterally, palpable DP pulse. Neurological: Patient is alert, oriented x 0. Speech is fluent, able to follow simple commands however not answering questions appropriately. With good stren gth and tone bilateral upper and lower extremities and equal. Results - Labs 11/06/24 05:48 11/06/24 05:48 Abnormal Lab Results - Last 24 Hours (Table) 11/05/24 11/05/24 11/05/24 Range/Units 16:30 16:30 18:32 WBC (4.50-10.00) 10*3/uL RBC (4.40-5.60) 10*6/uL MCH 32.6 H (27.0-32.0) pg Plt Count 127 L (140-440) 10*3/uL Eosinophils # 0.00 L (0.04-0.35) 10*3/uL Carbon Dioxide 19 L (22-30) mmol/L BUN 29 H (9-20) mg/dL Creatinine (0.66-1.25) mg/dL Glucose 223 H (74-99) mg/dL POC Glucose (mg/dL) (70-110) mg/dL Total Bilirubin 2.5 H (0.2-1.3) mg/dL ALT 54 H (4-49) U/L Urine Protein 1+ H (Negative) Urine Glucose (UA) 4+ H (Negative) Urine Blood Trace H (Negative) Urine Opiates Screen Detected H (NotDetected) 11/06/24 11/06/24 11/06/24 Range/Units 05:48 05:48 06:16 WBC 3.88 L (4.50-10.00) 10*3/uL RBC 4.33 L (4.40-5.60) 10*6/uL MCH (27.0-32.0) pg Plt Count 117 L (140-440) 10*3/uL Eosinophils # 0.00 L (0.04-0.35) 10*3/uL Carbon Dioxide (22-30) mmol/L BUN 25 H (9-20) mg/dL Creatinine 1.26 H (0.66-1.25) mg/dL Glucose 166 H (74-99) mg/dL POC Glucose (mg/dL) 160 H (70-110) mg/dL Total Bilirubin 2.5 H (0.2-1.3) mg/dL ALT (4-49) U/L Urine Protein (Negative) Urine Glucose (UA) (Negative) Urine Blood (Negative) Urine Opiates Screen (NotDetected) Diabetes panel 11/05/24 11/06/24 Range/Units 16:30 05:48 Sodium 139 138 (137-145) mmol/L Potassium 4.7 4.1 (3.5-5.1) mmol/L Chloride 103 104 (98-107) mmol/L Carbon Dioxide 19 L 24 (22-30) mmol/L BUN 29 H 25 H (9-20) mg/dL Creatinine 1.15 1.26 H (0.66-1.25) mg/dL Glucose 223 H 166 H (74-99) mg/dL Calcium 9.6 9.1 (8.4-10.2) mg/dL AST 47 35 (17-59) U/L ALT 54 H 46 (4-49) U/L Alkaline Phosphatase 48 44 (38-126) U/L Total Protein 7.5 6.4 (6.3-8.2) g/dL Albumin 4.8 4.2 (3.5-5.0) g/dL Thyroid panel 11/05/24 Range/Units 16:30 TSH 0.666 (0.465-4.680) mIU/L Calcium panel 11/05/24 11/06/24 Range/Units 16:30 05:48 Calcium 9.6 9.1 (8.4-10.2) mg/dL Phosphorus 4.5 (2.5-4.5) mg/dL Albumin 4.8 4.2 (3.5-5.0) g/dL Pituitary panel 11/05/24 11/06/24 Range/Units 16:30 05:48 Sodium 139 138 (137-145) mmol/L Potassium 4.7 4.1 (3.5-5.1) mmol/L Chloride 103 104 (98-107) mmol/L Carbon Dioxide 19 L 24 (22-30) mmol/L BUN 29 H 25 H (9-20) mg/dL Creatinine 1.15 1.26 H (0.66-1.25) mg/dL Glucose 223 H 166 H (74-99) mg/dL Calcium 9.6 9.1 (8.4-10.2) mg/dL TSH 0.666 (0.465-4.680) mIU/L Adrenal panel 11/05/24 11/06/24 Range/Units 16:30 05:48 Sodium 139 138 (137-145) mmol/L Potassium 4.7 4.1 (3.5-5.1) mmol/L Chloride 103 104 (98-107) mmol/L Carbon Dioxide 19 L 24 (22-30) mmol/L BUN 29 H 25 H (9-20) mg/dL Creatinine 1.15 1.26 H (0.66-1.25) mg/dL Glucose 223 H 166 H (74-99) mg/dL Calcium 9.6 9.1 (8.4-10.2) mg/dL Total Bilirubin 2.5 H 2.5 H (0.2-1.3) mg/dL AST 47 35 (17-59) U/L ALT 54 H 46 (4-49) U/L Alkaline Phosphatase 48 44 (38-126) U/L Total Protein 7.5 6.4 (6.3-8.2) g/dL Albumin 4.8 4.2 (3.5-5.0) g/dL - Imaging Comments: CT angiogram head and neck reports no evidence of dissection of the cervical internal carotid arteries or vertebral arteries. Approximately 80 to 90% stenosis of the proximal left internal carotid artery due to extensive calcified arthrosclerotic plaque. No evidence of intracranial high-grade stenosis or intracranial aneurysm. CT head and cervical spine reports no acute intracranial process. No acute fracture or traumatic subluxation of the cervical spine. Assessment and Plan Assessment: 1. Altered mental status changes 2. Left proximal internal carotid artery stenosis, 80 to 90% 3. History of atrial fibrillation on Eliquis 4. Coronary artery disease with previous cardiac stent 5. Diabetes mellitus 6. History of CVA/TIA 7. Hypertension 8. Hyperlipidemia 9. History of cervical herniated disks status post cervical fusion 10. History of prostate cancer Plan: 1. Await MRI results 2. Await recommendations from neurology 3. Continue Eliquis and aspirin, possibly transition from aspirin to Plavix if cleared by neurology 4. Echocardiogram pending 5. Rest of medical management per primary medical team 6. Further recommendations forthcoming based on clinical course Thank you for this consultation, we will continue to follow. The impression and plan of care has been dictated as directed. Dr. Dailey I performed a history and examination of this patient, discussed the same with the dictator. I agree with the dictator's note ,documented as a scribe. Any additional findings or plans will be noted.
[2024-11-06 12:05] LABS: Glucose,Whole Blood 209 mg/dL (70-110)
--- NOTE | 2024-11-06 12:22 | CA ---
Transthoracic Echo Report Name: Burt Berkowitz Age: 79 Gender: M : 1945 Exam Date: 11/06/2024 09:08 Exam Location: [facility] Ht (in): 72 Wt (lb): 225 Ordering Physician: Jose Roberto Lundberg DO Attending/Referring Phys: [id number], [employer] Charbel Kaplan RDCS Procedure CPT: Indications: Thrombus Cardiac Hx: Technical Quality: Poor Contrast 1: Total Dose (mL): Contrast 2: Total Dose (mL): MEASUREMENTS (Male / Female) Normal Values 2D ECHO LV Diastolic Diameter PLAX 4.5 cm 4.2 - 5.9 / 3.9 - 5.3 cm LV Systolic Diameter PLAX 3.2 cm IVS Diastolic Thickness 1.6 cm 0.6 - 1.0 / 0.6 - 0.9 cm LVPW Diastolic Thickness 1.5 cm 0.6 - 1.0 / 0.6 - 0.9 cm LV Relative Wall Thickness 0.7 RV Internal Dim ED PLAX 3.7 cm LVOT Diameter 1.9 cm LA Systolic Diameter LX 3.9 cm 3.0 - 4.0 / 2.7 - 3.8 cm LV Diastolic Volume MOD BP 69.8 cm??? 67 - 155 / 56 - 104 cm??? LV Systolic Volume MOD BP 26.1 cm??? 22 - 58 / 19 - 49 cm??? LV Ejection Fraction MOD BP 62.6 % >= 55 % LV Cardiac Index MOD BP 1462.1 cm???/min???m??? LV Diastolic Volume MOD 4C 70.8 cm??? LV Systolic Volume MOD 4C 20.9 cm??? LV Ejection Fraction MOD 4C 70.5 % LV Cardiac Index MOD 4C 1668.4 cm???/min???m??? LV Diastolic Length 4C 7.6 cm LV Systolic Length 4C 5.5 cm LV Diastolic Volume MOD 2C 66.9 cm??? LV Systolic Volume MOD 2C 30.1 cm??? LV Ejection Fraction MOD 2C 55.0 % LV Cardiac Index MOD 2C 1230.2 cm???/min???m??? LV Diastolic Length 2C 7.3 cm LV Systolic Length 2C 6.2 cm M-MODE Aortic Root Diameter MM 3.5 cm LA Systolic Diameter MM 4.3 cm LA Ao Ratio MM 1.2 AV Cusp Separation MM 1.6 cm DOPPLER AV Peak Velocity 146.0 cm/s AV Peak Gradient 8.5 mmHg AV Mean Velocity 100.5 cm/s AV Mean Gradient 4.5 mmHg AV Velocity Time Integral 25.3 cm LVOT Peak Velocity 82.3 cm/s LVOT Peak Gradient 2.7 mmHg LVOT Velocity Time Integral 13.9 cm LVOT Stroke Volume 37.8 cm??? LVOT Stroke Volume Index 16.9 ml/m??? LVOT Cardiac Index 1264.4 cm???/min???m??? AV Area Cont Eq vti 1.5 cm??? AV Area Cont Eq pk 1.5 cm??? MV Peak Velocity 101.6 cm/s MV Peak Gradient 4.1 mmHg MV Mean Velocity 56.8 cm/s MV Mean Gradient 1.5 mmHg MV Velocity Time Integral 21.2 cm MV Area PHT 2.6 cm??? Mitral E Point Velocity 61.8 cm/s Mitral A Point Velocity 96.6 cm/s Mitral E to A Ratio 0.6 MV Deceleration Time 286.5 ms FINDINGS Left Ventricle Left ventricular ejection fraction is estimated at 60-65 %. Moderately increased septal wall thickness. Left ventricular cavity size normal. No obvious regional wall motion abnormalities. Right Ventricle Normal right ventricular global systolic function. Right Atrium Normal right atrial size. No right atrial thrombus or mass seen. Left Atrium Normal left atrial size. No left atrial thrombus or mass present. Mitral Valve No mitral stenosis. No mitral regurgitation. Aortic Valve Trileaflet aortic valve. No aortic stenosis. No aortic regurgitation. Tricuspid Valve No tricuspid stenosis. Trace tricuspid regurgitation. Pulmonic Valve Pulmonic valve not well visualized. Pericardium Normal pericardium. No pericardial or pleural effusion. Aorta Normal size aortic root and proximal ascending aorta. CONCLUSIONS Technically difficult study with poor accosting windows LVEF 60% No obvious regional wall motion abnormality Normal RV size and systolic function No significant valvular dysfunction appreciated Previewed by: Dr Darrel Phillips (Electronically Signed) Final Date: 06 November 2024 12:21
[2024-11-06 16:46] LABS: Glucose,Whole Blood 169 mg/dL (70-110)
--- NOTE | 2024-11-06 17:35 | P.CNNES ---
History of Present Illness Consult date: 11/06/24 Requesting physician: Jose Roberto Lundberg Reason for Consult: CVA History of Present Illness: Patient is a 79-year-old male with history of hypertension, diabetes, hyperlipidemia, came to the hospital by ambulance yesterday at 4:13 PM for altered mental status. Patient at present appears completely globally aphasic, not able to provide any history. Patient just says "I cannot do it", "I ... ", "I cannot". Patient said "I do not know", when I asked what happened. I asked if he has headache, says "I do not know". Patient cannot name or repeat. Patient is not following directions. I called patient's daughter Paola twice, but she did not molded goods spot picker the phone. I then called patient's brother, who mentions that patient does not have any history of dementia. He talks normally. He lives by himself. He used to use a cane after he had knee surgery but now he mostly does not use any device. He do es have some back and hip issues also. He lives by himself but neighbors check on him. As per EMS flowsheet when they arrived, patient was called for suicidal threats. Patient reported to have called out to neighbors he was going to commit suicide. Neighbors called 911. On arrival patient was awake alert confused. Patient was not answering questions, keeps repeating "helping". No signs of t rauma or distress. Patient was noted to be hypertensive. Patient's blood glucose was 202 mg/dL. Blood pressure was 208/115, pulse rate 92 respiration 18 saturation 98%. Chest x-ray showed no acute cardiopulmonary process. CT head showed no acute intracranial process. CT of the cervical spine showed no acute fracture or traumatic subluxation of the cervical spine. I personally reviewed CT head, agree with the findings. CT of abdomen pelvis showed no acute abnormality. EKG showed sinus rhythm with occasional supraventricular premature complexes. Patient's vitals on arrival was blood pressure 179/105 pulse rate 81 temperature 98.7. Home medications include aspirin 81 mg, Lipitor 80 mg, Eliquis 5 mg twice daily, metoprolol, Farxiga, losartan, Holt, Zyvox, amlodipine and insulin. Review of Systems ROS unobtainable: due to mental status Past Medical History Past Medical History: Atrial Fibrillation, Coronary Artery Disease (CAD), Cancer, Chest Pain / Angina, CVA/TIA, Diabetes Mellitus, GERD/Reflux, Hyperlipidemia, Hypertension, Osteoarthritis (OA), Prostate Disorder Additional Past Medical History / Comment(s): 5 Herniated discs in neck causing headaches & numbness in arm and right lower back and pain and right leg pain. Prostate Cancer- last radiation tx Mar 25 had total of 44 tx. occ constipation, sepsis Hx Last Myocardial Infarction Date:: UNKOWN History of Any Multi-Drug Resistant Organisms: VRE Date of last positivie culture/infection: 09/18/20 MDRO Source:: Wound Past Surgical History: Adenoidectomy, Heart Catheterization, Heart Catheterization With Stent, Joint Replacement, Orthopedic Surgery, Tonsillectomy Additional Past Surgical History / Comment(s): PROSTATE BX., LT. KNEE ARTHROSCOPY X 2, CERVICAL FUSIONS, COLONOSCOPY, ÁNGEL. CATARTACTS.Pain Procedures , rt radio frequency procedures. , total 3 heart stents, hemorrhoidectomy,heart cath August 2017-lt knee replacement. Stent replacement , hip Past Anesthesia/Blood Transfusion Reactions: No Reported Reaction Additional Past Anesthesia/Blood Transfusion Reaction / Comment(s): doesn't like enclosed tight spaces Date of Last Stent Placement:: 04/24/17 Past Psychological History: No Psychological Hx Reported Additional Psychological History / Comment(s): . Smoking Status: Former smoker Past Alcohol Use History: None Reported Additional Past Alcohol Use History / Comment(s): Pt started smoking in 1981 smoked for 2 yrs, smoked 1/2 ppd. 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 Past Drug Use History: None Reported - Past Family History Father Additional Family Medical History / Comment(s): Father at age 49 from coronary artery disease. Brother(s) Additional Family Medical History / Comment(s): Patient has one brother with history of smoking and no other major medical problems. Patient does not have any sisters. Daughter(s) Additional Family Medical History / Comment(s): Patient has one daughter with history of muscular dystrophy and of pneumonia. Son(s) Family Medical History: No Reported History Additional Family Medical History / Comment(s): Patient has one son with no major medical problems. Mother Family Medical History: Cancer Additional Family Medical History / Comment(s): Mother at age 81 from uterine cancer with metastatic disease. Medications and Allergies Home Medications Medication Instructions Recorded Confirmed Type Atorvastatin [Lipitor] 80 mg PO HS 09/01/20 11/05/24 History Aspirin EC [Ecotrin Low Dose] 81 mg PO BID 09/11/21 11/05/24 History Apixaban [Eliquis] 5 mg PO BID tab 09/22/21 11/05/24 Rx Nitroglycerin Sl Tabs [Nitrostat] 0.4 mg SUBLINGUAL Q5M PRN tab 09/22/21 11/05/24 Rx Dapagliflozin Propanediol [Farxiga] 10 mg PO DAILY 06/10/23 11/05/24 History Losartan Potassium 100 mg PO DAILY 06/10/23 11/05/24 History Metoprolol Tartrate [Lopressor] 100 mg PO BID 06/10/23 11/05/24 History HYDROcodone/APAP 5-325MG [Holt 1 tab PO Q12H PRN 05/03/24 11/05/24 History 5-325] Linezolid [Zyvox] 600 mg PO Q12H #20 tab 09/06/24 11/05/24 Rx amLODIPine [Norvasc] 5 mg PO DAILY #90 tab 09/06/24 11/05/24 Rx Insulin Glargine/Lixisenatide 20 units SQ AC-[id number] 11/05/24 11/05/24 History [Soliqua 100 Unit-33 Mcg/ml Pen] Allergies Allergy/AdvReac Type Severity Reaction Status Date / Time No Known Allergies Allergy Verified 11/05/24 16:22 Physical Examination - Vital Signs Vital Signs: Vital Signs Temp Pulse Pulse Resp BP BP Pulse Ox 11/06/24 16:21 97.9 F 65 17 165/83 97 11/06/24 14:19 65 17 11/06/24 11:00 98.0 F 74 17 157/85 97 11/06/24 09:02 92 17 11/06/24 09:01 97.4 F L 92 17 159/76 97 11/06/24 04:17 98.1 F 73 17 138/64 96 11/06/24 00:06 100.2 F H 89 18 126/61 95 11/05/24 21:29 99.1 F 88 18 141/73 95 07/20/25 21:24 99.0 F 91 17 184/90 95 11/05/24 20:00 87 18 176/95 98 11/05/24 19:00 85 18 171/89 96 11/05/24 18:07 77 18 199/97 99 Intake and Output 11/06/24 11/06/24 11/06/24 06:59 14:59 22:59 Intake Total 120 Output Total 425 700 450 Balance -425 -580 -450 Intake: Oral 120 Output: Urine 375 700 450 Uretheral (Shelley) 375 700 Post Void Residual 50 Other: Voiding Method Urinal Indwelling Catheter # Voids 0 Weight 128 kg Patient is an elderly male, who is laying in the bed, appears comfortable, having dinner. Patient is alert awake. Patient at present appears completely globally aphasic, not able to provide any history. Patient just says "I cannot do it", "I ... ", "I cannot". Patient said "I do not know", when I asked what happened. I asked if he has headache, says "I do not know". Patient cannot name or repeat. Patient is not following directions. Patient could not point to the window, or to the ceiling. Cannot tell me his name. No obvious seizure-like activity noted. On cranial nerve examination, pupils are equal, round and reacting to light, visual adames could not be tested, as patient would not cooperate. Extraocular muscles are intact with no nystagmus, although he would not voluntarily move his eyes to the side, but was looking either side normally. Face is symmetric, however he did not protrude his tongue to check. Lower cranial nerves cannot be tested. On muscle strength testing, patient did not cooperate for pronator drift testing. His safety consultant is about 4 bilaterally with decreased effort. Patient would not cooperate for checking for biceps, triceps and deltoid on the lower limbs. He does move his extremities normally like eating or drinking but would not cooperate. When I insisted, patient became very frustrated. Deep tendon reflexes are symmetric but very hypoactive and plantars are flexor. Sensory to touch cannot be assessed. Cerebellar function patient did not cooperate in the upper or lower limbs. Tone and bulk of muscles normal. Gait deferred.. On general examination, there is no carotid bruit or murmur, S1-S2 audible. Ch est is clear on consultation. Abdomen is soft nontender. No organomegaly, bowel sounds present. Peripheral pulses are present. No peripheral edema. Results - Laboratory Findings CBC and BMP: 11/06/24 05:48 11/06/24 05:48 Abnormal Lab Findings: Abnormal Labs 11/05/24 11/05/24 11/05/24 16:30 16:30 18:32 WBC RBC MCH 32.6 H Plt Count 127 L Eosinophils # 0.00 L Carbon Dioxide 19 L BUN 29 H Creatinine Glucose 223 H POC Glucose (mg/dL) Total Bilirubin 2.5 H ALT 54 H Triglycerides VLDL Cholesterol, Calc HDL Cholesterol Urine Protein 1+ H Urine Glucose (UA) 4+ H Urine Blood Trace H Urine Opiates Screen Detected H 11/06/24 11/06/24 11/06/24 05:48 05:48 06:16 WBC 3.88 L RBC 4.33 L MCH Plt Count 117 L Eosinophils # 0.00 L Carbon Dioxide BUN 25 H Creatinine 1.26 H Glucose 166 H POC Glucose (mg/dL) 160 H Total Bilirubin 2.5 H ALT Triglycerides 351.00 H VLDL Cholesterol, Calc 70.20 H HDL Cholesterol 33.10 L Urine Protein Urine Glucose (UA) Urine Blood Urine Opiates Screen 11/06/24 11/06/24 11:59 16:44 WBC RBC MCH Plt Count Eosinophils # Carbon Dioxide BUN Creatinine Glucose POC Glucose (mg/dL) 209 H 169 H Total Bilirubin ALT Triglycerides VLDL Cholesterol, Calc HDL Cholesterol Urine Protein Urine Glucose (UA) Urine Blood Urine Opiates Screen Assessment and Plan Assessment: * Altered mental status, with aphasia, impaired comprehension. Patient did not cooperate with examination but limited examination appeared nonfocal otherwise. Exact cause uncertain. Rule out acute stroke, rule out acute encephalopathy versus focal seizures. No evidence of intracranial infection. * Left ICA stenosis, severe degree * Hypertension * Diabetes * Hyperlipidemia * Atrial fibrillation, on Eliquis * Coronary artery disease * Osteoarthritis * Ex tobacco use * History of cervical fusion Plan: Patient has presented with acute neurological change with inability to speak, aphasia. Rest of the examination is relatively nonfocal although he did not cooperate at all. Rule out acute stroke. MRI of the brain without contrast, evaluate for acute CVA 2-D echo revealed LVEF 60 to 65%. Moderately increased septal wall thickness. No obvious regional wall motion abnormalities. Normal left atrial size. No significant valvular dysfunction. CTA head and neck showed: No evidence of dissection of the cervical internal carotid arteries or vertebral arteries. Approximately 80 to 90% stenosis of the proximal left ICA due to extensive calcified atherosclerotic plaque. No evidence of intracranial high-grade stenosis or intracranial aneurysm. Vascular surgery has seen the patient, awaiting MRI brain. We will check EEG to rule out epileptiform activity. Fasting a.m. Lipid panel with cholesterol 124, LDL 20, HDL 33 and triglycerides 351. Patient on Lipitor 80 mg daily at home. Hemoglobin A1c 11.5 on 09/03/2024. Recommend optimize control of diabetes to target A1c <7.0 Permissive hypertension for next 24-48 hours Continue Eliquis, aspirin and statins. Neuro checks as per protocol. Telemetry monitoring rule out any arrhythmia PT, OT, speech therapy DVT prophylaxis: Patient on Eliquis I discussed with patient's brother who provided some limited history. I tried to contact his daughter twice but was not available. Discussed with patient's nurse. Neurology will continue to follow. Thank you for the consult. Time with Patient: Greater than 30
[2024-11-06 20:04] LABS: Glucose,Whole Blood 196 mg/dL (70-110)
[2024-11-07 05:58] LABS: Glucose,Whole Blood 159 mg/dL (70-110)
[2024-11-07 11:25] LABS: Basophils # (A) 0.02 10*3/uL (0.00-0.10); Basophils % (A) 0.4 %; Eosinophils # (A) 0.00 10*3/uL (0.04-0.35); Eosinophils % (A) 0.0 %; HCT 40.3 % (39.6-50.0); HGB 14.1 g/dL (13.0-17.0); Immature Platelet Fraction 2.1 % (1.1-6.1); Lymphocytes # (A) 1.15 10*3/uL (0.90-5.00); Lymphocytes % (A) 25.1 %; MCH 32.8 pg (27.0-32.0); MCHC 35.0 g/dL (32.0-37.0); MCV 93.7 fL (80.0-97.0); Monocytes # (A) 0.54 10*3/uL (0.20-1.00); Monocytes % (A) 11.8 %; Neutrophils # (A) 2.87 10*3/uL (1.80-7.70); Neutrophils % (A) 62.5 %; Platelet Count 119 10*3/uL (140-440); RBC 4.30 10*6/uL (4.40-5.60); RDW 12.9 % (11.5-14.5); WBC 4.59 10*3/uL (4.50-10.00)
[2024-11-07 11:43] LABS: ALT 72 U/L (4-49); AST 82 U/L (17-59); African American GFR (CKD) 62 (>60 ml/min/1.73 sqM); Albumin 4.1 g/dL (3.5-5.0); Alkaline Phosphatase 39 U/L (38-126); Anion Gap 11 mmol/L; Blood Urea Nitrogen 24 mg/dL (9-20); Calcium 8.7 mg/dL (8.4-10.2); Carbon Dioxide 23 mmol/L (22-30); Chloride 103 mmol/L (98-107); Glucose 229 mg/dL (74-99); Non-African American GFR(CKD) 54 (>60 ml/min/1.73 sqM); Potassium 3.8 mmol/L (3.5-5.1); Sodium 137 mmol/L (137-145); Total Protein 6.3 g/dL (6.3-8.2)
--- NOTE | 2024-11-07 11:58 | P.PN ---
Subjective Progress Note Date: 11/07/24 Principal diagnosis: Left ICA stenosis Patient was seen and examined this morning with no acute changes. He has been seen and evaluated by neurology and awaiting brain MRI and EEG. Patient is alert however still very confused unable to state his name, follow directions or answer questions appropriately. Objective - Vital Signs Vital signs: Vital Signs Temp 98.0 F 11/07/24 07:55 Pulse 74 11/07/24 07:55 Resp 18 11/07/24 07:55 BP 167/93 11/07/24 07:55 Pulse Ox 95 11/07/24 07:55 FiO2 Intake & Output 11/06/24 11/07/24 11/07/24 18:59 06:59 18:59 Intake Total 520 540 Output Total 1150 450 Balance -630 -450 540 Weight 130 kg Intake: Oral 520 540 Output: Urine 1150 450 Uretheral (Shelley) 700 Other: Voiding Method Indwelling Catheter Indwelling Catheter Indwelling Catheter # Voids 0 # Bowel Movements 1 - Exam General appearance: The patient is alert but not oriented, appears in no acute distress. HET: Head is normocephalic and atraumatic. Pupils are equal and reactive. Neck: Supple. No audible bruit bilaterally. Heart: Regularly irregular. Lungs: Equal expansion, normal respiratory effort. Abdomen: Soft, nontender, nondistended. Extremities: Normal skin color and turgor. Palpable radial pulses bilaterally, palpable DP pulse. Neurological: Patient is alert, oriented x 0. Speech is fluent, able to follow simple commands however not answering questions appropriately. With good strength and tone bilateral upper and lower extremities and equal. - Labs CBC & Chem 7: 11/07/24 10:05 11/07/24 10:05 Labs: Abnormal Lab Results - Last 24 Hours (Table) 11/06/24 11/06/24 11/06/24 Range/Units 11:59 16:44 20:03 POC Glucose (mg/dL) 209 H 169 H 196 H (70-110) mg/dL Hemoglobin A1c (<=6.0) % 11/07/24 11/07/24 Range/Units 05:57 06:13 POC Glucose (mg/dL) 159 H (70-110) mg/dL Hemoglobin A1c 9.1 H (<=6.0) % Assessment and Plan Assessment: 1. Altered mental status changes 2. Left proximal internal carotid artery stenosis, 80 to 90% 3. History of atrial fibrillation on Eliquis 4. Coronary artery disease with previous cardiac stent 5. Diabetes mellitus 6. History of CVA/TIA 7. Hypertension 8. Hyperlipidemia 9. History of cervical herniated disks status post cervical fusion 10. History of prostate cancer Plan: 1. Await MRI results 2. Await recommendations from neurology 3. Continue Eliquis and aspirin 4. EEG pending 5. Rest of medical management per primary medical team Patient's daughter Paola at the bedside and carotid angiogram findings discussed with patient and his daughter Paola. Still awaiting MRI results. Discussed with left internal carotid artery stenosis being at 80 to 90% recommendation would be to consider surgical intervention, timing to be further guided based on MRI results. Paola verbalized understanding will await findings from MRI and will make further decisions based on her recommendations. Thank you for this consultation, we will continue to follow. The impression and plan of care has been dictated as directed. Dr. Dailey I performed a history and examination of this patient, discussed the same with the dictator. I agree with the dictator's note ,documented as a scribe. Any additional findings or plans will be noted.
[2024-11-07 12:48] VITALS: BMI 38.8
[2024-11-07 13:12] LABS: Glucose,Whole Blood 158 mg/dL (70-110)
--- NOTE | 2024-11-07 13:19 | P.PN ---
Subjective Progress Note Date: 11/07/24 HISTORY OF PRESENT ILLNESS: This is an 79-year-old male patient of [facility] with previous medical history significant for coronary artery disease status post percutaneous coronary inte rvention and stent placement last one was in 12/13/2019 in the mid RCA at that time he was found to have a totally occluded obtuse marginal one of the LCx, with collaterals from the PDA, hypertension and hypertensive cardiovascular disease, hyperlipidemia, diabetes mellitus type 2, diabetic polyneuropathy, 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 as well as radio frequency ablation, prostate cancer status post radiation therapy, MSSA septic arthritis left knee, patient was recently hospitalized at [facility] August 2024 after he was admitted for right lower extremity methicillin sensitive Staphylococcus aureus cellulitis and he was discharged in stable condition, a pparently the patient was seen and followed up in the office and he was doing fine, he was brought into the emergency department yesterday because of mental status changes and the patient was not able to make sense in what his was saying, according to the EMS report and the police department report the patient was making some suicidal statements and threats which the patient denied completely, patient was not sure why he was in the emergency department at this point in time, he was not able to know exactly what is going on, because of that he was sent for a CT scan of brain that was negative for acute infarct versus bleed, this was followed by CT angiography of the neck and the brain showed evidence of 89% stenosis of the left internal carotid artery due to extensive plaque., patient had a CT scan of the abdomen pelvis was negative, but because of the presentation and because of the underlying history of paroxysmal atrial fibrillation he was admitted to the hospital for evaluation by neurology, vascular surgery consultation was obtained as well, patient does appear to be not able to find words, he appears to have had a stroke, even though the CAT scan is negative, we will obtain MRI of the brain with and without gadolinium as soon as possible, neurology consultation, neurocheck [id number], 11/07: Patient continues to have expressive aphasia on and off, he is retaining quite a bit of urine currently has a Shelley catheter in place, will continue with that, MRI of the brain with and without contrast will be done today, the report is not up yet, continue to follow-up with the patient very closely, continue patient on aspirin 325 mg once every day, continue Eliquis 5 mg orally twice every day, patient does appear to have an 89% stenosis of the left internal carotid artery patient will need to have a left carotid endarterectomy DEVAUGHN awaiting the final result of the MRI first and neurology recommendation prior to the surgical intervention. REVIEW OF SYSTEMS: Constitutional: No documented fever, or chills, no night sweats, reports fatigue , negative for weight loss. HEENT: No headache. No blurred vision or double vision, no loss of vision. No loss of Hearing, no ringing in the ears, no dizziness. No nasal drainage or congestion. No epistaxis. No sore throat. Respiratory: No shortness of breath, reported cough, no sputum production. No wheezing. Reports dyspnea with activity. Cardiovascular: No chest pain, no lower extremity edema. No palpitations. No paroxysmal nocturnal dyspnea. No orthopnea. No lightheadedness or dizziness. No syncopal episodes. Gastrointestinal: Reports no abdominal pain. No nausea, vomiting. No diarrhea. No constipation. No bloody or tarry stools reports loss of appetite. Genitourinary: No dysuria, increased frequency, urgency. No urinary retention. Musculoskeletal: Negative for myalgias. No muscle weakness, negative for gait dysfunction, no frequent falls, positive for low back pain . Integumentary: No wounds, significant neuropathy to both lower extremities with callus to the third toe and hammertoes. Neurologic: No aphasia. No facial droop. Positive for change in mentation. No head injury. No headache. No paralysis. positive for neuropathy for both lower extremities. Positive for not finding the words. Psychiatric: No depression. No anxiety. No mood swings. Endocrine: Positive for abnormal blood sugars. Positive for weight change. PHYSICAL EXAMINATION: General: This is an 79-year-old male who appears in no distress appears to be confused HEENT: Head is atraumatic, normocephalic, pupils were equal round reactive to light and recommendation, extraocular muscle movement were intact, sclera nonicteric, conjunctivae were pale, mucous membranes of the mouth are dry. Neck: Supple, no JVP, normal carotid upstroke bilaterally, no lymphadenopathy. Chest: Decreased breath sounds at the bases, few rhonchi, no expiratory wheez es, no chest wall tenderness, no intercostal retractions. Heart: First heart sound is normal, second heart sound is normal there is systolic ejection murmur 2/6 left sternal border. Abdomen: Soft, nontender, nondistended, positive bowel sounds, no hepatosplenomegaly Extremities: there is mild edema no calf tenderness dorsalis pedis +1 bilaterally. Neurologic examination: Patient is awake alert and oriented x 1, cranial nerves II to XII appear to be gross intact, muscle power 4 out of 5 in upper extremities, and 4 out of 5 in bilateral lower extremities, he is not following much commands. ASSESSMENT AND PLAN: 1. Possible acute ischemic Cerebro-vascular accident likely due to severe stenosis of the left internal carotid artery 80-90% stenosis. Did have a CT scan brain did not show evidence of any acute abnormalities, CT angiography of the neck showed evidence of 80 to 90% stenosis of the left internal carotid artery due to extensive plaque, continue patient on aspirin 325 mg orally once every day, atorvastatin 80 mg once every day, echocardiogram was obtained, follow-up with neurology, continue neurocheck [id number] for the next 24 hours, neurology and vascular surgery consultation appreciated, MRI of the brain will be done later on today, results still pending at the time of dictation. Patient will likely require left carotid endarterectomy. 2. Slight elevated bilirubin with liver function test, CT scan of the abdomen pelvis did not show any evidence of acute abnormalities continue to monitor the patient's CMP. 3. Paroxysmal atrial fibrillation. Continue patient on metoprolol 100 mg orally twice every day as well as Eliquis 5 mg orally twice every day for life. 4. Coronary artery disease status post Left heart catheterization with PCI of the RCA on 07/30/2020. Continue patient on aspirin 325 mg once every day, continue metoprolol 100 mg orally twice every day, atorvastatin 80 mg once every day. 5. Hypertension and hypertensive cardiovascular disease. Continue metoprolol 100 mg orally twice every day, losartan 100 mg once every day,monitor the patient blood pressure very closely. 6. Hyperlipidemia. Continue patient on atorvastatin 80 mg orally once every day, Zetia 10 mg once every day, monitor the patient lipid panel, keep LDL 55- 70. 7. Diabetes mellitus type 2. We will continue patient on Farxiga 10 mg orally once every, continue insulin glargine 22 units subcutaneously before breakfast, continue with a sliding scale insulin. 8. History of prostate cance status post radiation. Stable at this time. 9. 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 Stable at this time continue current pain management. 10. Urinary retention. Patient did have 2 straight cath with no relief, will place Shelley catheter. 11. DVT prophylaxis. Continue patient on Eliquis 5 mg orally twice every day. 12. GI prophylaxis. Protonix 40 mg orally once every day. 13. Overall prognosis is guarded. Objective - Vital Signs Vital signs: Vital Signs Temp 98.0 F 11/07/24 07:55 Pulse 74 11/07/24 07:55 Resp 18 11/07/24 07:55 BP 167/93 11/07/24 07:55 Pulse Ox 95 11/07/24 07:55 FiO2 Intake & Output 11/06/24 11/07/24 11/07/24 18:59 06:59 18:59 Intake Total 520 540 Output Total 1150 450 Balance -630 -450 540 Weight 130 kg Intake: Oral 520 540 Output: Urine 1150 450 Uretheral (Shelley) 700 Other: Voiding Method Indwelling Catheter Indwelling Catheter # Voids 0 # Bowel Movements 1 - Labs CBC & Chem 7: 11/08/24 07:34 11/08/24 07:34 Labs: Abnormal Lab Results - Last 24 Hours (Table) 11/06/24 11/06/24 11/06/24 Range/Units 05:48 11:59 16:44 POC Glucose (mg/dL) 209 H 169 H (70-110) mg/dL Triglycerides 351.00 H (0.00-149.00) mg/dL VLDL Cholesterol, Calc 70.20 H (5.00-40.00) mg/dL HDL Cholesterol 33.10 L (40.00-60.00) mg/dL 11/06/24 11/07/24 Range/Units 20:03 05:57 POC Glucose (mg/dL) 196 H 159 H (70-110) mg/dL Triglycerides (0.00-149.00) mg/dL VLDL Cholesterol, Calc (5.00-40.00) mg/dL HDL Cholesterol (40.00-60.00) mg/dL
--- NOTE | 2024-11-07 13:38 | MR ---
EXAMINATION TYPE: MR brain wo/w con DATE OF EXAM: 11/07/2024 1:05 PM COMPARISON: MRI 09/18/2021 , [facility] [place] [facility] [place] 11/05/2024 CLINICAL INDICATION: Male, 79 years old with history of CVA, Altered memory status TECHNIQUE: Multiplanar, multiecho imaging on a 3.0 Madelyn magnet is performed through the brain. Stud y is performed within 24 hours of arrival to the hospital.Multiplanar, multiecho imaging on a 3.0 Violetta la magnet is performed through the knee. IV Contrast: 13 mL Gadobutrol (None, if empty) FINDINGS: The craniovertebral junction is normal. The pituitary is normal. Diffusion-weighted imaging is performed. There is increased signal within the left watershed region. This area is faintly increased on the T2-weighted and inversion recovery weighted sequences. Follow ing contrast, there is an irregular heterogenous enhancing lesion in the left watershed region measur ing 2.7 x 2.2 x 1.6 cm. Primary or metastatic disease can be considered. There is increased signal within the white matter extending into the right frontal lobe anterior to t he anterior horn of the lateral ventricle. This area enhances. This appears to be a vascular structur e. This area appears similar to comparison. Findings appear more likely be related to a vascular stru cture than neoplasm. Findings are new normal change from the comparison 10/06/2021 There is a hyperintensity within the left basal ganglia and T2-weighted sequences. Number, robins spa ce likely present. There is some additional hyperintensity in the. Ventricular white matter, likely o n the basis of chronic white matter ischemic changes. This extends into the right frontal lobe. Ventricles and sulci are appropriate for the patient age. IMPRESSION: 1. Enhancing mass posterior medial left watershed region. Finding is suspicious for neoplasm. 2. An additional area of abnormal enhancement extends in a more linear appearance anterior to the ant erior horn right lateral ventricle extending into the right frontal lobe white matter. A vascular str ucture appears to correlate with the prior CTA and MRI brain. A [place] critical message alert has been initiated for German Astudillo MD via the [employer] on 11/07/2024 1:36 PM. This message alert has been sent to German Astudillo MD via t preferences provided by the clinician for the receipt of Radiology Critical Findings. Message ID [id number]. [facility], Workstation: [facility], 11/07/2024 1:36 PM
[2024-11-07] MEDS: levETIRAcetam IV 500 MG/5 ML VIAL IVP SCH (16:44)
[2024-11-07 16:46] LABS: Glucose,Whole Blood 207 mg/dL (70-110)
--- NOTE | 2024-11-07 17:26 | P.PN ---
Subjective Progress Note Date: 11/07/24 Patient was seen for follow-up. Patient continues to be aphasic. No improvement. Objective - Vital Signs Vital signs: Vital Signs Temp 98.0 F 11/07/24 07:55 Pulse 74 11/07/24 07:55 Resp 18 11/07/24 07:55 BP 167/93 11/07/24 07:55 Pulse Ox 95 11/07/24 07:55 FiO2 Intake & Output 11/06/24 11/07/24 11/07/24 18:59 06:59 18:59 Intake Total 520 658 Output Total 1150 450 225 Balance -630 -450 433 Weight 130 kg 130 kg Intake: Oral 520 658 Output: Urine 1150 450 225 Uretheral (Shelley) 700 Other: Voiding Method Indwelling Catheter Indwelling Catheter Indwelling Catheter # Voids 0 # Bowel Movements 1 - Exam Continues to be globally aphasic. Perseverates on few phrases. Patient not cooperating with examination. No seizure-like activity noticed. - Labs CBC & Chem 7: 11/07/24 10:05 11/07/24 10:05 Labs: Abnormal Lab Results - Last 24 Hours (Table) 11/06/24 11/07/24 11/07/24 Range/Units 20:03 05:57 06:13 RBC (4.40-5.60) 10*6/uL MCH (27.0-32.0) pg Plt Count (140-440) 10*3/uL Eosinophils # (0.04-0.35) 10*3/uL BUN (9-20) mg/dL Creatinine (0.66-1.25) mg/dL Glucose (74-99) mg/dL POC Glucose (mg/dL) 196 H 159 H (70-110) mg/dL Hemoglobin A1c 9.1 H (<=6.0) % Total Bilirubin (0.2-1.3) mg/dL AST (17-59) U/L ALT (4-49) U/L 11/07/24 11/07/24 11/07/24 Range/Units 10:05 10:05 13:09 RBC 4.30 L (4.40-5.60) 10*6/uL MCH 32.8 H (27.0-32.0) pg Plt Count 119 L (140-440) 10*3/uL Eosinophils # 0.00 L (0.04-0.35) 10*3/uL BUN 24 H (9-20) mg/dL Creatinine 1.26 H (0.66-1.25) mg/dL Glucose 229 H (74-99) mg/dL POC Glucose (mg/dL) 158 H (70-110) mg/dL Hemoglobin A1c (<=6.0) % Total Bilirubin 2.5 H (0.2-1.3) mg/dL AST 82 H (17-59) U/L ALT 72 H (4-49) U/L 11/07/24 Range/Units 16:44 RBC (4.40-5.60) 10*6/uL MCH (27.0-32.0) pg Plt Count (140-440) 10*3/uL Eosinophils # (0.04-0.35) 10*3/uL BUN (9-20) mg/dL Creatinine (0.66-1.25) mg/dL Glucose (74-99) mg/dL POC Glucose (mg/dL) 207 H (70-110) mg/dL Hemoglobin A1c (<=6.0) % Total Bilirubin (0.2-1.3) mg/dL AST (17-59) U/L ALT (4-49) U/L Assessment and Plan Assessment: * Altered mental status, with aphasia, impaired comprehension. * Left ICA stenosis, severe degree * Hypertension * Diabetes * Hyperlipidemia * Atrial fibrillation, on Eliquis * Coronary artery disease * Osteoarthritis * Ex tobacco use * History of cervical fusion Plan: Patient has presented with acute neurological change with inability to speak, aphasia. Rest of the examination is relatively nonfocal although he did not cooperate at all. MRI of the brain with and without contrast revealed enhancing mass posterior medial left watershed region. Findings is suspicious for neoplasm. An additional area of abnormal enhancement extends in a more linear appearance anterior to the anterior horn right lateral ventricle extending into the right frontal lobe white matter. Vascular structure appears to correlate with the prior CT and MRI brain. EEG was performed, which was severely abnormal because of presence of continuous high amplitude sharp waves over the left hemispheric region, maximal left parietal region, suggestive of focal cortical neuronal dysfunction with underlying cortical irritability and tendency for seizure. No electrographic seizure was recorded. Patient started on Keppra 1500 mg IV bolus dose. Patient has not responded clinically. Patient needs to be transferred to higher level of care for neurosurgical consultation for brain mass and also for continuous EEG monitoring. We will add Vimpat 200 mg IV twice daily, first dose stat. 2-D echo revealed LVEF 60 to 65%. Moderately increased septal wall thickness. No obvious regional wall motion abnormalities. Normal left atrial size. No significant valvular dysfunction. CTA head and neck showed: No evidence of dissection of the cervical internal carotid arteries or vertebral arteries. Approximately 80 to 90% stenosis of the proximal left ICA due to extensive calcified atherosclerotic plaque. No evidence of intracranial high-grade stenosis or intracranial aneurysm. Vascular surgery has seen the patient. Fasting a.m. Lipid panel with cholesterol 124, LDL 20, HDL 33 and triglycerides 351. Patient on Lipitor 80 mg daily at home. Hemoglobin A1c 11.5 on 09/03/2024. Recommend optimize control of diabetes to target A1c <7.0 Optimize control of blood pressure. Continue Eliquis, aspirin and statins. Neuro checks as per protocol. Telemetry monitoring rule out any arrhythmia PT, OT, speech therapy DVT prophylaxis: Patient on Eliquis Discussed with patient's nurse. Recommend transfer to higher level of care with above recommendations.
[2024-11-07] MEDS: Lacosamide IV (ages 17+ yrs) 200 MG/20 ML ML IVP SCH (18:53)
[2024-11-07 20:15] LABS: Glucose,Whole Blood 192 mg/dL (70-110)
--- NOTE | 2024-11-08 00:46 | CT ---
EXAMINATION TYPE: CT brain wo con DATE OF EXAM: 11/07/2024 6:11 PM COMPARISON: None. CLINICAL INDICATION: Male, 79 years old with history of Mass, rule out bleed,, Mass, r/o bleed TECHNIQUE: CT of the brain is performed utilizing 3 mm thick sections through the posterior fossa and 3 mm thick sections through the remaining calvarium. Study is performed within 24 hours of arrival to the hospital. Contrast used: mL of , (none if empty) CT DLP: 1167.4 mGycm, Automated exposure control for dose reduction was used. FINDINGS: No abnormal hyperdensity is present to suggest an acute intracranial hemorrhage. No mass lesion is evident. There is a stable punctate calcification in the anterior right centrum ngozi iovale. No acute infarcts are evident. Mild periventricular white matter hypodensity is present likely on the basis of chronic white matter ischemic changes. Ventricles and sulci are mildly prominent for the patient age. Paranasal sinuses and mastoid air cells within the [id number] are clear. IMPRESSION: 1. No acute intracranial process. Follow up MRI can be performed as clinically indicated. 2. Periventricular white matter hypodensity likely on the basis of chronic white matter ischemic luis ge with mild atrophy. Findings are stable from comparison. [facility], Workstation: [facility], 11/08/2024 12:44 AM
[2024-11-08] MEDS: ALPRAZolam 0.25 MG TAB PO STA (05:00)
[2024-11-08 06:12] LABS: Glucose,Whole Blood 168 mg/dL (70-110)
[2024-11-08 08:38] LABS: ALT 82 U/L (4-49); AST 77 U/L (17-59); African American GFR (CKD) 72 (>60 ml/min/1.73 sqM); Albumin 4.0 g/dL (3.5-5.0); Alkaline Phosphatase 38 U/L (38-126); Anion Gap 12 mmol/L; Blood Urea Nitrogen 26 mg/dL (9-20); Calcium 9.0 mg/dL (8.4-10.2); Carbon Dioxide 22 mmol/L (22-30); Chloride 107 mmol/L (98-107); Glucose 134 mg/dL (74-99); Non-African American GFR(CKD) 62 (>60 ml/min/1.73 sqM); Potassium 3.8 mmol/L (3.5-5.1); Sodium 141 mmol/L (137-145); Total Protein 6.2 g/dL (6.3-8.2)
[2024-11-08 08:42] LABS: Basophils # (A) 0.03 10*3/uL (0.00-0.10); Basophils % (A) 0.7 %; Eosinophils # (A) 0.00 10*3/uL (0.04-0.35); Eosinophils % (A) 0.0 %; HCT 41.0 % (39.6-50.0); HGB 14.6 g/dL (13.0-17.0); Lymphocytes # (A) 1.33 10*3/uL (0.90-5.00); Lymphocytes % (A) 29.1 %; MCH 32.7 pg (27.0-32.0); MCHC 35.6 g/dL (32.0-37.0); MCV 91.7 fL (80.0-97.0); Monocytes # (A) 0.66 10*3/uL (0.20-1.00); Monocytes % (A) 14.4 %; Neutrophils # (A) 2.52 10*3/uL (1.80-7.70); Neutrophils % (A) 55.1 %; RBC 4.47 10*6/uL (4.40-5.60); RDW 12.7 % (11.5-14.5); WBC 4.57 10*3/uL (4.50-10.00)
[2024-11-08 08:48] LABS: Platelet Count 103 10*3/uL (140-440)
--- NOTE | 2024-11-08 10:25 | P.PN ---
Subjective Progress Note Date: 11/08/24 Principal diagnosis: Left ICA stenosis Patient was seen and examined this morning with no acute changes. He has been seen and evaluated by neurology MRI of the brain was ordered with findings reported as enhancing mass posterior medial left watershed region. Finding is suspected for neoplasm. Additional area of abnormal enhancement extends into a more linear appearance anterior to the anterior horn right lateral ventricle extending into the right frontal lobe white matter. A vascular structure appears to correlate with the prior CTA and MRI brain. EEG is completed and nursing reports it was normal however report is not available at this time. Patient is alert however still very confused unable to state his name, follow directions or answer questions appropriately. Neurology recommended patient to be transferred to higher level of care. Patient has been accepted to [facility] however awaiting a bed at this time. Objective - Vital Signs Vital signs: Vital Signs Temp 97.4 F L 11/07/24 23:32 Pulse 62 11/08/24 04:00 Resp 16 11/08/24 04:00 BP 142/61 11/08/24 04:00 Pulse Ox 96 11/08/24 04:00 FiO2 Intake & Output 11/07/24 11/08/24 11/08/24 18:59 06:59 18:59 Intake Total 776 Output Total 225 350 Balance 551 -350 Weight 130 kg 123.5 kg Intake: Oral 776 Output: Urine 225 350 Other: Voiding Method Indwelling Catheter Indwelling Catheter # Bowel Movements 1 - Exam General appearance: The patient is alert but not oriented, appears in no acute distress. HET: Head is normocephalic and atraumatic. Pupils are equal and reactive. Neck: Supple. No audible bruit bilaterally. Heart: Regularly irregular. Lungs: Equal expansion, normal respiratory effort. Abdomen: Soft, nontender, nondistended. Extremities: Normal skin color and turgor. Palpable radial pulses bilaterally, palpable DP pulse. Neurological: Patient is alert, oriented x 0. Speech is fluent, able to follow simple commands however not answering questions appropriately. With good strength and tone bilateral upper and lower extremities and equal. - Labs CBC & Chem 7: 11/08/24 07:34 11/08/24 07:34 Labs: Abnormal Lab Results - Last 24 Hours (Table) 11/07/24 11/07/24 11/07/24 Range/Units 06:13 10:05 10:05 RBC 4.30 L (4.40-5.60) 10*6/uL MCH 32.8 H (27.0-32.0) pg Plt Count 119 L (140-440) 10*3/uL Eosinophils # 0.00 L (0.04-0.35) 10*3/uL BUN 24 H (9-20) mg/dL Creatinine 1.26 H (0.66-1.25) mg/dL Glucose 229 H (74-99) mg/dL POC Glucose (mg/dL) (70-110) mg/dL Hemoglobin A1c 9.1 H (<=6.0) % Total Bilirubin 2.5 H (0.2-1.3) mg/dL AST 82 H (17-59) U/L ALT 72 H (4-49) U/L Total Protein (6.3-8.2) g/dL 11/07/24 11/07/24 11/07/24 Range/Units 13:09 16:44 20:13 RBC (4.40-5.60) 10*6/uL MCH (27.0-32.0) pg Plt Count (140-440) 10*3/uL Eosinophils # (0.04-0.35) 10*3/uL BUN (9-20) mg/dL Creatinine (0.66-1.25) mg/dL Glucose (74-99) mg/dL POC Glucose (mg/dL) 158 H 207 H 192 H (70-110) mg/dL Hemoglobin A1c (<=6.0) % Total Bilirubin (0.2-1.3) mg/dL AST (17-59) U/L ALT (4-49) U/L Total Protein (6.3-8.2) g/dL 11/08/24 11/08/24 11/08/24 Range/Units 06:11 07:34 07:34 RBC (4.40-5.60) 10*6/uL MCH 32.7 H (27.0-32.0) pg Plt Count 103 L (140-440) 10*3/uL Eosinophils # 0.00 L (0.04-0.35) 10*3/uL BUN 26 H (9-20) mg/dL Creatinine (0.66-1.25) mg/dL Glucose 134 H (74-99) mg/dL POC Glucose (mg/dL) 168 H (70-110) mg/dL Hemoglobin A1c (<=6.0) % Total Bilirubin 2.5 H (0.2-1.3) mg/dL AST 77 H (17-59) U/L ALT 82 H (4-49) U/L Total Protein 6.2 L (6.3-8.2) g/dL Assessment and Plan Assessment: 1. Altered mental status changes 2. Left proximal internal carotid artery stenosis, 80 to 90% 3. Enhancing mass posterior medial left watershed region per brain MRI 4. History of atrial fibrillation on Eliquis 5. Coronary artery disease with previous cardiac stent 6. Diabetes mellitus 7. History of CVA/TIA 8. Hypertension 9. Hyperlipidemia 10. History of cervical herniated disks status post cervical fusion 11. History of prostate cancer Plan: Recommendation from neurology is transfer to tertiary center for higher level of care regarding brain mass noted on MRI. Patient is currently not a vascular surgical candidate for carotid stenosis at this time. Pending clinical course patient may follow-up as an outpatient with vascular surgery. Thank you for this consultation, we will sign off at this time. The impression and plan of care has been dictated as directed. Dr. Dailey I performed a history and examination of this patient, discussed the same with the dictator. I agree with the dictator's note ,documented as a scribe. Any additional findings or plans will be noted.
--- NOTE | 2024-11-08 10:58 | P.PN ---
Subjective Progress Note Date: 11/08/24 HISTORY OF PRESENT ILLNESS: This is an 79-year-old male patient of [facility] with previous medical history significant for coronary artery disease status post percutaneous coronary inte rvention and stent placement last one was in 12/13/2019 in the mid RCA at that time he was found to have a totally occluded obtuse marginal one of the LCx, with collaterals from the PDA, hypertension and hypertensive cardiovascular disease, hyperlipidemia, diabetes mellitus type 2, diabetic polyneuropathy, 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 as well as radio frequency ablation, prostate cancer status post radiation therapy, MSSA septic arthritis left knee, patient was recently hospitalized at [facility] August 2024 after he was admitted for right lower extremity methicillin sensitive Staphylococcus aureus cellulitis and he was discharged in stable condition, a pparently the patient was seen and followed up in the office and he was doing fine, he was brought into the emergency department yesterday because of mental status changes and the patient was not able to make sense in what his was saying, according to the EMS report and the police department report the patient was making some suicidal statements and threats which the patient denied completely, patient was not sure why he was in the emergency department at this point in time, he was not able to know exactly what is going on, because of that he was sent for a CT scan of brain that was negative for acute infarct versus bleed, this was followed by CT angiography of the neck and the brain showed evidence of 89% stenosis of the left internal carotid artery due to extensive plaque., patient had a CT scan of the abdomen pelvis was negative, but because of the presentation and because of the underlying history of paroxysmal atrial fibrillation he was admitted to the hospital for evaluation by neurology, vascular surgery consultation was obtained as well, patient does appear to be not able to find words, he appears to have had a stroke, even though the CAT scan is negative, we will obtain MRI of the brain with and without gadolinium as soon as possible, neurology consultation, neurocheck [id number], 11/07: Patient continues to have expressive aphasia on and off, he is retaining quite a bit of urine currently has a Shelley catheter in place, will continue with that, MRI of the brain with and without contrast will be done today, the report is not up yet, continue to follow-up with the patient very closely, continue patient on aspirin 325 mg once every day, continue Eliquis 5 mg orally twice every day, patient does appear to have an 89% stenosis of the left internal carotid artery patient will need to have a left carotid endarterectomy DEVAUGHN awaiting the final result of the MRI first and neurology recommendation prior to the surgical intervention. 11/08: MRI of the brain yesterday with and without gadolinium that showed evidence of left medial posterior brain mass in the watershed area about 2.7 x2.2x1.6 centimeter suggestive of malignancy, patient had an EEG that was quite abnormal, he was started on Keppra as well as Vimpat, recommendation by the neurology to transfer the patient to tertiary care center like [facility] for evaluation of continuous EEG as well as evaluation by neurosurgery, [facility], and they could not get a hold of the neurologist to see if the patient is available to have a continuous EEG monitoring over there as well, we will try to transfer the patient as soon as we hear from them at this point in time continue current treatment plan, patient became quite agitated yesterday is very hard to redirect yesterday he was given a Xanax to try to relax him little bit, we will continue to follow-up with the patient very closely, prognosis continue to be guarded, further recommendations to follow the patient progression and the vocational rehab consultant recommendation REVIEW OF SYSTEMS: Constitutional: No documented fever, or chills, no night sweats, reports fatigue , negative for weight loss. HEENT: occasional headache. No blurred vision or double vision, no loss of vision. No loss of Hearing, no ringing in the ears, no dizziness. No nasal d rainage or congestion. No epistaxis. No sore throat. Respiratory: No shortness of breath, reported cough, no sputum production. No wheezing. Reports dyspnea with activity. Cardiovascular: No chest pain, no lower extremity edema. No palpitations. No paroxysmal nocturnal dyspnea. No orthopnea. No lightheadedness or dizziness. No syncopal episodes. Gastrointestinal: Reports no abdominal pain. No nausea, vomiting. No diarrhea. No constipation. No bloody or tarry stools reports loss of appetite. Genitourinary: No dysuria, increased frequency, urgency. No urinary retention. Musculoskeletal: Negative for myalgias. No muscle weakness, negative for gait dysfunction, no frequent falls, positive for low back pain . Integumentary: No wounds, significant neuropathy to both lower extremities with callus to the third toe and hammertoes. Neurologic: Expressive aphasia. No facial droop. Positive for change in mentation. No head injury. occasional headache. No paralysis. positive for n europathy for both lower extremities. Psychiatric: No depression. No anxiety. No mood swings. Endocrine: Positive for abnormal blood sugars. Positive for weight change. PHYSICAL EXAMINATION: General: This is an 79-year-old male who appears in no distress a ppears to be confused HEENT: Head is atraumatic, normocephalic, pupils were equal round reactive to light and recommendation, extraocular muscle movement were intact, sclera nonicteric, conjunctivae were pale, mucous membranes of the mouth are dry. Neck: Supple, no JVP, normal carotid upstroke bilaterally, no lymphadenopathy. Chest: Decreased breath sounds at the bases, few rhonchi, no expiratory wheezes, no chest wall tenderness, no intercostal retractions. Heart: First heart sound is normal, second heart sound is normal there is systolic ejection murmur 2/6 left sternal border. Abdomen: Soft, nontender, nondistended, positive bowel sounds, no hepatosplenomegaly Extremities: there is mild edema no calf tenderness dorsalis pedis +1 bilaterally. Neurologic examination: Patient is awake alert and oriented x 1, cranial nerves II to XII appear to be gross intact, muscle power 4 out of 5 in upper extremities, and 4 out of 5 in bilateral lower extremities continues to have expressive aphasia, ASSESSMENT AND PLAN: 1. Altered level of consciousness due to mass in the left posterior medial watershed area 2.7 x 2.2 x 1.6 cm suggestive of malignancy primary or metastatic, continue Vimpat as well as Keppra as well neurology is following, EEG is abnormal, awaiting the final disposition of transferring the patient to tertiary care center for continuous EEG monitoring as well as neurosurgery evaluation I have started the transfer process yesterday to [facility]. From yesterday there was no bed available. NO Evidence of a hilary stroke 2. Severe stenosis of the left internal carotid artery 8090% stenosis. Vascular surgery consultation, continue patient on aspirin 325 mg once every day, continue Eliquis 5 mg orally twice every day, continue atorvastatin 80 mg once every day patient will definitely require surgical intervention after obtaining a diagnosis of the brain mass. 3. Slight elevated bilirubin with liver function test, CT scan of the abdomen pelvis did not show any evidence of acute abnormalities continue to monitor the patient's CMP. 4. Paroxysmal atrial fibrillation. Continue patient on metoprolol 100 mg orally twice every day as well as Eliquis 5 mg orally twice every day for life. 5. Coronary artery disease status post Left heart catheterization with PCI of the RCA on 07/30/2020. Continue patient on aspirin 325 mg once every day, continue metoprolol 100 mg orally twice every day, atorvastatin 80 mg once every day. 6. Hypertension and hypertensive cardiovascular disease. Continue metoprolol 100 mg orally twice every day, losartan 100 mg once every day,monitor the patient blood pressure very closely. 7. Hyperlipidemia. Continue patient on atorvastatin 80 mg orally once every day, Zetia 10 mg once every day, monitor the patient lipid panel, keep LDL 55- 70. 8. Diabetes mellitus type 2. We will continue patient on Farxiga 10 mg orally once every, continue insulin glargine 22 units subcutaneously before breakfast, continue with a sliding scale insulin. 9. History of prostate cance status post radiation. Stable at this time. 10. 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 Stable at this time continue current pain management. 11. Urinary retention. continue with Shelley catheter in place 12. DVT prophylaxis. Continue patient on Eliquis 5 mg orally twice every day. 13. GI prophylaxis. Protonix 40 mg orally once every day. 14. Transfer to a tertiary care center if bed becomes available Objective - Vital Signs Vital signs: Vital Signs Temp 97.4 F L 11/07/24 23:32 Pulse 62 11/08/24 04:00 Resp 16 11/08/24 04:00 BP 142/61 11/08/24 04:00 Pulse Ox 96 11/08/24 04:00 FiO2 Intake & Output 11/07/24 11/08/24 11/08/24 18:59 06:59 18:59 Intake Total 776 Output Total 225 350 Balance 551 -350 Weight 130 kg 123.5 kg Intake: Oral 776 Output: Urine 225 350 Other: Voiding Method Indwelling Catheter Indwelling Catheter # Bowel Movements 1 - Labs CBC & Chem 7: 11/08/24 07:34 11/08/24 07:34 Labs: Abnormal Lab Results - Last 24 Hours (Table) 11/07/24 11/07/24 11/07/24 Range/Units 06:13 10:05 10:05 RBC 4.30 L (4.40-5.60) 10*6/uL MCH 32.8 H (27.0-32.0) pg Plt Count 119 L (140-440) 10*3/uL Eosinophils # 0.00 L (0.04-0.35) 10*3/uL BUN 24 H (9-20) mg/dL Creatinine 1.26 H (0.66-1.25) mg/dL Glucose 229 H (74-99) mg/dL POC Glucose (mg/dL) (70-110) mg/dL Hemoglobin A1c 9.1 H (<=6.0) % Total Bilirubin 2.5 H (0.2-1.3) mg/dL AST 82 H (17-59) U/L ALT 72 H (4-49) U/L Total Protein (6.3-8.2) g/dL 11/07/24 11/07/24 11/07/24 Range/Units 13:09 16:44 20:13 RBC (4.40-5.60) 10*6/uL MCH (27.0-32.0) pg Plt Count (140-440) 10*3/uL Eosinophils # (0.04-0.35) 10*3/uL BUN (9-20) mg/dL Creatinine (0.66-1.25) mg/dL Glucose (74-99) mg/dL POC Glucose (mg/dL) 158 H 207 H 192 H (70-110) mg/dL Hemoglobin A1c (<=6.0) % Total Bilirubin (0.2-1.3) mg/dL AST (17-59) U/L ALT (4-49) U/L Total Protein (6.3-8.2) g/dL 11/08/24 11/08/24 11/08/24 Range/Units 06:11 07:34 07:34 RBC (4.40-5.60) 10*6/uL MCH 32.7 H (27.0-32.0) pg Plt Count 103 L (140-440) 10*3/uL Eosinophils # 0.00 L (0.04-0.35) 10*3/uL BUN 26 H (9-20) mg/dL Creatinine (0.66-1.25) mg/dL Glucose 134 H (74-99) mg/dL POC Glucose (mg/dL) 168 H (70-110) mg/dL Hemoglobin A1c (<=6.0) % Total Bilirubin 2.5 H (0.2-1.3) mg/dL AST 77 H (17-59) U/L ALT 82 H (4-49) U/L Total Protein 6.2 L (6.3-8.2) g/dL
[2024-11-08 12:03] LABS: Glucose,Whole Blood 174 mg/dL (70-110)
[2024-11-08 16:41] LABS: Glucose,Whole Blood 180 mg/dL (70-110)
--- NOTE | 2024-11-08 16:52 | EEG ---
DATE OF SERVICE: 11/08/2024 ELECTROENCEPHALOGRAM REPORT PREAMBLE: This is an 79-year-old male with previously significantly abnormal EEG. This is a followup study. CURRENT MEDICATIONS: Include: 1. Keppra. 2. Vimpat. EEG FINDINGS: This is a 21-channel digital EEG recorded with video component, utilizing 10/20 international system with referential and bipolar montages. The background consists of moderately well-developed and regulated mixed frequencies of dysrhythmic theta with occasional delta activity seen in bihemispheric region. Background does not seem to be reactive to eye opening and closing. Photic driving response was not seen. There is continued presence of left posterior parietal/temporal sharp and slow waves seen frequently during the study. Sometimes, they become more regular at almost 1 hertz. No electrographic seizure was recorded. IMPRESSION: Abnormal EEG due to: 1. Presence of epileptiform discharges over the left posterior parietotemporal region, suggestive of focal irritative lesion with underlying cortical irritability. 2. Background slowing of at least moderate degree, suggestive of moderate encephalopathy. 3. When compared to the EEG from 11/07/2024, there is no significant change. MMODL / IJN: [id number] / MTDD
--- NOTE | 2024-11-08 16:52 | EEG ---
DATE OF SERVICE: 11/07/2024 ELECTROENCEPHALOGRAM REPORT PREAMBLE: This is an 79-year-old male with acute onset of aphasia. This study is performed to evaluate for any epileptiform activity. CURRENT MEDICATIONS: 1. Norvasc. 2. Eliquis. 3. Aspirin. 4. Lipitor. 5. Farxiga. 6. Insulin. 7. Cozaar. 8. Lopressor. EEG FINDINGS: This is a 21-channel digital EEG recorded with video component, utilizing 10/20 international system with referential and bipolar montages. The background activity is asymmetric, with relatively better background seen in the right hemispheric region, with presence of mixed frequencies of 6 to 7 hertz theta with some 2 to 3 hertz delta activity seen best in the right posterior head region. Background does not seem to be clearly reactive to eye opening or closing. There is continuous sharp wave and some slow wave activity seen over the left hemispheric region with maximum phase reversal in the parietotemporal region. This sharp wave activity is present almost between 1 to less than 1 hertz range. No electrographic seizure was otherwise recorded. There were occasional periods of suppression noted involving bihemispheric region sporadically as well. Different stages of sleep were not seen. IMPRESSION: Abnormal EEG due to: 1. Presence of epileptiform discharges seen involving the left hemispheric region, maximal left parietal region. This is suggestive of focal cortical neuronal dysfunction with underlying cortical irritability and tendency for seizures. This may be seen with underlying mass lesion. 2. Background slowing of moderate degree, suggestive of [id number] encephalopathy. 3. Recommend continuous EEG monitoring for further evaluation. MMODL / IJN: [id number] / CHASITY
[2024-11-08 19:55] LABS: Glucose,Whole Blood 160 mg/dL (70-110)
--- NOTE | 2024-11-08 22:22 | P.CONS ---
History of Present Illness - Reason for Consult Consult date: 11/08/24 Question of brain abscess Requesting physician: Carey Damian - Chief Complaint Mental status changes x few days - History of Present Illness Patient is a 79-year-old male with a past medical history significant for atrial fibrillation type 2 diabetes mellitus coronary artery disease hypertension hyperlipidemia prostate cancer who was recently admitted at [facility] middle of August 2024 with a right lower extremity wound and cellulitis local culture positive for MSSA patient was not bacteremic and patient has completed course of antibiotic currently with no wound to the right lower extremity patient now presenting to the hospital 3 days ago for evaluation of mental status changes and the patient was not able to make sense in what he was saying patient was evaluated by the ER physician on arrival to the ER the patient had a CT of the brain that was negative for acute infarct versus bleed patient also have CT of abdominal pelvis that was negative for any acute pathology patient on presentation at this facility was afebrile he did have 1 low-grade fever 100.2 F on 11/06/2024 patient was not tachycardic hypotensive or hypoxic patient did have normal white count and no left shift during this hospital stay with a white count of 4.57 this morning BUN acute was mild elevated creatinine is currently 1.12 electrolytes are normal liver enzymes are mildly elevated urine has been negative urine drug screen was positive for opiates patient did have an MRI of the brain that was reported to have an enhancing mass posterior medial left watershed region findings suspicious for neoplasm in addition to the area of abnormal enhancement extends in a more li near appearance anterior to the anterior horn right lateral ventricle extending into the right frontal lobe white matter infectious disease was consulted last evening concerning for possible abscess at the time of my evaluation patient is afebrile he is not a very good historian as he was repeating statement not making any sense I did not answer any question or ask for the nurses aide patient do follow-up when he has been directed to specific task but unable to follow command no clear history of any nausea vomiting or any focal weakness reported Review of Systems Positive points has been mentioned in HPI complete review could not be obtained because of his underlying mental status Past Medical History Past Medical History: Atrial Fibrillation, Coronary Artery Disease (CAD), Cancer, Chest Pain / Angina, CVA/TIA, Diabetes Mellitus, GERD/Reflux, Hyperlipidemia, Hypertension, Osteoarthritis (OA), Prostate Disorder Additional Past Medical History / Comment(s): 5 Herniated discs in neck causing headaches & numbness in arm and right lower back and pain and right leg pain. Prostate Cancer- last radiation tx Mar 25-2016 had total of 44 tx. occ constipation, sepsis Hx Last Myocardial Infarction Date:: UNKOWN History of Any Multi-Drug Resistant Organisms: VRE Year Discovered:: 09/18/20 MDRO Source:: Wound Past Surgical History: Adenoidectomy, Heart Catheterization, Heart C atheterization With Stent, Joint Replacement, Orthopedic Surgery, Tonsillectomy Additional Past Surgical History / Comment(s): PROSTATE BX., LT. KNEE ARTHROSCOPY X 2, CERVICAL FUSIONS, COLONOSCOPY, ÁNGEL. CATARTACTS.Pain Procedures , rt radio frequency procedures. , total 3 heart stents, hemorrhoidectomy,heart cath August 2017-lt knee replacement. Stent replacement \2020, hip Past Anesthesia/Blood Transfusion Reactions: No Reported Reaction Additional Past Anesthesia/Blood Transfusion Reaction / Comm: doesn't like enclosed tight spaces Date of Last Stent Placement:: 04/24/17 Past Psychological History: No Psychological Hx Reported Additional Psychological History / Comment(s): . Smoking Status: Former smoker Past Alcohol Use History: None Reported Additional Past Alcohol Use History / Comment(s): Pt started smoking in 1981 smoked for 2 yrs, smoked 1/2 ppd. 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 Past Drug Use History: None Reported - Past Family History Father Additional Family Medical History / Comment(s): Father at age 49 from coronary artery disease. Brother(s) Additional Family Medical History / Comment(s): Patient has one brother with history of smoking and no other major medical problems. Patient does not have any sisters. Daughter(s) Additional Family Medical History / Comment(s): Patient has one daughter with history of muscular dystrophy and of pneumonia. Son(s) Family Medical History: No Reported History Additional Family Medical History / Comment(s): Patient has one son with no ma elie medical problems. Mother Family Medical History: Cancer Additional Family Medical History / Comment(s): Mother at age 81 from uterine cancer with metastatic disease. Medications and Allergies Home Medications Medication Instructions Recorded Confirmed Type Atorvastatin [Lipitor] 80 mg PO HS 09/01/20 11/05/24 History Aspirin EC [Ecotrin Low Dose] 81 mg PO BID 09/11/21 11/05/24 History Apixaban [Eliquis] 5 mg PO BID tab 09/22/21 11/05/24 Rx Nitroglycerin Sl Tabs [Nitrostat] 0.4 mg SUBLINGUAL Q5M PRN tab 09/22/21 11/05/24 Rx Dapagliflozin Propanediol [Farxiga] 10 mg PO DAILY 06/10/23 11/05/24 History Losartan Potassium 100 mg PO DAILY 06/10/23 11/05/24 History Metoprolol Tartrate [Lopressor] 100 mg PO BID 06/10/23 11/05/24 History HYDROcodone/APAP 5-325MG [[place] 1 tab PO Q12H PRN 05/03/24 11/05/24 History 5-325] Linezolid [Zyvox] 600 mg PO Q12H #20 tab 09/06/24 11/05/24 Rx amLODIPine [Norvasc] 5 mg PO DAILY #90 tab 09/06/24 11/05/24 Rx Insulin Glargine/Lixisenatide 20 units SQ AC-[id number] 11/05/24 11/05/24 History [[place] 100 Unit-33 Mcg/ml Pen] Allergies Allergy/AdvReac Type Severity Reaction Status Date / Time No Known Allergies Allergy Verified 11/05/24 16:22 Physical Exam Vitals: Vital Signs Temp Pulse Resp BP Pulse Ox 11/08/24 04:00 62 16 142/61 96 11/07/24 23:32 97.4 F L 57 L 18 136/64 95 11/07/24 19:48 98.4 F 62 14 117/68 94 L 11/07/24 16:00 98.1 F 64 18 125/76 96 11/07/24 14:00 74 18 11/07/24 12:00 98.1 F 64 18 144/81 97 Intake and Output 11/07/24 11/08/24 11/08/24 22:59 06:59 14:59 Intake Total 118 120 Output Total 225 350 Balance -107 -350 120 Intake: Oral 118 120 Output: Urine 225 350 Other: Voiding Method Indwelling Catheter Indwelling Catheter # Bowel Movements 1 Weight 123.5 kg GENERAL DESCRIPTION: Elderly male up in the chair, no distress. No tachypnea or accessory muscle of respiration use. HEENT: Shows Pallor , no scleral icterus. Oral mucous membrane is dry. NECK: Trachea central, no thyromegaly. LUNGS: Unlabored breathing. Clear to auscultation anteriorly. No wheeze or crackle. HEART: S1, S2, regular rate and rhythm. No loud murmur ABDOMEN: Soft, no tenderness , guarding or rigidity, no organomegaly EXTREMITIES: No edema of feet. SKIN: No rash, no masses palpable. NEUROLOGICAL: The patient is awake, pleasantly confused orientation cannot be determined Results CBC & Chem 7: 11/09/24 05:58 11/08/24 07:34 Labs: Abnormal Lab Results - Last 24 Hours (Table) 11/07/24 11/07/24 11/07/24 Range/Units 10:05 10:05 13:09 RBC 4.30 L (4.40-5.60) 10*6/uL MCH 32.8 H (27.0-32.0) pg Plt Count 119 L (140-440) 10*3/uL Eosinophils # 0.00 L (0.04-0.35) 10*3/uL BUN 24 H (9-20) mg/dL Creatinine 1.26 H (0.66-1.25) mg/dL Glucose 229 H (74-99) mg/dL POC Glucose (mg/dL) 158 H (70-110) mg/dL Total Bilirubin 2.5 H (0.2-1.3) mg/dL AST 82 H (17-59) U/L ALT 72 H (4-49) U/L Total Protein (6.3-8.2) g/dL 11/07/24 11/07/24 11/08/24 Range/Units 16:44 20:13 06:11 RBC (4.40-5.60) 10*6/uL MCH (27.0-32.0) pg Plt Count (140-440) 10*3/uL Eosinophils # (0.04-0.35) 10*3/uL BUN (9-20) mg/dL Creatinine (0.66-1.25) mg/dL Glucose (74-99) mg/dL POC Glucose (mg/dL) 207 H 192 H 168 H (70-110) mg/dL Total Bilirubin (0.2-1.3) mg/dL AST (17-59) U/L ALT (4-49) U/L Total Protein (6.3-8.2) g/dL 11/08/24 11/08/24 Range/Units 07:34 07:34 RBC (4.40-5.60) 10*6/uL MCH 32.7 H (27.0-32.0) pg Plt Count 103 L (140-440) 10*3/uL Eosinophils # 0.00 L (0.04-0.35) 10*3/uL BUN 26 H (9-20) mg/dL Creatinine (0.66-1.25) mg/dL Glucose 134 H (74-99) mg/dL POC Glucose (mg/dL) (70-110) mg/dL Total Bilirubin 2.5 H (0.2-1.3) mg/dL AST 77 H (17-59) U/L ALT 82 H (4-49) U/L Total Protein 6.2 L (6.3-8.2) g/dL Assessment and Plan (1) Abnormal MRI of head Current Visit: Yes Status: Acute Code(s): R93.0 - ABNORMAL FINDINGS ON DX IMAGING OF SKULL AND HEAD, NEC SNOMED Code(s): 310869388589561 Plan: 1patient presented to hospital with mental status changes patient did not have any elevated white count or any high-grade fevers he did have abnormal MRI concerning for possible mass question of possible malignancy MRI did not mention any surrounding erythema or fluid to be suspicious for an abscess at the patient is clinically not behaving as a brain abscess patient recently did have a right lower extremity wound which was superficial and culture positive for MSSA and he did not have a history of septic arthritis and the patient was not bacteremic 2-patient benefit from neurosurgery evaluation for biopsy as well as culture for better diagnosis 3-I will obtain blood culture CRP and procalcitonin and results will be followed We will follow on clinical condition and cultures to further adjust medication if needed Thank you for this consultation we will follow the patient along with you Dictation was produced using [employer] dictation software. please excuse any grammatical, word or spelling errors. Time with Patient: Greater than 30
--- NOTE | 2024-11-08 22:25 | P.PN ---
Subjective Progress Note Date: 11/08/24 Patient was seen for follow-up. Patient continues to be aphasic. No improvement. Per sitter, patient sometimes speaks few phrases. He has good balance, walks with 1 assist. He still cannot get words out. No seizure-like activity noted. Objective - Vital Signs Vital signs: Vital Signs Temp 97.3 F L 11/08/24 15:20 Pulse 98 11/08/24 12:35 Resp 18 11/08/24 15:20 BP 116/57 11/08/24 15:20 Pulse Ox 98 11/08/24 15:20 FiO2 Intake & Output 11/07/24 11/08/24 11/08/24 18:59 06:59 18:59 Intake Total 776 240 Output Total 225 350 Balance 551 -350 240 Weight 130 kg 123.5 kg Intake: Oral 776 240 Output: Urine 225 350 Other: Voiding Method Indwelling Catheter Indwelling Catheter Indwelling Catheter # Bowel Movements 1 - Exam Continues to be globally aphasic. Perseverates on few phrases. Patient not cooperating with examination. No seizure-like activity noticed. Patient not able to answer any question. Does not follow directions. Patient is globally aphasic. Cannot get words out. - Labs CBC & Chem 7: 11/08/24 07:34 11/08/24 07:34 Labs: Abnormal Lab Results - Last 24 Hours (Table) 11/07/24 11/07/24 11/08/24 Range/Units 16:44 20:13 06:11 MCH (27.0-32.0) pg Plt Count (140-440) 10*3/uL Eosinophils # (0.04-0.35) 10*3/uL BUN (9-20) mg/dL Glucose (74-99) mg/dL POC Glucose (mg/dL) 207 H 192 H 168 H (70-110) mg/dL Total Bilirubin (0.2-1.3) mg/dL AST (17-59) U/L ALT (4-49) U/L Total Protein (6.3-8.2) g/dL 11/08/24 11/08/24 11/08/24 Range/Units 07:34 07:34 12:01 MCH 32.7 H (27.0-32.0) pg Plt Count 103 L (140-440) 10*3/uL Eosinophils # 0.00 L (0.04-0.35) 10*3/uL BUN 26 H (9-20) mg/dL Glucose 134 H (74-99) mg/dL POC Glucose (mg/dL) 174 H (70-110) mg/dL Total Bilirubin 2.5 H (0.2-1.3) mg/dL AST 77 H (17-59) U/L ALT 82 H (4-49) U/L Total Protein 6.2 L (6.3-8.2) g/dL Assessment and Plan Assessment: * Altered mental status, with global aphasia, impaired comprehension. * Abnormal brain MRI, with evidence of enhancing mass posterior medial region, concerning for neoplasm versus brain abscess. * Abnormal EEG with epileptiform activity over the left posterior parietal temporal region * Left ICA stenosis, severe degree * Hypertension * Diabetes * Hyperlipidemia * Atrial fibrillation, on Eliquis * Coronary artery disease * Osteoarthritis * Ex tobacco use * History of cervical fusion Plan: Patient has presented with acute neurological change with inability to speak, aphasia. Rest of the examination is relatively nonfocal although he did not cooperate at all. MRI of the brain with and without contrast revealed enhancing mass posterior medial left watershed region. Findings is suspicious for neoplasm. An additional area of abnormal enhancement extends in a more linear appearance anterior to the anterior horn right lateral ventricle extending into the right frontal lobe white matter. Vascular structure appears to correlate with the prior CT and MRI brain. I personally reviewed MRI, and appears right frontal lesion appears venous angioma. Otherwise agree with enhancing lesion on the left side. Repeat EEG 11/08/2024 revealed presence of epileptiform discharges over the left posterior parietotemporal region, suggestive of focal irritative lesion with underlying cortical irritability. No obvious electrographic seizure was recorded. Background slowing suggestive of moderate encephalopathy. When compared to the EEG from 11/07/2024, there is not much change. In the appropriate clinical setting, partial status is also a possibility. Clinical correlation recommended. Initial EEG 11/07/2024 was severely abnormal because of presence of continuous high amplitude sharp waves over the left hemispheric region, maximal left parietal region, suggestive of focal cortical neuronal dysfunction with und erlying cortical irritability and tendency for seizure. No electrographic seizure was recorded. Patient already on Keppra 1500 mg twice daily and Vimpat 200 mg twice daily without any clinical improvement. We will add Dilantin full loading dose. Patient needs to be transferred to higher level of care for neurosurgical consultation for brain mass and also for continuous EEG monitoring. 2-D echo revealed LVEF 60 to 65%. Moderately increased septal wall thickness. No obvious regional wall motion abnormalities. Normal left atrial size. No significant valvular dysfunction. CTA head and neck showed: No evidence of dissection of the cervical internal carotid arteries or vertebral arteries. Approximately 80 to 90% stenosis of the proximal left ICA due to extensive calcified atherosclerotic plaque. No evidence of intracranial high-grade stenosis or intracranial aneurysm. Vascular surgery has seen the patient. They are recommending addressing medical/neurological issues before contemplating any vascular surgery. Fasting a.m. Lipid panel with cholesterol 124, LDL 20, HDL 33 and triglycerides 351. Patient on Lipitor 80 mg daily at home. Hemoglobin A1c 11.5 on 09/03/2024. Recommend optimize control of diabetes to target A1c <7.0 Optimize control of blood pressure. Continue Eliquis, aspirin and statins. Neuro checks as per protocol. Telemetry monitoring rule out any arrhythmia PT, OT, speech therapy DVT prophylaxis: Patient on Eliquis Discussed with patient's nurse. Recommend transfer to higher level of care with above recommendations. Patient accepted, but bed not available at [facility]. Discussed with patient's nurse. Recommended patient to be transferred to [facility] or [facility] whoever can accept the patient fast.
[2024-11-08] MEDS: levETIRAcetam IV 500 MG/5 ML VIAL IVP STA (23:50)
[2024-11-09 06:16] LABS: Glucose,Whole Blood 126 mg/dL (70-110)
--- NOTE | 2024-11-09 08:46 | P.PN ---
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 as well as radio frequency ablation, prostate cancer status post radiation therapy, MSSA septic arthritis left knee, patient was recently hospitalized at [facility] August 2024 after he was admitted for right lower extremity methicillin sensitive Staphylococcus aureus cellulitis and he was discharged in stable condition, a pparently the patient was seen and followed up in the office and he was doing fine, he was brought into the emergency department yesterday because of mental status changes and the patient was not able to make sense in what his was saying, according to the EMS report and the police department report the patient was making some suicidal statements and threats which the patient denied completely, patient was not sure why he was in the emergency department at this point in time, he was not able to know exactly what is going on, because of that he was sent for a CT scan of brain that was negative for acute infarct versus bleed, this was followed by CT angiography of the neck and the brain showed evidence of 89% stenosis of the left internal carotid artery due to extensive plaque., patient had a CT scan of the abdomen pelvis was negative, but because of the presentation and because of the underlying history of paroxysmal atrial fibrillation he was admitted to the hospital for evaluation by neurology, vascular surgery consultation was obtained as well, patient does appear to be not able to find words, he appears to have had a stroke, even though the CAT scan is negative, we will obtain MRI of the brain with and without gadolinium as soon as possible, neurology consultation, neurocheck [id number], 11/07: Patient continues to have expressive aphasia on and off, he is retaining quite a bit of urine currently has a Shelley catheter in place, will continue with that, MRI of the brain with and without contrast will be done today, the report is not up yet, continue to follow-up with the patient very closely, continue patient on aspirin 325 mg once every day, continue Eliquis 5 mg orally twice every day, patient does appear to have an 89% stenosis of the left internal carotid artery patient will need to have a left carotid endarterectomy DEVAUGHN awaiting the final result of the MRI first and neurology recommendation prior to the surgical intervention. 11/08: MRI of the brain yesterday with and without gadolinium that showed evidence of left medial posterior brain mass in the watershed area about 2.7 x2.2x1.6 centimeter suggestive of malignancy, patient had an EEG that was quite abnormal, he was started on Keppra as well as Vimpat, recommendation by the neurology to transfer the patient to tertiary care center like [facility] for evaluation of continuous EEG as well as evaluation by neurosurgery, [facility], and they could not get a hold of the neurologist to see if the patient is available to have a continuous EEG monitoring over there as well, we will try to transfer the patient as soon as we hear from them at this point in time continue current treatment plan, patient became quite agitated yesterday is very hard to redirect yesterday he was given a Xanax to try to relax him little bit, we will continue to follow-up with the patient very closely, prognosis continue to be guarded, further recommendations to follow the patient progression and the lean process deployment consultant recommendation 11/09: Patient sitting up in bed continues to have expressive aphasia, he is alert and oriented x 1, he is not able to express himself all the time, he has no chest pain at this time, no shortness of breath, does not appear to be in acute distress, I am still awaiting for [facility] bed availability at this point in time to be transferred to ED to be evaluated by neurosurgery meanwhile we will contact her referral to hospital to see if there is a bed available, continue current treatment plan, continue to follow-up with the patient very closely was started on Vimpat 200 mg IV piggyback every 12 hours, as well as Keppra 2000 mg of piggyback every 12 hours by neurology, he was seen in consultation by infectious disease, recommended neurosurgery evaluation as well, neurology is recommending immediate transfer to a tertiary care center for continuous EEG monitoring which we are working on unfortunately there is no beds available so far. REVIEW OF SYSTEMS: Constitutional: No documented fever, or chills, no night sweats, reports fatigue , negative for weight loss. HEENT: occasional headache. No blurred vision or double vision, no loss of vision. No loss of Hearing, no ringing in the ears, no dizziness. No nasal drainage or congestion. No epistaxis. No sore throat. Respiratory: No shortness of breath, reported cough, no sputum production. No wheezing. Reports dyspnea with activity. Cardiovascular: No chest pain, no lower extremity edema. No palpitations. No paroxysmal nocturnal dyspnea. No orthopnea. No lightheadedness or dizziness. No syncopal episodes. Gastrointestinal: Reports no abdominal pain. No nausea, vomiting. No diarrhea. No constipation. No bloody or tarry stools reports loss of appetite. Genitourinary: No dysuria, increased frequency, urgency. No urinary retention. Musculoskeletal: Negative for myalgias. No muscle weakness, negative for gait dysfunction, no frequent falls, positive for low back pain . Integumentary: No wounds, significant neuropathy to both lower extremities with callus to the third toe and hammertoes. Neurologic: Expressive aphasia. No facial droop. Positive for change in mentation. No head injury. occasional headache. No paralysis. positive for neuropathy for both lower extremities. Psychiatric: No depression. No anxiety. No mood swings. Endocrine: Positive for abnormal blood sugars. Positive for weight change. PHYSICAL EXAMINATION: General: This is an 79-year-old male who appears in no distress appears to be confused HEENT: Head is atraumatic, normocephalic, pupils were equal round reactive to light and recommendation, extraocular muscle movement were intact, sclera nonicteric, conjunctivae were pale, mucous membranes of the mouth are dry. Neck: Supple, no JVP, normal carotid upstroke bilaterally, no lymphadenopathy. Chest: Decreased breath sounds at the bases, few rhonchi, no expiratory wheezes, no chest wall tenderness, no intercostal retractions. Heart: First heart sound is normal, second heart sound is normal there is systolic ejection murmur 2/6 left sternal border. Abdomen: Soft, nontender, nondistended, positive bowel sounds, no hepatosplenomegaly Extremities: there is mild edema no calf tenderness dorsalis pedis +1 bila terally. Neurologic examination: Patient is awake alert and oriented x 1, cranial nerves II to XII appear to be gross intact, muscle power 4 out of 5 in upper extremities, and 4 out of 5 in bilateral lower extremities continues to have expressive aphasia, ASSESSMENT AND PLAN: 1. Altered level of consciousness due to mass in the left posterior medial watershed area 2.7 x 2.2 x 1.6 cm suggestive of malignancy primary or metastatic, continue Vimpat as well as Keppra as well neurology is following, EEG is abnormal, awaiting the final disposition of transferring the patient to tertiary care center for continuous EEG monitoring as well as neurosurgery evaluation I have started the transfer process yesterday to [facility]. From yesterday there was no bed available. NO Evidence of a hilary stroke, continue patient on Vimpat 200 mg p.o. piggyback every 12 hours, continue Keppra 2000 mg a piggyback every 12 hours, we will contact [facility] to see i f there is a bed available. 2. 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 Vascular surgery consultation, continue patient on aspirin 325 mg once every day, continue Eliquis 5 mg orally twice every day, continue atorvastatin 80 mg once every day patient will definitely require surgical intervention after obtaining a diagnosis of the brain mass. 3. Slight elevated bilirubin with liver function test, CT scan of the abdomen pelvis did not show any evidence of acute abnormalities continue to monitor the patient's CMP. 4. Paroxysmal atrial fibrillation. Continue patient on metoprolol 100 mg orally twice every day as well as Eliquis 5 mg orally twice every day for life. 5. Coronary artery disease status post Left heart catheterization with PCI of the RCA on 07/30/2020. Continue patient on aspirin 325 mg once every day, continue metoprolol 100 mg orally twice every day, atorvastatin 80 mg once every day. 6. Hypertension and hypertensive cardiovascular disease. Continue metoprolol 100 mg orally twice every day, losartan 100 mg once every day,monitor the patient blood pressure very closely. 7. Hyperlipidemia. Continue patient on atorvastatin 80 mg orally once every day, Zetia 10 mg once every day, monitor the patient lipid panel, keep LDL 55- 70. 8. Diabetes mellitus type 2. We will continue patient on Farxiga 10 mg orally once every, continue insulin glargine 22 units subcutaneously before breakfast, continue with a sliding scale insulin. 9. History of prostate cance status post radiation. Stable at this time. 10. 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 Stable at this time continue current pain management. 11. Urinary retention. continue with Shelley catheter in place 12. DVT prophylaxis. Continue patient on Eliquis 5 mg orally twice every day. 13. GI prophylaxis. Protonix 40 mg orally once every day. 14. Transfer to a tertiary care center if bed becomes available Objective - Vital Signs Vital signs: Vital Signs Temp 97.8 F 11/09/24 04:10 Pulse 57 L 11/09/24 04:10 Resp 20 11/09/24 04:10 BP 150/83 11/09/24 04:10 Pulse Ox 97 11/09/24 04:10 FiO2 Intake & Output 11/08/24 11/09/24 11/09/24 18:59 06:59 18:59 Intake Total 476 540 Output Total 300 1150 Balance 176 -610 Weight 120 kg Intake: Oral 476 540 Output: Urine 300 1150 Other: Voiding Method Indwelling Catheter Indwelling Catheter # Bowel Movements 1 - Labs CBC & Chem 7: 11/08/24 07:34 11/08/24 07:34 Labs: Abnormal Lab Results - Last 24 Hours (Table) 11/08/24 11/08/24 11/08/24 Range/Units 07:34 07:34 12:01 MCH 32.7 H (27.0-32.0) pg Plt Count 103 L (140-440) 10*3/uL Eosinophils # 0.00 L (0.04-0.35) 10*3/uL BUN 26 H (9-20) mg/dL Glucose 134 H (74-99) mg/dL POC Glucose (mg/dL) 174 H (70-110) mg/dL Total Bilirubin 2.5 H (0.2-1.3) mg/dL AST 77 H (17-59) U/L ALT 82 H (4-49) U/L Total Protein 6.2 L (6.3-8.2) g/dL 11/08/24 11/08/24 11/09/24 Range/Units 16:40 19:53 06:14 MCH (27.0-32.0) pg Plt Count (140-440) 10*3/uL Eosinophils # (0.04-0.35) 10*3/uL BUN (9-20) mg/dL Glucose (74-99) mg/dL POC Glucose (mg/dL) 180 H 160 H 126 H (70-110) mg/dL Total Bilirubin (0.2-1.3) mg/dL AST (17-59) U/L ALT (4-49) U/L Total Protein (6.3-8.2) g/dL
[2024-11-09 09:21] LABS: Basophils # (A) 0.02 10*3/uL (0.00-0.10); Basophils % (A) 0.6 %; Eosinophils # (A) 0.00 10*3/uL (0.04-0.35); Eosinophils % (A) 0.0 %; HCT 40.7 % (39.6-50.0); HGB 13.8 g/dL (13.0-17.0); Lymphocytes # (A) 1.16 10*3/uL (0.90-5.00); Lymphocytes % (A) 32.5 %; MCH 31.8 pg (27.0-32.0); MCHC 33.9 g/dL (32.0-37.0); MCV 93.8 fL (80.0-97.0); Monocytes # (A) 0.50 10*3/uL (0.20-1.00); Monocytes % (A) 14.0 %; Neutrophils # (A) 1.88 10*3/uL (1.80-7.70); Neutrophils % (A) 52.6 %; Platelet Count 105 10*3/uL (140-440); RBC 4.34 10*6/uL (4.40-5.60); RDW 13.1 % (11.5-14.5); WBC 3.57 10*3/uL (4.50-10.00)
[2024-11-09] MEDS: levETIRAcetam IV 2,000 MG in SODIUM CHLORIDE 0.9% 250 ML IVPB ONE (10:10)
[2024-11-09 11:34] LABS: Glucose,Whole Blood 187 mg/dL (70-110)
--- NOTE | 2024-11-09 15:52 | P.PN ---
Subjective Progress Note Date: 11/09/24 Principal diagnosis: Reason for follow-up visit abnormal MRI and question of possible brain abscess Patient is a 79-year-old male with a past medical history significant for atrial fibrillation type 2 diabetes mellitus coronary artery disease hypertension hyperlipidemia prostate cancer admitted to hospital mental status changes patient did have an MRI with significant finding of possible mass ID was consulted with a question of possible abscess. On today's evaluation that is 11/09/2024,the patient remains to be afebrile, patient is on room air not requiring supplemental oxygen and mentioned breathing comfortably patient seem to be awake but not very good historian denies any headache no vomiting or diarrhea has been reported. Patient white count is 3.57 ESR is less than 1 CRP is less than 0.5 procalcitonin 0.13 blood cultures are pending Objective - Vital Signs Vital signs: Vital Signs Temp 97.9 F 11/09/24 08:06 Pulse 72 11/09/24 08:06 Resp 16 11/09/24 08:06 BP 145/73 11/09/24 08:06 Pulse Ox 96 11/09/24 08:06 FiO2 Intake & Output 11/08/24 11/09/24 11/09/24 18:59 06:59 18:59 Intake Total 476 540 236 Output Total 300 1150 Balance 176 -610 236 Weight 120 kg Intake: Oral 476 540 236 Output: Urine 300 1150 Other: Voiding Method Indwelling Catheter Indwelling Catheter Indwelling Catheter # Bowel Movements 1 1 - Exam GENERAL DESCRIPTION: An elderly male lying in bed in no distress RESPIRATORY SYSTEM: Unlabored breathing , decreased breath sounds at bases HEART: S1 S2 regular rate and rhythm , ABDOMEN: Soft , no tenderness EXTREMITIES: No edema feet - Labs CBC & Chem 7: 11/09/24 05:58 11/08/24 07:34 Labs: Abnormal Lab Results - Last 24 Hours (Table) 11/08/24 11/08/24 11/09/24 Range/Units 16:40 19:53 05:58 WBC 3.57 L (4.50-10.00) 10*3/uL RBC 4.34 L (4.40-5.60) 10*6/uL Plt Count 105 L (140-440) 10*3/uL Eosinophils # 0.00 L (0.04-0.35) 10*3/uL POC Glucose (mg/dL) 180 H 160 H (70-110) mg/dL 11/09/24 11/09/24 Range/Units 06:14 11:30 WBC (4.50-10.00) 10*3/uL RBC (4.40-5.60) 10*6/uL Plt Count (140-440) 10*3/uL Eosinophils # (0.04-0.35) 10*3/uL POC Glucose (mg/dL) 126 H 187 H (70-110) mg/dL Assessment and Plan (1) Abnormal MRI of head Current Visit: Yes Status: Acute Code(s): R93.0 - ABNORMAL FINDINGS ON DX IMAGING OF SKULL AND HEAD, NEC SNOMED Code(s): 667504254780580 Plan: 1patient presented to hospital with mental status changes patient did not have any elevated white count or any high-grade fevers he did have abnormal MRI con cerning for possible mass question of possible malignancy MRI did not mention any surrounding erythema or fluid to be suspicious for an abscess at the patient is clinically not behaving as a brain abscess patient recently did have a right lower extremity wound which was superficial and culture positive for MSSA and he did not have a history of septic arthritis and the patient was not bacteremic 2-patient benefit from neurosurgery evaluation for biopsy as well as culture for better diagnosis 3-patient did have a normal CRP procalcitonin as well as ESR that would make brain abscess to be less likely in this age we discussed in detail with the neurologist we will check a PSA and liver ultrasound on admission evidence of any masses in the liver that may be easy to biopsy Dictation was produced using [employer] software. please excuse any grammatical, word or spelling errors.
[2024-11-09 16:24] LABS: Glucose,Whole Blood 172 mg/dL (70-110)
[2024-11-09 17:35] VITALS: RESP 18
[2024-11-09 20:00] LABS: Glucose,Whole Blood 151 mg/dL (70-110)
[2024-11-09 20:12] VITALS: BP 150/77; PULSE 59; TEMP 97.5
[2024-11-09] MEDS: levETIRAcetam IV 2,000 MG in SODIUM CHLORIDE 0.9% 250 ML IVPB SCH (20:54)
--- NOTE | 2024-11-10 06:58 | P.DS ---
Providers Date of admission: 11/05/24 18:57 Expected date of discharge: 11/09/24 Attending physician: German Astudillo Consults: 11/05/24 18:57 Consult Physician Routine Consulting Provider: Trevor Louis Consult Reason/Comments: cva Do you want consulting provider notified?: Yes 11/07/24 17:34 Consult Physician Urgent Consulting Provider: Yessy Strickland Consult Reason/Comments: Abnormal brain mass. Rule out brain abscess. Recent h/o septic arthritis Do you want consulting provider notified?: Yes Primary care physician: German Astudillo [facility] Course: HISTORY OF PRESENT ILLNESS: This is an 79-year-old male patient of [facility] with previous medical history significant for coronary artery disease status post percutaneous coronary intervention and stent placement last one was in 12/13/2019 in the mid RCA at that time he was found to have a totally occluded obtuse marginal one of the LCx, with collaterals from the PDA, hypertension and hypertensive cardiovascular disease, hyperlipidemia, diabetes mellitus type 2, diabetic polyneuropathy, 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 as well as radio frequency ablation, prostate cancer status post radiation therapy, MSSA septic arthritis left knee, patient was recently hospitalized at [facility] August 2024 after he was admitted for right lower extremity methicillin sensitive Staphylococcus aureus cellulitis and he was discharged in stable condition, apparently the patient was seen and followed up in the office and he was doing fine, he was brought into the emergency department yesterday because of mental status changes and the patient was not able to make sense in what his was saying, according to the EMS report and the police department report the patient was making some suicidal statements and threats which the patient denied completely, patient was not sure why he was in the emergency department at this point in time, he was not able to know exactly what is going on, because of that he was sent for a CT scan of brain that was negative for acute infarct versus bleed, this was followed by CT angiography of the neck and the brain showed evidence of 89% stenosis of the left internal carotid artery due to extensive plaque., patient had a CT scan of the abdomen pelvis was negative, but because of the presentation and because of the underlying history of paroxysmal atrial fibrillation he was admitted to the hospital for evaluation by neurology, vascular surgery consultation was obtained as well, patient does appear to be not able to find words, he appears to have had a stroke, even though the CAT scan is negative, we will obtain MRI of the brain with and without gadolinium as soon as possible, neurology consultation, neurocheck [id number], 11/07: Patient continues to have expressive aphasia on and off, he is retaining quite a bit of urine currently has a Shelley catheter in place, will continue with that, MRI of the brain with and without contrast will be done today, the report is not up yet, continue to follow-up with the patient very closely, continue patient on aspirin 325 mg once every day, continue Eliquis 5 mg orally twice every day, patient does appear to have an 89% stenosis of the left internal carotid artery patient will need to have a left carotid endarterectomy DEVAUGHN awaiting the final result of the MRI first and neurology recommendation prior to the surgical intervention. 11/08: MRI of the brain yesterday with and without gadolinium that showed evidence of left medial posterior brain mass in the watershed area about 2.7 x2.2x1.6 centimeter suggestive of malignancy, patient had an EEG that was quite abnormal, he was started on Keppra as well as Vimpat, recommendation by the neurology to transfer the patient to tertiary care center like [facility] for evaluation of continuous EEG as well as evaluation by neurosurgery, [facility], and they could not get a hold of the neurologist to see if the patient is available to have a continuous EEG monitoring over there as well, we will try to transfer the patient as soon as we hear from them at this point in time continue current treatment plan, patient became quite agitated yesterday is very hard to redirect yesterday he was given a Xanax to try to relax him little bit, we will continue to follow-up with the patient very closely, prognosis continue to be guarded, further recommendations to follow the patient progression and the acquisition consultant recommendation 11/09: Patient sitting up in bed continues to have expressive aphasia, he is alert and oriented x 1, he is not able to express himself all the time, he has no chest pain at this time, no shortness of breath, does not appear to be in acute distress, I am still awaiting for [facility] bed availability at this point in time to be transferred to ED to be evaluated by neurosurgery meanwhile we will contact her referral to hospital to see if there is a bed available, continue current treatment plan, continue to follow-up with the patient very closely was started on Vimpat 200 mg IV piggyback every 12 hours, as well as Keppra 2000 mg of piggyback every 12 hours by neurology, he was seen in consultation by infectious disease, recommended neurosurgery evaluation as well, neurology is recommending immediate transfer to a tertiary care center for continuous EEG monitoring which we are working on unfortunately there is no beds available so far. Discharge diagnoses: 1. Altered level of consciousness due to mass in the left posterior medial watershed area 2.7 x 2.2 x 1.6 cm suggestive of malignancy primary or metastatic, 2. 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 3. Slight elevated bilirubin with liver function test, CT scan of the abdomen pelvis did not show any evidence of acute abnormalities 4. Paroxysmal atrial fibrillation. 5. Coronary artery disease status post Left heart catheterization with PCI of the RCA on 07/30/2020. 6. Hypertension and hypertensive cardiovascular disease. 7. Hyperlipidemia. 8. Diabetes mellitus type 2. 9. History of prostate cance status post radiation. 10. 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 11. Urinary retention. Patient Condition at Discharge: Serious Plan - Discharge Summary New Discharge Prescriptions: No Action Aspirin EC [Ecotrin Low Dose] 81 mg PO BID Apixaban [Eliquis] 5 mg PO BID tab Metoprolol Tartrate [Lopressor] 100 mg PO BID Dapagliflozin Propanediol [Farxiga] 10 mg PO DAILY Linezolid [Zyvox] 600 mg PO Q12H #20 tab Atorvastatin [Lipitor] 80 mg PO HS Nitroglycerin Sl Tabs [Nitrostat] 0.4 mg SUBLINGUAL Q5M PRN tab PRN Reason: Chest Pain Losartan Potassium 100 mg PO DAILY HYDROcodone/APAP 5-325MG [[place] 5-325] 1 tab PO Q12H PRN PRN Reason: Pain amLODIPine [Norvasc] 5 mg PO DAILY #90 tab Insulin Glargine/Lixisenatide [[place] 100 Unit-33 Mcg/ml Pen] 20 units SQ AC-BRKFST Discharge Medication List Atorvastatin [Lipitor] 80 mg PO HS 09/01/20 [History] Aspirin EC [Ecotrin Low Dose] 81 mg PO BID 09/11/21 [History] Apixaban [Eliquis] 5 mg PO BID tab 09/22/21 [Rx] Nitroglycerin Sl Tabs [Nitrostat] 0.4 mg SUBLINGUAL Q5M PRN tab 09/22/21 [Rx] Dapagliflozin Propanediol [Farxiga] 10 mg PO DAILY 06/10/23 [History] Losartan Potassium 100 mg PO DAILY 06/10/23 [History] Metoprolol Tartrate [Lopressor] 100 mg PO BID 06/10/23 [History] HYDROcodone/APAP 5-325MG [[place] 5-325] 1 tab PO Q12H PRN 05/03/24 [History] Linezolid [Zyvox] 600 mg PO Q12H #20 tab 09/06/24 [Rx] amLODIPine [Norvasc] 5 mg PO DAILY #90 tab 09/06/24 [Rx] Insulin Glargine/Lixisenatide [[place]iqu[place] 100 Unit-33 Mcg/ml Pen] 20 units SQ AC- BRKFST 11/05/24 [History] Follow up Appointment(s)/Referral(s): German Astudillo MD [Primary Care Provider] - 1-2 days Jermain Dailey DO [STAFF PHYSICIAN] - 4 Weeks [facility], [NON-STAFF] - 1 Week Discharge Disposition: TRANSFER TO [facility]
--- NOTE | 2024-11-10 11:35 | P.PN ---
Subjective Progress Note Date: 11/09/24 Patient was seen for follow-up. Patient continues to be aphasic. No improvement. Per sitter, patient sometimes speaks few phrases. He has good balance, walks with 1 assist. He still cannot get words out. No seizure-like activity noted. Patient after the converses more with his family members but not to the staff in general. Uncertain if he acts selective response to different people. But definitely patient is aphasic. Objective - Vital Signs Vital signs: Vital Signs Temp 97.3 F L 11/09/24 16:00 Pulse 63 11/09/24 16:00 Resp 18 11/09/24 16:00 BP 121/75 11/09/24 16:00 Pulse Ox 95 11/09/24 16:00 FiO2 Intake & Output 11/09/24 11/09/24 11/10/24 06:59 18:59 06:59 Intake Total 540 712 Output Total 1150 400 Balance -610 312 Weight 120 kg Intake: Oral 540 712 Output: Urine 1150 400 Other: Voiding Method Indwelling Catheter Indwelling Catheter # Bowel Movements 1 - Exam Continues to be globally aphasic. Perseverates on few phrases. Patient not cooperating with examination. No seizure-like activity noticed. Patient not able to answer any question. Does not follow directions. Patient is globally aphasic. Cannot get words out. - Labs CBC & Chem 7: 11/09/24 05:58 11/08/24 07:34 Labs: Abnormal Lab Results - Last 24 Hours (Table) 11/08/24 11/09/24 11/09/24 Range/Units 19:53 05:58 06:14 WBC 3.57 L (4.50-10.00) 10*3/uL RBC 4.34 L (4.40-5.60) 10*6/uL Plt Count 105 L (140-440) 10*3/uL Eosinophils # 0.00 L (0.04-0.35) 10*3/uL POC Glucose (mg/dL) 160 H 126 H (70-110) mg/dL 11/09/24 11/09/24 Range/Units 11:30 16:23 WBC (4.50-10.00) 10*3/uL RBC (4.40-5.60) 10*6/uL Plt Count (140-440) 10*3/uL Eosinophils # (0.04-0.35) 10*3/uL POC Glucose (mg/dL) 187 H 172 H (70-110) mg/dL Assessment and Plan Assessment: * Altered mental status, with global aphasia, impaired comprehension. * Abnormal brain MRI, with evidence of enhancing mass posterior medial region, concerning for neoplasm versus brain abscess. * Abnormal EEG with epileptiform activity over the left posterior parietal temporal region * Left ICA stenosis, severe degree * Hypertension * Diabetes * Hyperlipidemia * Atrial fibrillation, on Eliquis * Coronary artery disease * Osteoarthritis * Ex tobacco use * History of cervical fusion Plan: Patient has presented with acute neurological change with inability to speak, aphasia. Rest of the examination is relatively nonfocal although he did not cooperate at all. MRI of the brain with and without contrast revealed enhancing mass posterior medial left watershed region. Findings is suspicious for neoplasm. An marley tional area of abnormal enhancement extends in a more linear appearance anterior to the anterior horn right lateral ventricle extending into the right frontal lobe white matter. Vascular structure appears to correlate with the prior CT and MRI brain. I personally reviewed MRI, and appears right frontal lesion appears venous angioma. Otherwise agree with enhancing lesion on the left side. Repeat EEG 11/08/2024 revealed presence of epileptiform discharges over the left posterior parietotemporal region, suggestive of focal irritative lesion with underlying cortical irritability. No obvious electrographic seizure was recorded. Background slowing suggestive of moderate encephalopathy. When compared to the EEG from 11/07/2024, there is not much change. In the appropria te clinical setting, partial status is also a possibility. Clinical correlation recommended. Initial EEG 11/07/2024 was severely abnormal because of presence of continuous high amplitude sharp waves over the left hemispheric region, maximal left parietal region, suggestive of focal cortical neuronal dysfunction with underlying cortical irritability and tendency for seizure. No electrographic seizure was recorded. Patient already on Keppra 1500 mg twice daily and Vimpat 200 mg twice daily without any clinical improvement. We will add Dilantin full loading dose. Patient needs to be transferred to higher level of care for neurosurgical co nsultation for brain mass and also for continuous EEG monitoring. 2-D echo revealed LVEF 60 to 65%. Moderately increased septal wall thickness. No obvious regional wall motion abnormalities. Normal left atrial size. No significant valvular dysfunction. CTA head and neck showed: No evidence of dissection of the cervical internal carotid arteries or vertebral arteries. Approximately 80 to 90% stenosis of the proximal left ICA due to extensive calcified atherosclerotic plaque. No e vidence of intracranial high-grade stenosis or intracranial aneurysm. Vascular surgery has seen the patient. They are recommending addressing medical/neurological issues before contemplating any vascular surgery. Fasting a.m. Lipid panel with cholesterol 124, LDL 20, HDL 33 and triglycerides 351. Patient on Lipitor 80 mg daily at home. Hemoglobin A1c 11.5 on 09/03/2024. Recommend optimize control of diabetes to target A1c <7.0 Optimize control of blood pressure. Continue Eliquis, aspirin and statins. Neuro checks as per protocol. Telemetry monitoring rule out any arrhythmia PT, OT, speech therapy DVT prophylaxis: Patient on Eliquis Discussed with patient's nurse. Recommend transfer to higher level of care with above recommendations. Patient accepted, but bed not available at [facility]. Patient has been accepted at [facility] and bed is available. Hopefully transfer later in the evening. Discussed with patient's nurse.
== END 2024-11-09 21:00 | disposition short-term general hospital (02) | DRG 71 ==
LOC: EC 16:13 → 3SCARD 18:57
PROVIDERS: ADMIT Internal Medicine; ATTEND Internal Medicine
DX: G93.89 Other specified disorders of brain (principal); R45.851 Suicidal ideations; R47.01 Aphasia; E11.42 Type 2 diabetes mellitus with diabetic polyneuropathy; I48.0 Paroxysmal atrial fibrillation; I11.9 Hypertensive heart disease without heart failure; I65.22 Occlusion and stenosis of left carotid artery; E11.51 Type 2 diabetes mellitus with diabetic peripheral angiopathy without gangrene; Z79.4 Long term (current) use of insulin; E78.5 Hyperlipidemia, unspecified; I25.10 Atherosclerotic heart disease of native coronary artery without angina pectoris; R33.9 Retention of urine, unspecified; M47.812 Spondylosis without myelopathy or radiculopathy, cervical region; Z82.49 Family history of ischemic heart disease and other diseases of the circulatory system; I25.2 Old myocardial infarction; Z85.46 Personal history of malignant neoplasm of prostate; Z87.891 Personal history of nicotine dependence; Z92.3 Personal history of irradiation; Z95.5 Presence of coronary angioplasty implant and graft; Z79.84 Long term (current) use of oral hypoglycemic drugs; Z79.01 Long term (current) use of anticoagulants; Z79.899 Other long term (current) drug therapy; Z79.82 Long term (current) use of aspirin; Z96.652 Presence of left artificial knee joint; Z96.641 Presence of right artificial hip joint; Z98.1 Arthrodesis status
CPT/HCPCS: 36415; 51798; 70450; 70496; 70498; 70553; 71046; 72125; 74176; 80053; 80061; 80306; 80320; 81001; 82140; 83036; 83735; 84100; 84145; 84443; 84484; 85025; 85610; 85652; 85730; 86140; 87040; 93005; 93306; 95816; 96361; 96374; 96375; 99285